=== PATIENT | male | born 1970 | race Caucasian/White ===

== ENCOUNTER 2024-10-17 05:24 | Emergency (ER) | payer OTHER, SELFPAY ==
[2024-10-17] VITALS (35 sets, daily range): BP systolic 131–175; BP diastolic 82–112; PULSE 84–100; RESP 15–18; TEMP 36.7–37.1; O2SAT 95–98
--- NOTE | ~2024-10-17 | CT_ITS ---
EXAMINATION: CT abdomen pelvis w con DATE: 10/17/2024 06:53 INDICATION: Infraumbilical abdominal pain. TECHNIQUE: Computed tomography (CT) of the abdomen and pelvis was performed with 100 mL Omnipaque 350 intravenous contrast. Automated exposure control and iterative reconstruction technique were employe d. The dose-length product was 625.48 mGy-cm. COMPARISON: None. FINDINGS: The visualized portions of the lung bases demonstrate mild atelectasis. No pleural effusion . The heart size is normal. No pericardial effusion. The liver and spleen are normal. There are galls tones in the gallbladder, which is normal in size. The pancreas and adrenal glands are normal. There are cysts in the kidneys measuring up to 10 mm on the right. There are surgical changes in the bowel including colectomy. There are multiple dilated loops of small bowel without focal transition point. There is a small volume of ascites. There are no pathologically enlarged lymph nodes. There is a tota l left hip arthroplasty. There is severe lumbar spondylosis and mild thoracic spondylosis. There is m ild chronic anterior wedging of multiple thoracic vertebral bodies. IMPRESSION: 1. Dilated small bowel without focal transition point, consistent with adynamic ileus versus partial obstruction. 2. Small volume of ascites. Reviewed, dictated and finalized at location A. [facility]
--- NOTE | 2024-10-17 05:51 | ED_ITS ---
HPI - General Adult General Chief complaint: Abdominal Pain Stated complaint: ABD PAIN Time Seen by Provider: 10/17/24 05:50 Source: patient Mode of arrival: ambulatory Limitations: no limitations History of Present Illness HPI narrative: 54-year-old white male with Crohn's complains of abdominal pain that started around noon time yesterday thinks he is having a Crohn's flare. patient is a 4 5/10 pain diffuse abdomen told to sharp. Started around noon yesterday shows Ca and with some constipation no problems voiding no fever shortness of breath chest pain rash or itching swelling or lumps or bumps dizziness weakness or numbness or any other complaints. Related Data Home Medications ?Medication ?Instructions ?Recorded ?Confirmed ?Last Taken ?Type risankizumab-rzaa 360 mg/2.4 mL mg subcut 10/17/24 Unknown History (150 mg/mL) subcut wearable injector (Skyrizi) testosterone cypionate 200 mg/mL mg 10/17/24 Unknown History intramuscular oil Allergies Allergy/AdvReac Type Severity Reaction Status Date / Time No Known Allergies Allergy Unverified 08/27/15 12:20 Review of Systems Review of Systems: All systems reviewed & are unremarkable except as noted in HPI and below Exam Narrative: ?White male patient with no apparent distress.? Head normocephalic, atraumatic.? Eyes conjunctiva pink sclera nonicteric.? Extraocular movements are intact.? Ears externally normal.? Oropharynx is clear with moist mucous membranes without exudates.? Neck is supple nontender no lymphadenopathy.? Back is nontender.? Lungs are clear.? Heart is regular rate and rhythm without murmurs gallops or rubs.? Chest wall nontender. Abdomen is soft With positive bowel sounds. Midline well-healed surgical scar. Mild periumbilical tenderness without rebound. There is no hepatosplenomegaly or masses no CVA tenderness no abdominal bruits.? Extremities no cyanosis clubbing or edema.? Skin is warm and dry without rashes or lesions.? Neurological patient is alert and oriented x4.? Motor and sensory grossly intact.? Gait is normal. Course Vital Signs Vital signs: Vital Signs Temperature 36.7 C 10/17/24 05:27 Pulse Rate 100 10/17/24 05:27 Respiratory Rate 18 10/17/24 05:27 Blood Pressure 159/107 H 10/17/24 05:27 Pulse Oximetry 95 10/17/24 05:27 Oxygen Delivery Room Air 10/17/24 05:27 Temperature 36.7 C 10/17/24 05:27 Pulse Rate 100 10/17/24 05:27 Respiratory Rate 18 10/17/24 05:27 Blood Pressure 159/107 H 10/17/24 05:27 Pulse Oximetry 95 10/17/24 05:27 Oxygen Delivery Room Air 10/17/24 05:27 Medical Decision Making MDM Narrative Medical decision making narrative: ?Patient placed in room: 1 ? History and physical was performed. CB see CMP UA lipase CT abdomen pelvis with IV contrast ordered. Patient given Toradol 30 mg IV Independent Historian: patient External Source Review: Differential Dx includes but not limited to: Medications were Reviewed: Medications given: Independently Interpreted by me: Shared decision Making: Social Situation Impacting Patients Care: Discussed with at change of shift who will accept care of this pl easant patient. DISCHARGE DIAGNOSIS: DISPOSITION : CONDITION AT DISCHARGE: Vital Signs Vital Signs: Vital Signs Temperature 36.7 C 10/17/24 05:27 Pulse Rate 100 10/17/24 05:27 Respiratory Rate 18 10/17/24 05:27 Blood Pressure 159/107 H 10/17/24 05:27 Pulse Oximetry 95 10/17/24 05:27 Oxygen Delivery Room Air 10/17/24 05:27 Temperature 36.7 C 10/17/24 05:27 Pulse Rate 100 10/17/24 05:27 Respiratory Rate 18 10/17/24 05:27 Blood Pressure 159/107 H 10/17/24 05:27 Pulse Oximetry 95 10/17/24 05:27 Oxygen Delivery Room Air 10/17/24 05:27 Discharge Plan Discharge Patient Language: Azerbaijani Follow-up/Referrals: Pete,MD Jasiel [Primary Care Provider] -
[2024-10-17] MEDS: KETOROLAC 30 MG/ML VIAL (*BKC) IV PUSH (06:08)
[2024-10-17 06:13] LABS: Basophils Absolute Auto 0.03 K/mm3 (0.00-0.10); Basophils Percent Auto 0.3 % (0.0-1.0); Eosinophils Absolute Auto 0.14 K/mm3 (0.02-0.50); Eosinophils Percent Auto 1.2 % (1.0-6.0); Hematocrit 49.9 % (40.0-54.0); Hemoglobin 14.9 g/dL (14.0-18.0); Immature Granulocyte Absolute 0.04 K/mm3 (0.00-0.00); Immature Granulocyte Percent A 0.3 % (0.0-0.0); Lymphocytes Absolute Auto 2.48 K/mm3 (1.10-4.50); Lymphocytes Percent Auto 20.7 % (18.0-42.0); Mean Corpuscular HGB Conc 29.9 g/dL (32-36); Mean Corpuscular Hemoglobin 21.5 pg (27.0-31.0); Mean Corpuscular Volume 71.9 fL (78.0-102.0); Mean Platelet Volume 9.3 fl (8.7-11.0); Monocytes Absolute Auto 0.89 K/mm3 (0.10-0.90); Monocytes Percent Auto 7.4 % (2.0-11.0); Neutrophils Absolute Auto 8.42 K/mm3 (1.70-7.20); Neutrophils Percent Auto 70.1 % (50.0-70.0); Platelet Count Result 317 K/mm3 (150-420); Red Blood Count 6.94 M/mm3 (4.70-6.10); Red Cell Distribution Width 20.1 % (11.6-14.4)
[2024-10-17 06:22] LABS: Partial Thromboplastin Time 25.5 Sec (23.9-30.70); Prothrombin Time 10.6 Seconds (9.50-12.1)
[2024-10-17 06:23] LABS: Alanine Aminotransferase 33 U/L (16-63); Albumin Level 3.7 g/dL (3.4-5.0); Alkaline Phosphatase 79 U/L (46-116); Anion Gap 10 mmol/L (4-12); Aspartate Amino Transferase 12 U/L (15-37); Bilirubin,Total 0.6 mg/dL (0.00-1.00); Blood Urea Nitrogen 16 mg/dL (7-18); Calcium 9.3 mg/dL (8.5-10.1); Carbon Dioxide 28 mmol/L (21-32); Chloride 103 mmol/L (98-108); Estimated CRCL calculation 54 ml/min; Estimated Glomerular Filt Rate 53; Glucose 127 mg/dL (70-99); Lipase 26 U/L (16-77); Osmolality Calculated 295 mOsm/kg (285-295); Sodium 141 mmol/L (136-145); Total Protein 7.6 g/dL (6.4-8.2)
[2024-10-17 06:26] LABS: Lactic Acid Reflex 1.5 mmol/L (0.4-2.0)
--- NOTE | 2024-10-17 07:10 | PC.NURSE ---
REPORT TO JIE HIGHTOWER.
[2024-10-17] MEDS: SODIUM CHLORIDE 0.9% IV 1,000 ML 100 ML IV CONT (07:53)
[2024-10-17] MEDS: MORPHINE SULFATE (*CRX) 2 MG/ML INJ IV PUSH (10:17)
--- NOTE | 2024-10-19 12:49 | PC.NURSE ---
preliminary blood cultures x2 reviewed. no growth to date
--- NOTE | 2024-10-23 12:31 | PC.NURSE ---
FINAL BLOOD CULTURE REPORT; NO GROWTH AFTER 5 DAYS.
--- OUTSIDE RECORDS SUMMARY | 2024-10-24 05:25 | XMS_ITS | Encounter Summary ---
Author Organization [facility] Address [address] [place] [address]. [place] [address] [place] [address] Care Team Providers Care Chief Embalmer Name Role Phone Unavailable Primary Care Provider Unavailabl e Encounter Details Date Type Department Care Team (Late st Contact Info) Description 03/23/[address] 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
--- OUTSIDE RECORDS SUMMARY | 2024-10-24 05:25 | XMS_ITS | Encounter Summary ---
Author Organization [facility] Address [address] [place] [address]. [place] [address] [place] [address] Care Team Providers Care Client Service Manager Name Role Phone Jasiel Moise MD Primary Care Provider Aaron Quinones MD Unavailable [phone] JoanieAnthonyAnnette MD Unavailable Reason for Visit * Auth/Cert Specialty Diagnoses / Procedures Referred By Lambert pizarro Referred To Contact Diagnoses DEVIATED SEPTUM, TURBINATE HYPERTROPHY, CHRONIC SINUSITIS J34.2 J34.3 J32.0 Procedures FUSION GUIDED BILATERAL ETHMOIDECTOMY, BILATERAL MAXILLARY ANTROSTOMY, BILATERAL TURBINATE REDUCTION, SEPTOPLASTY Referral ID Status Reason Start Date Expiration Date Visits Re quested Visits Authorized [id number] 1 1 Encounter Details Date Type Department Care Team (Latest Contact Info) Description 01/03/2020 7:21 AM CDT - 01/03/2020 1:19 PM T Hospital Encounter [facility] [place] [address] Aaron Quinones MD [address] [place] [id number] Discharge Disposition: Home or Self Care (Routine Discharge) Social History Tobacco Use Types Packs/Day Years Used Date Smoking Tobacco: Former Cigarettes 0 12/25/1990 - 12/25/2010 Smokeless Tobacco: Never Alcohol Use Standard Drinks/Week Comments Yes 3 (1 standard drink = 0.6 oz pur e alcohol) Sex and Gender Information Value Date Recorded Sex Assigned at Not on file Legal Sex Male 5:59 PM UNDERWRITING ACCOUNT REPRESENTATIVE Gender Identity Not on file Sexual Orientation Not on file documented as of this encounter Last Filed Vital Signs Vital Sign Reading Time Taken Comments Blood Pressure 144/84 01/03/2020 1:14 PM CDT Pulse 80 01/03/2020 1:14 PM CDT Temperature 37.1 ??C (98.7 ??F) 01/03/2020 1:14 PM CD T Respiratory Rate 16 01/03/2020 1:14 PM CDT Oxygen Saturation 94% 01/03/2020 1:14 PM CDT Inhaled Oxygen Concentration - - Weight 82.4 kg (181 lb 10.5 oz) 01/03/2020 7:53 AM CDT Height 175.3 cm (5' 9 ) 01/03/2020 7:53 AM CDT Body Mass Index 26.83 01/03/2020 7:53 AM CDT documented in this encounter Discharge Instructions * Discharge Instructions* Brittney Bailey RN - 01/03/2020 11:25 AM CDT Use nasal saline spray 2-3 times daily for 7-10 days Switch to regular acetaminophen when able Office will call you for follow up appointment in 5-7 days SINUS SURGERY INSTRUCTIONS Do not bend at waist No nose blowing/picking No heavy lifting Avoid using straws Sneeze with your mouth open Change drip pad as needed Avoid injury to nose Ice as needed for pain Because you had anesthesia NO DRIVING FOR 24 HRS/ OR WHILE TAKING NARCOTIC PAIN MEDICATION NO ALCOHOL, NO OPERATING MACHINERY, DO NOT SIGN ANY BINDING CONTRACTS FOR 24 HOURS/ OR WHILE TAKINGNARCOTIC PAIN MEDICATION TAKE PAIN MEDICINE WITH FOOD USE STOOL SOFTENER WHILE ON NARCOTICS AVOID GREASY, FRIED OR SPICY FOODS MUST HAVE A RESPONSIBLE ADULT STAY WITH YOU FOR THE REST OF TODAY AND TONIGHT If you have chest pain, shortness of breath, excessive bleeding or drainage, if you cannot hold down anything to eat or drink, or if you cannot urinate, please call 911 or go to the nearest emergencyroom. If you have fever, pain not controlled by your medication, signs of infection such as redness or discharge or swelling at the site, or any other questions or concerns, please call your surgeon. * Attachments The following attachments cannot be sent through Care Everywhere. * Turbinate Reduction Discharge Instructions (Tristanian) * Septoplasty Discharge Instructions (Tristanian) * Endoscopic Sinus Surgery Discharge Instructions (Tristanian) * General Anesthesia Discharge Instructions (Tristanian) * Hydrocodone and Acetaminophen, ADULT (Tristanian) documented in this encounter Medications at Time of Discharge diphenoxylate-atr opine 2.5-0.025 MG tablet Take 1 tablet by mouth every 6 (six) hours as needed. 11/13/2019 hydrocodone-aceta minophen (NORCO) 5-325 MG tabletIndications :Acute Pain < 7 Day Supply Take 1 tablet by mouth every 4 (four) hours as needed for Pain. Indications: Acute Pain < 7 Day Supply 20 tablet 01/03/2020 ibuprofen 600 MG tablet Take 600 mg by mouth every 6 (six) hours as needed for Pain. testosterone cypionate 200 MG/ML injection Inject 0.75 mLs into the muscle weekly. On monday03/19/2019 valACYclovir 1 g tablet Take 1 tablet by mouth daily as needed. 3 02/21/2019 vedolizumab (ENTYVIO) 300 MG injection Inject 300 mg into the vein Once every eight weeks. 11/26/2018 vitamin D2, ergocalciferol, [address]7401 UNITS capsule Take 1 capsule by mouth monthly. 2 02/21/2019 zolpidem 5 MG tablet Take 1 tablet by mouth nightly as needed. 0 01/25/2019 documented as of this encounter H&P Notes * Aaron Quinones MD - 01/03/2020 7:34 AM CDT Attending Provider: Aaron Quinones MD PCP: JASIEL MOISE MD Edgardo Elkins is an 49-year-old male deviated septum, sinus infections. Reason for Admission: * No active hospital problems. * HPI: See above. Past Medical History: Diagnosis Date ??? Asthma as child ??? Deviated septum ??? JERRELL (obstructive sleep apnea) mild, positional per sleep study 11/05/18 ??? Ulcerative colitis (CMS/HCC) ??? Wears glasses and contacts Allergies: Allergies Allergen Reactions ??? Infliximab Sneezing flushed face Social History Tobacco Use ??? Smoking status: Former Smoker Years: 20.00 Types: Cigarettes Last attempt to quit: 12/25/2010 Years since quittin.0 ??? Smokeless tobacco: Never Used Substance Use Topics ??? Alcohol use: Yes Alcohol/week: 3.0 standard drinks Types: 3 Standard drinks or equivalent per week Past Surgical History: Procedure Laterality Date ??? ILEOSTOMY and reversal ??? JOINT REPLACEMENT Left 2017 hip Family History Problem Relation Name Age of Onset ??? Hypertension Mother ??? Heart Disease Father Travel Exposure: No current facility-administered medications on file prior to encounter. Current Outpatient Medications on File Prior to Encounter Medication Sig ??? ibuprofen 600 MG tablet Take 600 mg by mouth every 6 (six) hours as needed for Pain. ??? vedolizumab (ENTYVIO) 300 MG injection Inject 300 mg into the vein Once every eight weeks. ??? testosterone cypionate 200 MG/ML injection Inject 0.75 mLs into the muscle weekly. On monday ??? valACYclovir 1 g tablet Take 1 tablet by mouth daily as needed. ??? vitamin D2, ergocalciferol, 69584 UNITS capsule Take 1 capsule by mouth monthly. ??? zolpidem 5 MG tablet Take 1 tablet by mouth nightly as needed. Active Problems: * No active hospital problems. * Height 5' 9 (1.753 m), weight 83.9 kg (185 lb). No results found for this visit on 01/03/20. No results found. Labs Reviewed - No data to display Microbiology Results (last 14 days) No results found for the last 336 hours. ROS negative Physical Exam deviated septum. Otherwise negative Assessment: Deviated septum, chronic sinusitis Plan: Septoplasty, turbinoplasty, bilateral maxillary antrostomy and ethmoidectomy. Refer to outpatient HP for full details. AARON QUINONES MD 01/03/2020 documented in this encounter Nursing Notes * Sujata Diallo RN - 01/03/2020 10:11 AM CDT Family updated during the procedure via DJZ fang. documented in this encounter OR Notes * Op Note - Aaron Quinones MD - 01/03/2020 11:01 AM CDT FUSION GUIDED BILATERAL ETHMOIDECTOMY, BILATERAL MAXILLARY ANTROSTOMY, BILATERAL TURBINATE REDUCTION, SEPTOPLASTY Procedure Note Edgardo Elkins 01/03/2020 Surgeon(s): Aaron Quinones MD Supervisor Inspection And Testing: None Pre-Op Diagnosis: DEVIATED SEPTUM, TURBINATE HYPERTROPHY, CHRONIC SINUSITIS J34.2 J34.3 J32.0 Post-Op Diagnosis: Same Procedure(s): FUSION GUIDED BILATERAL ETHMOIDECTOMY, BILATERAL MAXILLARY ANTROSTOMY, BILATERAL TURBINATE REDUCTION, SEPTOPLASTY Anesthesia: General Findings: Bilateral purulent maxillary sinusitis, left septal deviation Complications: None Estimated Blood Loss: 50ml Specimens: None Implants: None Procedure Description: After obtaining informed consent and proper site verification the patient was brought to the operating room and placed on the operating table in the supine position. They were placed under general endotracheal anesthesia by the anesthesia provider. Image guidance was calibrate d and used throughout the case. Afrin soaked cottonoids were then placed bilaterally and the patient was prepped and draped for endoscopic sinus surgery. A timeout was performed and the correct patient and procedure were verified. The nasal cavity was injected with 1% lidocaine with 1-100,000 epinephrine and packed with afrin-soaked cottonoid pledgets. Attention was then directed to the nasal septum. A hemitransfixion incision was made in the left caudal septum and a mucoperichondrial flap was elevated in the usual fashion. The flap was elevated under endoscopic visualization and the remainder of the case was performed with endoscopic assistance.Using a D-knife, an incision was made through the cartilaginous septum with care to preserve the appropriate caudal and dorsal ???L-strut?? of cartilage. The cartilage was then disarticulated from the bony-cartilaginous junction and the deviated cartilage was removed. Further deviated bone and cartilage was removed from the maxillary crest and posterior bony septum with care to avoid injury to the mucoperichondrial flap using a combination of dissection and Yuliet forceps. Next, attention directed to the right sinuses. A ruth probe was used to reflect the uncinate process anteriorly and the maxillary ostia was identified and entered. A backbiter and microdebrider was then used to perform uncinectomy and maxillary antrostomy. Using the microdebrider, the bulla ethmoidalis was then entered and opened up. The posterior ethmoid space was then opened into with microdebrider to the base of the sphenoid. The right maxillary sinus was infected with purulent fluid and lavage performed to irrigate. In an identical fashion, the left nasal passage was injected with lidocaine w/ epinephrine, and themaxillary antrostomy and anterior ethmoidectomy were performed. The left maxillary sinus had an accessory os that was connected to the natural ostia to prevent circular flow. Once both sinus passageswere completed, the inferior turbinate were reduced submucosally using microdebrider. Outfracture was then performed with a freer. Nasopore was placed in the ethmoid cavity bilaterally. Once this was completed, the hemitransfixion incision was closed using simple interrupted 4-0 chromic suture. A quilting stitch to reapproximate the mucoperichondrial flaps was then placed using 4-0 plain gut suture on a Austen needle. Tidwell splints covered in mupirocin ointment were placed in the nasal cavity and secured to the membranous septum using a 3-0 Prolene suture. An gil- gastric tube wasused to decompress the stomach and care of the patient was handed over to anesthesia. The patient was awakened from general anesthesia extubated in the operating room, and transported to the recoveryroom in stable condition without complication. AARON QUINONES MD Date: 01/03/2020 Time: 11:01 AM * Brief Op Note - Aaron Quinones MD - 01/03/2020 11:00 AM CDT [facility] Brief Op HSHSFUSION GUIDED BILATERAL ETHMOIDECTOMY, BILATERAL MAXILLARY ANTROSTOMY, BILATERAL TURBINATE REDUCTION, SEPTOPLASTY Procedure Note Edgardo Palomino Brittni 01/03/2020 0900 Procedure(s) (LRB): FUSION GUIDED BILATERAL ETHMOIDECTOMY, BILATERAL MAXILLARY ANTROSTOMY, BILATERAL TURBINATE REDUCTION, SEPTOPLASTY (N/A) Surgeon(s): Aaron Quinones MD Supervisor Inspection And Testing: None Anesthesia: General Pre-Op Diagnosis: DEVIATED SEPTUM, TURBINATE HYPERTROPHY, CHRONIC SINUSITIS J34.2 J34.3 J32.0 Post-Op Diagnosis: Same Findings: Bilateral purulent maxillary sinusitis, left septal deviation Estimated Blood Loss: 50ml Specimens: ID Type Source Tests Collected by Time A : Right Sinus Contents TISSUE OTHER (type in comments) PATHOLOGY Aaron Quinones MD 01/03/2020 1010 B : Left Sinus Contents TISSUE OTHER (type in comments) PATHOLOGY Aaron Quinones MD 01/03/2020 1011 AARON QUINONES MD Date: 01/03/2020 Time: 11:00 AM * OR PreOp - Theresa Wilson CNP - 12/26/2019 1:59 PM CST Chart reviewed. Per phone interview, patient denies any SOB/CP with 2 FOS or recent changes in activity tolerance in past 6 months. 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 Pt states he woke up combative after first surgery he had. Echo 06/19/19 Sinus rhythm. Borderline concentric left ventricular hypertrophy. Overall left ventricular systolicfunction normal with an EF between 50-55%. Diastolic filling normal. Right ventricle normal in sizeand function. Left atrium mildly dilated. Right atrium not well visualized. Aortic valve is trileaflet, appears structurally normal. No aortic stenosis or regurgitation. Normal mitral valve, tricuspid valve, and pulmonic valve. Aortic root, ascending aorta and aortic arch normal. Pericardium is normal. Exercise treadmill stress test 05/29/19 Normal exercise treadmill stress test with no chest pain. Mooney treadmill score is 12. Cosigned by Thor Leach MD at 12/27/2019 6:54 AM UNDERWRITING ACCOUNT REPRESENTATIVE RWRITING ACCOUNT REPRESENTATIVE RWRITING ACCOUNT REPRESENTATIVE * OR PreOp - Philly aMrques RN - 12/26/2019 12:51 PM CST Patient can climb 2 flights of stairs without chest pain or sob. Exercise tolerance the same as it was 6 months ago. Had stress test maybe last year and echo- due to was having sob/drainage from sinus'- all normal-somewhere in ilir- requested results from pcp See cardiac records- media pcp-neptali Cardio-none States woke up combative after first surgery he had RWRITING ACCOUNT REPRESENTATIVE RWRITING ACCOUNT REPRESENTATIVE RWRITING ACCOUNT REPRESENTATIVE documented in this encounter Plan of Treatment Not on file documented as of this encounter Procedures Procedure Name Priority Date/Time Associated Diagnosis Comments ENDOSCOPIC SINUS SURGERY (SINUSCOPY) 01/03/2020 9:38 AM CDT DEVIATED SEPTUM, TURBINATE HYPERTROPHY, CHRONIC SINUSITIS J34.2 J34.3 J32.0 Case Notes SCHED BY FAX ON 12/17/19 [facility] PHONE ASSESS Special Needs FUSION PROTOCOL, MICRODEBRIDER documented in this encounter Visit Diagnoses Not on filedocumented in this encounter Administered Medications Inactive Administered Medications - up to 3 most recent administrations Medication Order MAR Action Action Date Dose Rate Site fentaNYL (SUBLIMAZE) injection 25 mcg 25 mcg, Intravenous, Every 5 min PRN, Other, Moderate pain (Scale 4-7), 4 doses, Starting on Mon01/03/20 at 1105, Until Mon01/03/20 at 1231, Maximum cumulative dose 100 mcg. Do not administer if patient is overly sedated, SpO2 less than 90%, or Respiratory Rate less than 12. If more than one IV analgesic is ordered per pain level, use in this order: fentaNYL, morphine, HYDROmorphone. If desired pain control is not reached, move to next ordered medication at next dosing interval., PACU Given 01/03/2020 11:44 AM CDT 25 mcg hydrocodone-acetaminophen (NORCO) 5-325 MG tablet 1 tablet 1 tablet, Oral, Once as needed, Mild pain (Scale 1 - 3), 1 dose, Starting on Mon01/03/20 at 1105, Until Mon01/03/20 at 1145, Do not administer if patient is overly sedated, SpO2 less than 90%, or Respiratory Rate less than 12., PACU Given 01/03/2020 11:45 AM CDT 1 tablet lactated ringers infusion at 10 mL/hr, Intravenous, Once, 1 dose, On Mon01/03/20 at 0830 New Bag 01/03/2020 8:15 AM CDT 10 mL/hr lactated ringers infusion at 10 mL/hr, Intravenous, Continuous, Starting on Mon01/03/20 at 0900, Until Mon01/03/20 at 1525, Not to be given to patients with end stage renal disease or dialysis. Infuse at TKO rate, Pre-Op New Bag 01/03/2020 8:05 AM CDT lactated ringers infusion at 100 mL/hr, Intravenous, Continuous, Starting on Mon01/03/20 at 1130, Until Mon01/03/20 at 1525, PACU ondansetron (ZOFRAN-ODT) disintegrating tablet 4 mg 4 mg, Oral, Once, 1 dose, On Mon01/03/20 at 0830 Given 01/03/2020 8:20 AM CDT 4 mg oxymetazoline (AFRIN) 0.05 % nasal spray 2 spray 2 spray, Each Nostril, body recall instructor to O.R., 1 dose, First dose on Mon01/03/20 at 0745, Pre-Op Given 01/03/2020 8:13 AM CDT 2 sprays documented in this encounter Active and Recently Administered Medications Times are shown in CDT. Scheduled Medication Order 01/01/2020 01/02/2020 01/03/2020 ceFAZolin (ANCEF) 2 g in sodium chloride 0.9 % 100 mL IVPB (COMPLETED) 2 g, Intravenous, at 200 mL/hr, body recall instructor to O.R., 1 dose, First dose on Mon01/03/20 at 0745, Pre-Op 1000 (New Bag - Prov ider: Bonifacio Craven CRNA)1005 (Infusion Stop Time - Provider: Bonifacio Craven CRNA)1120 (Anesthesia Volume Adjustment - Provider: Bonifacio Craven CRNA) lactated ringers infusion (COMPLETED) at 10 mL/hr, Intravenous, Once, 1 dose, On Mon01/03/20 at 0830 0815 (New Bag - Prov ider: Kitty Evans RN) ondansetron (ZOFRAN-ODT) disintegrating tablet 4 mg (COMPLETED) 4 mg, Oral, Once, 1 dose, On Mon01/03/20 at 0830 0820 (Given - Provid er: Kitty Evans RN) oxymetazoline (AFRIN) 0.05 % nasal spray 2 spray (COMPLETED) 2 spray, Each Nostril, body recall instructor to O.R., 1 dose, First dose on Mon01/03/20 at 0745, Pre-Op 0813 (Given - Provid er: Kitty Evans RN) Continuous Medication Order 01/01/2020 01/02/2020 01/03/2020 lactated ringers infusion at 10 mL/hr, Intravenous, Continuous, Starting on Mon01/03/20 at 0900, Until Mon01/03/20 at 1525, Not to be given to patients with end stage renal disease or dialysis. Infuse at TKO rate, Pre-Op 0805 (New Bag - Prov ider: Bonifacio Craven CRNA)1120 (Anesthesia Volume Adjustment - Provider: Bonifacio Craven CRNA) lactated ringers infusion at 100 mL/hr, Intravenous, Continuous, Starting on Mon01/03/20 at 1130, Until Mon01/03/20 at 1525, PACU 1130 (Canceled Entry - Provider: Automatic Discharge Provider - Comment: Automatically canceled at discontinue of medication order) PRN Medication Order 01/01/2020 01/02/2020 01/03/2020 fentaNYL (SUBLIMAZE) injection 25 mcg (CANCELED) 25 mcg, Intravenous, Every 5 min PRN, Other, Moderate pain (Scale 4-7), 4 doses, Starting on Mon01/03/20 at 1105, Until Mon01/03/20 at 1231, Maximum cumulative dose 100 mcg. Do not administer if patient is overly sedated, SpO2 less than 90%, or Respiratory Rate less than 12. If more than one IV analgesic is ordered per pain level, use in this order: fentaNYL, morphine, HYDROmorphone. If desired pain control is not reached, move to next ordered medication at next dosing interval., PACU 1144 (Given - Provid er: Ada Waterman RN) hydrocodone-acetaminophen (NORCO) 5-325 MG tablet 1 tablet (COMPLETED) 1 tablet, Oral, Once as needed, Mild pain (Scale 1 - 3), 1 dose, Starting on Mon01/03/20 at 1105, Until Mon01/03/20 at 1145, Do not administer if patient is overly sedated, SpO2 less than 90%, or Respiratory Rate less than 12., PACU 1145 (Given - Provid er: Ada Waterman RN) lidocaine-EPINEPHrine 1 %-1:[id number] injection (CANCELED) As needed, Starting on Mon01/03/20 at 1050, Until Mon01/03/20 at 1113, Intra-Op 1050 (Given - Provid er: Aaron Quinones MD) mupirocin (BACTROBAN) 2 % ointment (CANCELED) As needed, Starting on Mon01/03/20 at 1051, Until Mon01/03/20 at 1113, Intra-Op 1051 (Given - Provid er: Aaron Quinones MD - Comment: APPLIED TO TIDWELL SPLINT) oxymetazoline (AFRIN) 0.05 % nasal spray (CANCELED) As needed, Starting on Mon01/03/20 at 0930, Until Mon01/03/20 at 1113, Intra-Op 0930 (Given - Provid er: Sujata Diallo RN - Comment: Patient was instructed to self-administer in each nostril two sprays) oxymetazoline (AFRIN) 0.05 % nasal spray (CANCELED) As needed, Starting on Mon01/03/20 at 1010, Until Mon01/03/20 at 1113, Intra-Op 1010 (Given - Provid er: Aaron Quinones MD - Comment: 30 ml used to soak cottonoids) sodium chloride 0.9% infusion (COMPLETED) Continuous PRN, Starting on Mon01/03/20 at 1045, Until Mon01/03/20 at 1045, Intra-Op 1045 (New Bag - Prov ider: Aaron Quinones MD - Comment: Irrigation) documented in this encounter Care Teams Client Service Manager Relationship Specialty Start Date End Date Jasiel Moise MD [address] [place] [phone] PCP - General FAMILY PRACTICE 04/04/19 Aaron Quinones MD [address] [place], [place] [id number] OTOLARYNGOLOGY 12/26/19 Annette Sena MD [address] [place] [phone] INTERNAL MEDICINE 12/26/19 documented as of this encounter
--- OUTSIDE RECORDS SUMMARY | 2024-10-24 05:25 | XMS_ITS | Continuity of Care Document ---
Author Name [facility] Organization [facility] Care Team Providers Care Medical Art Therapist Name Role Phone [facility] Unavailable Unavailable Plan of Care List of future care activities from [facility] Affairs facilities. Additional future care activities may be listed in the Assessment and Plan section. Date/Time Care Activity Care Activity Detail Facili ty 11/12/2024 AMBULATORY - MEDICINE AMBULATORY - MEDICI [facility]
--- OUTSIDE RECORDS SUMMARY | 2024-10-24 05:25 | XMS_ITS | Encounter Summary ---
Author Organization [facility] Address [address] [place] [address]. [place] [address] [place] [address] Care Team Providers Care Apparatus Lineman Name Role Phone Jasiel Freeman MD Primary Care Provider Nils Pineda MD Unavailable [phone] JoanieAnthonyAnnette MD Unavailable Reason for Visit * Auth/Cert Specialty Diagnoses / Procedures Referred By Lambert pizarro Referred To Contact Diagnoses DEVIATED SEPTUM, TURBINATE HYPERTROPHY, CHRONIC SINUSITIS J34.2 J34.3 J32.0 Procedures FUSION GUIDED BILATERAL ETHMOIDECTOMY, BILATERAL MAXILLARY ANTROSTOMY, BILATERAL TURBINATE REDUCTION, SEPTOPLASTY Referral ID Status Reason Start Date Expiration Date Visits Re quested Visits Authorized [id number] 1 1 Encounter Details Date Type Department Care Team (Latest Contact Info) Description 01/03/2020 7:21 AM CDT - 01/03/2020 11:59 PM T Hospital Encounter [facility] [place] [address] Nils Pineda MD [address] [place] [phone] Discharge Disposition: Home or Self Care (Routine Discharge) Social History Tobacco Use Types Packs/Day Years Used Date Smoking Tobacco: Former Cigarettes 0 12/25/1990 - 12/25/2010 Smokeless Tobacco: Never Alcohol Use Standard Drinks/Week Comments Yes 3 (1 standard drink = 0.6 oz pur e alcohol) Sex and Gender Information Value Date Recorded Sex Assigned at Not on file 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 11/26/2018 vitamin D2, ergocalciferol, 83806 UNITS capsule Take 1 capsule by mouth monthly. 2 02/21/2019 zolpidem 5 MG tablet Take 1 tablet by mouth nightly as needed. 0 01/25/2019 documented as of this encounter Plan of Treatment Not on file documented as of this encounter Procedures Procedure Name Priority Date/Time Associated Diagnosis Comments BASIC METABOLIC PANEL Routine 01/03/2020 7:31 AM CDT Preop examination CBC W/DIFF AUTOMATED Routine 01/03/2020 7:31 AM CDT Preop examination documented in this encounter Results * (ABNORMAL) BASIC METABOLIC PANEL (01/03/2020 7:31 AM CDT) GLUCOSE 91 70 - 99 MG/DL 01/03/2020 8:00 AM CDT [facility] BUN 14 7 - 18 MG/DL 01/03/2020 8:00 AM CDT [facility] CREATININE S/P/B 1.33(H) 0.7 - 1.3 MG/DL 01/03/2020 8:00 AM CDT [facility] SODIUM S/P/B 138 136 - 145 MMOL/L 01/03/2020 8:00 AM CDT [facility] POTASSIUM S/P/B 4.4 3.5 - 5.1 MMOL/L 01/03/2020 8:00 AM T [facility] CHLORIDE S/P/B 108 100 - 108 MMOL/L 01/03/2020 8:00 AM CDT [facility] CO2 27.7 21 - 32 MMOL/L 01/03/2020 8:00 AM CDT [facility] CALCIUM S/P/B 8.7 8.5 - 10.1 MG/DL 01/03/2020 8:00 AM T [facility] ANION GAP 2.3(L) 5 - 15 MMOL/L 01/03/2020 8:00 AM T [facility] BUN CREATININE RATIO 10.5 6 - 26 01/03/2020 8:00 AM T [facility] EGFR NON-AFR. AMER. 62(L) >90 ML/MIN/1.7 3 M2 01/03/2020 8:00 AM T [facility] EGFR AFR. AMER. 72(L) >90 ML/MIN/1.7 3 M2 01/03/2020 8:00 AM T [facility] Comment: NOTE: eGFR is not calculated for patients <18 years of age. This is an estimated GFR (CKD EPI) and should not be used for calculating drug doses. 01/03/2020 7:31 AM CDT Theresa Wilson [facility] Final Resu lt [facility] [address] [place] [address], [place] [phone] * (ABNORMAL) CBC W/DIFF AUTOMATED (01/03/2020 7:31 AM CDT) [facility] WBC 6.9 4.5 - 11.0 x10'3/uL 01/03/2020 7:42 AM CDT [facility] RBC 6.17(H) 4.70 - 6.10 x10'6/uL 01/03/2020 7:42 AM CDT [facility] HGB 16.6 14.0 - 18.0 G/DL 01/03/2020 7:42 AM CDT [facility] HCT 52.6 43.0 - 54.0 % 01/03/2020 7:42 AM CDT [facility] MCV 85.3 80.0 - 94.0 FL 01/03/2020 7:42 AM CDT [facility] MCH 26.9(L) 27.0 - 31.0 PG 01/03/2020 7:42 AM CDT [facility] MCHC 31.6(L) 32.0 - 36.0 G/DL 01/03/2020 7:42 AM CDT [facility] RDW 13.7 11.5 - 14.5 % 01/03/2020 7:42 AM CDT [facility] PLT 343 130 - 400 x10'3/uL 01/03/2020 7:42 AM CDT [facility] MPV 9.8 9.3 - 12.2 FL 01/03/2020 7:42 AM CDT [facility] DIFFERENTIAL TYPE AUTOMATED DIFFERENTIAL 01/03/2020 7:42 AM CDT [facility] NEUTROPHILS % 68.1 % 01/03/2020 7:42 AM CDT [facility] LYMPHOCYTES % 18.8 % 01/03/2020 7:42 AM CDT [facility] MONOCYTES % 9.3 % 01/03/2020 7:42 AM CDT [facility] EOSINOPHILS 2.8 % 01/03/2020 7:42 AM CDT [facility] BASOPHILS 0.9 % 01/03/2020 7:42 AM CDT [facility] IMMATURE GRANS % 0.1 % 01/03/20 20 7:42 AM CDT [facility] ABS. NEUTROPHILS TOTAL 4.67 1.80 - 7.70 x10'3/uL 01/03/2020 7:42 AM CDT [facility] ABS. LYMPHOCYTES 1.29 1.00 - 4.80 x10'3/uL 01/03/2020 7:42 AM CDT [facility] ABS. MONOCYTES 0.64 0.30 - 0.82 x10'3/uL 01/03/2020 7:42 AM CDT [facility] ABS. EOSINOPHILS 0.19 0.04 - 0.54 x10'3/uL 01/03/2020 7:42 AM CDT [facility] ABS. BASOPHILS 0.06 0.01 - 0.08 x10'3/uL 01/03/2020 7:42 AM CDT [facility] ABS. IMMATURE GRANULOCYTES 0.01 0.00 - 0.49 x10'3/uL 01/03/2020 7:42 AM CDT [facility] 01/03/2020 7:31 AM CDT us Theresa Wilson [facility] Final Resu lt [facility] [address] [place] [address], [place] [phone] documented in this encounter Visit Diagnoses Diagnosis Preop examination Preoperative examination, unspecified documented in this encounter Care Teams Apparatus Lineman Relationship Specialty Start Date End Date Jasiel Freeman MD [address] [place] [phone] PCP - General FAMILY PRACTICE 04/04/19 Nils Pineda MD [address] [facility] [place] [place] [address] OTOLARYNGOLOGY 12/26/19 Annette Sena MD [facility] [facility] [place] [address] INTERNAL MEDICINE 12/26/19 documented as of this encounter
--- OUTSIDE RECORDS SUMMARY | 2024-10-24 05:25 | XMS_ITS | Encounter Summary ---
Author Organization [facility] Address [facility]. [place], [place] [address] [place] [address] Care Team Providers Care Motor Operator Name Role Phone Jasiel Freeman MD Primary Care Provider [phone]- [phone] Reason for Referral * (Routine) - Closed Specialty Diagnoses / Procedures Referred By Lambert pizarro Referred To Contact Diagnoses Dyspnea on exertion Procedures Spirometry with bronchodilator Jasiel Freeman MD [address] [place] [phone] Phone: tel: fax: Referral ID Status Reason Start Date Expiration Date Visits Re quested Visits Authorized [id number] Closed 04/17/2019 05/17/2020 1 1 Reason for Visit * Procedure (Routine) - Closed Specialty Diagnoses / Procedures Referred By Lambert pizarro Referred To Contact Diagnoses Dyspnea on exertion Procedures Complete PFT (pre/post [place], Lung Vol, Diff Capacity) (70650, 62861, 32460, 07330) Jasiel Freeman MD [address] [place] [phone] Phone: tel: fax: [place] [address] Phone: tel: Referral ID Status Reason Start Date Expiration Date V isits Requested Visits Authorized [id number] Closed Pulmonary Function Test 04/04/2019 05/04/2020 1 1 Encounter Details Date Type Department Care Team (Latest Contact Info) Description 04/17/2019 8:00 AM CDT - 04/17/2019 11:59 PM CDT Hospital Encounter [place] [address] [place] [address] Jasiel Freeman MD [address] [place] [phone] Discharge Disposition: Home or Self Care (Routine Discharge) Social History Tobacco Use Types Packs/Day Years Used Date Smoking Tobacco: Never Assessed Sex and Gender Information Value Date Recorded Sex Assigned at Not on file Legal Sex Male 5:59 PM [employer] Gender Identity Not on file Sexual Orientation Not on file documented as of this encounter Last Filed Vital Signs Vital Sign Reading Time Taken Comments Blood Pressure - - Pulse - - Temperature - - Respiratory Rate - - Oxygen Saturation - - Inhaled Oxygen Concentration - - Weight 86.6 kg (190 lb 15 oz) 04/17/2019 8:39 AM CDT Height 175.3 cm (5' 9 ) 04/17/2019 8:39 AM CDT Body Mass Index 28.2 04/17/2019 8:39 AM CDT documented in this encounter Medications at Time of Discharge testosterone cypionate 200 MG/ML injection Inject 0.75 mLs into the muscle weekly. On monday03/19/2019 valACYclovir 1 g tablet Take 1 tablet by mouth daily as needed. 3 02/21/2019 vedolizumab (ENTYVIO) 300 MG injection Inject 300 mg into the vein Once every eight weeks. 11/26/2018 vitamin D2, ergocalciferol, 48700 UNITS capsule Take 1 capsule by mouth monthly. 2 02/21/2019 zolpidem 5 MG tablet Take 1 tablet by mouth nightly as needed. 0 01/25/2019 documented as of this encounter Plan of Treatment Not on file documented as of this encounter Procedures Procedure Name Priority Date/Time Associated Diagnosis Comments PULMONARY FUNCTION TEST Routine 05/13/20 4:41 PM CDT Dyspnea on exertion SPIROMETRY WITH BRONCHODILATOR Routine 04/17/2019 11:51 AM CDT Dyspnea on exertion documented in this encounter Results * Complete PFT (pre/post [place], Lung Vol, Diff Capacity) (09341, 15260, 07091, 23381) (05/13/2019 4:41 PM CDT) 05/13/2019 4:41 PM CDT Narrative ESCRIPTION - 05/18/2019 10:29 AM CDT DIAGNOSIS: ??Shortness of breath. PROCEDURE: ??Spirometry before and after bronchodilators. Baseline spirometry shows mild airway obstruction. ??FEV1 is 2.95 liters or 79%, FVC is 94%, and FEV1/FVC of 0.69. ??With the bronchodilators, patient has a good response. ??FEV1 improved to 3.31 liters. ??This is a 12% improvement, overall consistent with mild airway obstruction with good response to bronchodilators. CONCLUSION: ??Spirometry is acceptable and reproducible, overall consistent with mild airway obstruction. ??Baseline FEV1 is 79%, good response to bronchodilators. ??FEV1 improved by 12%. ?? Clinical correlation is required. Celia Mckenzie MD [employer] [facility] D: ??05/13/2019 04:41 PM #[id number] T: ??05/13/2019 07:00 PM /NTS us Jasiel Freeman MD PFT ORDERABLES Final Resul t ESCRIPTION documented in this encounter Visit Diagnoses Diagnosis Dyspnea on exertion Other dyspnea and respiratory abnormality documented in this encounter Administered Medications Inactive Administered Medications - up to 3 most recent administrations Medication Order MAR Action Action Date Dose Rate Site albuterol (PROVENTIL) (2.5 MG/3ML) 0.083% nebulizer solution 2.5 mg 2.5 mg, Nebulization, Once, 1 dose, On Mon04/17/19 at 0900 Given 04/17/2019 9:09 AM CDT 2.5 mg documented in this encounter Care Teams Motor Operator Relationship Specialty Start Date End Date Jasiel Freeman MD [address] [place] [phone] PCP - General FAMILY PRACTICE 04/04/19 documented as of this encounter
--- OUTSIDE RECORDS SUMMARY | 2024-10-24 05:25 | XMS_ITS | Encounter Summary ---
Author Organization [facility] Address [facility] [place] [address] [place] [address] Care Team Providers Care Real Estate Legal Secretary Name Role Phone Jasiel Freeman MD Primary Care Provider [phone]- [phone] Reason for Referral * Procedure (Routine) - Closed Specialty Diagnoses / Procedures Referred By Contac t Referred To Contact Diagnoses Dyspnea on exertion Procedures Complete PFT (pre/post [place], Lung Vol, Diff Capacity) (72158, 71466, 83122, 67411) Jasiel Freeman MD [address] [place] [phone] Phone: tel: fax: [address] [address] Phone: tel: Referral ID Status Reason Start Date Expiration Date V isits Requested Visits Authorized [id number] Closed Pulmonary Function Test 04/04/2019 05/04/2020 1 1 Encounter Details Date Type Department Care Team (Late st Contact Info) Description 04/04/2019 Transcribe Orders [facility] Pre Access Team [address] [place] [address] Jasiel Freeman MD [address] [place] [phone] Social History Tobacco Use Types Packs/Day Years Used Date Smoking Tobacco: Never Assessed Sex and Gender Information Value Date Recorded Sex Assigned at Not on file 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 Celia Mckenzie MD [facility] [employer] D: ??05/13/2019 04:41 PM #[id number] T: ??05/13/2019 07:00 PM /NTS us Jasiel Freeman MD PFT ORDERABLES Final Resul t ESCRIPTION documented in this encounter Visit Diagnoses Diagnosis Dyspnea on exertion- Primary Other dyspnea and respiratory abnormality Dyspnea on exertion Other dyspnea and respiratory abnormality documented in this encounter Care Teams Real Estate Legal Secretary Relationship Specialty Start Date End Date Jasiel Freeman MD [address] [place] [phone] PCP - General FAMILY PRACTICE 04/04/19 documented as of this encounter
--- OUTSIDE RECORDS SUMMARY | 2024-10-24 05:25 | XMS_ITS | Clinical Summary ---
Author Organization [facility] Address [facility] [place] [address] [place] [address] Care Team Providers Care Leather Softener Name Role Phone Jasiel Freeman MD Primary Care Provider Nils Pineda MD Unavailable [phone] Annette Sena MD Unavailable Allergies Active Allergy Reactions Criticality Noted Date Comments Infliximab Sneezing Low 04/17/2019 flushed face Medications vedolizumab (ENTYVIO) 300 MG injection Inject 300 mg into the vein Once every eight weeks. 11/26/2018 Active testosterone cypionate 200 MG/ML injection Inject 0.75 mLs into the muscle weekly. On monday03/19/2019 Active vitamin D2, ergocalciferol, 59662 UNITS capsule Take 1 capsule by mouth monthly. 2 02/21/2019 Active valACYclovir 1 g tablet Take 1 tablet by mouth daily as needed. 3 02/21/2019 Active zolpidem 5 MG tablet Take 1 tablet by mouth nightly as needed. 0 01/25/2019 Active ibuprofen 600 MG tablet Take 600 mg by mouth every 6 (six) hours as needed for Pain. Active diphenoxylate-a tropine 2.5-0.025 MG tablet Take 1 tablet by mouth every 6 (six) hours as needed. 11/13/2019 Active hydrocodone-latha taminophen (NORCO) 5-325 MG tabletIndicatio ns:Acute Pain < 7 Day Supply Take 1 tablet by mouth every 4 (four) hours as needed for Pain. 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 Gender Identity Not on file Sexual Orientation Not on file Last Filed Vital Signs Vital Sign Reading [...] Mass Index 26.83 01/03/2020 7:53 AM CDT Plan of Treatment Health Maintenance Due Date Last Done Comments Colorectal Cancer Screening Colonoscopy (10 Years) 1970 Annual Physical 1973 Hepatitis C 1988 DTaP, Tdap and Td Vaccines ( 1 - Tdap) 1989 Hepatitis B Vaccines (1 of 3 - 19+ 3-dose series) 1989 Zoster Vaccines (1 of 2) 2020 COVID-19 Vaccine (2023-2 5 season) 2024 Influenza Adult (#1) 2024 Pneumococcal Vaccine: Pediat rics (0 to 5 Years) and At-Risk Patients (6 to 64 Years) Aged Out 10/30/2017 No longer eligi ble based on patient's age to complete this topic Meningococcal Vaccine Aged Out No sandra dae eligible based on patient's age to complete this topic RSV Immunizations Under 20 Months Aged Out No longer eligible based on patient's age to complete this topic Insurance [employer] Care Teams Leather Softener Relationship Specialty Start Date End Date Jasiel Freeman MD [address] [place] [phone] PCP - General FAMILY PRACTICE 04/04/19 Nils Pineda MD [facility] [place] [address] OTOLARYNGOLOGY 12/26/19 Annette Sena MD [facility] [place] [address] INTERNAL MEDICINE 12/26/19
--- OUTSIDE RECORDS SUMMARY | 2024-10-24 05:25 | XMS_ITS | Encounter Summary ---
Author Organization [facility] Address [address] [place] [address]. [place] [address] [place] [address] Care Team Providers Care Financial Aid Manager Name Role Phone Jasiel Freeman MD Primary Care Provider [phone] Nils Pineda MD Unavailable [phone] [facility] Unavailable Encounter Details Date Type Department Care Team (Latest Contact Info) Description 02/22/2023 Travel Social History Tobacco Use Types Packs/Day Years Used Date Smoking Tobacco: Former Cigarettes 0 12/25/1990 - 12/25/2010 Smokeless Tobacco: Never Alcohol Use Standard Drinks/Week Comments Yes 3 (1 standard drink = 0.6 oz pur e alcohol) Sex and Gender Information Value Date Recorded Sex Assigned at Not on file 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 No / Unsure 02/22/2023 9:42 AM CDT documented as of this encounter Plan of Treatment Not on file documented as of this encounter Visit Diagnoses Not on filedocumented in this encounter Care Teams Financial Aid Manager Relationship Specialty Start Date End Date Jasiel Freeman MD [address] [place] [phone] PCP - General FAMILY PRACTICE 04/04/19 Nils Pineda MD [address] [place] [address] OTOLARYNGOLOGY 12/26/19 Annette Sena MD [address] [place] [address] INTERNAL MEDICINE 12/26/19 documented as of this encounter
--- OUTSIDE RECORDS SUMMARY | 2024-10-24 05:25 | XMS_ITS | Encounter Summary ---
Author Organization [facility] Address [facility] [place] [address] [place] [address] Care Team Providers Care International Marketing Intern Name Role Phone Jasiel Freeman MD Primary Care Provider [phone] Nils Pineda MD Unavailable [phone] Annette Sena MD Unavailable Encounter Details Date Type Department Care Team (Late st Contact Info) Description 12/26/2019 Prep for Procedure [facility] [place] [address] Theresa Wilson, FLOATMAN [address] [place] [address] Anesthesia Record Procedure Summary Procedure Name Responsible Anesthesiologist Anesthesia Start Time Anesthesia Stop Time FUSION GUIDED BILATERAL ETHMOIDECTOMY, BILATERAL MAXILLARY ANTROSTOMY, BILATERAL TURBINATE REDUCTION, SEPTOPLASTY (Nose) Nelli Malone MD 01/03/20 0938 01/03/20 1121 Events Date Time Event Comment 01/03/2020 0816 0816 AN Anesthesia Prepped 0923 AN RADIOLOGICAL METALLURGIST Prepped 0938 An Start Patient ID and consent checked and patient reassessed. 0940 An Start Data 0943 Preoxygenation 0945 An Induction 0950 An Intubation 0953 Anesthesia Ready 1011 Anes Handoff 1015 Quick Note CO2 absorber ex changed. 1026 Anes Handoff 1104 An Emergence 1109 An Extubation 1112 Face Mask Applied 1114 an stop data 1121 Post Anesthetic Care Handoff I completed my handoff to the receiving nurse during which we: 1. Identified the patient 2. Identified the responsible provider 3. Reviewed the pertinent medical history 4. Discussed the surgical course 5. Reviewed intra-op anesthesia management and issues during anesthesia 6. Set expectations for post-procedure period 7. Allowed opportunity for questions and acknowledgement of understanding. 1121 An Stop Meds * Agents No agents on file. * Blood No blood administrations on file. Lines, Drains, and Airways Type Details Placement Removal Peripheral IV Placement Date: 12/21 01/09; Placement Time: 0805; Placed Outside of This Facility?: No; Size: 18 G; Orientation: Left; Location: Hand; Site Prep: Chlorhexidine; Local Anesthetic: None; Insertion attempts: 1; Ultrasound-guided Placement?: No; Patient Tolerance: Tolerated well; Removal Date: 01/03/20; Removal Time: 1249; Removal Reason: Patient Discharged 01/03/20 0805 by Kitty Evans RN 01/03/20 1249 by Rafaela Myoa RN ETT Placement Date: 12/21 01/09; Placement Time: 0950; Placed Outside of This Facility?:No; Mask Ventilate: Prior to intubation, Medium; Size (mm) : 8; Endotracheal: Oral, Stylet used; Blade Type: MAC 3; Placement Method: Direct Laryngoscopy (blade type in comment); View Grade: 2; Viewable Anatomy: Epiglottis, Arytenoid; Insertion Attempts: 2 (First attempt w/o stylet.); Placement Verified By: Capnography, Auscultation, Chest Rise; Placed By: RADIOLOGICAL METALLURGIST; Extubation Assessment: Suctioned, Tolerated well, Patient spontaneously breathing, Able to swallow, Atraumatic, Other (comment) (Coughing); Removal Date: 01/03/20; Removal Time: 1109; Removal Person: RADIOLOGICAL METALLURGIST; Removal Reason: End of Case 01/03/20 0950 by Bonifacio Craven CRNA 01/03/20 1109 by Bonifacio Craven CRNA Surgical/Incision 01/03/20; 1011; Surg ical Wound; Nose; Bilateral nares: Nasopore, Tidwell Splint with Mupirocin Ointment secured with suture, 2x2, paper tape; 01/03/20; 1520 01/03/20 1011 by Sujata Diallo RN 01/03/20 1520 by Automatic Discharge Provider documented in this encounter Social History Tobacco Use Types Packs/Day Years Used Date Smoking Tobacco: Former Cigarettes 0 12/25/1990 - 12/25/2010 Smokeless Tobacco: Never Alcohol Use Standard Drinks/Week Comments Yes 3 (1 standard drink = 0.6 oz pur e alcohol) Sex and Gender Information Value Date Recorded Sex Assigned at Not on file 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 Gender Identity Not on file Sexual Orientation Not on file documented as of this encounter Plan of Treatment Not on file documented as of this encounter Results * (ABNORMAL) BASIC METABOLIC PANEL (01/03/2020 7:31 AM CDT) [facility] GLUCOSE 91 70 - 99 MG/DL 01/03/2020 8:00 AM CDT [facility] BUN 14 7 - 18 MG/DL 01/03/2020 8:00 AM CDT [facility] CREATININE S/P/B 1.33(H) 0.7 - 1.3 MG/DL 01/03/2020 8:00 AM CDT [facility] SODIUM S/P/B 138 136 - 145 MMOL/L 01/03/2020 8:00 AM CDT [facility] POTASSIUM S/P/B 4.4 3.5 - 5.1 MMOL/L 01/03/2020 8:00 AM CDT [facility] CHLORIDE S/P/B 108 100 - 108 MMOL/L 01/03/2020 8:00 AM CDT [facility] CO2 27.7 21 - 32 MMOL/L 01/03/2020 8:00 AM CDT [facility] CALCIUM S/P/B 8.7 8.5 - 10.1 MG/DL 01/03/2020 8:00 AM CDT [facility] ANION GAP 2.3(L) 5 - 15 MMOL/L 01/03/2020 8:00 AM CDT [facility] BUN CREATININE RATIO 10.5 6 - 26 01/03/2020 8:00 AM CDT [facility] EGFR NON-AFR. AMER. 62(L) >90 ML/MIN/1.7 3 M2 01/03/2020 8:00 AM CDT [facility] EGFR AFR. AMER. 72(L) >90 ML/MIN/1.7 3 M2 01/03/2020 8:00 AM CDT [facility] Comment: NOTE: eGFR is not calculated for patients <18 years of age. This is an estimated GFR (CKD EPI) and should not be used for calculating drug doses. 01/03/2020 7:31 AM CDT Theresa Wilson [facility] Final Resu lt [facility] [address] [place] [id number], * (ABNORMAL) CBC W/DIFF AUTOMATED (01/03/2020 7:31 AM CDT) WBC 6.9 4.5 - 11.0 x10'3/uL 01/03/2020 7:42 AM CDT [facility] RBC 6.17(H) 4.70 - 6.10 x10'6/uL 01/03/2020 7:42 AM CDT [facility] HGB 16.6 14.0 - 18.0 G/DL 01/03/2020 7:42 AM CDT [facility] HCT 52.6 43.0 - 54.0 % 01/03/2020 7:42 AM CDT [facility] MCV 85.3 80.0 - 94.0 FL 01/03/2020 7:42 AM CDT [facility] MCH 26.9(L) 27.0 - 31.0 PG 01/03/2020 7:42 AM CDT [facility] MCHC 31.6(L) 32.0 - 36.0 G/DL 01/03/2020 7:42 AM CDT [facility] RDW 13.7 11.5 - 14.5 % 01/03/2020 7:42 AM CDT [facility] PLT 343 130 - 400 x10'3/uL 01/03/2020 7:42 AM CDT [facility] MPV 9.8 9.3 - 12.2 FL 01/03/2020 7:42 AM CDT [facility] DIFFERENTIAL TYPE AUTOMATED DIFFERENTIAL 01/03/2020 7:42 AM CDT [facility] NEUTROPHILS % 68.1 % 01/03/2020 7:42 AM CDT [facility] LYMPHOCYTES % 18.8 % 01/03/2020 7:42 AM CDT [facility] MONOCYTES % 9.3 % 01/03/2020 7:42 AM CDT [facility] EOSINOPHILS 2.8 % 01/03/2020 7:42 AM CDT [facility] BASOPHILS 0.9 % 01/03/2020 7:42 AM CDT [facility] IMMATURE GRANS % 0.1 % 01/03/20 20 7:42 AM CDT [facility] ABS. NEUTROPHILS TOTAL 4.67 1.80 - 7.70 x10'3/uL 01/03/2020 7:42 AM CDT [facility] ABS. LYMPHOCYTES 1.29 1.00 - 4.80 x10'3/uL 01/03/2020 7:42 AM CDT [facility] ABS. MONOCYTES 0.64 0.30 - 0.82 x10'3/uL 01/03/2020 7:42 AM CDT [facility] ABS. EOSINOPHILS 0.19 0.04 - 0.54 x10'3/uL 01/03/2020 7:42 AM CDT [facility] ABS. BASOPHILS 0.06 0.01 - 0.08 x10'3/uL 01/03/2020 7:42 AM CDT [facility] ABS. IMMATURE GRANULOCYTES 0.01 0.00 - 0.49 x10'3/uL 01/03/2020 7:42 AM CDT [facility] 01/03/2020 7:31 AM CDT Theresa Wilson [facility] Final Resu lt [facility] [address] [place] [address], documented in this encounter Visit Diagnoses Diagnosis Preop examination- Primary Preoperative examination, unspecified documented in this encounter Care Teams International Marketing Intern Relationship Specialty Start Date End Date Jasiel Freeman MD [address] [place] [phone] PCP - General FAMILY PRACTICE 04/04/19 Nils Pineda MD [facility] [place] [address] OTOLARYNGOLOGY 12/26/19 Annette Sena MD [address] [place] [address] INTERNAL MEDICINE 12/26/19 documented as of this encounter
--- OUTSIDE RECORDS SUMMARY | 2024-10-24 05:25 | XMS_ITS | Encounter Summary ---
Author Organization [facility] Address [facility] [place] [address] [place] [address] Care Team Providers Care Molder Fitting Name Role Phone Jasiel Freeman MD Primary Care Provider [phone] Nils Pineda MD Unavailable [phone] Annette Sena MD Unavailable Encounter Details Date Type Department Care Team (Latest Contact Info) Description 12/26/2019 Travel Social History Tobacco Use Types Packs/Day Years Used Date Smoking Tobacco: Former Cigarettes 0 12/25/1990 - 12/25/2010 Smokeless Tobacco: Never Alcohol Use Standard Drinks/Week Comments Yes 3 (1 standard drink = 0.6 oz pur e alcohol) Sex and Gender Information Value Date Recorded Sex Assigned at Not on file 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
--- OUTSIDE RECORDS SUMMARY | 2024-10-24 05:25 | XMS_ITS | Encounter Summary ---
Author Organization [facility] Address [facility] [place] [address] [place] [address] Care Team Providers Care Chair Pad Maker Name Role Phone Jasiel Moise MD Primary Care Provider Nils Pineda MD Unavailable [phone] JoanieAnthonyAnnette MD Unavailable Encounter Details Date Type Department Care Team (Latest Contact Info) Description 02/22/2023 9:45 AM CDT - 02/22/2023 11:59 PM CDT Hospital Encounter [facility] [address] [facility] [place] [address] Jasiel Moise MD [address] [place] [phone] Discharge Disposition: Home or Self Care (Routine Discharge) Social History Tobacco Use Types Packs/Day Years Used Date Smoking Tobacco: Former Cigarettes 0 12/25/1990 - 12/25/2010 Smokeless Tobacco: Never Alcohol Use Standard Drinks/Week Comments Yes 3 (1 standard drink = 0.6 oz pur e alcohol) Sex and Gender Information Value Date Recorded Sex Assigned at Not on file 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 No / Unsure 02/22/2023 9:42 AM CDT documented as of this encounter Medications at [...] every eight weeks. 11/26/2018 vitamin D2, ergocalciferol, [address] UNITS capsule Take 1 capsule by mouth monthly. 2 02/21/2019 zolpidem 5 MG tablet Take 1 tablet by mouth nightly as needed. 0 01/25/2019 documented as of this encounter Plan of Treatment Not on file documented as of this encounter Procedures Procedure Name Priority Date/Time Associated Diagnosis Comments XR LUMB SPINE 3V Routine 02/22/2023 10:5 9 AM CDT Low back pain documented in this encounter Results * XR LUMB SPINE 3V (02/22/2023 10:59 AM CDT) Anatomical Region Laterality Modality Spine Radiographic Barbara ging 02/22/2023 3:42 PM CDT Impressions 02/22/2023 3:42 PM CDT IMPRESSION: No acute findings Ordered By: JASIEL MOISE Interpreted By: Gurpreet Thacker MD, 02/22/2023 3:42 PM Narrative 02/22/2023 3:42 PM CDT 3 VIEWS OF THE LUMBAR SPINE Clinical History: Low back pain Comparison: None 3 views of the lumbar spine demonstrate no evidence of fracture or malalignment. The vertebral body heights are symmetric and within normal limits throughout. The intervertebral disc heights demonstrate symmetry with a normal overall appearance. The facets are normally aligned. The spinous processes and transverse processes appear normal Procedure Note Gurpreet Thacker MD - 02/22/2023 3 VIEWS OF THE LUMBAR SPINE Clinical History: Low back pain Comparison: None 3 views of the lumbar spine demonstrate no evidence of fracture ormalalignment. The vertebral body heights are symmetric and within normallimits throughout. The intervertebral disc heights demonstrate symmetrywith a normal overall appearance. The facets are normally aligned. Thespinous processes and transverse processes appear normal IMPRESSION: No acute findings Ordered By: JASIEL MOISE Interpreted By: Gurpreet Thacker MD, 02/22/2023 3:42 PM us Jasiel Moise MD GENERAL IMAGING Final Resul t documented in this encounter Visit Diagnoses Diagnosis Low back pain Lumbago documented in this encounter Care Teams Chair Pad Maker Relationship Specialty Start Date End Date Jasiel Moise MD [address] [place] [phone] PCP - General FAMILY PRACTICE 04/04/19 Nils Pineda MD [address] [place] [phone] OTOLARYNGOLOGY 12/26/19 Annette Sena MD [address] [place] [phone] INTERNAL MEDICINE 12/26/19 documented as of this encounter
--- OUTSIDE RECORDS SUMMARY | 2024-10-24 05:25 | XMS_ITS | Encounter Summary ---
Author Organization [facility] Address [facility] [place] [address] [place] [address] Care Team Providers Care Tilesetter Name Role Phone Jasiel Moise MD Primary Care Provider Aaron Quinones MD Unavailable [phone] Annette Sena MD Unavailable Reason for Visit * Auth/Cert Specialty Diagnoses / Procedures Referred By Lambert pizarro Referred To Contact Diagnoses DEVIATED SEPTUM, TURBINATE HYPERTROPHY, CHRONIC SINUSITIS J34.2 J34.3 J32.0 Procedures FUSION GUIDED BILATERAL ETHMOIDECTOMY, BILATERAL MAXILLARY ANTROSTOMY, BILATERAL TURBINATE REDUCTION, SEPTOPLASTY Referral ID Status Reason Start Date Expiration Date Visits Re quested Visits Authorized [id number] 1 1 Encounter Details Date Type Department Care Team (Late st Contact Info) Description 01/03/2020 9:00 AM CDT - 01/03/2020 11:19 AM CDT Surgery [facility] [place] [address] Aaron Quinones MD [address] [place] [address] FUSION GUIDED BILATERAL ETHMOIDECTOMY, BILATERAL MAXILLARY ANTROSTOMY, BILATERAL TURBINATE REDUCTION, SEPTOPLASTY Surgery Details Date/Time Status Location OR Service Patient Class Case Class Case Type Trauma Case? 01/03/2020 9:00 AM Posted [facility] OR 10 ENT Short Stay/Outpat ient Surgery E - Elective No Panel 1 Procedure LRB Anes Op Region Wound Class Comments FUSION GUIDED BILATERAL ETHMOIDECTOMY, BILATERAL MAXILLARY ANTROSTOMY, BILATERAL TURBINATE REDUCTION, SEPTOPLASTY N/A General Nose Clean Contaminated Surgeon Surgeon Role Service Panel Aaron Quinones MD Primary ENT 1 Case Notes SCHED BY FAX ON 12/17/19 [facility] PHONE ASSESS Special Needs FUSION PROTOCOL, MICRODEBRIDER documented in this encounter Social History Tobacco Use Types Packs/Day Years Used Date Smoking Tobacco: Former Cigarettes 0 12/25/1990 - 12/25/2010 Smokeless Tobacco: Never Alcohol Use Standard Drinks/Week Comments Yes 3 (1 standard drink = 0.6 oz pur e alcohol) Sex and Gender Information Value Date Recorded Sex Assigned at Not on file 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 * Turbinate Reduction Discharge Instructions (Swiss) * Septoplasty Discharge Instructions (Swiss) * Endoscopic Sinus Surgery Discharge Instructions (Swiss) * General Anesthesia Discharge Instructions (Swiss) * Hydrocodone and Acetaminophen, ADULT (Swiss) documented in this encounter Medications at Time [...] every eight weeks. 11/26/2018 vitamin D2, ergocalciferol, [address] UNITS capsule Take 1 capsule by mouth [...] daily as needed. ??? vitamin D2, ergocalciferol, [address] UNITS capsule Take 1 capsule by mouth [...] CDT Family updated during the procedure via [employer] fang. documented in this encounter OR Notes * Op Note - Aaron Quinones MD - 01/03/2020 11:01 AM CDT FUSION GUIDED BILATERAL ETHMOIDECTOMY, BILATERAL MAXILLARY ANTROSTOMY, BILATERAL TURBINATE REDUCTION, SEPTOPLASTY Procedure Note Edgardo Elkins 01/03/2020 Surgeon(s): Aaron Quinones MD Grades 7 And 8 Teacher: None Pre-Op Diagnosis: DEVIATED SEPTUM, TURBINATE HYPERTROPHY, [...] flap using a combination of dissection and Hermilo-Nuria forceps. Next, attention directed to the right [...] REDUCTION, SEPTOPLASTY Procedure Note Edgardo Elkins 01/03/2020 0900 Procedure(s) (LRB): FUSION GUIDED BILATERAL ETHMOIDECTOMY, BILATERAL MAXILLARY ANTROSTOMY, BILATERAL TURBINATE REDUCTION, SEPTOPLASTY (N/A) Surgeon(s): Aaron Quinones MD Grades 7 And 8 Teacher: None Anesthesia: General Pre-Op Diagnosis: DEVIATED SEPTUM, [...] Per phone interview, patient denies having a acoustic engineer. Pt states he woke up combative after [...] Thor Leach MD at 12/27/2019 6:54 AM LUSTER APPLICATOR ER APPLICATOR ER APPLICATOR * OR PreOp - Philly Marques RN - 12/26/2019 12:51 PM CST Patient can climb 2 flights of stairs without chest pain or sob. Exercise tolerance the same as it was 6 months ago. Had stress test maybe last year and echo- due to was having sob/drainage from sinus'- all normal-somewhere in [place]- requested results from pcp See cardiac records- media pcp-[facility] Cardio-none States woke up combative after first surgery he had ER APPLICATOR ER APPLICATOR ER APPLICATOR documented in this encounter Plan of Treatment Not on file documented as of this encounter Procedures Procedure Name Priority Date/Time Associated Diagnosis Comments ENDOSCOPIC SINUS SURGERY (SINUSCOPY) 01/03/2020 9:38 AM CDT DEVIATED SEPTUM, TURBINATE HYPERTROPHY, CHRONIC SINUSITIS J34.2 J34.3 J32.0 Case Notes SCHED BY FAX ON 12/17/19 [facility] PHONE ASSESS Special Needs FUSION PROTOCOL, MICRODEBRIDER [...] Given 01/03/2020 11:44 AM CDT 25 mcg hydrocodone-acetaminop hen (NORCO) 5-325 MG tablet 1 tablet 1 [...] at 1130, Until Mon01/03/20 at 1525, PACU lidocaine-EPINEPHrine 1 %-1:[id number] injection As needed, Starting on Mon01/03/20 at 1050, Until Mon01/03/20 at 1113, Intra-Op Given 01/03/2020 10:50 AM CDT 9 mLs Operative Site mupirocin (BACTROBAN) 2 % ointment As needed, Starting on Mon01/03/20 at 1051, Until Mon01/03/20 at 1113, Intra-Op Given 01/03/2020 10:51 AM CDT 1 Application Operative Site ondansetron (ZOFRAN-ODT) disintegrating tablet 4 mg 4 mg, Oral, Once, 1 dose, On Mon01/03/20 at 0830 Given 01/03/2020 8:20 AM CDT 4 mg oxymetazoline (AFRIN) 0.05 % nasal spray 2 spray 2 spray, Each Nostril, scallop cutter machine to O.R., 1 dose, First dose on Mon01/03/20 at 0745, Pre-Op Given 01/03/2020 8:13 AM CDT 2 sprays oxymetazoline (AFRIN) 0.05 % nasal spray As needed, Starting on Mon01/03/20 at 0930, Until Mon01/03/20 at 1113, Intra-Op Given 01/03/2020 9:30 AM CDT 2 sprays oxymetazoline (AFRIN) 0.05 % nasal spray As needed, Starting on Mon01/03/20 at 1010, Until Mon01/03/20 at 1113, Intra-Op Given 01/03/2020 10:10 AM CDT 1 spray sodium chloride 0.9% infusion Continuous PRN, Starting on Mon01/03/20 at 1045, Until Mon01/03/20 at 1045, Intra-Op New Bag 01/03/2020 10:45 AM CDT 25 mLs Operative Site documented in this encounter Active and Recently Administered Medications Times are shown in CDT. Scheduled Medication Order 01/01/2020 01/02/2020 01/03/2020 ceFAZolin (ANCEF) 2 g in sodium chloride 0.9 % 100 mL IVPB (COMPLETED) 2 g, Intravenous, at 200 mL/hr, scallop cutter machine to O.R., 1 dose, First dose on [...] 2 spray (COMPLETED) 2 spray, Each Nostril, scallop cutter machine to O.R., 1 dose, First dose on [...] Provid er: Ada Waterman RN) lidocaine-EPINEPHrine 1 %-1:[id number] injection (CANCELED) As needed, Starting on Mon01/03/20 [...] Irrigation) documented in this encounter Care Teams Tilesetter Relationship Specialty Start Date End Date Jasiel Moise MD [address] [place] [phone] PCP - General FAMILY PRACTICE 04/04/19 Aaron Quinones MD [facility] [place], [place] [id number] OTOLARYNGOLOGY 12/26/19 Annette Sena MD [facility] [place] [address] INTERNAL MEDICINE 12/26/19 documented as of this encounter
--- OUTSIDE RECORDS SUMMARY | 2024-10-24 05:25 | XMS_ITS | Encounter Summary ---
Author Organization [facility] Address [facility] [place] [address] [place] [address] Care Team Providers Care Account Service Associate Name Role Phone Jasiel Freeman MD Primary Care Provider Nils Pineda MD Unavailable [phone] Annette Sena MD Unavailable Reason for Visit * Auth/Cert Specialty Diagnoses / Procedures Referred By Lambert pizarro Referred To Contact Diagnoses DEVIATED SEPTUM, TURBINATE HYPERTROPHY, CHRONIC SINUSITIS J34.2 J34.3 J32.0 Procedures FUSION GUIDED BILATERAL ETHMOIDECTOMY, BILATERAL MAXILLARY ANTROSTOMY, BILATERAL TURBINATE REDUCTION, SEPTOPLASTY Referral ID Status Reason Start Date Expiration Date Visits Re quested Visits Authorized [id number] 1 1 Encounter Details Date Type Department Care Team (Late st Contact Info) Description 01/03/2020 9:38 AM CDT Anesthesia Event [facility] [place], [place] [id number] Nelli Jaimes MD [address] [facility] [address] [id number] Theresa Wilson, UNDERWRITING TECHNICIAN [place] [phone] Anesthesia Record Procedure Summary Procedure Name Responsible Anesthesiologist Anesthesia Start Time Anesthesia Stop Time FUSION GUIDED BILATERAL ETHMOIDECTOMY, BILATERAL MAXILLARY ANTROSTOMY, BILATERAL TURBINATE REDUCTION, SEPTOPLASTY (Nose) Nelli Malone MD 01/03/20 0938 01/03/20 1121 Events Date Time Event Comment 01/03/2020 0816 0816 AN Anesthesia Prepped 0923 AN CLOTH HANDLER Prepped 0938 An Start Patient ID and [...] acknowledgement of understanding. 1121 An Stop Meds Name Total midazolam 2 mg/2 mL injection 2 mg fentaNYL (SUBLIMAZE) 100 mcg/2 mL inject ion 50 mcg lidocaine (PF) (XYLOCAINE) 2% injection 50 mg propofol (DIPRIVAN) 200 mg/20 mL injecti on 180 mg rocuronium (ZEMURON) 50 mg/5 mL injectio n 40 mg ondansetron (ZOFRAN) 4 mg/2 mL injection 4 mg ceFAZolin (ANCEF) 2 g in sodium chloride 0.9 % 100 mL IVPB 2 g dexamethasone (DECADRON) 4 mg/mL injecti on 10 mg sugammadex (BRIDION) 200 mg/2 mL injecti on 175 mg lactated ringers infusion 600 mL * Agents Name O2 N2O Air Inspired Sevoflurane Sevoflurane * Blood No blood administrations on file. [...] Kitty Evans RN 01/03/20 1249 by Rafaela R Griffin, RN ETT Placement Date: 12/21 01/09; Placement Time: 0950; Placed Outside of This Facility?:No; Mask Ventilate: Prior to intubation, Medium; Size (mm) : 8; Endotracheal: Oral, Stylet used; Blade Type: MAC 3; Placement Method: Direct Laryngoscopy (blade type in comment); View Grade: 2; Viewable Anatomy: Epiglottis, Arytenoid; Insertion Attempts: 2 (First attempt w/o stylet.); Placement Verified By: Capnography, Auscultation, Chest Rise; Placed By: CLOTH HANDLER; Extubation Assessment: Suctioned, Tolerated well, Patient spontaneously breathing, Able to swallow, Atraumatic, Other (comment) (Coughing); Removal Date: 01/03/20; Removal Time: 1109; Removal Person: CLOTH HANDLER; Removal Reason: End of Case 01/03/20 0950 [...] on file 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 Gender Identity Not on file Sexual Orientation Not on file documented as of this encounter OR Notes * Anesthesia Postprocedure Evaluation - Nelli Malone MD - 01/03/2020 2:43 PM CDT Anesthesia Post-op Note Edgardo Elkins Procedure(s): FUSION GUIDED BILATERAL ETHMOIDECTOMY, BILATERAL MAXILLARY ANTROSTOMY, BILATERAL TURBINATE REDUCTION, SEPTOPLASTY (N/A Nose) Anesthesia type: general Vitals: 01/03/20 1314 BP: (!) 144/84 Vitals: 01/03/20 1314 Pulse: 80 Vitals: 01/03/20 1314 Resp: 16 Vitals: 01/03/20 1314 Temp: 37.1 ??C Vitals: 01/03/20 1314 SpO2: 94% Patient Location: Phase II/Outpatient Level of Consciousness: awake, alert and oriented Pain Management: adequate analgesia Airway Patency: patent Respiratory Status: spontaneous ventilation, nonlabored ventilation and room air Cardiovascular Status: hemodynamically stable Post-Op Nausea: none Postoperative Hydration: euvolemic Complications: no anesthesia complication * Anesthesia Postprocedure Evaluation - Nelli Malone MD - 01/03/2020 2:40 PM CDT Anesthesia Post-op Note Edgardo Elkins Procedure(s): FUSION GUIDED BILATERAL ETHMOIDECTOMY, BILATERAL MAXILLARY ANTROSTOMY, BILATERAL TURBINATE REDUCTION, SEPTOPLASTY (N/A Nose) Anesthesia type: general Vitals: 01/03/20 1314 BP: (!) 144/84 Vitals: 01/03/20 1314 Pulse: 80 Vitals: 01/03/20 1314 Resp: 16 Vitals: 01/03/204 Temp: 37.1 ??C Vitals: 01/03/20 1314 SpO2: 94% Patient Location: PACU Level of Consciousness: awake, alert and oriented Pain Management: adequate analgesia Airway Patency: patent Respiratory Status: spontaneous ventilation, unassisted and nonlabored ventilation Cardiovascular Status: hemodynamically stable Post-Op Nausea: none Postoperative Hydration: euvolemic Complications: no anesthesia complication Comments: Patient evaluated prior to discharge from PACU. * Anesthesia Preprocedure Evaluation - Nelli Malone MD - 01/03/2020 7:52 AM CDT Anesthesia ROS/MED History Reviewed: Patient summary , Family history anesthesia, Anesthesia history , Medications , Labs , Unchecked boxes are not applicable Pre-Anesthetic State: alert, awake and responds appropriately no history of anesthetic complications Pulmonary (+) sleep apnea, asthma Cardiovascular Exercise tolerance:good Neuro/Psych neg neuro/psych ROS GI/Hepatic/Renal Comments: UC Endo/Other neg endo/other ROS GENERAL COMMENTS Past Surgical History: No date: ILEOSTOMY Comment: and reversal 2017: JOINT REPLACEMENT; Left Comment: hip Past Medical History: No date: Asthma Comment: as child No date: Deviated septum No date: JERRELL (obstructive sleep apnea) Comment: mild, positional per sleep study 11/05/18 No date: Ulcerative colitis (CMS/HCC) No date: Wears glasses Comment: and contacts Physical Evaluation Airway Mallampati: II TM Distance: >3 FB Neck ROM: normal Comment: High arched pallate Dental Pulmonary Pulmonary exam normal Cardiovascular Cardiovascular exam normal Other findings: Blood pressure 123/78, pulse 82, temperature 36.8 ??C, temperature source Oral, resp. rate 16, height 5' 9 (1.753 m), weight 82.4 kg (181 lb 10.5 oz), SpO2 99 %. 01/03/20 0731 WBC 6.9 RBC 6.17* HGB 16.6 HCT 52.6 PLT 343 Anesthesia Plan ASA 2 Intravenous Induction Anesthesia type: general Discussed potential risks of General Anesthesia including but not limited to corneal abrasion, visual impairment or visual loss, mouth injury, dental damage, sore throat, hoarseness, esophageal injury, awareness under anesthesia, nerve injury due to positioning, aspiration, pneumonia, stroke, cardiac event, adverse drug reactions and . GETA Informed Consent Anesthetic plan and risks discussed with patient of whom consent was obtained. . documented in this encounter Plan of Treatment Not on file documented as of this encounter Visit Diagnoses Not on filedocumented in this encounter Administered Medications Inactive Administered Medications - up to 3 most recent administrations Medication Order MAR Action Action Date Dose Rate Site ceFAZolin (ANCEF) 2 g in sodium chloride 0.9 % 100 mL IVPB 2 g, Intravenous, at 200 mL/hr, call circuit worker to O.R., 1 dose, First dose on Mon01/03/20 at 0745, Pre-Op New Bag 01/03/2020 10:00 AM CDT 2 g dexamethasone (DECADRON) injection PRN, Starting on Mon01/03/20 at 1018, Until Mon01/03/20 at 1121, Anesthesia Intra-Op Given 01/03/2020 10:18 AM CDT 10 mg fentaNYL (SUBLIMAZE) injection Intravenous, PRN, Starting on Mon01/03/20 at 1009, Until Mon01/03/20 at 1121, Anesthesia Intra-Op Given 01/03/2020 10:09 AM CDT 50 mcg lactated ringers infusion at 10 mL/hr, Intravenous, Continuous, Starting on Mon01/03/20 at 0900, Until Mon01/03/20 at 1525, Not to be given to patients with end stage renal disease or dialysis. Infuse at TKO rate, Pre-Op New Bag 01/03/2020 8:05 AM CDT lidocaine (PF) (XYLOCAINE) 2 % injection Intravenous, PRN, Starting on Mon01/03/20 at 0945, Until Mon01/03/20 at 1121, Anesthesia Intra-Op Given 01/03/2020 9:45 AM CDT 50 mg midazolam (VERSED) injection Intravenous, PRN, Starting on Mon01/03/20 at 0933, Until Mon01/03/20 at 1121, Anesthesia Intra-Op Given 01/03/2020 9:33 AM CDT 2 mg ondansetron (ZOFRAN) injection Intravenous, PRN, Starting on Mon01/03/20 at 1057, Until Mon01/03/20 at 1121, Anesthesia Intra-Op Given 01/03/2020 10:57 AM CDT 4 mg propofol (DIPRIVAN) IV bolus Intravenous, PRN, Starting on Mon01/03/20 at 0945, Until Mon01/03/20 at 1121, Anesthesia Intra-Op Given 01/03/2020 9:45 AM CDT 180 mg rocuronium (ZEMURON) injection Intravenous, PRN, Starting on Mon01/03/20 at 0945, Until Mon01/03/20 at 1121, Anesthesia Intra-Op Given 01/03/2020 9:45 AM CDT 40 mg sugammadex (BRIDION) injection PRN, Starting on Mon01/03/20 at 1101, Until Mon01/03/20 at 1121, Anesthesia Intra-Op Given 01/03/2020 11:01 AM CDT 175 mg documented in this encounter Care Teams Account Service Associate Relationship Specialty Start Date End Date Jasiel Freeman MD [address] [place] [phone] PCP - General FAMILY PRACTICE 04/04/19 Nils Pineda MD [address] [facility] [place], [place] [phone] OTOLARYNGOLOGY 12/26/19 Annette Sena MD [facility] [facility] [place] [address] INTERNAL MEDICINE 12/26/19 documented as of this encounter
--- OUTSIDE RECORDS SUMMARY | 2024-10-24 05:25 | XMS_ITS | Encounter Summary ---
Author Organization [facility] Address [facility] [place] [address] [place] [address] Care Team Providers Care Crime Scene Photographer Name Role Phone Jasiel Freeman MD Primary Care Provider Nils Pineda MD Unavailable [phone] Annette Sena MD Unavailable Encounter Details Date Type Department Care Team (Latest Contact Info) Description 01/03/2020 Travel Social History Tobacco Use Types Packs/Day Years Used Date Smoking Tobacco: Former Cigarettes 0 12/25/1990 - 12/25/2010 Smokeless Tobacco: Never Alcohol Use Standard Drinks/Week Comments Yes 3 (1 standard drink = 0.6 oz pur e alcohol) Sex and Gender Information Value Date Recorded Sex Assigned at Not on file 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
--- OUTSIDE RECORDS SUMMARY | 2024-10-24 05:26 | XMS_ITS | Encounter Summary ---
Author Organization [facility] Healthcare Address [address] [place] [address] Care Team Providers Care Deli Cutter Slicer Name Role Phone Martin Hopper MD Primary Care Provider + Encounter Details Date Type Department Care Team (Latest Contact Info) Description 06/19/2017 8:17 AM CDT - 06/19/2017 11:59 PM CDT Hospital Encounter 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 Gender Identity Not on file Sexual Orientation Not on file documented as of this encounter Discharge Disposition Disposition Code Departure Means Destination Discharge to home or self care documented in this encounter Plan of Treatment Not on file documented as of this encounter Procedures Procedure Name Priority Date/Time Associated Diagnosis Comments XR HIP 2+ VW Routine 06/19/2017 1:33 PM CDT documented in this encounter Results * XR Hip 2+ VW (06/19/2017 1:33 PM CDT) Anatomical Region Laterality Modality N/A Radiographic Barbara ging 06/19/2017 1:33 PM CDT Narrative 06/19/2017 1:33 PM CDT MIQUEL ADAM M.D. F FINAL REPORT ACC# ??Date Time ??Exam [id number] Jun 19, 2017 08:33:00 [id number] Hip Uni ??and ??Pel if done 2-3v L EXAMINATION: ?Left hip unilateral and pelvis if performed 2 or 3 views HISTORY: ??Left hip osteoarthritis FINDINGS: ?? AP view of the pelvis and crosstable lateral view of the left hip are submitted for interpretation. No prior examination is available for comparison. There is osteonecrosis of the left femoral head with collapse and severe secondary osteoarthritis. There is right femoral head osteonecrosis without collapse and mild hip osteoarthritis IMPRESSION: ?? 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 Requested By: OWEN GOLD M.D. Dictated By: ?? MIQUEL ADAM M.D. F ??on Jun 19 2017 ??8:37A This document has been electronically signed by: Luis Enrique SANTACRUZ on Jun 19 2017 ??8:37A [id number] Enrique SANTACRUZ FINAL REPORT Attending: ??NI, ??OWEN Requesting: ??NI, ??OWEN Requesting Fax: ?? Attending Fax: ?? Attending ID: ??[id number] Requesting ID: ??[id number] Report To 1 ID: ??[id number] ? Report To 1 Name: ??, ?? Report To 1 FAX: ?? NextGen Order #: ?? Procedure Note Miscellaneous, Not In File - 08/20/2017 Luis Enrique SANTACRUZ FINAL REPORT ACC# Date Time Exam [id number] Jun 19, 2017 08:33:00 [id number] Hip Uni and Pel if done 2-3v L EXAMINATION: Left hip unilateral and pelvis if performed 2 or 3 views HISTORY: Left hip osteoarthritis FINDINGS: AP view of the pelvis and crosstable lateral view of the left hip are submitted for interpretation. No prior examination is available for comparison. There is osteonecrosis of the left femoral head with collapse and severe secondary osteoarthritis. 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 Requested By: OWEN GOLD M.D. Dictated By: Luis Enrique SANTACRUZ on Jun 19 2017 8:37A This document has been electronically signed by: Luis Enrique SANTACRUZ on Jun 19 2017 8:37A [id number] Luis Enrique ADAM FINAL REPORT Attending: OWEN GOLD Requesting: OWEN GOLD Requesting Fax: Attending Fax: Attending ID: [id number] Requesting ID: [id number] Report To 1 ID: [id number] Report To 1 Name: , Report To 1 FAX: NextGen Order #: Owen Gold MD IMG XR PROCEDURES Edited Re sult - Final documented in this encounter Visit Diagnoses Not on filedocumented in this encounter Care Teams Deli Cutter Slicer Relationship Specialty [place] [id number] [place] [address] PCP - General 06/19/17 06/26/17 documented as of this encounter
--- OUTSIDE RECORDS SUMMARY | 2024-10-24 05:26 | XMS_ITS | Encounter Summary ---
Author Organization [facility] Healthcare Address [address] [place] [address] Care Team Providers Care Securities Dealer Name Role Phone Unavailable Primary Care Provider Unavailabl e Encounter Details Date Type Department Care Team (Latest Contact Info) Description 08/22/2012 5:41 PM CDT - 08/22/2012 11:59 PM CDT Hospital Encounter [facility] [place] [address] [facility] [place] [address] Other and unspecified hyperlipidemia; Other testicular hypofunction Social History Tobacco Use Types Packs/Day Years Used Date Smoking Tobacco: Never Assessed Sex and Gender Information Value Date Recorded Sex Assigned at Not on file 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
--- OUTSIDE RECORDS SUMMARY | 2024-10-24 05:26 | XMS_ITS | Encounter Summary ---
Author Organization [facility] Address [address] [place] [address] [address] [place] [address] Care Team Providers Care Point Of Sale Associate Name Role Phone Jasiel Freeman MD Primary Care Provider Reason for Visit * Reason Onset Date Comments Covid-19 Home Monitoring 08/20/2021 Enrollm ent Day 1 Encounter Details Date Type Department Care Team (Late st Contact Info) Description 08/20/2021 Telephone [facility] Accountable Care Organization [address] [place] [phone] Celine Parker CMA [address] [place] [phone] Covid-19 Home Monitoring (Enrollment Day 1) Social History Tobacco Use Types Packs/Day Years Used Date Smoking Tobacco: Former Sex and Gender Information Value Date Recorded Sex Assigned at Not on file 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 The patient was contacted via phone for enrollment in the program, but could not be reached to accept or decline. Next program call due: 08/21/21 * Telephone Encounter - Celine Parker CMA - 08/20/2021 10:37 AM CDT COVID Home Monitoring Enrollment - No Response This patient was identified as a candidate for the [facility]/ COVID-19 home monitoring program. The patient was contacted via phone for enrollment in the program, but could not be reached to accept or decline. 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
--- OUTSIDE RECORDS SUMMARY | 2024-10-24 05:26 | XMS_ITS | Encounter Summary ---
Author Organization [facility] Healthcare Address [address] [place] [id number] Care Team Providers Care Child Welfare Social Worker Name Role Phone Jasiel Freeman MD Primary Care Provider [phone] Reason for Visit * Reason Comments Flank Pain Patient presents tod ay with complaints of right sided flank pain. Sx onset yesterday into today. Pain is off and on. No issues breathing. No known fevers. Ibuprofen taken OTC for relief. Patient denies any specific injury to cause pain. Encounter Details Date Type Department Care Team (Late st Contact Info) Description 05/10/2024 7:15 PM CDT Office Visit 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 [employer] Gender Identity Not on file Sexual Orientation Not on file documented as of this encounter Last Filed Vital Signs Vital Sign Reading Time Taken Comments Blood Pressure 142/86 05/10/2024 7:01 PM CDT Pulse 83 05/10/2024 7:01 PM CDT Temperature 36.9 ??C (98.5 ??F) 05/10/2024 7:01 PM CD T Respiratory Rate 18 05/10/2024 7:01 PM CDT Oxygen Saturation 97% 05/10/2024 7:01 PM CDT Inhaled Oxygen Concentration - - Weight 86.4 kg (190 lb 6.4 oz) 05/10/2024 7:01 P M CDT Height 175.3 cm (5' 9 ) 05/10/2024 7:01 PM CDT Body Mass Index 28.12 05/10/2024 7:01 PM CDT documented in this encounter Patient Instructions * Patient Instructions* Elsie Brown NP - 05/10/2024 7:15 PM CDT Push fluids Take flomax once daily May take ibuprofen up to 2400 mg daily or naproxen up to 880mg daily ( do not take both), may take acetaminophen up to 4000 mg daily with either of these Go to ER with worsening pain, vomiting, fever, chills, inability to urinate or empty your bladder Call pcp on Monday documented in this encounter Ordered Prescriptions Prescription Sig Dispense Quantity Refills Last Filled Start Date End Date ondansetron (ZOFRAN) 4 mg tabletIndications: Flank pain Take 2 tablets (8 mg total) by mouth every 8 (eight) hours as needed for nausea or vomiting 6 tablet 05/10/2024 tamsulosin (FLOMAX) 0.4 mg extended release capsuleIndications :Flank pain Take 1 capsule (0.4 mg total) by mouth daily for 5 days 5 capsule 05/10/2024 documented in this encounter Progress Notes * Elsie Brown NP - 05/10/2024 7:15 PM CDT Images from the original note were not included. Subjective/Objective Patient ID: Edgardo Elkins is a 53 y.o. male. Chief Complaint Flank Pain (Patient presents today with complaints of right sided flank pain. Sx onset yesterday into today. Pain is off and on. No issues breathing. No known fevers. Ibuprofen taken OTC for relief. Patient denies any specific injury to cause pain. ) Pt presents to complaining of right mid back/kidney pain. Patient states pain began yesterday. He felt an occasional twinge while he was riding on a 4 [address] with his grandson. This afternoon is when the pain became pretty bad. He states it comes in waves. He rates the pain as 8/10 at the worst. He gets nauseous when the pain is this high but has not had any vomiting. He rates the pain 3/10 now, aching. He states the waves of severe pain last for about 10-15 minutes. He feels it in the right side sometimes as well. He denies any new medications. He has been drinking plenty of fluids. He is prone to dehydration due to not having most of his colon. He states when he drinks things everything goes right through him . He denies seeing any blood in the urine. He denies decreased urination or difficulty with urination. No burning with urination. He denies fever. No history of kidney stones. Flank Pain Review of Systems Genitourinary: Positive for flank pain. All systems reviewed and are negative or non contributory for this patient's presentation today other than as stated in the HPI. Physical Exam Vitals reviewed. Constitutional: General: He is not in acute distress. Appearance: He is not ill-appearing or toxic-appearing. HENT: Head: Normocephalic. Cardiovascular: Rate and Rhythm: Normal rate and regular rhythm. Heart sounds: Normal heart sounds. Pulmonary: Effort: Pulmonary effort is normal. No respiratory distress. Breath sounds: Normal breath sounds. Abdominal: Palpations: Abdomen is soft. Tenderness: There is no abdominal tenderness. There is no right CVA tenderness or left CVA tenderness. Skin: General: Skin is warm and dry. Neurological: General: No focal deficit present. Mental Status: He is alert and oriented to person, place, and time. Psychiatric: Mood and Affect: Mood normal. Behavior: Behavior normal. Thought Content: Thought content normal. Vitals: 05/10/24 1901 BP: 142/86 BP Location: Right arm Patient Position: Sitting Pulse: 83 Resp: 18 Temp: 36.9 ??C (98.5 ??F) TempSrc: Temporal SpO2: 97% Weight: 86.4 kg (190 lb 6.4 oz) Height: 175.3 cm (5' 9 ) Assessment/Plan Urinalysis shows small blood. No leukocytes or nitrites. Will send for culture to rule out infection. Patient does not want to go to ER. Advised patient we can not rule out kidney stones here. Thighspatient he can try taking Flomax daily and pushing fluids. If pain worsens in any way or if he begins to have difficulty with urination, run fever, vomiting he is to go to ER. Report condition to PCPon Monday even if symptoms have resolved. Ondansetron prescribed for nausea Patient given ketorolac injection in the [facility] Care Diagnoses and all orders for this visit: Flank pain (Primary) - POCT urinalysis dipstick - Urine culture Urine, clean voided; Future - tamsulosin (FLOMAX) 0.4 mg extended release capsule; Take 1 capsule (0.4 mg total) by mouth dailyfor 5 days - ondansetron (ZOFRAN) 4 mg tablet; Take 2 tablets (8 mg total) by mouth every 8 (eight) hours as needed for nausea or vomiting - ketorolac (TORADOL) 60 mg/2 mL intramuscular injection 30 mg Recent Results (from the past 24 hour(s)) POCT urinalysis dipstick Collection Time: 05/10/24 7:56 PM Result Value Ref Range Color, Urine, POC Dark Yellow Clarity, ur, POC Cloudy (A) Clear Glucose, ur, POC Negative Negative MG/DL Bilirubin, ur, POC Small Negative, Small, Moderate, Large Ketones, ur, POC Trace (A) Negative Specific [place], POC 1.030 1.003 - 1.030 Blood, ur, POC Small (A) Negative pH, ur, POC 6.0 5.0 - 8.0 Protein, ur, POC 30. (A) Negative Urobilinogen, urine, POC 0.2 0.2 - 1.0 mg/dL Nitrite, ur, POC Negative Negative Leukocytes, ur, POC Negative Negative Lot Number [id number] Patient Education: Disposition Treatment plan including expectations, follow up, and return precautions discussed with patient/parent, verbalizes understanding. Medication dosage, use, and potential adverse reactions discussed with patient/parent. Advised to follow up with PCP if symptoms do not resolve as expected or sooner if condition worsens. Signs/symptoms warranting ER evaluation reviewed. Patient and/or guardian was given an opportunity to ask questions, questions answered. This office note has been partially dictated using Allovue software, and as a result portions of the record may have been created with this software. Occasional wrong-word or '[id number]' substitutions may have occurred due to the inherent limitations of voice recognition software. Read the chartcarefully and recognize, using context, where substitutions have occurred Elsie Brown NP documented in this encounter Plan of Treatment Not on file documented as of this encounter Procedures Procedure Name Priority Date/Time Associated Diagnosis Comments POCT URINALYSIS DIPSTICK Routine 05/10/2024 7:56 PM CDT Flank pain documented in this encounter Results * Urine culture Urine, clean voided (05/10/2024 7:57 PM CDT) Report Final Report: Less than 100,000 colonies/mL (clinically insignificant growth based on current clinical standards) Comment:Testing performed by : [facility], [address] [place]., [address] Organism (CLINICALLY INSIGNIFICANT GROWTH [place] Urine, clean voided 05/10/2024 7:57 PM CDT 05/10/2024 11:59 PM CDT Narrative [facility] - 05/12/2024 12:47 PM CDT Testing performed by [facility] ([phone]) us Elsie Brown ACQUISITIONS ASSISTANT LAB MICROBIOLOGY - GENERAL ORD ERABLES Final Result [facility] [address] [place] [address] * (ABNORMAL) POCT urinalysis dipstick (05/10/2024 7:56 PM CDT) Color, Urine, POC Dark Yellow Clarity, ur, POC Cloudy(A) Clear Glucose, ur, POC Negative Negative MG/DL Bilirubin, ur, POC Small Negative, Small, Moderate, Large Ketones, ur, POC Trace(A) Negative Specific [place], POC 1.030 1.003 - 1.030 Blood, ur, POC Small(A) Negative pH, ur, POC 6.0 5.0 - 8.0 Protein, ur, POC 30.(A) Negative Urobilinogen, urine, POC 0.2 0.2 - 1.0 mg/dL Nitrite, ur, POC Negative Negative Leukocytes, ur, POC Negative Negative Lot Number [id number] Urine 05/10/2024 7:56 PM CDT Elsie Brown ACQUISITIONS ASSISTANT POINT OF CARE TEST ORDERABLES Final Result documented in this encounter Visit Diagnoses Diagnosis Flank pain- Primary Abdominal pain, unspecified site Flank pain Abdominal pain, unspecified site documented in this encounter Administered Medications Inactive Administered Medications - up to 3 most recent administrations Medication Order MAR Action Action Date Dose Rate Site ketorolac (TORADOL) 60 mg/2 mL intramuscular injection 30 mg 30 mg, intramuscular, Once, On Mon05/10/24 at 2100, For 1 doseIndications:Flank pain Given 05/10/2024 8:31 PM CDT 30 mg Right Dorsogluteal/Butto ck documented in this encounter Discontinued Medications Medication Sig Discontinue Reason Start Date End Da te adalimumab (HUMIRA) 40 mg/0.8 mL pen injector kit Therapy completed 05/10/2024 amoxicillin (amoxicillin) 500 mg tablet/capsuleIndicatio ns:Prophylaxis, Medical Take 1 tablet/capsule (500 mg total) by mouth as directed TAKE 4 PILL 1 HOUR BEFORE DENTAL APPOINTMENT. Therapy completed 01/15/2019 05/10/2024 azithromycin (ZITHROMAX) 250 mg tablet ZPK Therapy completed 10/29/2018 05/10/2024 meloxicam (MOBIC) 15 mg tablet daily. Therapy completed 11/27/2017 05/10/2024 metroNIDAZOLE (FLAGYL) 500 mg tablet TK 1 T PO TID Therapy completed 08/30/2018 05/10/2024 mupirocin (BACTROBAN) 2 % ointment Apply small amount inside each nostril using clean q-tip each nostril BID start 5 days before surgery Therapy completed 08/11/2017 05/10/2024 documented as of this encounter Historical Medications * This list may reflect changes made after this encounter. Skyrizi 360 mg/2.4 mL (150 mg/mL) wearable injector Inject 360 mg under the skin every 8 (eight) weeks 01/23/2024 omeprazole (PriLOSEC) 40 mg capsule Take by mouth daily montelukast (SINGULAIR) 10 mg tablet Take 1 tablet (10 mg total) by mouth daily ergocalciferol (VITAMIN D) 50,000 unit capsule TAKE 1 CAPSULE BY MOUTH EVERY 7 DAYS FOR 60 DAYS, THEN 1 CAPSULE (50,000 UNITS) EVERY 30 DAYS. 02/21/2019 added in this encounter Orders Medications Ordered That Jonatan ht Not Have Been Administered Count Last Ordered Date First Ordered Date ketorolac (TORADOL) 30 mg/mL injection 15 mg 1 05/10/2024 documented in this encounter Care Teams Child Welfare Social Worker Relationship Specialty Start Date End Date Jasiel Freeman MD PCP - General 09/29/17 documented as of this encounter
--- OUTSIDE RECORDS SUMMARY | 2024-10-24 05:26 | XMS_ITS | Encounter Summary ---
Author Organization [facility] Healthcare Address [address] [place] [address] Care Team Providers Care Day Spa Manager Name Role Phone Jasile Freeman MD Primary Care Provider Encounter Details Date Type Department Care Team (Latest Contact Info) Description 11/27/2017 9:45 AM ROOM SERVICE WAITER/WAITRESS - 11/27/2017 11:59 PM ROOM SERVICE WAITER/WAITRESS Hospital Encounter [facility] INTERIM [phone] Owen Gold MD [address] [facility] [address] [place] [address] Discharge Disposition: Discharge to home or self care Social History Tobacco Use Types Packs/Day Years Used Date Smoking Tobacco: Former Sex and Gender Information Value Date Recorded Sex Assigned at Not on file Legal Sex Male 11:53 PM ROOM SERVICE WAITER/WAITRESS Gender Identity Not on file Sexual Orientation Not on file documented as of this encounter Medications at Time of Discharge celecoxib (CeleBREX) 200 mg capsule take 2 pills with breakfast day before surgery. then 1 BID until completed 08/11/2017 9 meloxicam (MOBIC) 15 mg tablet daily. 11/27/2017 4 metroNIDAZOLE (FLAGYL) 250 mg tablet Take 250 mg by mouth 3 times daily. 09/19/2017 9 mupirocin (BACTROBAN) 2 % ointment Apply small amount inside each nostril using clean q-tip each nostril BID start 5 days before surgery 08/11/2017 4 documented as of this encounter Discharge Disposition Disposition Code Departure Means Destination Discharge to home or self care documented in this encounter Plan of Treatment Not on file documented as of this encounter Procedures Procedure Name Priority Date/Time Associated Diagnosis Comments XR HIP 2+ VW Routine 11/27/2017 4:00 PM ROOM SERVICE WAITER/WAITRESS documented in this encounter Results * XR Hip 2+ VW (11/27/2017 4:00 PM ROOM SERVICE WAITER/WAITRESS) Anatomical Region Laterality Modality N/A Radiographic Barbara ging 11/27/2017 4:00 PM ROOM SERVICE WAITER/WAITRESS Narrative 11/27/2017 4:08 PM ROOM SERVICE WAITER/WAITRESS CARLITO MORA M.D. FINAL REPORT ACC# ??Date Time ??Exam [id number] Nov 27, 2017 10:00:00 [id number] Hip Uni & ??Pel if done 2-3v L EXAMINATION: ??Left hip 2 or 3 views HISTORY: Left femoral head osteonecrosis COMPARISON: 10/10/2017 and 06/19/2017 FINDINGS: 2 view examination of the pelvis and left hip is submitted. Left total hip arthroplasty remains in near-anatomic position. There is no fracture or component migration. Bladder catheter has been removed and soft tissue gas has resolved. 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 There are anastomotic staple lines in the pelvis. IMPRESSION: ??1. Left total hip arthroplasty in unchanged, near anatomic position. 2. 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 Electronically signed by: Carlito Mora M.D. Requested By: OWEN GOLD M.D. Dictated By: ?? CARLITO MORA M.D. ??on Nov ??2017 10:06A This document has been electronically signed by: CARLITO MORA M.D. on Nov ??2017 10:06A [id number] MORA M.D. FINAL REPORT Attending: ??NI, ??OWEN Requesting: ??NI, ??OWEN Requesting Fax: ?? Attending Fax: ?? Attending ID: ??[id number] Requesting ID: ??[id number] Report To 1 ID: ??[id number] ? Report To 1 Name: ??, ?? Report To 1 FAX: ?? NextGen Order #: ?? Procedure Note Miscellaneous, Not In File - 11/27/2017 CARLITO MORA M.D. FINAL REPORT ACC# Date Time Exam [id number] Nov 27, 2017 10:00:00 [id number] Hip Uni & Pel if done 2-3v L EXAMINATION: Left hip 2 or 3 views HISTORY: Left femoral head osteonecrosis COMPARISON: 10/10/2017 and 06/19/2017 FINDINGS: 2 view examination of the pelvis and left hip is submitted. Left total hip arthroplasty remains in near-anatomic position. There is no fracture or component migration. Bladder catheter has been removed and soft tissue gas has resolved. 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 There are anastomotic staple lines in the pelvis. IMPRESSION: 1. Left total hip arthroplasty in unchanged, near anatomic position. 2. 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 Electronically signed by: Carlito Mora M.D. Requested By: OWEN GOLD M.D. Dictated By: CARLITO MORA M.D. on Nov 27 2017 10:06A This document has been electronically signed by: CARLITO MORA M.D. on Nov 27 2017 10:06A [id number] MORA M.D. FINAL REPORT Attending: OWEN GOLD Requesting: OWEN GOLD Requesting Fax: Attending Fax: Attending ID: [id number] Requesting ID: [id number] Report To 1 ID: [id number] Report To 1 Name: , Report To 1 FAX: NextGen Order #: Owen Gold MD IMG XR PROCEDURES Final Res ult documented in this encounter Visit Diagnoses Not on filedocumented in this encounter Care Teams Day Spa Manager Relationship Specialty Start Date End Date Jasiel Freeman MD PCP - General 09/29/17 documented as of this encounter
--- OUTSIDE RECORDS SUMMARY | 2024-10-24 05:26 | XMS_ITS | Encounter Summary ---
Author Organization [facility] Healthcare Address [address] [place] [address] Care Team Providers Care Industrial Security Analyst Name Role Phone Unavailable Primary Care Provider Unavailabl e Encounter Details Date Type Department Care Team (Late st Contact Info) Description 11/17/2009 2:49 PM STORAGE SOLUTIONS ARCHITECT - 11/17/2009 11:59 PM STORAGE SOLUTIONS ARCHITECT Hospital Encounter [facility] Social History Tobacco Use Types Packs/Day Years Used Date Smoking Tobacco: Never Assessed Sex and Gender Information Value Date Recorded Sex Assigned at Not on file Legal Sex Male 11:53 PM STORAGE SOLUTIONS ARCHITECT Gender Identity Not on file Sexual Orientation Not on file documented as of this encounter Plan of Treatment Not on file documented as of this encounter Visit Diagnoses Not on filedocumented in this encounter
--- OUTSIDE RECORDS SUMMARY | 2024-10-24 05:26 | XMS_ITS | Encounter Summary ---
Author Organization [facility] Healthcare Address [address] [place] [address] Care Team Providers Care Weighbridge Operator Name Role Phone Jasiel Freeman MD Primary Care Provider [phone] Encounter Details Date Type Department Care Team (Latest Contact Info) Description 10/09/2017 7:15 AM DIRECT CUSTOMER SERVICE REPRESENTATIVE - 10/09/2017 11:59 PM DIRECT CUSTOMER SERVICE REPRESENTATIVE Hospital Encounter [facility] INTERIM [phone] Thanh Gold MD [address] [facility] [address] [place] [address] Discharge Disposition: Discharge to home or self care Social History Tobacco Use Types Packs/Day Years Used Date Smoking Tobacco: Former Sex and Gender Information Value Date Recorded Sex Assigned at Not on file Legal Sex Male 11:53 PM DIRECT CUSTOMER SERVICE REPRESENTATIVE Gender Identity Not on file Sexual Orientation Not on file documented as of this encounter Medications at Time of Discharge celecoxib (CeleBREX) 200 mg capsule take 2 pills with breakfast day before surgery. then 1 BID until completed 08/11/2017 9 metroNIDAZOLE (FLAGYL) 250 mg tablet Take 250 [...] on filedocumented in this encounter Care Teams Weighbridge Operator Relationship Specialty Start Date End Date Jasiel Freeman MD PCP - General 09/29/17 documented as of this encounter
--- OUTSIDE RECORDS SUMMARY | 2024-10-24 05:26 | XMS_ITS | Encounter Summary ---
Author Organization [facility] Healthcare Address [address] [place] [address] Care Team Providers Care Flange Turner Name Role Phone Unavailable Primary Care Provider Unavailabl e Encounter Details Date Type Department Care Team (Late st Contact Info) Description 08/06/2015 4:03 PM CDT - 08/06/2015 11:59 PM CDT Hospital Encounter [facility] [place] [address] [place] [address] Testicular hypofunction; Hypothyroidism; Other abnormal glucose Social History Tobacco Use Types Packs/Day Years Used Date Smoking Tobacco: Never Assessed Sex and Gender Information Value Date Recorded Sex Assigned at Not on file Legal Sex Male 11:53 PM PROVIDER RELATIONS CONSULTANT Gender Identity Not on file Sexual Orientation Not on file documented as of this encounter Plan of Treatment Not on file documented as of this encounter Procedures Procedure Name Priority Date/Time Associated Diagnosis Comments URINE ANALYSIS AND MICROSCOPY Routine 08/06/2015 4:06 PM CDT PLASMA THYROXINE (T4), FREE Routine 08/06/2015 4:06 PM CDT PLASMA THYROID-STIMULATING HORMONE (TSH) Routine 08/06/2015 4:06 PM CDT PLASMA TESTOSTERONE Routine 08/06/2015 4 :06 PM CDT PLASMA COMPREHENSIVE METABOLIC PANEL Routine 08/06/2015 4:06 PM CDT BLOOD CELL COUNT (CBC), MORPHOLOGIC EXAM Routine 08/06/2015 4:06 PM CDT BLOOD HEMOGLOBIN A1C Routine 08/06/2015 11:06 AM CDT DISCHARGE LABORATORY CUMULATIVE REPORT 08/06/2015 documented in this encounter Results * (ABNORMAL) Urine analysis and microscopy (08/06/2015 4:06 PM CDT) Leukocyte esterase, ur Trace(A) Negative HISTORICAL RESULTS WBC, ur 0 - 5 0 - 5 /hpf HISTORICA L RESULTS RBC, ur 0 - 5 0 - 5 /hpf HISTORICA L RESULTS Mucus Present HISTORICAL RESULTS Color, ur Maia HISTORICAL RESULTS Clarity, ur Clear Clear HISTORIC AL RESULTS pH, ur 5.0 5 - 7 HISTORICAL RESULTS Specific gravity, ur 1.035(H) 1.001 - 1.033 HISTORICAL RESULTS Protein, ur Negative Negative HISTORIC AL RESULTS Glucose, ur Negative Negative HISTORIC AL RESULTS Ketones, ur Negative Negative HISTORIC AL RESULTS Bilirubin, ur Negative Negative HISTOR ICAL RESULTS U Blood Negative Negative HISTORICAL RESULTS Urobilinogen, quant, ur Normal 0.2 - 1.0 mg/dl HISTORICAL RESULTS Nitrites, ur Negative Negative HISTORI PAO RESULTS Urine 08/06/2015 4:06 PM CDT us Martin Hopper MD LAB BLOOD ORDERABLES Fin al Result HISTORICAL RESULTS * (ABNORMAL) Blood cell count (CBC), morphologic exam (08/06/2015 4:06 PM CDT) WBC 6.0 3.8 - 9.8 K/cumm HISTORICAL RESULTS RBC 6.22(H) 4.50 - 6.00 M/cumm HISTORICAL RESULTS Hgb 16.9 14.0 - 18.0 g/dl HISTORICAL RESULTS Hct 53.3 40.0 - 54.0 % HISTORICAL RESULTS MCV 85.7 82.0 - 96.0 fl HISTORICAL RESULTS MCH 27.2 27.0 - 32.0 pg HISTORICAL RESULTS MCHC 31.7 29.0 - 35.0 g/dl HISTORICAL RESULTS Platelets 297 150 - 450 K/cumm HISTORICAL RESULTS RDW 46.7(H) 35.1 - 43.9 fl HISTORICAL RESULTS Rdw 14.9(H) 11.5 - 14.5 % HISTORICAL RESULTS MPV 11.0 8.6 - 12.6 fl HISTORICAL RESULTS Neutrophils 69.0 42.0 - 85.0 % HISTORICAL RESULTS Neutrophils, abs 4.2 2.1 - 8.5 K/cumm HISTORICAL RESULTS Lymphocytes 17.1 16.0 - 52.0 % HISTORICAL RESULTS Lymphocytes, abs 1.0 0.8 - 5.2 K/cumm HISTORICAL RESULTS Monos 11.8 1.0 - 13.0 % HISTORICAL RESULTS Monocytes, absolute 0.7 0.0 - 1.3 K/cumm HISTORICAL RESULTS Eosinophils 1.3 0.0 - 7.0 % HISTORICAL RESULTS Eosinophils, abs 0.1 0.0 - 0.7 K/cumm HISTORICAL RESULTS Basophils 0.3 0.0 - 4.0 % HISTORICAL RESULTS Basophils, abs 0.0 0.0 - 0.4 K/cumm HISTORICAL RESULTS Young granulocytes, % 0.5 0.0 - 1.0 % HISTORICAL RESULTS Young granulocyte 0.03 0.00 - 0.10 K/cumm HISTORICAL RESULTS NRBC 0.0 0.0 - 0.2 #/100 WBC HISTORICAL RESULTS NRBC, abs 0.00 0.00 - 0.01 K/cumm HISTORICAL RESULTS Blood specimen (specimen) 08/06/2015 4:06 PM CDT us Martin Hopper MD LAB BLOOD ORDERABLES Fin al Result HISTORICAL RESULTS * (ABNORMAL) Plasma comprehensive metabolic panel (08/06/2015 4:06 PM CDT) BUN 16 8 - 24 mg/dl HISTORICAL RESULTS Alk phos 58 30 - 110 Units/L HISTORICAL RESULTS Glucose 115 70 - 199 mg/dl HISTORICAL RESULTS Calcium 8.9 8.4 - 10.5 mg/dl HISTORICAL RESULTS Sodium 138 135 - 145 mmol/L HISTORICAL RESULTS Bilirubin <0.10(L) 0.10 - 1.30 mg/dl HISTORICAL RESULTS K, pl 4.1 3.5 - 5.1 mmol/L HISTORICAL RESULTS Protein, pl 6.5 6.0 - 8.3 g/dl HISTORICAL RESULTS Chloride 103 100 - 114 mmol/L HISTORICAL RESULTS Alb 4.0 3.2 - 4.8 g/dl HISTORICAL RESULTS CO2 29 22 - 32 mmol/L HISTORICAL RESULTS Globulin 2.5 2.0 - 4.3 g/dl HISTORICAL RESULTS Creatinine 1.25 0.70 - 1.40 mg/dl HISTORICAL RESULTS A. gap 10 8 - 16 mmol/L HISTORICAL RESULTS AST 25 7 - 40 Units/L HISTORICAL RESULTS eGFR 63 90 - 200 ml/min/1. 73 m2 HISTORICAL RESULTS Comment: If this individual is -Bhutanese, multiply result by 1.21 Repeated results of less than 60 is indicative of chronic kidney disease. MDRD formula has not been validated on individuals greater than 70 years old. ALT 30 5 - 50 Units/L HISTORICAL RESULTS Plasma 08/06/2015 4:06 PM CDT Martin Hopper MD LAB BLOOD ORDERABLES Fin al Result Performing Organization Address [facility] Phone Number HISTORICAL RESULTS * Plasma thyroxine (T4), free (08/06/2015 4:06 PM CDT) Free T4 0.92 0.61 - 1.12 ng/dl HISTORICAL RESULTS Plasma 08/06/2015 4:06 PM CDT Result [facility] Martin Hopper MD LAB BLOOD ORDERABLES Fin al Result Performing Organization Address [facility] de Phone Number HISTORICAL RESULTS * Plasma thyroid-stimulating hormone (TSH) (08/06/2015 4:06 PM CDT) TSH 0.55 0.34 - 5.60 mcIUnits/ml HISTORICAL RESULTS Plasma 08/06/2015 4:06 PM CDT Martin Hopper MD LAB BLOOD ORDERABLES Fin al Result Performing Organization Address [facility] de Phone Number HISTORICAL RESULTS * Plasma testosterone (08/06/2015 4:06 PM CDT) Testosterone 290 170 - 780 ng/dl HISTORICAL RESULTS Plasma 08/06/2015 4:06 PM CDT Martin Hopper MD LAB BLOOD ORDERABLES Fin al Result Performing Organization Address [facility] de Phone Number HISTORICAL RESULTS * Blood hemoglobin A1C (08/06/2015 11:06 AM CDT) Hgb A1C 5.4 4.0 - 6.0 % HISTORICAL RESULTS Comment: Hemoglobin A1c ADA Interpretive Guidelines: ?<7% ?? Glycemia controlled ?>8% ?? Hyperglycemia, additional action recommended ?[place]osta Immunochemical Method Blood specimen (specimen) 08/06/2015 11:06 AM CDT Narrative HISTORICAL RESULTS - 08/07/2015 7:27 AM CDT Test performed at [address], [facility][note 3]. Martin Hopper MD LAB BLOOD ORDERABLES Fin al Result Performing Organization Address [facility] de Phone Number HISTORICAL RESULTS * DISCHARGE LABORATORY CUMULATIVE REPORT (08/06/2015) Narrative 08/06/2015 Ordered by an unspecified provider. Historical Provider LAB BLOOD ORDERABLES Padma l Result documented in this encounter Visit Diagnoses Diagnosis Testicular hypofunction Other testicular hypofunction Hypothyroidism Unspecified hypothyroidism Other abnormal glucose documented in this encounter
--- OUTSIDE RECORDS SUMMARY | 2024-10-24 05:26 | XMS_ITS | Encounter Summary ---
Author Organization [facility] Healthcare Address [address] [place] [address] Care Team Providers Care Therapeutic Program Worker Name Role Phone Unavailable Primary Care Provider Unavailabl e Encounter Details Date Type Department Care Team (Late st Contact Info) Description 09/16/2013 10:07 AM APARTMENT HOUSE MANAGER - 09/16/2013 11:59 PM APARTMENT HOUSE MANAGER Hospital Encounter [facility] [place] [place], [place] [address] [facility] [place] [address] Other dyspnea and respiratory abnormality Social History Tobacco Use Types Packs/Day Years Used Date Smoking Tobacco: Never Assessed Sex and Gender Information Value Date Recorded Sex Assigned at Not on file Legal Sex Male 11:53 PM APARTMENT HOUSE MANAGER Gender Identity Not on file Sexual Orientation Not on file documented as of this encounter Plan of Treatment Not on file documented as of this encounter Procedures Procedure Name Priority Date/Time Associated Diagnosis Comments PULMONARY FUNCTION TEST (PFT) 09/16/2013 PULMONARY FUNCTION TEST (PFT) Routine 09/16/2013 12:00 AM APARTMENT HOUSE MANAGER documented in this encounter Results * PULMONARY FUNCTION TEST (09/16/2013) Anatomical Region Laterality Modality PFT Narrative 09/16/2013 Ordered by an unspecified provider. us Historical Provider PFT ORDERABLES Final Res ult * Pulmonary function test (09/16/2013 12:00 AM APARTMENT HOUSE MANAGER) Anatomical Region Laterality Modality PFT 09/16/2013 Narrative 09/24/2013 10:54 AM APARTMENT HOUSE MANAGER ?PULMONARY FUNCTION REPORT Patient: ??MUKUL ELKINS Account: ??[id number] ? Room No: : ?1970 ? Patient Type: ?ANC Attend.: ??Martin Kelley M.D. ? Admit Date: ??09/16/2013 Dict.: ?Aman Rodrigez M.D. ?Disch. Date: 09/16/2013 Date of test: ??09/16/2013. ??1. The flow-volume curves show borderline minimal small airways obstruction ??2. The volume study was done plethysmographically, utilizing Franz's law. ? This was normal. There was no restriction. ??3. The diffusing capacity was normal. ??4. Airways resistance was normal. IMPRESSION: ??Borderline small airways obstruction only - no major obstruction and certainly no restriction. Aman Rodrigez M.D. MY/be Job #: ??[id number] DD: ??09/23/2013 14:54 TD: ??09/23/2013 17:05 Authenticated by Aman Rodrigez MD On 09/24/2013 09:52:46 AM us Historical Provider PFT ORDERABLES Final Res ult documented in this encounter Visit Diagnoses Diagnosis Other dyspnea and respiratory abnormality documented in this encounter
--- OUTSIDE RECORDS SUMMARY | 2024-10-24 05:26 | XMS_ITS | Encounter Summary ---
Author Organization [facility] Healthcare Address [address] [place] [address] Care Team Providers Care Aerodynamics Professor Name Role Phone Unavailable Primary Care Provider Unavailabl e Encounter Details Date Type Department Care Team (Latest Contact Info) Description 11/28/2012 9:31 AM ELECTRICAL ASSEMBLY TECHNICIAN - 11/28/2012 11:59 PM ELECTRICAL ASSEMBLY TECHNICIAN Hospital Encounter [facility] [place], [place] [address] [facility] [place] [address] Other testicular hypofunction Social History Tobacco Use Types Packs/Day Years Used Date Smoking Tobacco: Never Assessed Sex and Gender Information Value Date Recorded Sex Assigned at Not on file Legal Sex Male 11:53 PM ELECTRICAL ASSEMBLY TECHNICIAN Gender Identity Not on file Sexual Orientation Not on file documented as of this encounter Plan of Treatment Not on file documented as of this encounter Procedures Procedure Name Priority Date/Time Associated Diagnosis Comments SERUM TESTOSTERONE Routine 11/28/2012 9: 35 AM ELECTRICAL ASSEMBLY TECHNICIAN SERUM ESTRADIOL Routine 11/28/2012 9:35 AM ELECTRICAL ASSEMBLY TECHNICIAN DISCHARGE LABORATORY CUMULATIVE REPORT Routine 11/28/2012 12:00 AM ELECTRICAL ASSEMBLY TECHNICIAN documented in this encounter Results * Serum estradiol (11/28/2012 9:35 AM ELECTRICAL ASSEMBLY TECHNICIAN) Estradiol See Report pg/ml HISTORICA L RESULTS Serum 11/28/2012 9:35 AM ELECTRICAL ASSEMBLY TECHNICIAN us Timmy Ho MD LAB BLOOD ORDERABLES Fin al Result Performing Organization Address City[facility]/ZIP Co de Phone Number HISTORICAL RESULTS * Serum testosterone (11/28/2012 9:35 AM ELECTRICAL ASSEMBLY TECHNICIAN) Testosterone 253 240 - 825 ng/dl HISTORICAL RESULTS Serum 11/28/2012 9:35 AM ELECTRICAL ASSEMBLY TECHNICIAN Timmy Ho MD LAB BLOOD ORDERABLES Fin al Result Performing Organization Address [facility] [[email or web address]] Co de Phone Number HISTORICAL RESULTS * Discharge Laboratory Cumulative Report (11/28/2012 12:00 AM ELECTRICAL ASSEMBLY TECHNICIAN) 11/28/2012 Narrative HISTORICAL RESULTS - 11/30/2012 12:24 AM ELECTRICAL ASSEMBLY TECHNICIAN Patient No: [id number] ? [facility] Patient Name: MUKUL ELKINS ?[facility] Healthcare Age: 42 YRS ?: 1970 ?Sex:M ?[address] )[phone] ?? Adm Dt: 11/28/2012 ?[place], [place] ??[address] Created: 11/30/2012 ??0024 ?? Pt. Type: R ? Discharge Dt: 11/28/2012 ? Pathologists: Kathrin Billy MD Admit Attend Dr: TIMMY HO MD ? [facility] ?Collection Date: ?11/28/12 ?Collection Time: ?0935 ? Ref Range: ?? Units: ? PG/ML ?ESTRADIOL @ ? SEE REPT [[id number]] ?? ng/dl ?TESTOSTERONE ? 253 ?[facility] ? Units: ??ESTRADIOL @ ? Ref Range: ?PG/ML ? 11/28/12 0935 ?SEE REPT @ = ESTRADIOL Performed at ??[facility] ?? [place], [place] ?? END OF CHART ? Page: ?? 1 us Historical Provider MD LAB BLOOD ORDERABLES Padma l Result HISTORICAL RESULTS documented in this encounter Visit Diagnoses Diagnosis Other testicular hypofunction documented in this encounter
--- OUTSIDE RECORDS SUMMARY | 2024-10-24 05:26 | XMS_ITS | Encounter Summary ---
Author Organization [facility] Healthcare Address [address] [place] [address] Care Team Providers Care Car Sealer Name Role Phone Unavailable Primary Care Provider Unavailabl e Encounter Details Date Type Department Care Team (Late st Contact Info) Description 01/31/2013 8:34 AM CDT - 01/31/2013 11:59 PM CDT Hospital Encounter [facility] CLIN[facility] Albert Rahman MD [address] [address] Cervicalgia; Degeneration of cervical intervertebral disc; Brachial neuritis; Myalgia and myositis; Spinal stenosis in cervical region Social History Tobacco Use Types Packs/Day Years Used Date Smoking Tobacco: Never Assessed Sex and Gender Information Value Date Recorded Sex Assigned at Not on file Legal Sex Male 11:53 PM TRANSPORTATION INSPECTOR Gender Identity Not on file Sexual Orientation Not on file documented as of this encounter Plan of Treatment Not on file documented as of this encounter Procedures Procedure Name Priority Date/Time Associated Diagnosis Comments FLUOROSCOPIC GUIDANCE FOR PAIN MANAGEMENT Routine 01/31/2013 10:35 AM CDT documented in this encounter Results * FLUOROSCOPIC GUIDANCE FOR PAIN MANAGEMENT (01/31/2013 10:35 AM CDT) Anatomical Region Laterality Modality N/A Radiographic Barbara ging 01/31/2013 10:3 5 AM CDT Narrative 01/31/2013 12:49 PM CDT IMAGES NOT AVAILABLE IN CLINICAL DESKTOP ? FILM(S) AVAILABLE IN RADIOLOGY DATE OF EXAM: ??Jan 31 2013 10:35AM Acc#: ??[id number] ??EDX 0171 - XR Fluoro Assist Pain Management ?? DIAGNOSIS: ??BACK PAIN CLINICAL HISTORY: ?? THORACIC TPI ?? RESULT: The Radiology Department provided assistance with Fluoroscopy during a patient exam performed by a Pain Management Physician. ??No films were taken. ??No interpretation required. IMPRESSION: ?The Radiology Department provided assistance with Fluoroscopy during a patient exam performed by a Pain Management Physician. ??No films were taken. ??No interpretation required. PLANISHING HAMMER OPERATOR: ??KS6 TRANSCRIBE DATE/TIME: ??Jan 31 2013 12:49P RADIOLOGIST: ?[facility] Luis Enrique ??READ ON: ??Jan 31 2013 12:49P ORDERING DR: ALBERT RAHMAN MD THIS DOCUMENT HAS BEEN ELECTRONICALLY SIGNED BY: ??[facility] Luis Enrique, ?ON: ??Jan 31 2013 12:49P Procedure Note Provider, MD Lisandra - 02/22/2017 IMAGES NOT AVAILABLE IN CLINICAL DESKTOP FILM(S) AVAILABLE IN RADIOLOGY DATE OF EXAM: Jan 31 2013 10:35AM Acc#: [id number] EDX 0171 - XR Fluoro Assist Pain Management DIAGNOSIS: BACK PAIN CLINICAL HISTORY: THORACIC TPI RESULT: The Radiology Department provided assistance with Fluoroscopy during a patient exam performed by a Pain Management Physician. No films were taken. No interpretation required. IMPRESSION: The Radiology Department provided assistance with Fluoroscopy during a patient exam performed by a Pain Management Physician. No films were taken. No interpretation required. PLANISHING HAMMER OPERATOR: KS6 TRANSCRIBE DATE/TIME: Jan 31 2013 12:49P RADIOLOGIST: [facility] Luis Enrique READ ON: Jan 31 2013 12:49P ORDERING DR: ALBERT RAHMAN MD THIS DOCUMENT HAS BEEN ELECTRONICALLY SIGNED BY: [facility] RADIOLOG[facility] Luis Enrique, ON: Jan 31 201312:49P us Historical Provider MD BERMAN XR PROCEDURES Final R esult documented in this encounter Visit Diagnoses Diagnosis Cervicalgia Degeneration of cervical intervertebral disc Brachial neuritis Brachial neuritis or radiculitis nos Myalgia and myositis Unspecified myalgia and myositis Spinal stenosis in cervical region documented in this encounter
--- OUTSIDE RECORDS SUMMARY | 2024-10-24 05:26 | XMS_ITS | Encounter Summary ---
Author Organization [facility] Healthcare Address [address] [place] [address] Care Team Providers Care Environmental Laboratory Technician Name Role Phone Unavailable Primary Care Provider Unavailabl e Encounter Details Date Type Department Care Team (Late st Contact Info) Description 01/01/2013 2:26 PM CDT - 01/01/2013 11:59 PM CDT Hospital Encounter [facility] CLINCONV Albert Rahman MD [address] [address] Cervicalgia; Degeneration of cervical intervertebral disc; Spinal stenosis in cervical region; Brachial neuritis; Myalgia and myositis Social History Tobacco Use Types Packs/Day Years Used Date Smoking Tobacco: Never Assessed Sex and Gender Information Value Date Recorded Sex Assigned at Not on file Legal Sex Male 11:53 PM STOCK REPLENISHER Gender Identity Not on file Sexual Orientation Not on file documented as of this encounter Plan of Treatment Not on file documented as of this encounter Procedures Procedure Name Priority Date/Time Associated Diagnosis Comments FLUOROSCOPIC GUIDANCE FOR PAIN MANAGEMENT Routine 01/01/2013 3:55 AM CDT documented in this encounter Results * FLUOROSCOPIC GUIDANCE FOR PAIN MANAGEMENT (01/01/2013 3:55 AM CDT) Anatomical Region Laterality Modality N/A Radiographic Barbara ging 01/01/2013 3:55 AM CDT Narrative 01/02/2013 6:50 AM CDT IMAGES NOT AVAILABLE IN CLINICAL DESKTOP ? FILM(S) AVAILABLE IN RADIOLOGY DATE OF EXAM: ??Jan 01 2013 ??3:55AM Acc#: ??[id number] ??EDX 0171 - XR Fluoro Assist Pain Management ?? DIAGNOSIS: ??NECK PAIN CLINICAL HISTORY: ?? ELSA ?? RESULT: The Radiology Department provided assistance with Fluoroscopy during a patient exam performed by a Pain Management Physician. ??No films were taken. ??No interpretation required. IMPRESSION: ?The Radiology Department provided assistance with Fluoroscopy during a patient exam performed by a Pain Management Physician. ??No films were taken. ??No interpretation required. WIND TURBINE ENGINEER: ??KK9 TRANSCRIBE DATE/TIME: ??Jan 02 2013 ??6:50A RADIOLOGIST: ?[facility] SYSTEM RADI[facility] MDorota ??READ ON: ??Jan 02 2013 ?? 6:50A ORDERING DR: ALBERT RAHMAN MD THIS DOCUMENT HAS BEEN ELECTRONICALLY SIGNED BY: ??[facility] Luis Enrique, ?ON: ??Jan 02 2013 ??6:50A Procedure Note Provider, MD Lisandra - 02/22/2017 IMAGES NOT AVAILABLE IN CLINICAL DESKTOP FILM(S) AVAILABLE IN RADIOLOGY DATE OF EXAM: Jan 01 2013 3:55AM Acc#: [id number] EDX 0171 - XR Fluoro Assist Pain Management DIAGNOSIS: NECK PAIN CLINICAL HISTORY: ELSA RESULT: The Radiology Department provided assistance with Fluoroscopy during a patient exam performed by a Pain Management Physician. No films were taken. No interpretation required. IMPRESSION: The Radiology Department provided assistance with Fluoroscopy during a patient exam performed by a Pain Management Physician. No films were taken. No interpretation required. WIND TURBINE ENGINEER: KK9 TRANSCRIBE DATE/TIME: Jan 02 2013 6:50A RADIOLOGIST: [facility] Luis Enrique READ ON: Jan 02 2013 6:50A ORDERING DR: ALBERT RAHMAN MD THIS DOCUMENT HAS BEEN ELECTRONICALLY SIGNED BY: [facility] Luis Enrique, ON: Jan 02 20136:50A us Historical Provider MD BERMAN XR PROCEDURES Final R esult documented in this encounter Visit Diagnoses Diagnosis Cervicalgia Degeneration of cervical intervertebral disc Spinal stenosis in cervical region Brachial neuritis Brachial neuritis or radiculitis nos Myalgia and myositis Unspecified myalgia and myositis documented in this encounter
--- OUTSIDE RECORDS SUMMARY | 2024-10-24 05:26 | XMS_ITS | Encounter Summary ---
Author Organization [facility] Healthcare Address [address] [place] [address] Care Team Providers Care Supervisor Type Bar And Segment Name Role Phone Unavailable Primary Care Provider Unavailabl e Encounter Details Date Type Department Care Team (Latest Contact Info) Description 08/24/2012 8:31 AM CDT - 08/24/2012 11:59 PM CDT Hospital Encounter [facility] [place], [place] [address] [facility] [place] [address] Other and unspecified hyperlipidemia; Other testicular hypofunction Social History Tobacco Use Types Packs/Day Years Used Date Smoking Tobacco: Never Assessed Sex and Gender Information Value Date Recorded Sex Assigned at Not on file Legal Sex Male 11:53 PM EXPERIMENTAL PSYCHOLOGIST Gender Identity Not on file Sexual Orientation Not on file documented as of this encounter Plan of Treatment Not on file documented as of this encounter Visit Diagnoses Diagnosis Other and unspecified hyperlipidemia Other testicular hypofunction documented in this encounter
--- OUTSIDE RECORDS SUMMARY | 2024-10-24 05:26 | XMS_ITS | Encounter Summary ---
Author Organization [facility] Address [address] [place] [address] Phone Care Team Providers Care Food Safety Scientist Name Role Phone Jasiel Freeman MD Primary Care Provider Reason for Referral * Diagnostic Imaging (Routine) - Closed Specialty Diagnoses / Procedures Referred By Kenyac t Referred To Contact Diagnoses Aftercare following left hip joint replacement surgery Procedures XR Hip Left 2 or 3 Views W Pelvis Thanh Gold MD Phone: tel: fax: [facility] Referral ID Status Reason Start Date Expiration Date Visits Re quested Visits Authorized [id number] Closed 11/23/2018 06/03/2020 1 1 RIAL HANDLER LOADER Encounter Details Date Type Department Care Team (Late st Contact Info) Description 11/26/2018 9:45 AM MATERIAL HANDLER LOADER Office Visit [facility] Orthopaedic Surgery [id number] [place] [address] 2nd Floor [address] [place] [address] Thanh Gold MD [address] [facility] [address] [place] [address] Aftercare following left hip joint replacement surgery (Primary Dx) Social History Tobacco Use Types Packs/Day Years Used Date Smoking Tobacco: Former Sex and Gender Information Value Date Recorded Sex Assigned at Not on file Legal Sex Male 11:53 PM MATERIAL HANDLER LOADER Gender Identity Not on file Sexual Orientation Not on file documented as of this encounter Progress Notes * Thanh Gold MD - 11/26/2018 9:45 AM CST RETURN PATIENT VISIT INTERIM HISTORY: Edgardo Elkins is status post left total hip replacement. Patient seen today for routine follow up and is doing well. MARTINEZ HIP SCORE: LEFT HIP PAIN: None LIMP: None SUPPORT: None DISTANCE: Unlimited STAIRS: Normal SITTING: Any Chair 1 Hour SHOES/SOCKS: Easy PUBLIC TRANSPORTATION: Yes PHYSICAL EXAM: LEFT HIP Hip Pain is noted: None Skin Status: Previous incision healed Trendelenberg: Negative Range of Motion: Start of flexion: 0 End of flexion: 100 Abduction: 30 Adduction: 20 ERE: 40 RIZWANA: 20 Deformity: No deformity noted Leg Length Discrepancy: None Neurovascular status: Intact Abductor Strength: 5/5 Pulses Intact: Yes Dependent Edema: No Neurological Status Intact: Yes REVIEW OF XRAYS/STUDIES: Radiographs ordered and show excellent component alignment and excellent fixation. DX: Edgardo Elkins is a 48 y.o. male. The encounter diagnosis was Aftercare following left hip joint replacement surgery. TREATMENT PLAN: 1. The patient has been full weight bearing. RIAL HANDLER LOADER documented in this encounter Plan of Treatment Not on file documented as of this encounter Results * XR Hip Left 2 or 3 Views W Pelvis (11/26/2018 10:26 AM MATERIAL HANDLER LOADER) Anatomical Region Laterality Modality Lower Extremities, Hip, Pelvis Left C omputed Radiography 11/26/2018 10:2 9 AM MATERIAL HANDLER LOADER Impressions 11/26/2018 10:29 AM MATERIAL HANDLER LOADER 1. Unchanged left total hip arthroplasty in near-anatomic alignment. 2. 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 Electronically signed by: Maurilio Bentley M.D. Narrative 11/26/2018 10:29 AM MATERIAL HANDLER LOADER EXAMINATION: XR HIP LEFT 2 OR 3 VIEWS W PELVIS HISTORY: Left hip osteoarthritis, primary. FINDINGS: A single AP radiograph of the pelvis excluding the iliac crests and a crosstable lateral radiograph of the left hip are submitted for interpretation with comparison made to radiographs dated November 27, 2017. There is unchanged left total hip arthroplasty in near anatomic position. There is progressive heterotopic ossification about the left hip. There is unchanged necrosis of the right femoral head without evidence of articular collapse. The right hip joint space is grossly preserved. Procedure Note Maurilio Bentley MD - 11/26/2018 EXAMINATION: XR HIP LEFT 2 OR 3 VIEWS W PELVIS HISTORY: Left hip osteoarthritis, primary. FINDINGS: A single AP radiograph of the pelvis excluding the iliac crests and a crosstable lateral radiograph of the left hip are submitted for interpretation with comparison made to radiographs dated November 27, 2017. There is unchanged left total hip arthroplasty in near anatomic position. There is progressive heterotopic ossification about the left hip. There is unchanged necrosis of the right femoral head without evidence of articular collapse. The right hip joint space is grossly preserved. IMPRESSION: 1. Unchanged left total hip arthroplasty in near-anatomic alignment. 2. 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 Electronically signed by: Maurilio Bentley M.D. Thanh Gold MD IMG XR PROCEDURES Final Res ult documented in this encounter Visit Diagnoses Diagnosis Aftercare following left hip joint replacement surgery- Primary Aftercare following left hip joint replacement surgery documented in this encounter Discontinued Medications Medication Sig Discontinue Reason Start Date End Da te vedolizumab (ENTYVIO) 300 mg recon soln Infuse 300 mg into a venous catheter. 12/27/2017 11/26/2018 TESTOSTERONE, BULK, MISC 1 mL. 019 diphenoxylate-atropine (LOMOTIL) 2.5-0.025 mg per tabletIndications:diarrh ea Take 1 tablet by mouth every 6 hours as needed. 06/06/2018 11/26/2018 metroNIDAZOLE (FLAGYL) 250 mg tablet Take 250 mg by mouth 3 times daily. 09/19/2017 11/26/2018 metroNIDAZOLE (FLAGYL) 500 mg tablet Take 500 mg by mouth 3 times daily. 08/28/2018 11/26/2018 documented as of this encounter Historical Medications * This list may reflect changes made after this encounter. metroNIDAZOLE (FLAGYL) 500 mg tablet Take 500 mg by mouth 3 times daily. 08/28/2018 11/26/2018 metroNIDAZOLE (FLAGYL) 250 mg tablet Take 250 mg by mouth 3 times daily. 09/19/2017 11/26/2018 diphenoxylate-atr opine (LOMOTIL) 2.5-0.025 mg per tabletIndications :diarrhea Take 1 tablet by mouth every 6 hours as needed. 06/06/2018 11/26/2018 vedolizumab (ENTYVIO) 300 mg recon soln Infuse 300 mg into a venous catheter. 12/27/2017 11/26/2018 TESTOSTERONE, BULK, MISC 1 mL. 11/26/2018 added in this encounter Care Teams Food Safety Scientist Relationship Specialty Start Date End Date Jasiel Freeman MD PCP - General 09/29/17 documented as of this encounter
--- OUTSIDE RECORDS SUMMARY | 2024-10-24 05:26 | XMS_ITS | Encounter Summary ---
Author Organization [facility] Healthcare Address [address] [place] [address] Care Team Providers Care Railroad Signal Operator Name Role Phone Unavailable Primary Care Provider Unavailabl e Encounter Details Date Type Department Care Team (Late st Contact Info) Description 08/15/2012 10:10 AM CDT - 08/15/2012 1:50 PM CDT Hospital Encounter [facility] Jameson Humphries MD [address] [place] [address] Edema; Disturbance of skin sensation Social History Tobacco Use Types Packs/Day Years Used Date Smoking Tobacco: Never Assessed Sex and Gender Information Value Date Recorded Sex Assigned at Not on file Legal Sex Male 11:53 PM BUILDER BEAM Gender Identity Not on file Sexual Orientation Not on file documented as of this encounter Plan of Treatment Not on file documented as of this encounter Visit Diagnoses Diagnosis Edema Disturbance of skin sensation documented in this encounter
--- OUTSIDE RECORDS SUMMARY | 2024-10-24 05:26 | XMS_ITS | Encounter Summary ---
Author Organization [facility] Healthcare Address [address] [place] [address] Care Team Providers Care School Counselor Name Role Phone Unavailable Primary Care Provider Unavailabl e Encounter Details Date Type Department Care Team (Late st Contact Info) Description 01/14/2010 10:15 AM CDT - 01/14/2010 11:59 PM CDT Hospital Encounter [facility] Social History Tobacco Use Types Packs/Day Years Used Date Smoking Tobacco: Never Assessed Sex and Gender Information Value Date Recorded Sex Assigned at Not on file Legal Sex Male 11:53 PM FUR DRY CLEANER Gender Identity Not on file Sexual Orientation Not on file documented as of this encounter Plan of Treatment Not on file documented as of this encounter Visit Diagnoses Not on filedocumented in this encounter
--- OUTSIDE RECORDS SUMMARY | 2024-10-24 05:26 | XMS_ITS | Encounter Summary ---
Author Organization [facility] Healthcare Address [address] [place] [address] Care Team Providers Care Assembler Unit Name Role Phone Martin Hopper MD Primary Care Provider + Encounter Details Date Type Department Care Team (Latest Contact Info) Description 09/21/2017 8:04 AM POWER SYSTEMS ENGINEER - 09/21/2017 11:59 PM POWER SYSTEMS ENGINEER Hospital Encounter [facility] INTERIM [phone] Thanh Gold MD [address] [facility] [address] [place] [address] Discharge Disposition: Discharge to home or self care Social History Tobacco Use Types Packs/Day Years Used Date Smoking Tobacco: Former Sex and Gender Information Value Date Recorded Sex Assigned at Not on file Legal Sex Male 11:53 PM POWER SYSTEMS ENGINEER Gender Identity Not on file Sexual Orientation Not on file documented as of this encounter Last Filed Vital Signs Vital Sign Reading Time Taken Comments Blood Pressure - - Pulse - - Temperature - - Respiratory Rate - - Oxygen Saturation - - Inhaled Oxygen Concentration - - Weight 86.6 kg (190 lb 15.8 oz) 09/21/2017 8:24 AM POWER SYSTEMS ENGINEER Height 175.3 cm (5' 9 ) 09/21/2017 8:24 AM POWER SYSTEMS ENGINEER Body Mass Index 28.2 09/21/2017 8:24 AM POWER SYSTEMS ENGINEER documented in this encounter Medications at Time [...] Procedure Name Priority Date/Time Associated Diagnosis Comments TYPE AND SCREEN 14 DAY After X-Ray 09/21/2017 9:36 AM POWER SYSTEMS ENGINEER VITAMIN D 25 HYDROXY After X-Ray 09/21/2017 9:36 AM POWER SYSTEMS ENGINEER CBC WITHOUT DIFFERENTIAL After X-Ray 09/21/2017 9:36 AM POWER SYSTEMS ENGINEER COMPREHENSIVE METABOLIC PANEL After X-Ray 09/21/2017 9:36 AM POWER SYSTEMS ENGINEER DISCHARGE LABORATORY CUMULATIVE REPORT 09/21/2017 12:00 AM POWER SYSTEMS ENGINEER documented in this encounter Results * (ABNORMAL) Vitamin D 25 hydroxy (09/21/2017 9:36 AM POWER SYSTEMS ENGINEER) Vitamin D 25-OH 28.1(L) 30.0 - 100.0 ng/mL [facility] Blood specimen (specimen) 09/21/2017 9:36 AM POWER SYSTEMS ENGINEER 09/21/2017 10:51 AM POWER SYSTEMS ENGINEER Narrative [facility] - 09/21/2017 12:19 PM POWER SYSTEMS ENGINEER us Thanh Gold MD LAB BLOOD ORDERABLES Final Result [facility] Department [place] [address] * TYPE AND SCREEN 14 DAY (09/21/2017 9:36 AM POWER SYSTEMS ENGINEER) ABO Rh B Positive [facility] Karri, indirect Negative [facility] Blood specimen (specimen) 09/21/2017 9:36 AM POWER SYSTEMS ENGINEER 09/21/2017 10:41 AM POWER SYSTEMS ENGINEER Narrative [facility] - 09/21/2017 12:18 PM POWER SYSTEMS ENGINEER Dottie Calix CELLOPHANE PRESS OPERATOR LAB BLOOD BANK TEST ORDERABLE S Final Result [facility] Department [place] [address] * Comprehensive metabolic panel (09/21/2017 9:36 AM POWER SYSTEMS ENGINEER) Pathologist [facility] Sodium 139 135 - 145 mmol/L [facility] Potassium, pl 4.0 3.3 - 4.9 mmol/L [facility] CO2 29 22 - 32 mmol/L [facility] BUN 13 8 - 25 mg/dL [facility] Glucose 72 70 - 199 mg/dL [facility] Comment: Interpretive Data Fasting glucose >/= 126 mg/dl is diagnostic for diabetes. ?? Fasting is defined as no caloric intake for at least 8 hours. Fasting glucose between 100 mg/dl to 125 mg/dl is diagnostic of prediabetes. In a patient with classic symptoms of hyperglycemia or hyperglycemic crisis, a random glucose >/= 200 mg/dl is diagnostic for diabetes. In the absence of unequivocal hyperglycemia, results should be confirmed by repeat testing. The classification and Diagnosis of Diabetes Diabetes Care 2017;40 (Suppl. 1):S11. Current interpretive data was last revised 2017. Creatinine 1.26 0.80 - 1.30 mg/dL [facility] Calcium 9.4 8.5 - 10.3 mg/dL [facility] Chloride 101 97 - 110 mmol/L [facility] Albumin 4.3 3.5 - 5.0 g/dL [facility] AST 32 10 - 50 Units/L [facility] ALT 31 7 - 55 Units/L [facility] Alk phos 72 40 - 130 Units/L [facility] Bilirubin, total 0.6 0.1 - 1.2 mg/dL [facility] Protein, pl 7.9 6.5 - 8.5 g/dL [facility] Anion gap 9 2 - 15 mmol/L [facility] Blood specimen (specimen) 09/21/2017 9:36 AM POWER SYSTEMS ENGINEER 09/21/2017 10:51 AM POWER SYSTEMS ENGINEER Narrative [facility] - 09/21/2017 11:17 AM POWER SYSTEMS ENGINEER Thanh Gold MD LAB BLOOD ORDERABLES Final Result Performing Organization Address [facility] Co de Phone Number [facility] Department [place] [address] * (ABNORMAL) CBC without differential (09/21/2017 9:36 AM POWER SYSTEMS ENGINEER) [facility] WBC 7.00 3.80 - 9.90 K/cumm [facility] RBC 6.43(H) 4.30 - 5.80 M/cumm [facility] Hgb 17.6(H) 13.0 - 17.5 g/dL [facility] Hct 55.3(H) 38.9 - 50.3 % [facility] MCV 86.0 81.3 - 96.4 fL [facility] MCH 27.4 27.1 - 33.3 pg [facility] MCHC 31.8(L) 32.3 - 35.7 g/dL [facility] RDW CV 13.7 11.1 - 14.9 % [facility] RDW SD 42.9 35.7 - 48.1 fL [facility] NRBC 0.0 0.0 - 0.2 % [facility] NRBC abs 0.00 0.00 - 0.01 K/cumm [facility] Plt 298 150 - 400 K/cumm [facility] MPV 10.3 9.1 - 12.3 fL [facility] Blood specimen (specimen) 09/21/2017 9:36 AM POWER SYSTEMS ENGINEER 09/21/2017 10:52 AM POWER SYSTEMS ENGINEER Narrative [facility] - 09/21/2017 11:08 AM POWER SYSTEMS ENGINEER Dottie Calix NP LAB BLOOD ORDERABLES Final Re sult Performing Organization Address [facility] Co de Phone Number [facility] Department [place] [address] * DISCHARGE LABORATORY CUMULATIVE REPORT (09/21/2017 12:00 AM POWER SYSTEMS ENGINEER) Narrative 09/21/2017 12:00 AM POWER SYSTEMS ENGINEER Ordered by an unspecified provider. us Historical Provider LAB BLOOD ORDERABLES Padma l Result documented in this encounter Visit Diagnoses Not on filedocumented in this encounter Care Teams Assembler Unit Relationship Specialty [place] [id number] [facility] [address] [place] [address] PCP - General 08/11/17 09/25/17 documented as of this encounter
--- OUTSIDE RECORDS SUMMARY | 2024-10-24 05:26 | XMS_ITS | Clinical Summary ---
Author Organization [facility] Address [address] [place] [id number] Care Team Providers Care Cylinder Press Operator Apprentice Name Role Phone Jasiel Freeman MD Primary Care Provider Allergies Active Allergy Reactions Criticality Noted Date Comments Infliximab Rash Medium 07/26/2012 Medications PROAIR HFA 90 mcg/actuation inhaler INL 2 PFS PO Q 4 TO 6 H PRF COUGH 0 08/31/2018 Active diphenoxylate-a tropine (LOMOTIL) 2.5-0.025 mg per tabletIndicatio ns:diarrhea TK 1 T QID PRN FOR DIAREHHA OR LOOSE STOOL 1 08/20/2018 Active BD LUER-RITO SYRINGE 3 mL 22 x 1 1/2 syringe U UTD 11 10/09/2018 Active testosterone cypionate (DEPO-TESTOTERO NE) 200 mg/mL injection INJECT 1 ML INTO MUSCLE WEEKLY 5 10/09/2018 Active SPIRIVA RESPIMAT 2.5 mcg/actuation inhaler INL 2 PFS PO D 0 08/20/2018 Active valACYclovir (VALTREX) 1 gram tablet TK 2 TS PO BID 4 10/02/2018 Active vedolizumab (ENTYVIO IV) Infuse into a venous catheter Active ergocalciferol (VITAMIN D) 50,000 unit capsule TAKE 1 CAPSULE BY MOUTH EVERY 7 DAYS FOR 60 DAYS, THEN 1 CAPSULE (50,000 UNITS) EVERY 30 DAYS. 02/21/2019 Active montelukast (SINGULAIR) 10 mg tablet Take 1 tablet (10 mg total) by mouth daily Active omeprazole (PriLOSEC) 40 mg capsule Take by mouth daily Active Skyrizi 360 mg/2.4 mL (150 mg/mL) wearable injector Inject 360 mg under the skin every 8 (eight) weeks 01/23/2024 Active tamsulosin (FLOMAX) 0.4 mg extended release capsuleIndicati ons:Flank pain Take 1 capsule (0.4 mg total) by mouth daily for 5 days 5 capsule 05/10/2024 Active ondansetron (ZOFRAN) 4 mg tabletIndicatio ns:Flank pain Take 2 tablets (8 mg total) by mouth every 8 (eight) hours as needed for nausea or vomiting 6 tablet 05/10/2024 Active Active Problems Problem Noted Date Diagnosed Date Arthralgia of hip 06/14/2017 Inflammatory bowel disease 06/26/2012 Malnutrition ([facility]) 02/27/2012 Protein calorie malnutrition ([facility]) 2 Acute bronchitis 02/23/2012 JORGE (acute kidney injury) 02/23/2012 Metabolic acidosis 02/23/2012 Pouchitis 02/23/2012 Sepsis 02/23/2012 SIRS (systemic inflammatory response syndrome) 0 02/23/2012 Ulcerative colitis 02/23/2012 Abdominal pain 02/22/2012 Hyponatremia 02/22/2012 Family History Medical History Relation Name Comments Seizures Other 1 Family history of seizures - (Added by TW Conv) Hypertension Other 2 Family history of hypertension - (Added by TW Conv) Relation Name Status Comments Other 1 Other 2 Social History Tobacco Use Types Packs/Day Years Used Date Smoking Tobacco: Former Personal Safety Answer Date Recorded Getting School Help Needed Not on file 01/05 Sex and Gender Information Value Date Recorded Sex Assigned at Not on file Legal Sex Male 11:53 PM TAR CHASER Gender Identity Not on file Sexual Orientation Not on file Obstetrics History Last Filed Vital Signs Vital Sign Reading [...] Mass Index 28.12 05/10/2024 7:01 PM CDT Plan of Treatment Health Maintenance Due Date Last Done Comments Colon Cancer Screening-Colonoscopy 1970 Depression Screening 1970 Hepatitis C Screening 1970 Prostate Cancer Screening-PSA 1970 DTaP/Tdap/Td Vaccine (1 - Tdap) 1981 Hepatitis B Screening 1988 Regular Well Visit/Exam 18-64 1988 Zoster Vaccine (1 of 2) 2020 Covid-19 Vaccine (3 - 2023-2 5 season) 2024 01/21/2021, 12/31/2020 Influenza Vaccine (#1) 2024 Pneumococcal vaccine <65 Aged Out 018, 10/30/2017 No longer eligible based on patient's age to complete this topic Insurance [facility] H[facility] Care Teams Cylinder Press Operator Apprentice Relationship Specialty Start Date End Date Jasiel Freeman MD PCP - General 09/29/17
--- OUTSIDE RECORDS SUMMARY | 2024-10-24 05:26 | XMS_ITS | Encounter Summary ---
Author Organization [facility] Healthcare Address [address] [place] [address] Care Team Providers Care Cushion Cover Inspector Name Role Phone Unavailable Primary Care Provider Unavailabl e Encounter Details Date Type Department Care Team (Late st Contact Info) Description 12/31/2012 5:20 PM CDT - 12/31/2012 11:59 PM CDT [facility], Albert Fiore MD [address] [address] Brachial neuritis; Displacement of cervical intervertebral disc without myelopathy Social History Tobacco Use Types Packs/Day Years Used Date Smoking Tobacco: Never Assessed Sex and Gender Information Value Date Recorded Sex Assigned at Not on file Legal Sex Male 11:53 PM LUDLOW MACHINE OPERATOR Gender Identity Not on file Sexual Orientation Not on file documented as of this encounter Plan of Treatment Not on file documented as of this encounter Procedures Procedure Name Priority Date/Time Associated Diagnosis Comments BLOOD WBC CELL MORPHOLOGIC EXAM, AUTO Routine 12/31/2012 5:30 PM CDT BLOOD CELL COUNT (CBC) Routine 12/31/2012 5:30 PM CDT DISCHARGE LABORATORY CUMULATIVE REPORT Routine 12/31/2012 12:00 AM CDT documented in this encounter Results * (ABNORMAL) Blood cell count (CBC) (12/31/2012 5:30 PM CDT) WBC 8.9 4.0 - 10.5 K/cumm HISTORICAL RESULTS RBC 5.07 4.60 - 6.20 M/cumm HISTORICAL RESULTS Hgb 11.3(L) 14.0 - 18.0 g/dl HISTORICAL RESULTS Hct 37.6(L) 40.0 - 54.0 % HISTORICAL RESULTS MCV 74.2(L) 77.0 - 97.0 fl HISTORICAL RESULTS MCH 22.3(L) 23.0 - 34.0 pg HISTORICAL RESULTS MCHC 30.1(L) 32.0 - 36.0 g/dl HISTORICAL RESULTS Rdw 15.3(H) 11.5 - 14.5 % HISTORICAL RESULTS Platelets 393 150 - 451 K/cumm HISTORICAL RESULTS MPV 9.4 7.4 - 10.4 fl HISTORICAL RESULTS Blood specimen (specimen) 12/31/2012 5:30 PM CDT Albert Luz MD LAB BLOOD ORDERABLES Fi nal Result HISTORICAL RESULTS * (ABNORMAL) Blood WBC cell morphologic exam, auto (12/31/2012 5:30 PM CDT) Lymphocytes 16.7(L) 25.0 - 33.0 % HISTORICAL RESULTS Neutrophils 68.1 54.0 - 69.0 % HISTORICAL RESULTS Monos 13.0 1.0 - 13.0 % HISTORICAL RESULTS Eosinophils 1.7 0.0 - 10.0 % HISTORICAL RESULTS Basophils 0.4 0.0 - 1.0 % HISTORICAL RESULTS Immature granulocytes 0.1 % HISTORICAL RESULTS Lymphocytes, abs 1.5 1.2 - 3.4 K/cumm HISTORICAL RESULTS Monocytes, absolute 1.2 1.1 - 1.9 K/cumm HISTORICAL RESULTS Neutrophils, abs 6.1 1.4 - 6.5 K/cumm HISTORICAL RESULTS Eosinophils, abs 0.2 0.0 - 0.7 cells/cum m HISTORICAL RESULTS Basophils, abs 0.0 0.0 - 0.2 K/cumm HISTORICAL RESULTS Immature granulocyte, abs 0 0 - 2 K/cumm HISTORICAL RESULTS Blood specimen (specimen) 12/31/2012 5:30 PM CDT Albert Luz MD LAB BLOOD ORDERABLES Fi nal Result HISTORICAL RESULTS * Discharge Laboratory Cumulative Report (12/31/2012 12:00 AM CDT) 12/31/2012 Narrative HISTORICAL RESULTS - 01/02/2013 12:24 AM CDT Patient No: [id number] ? [facility] Patient Name: MUKUL ELKINS ?[facility] Age: 42 YRS ?: 1970 ?Sex:M ?[address] )[phone] ?? Adm Dt: 12/31/2012 ?[place], [place] ??[address] Created: 01/02/2013 ??0024 ?? Pt. Type: R ? Discharge Dt: 12/31/2012 ? Pathologists: Kathrin Billy MD Admit Attend : ALBERT LUZ ? BLOOD CELL COUNTS ?Collection Date: ?12/31/12 ?Collection Time: ?1730 ? Ref Range: ?? Units: [4.00-10.50] /CMM ? WBC X 10^3 ?8.92 [4.60-6.20] ??/CMM ? RBC X 10^6 ?5.07 [14.0-18.0] ??G/DL ? HGB ? 11.3 L [40.0-54.0] ??% ?HCT ? 37.6 L [77.0-97.0] ??FL ? MCV ? 74.2 L [23.0-34.0] ??PG ? MCH ? 22.3 L [32.0-36.0] ??% ?MCHC ?30.1 L [11.5-14.5] ??% ?RDW ? 15.3 H [150-451] ?? /CMM ? PLT X 10^3 ? 393 ?BLOOD CELL DIFFERENTIAL ?Collection Date: ?12/31/12 ?Collection Time: ?1730 ? Ref Range: ?? Units: [54.0-69.0] ??% ?NEUTROPHILS ? 68.1 [25.0-33.0] ??% ?LYMPHOCYTES ? 16.7 L [1.0-13.0] ??% ?MONOCYTES ? 13.0 [0.0-10.0] ??% ?EOSINOPHILS ?1.7 [0.0-1.0] ?? % ?BASOPHILS ?0.4 ? /CMM ? A LYMPHOCYTE ? 1.5 ? % ?IMM GRAN % ? 0.1 [0.00-2.00] ??/CMM ? A IMM GRAN ?0.10 [1.1-1.9] ?? /CMM ? A MONOCYTE ? 1.2 [1.4-6.5] ?? /CMM ? A NEUTROPHIL ? 6.1 [0.0-0.7] ?? /CMM ? A EOSINOPHIL ? 0.2 [0.0-0.2] ?? /CMM ? A BASOPHIL ? 0.0 Footnotes and Symbols: L = Low, H = High ?? END OF CHART ? Page: ?? 1 us Historical Provider LAB BLOOD ORDERABLES Padma rucker Result HISTORICAL RESULTS documented in this encounter Visit Diagnoses Diagnosis Brachial neuritis Brachial neuritis or radiculitis nos Displacement of cervical intervertebral disc without myelopathy documented in this encounter
--- OUTSIDE RECORDS SUMMARY | 2024-10-24 05:26 | XMS_ITS | Encounter Summary ---
Author Organization [facility] Healthcare Address [address] [place] [id number] Care Team Providers Care Bootmaker Name Role Phone Jasiel Freeman MD Primary Care Provider Reason for Referral * Diagnostic Imaging (Routine) - Closed Specialty Diagnoses / Procedures Referred By Contac t Referred To Contact Diagnoses Aftercare following left hip joint replacement surgery Procedures XR Hip Left 2 or 3 Views W Pelvis Thanh Gold MD Phone: tel: fax: [facility] Orthopedic Center Referral ID Status Reason Start Date Expiration Date Visits Re quested Visits Authorized Closed 11/23/2018 06/03/2020 1 1 MENT AIRCRAFT MECHANIC Reason for Visit * Diagnostic Imaging (Routine) - Closed Specialty Diagnoses / Procedures Referred By Contac t Referred To Contact Diagnoses Aftercare following left hip joint replacement surgery Procedures XR Hip Left 2 or 3 Views W Pelvis Thanh Gold MD Phone: tel: fax: [facility] Orthopedic Center Referral ID Status Reason Start Date Expiration Date Visits Re quested Visits Authorized [id number] Closed 11/23/2018 06/03/2020 1 1 Encounter Details Date Type Department Care Team (Latest Contact Info) Description 11/26/2018 10:03 AM ARMAMENT AIRCRAFT MECHANIC - 11/26/2018 11:59 PM ARMAMENT AIRCRAFT MECHANIC Hospital Encounter [facility] [address] [place] [id number] Thanh Gold MD [address] [facility] [address] [place] [address] Aftercare following left hip joint replacement surgery Discharge Disposition: Discharge to home or self care Social History Tobacco Use Types Packs/Day Years Used Date Smoking Tobacco: Former Sex and Gender Information Value Date Recorded Sex Assigned at Not on file Legal Sex Male 11:53 PM ARMAMENT AIRCRAFT MECHANIC Gender Identity Not on file Sexual Orientation Not on file documented as of this encounter Medications at Time of Discharge BD LUER-RITO SYRINGE 3 mL 22 x 1 1/2 syringe U UTD 11 10/09/2018 diphenoxylate-at ropine (LOMOTIL) 2.5-0.025 mg per tabletIndication s:diarrhea TK 1 T QID PRN FOR DIAREHHA OR LOOSE STOOL 1 08/20/2018 PROAIR HFA 90 mcg/actuation inhaler INL 2 PFS PO Q 4 TO 6 H PRF COUGH 0 08/31/2018 SPIRIVA RESPIMAT 2.5 mcg/actuation inhaler INL 2 PFS PO D 0 08/20/2018 testosterone cypionate (DEPO-TESTOTERON E) 200 mg/mL injection INJECT 1 ML INTO MUSCLE WEEKLY 5 10/09/2018 valACYclovir (VALTREX) 1 gram tablet TK 2 TS PO BID 4 10/02/2018 adalimumab (HUMIRA) 40 mg/0.8 mL pen injector kit 05/10/2024 azithromycin (ZITHROMAX) 250 mg tablet ZPK 0 10/29/2018 05/10/2024 meloxicam (MOBIC) 15 mg tablet daily. 11/27/2017 05/10/2024 metroNIDAZOLE (FLAGYL) 500 mg tablet TK 1 T PO TID 0 08/30/2018 05/10/2024 mupirocin (BACTROBAN) 2 % ointment Apply small amount inside each nostril using clean q-tip each nostril BID start 5 days before surgery 08/11/2017 05/10/2024 documented as of this encounter Discharge Disposition Disposition Code Departure Means Destination Discharge to home or self care documented in this encounter Plan of Treatment Not on file documented as of this encounter Procedures Procedure Name Priority Date/Time Associated Diagnosis Comments XR HIP LEFT W PELVIS 2 OR 3 VIEWS Schedule Routine, Read Routine (OP Routine) 11/26/2018 10:26 AM ARMAMENT AIRCRAFT MECHANIC Aftercare following left hip joint replacement surgery documented in this encounter Results * XR Hip Left 2 or 3 Views W Pelvis (11/26/2018 10:26 AM ARMAMENT AIRCRAFT MECHANIC) Anatomical Region Laterality Modality Lower Extremities, Hip, Pelvis Left C omputed Radiography 11/26/2018 10:2 9 AM ARMAMENT AIRCRAFT MECHANIC Impressions 11/26/2018 10:29 AM ARMAMENT AIRCRAFT MECHANIC 1. Unchanged left total hip arthroplasty in near-anatomic alignment. 2. 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 Electronically signed by: Maurilio Bentley M.D. Narrative 11/26/2018 10:29 AM ARMAMENT AIRCRAFT MECHANIC EXAMINATION: XR HIP LEFT 2 OR 3 [...] Diagnosis Aftercare following left hip joint replacement surgery documented in this encounter Care Teams Bootmaker Relationship Specialty Start Date End Date Jasiel Freeman MD PCP - General 09/29/17 documented as of this encounter
--- OUTSIDE RECORDS SUMMARY | 2024-10-24 05:26 | XMS_ITS | Encounter Summary ---
Author Organization [facility] Address [address] [place] [address] [address] [place] [address] Care Team Providers Care Advice Nurse Name Role Phone Jasiel Freeman MD Primary Care Provider Reason for Visit * Reason Onset Date Comments Covid-19 Home Monitoring 08/21/2021 Encounter Details Date Type Department Care Team (Late st Contact Info) Description 08/21/2021 Telephone [facility] Care Organization [address] [place] [address] More Cano MA [address] [place] [address] Covid-19 Home Monitoring Social History Tobacco Use Types Packs/Day Years Used Date Smoking Tobacco: Former Sex and Gender Information Value Date Recorded Sex Assigned at Not on file Legal Sex Male 11:53 PM LATHE SETUP OPERATOR Gender Identity Not on file Sexual Orientation Not on file documented as of this encounter Miscellaneous Notes * Telephone Encounter - More Cano MA - 08/21/2021 12:48 PM CDT This patient was identified as a candidate for the [facility]/ COVID home monitoring program. The patient was contacted via phone for enrollment in the program. The patient has declined to participate in the automated MyChart White Washer Program, but has verbally agreed to the Phone Only Home Monitoring Program, which includes being contacted for a daily phone assessment by a [facility]/ staff member. The patient was informed that members of the healthcare team will contact them depending on the symptoms that they report. This call could come from a variety of phone numbers depending on which member of the healthcare team is contacting the patient, and the patient should be prepared to answer calls from a variety of phone numbers. If the patient is unable to be reached for 3 days, they will be disenrolled from the program. Patient is aware that we will try and reach them at every available phone number, including HIPAA contacts. After review, the patient declined to participate. The ???COVID19 Home Monitoring?? order was not placed to enroll the patient in the phone only version of the program. * Telephone Encounter - More Cano MA - 08/21/2021 10:42 AM CDT COVID Home Monitoring Enrollment - No Response This patient was identified as a candidate for the [facility]/ COVID-19 home monitoring program. The patient was contacted via phone for enrollment in the program, but could not be reached to accept or decline. Next program call due: 08/21 documented in this encounter Plan of Treatment Not on file documented as of this encounter Visit Diagnoses Not on filedocumented in this encounter Additional Health Concerns Infection Onset Date Last Indicated Resolved Time COVID19 08/19/2021 08/19/2021 09/02/2021 3:05 AM LATHE SETUP OPERATOR documented as of this encounter Care Teams Advice Nurse Relationship Specialty Start Date End Date Jasiel Freeman MD PCP - General 09/29/17 documented as of this encounter
--- OUTSIDE RECORDS SUMMARY | 2024-10-24 05:26 | XMS_ITS | Encounter Summary ---
Author Organization [facility] Healthcare Address [address] [place] [address] Care Team Providers Care Role Player Name Role Phone Unavailable Primary Care Provider Unavailabl e Encounter Details Date Type Department Care Team (Late st Contact Info) Description 12/19/2012 8:15 AM MAINTENANCE AND ENGINEERING MANAGER - 12/19/2012 11:59 PM MAINTENANCE AND ENGINEERING MANAGER Hospital Encounter [facility] Lacey, Albert Fiore MD [address] [address] Cervicalgia; Degeneration of cervical intervertebral disc; Brachial neuritis; Myalgia and myositis; Spinal stenosis in cervical region Social History Tobacco Use Types Packs/Day Years Used Date Smoking Tobacco: Never Assessed Sex and Gender Information Value Date Recorded Sex Assigned at Not on file Legal Sex Male 11:53 PM MAINTENANCE AND ENGINEERING MANAGER Gender Identity Not on file Sexual Orientation Not on file documented as of this encounter Plan of Treatment Not on file documented as of this encounter Visit Diagnoses Diagnosis Cervicalgia Degeneration of cervical intervertebral disc Brachial neuritis Brachial neuritis or radiculitis nos Myalgia and myositis Unspecified myalgia and myositis Spinal stenosis in cervical region documented in this encounter
--- OUTSIDE RECORDS SUMMARY | 2024-10-24 05:26 | XMS_ITS | Encounter Summary ---
Author Organization [facility] Healthcare Address [address] [place] [address] Care Team Providers Care Agricultural Engineering Technician Name Role Phone Unavailable Primary Care Provider Unavailabl e Encounter Details Date Type Department Care Team (Late st Contact Info) Description 11/28/2012 9:35 AM CLEANERS - 11/28/2012 11:59 PM CLEANERS Hospital Encounter [facility] [place], [place] [address] [place] [address] Social History Tobacco Use Types Packs/Day Years Used Date Smoking Tobacco: Never Assessed Sex and Gender Information Value Date Recorded Sex Assigned at Not on file Legal Sex Male 11:53 PM CLEANERS Gender Identity Not on file Sexual Orientation Not on file documented as of this encounter Plan of Treatment Not on file documented as of this encounter Visit Diagnoses Not on filedocumented in this encounter
--- OUTSIDE RECORDS SUMMARY | 2024-10-24 05:26 | XMS_ITS | Encounter Summary ---
Author Organization [facility] Healthcare Address [address] [place] [address] Care Team Providers Care Start Up Specialist Name Role Phone Jasiel Freeman MD Primary Care Provider Encounter Details Date Type Department Care Team (Latest Contact Info) Description 10/03/2017 8:09 AM SKILLED NURSING FACILITY COUNSELOR - 10/03/2017 8:20 PM SKILLED NURSING FACILITY COUNSELOR Hospital Encounter [facility] [address] [place] [address] Thanh Gold MD [address] [facility] [address] [place] [address] Discharge Disposition: Discharge to home or self care Social History Tobacco Use Types Packs/Day Years Used Date Smoking Tobacco: Former Sex and Gender Information Value Date Recorded Sex Assigned at Not on file Legal Sex Male 11:53 PM SKILLED NURSING FACILITY COUNSELOR Gender Identity Not on file Sexual Orientation Not on file documented as of this encounter Last Filed Vital Signs Vital Sign Reading Time Taken Comments Blood Pressure - - Pulse - - Temperature - - Respiratory Rate - - Oxygen Saturation - - Inhaled Oxygen Concentration - - Weight - - Height 175.3 cm (5' 9 ) 09/21/2017 8:24 AM SKILLED NURSING FACILITY COUNSELOR Body Mass Index - - documented in this encounter Medications at Time [...] or self care documented in this encounter Miscellaneous Notes * Op Note - ProviderLisandra MD - 10/03/2017 12:00 AM CST Patient: MUKUL ELKINS Reg No: [id number] U H #: [id number] Admit Dt.: 10/03/2017 : 1970 Pt Type: [facility] Room No: 3SI49-78 Attending: Thanh Gold M.D. Surgeon: Thanh Gold M.D. Dictating: Tomasz Lion MD Service Dt: 10/03/2017 OPERATIVE REPORT FACILITY ID: [facility] SURGEON Thanh Gold MD FIRST PLAN CONSULTANT Tomasz Lion MD SECOND PLAN CONSULTANT Dagoberto Coyne MD PREOPERATIVE DIAGNOSIS Left hip arthritis. POSTOPERATIVE DIAGNOSIS Left hip arthritis. OPERATION None performed - see details below ANESTHESIA Spinal with sedation. ESTIMATED BLOOD LOSS None. IV FLUIDS 1 L. URINE OUTPUT 300 mL. SPECIMENS None. COMPLICATIONS Procedure cancelled INDICATIONS FOR PROCEDURE The patient is a 47-year-old male with a history of advanced left hip arthritis who had been seen in clinic and had been indicated for left total hip arthroplasty due to failure of conservative measures. After discussion of risks, benefits, alternatives, and expected postoperative course the patient presented today to undergo the planned procedure as listed above. DESCRIPTION OF PROCEDURE The patient was met in the preoperative holding area by the surgical and anesthetic teams. He was identified by name, date of , and medical record number. In the preoperative holding area after informed consent process was completed, the patient had a spinal anesthetic performed by the anesthesia team without complication and a Benito catheter was placed under sterile condition. The patient was then brought to the operating room and placed on the operating table in a lateral decubitus position. Immediately upon patient positioning it was noted that the patient had had an episode of fecal incontinence. The patient was cleaned and the sheets changed, however, several more fecal incontinence episodes occurred and it was decided that in order to not compromise sterility and avoid the risk for infection, it would be better to postpone the procedure until a plan was in place in order to manage this issue. Of note, the patient does have a history of ulcerative colitis and is status post a colectomy. He does not have fecal incontinence at baseline so preparations had not been made in advance to handle this issue. As such, the patient was returned to the supine position and transferred back to the recovery room in stable condition having suffered no complications. No surgical procedure was performed. POSTOPERATIVE PLAN The patient will be rescheduled and we will make appropriate arrangements in order to avoid this issue on his next trip to the operating room. ATTENDING PRESENCE The attending was immediately available for all portions of this trip to the operating room. SPONGE, NEEDLE AND INSTRUMENT COUNT Not required as no procedure was performed. Electronically Authenticated and Edited by: Tomasz Lion MD On 10/12/2017 06:31 AM SKILLED NURSING FACILITY COUNSELOR Electronically Authenticated and Edited by: Thanh Gold MD On 10/18/2017 02:59 PM SKILLED NURSING FACILITY COUNSELOR Tomasz Lion MD Thanh Gold M.D. AE:[facility] #[id number] Editing MT: TD: 10/11/2017 10:32 PM cc: Luis Enrique Madden MD documented in this encounter Plan of Treatment Not on file documented as of this encounter Procedures Procedure Name Priority Date/Time Associated Diagnosis Comments B CHECK SAMPLE STAT 10/03/2017 5:00 AM SKILLED NURSING FACILITY COUNSELOR DISCHARGE LABORATORY CUMULATIVE REPORT 10/03/2017 12:00 AM SKILLED NURSING FACILITY COUNSELOR documented in this encounter Results * B Check Sample (10/03/2017 5:00 AM SKILLED NURSING FACILITY COUNSELOR) ABO Rh B Positive [facility] OTHER 10/03/2017 5:00 AM SKILLED NURSING FACILITY COUNSELOR 10/03/2017 8:56 AM SKILLED NURSING FACILITY COUNSELOR Narrative BRENDON KHAN - 10/03/2017 9:22 AM SKILLED NURSING FACILITY COUNSELOR us Thanh Gold MD LAB BLOOD ORDERABLES Final Result [facility] Department [place] [address] * DISCHARGE LABORATORY CUMULATIVE REPORT (10/03/2017 12:00 AM SKILLED NURSING FACILITY COUNSELOR) Narrative 10/03/2017 12:00 AM SKILLED NURSING FACILITY COUNSELOR Ordered by an unspecified provider. us Historical Provider LAB BLOOD ORDERABLES Padma l Result documented in this encounter Visit Diagnoses Not on filedocumented in this encounter Care Teams Start Up Specialist Relationship Specialty Start Date End Date Jasiel Freeman MD PCP - General 09/29/17 documented as of this encounter
--- OUTSIDE RECORDS SUMMARY | 2024-10-24 05:26 | XMS_ITS | Encounter Summary ---
Author Organization [facility] Healthcare Address [address] [place] [address] Care Team Providers Care Jewel Stripper Name Role Phone Jasiel Freeman MD Primary Care Provider Encounter Details Date Type Department Care Team (Latest Contact Info) Description 05/10/2024 7:57 PM CDT - 05/10/2024 11:59 PM CDT Hospital Encounter [address] [address] Flank pain Discharge Disposition: Discharge to home or self care Social History Tobacco Use Types Packs/Day Years Used Date Smoking Tobacco: Former Personal Safety Answer Date Recorded Getting School Help Needed Not on file 01/05 Sex and Gender Information Value Date Recorded Sex Assigned at Not on file Legal Sex Male 11:53 PM BANANA LOADER Gender Identity Not on file Sexual Orientation Not on file documented as of this encounter Medications at Time of Discharge BD LUER-RITO SYRINGE 3 mL 22 x 1 1/2 syringe U UTD 11 10/09/2018 diphenoxylate-atr opine (LOMOTIL) 2.5-0.025 mg per tabletIndications :diarrhea TK 1 T QID PRN FOR DIAREHHA OR LOOSE STOOL 1 08/20/2018 ergocalciferol (VITAMIN D) 50,000 unit capsule TAKE 1 CAPSULE BY MOUTH EVERY 7 DAYS FOR 60 DAYS, THEN 1 CAPSULE (50,000 UNITS) EVERY 30 DAYS. 02/21/2019 montelukast (SINGULAIR) 10 mg tablet Take 1 tablet (10 mg total) by mouth daily omeprazole (PriLOSEC) 40 mg capsule Take by mouth daily ondansetron (ZOFRAN) 4 mg tabletIndications :Flank pain Take 2 tablets (8 mg total) by mouth every 8 (eight) hours as needed for nausea or vomiting 6 tablet 05/10/2024 PROAIR HFA 90 mcg/actuation inhaler INL 2 PFS PO Q 4 TO 6 H PRF COUGH 0 08/31/2018 Skyrizi 360 mg/2.4 mL (150 mg/mL) wearable injector Inject 360 mg under the skin every 8 (eight) weeks 01/23/2024 SPIRIVA RESPIMAT 2.5 mcg/actuation inhaler INL 2 PFS PO D 0 08/20/2018 tamsulosin (FLOMAX) 0.4 mg extended release capsuleIndication s:Flank pain Take 1 capsule (0.4 mg total) by mouth daily for 5 days 5 capsule 05/10/2024 testosterone cypionate (DEPO-TESTOTERONE ) 200 mg/mL injection INJECT 1 ML INTO MUSCLE WEEKLY 5 10/09/2018 valACYclovir (VALTREX) 1 gram tablet TK 2 TS PO BID 4 10/02/2018 vedolizumab (ENTYVIO IV) Infuse into a venous catheter documented as of this encounter Discharge Disposition Disposition Code Departure Means Destination Discharge to home or self care documented in this encounter Miscellaneous Notes * Result Encounter Note - Tanvi Bass MA - 05/10/2024 11:59 PM CDT Left message for patient to call back to discuss urine culture results. documented in this encounter Plan of Treatment Not on file documented as of this encounter Procedures Procedure Name Priority Date/Time Associated Diagnosis Comments URINE CULTURE Routine 05/10/2024 7:57 PM CDT Flank pain documented in this encounter Results * Urine culture Urine, clean voided (05/10/2024 7:57 PM CDT) Report Final Report: Less than 100,000 colonies/mL (clinically insignificant growth based on current clinical standards) Comment:Testing performed by : [facility], [address] [place]., [address] Organism (CLINICALLY INSIGNIFICANT GROWTH [facility] Urine, clean voided 05/10/2024 7:57 PM CDT 05/10/2024 11:59 PM CDT Narrative BRENDON - 05/12/2024 12:47 PM CDT Testing performed by [facility] ([phone]) us Elsie Brown SACK MAKER LAB MICROBIOLOGY - GENERAL ORD ERABLES Final Result [facility] [address] [address] Department [place] [address] documented in this encounter Visit Diagnoses Diagnosis Flank pain Abdominal pain, unspecified site documented in this encounter Care Teams Jewel Stripper Relationship Specialty Start Date End Date Jasiel Freeman MD PCP - General 09/29/17 documented as of this encounter
--- OUTSIDE RECORDS SUMMARY | 2024-10-24 05:26 | XMS_ITS | Encounter Summary ---
Author Organization [facility] Healthcare Address [address] [place] [address] Care Team Providers Care Top Lift Compressor Name Role Phone Jasiel Freeman MD Primary Care Provider Encounter Details Date Type Department Care Team (Latest Contact Info) Description 10/10/2017 5:56 AM ASSET PROTECTION SPECIALIST - 10/11/2017 1:09 PM ASSET PROTECTION SPECIALIST Hospital Encounter [facility] [address] [place] [address] Owen Gold MD [address] [facility] [address] [place] [address] Discharge Disposition: Discharge to home or self care Social History Tobacco Use Types Packs/Day Years Used Date Smoking Tobacco: Former Sex and Gender Information Value Date Recorded Sex Assigned at Not on file Legal Sex Male 11:53 PM ASSET PROTECTION SPECIALIST Gender Identity Not on file Sexual Orientation Not on file documented as of this encounter Last Filed Vital Signs Vital Sign Reading Time Taken Comments Blood Pressure 112/77 10/11/2017 8:27 AM ASSET PROTECTION SPECIALIST Pulse 81 10/11/2017 8:27 AM ASSET PROTECTION SPECIALIST Temperature - - Respiratory Rate - - Oxygen Saturation 94% 10/11/2017 8:27 AM ASSET PROTECTION SPECIALIST Inhaled Oxygen Concentration - - Weight 85.3 kg (187 lb 15.8 oz) 017 12:38 PM ASSET PROTECTION SPECIALIST Height 180.3 cm (5' 11 ) 10/10/2017 12: 38 PM ASSET PROTECTION SPECIALIST Body Mass Index 26.22 10/10/2017 12:38 PM ASSET PROTECTION SPECIALIST documented in this encounter Medications at Time [...] encounter Miscellaneous Notes * Op Note - Provider, MD Lisandra - 10/10/2017 12:00 AM CST Patient: MUKUL ELKINS Reg No: [id number] U H #: [id number] Admit Dt.: 10/10/2017 : 1970 Pt Type: Room No: 9HR36-37 Attending: Owen Gold M.D. Surgeon: Owen oGld M.D. Dictating: Owen Gold M.D. Service Dt: 10/10/2017 OPERATIVE REPORT FACILITY ID: [facility] SURGEON Owen Gold MD ATTENDING ADDENDUM I was present for all critical portions of the case including assessment of bone cuts including acetabular reaming, insertion of all trials and implants, and assessment of length and stability. Dr. Dragan Ragsdale was present for the noncritical portions of the procedure. Please also note that Dr. Dragan Ragsdale was necessary for the procedure as executive chef assistant, because total hip replacement is a difficult procedure, requiring at least two experienced and skilled surgeons. One surgeon was necessary to help maintain exposure and assist with the use of specific total hip replacement instrumentation, while the primary surgeon performed the critical portions of the procedure and no qualified resident was available. Electronically Authenticated and Edited by: Owen Gold MD On 10/11/2017 04:07 PM ASSET PROTECTION SPECIALIST Owen Gold M.D. RLB:lizz #[id number] Editing MT: TD: 10/10/2017 10:30 AM cc: Ortho Billkandy Gold M.D. * Op Note - Provider, MD Lisandra - 10/10/2017 12:00 AM CST Patient: MUKUL ELKINS Reg No: [id number] H #: [id number] Admit Dt.: 10/10/2017 : 1970 Pt Type: IP Room No: 7359-01 Attending: Owen Gold M.D. Surgeon: Owen Gold M.D. Dictating: Dragan Ragsdale MD Service Dt: 10/10/2017 OPERATIVE REPORT FACILITY ID: [facility] SURGEON Owen Gold MD FIRST SPECIAL TECHNICAL OPERATIONS OFFICER Dragan Ragsdale MD PREOPERATIVE DIAGNOSIS Left hip arthritis secondary to impingement. POSTOPERATIVE DIAGNOSIS Left hip osteoarthritis. PROCEDURE Left total hip arthroplasty. IMPLANTS Railroad Repairer: Ham. Acetabular component: Size 58 Trident Tritanium cup. Acetabular screws: Two 6.5 mm acetabular screws, one 24 mm, one 28 mm. Acetabular liner: 36 mm neutral liner. Femoral component: Accolade II size 6 x 127 degrees. Femoral head: 36, -5. SURGICAL DETAILS Incision type: Standard posterior. Estimated blood loss: 150 mL. Urine output: See operative records. Crystalloid replacement: 2 L. Colloid replacement: None. Blood replacement: None. Anesthesia type: Spinal. Capsular injection: 30 mL of 0.5% Marcaine with epinephrine and 30 mg of Toradol. Specimens removed: Femoral head and acetabular reamings. INDICATIONS FOR PROCEDURE This patient presents for total hip arthroplasty for advanced degenerative joint disease of the hip. The patient has failed non-operative treatment. Risks, complications, and benefits of the procedure have been discussed and all questions have been answered preoperatively. Complications specific to each bearing surface option were discussed, including polyethylene wear, ceramic fracture, and adverse reaction to metal ions among others. PROCEDURE The patient was brought to the operating room and placed on the operating room table in the supine position. After anesthesia was established, the patient was positioned in the lateral decubitus position with the operative side up. All bony prominences were padded. A surgical time out was taken to confirm the operative side and planned procedure. The patient was given prophylactic antibiotics within one hour of skin incision. The hip was prepped and draped in the usual sterile fashion. A posterolateral approach to the hip was performed. The incision was carried through the subcutaneous tissue to the underlying fascia bruce and gluteus ozzie fascia, which were incised. The Charnley retractor was placed after carefully palpating the sciatic nerve which was protected throughout the case. The piriformis and external rotators were released. The posterior capsule was incised maintaining a rectangular flap which was tagged with two #5 Ethibond sutures. The hip was dislocated. The femoral neck cut was made according to the preoperative plan. The acetabulum was exposed and reamed to give a 1mm press fit. The acetabular component was impacted into position targeting 45 degrees of abduction and 20 degrees of anteversion. Screw fixation was utilized to enhance acetabular component fixation. The acetabular liner was placed and impacted into position. The liner locking mechanism engaged. Attention was then turned to the femoral side. Femoral preparation was started with a box osteotome and Charnley awl. The canal was sequentially broached to a stable fit. The final broach was impacted into position in approximately 10 degrees of anteversion. The trial head was placed and the hip reduced. Leg length measurements on the table demonstrated good reconstruction of the limb lengths according to our preoperative plan. The hip stability was assessed. The hip was stable in extension and external rotation as well as in flexion, adduction of 20 degrees and internal rotation to 60 degrees. The hip was dislocated, the trial broach was removed, the canal irrigated with pulsatile lavage and dried, and the final stem was inserted in routine fashion. After placement of the stem, the trunnion was cleansed and dried and the modular head firmly impacted in place and the hip reduced. Again, leg length assessment and stability assessment of the hip were performed to confirm optimal component selection. The wound was irrigated, a deep drain placed and hemostasis obtained. The posterior capsule was repaired utilizing the #5 Ethibond through drill holes in the greater trochanter. The piriformis was repaired with #5 Ethibond through the gluteus medius insertion into the greater trochanter. The fascia bruce and subcutaneous tissue was closed in layers with skin closure utilizing Dermabond followed by Adaptic gauze and a sterile dressing. The patient tolerated the procedure well and was taken to the recovery room in good condition. Complications: None. Sponge, instrument, and needle counts were correct x 2. See Dr. Gold's attending addendum for further details. Please note Dr. Gold was the supervising surgeon. He was present for all critical portions of the case. Dr. Ragsdale was present and necessary as there were no qualified senior level residents available to participate in the case. Electronically Authenticated and Edited by: Owen Gold MD On 10/18/2017 02:58 PM ASSET PROTECTION SPECIALIST Electronically Authenticated and Edited by: Dragan Ragsdale MD On 10/25/2017 10:47 AM ASSET PROTECTION SPECIALIST Dragan Ragsdale MD Owen Gold M.D. SE:[facility] #[id number] Editing MT: TD: 10/12/2017 11:27 AM cc: MD Owen Andrade M.D. documented in this encounter Plan of Treatment Not on file documented as of this encounter Procedures Procedure Name Priority Date/Time Associated Diagnosis Comments DIFFERENTIAL AUTO After X-Ray 10/11/2017 12: 25 AM ASSET PROTECTION SPECIALIST CBC WITH AUTO DIFFERENTIAL After X-Ray 10/11/2017 12:25 AM ASSET PROTECTION SPECIALIST BASIC METABOLIC PANEL After X-Ray 10/11/2017 12:25 AM ASSET PROTECTION SPECIALIST DISCHARGE LABORATORY CUMULATIVE REPORT 10/11/2017 12:00 AM ASSET PROTECTION SPECIALIST XR PELVIS 1 OR 2 VIEWS Routine 10/10/2017 5:03 PM ASSET PROTECTION SPECIALIST TYPE AND SCREEN Routine Gen Lab 10/10/2017 7:20 AM ASSET PROTECTION SPECIALIST CBC WITHOUT DIFFERENTIAL Routine Gen Lab 10/09/2017 7:30 AM ASSET PROTECTION SPECIALIST BASIC METABOLIC PANEL Routine Gen Lab 10/09/2017 7:30 AM ASSET PROTECTION SPECIALIST documented in this encounter Results * (ABNORMAL) Basic metabolic panel (10/11/2017 12:25 AM ASSET PROTECTION SPECIALIST) Pathologist [facility] Sodium 139 135 - 145 mmol/L [facility] Potassium, pl 4.4 3.3 - 4.9 mmol/L [facility] Chloride 108 97 - 110 mmol/L [facility] CO2 26 22 - 32 mmol/L [facility] BUN 15 8 - 25 mg/dL [facility] Glucose 123 70 - 199 mg/dL [facility] Comment: Interpretive Data Fasting glucose >/= [...] interpretive data was last revised 2017. Creatinine 1.21 0.80 - 1.30 mg/dL [facility] Calcium 7.9(L) 8.5 - 10.3 mg/dL [facility] Anion gap 5 2 - 15 mmol/L [facility] Blood specimen (specimen) 10/11/2017 12:25 AM ASSET PROTECTION SPECIALIST 10/11/2017 12:52 AM ASSET PROTECTION SPECIALIST Narrative [facility] - 10/11/2017 1:18 AM ASSET PROTECTION SPECIALIST us Dragan Ragsdale LAB BLOOD ORDERABLES Fi nal Result [facility] Department [place] [address] * (ABNORMAL) Differential, auto (10/11/2017 12:25 AM ASSET PROTECTION SPECIALIST) Pathologist [facility] Neutrophil pct 75.3 % [facility] Imm gran pct 0.5 % [facility] Lymphocyte pct 11.2 % [facility] Monocyte pct 11.4 % [facility] Eosinophil pct 1.3 % [facility] Basophil pct 0.3 % [facility] Neutrophil abs 6.59(H) 1.70 - 6.50 K/cumm [facility] Imm gran abs 0.04 0.00 - 0.10 K/cumm [facility] Lymphocyte abs 0.98 0.80 - 3.30 K/cumm [facility] Monocyte abs 1.00(H) 0.20 - 0.80 K/cumm [facility] Eosinophil abs 0.11 0.00 - 0.50 K/cumm [facility] Basophil abs 0.03 0.00 - 0.10 K/cumm [facility] Blood specimen (specimen) 10/11/2017 12:25 AM ASSET PROTECTION SPECIALIST 10/11/2017 12:53 AM ASSET PROTECTION SPECIALIST Narrative [facility] - 10/11/2017 1:04 AM ASSET PROTECTION SPECIALIST us Dragan Ragsdale LAB BLOOD ORDERABLES Fi nal Result [facility] [address] [facility] Department [place] [address] * (ABNORMAL) CBC with auto differential (10/11/2017 12:25 AM ASSET PROTECTION SPECIALIST) [facility] WBC 8.75 3.80 - 9.90 K/cumm [facility] RBC 4.87 4.30 - 5.80 M/cumm [facility] Hgb 13.6 13.0 - 17.5 g/dL [facility] Hct 42.5 38.9 - 50.3 % [facility] MCV 87.3 81.3 - 96.4 fL [facility] MCH 27.9 27.1 - 33.3 pg [facility] MCHC 32.0(L) 32.3 - 35.7 g/dL [facility] RDW CV 13.0 11.1 - 14.9 % [facility] RDW SD 41.7 35.7 - 48.1 fL [facility] Plt 242 150 - 400 K/cumm [facility] MPV 10.4 9.1 - 12.3 fL [facility] NRBC 0.0 0.0 - 0.2 % [facility] NRBC abs 0.00 0.00 - 0.01 K/cumm [facility] Blood specimen (specimen) 10/11/2017 12:25 AM ASSET PROTECTION SPECIALIST 10/11/2017 12:53 AM ASSET PROTECTION SPECIALIST Narrative [facility] - 10/11/2017 1:04 AM ASSET PROTECTION SPECIALIST Dragan Ragsdale LAB BLOOD ORDERABLES Fi nal Result [facility] [place] [address] * DISCHARGE LABORATORY CUMULATIVE REPORT (10/11/2017 12:00 AM ASSET PROTECTION SPECIALIST) Narrative 10/11/2017 12:00 AM ASSET PROTECTION SPECIALIST Ordered by an unspecified provider. Historical Provider LAB BLOOD ORDERABLES Padma l Result * XR Pelvis 1 or 2 Views (10/10/2017 5:03 PM ASSET PROTECTION SPECIALIST) Anatomical Region Laterality Modality Body, Pelvis N/A Radiographic Barbara ging 10/10/2017 5:03 PM ASSET PROTECTION SPECIALIST Narrative 10/10/2017 5:07 PM ASSET PROTECTION SPECIALIST JOCELYN FLOREZ M.D. FINAL REPORT ACC# ??Date Time ??Exam [id number] Oct 10, 2017 11:03:00 [id number] Pelvis 1 or 2 views EXAMINATION: ?? 1. ??Pelvis one or 2 views HISTORY: ??Left hip osteoarthritis, femoral head osteonecrosis FINDINGS: Single view submitted with comparison 06/19/2017. There is been interval left total hip arthroplasty in expected position. ??Soft tissue gas is present. ??There are no acute fractures. Mild right hip osteoarthritis is unchanged. ??Suture lines overlie the pelvis. IMPRESSION: ??1. ??Interval left total hip arthroplasty in expected position. Electronically signed by: Jocelyn Florez M.D. Requested By: DRAGAN RAGSDALE M.D. Dictated By: ?? JOCELYN FLOREZ M.D. ??on Oct 10 2017 11:05A This document has been electronically signed by: JOCELYN FLOREZ M.D. on Oct 10 2017 11:05A [id number] FLOREZ M.D. FINAL REPORT Attending: ??NI, ??OWEN Requesting: ??CHANDU, ??DRAGAN Requesting Fax: ?? Attending Fax: ?? Attending ID: ??[id number] Requesting ID: ??[id number] Report To 1 ID: ??[id number] ? Report To 1 Name: ??, ?? Report To 1 FAX: ?? NextGen Order #: ?? Procedure Note Miscellaneous, Not In File - 10/10/2017 JOCELYN FLOREZ M.D. FINAL REPORT ACC# Date Time Exam [id number] Oct 10, 2017 11:03:00 [id number] Pelvis 1 or 2 views EXAMINATION: 1. Pelvis one or 2 views HISTORY: Left hip osteoarthritis, femoral head osteonecrosis FINDINGS: Single view submitted with comparison 06/19/2017. There is been interval left total hip arthroplasty in expected position. Soft tissue gas is present. There are no acute fractures. Mild right hip osteoarthritis is unchanged. Suture lines overlie the pelvis. IMPRESSION: 1. Interval left total hip arthroplasty in expected position. Electronically signed by: Jocelyn Florez M.D. Requested By: DRAGAN RAGSDALE M.D. Dictated By: JOCELYN FLOREZ M.D. on Oct 10 2017 11:05A This document has been electronically signed by: JOCELYN FLOREZ M.D. on Oct 10 2017 11:05A [id number] FLOREZ M.D. FINAL REPORT Attending: OWEN GOLD Requesting: DRAGAN RAGSDALE Requesting Fax: Attending Fax: Attending ID: [id number] Requesting ID: [id number] Report To 1 ID: [id number] Report To 1 Name: , Report To 1 FAX: NextGen Order #: Dragan Ragsdale IMG XR PROCEDURES Final Result * Type and screen (10/10/2017 7:20 AM ASSET PROTECTION SPECIALIST) ABO Rh B Positive [facility] Karri, indirect Negative [facility] Blood specimen (specimen) 10/10/2017 7:20 AM ASSET PROTECTION SPECIALIST 10/10/2017 7:32 AM ASSET PROTECTION SPECIALIST Narrative [facility] - 10/10/2017 8:39 AM ASSET PROTECTION SPECIALIST Owen Gold MD LAB BLOOD BANK TEST ORDERAB LES Final Result [facility] Department [place] [address] * Basic metabolic panel (10/09/2017 7:30 AM ASSET PROTECTION SPECIALIST) Pathologist [facility] Sodium 138 135 - 145 mmol/L [facility] Potassium, pl 4.2 3.3 - 4.9 mmol/L [facility] Chloride 104 97 - 110 mmol/L [facility] CO2 28 22 - 32 mmol/L [facility] BUN 13 8 - 25 mg/dL [facility] Glucose 91 70 - 199 mg/dL [facility] Comment: Interpretive Data Fasting glucose >/= [...] interpretive data was last revised 2017. Creatinine 1.28 0.80 - 1.30 mg/dL [facility] Calcium 9.0 8.5 - 10.3 mg/dL [facility] Anion gap 6 2 - 15 mmol/L [facility] Blood specimen (specimen) 10/09/2017 7:30 AM ASSET PROTECTION SPECIALIST 10/09/2017 7:50 AM ASSET PROTECTION SPECIALIST Narrative [facility] - 10/09/2017 8:33 AM ASSET PROTECTION SPECIALIST us Owen Gold MD LAB BLOOD ORDERABLES Final Result [facility] [place] [address] * (ABNORMAL) CBC without differential (10/09/2017 7:30 AM ASSET PROTECTION SPECIALIST) WBC 6.22 3.80 - 9.90 K/cumm [facility] RBC 6.41(H) 4.30 - 5.80 M/cumm [facility] Hgb 17.8(H) 13.0 - 17.5 g/dL [facility] Hct 55.7(H) 38.9 - 50.3 % [facility] MCV 86.9 81.3 - 96.4 fL [facility] MCH 27.8 27.1 - 33.3 pg [facility] MCHC 32.0(L) 32.3 - 35.7 g/dL [facility] RDW CV 13.5 11.1 - 14.9 % [facility] RDW SD 41.8 35.7 - 48.1 fL [facility] NRBC 0.0 0.0 - 0.2 % [facility] NRBC abs 0.00 0.00 - 0.01 K/cumm [facility] Plt 290 150 - 400 K/cumm [facility] MPV 10.2 9.1 - 12.3 fL [facility] Blood specimen (specimen) 10/09/2017 7:30 AM ASSET PROTECTION SPECIALIST 10/09/2017 7:50 AM ASSET PROTECTION SPECIALIST Narrative [facility] - 10/09/2017 8:18 AM ASSET PROTECTION SPECIALIST us Owen Gold MD LAB BLOOD ORDERABLES Final Result [facility] Department [place] [address] documented in this encounter Visit Diagnoses Not on filedocumented in this encounter Care Teams Top Lift Compressor Relationship Specialty Start Date End Date Jasiel Freeman MD PCP - General 09/29/17 documented as of this encounter
--- OUTSIDE RECORDS SUMMARY | 2024-10-24 05:26 | XMS_ITS | Encounter Summary ---
Author Organization [facility] Address [address] [place] [address] Phone Care Team Providers Care Apartment Coordinator Name Role Phone Jasiel Freeman MD Primary Care Provider Encounter Details Date Type Department Care Team (Late st Contact Info) Description 11/20/2018 Orders Only [facility] [address] [facility] [address] [place] [id number] Tai Gooden RMA Social History Tobacco Use Types Packs/Day Years Used Date Smoking Tobacco: Former Sex and Gender Information Value Date Recorded Sex Assigned at Not on file Legal Sex Male 11:53 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 then 1 BID until completed 08/11/2017 11/20/2018 documented as of this encounter Historical Medications * This list may reflect changes made after this encounter. valACYclovir (VALTREX) 1 gram tablet TK 2 TS PO BID 4 10/02/2018 SPIRIVA RESPIMAT 2.5 mcg/actuation inhaler INL 2 PFS PO D 0 08/20/2018 testosterone cypionate (DEPO-TESTOTERON E) 200 mg/mL injection INJECT 1 ML INTO MUSCLE WEEKLY 5 10/09/2018 BD LUER-RITO SYRINGE 3 mL 22 x 1 1/2 syringe U UTD 11 10/09/2018 diphenoxylate-at ropine (LOMOTIL) 2.5-0.025 mg per tabletIndication s:diarrhea TK 1 T QID PRN FOR DIAREHHA OR LOOSE STOOL 1 08/20/2018 PROAIR HFA 90 mcg/actuation inhaler INL 2 PFS PO Q 4 TO 6 H PRF COUGH 0 08/31/2018 mupirocin (BACTROBAN) 2 % ointment Apply small amount inside each nostril using clean q-tip each nostril BID start 5 days before surgery 08/11/2017 4 metroNIDAZOLE (FLAGYL) 500 mg tablet TK 1 T PO TID 0 08/30/2018 4 meloxicam (MOBIC) 15 mg tablet daily. 11/27/2017 4 adalimumab (HUMIRA) 40 mg/0.8 mL pen injector kit 4 celecoxib (CeleBREX) 200 mg capsule take 2 pills with breakfast day before surgery. then 1 BID until completed 08/11/2017 9 azithromycin (ZITHROMAX) 250 mg tablet ZPK 0 10/29/2018 4 added in this encounter Care Teams Apartment Coordinator Relationship Specialty Start Date End Date Jasiel Freeman MD PCP - General 09/29/17 documented as of this encounter
--- OUTSIDE RECORDS SUMMARY | 2024-10-24 05:26 | XMS_ITS | Referral Summary ---
Author Organization [facility] Address [address] [place] [id number] Care Team Providers Care Insights Strategist Name Role Phone Jasiel Freeman MD Primary [...] hip 06/14/2017 Inflammatory bowel disease 06/26/2012 Malnutrition ([facility]) 02/27/2012 Protein calorie malnutrition ([facility]) 2 Acute bronchitis 02/23/2012 JORGE (acute kidney injury) 02/23/2012 Metabolic acidosis 02/23/2012 Pouchitis 02/23/2012 Sepsis 02/23/2012 SIRS (systemic inflammatory response syndrome) 0 02/23/2012 Ulcerative colitis 02/23/2012 Abdominal pain 02/22/2012 Hyponatremia 02/22/2012 Social History Tobacco Use Types Packs/Day Years Used Date Smoking Tobacco: Former Personal Safety Answer Date Recorded Getting School Help Needed Not on file 01/05 Sex and Gender Information Value Date Recorded Sex Assigned at Not on file Legal Sex Male 11:53 PM 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
--- OUTSIDE RECORDS SUMMARY | 2024-10-24 05:26 | XMS_ITS | Encounter Summary ---
Author Organization [facility] Healthcare Address [address] [place] [address] Care Team Providers Care Client Care Manager Name Role Phone Unavailable Primary Care Provider Unavailabl e Encounter Details Date Type Department Care Team (Late st Contact Info) Description 01/17/2013 9:06 AM CDT - 01/17/2013 11:59 PM CDT Hospital Encounter [facility] Albert Rahman MD [address] [address] Cervicalgia; Degeneration of cervical intervertebral disc; Brachial neuritis; Myalgia and myositis; Spinal stenosis in cervical region Social History Tobacco Use Types Packs/Day Years Used Date Smoking Tobacco: Never Assessed Sex and Gender Information Value Date Recorded Sex Assigned at Not on file 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 FILM(S) AVAILABLE IN RADIOLOGY DATE OF EXAM: ??Jan 17 2013 11:10AM Acc#: ??[id number] ??EDX [id number] - XR Fluoro Assist Pain Management ?? DIAGNOSIS: ??NECK PAIN CLINICAL HISTORY: ?? NECK PAIN ?? RESULT: The Radiology Department provided assistance with Fluoroscopy during a patient exam performed by a Pain Management Physician. ??No films were taken. ??No interpretation required. IMPRESSION: ?The Radiology Department provided assistance with Fluoroscopy during a patient exam performed by a Pain Management Physician. ??No films were taken. ??No interpretation required. ROOF MECHANIC: ??KS6 TRANSCRIBE DATE/TIME: ??Jan 17 2013 ??2:21P RADIOLOGIST: ?[employer] [facility] RADIOLOGY Luis Enrique ??READ ON: ??Jan 17 2013 ?? 2:21P ORDERING DR: ALBERT RAHMAN MD THIS DOCUMENT HAS BEEN ELECTRONICALLY SIGNED BY: ??[employer] SYSTEM RADIOLOGY Luis Enrique, ?ON: ??Jan 17 2013 ??2:21P Procedure Note Provider, MD Lisandra - 02/22/2017 IMAGES NOT AVAILABLE IN CLINICAL DESKTOP FILM(S) AVAILABLE IN RADIOLOGY DATE OF EXAM: Jan 17 2013 11:10AM Acc#: [id number] EDX [id number] - XR Fluoro Assist Pain Management DIAGNOSIS: NECK PAIN CLINICAL HISTORY: NECK PAIN RESULT: The Radiology Department provided assistance with Fluoroscopy during a patient exam performed by a Pain Management Physician. No films were taken. No interpretation required. IMPRESSION: The Radiology Department provided assistance with Fluoroscopy during a patient exam performed by a Pain Management Physician. No films were taken. No interpretation required. ROOF MECHANIC: KS6 TRANSCRIBE DATE/TIME: Jan 17 2013 2:21P RADIOLOGIST: [employer] [facility] Luis Enrique READ ON: Jan 17 2013 2:21P ORDERING DR: ALBERT RAHMAN MD THIS DOCUMENT HAS BEEN ELECTRONICALLY SIGNED BY: [employer] [facility] RADIOLOGY Luis Enrique, ON: Jan 17 20132:21P us Historical Provider MD BERMAN XR PROCEDURES Final R esult documented in this encounter Visit Diagnoses Diagnosis Cervicalgia Degeneration of cervical intervertebral disc Brachial neuritis Brachial neuritis or radiculitis nos Myalgia and myositis Unspecified myalgia and myositis Spinal stenosis in cervical region documented in this encounter
--- OUTSIDE RECORDS SUMMARY | 2024-10-24 05:26 | XMS_ITS | Encounter Summary ---
Author Organization [facility] Healthcare Address [address] [place] [address] Care Team Providers Care Blow Up Operator Name Role Phone Jasiel Freeman MD Primary Care Provider [phone] Encounter Details Date Type Department Care Team (Late st Contact Info) Description 05/12/2024 Telephone [facility] [address] [place] [address] Tanvi Bass MA Social History Tobacco Use Types Packs/Day Years Used Date Smoking Tobacco: Former Personal Safety Answer Date Recorded Getting School Help Needed Not on file 01/05 Sex and Gender Information Value Date Recorded Sex Assigned at Not on file Legal Sex Male 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 * Telephone Encounter - Tanvi Bass MA - 05/12/2024 5:07 PM CDT ----- Message from Elsie Brown NP sent at 05/12/2024 4:32 PM CDT ----- Please call pt and let him know that his urine culture was negative for infection. Is he feeling any better? Please tell him to make sure goes to the ER if he is not or if symptoms have worsened documented in this encounter Plan of Treatment Not on file documented as of this encounter Visit Diagnoses Not on filedocumented in this encounter Care Teams Blow Up Operator Relationship Specialty Start Date End Date Jasiel Freeman MD PCP - General 09/29/17 documented as of this encounter
--- OUTSIDE RECORDS SUMMARY | 2024-10-24 05:26 | XMS_ITS | Encounter Summary ---
Author Organization [facility] Healthcare Address [address] [place] [id number] Care Team Providers Care Research Geneticist Name Role Phone Unavailable Primary Care Provider Unavailabl e Encounter Details Date Type Department Care Team (Late st Contact Info) Description 02/19/2012 8:11 PM CDT - 02/20/2012 1:48 AM CDT Hospital En[facility] MD [address] [place] [address] Vomiting alone; Dehydration; Diarrhea Social History Tobacco Use Types Packs/Day Years Used Date Smoking Tobacco: Never Assessed Sex and Gender Information Value Date Recorded Sex Assigned at Not on file 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
--- OUTSIDE RECORDS SUMMARY | 2024-10-24 05:26 | XMS_ITS | Encounter Summary ---
Author Organization [facility] Address [address] [facility] [address] [place] [address] Care Team Providers Care Butcher Chicken And Fish Name Role Phone Jasiel Freeman MD Primary Care Provider Reason for Visit * Reason Comments Nasal Congestion nasal congestion/sin us headache pressure/+ exp vaccinated Fever Encounter Details Date Type Department Care Team (Late st Contact Info) Description 08/19/2021 12:30 PM CDT Office Visit [facility] [address] [address] Lavonne Schultz NP [address] [place] [id number] COVID-19 (Primary Dx) Social History Tobacco Use Types Packs/Day Years Used Date Smoking Tobacco: Former Sex and Gender Information Value Date Recorded Sex Assigned at Not on file Legal 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 Gender Identity Not on file Sexual Orientation Not on file documented as of this encounter Last Filed Vital Signs Vital Sign Reading Time Taken Comments Blood Pressure 128/88 08/19/2021 11:07 AM CDT Pulse 92 08/19/2021 11:07 AM CDT Temperature 36.8 ??C (98.3 ??F) 08/19/2021 11:07 AM C DT Respiratory Rate 16 08/19/2021 11:07 AM CDT Oxygen Saturation 98% 08/19/2021 11:07 AM CDT Inhaled Oxygen Concentration - - Weight 82.7 kg (182 lb 4.8 oz) 08/19/2021 11:07 AM CDT Height 180.3 cm (5' 11 ) 08/19/2021 11:07 AM CDT Body Mass Index 25.43 08/19/2021 11:07 AM CDT documented in this encounter Patient Instructions * Patient Instructions* Lavonne Schultz, WEB PRESS OPERATOR HELPER OFFSET - 08/19/2021 12:30 PM CDT The rapid COVID test performed today in clinic was positive. The following are recommendations for treating the symptoms related to COVID19. What is the difference between Influenza (Flu) and COVID-19? Influenza (Flu) and COVID-19 are both contagious respiratory illnesses, but they are caused by different viruses. COVID-19 is caused by infection with a new coronavirus (called SARS-CoV-2) and flu is caused by infection with influenza viruses. There are some jacobs differences between flu and COVID-19. COVID-19 seems to spread more easily than flu and causes more serious illnesses in some people. It can also take longer before people show symptoms and people can be contagious for longer. The best way to prevent infection is to avoid being exposed to the virus. Because some of the symptoms of flu and COVID-19 are similar, it may be hard to tell the difference between them based on symptoms alone, and testing may be needed to help confirm a diagnosis.While more is learned every day, there is still a lot that is unknown about COVID-19 and the virus that causes it. [facility] will be reaching out to all patients who have a positive test for further discussion and monitoring. Continue to self isolate until at least 10 days have passed since symptom onset, your symptoms have improved, and you have been fever free without the use of fever reducing medications for at least 24 hours. You may use acetaminophen and/or ibuprofen to control pain and fever. If you have chronic liver disease, have ever had a stomach ulcer or gastrointestinal bleeding talk with your healthcare provider before using these medicines. Aspirin should never be given to anyone under 18 years of age who is ill with a viral infection or fever. It may cause severe liver or brain damage. Your appetite may be poor, so a light diet is ok. Stay well hydrated by drinking 6 to 8 glasses of fluids per day (water, soft drinks, juices, tea, or soup). Extra fluids will help loosen secretions in the nose and lungs. Tthx-gqw-whkkbom cold medicines will not shorten the length of time you???re sick, but they may be helpful for relieving the following symptoms: headache, cough, sore throat, and nasal and sinus congestion. If you take prescription medicines, ask your healthcare provider or pharmacist which crpt-sfv-upiispe medicines are safe to use. (Note: DO NOT use decongestants if you have high blood pressure.) Steps to help prevent the spread of COVID-19 if you are sick If you are sick with COVID-19 or think you might have COVID-19, follow the steps below to care for yourself and to help protect other people in your home and community. Stay home except to get medical care ??? Most people with COVID-19 have mild illness and are able to recover at home without medical care. Do not leave your home, except to get medical care. Do not visit public areas. ??? Take care of yourself. Get rest and stay hydrated. Take cqka-mvc-ifrqtxe medicines to help you feel better. ??? Stay in touch with your doctor. Call before you get medical care. Be sure to get care if you have trouble breathing, or have any other emergency warning signs, or if you think it is an emergency. ??? Avoid using public transportation, ride-sharing, or taxis. Monitor your symptoms ??? Symptoms of COVID-19 include fever, cough, shortness of breath or difficulty breathing, fatigue, muscle or body aches, headache, new loss of taste or smell, sore throat, congestion, runny nose, nausea, vomiting, or diarrhea. When to Seek Medical Attention If you develop emergency warning signs for COVID-19 get medical attention immediately. Emergency warning signs include*: ??? Trouble breathing ??? Persistent pain or pressure in the chest ??? New confusion or inability to arouse ??? Bluish lips or face *This list is not all inclusive. Please consult your medical provider for any other symptoms that are severe or concerning. Call 911 if you have a medical emergency: If you have a medical emergency and need to call 911, notify the tin tie machine operator automatic that you have or think you might have, COVID-19. If possible, put on a facemask before medical help arrives. Separate yourself from other people in your home, this is known as home isolation ??? As much as possible, you should stay away from other people and pets in your home. You should stay in a specific ???sick room?? if possible. Use a separate bathroom, if available. If you need juan around other people or animals in or outside of the home, wear a mask For more information on sharing close living quarters with someone who is sick visit https://www.cdc .gov/coronavirus/2019-ncov/nwpxb-lors-acajfq/cskqzy-jo-iatlk-quarters.html For more information on COVID-19 and pets visit https://www.cdc.gov/coronavirus/2019-ncov/faq.html Call ahead before visiting your doctor ??? Many medical visits for routine care are being postponed or done by phone or telemedicine. ??? If you have a medical appointment that cannot be postponed, call your doctor???s office, and tell them you have or may have COVID-19. This will help the office protect themselves and other patients. documented in this encounter Progress Notes * Lavonne Schultz NP - 08/19/2021 12:30 PM CDT Images from the original note were not included. Patient ID: Edgardo Elkins is a 50 y.o. male followed by Jasiel Freeman MD Chief Complaint Patient presents with ??? Nasal Congestion nasal congestion/sinus headache pressure/+ exp vaccinated ??? Fever Patient presents with reports of nasal congestion and fevers for 3 days. Denies chest pain, body aches, nausea, diarrhea, and difficulty breathing. Patient has taken ibuprofen tsde-ahv-cosepbu for his symptoms. Patient is fully vaccinated against COVID. Patient reports possible COVID exposure at the child's volleyball game. Review of Systems Constitutional: Positive for fever (resolved). Negative for chills. HENT: Positive for congestion, rhinorrhea and sinus pressure. Negative for ear pain, postnasal dripand sore throat. Respiratory: Negative for cough, chest tightness, shortness of breath and wheezing. Cardiovascular: Negative for chest pain. Musculoskeletal: Negative for myalgias. Neurological: Negative for headaches. Vitals: 08/19/21 1107 BP: 128/88 BP Location: Left arm Patient Position: Sitting Pulse: 92 Resp: 16 Temp: 36.8 ??C (98.3 ??F) TempSrc: Oral SpO2: 98% Weight: 82.7 kg (182 lb 4.8 oz) Height: 180.3 cm (5' 11 ) Recent Results (from the past 24 hour(s)) COVID-19 POC Collection Time: 08/19/21 11:17 AM Result Value Ref Range COVID-19 Ag POC (BD Veritor) Positive (A) Presumptive Negative, Invalid Physical Exam Vitals reviewed. Constitutional: Appearance: He is well-developed. HENT: Right Ear: Tympanic membrane, ear canal and external ear normal. Tympanic membrane is not injected,erythematous or bulging. Left Ear: Tympanic membrane, ear canal and external ear normal. Tympanic membrane is not injected, erythematous or bulging. Nose: Congestion present. Right Sinus: No maxillary sinus tenderness or frontal sinus tenderness. Left Sinus: No maxillary sinus tenderness or frontal sinus tenderness. Mouth/Throat: Lips: Simpson. Mouth: Mucous membranes are moist. Pharynx: No posterior oropharyngeal erythema. Tonsils: No tonsillar exudate. Eyes: Conjunctiva/sclera: Conjunctivae normal. Cardiovascular: Rate and Rhythm: Normal rate and regular rhythm. Pulmonary: Effort: Pulmonary effort is normal. Breath sounds: Normal breath sounds. No decreased breath sounds, wheezing or rhonchi. Musculoskeletal: General: Normal range of motion. Skin: General: Skin is warm and dry. Neurological: Mental Status: He is alert and oriented to person, place, and time. Diagnoses and all orders for this visit: COVID-19 (Primary) - COVID-19 POC Orders Placed This Encounter Procedures ??? COVID-19 POC Order Specific Question: Is the Patient experiencing symptoms consistent with COVID? Answer: Yes Order Specific Question: Date of Symptom Onset Answer: 08/16/2021 Order Specific Question: Is the patient hospitalized? Answer: No Order Specific Question: Is the patient admitted to an ICU? Answer: No Order Specific Question: Is this the first COVID-19 test for this patient? Answer: No Order Specific Question: Does the patient currently work in a healthcare facility with direct patient contact? Answer: No Order Specific Question: Is the patient a resident of a congregate care or living setting? Answer: No Order Specific Question: Is the patient ? Answer: No Assessment/Plan Lungs CTA, O2 Saturation @98%/RA, low suspicion for pneumonia at this time. Will recommend supportive care for symptoms with f/u precautions including signs/symptoms warranting ER evaluation. ??? Discussed home self-care, follow up needs, and signs and symptoms that warrant immediate medical attention/ER evaluation including worsening fever, increased shortness of breath, severe N/V/D, orany other worrisome symptoms ??? Reviewed isolation/quarantine protocols ??? Discussed symptomatic relief of symptoms ??? Advised to rest and increase oral fluid intake ??? Advised to stay out of work and work release given explaining when patient can return to work Patient Education The rapid COVID test performed today in clinic was positive. The following are recommendations for treating the symptoms related to COVID19. What is the difference between Influenza (Flu) and COVID-19? Influenza (Flu) and COVID-19 are both contagious respiratory illnesses, but they are caused by different viruses. COVID-19 is caused by infection with a new coronavirus (called SARS-CoV-2) and flu is caused by infection with influenza viruses. There are some jacobs differences between flu and COVID-19. COVID-19 seems to spread more easily than flu and causes more serious illnesses in some people. It can also take longer before people show symptoms and people can be contagious for longer. The best way to prevent infection is to avoid being exposed to the virus. Because some of the symptoms of flu and COVID-19 are similar, it may be hard to tell the difference between them based on symptoms alone, and testing may be needed to help confirm a diagnosis.While more is learned every day, there is still a lot that is unknown about COVID-19 and the virus that causes it. [facility] will be reaching out to all patients who have a positive test for further discussion and monitoring. Continue to self isolate until at least 10 days have passed since symptom onset, your symptoms have improved, and you have been fever free without the use of fever reducing medications for at least 24 hours. You may use acetaminophen and/or ibuprofen to control pain and fever. If you have chronic liver disease, have ever had a stomach ulcer or gastrointestinal bleeding talk with your healthcare provider before using these medicines. Aspirin should never be given to anyone under 18 years of age who is ill with a viral infection or fever. It may cause severe liver or brain damage. Your appetite may be poor, so a light diet is ok. Stay well hydrated by drinking 6 to 8 glasses of fluids per day (water, soft drinks, juices, tea, or soup). Extra fluids will help loosen secretions in the nose and lungs. Lnrw-uds-igvnjmp cold medicines will not shorten the length of time you???re sick, but they may be helpful for relieving the following symptoms: headache, cough, sore throat, and nasal and sinus congestion. If you take prescription medicines, ask your healthcare provider or pharmacist which telq-iyv-cejsfny medicines are safe to use. (Note: DO NOT use decongestants if you have high blood pressure.) Steps to help prevent the spread of COVID-19 if you are sick If you are sick with COVID-19 or think you might have COVID-19, follow the steps below to care for yourself and to help protect other people in your home and community. Stay home except to get medical care ??? Most people with COVID-19 have mild illness and are able to recover at home without medical care. Do not leave your home, except to get medical care. Do not visit public areas. ??? Take care of yourself. Get rest and stay hydrated. Take ridy-ucb-rfzbuvg medicines to help you feel better. ??? Stay in touch with your doctor. Call before you get medical care. Be sure to get care if you have trouble breathing, or have any other emergency warning signs, or if you think it is an emergency. ??? Avoid using public transportation, ride-sharing, or taxis. Monitor your symptoms ??? Symptoms of COVID-19 include fever, cough, shortness of breath or difficulty breathing, fatigue, muscle or body aches, headache, new loss of taste or smell, sore throat, congestion, runny nose, nausea, vomiting, or diarrhea. When to Seek Medical Attention If you develop emergency warning signs for COVID-19 get medical attention immediately. Emergency warning signs include*: ??? Trouble breathing ??? Persistent pain or pressure in the chest ??? New confusion or inability to arouse ??? Bluish lips or face *This list is not all inclusive. Please consult your medical provider for any other symptoms that are severe or concerning. Call 911 if you have a medical emergency: If you have a medical emergency and need to call 911, notify the tin tie machine operator automatic that you have or think you might have, COVID-19. If possible, put on a facemask before medical help arrives. Separate yourself from other people in your home, this is known as home isolation ??? As much as possible, you should stay away from other people and pets in your home. You should stay in a specific ???sick room?? if possible. Use a separate bathroom, if available. If you need juan around other people or animals in or outside of the home, wear a mask For more information on sharing close living quarters with someone who is sick visit https://www.cdc .gov/coronavirus/2019-ncov/flqfk-dzhu-agpbaz/yxckhz-ly-ecoil-quarters.html For more information on COVID-19 and pets visit https://www.cdc.gov/coronavirus/2019-ncov/faq.html Call ahead before visiting your doctor ??? Many medical visits for routine care are being postponed or done by phone or telemedicine. ??? If you have a medical appointment that cannot be postponed, call your doctor???s office, and tell them you have or may have COVID-19. This will help the office protect themselves and other patients. Lavonne Schultz NP documented in this encounter Plan of Treatment Not on file documented as of this encounter Procedures Procedure Name Priority Date/Time Associated Diagnosis Comments COVID-19 POC Routine 08/19/2021 11:17 AM CDT COVID-19 documented in this encounter Results * (ABNORMAL) COVID-19 POC (08/19/2021 11:17 AM CDT) COVID-19 Ag POC (BD Veritor) Positive( A) Presumptive Negative, Invalid [facility] 08/19/2021 11:1 7 AM CDT Lavonne Schultz WEB PRESS OPERATOR HELPER OFFSET POINT OF CARE TEST ORDERABLES Final Result [facility] [address] [place] [address], [facility] documented in this encounter Visit Diagnoses Diagnosis COVID-19- Primary documented in this encounter Historical Medications * This list may reflect changes made after this encounter. vedolizumab (ENTYVIO IV) Infuse into a venous catheter added in this encounter Additional Health Concerns Infection Onset Date Last Indicated Resolved Time COVID19 08/19/2021 08/19/2021 09/02/2021 3:05 AM SCHOOL ATTENDANCE SECRETARY documented as of this encounter Care Teams Butcher Chicken And Fish Relationship Specialty Start Date End Date Jasiel Freeman MD PCP - General 09/29/17 documented as of this encounter
--- OUTSIDE RECORDS SUMMARY | 2024-10-24 05:26 | XMS_ITS | Encounter Summary ---
Author Organization [facility] Healthcare Address [address] [place] [address] Care Team Providers Care Card Fixer Name Role Phone Unavailable Primary Care Provider Unavailabl e Encounter Details Date Type Department Care Team (Latest Contact Info) Description 09/02/2013 11:11 AM MENTAL HEALTH DIRECTOR - 09/02/2013 11:59 PM MENTAL HEALTH DIRECTOR Hospital Encounter [facility] [place], [place] [address] [facility] [place], [place] [id number] Other testicular hypofunction Social History Tobacco Use Types Packs/Day Years Used Date Smoking Tobacco: Never Assessed Sex and Gender Information Value Date Recorded Sex Assigned at Not on file Legal Sex Male 11:53 PM MENTAL HEALTH DIRECTOR Gender Identity Not on file Sexual Orientation Not on file documented as of this encounter Plan of Treatment Not on file documented as of this encounter Procedures Procedure Name Priority Date/Time Associated Diagnosis Comments SERUM TESTOSTERONE Routine 09/02/2013 11 :17 AM MENTAL HEALTH DIRECTOR DISCHARGE LABORATORY CUMULATIVE REPORT Routine 09/02/2013 12:00 AM MENTAL HEALTH DIRECTOR documented in this encounter Results * (ABNORMAL) Serum testosterone (09/02/2013 11:17 AM MENTAL HEALTH DIRECTOR) Testosterone 959(H) 240 - 825 ng/dl HISTORICAL RESULTS Serum 09/02/2013 11:1 7 AM MENTAL HEALTH DIRECTOR us Timmy Ho MD LAB BLOOD ORDERABLES Fin al Result HISTORICAL RESULTS * Discharge Laboratory Cumulative Report (09/02/2013 12:00 AM MENTAL HEALTH DIRECTOR) 09/02/2013 Narrative HISTORICAL RESULTS - 09/04/2013 12:27 AM MENTAL HEALTH DIRECTOR Patient No: [id number] ? [facility] Patient Name: MUKUL ELKINS ?[facility] Age: 42 YRS ?: 1970 ?Sex:M ?[address] )[phone] ?? Adm Dt: 09/02/2013 ?[place], [place] ??[address] Created: 09/04/2013 ??0027 ?? Pt. Type: R ? Discharge Dt: 09/02/2013 ? Pathologists: Kathrin Billy MD Admit Attend Dr: TIMMY HO MD ? [facility] ?Collection Date: ?09/02/13 ?Collection Time: ?1117 ? Ref Range: ?? Units: [240-825] ?? ng/dl ?TESTOSTERONE ? 959 H Footnotes and Symbols: H = High ?? END OF CHART ? Page: ?? 1 us Historical Provider MD LAB BLOOD ORDERABLES Padma l Result HISTORICAL RESULTS documented in this encounter Visit Diagnoses Diagnosis Other testicular hypofunction documented in this encounter
--- OUTSIDE RECORDS SUMMARY | 2024-10-24 05:26 | XMS_ITS | Encounter Summary ---
Author Organization [facility] Address [address] [place] [address] Phone Care Team Providers Care Grab Setter Name Role Phone Jasiel Freeman MD Primary Care Provider Encounter Details Date Type Department Care Team (Late st Contact Info) Description 01/15/2019 Orders Only [facility] Orthopaedic Surgery [address] [facility] Advanced Medicine 6th [place] [address] [place] [address] Thanh Gold MD [address] [facility] [address] [place] [address] Social History Tobacco Use Types Packs/Day Years Used Date Smoking Tobacco: Former Sex and Gender Information Value Date Recorded Sex Assigned at Not on file Legal 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 12 tablet/capsule 01/15/2019 4 documented in this encounter Plan of Treatment Not on file documented as of this encounter Visit Diagnoses Not on filedocumented in this encounter Care Teams Grab Setter Relationship Specialty Start Date End Date Jasiel Freeman MD PCP - General 09/29/17 documented as of this encounter
--- OUTSIDE RECORDS SUMMARY | 2024-10-24 05:27 | XMS_ITS | Encounter Summary ---
Author Organization [facility] Care Team Providers Care Digital Editor Name Role Phone Unavailable Primary Care Provider Unavailabl e Encounter Details Date Type Department Care Team (Late st Contact Info) Description 04/03/2008 - 10/22/2008 11:59 PM ENERGY PROJECT ENGINEER Hospital Encounter [facility] CLINCONV Social History Tobacco Use Types Packs/Day Years Used Date Smoking Tobacco: Never Assessed Sex and Gender Information Value Date Recorded Sex Assigned at Not on file Legal Sex Male 11:53 PM ENERGY PROJECT ENGINEER Gender Identity Not on file Sexual Orientation Not on file documented as of this encounter Plan of Treatment Not on file documented as of this encounter Visit Diagnoses Not on filedocumented in this encounter
--- OUTSIDE RECORDS SUMMARY | 2024-10-24 05:28 | XMS_ITS | Encounter Summary ---
Author Organization [facility] Address [address] [place] [address] Care Team Providers Care Employer Relations Representative Name Role Phone Jasiel Freeman MD Primary Care Provider Reason for Visit * Reason Onset Date Comments Home Visit 11/15/2022 [place] Encounter Details Date Type Department Care Team (Late st Contact Info) Description 11/15/2022 Patient Outreach [facility] - [address] [place] [address] Ebony Cruz, RN Home Visit ([place]) Social History Tobacco Use Types Packs/Day Years Used Date Smoking Tobacco: Former Cigarettes 0.5 10 0 06/09/2001 - 06/09/2011 Smokeless Tobacco: Never Comments:off & on Alcohol Use Standard Drinks/Week Comments Yes 0 (1 standard drink = 0.6 oz pur e alcohol) rarely Sex and Gender Information Value Date Recorded Sex Assigned at Male 01/31/2024 6:50 AM CDT Gender Identity Male 01/31/2024 6:50 AM CDT Sexual Orientation Straight 01/31/2024 6: 50 AM CDT documented as of this encounter Last Filed Vital Signs Vital Sign Reading Time Taken Comments Blood Pressure 138/86 11/15/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 [facility] Home Infusion NURSING [facility] Georgette Elkins [address] [facility] [address] Ebony Cruz RN 11/15/2022 Visit start 1630 Visit end 1800 Contact numbers provided including after hours numbers No home safety risks No fire safety risks Medication Management Education: Instructed patient/ caregiver in medication management in regards to all active medications including Look Alike Sound Alike Medications, and High Risk Medications: dose/route/frequency, reason for taking, effectiveness, drug interactions, food interactions, side effects/adverse reactions, and contraindications. Instructed in set up of pillbox, other appropriate storage of medications, need for other assistive devices or other support to manage medication regime. Patient / Caregiver is knowledgeable and compliant with medication therapy, patient/ caregiver response to instruction - understood. yes Confirmed with patient that no insurance changes since last dose given. Yes Patient states that no anticipated insurance or job changes before next infusion. Yes Pt informed on importance of notifying [facility] immediately if any unexpected insurance changes occur. yes No problem observed with learning needs - No cultural, shinto, or language barriers to learning Patient and CG are motivated to learn Patient and CG are willing and accepting of necessary care Physical Exam Constitutional: oriented to person, place, and time. appears well-developed and well-nourished. HENT: Head: Normocephalic and atraumatic. Eyes: Pupils are equal, round, and reactive to light. Neck: Normal range of motion. Cardiovascular: Normal rate and regular rhythm. Pulmonary/Chest: Effort normal and breath sounds normal. Abdominal: Soft. Normal appearance and bowel sounds are normal. There is no tenderness. GI/: clear yellow urine, BM without difficulty, no concerns Musculoskeletal: Normal range of motion. Neurological: alert and oriented to person, place, and time. Skin: Skin is warm and dry. Psychiatric: normal mood and affect. Pain: 1. intermediate assessment and implementation of infusion therapy. Teaching of patient/caregiverrole in infusion therapy. Goal : Infusion therapy will be delivered per physicians orders. Infusion access will remain patent. Patient and caregiver will demonstrate an understanding of teaching and learning goals related to infusion therapy. Intervention : 24 gauge PIV placed to L AC without difficulty. Flushed PIV with 10 ml NS easily with positive blood return. Withdrew 1 vial Skyrizi 600 mg and added to 100 ml ns. Filter flushed with ns. Tubing primed with drug and connected to filtered add on. Base line vital signs checked. Infusion completed in 1 hour. 20 ml ns used to NS 20 ml flush remainder of Skyrizi thru line. PIV DC'd, bandaid applied. 2. Management of home medication. Goal: Patient/caregiver will verbalized understanding of medication regime. Intervention: Patient manages all medications except Skyrizi. Patient takes medication as ordered, knows purpose, basic side effects, and adverse reactions. Patient knows how to reorder medications. [facility] will dispense Skyrizi based on current prescribed therapy. Medication reconciliation performed. No duplicate medications. Patient able to obtain all medications. Assessed the effectiveness of the current treatment regimen. 3. Skilled Observation and Assessment. Goal: Skilled observation and assessment of physical condition, monitoring response to treatment, and communication with physician regarding any abnormalities or concerns throughout treatment. Intervention: General assessment performed as documented above. 4. Physical discomfort. Goal: Patients pain/physical discomfort will be reduced to the level of the patients stated goal. Patient/caregiver will verbalize understanding of the pain management plan. Intervention: Pain assessed as documented above, no intervention required Discharge Plan - indefinite due to disease process. 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 documented in this encounter Plan of Treatment Upcoming Encounters Date Type Department Care Team (Late st Contact Info) Description 02/13/2025 10:30 AM CDT Office Visit [facility] [place] [address] [place] [address] Kitty Dover, MIRTA [address] [place] [address] documented as of this encounter Visit Diagnoses Not on filedocumented in this encounter Care Teams Employer Relations Representative Relationship Specialty Start Date End Date aJsiel Freeman MD [address] [place] [phone] PCP - General Family Practice 08/15/17 documented as of this encounter
--- OUTSIDE RECORDS SUMMARY | 2024-10-24 05:28 | XMS_ITS | Encounter Summary ---
Author Organization [facility] Address [address] [place] [address] Care Team Providers Care Dog Licenser Name Role Phone Jasiel Freeman MD Primary Care Provider Reason for Visit * Auth/Cert Specialty Diagnoses / Procedures Referred By Lambert pizarro Referred To Contact Perioperative Diagnoses Ulcerative pancolitis with complication Procedures MD COLONOSCOPY FLX DX W/COLLJ SPEC WHEN PFRMD checkout COLONOSCOPY [address] [place] [address] Referral ID Status Reason Start Date Expiration Date Visits Re quested Visits Authorized [id number] 1 1 Encounter Details Date Type Department Care Team (Late st Contact Info) Description 08/15/2022 12:20 PM CDT - 08/15/2022 1:00 PM CDT Surgery [address] [place] [address] Annette Whitney MD [address] [facility] [place] [id number] POUCHOSCOPY Surgery Details Date/Time Status Location OR Service Patient Class Case Class Case Type Trauma Case? 08/15/2022 12:20 PM Posted [facility] GI 02 Gastroenterology Outpatient Elective No Panel 1 Procedure LRB Anes Op Region Wound Class Comments POUCHOSCOPY N/A Monitored Anesthetic Care Anus pouchoscopy Surgeon Surgeon Role Service Panel Annette Whitney MD Primary Gastroenterol ogy 1 Case Notes pouchoscopy documented in this encounter Social History Tobacco [...] Orientation Straight 01/31/2024 6: 50 AM CDT COVID-19 Exposure Response Date Recorded In the last 10 days, have yo u been in contact with someone who was confirmed or suspected to have Coronavirus/COVID-19? No / Unsure 08/15/2022 11:07 AM CDT documented as of this encounter Last Filed Vital Signs Vital Sign Reading Time Taken Comments Blood Pressure 133/91 08/15/2022 12:05 PM CDT Pulse 76 08/15/2022 12:05 PM CDT Temperature 36.4 ??C (97.6 ??F) 08/15/2022 11:50 AM C DT Respiratory Rate 15 08/15/2022 12:05 PM CDT Oxygen Saturation 96% 08/15/2022 12:05 PM CDT Inhaled Oxygen Concentration - - Weight 81.2 kg (179 lb) 08/15/2022 11:18 AM CDT Height 175.3 cm (5' 9 ) 08/15/2022 11:18 AM CDT Body Mass Index 26.43 08/15/2022 11:18 AM CDT documented in this encounter Discharge Instructions * Discharge Instructions* Annette Whitney MD - 08/15/2022 11:10 AM CDT Instructions after Pouchoscopy After a colonoscopy it is normal to experience some minor ???gas pains?? because of the air that was introduced to your colon during the procedure. Tylenol will help to relieve any discomfort. You may not have a bowel movement for 1-3 days because of the colonoscopy prep. This is normal. DO NOT drink alcohol until tomorrow. DO NOT drive, operate machinery, make critical decisions until tomorrow. Limit activities that require coordination or balance for 24 hours. Resume your previous diet unless otherwise instructed. Resume your previous medications unless otherwise instructed. Notify your physician if you develop any of the following: Severe pain Fever of 101 degrees F Large amount of bleeding, passing large blood clots, or black tarry stools Redness or soreness at the IV site If tissue samples were taken during the procedure, you will notified with a letter that will appearin my mercy or by mail with the results. If you have not been notified within two weeks, please call the office. The pathology results are released to you and me at the same time. Please allow 7 daysfor us to review and interpret results. Office Exchange: documented in this encounter Medications at Time of Discharge Medication Sig Dispensed Refills Start Date End Date omeprazole (PriLOSEC) 40 mg Capsule, Delayed Release(E.C.) Take 40 mg by mouth daily. 04/21/2022 terbinafine HCL (LamISIL) 250 mg tablet Take 250 mg by mouth daily. 05/29/2022 testosterone cypionate (DEPO-TESTOSTERONE) 200 mg/mL Oil INJECT 1ML INTRAMUSCULARLY WEEKLY 06/27/2022 zolpidem (AMBIEN) 5 mg tablet TAKE 1 TABLET BY MOUTH AT BEDTIME NEEDED FOR 30 DAYS 05/29/2022 ondansetron (ZOFRAN) 4 mg Tablet Take 1 Tablet (4 mg) by mouth every 8 hours as needed for Nausea/Emesis. 15 Tablet None 05/20/2020 Syringe with Needle, Disp, (BD Luer-Jesusita Syringe) 3 mL 23 gauge x 1 1/2 Syringe For use with B12 injections 12 Each 2 11/18/2019 SOLU-MEDROL, PF, 40 mg/mL Recon Soln ADMINISTER 40 MG VIA SLOW INTRAVENOUS PUSH IN CASE OF SEVERE ALLERGICREACTION. 1 Each 08/07/2019 BD PRECISIONGLIDE 25 gauge x 1 Needle USE DIRECTED TO ADMINISTER SOLU CORTEF 5 Each 1 08/07/2019 diphenhydrAMINE (BENADRYL) 50 mg/mL Solution ADMINISTER 25 MG VIA SLOW INTRAVENOUS PUSH IN CASE OF SEVERE ALLERGICREACTION. DISCARD EXCESS 1 mL 08/07/2019 TESTOSTERONE, BULK, MISC 1 mL by Misc.(Non-Drug; Combo Route) route. cefdinir (OMNICEF) 300 mg capsule Take 1 Capsule (300 mg) by mouth every 12 hours for 10 days. 20 Capsule 08/15/2022 08/25/2022 budesonide (ENTOCORT EC) 3 mg Enteric Coated 24 hour capsule Take 3 Capsules (9 mg) by mouth daily. 90 Capsule 2 08/12/2022 11/07/2022 ergocalciferol (VITAMIN D2) 50,000 unit capsule TAKE 1 CAPSULE BY MOUTH EVERY 2 WEEKS 6 Capsule 3 07/21/2022 02/13/2024 dicyclomine (BENTYL) 10 mg capsule TAKE 1 CAPSULE BY MOUTH FOUR TIMES A DAY 360 Capsule 07/18/2022 12/08/2022 water sterile Solution 4.8 mL by See Admin Instructions route see administration instructions. 10 mL 6 11/12/2021 11/14/2022 hyoscyamine 0.375 mg Extended Release 12 hour tablet Take 1 Tablet (0.375 mg) by mouth every 12 hours as needed for Discomfort. 60 Tablet 1 10/26/2020 12/08/2022 vedolizumab (ENTYVIO) 300 mg Recon Soln Inject 300 mg by intraveous injection see administration instructions. Home [employer]INEER to administer over 30 minutes every 8 weeks. 300 mg 3 07/31/2019 11/14/2022 documented as of this encounter Progress Notes * Lisy Key RN - 08/12/2022 3:09 PM CDT Routine Pre-Anesthesia Protocol for GI Lab Procedures [facility] Approved by: [facility] - Medical Executive Committee Approval Date: 01/06/2022 ORDERS ARE ENTERED ???PER PROTOCOL?? Enter the protocol in the patient???s electronic health record using VHXrase: .anestprotocolgilab Nursing Orders: Monitoring Obtain and record vital signs on admission to [facility] Continuous vital signs (Non-invasive blood pressure, pulse oximetry and cardiac monitoring) for: All inpatients All patients currently taking beta-blockers Patients diagnosed with/or at risk for sleep apnea (e.g., STOP-BANG greater than or equal to 3) Glycemic Control POC glucose for diabetics Notify provider for any POC glucose or serum glucose less than 70 mg/dL. If POC Glucose results arecritical, do not delay treatment. If appropriate, may confirm POC with: Nursing Only [id number] (this lab can be obtained at no cost to the patient when confirming a critical high or Critical low POC glucose. See hypoglycemia protocol for additional orders if needed: ST ANES Adult Perianesthesia HYPOglycemia Protocol Notify any provider for any POC glucose or serum glucose greater than 180 mg/dL. When receiving report on an inpatient, confirm if patient is receiving dextrose containing fluids to prevent hypoglycemia. Communicate with the anesthesiologist and request glucose containing fluids be continued or added to intraoperative/intraprocedure fluids. POC glucose within 30 minutes of discharge or transfer to another unit (the time-based intra-procedure POC check may be deferred during short procedures at the discretion of the provider. Laboratory Orders: POC Urine Test (POC7) (if unable to obtain urine, may obtain serum [id number]) All patients with potential for childbearing (menarche to menopause) Medication Orders: Intravenous Line Place #20 gauge IV in non-dominant, non-operative or not otherwise excluded upper extremity unless otherwise ordered by anesthesiologist. Contact responsible anesthesiologist if recommending use of a #22 gauge IV For patients with difficult IV access notify anesthesiologist. For patients with difficult IV access and an implanted infusion port, access the port in accordancewith nursing policies. Local Anesthetic to use to initiate IV line: Lidocaine 2% 0.3mL intradermal ONE TIME to numb area of IV catheter insertion PRN. IV Fluid- Adult patients (age 18 years or greater): Lactated ringer's solution to infuse at 125mL/hr, may discontinue upon discharge from procedure area If patient is found to have a serum creatinine >2 or history of renal failure, RN may change to NS at 10ml/hr documented in this encounter H&P Notes * Annette Whitney MD - 08/15/2022 11:09 AM CDT This is a 51 y.o. male who presents for pouchoscopy Pre-procedure indication: Crohn's of J-pouch with increased urgency. On entyvio Q4 weeks. CRP elevated. ASA per Anesthesia Examination: Wt Readings from Last 3 Encounters: 08/12/22 81.6 kg (180 lb) 07/21/22 86.6 kg (191 lb) 08/02/21 80.7 kg (178 lb) Temp Readings from Last 3 Encounters: 08/09/22 98 ??F (36.7 ??C) (Temporal) 07/21/22 99.7 ??F (37.6 ??C) 07/11/22 99 ??F (37.2 ??C) (Temporal) BP Readings from Last 3 Encounters: 08/09/22 125/87 07/21/22 139/87 07/11/22 (!) 141/80 Pulse Readings from Last 3 Encounters: 08/09/22 82 07/21/22 100 07/11/22 84 Mental status: A&O x 3 Cardiac: regular rate and rhythm Lung: normal respiratory effort Abdomen: S, NT Consent: yes Cannot display prior to admission medications because the patient has not been admitted in this contact. 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 In particular, the patient was informed of the risk of perforation/(1:1000), medication side effect, infection, a missed lesion, or incomplete examination. In the case of dilatation, the patient was informed of the risk of perforation (1 to 5%). There was nothing onhistory or physical examination precluding the procedure. documented in this encounter Procedure Notes * Annette Whitney MD - 08/15/2022 11:55 AM CDTAssociated Order(s): POUCHOSCOPY REPORT [facility] Endoscopy Patient Name: Edgardo Elkins Procedure Date: 08/15/2022 Date of : 1970 Age: 51 Attending MD: Annette Whitney , , Procedure: Pouchoscopy Indications: History of total colectomy, Inflammatory bowel disease Providers: Annette Whitney Medicines: Propofol per Anesthesia Procedure: Informed consent was obtained for the procedure, including moderate sedation after risks were discussed. Based on the pre-procedure assessment, including review of the patient's medical history, medications, allergies, and review of systems, the patient was deemed to be an appropriate candidate for sedation. A timeout was performed. Continuous ECG monitoring, pulse oximetry, blood pressure monitoring, and direct observation were performed. The Endoscope was introduced through the ileoanal anastomosis via the anus and advanced to the ileoanal pouch and into the ari-terminal ileum. The procedure was performed without difficulty. The patient tolerated the procedure well. The quality of the bowel preparation was adequate. Estimated Blood Loss: Minimal Findings: The pre pouch ileum appeared normal The inlet to the pre-pouch ileum/proximal pouch was characterized by inflammation with deep ulcerations with surrounding erythema. Biopsies were taken with cold forceps for histology. The body of the pouch was normal and healthy appearing There was inflammation in the distal pouch and the rectal cuff. Biopsies were taken with cold forceps for histology. Complications: None Impression: Inflammation in the distal and proximal J-pouch consistent with active Crohn's of the pouch The body of the pouch appeared normal and healthy Recommendation: Discharge home with escort Follow up pathology Continue Budesonide Start cefdinir 300 mg twice daily for 10 days Change entyvio to skirizi for ongoing treatment of Crohn's of the pouch Resume diet Follow up in my office at time of 2nd skirizi infusion Annette Whitney, 08/15/2022 11:54:56 AM This report has been signed electronically. Number of Addenda: 0 Procedure Date: 08/15/2022 11:16:[id number] [address] * Lisy Key RN - 08/12/2022 3:09 PM CDT [facility] Nurse Assessment Patient: Edgardo Elkins : 1970 Endoscopist: Surgeon(s): Annette Whitney MD Upcoming Procedure: Procedure to be Performed: Procedure(s): checkout COLONOSCOPY Procedure Date/Time: 08/15/2022 at 1220 Diagnosis/Indication for procedure: Pre-Op Diagnosis Codes: * Ulcerative pancolitis with complication [K51.019] Location: [facility] Referring Physician: * No referring provider recorded for this case * Patient's BMI: Body mass index is 26.58 kg/m??. Is patient a candidate for offsite location? yes Medications Type of prep given: pouchoscopy prep Anticoagulants: no none Relevant prior procedure/pathology: Procedure: POUCHOSCOPY Physician: [facility] Date: 06/12/2020 Location: GI LAB Last Pathology: FINAL DIAGNOSIS Small intestine, pre-pouch ileum, endoscopic biopsy: - Active ileitis, patchy and very mild. Small intestine, pouch, endoscopic biopsy: - Small intestinal mucosa with reactive changes and patchy and mild active enteritis. Intestine, rectal cuff, endoscopic biopsy: - Small intestinal mucosa/rectal mucosa with patchy and mild active enteritis Past Surgical History: Past Surgical History: Procedure Laterality Date HX COLECTOMY 2002 HX HIP REPLACEMENT, TOTAL Left 10/08/2017 MD COLONOSCOPY FLX DX W/COLLJ SPEC WHEN PFRMD 12/08/2009 COLONOSCOPY performed by LOUISE RIZO at [facility] GI [facility] MD COLONOSCOPY FLX DX W/COLLJ SPEC WHEN PFRMD 06/09/2014 COLONOS[address] performed by Lane Ryan MD at [facility] GI LAB MD DILATION RECTAL STRICTURE W ANEST 06/12/2012 RECTAL STRICTURE DILATATION performed by Lane Ryan MD at [facility] GI LAB MD ENDOSCOPY UPPER SMALL INTESTINE 06/12/2012 SMALL BOWEL ENTEROSCOPY performed by Lane Ryan MD at [facility] GI LAB MD ENDOSCOPY UPPER SMALL INTESTINE N/A 08/24/2017 SMALL BOWEL ENTEROSCOPY performed by Lane Ryan MD at [facility] GI LAB MD ENDOSCOPY UPPER SMALL INTESTINE W/BIOPSY 02/28/2012 BOWEL SMALL BIOPSY ENDOSCOPIC performed by Lane Ryan MD at [facility] GI LAB MD ESOPHAGOGASTRODUODENOSCOPY TRANSORAL DIAGNOSTIC 02/28/2012 ESOPHAGOGASTRODUODENOSCOPY performed by Lane Ryan MD at [facility] GI LAB MD NDSC EVAL INTSTINAL POUCH DX W/COLLJ SPEC SPX 02/16/2012 POUCHOSCOPY performed by Louise Rizo MD at [facility] GI LAB MD SIGMOIDOSCOPY FLX DX W/COLLJ SPEC BR/WA IF PFRMD 02/16/2012 SIGMOIDOSCOPY FLEXIBLE performed by Louise Rizo MD at [facility] GI LAB MD SIGMOIDOSCOPY FLX DX W/COLLJ SPEC BR/WA IF PFRMD N/A 06/12/2020 CHECKOUT SIGMOIDOSCOPY FLEXIBLE performed by Annette Whitney MD at [facility] GI LAB Past Medical History: Past Medical History: Diagnosis Date Arthritis Asthma as a child 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 Current Outpatient Medications on File Prior to Encounter Medication Sig Dispense Refill omeprazole (PriLOSEC) 40 mg Capsule, Delayed Release(E.C.) Take 40 mg by mouth daily. budesonide (ENTOCORT EC) 3 mg Enteric Coated 24 hour capsule Take 3 Capsules (9 mg) by mouth daily.90 Capsule 2 [DISCONTINUED] budesonide (ENTOCORT EC) 3 mg Enteric Coated 24 hour capsule Take 3 Capsules (9 mg) by mouth daily. 90 Capsule 2 ergocalciferol (VITAMIN D2) 50,000 unit capsule TAKE 1 CAPSULE BY MOUTH EVERY 2 WEEKS 6 Capsule 3 terbinafine HCL (LamISIL) 250 mg tablet Take 250 mg by mouth daily. testosterone cypionate (DEPO-TESTOSTERONE) 200 mg/mL Oil INJECT 1ML INTRAMUSCULARLY WEEKLY zolpidem (AMBIEN) 5 mg tablet TAKE 1 TABLET BY MOUTH AT BEDTIME NEEDED FOR 30 DAYS dicyclomine (BENTYL) 10 mg capsule TAKE 1 CAPSULE BY MOUTH FOUR TIMES A DAY 360 Capsule 0 water sterile Solution 4.8 mL by See Admin Instructions route see administration instructions. 10 mL 6 hyoscyamine 0.375 mg Extended Release 12 hour tablet Take 1 Tablet (0.375 mg) by mouth every 12 hours as needed for Discomfort. 60 Tablet 1 ondansetron (ZOFRAN) 4 mg Tablet Take 1 Tablet (4 mg) by mouth every 8 hours as needed for Nausea/Emesis. 15 Tablet None diphenoxylate-atropine (LOMOTIL) 2.5-0.025 mg tablet Take 1 Tablet by mouth 4 times daily as neededfor Diarrhea/Loose Stools. 60 Tablet 1 Syringe with Needle, Disp, (BD Luer-Jesusita Syringe) 3 mL 23 gauge x 1 1/2 Syringe For use with B12 injections 12 Each 2 SOLU-MEDROL, PF, 40 mg/mL Recon Soln ADMINISTER 40 MG VIA SLOW INTRAVENOUS PUSH IN CASE OF SEVERE ALLERGICREACTION. 1 Each 0 SOLU-CORTEF 100 mg Recon Soln ADMINISTER 50 MG VIA SLOW INTRAVENOUS PUSH IN CASE OF SEVERE ALLERGICREACTION. DISCARD EXCESS. 100 mg 0 BD PRECISIONGLIDE 25 gauge x 1 Needle USE DIRECTED TO ADMINISTER SOLU CORTEF 5 Each 1 diphenhydrAMINE (BENADRYL) 50 mg/mL Solution ADMINISTER 25 MG VIA SLOW INTRAVENOUS PUSH IN CASE OF SEVERE ALLERGICREACTION. DISCARD EXCESS 1 mL 0 vedolizumab (ENTYVIO) 300 mg Recon Soln Inject 300 mg by intraveous injection see administration instructions. Home [employer]INEER to administer over 30 minutes every 8 weeks. (Patient taking differently: Inject 300 mg by intravenous injection see administration instructions. Home [employer] ENGINEER to administer 300 mgvia IV over 30 minutes every 4 weeks.) 300 mg 3 TESTOSTERONE, BULK, MISC 1 mL by Misc.(Non-Drug; Combo Route) route. documented in this encounter Plan of Treatment Upcoming Encounters Date Type Department Care Team (Late st Contact Info) Description 02/13/2025 10:30 AM CDT Office Visit [facility] [place] [address] [place] [address] Kitty Dover ANP [address] [place] [address] documented as of this encounter Procedures Procedure Name Priority Date/Time Associated Diagnosis Comments MD NDSC EVAL INTSTINAL POUCH DX W/COLLJ SPEC SPX 08/15/2022 12:20 PM CDT Ulcerative pancolitis with complication Case Notes pouchoscopy POUCHOSCOPY REPORT 08/15/2022 11 :56 AM CDT PATHOLOGY Pathology 08/15/2022 11:45 AM CDT Ulcerative pancolitis with complication documented in this encounter Results * POUCHOSCOPY REPORT (08/15/2022 11:56 AM CDT) Narrative Procedure Note Annette Whitney MD - 08/15/2022 11:[address] [facility] Endoscopy Patient Name: Edgardo Elkins Procedure Date: 08/15/2022 Date of : 1970 Age: 51 Attending MD: Annette Whitney , , Procedure: Pouchoscopy Indications: History of total colectomy, Inflammatory bowel disease Providers: Annette Whitney Medicines: Propofol per Anesthesia Procedure: Informed consent was obtained for the procedure, including moderate sedation after risks were discussed. Based on the pre-procedure assessment, including review of the patient's medical history, medications, allergies, and review of systems, the patient was deemed to be an appropriate candidate for sedation. A timeout was performed. Continuous ECG monitoring, pulse oximetry, blood pressure monitoring, and direct observation were performed. The Endoscope was introduced through the ileoanal anastomosis via the anus and advanced to the ileoanal pouch and into the ari-terminal ileum. The procedure was performed without difficulty. The patient tolerated the procedure well. The quality of the bowel preparation was adequate. Estimated Blood Loss: Minimal Findings: The pre pouch ileum appeared normal The inlet to the pre-pouch ileum/proximal pouch was characterized by inflammation with deep ulcerations with surrounding erythema. Biopsies were taken with cold forceps for histology. The body of the pouch was normal and healthy appearing There was inflammation in the distal pouch and the rectal cuff. Biopsies were taken with cold forceps for histology. Complications: None Impression: Inflammation in the distal and proximal J-pouch consistent with active Crohn's of the pouch The body of the pouch appeared normal and healthy Recommendation: Discharge home with escort Follow up pathology Continue Budesonide Start cefdinir 300 mg twice daily for 10 days Change entyvio to skirizi for ongoing treatment of Crohn's of the pouch Resume diet Follow up in my office at time of 2nd skirizi infusion Annette Whitney, 08/15/2022 11:54:56 AM This report has been signed electronically. Number of Addenda: 0 Procedure Date: 08/15/2022 11:16:[id number] [address] Annette Whitney MD GI PROCEDURE O RDERABLES * PATHOLOGY (08/15/2022 11:45 AM CDT) CASE REPORT Surgical Pathology Report ? Case: [id number] ? Authorizing Provider: ??Annette Whitney, ?? Collected: ? 08/15/2022 11:45 AM ? MD ? Ordering Location: ? [facility] Endoscopy ?? Received: ?08/15/2022 02:32 PM ? [facility] ? Pathologist: ? Girish Fagan DO ? Specimens: ?? A) - Colon, proximal pouch bx. ? B) - Colon, rectal cuff bx. ? 8:27 AM [facility] FINAL DIAGNOSIS Proximal pouch , endoscopic biopsy: - Chronic active enteritis with mucosal ulceration (see comment). - No granulomas or dysplasia identified. Rectal cuff , endoscopic biopsy: - Chronic active enteritis, moderate. - No granulomas or dysplasia identified. 8:27 AM [facility] NOSIS COMMENT Pouchitis and pouch involvement by inflammatory bowel disease display a similar spectrum of histologic features, and the distinction between between the two cannot be made on the basis of histology alone. 8:27 AM [facility] GROSS DESCRIPTION The specimens are received in 2 separate formalin filled containers, both labeled with Edgardo Elkins. The first specimen is additionally labeled proximal pouch biopsy and consists of 2 pieces of pink-newman tissue each measuring 0.2 cm, entirely submitted in A1. The second container is additionally labeled rectal cuff biopsy and consists of a single fragment of pink-newman tissue measuring 0.3 x 0.2 x 0.1 cm, entirely submitted in B1. ELH/MM 10/26/202 2 8:27 AM [facility] MICROSCOPIC DESCRIPTION The slides are labeled [id number] and Edgardo Elkins. Sections of the proximal pouch biopsy show fragments of intestinal mucosa with areas of surface ulceration and proliferation of granulation tissue within the lamina propria. There is an associated collection of fibrin and inflammatory debris. The granulation tissue and surrounding mucosa are remarkable for marked acute and chronic inflammation associated with mucosal architectural distortion with crypt branching, crypt dropout, and varying degrees of villous blunting. Within the granulation tissue there are endothelial stromal cells with marked reactive/reparative changes. An immunostain for CMV shows no viral inclusions. No dysplasia or carcinoma is identified. No well-formed granulomas are seen. Sections of the rectal cough biopsy show fragments of intestinal mucosa with expansion of the lamina propria by proliferating granulation tissue and a mixed inflammatory cell infiltrate that includes neutrophils, plasma cells, eosinophils, and scattered lymphocytes. An immunostain for CMV shows no viral inclusions. Focal cryptitis is noted. There is accompanying mucosal architectural distortion with crypt branching and crypt dilatation. A sharply defined ulcer is not seen. Marked reactive/reparative epithelial changes are noted. No dysplasia is identified. No well-formed granulomas are seen. 2 8:27 AM [facility] OPERATIVE PROCEDURE 1: POUCHOSCOPY 2 8:27 AM [facility] CLINICAL INFORMATION K51.019-Ulcerative pancolitis with complication 2 8:27 AM [facility] HOSPITAL COMMENT Special stain, immunohistochemical, and/or in situ hybridization results are interpreted with controls that demonstrate appropriate staining reactions. Note on use of immunohistochemistry reagents and in situ hybridization probes: These tests were developed and their performance characteristics determined by [facility], Department of Laboratory Medicine. It has not been cleared or approved by the U.S. Food and Drug Administration. The FDA has determined that such clearance or approval is not necessary. The test is used for clinical purposes. It should not be regarded as investigational or for research. This laboratory is certified to perform high complexity testing. Frozen section/operating room consultation, gross examination and dissection, and case sign out may have been performed in part or completely in the following laboratories: [facility], [facility] #[id number] [address] [place] [address] [place] [address] [facility], [place] #[id number] [address] [place] [address] [facility], [place] #[id number] [address] [place] [address] This report was created with the [employer] voice-activated dictation system. Inherent to this system is the possibility of syntax, grammar, punctuation and other errors that could impact the interpretation of the report. If there are interpretative questions about aspects of this report, please contact the performing pathologist. 8:27 AM CDT [facility] Tissue SPECIMEN FROM COLON / Unknown Collection / Unknown 08/15/2022 11:45 AM CDT 08/15/2022 2:32 PM CDT Comment:Crohn's disease Tissue specimen (specimen) SPECIMEN FROM COLON / Unknown 08/15/2022 11:45 AM CDT 08/15/2022 2:32 PM CDT Comment:Crohn's disease Annette Whitney MD PATHOLOGY/CYTO LOGY ORDERABLES [facility]# [id number] [address] [place] [address] documented in this encounter Visit Diagnoses Diagnosis Ulcerative pancolitis with complication Ulcerative pancolitis with complication documented in this encounter Administered Medications Inactive Administered Medications - up to 3 most recent administrations Medication Order MAR Action Action Date Dose Rate Site lactated ringers infusion IV, at 125 mL/hr, PRE-PROCEDURE CONTINUOUS, Starting on Mon08/15/22 at 1130, Until Mon08/15/22 at 1415, Routine, Pre-Procedure Restarted 08/15/2022 11:34 AM CDT Continue from Pre-Op 08/15/2022 11:30 AM CDT 12 5 mL/hr New Bag 08/15/2022 11:27 AM CDT 125 mL/hr documented in this encounter Active and Recently Administered Medications Times are shown in CDT. Continuous Medication Order 08/13/2022 08/14/2022 08/15/2022 lactated ringers infusion IV, at 125 mL/hr, PRE-PROCEDURE CONTINUOUS, Starting on Mon08/15/22 at 1130, Until Mon08/15/22 at 1415, Routine, Pre-Procedure 1127 (New Bag - Prov ider: Rajni Silverio, JIE)1130 (Continue from Pre-Op - Provider: GEOFFREY Phipps)1133 (Paused - Provider: GEOFFREY Phipps - Comment: Switch to gravity)1134 (Restarted - Provider: GEOFFREY Phipps)1147 (Fluid Volume - Provider: GEOFFREY Phipps)1205 (Removed - Provider: Tania Osborne RN) documented in this encounter Care Teams Dog Licenser Relationship Specialty Start Date End Date Jasiel Freeman MD [address] [place] [phone] PCP - General Family Practice 08/15/17 documented as of this encounter
--- OUTSIDE RECORDS SUMMARY | 2024-10-24 05:28 | XMS_ITS | Encounter Summary ---
Author Organization [facility] Address [address] [place] [address] Care Team Providers Care Insurance Solicitor Name Role Phone Jasiel Freeman MD Primary Care Provider Reason for Visit * Reason Onset Date Comments Home Visit 08/09/2022 Encounter Details Date Type Department Care Team (Late st Contact Info) Description 08/09/2022 Patient Outreach [facility] - [address] [place] [address] Irina Wyatt, RN Home Visit Social History Tobacco Use Types Packs/Day Years [...] suspected to have Coronavirus/COVID-19? No / Unsure 07/21/2022 10:26 AM CDT documented as of this encounter Last Filed Vital Signs Vital Sign Reading Time Taken Comments Blood Pressure 125/87 08/09/2022 1:45 PM CDT Pulse 82 08/09/2022 1:45 PM CDT Temperature 36.7 ??C (98 ??F) 08/09/2022 1:45 PM CDT Respiratory Rate 16 08/09/2022 1:45 PM CDT Oxygen Saturation 96% 08/09/2022 1:45 PM CDT Inhaled Oxygen Concentration - - Weight - - Height - - Body Mass Index - - documented in this encounter Miscellaneous Notes * Telephone Encounter - Irina Wyatt RN - 08/09/2022 8:26 PM CDT Images from the original note were not included. [facility] Home Infusion NURSING follow up Leonidas Elkins 1970 [address] [facility] [address] Provider - Irina Wyatt RN 08/09/2022 Visit start 1330 Visit end 1445 Contact numbers provided including after hours numbers [...] patient/ caregiver response to instruction - understood. Confirmed with patient that no insurance changes since last dose given. yes Patient states that no anticipated insurance or job changes before next infusion. yes Pt informed on importance of notifying [facility] immediately if any unexpected insurance changes occur.yes No problem observed with learning needs - No cultural, worship, or language barriers to learning Patient and CG are motivated to learn Patient and CG are willing and accepting of necessary care Physical Exam Constitutional: oriented to person, place, and time. appears well-developed and well-nourished. Head: Normocephalic and atraumatic. Eyes: Pupils are equal, round, and reactive to light. Neck: Normal range of motion. Cardiovascular: Normal rate and regular rhythm. Pulmonary/Chest: Effort normal and breath sounds normal. Abdominal: Soft. Normal appearance and bowel sounds are normal. There is no tenderness. GI/: clear yellow urine, 5-6 loose stools a day with cramping. Musculoskeletal: Normal range of motion. Neurological: alert and oriented to person, place, and time. Skin: Skin is warm and dry. Psychiatric: normal mood and affect. Pain: 0 1. senior living assessment and implementation of infusion therapy. Teaching of patient/caregiverrole in infusion therapy. Goal : Infusion therapy will be delivered per physicians orders. Infusion access will remain patent. Patient and caregiver will demonstrate an understanding of teaching and learning goals related to infusion therapy. Intervention : 22 gauge PIV placed to left fa without difficulty. Flushed PIV with 10 ml NS easily with positive blood return. Entyvio vial (300 mg) reconstituted with 4.8 ml sterile water and swirled for 15 seconds. When clear, reconstituted med added to 250 ml NS. Base line vital signs checked. Infusion completed in 30 min. 30 ml ns used to flush remainder of Entyvio thru line. PIV DC'd, bandaid applied. 2. Management of home medication. Goal: Patient/caregiver will verbalized understanding of medication regime. Intervention: Patient manages all medications except Entyvio. Patient takes medication as ordered, knows purpose, basic side effects, and adverse reactions. Patient knows how to reorder medications. [facility] will dispense Entyvio based on current prescribed therapy. Medication reconciliation [...] home infusion nursing visit in approximately 4 - 5 weeks for Entyvio infusion documented in this encounter Plan of Treatment Upcoming Encounters Date Type Department Care Team (Late st Contact Info) Description 02/13/2025 10:30 AM CDT Office Visit [facility] [place] [address] [place] [address] Kitty Dover, MIRTA [address] [place] [address] [place] [address] documented as of this encounter Visit Diagnoses Not on filedocumented in this encounter Care Teams Insurance Solicitor Relationship Specialty Start Date End Date Jasiel Freeman MD [address] [place] [phone] PCP - General Family Practice 08/15/17 documented as of this encounter
--- OUTSIDE RECORDS SUMMARY | 2024-10-24 05:28 | XMS_ITS | Encounter Summary ---
Author Organization [facility] Address [address] [place] [address] Care Team Providers Care Assistant Attorney General Name Role Phone Jasiel Freeman MD Primary Care Provider Reason for Visit * Reason Onset Date Comments Results 12/12/2022 Encounter Details Date Type Department Care Team (Late st Contact Info) Description 12/12/2022 Telephone [facility] [address] [address] Annette Whitney MD [address] [facility] [address] DIV [place] [phone] Results Social History Tobacco Use Types Packs/Day Years [...] suspected to have Coronavirus/COVID-19? No / Unsure 12/09/2022 1:02 PM SLAT BASKET TOP MAKER documented as of this encounter Miscellaneous Notes * Telephone Encounter - Nilda Anne - 12/12/2022 3:24 PM CST Called patient and went over doctors response and is with understanding BASKET TOP MAKER * Telephone Encounter - Nilda Anne - 12/12/2022 3:24 PM CST Annette Whitney MD sent to Nilda Anne Caller: Unspecified (Today, 9:16 AM) He may take 2 immodium (crushed) 4 times daily BASKET TOP MAKER * Telephone Encounter - Nilda Anne - 12/12/2022 2:06 PM CST Called patient and went over how he was doing. Doing a better still using the bathroom up to 8 times a day, still watery, Will get about 4 hours of sleep then will be up and down for a few hours. BASKET TOP MAKER * Telephone Encounter - Annette Whitney MD - 12/12/2022 9:16 AM SLAT BASKET TOP MAKER Please call and check on symptoms. C. Diff negative.Needs repeat LFTs this week- mon/th. BASKET TOP MAKER documented in this encounter Plan of Treatment Upcoming Encounters Date Type Department Care Team (Late st Contact Info) Description 02/13/2025 10:30 AM CDT Office Visit [facility] [place] [address] [place] [address] Kitty Dover, MIRTA [address] [place] [address] documented as of this encounter Visit Diagnoses Not on filedocumented in this encounter Additional Health Concerns Assessment Noted Time PHQ-9 Depression Total Score: 2 12/08/19 23 11:00 AM SLAT BASKET TOP MAKER documented as of this encounter Care Teams Assistant Attorney General Relationship Specialty Start Date End Date Jasiel Freeman MD [address] [place] [phone] PCP - General Family Practice 08/15/17 documented as of this encounter
--- OUTSIDE RECORDS SUMMARY | 2024-10-24 05:28 | XMS_ITS | Encounter Summary ---
Author Organization [facility] Address [address] [place] [address] Care Team Providers Care Resource Program Teacher Name Role Phone Jasiel Freeman MD Primary Care Provider Reason for Referral * Home Infusion (Routine) - Closed Specialty Diagnoses / Procedures Referred By Contac t Referred To Contact Home Health Diagnoses Crohn's disease with other complication, unspecified gastrointestinal tract location Annette Whitney MD [address] [facility] [place] [address] Referral ID Status Reason Start Date Expiration Date Visits Requested Visits Authorized [id number] Closed Performing Department to Schedule 11/03/2022 11/03/2023 1 1 Scheduling Instructions To complete referral use the comments field above. Performing department to schedule. JAVASCRIPT ENGINEER * Eval and Treat (Routine) - Closed Specialty Diagnoses / Procedures Referred By Contact Referred To Contact Gastroenterology Diagnoses Crohn's disease with other complication, unspecified gastrointestinal tract location Annette Whitney MD 1 [facility] [place] [address] [facility] [address] [place], [place] [phone] Referral ID Status Reason Start Date Expiration Date Visits Re quested Visits Authorized [id number] Closed 08/17/2022 08/17/2023 1 1 * Outpatient Services (Routine) - Closed Specialty Diagnoses / Procedures Referred By Contact Referred To Contact Gastroenterology Diagnoses Crohn's disease with other complication, unspecified gastrointestinal tract location Procedures INFUSION THERAPY Annette Whitney MD [address] [facility] [place] [address] [facility] [address] [facility] [address] [place] [address] Referral ID Status Reason Start Date Expiration Date Visits Re quested Visits Authorized [id number] Closed 10/31/2022 01/28/2023 1 3 Reason for Visit * Reason Onset Date Comments Marley Mohan 08/17/2022 Encounter Details Date Type Department Care Team (Late st Contact Info) Description 08/17/2022 Telephone [facility] [address] [facility] [address] [place] [address] nAnette Whitney MD [address] [facility] [place] [place] [phone] Marley Mohan Social History Tobacco Use Types Packs/Day Years [...] suspected to have Coronavirus/COVID-19? No / Unsure 12/15/2022 2:36 PM LEAD JAVASCRIPT ENGINEER documented as of this encounter Miscellaneous Notes * Addendum Note - Silva Anne - 01/02/2023 4:03 PM CDTAddended by: SILVA ANEN on: 01/02/2023 04:03 PM Modules accepted: Orders * Telephone Encounter - Silva Anne - 01/02/2023 4:03 PM CDT Order has been sent * Telephone Encounter - Sylvia Nguyễn CNA - 01/02/2023 8:58 AM CDT Could you send the Skyrizi OBI to [place] * Addendum Note - Charlotte Gore RN - 11/03/2022 12:00 PM CSTAddended by: CHARLOTTE GORE on: 11/03/2022 12:00 PM Modules accepted: Orders JAVASCRIPT ENGINEER * Telephone Encounter - Charlotte Gore RN - 10/04/2022 12:21 PM LEAD JAVASCRIPT ENGINEER Appeal upheld. Denial information submitted to cpro for bridge program. JAVASCRIPT ENGINEER * Telephone Encounter - Sylvia Nguyễn CNA - 08/30/2022 2:37 PM CST Appeal was sent to [employer] JAVASCRIPT ENGINEER * Telephone Encounter - Sylvia Nguyễn CNA - 08/24/2022 7:47 AM CDT Just need to be sure [employer] sent a fax to our office in regards to him switching from Entyio to Skyrizi is this still needing to happen? * Telephone Encounter - Charlotte Gore RN - 08/17/2022 10:48 AM CDT [place] [employer]. Enrolled in CPR. Ref placed for home infusion. documented in this encounter Plan of Treatment Upcoming Encounters Date Type Department Care Team (Late st Contact Info) Description 02/13/2025 10:30 AM CDT Office Visit [facility] [place] [address] [facility] [address] [place] [address] Kitty Dover, [facility] [address] [place] [address] [facility] [address] [place] [address] Scheduled Referrals Name Type Priority Associated Diagnoses Orde r Schedule AMB REFERRAL TO NURSE NAVIGATOR Outpatient Referral Routine Crohn's disease with other complication, unspecified gastrointestinal tract location Ordered: 08/17/2022 AMB REFERRAL TO HOME INFUSION Outpatient Referral Routine Crohn's disease with other complication, unspecified gastrointestinal tract location Ordered: 11/03/2022 documented as of this encounter Visit Diagnoses Diagnosis Crohn's disease with other complication, unspecified gastrointestinal tract location- Primary Ulcerative pancolitis without complication documented in this encounter Additional Health Concerns Infection Onset Date Last Indicated Resolved Time R/O C. diff 12/11/2022 12/09/2022 12/11/2022 1:26 PM LEAD JAVASCRIPT ENGINEER documented as of this encounter Care Teams Resource Program Teacher Relationship Specialty Start Date End Date Jasiel Freeman MD [address] [place] [address] PCP - General Family Practice 08/15/17 documented as of this encounter
--- OUTSIDE RECORDS SUMMARY | 2024-10-24 05:28 | XMS_ITS | Encounter Summary ---
Author Organization [facility] Address [address] [place] [address] Care Team Providers Care Faith Doctor Name Role Phone Jasiel Freeman MD Primary Care Provider Encounter Details Date Type Department Care Team (Late st Contact Info) Description 10/06/2023 External Device Data ST[facility] ABSTRACTION Provider, Abstract NO ADDRESS ON FILE Social History Tobacco Use Types Packs/Day Years [...] as of this encounter Plan of Treatment Upcoming Encounters Date Type Department Care Team (Late st Contact Info) Description 02/13/2025 10:30 AM CDT Office Visit [facility] [place] [address] [place] [address] Kitty Dover, MIRTA [address] [place] [address] documented as of this encounter Visit Diagnoses Not on filedocumented in this encounter Additional Health Concerns Assessment Noted Time PHQ-9 Depression Total Score: 2 12/08/19 23 11:00 AM FLOUR WORKER documented as of this encounter Care Teams Faith Doctor Relationship Specialty Start Date End Date Jasiel Freeman MD [address] [place] [address] PCP - General Family Practice 08/15/17 documented as of this encounter
--- OUTSIDE RECORDS SUMMARY | 2024-10-24 05:28 | XMS_ITS | Encounter Summary ---
Author Organization [facility] Address [address] [place] [address] Care Team Providers Care Home Office Claims Examiner Name Role Phone Jasiel Freeman MD Primary Care Provider [phone] Encounter Details Date Type Department Care Team (Late st Contact Info) Description 09/13/2022 Specialty Pharmacy [facility] Home [facility]fusion - [address] [place] [address] Belen Matt PHARMACIST Social History Tobacco Use Types Packs/Day Years [...] AM CDT documented as of this encounter Progress Notes * Belen Matt PHARMACIST - 09/14/2022 9:40 AM CST [facility] Patient Name: [facility] Orders Medication: Entyvio 300 mg IV every 4 weeks Pre-infusion medication(s): Tylenol 1000 mg, Claritin 10 mg oral tablets (provided by patient if heshould need them) Treating Diagnosis: Ulcerative colitis Method of administration: IV infusion Equipment: n/a Prescriber(s): Annette Whitney MD Therapy Start Date: 08/08/2019 Anticipated Therapy End Date: Ongoing Notes: Pharmacist spoke with patient and MD on 09/13/22 to confirm and coordinate delivery. has sent new order for the patient to start Skyrizi in place of Entyvio. The PA for Skyrizi was denied and an appeal by the MDO has been started. In the meantime, MD wants patient to continue Entyvio infusions until that appeal is approved for Skyrizi. Patient is aware of this as well. Vascular Access Device (VAD) Orders Type of VAD: PIV NS 10 mL: 10 mL before and after each dose and as needed for lab draws/line complications Pharmacy to dispense flushes, catheter supplies and all medically necessary infusion supplies untilcatheter is removed. Lab orders: No labs needed Nursing Provided by [facility] Therapy Specific Entyvio (vedolizumab) The most common infusion reactions of Entyvio include: Common cold Headache Joint pain Nausea Fever Infections of the nose and throat Tiredness Cough Bronchitis Flu Back pain Rash Itching Sinus infection Throat pain Pain in extremities Note: HOME OFFICE CLAIMS EXAMINER to observe patient during infusion and monitor for hypersensitivity reaction. Pertinent Health Information / DUR Recent changes to Medical History, Allergies, Medical Conditions? No A full medication reconciliation has been completed for all medications that patient is receiving? Yes Any new Medications (including OTCs and Herbals)? No Any reported Adverse Reactions or Side Effects to Medication(s)? No Recent changes to dose, frequency, or form of medication since last dispense? No Pharmacist conducted Drug Utilization Review (DUR)? Yes Any lab values of note since last dispense? No, last negative TB test 07/29/21. Please see high-riskscreening below. Note: High-Risk TB Screening: Patients at increased risk for M. Tuberculosis infection include: Individuals in close contact with person's known or suspected to have active tuberculosis False Foreign-born persons from areas that have a high incidence of active tuberculosis (e.g. [place], [place], [place], [place], and [place]) False Persons who visit areas with a high prevalence of tuberculosis, especially if visits are frequent or prolonged False Residents and employees of congregate settings whose clients are at increased risk for active tuberculosis (e.g. correctional facilities, long-term care facilities, and homeless shelters) False Health-care workers who serve clients who are at increased risk for active tuberculosis False Populations defined locally as having an increased incidence of latent tuberculosis infection or active tuberculosis infection, possibly including medically underserved, low-income populations, or persons who abuse drugs and/or alcohol False Infants, children, and adolescents exposed to adults who are at increased risk for latent or activetuberculosis infection False Pharmacy Information Adherence issues (reported or suspected)?: No Administration issues?: No Patient is receiving therapeutic benefits from therapy?: Yes Any questions/concerns for the pharmacist?: No Patient to continue with the current therapy?: Yes Note: Patient Assessment/Counselling Upon initiating home infusion therapy, the patient/caregiver received education, counseling, and/orresources to promote adherence to therapy: Yes The patient/caregiver knows how to properly use and store the medication: Yes The patient is free of any functional limitations that would prevent them from reading any of the information provided: Yes The patient is not considered to be an ???at risk?? patient, have high risk comorbidities or require additional assistance: Yes Note: Dispensing Coordination Any changes to prescription/medical insurance or copay assistance? No Patient requires delivery to cover through 09/14/22 Pharmacy to send Entyvio + IV supplies Permission to leave delivered package? Yes Delivery Instructions: deliver 09/13/22 via same day paint roller cover machine setter Note: General Information for this assessment provided by [employer] Record + Patient HIPAA contact identified: Yes Note: ???Welcome Packet?? been provided to the patient Yes Note: [facility] with initial delivery [facility] Additional Notes Pharmacy communicated/coordinated with MD inspector firearms? Yes Follow up notes for next encounter? Yes Note: Pharmacy Plan of Care Pharmacist Professional Services 15/05 support Therapy evaluation, design, and preparation ensuring compatibility with VAD, external infusion pumpand supplies, patient ability and therapy goals Review, develop and modify the monitoring plan Perform medication review for all drug interactions, contraindications and therapy duplication Provide education for home infusion medication side effects, interactions, adverse reactions, and infusion related reactions Remote monitoring for response to therapy, side effects, administration-related reactions, VAD events Patient Care, Instruction, Monitoring and Assessments Review of patient medical history - Initial and ongoing Physical, mental, and environmental assessment - Initial and ongoing Infection control, hand hygiene, VAD and self-care - Initial and ongoing VAD evaluation, care, and maintenance - Initial and ongoing Medication administration, safe handling, and monitoring - Initial and ongoing Response and adherence to treatment - Initial and ongoing Monitoring for drug adverse events - Initial and ongoing Lab draws - As ordered by physician Additional Needs Functional limitations: none identified Special dietary or nutritional needs: none identified Safety concerns: none identified Intervention(s): Based on therapy Goals Resolution of primary problem Prevent VAD associated complications Administration of therapy free of complications Prevention of adverse drug events HOUSE RECORD CLERK documented in this encounter Plan of Treatment Upcoming Encounters Date Type Department Care Team (Late st Contact Info) Description 02/13/2025 10:30 AM CDT Office Visit [facility] [place] [address] [place] [phone] Kitty Dover, MIRTA [address] [place] [address] documented as of this encounter Visit Diagnoses Not on filedocumented in this encounter Care Teams Home Office Claims Examiner Relationship Specialty Start Date End Date Jasiel Freeman MD [address] [place] [phone] PCP - General Family Practice 08/15/17 documented as of this encounter
--- OUTSIDE RECORDS SUMMARY | 2024-10-24 05:28 | XMS_ITS | Encounter Summary ---
Author Organization [facility] Address [address] [place] [address] Care Team Providers Care Director Facilities Maintenance Name Role Phone Jasiel Freeman MD Primary Care Provider Encounter Details Date Type Department Care Team (Late st Contact Info) Description 12/12/2022 Specialty Pharmacy [facility] - [address] [place] [address] Belen Matt PHARMACIST Social History [...] suspected to have Coronavirus/COVID-19? No / Unsure 12/08/2022 10:51 AM PICTURE BOOKER documented as of this encounter Progress Notes * Belen Matt PHARMACIST - 12/09/2022 8:30 AM CST [facility] Patient Name: [facility] Orders Medication: Skyrizi 600 mg IV on weeks 0, 4, and 8 Treating Diagnosis: Ulcerative colitis Prescriber(s): Annette Martin MD Therapy Start Date: 11/15/22 Anticipated Therapy End Date: 01/10/23 Note: No changes, continue with therapy as is. Patient reports taking amoxicillin 500 mg TID at this time. He has an appointment with GI MD on 12/08/22 and will discuss infusing Skyrizi while on antibiotics. Patient will communicate with RN, Irina, if any changes to infusion date are to be made. Week 0 - 11/15/22 Week 4 - 12/12/22 Week 8 - 01/10/23 (approx.) Vascular Access Device (VAD) Orders Type of VAD: PIV NS 10 mL: 10 mL before and after each dose and as needed for lab draws/line complications Pharmacy to dispense flushes, catheter supplies and all medically necessary infusion supplies untilcatheter is removed. Lab orders: No labs needed/ordered Nursing Provided by [facility] Therapy Specific Skyrizi Antibody formation: Formation of neutralizing anti-drug antibodies may occur with risankizumab and may be associated with loss of efficacy (AAD/NPF [Menter 2019]). Hepatotoxicity: Drug-induced liver injury (AST 30 ?? ULN, ALT 54 ?? ULN, and total bilirubin 2.2 ??ULN) has occurred during treatment for Crohn disease and required hospitalization. Interrupt treatment if drug-induced liver injury is suspected. Hypersensitivity reactions: Serious hypersensitivity, including anaphylaxis, has been reported. Discontinue immediately with signs/symptoms of a serious hypersensitivity reaction and treat appropriately, as indicated. Infections: Risankizumab may increase the risk of infections; upper respiratory tract and tinea infections have occurred more frequently. Consider the risks versus benefits prior to treatment initiation in patients with a history of chronic or recurrent infection; treatment should not be initiated in patients with clinically important active infections until it is resolved or treated. Monitor forinfections; patients should seek medical attention for signs/symptoms of a clinically important infection (acute or chronic). If a serious infection develops or is unresponsive to appropriate therapyfor the infection, monitor closely and discontinue risankizumab until the infection resolves. Tuberculosis: Patients should be evaluated for tuberculosis (TB) infection prior to initiating therapy. Do not administer to patients with an active TB infection. Treatment for latent TB should be administered prior to administering risankizumab. Consider anti-TB therapy prior to treatment initiation in patients with a history of latent or active TB in whom an adequate course of TB treatment diaz be confirmed. Monitor closely for signs/symptoms of active TB during and after risankizumab treatment. Immunizations: Patients should be brought up to date with all immunizations before initiating therapy. Live vaccines should not be given concurrently; there are no data available concerning secondarytransmission of infection by live vaccines in patients receiving therapy. Monitoring Parameters - CBC with differential (baseline); complete metabolic panel (baseline); liver enzymes and bilirubin (baseline and during induction [at least up to 12 weeks of treatment]); tuberculosis (TB) screening prior to initiating and during therapy (chest X-ray if TB positive); hepatitis B virus (HBV)/hepatitis C virus screening prior to initiating (all patients), HBV carriers (during and for several months following therapy); HIV screening (baseline) (AAD/NPF [Menter 2019]). Note: Pertinent Health Information / DUR No reported changes to Medical History, Allergies, Medical Conditions. True A full medication reconciliation has been completed for medications that patient is receiving. True There are no new medications reported (including OTCs and herbals). True No changes to dose, frequency, or form of medication since last dispense. True No reported Adverse reactions or Side Effects to medications. True Pharmacist conducted Drug Utilization Review (DUR). True Pertinent labs reviewed. All reviewed labs acceptable or wnl. True Pharmacy Information No reported or suspected adherence issues. True No reported or suspected administration issues. True Patient is receiving therapeutic benefits from prescribed therapy. True Patient is to continue with therapy as currently prescribed. True Patient or caregiver was asked if they had any questions for the pharmacist. True There were no questions or concerns for the pharmacist. True Patient Assessment/Counselling Welcome Packet has been provided to the patient True Upon initiating therapy, the patient/caregiver received education, counseling, and/or resources to promote adherence to therapy. True The patient/caregiver knows how to properly use and store the medication(s). True The patient/caregiver is free of any functional limitations that would prevent them from reading any of the written information provided (drug information, teaching sheets, financial responsibility etc.) True The patient is not considered to be an ???at risk?? patient, have high risk comorbidities or require additional assistance. True General Info, Dispensing Coordination & Logistics Information for this assessment provided by [employer] record + patient HIPAA contact identified? No Any changes to prescription/medical insurance or copay assistance? No Patient requires delivery to cover through 12/12/22 Pharmacy to send Skyrizi + IV supplies Delivery date: deliver 12/06/22 via same day pediatrics physician Specific delivery Instructions: Permission to leave delivered package? Yes Pharmacy Plan of Care Pharmacist Professional Services [...] As ordered by physician Additional Needs Functional limitations - None identified Specialty dietary or nutritional needs - None identified Safety concerns - None identified Intervention(s): Based on therapy (see Home Infusion Orders and Therapy Specific sections above) Goals Appropriate disease state management and/or resolution Prevent VAD associated complications Administration of therapy free of complications Prevention of adverse drug events URE BOOKER documented in this encounter Plan of Treatment Upcoming Encounters Date Type Department Care Team (Late st Contact Info) Description 02/13/2025 10:30 AM CDT Office Visit [facility] [place] [address] [place] [address] Kitty Dover, MIRTA [address] [place] [address] documented as of this encounter Visit Diagnoses Not on filedocumented in this encounter Additional Health Concerns Assessment Noted Time PHQ-9 Depression Total Score: 2 12/08/19 23 11:00 AM PICTURE BOOKER documented as of this encounter Care Teams Director Facilities Maintenance Relationship Specialty Start Date End Date Jasiel Freeman MD [address] [place] [address] PCP - General Family Practice 08/15/17 documented as of this encounter
--- OUTSIDE RECORDS SUMMARY | 2024-10-24 05:28 | XMS_ITS | Encounter Summary ---
Author Organization [employer] Address 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 Name Role Phone Jasiel Freeman MD Primary Care Provider Reason for Visit * Auth/Cert (Routine) Specialty Diagnoses / Procedures Referred By Lambert pizarro Referred To Contact Perioperative Diagnoses Crohn's disease with fistula, unspecified gastrointestinal tract location Procedures AL NDSC EVAL INTSTINAL POUCH DX W/COLLJ SPEC SPX CHECKOUT POUCHOSCOPY Jessica Bejarano MD [address] [place] [phone] [facility] [address] [place] [phone] Referral ID Status Reason Start Date Expiration Date Visits Re quested Visits Authorized [id number] 1 1 Encounter Details Date Type Department Care Team (Latest Contact Info) Description 08/06/2024 7:22 AM CDT - 08/06/2024 9:03 AM CDT Hospital Encounter [facility] [address] [place] [address] Jessica Bejarano MD [address] [place] [phone] Crohn's disease with fistula, unspecified gastrointestinal tract location Discharge Disposition: Home or Self Care Social History Tobacco Use Types Packs/Day Years Used Date Smoking Tobacco: Former Cigarettes 0.5 10 0 06/09/2001 - 06/09/2011 Smokeless Tobacco: Never Comments:off & on Alcohol Use Standard Drinks/Week Comments Yes 0 (1 standard drink = 0.6 oz pur e alcohol) occ Feeling Safe Answer Date Recorded Are you in a relationship wi th someone who hurts you emotionally and/or physically? No 08/06/2024 Sex and Gender Information Value Date Recorded Sex Assigned at Male 01/31/2024 6:50 AM CDT Gender Identity Male 01/31/2024 6:50 AM CDT Sexual Orientation Straight 01/31/2024 6: 50 AM CDT documented as of this encounter Last Filed Vital Signs Vital Sign Reading Time Taken Comments Blood Pressure 117/65 08/06/2024 8:38 AM CDT Pulse 78 08/06/2024 8:38 AM CDT Temperature 36.2 ??C (97.2 ??F) 08/06/2024 8:18 AM CD T Respiratory Rate 18 08/06/2024 8:38 AM CDT Oxygen Saturation 96% 08/06/2024 8:38 AM CDT Inhaled Oxygen Concentration - - Weight 80.8 kg (178 lb 3.2 oz) 08/06/2024 7:27 A M CDT Height 175.3 cm (5' 9 ) 08/06/2024 7:27 AM CDT Body Mass Index 26.32 08/06/2024 7:27 AM CDT documented in this encounter Discharge Instructions * Discharge Instructions* Jessica Bejarano MD - 08/06/2024 7:56 AM CDT Instructions after Pouchoscopy After a pouchoscopy it is normal to experience some minor ???gas pains?? because of the air that was introduced to your small intestines during the procedure. Tylenol will help to relieve any discomfort. DO NOT drink alcohol until tomorrow. DO NOT drive, operate machinery, make critical decisions until tomorrow. Limit activities that require coordination or balance for 24 hours. Resume your previous diet unless otherwise instructed. Resume your previous medications unless otherwise instructed. Notify your physician if you develop any of the following. If you cannot get a hold of your physician, go to the ER for severe pain or fever: Severe pain Fever of 101 degrees F Large amount of bleeding, passing large blood clots, or black tarry stools Redness or soreness at the IV site If tissue samples were taken during the procedure, you will be notified by your [employer] Account with the results. If you do not have a [employer] account, you will receive a letter in the mail. If you have not been notified within two weeks, please call the office. Please NEVER assume that your results are fine if you do not hear from me. It is always possible that results did not get relayed to my o ffice or were somehow overlooked. [facility] [address] [place] [address] Other important numbers to add to our contact info: After hours physician exchange: [phone] To schedule another procedure: Endoscopy Scheduling [phone] Thank you very much for choosing [facility] Gastroenterology. Jessica Bejarano MD [facility] Inflammatory Bowel Disease/Gastroenterology documented in this encounter Medications at Time of Discharge Medication Sig Dispensed Refills Start Date End Date ergocalciferol (VITAMIN D2) 50,000 unit capsuleIndications:Vi tamin D deficiency TAKE 1 CAPSULE BY MOUTH EVERY 7 DAYS FOR 60 DAYS, THEN 1 CAPSULE (50,000 UNITS) EVERY 30 DAYS. 12 Capsule 1 04/24/2024 risankizumab-rzaa (Skyrizi) 360 mg/2.4 mL (150 mg/mL) wearable injector Inject 2.4 mL (360 mg) by subcutaneous injection every 8 weeks. 2.4 mL 5 01/23/2024 hyoscyamine ER 0.375 mg tablet,extended release,12 hr TAKE 1 TABLET (0.375 MG) BY MOUTH EVERY 12 HOURS NEEDED FOR DISCOMFORT. 60 Tablet 1 01/02/2023 montelukast (SINGULAIR) 10 mg tablet Take 10 mg by mouth daily. 11/07/2022 OTHER 09/28/2022 risankizumab-rzaa (SKYRIZI IV) Inject 600 mg by intravenous injection. Administer 600 mg IV on weeks 0, 4, and 8. budesonide (ENTOCORT EC) 3 mg Enteric Coated 24 hour capsule TAKE 3 CAPSULES (9 MG) BY MOUTH DAILY. 270 Capsule 3 11/07/2022 omeprazole (PriLOSEC) 40 mg Capsule, Delayed Release(E.C.) [...] mL by Misc.(Non-Drug; Combo Route) route. documented as of this encounter H&P Notes * Jessica Bejarano MD - 08/06/2024 7:55 AM CDT [facility] Pre-Endoscopy History & Physical Date: 08/06/2024 Patient: Edgardo Elkins / 53 y.o. / male : 1970 CSN: [id number] Planned procedure: Pouchoscopy with possible biopsy/polypectomy Chief Complaint: .UC s/p colectomy SUBJECTIVE: Edgardo Elkins is a 53 y.o. male who presents for a Pouchoscopy for evaluation of UC s/p colectomy onskyrizi OBI q8w Review of Systems: General: no unintentional weight loss HEENT: no oral lesions or sores Respiratory: no shortness of breath Cardiovascular: no chest pain Gastrointestinal: as per HPI Genitourinary: no dysuria Musculoskeletal: no new joint discomfort Neuro: no headache Skin: no obvious rashes or lesions on visualized skin Hematology: no abnormal bruising Past Medical History: Diagnosis Date Arthritis Asthma as a child Injury of face and neck herniated disk Ulcerative colitis Unspecified adverse effect of anesthesia violent after 1st surgery Past Surgical History: Procedure Laterality Date HX COLECTOMY 2001 HX HIP REPLACEMENT, TOTAL Left 10/08/2017 AL COLONOSCOPY FLX DX W/COLLJ SPEC WHEN PFRMD 12/08/2009 COLONOSCOPY performed by LOUISE SOTELO at [facility] AL COLONOSCOPY FLX DX W/COLLJ SPEC WHEN PFRMD 06/09/2014 COLONOSCOPY performed by Lane Ryan MD at [facility] GI LAB AL DILAT RCT STRIX SPX UNDER ANES OTH/THN LOCAL 06/12/2012 RECTAL STRICTURE DILATATION performed by Lane Ryan MD at [facility] GI LAB AL ENDOSCOPY UPPER SMALL INTESTINE 06/12/2012 SMALL BOWEL ENTEROSCOPY performed by Lane Ryan MD at [facility] GI LAB AL ENDOSCOPY UPPER SMALL INTESTINE N/A 08/24/2017 SMALL BOWEL ENTEROSCOPY performed by Lane Ryan MD at [facility] GI LAB AL ENDOSCOPY UPPER SMALL INTESTINE W/BIOPSY 02/28/2012 BOWEL SMALL BIOPSY ENDOSCOPIC performed by Lane Ryan MD at [facility] GI LAB AL ESOPHAGOGASTRODUODENOSCOPY TRANSORAL DIAGNOSTIC 02/28/2012 ESOPHAGOGASTRODUODENOSCOPY performed by Lane Ryan MD at [facility] GI LAB AL NDSC EVAL INTSTINAL POUCH DX W/COLLJ SPEC SPX 02/16/2012 POUCHOSCOPY performed by Louise Sotelo MD at [facility] GI LAB AL NDSC EVAL INTSTINAL POUCH DX W/COLLJ SPEC SPX N/A 08/15/2022 POUCHOSCOPY performed by Annette [facility] MD at [facility] AL SIGMOIDOSCOPY FLX DX W/COLLJ SPEC BR/WA IF PFRMD 02/16/2012 SIGMOIDOSCOPY FLEXIBLE performed by Louise Sotelo MD at [facility] GI [facility] AL SIGMOIDOSCOPY FLX DX W/COLLJ SPEC BR/WA IF PFRMD N/A 06/12/2020 CHECKOUT SIGMOIDOSCOPY FLEXIBLE performed by Annette Whitney MD at [facility] GI LAB Social History Tobacco Use Smoking Status Former Current packs/day: 0.00 Average packs/day: 0.5 packs/day for 10.0 years (5.0 ttl pk-yrs) Types: Cigarettes Start date: 06/09/2001 Quit date: 06/09/2011 Years since quittin.1 Smokeless Tobacco Never Tobacco Comments off & on Social History Substance and Sexual Activity Alcohol Use Yes Comment: occ Family History Problem Relation Name Age of Onset Heart Disease Father Hypertension Mother Healthy Sister Healthy Brother Colon Cancer Neg Hx Allergies Allergen Reactions Infliximab Rash Other reaction(s): Sneezing flushed face Current Facility-Administered Medications Medication Dose Route Frequency Provider Last Rate Last Admin lactated ringers infusion IV pre-proc continuous Jessica Bejarano MD 125 mL/hr at 08/06/24 0750 Restarted at 08/06/24 0751 OBJECTIVE: BP (!) 165/86 (BP Location: Right arm, Patient Position (BP): Sitting) Pulse 88 Temp 97.6 ??F (36.4 ??C) (Temporal) Resp 18 Ht 5' 9 (1.753 m) Wt 80.8 kg (178 lb 3.2 oz) SpO2 96% BMI 26.32 kg/m?? General: pleasant, laying in bed, no distress HEENT: conjunctivae clear Lungs: breathing comfortably Heart: regular rate and rhythm Abdomen: soft, non-tender, non-distended Extremities: no pedal edema Skin: no obvious rashes or lesions on visualized skin Neuro: alert, cooperative, no gross focal signs on exam ASA classification per anesthesia ASSESSMENT: 1.Pouchoscopy PLAN: - Indications for procedure as noted in HPI. - The patient was informed of the indications for the procedure, the risks/benefits and the alternatives, and agreed to proceed. In particular, the patient was informed of the risk of perforation/ (1:1000), medication side effect, infection, a missed lesion, or incomplete examination. In the case of dilatation, the patient was informed of the risk of perforation (1 to 5%). - Will proceed with the above mentioned procedure(s) as scheduled. Jessica Bejarano MD Gastroenterology [facility] documented in this encounter Procedure Notes * Jessica Bejarano MD - 08/06/2024 12:05 PM CDTAssociated Order(s): POUCHOSCOPY REPORT [facility] Endoscopy Patient Name: Edgardo Elkins Procedure Date: 08/06/2024 Date of : 1970 Attending MD: Jessica Bejarano MD, Procedure: Pouchoscopy Indications: History of total colectomy Providers: Jessica Bejarano MD Referring MD: Jasiel Freeman MD Medicines: Monitored Anesthesia Care Complications: No immediate complications. Procedure: Informed consent was obtained for the procedure, including moderate sedation after risks were discussed. Based on the pre-procedure assessment, including review of the patient's medical history, medications, allergies, and review of systems, the patient was deemed to be an appropriate candidate for sedation. A timeout was performed. Continuous ECG monitoring, pulse oximetry, blood pressure monitoring, and direct observation were performed. The was introduced through the anus and advanced to the ileoanal pouch and into the ari-terminal ileum. The procedure was performed without difficulty. The patient tolerated the procedure well. The quality of the bowel preparation was fair. Estimated Blood Loss: Estimated blood loss was minimal. Findings: Patient is status-post total colectomy with an ileal pouch-anal anastomosis. The perianal and digital rectal examinations were normal. Difficulty intubating pre-pouch ileum given looping and sharp turns, but there was evidence of inflammation in pre-pouch ileum with multiple erosions located in one area about 10cm into the pre-pouch ileum. Mild inflammation at the pouch inlet with erosions, overall significantly improved compared to prior. Pouch and cuff mucosa appeared normal. Multiple biopsies were obtained from the pre-pouch ileum, pouch and cuff with cold forceps for histology. The ileoanal pouch contained one pedunculated, non-bleeding polyp which appeared inflammatory in nature. The polyp was 8 mm in diameter. This was biopsied with a cold forceps for histology. The retroflexed view of the pouch was normal Impression: - Preparation of the colon was fair. - One polyp in the ileoanal pouch. Biopsied. - Erosions in pre-pouch ileum, normal appearing pouch and cuff except for some mild inflammation at the pouch inlet - Multiple biopsies were obtained from the pre-pouch ileum, pouch and cuff. Recommendation: - Discharge patient to home. - Continue skyrizi every 8 weeks for now. At next office visit we will discuss increasing to every 4 weeks - Follow-up with me 09/11 as scheduled - Follow-up pathology - Recommend half colon prep for next procedure given fair prep Jessica Bejarano MD 08/06/2024 8:22:40 AM This report has been signed electronically. Number of Addenda: [address]; [place] [address] * Gilma Calix RN - 07/16/2024 10:32 AM CDT Checkout Procedure Information Prep: Pouchoscopy prep- 1 day clears with 1 bottle mag citrate evening before procedure per [employer] [employer] Stanislaw Instructions: Email Blood Thinners: None Outpatient Candidate: Yes documented in this encounter OR Notes * Zarina-OP - Marilynn Pate RN - 08/06/2024 7:25 AM CDT Images from the original note were not included. [facility] ANES Routine Pre-Anesthesia Protocol for GI Lab Procedures [facility] Approved by: [facility]-Medical Executive Committee Approval Date: 12/07/2023 ORDERS ARE ENTERED ???PER PROTOCOL?? Enter the protocol in the patient???s electronic health record using Intr[employer]phrase: .anestprotocolgilab Nursing Orders: Monitoring Obtain and record vital signs on admission to prep Continuous vital signs (Non-invasive blood pressure, pulse [...] appropriate, may confirm POC with: Nursing Only [id number] (this lab can be obtained at no cost to the patient when confirming a critical high or Critical low POC glucose. See hypoglycemia protocol for additional orders if needed: [facility] ANES Adult Perianesthesia HYPOglycemia Protocol Notify any [...] unable to obtain urine, may obtain serum [id number]) All patients with potential for childbearing (menarche [...] RN may change to NS at 10ml/hr * Zarina-OP - Gilma Calix RN - 07/16/2024 10:12 AM CDT Images from the original note were not included. [facility] Routine Pre-Anesthesia Protocol for GI Lab Procedures [facility] Approved by: [facility] [place]-Medical Executive Committee Approval Date: 12/07/2023 ORDERS ARE ENTERED ???PER PROTOCOL?? Enter the protocol in the patient???s electronic health record using [employer]: .anestprotocolgilab Nursing Orders: Monitoring Obtain and record vital signs on admission to [facility] Continuous vital signs (Non-invasive blood pressure, pulse [...] appropriate, may confirm POC with: Nursing Only [id number] (this lab can be obtained at no cost to the patient when confirming a critical high or Critical low POC glucose. See hypoglycemia protocol for additional orders if needed: [facility] ANE Adult Perianesthesia HYPOglycemia Protocol Notify any provider [...] unable to obtain urine, may obtain serum [id number]) All patients with potential for childbearing (menarche [...] RN may change to NS at 10ml/hr * Zarina-OP - Nia Guidry RN - 07/12/2024 8:53 AM CDT Images from the original note were not included. documented in this encounter Plan of Treatment Upcoming Encounters Date Type Department Care Team (Late st Contact Info) Description 02/13/2025 10:30 AM CDT Office Visit [facility] [place] [address] [place] [address] Kitty Dover, MIRTA [address] [place] [address] documented as of this encounter Procedures Procedure Name Priority Date/Time Associated Diagnosis Comments POUCHOSCOPY REPORT 08/06/2024 12:05 PM CDT PATHOLOGY Pathology 08/06/2024 8:16 AM CDT Crohn's disease with fistula, unspecified gastrointestinal tract location AL NDSC EVAL INTSTINAL POUCH DX W/COLLJ SPEC SPX 08/06/2024 8:00 AM CDT Crohn's disease with fistula, unspecified gastrointestinal tract location Case Notes Mag citrate prep per Kavitha Dover PA- see Note in chart for clarification documented in this encounter Results * POUCHOSCOPY REPORT (08/06/2024 12:05 PM CDT) Narrative Procedure Note Jessica Bejarano MD - 08/06/2024 12:05 PM CDT [facility] Endoscopy Patient Name: Edgardo Elkins Procedure Date: 08/06/2024 Date of : 1970 Attending MD: Jessica Bejarano MD, Procedure: Pouchoscopy Indications: History of total colectomy Providers: Jessica Bejarano MD Referring MD: Jasiel Freeman MD Medicines: Monitored Anesthesia Care Complications: No immediate complications. Procedure: Informed consent was obtained for the procedure, including moderate sedation after risks were discussed. Based on the pre-procedure assessment, including review of the patient's medical history, medications, allergies, and review of systems, the patient was deemed to be an appropriate candidate for sedation. A timeout was performed. Continuous ECG monitoring, pulse oximetry, blood pressure monitoring, and direct observation were performed. The was introduced through the anus and advanced to the ileoanal pouch and into the ari-terminal ileum. The procedure was performed without difficulty. The patient tolerated the procedure well. The quality of the bowel preparation was fair. Estimated Blood Loss: Estimated blood loss was minimal. Findings: Patient is status-post total colectomy with an ileal pouch-anal anastomosis. The perianal and digital rectal examinations were normal. Difficulty intubating pre-pouch ileum given looping and sharp turns, but there was evidence of inflammation in pre-pouch ileum with multiple erosions located in one area about 10cm into the pre-pouch ileum. Mild inflammation at the pouch inlet with erosions, overall significantly improved compared to prior. Pouch and cuff mucosa appeared normal. Multiple biopsies were obtained from the pre-pouch ileum, pouch and cuff with cold forceps for histology. The ileoanal pouch contained one pedunculated, non-bleeding polyp which appeared inflammatory in nature. The polyp was 8 mm in diameter. This was biopsied with a cold forceps for histology. The retroflexed view of the pouch was normal Impression: - Preparation of the colon was fair. - One polyp in the ileoanal pouch. Biopsied. - Erosions in pre-pouch ileum, normal appearing pouch and cuff except for some mild inflammation at the pouch inlet - Multiple biopsies were obtained from the pre-pouch ileum, pouch and cuff. Recommendation: - Discharge patient to home. - Continue skyrizi every 8 weeks for now. At next office visit we will discuss increasing to every 4 weeks - Follow-up with fl 09/11 as scheduled - Follow-up pathology - Recommend half colon prep for next procedure given fair prep Jessica Bejarano MD 08/06/2024 8:22:40 AM This report has been signed electronically. Number of Addenda: [address]; [place] [address] Jessica Bejarano MD GI PROCEDURE [facility] * PATHOLOGY (08/06/2024 8:16 AM CDT) CASE REPORT Surgical Pathology Report ? Case: [id number] ? Authorizing Provider: ??Jessica Bejarano MD ?? Collected: ? 08/06/2024 08:16 AM ? Ordering Location: ? [facility] [address] ??Received: ?08/06/2024 10:00 AM ? Pathologist: ? Rosalinda Leyva MD ? Specimens: ?? A) - Small Intestine, pouch bx ? B) - Colon, cuff bx ? C) - Colon, pouch polyp ? D) - Small Intestine, pre-pouch ileum bx ? 4 5:11 PM [facility] FINAL DIAGNOSIS Small intestine, pouch, biopsy: - Active enteritis, mild - No granulomas or dysplasia identified Colon, cuff, biopsy: - Active enteritis, moderate - No granulomas or dysplasia identified Colon, pouch, polyp, biopsy: - Active enteritis, severe, with ulceration - No granulomas or dysplasia identified Small intestine, prepouch, ileum, biopsy: - Active enteritis, moderate - No granulomas or dysplasia identified 4 5:11 PM [facility] S DESCRIPTION The specimens are received in four containers each labeled Edgardo Elkins . Received in the first container additionally labeled small intestine pouch biopsy are 3 pieces of pink-newman tissue ranging from 0.2 to 0.3 cm in greatest dimension. All are submitted in cassette A1. Received in the second container additionally labeled colon cuff biopsy are 3 pieces of pink-newman tissue ranging from 0.2 to 0.3 cm in greatest dimension. All are submitted in cassette B1. Received in the third container additionally labeled colon pouch polyp is 1 piece of pink-newman tissue measuring 0.3 x 0.2 x 0.2 cm. It is entirely submitted in cassette C1. Received in the fourth container additionally labeled small intestine, prepouch ileum biopsy are 3 pieces of pink-newman tissue ranging from 0.1 to 0.3 cm in greatest dimension. All are submitted in cassette D1. [facility] 4 5:11 PM [facility] MICROSCOPIC DESCRIPTION The slides are labeled [id number] and Edgardo Elkins. Sections from the small intestine pouch biopsy show fragments of small intestinal mucosa with mild acute and chronic inflammation. There is no dysplasia or malignancy. Sections from the colon cuff biopsy show fragments of intestinal mucosa with moderate acute and chronic inflammation without dysplasia or malignancy. Sections from the colon pouch polyp show fragments of superficial benign mucosa and severe acute inflammation and ulceration. No dysplasia or malignancy is identified. The fragments are superficial and consist mainly of inflammation. The polyp is not identified. There is an ulcer with reactive glands with acute inflammation. The ulcer has granulation tissue. Pancytokeratin immunostain highlights the benign glands. CMV stain is negative. Sections from the small intestinal prepouch ileum biopsy show fragments of intestinal mucosa with moderate acute and chronic inflammation. There are no granulomas, dysplasia or malignancy. 4 5:11 PM [facility] OPERATIVE PROCEDURE 1: POUCHOSCOPY 4 5:11 PM [facility] CLINICAL INFORMATION A Inflammation. R/o dysplasia. Inflammation. R/o dysplasia. Crohn's disease with fistula, unspecified gastrointestinal tract location [K50.913] K50.913-Crohn's disease with fistula, unspecified gastrointestinal tract location 4 5:11 PM [facility] COMMENT Special stain, immunohistochemical, and/or in situ hybridization results are interpreted with controls that demonstrate appropriate staining reactions. Note on use of immunohistochemistry reagents and in situ hybridization probes: These tests were developed and their performance characteristics determined by [facility], Department of Laboratory Medicine. It has not [...] part or completely in the following laboratories: [facility], CLIA #[id number] [address] [place] [address] [id number] [address] [place] [address] [facility], [place] #[id number] [address] [place] [address] This report was created with the Loc[employer] voice-activated dictation system. Inherent to this system is the possibility of syntax, grammar, punctuation and other errors that could impact the interpretation of the report. If there are interpretative questions about aspects of this report, please contact the performing pathologist. 5:11 PM CDT [facility] Tissue (Small Intestine) Collection / Unknown 08/06/2024 8:16 AM CDT 08/06/2024 10:00 AM CDT Comment:Inflammation. R/o dy splasia. Tissue specimen (specimen) SPECIMEN FROM COLON / Unknown 08/06/2024 8:17 AM CDT 08/06/2024 10:00 AM CDT Comment:Inflammation. R/o dy splasia. Tissue specimen (specimen) SPECIMEN FROM COLON / Unknown 08/06/2024 8:17 AM CDT 08/06/2024 10:00 AM CDT Tissue specimen (specimen) (Small Intestine) 08/06/2024 8:18 AM CDT 08/06/2024 10:00 AM CDT Comment:Inflammation. R/o dy splasia. Jessica Bejarano MD PATHOLOGY/CYTOLOG Y ORDERABLES [facility]# [id number] [address] [place] [address] documented in this encounter Visit Diagnoses Diagnosis Crohn's disease with fistula, unspecified gastrointestinal tract location documented in this encounter Administered Medications Inactive Administered Medications - up to 3 most recent administrations Medication Order MAR Action Action Date Dose Rate Site lactated ringers infusion IV, at 125 mL/hr, PRE-PROCEDURE CONTINUOUS, Starting on Mon08/06/24 at 0730, Until Mon08/06/24 at 1103, Routine, Pre-Procedure Restarted 08/06/2024 7:51 AM CDT Continue from Pre-Op 08/06/2024 7:50 AM CDT 125 mL/hr New Bag 08/06/2024 7:35 AM CDT 125 mL/hr documented in this encounter Active and Recently Administered Medications Times are shown in CDT. Continuous Medication Order 08/04/2024 08/05/2024 08/06/2024 lactated ringers infusion IV, at 125 mL/hr, PRE-PROCEDURE CONTINUOUS, Starting on Mon08/06/24 at 0730, Until Mon08/06/24 at 1103, Routine, Pre-Procedure 0735 (New Bag - Prov ider: Marilynn Pate, JIE)0750 (Continue from Pre-Op - Provider: GEOFFREY Joseph)0750 (Paused - Provider: GEOFFREY Joseph - Comment: Switch to gravity)0751 (Restarted - Provider: GEOFFREY Joseph)0815 (Fluid Volume - Provider: GEOFFREY Joseph)0831 (Stopped - Provider: Parvin Kennedy RN) documented in this encounter Additional Health Concerns Assessment Noted Time PHQ-9 Depression Total Score: 2 12/08/19 23 11:00 AM BUSINESS SUPPORT MANAGER documented as of this encounter Care Teams Fabric Cutter Relationship Specialty Start Date End Date Jasiel Freeman MD [address] [place] [phone] PCP - General Family Practice 08/15/17 documented as of this encounter
--- OUTSIDE RECORDS SUMMARY | 2024-10-24 05:28 | XMS_ITS | Encounter Summary ---
Author Organization [facility] Address [address] [place] [address] Care Team Providers Care Foundation Drill Operator Name Role Phone Jasiel Freeman MD Primary Care Provider Reason for Visit * Auth/Cert Specialty Diagnoses / Procedures Referred By Lambert pizarro Referred To Contact Perioperative Diagnoses Ulcerative pancolitis with complication Procedures WA COLONOSCOPY FLX DX W/COLLJ SPEC WHEN PFRMD checkout COLONOSCOPY [facility] Endoscopy [address] [place] [address] Referral ID Status Reason Start Date Expiration Date Visits Re quested Visits Authorized [id number] 1 1 Encounter Details Date Type Department Care Team (Latest Contact Info) Description 08/15/2022 11:14 AM CDT - 08/15/2022 12:14 PM CDT Hospital Encounter [address] [place] [address] Annette Whitney MD 1 [facility] [place] [place] [phone] Ulcerative pancolitis with complication Discharge Disposition: Home or Self Care Social [...] by intraveous injection see administration instructions. Home LAW FIRM ADMINISTRATOR to administer over 30 minutes every 8 weeks. 300 mg 3 07/31/2019 11/14/2022 documented as of this encounter Progress Notes * Lisy Key, RN - 08/12/2022 3:09 PM CDT Routine Pre-Anesthesia Protocol for GI Lab Procedures [facility] Approved by: [facility] - Medical Executive Committee Approval Date: 01/06/2022 ORDERS ARE ENTERED ???PER PROTOCOL?? Enter the protocol in the patient???s electronic health record using [employer]: .anestprotocolgilab Nursing Orders: Monitoring Obtain and record vital signs on [facility] Continuous vital signs (Non-invasive blood [...] appropriate, may confirm POC with: Nursing Only [id number] (this lab can be obtained at no cost to the patient when confirming a critical high or Critical low POC glucose. See hypoglycemia protocol for additional orders if needed: STL ANES Adult Perianesthesia HYPOglycemia Protocol Notify any [...] unable to obtain urine, may obtain serum [id number]) All patients with potential for childbearing (menarche [...] 08/15/2022 11:55 AM CDTAssociated Order(s): POUCHOSCOPY REPORT [facility] [place] [facility] Patient Name: Edgardo Elkins Procedure Date: [...] Addenda: 0 Procedure Date: 08/15/2022 11:16:[id number] [address] * Lisy Key RN - 08/12/2022 3:09 PM CDT [facility] Nurse Assessment Patient: Edgardo Elkins : 1970 Endoscopist: Surgeon(s): Annette Whitney MD Upcoming Procedure: Procedure to be Performed: Procedure(s): checkout COLONOSCOPY Procedure Date/Time: 08/15/2022 at 1220 Diagnosis/Indication for procedure: Pre-Op Diagnosis Codes: * Ulcerative pancolitis with complication [K51.019] Location: [facility] Referring Physician: * No referring provider recorded for this case * Patient's BMI: Body mass index is 26.58 kg/m??. Is patient a candidate for offsite location? yes Medications Type of prep given: pouchoscopy prep Anticoagulants: no none Relevant prior procedure/pathology: Procedure: POUCHOSCOPY Physician: MARILY Date: 06/12/2020 Location: GI LAB Last Pathology: [...] 2001 HX HIP REPLACEMENT, TOTAL Left 10/08/2017 [place] COLONOSCOPY FLX DX W/COLLJ SPEC WHEN PFRMD 12/08/2009 COLONOSCOPY performed by LOUISE RIZO at [facility] GI LAB WA COLONOSCOPY FLX DX W/COLLJ SPEC WHEN PFRMD 06/09/2014 [address]ON[address] performed by Lane Ryan MD at [facility] GI LAB WA DILATION RECTAL STRICTURE W ANEST 06/12/2012 RECTAL STRICTURE DILATATION performed by Lane Ryan MD at [facility] GI LAB WA ENDOSCOPY UPPER SMALL INTESTINE 06/12/2012 SMALL BOWEL ENTEROSCOPY performed by Lane Ryan MD at [facility] GI LAB WA ENDOSCOPY UPPER SMALL INTESTINE N/A 08/24/2017 SMALL BOWEL ENTEROSCOPY performed by Lane Ryan MD at [facility] GI LAB WA ENDOSCOPY UPPER SMALL INTESTINE W/BIOPSY 02/28/2012 BOWEL SMALL BIOPSY ENDOSCOPIC performed by Lane Ryan MD at [facility] GI LAB WA ESOPHAGOGASTRODUODENOSCOPY TRANSORAL DIAGNOSTIC 02/28/2012 [address]EN[address] performed by Lane Ryan MD at [facility] GI LAB WA NDSC EVAL INTSTINAL POUCH DX W/COLLJ SPEC SPX 02/16/2012 POUCHOSCOPY performed by Louise Rizo MD at [facility] GI LAB WA SIGMOIDOSCOPY FLX DX W/COLLJ SPEC BR/WA IF PFRMD 02/16/2012 SIGMOIDOSCOPY FLEXIBLE performed by Louise Rizo MD at [facility] GI LAB WA SIGMOIDOSCOPY FLX DX W/COLLJ SPEC BR/WA IF PFRMD N/A 06/12/2020 CHECKOUT SIGMOIDOSCOPY FLEXIBLE performed by Annette Whitney MD at [facility] GI LAB Past Medical History: Past Medical [...] by intraveous injection see administration instructions. Home LAW FIRM ADMINISTRATOR to administer over 30 minutes every 8 weeks. (Patient taking differently: Inject 300 mg by intravenous injection see administration instructions. Home LAW FIRM ADMINISTRATOR to administer 300 mgvia IV over 30 minutes every 4 weeks.) 300 mg 3 TESTOSTERONE, BULK, MISC 1 mL by Misc.(Non-Drug; Combo Route) route. documented in this encounter Plan of Treatment Upcoming Encounters Date Type Department Care Team (Late st Contact Info) Description 02/13/2025 10:30 AM CDT Office Visit [facility] [place] [address] [facility] [address] [place] [address] Kitty Dover ANP [address] [facility] [address] [place] [address] documented as of this encounter Procedures Procedure Name Priority Date/Time Associated Diagnosis Comments WA NDSC EVAL INTSTINAL POUCH DX W/COLLJ SPEC SPX 08/15/2022 12:20 PM CDT Ulcerative pancolitis with complication Case Notes pouchoscopy POUCHOSCOPY REPORT 08/15/2022 11 :56 AM CDT PATHOLOGY Pathology 08/15/2022 11:45 AM CDT Ulcerative pancolitis with complication documented in this encounter Results * POUCHOSCOPY REPORT (08/15/2022 11:56 AM CDT) Narrative Procedure Note Annette Whitney MD - 08/15/2022 11:55 AM CDT [facility] Endoscopy Patient Name: Edgardo [...] Addenda: 0 Procedure Date: 08/15/2022 11:16:26 AM [address] [facility] [address] [place] [address] Annette Whitney MD GI PROCEDURE O RDERABLES * PATHOLOGY (08/15/2022 11:45 AM CDT) CASE REPORT Surgical Pathology Report ? Case: [id number] ? Authorizing Provider: ??Annette Whitney, ?? Collected: ? 08/15/2022 11:45 AM ? MD ? Ordering Location: ? [facility] Endoscopy ?? Received: ?08/15/2022 02:32 PM ? [facility] ? Pathologist: ? Girish Fagan, DO ? Specimens: ?? A) - Colon, proximal pouch bx. ? B) - Colon, rectal cuff bx. ? 8:27 AM [facility] FINAL DIAGNOSIS Proximal pouch , endoscopic biopsy: - Chronic active enteritis with mucosal ulceration (see comment). - No granulomas or dysplasia identified. Rectal cuff , endoscopic biopsy: - Chronic active enteritis, moderate. - No granulomas or dysplasia identified. 2 8:27 AM [facility] NOSIS COMMENT Pouchitis and pouch involvement by inflammatory bowel disease display a similar spectrum of histologic features, and the distinction between between the two cannot be made on the basis of histology alone. 8:27 AM [facility] GROSS DESCRIPTION The specimens are received [...] x 0.1 cm, entirely submitted in B1. ELJens/MM 8:27 AM [facility] MICROSCOPIC DESCRIPTION The slides are labeled [id number] and Edgardo Elkins. Sections of the proximal [...] well-formed granulomas are seen. 2 8:27 AM [facility] OPERATIVE PROCEDURE 1: POUCHOSCOPY 2 8:27 AM [facility] CLINICAL INFORMATION K51.019-Ulcerative pancolitis with complication 2 8:27 AM [facility] COMMENT Special stain, immunohistochemical, and/or in situ hybridization results are interpreted with controls that demonstrate appropriate staining reactions. Note on use of immunohistochemistry reagents and in situ hybridization probes: These tests were developed and their performance characteristics determined by [facility], Department of Laboratory Medicine. It has [...] part or completely in the following laboratories: [facility], CLIA #[id number] [address] [place] [address] [id number] [address] [place] [address] [facility]/[place], [place] #[id number] [address] [place] [address] This report was created with the [employer]-activated dictation system. Inherent to this system is the possibility of syntax, grammar, punctuation and other errors that could impact the interpretation of the report. If there are interpretative questions about aspects of this report, please contact the performing pathologist. 8:27 AM CDT [facility] Tissue SPECIMEN FROM COLON / Unknown Collection / Unknown 08/15/2022 11:45 AM CDT 08/15/2022 2:32 PM CDT Comment:Crohn's disease Tissue specimen (specimen) SPECIMEN FROM COLON / Unknown 08/15/2022 11:45 AM CDT 08/15/2022 2:32 PM CDT Comment:Crohn's disease Annette Whitney MD PATHOLOGY/CYTO LOGY ORDERABLES [facility] CLIA# [id number] [address] [place] [address] documented in this encounter Visit Diagnoses Diagnosis Ulcerative pancolitis with complication documented in this [...] 1127 (New Bag - Prov ider: Rajni Silverio RN)1130 (Continue from Pre-Op - Provider: GEOFFREY Phipps)1133 (Paused - Provider: GEOFFREY Phipps - Comment: Switch to gravity)1134 (Restarted - Provider: GEOFFREY Phipps)1147 (Fluid Volume - Provider: GEOFFREY Phipps)1205 (Removed - Provider: Tania Osborne RN) documented in this encounter Care Teams Foundation Drill Operator Relationship Specialty Start Date End Date Jasiel Freeman MD [address] [place] [phone] PCP - General Family Practice 08/15/17 documented as of this encounter
--- OUTSIDE RECORDS SUMMARY | 2024-10-24 05:28 | XMS_ITS | Encounter Summary ---
Author Organization [facility] Address [address] [place] [address] Care Team Providers Care Biotechnician Name Role Phone Jasiel Freeman MD Primary Care Provider Encounter Details Date Type Department Care Team (Late st Contact Info) Description 11/22/2023 External Device Data STL ABSTRACTION Provider, Abstract [...] Description 02/13/2025 10:30 AM CDT Office Visit [facility] [place] [address] [place] [address] Kitty Dover, MIRTA [address] [place] [address] documented as of this encounter Visit Diagnoses Not on filedocumented in this encounter Additional Health Concerns Assessment Noted Time PHQ-9 Depression Total Score: 2 12/08/19 23 11:00 AM OFFSET PRESS OPERATOR HELPER documented as of this encounter Care Teams Biotechnician Relationship Specialty Start Date End Date Jasiel Freeman MD [address] [place] [address] PCP - General Family Practice 08/15/17 documented as of this encounter
--- OUTSIDE RECORDS SUMMARY | 2024-10-24 05:28 | XMS_ITS | Encounter Summary ---
Author Organization [facility] Address [address] [place] [address] Care Team Providers Care Resident Service Coordinator Name Role Phone Jasiel Freeman MD Primary Care Provider [phone] Reason for Visit * Auth/Cert (Routine) Specialty Diagnoses / Procedures Referred By Lambert t Referred To Contact Perioperative Diagnoses Crohn's disease with fistula, unspecified gastrointestinal tract location Procedures CT NDSC EVAL INTSTINAL POUCH DX W/COLLJ SPEC SPX CHECKOUT POUCHOSCOPY Jessica Bejarano MD [address] [place] [phone] [facility] [address] [place] [phone] Referral ID Status Reason Start Date Expiration Date Visits Re quested Visits Authorized [id number] 1 1 Encounter Details Date Type Department Care Team (Late st Contact Info) Description 08/06/2024 8:00 AM CDT - 08/06/2024 8:40 AM CDT Surgery [facility] GI Lab [id number] [place] [address] Jessica Bejarano MD [address] [place] [phone] CHECKOUT POUCHOSCOPY Surgery Details Date/Time Status Location OR Service Patient Class Case Class Case Type Trauma Case? 08/06/2024 8:00 AM Posted [facility] GI LAB GI 01 Gastroenterology Outpatient Elective No Panel 1 Procedure LRB Anes Op Region Wound Class Comments CHECKOUT POUCHOSCOPY N/A General Anus Surgeon Surgeon Role Service Panel Jessica Bejarano MD Primary Gastroenterology 1 Case Notes Mag citrate prep per Kavitha COON- see Note in chart for clarification documented in this encounter Social History Tobacco [...] procedure, you will be notified by your Swap[employer] Account with the results. If you do not have a [employer]ap[employer] account, you will receive a letter in the mail. If you have not been notified within two weeks, please call the office. Please NEVER assume that your results are fine if you do not hear from me. It is always possible that results did not get relayed to my o ffice or were somehow overlooked. [facility] [address] [place] [address]. [address] [place] [address] Other important numbers to add to our contact info: After hours physician exchange: [phone] To schedule another procedure: Endoscopy Scheduling [phone] Thank you very much for choosing [facility] Gastroenterology. Jessica Bejarano MD [facility] Inflammatory Bowel Disease/Gastroenterology documented in this encounter [...] Bejarano MD - 08/06/2024 7:55 AM CDT [facility] Pre-Endoscopy History & Physical Date: 08/06/2024 Patient: Edgardo Elkins / 53 y.o. / male : 1970 CSN: [id number] Planned procedure: Pouchoscopy with possible biopsy/polypectomy Chief [...] 2001 HX HIP REPLACEMENT, TOTAL Left 10/08/2017 CT COLONOSCOPY FLX DX W/COLLJ SPEC WHEN PFRMD 12/08/2009 COLONOSCOPY performed by LOUISE SOTELO at [facility] GI LAB CT COLONOSCOPY FLX DX W/COLLJ SPEC WHEN PFRMD 06/09/2014 COLONOSCOPY performed by Lane Ryan MD at [facility] GI LAB CT DILAT RCT STRIX SPX UNDER ANES OTH/THN LOCAL 06/12/2012 RECTAL STRICTURE DILATATION performed by Lane Ryan MD at [facility] GI LAB CT ENDOSCOPY UPPER SMALL INTESTINE 06/12/2012 SMALL BOWEL ENTEROSCOPY performed by Lane Ryan MD at [facility] GI LAB CT ENDOSCOPY UPPER SMALL INTESTINE N/A 08/24/2017 SMALL BOWEL ENTEROSCOPY performed by Lane Ryan MD at [facility] GI LAB CT ENDOSCOPY UPPER SMALL INTESTINE W/BIOPSY 02/28/2012 BOWEL SMALL BIOPSY ENDOSCOPIC performed by Lane Ryan MD at [facility] GI LAB CT ESOPHAGOGASTRODUODENOSCOPY TRANSORAL DIAGNOSTIC 02/28/2012 ESOPHAGOGASTRODUODENOSCOPY performed by Lane Ryan MD at [facility] GI LAB CT NDSC EVAL INTSTINAL POUCH DX W/COLLJ SPEC SPX 02/16/2012 POUCHOSCOPY performed by Louise Sotelo MD at [facility] GI LAB CT NDSC EVAL INTSTINAL POUCH DX W/COLLJ SPEC SPX N/A 08/15/2022 POUCHOSCOPY performed by Annette Whitney MD at [facility] CT SIGMOIDOSCOPY FLX DX W/COLLJ SPEC BR/WA IF PFRMD 02/16/2012 SIGMOIDOSCOPY FLEXIBLE performed by Louise Sotelo MD at [facility] GI LAB CT SIGMOIDOSCOPY FLX DX W/COLLJ SPEC BR/WA IF PFRMD N/A 06/12/2020 CHECKOUT SIGMOIDOSCOPY FLEXIBLE performed by Annette Whitney MD at [facility] GI LAB Social History Tobacco Use Smoking [...] procedure(s) as scheduled. Jessica Bejarano MD Gastroenterology [facility] documented in this encounter Procedure Notes * Jessica Bejarano MD - 08/06/2024 12:05 PM CDTAssociated Order(s): POUCHOSCOPY REPORT [facility] Endoscopy Patient Name: Edgardo Elkins Procedure Date: [...] to every 4 weeks - Follow-up with mo 09/11 as scheduled - Follow-up pathology - Recommend half colon prep for next procedure given fair prep Jessica Bejarano MD 08/06/2024 8:22:40 AM This report has been signed electronically. Number of Addenda: [phone] ; [place] [address] * Gilma Calix RN - 07/16/2024 10:32 AM CDT Checkout Procedure Information Prep: Pouchoscopy prep- 1 day clears with 1 bottle mag citrate evening before procedure per ONESIMO Dover Instructions: Email Blood Thinners: None Outpatient Candidate: Yes documented in this encounter OR Notes * Zarina-OP - Marilynn Pate RN - 08/06/2024 7:25 AM CDT Images from the original note were not included. ST[facility] ANES Routine Pre-Anesthesia Protocol for GI Lab Procedures [facility] Approved by: [facility]-Medical Executive Committee Approval Date: 12/07/2023 ORDERS ARE ENTERED ???PER PROTOCOL?? Enter the protocol in the patient???s electronic health record using [employer]: .anestprotocolgilab Nursing Orders: Monitoring Obtain and record vital signs on admission to [facility] Continuous vital signs (Non-invasive blood [...] appropriate, may confirm POC with: Nursing Only [id number] (this lab can be obtained at no [...] unable to obtain urine, may obtain serum [id number]) All patients with potential for childbearing (menarche [...] from the original note were not included. [facility] Routine Pre-Anesthesia Protocol for GI Lab Procedures [facility] Approved by: [facility]-Medical Executive Committee Approval Date: 12/07/2023 ORDERS ARE ENTERED ???PER PROTOCOL?? Enter the protocol in the patient???s electronic health record using [employer]: .anestprotocolgilab Nursing Orders: Monitoring Obtain and record vital signs on admission to [facility] Continuous vital signs (Non-invasive blood [...] appropriate, may confirm POC with: Nursing Only [id number] (this lab can be obtained at no cost to the patient when confirming a critical high or Critical low POC glucose. See hypoglycemia protocol for additional orders if needed: [facility] Adult Perianesthesia HYPOglycemia Protocol Notify any provider [...] unable to obtain urine, may obtain serum [id number]) All patients with potential for childbearing (menarche [...] Description 02/13/2025 10:30 AM CDT Office Visit [facility] IBD and Gastroenterology [facility] [place] [address] [facility] [address] [place] [address] Kitty Dover, [facility] [address] [facility] [address] [place] [address] documented as of this encounter Procedures Procedure Name Priority Date/Time Associated Diagnosis Comments POUCHOSCOPY REPORT 08/06/2024 12:05 PM CDT PATHOLOGY Pathology 08/06/2024 8:16 AM CDT Crohn's disease with fistula, unspecified gastrointestinal tract location CT NDSC EVAL INTSTINAL POUCH DX W/COLLJ SPEC SPX 08/06/2024 8:00 AM CDT Crohn's disease with fistula, unspecified gastrointestinal tract location Case Notes Mag citrate prep per Kavitha COON- see Note in chart for clarification documented in this encounter Results * POUCHOSCOPY REPORT (08/06/2024 12:05 PM CDT) Narrative Procedure Note Jessica Bejarano MD - 08/06/2024 12:05 PM CDT [facility] Endoscopy Patient Name: Edgardo Elkins Procedure Date: [...] electronically. Number of Addenda: [address]; [place] [address] Jessica Bejarano MD GI PROCEDURE ORDE RABLES * PATHOLOGY (08/06/2024 8:16 AM CDT) CASE REPORT Surgical Pathology Report ? Case: [id number] ? Authorizing Provider: ??Jessica Bejarano MD ?? Collected: ? 08/06/2024 08:16 AM ? Ordering Location: ? [facility] GI Lab [address] ??Received: ?08/06/2024 10:00 AM ? Pathologist: ? Rosalinda Leyva MD ? Specimens: ?? A) - Small Intestine, pouch bx ? B) - Colon, cuff bx ? C) - Colon, pouch polyp ? D) - Small Intestine, pre-pouch ileum bx ? 4 5:11 PM [facility] FINAL DIAGNOSIS Small intestine, pouch, biopsy: - Active enteritis, mild - No granulomas or dysplasia identified Colon, cuff, biopsy: - Active enteritis, moderate - No granulomas or dysplasia identified Colon, pouch, polyp, biopsy: - Active enteritis, severe, with ulceration - No granulomas or dysplasia identified Small intestine, prepouch, ileum, biopsy: - Active enteritis, moderate - No granulomas or dysplasia identified 4 5:11 PM [facility] S DESCRIPTION The specimens are received in [...] dimension. All are submitted in cassette D1. EL 4 5:11 PM [facility] MICROSCOPIC DESCRIPTION The slides are labeled [id number] and Edgardo Elkins. Sections from the small [...] granulomas, dysplasia or malignancy. 4 5:11 PM [facility] OPERATIVE PROCEDURE 1: POUCHOSCOPY 4 5:11 PM [facility] CLINICAL INFORMATION A Inflammation. R/o dysplasia. Inflammation. R/o dysplasia. Crohn's disease with fistula, unspecified gastrointestinal tract location [K50.913] K50.913-Crohn's disease with fistula, unspecified gastrointestinal tract location 4 5:11 PM [facility] COMMENT Special stain, immunohistochemical, and/or in situ hybridization results are interpreted with controls that demonstrate appropriate staining reactions. Note on use of immunohistochemistry reagents and in situ hybridization probes: These tests were developed and their performance characteristics determined by [facility], Department of Laboratory Medicine. It has not [...] part or completely in the following laboratories: [facility], [facility] #[id number] [facility] [place] [address] [facility], [place] #[id number] [address] [place] [address] [facility]/[place], [place] #[id number] [address] [facility] [place] [address] This report was created with the [employer] voice-activated dictation system. Inherent to this system is the possibility of syntax, grammar, punctuation and other errors that could impact the interpretation of the report. If there are interpretative questions about aspects of this report, please contact the performing pathologist. 5:11 PM CDT [facility] Tissue (Small Intestine) Collection / Unknown 08/06/2024 [...] splasia. Jessica Bejarano MD PATHOLOGY/CYTOLOG Y [facility]ABLES [id number] [address] [place] [address] documented in this encounter Visit Diagnoses Diagnosis Crohn's disease with fistula, unspecified gastrointestinal tract location Crohn's disease with fistula, unspecified gastrointestinal tract [...] at 125 mL/hr, PRE-PROCEDURE CONTINUOUS, Starting on 08/06/24 at 0730, Until 08/06/24 at 1103, Routine, Pre-Procedure 0735 (New Bag - Prov ider: Marilynn Pate RN)0750 (Continue from Pre-Op - Provider: GEOFFREY Joseph)0750 (Paused - Provider: GEOFFREY Joseph - Comment: Switch to gravity)0751 (Restarted - Provider: GEOFFREY Joseph)0815 (Fluid Volume - Provider: GEOFFREY Joseph)0831 (Stopped - Provider: Parvin Kennedy RN) documented in this encounter Additional Health Concerns Assessment Noted Time PHQ-9 Depression Total Score: 2 12/08/19 23 11:00 AM MEDICAL OFFICE SUPERVISOR documented as of this encounter Care Teams Resident Service Coordinator Relationship Specialty Start Date End Date Jasiel [facility] MD [address] [place] [phone] PCP - General Family Practice 08/15/17 documented as of this encounter
--- OUTSIDE RECORDS SUMMARY | 2024-10-24 05:28 | XMS_ITS | Encounter Summary ---
Author Organization [facility] Address [address] [place] [address] Care Team Providers Care Theater Technician Name Role Phone Jasiel Freeman MD Primary Care Provider Reason for Visit * Reason Onset Date Comments Home Visit 10/18/2022 Encounter Details Date Type Department Care Team (Late st Contact Info) Description 10/18/2022 Patient Outreach [facility] Specialty and Home Infusion - [address] [place] [address] Irina Wyatt, RN Home Visit [...] Sign Reading Time Taken Comments Blood Pressure 130/85 10/18/2022 2:50 PM SURGERY AIDE Pulse 94 10/18/2022 2:50 PM SURGERY AIDE Temperature 37.6 ??C (99.6 ??F) 10/18/2022 2:10 PM CS T Respiratory Rate 16 10/18/2022 2:50 PM SURGERY AIDE Oxygen Saturation 96% 10/18/2022 2:10 PM SURGERY AIDE Inhaled Oxygen Concentration - - Weight - - Height - - Body Mass Index - - documented in this encounter Miscellaneous Notes * Telephone Encounter - Irina Wyatt RN - 10/18/2022 9:02 PM CST Images from the original note were not included. [facility] Home Infusion NURSING follow up Leonidas Elkins 1970 [address] [facility] [address] Provider - Irina Wyatt RN 10/18/2022 Visit start 1400 Visit end 1500 Contact numbers provided including after hours numbers [...] yes Pt informed on importance of notifying [facility] immediately if any unexpected insurance changes occur.yes No problem observed with learning needs - No cultural, mormonism, or language barriers to learning Patient and [...] normal mood and affect. Pain: 0 1. shelter assessment and implementation of infusion therapy. Teaching [...] reactions. Patient knows how to reorder medications. [facility] will [...] nursing visit in approximately 4 weeks for Entyvio infusion ERY AIDE documented in this encounter Plan of Treatment Upcoming Encounters Date Type Department Care Team (Late st Contact Info) Description 02/13/2025 10:30 AM CDT Office Visit [facility] IBD and Gastroenterology Center [place] [address] [place] [phone] Kitty Dover ANP [address] [place] [address] documented as of this encounter Visit Diagnoses Not on filedocumented in this encounter Care Teams Theater Technician Relationship Specialty Start Date End Date Jasiel Freeman MD [address] [place] [phone] PCP - General Family Practice 08/15/17 documented as of this encounter
--- OUTSIDE RECORDS SUMMARY | 2024-10-24 05:28 | XMS_ITS | Encounter Summary ---
Author Organization [facility] Address [address] [place] [address] Care Team Providers Care Machine Heel Builder Name Role Phone Jasiel Freeman MD Primary Care Provider [phone] Reason for Visit * Reason Onset Date Comments Home Visit 12/26/2022 Encounter Details Date Type Department Care Team (Late st Contact Info) Description 12/26/2022 Patient Outreach [facility] Specialty and Home Infusion - [address] [place] [address] Irina Wyatt, RN Home Visit [...] Coronavirus/COVID-19? No / Unsure 12/15/2022 2:36 PM ACID CRANE OPERATOR documented as of this encounter Last Filed Vital Signs Vital Sign Reading Time Taken Comments Blood Pressure 125/72 12/26/2022 2:00 PM ACID CRANE OPERATOR Pulse 80 12/26/2022 2:00 PM ACID CRANE OPERATOR Temperature 36.8 ??C (98.2 ??F) 12/26/2022 1:10 PM CS T Respiratory Rate 16 12/26/2022 2:00 PM ACID CRANE OPERATOR Oxygen Saturation 95% 12/26/2022 2:00 PM ACID CRANE OPERATOR Inhaled Oxygen Concentration - - Weight - - Height - - Body Mass Index - - documented in this encounter Miscellaneous Notes * Telephone Encounter - Irina Wyatt RN - 12/26/2022 7:11 PM CST Images from the original note were not included. [facility] Infusion Pharmacy Home Infusion NURSING [facility] Edgardo Georgette Elkins [address] [facility] [address] Irina Wyatt RN 12/26/22 Visit start 1300 Visit end 1417 Contact numbers provided including after hours numbers [...] no insurance changes since last dose given. Patient states that no anticipated insurance or job changes before next infusion. Pt informed on importance of notifying [facility] immediately if any unexpected insurance changes occur. No problem observed with learning needs - No cultural, scientologist, or language barriers to learning Patient and [...] dry. Psychiatric: normal mood and affect. Pain: if yes, details of pain will be documented on flowsheet: No FRAT (Fall Risk Assessment Tool) To be utilized at initial visit and if a change in condition Age 65+ No Diagnosis (3 or more co-existing) Yes Prior history of falls within 3 months No Incontinence ?? Visual Impairment No Impaired Functional Mobility No Environmental Hazards No Poly Pharmacy (4 or more prescriptions) Yes Pain affecting level of function No Cognitive impairment No One Point per positive answer above Total score = 2 A score of 4 or more is considered at risk for falling or high fall risk. Educate patient and CG onfall risk potential, methods to prevent falls in the home, and report fall risk to PCP. 1. MCC assessment and implementation of infusion therapy. Teaching of patient/caregiverrole in infusion therapy. Goal : Infusion therapy will be delivered per physicians orders. Infusion access will remain patent. Patient and caregiver will demonstrate an understanding of teaching and learning goals related to infusion therapy. Intervention : 24 gauge PIV placed to left fa without difficulty. Flushed PIV with 10 ml NS easily with positive blood return. Withdrew 1 vial Skyrizi 600 mg and added to 250 ml ns. Filter flushed with ns. Tubing primed with drug and connected to filtered add on. Base line vital signs checked. Infusion completed in 1 hour. 30 ml ns used to flush remainder of Skyrizi thru line. PIV DC'd, bandaid applied. 2. Management of home medication. Goal: Patient/caregiver will verbalized understanding of medication regime. Intervention: Patient manages all medications except Skyrizi. Patient takes medication as ordered, knows purpose, basic side effects, and adverse reactions. Patient knows how to reorder medications. [facility] Pharmacy will [...] in approximately 4 weeks for Skyrizi infusion CRANE OPERATOR documented in this encounter Plan of Treatment Upcoming Encounters Date Type Department Care Team (Late st Contact Info) Description 02/13/2025 10:30 AM CDT Office Visit [facility] IBD and Gastroenterology Center [place] [address] [place] [address] Kitty Dover [facility] [address] [place] [address] [place] [address] documented as of this encounter Visit Diagnoses Not on filedocumented in this encounter Additional Health Concerns Assessment Noted Time PHQ-9 Depression Total Score: 2 12/08/19 23 11:00 AM ACID CRANE OPERATOR documented as of this encounter Care Teams Machine Heel Builder Relationship Specialty Start Date End Date Jasiel [facility] MD [address] [place] [phone] PCP - General Family Practice 08/15/17 documented as of this encounter
--- OUTSIDE RECORDS SUMMARY | 2024-10-24 05:28 | XMS_ITS | Encounter Summary ---
Author Organization [facility] Address [address] [place] [address] Care Team Providers Care Automation Tender Name Role Phone Jasiel Freeman MD Primary Care Provider Encounter Details Date Type Department Care Team (Late st Contact Info) Description 07/08/2022 Specialty Pharmacy [facility] Specialty and Home Infusion - [address] [place] [address] Belen Matt PHARMACIST Social History [...] Progress Notes * Belen Matt PHARMACIST - 07/08/2022 3:34 PM CDT [facility] Specialty & Home Infusion Patient Name: Edgardo Elkins Home Infusion Orders Medication: Entyvio 300 mg IV every 4 weeks Pre-infusion medication(s): Tylenol 1000 mg, Claritin 10 mg oral tablets (provided by patient if heshould need them) Treating Diagnosis: Ulcerative colitis Method of administration: IV infusion Equipment: n/a Prescriber(s): Annette Whitney MD Therapy Start Date: 08/08/2019 Anticipated Therapy End Date: Ongoing Notes: Vascular Access Device (VAD) Orders Type of VAD: PIV NS 10 mL: 10 mL before and after each dose and as needed for lab draws/line complications Pharmacy to dispense flushes, catheter supplies and all medically necessary infusion supplies untilcatheter is removed. Lab orders: No labs needed Nursing Provided by [facility] Specialty and Home Infusion [facility] Therapy Specific Entyvio (vedolizumab) The most common infusion reactions of Entyvio include: Common cold Headache Joint pain Nausea Fever Infections of the nose and throat Tiredness Cough Bronchitis Flu Back pain Rash Itching Sinus infection Throat pain Pain in extremities Note: EMBEDDED SOFTWARE DESIGN ENGINEER to observe patient during infusion and monitor [...] last dispense? No, last negative TB test 07/29/21 Note: Pharmacy Information Adherence issues (reported or suspected)?: [...] No Patient requires delivery to cover through 07/11/22 Pharmacy to send Entyvio + IV supplies Permission to leave delivered package? Yes Delivery Instructions: deliver 07/08/22 via dye house vat worker Note: General Information for this assessment provided by Epic Record HIPAA contact identified: Yes Note: ???Welcome Packet?? been provided to the patient Yes Note: Provided with initial delivery / via [facility] Additional Notes Pharmacy communicated/coordinated with MD core stacker? Yes Follow up notes for next encounter? [...] of complications Prevention of adverse drug events documented in this encounter Plan of Treatment Upcoming Encounters Date Type Department Care Team (Late st Contact Info) Description 02/13/2025 10:30 AM CDT Office Visit [facility] IBD and Gastroenterology Center [place] [address] [place] [address] Kitty Dover ANP [address] [place] [address] documented as of this encounter Visit Diagnoses Not on filedocumented in this encounter Care Teams Automation Tender Relationship Specialty Start Date End Date Jasiel Freeman MD [address] [place] [phone] PCP - General Family Practice 08/15/17 documented as of this encounter
--- OUTSIDE RECORDS SUMMARY | 2024-10-24 05:28 | XMS_ITS | Encounter Summary ---
Author Organization [facility] Address [address] [place] [address] Care Team Providers Care Logging Truck Driver Name Role Phone Jasiel Freeman MD Primary Care Provider Reason for Visit * Auth/Cert Specialty Diagnoses / Procedures Referred By Lambert pizarro Referred To Contact Perioperative Diagnoses Ulcerative pancolitis with complication Procedures OR COLONOSCOPY FLX DX W/COLLJ SPEC WHEN PFRMD checkout COLONOSCOPY [address] [address] Referral ID Status Reason Start Date Expiration Date Visits Re quested Visits Authorized [id number] 1 1 Encounter Details Date Type Department Care Team (Late st Contact Info) Description 08/15/2022 11:30 AM CDT Anesthesia Event [address] [place] [address] Estella Payne MD [address] [place] [address] Anesthesia Record Procedure Summary Procedure Name Responsible Anesthesiologist Anesthesia Start Time Anesthesia Stop Time POUCHOSCOPY (Anus) Estella Payne MD 08/15/22 113 0 08/15/22 1150 Events Date Time Event Comment 08/15/2022 1117 AN Equip Check Anesthesia eq uipment and materials checked in accordance with local policy. 1127 1130 An Start 1130 An Start Data 1130 In Room This event disp lays the In Room time documented in the Surgical Log. Deleting this event will not remove it from the log but will remove it from the Grid and Graph timeline. 1133 Pre-Induction Immediate pre- induction anesthetic assessment performed. Vital signs as noted on graphic. 1134 An Induction 1135 Procedure Start This event d isplays the Procedure Start time documented in the Surgical Log. Deleting this event will not remove it from the log but will remove it from the Grid and Graph timeline. 1135 Anesthesia Ready 1144 Procedure Stop This event di splays the Procedure Stop time documented in the Surgical Log. Deleting this event will not remove it from the log but will remove it from the Grid and Graph timeline. 1145 an stop data 1149 Out of Room This event disp lays the Out of Room time documented in the Surgical Log. Deleting this event will not remove it from the log but will remove it from the Grid and Graph timeline. 1150 An Stop 1150 Hand-off to Receiving Clinic marline Post-Anesthetic transfer of care report elements to appropriate post-anesthesia recovery environment completed in accordance with procedure. BP: 105/60 (08/15/22 1150) Temp: 36.4 ??C (08/15/22 1150) Resp: 18 (08/15/22 1150) SpO2: 97 % (08/15/22 1150) Pulse: 79 (08/15/22 1150) Heart Rate: Meds Name Total propofol (DIPRIVAN) 10??mg/mL injection 200 mg lidocaine (XYLOCAINE) 2% injection 60 mg lactated ringers infusion 400 mL * Agents Name O2 * Blood No blood administrations on file. Lines, Drains, and Airways Type Details Placement Removal OB Wound 02/29/12; 1445; Yes; 1; Left:; gluteal; ulceration, fissure 02/29/12 1445 by Janice Crow, RN Supraglottic Airway Type: nasal cannula; Confirmation: end tidal CO2, satisfactory chest rise 08/15/22 1116 by Ilya Victor AA-C 08/15/22 1158 by Tania Osborne RN Peripheral IV Pre-Hospital Start: No; Orientation: Left; Location: Hand; Device: Angiocath; Gauge: 20 gauge; Needle Length: 1 in length; Insertion Attempts: 1 (sy); Patient Tolerance: tolerated well 08/15/22 1126 by Rajni Silverio RN 08/15/22 1158 by Tania Osborne RN documented in this encounter Social History Tobacco [...] AM CDT documented as of this encounter OR Notes * Anesthesia Postprocedure Evaluation - Estella Payne MD - 08/15/2022 12:06 PM CDT Post Anesthesia Evaluation Vitals: Vitals Value Taken Time BP 133/91 08/15/22 1205 Temp 36.4 ??C 08/15/22 1150 Resp 15 08/15/22 1205 SpO2 96 % 08/15/22 1205 Pulse 76 08/15/22 1205 Heart Rate Pain Rating: Anesthesia Post Evaluation Patient location during evaluation: PACU Patient participation: patient was able to participate in the post op evaluation Level of consciousness: 0 = alert, responsive, answers simple questions appropriately, able to perform simple tasks Pain management: adequate Airway patency: patent Nausea or Vomiting: none Cardiovascular status: regular rate and rhythm Respiratory status: no respiratory symptoms Hydration status: well hydrated No notable events documented. Rere Payne MD * Anesthesia Postprocedure Evaluation - Ilya Victor AA-C - 08/15/2022 11:51 AM CDT Post Anesthesia Evaluation Vitals: Vitals Value Taken Time BP 105/60 08/15/22 1150 Temp 36.4 ??C 08/15/22 1150 Resp 18 08/15/22 1150 SpO2 97 % 08/15/22 1150 Pulse 79 08/15/22 1150 Heart Rate Pain Rating: Anesthesia Post Evaluation Patient participation: patient was able to participate in the post op evaluation Level of consciousness: 0 = alert, responsive, answers simple questions appropriately, able to perform simple tasks Pain management: adequate Airway patency: patent Nausea or Vomiting: none Cardiovascular status: regular rate and rhythm Respiratory status: no respiratory symptoms Hydration status: well hydrated No notable events documented. GEOFFREY Quezada * Anesthesia Handoff - Ilya Victor AA-C - 08/15/2022 11:50 AM CDT Post-Anesthetic transfer of care report elements to appropriate post-anesthesia recovery environment completed in accordance with procedure. I completed my handoff to the receiving nurse during which we: 1. Identified the patient 2. Identified the responsible provider 3. Reviewed the pertinent medical history 4. Discussed the surgical course 5. Reviewed intra-op anesthesia management and issues during anesthesia 6. Set expectations for post-procedure period 7. Orders as necessary and appropriate for continuation of care are present in Epic. 8. Allowed opportunity for questions and acknowledgement of understanding. Vital Signs: BP: 105/60 (08/15/2022 11:50 AM) Pulse: 79 (08/15/2022 11:50 AM) Temp: 36.4 ??C (08/15/2022 11:50 AM) Resp: 18 (08/15/2022 11:50 AM) SpO2: 97 % (08/15/2022 11:50 AM) 11:51 AM GEOFFREY Quezada * Anesthesia Preprocedure Evaluation - Estella Payne MD - 08/15/2022 11:02 AM CDT Relevant Problems RENAL (+) JORGE (acute kidney injury) Anesthesia Evaluation Patient summary reviewed and Nursing notes reviewed Airway Mallampati: II TM distance: >3 FB Neck ROM: full Dental - normal exam Pulmonary - normal exam breath sounds clear to auscultation (+) asthma, ROS comment: Denies SOB, URI, sleep apnea Cardiovascular - normal exam Exercise tolerance: good Rhythm: regular Rate: normal ROS comment: Denies CP, PA, dysrhythmias Neuro/Psych GI/Hepatic/Renal Comments: Ulcerative colitis s/p colectomy with ileo pouch Denies GERD Endo/Other Abdominal Anesthesia History Comments: No history of anesthetic complications.. Anesthesia Plan ASA Final: 2 MAC Intravenous induction Mask airway maintenance NPO status > 6 hours Anesthetic plan and risks discussed with Patient. Plan discussed with Surgeon, Other and Anesthesiologist. Smoking Compliance Patient did not smoke on day of surgery documented in this encounter Plan of Treatment Upcoming Encounters Date Type Department Care Team (Late st Contact Info) Description 02/13/2025 10:30 AM CDT Office Visit [facility] IBD and Gastroenterology [facility] [place] [address] [facility] [address] [place] [address] Kitty Dover, MIRTA [address] [place] [address] documented as of this encounter [...] Bag 08/15/2022 11:27 AM CDT 125 mL/hr lidocaine 2 % (XYLOCAINE) injection IV, INTRA-PROCEDURE PRN, Starting on Mon08/15/22 at 1134, Until Mon08/15/22 at 1151, Routine, Anesthesia Intra-op Given 08/15/2022 11:34 AM CDT 60 mg propofoL (DIPRIVAN) injection IV, INTRA-PROCEDURE PRN, Starting on Mon08/15/22 at 1134, Until Mon08/15/22 at 1151, Anesthesia Intra-op Given 08/15/2022 11:41 AM CDT 50 mg Given 08/15/2022 11:38 AM CDT 50 mg Given 08/15/2022 11:34 AM CDT 100 mg documented in this encounter Care Teams Logging Truck Driver Relationship Specialty Start Date End Date Jasiel Freeman MD [address] [place] [phone] PCP - General Family Practice 08/15/17 documented as of this encounter
--- OUTSIDE RECORDS SUMMARY | 2024-10-24 05:28 | XMS_ITS | Encounter Summary ---
Author Organization [facility] Address [address] [place] [address] Care Team Providers Care Contact Manager Name Role Phone Jasiel Freeman MD Primary Care Provider Reason for Visit * Reason Comments Med Change Request Encounter Details Date Type Department Care Team (Late st Contact Info) Description 01/02/2023 [facility] IBD [facility] Gastroenterology Center [address] [facility] [address] [place] [address] Annette Whitney MD [address] [facility] [address] [place] [phone] Social History Tobacco Use Types Packs/Day Years [...] Coronavirus/COVID-19? No / Unsure 12/15/2022 2:36 PM ASSOCIATE PROFESSOR OF MUSIC documented as of this encounter Plan of Treatment Upcoming Encounters Date Type Department Care Team (Late st Contact Info) Description 02/13/2025 10:30 AM CDT Office Visit [facility] IBD and Gastroenterology Center [place] [address] [place] [address] Kitty Dover ANP [address] [place] [address] documented as of this encounter Visit Diagnoses Not on filedocumented in this encounter Additional Health Concerns Assessment Noted Time PHQ-9 Depression Total Score: 2 12/08/19 23 11:00 AM ASSOCIATE PROFESSOR OF MUSIC documented as of this encounter Care Teams Contact Manager Relationship Specialty Start Date End Date Jasiel Freeman MD [address] [place] [phone] PCP - General Family Practice 08/15/17 documented as of this encounter
--- OUTSIDE RECORDS SUMMARY | 2024-10-24 05:28 | XMS_ITS | Encounter Summary ---
Author Organization [facility] Address [address] [place]: [place] [address] Care Team Providers Care Swim Coach Name Role Phone Jasiel Freeman MD Primary Care Provider Encounter Details Date Type Department Care Team (Latest Contact Info) Description 12/14/2022 Travel Social History Tobacco Use Types Packs/Day [...] suspected to have Coronavirus/COVID-19? No / Unsure 12/14/2022 8:15 AM LASTING FLOORWORKER documented as of this encounter Plan of Treatment Upcoming Encounters Date Type Department Care Team (Late st Contact Info) Description 02/13/2025 10:30 AM CDT Office Visit [facility] IBD and Gastroenterology Center [place] [address] [place] [address] Kitty Dover, ANP [address] [phone] documented as of this encounter Visit Diagnoses Not on filedocumented in this encounter Additional Health Concerns Assessment Noted Time PHQ-9 Depression Total Score: 2 12/08/19 23 11:00 AM LASTING FLOORWORKER documented as of this encounter Care Teams Swim Coach Relationship Specialty Start Date End Date Jasiel Freeman MD [address] [place] [phone] PCP - General Family Practice 08/15/17 documented as of this encounter
--- OUTSIDE RECORDS SUMMARY | 2024-10-24 05:28 | XMS_ITS | Encounter Summary ---
Author Organization [facility] Address [address] [place] [address] Care Team Providers Care Side Piece Coverer Name Role Phone Jasiel Freeman MD Primary Care Provider Reason for Referral * Radiology Services (Routine) - Closed Specialty Diagnoses / Procedures Referred By Contac t Referred To Contact Diagnoses Elevated LFTs Procedures US LIVER Annette Whitney MD [address] [facility] [place] [address] Referral ID Status Reason Start Date Expiration Date Visits Re quested Visits Authorized [id number] Closed 12/09/2022 01/09/2024 1 1 SPORTATION MAINTENANCE SUPERVISOR Reason for Visit * Radiology Services (Routine) - Closed Specialty Diagnoses / Procedures Referred By Contac t Referred To Contact Diagnoses Elevated LFTs Procedures US LIVER Annette Whitney MD [address] [facility] [place] [address] Referral ID Status Reason Start Date Expiration Date Visits Re quested Visits Authorized [id number] Closed 12/09/2022 01/09/2024 1 1 Encounter Details Date Type Department Care Team (Latest Contact Info) Description 12/15/2022 2:41 PM TRANSPORTATION MAINTENANCE SUPERVISOR - 12/15/2022 11:59 PM TRANSPORTATION MAINTENANCE SUPERVISOR Hospital Encounter [facility] [place] [address] [place] [address] Annette Whitney MD [address] [facility] [address] [place] [address] Discharge Disposition: Home or Self Care Social [...] Coronavirus/COVID-19? No / Unsure 12/15/2022 2:36 PM TRANSPORTATION MAINTENANCE SUPERVISOR documented as of this encounter Medications at Time of Discharge Medication Sig Dispensed Refills Start Date End Date montelukast (SINGULAIR) 10 mg tablet Take 10 [...] 1 mL by Misc.(Non-Drug; Combo Route) route. risankizumab-rzaa (Skyrizi) 360 mg/2.4 mL (150 mg/mL) wearable injector Inject 2.4 mL (360 mg) by subcutaneous injection every 8 weeks. 2.4 mL 5 01/02/2023 01/23/2024 hyoscyamine ER 0.375 mg tablet,extended release,12 hr TAKE 1 TABLET (0.375 MG) BY MOUTH EVERY 12 HOURS NEEDED FOR DISCOMFORT. 60 Tablet 1 12/09/2022 01/02/2023 ergocalciferol (VITAMIN D2) 50,000 unit capsule TAKE 1 CAPSULE BY MOUTH EVERY 2 WEEKS 6 Capsule 3 07/21/2022 02/13/2024 documented as of this encounter Progress Notes * Rajni Patel, RDMS - 12/15/2022 2:45 PM CST OUTPATIENTS DISCHARGE INSTRUCTIONS - DISCHARGE INSTRUCTION CARD GIVEN TO PATIENT: Thank you for choosing [facility], it has been a privilege to serve you! Our team is called to provide compassionate care and exceptional service. Your images will be read by a physician, and your resultswill be available in your [facility] account and to your ordering provider, within 48 hours. Thank youfor trusting [facility] with your care. Your [facility] Imaging Services Care Team SPORTATION MAINTENANCE SUPERVISOR documented in this encounter Plan of Treatment Upcoming Encounters Date Type Department Care Team (Late st Contact Info) Description 02/13/2025 10:30 AM CDT Office Visit [facility] IBD and Gastroenterology Center [place] [address] [place] [address] Kitty Dover ANP [address] [place] [address] documented as of this encounter Procedures Procedure Name Priority Date/Time Associated Diagnosis Comments US LIVER Routine 12/15/2022 3:44 PM TRANSPORTATION MAINTENANCE SUPERVISOR Elevated LFTs documented in this encounter Results * US LIVER (12/15/2022 3:44 PM TRANSPORTATION MAINTENANCE SUPERVISOR) Anatomical Region Laterality Modality Abdomen Ultrasound 12/15/2022 3:53 PM TRANSPORTATION MAINTENANCE SUPERVISOR Impressions 12/15/2022 4:08 PM TRANSPORTATION MAINTENANCE SUPERVISOR IMPRESSION: 1. Cholelithiasis without sonographic evidence of acute cholecystitis. 2. Incidentally noted 6 mm nonobstructing stone in the midpole right kidney. DICTATION LOCATION: Location 1 - [facility] Narrative 12/15/2022 4:08 PM TRANSPORTATION MAINTENANCE SUPERVISOR EXAMINATION: LIMITED ABDOMINAL SONOGRAM ?? DATE: 12/15/2022 3:44 PM HISTORY: 52 years-old Male with elevated liver enzymes. COMPARISON: ??None. FINDINGS: Liver: The liver is normal in size. The echotexture is normal. The echogenicity is normal There is no surface nodularity. No focal solid lesions are visualized. Hepatic and portal veins appear patent. ?? Gallbladder: The gallbladder is normal in size. There shadowing gallstones in the gallbladder.. There is no gallbladder wall thickening . ?? Bile Duct: There is no intrahepatic bile duct dilatation. The proximal common duct measures 4 mm, and the mid common duct 4 mm. The distal common duct is not seen. Right Kidney: There is no hydronephrosis in the visualized portions of the right kidney. 6 mm nonobstructing right midpole renal stone is incidentally noted. Pancreas: The visualized portions of the head and body of the pancreas are normal. Inferior vena cava: The proximal inferior vena cava is normal. Other Findings: There is no ascites. Procedure Note Peter Jurado MD - 12/15/2022 EXAMINATION: LIMITED ABDOMINAL SONOGRAM DATE: 12/15/2022 3:44 PM HISTORY: 52 years-old Male with elevated liver enzymes. COMPARISON: None. FINDINGS: Liver: The liver is normal in size. The echotexture is normal. The echogenicity is normal There is no surface nodularity. No focal solid lesions are visualized. Hepatic and portal veins appear patent. Gallbladder: The gallbladder is normal in size. There shadowing gallstones in the gallbladder.. There is no gallbladder wall thickening . Bile Duct: There is no intrahepatic bile duct dilatation. The proximal common duct measures 4 mm, and the mid common duct 4 mm. The distal common duct is not seen. Right Kidney: There is no hydronephrosis in the visualized portions of the right kidney. 6 mm nonobstructing right midpole renal stone is incidentally noted. Pancreas: The visualized portions of the head and body of the pancreas are normal. Inferior vena cava: The proximal inferior vena cava is normal. Other Findings: There is no ascites. IMPRESSION: 1. Cholelithiasis without sonographic evidence of acute cholecystitis. 2. Incidentally noted 6 mm nonobstructing stone in the midpole right kidney. DICTATION LOCATION: Location - [facility] Annette Whitney MD ORDERABLES documented in this encounter Visit Diagnoses Diagnosis Elevated LFTs Other abnormal blood chemistry documented in this encounter Additional Health Concerns Assessment Noted Time PHQ-9 Depression Total Score: 2 12/08/19 23 11:00 AM TRANSPORTATION MAINTENANCE SUPERVISOR documented as of this encounter Care Teams Side Piece Coverer Relationship Specialty Start Date End Date Jasiel Freeman MD [address] [place] [phone] PCP - General Family Practice 08/15/17 documented as of this encounter
--- OUTSIDE RECORDS SUMMARY | 2024-10-24 05:28 | XMS_ITS | Encounter Summary ---
Author Organization [facility] Address [address] [place] [address] Care Team Providers Care Cafeteria Monitor Name Role Phone Jasiel Freeman MD Primary Care Provider Encounter Details Date Type Department Care Team (Late st Contact Info) Description 12/11/2023 External Device Data STL ABSTRACTION Provider, Abstract [...] Description 02/13/2025 10:30 AM CDT Office Visit [facility] [place] [facility] IBD and Gastroenterology Center [place] [address] [place] [address] Kitty Dover, MIRTA [address] [place] [address] documented as of this encounter Visit Diagnoses Not on filedocumented in this encounter Additional Health Concerns Assessment Noted Time PHQ-9 Depression Total Score: 2 12/08/19 23 11:00 AM TRADE UNION OFFICIAL documented as of this encounter Care Teams Cafeteria Monitor Relationship Specialty Start Date End Date Jasiel Freeman MD [address] [place] [address] PCP - General Family Practice 08/15/17 documented as of this encounter
--- OUTSIDE RECORDS SUMMARY | 2024-10-24 05:28 | XMS_ITS | Encounter Summary ---
Author Organization [facility] Address [address] [place] [address] Care Team Providers Care Operator Command Support Systems Name Role Phone Jasiel Freeman MD Primary Care Provider Reason for Visit * Reason Onset Date Comments Home Visit 06/14/2022 Encounter Details Date Type Department Care Team (Late st Contact Info) Description 06/14/2022 Patient Outreach [facility] - [address] [place] [address] Iirna Wyatt, RN Home Visit Social History Tobacco [...] Sign Reading Time Taken Comments Blood Pressure 128/80 06/14/2022 1:00 PM CDT Pulse 90 06/14/2022 1:00 PM CDT Temperature 37.1 ??C (98.7 ??F) 06/14/2022 1:00 PM CD T Respiratory Rate 16 06/14/2022 1:00 PM CDT Oxygen Saturation 95% 06/14/2022 1:00 PM CDT Inhaled Oxygen Concentration - - Weight - - Height - - Body Mass Index - - documented in this encounter Miscellaneous Notes * Telephone Encounter - Irina Wyatt RN - 06/14/2022 10:28 PM CDT Images from the original note were not included. [facility] Home Infusion NURSING follow up Leonidas Elkins 1970 [address] [facility] [address] Provider - Irina Wyatt RN 06/14/2022 Visit start 1245 Visit end 1400 Contact numbers provided including after hours numbers [...] yes Pt informed on importance of notifying [facility] immediately if any unexpected insurance changes occur.yes No problem observed with learning needs - No cultural, evangelical, or language barriers to learning Patient and [...] normal mood and affect. Pain: 0 1. nursing home assessment and implementation of infusion therapy. Teaching [...] reactions. Patient knows how to reorder medications. [facility] will [...] in approximately 4 weeks for Entyvio infusion documented in this encounter Plan of Treatment Upcoming Encounters Date Type Department Care Team (Late st Contact Info) Description 02/13/2025 10:30 AM CDT Office Visit [facility] IBD and Gastroenterology Center [place] [address] [place] [phone] Kitty Dover ANP [address] [place] [address] documented as of this encounter Visit Diagnoses Not on filedocumented in this encounter Care Teams Operator Command Support Systems Relationship Specialty Start Date End Date Jasiel Freeman MD [address] [place] [phone] PCP - General Family Practice 08/15/17 documented as of this encounter
--- OUTSIDE RECORDS SUMMARY | 2024-10-24 05:28 | XMS_ITS | Encounter Summary ---
Author Organization [facility] Address [address] [place] [address] Care Team Providers Care Silo Tender Name Role Phone Jasiel Freeman MD Primary Care Provider Reason for Referral * Eval and Treat (Routine) - Closed Specialty Diagnoses / Procedures Referred By Contac t Referred To Contact Perioperative Diagnoses Crohn's disease with fistula, unspecified gastrointestinal tract location Procedures [place] OFFICE/OUTPATIENT ESTABLISHED MOD MDM 30 MIN [place] OFFICE/OUTPATIENT NEW MODERATE MDM 45 MINUTES Kitty Dover ANP [address] [facility] [address] [place] [address] Jessica Bejarano MD [address] [facility] [address] [place] [address] Referral ID Status Reason Start Date Expiration Date V isits Requested Visits Authorized [id number] Closed CRS to Schedule 01/31/2024 01/30/2025 1 1 Reason for Visit * Reason Comments Crohn's Disease Ulcerative Colitis Encounter Details Date Type Department Care Team (Latest Contact Info) Description 01/31/2024 9:00 AM CDT Office Visit [facility] IBD and Gastroenterology Center [address] [facility] [address] [place] [address] Kitty Dover ANP [address] [facility] [address] [place] [address] Crohn's disease with fistula, unspecified gastrointestinal tract location (Primary Dx); High risk medication use; Vitamin D deficiency; 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; Fatigue, unspecified type; Vitamin B12 deficiency (non anemic) Social History Tobacco Use Types Packs/Day Years Used Date Smoking Tobacco: Former Cigarettes 0.5 10 0 06/09/2001 - 06/09/2011 Smokeless Tobacco: Never Tobacco Cessation:Counseling Given: Not Answered Comments:off & on Alcohol Use Standard Drinks/Week [...] Sign Reading Time Taken Comments Blood Pressure 147/86 01/31/2024 9:00 AM CDT Pulse 83 01/31/2024 9:00 AM CDT Temperature 36.2 ??C (97.1 ??F) 01/31/2024 9:00 AM CD T Respiratory Rate 18 01/31/2024 9:00 AM CDT Oxygen Saturation 97% 01/31/2024 9:00 AM CDT Inhaled Oxygen Concentration - - Weight 86.3 kg (190 lb 3.2 oz) 01/31/2024 9:00 A M CDT Height 175.3 cm (5' 9 ) 01/31/2024 9:00 AM CDT Body Mass Index 28.09 01/31/2024 9:00 AM CDT documented in this encounter Progress Notes * Kitty Dover ANP - 01/31/2024 9:00 AM CDT [facility] Disease [facility] MIRTA Guido Chief Complaint Patient presents with Crohn's Disease Ulcerative Colitis Edgardo Elkins is a 53 y.o. male with hx of UC s/p total colectomy with J pouch in 2001 presenting tothe [facility] IBD clinic for a follow up. 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 His last pouchoscopy on entyvio (2021) showed severe inflammation in the prepouch ileum and he later started Skyrizi. He did initially have symptoms including dark urine, YESSICA, He reports he feels great! He has continued OBI q8w without any complaints or concerns. No joint site reaction. He has 3-4 BMs daily. No urgency, blood, mucus or abdominal pain. No UGI symptoms. Denies skin changes, mouth sores, new joint pain or mouth sores. IBD Hx: The patient's IBD History has been copied and pasted from previous visits and updated at every visit. Dx 2000 He has been on Humira, Remicade, Xifaxin, Cipro, Augmentin, Vanc, prednisone, Protonix, Asacol, cefdinir Entyvio 300mg q 4 weeks. 07/2022: scope with inflammation at the pre-pouch ileum that was severe. 10/2022- started skyrizi Past Medical History: I updated the electronic medical records of any updates in patients medical, social, and family hx. Past Medical History: Diagnosis Date Arthritis Asthma as a child Injury of face and neck herniated disk Ulcerative colitis Unspecified adverse effect of anesthesia violent after 1st surgery Past Surgical History: Procedure Laterality Date HX COLECTOMY 2001 HX HIP REPLACEMENT, TOTAL Left 10/08/2017 [place] COLONOSCOPY FLX DX W/COLLJ SPEC WHEN PFRMD 12/08/2009 COLONOSCOPY performed by LOUISE SOTELO at [facility] [place] COLONOSCOPY FLX DX W/COLLJ SPEC WHEN PFRMD 06/09/2014 COLONOSCOPY performed by Lane Ryan MD at [facility] GI [facility] [place] DILAT RCT STRIX SPX UNDER ANES OTH/THN LOCAL 06/12/2012 RECTAL STRICTURE DILATATION performed by Lane Ryan MD at [facility] GI [facility] [place] ENDOSCOPY UPPER SMALL INTESTINE 06/12/2012 SMALL BOWEL ENTEROSCOPY performed by Lane Ryan MD at [facility] GI [facility] [place] ENDOSCOPY UPPER SMALL INTESTINE N/A 08/24/2017 SMALL BOWEL ENTEROSCOPY performed by Lane Ryan MD at [facility] GI [facility] [place] ENDOSCOPY UPPER SMALL INTESTINE W/BIOPSY 02/28/2012 BOWEL SMALL BIOPSY ENDOSCOPIC performed by Lane Ryan MD at [facility] GI LAB VT ESOPHAGOGASTRODUODENOSCOPY TRANSORAL DIAGNOSTIC 02/28/2012 ESOPHAGOGASTRODUODENOSCOPY performed by Lane Ryan MD at [facility] GI [facility] VT NDSC EVAL INTSTINAL POUCH DX W/COLLJ SPEC SPX 02/16/2012 POUCHOSCOPY performed by Louise Sotelo MD at [facility] GI [facility] [place] NDSC EVAL INTSTINAL POUCH DX W/COLLJ SPEC SPX N/A 08/15/2022 POUCHOSCOPY performed by Annette Whitney MD at [facility] [place] SIGMOIDOSCOPY FLX DX W/COLLJ SPEC BR/WA IF PFRMD 02/16/2012 SIGMOIDOSCOPY FLEXIBLE performed by Louise Sotelo MD at [facility] GI [facility] [place] SIGMOIDOSCOPY FLX DX W/COLLJ SPEC BR/WA IF PFRMD N/A 06/12/2020 CHECKOUT SIGMOIDOSCOPY FLEXIBLE performed by Annette Whitney MD at [facility] GI [facility] Family History Problem Relation Name Age of Onset Heart Disease Father Hypertension Mother Healthy Sister Healthy Brother Colon Cancer Neg Hx Social History Socioeconomic History Marital status: Spouse name: Not on file Number of children: Not on file Years of education: Not on file Highest education level: Not on file Occupational History Employer: [employer] Employer: [employer] Tobacco Use Smoking status: Former Current packs/day: 0.00 Average packs/day: 0.5 packs/day for 10.0 years (5.0 ttl pk-yrs) Types: Cigarettes Start date: 06/09/2001 Quit date: 06/09/2011 Years since quittin.6 Smokeless tobacco: Never Tobacco comments: off & on Vaping Use Vaping status: Never Used Substance and Sexual Activity Alcohol use: Yes Comment: rarely Drug use: No Sexual activity: Not on file Other Topics Concern Not on file Social History Narrative Not on file Social Determinants of Health Financial Resource Strain: Not on file Food Insecurity: Not on file Transportation Needs: Not on file Social Connections: Not on file Intimate Partner Violence: Not on file Housing Stability: Not on file Allergies Allergen Reactions Infliximab Rash Other reaction(s): Sneezing flushed face Exam: BP (!) 147/86 Pulse 83 Temp 97.1 ??F (36.2 ??C) Resp 18 Ht 5' 9 (1.753 m) Wt 86.3 kg (190 lb 3.2 oz) SpO2 97% BMI 28.09 kg/m?? General appearance: normal, alert, no distress, appears stated age Eyes: conjunctivae non-injected Neck: supple, symmetrical, no adenopathy Lungs: no respiratory distress, breathing comfortably. Abdomen: soft, no masses palpable, non-tender, non-distended Extremities: no ulcers, no edema Joints: no synovitis Skin: No rashes or lesions Neuro: Converses and ambulates appropriately Relevant Laboratories: Lab Results Component Value Date WBC 6.9 08/08/2022 HGB 14.5 08/08/2022 HGB 15.0 07/29/2021 HCT 47.8 08/08/2022 HCT 49.4 07/29/2021 PLT 334 08/08/2022 MCV 79.4 (L) 08/08/2022 MCV 81.7 07/29/2021 Lab Results Component Value Date NA 139 12/08/2022 K 4.6 12/08/2022 CL 105 12/08/2022 CO2 29 12/08/2022 CA 8.6 12/08/2022 BUN 20 12/08/2022 CREAT 1.16 12/08/2022 GLUCOSE 77 12/08/2022 TOTALPROTEIN 7.3 01/20/2023 TOTALPROTEIN 6.9 08/08/2022 ALBUMIN 4.0 01/20/2023 ALBUMIN 3.7 08/08/2022 BILITOTAL 0.5 01/20/2023 ALKPHOS 67 01/20/2023 ALKPHOS 79 08/08/2022 AST 15 01/20/2023 ALT 22 01/20/2023 ANIONGAP 10 05/20/2020 BCRATIO NOT APPLICABLE 12/08/2022 Last Endoscopies: Pouchoscopy 05/2020. Impression: Pouchitis vs. Crohn's of the pouch with suspected strictures Pathology: Small intestine, pre-pouch ileum, endoscopic biopsy: - Active ileitis, patchy and very mild. Small intestine, pouch, endoscopic biopsy: - Small intestinal mucosa with reactive changes and patchy and mild active enteritis. Intestine, rectal cuff, endoscopic biopsy: - Small intestinal mucosa/rectal mucosa with patchy and mild active enteritis. Pertinent Imaging: Assessment: Edgardo Elkins is a 53 y.o. 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 Last pouchoscopy was 07/2022 with inflammation in the pr pouch ileum, changed to skyrizi. Hadflare after antibiotics and started skyrizi. Continue Skyrizi OBI every 8 weeks. Labs and stool testing. Pouchoscopy with Dr. Bejarano this year. FMLA paperwork updated today. Elevated LFTs- repeat were normal. Continue Skyrizi Vitamin B12 deficiency - taking OTC supplement. Will check levels. Vitamin D deficiency - 50k IU every 2 weeks. Will continue to monitor High risk medication requiring frequent monitoring, Skyrizi - TB negative 07/2022. Will update and continue to monitor labs. Health Maintenance in IBD patient COVID Vaccination - up to date without booster Prevnar 20?? - pt thinks this is updated with PCP Influenza Vaccine - Up To Date Shingrix vaccines - pt thinks this is updated with PCP Annual eye exams recommended Annual skin check recommended Continue Vitamin D and Vitamin B12 Recommendations: Continue Skyrizi OBI every 8 weeks. Labs at [facility]. Stool test to be sent home with you today - calpro. Pouchoscopy with Dr. Bejarano at any location Fall 2023 with mag citrate. Decrease budesonide 3mg to every other day. Continue dicyclomine as needed. Follow up in [address] eBjarano. On the day of the visit, I spent 42 minutes providing care to this patient including chart review, review of outside records, obtaining history from patient and their family, performing a medically appropriate examination, counseling and educating the patient/family/caregiver, ordering medications, tests, or procedures, and documenting clinical information in the medical record. MIRTA Guido Division of Gastroenterology [facility] Inflammatory Bowel Disease [phone] CC: Jasiel Freeman MD No orders of the defined types were placed in this encounter. Current Outpatient Medications: risankizumab-rzaa (Skyrizi) 360 mg/2.4 mL (150 mg/mL) wearable injector, Inject 2.4 mL (360 mg) by subcutaneous injection every 8 weeks., Disp: 2.4 mL, Rfl: 5 hyoscyamine ER 0.375 mg tablet,extended release,12 hr, TAKE 1 TABLET (0.375 MG) BY MOUTH EVERY 12 HOURS NEEDED FOR DISCOMFORT., Disp: 60 Tablet, Rfl: 1 montelukast (SINGULAIR) 10 mg tablet, Take 10 mg by mouth daily., Disp: , Rfl: OTHER, , Disp: , Rfl: risankizumab-rzaa (SKYRIZI IV), Inject 600 mg by intravenous injection. Administer 600 mg IV on weeks 0, 4, and 8., Disp: , Rfl: budesonide (ENTOCORT EC) 3 mg Enteric Coated 24 hour capsule, TAKE 3 CAPSULES (9 MG) BY MOUTH DAILY., Disp: 270 Capsule, Rfl: 3 ergocalciferol (VITAMIN D2) 50,000 unit capsule, TAKE 1 CAPSULE BY MOUTH EVERY 2 WEEKS, Disp: 6 Capsule, Rfl: 3 omeprazole (PriLOSEC) 40 mg Capsule, Delayed Release(E.C.), Take 40 mg by mouth daily., Disp: , Rfl: terbinafine HCL (LamISIL) 250 mg tablet, Take 250 mg by mouth daily., Disp: , Rfl: testosterone cypionate (DEPO-TESTOSTERONE) 200 mg/mL Oil, INJECT 1ML INTRAMUSCULARLY WEEKLY, Disp: , Rfl: zolpidem (AMBIEN) 5 mg tablet, TAKE 1 TABLET BY MOUTH AT BEDTIME NEEDED FOR 30 DAYS, Disp: , Rfl: ondansetron (ZOFRAN) 4 mg Tablet, Take 1 Tablet (4 mg) by mouth every 8 hours as needed for Nausea/Emesis., Disp: 15 Tablet, Rfl: None Syringe with Needle, Disp, (BD Luer-Jesusita Syringe) 3 mL 23 gauge x 1 1/2 Syringe, For use with B12 injections, Disp: 12 Each, Rfl: 2 SOLU-MEDROL, PF, 40 mg/mL Recon Soln, ADMINISTER 40 MG VIA SLOW INTRAVENOUS PUSH IN CASE OF SEVERE ALLERGICREACTION., Disp: 1 Each, Rfl: 0 BD PRECISIONGLIDE 25 gauge x 1 Needle, USE DIRECTED TO ADMINISTER SOLU CORTEF, Disp: 5 Each, Rfl: 1 diphenhydrAMINE (BENADRYL) 50 mg/mL Solution, ADMINISTER 25 MG VIA SLOW INTRAVENOUS PUSH IN CASE OFSEVERE ALLERGICREACTION. DISCARD EXCESS, Disp: 1 mL, Rfl: 0 TESTOSTERONE, BULK, MISC, 1 mL by Misc.(Non-Drug; Combo Route) route., Disp: , Rfl: documented in this encounter Miscellaneous Notes * Addendum Note - Kitty Dover ANP - 02/13/2024 1:17 PM CDTAddended by: KITTY DOVER on: 02/13/2024 01:17 PM Modules accepted: Orders * Result Encounter Note - Kitty Dover ANP - 02/13/2024 1:17 PM CDT Vit d def - started Ergo B12 def - start OTC SL CRP much improved * Patient Instructions - Kitty Dover ANP - 01/31/2024 9:22 AM CDT Thank you for entrusting your healthcare to the physicians at [facility] Inflammatory Bowel Disease and Gastroenterology Following your visit, you may receive a survey via email or [email or web address]. Kitty encourages you to respond to this confidential survey about your care. If you received excellent care, Kitty would appreciate your evaluation. Your feedback helps us to provide quality service at every visit. Thank you for your help in making our practice meet the highest expectations! [facility] Inflammatory Bowel Disease and Gastroenterology Center If you have IBD, this is the preferred office to contact. [address] [place] [address] Other important numbers to add to our contact info: After hours physician exchange: [phone] Champion: To schedule CT or MRI: Call [phone] To schedule EGD/Colon/Flex [phone] Bejarano/Kiki: To schedule CT or MRI: Call [phone] To schedule an EGD/Colon/Flex Sig: Call [phone] IMPORTANT: The following information and instructions are from your visit today: Continue Skyrizi OBI every 8 weeks. Labs at [facility]. Stool test to be sent home with you today - calpro. Pouchoscopy with Dr. Bejarano at any location Fall 2023 with mag citrate. Decrease budesonide 3mg to every other day. Continue dicyclomine as needed. Follow up in [address] Bejarano. JOANNE Mohan documented in this encounter Plan of Treatment Upcoming Encounters Date Type Department Care Team (Late st Contact Info) Description 02/13/2025 10:30 AM CDT Office Visit [facility] IBD and Gastroenterology Center [place] [address] [facility] [address] [place] [address] Kitty Dover ANP [address] [facility] [address] [place] [address] Scheduled Orders Name Type Priority Associated Diagnoses Orde r Schedule CALPROTECTIN, FECAL Lab Routine Crohn's disease with fistula, unspecified gastrointestinal tract location Expected: 01/31/2024, Expires: 01/30/2025 Scheduled Referrals Name Type Priority Associated Diagnoses Orde r Schedule AMB REFERRAL TO GASTROENTEROLOGY Outpatient Referral Routine Crohn's disease with fistula, unspecified gastrointestinal tract location Ordered: 01/31/2024 documented as of this encounter Procedures Procedure Name Priority Date/Time Associated Diagnosis Comments QUANTIFERON TB GOLD Routine 02/12/2024 9 :59 AM CDT High risk medication use CBC WITH DIFFERENTIAL Routine 02/12/2024 9:59 AM CDT Crohn's disease with fistula, unspecified gastrointestinal tract location VITAMIN D 25 HYDROXY Routine 02/12/2024 9:59 AM CDT Vitamin D deficiency 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 M. tuberculosis complex infection unlikely. NIL 0.02 IU/mL [facility] MITOGEN-NIL >10.00 IU/mL [facility] TB1 AG - NIL 0.00 IU/mL [facility] TB2 AG - NIL 0.00 IU/mL [facility] Comment: The Nil tube value reflects the background interferon gamma immune response of the patient's blood sample. This value has been subtracted from the patient's displayed TB and Mitogen results. Lower than expected results with the Mitogen tube prevent false-negative Quantiferon readings by detecting a patient with a potential immune suppressive condition and/or suboptimal pre-analytical specimen handling. The TB1 Antigen tube is coated with the M. tuberculosis-specific antigens designed to elicit responses from TB antigen primed CD4+ helper T-lymphocytes. The TB2 Antigen tube is coated with the M. tuberculosis-specific antigens designed to elicit responses from TB antigen primed CD4+ helper and CD8+ cytotoxic T-lymphocytes. For additional information, please refer to https://education.DigitalTown.HiWired/faq/IZS206 (This link is being provided for informational/ educational purposes only.) FASTING:NO FASTING: NO Test Performed at: [facility] [id number] [place] [address] ??[phone] Conner Darby MD Blood 02/12/2024 9:59 AM CDT 02/12/2024 9:59 AM CDT Kitty Dover ANP CHEMISTRY ORDER SHAMAR [facility] [phone] [facility] [address] * (ABNORMAL) VITAMIN B12 LEVEL (02/12/2024 9:59 AM CDT) Pathologist [facility] VITAMIN B12 193(L) 200 - 1100 pg/mL [facility] Comment: Test Performed at: [facility] ??[phone] Conner Darby MD Blood 02/12/2024 9:59 AM CDT 02/12/2024 9:59 AM CDT Kitty Dover ANP CHEMISTRY ORDER SHAMAR Performing Organization Address [facility]/ZIP Co de Phone Number [facility] [phone] [facility] [address] * (ABNORMAL) VITAMIN D 25 HYDROXY (02/12/2024 9:59 AM CDT) Pathologist [facility] VITAMIN D, 25 OH, TOTAL 28(L) 30 - 100 ng/mL [facility] Comment: Vitamin D Status ? 25-OH Vitamin D: Deficiency: ?<20 ng/mL Insufficiency: ? 20 - 29 ng/mL Optimal: ? > or = 30 ng/mL For 25-OH Vitamin D testing on patients on D2-supplementation and patients for whom quantitation of D2 and D3 fractions is required, the [facility]) 25-OH VIT D, (D2,D3), LC/MS/MS is recommended: order code 38502 (patients >2yrs). See Note 1 Note 1 For additional information, please refer to http://education.ExtricomThree Rings/faq/VHP081 (This link is being provided for informational/ educational purposes only.) FASTING:NO FASTING: NO Test Performed at: [facility] [address] [place], [place] ??[phone] Conner Darby MD Blood 02/12/2024 9:59 AM CDT 02/12/2024 9:59 AM CDT Kitty Dover ANP CHEMISTRY ORDER SHAMAR Performing Organization Address [facility] Co de Phone Number [facility] [phone] [facility] [address] [place] [phone] * C-REACTIVE PROTEIN (02/12/2024 9:59 AM CDT) CRP 4.6 <8.0 mg/L [facility] Comment: FASTING:NO FASTING: NO Test Performed at: [facility] [address] [place] [address] ??[phone] Conner Darby MD Blood 02/12/2024 9:59 AM CDT 02/12/2024 9:59 AM CDT Kitty Dover ANP CHEMISTRY ORDER SHAMAR Performing Organization Address [facility] Co de Phone Number [facility] [phone] [facility] [address] [place] [phone] * COMPREHENSIVE METABOLIC PANEL (02/12/2024 9:59 AM CDT) GLUCOSE 95 65 - 139 mg/dL [facility] Comment: ? Non-fasting reference interval BUN 12 7 - 25 mg/dL [facility] CREATININE 1.18 0.70 - 1.30 mg/dL [facility] GFR 74 > OR = 60 mL/min/1. 73m2 [facility] BUN/CREAT RATIO SEE NOTE: (calc) [facility] Comment: ?? Not Reported: BUN and Creatinine are within ?? reference range. ? SODIUM 137 135 - 146 mmol/L [facility] POTASSIUM 4.4 3.5 - 5.3 mmol/L [facility] CHLORIDE 103 98 - 110 mmol/L [facility] CO2 27 20 - 32 mmol/L [facility] CALCIUM 9.1 8.6 - 10.3 mg/dL [facility] TOTAL PROTEIN 7.3 6.1 - 8.1 g/dL [facility] ALBUMIN 4.1 3.6 - 5.1 g/dL [facility] GLOBULIN 3.2 1.9 - 3.7 g/dL (calc) [facility] ALBUMIN/GLOBULIN RATIO 1.3 1.0 - 2.5 (calc) [facility] BILIRUBIN TOTAL 0.5 0.2 - 1.2 mg/dL [facility] ALKALINE PHOSPHATASE 64 35 - 144 U/L [facility] AST 19 10 - 35 U/L [facility] ALT 23 9 - 46 U/L [facility] Comment: FASTING:NO FASTING: NO Test Performed at: [facility] ??[phone] Conner Darby MD Blood 02/12/2024 9:59 AM CDT 02/12/2024 9:59 AM CDT Kitty Dover ANP CHEMISTRY ORDER SHAMAR [facility] [phone] [facility] [address] [place] [address] * (ABNORMAL) CBC WITH DIFFERENTIAL (02/12/2024 9:59 AM CDT) WBC 6.7 3.8 - 10.8 Thousand/uL [facility] RBC 6.52(H) 4.20 - 5.80 Million/uL [facility] HEMOGLOBIN 12.7(L) 13.2 - 17.1 g/dL [facility] HEMATOCRIT 44.7 38.5 - 50.0 % [facility] MCV 68.6(L) 80.0 - 100.0 fL [facility] MCH 19.5(L) 27.0 - 33.0 pg [facility] MCHC 28.4(L) 32.0 - 36.0 g/dL [facility] RDW 19.1(H) 11.0 - 15.0 % [facility] PLATELETS 381 140 - 400 Thousand/uL [facility] MPV 10.4 7.5 - 12.5 fL [facility] NEUTROPHIL ABSOLUTE 3,142 1,500 - 7,800 cells/uL [facility] LYMPHOCYTE ABSOLUTE 2,941 850 - 3,900 cells/uL [facility] MONOCYTE ABSOLUTE 503 200 - 950 cells/uL [facility] EOSINOPHIL ABSOLUTE 87 15 - 500 cells/uL [facility] BASOPHILS ABSOLUTE 27 0 - 200 cells/uL [facility] NEUTROPHIL 46.9 % [facility] LYMPHOCYTES 43.9 % [facility] MONOCYTE 7.5 % [facility] EOSINOPHILS 1.3 % [facility] BASOPHILS 0.4 % [facility] RBC MORPHOLOGY NORMAL [facility] Comment: Anisocytosis 1 + Microcytosis 2 + Hypochromasia 1 + FASTING:NO FASTING: NO Test Performed at: [facility] [address] [facility] [place] ??[phone] Conner Darby MD Blood 02/12/2024 9:59 AM CDT 02/12/2024 9:59 AM CDT Kitty KIRBY HEMATOLOGY ORDToño PRITCHETT [facility] [phone] [facility] [address] [place] [address] documented in this encounter Visit Diagnoses Diagnosis Crohn's disease with fistula, unspecified gastrointestinal tract location- Primary High risk medication use Encounter for long-term (current) use of other medications Vitamin D deficiency Unspecified vitamin D deficiency [facility] systemic steroid user Fatigue, unspecified type Vitamin B12 deficiency (non anemic) Other B-complex deficiencies documented in this encounter Additional Health Concerns Assessment Noted Time PHQ-9 Depression Total Score: 2 12/08/19 23 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
--- OUTSIDE RECORDS SUMMARY | 2024-10-24 05:28 | XMS_ITS | Encounter Summary ---
Author Organization [facility] Address [address] [place] [address] Care Team Providers Care Marketing Data Specialist Name Role Phone Jasiel Freeman MD Primary Care Provider Reason for Visit * Reason Comments Med Refill Encounter Details Date Type Department Care Team (Late st Contact Info) Description 07/20/2022 Refill [facility] Gastroenterology [facility] [address] [facility] [address] [place] [address] Gilma Marcos PA [address] [facility] [address] [place] [address] Social History Tobacco Use Types Packs/Day Years [...] AM CDT documented as of this encounter Miscellaneous Notes * Telephone Encounter - Reta Galindo - 07/20/2022 2:51 PM CDT TEQUILA- 08/02/21 ROV- 07/21/22 Medication pended, please sign if appropriate. documented in this encounter Plan of Treatment Upcoming Encounters Date Type Department Care Team (Late st Contact Info) Description 02/13/2025 10:30 AM CDT Office Visit [facility] [place] [address] [place] [address] Kitty Dover, [facility] [address] [place] [address] [place] [address] documented as of this encounter Visit Diagnoses Not on filedocumented in this encounter Care Teams Marketing Data Specialist Relationship Specialty Start Date End Date Jasiel Freeman MD [address] [place] [phone] PCP - General Family Practice 08/15/17 documented as of this encounter
--- OUTSIDE RECORDS SUMMARY | 2024-10-24 05:28 | XMS_ITS | Encounter Summary ---
Author Organization [facility] Address [address] [place] [address] Care Team Providers Care Trencher Driver Name Role Phone Jasiel Freeman MD Primary Care Provider Encounter Details Date Type Department Care Team (Late st Contact Info) Description 03/26/2024 External Device Data STL ABSTRACTION Provider, Abstract [...] Description 02/13/2025 10:30 AM CDT Office Visit [facility] [place] [address] [place] [address] Kitty Dover, MIRTA [address] [place] [address] documented as of this encounter Visit Diagnoses Not on filedocumented in this encounter Additional Health Concerns Assessment Noted Time PHQ-9 Depression Total Score: 2 12/08/19 23 11:00 AM LOG TURNER documented as of this encounter Care Teams Trencher Driver Relationship Specialty Start Date End Date Jasiel Freeman MD [address] [place] [phone] PCP - General Family Practice 08/15/17 documented as of this encounter
--- OUTSIDE RECORDS SUMMARY | 2024-10-24 05:28 | XMS_ITS | Encounter Summary ---
Author Organization [facility] Address [address] [place] [address] Care Team Providers Care Splitter Machine Name Role Phone Jasiel Freeman MD Primary Care Provider Encounter Details Date Type Department Care Team (Late st Contact Info) Description 01/30/2024 External Device Data STL ABSTRACTION Provider, Abstract [...] Description 02/13/2025 10:30 AM CDT Office Visit [facility] [place] [address] [place] [address] Kitty Dover, MIRTA [address] [place] [address] documented as of this encounter Visit Diagnoses Not on filedocumented in this encounter Additional Health Concerns Assessment Noted Time PHQ-9 Depression Total Score: 2 12/08/19 23 11:00 AM MINE MOTOR ENGINEER documented as of this encounter Care Teams Splitter Machine Relationship Specialty Start Date End Date Jasiel Freeman MD [address] [place] [address] PCP - General Family Practice 08/15/17 documented as of this encounter
--- OUTSIDE RECORDS SUMMARY | 2024-10-24 05:28 | XMS_ITS | Encounter Summary ---
Author Organization [facility] Address [address] [place] [address] Care Team Providers Care Book Or Script Editor Name Role Phone Jasiel Freeman MD Primary Care Provider Reason for Visit * Reason Comments Med Refill Encounter Details Date Type Department Care Team (Late st Contact Info) Description 11/06/2022 Refill [facility] [address] [facility] [address] [place] [address] Annette Whitney MD [address] [facility] [place] [address] Social History Tobacco Use Types Packs/Day Years [...] encounter Miscellaneous Notes * Telephone Encounter - Usha Vee - 11/07/2022 11:16 AM CST IBD CENTER MEDICATION REFILL REQUEST Last Refill: 08/12/2022 QTY: 90 RF: 2 TEQUILA: 07/21/2022 NOV: 12/08/2022 Safety Monitoring Labs UTD? yes Assessment/Recommendations/Plan: Edgardo Elkins is a 51 y.o. male presenting to discuss the following: Severe UC s/p total colectomy with J pouch 2002 that has had chronic pouchitis and perianal fistulas. Last pouchoscopy was 05/2020. Given that he has increased BMs and abd cramping after infusions, will check Vedo level prior to next infusion to r/o antibodies given his multiple previous treatment failures. Symptoms could be from abundance of IV fluids during infusion. Pouchoscopy due and ordered to be scheduled prior to the end of the year. [facility] paperwork updated today. Vitamin B12 deficiency - taking OTC supplement. Will check levels. Vitamin D deficiency - 50k IU every 2 weeks. Will continue to monitor High risk medication requiring frequent monitoring, Entyvio - TB negative 07/2021. Will update and continue to monitor labs. Health Maintenance in IBD patient COVID Vaccination - up to date without booster Pneumovax?? - due and discussed Influenza Vaccine - Up To Date Shingrix vaccines - due and discussed Annual eye exams recommended Annual skin check recommended Continue Vitamin D and Vitamin B12 Recommendations: Get labs and stool test at [facility] the day prior to your next entyvio infusion as we want to draw an Entyvio level. Schedule scope (pouchoscopy) with Dr. Nair with 1/2 clenpiq prep. Clenpiq prep ordered. OK to use golytely or miralax if not covered. Patient can go to [employer] to download a SAVINGS Card to pay less than $40 for the prep. Update vaccines including [id number] and shingrix. Follow up in [address] Nair. documented in this encounter Plan of Treatment Upcoming Encounters Date Type Department Care Team (Late st Contact Info) Description 02/13/2025 10:30 AM CDT Office Visit [facility] [place] [address] [place] [phone] Kitty Dover, ANP [address] [facility] [address] [place] [address] documented as of this encounter Visit Diagnoses Not on filedocumented in this encounter Care Teams Book Or Script Editor Relationship Specialty Start Date End Date Jasiel Freeman MD [address] [place] [phone] PCP - General Family Practice 08/15/17 documented as of this encounter
--- OUTSIDE RECORDS SUMMARY | 2024-10-24 05:28 | XMS_ITS | Encounter Summary ---
Author Organization [facility] Address [address] Avila: [place] [address] Care Team Providers Care Hospital Scientist Name Role Phone Jasiel Freeman MD Primary Care Provider Encounter Details Date Type Department Care Team (Latest Contact Info) Description 12/09/2022 Travel Social History Tobacco Use Types Packs/Day [...] Coronavirus/COVID-19? No / Unsure 12/09/2022 1:02 PM SUPERVISOR CRACK OFF documented as of this encounter Plan of Treatment Upcoming Encounters Date Type Department Care Team (Late st Contact Info) Description 02/13/2025 10:30 AM CDT Office Visit [facility] IBD [facility] Gastroenterology [facility] [place] [address] [place] [address] Kitty Dover, ANP [address] [phone] documented as of this encounter Visit Diagnoses Not on filedocumented in this encounter Additional Health Concerns Assessment Noted Time PHQ-9 Depression Total Score: 2 12/08/19 23 11:00 AM SUPERVISOR CRACK OFF documented as of this encounter Care Teams Hospital Scientist Relationship Specialty Start Date End Date Jasiel Freeman MD [address] [place] [phone] PCP - General Family Practice 08/15/17 documented as of this encounter
--- OUTSIDE RECORDS SUMMARY | 2024-10-24 05:28 | XMS_ITS | Encounter Summary ---
Author Organization [facility] Address [address] Avila: [place] [address] Care Team Providers Care Gold Leaf Printer Name Role Phone Jasiel Freeman MD Primary Care Provider Encounter Details Date Type Department Care Team (Latest Contact Info) Description 08/15/2022 Travel Social History Tobacco Use Types Packs/Day [...] Description 02/13/2025 10:30 AM CDT Office Visit [facility] IBD [facility]astroenterology [facility] [place] [address] [place] [address] Kitty Dover, ANP [address] [facility] [address] [place] [address] documented as of this encounter Visit Diagnoses Not on filedocumented in this encounter Care Teams Gold Leaf Printer Relationship Specialty Start Date End Date Jasiel Freeman MD [address] [place] [phone] PCP - General Family Practice 08/15/17 documented as of this encounter
--- OUTSIDE RECORDS SUMMARY | 2024-10-24 05:28 | XMS_ITS | Encounter Summary ---
Author Organization [facility] Address [address] [place] [address] Care Team Providers Care Geothermal Technician Name Role Phone Jasiel Freeman MD Primary Care Provider Encounter Details Date Type Department Care Team (Late st Contact Info) Description 01/20/2023 Specialty [address] [facility] Specialty and Home Infusion - [address] [place] [address] Jameson Borja, PHARMACIST Social History Tobacco Use Types Packs/Day [...] as of this encounter Progress Notes * Jameson Borja, PHARMACIST - 01/20/2023 3:47 PM CDT [facility] Patient Name: Edgardo Elkins Home Infusion Orders Medication: Skyrizi 600 mg IV on weeks 0, 4, and 8 Treating Diagnosis: Ulcerative colitis Prescriber(s): Annette Martin MD Therapy Start Date: 11/15/22 Anticipated Therapy End Date: 01/10/23 Note: Patient after this infusion will switch to Skyrizi subcutaneous injection every 8 weeks. Week 0 - 11/15/22 Week 4 - 12/12/22 Week 8 - 01/23/23 Vascular Access Device (VAD) Orders Type of VAD: PIV NS 10 mL: 10 mL before and after each dose and as needed for lab draws/line complications Pharmacy to dispense flushes, catheter supplies and all medically necessary infusion supplies untilcatheter is removed. Lab orders: No labs needed/ordered Nursing Provided by [facility] Therapy Specific Skyrizi Antibody formation: Formation [...] whom an adequate course of TB treatment idaz be confirmed. Monitor closely for signs/symptoms of [...] Logistics Information for this assessment provided by [employer] record + patient HIPAA contact identified? No Any changes to prescription/medical insurance or copay assistance? No Patient requires delivery to cover through 01/23/23 Pharmacy to send Skyrizi + IV supplies Delivery date: deliver 01/20/23 via same day exterminator Specific delivery Instructions: Permission to leave delivered [...] 10:30 AM CDT Office Visit [facility] IBD [facility] Gastro[facility]ology [facility] [place] [address] [place] [address] Kitty Dover ANP [address] [place] [address] [place] [address] documented as of this encounter Visit Diagnoses Not on filedocumented in this encounter Additional Health Concerns Assessment Noted Time PHQ-9 Depression Total Score: 2 12/08/19 23 11:00 AM TEACHER PRIVATE documented as of this encounter Care Teams Geothermal Technician Relationship Specialty Start Date End Date Jasiel Freeman MD [address] [place] [phone] PCP - General Family Practice 08/15/17 documented as of this encounter
--- OUTSIDE RECORDS SUMMARY | 2024-10-24 05:28 | XMS_ITS | Encounter Summary ---
Author Organization [facility] Address [address] Laurenn: [place] [address] Care Team Providers Care Middle School Assistant Principal Name Role Phone Jasiel Freeman MD Primary Care Provider Encounter Details Date Type Department Care Team (Latest Contact Info) Description 07/21/2022 Travel Social History Tobacco Use Types Packs/Day [...] Description 02/13/2025 10:30 AM CDT Office Visit [facility] IBD and Gastro[facility]ology [facility] [place] [address] [place] [address] Kitty Dover, ANP [address] [facility] [address] [place] [address] documented as of this encounter Visit Diagnoses Not on filedocumented in this encounter Care Teams Middle School Assistant Principal Relationship Specialty Start Date End Date Jasiel Freeman MD [address] [place] [phone] PCP - General Family Practice 08/15/17 documented as of this encounter
--- OUTSIDE RECORDS SUMMARY | 2024-10-24 05:28 | XMS_ITS | Encounter Summary ---
Author Organization [facility] Address [address] [place] [address] Care Team Providers Care Director Title Name Role Phone Jasiel Freeman MD Primary Care Provider [phone] Reason for Visit * Auth/Cert (Routine) Specialty Diagnoses / Procedures Referred By Contalka t Referred To Contact Perioperative Diagnoses Crohn's disease with fistula, unspecified gastrointestinal tract location Procedures ND NDSC EVAL INTSTINAL POUCH DX W/COLLJ SPEC SPX CHECKOUT POUCHOSCOPY Jessica Bejarano MD [address] [facility] [address] [place] [phone] [facility] [address] [place] [address] Referral ID Status Reason Start Date Expiration Date Visits Re quested Visits Authorized [id number] 1 1 Encounter Details Date Type Department Care Team (Late st Contact Info) Description 08/06/2024 7:50 AM CDT Anesthesia Event [facility] S [facility] [address] [place] [address] Louis Klein MD [address] [place] [address] Senait Salgado AA-C [address] [place] [facility] [place] [phone] Anesthesia Record Procedure Summary Procedure Name Responsible Anesthesiologist Anesthesia Start Time Anesthesia Stop Time CHECKOUT POUCHOSCOPY (Anus) Louis Klein MD 08/06/24 0750 08/06/24 0818 Events Date Time Event Comment 08/06/2024 0725 AN Equip Check Anesthesia eq uipment and materials checked in accordance with local policy. 0742 In Room This event disp lays the In Room time documented in the Surgical Log. Deleting this event will not remove it from the log but will remove it from the Grid and Graph timeline. 0750 An Start 0753 An Start Data 0756 Pre-Induction Immediate pre- induction anesthetic assessment performed. Vital signs as noted on graphic. 0757 An Induction 0757 Anesthesia Ready 0758 Procedure Start This event d isplays the Procedure Start time documented in the Surgical Log. Deleting this event will not remove it from the log but will remove it from the Grid and Graph timeline. 0802 0814 Procedure Stop This event di splays the Procedure Stop time documented in the Surgical Log. Deleting this event will not remove it from the log but will remove it from the Grid and Graph timeline. 0816 an stop data 0816 Out of Room This event disp lays the Out of Room time documented in the Surgical Log. Deleting this event will not remove it from the log but will remove it from the Grid and Graph timeline. 0818 An Stop 0818 Hand-off to Receiving Clinic marline Meds Name Total lidocaine (XYLOCAINE) 2% injection 60 mg propofol (DIPRIVAN) 10??mg/mL injection 400 mg lactated ringers infusion 400 mL * Agents Name O2 Inspired O2 N2O Inspired N2O * Blood No blood administrations on file. Lines, Drains, and Airways Type Details Placement Removal OB Wound 02/29/12; 1445; Yes; 1; Left:; gluteal; ulceration, fissure 02/29/12 1445 by Janice Crow, RN Supraglottic Airway Type: nasal cannula; Confirmation: end tidal CO2, satisfactory chest rise 08/06/24 0725 by Senait Salgado AA-C 08/06/24 0838 by Radha Auguste RN Peripheral IV Orientation: Left, Posterior; Location: Hand; Gauge: 20 gauge; Insertion Attempts: 1 (placed by JIE Mason) 08/06/24 0735 by Marilynn Pate RN 08/06/24 0838 by Radha Auguste RN documented in this encounter Social History [...] OR Notes * Anesthesia Postprocedure Evaluation - Senait Salgado AA-C - 08/06/2024 8:21 AM CDT Post Anesthesia Evaluation Vitals: Vitals Value Taken Time BP 109/51 08/06/24 0818 Temp 36.2 ??C 08/06/24 0818 Resp 18 08/06/24 0818 SpO2 95 % 08/06/24 0818 Pulse 75 08/06/24 0818 Heart Rate Pain Rating: Anesthesia Post Evaluation Patient location during evaluation: PACU Patient participation: patient was able to participate in the post op evaluation Level of consciousness: 1 = not alert but arousable by minor stimulation to obey, answer or respond(age appropriate) Pain management: adequate Airway patency: patent Nausea or Vomiting: none Cardiovascular status: regular rate and rhythm Respiratory status: no respiratory symptoms Hydration status: well hydrated No notable events documented. GEOFFREY Joseph * Anesthesia Handoff - Senait Salgado AA-C - 08/06/2024 8:18 AM CDT Post-Anesthetic transfer of care report [...] questions and acknowledgement of understanding. Vital Signs: Vitals Value Taken Time BP 109/51 08/06/24 0818 Temp 36.2 ??C 08/06/24 0818 Resp 18 08/06/24 0818 SpO2 95 % 08/06/2418 Pulse 75 08/06/24 0818 Heart Rate 8:20 AM GEOFFREY Joseph * Anesthesia Preprocedure Evaluation - Louis Klein MD - 08/06/2024 8:01 AM CDT Relevant Problems RENAL (+) JORGE (acute kidney injury) Anesthesia Evaluation Anesthesia Plan ASA Final: 2 MAC Intravenous induction NPO status > 4 hours Anesthetic plan and risks discussed with Patient. Plan discussed with Anesthesiologist Treatment Technician. Smoking Compliance patient did not smoke on day of surgery GI Lab Pre-Anesthesia Evaluation - Long Form 08/06/2024 8:02 AM Name: Edgardo Elkins Age: 53 y.o. Sex: male [facility]: [id number] Procedure: Procedure(s): CHECKOUT POUCHOSCOPY Surgeons/Assistants: Surgeons and Role: * Jessica Bejarano MD - Primary Allergies Allergen Reactions Infliximab Rash Other reaction(s): Sneezing flushed face Medications Prior to Admission Medication Sig Dispense Refill Last Dose ergocalciferol (VITAMIN D2) 50,000 unit capsule TAKE 1 CAPSULE BY MOUTH EVERY 7 DAYS FOR 60 DAYS, THEN 1 CAPSULE (50,000 UNITS) EVERY 30 DAYS. 12 Capsule 1 Past Week risankizumab-rzaa (Skyrizi) 360 mg/2.4 mL (150 mg/mL) wearable injector Inject 2.4 mL (360 mg) by subcutaneous injection every 8 weeks. 2.4 mL 5 Past Month montelukast (SINGULAIR) 10 mg tablet Take 10 mg by mouth daily. Past Week risankizumab-rzaa (SKYRIZI IV) Inject 600 mg by intravenous injection. Administer 600 mg IV on weeks 0, 4, and 8. Past Month budesonide (ENTOCORT EC) 3 mg Enteric Coated 24 hour capsule TAKE 3 CAPSULES (9 MG) BY MOUTH DAILY.270 Capsule 3 omeprazole (PriLOSEC) 40 mg Capsule, Delayed Release(E.C.) Take 40 mg by mouth daily. Past Week testosterone cypionate (DEPO-TESTOSTERONE) 200 mg/mL Oil INJECT 1ML INTRAMUSCULARLY WEEKLY Past Week zolpidem (AMBIEN) 5 mg tablet TAKE 1 TABLET BY MOUTH AT BEDTIME NEEDED FOR 30 DAYS Past Week ondansetron (ZOFRAN) 4 mg Tablet Take 1 Tablet (4 mg) by mouth every 8 hours as needed for Nausea/Emesis. 15 Tablet None Past Week TESTOSTERONE, BULK, MISC 1 mL by Misc.(Non-Drug; Combo Route) route. Past Week hyoscyamine ER 0.375 mg tablet,extended release,12 hr TAKE 1 TABLET (0.375 MG) BY MOUTH EVERY 12 HOURS NEEDED FOR DISCOMFORT. 60 Tablet 1 OTHER terbinafine HCL (LamISIL) 250 mg tablet Take 250 mg by mouth daily. Syringe with Needle, Disp, (BD Luer-Jesusita Syringe) 3 mL 23 gauge x 1 1/2 Syringe For use with B12 injections 12 Each 2 SOLU-MEDROL, PF, 40 mg/mL Recon Soln ADMINISTER 40 MG VIA SLOW INTRAVENOUS PUSH IN CASE OF SEVERE ALLERGICREACTION. 1 Each 0 BD PRECISIONGLIDE 25 gauge x 1 Needle USE DIRECTED TO ADMINISTER SOLU CORTEF 5 Each 1 diphenhydrAMINE (BENADRYL) 50 mg/mL Solution ADMINISTER 25 MG VIA SLOW INTRAVENOUS PUSH IN CASE OF SEVERE ALLERGICREACTION. DISCARD EXCESS 1 mL 0 Current Facility-Administered Medications Medication Dose Route Frequency Provider Last Rate Last Admin lactated ringers infusion IV pre-proc continuous Jessica Bejarano MD 125 mL/hr at 08/06/24 0750 Restarted at 08/06/24 0751 Facility-Administered Medications Ordered in Other Encounters Medication Dose Route Frequency Provider Last Rate Last Admin lidocaine 2 % (XYLOCAINE) injection IV intra-proc PRN Damian, Senait W, AA-C 60 mg at 08/06/24 0757 propofoL (DIPRIVAN) injection IV intra-proc PRN Damian, Senait W, AA-C 30 mg at 08/06/24 0801 Patient Active Problem List Diagnosis Date Noted Vitamin D deficiency 01/29/2019 Abdominal pain 06/26/2012 Inflammatory bowel disease 06/26/2012 Ulcerative colitis 02/23/2012 Pouchitis 02/23/2012 Acute bronchitis 02/23/2012 SIRS (systemic inflammatory response syndrome) 02/23/2012 Metabolic acidosis 02/23/2012 Sepsis, unspecified 02/23/2012 JORGE (acute kidney injury) 02/23/2012 Hyponatremia 02/22/2012 Abdominal pain 02/22/2012 Past Medical History: Diagnosis Date Arthritis Asthma as a child Injury of face and neck herniated disk Ulcerative colitis Unspecified adverse effect of anesthesia violent after 1st surgery Past Surgical History: Procedure Laterality Date HX COLECTOMY 2002 HX HIP REPLACEMENT, TOTAL Left 10/08/2017 ND COLONOSCOPY FLX DX W/COLLJ SPEC WHEN PFRMD 12/08/2009 COLONOSCOPY performed by LOUISE RIZO at [facility] ND COLONOSCOPY FLX DX W/COLLJ SPEC WHEN PFRMD 06/09/2014 COLONOSCOPY performed by Lane Ryan MD at [facility] ND DILAT RCT STRIX SPX UNDER ANES OTH/THN LOCAL 06/12/2012 RECTAL STRICTURE DILATATION performed by Lane Ryan MD at [facility] ND ENDOSCOPY UPPER SMALL INTESTINE 06/12/2012 SMALL BOWEL ENTEROSCOPY performed by Lane Ryan MD at [facility] ND ENDOSCOPY UPPER SMALL INTESTINE N/A 08/24/2017 SMALL BOWEL ENTEROSCOPY performed by Lane Ryan MD at [facility] ND ENDOSCOPY UPPER SMALL INTESTINE W/BIOPSY 02/28/2012 BOWEL SMALL BIOPSY ENDOSCOPIC performed by Lane Ryan MD at [facility] ND ESOPHAGOGASTRODUODENOSCOPY TRANSORAL DIAGNOSTIC 02/28/2012 ESOPHAGOGASTRODUODENOSCOPY performed by Lane Ryan MD at [facility] ND NDSC EVAL INTSTINAL POUCH DX W/COLLJ SPEC SPX 02/16/2012 POUCHOSCOPY performed by Louise Rizo MD at [facility] ND NDSC EVAL INTSTINAL POUCH DX W/COLLJ SPEC SPX N/A 08/15/2022 POUCHOSCOPY performed by Annette Whitney MD at [facility] ND SIGMOIDOSCOPY FLX DX W/COLLJ SPEC BR/WA IF PFRMD 02/16/2012 SIGMOIDOSCOPY FLEXIBLE performed by Louise Rizo MD at [facility] ND SIGMOIDOSCOPY FLX DX W/COLLJ SPEC BR/WA IF PFRMD N/A 06/12/2020 CHECKOUT SIGMOIDOSCOPY FLEXIBLE performed by Annette Whitney MD at [facility] Social History Tobacco Use Smoking status: Former Current packs/day: 0.00 Average packs/day: 0.5 packs/day for 10.0 years (5.0 ttl pk-yrs) Types: Cigarettes Start date: 06/09/2001 Quit date: 06/09/2011 Years since quittin.1 Smokeless tobacco: Never Tobacco comments: off & on Substance Use Topics Alcohol use: Yes Comment: occ Family History Problem Relation Name Age of Onset Heart Disease Father Hypertension Mother Healthy Sister Healthy Brother Colon Cancer Neg Hx Previous Anesthesia Problems/Concerns: No anesthesia problems/complications Review of Systems Cardiovascular: negative Respiratory: negative Gastroenterology: negative Bowel Prep:Yes PHYSICAL EXAM BP (!) 165/86 (BP Location: Right arm, Patient Position (BP): Sitting) Pulse 88 Temp 36.4 ??C (Temporal) Resp 18 Ht 5' 9 (1.753 m) Wt 80.8 kg (178 lb 3.2 oz) SpO2 96% BMI 26.32 kg/m?? Weight: Weight: 80.8 kg (178 lb 3.2 oz) (08/06/24 0727) Height: Ht Readings from Last 1 Encounters: 08/06/24 5' 9 (1.753 m) BMI: Body mass index is 26.32 kg/m??. Airway: normal range of motion: Airway Class: III (soft palate, base of uvula visible); None Lungs: clear to auscultation bilaterally, normal respiratory effort Heart: regular rate and rhythm, S1, S2 normal, no murmur, click, rub or gallop Neuro: alert, oriented x 3, no defects noted in general exam. Vascular Access: Peripheral Line LABS Lab Results Component Value Date WBC 6.7 02/12/2024 HGB 12.7 (L) 02/12/2024 HGB 15.0 07/29/2021 HCT 44.7 02/12/2024 HCT 49.4 07/29/2021 PLT 381 02/12/2024 MCV 68.6 (L) 02/12/2024 MCV 81.7 07/29/2021 Lab Results Component Value Date NA 137 02/12/2024 K 4.4 02/12/2024 CL 103 02/12/2024 CO2 27 02/12/2024 CA 9.1 02/12/2024 BUN 12 02/12/2024 CREAT 1.18 02/12/2024 GLUCOSE 95 02/12/2024 ANIONGAP 10 05/20/2020 BCRATIO SEE NOTE: 02/12/2024 No results found for: INR , PT , PROTIMEPOC No results found for: HCGURPOC , HCGQUALUR , HCGQUAL , HCGQUANT , HCGINTACT Lab Results Component Value Date GLUCPOC 129 (H) 03/02/2012 EKG: EKG not indicated today Other Studies/Considerations: None Postprocedure pain management discussed yes Smoking/Tobacco Counseling: None Recommendations: None ASA Physical Status: ASA 2 - Patient with mild systemic disease with no functional limitations I have seen and examined this patient and confirm that all data is current and accurate. Yes Choice of Anesthesia/Anesthesia Plan: Proceed, General, and Routine Monitoring I have discussed the anesthetic options and the risks/benefits with the patient/family. Questions have been solicited and answered. Yes Louis Klein MD documented in this encounter Plan of Treatment Upcoming Encounters Date Type Department Care Team (Late st Contact Info) Description 02/13/2025 10:30 AM CDT Office Visit [facility] [place] [address] [place] [address] Kitty Dover ANP [address] [place] [address] documented as of this encounter [...] Continue from Pre-Op 08/06/2024 7:50 AM CDT 12 5 mL/hr New Bag 08/06/2024 7:35 AM CDT 125 mL/hr lidocaine 2 % (XYLOCAINE) injection IV, INTRA-PROCEDURE PRN, Starting on Mon08/06/24 at 0757, Until Mon08/06/24 at 0821, Routine, Anesthesia Intra-op Given 08/06/2024 7:57 AM CDT 60 mg propofoL (DIPRIVAN) injection IV, INTRA-PROCEDURE PRN, Starting on Mon08/06/24 at 0757, Until Mon08/06/24 at 0821, Anesthesia Intra-op Given 08/06/2024 8:13 AM CDT 20 mg Given 08/06/2024 8:10 AM CDT 30 mg Given 08/06/2024 8:07 AM CDT 20 mg documented in this encounter Additional Health Concerns Assessment Noted Time PHQ-9 Depression Total Score: 2 12/08/19 23 11:00 AM PARA EDUCATOR documented as of this encounter Care Teams Director Title Relationship Specialty Start Date End Date Jasiel Freeman MD [address] [place] [phone] PCP - General Family Practice 08/15/17 documented as of this encounter
--- OUTSIDE RECORDS SUMMARY | 2024-10-24 05:28 | XMS_ITS | Encounter Summary ---
Author Organization [facility] Address [address] [place] [address] Care Team Providers Care Copy Worker Name Role Phone Jasiel Freeman MD Primary Care Provider Encounter Details Date Type Department Care Team (Late st Contact Info) Description 08/12/2022 Orders Only [facility] [address] [facility] [address] [place] [address] Annette Whitney MD [address] [facility] [address] [place] [address] Social History Tobacco Use Types Packs/Day Years [...] Description 02/13/2025 10:30 AM CDT Office Visit [facility] [place] [address] [place] [address] Kitty Dover ANP [address] [place] [address] documented as of this encounter Visit Diagnoses Not on filedocumented in this encounter Care Teams Copy Worker Relationship Specialty Start Date End Date Jasiel Freeman MD [address] [place] [phone] PCP - General Family Practice 08/15/17 documented as of this encounter
--- OUTSIDE RECORDS SUMMARY | 2024-10-24 05:28 | XMS_ITS | Encounter Summary ---
Author Organization [facility] Address [address] [place] [address] Care Team Providers Care Bin Worker Name Role Phone Jasiel Freeman MD Primary Care Provider Reason for Visit * Reason Comments Med Refill Encounter Details Date Type Department Care Team (Late st Contact Info) Description 07/16/2022 Refill [facility] Gastroenterology [facility] [address] [facility] [address] [place] [address] Annette Whitney MD [address] [facility] [address] DIV [place] [phone] Social History Tobacco Use Types Packs/Day Years [...] * Telephone Encounter - Reta Galindo - 07/18/2022 8:41 AM CDT TEQUILA- 08/02/21 ROV- 07/21/22 Medication pended, please sign if appropriate. documented in this encounter Plan of Treatment Upcoming Encounters Date Type Department Care Team (Late st Contact Info) Description 02/13/2025 10:30 AM CDT Office Visit [facility] [place] [address] [place] [address] Kitty Dover ANP [address] [place] [address] [place] [address] documented as of this encounter Visit Diagnoses Not on filedocumented in this encounter Care Teams Bin Worker Relationship Specialty Start Date End Date Jasiel Freeman MD [address] [place] [phone] PCP - General Family Practice 08/15/17 documented as of this encounter
--- OUTSIDE RECORDS SUMMARY | 2024-10-24 05:28 | XMS_ITS | Encounter Summary ---
Author Organization [facility] Address [address] [place] [address] Care Team Providers Care Loss Prevention Guard Name Role Phone Jasiel Freeman MD Primary Care Provider Encounter Details Date Type Department Care Team (Late st Contact Info) Description 08/08/2022 Specialty Pharmacy [facility] - [address] [place] [address] Jameson Borja, PHARMACIST Social History [...] Progress Notes * Jameson Borja, PHARMACIST - 08/08/2022 4:26 PM CDT [facility] Patient Name: [...] orders: No labs needed Nursing Provided by [facility] Therapy Specific Entyvio (vedolizumab) The most common infusion reactions of Entyvio include: Common cold Headache Joint pain Nausea Fever Infections of the nose and throat Tiredness Cough Bronchitis Flu Back pain Rash Itching Sinus infection Throat pain Pain in extremities Note: PRO SHOP ATTENDANT to observe patient during infusion and monitor [...] dispense? No, last negative TB test 07/29/21 (asking Irina to letthe patient know to get a new TB test) Note: Pharmacy Information Adherence issues (reported or [...] No Patient requires delivery to cover through 08/09/22 Pharmacy to send Entyvio + IV supplies Permission to leave delivered package? Yes Delivery Instructions: deliver 07/1722 via air traffic supervisor Note: General Information for this assessment provided by Epic Record HIPAA contact identified: Yes Note: ???Welcome Packet?? been provided to the patient Yes Note: Provided with initial delivery / via [facility] Additional Notes Pharmacy communicated/coordinated with MD regulatory affairs associate? Yes Follow up notes for next encounter? [...] [place] [address] [place] [phone] Kitty Dover, MIRTA [address] [place] [address] documented as of this encounter Visit Diagnoses Not on filedocumented in this encounter Care Teams Loss Prevention Guard Relationship Specialty Start Date End Date Jasiel Freeman MD [address] [place] [phone] PCP - General Family Practice 08/15/17 documented as of this encounter
--- OUTSIDE RECORDS SUMMARY | 2024-10-24 05:28 | XMS_ITS | Encounter Summary ---
Author Organization [facility] Address [address] [place] [address] Care Team Providers Care Regulatory Law Specialist Name Role Phone Jasiel Freeman MD Primary Care Provider Reason for Visit * Reason Comments Med Refill Encounter Details Date Type Department Care Team (Late st Contact Info) Description 12/30/2022 Refill [facility]astro[facility] [address] [facility] [address] [place] [address] Annette Whitney MD [address] [facility] [address] [place] [address] Social History Tobacco Use Types Packs/Day Years [...] Coronavirus/COVID-19? 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 Yes Assessment/Recommendations/Plan: Edgardo Elkins is a 52 y.o. 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 Last pouchoscopy was 07/2022 with inflammation in the pr pouch ileum, changed to skirizi. Has flare after antibiotics and change to skirizi. FMLA paperwork updated today. Check c. Diff, repeat labs If LFTs OK proceed with skirizi, monitor for recurrent back pain. If c. Diff positive then treat Add hyoscyamine BID for cramping Discussed anusol suppository, he does not want this. Elevated LFTs- repeat labs, added CK. Vitamin B12 deficiency - taking OTC supplement. [...] Continue Vitamin D and Vitamin B12 Recommendations: today: Blood work Stool test Start hyoscyamine twice per day If the blood work looks OK will proceed with Skirizi #2. Keep hydrated, try some gatorade to help with fluids. Let Irina know how you are doing when she sees you on Monday. 6 weeks follow up with Kitty. documented in this encounter Plan of Treatment Upcoming Encounters Date Type Department Care Team (Late st Contact Info) Description 02/13/2025 10:30 AM CDT Office Visit [facility] [place] [address] [facility] [address] [place] [phone] Kitty Dover ANP [address] [facility] [address] [place] [address] documented as of this encounter Visit Diagnoses Not on filedocumented in this encounter Additional Health Concerns Assessment Noted Time PHQ-9 Depression Total Score: 2 12/08/19 23 11:00 AM MINE MOTOR ENGINEER documented as of this encounter Care Teams Regulatory Law Specialist Relationship Specialty Start Date End Date Jasiel Freeman MD [address] [place] [phone] PCP - General Family Practice 08/15/17 documented as of this encounter
--- OUTSIDE RECORDS SUMMARY | 2024-10-24 05:28 | XMS_ITS | Encounter Summary ---
Author Organization [facility] Address [address] [place] [address] Care Team Providers Care Bariatric Coordinator Name Role Phone Jasiel Freeman MD Primary Care Provider Reason for Visit * Reason Comments Med Change Request Encounter Details Date Type Department Care Team (Late st Contact Info) Description 12/08/2022 [facility] IBD [facility]astro[facility]ology [facility] [address] [facility] [address] [place] [address] Annette Whitney MD [address] [facility] [address] [place] [phone] Social History Tobacco Use Types Packs/Day Years [...] Coronavirus/COVID-19? No / Unsure 12/08/2022 10:51 AM PRODUCTION POSTING CLERK documented as of this encounter Plan of Treatment Upcoming Encounters Date Type Department Care Team (Late st Contact Info) Description 02/13/2025 10:30 AM CDT Office Visit [facility] IBD and Gastroenterology [facility] [place] [address] [place] [address] Kityt Dover ANP [address] [place] [address] documented as of this encounter Visit Diagnoses Not on filedocumented in this encounter Additional Health Concerns Assessment Noted Time PHQ-9 Depression Total Score: 2 12/08/19 23 11:00 AM PRODUCTION POSTING CLERK documented as of this encounter Care Teams Bariatric Coordinator Relationship Specialty Start Date End Date Jasiel Freeman MD [address] [place] [phone] PCP - General Family Practice 08/15/17 documented as of this encounter
--- OUTSIDE RECORDS SUMMARY | 2024-10-24 05:28 | XMS_ITS | Encounter Summary ---
Author Organization [facility] Address [address] [place] [address] Care Team Providers Care Apartment Rental Agent Name Role Phone Jasiel Freeman MD Primary Care Provider Reason for Visit * Reason Onset Date Comments Home Visit 01/23/2023 Skyrizi Dose 3 Encounter Details Date Type Department Care Team (Late st Contact Info) Description 01/23/2023 Patient Outreach [facility] - [address] [place] [address] Ebony Cruz, RN Home Visit (Skyrizi Dose 3) Social History Tobacco Use Types Packs/Day Years [...] Taken Comments Blood Pressure - - Pulse 74 01/23/2023 3:00 PM CDT Temperature 36.6 ??C (97.9 ??F) 01/23/2023 3:00 PM CD T Respiratory Rate 16 01/23/2023 3:00 PM CDT Oxygen Saturation 95% 01/23/2023 3:00 PM CDT Inhaled Oxygen Concentration - - Weight - - Height - - Body Mass Index - - documented in this encounter Miscellaneous Notes * Telephone Encounter - Ebony Cruz RN - 01/25/2023 1:10 AM CDT Images from the original note were not included. [facility] Skyrizi Infusion Dose 3 Edgardo Elkins 1970 [address] [facility] [address] Provider - Ebony Cruz RN 01/23/2023 Visit start 1400 Visit end 1545 Home service agreement provided Verification of Benefits / cost of services provided Patient Bill of Rights and Responsibilities provided Contact numbers provided including after hours numbers [...] therapy, patient/ caregiver response to instruction - understood.Yes Confirmed with patient that no insurance changes since last dose given. Yes Patient states that no anticipated insurance or job changes before next infusion. Yes Pt informed on importance of notifying [facility] immediately if any unexpected insurance changes occur.Yes No problem observed with learning needs - No cultural, cheondoism, or language barriers to learning Patient and CG are motivated to learn Patient and CG are willing and accepting of necessary care GI Patient ASSESSMENT Ambulatory, pleasant/in good spirits, reports feeling except well, no s&s infection. HEENT: no sx or concerns Cardiovascular: VSS, no sx or concerns Pulmonary/Chest: Respirations even and unlab GI: Abd soft, non-tender : Urinating normal character/amt/frequency, no sx or concerns Musculoskeletal: Normal range of motion, no sx / concerns Neurological: alert and oriented to person, place, and time. Skin: Skin is warm and dry, color pink Pain: 0/10 Pain: if yes, details of pain will be documented on flowsheet: N 1. residential assessment and implementation of infusion therapy. Teaching of patient/caregiverrole in infusion therapy. Goal : Infusion therapy will be delivered per physicians orders. Infusion access will remain patent. Patient and caregiver will demonstrate an understanding of teaching and learning goals related to infusion therapy. Intervention : 24 gauge PIV placed to L forearm without difficulty. Flushed PIV with 10 ml NS easily with positive blood return. Skyrizi 600 mg added to 250 ml NS. Base line vital signs checked. Infusion completed in 60 min. 30 ml ns used to flush remainder of Skyrizi thru line. PIV DC'd, bandaid applied. 2. Management of home medication. Goal: Patient/caregiver will verbalized understanding of medication regime. Intervention: Patient manages all medications except Skyrizi. Patient takes medication as ordered, knows purpose, basic side effects, and adverse reactions. Patient knows how to reorder medications. [facility] will [...] Plan - indefinite due to disease process. No additional home visits required at this time documented in this encounter Plan of Treatment Upcoming Encounters Date Type Department Care Team (Late st Contact Info) Description 02/13/2025 10:30 AM CDT Office Visit [facility] [place] [address] [place] [address] Kitty Dover ANP [address] [place] [address] documented as of this encounter Visit Diagnoses Not on filedocumented in this encounter Additional Health Concerns Assessment Noted Time PHQ-9 Depression Total Score: 2 12/08/19 23 11:00 AM SPECIAL NEEDS CAREGIVER documented as of this encounter Care Teams Apartment Rental Agent Relationship Specialty Start Date End Date Jasiel Freeman MD [address] [place] [phone] PCP - General Family Practice 08/15/17 documented as of this encounter
--- OUTSIDE RECORDS SUMMARY | 2024-10-24 05:28 | XMS_ITS | Encounter Summary ---
Author Organization [facility] Address [address] Avila: [place] [address] Care Team Providers Care Emergency Medical Technician Name Role Phone Jasiel Freeman MD Primary Care Provider Encounter Details Date Type Department Care Team (Latest Contact Info) Description 12/08/2022 Travel Social History Tobacco Use Types Packs/Day [...] Coronavirus/COVID-19? No / Unsure 12/08/2022 10:51 AM DATA GOVERNANCE CONSULTANT documented as of this encounter Plan of Treatment Upcoming Encounters Date Type Department Care Team (Late st Contact Info) Description 02/13/2025 10:30 AM CDT Office Visit [facility] [place] [address] [place] [address] Kitty Dover, ANP [address] [phone] documented as of this encounter Visit Diagnoses Not on filedocumented in this encounter Additional Health Concerns Assessment Noted Time PHQ-9 Depression Total Score: 2 12/08/19 23 11:00 AM DATA GOVERNANCE CONSULTANT documented as of this encounter Care Teams Emergency Medical Technician Relationship Specialty Start Date End Date Jasiel Freeman MD [address] [place] [phone] PCP - General Family Practice 08/15/17 documented as of this encounter
--- OUTSIDE RECORDS SUMMARY | 2024-10-24 05:28 | XMS_ITS | Encounter Summary ---
Author Organization [facility] Address [address] [place] [address] Care Team Providers Care Lumber Press Operator Name Role Phone Jasiel Freeman MD Primary Care Provider [phone] Encounter Details Date Type Department Care Team (Late st Contact Info) Description 02/27/2024 Orders Only [facility] [address] [facility] [address] [place] [address] Jessica Bejarano MD [address] [address] Social History Tobacco Use Types Packs/Day Years [...] as of this encounter Miscellaneous Notes * Result Encounter Note - Kitty Dover ANP - 02/28/2024 1:59 PM CDT [facility] 343 documented in this encounter Plan of Treatment Upcoming Encounters Date Type Department Care Team (Late st Contact Info) Description 02/13/2025 10:30 AM CDT Office Visit [facility] [place] [address] [place] [address] Kitty Dover ANP [address] [place] [address] documented as of this encounter Procedures Procedure Name Priority Date/Time Associated Diagnosis Comments CALPROTECTIN, FECAL Routine 02/23/2024 1 2:08 PM CDT documented in this encounter Results * CALPROTECTIN, FECAL (02/23/2024 12:08 PM CDT) Stool STOOL SPECIMEN / Unknown Jessica Bejarano MD BODY FLUIDS AND S TOOLS [facility]# [id number] [address] [place] [address] documented in this encounter Visit Diagnoses Not on filedocumented in this encounter Additional Health Concerns Assessment Noted Time PHQ-9 Depression Total Score: 2 12/08/19 23 11:00 AM METAL TRIM ERECTOR documented as of this encounter Care Teams Lumber Press Operator Relationship Specialty Start Date End Date Jasiel Freeman MD [address] [place] [phone] PCP - General Family Practice 08/15/17 documented as of this encounter
--- OUTSIDE RECORDS SUMMARY | 2024-10-24 05:28 | XMS_ITS | Encounter Summary ---
Author Organization [facility] Address [address] [place] [address] Care Team Providers Care Driver'S Education Instructor Name Role Phone Jasiel Freeman MD Primary Care Provider Reason for Referral * Radiology Services (Routine) - Closed Specialty Diagnoses / Procedures Referred By Contac t Referred To Contact Diagnoses Elevated LFTs Procedures US LIVER Jailene Whitney MD [address] [facility] [place] [address] Referral ID Status Reason Start Date Expiration Date Visits Re quested Visits Authorized [id number] Closed 12/09/2022 01/09/2024 1 1 UIT BOARD INSPECTOR Reason for Visit * Reason Onset Date Comments Results 12/09/2022 Encounter Details Date Type Department Care Team (Late st Contact Info) Description 12/09/2022 Telephone [facility] [address] [address] Jailene Whitney MD [address] [facility] [place] [address] Results Social History Tobacco Use Types Packs/Day [...] Coronavirus/COVID-19? No / Unsure 12/15/2022 2:36 PM CIRCUIT BOARD INSPECTOR documented as of this encounter Miscellaneous Notes * Telephone Encounter - Nilda Anne - 12/21/2022 2:18 PM CST Giovanni Reynoso, You can now call your home health nurse and schedule your next infusion. Nilda Barone Lead Marketing And Outreach Coordinator [facility] IBD [facility] Gastroenterology [phone] (Fax) UIT BOARD INSPECTOR * Addendum Note - Jailene Whitney MD - 12/21/2022 7:50 AM CSTAddended by: JAILENE WHITNEY on: 12/21/2022 07:50 AM Modules accepted: Orders UIT BOARD INSPECTOR * Telephone Encounter - Jailene Whitney MD - 12/21/2022 7:47 AM CIRCUIT BOARD INSPECTOR Liver tests and US look better. We can do skirizi #2. Please repeat hepatic panel in 3 weeks. Please let us know if back pain again after infusion. UIT BOARD INSPECTOR * Telephone Encounter - Joselyn Gore RN - 12/09/2022 11:52 AM CIRCUIT BOARD INSPECTOR Patient called back in. We went over plan, he is agreeable. He is headed back to [facility] right now to drop off his stool sample for cdiff test. Wants to report the hyoscyamine has helped the abd cramps, but he is still having frequently waterydiarrheas this AM which is preventing him from going to work. UIT BOARD INSPECTOR * Telephone Encounter - Joselyn Gore RN - 12/09/2022 11:28 AM CIRCUIT BOARD INSPECTOR Called, no answer. Sending [employer]. Message sent to home infusion team. UIT BOARD INSPECTOR * Telephone Encounter - Jailene Whitney MD - 12/09/2022 9:24 AM CIRCUIT BOARD INSPECTOR Can you call and let him know that liver tests are still a little bit elevated. I recommend we 1) HOLD skirizi for 1 week (until we repeat labs and get ultrasound) 2) Repeat labs in 1 week 3) Ultrasound of the liver UIT BOARD INSPECTOR documented in this encounter Plan of Treatment Upcoming Encounters Date Type Department Care Team (Late st Contact Info) Description 02/13/2025 10:30 AM CDT Office Visit [facility] [place] [address] [place] [address] Kitty Dover, MIRTA [address] [place] [address] documented as of this encounter Procedures Procedure Name Priority Date/Time Associated Diagnosis Comments TEST IN [facility] Routine 01/20/2023 12:2 2 PM CDT HEPATIC FUNCTION PANEL Routine 01/20/2023 12:22 PM CDT Elevated LFTs HEPATITIS B SURFACE ANTIGEN Routine 12/14/2022 9:41 AM CIRCUIT BOARD INSPECTOR Elevated LFTs HEPATITIS A IGM Routine 12/14/2022 9:41 AM CIRCUIT BOARD INSPECTOR Elevated LFTs ALKALINE PHOSPHATASE ISOENZYMES Routine 12/14/2022 9:41 AM CIRCUIT BOARD INSPECTOR Elevated LFTs HEPATIC FUNCTION PANEL Routine 12/14/2022 9:41 AM CIRCUIT BOARD INSPECTOR Elevated LFTs documented in this encounter Results * TEST IN [facility] (01/20/2023 12:22 PM CDT) Pathologist [facility] REPORT/SPECIMEN COMMENT [facility] Comment: Whole blood, unspun or partially spun gel barrier tube was received more than 6 hours since collection. A false elevation of K, Phos and LD as well as a false decrease in glucose may occur due to prolonged contact with red cells. Test Performed at: [facility] [address] [place], [place] ??[phone] Conner Darby MD 01/20/2023 12:2 2 PM CDT 01/20/2023 12:23 PM CDT Jailene Whitney MD [facility] Organization Address City/State/ZIP Co de Phone Number [facility] [phone] [facility] [address] [place] [address] * HEPATIC FUNCTION PANEL (01/20/2023 12:22 PM CDT) TOTAL PROTEIN 7.3 6.1 - 8.1 g/dL [facility] ALBUMIN 4.0 3.6 - 5.1 g/dL [facility] GLOBULIN 3.3 1.9 - 3.7 g/dL (calc) [facility] ALBUMIN/GLOBULIN RATIO 1.2 1.0 - 2.5 (calc) [facility] BILIRUBIN TOTAL 0.5 0.2 - 1.2 mg/dL [facility] BILIRUBIN DIRECT 0.1 < OR = 0.2 mg/dL [facility] BILIRUBIN INDIRECT 0.4 0.2 - 1.2 mg/dL (calc) [facility] ALKALINE PHOSPHATASE 67 35 - 144 U/L [facility] AST 15 10 - 35 U/L [facility] ALT 22 9 - 46 U/L [facility] Comment: Test Performed at: [facility] [address] [place], [place] ??[phone] Conner Darby MD Blood 01/20/2023 12:2 2 PM CDT 01/20/2023 12:23 PM CDT Jailene Whitney MD CHEMISTRY ORDE SHREYAS [facility] [phone] [facility] [address] [place] [address] * US LIVER (12/15/2022 3:44 PM CIRCUIT BOARD INSPECTOR) Anatomical Region Laterality Modality Abdomen Ultrasound 12/15/2022 3:53 PM CIRCUIT BOARD INSPECTOR Impressions 12/15/2022 4:08 PM CIRCUIT BOARD INSPECTOR IMPRESSION: 1. Cholelithiasis without sonographic evidence of acute cholecystitis. 2. Incidentally noted 6 mm nonobstructing stone in the midpole right kidney. DICTATION LOCATION: Location [address] [place] [address] Narrative 12/15/2022 4:08 PM CIRCUIT BOARD INSPECTOR EXAMINATION: LIMITED ABDOMINAL SONOGRAM ?? DATE: 12/15/2022 [...] right kidney. DICTATION LOCATION: Location 1 - [facility] Jailene Whitney MD ORDERABLES * HEPATITIS A IGM (12/14/2022 9:41 AM CIRCUIT BOARD INSPECTOR) HEPATITIS A IGM NON-REACTI VE NON-REACTI VE [facility] Comment: For additional information, please refer to http://education.T-System/faq/WTR573 (This link is being provided for informational/ educational purposes only.) FASTING:YES FASTING: YES Test Performed at: [facility] [address] [place], [place] ??[address] Conner Darby MD Blood 12/14/2022 9:41 AM CIRCUIT BOARD INSPECTOR 12/14/2022 9:42 AM CIRCUIT BOARD INSPECTOR Jailene Whitney MD CHEMISTRY ORDToño PRITCHETT Performing Organization Address City/[facility]/ZIP Co de Phone Number [facility] [phone] [facility] [address] * HEPATITIS B SURFACE ANTIGEN (12/14/2022 9:41 AM CIRCUIT BOARD INSPECTOR) [facility] HEPATITIS B SURFACE AG NON-REACTI VE NON-REACTI VE [facility] Comment: FASTING:YES FASTING: YES Test Performed at: [facility] ??[address] Conner Darby MD Blood 12/14/2022 9:41 AM CIRCUIT BOARD INSPECTOR 12/14/2022 9:42 AM CIRCUIT BOARD INSPECTOR Jailene Whitney MD CHEMISTRY ORDE SHREYAS Performing Organization Address [facility] Co de Phone Number [facility] [phone] [facility] [address] [place] [phone] * (ABNORMAL) HEPATIC FUNCTION PANEL (12/14/2022 9:41 AM CIRCUIT BOARD INSPECTOR) Pathologist [facility] TOTAL PROTEIN 7.0 6.1 - 8.1 g/dL [facility] ALBUMIN 3.3(L) 3.6 - 5.1 g/dL [facility] GLOBULIN 3.7 1.9 - 3.7 g/dL (calc) [facility] ALBUMIN/GLOBULIN RATIO 0.9(L) 1.0 - 2.5 (calc) [facility] BILIRUBIN TOTAL 0.7 0.2 - 1.2 mg/dL [facility] BILIRUBIN DIRECT 0.2 < OR = 0.2 mg/dL [facility] BILIRUBIN INDIRECT 0.5 0.2 - 1.2 mg/dL (calc) [facility] ALKALINE PHOSPHATASE 176(H) 35 - 144 U/L [facility] AST 28 10 - 35 U/L [facility] ALT 39 9 - 46 U/L [facility] Comment: FASTING:YES FASTING: YES Test Performed at: [facility] [address] [place], [place] ??[address] Conner Darby MD Blood 12/14/2022 9:41 AM CIRCUIT BOARD INSPECTOR 12/14/2022 9:42 AM CIRCUIT BOARD INSPECTOR Jailene Whitney MD [facility] [phone] [facility] [address] [place] [address] * (ABNORMAL) ALKALINE PHOSPHATASE ISOENZYMES (12/14/2022 9:41 AM CIRCUIT BOARD INSPECTOR) ALKALINE PHOSPHATASE 191(H) 35 - 144 U/L [facility], INTESTINAL ISOENZYMES 0(L) 1 - 24 % [facility] [place] [facility], BONE ISOENZYME 35 28 - 66 % [facility] [facility], LIVER ISOENZYMES 65 25 - 69 % [facility] [facility], Comment: Increased intestinal alkaline phosphatase can be seen in blood group O and B secretors and after fatty meals. PLACENTAL ISOENZYME 0 0 % [facility] [facility], Comment: FASTING:YES FASTING: YES Test Performed at: [facility], [address] [facility], [place] ??[phone] Kim Cancino MD,PhD,KATHRYN Blood 12/14/2022 9:41 AM CIRCUIT BOARD INSPECTOR 12/14/2022 9:42 AM CIRCUIT BOARD INSPECTOR Jailene Whitney MD CHEMISTRY SHELBY PRITCHETT [facility] [phone] [facility], [address] [place] [address] documented in this encounter Visit Diagnoses Diagnosis Elevated LFTs- Primary Other abnormal blood chemistry Elevated LFTs Other abnormal blood chemistry documented in this encounter Additional Health Concerns Infection Onset Date Last Indicated Resolved Time R/O C. diff 12/11/2022 12/09/2022 12/11/2022 1:26 PM CIRCUIT BOARD INSPECTOR Assessment Noted Time PHQ-9 Depression Total Score: 2 12/08/19 23 11:00 AM CIRCUIT BOARD INSPECTOR documented as of this encounter Care Teams Driver'S Education Instructor Relationship Specialty Start Date End Date Jasiel Freeman MD [address] [place] [phone] PCP - General Family Practice 08/15/17 documented as of this encounter
--- OUTSIDE RECORDS SUMMARY | 2024-10-24 05:28 | XMS_ITS | Encounter Summary ---
Author Organization [facility] Address [address] [place] [address] Care Team Providers Care Head Boys Tennis Coach Name Role Phone Jasiel Freeman MD Primary Care Provider Encounter Details Date Type Department Care Team (Late st Contact Info) Description 11/14/2022 Specialty Pharmacy [facility]fusion - [address] [place] [address] Belen Matt PHARMACIST Social History [...] Progress Notes * Belen Matt PHARMACIST - 11/14/2022 10:42 AM CST [facility] Patient Name: Edgardo Elkins Home Infusion Orders Medication: Skyrizi 600 mg IV on weeks 0, 4, and 8 Treating Diagnosis: ulcerative colitis Prescriber(s): Annette Martin MD Therapy Start Date: 11/15/22 Anticipated Therapy End Date: 01/10/23 Note: Pharmacist spoke with patient on 11/10/22 to confirm and coordinate delivery. Patient is awarehe is starting NEW therapy with Skyrizi (patient was previously on Entyvio. Last infusion date 10/18/22. MDO cleared infusion as soon as possible--no wash out period between the two biologics per Joselyn in MDO). Week 0 - 11/15/22 Week 4 - 12/13/22 (approx.) Week 8 - 01/10/23 (approx.) Vascular Access Device (VAD) Orders Type of VAD: PIV NS 10 mL: 10 mL before and after each dose and as needed for lab draws/line complications Pharmacy to dispense flushes, catheter supplies and all medically necessary infusion supplies untilcatheter is removed. Lab orders: No labs needed/ordered Nursing Provided by [facility] Therapy Specific Skyrizi Antibody formation: [...] Logistics Information for this assessment provided by [employer] record + patient + pharmacist, Jameson Jonh HIPAA contact identified? No Any changes to prescription/medical insurance or copay assistance? No Patient requires delivery to cover through 11/15/22 Pharmacy to send Skyrizi + IV supplies + JAYDA kit Delivery date: deliver 11/14/22 via same day acid conditioner Specific delivery Instructions: deliver after 6 pm Permission to leave delivered package? Yes Pharmacy [...] of complications Prevention of adverse drug events CLASSIFIER documented in this encounter Plan of Treatment Upcoming Encounters Date Type Department Care Team (Late st Contact Info) Description 02/13/2025 10:30 AM CDT Office Visit [facility]astro[facility]ology [facility] [place] [address] [place] [address] Kitty Dover ANP [address] [place] [address] [place] [address] documented as of this encounter Visit Diagnoses Not on filedocumented in this encounter Care Teams Head Boys Tennis Coach Relationship Specialty Start Date End Date Jasiel Freeman MD [address] [place] [address] PCP - General Family Practice 08/15/17 documented as of this encounter
--- OUTSIDE RECORDS SUMMARY | 2024-10-24 05:28 | XMS_ITS | Encounter Summary ---
Author Organization [facility] Address [address] [place] [address] Care Team Providers Care Insurance Marketing Rep Name Role Phone Jasiel Freeman MD Primary Care Provider [phone] Encounter Details Date Type Department Care Team (Late st Contact Info) Description 11/24/2023 External Device Data ST[facility] ABSTRACTION Provider, Abstract [...] Description 02/13/2025 10:30 AM CDT Office Visit [facility]astro[facility] [place] [address] [place] [address] Kitty Dover, MIRTA [address] [place] [address] documented as of this encounter Visit Diagnoses Not on filedocumented in this encounter Additional Health Concerns Assessment Noted Time PHQ-9 Depression Total Score: 2 12/08/19 23 11:00 AM MONTESSORI LEAD TEACHER documented as of this encounter Care Teams Insurance Marketing Rep Relationship Specialty Start Date End Date Jasiel Freeman MD [address] [place] [address] PCP - General Family Practice 08/15/17 documented as of this encounter
--- OUTSIDE RECORDS SUMMARY | 2024-10-24 05:28 | XMS_ITS | Encounter Summary ---
Author Organization [facility] Address [address] [place] [address] Care Team Providers Care Pit Steward Name Role Phone Jasiel Freeman MD Primary Care Provider Reason for Visit * Reason Comments Med Refill Encounter Details Date Type Department Care Team (Late st Contact Info) Description 04/24/2024 Refill [facility] IBD and Gastroenterology Center [address] [facility] [address] [place] [address] Kitty Dover, MIRTA [address] [facility] [address] [place] [address] Vitamin D deficiency Social History Tobacco Use Types Packs/Day Years [...] encounter Miscellaneous Notes * Telephone Encounter - King Dang - 04/24/2024 10:54 AM CDT IBD CENTER MEDICATION REFILL REQUEST Medicine being refilled: ergocalciferol (VITAMIN D2) 50,000 unit capsule Last Refill: 02/13/2020 QTY:17 RF: 0 TEQUILA: 01/22/2024 NOV: 08/01/2024 Safety Monitoring Labs UTD? yes Assessment/Recommendations/Plan: Continue Skyrizi OBI every 8 weeks. Labs at [facility]. Stool test to be sent home with you today - calpro. Pouchoscopy with Dr. Bejarano at any location Fall 2023 with mag citrate. Decrease budesonide 3mg to every other day. Continue dicyclomine as needed. Follow up in [address] Bejarano. documented in this encounter Plan of Treatment Upcoming Encounters Date Type Department Care Team (Late st Contact Info) Description 02/13/2025 10:30 AM CDT Office Visit [facility] IBD and Gastroenterology Center [place] [address] [facility] [address] [place] [address] Kitty Dover ANP [address] [place] [address] documented as of this encounter Visit Diagnoses Diagnosis Vitamin D deficiency Unspecified vitamin D deficiency documented in this encounter Additional Health Concerns Assessment Noted Time PHQ-9 Depression Total Score: 2 12/08/19 23 11:00 AM CONSTRUCTION PRODUCER documented as of this encounter Care Teams Pit Steward Relationship Specialty Start Date End Date Jasiel Freeman MD [address] [place] [phone] PCP - General Family Practice 08/15/17 documented as of this encounter
--- OUTSIDE RECORDS SUMMARY | 2024-10-24 05:28 | XMS_ITS | Encounter Summary ---
Author Organization [facility] Address [address] [place] [address] Care Team Providers Care Alley Worker Name Role Phone Jasiel Freeman MD Primary Care Provider Encounter Details Date Type Department Care Team (Late st Contact Info) Description 01/06/2023 Specialty Pharmacy [facility] Specialty and Home Infusion - [address] [place] [address] Annette Whitney MD [address] [facility] [address] [place] [address] Social History Tobacco Use Types Packs/Day Years [...] Coronavirus/COVID-19? No / Unsure 12/15/2022 2:36 PM COVERED BUCKLE ASSEMBLER documented as of this encounter Progress Notes * Carmen Meza - 01/06/2023 3:11 PM CDT [facility] [address] [facility], [place] [address] PH: [phone] FX: [phone] Prescription Transfer Notification Patient Name: Edgardo Elkins Thank you very much for the medication referral for the patient:Edgardo Elkins, for the following medication(s): Skyrizi The Prior Authorization has been obtained from the insurance provider and the medication has been approved through the following date 01/05/2024. However, the medication is required be filled by: [facility] Specialty The patient has been notified of the medication approval and that it will be delivered by the abovenamed specialty pharmacy. This note is written by: Carmen Meza documented in this encounter Plan of Treatment Upcoming Encounters Date Type Department Care Team (Late st Contact Info) Description 02/13/2025 10:30 AM CDT Office Visit [facility] IBD and Gastroenterology Center [place] [address] [facility] [address] [place] [address] Kitty Dover ANP [address] [place] [address] documented as of this encounter Visit Diagnoses Not on filedocumented in this encounter Additional Health Concerns Assessment Noted Time PHQ-9 Depression Total Score: 2 12/08/19 23 11:00 AM COVERED BUCKLE ASSEMBLER documented as of this encounter Care Teams Alley Worker Relationship Specialty Start Date End Date Jasiel Freeman MD [address] [place] [phone] PCP - General Family Practice 08/15/17 documented as of this encounter
--- OUTSIDE RECORDS SUMMARY | 2024-10-24 05:28 | XMS_ITS | Encounter Summary ---
Author Organization [facility] Address [address] [place] [address] Care Team Providers Care Tower Helper Name Role Phone Jasiel Freeman MD Primary Care Provider [phone] Encounter Details Date Type Department Care Team (Late st Contact Info) Description 10/11/2022 Specialty Pharmacy [facility] Specialty and Home Infusion - [address] [place] [address] Belen Matt PHARMACIST Social History [...] Progress Notes * Belen Matt PHARMACIST - 10/11/2022 12:42 PM CST [facility] Specialty & Home Infusion Patient Name: Edgardo Elkins Home Infusion Orders Medication: Entyvio 300 mg IV every 4 weeks Pre-infusion medication(s): Tylenol 1000 mg, Claritin 10 mg oral tablets (provided by patient if heshould need them) Treating Diagnosis: Ulcerative colitis Prescriber(s): Annette Whitney MD Therapy Start Date: 08/08/2019 Anticipated Therapy End Date: Ongoing Notes: Pharmacist spoke with patient and MD on 10/11/22 to confirm and coordinate delivery. MD has sent new order for the patient to start Skyrizi in place of Entyvio. The PA for Skyrizi was denied and an appeal by the MDO has been started. In the meantime, MD wants patient to continue Entyvio infusions until that appeal is approved for Skyrizi. Patient is aware of this as well. Pharmacy to dispense infusion delivery early this month due to upcoming snow storm + long holiday weekend. Patient's infusion appointment is 10/18/22. Vascular Access Device (VAD) Orders Type of VAD: PIV NS 10 mL: 10 mL before and after each dose and as needed for lab draws/line complications Pharmacy to dispense flushes, catheter supplies and all medically necessary infusion supplies untilcatheter is removed. Lab orders: No labs needed Nursing Provided by [facility] and Home Infusion [facility] Therapy Specific Entyvio (vedolizumab) The most common infusion reactions of Entyvio include: Common cold Headache Joint pain Nausea Fever Infections of the nose and throat Tiredness Cough Bronchitis Flu Back pain Rash Itching Sinus infection Throat pain Pain in extremities Note: PSYCHOLOGIST EDUCATIONAL to observe patient during infusion and monitor [...] Reema, Charissa, Eastern [place], Latin Maame, and Edmondson) False Persons who visit areas with a [...] No Patient requires delivery to cover through 10/18/22 Pharmacy to send Entyvio + IV supplies Permission to leave delivered package? Yes Delivery Instructions: deliver 10/12/22 via same day technical assistance consultant Note: General Information for this assessment provided by [facility] record + patient HIPAA contact identified: Yes Note: ???Welcome Packet?? been provided to the patient Yes Note: Provided with initial delivery / via [facility] Additional Notes Pharmacy communicated/coordinated with MD elevator constructor helper? Yes Follow up notes for next encounter? [...] of complications Prevention of adverse drug events ET CODE EXPERT documented in this encounter Plan of Treatment Upcoming Encounters Date Type Department Care Team (Late st Contact Info) Description 02/13/2025 10:30 AM CDT Office Visit [facility] IBD and Gastroenterology Center [place] [address] [facility] [address] [place] [address] Kitty Dover, MIRTA [address] [facility] [address] [place] [address] documented as of this encounter Visit Diagnoses Not on filedocumented in this encounter Care Teams Tower Helper Relationship Specialty Start Date End Date Jasiel Freeman MD [address] [place] [phone] PCP - General Family Practice 08/15/17 documented as of this encounter
--- OUTSIDE RECORDS SUMMARY | 2024-10-24 05:28 | XMS_ITS | Encounter Summary ---
Author Organization [facility] Address [address] [place] [address] Care Team Providers Care Fur Dresser Name Role Phone Jasiel Freeman MD Primary Care Provider Reason for Visit * Reason Onset Date Comments Home Visit 09/14/2022 Encounter Details Date Type Department Care Team (Late st Contact Info) Description 09/14/2022 Patient Outreach [facility] Specialty and Home Infusion - [address] [place] [address] Irina Wyatt, RN Home Visit [...] Sign Reading Time Taken Comments Blood Pressure 138/89 09/14/2022 3:30 PM SUGAR CANE PLANTING EQUIPMENT OPERATOR Pulse 84 09/14/2022 3:30 PM SUGAR CANE PLANTING EQUIPMENT OPERATOR Temperature 37.2 ??C (99 ??F) 09/14/2022 2:45 PM SUGAR CANE PLANTING EQUIPMENT OPERATOR Respiratory Rate 16 09/14/2022 2:45 PM SUGAR CANE PLANTING EQUIPMENT OPERATOR Oxygen Saturation 96% 09/14/2022 2:45 PM SUGAR CANE PLANTING EQUIPMENT OPERATOR Inhaled Oxygen Concentration - - Weight - - Height - - Body Mass Index - - documented in this encounter Miscellaneous Notes * Telephone Encounter - Irina Wyatt RN - 09/14/2022 9:27 PM CST Images from the original note were not included. [facility] Special[facility] Pharm[facility] Home Infusion NURSING follow up Leonidas Elkins 1970 [id number] [facility] [address] Provider - Irina Wyatt RN 09/14/2022 Visit start 1430 Visit end 1530 Contact numbers provided including after hours numbers [...] yes Pt informed on importance of notifying [facility] immediately if any unexpected insurance changes occur.yes No problem observed with learning needs - No cultural, temple, or language barriers to learning Patient and [...] normal mood and affect. Pain: 0 1. retirement assessment and implementation of infusion therapy. Teaching [...] reactions. Patient knows how to reorder medications. [facility] Specialty and Home Infusion Pharmacy will [...] in approximately 4 weeks for Entyvio infusion R CANE PLANTING EQUIPMENT OPERATOR documented in this encounter Plan of Treatment Upcoming Encounters Date Type Department Care Team (Late st Contact Info) Description 02/13/2025 10:30 AM CDT Office Visit [facility] IBD and Gastroenterology Center [place] [address] [place] [address] Kitty Dover, MIRTA [address] [facility] [address] [place] [address] documented as of this encounter Visit Diagnoses Not on filedocumented in this encounter Care Teams Fur Dresser Relationship Specialty Start Date End Date Jasiel Freeman MD [address] [place] [phone] PCP - General Family Practice 08/15/17 documented as of this encounter
--- OUTSIDE RECORDS SUMMARY | 2024-10-24 05:28 | XMS_ITS | Encounter Summary ---
Author Organization [facility] Address [address] [place] [address] Care Team Providers Care Plate Hanger Name Role Phone Jasiel Freeman MD Primary Care Provider Reason for Visit * Reason Onset Date Comments Home Visit 07/11/2022 Encounter Details Date Type Department Care Team (Late st Contact Info) Description 07/11/2022 Patient Outreach [facility] Specialty and Home Infusion - [address] [place] [address] Irina Wyatt, RN Home Visit [...] Sign Reading Time Taken Comments Blood Pressure 141/80 07/11/2022 7:00 PM CDT Pulse 84 07/11/2022 7:00 PM CDT Temperature 37.2 ??C (99 ??F) 07/11/2022 7:00 PM CDT Respiratory Rate 16 07/11/2022 7:00 PM CDT Oxygen Saturation 98% 07/11/2022 7:00 PM CDT Inhaled Oxygen Concentration - - Weight - - Height - - Body Mass Index - - documented in this encounter Miscellaneous Notes * Telephone Encounter - Irina Wyatt RN - 07/11/2022 6:47 PM CDT Images from the original note were not included. [facility] Home Infusion NURSING follow up Leonidas Elkins 1970 [id number] [facility] [address] Provider - Irina Wyatt RN 07/11/2022 Visit start 1430 Visit end 1546 Contact numbers provided including after hours numbers [...] yes Pt informed on importance of notifying [facility] immediately if any unexpected insurance changes occur.yes No problem observed with learning needs - No cultural, restorationist, or language barriers to learning Patient and [...] normal mood and affect. Pain: 0 1. penitentiary assessment and implementation of infusion therapy. Teaching [...] reactions. Patient knows how to reorder medications. [facility] Specialty and Home Infusion Pharmacy will [...] Description 02/13/2025 10:30 AM CDT Office Visit [facility] IBD and Gastroenterology Center [place] [address] [place] [address] Kitty Dover ANP [address] [place] [address] documented as of this encounter Visit Diagnoses Not on filedocumented in this encounter Care Teams Plate Hanger Relationship Specialty Start Date End Date Jasiel Freeman MD [address] [place] [phone] PCP - General Family Practice 08/15/17 documented as of this encounter
--- OUTSIDE RECORDS SUMMARY | 2024-10-24 05:28 | XMS_ITS | Encounter Summary ---
Author Organization [facility] Address [address] [facility] [place] [address] Care Team Providers Care Feltmaker And Weigher Name Role Phone Jasiel Freeman MD Primary Care Provider [phone] Reason for Visit * Reason Onset Date Comments Erroneous encounter-disregard 07/11/2022 Encounter Details Date Type Department Care Team (Late st Contact Info) Description 07/11/2022 Patient Outreach [facility] Specialty and Home Infusion - [address] [place] [address] Irina Wyatt RN Erroneous encounter-disregard Social History Tobacco Use Types Packs/Day Years [...] Description 02/13/2025 10:30 AM CDT Office Visit [facility] IBD and Gastroenterology [facility] [address] [facility] [address] [place] [address] Kitty Dover, ANP [address] [facility] [address] [place] [address] documented as of this encounter Visit Diagnoses Not on filedocumented in this encounter Care Teams Feltmaker And Weigher Relationship Specialty Start Date End Date Jasiel Freeman MD [address] [place] [phone] PCP - General Family Practice 08/15/17 documented as of this encounter
--- OUTSIDE RECORDS SUMMARY | 2024-10-24 05:28 | XMS_ITS | Encounter Summary ---
Author Organization [facility] Address [address] [place] [address] Care Team Providers Care Real Time Analyst Name Role Phone Jasiel Freeman MD Primary Care Provider Reason for Referral * Eval and Treat (Routine) - Closed Specialty Diagnoses / Procedures Referred By Contalka t Referred To Contact Gastroenterology Diagnoses Ulcerative pancolitis without complication Kitty Dover ANP [address] [address] Referral ID Status Reason Start Date Expiration Date Visits Re quested Visits Authorized [id number] Closed 07/21/2022 07/21/2023 1 1 Reason for Visit * Reason Comments Follow Up UC Encounter Details Date Type Department Care Team (Latest Contact Info) Description 07/21/2022 10:30 AM CDT Office Visit [facility] [address] [place] [address] Kitty Dover ANP [address] [facility] [address] [place] [address] Ulcerative pancolitis without complication (Primary Dx); High risk medication use; Immunodeficiency due to treatment with immunosuppressive medication Social History Tobacco Use Types Packs/Day Years [...] Sign Reading Time Taken Comments Blood Pressure 139/87 07/21/2022 10:37 AM CDT Pulse 100 07/21/2022 10:37 AM CDT Temperature 37.6 ??C (99.7 ??F) 07/21/2022 10:37 AM C DT Respiratory Rate - - Oxygen Saturation 95% 07/21/2022 10:37 AM CDT Inhaled Oxygen Concentration - - Weight 86.6 kg (191 lb) 07/21/2022 10:37 AM CDT Height 175.3 cm (5' 9 ) 07/21/2022 10:37 AM CDT Body Mass Index 28.21 07/21/2022 10:37 AM CDT documented in this encounter Progress Notes * Kitty Dover ANP - 07/21/2022 10:28 AM CDT [facility] JOANNE Mohan Chief Complaint Patient presents with Follow Up UC Edgardo Elkins is a 51 y.o. male with hx of UC s/p total colectomy with J pouch in [facility]. 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 He was last seen in clinic by SHAGGY Richards, 07/2021. The thought process now is chronic pouchitis vs Crohn's. He is currently on Entyvio 300mg q 4 weeks. No breakthrough symptoms. Has 5-6 BMs daily without blood or mucus. Denies n/v, vision changes, joint pain. Within a day or two after infusions, he has noticed some increased BM and abdominal cramping. Otherwise continues to do well. Next infusion scheduled 08/09/2022. IBD Hx: The patient's IBD History has been copied and pasted from previous visits and updated at every visit. Dx 2000 He has been on Humira, Remicade, Xifaxin, Cipro, Augmentin, Vanc, prednisone, Protonix, Asacol, cefdinir and currently Entyvio 300mg q 4 weeks. I have reviewed outside records today as part of this visit, including reviewing images from patient's last endoscopy/colonoscopy. Past Medical History: I updated the electronic medical records of any updates in patients medical, social, and family hx. Past Medical History: Diagnosis Date Arthritis Asthma as a child Injury of face and neck herniated disk Ulcerative colitis Unspecified adverse effect of anesthesia violent after 1st surgery Past Surgical History: Procedure Laterality Date HX COLECTOMY 2001 HX HIP REPLACEMENT, TOTAL Left 10/08/2017 DC COLONOSCOPY FLX DX W/COLLJ SPEC WHEN PFRMD 12/08/2009 COLONOSCOPY performed by LOUISE SOTELO at [facility] DC COLONOSCOPY FLX DX W/COLLJ SPEC WHEN PFRMD 06/09/2014 COLONOSCOPY performed by aLne Ryan MD at [facility] DC DILATION RECTAL STRICTURE W ANEST 06/12/2012 RECTAL STRICTURE DILATATION performed by Lane Ryan MD at [facility] DC ENDOSCOPY UPPER SMALL INTESTINE 06/12/2012 SMALL BOWEL ENTEROSCOPY performed by Lane Ryan MD at [facility] DC ENDOSCOPY UPPER SMALL INTESTINE N/A 08/24/2017 SMALL BOWEL ENTEROSCOPY performed by Lane Ryan MD at [facility] DC ENDOSCOPY UPPER SMALL INTESTINE W/BIOPSY 02/28/2012 BOWEL SMALL BIOPSY ENDOSCOPIC performed by Lane Ryan MD at [facility] DC ESOPHAGOGASTRODUODENOSCOPY TRANSORAL DIAGNOSTIC 02/28/2012 ESOPHAGOGASTRODUODENOSCOPY performed by Lane Ryan MD at [facility] GI [facility] DC NDSC EVAL INTSTINAL POUCH DX W/COLLJ SPEC SPX 02/16/2012 POUCHOSCOPY performed by Louise Sotelo MD at [facility] DC SIGMOIDOSCOPY FLX DX W/COLLJ SPEC BR/WA IF PFRMD 02/16/2012 SIGMOIDOSCOPY FLEXIBLE performed by Louise Sotelo MD at [facility] DC SIGMOIDOSCOPY FLX DX W/COLLJ SPEC BR/WA IF PFRMD N/A 06/12/2020 CHECKOUT SIGMOIDOSCOPY FLEXIBLE performed by Annette Whitney MD at [facility] Family History Problem Relation Name Age of Onset Heart Disease Father Hypertension Mother Healthy Sister Healthy Brother Colon Cancer Neg Hx Social History Socioeconomic History Marital status: Spouse name: Not on file Number of children: Not on file Years of education: Not on file Highest education level: Not on file Occupational History Employer: [employer] Employer: [employer] Tobacco Use Smoking status: Former Packs/day: 0.50 Years: 10.00 Pack years: 5.00 Types: Cigarettes Quit date: 06/09/2011 Years since quittin.1 Smokeless tobacco: Never Tobacco comments: off & on Vaping Use Vaping Use: Never used Substance and Sexual Activity Alcohol use: Yes Comment: rarely Drug use: No Sexual activity: Not on file Other Topics Concern Not on file Social History Narrative Not on file Social Determinants of Health Financial Resource Strain: Not on file Food Insecurity: Not on file Transportation Needs: Not on file Physical Activity: Not on file Stress: Not on file Social Connections: Not on file Intimate Partner Violence: Not on file Housing Stability: Not on file Allergies Allergen Reactions Infliximab Rash Other reaction(s): Sneezing flushed face Review of Systems: Eyes: as per HPI Respiratory: negative for cough, sputum, hemoptysis, dyspnea on exertion or chronic bronchitis Cardiovascular: negative for lower extremity edema, negative for chest pain, chest pressure/discomfort, dyspnea, palpitations, orthopnea, Gastrointestinal: as per HPI Genitourinary:negative for dysuria, nocturia, urinary incontinence, hematuria Hematologic/lymphatic: negative for easy bruising, bleeding, lymphadenopathy and petechiae Musculoskeletal: as per HPI Neurological: negative for headaches, dizziness, vertigo and seizures Exam: BP 139/87 Pulse 100 Temp 99.7 ??F (37.6 ??C) Ht 5' 9 (1.753 m) Wt 86.6 kg (191 lb) SpO2 95% BMI 28.21 kg/m?? General appearance: normal, alert, no distress, appears stated age Eyes: conjunctivae non-injected Neck: supple, symmetrical, no adenopathy Lungs: no respiratory distress, breathing comfortably. Abdomen: soft, no masses palpable, non-tender, non-distended Extremities: no ulcers, no edema Joints: no synovitis Skin: No rashes or lesions Neuro: Converses and ambulates appropriately Relevant Laboratories: Lab Results Component Value Date WBC 6.4 07/29/2021 HGB 15.0 07/29/2021 HCT 49.4 07/29/2021 PLT 395 07/29/2021 MCV 81.7 07/29/2021 Lab Results Component Value Date NA 136 07/29/2021 K 4.8 07/29/2021 CL 102 07/29/2021 CO2 27 07/29/2021 CA 9.0 07/29/2021 BUN 16 07/29/2021 CREAT 1.23 07/29/2021 GLUCOSE 115 (H) 07/29/2021 TOTALPROTEIN 7.0 07/29/2021 ALBUMIN 3.9 07/29/2021 BILITOTAL 0.5 07/29/2021 ALKPHOS 64 07/29/2021 AST 16 07/29/2021 ALT 16 07/29/2021 ANIONGAP 10 05/20/2020 BCRATIO NOT APPLICABLE 07/29/2021 Last Endoscopies: Pouchoscopy 05/2020. Impression: Pouchitis vs. [...] Pertinent Imaging: Assessment: Edgardo Elkins is a 51 y.o. male [...] IV fluids during infusion. Pouchoscopy due and orderedto be scheduled prior to the end of the year. [facility] paperwork updated today. Vitamin B12 deficiency - [...] Schedule scope (pouchoscopy) with Dr. Nair with 10/24 clenpiq prep. Clenpiq prep ordered. OK to use golytely or miralax if not covered. Patient can go to [employer] to download a SAVINGS Card to pay less than $40 for the prep. Update vaccines including [id number] and shingrix. Follow up in [address] Nair. On the day of the visit, I spent 33 minutes providing care to this patient including chart review, review of outside records, obtaining history from patient and their family, performing a medically appropriate examination, counseling and educating the patient/family/caregiver, ordering medications, tests, or procedures, and documenting clinical information in the medical record. MIRTA Guido [facility] Inflammatory Bowel Disease CC: Jasiel Freeman MD Orders Placed This Encounter omeprazole (PriLOSEC) 40 mg Capsule, Delayed Release(E.C.) terbinafine HCL (LamISIL) 250 mg tablet testosterone cypionate (DEPO-TESTOSTERONE) 200 mg/mL Oil zolpidem (AMBIEN) 5 mg tablet Current Outpatient Medications: omeprazole (PriLOSEC) 40 mg Capsule, Delayed Release(E.C.), Take 40 mg by mouth daily., Disp: , Rfl: terbinafine HCL (LamISIL) 250 mg tablet, Take 250 mg by mouth daily., Disp: , Rfl: testosterone cypionate (DEPO-TESTOSTERONE) 200 mg/mL Oil, INJECT 1ML INTRAMUSCULARLY WEEKLY, Disp: , Rfl: zolpidem (AMBIEN) 5 mg tablet, TAKE 1 TABLET BY MOUTH AT BEDTIME NEEDED FOR 30 DAYS, Disp: , Rfl: dicyclomine (BENTYL) 10 mg capsule, TAKE 1 CAPSULE BY MOUTH FOUR TIMES A DAY, Disp: 360 Capsule, Rfl: 0 water sterile Solution, 4.8 mL by See Admin Instructions route see administration instructions., Disp: 10 mL, Rfl: 6 ergocalciferol (VITAMIN D2) 50,000 unit capsule, Take 1 Capsule (50,000 Units) by mouth every 2 weeks., Disp: 8 Capsule, Rfl: 2 hyoscyamine 0.375 mg Extended Release 12 hour tablet, Take 1 Tablet (0.375 mg) by mouth every 12 hours as needed for Discomfort., Disp: 60 Tablet, Rfl: 1 ondansetron (ZOFRAN) 4 mg Tablet, Take 1 Tablet (4 mg) by mouth every 8 hours as needed for Nausea/Emesis., Disp: 15 Tablet, Rfl: None diphenoxylate-atropine (LOMOTIL) 2.5-0.025 mg tablet, Take 1 Tablet by mouth 4 times daily as needed for Diarrhea/Loose Stools., Disp: 60 Tablet, Rfl: 1 Syringe with Needle, Disp, (BD Luer-Jesusita Syringe) 3 mL 23 gauge x 1 1/2 Syringe, For use with B12 injections, Disp: 12 Each, Rfl: 2 SOLU-MEDROL, PF, 40 mg/mL Recon Soln, ADMINISTER 40 MG VIA SLOW INTRAVENOUS PUSH IN CASE OF SEVERE ALLERGICREACTION., Disp: 1 Each, Rfl: 0 SOLU-CORTEF 100 mg Recon Soln, ADMINISTER 50 MG VIA SLOW INTRAVENOUS PUSH IN CASE OF SEVERE ALLERGICREACTION. DISCARD EXCESS., Disp: 100 mg, Rfl: 0 BD PRECISIONGLIDE 25 gauge x 1 Needle, USE DIRECTED TO ADMINISTER SOLU CORTEF, Disp: 5 Each, Rfl: 1 diphenhydrAMINE (BENADRYL) 50 mg/mL Solution, ADMINISTER 25 MG VIA SLOW INTRAVENOUS PUSH IN CASE OFSEVERE ALLERGICREACTION. DISCARD EXCESS, Disp: 1 mL, Rfl: 0 vedolizumab (ENTYVIO) 300 mg Recon Soln, Inject 300 mg by intraveous injection see administration instructions. Home PIPE SUPERVISOR to administer over 30 minutes every 8 weeks. (Patient taking differently: Inject 300 mg by intravenous injection see administration instructions. Home PIPE SUPERVISOR to administer 300 mg via IV over 30 minutes every 4 weeks.), Disp: 300 mg, Rfl: 3 TESTOSTERONE, BULK, MISC, 1 mL by Misc.(Non-Drug; Combo Route) route., Disp: , Rfl: documented in this encounter Miscellaneous Notes * Result Encounter Note - Kitty Dover ANP - 08/15/2022 9:57 AM CDT Edgardo, Your calpro looks good, but your CRP is elevated. * Patient Instructions - Kitty Dover ANP - 07/21/2022 10:33 AM CDT Thank you for entrusting your healthcare to the physicians at [facility] Inflammatory Bowel Disease and Gastroenterology Following your visit, you may receive a survey via email or [employer]. Kitty encourages you to respond to this confidential survey about your care. If you received excellent care, Kitty would appreciate your evaluation. Your feedback helps us to provide quality service at every visit. Thank you for your help in making our practice meet the highest expectations! [facility] Disease [facility]astroenterology [facility] If you have IBD, this is the preferred office to contact. [facility] [address] [place] [address] Other important numbers to add to our contact info: After hours physician exchange: [phone] Champion: To schedule CT or MRI: Call [phone] To schedule EGD/Colon/Flex [phone] Nair/Kiki: To schedule CT or MRI: Call [phone] To schedule an EGD/Colon/Flex Sig: Call [phone] IMPORTANT: The following information and instructions are from your visit today: JOANNE Mohan documented in this encounter Plan of Treatment Upcoming Encounters Date Type Department Care Team (Late st Contact Info) Description 02/13/2025 10:30 AM CDT Office Visit [facility] [place] [address] [place] [address] Kitty Dover, MIRTA [address] [place] [address] Scheduled Referrals Name Type Priority Associated Diagnoses Order Schedule AMB REFERRAL TO GASTROENTEROLOGY Outpatient Referral Routine Ulcerative pancolitis without complication Ordered: 07/21/2022 documented as of this encounter Procedures Procedure Name Priority Date/Time Associated Diagnosis Comments CALPROTECTIN, FECAL Routine 08/08/2022 1 :14 PM CDT Ulcerative pancolitis without complication VEDOLIZUMAB LEVEL W/ABS Routine 08/08/2022 1:11 PM CDT QUANTIFERON TB GOLD Routine 08/08/2022 1 :11 PM CDT Ulcerative pancolitis without complication High risk medication use HEPATITIS B SURFACE ANTIGEN Routine 08/08/2022 1:11 PM CDT Ulcerative pancolitis without complication High risk medication use CBC WITH DIFFERENTIAL Routine 08/08/2022 1:11 PM CDT Ulcerative pancolitis without complication VITAMIN D 25 HYDROXY Routine 08/08/2022 1:11 PM CDT Ulcerative pancolitis without complication C-REACTIVE PROTEIN Routine 08/08/2022 1: 11 PM CDT Ulcerative pancolitis without complication VITAMIN B12 LEVEL Routine 08/08/2022 1:1 1 PM CDT Ulcerative pancolitis without complication COMPREHENSIVE METABOLIC PANEL Routine 08/08/2022 1:11 PM CDT Ulcerative pancolitis without complication documented in this encounter Results * CALPROTECTIN, FECAL (08/08/2022 1:14 PM CDT) [facility] CALPROTECTIN, FECAL 98 mcg/g [facility], Comment: ?Reference Range: ?<50 ? Normal ?50-120 ??Borderline ?>120 ?Elevated ?? LIQUID STOOL. Calprotectin in Crohn's disease and ulcerative colitis can be five to several thousand times above the reference population (50 mcg/g or less). Levels are usually 50 mcg/g or less in healthy patients and with irritable bowel syndrome. Repeat testing in 4-6 weeks is suggested for borderline values. Test Performed at: [email or web address] [facility], [address] [place] ??[address] Kim Cancino MD,PhD,KATHRYN Stool STOOL SPECIMEN / Unknown 08/08/2022 1:14 PM CDT 08/08/2022 1:14 PM CDT Kitty KIRBY BODY FLUIDS AND STOOLS [facility] [phone] [employer], [address] [place] [address] * VEDOLIZUMAB LEVEL W/ABS (08/08/2022 1:11 PM CDT) [facility] VEDOLIZUMAB QN, S 16.9 mcg/mL [facility] Clinical [facility] Comment: REFERENCE VALUE Lower limit of quantitation = 2.0 mcg/mL ADDITIONAL INFORMATION This test was developed and its performance characteristics determined by [facility] in a manner consistent with CLIA requirements. This test has not been cleared or approved by the U.S. Food and Drug Administration. VEDOLIZUMAB AB <9.8 <9.8 ng/mL [facility] VEMAB INTERPRETATION [facility] Comment: Absence of detectable biekxgdx-kf-stoymwapiuu. ADDITIONAL INFORMATION This test was developed and its performance characteristics determined by [facility] in a manner consistent with CLIA requirements. This test has not been cleared or approved by the U.S. Food and Drug Administration. Test Performed at: [facility] [address] [place] ??[phone] James Oliveira II, MD,PhD 08/08/2022 1:11 PM CDT 08/08/2022 1:12 PM CDT Kitty Dover [facility] CHEMISTRY ORDER SHAMAR [facility] [phone] [facility] [address] [place] [address] * VITAMIN B12 LEVEL (08/08/2022 1:11 PM CDT) Pathologist [facility] VITAMIN B12 307 200 - 1100 pg/mL [facility] Comment: Please Note: Although the reference range for vitamin B12 is 200-1100 pg/mL, it has been reported that between 5 and 10% of patients with values between 200 and 400 pg/mL may experience neuropsychiatric and hematologic abnormalities due to occult B12 deficiency; less than 1% of patients with values above 400 pg/mL will have symptoms. Test Performed at: [facility] ??[phone] James Peres D.O., MPH Blood 08/08/2022 1:11 PM CDT 08/08/2022 1:12 PM CDT Kitty Dover ANP CHEMISTRY ORDER SHAMAR [facility] [phone] [address] * VITAMIN D 25 HYDROXY (08/08/2022 1:11 PM CDT) VITAMIN D, 25 OH, TOTAL 48 30 - 100 ng/mL [facility] Comment: Vitamin D Status ? 25-OH Vitamin D: Deficiency: ?<20 ng/mL Insufficiency: ? 20 - 29 ng/mL Optimal: ? > or = 30 ng/mL For 25-OH Vitamin D testing on patients on D2-supplementation and patients for whom quantitation of D2 and D3 fractions is required, the [facility] 25-OH VIT D, (D2,D3), LC/MS/MS is recommended: order code [id number] (patients >2yrs). See Note 1 Note 1 For additional information, please refer to http://education.Gewara/faq/WVR124 (This link is being provided for informational/ educational purposes only.) Test Performed at: [facility] ??[phone] James Peres D.O., MPH Blood 08/08/2022 1:11 PM CDT 08/08/2022 1:12 PM CDT Kitty Darnellvivian Dover ANP CHEMISTRY ORDER SHAMAR Performing Organization Address [facility]/ZIP Co de Phone Number [facility] [phone] [facility] [place] [address] * (ABNORMAL) C-REACTIVE PROTEIN (08/08/2022 1:11 PM CDT) Pathologist [facility] CRP 40.6(H) <8.0 mg/L [facility] Comment: Test Performed at: [facility] [address] [place] [address] ??[phone] James Peres D.O., MPH Blood 08/08/2022 1:11 PM CDT 08/08/2022 1:12 PM CDT Kitty Darnellvivian Dover ANP CHEMISTRY ORDER SHAMAR Performing Organization Address [facility] de Phone Number [facility] [phone] [facility] [address] [place] [address] * (ABNORMAL) COMPREHENSIVE METABOLIC PANEL (08/08/2022 1:11 PM CDT) Pathologist [facility] GLUCOSE 141(H) 65 - 99 mg/dL [facility] Comment: ? Fasting reference interval For someone without known diabetes, a glucose value >125 mg/dL indicates that they may have diabetes and this should be confirmed with a follow-up test. BUN 15 7 - 25 mg/dL [facility] CREATININE 1.37(H) 0.70 - 1.30 mg/dL [facility] GFR 62 > OR = 60 mL/min/1.7 3m2 [facility] Comment: The eGFR is based on the CKD-EPI 2020 equation. To calculate the new eGFR from a previous Creatinine or Cystatin C result, go to https://www.kidney.org/professionals/ kdoqi/gfr%5Fcalculator BUN/CREAT RATIO 11 6 - 22 (calc) [facility] SODIUM 135 135 - 146 mmol/L [facility] POTASSIUM 4.4 3.5 - 5.3 mmol/L [facility] CHLORIDE 101 98 - 110 mmol/L [facility] CO2 24 20 - 32 mmol/L [facility] CALCIUM 8.9 8.6 - 10.3 mg/dL [facility] TOTAL PROTEIN 6.9 6.1 - 8.1 g/dL [facility] ALBUMIN 3.7 3.6 - 5.1 g/dL [facility] GLOBULIN 3.2 1.9 - 3.7 g/dL (calc) [facility] ALBUMIN/GLOBULIN RATIO 1.2 1.0 - 2.5 (calc) [facility] BILIRUBIN TOTAL 0.3 0.2 - 1.2 mg/dL [facility] ALKALINE PHOSPHATASE 79 35 - 144 U/L [facility] AST 18 10 - 35 U/L [facility] ALT 25 9 - 46 U/L [facility] Comment: Test Performed at: [facility] [address] [place], [place] ??[phone] James Peres D.O., MPH Blood 08/08/2022 1:11 PM CDT 08/08/2022 1:12 PM CDT Kitty KIRBY CHEMISTRY ORDER SHAMAR [facility] [phone] [facility] [address] [place] [address] * (ABNORMAL) CBC WITH DIFFERENTIAL (08/08/2022 1:11 PM CDT) WBC 6.9 3.8 - 10.8 Thousand/u L [facility] RBC 6.02(H) 4.20 - 5.80 Million/uL [facility] HEMOGLOBIN 14.5 13.2 - 17.1 g/dL [facility] HEMATOCRIT 47.8 38.5 - 50.0 % [facility] MCV 79.4(L) 80.0 - 100.0 fL [facility] MCH 24.1(L) 27.0 - 33.0 pg [facility] MCHC 30.3(L) 32.0 - 36.0 g/dL [facility] RDW 15.8(H) 11.0 - 15.0 % [facility] PLATELETS 334 140 - 400 Thousand/u L [facility] MPV 10.1 7.5 - 12.5 fL [facility] NEUTROPHIL ABSOLUTE 5,299 1,500 - 7,800 cells/uL [facility] LYMPHOCYTE ABSOLUTE 883 850 - 3,900 cells/uL [facility] MONOCYTE ABSOLUTE 628 200 - 950 cells/uL [facility] EOSINOPHIL ABSOLUTE 48 15 - 500 cells/uL [facility] BASOPHILS ABSOLUTE 41 0 - 200 cells/uL [facility] NEUTROPHIL 76.8 % [facility] LYMPHOCYTES 12.8 % [facility] MONOCYTE 9.1 % [facility] EOSINOPHILS 0.7 % [facility] BASOPHILS 0.6 % [facility] Comment: Test Performed at: [employer] ??[phone] James Peres D.O., MPH Blood 08/08/2022 1:11 PM CDT 08/08/2022 1:12 PM CDT Kitty KIRBY HEMATOLOGY ORDToño PRITCHETT [facility] [phone] [facility] R People[address] [address] * HEPATITIS B SURFACE ANTIGEN (08/08/2022 1:11 PM CDT) HEPATITIS B SURFACE AG NON-REACTI VE NON-REACTI VE [facility] Comment: Test Performed at: [facility] ??[phone] James Peres D.O., MPH Blood 08/08/2022 1:11 PM CDT 08/08/2022 1:12 PM CDT Kitty Aguero Dover ANP CHEMISTRY ORDER SHAMAR [facility] [phone] [facility] [address] [id number] [place] [address] * QUANTIFERON TB GOLD (08/08/2022 1:11 PM CDT) Pathologist [facility] QUANTIFERON TB GOLD PLUS NEGATIVE NEGATIVE [facility] Comment: Negative test result. M. tuberculosis complex infection unlikely. NIL 0.02 IU/mL [facility] MITOGEN-NIL 5.21 IU/mL [facility] TB1 AG - NIL <0.00 IU/mL [facility] TB2 AG - NIL <0.00 IU/mL [facility] Comment: The Nil [...] T-lymphocytes. For additional information, please refer to https://education.DocumentCloud.Ciao Telecom/faq/DRF526 (This link is being provided for informational/ educational purposes only.) Test Performed at: [facility] [address] [place], [place] ??[phone] James Peres D.O., MPH Blood 08/08/2022 1:11 PM CDT 08/08/2022 1:12 PM CDT Kitty More Dover ANP CHEMISTRY ORDER SHAMAR [facility] [phone] [facility] [address] [place] [address] documented in this encounter Visit Diagnoses Diagnosis Ulcerative pancolitis without complication- Primary High risk medication use Encounter for long-term (current) use of other medications Immunodeficiency due to treatment with immunosuppressive medication Unspecified disorder of immune mechanism documented in this encounter Care Teams Real Time Analyst Relationship Specialty Start Date End Date Jasiel Freeman MD [address] [place] [phone] PCP - General Family Practice 08/15/17 documented as of this encounter
--- OUTSIDE RECORDS SUMMARY | 2024-10-24 05:28 | XMS_ITS | Encounter Summary ---
Author Organization [facility] Address [address] [place] [address] Care Team Providers Care Animal Handler Name Role Phone Jasiel Freeman MD Primary Care Provider [phone] Encounter Details Date Type Department Care Team (Late st Contact Info) Description 08/21/2024 External Device Data STL ABSTRACTION Provider, Abstract [...] [facility] [place] [address] [place] [address] Kitty Dover, MIRTA [address] [place] [address] documented as of this encounter Visit Diagnoses Not on filedocumented in this encounter Additional Health Concerns Assessment Noted Time PHQ-9 Depression Total Score: 2 12/08/19 23 11:00 AM GOAL UMPIRE documented as of this encounter Care Teams Animal Handler Relationship Specialty Start Date End Date Jasiel Freeman MD [address] [place] [phone] PCP - General Family Practice 08/15/17 documented as of this encounter
--- OUTSIDE RECORDS SUMMARY | 2024-10-24 05:28 | XMS_ITS | Encounter Summary ---
Author Organization [facility] Address [address] [place] [address] Care Team Providers Care Success Coach Name Role Phone Jasiel Freeman MD Primary Care Provider Reason for Visit * Reason Onset Date Comments Med Refill 01/23/2024 Encounter Details Date Type Department Care Team (Late st Contact Info) Description 01/23/2024 Telephone [facility] [address] [facility] [address] [place] [address] Kitty Dover, MIRTA [address] [facility] [address] [place] [address] Med Refill Social History Tobacco Use Types Packs/Day Years [...] encounter Miscellaneous Notes * Telephone Encounter - Kathrin Robertson RN - 01/23/2024 12:47 PM CDT IBD CENTER MEDICATION REFILL REQUEST Medicine being refilled: Skyrizi Last Refill: QTY: 1 RF: 5 TEQUILA: 12/08/22 NOV: next week Safety Monitoring Labs UTD? No ordered Assessment/Recommendations/Plan: Edgardo Elkins is a 52 y.o. 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 Last pouchoscopy was 07/2022 with inflammation in the pr pouch ileum, changed to skyrizi. Hasflare after antibiotics and change to skyrizi. FMLA paperwork updated today. Check c. Diff, [...] blood work looks OK will proceed with Skyrizi #2. Keep hydrated, try some gatorade to help with fluids. Let Irina know how you are doing when she sees you on Monday. 6 weeks follow up with Kitty. documented in this encounter Plan of Treatment Upcoming Encounters Date Type Department Care Team (Late st Contact Info) Description 02/13/2025 10:30 AM CDT Office Visit [facility] [address] [facility] [address] [place] [phone] Kitty Dover, ANP [address] [facility] [address] [place] [address] Scheduled Orders Name Type Priority Associated Diagnoses Orde r Schedule QUANTIFERON TB GOLD Lab Routine Ulcerative pancolitis with other complication Expected: 01/23/2024, Expires: 01/22/2025 documented as of this encounter Visit Diagnoses Diagnosis Ulcerative pancolitis with other complication- Primary documented in this encounter Additional Health Concerns Assessment Noted Time PHQ-9 Depression Total Score: 2 12/08/19 23 11:00 AM MATERIAL COORDINATOR documented as of this encounter Care Teams Success Coach Relationship Specialty Start Date End Date Jasiel Freeman MD [address] [place] [phone] PCP - General Family Practice 08/15/17 documented as of this encounter
--- OUTSIDE RECORDS SUMMARY | 2024-10-24 05:28 | XMS_ITS | Encounter Summary ---
Author Organization [facility] Address [address] [place] [address] Care Team Providers Care Director Process Name Role Phone Jasiel Freeman MD Primary Care Provider [phone] Encounter Details Date Type Department Care Team (Late st Contact Info) Description 06/10/2022 Specialty Pharmacy [facility] - [address] [place] [address] John Avina PHARMACIST Social History Tobacco Use Types Packs/Day [...] as of this encounter Progress Notes * Rosalia Gomez - 06/10/2022 10:22 AM CDT [facility] Patient Name: Edgardo Elkins Home Infusion Orders Medication: Entyvio 300 mg IV every 4 weeks Treating Diagnosis: Ulcerative colitis Method of administration: IV infusion Equipment: n/a Prescriber(s): Annette Whitney MD Therapy Start Date: 08/08/2019 Anticipated Therapy End Date: Ongoing Vascular Access Device (VAD) Orders Type of VAD: PIV NS 10 mL: 10 mL before and after each dose and as needed for lab draws/line complications Pharmacy to dispense flushes, catheter supplies and all medically necessary infusion supplies untilcatheter is removed. Lab orders: No labs needed Nursing Provided by [facility] and Infusion Therapy Specific Entyvio (vedolizumab) The most common infusion reactions of Entyvio include: Common cold Headache Joint pain Nausea Fever Infections of the nose and throat Tiredness Cough Bronchitis Flu Back pain Rash Itching Sinus infection Throat pain Pain in extremities Note: ADULT BASIC EDUCATION INSTRUCTOR to observe patient during infusion and monitor [...] lab values of note since last dispense? No Note: last negative TB test 07/29/21 Pharmacy Information Adherence issues (reported or suspected)?: [...] No Patient requires delivery to cover through 06/14/2022 Pharmacy to send Entyvio + IV supplies Permission to leave delivered package? Yes Delivery Instructions: Deliver 06/13/2022 Note: General Information for this assessment provided by Epic/ Patient HIPAA contact identified: Yes Note: ???Welcome Packet?? been provided to the patient Yes Note: Provided with initial delivery / via [facility] Additional Notes Pharmacy communicated/coordinated with MD supervisor facepiece line? Yes Follow up notes for next encounter? [...] Description 02/13/2025 10:30 AM CDT Office Visit [facility] [place] [address] [facility] [address] [place] [address] Kitty Dover, MIRTA [address] [place] [address] documented as of this encounter Visit Diagnoses Not on filedocumented in this encounter Care Teams Director Process Relationship Specialty Start Date End Date Jasiel Freeman MD [address] [place] [phone] PCP - General Family Practice 08/15/17 documented as of this encounter
--- OUTSIDE RECORDS SUMMARY | 2024-10-24 05:28 | XMS_ITS | Encounter Summary ---
Author Organization [facility] Address [address] [place] [address] Care Team Providers Care Workers Compensation Manager Name Role Phone Jasiel Freeman MD Primary Care Provider Reason for Visit * Reason Onset Date Comments GI Flare 08/09/2022 Encounter Details Date Type Department Care Team (Late st Contact Info) Description 08/09/2022 Telephone [facility] [address] [facility] [address] [place] [address] Jailene Whitney MD [address] [facility] [place] [phone] GI Flare Social History Tobacco Use Types Packs/Day Years [...] * Addendum Note - Silva Anne - 08/12/2022 2:20 PM CDTAddended by: SILVA ANNE on: 08/12/2022 02:20 PM Modules accepted: Orders * Telephone Encounter - Silva Anne - 08/12/2022 2:12 PM CDT Called patient and went over doctors response to the lab work. Patient is with understanding and isscheduled for scope on Monday08/15/22 * Addendum Note - Jailene Whitney MD - 08/12/2022 1:30 PM CDTAddended by: JAILENE WHITNEY on: 08/12/2022 01:30 PM Modules accepted: Orders * Telephone Encounter - Jailene Whitney MD - 08/12/2022 1:29 PM CDT Please let him know I sent Rx for budesonide. He needs a pouchoscopy with me ISHA, may use MD directed spot. KH * Addendum Note - Joselyn Gore RN - 08/09/2022 4:36 PM CDTAddended by: JOSELYN OGRE on: 08/09/2022 04:36 PM Modules accepted: Orders * Telephone Encounter - Joselyn Gore RN - 08/09/2022 3:48 PM CDT Patient calling with Symptoms Concerning for Flare: symptoms started beginning of last week, increase in symptoms started last night Diagnosis: hx of UC s/p total colectomy with J pouch Last Office visit: 07/21/22 with Kitty Current Meds: Entyvio 300mg q 4 weeks, last infusion was yesterday 08/09/22 Symptoms: # BM per day: 5-6, this is his baseline Blood in stool (0%, <50%, >50%, >50%): none, always diarrhea but this is baseline Nocturnal stools: yes Abdominal pain: a little bit of cramping, not bad , when he has to use the restroom it increases to about 5/10 Fever: yes, Monday and Monday Urgency increased Symptoms consistent with prior flare? Yes Lab work: Yes, actually just completed orders today before calling. [facility] Do we want to send him back for this? C. Diff CBC (w differential) CRP Fecal calprotectin Office follow up arranged: None yet documented in this encounter Plan of Treatment Upcoming Encounters Date Type Department Care Team (Late st Contact Info) Description 02/13/2025 10:30 AM CDT Office Visit [facility] [place] [address] [facility] [facility] [address] [place] [address] Kitty Dover ANP [address] [facility] [address] [place] [address] documented as of this encounter Procedures Procedure Name Priority Date/Time Associated Diagnosis Comments C. DIFFICILE DETECTION Routine 08/10/2022 1:45 PM CDT Ulcerative pancolitis without complication documented in this encounter Results * C. DIFFICILE DETECTION (08/10/2022 1:45 PM CDT) C DIFFICILE TOXIN B QUAL NOT DETECTED NOT DETECTED [facility] [place] Comment: This test is for use only with liquid or soft stools; performance characteristics of other clinical specimen types have not been established. This assay was performed by [employer] GeneXpert(R) PCR. The performance characteristics of this assay have been determined by [employer]. Performance characteristics refer to the analytical performance of the test. For additional information, please refer to http://education.[employer]/faq/UFJ518 (This link is being provided for informational/educational purposes only.) Test Performed at: [id number] [address] [place], [place] ??[phone] James Peres D.O., MPH Stool STOOL SPECIMEN / Unknown 08/10/2022 1:45 PM CDT 08/10/2022 1:46 PM CDT Jailene Whitney MD MICROBIOLOGY - GENERAL ORDERABLES [facility] [phone] [phone] documented in this encounter Visit Diagnoses Diagnosis Ulcerative pancolitis without complication- Primary documented in this encounter Additional Health Concerns Infection Onset Date Last Indicated Resolved Time R/O C. diff 08/11/2022 08/10/2022 08/11/2022 2:45 PM CDT documented as of this encounter Care Teams Workers Compensation Manager Relationship Specialty Start Date End Date Jasiel Freeman MD [address] [place] [phone] PCP - General Family Practice 08/15/17 documented as of this encounter
--- OUTSIDE RECORDS SUMMARY | 2024-10-24 05:28 | XMS_ITS | Encounter Summary ---
Author Organization [facility] Address [address] [place] [address] Care Team Providers Care Bridge Teacher Name Role Phone Jasiel Freeman MD Primary Care Provider Reason for Visit * Reason Comments Ulcerative Colitis Encounter Details Date Type Department Care Team (Latest Contact Info) Description 09/11/2024 12:30 PM FORGING ENGINEER Office Visit [facility] IBD and Gastroenterology [facility] [place] [address] [facility] [place] [address] Jessica Bejarano MD [address] [address] [place] [address] Crohn's disease of small intestine without complication (Primary Dx); Immunodeficiency due to treatment with immunosuppressive medication; Vitamin B12 deficiency (non anemic); Vitamin D deficiency; Iron deficiency anemia due to chronic blood loss Social History Tobacco Use Types Packs/Day Years [...] Sign Reading Time Taken Comments Blood Pressure 137/88 09/11/2024 12:24 PM FORGING ENGINEER Pulse 94 09/11/2024 12:24 PM FORGING ENGINEER Temperature 37.9 ??C (100.2 ??F) 09/11/2024 12:24 PM FORGING ENGINEER Respiratory Rate 19 09/11/2024 12:24 PM FORGING ENGINEER Oxygen Saturation 94% 09/11/2024 12:24 PM FORGING ENGINEER Inhaled Oxygen Concentration - - Weight 81.8 kg (180 lb 6.4 oz) 09/11/2024 12:24 PM FORGING ENGINEER Height 175.3 cm (5' 9 ) 09/11/2024 12:24 PM FORGING ENGINEER Body Mass Index 26.64 09/11/2024 12:24 PM FORGING ENGINEER documented in this encounter Progress Notes * Jessica Bejarano MD - 09/11/2024 12:30 PM CST [facility] Infl[facility]el Disease [facility] Jessica Bejarano MD Chief Complaint Patient presents with Ulcerative Colitis Edgardo Elkins is a 53 y.o. male with history of UC s/p total colectomy with J pouch in 2001 who presents for outpatient evaluation in IBD clinic. Last seen by Kitty ECHOLS 01/2024. Today reports overall feeling well. Some days has 3-4 BM per day and some days more, related to dietary indiscretion. Still taking budesonide 3mg - cut back to every other day about 6 months ago. No change in symptoms with reducing the dose. No issue with the skyrizi. Ibuprofen rarely. Has FMLA paperwork today to fill out. TOBACCO COUNSELING He is not a tobacco/nicotine user. Timeline: IBD Hx: The patient's IBD History has been copied and pasted from previous visits and updated at every visit. Dx 2000 with UC He has been on Humira, Remicade, Xifaxin, Cipro, Augmentin, Vanc, prednisone, Protonix, Asacol, cefdinir Entyvio 300mg q 4 weeks. 07/2022: scope with inflammation at the pre-pouch ileum that was severe including deep ulcers with surrounding erythema. Calpro 98 at that time. 10/2022- started skyrizi 02/2024 calpro 343 07/2024 pouchoscopy with erosions 10cm into pre pouch ileum, overall much improved. Pouch and cuff normal. Inflammatory polyp in the pouch, biopsied. While on skyrizi and budesonide 3mg every other day. I have reviewed prior GI records today as part of this visit, including reviewing images from patient's last pouchoscopy with Dr. Nair. Past Medical History: I updated the electronic medical records of any updates in patients medical, social, and family hx. Past Medical History: Diagnosis Date Arthritis Asthma as a child Injury of face and neck herniated disk Ulcerative colitis Unspecified adverse effect of anesthesia violent after 1st surgery Past Surgical History: Procedure Laterality Date HX COLECTOMY 2001 HX HIP REPLACEMENT, TOTAL Left 10/08/2017 NC COLONOSCOPY FLX DX W/COLLJ SPEC WHEN PFRMD 12/08/2009 COLONOSCOPY performed by LOUISE RIZO at [facility] NC COLONOSCOPY FLX DX W/COLLJ SPEC WHEN PFRMD 06/09/2014 COLONOSCOPY performed by Lane Ryan MD at [facility] NC DILAT RCT STRIX SPX UNDER ANES OTH/THN LOCAL 06/12/2012 RECTAL STRICTURE DILATATION performed by Lane Ryan MD at [facility] NC ENDOSCOPY UPPER SMALL INTESTINE 06/12/2012 SMALL BOWEL ENTEROSCOPY performed by Lane Ryan MD at [facility] NC ENDOSCOPY UPPER SMALL INTESTINE N/A 08/24/2017 SMALL BOWEL ENTEROSCOPY performed by Lane Ryan MD at [facility] NC ENDOSCOPY UPPER SMALL INTESTINE W/BIOPSY 02/28/2012 BOWEL SMALL BIOPSY ENDOSCOPIC performed by Lane Ryan MD at [facility] NC ESOPHAGOGASTRODUODENOSCOPY TRANSORAL DIAGNOSTIC 02/28/2012 ESOPHAGOGASTRODUODENOSCOPY performed by Lane Ryan MD at [facility] NC NDSC EVAL INTSTINAL POUCH DX W/COLLJ SPEC SPX 02/16/2012 POUCHOSCOPY performed by Louise Rizo MD at [facility] NC NDSC EVAL INTSTINAL POUCH DX W/COLLJ SPEC SPX N/A 08/15/2022 POUCHOSCOPY performed by Annette Whitney MD at [facility] NC NDSC EVAL INTSTINAL POUCH DX W/COLLJ SPEC SPX N/A 08/06/2024 CHECKOUT POUCHOSCOPY performed by Jessica Bejarano MD at [facility] NC SIGMOIDOSCOPY FLX DX W/COLLJ SPEC BR/WA IF PFRMD 02/16/2012 SIGMOIDOSCOPY FLEXIBLE performed by Louise Rizo MD at [facility] NC SIGMOIDOSCOPY FLX DX W/COLLJ SPEC BR/WA IF PFRMD N/A 06/12/2020 CHECKOUT SIGMOIDOSCOPY FLEXIBLE performed by Annette Whitney MD at [facility] Family History Problem Relation Name Age of Onset Heart Disease Father Hypertension Mother Healthy Sister Healthy Brother Colon Cancer Neg Hx Social History Socioeconomic History Marital status: Spouse name: Not on file Number of children: Not on file Years of education: Not on file Highest education level: Not on file Occupational History Employer: [employer] Employer: [employer] Tobacco Use Smoking status: Former Current packs/day: 0.00 Average packs/day: 0.5 packs/day for 10.0 years (5.0 ttl pk-yrs) Types: Cigarettes Start date: 06/09/2001 Quit date: 06/09/2011 Years since quittin.2 Smokeless tobacco: Never Tobacco comments: off & on Vaping Use Vaping status: Never Used Substance and Sexual Activity Alcohol use: Yes Comment: occ Drug use: No Sexual activity: Not on file Other Topics Concern Not on file Social History Narrative Not on file Social Determinants of Health Financial Resource Strain: Not on file Food Insecurity: Not on file Transportation Needs: Not on file Social Connections: Not on file Intimate Partner Violence: Not At Risk (08/06/2024) Intimate Partner Violence Patient has indicated abuse: : No Housing Stability: Not on file Allergies Allergen [...] headaches, dizziness, vertigo and seizures Exam: BP 137/88 Pulse 94 Temp 100.2 ??F (37.9 ??C) Resp 19 Ht 5' 9 (1.753 m) Wt 81.8 kg (180 lb 6.4 oz) SpO2 94% BMI 26.64 kg/m?? General appearance: normal, alert, no distress, appears stated age Eyes: conjunctivae non-injected Neck: supple, symmetrical, no adenopathy Lungs: no respiratory distress, breathing comfortably. Abdomen: soft, no masses palpable, non-tender, non-distended, bowel sounds normal Extremities: no ulcers, no edema Joints: no synovitis Skin: No rashes or lesions Neuro: Converses and ambulates appropriately Relevant Laboratories: Lab Results Component Value Date WBC 6.7 02/12/2024 HGB 12.7 (L) 02/12/2024 HGB 15.0 07/29/2021 HCT 44.7 02/12/2024 HCT 49.4 07/29/2021 PLT 381 02/12/2024 MCV 68.6 (L) 02/12/2024 MCV 81.7 07/29/2021 Lab Results Component Value Date NA 137 02/12/2024 K 4.4 02/12/2024 CL 103 02/12/2024 CO2 27 02/12/2024 CA 9.1 02/12/2024 BUN 12 02/12/2024 CREAT 1.18 02/12/2024 GLUCOSE 95 02/12/2024 TOTALPROTEIN 7.3 02/12/2024 TOTALPROTEIN 6.9 08/08/2022 ALBUMIN 4.1 02/12/2024 ALBUMIN 3.7 08/08/2022 BILITOTAL 0.5 02/12/2024 ALKPHOS 64 02/12/2024 ALKPHOS 79 08/08/2022 AST 19 02/12/2024 ALT 23 02/12/2024 ANIONGAP 10 05/20/2020 BCRATIO SEE NOTE: 02/12/2024 Last Endoscopies: 07/2024 pouchoscopy Difficulty intubating pre-pouch ileum given looping and [...] biopsied with a cold forceps for histology. 07/2022 pouchoscopy of which I personally reviewed and interpreted the images notable for deep ulcerations in the prepouch ileum and proximal pouch with surrounding erythema Pertinent Imagin11/2022 ultrasound of the liver with cholelithiasis Assessment/Plan: Edgardo Elkins is a 53 y.o. male with a history of ulcerative colitis status post colectomy now with fistulizing Crohn's disease with perianal involvement who presents to IBD clinic for follow-up. Original dx of severe UC s/p total colectomy with J pouch 2001 that has had chronic pouchitis and perianal fistulas, leading us to change diagnosis to fistulizing Crohn's disease with perianal involvement. Last pouchoscopy was 07/2022 with deep ulceration and surrounding erythema in the pre pouch ileum, changed to skyrizi. Had flare after antibiotics and started skyrizi. 07/2024 pouchoscopy significantly improved with few erosions in the pre pouch ileum. Has remained on budesonide low-dose. --Reviewed natural history and treatment of Crohn's disease including that it is a chronic condition with a relapsing/remitting course. Reviewed risks of flare, complications and surgery. Reviewed goals of care in Crohn's disease including induction and maintenance of a steroids-free clinical and endoscopic remission. We reviewed the potential benefits to endoscopic improvement/remission. We also reviewed the importance of compliance with medical therapies. We discussed the role of genetics andvarious environmental factors including stress, diet, and smoking on disease course. --continue skyrizi every 8 weeks. --Patient has remained on budesonide as he was not aware this was something to be taken short-term.He cut back to every other day about 6 months ago. Discussed stopping the medication right now. --If change in symptoms after stopping budesonide can plan to optimize Skyrizi to every 4 weeks instead of adding back steroid --Consider repeat pouchoscopy again in 1 year to monitor disease given that he was not in deep remission yet. If worsening at that time would optimize to every 4 weeks. --The patient will need regular lab tests every 3-4 months given the risk of lab abnormalities while on biologic therapy. --Regular follow-up in clinic will also be required. --I advised the patient of the existence of many other very rare but serious side effects and encouraged him to read the Crohn's and Colitis website for more information. --I advised the patient that he will need insurance approval for any of these medications. --Avoid NSAIDs. Discussed approximate 20% risk of flare with NSAID use in otherwise quiescent disease. Prefer celebrex over non-specific NSAIDs --Avoid smoking --Reviewed rare risk of dysplasia of the pouch. For screening recommend pouchoscopy every 3 years 2. High risk medication requiring frequent monitoring-skyrizi 3. Vitamin B12 deficiency - not taking regular B12 supplement, recent level low at 193. Discussed starting IM supplementation but patient would like to try regular oral supplement or switching to IM. -Start vitamin B12 2,000 mcg per day 4.Vitamin D deficiency, 50,000 IU every 2 weeks 5. Iron deficiency - could not tolerate oral iron, GI side effects in the past. Recent labs with anemia. No recent iron studies. Will repeat iron studies and if iron deficient plan for IV iron. 6. [facility] paperwork, will complete and send back to patient # IBD-Related Health Maintenance - In addition to safety labs, the patient should be up to date with the following through PCPs office except where otherwise stated: - Seasonal flu shot (not the live version) - COVID vaccine - PCV20 - If adult patients previously received a partial vaccine series, the series should be completed. If PPSV23 was the outstanding vaccine, then PPSV23 should be used. If PCV13 was the outstanding vaccine, then PCV20 should be used. - Tdap vaccine/booster - HPV vaccine - Shingrix - Hepatitis B vaccine if not immune - Hepatitis A vaccine if not immune - Yearly dermatologic skin exam - DEXA - if ongoing corticosteroid treatment, cumulative prior use of corticosteroids exceeds 3 months or history of low-trauma fractures Plan as detailed above: Continue skyrizi every 8 weeks Stop the budesonide Get labs done at [facility] or any [facility] lab Take 2,000 mcg daily of vitamin B12 - you can buy this over the counter Try to limit ibuprofen as much as you can Follow-up in in 5 months with Kitty damon given exacerbation of chronic disease with monitoring of labs, imaging and high risk Rx. Jessica Bejarano MD [facility] Inflammatory Bowel Disease CC: Jasiel Freeman MD Orders Placed This Encounter CBC WITH DIFFERENTIAL COMPREHENSIVE METABOLIC PANEL IRON, TIBC, AND PERCENT SATURATION FERRITIN C-REACTIVE PROTEIN Current Outpatient Medications: ergocalciferol (VITAMIN D2) 50,000 unit capsule, TAKE 1 CAPSULE BY MOUTH EVERY 7 DAYS FOR 60 DAYS, THEN 1 CAPSULE (50,000 UNITS) EVERY 30 DAYS., Disp: 12 Capsule, Rfl: 1 risankizumab-rzaa (Skyrizi) 360 mg/2.4 mL (150 mg/mL) [...] MOUTH DAILY., Disp: 270 Capsule, Rfl: 3 omeprazole (PriLOSEC) 40 mg [...] Misc.(Non-Drug; Combo Route) route., Disp: , Rfl: ING ENGINEER documented in this encounter Miscellaneous Notes * Patient Instructions - Jessica Bejarano MD - 09/11/2024 12:37 PM FORGING ENGINEER Thank you for entrusting your healthcare to the physicians at [facility] Inflammatory Bowel Disease and Gastroenterology Following your visit, you may receive a survey via email or [employer]. Dr. Bejarano encourages you to respond to this confidential survey about your care. If you received excellent care, Dr. Bejarano would appreciate your evaluation. Your feedback helps us to provide quality service at every visit. Thank you for your help in making our practice meet the highest expectations! [facility] Inflammatory Bowel Disease and Gastroenterology Center [address] [place] [address] [place] [address] Other important numbers to add to our contact info: After hours physician exchange: [phone] or MRI: Call [phone] To schedule an EGD/Colonoscopy/Flexible Sigmoidoscopy: Call [phone] IMPORTANT: The following information and instructions are from your visit today: Continue skyrizi every 8 weeks Stop the budesonide Get labs done at [facility] or any [facility] lab Take 2,000 mcg daily of vitamin B12 - you can buy this over the counter Try to limit ibuprofen as much as you can Follow-up in in 5 months with Kitty Bejarano MD [facility] Gastroenterology ING ENGINEER documented in this encounter Plan of Treatment Upcoming Encounters Date Type Department Care Team (Late st Contact Info) Description 02/13/2025 10:30 AM CDT Office Visit [facility] IBD [facility] Gastroenterology [facility] [place] [address] [place] [address] Kitty Dover, MIRTA [address] [place] [address] Scheduled Orders Name Type Priority Associated Diagnoses Orde r Schedule CBC WITH DIFFERENTIAL Lab Routine Crohn's disease of small intestine without complication Expected: 09/11/2024, Expires: 09/11/2025 COMPREHENSIVE METABOLIC PANEL Lab Routine Crohn's disease of small intestine without complication Expected: 09/11/2024, Expires: 09/11/2025 IRON, TIBC, AND PERCENT SATURATION Lab Routine Crohn's disease of small intestine without complication Expected: 09/11/2024, Expires: 09/11/2025 FERRITIN Lab Routine Crohn's disease of small intestine without complication Expected: 09/11/2024, Expires: 09/11/2025 C-REACTIVE PROTEIN Lab Routine Crohn's disease of small intestine without complication Expected: 09/11/2024, Expires: 09/11/2025 documented as of this encounter Visit Diagnoses Diagnosis Crohn's disease of small intestine without complication- Primary Regional enteritis of small intestine Immunodeficiency due to treatment with immunosuppressive medication Unspecified disorder of immune mechanism Vitamin B12 deficiency (non anemic) Other B-complex deficiencies Vitamin D deficiency Unspecified vitamin D deficiency Iron deficiency anemia due to chronic blood loss Iron deficiency anemia secondary to blood loss (chronic) documented in this encounter Additional Health Concerns Assessment Noted Time PHQ-9 Depression Total Score: 2 12/08/19 23 11:00 AM FORGING ENGINEER documented as of this encounter Care Teams Bridge Teacher Relationship Specialty Start Date End Date Jasiel Freeman MD [address] [place] [phone] PCP - General Family Practice 08/15/17 documented as of this encounter
--- OUTSIDE RECORDS SUMMARY | 2024-10-24 05:28 | XMS_ITS | Encounter Summary ---
Author Organization [facility] Address [address] [place] [address] Care Team Providers Care Spray Applicator Name Role Phone Jasiel Freeman MD Primary Care Provider Encounter Details Date Type Department Care Team (Late st Contact Info) Description 03/12/2024 External Device Data STL ABSTRACTION Provider, Abstract [...] 10:30 AM CDT Office Visit [facility] IBD [facility]astroenterology [facility] [place] [address] [place] [address] Kitty Dover, MIRTA [address] [place] [address] documented as of this encounter Visit Diagnoses Not on filedocumented in this encounter Additional Health Concerns Assessment Noted Time PHQ-9 Depression Total Score: 2 12/08/19 23 11:00 AM YOUTH PROGRAM DIRECTOR documented as of this encounter Care Teams Spray Applicator Relationship Specialty Start Date End Date Jasiel Freeman MD [address] [place] [address] PCP - General Family Practice 08/15/17 documented as of this encounter
--- OUTSIDE RECORDS SUMMARY | 2024-10-24 05:28 | XMS_ITS | Encounter Summary ---
Author Organization [facility] Address [address] [place]ila: [place] [address] Care Team Providers Care Accounting Bookkeeper Name Role Phone Jasiel Freeman MD Primary Care Provider Encounter Details Date Type Department Care Team (Latest Contact Info) Description 12/15/2022 Travel Social History Tobacco Use Types Packs/Day [...] Coronavirus/COVID-19? No / Unsure 12/15/2022 2:36 PM CRAPS MANAGER documented as of this encounter Plan of Treatment Upcoming Encounters Date Type Department Care Team (Late st Contact Info) Description 02/13/2025 10:30 AM CDT Office Visit [facility] IBD [facility] Gastroenterology [facility] [place] [address] [place] [address] Kitty Dover, ANP [address] [phone] documented as of this encounter Visit Diagnoses Not on filedocumented in this encounter Additional Health Concerns Assessment Noted Time PHQ-9 Depression Total Score: 2 12/08/19 23 11:00 AM CRAPS MANAGER documented as of this encounter Care Teams Accounting Bookkeeper Relationship Specialty Start Date End Date Jasiel Freeman MD [address] [place] [phone] PCP - General Family Practice 08/15/17 documented as of this encounter
--- OUTSIDE RECORDS SUMMARY | 2024-10-24 05:28 | XMS_ITS | Encounter Summary ---
Author Organization [facility] Address [address] [place] [address] Care Team Providers Care Drop Machine Operator Name Role Phone Jasiel Freeman MD Primary Care Provider Encounter Details Date Type Department Care Team (Late st Contact Info) Description 12/12/2023 External Device Data STL ABSTRACTION Provider, Abstract [...] Description 02/13/2025 10:30 AM CDT Office Visit [facility] IBD [facility] Gastro[facility]ology [facility] [place] [address] [place] [address] Kitty Dover, MIRTA [address] [place] [address] documented as of this encounter Visit Diagnoses Not on filedocumented in this encounter Additional Health Concerns Assessment Noted Time PHQ-9 Depression Total Score: 2 12/08/19 23 11:00 AM CEMENT LOADER documented as of this encounter Care Teams Drop Machine Operator Relationship Specialty Start Date End Date Jasiel Freeman MD [address] [place] [address] PCP - General Family Practice 08/15/17 documented as of this encounter
--- OUTSIDE RECORDS SUMMARY | 2024-10-24 05:28 | XMS_ITS | Encounter Summary ---
Author Organization [facility] Address [address] [place] [address] Care Team Providers Care Customer Counter Representative Name Role Phone Jasiel Freeman MD Primary Care Provider Reason for Visit * Reason Comments Follow Up Encounter Details Date Type Department Care Team (Latest Contact Info) Description 12/08/2022 11:00 AM EMISSIONS TESTING AND REPAIR TECHNICIAN Office Visit [facility] [address] [phone] Annette Whitney MD [address] [facility] [facility] [address] [place] [address] Crohn's disease with fistula, unspecified gastrointestinal tract location (Primary Dx); Abnormal LFTs (liver function tests); Acute diarrhea; Ulcerative pancolitis with other complication; High risk medication use; Immunodeficiency due to treatment with immunosuppressive medication; Pouchitis Social History Tobacco Use Types Packs/Day Years [...] Coronavirus/COVID-19? No / Unsure 12/15/2022 2:36 PM EMISSIONS TESTING AND REPAIR TECHNICIAN documented as of this encounter Last Filed Vital Signs Vital Sign Reading Time Taken Comments Blood Pressure 138/87 12/08/2022 11:04 AM EMISSIONS TESTING AND REPAIR TECHNICIAN Pulse 96 12/08/2022 11:04 AM EMISSIONS TESTING AND REPAIR TECHNICIAN Temperature 37.2 ??C (99 ??F) 12/08/2022 11:04 AM EMISSIONS TESTING AND REPAIR TECHNICIAN Respiratory Rate - - Oxygen Saturation 96% 12/08/2022 11:04 AM EMISSIONS TESTING AND REPAIR TECHNICIAN Inhaled Oxygen Concentration - - Weight 84.6 kg (186 lb 6.4 oz) 12/08/2022 11:04 AM EMISSIONS TESTING AND REPAIR TECHNICIAN Height 175.3 cm (5' 9 ) 12/08/2022 11:04 AM EMISSIONS TESTING AND REPAIR TECHNICIAN Body Mass Index 27.53 12/08/2022 11:04 AM EMISSIONS TESTING AND REPAIR TECHNICIAN documented in this encounter Progress Notes * Annette Whitney MD - 12/08/2022 11:15 AM CST [facility] Annette Whitney MD Chief Complaint Patient presents with Follow Up IBD Hx: The patient's IBD History has been copied and pasted from previous visits and updated at every visit. Dx 2000 He has been on Humira, Remicade, Xifaxin, Cipro, Augmentin, Vanc, prednisone, Protonix, Asacol, cefdinir Entyvio 300mg q 4 weeks. 07/2022: scope with inflammation at the pre-pouch ileum that was severe. 10/2022- start skirizi, one week later back pain, dirty UA Edgardo Elkins is a 52 y.o. male with hx of UC s/p total [facility]. 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 He was last seen in clinic by SHAGGY Richards, 07/2021. His last pouchoscopy on entyvio showed severe inflammation in the prepouch ileum. He reports that after his first infusion he had dark urine. He had a UTI, and was given amoxicillin, and then after this he started having increase in diarrhea. Stomach cramping, increased urgency, and sweats, no nausea Has second skirizi infusion in 1 week. Elevated LFTs on his recent labs, reviewed on his ap from his PCP. Normal CBC, UA with bacteria andprotein. BP 138/87 Pulse 96 Temp 99 ??F (37.2 ??C) Ht 5' 9 (1.753 m) Wt 84.6 kg (186 lb 6.4 oz) SpO2 96% BMI 27.53 kg/m?? Appears nontoxic, EOMI, anicteric, unlabored respirations, AO x 3 without motor deficits, no rashes Abdomen is soft nontender, nondistended. Assessment: Edgardo Elkins is a 52 y.o. male [...] Hasflare after antibiotics and change to skyrizi. [facility] paperwork updated today. Check c. Diff, repeat [...] Monday. 6 weeks follow up with Kitty. On the day of the visit, I spent 40 minutes on patient related care, record review and documentation Past Medical History: I updated the electronic medical records of any updates in patients medical, social, and family hx. Past Medical History: Diagnosis Date Arthritis Asthma as a child Injury of face and neck herniated disk Ulcerative colitis Unspecified adverse effect of anesthesia violent after 1st surgery Past Surgical History: Procedure Laterality Date HX COLECTOMY 2001 HX HIP REPLACEMENT, TOTAL Left 10/08/2017 MI COLONOSCOPY FLX DX W/COLLJ SPEC WHEN PFRMD 12/08/2009 COLONOSCOPY performed by LOUISE RIZO at [facility] MI COLONOSCOPY FLX DX W/COLLJ SPEC WHEN PFRMD 06/09/2014 COLONOSCOPY performed by Lane Ryan MD at [facility] GI [facility] MI DILAT RCT STRIX SPX UNDER ANES OTH/THN LOCAL 06/12/2012 RECTAL STRICTURE DILATATION performed by Lane Ryan MD at [facility] MI ENDOSCOPY UPPER SMALL INTESTINE 06/12/2012 SMALL BOWEL ENTEROSCOPY performed by Lane Ryan MD at [facility] MI ENDOSCOPY UPPER SMALL INTESTINE N/A 08/24/2017 SMALL BOWEL ENTEROSCOPY performed by Lane Ryan MD at [facility] MI ENDOSCOPY UPPER SMALL INTESTINE W/BIOPSY 02/28/2012 BOWEL SMALL BIOPSY ENDOSCOPIC performed by Lane Ryan MD at [facility] GI [facility] MI ESOPHAGOGASTRODUODENOSCOPY TRANSORAL DIAGNOSTIC 02/28/2012 ESOPHAGOGASTRODUODENOSCOPY performed by Lane Ryan MD at [facility] GI [facility] MI NDSC EVAL INTSTINAL POUCH DX W/COLLJ SPEC SPX 02/16/2012 POUCHOSCOPY performed by Louise Rizo MD at [facility] MI NDSC EVAL INTSTINAL POUCH DX W/COLLJ SPEC SPX N/A 08/15/2022 POUCHOSCOPY performed by Annette Whitney MD at [facility] MI SIGMOIDOSCOPY FLX DX W/COLLJ SPEC BR/WA IF PFRMD 02/16/2012 SIGMOIDOSCOPY FLEXIBLE performed by Louise Rizo MD at [facility] GI [facility] MI SIGMOIDOSCOPY FLX DX W/COLLJ SPEC BR/WA IF PFRMD N/A 06/12/2020 CHECKOUT SIGMOIDOSCOPY FLEXIBLE performed by Annette Whitney MD at [facility] Family History Problem Relation Name Age of Onset Heart Disease Father Hypertension Mother Healthy Sister Healthy Brother Colon Cancer Neg Hx Social History Socioeconomic History Marital status: Spouse name: Not on file Number of children: Not on file Years of education: Not on file Highest education level: Not on file Occupational History Employer: [employer] Employer: [employer] Tobacco Use Smoking status: Former Packs/day: 0.50 Years: 10.00 Pack years: 5.00 Types: Cigarettes Quit date: 06/09/2011 Years since quittin.5 Smokeless tobacco: Never Tobacco comments: off & [...] Infliximab Rash Other reaction(s): Sneezing flushed face Relevant Laboratories: Lab Results Component Value Date WBC 6.9 08/08/2022 HGB 14.5 08/08/2022 HGB 15.0 07/29/2021 HCT 47.8 08/08/2022 HCT 49.4 07/29/2021 PLT 334 08/08/2022 MCV 79.4 (L) 08/08/2022 MCV 81.7 07/29/2021 Lab Results Component Value Date NA 139 12/08/2022 K 4.6 12/08/2022 CL 105 12/08/2022 CO2 29 12/08/2022 CA 8.6 12/08/2022 BUN 20 12/08/2022 CREAT 1.16 12/08/2022 GLUCOSE 77 12/08/2022 TOTALPROTEIN 6.7 12/08/2022 TOTALPROTEIN 6.9 08/08/2022 ALBUMIN 3.2 (L) 12/08/2022 ALBUMIN 3.7 08/08/2022 BILITOTAL 0.8 12/08/2022 ALKPHOS 232 (H) 12/08/2022 ALKPHOS 79 08/08/2022 AST 46 (H) 12/08/2022 ALT 73 (H) 12/08/2022 ANIONGAP 10 05/20/2020 BCRATIO NOT APPLICABLE 12/08/2022 [...] patchy and mild active enteritis. Pertinent Imaging: Annette Whitney MD [facility] CC: Jasiel Freeman MD Orders Placed This Encounter CLOSTRIDIUM DIFFICILE TOXIN HEPATIC FUNCTION PANEL CK VITAMIN B12 AND FOLATE VITAMIN D 25 HYDROXY BASIC METABOLIC PANEL montelukast (SINGULAIR) 10 mg tablet amoxicillin (AMOXIL) 500 mg capsule OTHER hyoscyamine ER 0.375 mg tablet,extended release,12 hr Current Outpatient Medications: montelukast (SINGULAIR) 10 mg tablet, Take 10 mg by mouth daily., Disp: , Rfl: amoxicillin (AMOXIL) 500 mg capsule, TAKE 1 CAPSULE BY MOUTH THREE TIMES A DAY, Disp: , Rfl: OTHER, , Disp: , Rfl: hyoscyamine ER 0.375 mg tablet,extended release,12 hr, Take 1 Tablet (0.375 mg) by mouth every 12 hours as needed for Discomfort., Disp: 60 Tablet, Rfl: 1 risankizumab-rzaa (SKYRIZI IV), Inject 600 mg by [...] encounter Miscellaneous Notes * Patient Instructions - Annette Whitney MD - 12/08/2022 11:26 AM EMISSIONS TESTING AND REPAIR TECHNICIAN Thank you for entrusting your healthcare to the physicians at [facility] Disease and Gastroenterology IMPORTANT: The following information and instructions are from your visit today: Blood work Stool test Start hyoscyamine twice per day If the blood work looks OK will proceed with Mayorizi #2. Keep hydrated, try some gatorade to help with fluids. Let Irina know how you are doing when she sees you on Monday. 6 weeks follow up with Kitty. Following your visit, you may receive a survey via email or [employer]. Dr. Nair encourages you to respond to this confidential survey about your care. If you received excellent care, Dr. Nair would appreciate your evaluation. Your feedback helps us to provide quality service at every visit. Thank youfor your help in making our practice meet the highest expectations! [facility] If you have IBD, this is the preferredoffice to contact. [address] [place] [address] Other important numbers to add to our contact info: After hours physician exchange: [phone] or MRI: Call [phone] To schedule an EGD/Colon/Flex Sig: Call [phone] We are committed to your wellness. Inflammatory bowel disease is a serious chronic condition the disease and the medications used to treat it require close follow up and monitoring. Sometimes if you have problems arise we may need to do some testing or may direct you to your primary care doctor or urgent care/ER depending on the problem. Often times having some labs done before an urgent visit can make our time more productive. It is important to keep routine follow up appointments to ensure your overall health, and to refillmedications and monitor safety. If you have GI related problems before an appointment please let us know in case we need to see yousooner or do some testing. Healthy Living also involves preventative measure including a healthy diet, vaccinations and appropriate screening exams, below are a list of what I recommend Diet Recommendations: In general a mediterranean style diet is recommended, increasing intake of omega 3 fatty acids and real foods and decreasing processed food and refined carbohydrates. Pap Smears - Annual Pap smears are recommended if you are female and on any biologic therapy or immune modulator. Annual Dermatologic Exam or Skin exam by your primary care physician or a strainer mill operator as patientswith IBD are at increased risk of skin cancer, moreso if on immunosuppressant medications. Bone health - IBD can weaken your bones. We recommend Calcium 8823-0042 mg daily, and vitamin D 800-1000 IU daily. These can be obtained over the counter and can help prevent fractures. Eye exam: Patients with IBD are at increased risk of disorders of the eye. We recommend annual eye exams. Multivitamin - all patients with IBD should take a daily multivitamin. Avoid: Smoking, heavy alcohol use, NSAIDs (ibuprofen, motrin, aleve, naproxen, etc) Health Maintenance for patients with IBD (Inflammatory Bowel Disease): Immunizations:- With IBD you are at higher risk of getting sick from routine infections. The following vaccinations are recommended by the Crohn's and Colitis Foundation. ~~LIVE VACCINES ARE NOT RECOMMENDED~~ Influenza (inactive) administered Pneumococcal PCV13 administered (PREVNAR 13) Pneumococcal PPSV23 (PNUEMOVAX 23) Tdap >7 yrs HPV series (between ages of 11-45 years) Meningococcal meningitis (If at risk) Hepatitis A series (If not immune) Hepatitis B series (If not immune) Herpes Zoster (CDC recommends Shingrix) COVID Vaccine plus booster (mRNA is preferred) SIONS TESTING AND REPAIR TECHNICIAN documented in this encounter Plan of Treatment Upcoming Encounters Date Type Department Care Team (Late st Contact Info) Description 02/13/2025 10:30 AM CDT Office Visit [facility] [place] [address] [facility] [address] [place] [address] Kitty Dover ANP [address] [facility] [address] [place] [address] documented as of this encounter Procedures Procedure Name Priority Date/Time Associated Diagnosis Comments C. DIFFICILE DETECTION Routine 12/09/2022 12:19 PM EMISSIONS TESTING AND REPAIR TECHNICIAN Abnormal LFTs (liver function tests) Acute diarrhea VITAMIN B12 AND FOLATE Routine 12/08/2022 12:33 PM EMISSIONS TESTING AND REPAIR TECHNICIAN Abnormal LFTs (liver function tests) Ulcerative pancolitis with other complication VITAMIN D 25 HYDROXY Routine 12/08/2022 12:33 PM EMISSIONS TESTING AND REPAIR TECHNICIAN Abnormal LFTs (liver function tests) Ulcerative pancolitis with other complication CK Routine 12/08/2022 12:33 PM EMISSIONS TESTING AND REPAIR TECHNICIAN Abnormal LFTs (liver function tests) HEPATIC FUNCTION PANEL Routine 12/08/2022 12:33 PM EMISSIONS TESTING AND REPAIR TECHNICIAN Abnormal LFTs (liver function tests) BASIC METABOLIC PANEL Routine 12/08/2022 12:33 PM EMISSIONS TESTING AND REPAIR TECHNICIAN Abnormal LFTs (liver function tests) Ulcerative pancolitis with other complication documented in this encounter Results * C. DIFFICILE DETECTION (12/09/2022 12:19 PM EMISSIONS TESTING AND REPAIR TECHNICIAN) C DIFFICILE TOXIN B QUAL NOT DETECTED NOT DETECTED [facility] Comment: This test is for use only with liquid or soft stools; performance characteristics of other clinical specimen types have not been established. This assay was performed by [employer](R) PCR. The performance characteristics of this assay have been determined by [facility]. Performance characteristics refer to the analytical performance of the test. For additional information, please refer to http://education.[employer]/faq/VZX113 (This link is being provided for informational/educational purposes only.) Test Performed at: [facility] [id number] [place] ??[phone] Conner Darby MD Stool STOOL SPECIMEN / Unknown 12/09/2022 12:19 PM EMISSIONS TESTING AND REPAIR TECHNICIAN 12/10/2022 3:37 AM EMISSIONS TESTING AND REPAIR TECHNICIAN Annette Whitney MD MICROBIOLOGY - GENERAL ORDERABLES Performing Organization Address City/State/[facility] Co de Phone Number [facility] [phone] [facility] [address] [place] [address] * BASIC METABOLIC PANEL (12/08/2022 12:33 PM EMISSIONS TESTING AND REPAIR TECHNICIAN) Pathologist [facility] GLUCOSE 77 65 - 99 mg/dL [facility] Comment: ? Fasting reference interval BUN 20 7 - 25 mg/dL [facility] CREATININE 1.16 0.70 - 1.30 mg/dL [facility] GFR 76 > OR = 60 mL/min/1. 73m2 [facility] Comment: The eGFR is based on the CKD-EPI 2020 equation. To calculate the new eGFR from a previous Creatinine or Cystatin C result, go to https://www.kidney.org/professionals/ kdoqi/gfr%5Fcalculator BUN/CREAT RATIO NOT APPLICABLE 6 (calc) [facility] SODIUM 139 135 - 146 mmol/L [facility] POTASSIUM 4.6 3.5 - 5.3 mmol/L [facility] CHLORIDE 105 98 - 110 mmol/L [facility] CO2 29 20 - 32 mmol/L [facility] CALCIUM 8.6 8.6 - 10.3 mg/dL [facility] Comment: Test Performed at: [facility] ??[phone] Conner Darby MD Blood 12/08/2022 12:3 3 PM EMISSIONS TESTING AND REPAIR TECHNICIAN 12/08/2022 12:34 PM EMISSIONS TESTING AND REPAIR TECHNICIAN Annette Whitney MD CHEMISTRY ORDE [facility] [phone] [facility] [address] * VITAMIN D 25 HYDROXY (12/08/2022 12:33 PM EMISSIONS TESTING AND REPAIR TECHNICIAN) VITAMIN D, 25 OH, TOTAL 46 30 - 100 ng/mL [facility] Comment: Vitamin D Status ? 25-OH Vitamin D: Deficiency: ?<20 ng/mL Insufficiency: ? 20 - 29 ng/mL Optimal: ? > or = 30 ng/mL For 25-OH Vitamin D testing on patients on D2-supplementation and patients for whom quantitation of D2 and D3 fractions is required, the [facility]() 25-OH VIT D, (D2,D3), LC/MS/MS is recommended: order code 93194 (patients >2yrs). See Note 1 Note 1 For additional information, please refer to http://education.[employer]air/faq/GAJ522 (This link is being provided for informational/ educational purposes only.) Test Performed at: [facility] ??[phone] Conner aDrby MD Blood 12/08/2022 12:3 3 PM EMISSIONS TESTING AND REPAIR TECHNICIAN 12/08/2022 12:34 PM EMISSIONS TESTING AND REPAIR TECHNICIAN Annette Whitney MD CHEMISTRY SHELBY PRITCHETT Performing Organization Address City/State/[facility] Co de Phone Number [facility] [phone] [address] * VITAMIN B12 AND FOLATE (12/08/2022 12:33 PM EMISSIONS TESTING AND REPAIR TECHNICIAN) VITAMIN B12 654 200 - 1100 pg/mL [facility] FOLATE, SERUM 9.3 ng/mL [facility] Comment: ? Reference Range ? Low: ? <3.4 ? Borderline: ?3.4-5.4 ? Normal: ?>5.4 Test Performed at: [facility] ??[phone] Conner Darby MD Blood 12/08/2022 12:3 3 PM EMISSIONS TESTING AND REPAIR TECHNICIAN 12/08/2022 12:34 PM EMISSIONS TESTING AND REPAIR TECHNICIAN Annette Whitney MD CHEMISTRY ORDToño PRITCHETT Performing Organization Address City/[facility]/ZIP Co de Phone Number [facility] [phone] [facility] [address] [place] [phone] * CK (12/08/2022 12:33 PM EMISSIONS TESTING AND REPAIR TECHNICIAN) Pathologist [facility] CK 69 44 - 196 U/L [facility] Comment: Test Performed at: [facility] ??[phone] Conner Darby MD Blood 12/08/2022 12:3 3 PM EMISSIONS TESTING AND REPAIR TECHNICIAN 12/08/2022 12:34 PM EMISSIONS TESTING AND REPAIR TECHNICIAN Annette Whitney MD CHEMISTRY [facility] Performing Organization Address [facility] Co de Phone Number [facility] [phone] [facility] [address] * (ABNORMAL) HEPATIC FUNCTION PANEL (12/08/2022 12:33 PM EMISSIONS TESTING AND REPAIR TECHNICIAN) Pathologist [facility] TOTAL PROTEIN 6.7 6.1 - 8.1 g/dL [facility] ALBUMIN 3.2(L) 3.6 - 5.1 g/dL [facility] GLOBULIN 3.5 1.9 - 3.7 g/dL (calc) [facility] ALBUMIN/GLOBULIN RATIO 0.9(L) 1.0 - 2.5 (calc) [facility] BILIRUBIN TOTAL 0.8 0.2 - 1.2 mg/dL [facility] BILIRUBIN DIRECT 0.3(H) < OR = 0.2 mg/dL [facility] BILIRUBIN INDIRECT 0.5 0.2 - 1.2 mg/dL (calc) [facility] ALKALINE PHOSPHATASE 232(H) 35 - 144 U/L [facility] AST 46(H) 10 - 35 U/L [facility] ALT 73(H) 9 - 46 U/L [facility] Comment: Test Performed at: [facility] [address] [place] ??[address] Conner Darby MD Blood 12/08/2022 12:3 3 PM EMISSIONS TESTING AND REPAIR TECHNICIAN 12/08/2022 12:34 PM EMISSIONS TESTING AND REPAIR TECHNICIAN Annette Whitney MD CHEMISTRY SHELBY PRITCHETT [facility] Organization Address City/State/ZIP Co de Phone Number [facility] [phone] [facility] [address] [place] [address] documented in this encounter Visit Diagnoses Diagnosis Crohn's disease with fistula, unspecified gastrointestinal tract location- Primary Abnormal LFTs (liver function tests) Other abnormal blood chemistry Acute diarrhea Diarrhea Ulcerative pancolitis with other complication High risk medication use Encounter for long-term (current) use of other medications Immunodeficiency due to treatment with immunosuppressive medication Unspecified disorder of immune mechanism Pouchitis documented in this encounter Additional Health Concerns Infection Onset Date Last Indicated Resolved Time R/O C. diff 12/11/2022 12/09/2022 12/11/2022 1:26 PM EMISSIONS TESTING AND REPAIR TECHNICIAN Assessment Noted Time PHQ-9 Depression Total Score: 2 12/08/19 23 11:00 AM EMISSIONS TESTING AND REPAIR TECHNICIAN documented as of this encounter Care Teams Customer Counter Representative Relationship Specialty Start Date End Date Jasiel Freeman MD [address] [place] [phone] PCP - General Family Practice 08/15/17 documented as of this encounter
--- OUTSIDE RECORDS SUMMARY | 2024-10-24 05:28 | XMS_ITS | Encounter Summary ---
Author Organization [facility] Address [address] [place] [address] Care Team Providers Care Apprentice Name Role Phone Jasiel Freeman MD Primary Care Provider Encounter Details Date Type Department Care Team (Late st Contact Info) Description 04/09/2024 External Device Data STL ABSTRACTION Provider, Abstract [...] 10:30 AM CDT Office Visit [facility] [place] [address] [place] [address] Kitty Dvoer, MIRTA [address] [place] [address] documented as of this encounter Visit Diagnoses Not on filedocumented in this encounter Additional Health Concerns Assessment Noted Time PHQ-9 Depression Total Score: 2 12/08/19 23 11:00 AM YARN FINISHER documented as of this encounter Care Teams Apprentice Relationship Specialty Start Date End Date Jasiel Freeman MD [address] [place] [address] PCP - General Family Practice 08/15/17 documented as of this encounter
--- OUTSIDE RECORDS SUMMARY | 2024-10-24 05:28 | XMS_ITS | Clinical Summary ---
Author Organization [facility] Address [address] [place] [address] Phone Care Team Providers Care International Student Advisor Name Role Phone Jasiel Freeman MD Primary Care Provider Allergies Active Allergy Reactions Criticality Noted Date Comments Infliximab Rash Medium 07/26/2012 Other reaction(s): Sneezing flushed face Medications Medication Sig Dispensed Refills Start Date End Date Status TESTOSTERONE, BULK, MISC 1 mL by Misc.(Non-Drug; Combo Route) route. Active SOLU-MEDROL, PF, 40 mg/mL Recon Soln ADMINISTER 40 MG VIA SLOW INTRAVENOUS PUSH IN CASE OF SEVERE ALLERGICREACTION. 1 Each 9 Active BD PRECISIONGLIDE 25 gauge x 1 Needle USE DIRECTED TO ADMINISTER SOLU CORTEF 5 Each 1 9 Active diphenhydrAMINE (BENADRYL) 50 mg/mL Solution ADMINISTER 25 MG VIA SLOW INTRAVENOUS PUSH IN CASE OF SEVERE ALLERGICREACTION. DISCARD EXCESS 1 mL 9 Active Syringe with Needle, Disp, (BD Luer-Jesusita Syringe) 3 mL 23 gauge x 1 1/2 Syringe For use with B12 injections 12 Each 2 0 Active ondansetron (ZOFRAN) 4 mg Tablet Take 1 Tablet (4 mg) by mouth every 8 hours as needed for Nausea/Emesis. 15 Tablet None 0 Active omeprazole (PriLOSEC) 40 mg Capsule, Delayed Release(E.C.) Take 40 mg by mouth daily. 2 Active terbinafine HCL (LamISIL) 250 mg tablet Take 250 mg by mouth daily. 2 Active testosterone cypionate (DEPO-TESTOSTERONE) 200 mg/mL Oil INJECT 1ML INTRAMUSCULARLY WEEKLY 2 Active zolpidem (AMBIEN) 5 mg tablet TAKE 1 TABLET BY MOUTH AT BEDTIME NEEDED FOR 30 DAYS 2 Active budesonide (ENTOCORT EC) 3 mg Enteric Coated 24 hour capsule TAKE 3 CAPSULES (9 MG) BY MOUTH DAILY. 270 Capsule 3 3 Active risankizumab-rzaa (SKYRIZI IV) Inject 600 mg by intravenous injection. Administer 600 mg IV on weeks 0, 4, and 8. Active montelukast (SINGULAIR) 10 mg tablet Take 10 mg by mouth daily. 3 Active OTHER 2 Active hyoscyamine ER 0.375 mg tablet,extended release,12 hr TAKE 1 TABLET (0.375 MG) BY MOUTH EVERY 12 HOURS NEEDED FOR DISCOMFORT. 60 Tablet 1 3 Active risankizumab-rzaa (Skyrizi) 360 mg/2.4 mL (150 mg/mL) wearable injector Inject 2.4 mL (360 mg) by subcutaneous injection every 8 weeks. 2.4 mL 5 4 Active ergocalciferol (VITAMIN D2) 50,000 unit capsuleIndications: Vitamin D deficiency TAKE 1 CAPSULE BY MOUTH EVERY 7 DAYS FOR 60 DAYS, THEN 1 CAPSULE (50,000 UNITS) EVERY 30 DAYS. 12 Capsule 1 4 Active Active Problems Problem Noted Date Diagnosed Date Partial small bowel obstruction 10/17/2024 Vitamin D deficiency 01/29/2019 Abdominal pain 06/26/2012 Inflammatory bowel disease 06/26/2012 Ulcerative colitis 02/23/2012 Pouchitis 02/23/2012 Acute bronchitis 02/23/2012 SIRS (systemic inflammatory response syndrome) 0 02/23/2012 Metabolic acidosis 02/23/2012 Sepsis, unspecified 02/23/2012 JORGE (acute kidney injury) 02/23/2012 Hyponatremia 02/22/2012 Abdominal pain 02/22/2012 Resolved Problems Problem Noted Date Diagnosed Date Resolved Date Malnutrition 02/27/2012 12/09/2022 Protein calorie malnutrition 02/24/2012 12/09/2022 Encounters Date Type Department Care Team Description 10/22/2024 External Device Data STL ABSTRACTION Provider, Abstract 10/17/2024 12:13 PM PHP WEB DEVELOPER - 10/18/2024 1:26 PM PHP WEB DEVELOPER Hospital Encounter [facility] Medicine [address] [place] [address] Adebayo Puentes MD Razzaque, Ahmer, Nuspl, Kari Ca DO Ulcerative colitis Discharge Disposition: Home or Self Care 10/17/2024 Travel 09/11/2024 12:30 PM PHP WEB DEVELOPER Office Visit [facility] [place] [address] [place] [address] Jessica Bejarano MD Crohn's disease of small intestine without complication (Primary Dx); Immunodeficiency due to treatment with immunosuppressive medication; Vitamin B12 deficiency (non anemic); Vitamin D deficiency; Iron deficiency anemia due to chronic blood loss 08/21/2024 External Device Data STL ABSTRACTION Provider, Abstract 08/06/2024 8:00 AM CDT - 08/06/2024 8:[address] [facility] [place] [address] [facility] [place] [address] Jessica Bejarano MD CHECKOUT POUCHOSCOPY 08/06/2024 7:50 AM CDT Anesthesia Event [facility] [place] [address] [facility] [place] [address] Louis Klein MD Irby, Caitlin W, AA-C 08/06/2024 7:22 AM CDT - 08/06/2024 9:03 AM CDT Hospital Encounter [facility] [place] [address] [facility] [place] [address] Jessica Bejarano MD Crohn's disease with fistula, unspecified gastrointestinal tract location Discharge Disposition: Home or Self Care from Last 3 Months Immunizations Name Administration Dates Next Due Skin Test TB 02/24/2012 Family History Medical History Relation Name Comments Healthy Brother Heart Disease Father Hypertension Mother Healthy Sister Colon Cancer Neg Hx Relation Name Status Comments Brother Father Mother Alive Sister Social History Tobacco Use Types Packs/Day Years [...] who hurts you emotionally and/or physically? No 10/17/2024 Food Insecurity Answer Date Recorded Social/Environmental Concerns No concerns Transportation Needs Answer Date Record ed Social/Environmental Concerns No concerns Housing Stability Answer Date Recorded Social/Environmental Concerns No concerns Utility Needs Answer Date Recorded Social/Environmental Concerns No concerns Sex and Gender Information Value Date Recorded Sex Assigned at Male 01/31/2024 6:50 AM CDT Gender Identity Male 01/31/2024 6:50 AM CDT Sexual Orientation Straight 01/31/2024 6: 50 AM CDT Last Filed Vital Signs Vital Sign Reading Time Taken Comments Blood Pressure 153/99 10/18/2024 12:28 PM PHP WEB DEVELOPER Pulse 95 10/18/2024 12:28 PM PHP WEB DEVELOPER Temperature 36.9 ??C (98.5 ??F) 10/18/2024 12:[address] Respiratory Rate 20 10/18/2024 4:59 AM PHP WEB DEVELOPER Oxygen Saturation 96% 10/18/2024 12:28 PM PHP WEB DEVELOPER Inhaled Oxygen Concentration - - Weight 81.6 kg (180 lb) 10/17/2024 2:14 PM PHP WEB DEVELOPER Height 175.3 cm (5' 9 ) 10/17/2024 2:14 PM PHP WEB DEVELOPER Body Mass Index 26.58 10/17/2024 2:14 PM PHP WEB DEVELOPER Plan of Treatment Upcoming Encounters Date Type Department Care Team (Late st Contact Info) Description 02/13/2025 10:30 AM CDT Office Visit [facility] [place] [address] [place] [address] Kitty Dover, ANP [address] [place] [address] Health Maintenance Due Date Last Done Comments Pre-Diabetes and Diabetes Screening 1970 DTAP/TDAP/TD VACCINES (1 - Tdap) 1989 HEPATITIS B VACCINES (1 of 3 - 19+ 3-dose series) 1989 FIT-DNA Q 3 years 2015 FIT/FOBT Q 1 year 2015 ZOSTER VACCINE (1 of 2) 2020 INFLUENZA VACCINE (#1) 2024 COLORECTAL SCREENING 06/09/2024 06/09/2014, 12/08/2009 Colorectal Cancer Screening 06/12/2025 Flex Sig/CT Colonography Q 5 years 06/12/2025 06/12/2020, 02/16/2012 PNEUMOCOCCAL VACCINE 0-64 YEARS Aged Out No longer eligible b ased on patient's age to complete this topic Procedures Procedure Name Priority Date/Time Associated Diagnosis Comments BASIC METABOLIC PANEL Routine 10/18/2024 3:22 AM PHP WEB DEVELOPER CBC WITH DIFFERENTIAL Routine 10/18/2024 3:22 AM PHP WEB DEVELOPER C. DIFFICILE DETECTION Routine 10/17/2024 4:50 PM PHP WEB DEVELOPER DIFFERENTIAL, MANUAL Routine 10/17/2024 2:51 PM PHP WEB DEVELOPER C-REACTIVE PROTEIN Routine 10/17/2024 2:51 PM PHP WEB DEVELOPER LACTIC ACID Stat 10/17/2024 2:51 PM PHP WEB DEVELOPER LIPASE Routine 10/17/2024 2:51 PM PHP WEB DEVELOPER PHOSPHORUS Routine 10/17/2024 2:51 PM PHP WEB DEVELOPER MAGNESIUM LEVEL Routine 10/17/2024 2:51 PM PHP WEB DEVELOPER CBC WITH DIFFERENTIAL Routine 10/17/2024 2:51 PM PHP WEB DEVELOPER COMPREHENSIVE METABOLIC PANEL Routine 10/17/2024 2:51 PM PHP WEB DEVELOPER POUCHOSCOPY REPORT 08/06/2024 12:05 PM CDT PATHOLOGY Pathology 08/06/2024 8:16 AM CDT Crohn's disease with fistula, unspecified gastrointestinal tract location VT NDSC EVAL INTSTINAL POUCH DX W/COLLJ SPEC SPX 08/06/2024 8:00 AM CDT Crohn's disease with fistula, unspecified gastrointestinal tract location Case Notes Mag citrate prep per Kavitha Dover PA- see Note in chart for clarification from Last 3 Months Results * (ABNORMAL) CBC WITH DIFFERENTIAL (10/18/2024 3:22 AM PHP WEB DEVELOPER) Only the most recent of2 resultswithin the time period is included. WBC 7.0 4.0 - 9.8 K/uL 10/18/2024 3:55 AM PHP WEB DEVELOPER [employer] [facility] RBC 5.94(H) 4.50 - 5.40 M/uL 10/18/2024 3:55 AM PHP WEB DEVELOPER [employer] [facility] HEMOGLOBIN 13.0(L) 13.6 - 16.5 g/dL 10/18/2024 3:55 AM PHP WEB DEVELOPER [employer] [facility] - [facility] HEMATOCRIT 43.6 40.0 - 48.0 % 10/18/2024 3:55 AM PHP WEB DEVELOPER [employer] [facility] MCV 73.4(L) 82.0 - 99.0 fL 10/18/2024 3:55 AM PHP WEB DEVELOPER [employer] [facility] MCH 21.9(L) 27.2 - 32.6 pg 10/18/2024 3:55 AM PHP WEB DEVELOPER [employer] [facility] MCHC 29.8(L) 31.5 - 35.5 g/dL 10/18/2024 3:55 AM PHP WEB DEVELOPER [employer] [facility] RDW 19.9(H) 11.5 - 14.5 % 10/18/2024 3:55 AM PHP WEB DEVELOPER [employer] [facility] RDW-STDEV 49.8(H) 37.1 - 48.7 fL 10/18/2024 3:55 AM PHP WEB DEVELOPER [employer] [facility] PLATELETS 248 140 - 350 K/uL 10/18/2024 3:55 AM PHP WEB DEVELOPER [employer] [facility] - [facility] MPV 9.5 9.3 - 12.4 fL 10/18/2024 3:55 AM PHP WEB DEVELOPER [employer] [facility] NEUTROPHILS 66 % 10/18/2024 3:55 AM PHP WEB DEVELOPER [employer] [facility] LYMPHOCYTES 21 % 10/18/2024 3:55 AM PHP WEB DEVELOPER [employer] [facility] MONOCYTES 10 % 10/18/2024 3:55 AM PHP WEB DEVELOPER [employer] [facility] EOSINOPHILS 3 % 10/18/2024 3:55 AM PHP WEB DEVELOPER [employer] [facility] BASOPHILS 0 % 10/18/2024 3:55 AM PHP WEB DEVELOPER [employer] [facility] - [facility] IMMATURE GRANULOCYTES 0 % 10/18/2024 3:55 AM PHP WEB DEVELOPER [employer] [facility] - [facility] NEUTROPHIL ABSOLUTE 4.63 1.90 - 7.00 K/uL 10/18/2024 3:55 AM PHP WEB DEVELOPER [employer] [facility] - [facility] LYMPHOCYTE ABSOLUTE 1.47 0.70 - 4.50 K/uL 10/18/2024 3:55 AM PHP WEB DEVELOPER [employer] [facility] - [facility] MONOCYTE ABSOLUTE 0.72 0.10 - 1.30 K/uL 10/18/2024 3:55 AM PHP WEB DEVELOPER [employer] [facility] - [facility] EOSINOPHIL ABSOLUTE 0.18 0.00 - 0.70 K/uL 10/18/2024 3:55 AM PHP WEB DEVELOPER [employer] [facility] - [facility] BASOPHILS ABSOLUTE 0.03 0.00 - 0.20 K/uL 10/18/2024 3:55 AM PHP WEB DEVELOPER [employer] [facility] - [facility] IMMATURE GRANULOCYTES ABSOLUTE 0.01 0.00 - 0.03 K/uL 10/18/2024 3:55 AM PHP WEB DEVELOPER [employer] [facility] - [facility] Blood Venipuncture / Unknown 10/18/2024 3:22 AM PHP WEB DEVELOPER 10/18/2024 3:36 AM PHP WEB DEVELOPER Layton Bui DO HEMATOLOGY ORDERABLE S [employer] [facility] - [facility] CLIA# [id number] [address] [place] [address] * (ABNORMAL) BASIC METABOLIC PANEL (10/18/2024 3:22 AM PHP WEB DEVELOPER) SODIUM 139 136 - 145 mmol/L 10/18/2024 4:[address] [facility] - [facility] POTASSIUM 4.2 3.5 - 5.0 mmol/L 10/18/2024 4:[address] [facility] - . [facility] CHLORIDE 107 98 - 107 mmol/L 10/18/2024 4:[address] [facility] - [facility] CO2 22 22 - 29 mmol/L 10/18/2024 4:[address] [facility]. [facility] CALCIUM 8.5(L) 8.6 - 10.2 mg/dL 10/18/2024 4:33 AM [facility]. [facility] BUN 19 6 - 20 mg/dL 10/18/2024 4:33 AM [facility]. [facility] CREATININE 1.15 0.67 - 1.17 mg/dL 10/18/2024 4:33 AM [facility]. [facility] GLUCOSE 83 74 - 99 mg/dL 10/18/2024 4:[address] [facility] [employer] [facility] GFR >60 >=60 mL/min/1.7 3 sq meter 10/18/2024 4:[address] [facility] [employer] [facility] Comment:eGFR calculated with 2020 CKD-EPI equation. Vegetarian diet, extremely high or low muscle mass, and may affect results. Cystatin C with Glomerular Filtration Rate is a suitable alternative for these patients. ANION GAP 10 8 - 16 mmol/L 10/18/2024 4:[address] [facility] [employer] [facility] Blood Venipuncture / Unknown 10/18/2024 3:22 AM PHP WEB DEVELOPER 10/18/2024 3:36 AM PHP WEB DEVELOPER Layton Bui DO CHEMISTRY ORDERABLES [facility] [employer] [facility]# [id number] [address] [facility] [address] [address] * C. DIFFICILE DETECTION (10/17/2024 4:50 PM PHP WEB DEVELOPER) [facility] TOXIGENIC C DIFFICILE NOT DETECTED Not Detected 10/17/2024 6:55 PM PHP WEB DEVELOPER [facility] Stool STOOL SPECIMEN / Unknown Collection / Unknown 10/17/2024 4:50 PM PHP WEB DEVELOPER 10/17/2024 5:15 PM PHP WEB DEVELOPER Narrative [facility] - [facility] - 10/17/2024 6:55 PM PHP WEB DEVELOPER This assay is used to detect Toxigenic C. difficile target(B gene) DNA sequences in unformed stool specimens. ??If toxigenic C. difficile is not detected, but clinical suspicion is high please consult ID for consultation and potential repeat testing. ??This test should not be used as a test of cure. Layton Bui DO MICROBIOLOGY - GENER AL ORDERABLES [facility] CLIA# [id number] [address] [place] [address] * MANUAL DIFFERENTIAL (10/17/2024 2:51 PM PHP WEB DEVELOPER) [facility] PLATELET EST. Consistent w Count 10/17/2024 3:55 PM PHP WEB DEVELOPER [facility] ANISOCYTOSIS 1+ /hpf 10/17/2024 3:55 PM PHP WEB DEVELOPER [facility] MICROCYTES 1+ /hpf 10/17/2024 3:55 PM PHP WEB DEVELOPER [facility] Blood Venipuncture / Unknown 10/17/2024 2:51 PM PHP WEB DEVELOPER 10/17/2024 2:57 PM PHP WEB DEVELOPER Layton Bui DO HEMATOLOGY ORDERABLE S COM [facility] CLIA# [id number] [address] [place] [address] * LACTIC ACID (10/17/2024 2:51 PM PHP WEB DEVELOPER) [facility] LACTIC ACID 1.2 <=2.0 mmol/L 10/17/2024 3:17 PM PHP WEB DEVELOPER [facility] Blood Venipuncture / Unknown 10/17/2024 2:51 PM PHP WEB DEVELOPER 10/17/2024 2:57 PM PHP WEB DEVELOPER Ahmer Davidzaque DO CHEMISTRY ORDERABLES [facility] CLIA# [id number] [address] [place] [address] * (ABNORMAL) C-REACTIVE PROTEIN (10/17/2024 2:51 PM PHP WEB DEVELOPER) CRP 11.1(H) <5.0 mg/L 10/17/2024 4:15 PM PHP WEB DEVELOPER [facility] Blood Venipuncture / Unknown 10/17/2024 2:51 PM PHP WEB DEVELOPER 10/17/2024 2:57 PM PHP WEB DEVELOPER Layton Bui DO CHEMISTRY ORDERABLES Performing Organization Address [facility]/ZIP Co de Phone Number [facility] CLIA# [id number] [address] [place] [address] * PHOSPHORUS (10/17/2024 2:51 PM PHP WEB DEVELOPER) PHOSPHORUS 3.7 2.5 - 4.5 mg/dL 10/17/2024 4:15 PM PHP WEB DEVELOPER [facility] Blood Venipuncture / Unknown 10/17/2024 2:51 PM PHP WEB DEVELOPER 10/17/2024 2:57 PM PHP WEB DEVELOPER Layton Bui DO CHEMISTRY ORDERABLES [facility] CLIA# [id number] [address] [place] [address] * MAGNESIUM LEVEL (10/17/2024 2:51 PM PHP WEB DEVELOPER) MAGNESIUM 2.1 1.6 - 2.6 mg/dL 10/17/2024 4:15 PM PHP WEB DEVELOPER [employer] [facility] Blood Venipuncture / Unknown 10/17/2024 2:51 PM PHP WEB DEVELOPER 10/17/2024 2:57 PM PHP WEB DEVELOPER [employer] DO CHEMISTRY ORDERABLES Performing Organization Address City/[facility]/ZIP Co de Phone Number [facility] CLIA# [id number] [address] [place] [id number] * LIPASE (10/17/2024 2:51 PM PHP WEB DEVELOPER) LIPASE 19 13 - 60 U/L 10/17/2024 4:15 PM PHP WEB DEVELOPER [employer] [facility] Blood Venipuncture / Unknown 10/17/2024 2:51 PM PHP WEB DEVELOPER 10/17/2024 2:57 PM PHP WEB DEVELOPER Layton Ramya DO CHEMISTRY ORDERABLES Performing Organization Address City/[facility]/ZIP Co de Phone Number [facility] [employer] [facility] CLIA# [id number] [address] [place] [address] * (ABNORMAL) COMPREHENSIVE METABOLIC PANEL (10/17/2024 2:51 PM PHP WEB DEVELOPER) SODIUM 139 136 - 145 mmol/L 10/17/2024 4:15 PM PHP WEB DEVELOPER [employer] [facility] POTASSIUM 4.4 3.5 - 5.0 mmol/L 10/17/2024 4:15 PM PHP WEB DEVELOPER [employer] LAB[facility]AT[facility] CHLORIDE 103 98 - 107 mmol/L 10/17/2024 4:15 PM PHP WEB DEVELOPER [employer] LABORATORY SERVICES [facility]. [facility] CO2 26 22 - 29 mmol/L 10/17/2024 4:15 PM PHP WEB DEVELOPER [employer] [facility] CALCIUM 9.2 8.6 - 10.2 mg/dL 10/17/2024 4:15 PM PHP WEB DEVELOPER [employer] LAB[facility]AT[facility] SERVICES [facility]. [facility] BUN 17 6 - 20 mg/dL 10/17/2024 4:15 PM [facility] CREATININE 1.31(H) 0.67 - 1.17 mg/dL 10/17/2024 4:15 PM [facility] GLUCOSE 95 74 - 99 mg/dL 10/17/2024 4:15 PM [facility] TOTAL PROTEIN 7.2 6.7 - 8.6 g/dL 10/17/2024 4:15 PM [facility] ALBUMIN 4.0 3.5 - 5.2 g/dL 10/17/2024 4:15 PM [facility] BILIRUBIN TOTAL 0.6 0.3 - 1.2 mg/dL 10/17/2024 4:15 PM [facility] ALKALINE PHOSPHATASE 81 40 - 129 U/L 10/17/2024 4:15 PM [facility] AST 23 <41 U/L 10/17/2024 4:15 PM [facility] Comment:Hemolysis present. R esult may be falsely elevated. ALT 19 <42 U/L 10/17/2024 4:15 PM [facility] GFR >60 >=60 mL/min/1.7 3 sq meter 10/17/2024 4:15 PM [facility] Comment:eGFR calculated with 2020 CKD-EPI equation. Vegetarian diet, extremely high or low muscle mass, and may affect results. Cystatin C with Glomerular Filtration Rate is a suitable alternative for these patients. ANION GAP 10 8 - 16 mmol/L 10/17/2024 4:[address] [facility] [employer] [facility] Blood Venipuncture / Unknown 10/17/2024 2:51 PM PHP WEB DEVELOPER 10/17/2024 2:57 PM [facility] - 10/17/2024 4:15 PM [facility] Samples containing indocyanine green cause interferences on Total and/or Direct Bilirubin and must not be measured. Layton Bui DO CHEMISTRY ORDERABLES [facility] [employer] [facility] CLIA# [id number] [address] [place] [address] * POUCHOSCOPY REPORT (08/06/2024 12:05 PM CDT) Narrative Procedure Note Jessica Bejarano MD - 08/06/2024 12:05 PM CDT [facility] Patient Name: Edgardo Elkins Procedure Date: [...] Number of Addenda: [address]; [place] [address] Jessica Bejarano MD GI PROCEDURE ORDE SHREYAS * PATHOLOGY (08/06/2024 8:16 AM CDT) CASE REPORT Surgical Pathology Report ? Case: [id number] ? Authorizing Provider: ??Jessica Bejarano MD ?? Collected: ? 08/06/2024 08:16 AM ? Ordering Location: ? [facility] [address] ??Received: ?08/06/2024 10:00 AM ? Pathologist: ? Rosalinda Leyva MD ? Specimens: ?? A) - Small Intestine, pouch bx ? B) - Colon, cuff bx ? C) - Colon, pouch polyp ? D) - Small Intestine, pre-pouch ileum bx ? 4 5:11 PM [facility] FINAL DIAGNOSIS Small intestine, pouch, biopsy: - Active enteritis, mild - No granulomas or dysplasia identified Colon, cuff, biopsy: - Active enteritis, moderate - No granulomas or dysplasia identified Colon, pouch, polyp, biopsy: - Active enteritis, severe, with ulceration - No granulomas or dysplasia identified Small intestine, prepouch, ileum, biopsy: - Active enteritis, moderate - No granulomas or dysplasia identified 4 5:11 PM [facility] S DESCRIPTION The specimens are received in [...] dimension. All are submitted in cassette D1. [facility] 4 5:11 PM [facility] MICROSCOPIC DESCRIPTION The slides are labeled [id number] and Edgardo Elkins. Sections from the small [...] granulomas, dysplasia or malignancy. 4 5:11 PM [facility] OPERATIVE PROCEDURE 1: POUCHOSCOPY 4 5:11 PM [facility] CLINICAL INFORMATION A Inflammation. R/o dysplasia. Inflammation. R/o dysplasia. Crohn's disease with fistula, unspecified gastrointestinal tract location [K50.913] K50.913-Crohn's disease with fistula, unspecified gastrointestinal tract location 4 5:11 PM [facility] COMMENT Special stain, immunohistochemical, and/or in situ hybridization results are interpreted with controls that demonstrate appropriate staining reactions. Note on use of immunohistochemistry reagents and in situ hybridization probes: These tests were developed and their performance characteristics determined by [facility], Department of Laboratory Medicine. It has not [...] part or completely in the following laboratories: [facility], CLIA #[id number] [address] [place] [address] [facility], [place] #[id number] [address] [place] [address] [facility], [place] #[id number] [address] [place] [address] This report was created with the [employer] voice-activated dictation system. Inherent to this system is the possibility of syntax, grammar, punctuation and other errors that could impact the interpretation of the report. If there are interpretative questions about aspects of this report, please contact the performing pathologist. 5:11 PM CDT [facility] Tissue (Small Intestine) Collection / Unknown 08/06/2024 [...] splasia. Jessica Bejarano MD PATHOLOGY/CYTOLOG Y [id number] [address] [place] [address] from Last 3 Months Advance Directives For more information, please contact: [phone] * Full Code (Latest Code Status on File) Date Activated Date Inactivated Comments 10/17/2024 4:09 PM 10/18/2024 3:31 PM * Full Code Date Activated Date Inactivated Comments 08/06/2024 7:26 AM 08/06/2024 11:03 AM * Full Code Date Activated Date Inactivated Comments 08/15/2022 11:18 AM 08/15/2022 2:15 PM * Full Code Date Activated Date Inactivated Comments 08/24/2017 12:17 PM 08/24/2017 4:38 PM * Full Code Date Activated Date Inactivated Comments 06/09/2014 2:24 PM 06/09/2014 6:57 PM Care Teams International Student Advisor Relationship Specialty Start Date End Date Jasiel Freeman MD [address] [place] [id number] PCP - General Family Practice 08/15/17
--- OUTSIDE RECORDS SUMMARY | 2024-10-24 05:28 | XMS_ITS | Encounter Summary ---
[facility] Organization [facility] Address [address] [place] [address] Care Team Providers Care Director Of Channel Marketing Name Role Phone Jasiel Freeman MD Primary Care Provider Reason for Referral * Home Infusion (Routine) - Closed Specialty Diagnoses / Procedures Referred By Contac t Referred To Contact [facility] Diagnoses Ulcerative pancolitis without complication Annette Whitney MD 1 [facility] [address] Referral ID Status Reason Start Date Expiration Date Visits Requested Visits Authorized [id number] Closed Performing Department to Schedule 08/08/2022 08/08/2023 1 1 Scheduling Instructions To complete referral use the comments field above. Performing department to schedule. * Outpatient Services (Routine) - Closed Specialty Diagnoses / Procedures Referred By Contalka t Referred To Contact Hematology and Oncology Diagnoses Ulcerative pancolitis without complication Procedures INFUSION THERAPY Annette Torres MD 1 [facility] [place] [address] [facility] [address] [place] [address] Referral ID Status Reason Start Date Expiration Date Visits Re quested Visits Authorized [id number] Closed 08/08/2022 09/08/2023 1 1 Encounter Details Date Type Department Care Team ([facility] Contact Info) Description 08/08/2022 Orders Only [facility] [address] [place] [address] Annette Whitney MD [address] [facility] [place] [address] Ulcerative pancolitis without complication (Primary Dx) Social History Tobacco Use Types [...] Description 02/13/2025 10:30 AM CDT Office Visit [facility] [address] [place] [address] Kitty Dover, MIRTA [address] [place] [address] Scheduled Referrals Name Type Priority Associated Diagnoses Orde r Schedule AMB REFERRAL TO HOME INFUSION Outpatient Referral Routine Ulcerative pancolitis without complication Ordered: 08/08/2022 documented as of this encounter Visit Diagnoses Diagnosis Ulcerative pancolitis without complication- Primary documented in this encounter Care Teams Director Of Channel Marketing Relationship Specialty Start Date End Date Jasiel Freeman MD [address] [place] [address] PCP - General Family Practice 08/15/17 documented as of this encounter
--- OUTSIDE RECORDS SUMMARY | 2024-10-24 05:29 | XMS_ITS | Encounter Summary ---
Author Organization [facility] Address [address] [place] [address] Care Team Providers Care Shrimp Header Name Role Phone Jasiel Freeman MD Primary Care Provider Encounter Details Date Type Department Care Team (Late st Contact Info) Description 10/13/2021 Specialty Pharmacy [facility] Home Infusion - [address] [place] [address] Thanh Solares, PHARMACIST Social History Tobacco Use Types Packs/Day [...] of this encounter Progress Notes * Thanh Solares, PHARMACIST - 10/13/2021 8:47 AM CST Images from the original note were not included. [facility] Specialty & Infusion - [facility] SPECIALTY & INFUSION [facility] [address] [facility], [address] [place] [address] PH: [phone] FX: [phone] Specialty Pharmacy Infusion Note Patient Name: Edgardo Elkins Person Contacted: Called patient - no answer Relation to patient: left message Call Date: 10/13/2021 Reason for call: ?? Check the patient's progress, ?? Evaluate medication adherence, and ?? Coordinate medication delivery. Medication: Medication ordered: - Entyvio 300mg Have there been any changes with your medications medications, allergies or other conditions? - n/a Patient Progress: How are you feeling? - n/a Are you having any problems with your medications? - n/a Insurance coverage: Does the patient still have insurance with [employer] ? - yes Patient states that no anticipated insurance or job changes before next infusion. - no changes anticipated Patient informed on importance of notifying [facility] immediately if any unexpected insurance changes occur. - yes Authorization good through: 06/15/2022 Delivery: Delivery date: 10/13/2021 How are we shipping the medication? [place] Clerk Is it ok to leave? yes Delivery note: This assessment performed by: Thanh Solares, PHARMACIST [facility] [place] [place] [address] PH: [phone] FX: [phone] Specialty Pharmacy Infusion Note Patient Name: Edgardo Elkins Person Contacted: Called patient - no answer Relation to patient: left message Call Date: 09/10/2021 Reason for call: ?? Check the patient's progress, ?? Evaluate medication adherence, and ?? Coordinate medication delivery. Medication: Medication ordered: - Entyvio 300mg Have there been any changes with your medications medications, allergies or other conditions? - n/a Patient Progress: How are you feeling? - n/a Are you having any problems with your medications? - n/a Insurance coverage: Does the patient still have insurance with [employer] ? - yes Patient states that no anticipated insurance or job changes before next infusion. - no changes anticipated Patient informed on importance of notifying [facility] Infusion immediately if any unexpected insurance changes occur. - yes Authorization good through: 06/15/2022 Delivery: Delivery date: 09/13/2021 How are we shipping the medication? [place] Clerk Is it ok to leave? yes Delivery note: This assessment performed by: Thanh Solares PHARMACIST [facility] INFUSION [place] [id number] PH: [phone] FX: [phone] Specialty Pharmacy Infusion Note Patient Name: Edgardo Elkins Person Contacted: Called patient - no answer Relation to patient: left message Call Date: 08/06/2021 Reason for call: ?? Check the patient's progress, ?? Evaluate medication adherence, and ?? Coordinate medication delivery. Medication: Medication ordered: - Entyvio 300mg Have there been any changes with your medications medications, allergies or other conditions? - n/a Patient Progress: How are you feeling? - n/a Are you having any problems with your medications? - n/a Insurance coverage: Does the patient still have insurance with [employer] ? - yes Patient states that no anticipated insurance or job changes before next infusion. - no changes anticipated Patient informed on importance of notifying [facility] immediately if any unexpected insurance changes occur. - yes Authorization good through: 06/15/2022 Delivery: Delivery date: 08/09/2021 How are we shipping the medication? [place] Clerk Is it ok to leave? yes Delivery note: This assessment performed by: Thanh Solares, PHARMACIST [facility] [address] [address] PH: [phone] FX: [phone] Specialty Pharmacy Infusion Note Patient Name: Edgardo Elkins Person Contacted: Called patient - no answer Relation to patient: left message Call Date: 07/08/2021 Reason for call: ?? Check the patient's progress, ?? Evaluate medication adherence, and ?? Coordinate medication delivery. Medication: Medication ordered: - Entyvio 300mg IV every 4 weeks Have there been any changes with your medications medications, allergies or other conditions? - n/a Patient Progress: How are you feeling? - n/a Are you having any problems with your medications? - n/a Insurance coverage: Does the patient still have insurance with [employer] ? - yes Patient states that no anticipated insurance or job changes before next infusion. - n/a Patient informed on importance of notifying [facility] immediately if any unexpected insurance changes occur. - n/a Authorization good through: 06/15/2022 Delivery: Delivery date: 07/12/2021 How are we shipping the medication? director of financial reporting Is it ok to leave? yes Delivery note: This assessment performed by: Thanh Solares, PHARMACIST [facility] [address] [address] PH: [phone] FX: [phone] Specialty Pharmacy Infusion Note Patient Name: Edgardo Elkins Person Contacted: Called patient - no answer Relation to patient: Left message Call Date: 06/11/2021 Reason for call: ?? Check the patient's progress, ?? Evaluate medication adherence, and ?? Coordinate medication delivery. Medication: Medication ordered: - Entyvio 300mg IV every 4 weeks Have there been any changes with your medications medications, allergies or other conditions? - n/a Patient Progress: How are you feeling? - n/a Are you having any problems with your medications? - n/a Insurance coverage: Does the patient still have insurance with [employer] ? - yes Patient states that no anticipated insurance or job changes before next infusion. - n/a Patient informed on importance of notifying [facility] immediately if any unexpected insurance changes occur. - n/a Authorization good through: 06/15/2022 Delivery: Delivery date: 06/14/2021 How are we shipping the medication? director of financial reporting Is it ok to leave? yes Delivery note: This assessment performed by: Thanh Solares, PHARMACIST [facility] [place] [id number] [address] PH: [phone] FX: [phone] Specialty Pharmacy Infusion Note Patient Name: Edgardo Elkins Person Contacted: Called - no answer Relation to patient: left message Call Date: 05/14/2021 Reason for call: ?? Check the patient's progress, ?? Evaluate medication adherence, and ?? Coordinate medication delivery. Medication: Medication ordered: - Entyvio 300mg IV every 4 weeks Have there been any changes with your medications medications, allergies or other conditions? - no changes Patient Progress: How are you feeling? - n/a Are you having any problems with your medications? - n/a Insurance coverage: Does the patient still have insurance with [employer] ? - n/a Patient states that no anticipated insurance or job changes before next infusion. - n/a Patient informed on importance of notifying [facility] immediately if any unexpected insurance changes occur. - n/a Authorization good through: 06/15/2021 Delivery: Delivery date: 05/17/2021 How are we shipping the medication? director of financial reporting Is it ok to leave? yes Delivery note: This assessment performed by: Thanh Solares PHARMACIST [facility] [address] [address] PH: [phone] FX: [phone] Specialty Pharmacy Infusion Note Patient Name: Edgardo Elkins Person Contacted: Called the patient - no answer Relation to patient: answering machine Call Date: 04/14/2021 Reason for call: ?? Check the patient's progress, ?? Evaluate medication adherence, and ?? Coordinate medication delivery. Medication: Medication ordered: - Entyvio 300mg IV every 4 week Have there been any changes with your medications medications? - n/a Patient Progress: How are you feeling? - n/a Are you having any problems with your medications? - none noted Insurance coverage: Does the patient still have insurance with [employer] ? - n/a Patient states that no anticipated insurance or job changes before next infusion. - n/a Patient informed on importance of notifying [facility] immediately if any unexpected insurance changes occur. - n/a Authorization good through: 06/15/2021 Delivery: Delivery date: 04/16/2021 How are we shipping the medication? director of financial reporting Is it ok to leave? yes Delivery note: This assessment performed by: FADI Silverman [facility] [address] [address] PH: [phone] FX: [phone] Specialty Pharmacy Infusion Note Patient Name: Edgardo Elkins Person Contacted: Edgardo Relation to patient: self Call Date: 02/19/2021 Reason for call: ?? Check the patient's progress, ?? Evaluate medication adherence, and ?? Coordinate medication delivery. Medication: Medication ordered: - Entyvio 300mg IV every 4 weeks Have there been any changes with your medications medications, allergies or other conditions? - no changes Patient Progress: How are you feeling? - good Are you having any problems with your medications? - no Insurance coverage: Does the patient still have insurance with [employer]? - yes Patient states that no anticipated insurance or job changes before next infusion. - no changes Patient informed on importance of notifying [facility] immediately if any unexpected insurance changes occur. - yes Authorization good through: 06/15/2021 Delivery: Delivery date: 02/19/2021 How are we shipping the medication? [place] Clerk Is it ok to leave? yes Delivery note: infusion changed to 02/22 This assessment performed by: FADI Silverman [facility] [id number] [place] [address], [address] [place] [address] PH: [phone] FX: [phone] Specialty Pharmacy Infusion Note Patient Name: Edgardo Elkins Person Contacted: Edgardo Relation to patient: Patient Call Date: 01/26/2021 Reason for call: ?? Check the patient's progress, ?? Evaluate medication adherence, and ?? Coordinate medication delivery. Medication: Medication ordered: Entyvio 300mg IV every 4 weeks Any new medications or other changes? none Patient Progress: How are you feeling? fine Are you having any problems with your medication? none Insurance coverage: Confirmed with patient that no insurance changes since last dose given: - no changes Patient states that no anticipated insurance or job changes before next infusion. - no changes Patient informed on importance of notifying [facility] immediately if any unexpected insurance changes occur. - yes Authorization good through: 01/12/2022 Delivery: Delivery date: 01/26/2021 How are we shipping the medication? director of financial reporting Is it ok to leave? yes Delivery note: deliver before 12pm This assessment performed by: Thanh Solares PHARMACIST [facility] Infusion Order Edgardo Elkins 51 y.o. / male Patient's address (May not be service address): [address] [place] [address] Order Date: 08/06/2021 Order(s): VEDOLIZUMAB( ENTYVIO) STANDING ORDERS Negative Tuberculin skin test within last 12 months: ??Yes, date of test 07/29/2021. ??(If no, administer Tuberculin Skin Test (PPD) 0.1 ml intradermal. Delay infusion until results negative at 48 hours.) PRE-MEDICATION INSTRUCTIONS 30 MINUTES PRIOR TO INFUSION: Tylenol 1000 mg PO and Claritin 10 mg PO VITAL SIGNS INSTRUCTIONS: Monitor vital signs before infusion and every 30 minutes. Vital Signs before and after and as needed. VEDOLIZUMAB( ENTYVIO) ??DOSE: Vedolizumab 300 mg in 250 mL NS IV infusion over 30 minutes; 30 mL flush after infusion is complete SIG: ?? REPEAT INFUSION: every 4 weeks LABS: No labs needed INFUSION REACTION: Stop Entyvio and run 0.9% NS at KVO rate and medicate per MD order (below). Observe patient closely. ??When resolved, restart Entyvio as prescribed. ??If not resolved call physician for additional orders. TREATMENT FOR INFUSION REACTION: Hydrocortisone 100 mg IVP, Benadryl (diphenhydramine) 50 mg IVP, Tylenol 1000 mg PO and Epinephrine(1mg/ml ampule): 0.25 ml IVP DISCHARGE INSTRUCTIONS: ADDITIONAL ORDERS: Follow-up on ??with Dr. Nair. B12 (cyanocobalamin) 1000 mcg injection IM, monthly: ??No Per: Joaquina Whitney Generic substitution permitted for medications unless otherwise specified Order taken by Thanh Solares, PHARMACIST [facility]fusion [address] [facility] Home Infusion [facility] Infusion Order Edgardo Elkins 51 y.o. / male Patient's address (May not be service address): [address] [place] [address] Order Date: 07/08/2021 Order(s): VEDOLIZUMAB( ENTYVIO) STANDING ORDERS Negative Tuberculin skin test within last 12 months: ??No. Can infuse if no respiratory symptoms lab ordered for TB testing ??(If no, administer Tuberculin Skin Test (PPD) 0.1 ml intradermal. Delay infusion until results negative at 48 hours.) PRE-MEDICATION INSTRUCTIONS 30 MINUTES PRIOR TO INFUSION: Tylenol 1000 mg PO and Claritin 10 mg PO VITAL SIGNS INSTRUCTIONS: Monitor vital signs before infusion and every 30 minutes. Vital Signs before and after and as needed. VEDOLIZUMAB( ENTYVIO) ??DOSE: Vedolizumab 300 mg in 250 mL NS IV infusion over 30 minutes; 30 mL flush after infusion is complete SIG: ?? REPEAT INFUSION: every 4 weeks x 1 visit LABS: CBC every other infusion CMP ??every other infusion CRP ??every other infusion Vitamin B12 Level every 6 months Vitamin D 25 Hydroxy every 6 months INFUSION REACTION: Stop Entyvio and run 0.9% NS at KVO rate and medicate per MD order (below). Observe patient closely. ??When resolved, restart Entyvio as prescribed. ??If not resolved call physician for additional orders. TREATMENT FOR INFUSION REACTION: Hydrocortisone 100 mg IVP, Benadryl (diphenhydramine) 50 mg IVP, Tylenol 1000 mg PO and Epinephrine(1mg/ml ampule): 0.25 ml IVP DISCHARGE INSTRUCTIONS: Per protocol ADDITIONAL ORDERS: Follow-up with Dr. Nair or PA to have future orders written. B12 (cyanocobalamin) 1000 mcg injection IM, monthly: ??No Per: JIE Basilio Dr. Generic substitution permitted for medications unless otherwise specified Order taken by Thanh Solares PHARMACIST [facility] Infusion [address] [address] [facility] Home Infusion [facility] Home Infusion Order Edgardo S Thyer 51 y.o. / male Patient's address (May not be service address): [address] [place] [address] Order Date: 10/20/2020 Order(s): Continue Entyvio 300mg IV every 4 weeks Per: Caren Whitney MD Generic substitution permitted for medications unless otherwise specified Order taken by FADI Silverman [facility] [address] [address] Edgardo S Thyer 51 y.o. / male Patient's [address] on file: [address] [facility] [address] Home Phone Work Phone Home Infusion Order Order Date: 11/26/18 Order(s): VEDOLIZUMAB( ENTYVIO) STANDING ORDERS ?? PRE-MEDICATION INSTRUCTIONS 30 MINUTES PRIOR TO INFUSION: None ?? VITAL SIGNS INSTRUCTIONS: Monitor vital signs before infusion and every 30 minutes. Vital Signs before and after and as needed. ?? VEDOLIZUMAB( ENTYVIO) DOSE: Vedolizumab 300 mg in 250 mL NS IV infusion over 30 minutes; 30 mL flush after infusion is complete ?? SIG: Week 0, week 2, week 6, then every 8 weeks ?? INFUSION REACTION: Stop Entyvio and run 0.9% NS at KVO rate and medicate per MD order (below). Observe patient closely. When resolved, restart Entyvio as prescribed. If not resolved call physician for additional orders. ?? TREATMENT FOR INFUSION REACTION: Solumedrol (methylprednisolone) 40 mg Act-O-Vial IVP, Hydrocortisone 50 mg IVP, Benadryl (diphenhydramine) 25 mg IVP, Tylenol 650 mg PO and Epinephrine (1mg/ml ampule): 0.25 ml IVP Approved x 6 months (through 05/26/19) Per: Caren Whitney [facility] [address] [facility], [address] [facility] [address] Generic substitution permitted Detailed Home Infusion Orders (in addition to above) Start of Care Date: 11/15/17 First Dose Has patient had this medication prior to first dose in the home? no Pharmacy to dispense anaphylaxis kit which will remain in the home for RN to use in the event of anaphylactic drug reaction. RN to remain present for each dose and a period of time thereafter to monitor for reaction. Anaphylaxis kit contains the following: ?? Epinephrine 0.3 mg IM x 1 dose PRN anaphylactic reaction. Repeat at 10-15 minute intervals to a maximum of 3 doses as necessary. ?? Diphenhydramine 50 mg IM or IV x 1 dose PRN anaphylactic reaction ?? Sodium chloride 0.9% 500 mL IV bolus x 1 dose PRN anaphylactic reaction Labs RN will take any ordered labs to [facility] when possible. If labs are not taken to a [facility] lab, it is the responsibility of nursing to make sure labs are faxed to the pharmacy at [phone] Whitney. Catheter Care Catheter type: PIV placed by DIE MACHINE OPERATOR prior to each infusion Flush IV catheter with 10-20mL 0.9% sodium chloride before and after each IV dose. If PIV to remainin place for subsequent dosing, follow with 5 mL of 10 u/ml heparin using the SASH method. For PIV lines to be maintained longer than a single infusion, flush IV catheter with 10-20 mL sodium chloride 0.9% and 3-5 mL 10 unit/mL heparin once daily when not in use and as needed for lab draws/line complications. ?? Flushes provided by [facility]fusion pharmacy are for use ONLY with the patient's IV catheter. ?? Dispense up to quantity #10 x sodium chloride 0.9% 10 mL. Refill x 51 Dispense up to quantity #5 x heparin 5 mL 10 unit/mL. Refill x 51 ?? Pharmacy to dispense flushes, catheter supplies and all medically necessary infusion supplies untilcatheter is removed. Progress Note Purpose of Today's Encounter: Refill note Actions/Narrative: Edgardo Elkisn (51 y.o. male) is active with [facility] Infusion services receiving Entyvio every 8 weeks at home for ulcerative colitis. ?? Edgardo is due for his next infusion this week. Pharmacist contacted DIE MACHINE OPERATOR to coordinate delivery. RN will bead picker today. Patient received last infusion without issue. No questions or concerns at this time. Patient has appointment with Dr. Nair on 01/29. 05/13/19 - Spoke with the patient who stated he is doing well. He has had no changes in his medication therapy or no clinical issues. Will ship medications and supplies to the patient. Thanh Solares MBA, [facility] 08/08/19 - Patient to receive infusion of Entyvio today after an insurance issue. Will send medications and supplies for the infusion. RDS 08/19/19 - Confirmed with the nurse case operator that the patient was scheduled to receive IV infusion of Entyvio on 08/22/19. Called the patient and left message that the delivery would be sent on 08/19/19 to the patient. RDS 09/17/19 - spoke with the patient who confirmed the scheduled infusion of Entyvio. Will send medications and supplies to the patient. The patient stated that has had no changes in medication or clinical condition. RDS 11/15/2019 - Spoke with the patient to schedule the delivery of medications and supplies. The patient stated no changes in medication or clinical status. He also had no questions or concerns. Will ship medications and supplies on 11/15/2019 to the patient. RDS 03/05/2020 - Spoke with the patient who stated that he was doing well. Will send medications and supplies to the patient for his next infusion. He had no questions or concerns. RDS 06/26/2020 - Spoke with the patient regarding the next infusion of Entyvio. He stated that he was doing well and having no issues. Will send medication and supplies on 06/26/2020. He had no questions or issues. RDS 08/19/2020 - Called the patient to coordinate a delivery for his next infusion of Entyvio. No answer - left message. Will send medication and supplies for infusion scheduled on 08/20/2020. RDS 10/13/2020 - Called the patient to schedule a delivery of medication and supplies for the upcoming infusion of Entyvio. Will send today and is ok to leave per patient instructions. No changes noted in medications or clinical status. The patient had no questions or concerns. RDS Timeline/Summary of Home Infusion Therapy: 11/15/17 - Start of Care / Entyvio week 0 11/29/17 - Week 2 12/28/17 - Week 6 02/21/18 - Begin maintenance dose every 8 weeks 11/26/18 - Approved x [address] Whitney Home Infusion Care Team IV Pharmacy: [facility] [place] / [phone] Nursing Agency: [facility] Physician(s): Dr. Whitney Additional Relevant Data Insurance Information: Payor: RX [employer] / Plan: RX [employer]M / Product Type: RX [employer] / IV access PIV placed by DIE MACHINE OPERATOR prior to each infusion Ht Readings from Last 3 Encounters: 08/02/21 5' 9 (1.753 m) 06/12/20 5' 9 (1.753 m) 05/20/20 5' 9 (1.753 m) Wt Readings from Last 3 Encounters: 08/02/21 80.7 kg (178 lb) 06/12/20 80.6 kg (177 lb 9.6 oz) 05/20/20 83.9 kg (185 lb) Patient Active Problem List Diagnosis Code ??? Hyponatremia E87.1 ??? Abdominal pain R10.9 ??? Ulcerative colitis K51.90 ??? Pouchitis K91.850 ??? Acute bronchitis J20.9 ??? SIRS (systemic inflammatory response syndrome) R65.10 ??? Metabolic acidosis E87.2 ??? Sepsis, unspecified A41.9 ??? JORGE (acute kidney injury) N17.9 ??? Protein calorie malnutrition E46 ??? Malnutrition E46 ??? Abdominal pain R10.9 ??? Inflammatory bowel disease K52.9 ??? Vitamin D deficiency E55.9 Allergies Allergen Reactions ??? Infliximab Rash Other reaction(s): Sneezing flushed face Social History Socioeconomic History ??? Marital status: Spouse name: Not on file ??? Number of children: Not on file ??? Years of education: Not on file ??? Highest education level: Not on file Occupational History Employer: [employer] Employer: [employer] Tobacco Use ??? Smoking status: Former Smoker Packs/day: 0.50 Years: 10.00 Pack years: 5.00 Types: Cigarettes Quit date: 06/09/2011 Years since quittin.3 ??? Smokeless tobacco: Never Used ? ? Tobacco comment: off & on Vaping Use ??? Vaping Use: Never used Substance and Sexual Activity ??? Alcohol use: Yes Comment: rarely ??? Drug use: No ??? Sexual activity: Not on file Other Topics Concern ??? Not on file Social History Narrative ??? Not on file Social Determinants of Health Financial Resource Strain: Not on file Food Insecurity: Not on file Transportation Needs: Not on file Physical Activity: Not on file Stress: Not on file Social Connections: Not on file Intimate Partner Violence: Not on file Medication Review Current Outpatient Medications: ??? dicyclomine (BENTYL) 10 mg capsule, TAKE 1 CAPSULE BY MOUTH FOUR TIMES A DAY, Disp: 120 Capsule, Rfl: 0 ??? ergocalciferol (VITAMIN D2) 50,000 unit capsule, Take 1 Capsule (50,000 Units) by mouth every 2weeks., Disp: 8 Capsule, Rfl: 2 ??? cyanocobalamin (VITAMIN B-12) 1,000 mcg/mL Solution, Inject 1 mL (1,000 mcg) by intramuscular injection every 30 days for 4 doses., Disp: 1 mL, Rfl: 3 ??? hyoscyamine 0.375 mg Extended Release 12 hour tablet, Take 1 Tablet (0.375 mg) by mouth every 12 hours as needed for Discomfort., Disp: 60 Tablet, Rfl: 1 ??? ondansetron (ZOFRAN) 4 mg Tablet, Take 1 Tablet (4 mg) by mouth every 8 hours as needed for Nausea/Emesis., Disp: 15 Tablet, Rfl: None ??? diphenoxylate-atropine (LOMOTIL) 2.5-0.025 mg tablet, Take 1 Tablet by mouth 4 times daily as needed for Diarrhea/Loose Stools., Disp: 60 Tablet, Rfl: 1 ??? Syringe with Needle, Disp, (BD Luer-Jesusita Syringe) 3 mL 23 gauge x 1 1/2 Syringe, For use with B12 injections, Disp: 12 Each, Rfl: 2 ??? SOLU-MEDROL, PF, 40 mg/mL Recon Soln, ADMINISTER 40 MG VIA SLOW INTRAVENOUS PUSH IN CASE OF SEVERE ALLERGICREACTION., Disp: 1 Each, Rfl: 0 ??? SOLU-CORTEF 100 mg Recon Soln, ADMINISTER 50 MG VIA SLOW INTRAVENOUS PUSH IN CASE OF SEVERE ALLERGICREACTION. DISCARD EXCESS., Disp: 100 mg, Rfl: 0 ??? BD PRECISIONGLIDE 25 gauge x 1 Needle, USE DIRECTED TO ADMINISTER SOLU CORTEF, Disp: 5 Each, Rfl: 1 ??? diphenhydrAMINE (BENADRYL) 50 mg/mL Solution, ADMINISTER 25 MG VIA SLOW INTRAVENOUS PUSH IN CASE OF SEVERE ALLERGICREACTION. DISCARD EXCESS, Disp: 1 mL, Rfl: 0 ??? vedolizumab (ENTYVIO) 300 mg Recon Soln, Inject 300 mg by intraveous injection see administration instructions. Home DIE MACHINE OPERATOR to administer over 30 minutes every 8 weeks., Disp: 300 mg, Rfl: 3 ??? TESTOSTERONE, BULK, MISC, 1 mL by Misc.(Non-Drug; Combo Route) route., Disp: , Rfl: Med Review Issues Noted? No issues Lab Review BMP result (most recent): Lab Results Component Value Date/Time GLUCOSE 115 (H) 07/29/2021 08:06 AM GLUCOSE 139 (H) 05/20/2020 04:21 PM GLUCOSE 83 04/29/2020 11:09 AM BUN 16 07/29/2021 08:06 AM BUN 14 05/20/2020 04:21 PM BUN 13 04/29/2020 11:09 AM CREAT 1.23 07/29/2021 08:06 AM CREAT 1.15 05/20/2020 04:21 PM CREAT 1.19 (H) 04/29/2020 11:09 AM NA 136 07/29/2021 08:06 AM NA 139 05/20/2020 04:21 PM NA 140 04/29/2020 11:09 AM K 4.8 07/29/2021 08:06 AM K 4.1 05/20/2020 04:21 PM K 3.8 04/29/2020 11:09 AM CL 102 07/29/2021 08:06 AM CL 103 05/20/2020 04:21 PM CL 102 04/29/2020 11:09 AM CO2 27 07/29/2021 08:06 AM CO2 26 05/20/2020 04:21 PM CO2 24 04/29/2020 11:09 AM ANIONGAP 10 05/20/2020 04:21 PM ANIONGAP 14 04/29/2020 11:09 AM ANIONGAP 11 07/31/2019 11:33 AM MG 1.9 03/15/2012 01:05 PM MG 2.5 02/27/2012 06:05 AM PO4 4.5 02/27/2012 06:05 AM CrCl cannot be calculated (Patient's most recent lab result is older than the maximum 7 days allowed.). LFTs (most recent): Lab Results Component Value Date/Time ALKPHOS 64 07/29/2021 08:06 AM ALKPHOS 73 05/20/2020 04:21 PM ALKPHOS 60 04/29/2020 11:09 AM ALT 16 07/29/2021 08:06 AM ALT 49 (H) 05/20/2020 04:21 PM ALT 19 04/29/2020 11:09 AM AST 16 07/29/2021 08:06 AM AST 45 (H) 05/20/2020 04:21 PM AST 19 04/29/2020 11:09 AM BILITOTAL 0.5 07/29/2021 08:06 AM BILITOTAL 0.3 05/20/2020 04:21 PM BILITOTAL 0.4 04/29/2020 11:09 AM ALBUMIN 3.9 07/29/2021 08:06 AM ALBUMIN 4.0 05/20/2020 04:21 PM ALBUMIN 3.8 04/29/2020 11:09 AM LIPASE 40 02/22/2012 07:24 PM CBC result (most recent): Lab Results Component Value Date/Time WBC 6.4 07/29/2021 08:06 AM WBC 6.1 05/20/2020 04:21 PM WBC 6.8 04/29/2020 11:09 AM HGB 15.0 07/29/2021 08:06 AM HGB 16.3 05/20/2020 04:21 PM HGB 16.6 (H) 04/29/2020 11:09 AM HCT 49.4 07/29/2021 08:06 AM HCT 53.0 (H) 05/20/2020 04:21 PM HCT 53.8 (H) 04/29/2020 11:09 AM PLT 395 07/29/2021 08:06 AM PLT 345 05/20/2020 04:21 PM PLT 294 04/29/2020 11:09 AM MCV 81.7 07/29/2021 08:06 AM MCV 87.2 05/20/2020 04:21 PM MCV 85.9 04/29/2020 11:09 AM CRP result (most recent): Lab Results Component Value Date/Time CRP 6.7 07/29/2021 08:06 AM CRP 2.6 04/29/2020 11:09 AM CRP 8.3 (H) 07/31/2019 11:33 AM Lab Review Issues Noted? No issues Pharmacy Care Plan Home Infusion Problem List ?? Crohn's disease Goals of Therapy Maintain remission of Crohn's and prevent future flares Minimal side effects related to infusion Medication and supply use without complications ?? Vascular access device will remain free of complications Monitor/Evaluate Vedolizumab - monitor therapy ?? Infections: Use may be associated with an increased risk for developing infections; most commonly reported infections included upper respiratory tract and nasal mucosa. Serious infections have also been reported in patients treated, including anal abscess, sepsis (some fatal), tuberculosis, Salmonella sepsis, Listeria meningitis, giardiasis, and cytomegaloviral colitis. Therapy is not recommended in patients with uncontrolled, active, severe infections. If a patient develops a serious infection, consider discontinuing therapy. Use with caution in patients with a history of recurring severeinfections. Screening for tuberculosis should be considered. ?? Progressive multifocal leukoencephalopathy: Another integrin receptor antagonist has been associated with progressive multifocal leukoencephalopathy (PML), a rare and often fatal opportunistic infection of the central nervous system caused by the Lane Friend (CORNELIA) virus. Monitor patients for any new onset or worsening of neurological signs and symptoms including progressive weakness on one side of the body or clumsiness of limbs, disturbance of vision, and changes in thinking, memory, andorientation leading to confusion and personality changes. Symptoms may progress over days to weeks and can lead to or severe disability in weeks to months. If PML is suspected, withhold therapyand refer to a neurologist; if confirmed, discontinue therapy permanently. ?? Liver injury: Elevations of transaminase and/or bilirubin have been reported in patients receiving vedolizumab. Discontinue therapy in patients with jaundice or other evidence of significant liverinjury such as fatigue, anorexia, right upper abdominal discomfort, or dark urine. ?? Immunizations: Patients should be brought up to date with all immunizations according to immunization guidelines before initiating therapy. Live vaccines should not be given concurrently unless the benefits outweigh the risks; there are no data on the secondary transmission of infection by live vaccines with vedolizumab. Non-live vaccines may be given concurrently. ?? Monitoring ?? Observe patients during infusion (until complete) and monitor for hypersensitivity reactions ?? Liver function tests ?? Tuberculosis screening according to local practice ?? Signs/symptoms of infection Education Provided to Patient ?? Pharmacist offer to middle school guidance counselor ?? RN instruction ?? Printed teaching sheets ?? Drug information paperwork - EH patient leaflet FADI Silverman [facility] [id number] [place] [address] , [address] [place] [address] NURSE documented in this encounter Plan of Treatment Upcoming Encounters Date Type Department Care Team (Late st Contact Info) Description 02/13/2025 10:30 AM CDT Office Visit [facility] IBD and Gastro[facility]ology [facility] [place] [address] [place] [address] Kitty Dover ANP [address] [place] [address] documented as of this encounter Visit Diagnoses Not on filedocumented in this encounter Care Teams Shrimp Header Relationship Specialty Start Date End Date Jasiel Freeman MD [address] [place] [address] PCP - General Family Practice 08/15/17 documented as of this encounter
--- OUTSIDE RECORDS SUMMARY | 2024-10-24 05:29 | XMS_ITS | Encounter Summary ---
Author Organization [facility] Address [address] [place] [address] Care Team Providers Care Pressure Dispatcher Name Role Phone Jasiel Freeman MD Primary Care Provider Reason for Visit * Reason Onset Date Comments Medication Change 04/21/2021 Encounter Details Date Type Department Care Team (Late st Contact Info) Description 04/21/2021 Telephone [facility] Gastroenterology [facility] [address] [place] [address] Annette Whitney MD [address] [facility] [address] [address] [place] [address] Medication Change Social History Tobacco Use Types Packs/Day Years [...] encounter Miscellaneous Notes * Telephone Encounter - Annette Whitney MD - 04/21/2021 4:54 PM CDT Bentyl sent to pharmacy * Telephone Encounter - Amanda Perry RMA - 04/21/2021 11:57 AM CDT Pt calling to advise that the hyoscyamine Er is not covered under his insurance plan, they will cover the standard hyoscyamine or dicyclomine. Please send change if appropriate. Amanda documented in this encounter Plan of Treatment Upcoming Encounters Date Type Department Care Team (Late st Contact Info) Description 02/13/2025 10:30 AM CDT Office Visit [facility] IBD and Gastroenterology Center [place] [address] [facility] [address] [place] [address] Kitty Dover, [facility] [address] [facility] [address] [place] [address] documented as of this encounter Visit Diagnoses Not on filedocumented in this encounter Care Teams Pressure Dispatcher Relationship Specialty Start Date End Date Jasiel Freeman MD [address] [place] [phone] PCP - General Family Practice 08/15/17 documented as of this encounter
--- OUTSIDE RECORDS SUMMARY | 2024-10-24 05:29 | XMS_ITS | Encounter Summary ---
Author Organization [facility] Address [address] [place] [address] Care Team Providers Care Cake Stripper Name Role Phone Jasiel Freeman MD Primary Care Provider Encounter Details Date Type Department Care Team (Late st Contact Info) Description 04/14/2021 Specialty Pharmacy [facility] - [address] [place] [address] Thanh Solares, PHARMACIST Social History [...] Progress Notes * Thanh Solares, PHARMACIST - 04/14/2021 1:51 PM CDT Images from the original note were not included. [facility] - [facility] & INFUSION [facility] [address], [address] [place] [address] PH: [phone] FX: [phone] Specialty Pharmacy Infusion Note Patient Name: Edgardo [...] n/a Patient informed on importance of notifying [facility] immediately if any unexpected insurance changes occur. - n/a Authorization good through: 06/15/2021 Delivery: Delivery date: 04/16/2021 How are we shipping the medication? application developer manager Is it ok to leave? yes Delivery note: This assessment performed by: FADI Silverman [facility] [place] [id number] PH: [phone] FX: [phone] Specialty Pharmacy Infusion Note Patient Name: Edgardo [...] changes Patient informed on importance of notifying [facility] immediately if any unexpected insurance changes occur. - yes Authorization good through: 06/15/2021 Delivery: Delivery date: 02/19/2021 How are we shipping the medication? Veneer Sample Maker Is it ok to leave? yes Delivery note: infusion changed to 02/22 This assessment performed by: Thanh Solares PHARMACIST [facility] [address] [place] [address] PH: [phone] FX: [phone] Specialty Pharmacy Infusion Note Patient Name: Edgardo [...] changes Patient informed on importance of notifying [facility] immediately if any unexpected insurance changes occur. - yes Authorization good through: 01/12/2022 Delivery: Delivery date: 01/26/2021 How are we shipping the medication? application developer manager Is it ok to leave? yes Delivery note: deliver before 12pm This assessment performed by: FADI Silverman [facility]fusion [facility] Home Infusion Order Edgardo Elkins 50 y.o. / male Patient's address (May not be service address): [address] [place] [id number] Order Date: 10/20/2020 Order(s): Continue Entyvio 300mg IV every 4 weeks Per: Caren Whitney MD Generic substitution permitted for medications unless otherwise specified Order taken by FADI Silverman [facility] [address] [address] Edgardo Elkins 50 y.o. / male Patient's address on file: [address] [address] Home Phone Work Phone Home Infusion Order [...] x 6 months (through 05/26/19) Per: Caren / KESHA Whitney [facility]enterology [address] [place] [address] Generic substitution permitted Detailed Home Infusion Orders [...] RN will take any ordered labs to [facility] when possible. If labs are not taken to a [facility] lab, it is the responsibility of nursing to make sure labs are faxed to the pharmacy at [phone] Whitney. Catheter Care Catheter type: PIV placed by RETAIL ZONE SPECIALIST prior to each infusion Flush IV catheter [...] lab draws/line complications. ?? Flushes provided by [facility] pharmacy are for [...] of Today's Encounter: Refill note Actions/Narrative: Edgardo Elkins (50 y.o. male) is active with [facility]fusion services receiving Entyvio every 8 weeks at home for ulcerative colitis. ?? Edgardo is due for his next infusion this week. Pharmacist contacted RETAIL ZONE SPECIALIST to coordinate delivery. RN will tack picker today. Patient received last infusion without issue. No questions or concerns at this time. Patient has appointment with Dr. Nair on 01/29. 05/13/19 - Spoke with the patient who stated he is doing well. He has had no changes in his medication therapy or no clinical issues. Will ship medications and supplies to the patient. Thanh Solares MBA, [facility] 08/08/19 - Patient to receive infusion of Entyvio today after an insurance issue. Will send medications and supplies for the infusion. RDS 08/19/19 - Confirmed with the nurse case management specialist that the patient was scheduled to receive [...] Whitney Home Infusion Care Team IV Pharmacy: [facility] [employer] / [phone] Nursing Agency: [facility] Physician(s): Dr. Whitney Additional Relevant Data Insurance Information: Payor: RX [facility] / Plan: RX [employer] ADVANCE PARADIGM / Product Type: RX [employer] / IV access PIV placed by RETAIL ZONE SPECIALIST prior to each infusion Ht Readings from Last 3 Encounters: 06/12/20 5' 9 (1.753 m) 05/20/20 5' 9 (1.753 m) 05/20/20 5' 9 (1.753 m) Wt Readings from Last 3 Encounters: 06/12/20 80.6 kg (177 lb 9.6 oz) 05/20/20 83.9 kg (185 lb) 05/20/20 82.1 kg (181 lb) Patient Active Problem List Diagnosis Code [...] level: Not on file Occupational History Employer: [employer] Employer: [employer] Tobacco Use ??? Smoking status: Former Smoker Packs/day: 0.50 Years: 10.00 Pack years: 5.00 Types: Cigarettes Quit date: 06/09/2011 Years since quittin.8 ??? Smokeless tobacco: Never Used ? ? Tobacco comment: off & on Vaping Use ??? Vaping Use: Never used Substance and Sexual Activity ??? Alcohol use: Yes Comment: rarely ??? Drug use: No ??? Sexual activity: Not on file Other Topics Concern ??? Not on file Social History Narrative ??? Not on file Social Determinants of Health Financial Resource Strain: ??? Difficulty of Paying Living Expenses: Food Insecurity: ??? Worried About Running Out of Food in the Last Year: ??? Ran Out of Food in the Last Year: Transportation Needs: ??? Lack of Transportation (Medical): ??? Lack of Transportation (Non-Medical): Physical Activity: ??? Days of Exercise per Week: ??? Minutes of Exercise per Session: Stress: ??? Feeling of Stress : Social Connections: ??? Frequency of Communication with Friends and Family: ??? Frequency of Social Gatherings with Friends and Family: ??? Attends [employer] Services: ??? Active Member of Clubs or Organizations: ??? Attends Club or Organization Meetings: ??? Marital Status: Intimate Partner Violence: ??? Fear of Current or Ex-Partner: ??? Emotionally Abused: ??? Physically Abused: ??? Sexually Abused: Medication Review Current Outpatient Medications: ??? hyoscyamine 0.375 mg Extended Release 12 hour tablet, Take 1 Tablet (0.375 mg) by mouth every 12 hours as needed for Discomfort., Disp: 60 Tablet, Rfl: 1 ??? ondansetron (ZOFRAN) 4 mg Tablet, Take 1 Tablet (4 mg) by mouth every 8 hours as needed for Nausea/Emesis., Disp: 15 Tablet, Rfl: None ??? ergocalciferol (VITAMIN D2) 50,000 unit capsule, Take 1 Capsule (50,000 Units) by mouth every 2weeks., Disp: 8 Capsule, Rfl: 2 ??? diphenoxylate-atropine (LOMOTIL) 2.5-0.025 mg tablet, Take 1 Tablet by mouth 4 times daily as needed for Diarrhea/Loose Stools., Disp: 60 Tablet, Rfl: 1 ??? Syringe with Needle, Disp, (BD Luer-Jesusita Syringe) 3 mL 23 gauge x 1 1/2 Syringe, For use with B12 injections, Disp: 12 Each, Rfl: 2 ??? cyanocobalamin (VITAMIN B-12) 1,000 mcg/mL Solution, Inject 1 mL (1,000 mcg) by intramuscular injection every 7 days., Disp: 10 mL, Rfl: 1 ??? SOLU-MEDROL, PF, 40 mg/mL Recon Soln, [...] by intraveous injection see administration instructions. Home RETAIL ZONE SPECIALIST to administer over 30 minutes every 8 weeks., Disp: 300 mg, Rfl: 3 ??? TESTOSTERONE, BULK, MISC, 1 mL by Misc.(Non-Drug; Combo Route) route., Disp: , Rfl: Med Review Issues Noted? No issues Lab Review BMP result (most recent): Lab Results Component Value Date/Time GLUCOSE 139 (H) 05/20/2020 04:21 PM GLUCOSE 83 04/29/2020 11:09 AM GLUCOSE 78 07/31/2019 11:33 AM BUN 14 05/20/2020 04:21 PM BUN 13 04/29/2020 11:09 AM BUN 12 07/31/2019 11:33 AM CREAT 1.15 05/20/2020 04:21 PM CREAT 1.19 (H) 04/29/2020 11:09 AM CREAT 1.26 (H) 07/31/2019 11:33 AM NA 139 05/20/2020 04:21 PM NA 140 04/29/2020 11:09 AM NA 140 07/31/2019 11:33 AM K 4.1 05/20/2020 04:21 PM K 3.8 04/29/2020 11:09 AM K 4.2 07/31/2019 11:33 AM CL 103 05/20/2020 04:21 PM CL 102 04/29/2020 11:09 AM CL 103 07/31/2019 11:33 AM CO2 26 05/20/2020 04:21 PM CO2 24 04/29/2020 11:09 AM CO2 26 07/31/2019 11:33 AM ANIONGAP 10 05/20/2020 04:21 PM ANIONGAP 14 04/29/2020 11:09 AM ANIONGAP 11 07/31/2019 11:33 AM MG 1.9 03/15/2012 01:05 PM MG 2.5 02/27/2012 06:05 AM PO4 4.5 02/27/2012 06:05 AM CrCl cannot be calculated (Patient's most recent lab result is older than the maximum 7 days allowed.). LFTs (most recent): Lab Results Component Value Date/Time ALKPHOS 73 05/20/2020 04:21 PM ALKPHOS 60 04/29/2020 11:09 AM ALKPHOS 78 07/31/2019 11:33 AM ALT 49 (H) 05/20/2020 04:21 PM ALT 19 04/29/2020 11:09 AM ALT 25 07/31/2019 11:33 AM AST 45 (H) 05/20/2020 04:21 PM AST 19 04/29/2020 11:09 AM AST 21 07/31/2019 11:33 AM BILITOTAL 0.3 05/20/2020 04:21 PM BILITOTAL 0.4 04/29/2020 11:09 AM BILITOTAL 0.3 07/31/2019 11:33 AM ALBUMIN 4.0 05/20/2020 04:21 PM ALBUMIN 3.8 04/29/2020 11:09 AM ALBUMIN 3.9 07/31/2019 11:33 AM LIPASE 40 02/22/2012 07:24 PM CBC result (most recent): Lab Results Component Value Date/Time WBC 6.1 05/20/2020 04:21 PM WBC 6.8 04/29/2020 11:09 AM WBC 5.5 07/31/2019 11:33 AM HGB 16.3 05/20/2020 04:21 PM HGB 16.6 (H) 04/29/2020 11:09 AM HGB 17.2 (H) 07/31/2019 11:33 AM HCT 53.0 (H) 05/20/2020 04:21 PM HCT 53.8 (H) 04/29/2020 11:09 AM HCT 52.3 (H) 07/31/2019 11:33 AM PLT 345 05/20/2020 04:21 PM PLT 294 04/29/2020 11:09 AM PLT 325 07/31/2019 11:33 AM MCV 87.2 05/20/2020 04:21 PM MCV 85.9 04/29/2020 11:09 AM MCV 86.7 07/31/2019 11:33 AM CRP result (most recent): Lab Results Component Value Date/Time CRP 2.6 04/29/2020 11:09 AM CRP 8.3 (H) 07/31/2019 11:33 AM CRP 3.7 01/29/2019 09:34 AM Lab Review Issues Noted? No issues [...] Provided to Patient ?? Pharmacist offer to senior counsel ?? RN instruction ?? Printed teaching sheets ?? Drug information paperwork - EH patient leaflet FADI Silverman [facility] [address], [address] [place] [address] documented in this encounter Plan of Treatment Upcoming Encounters Date Type Department Care Team (Late st Contact Info) Description 02/13/2025 10:30 AM CDT Office Visit [facility] IBD and Gastroenterology Center [place] [address] [place] [address] Kitty Dover ANP [address] [place] [address] documented as of this encounter Visit Diagnoses Not on filedocumented in this encounter Care Teams Cake Stripper Relationship Specialty Start Date End Date Jasiel Fremean MD [address] [place] [phone] PCP - General Family Practice 08/15/17 documented as of this encounter
--- OUTSIDE RECORDS SUMMARY | 2024-10-24 05:29 | XMS_ITS | Encounter Summary ---
Author Organization [facility] Address [address] [place] [address] Care Team Providers Care Food And Beverage Service Manager Name Role Phone Jasiel Freeman MD Primary Care Provider Encounter Details Date Type Department Care Team (Late st Contact Info) Description 12/20/[address] [facility] Gastroenterology [facility] [address] [facility] [address] [place] [address] Annette Whitney MD [address] [facility] [place] [address] Ulcerative pancolitis without complication Social History Tobacco Use Types Packs/Day Years [...] Description 02/13/2025 10:30 AM CDT Office Visit [facility] IBD and Gastroenterology Center [place] [address] [place] [address] Kitty Dover, [facility] [address] [place] [address] documented as of this encounter Visit Diagnoses Diagnosis Ulcerative pancolitis without complication documented in this encounter Care Teams Food And Beverage Service Manager Relationship Specialty Start Date End Date Jasiel Freeman MD [address] [place] [phone] PCP - General Family Practice 08/15/17 documented as of this encounter
--- OUTSIDE RECORDS SUMMARY | 2024-10-24 05:29 | XMS_ITS | Encounter Summary ---
Author Organization [facility] Address [address] [place] [address] Care Team Providers Care Top Coater Name Role Phone Jasiel Freeman MD Primary Care Provider Encounter Details Date Type Department Care Team (Late st Contact Info) Description 06/03/2021 Abstract [facility] Gastroenterology [facility] [address] [facility] [address] [place] [address] Sondra Lowry Social History Tobacco Use Types Packs/Day Years [...] [facility] [place] [address] [place] [address] Kitty Dover ANP [address] [place] [address] documented as of this encounter Visit Diagnoses Not on filedocumented in this encounter Care Teams Top Coater Relationship Specialty Start Date End Date Jasiel Freeman MD [address] [place] [address] PCP - General Family Practice 08/15/17 documented as of this encounter
--- OUTSIDE RECORDS SUMMARY | 2024-10-24 05:29 | XMS_ITS | Encounter Summary ---
Author Organization [facility] Address [address] [place] [address] Care Team Providers Care Blending Tank Tender Helper Name Role Phone Jasiel Freeman MD Primary Care Provider Reason for Visit * Reason Onset Date Comments Home Visit 03/23/2021 Encounter Details Date Type Department Care Team (Late st Contact Info) Description 03/23/2021 Patient Outreach [facility] - [address] [place] [address] Irina Wyatt, RN Home Visit [...] Sign Reading Time Taken Comments Blood Pressure 104/64 03/23/2021 3:35 PM CDT Pulse 94 03/23/2021 3:35 PM CDT Temperature 35.8 ??C (96.4 ??F) 03/23/2021 3:35 PM CD T Respiratory Rate 16 03/23/2021 3:35 PM CDT Oxygen Saturation 96% 03/23/2021 3:35 PM CDT Inhaled Oxygen Concentration - - Weight - - Height - - Body Mass Index - - documented in this encounter Miscellaneous Notes * Telephone Encounter - Irina Wyatt RN - 03/23/2021 10:27 PM CDT Images from the original note were not included. [facility] [address] [place] [address] Home Infusion NURSING follow up Leonidas Edgardoisaiah Elkins 1970 [address] [facility] [address] Provider - Irina Wyatt RN 03/23/2021 Visit start 1450 Visit end 1600 Contact numbers provided including after hours numbers [...] yes Pt informed on importance of notifying [facility] immediately if any unexpected insurance changes occur.yes No problem observed with learning needs - No cultural, mosque, or language barriers to learning Patient and [...] and dry. Psychiatric: normal mood and affect. 1. penitentiary assessment and implementation of infusion therapy. Teaching of patient/caregiverrole in infusion therapy. Goal : Infusion therapy will be delivered per physicians orders. Infusion access will remain patent. Patient and caregiver will demonstrate an understanding of teaching and learning goals related to infusion therapy. Intervention : 22 gauge PIV placed to left fa without difficulty. Flushed PIV with 5-20 ml NS easily with positive blood return. Entyvio vial (300 mg) reconstituted with 4.8 ml sterile water and swirled for 15 seconds. When clear, reconstituted med added to 250 ml NS. Base line vital signs checked.Infusion completed in 30 min. 30 ml ns used to flush remainder of Entyvio thru line. PIV DC'd, bandaid applied. 2. Management of home medication. Goal: Patient/caregiver will verbalized understanding of medication regime. Intervention: Patient manages all medications except Entyvio. Patient takes medication as ordered, knows purpose, basic side effects, and adverse reactions. Patient knows how to reorder medications. [facility] will [...] Description 02/13/2025 10:30 AM CDT Office Visit [facility] [place] [address] [place] [address] Kitty Dover, MIRTA [address] [place] [address] documented as of this encounter Visit Diagnoses Not on filedocumented in this encounter Care Teams Blending Tank Tender Helper Relationship Specialty Start Date End Date Jasiel Freeman MD [address] [place] [phone] PCP - General Family Practice 08/15/17 documented as of this encounter
--- OUTSIDE RECORDS SUMMARY | 2024-10-24 05:29 | XMS_ITS | Encounter Summary ---
Author Organization [facility] Address [address] [place] [address] Care Team Providers Care Gerentological Physiotherapist Name Role Phone Jasiel Freeman MD Primary Care Provider Encounter Details Date Type Department Care Team (Late st Contact Info) Description 03/14/2022 Orders Only [facility] Gastroenterology [facility] [address] [place] [address] Annette Whitney MD [address] [facility] [place] [address] Ulcerative pancolitis without complication Social History Tobacco [...] Description 02/13/2025 10:30 AM CDT Office Visit [facility] [place] [address] [place] [address] Kitty Dover, MIRTA [address] [place] [address] documented as of this encounter Visit Diagnoses Diagnosis Ulcerative pancolitis without complication documented in this encounter Care Teams Gerentological Physiotherapist Relationship Specialty Start Date End Date Jasiel Freeman MD [address] [place] [phone] PCP - General Family Practice 08/15/17 documented as of this encounter
--- OUTSIDE RECORDS SUMMARY | 2024-10-24 05:29 | XMS_ITS | Encounter Summary ---
Author Organization [facility] Address [address] [place]: [place] [address] Care Team Providers Care Funeral Assistant Name Role Phone Jasiel Freeman MD Primary Care Provider Encounter Details Date Type Department Care Team (Latest Contact Info) Description 08/02/2021 Travel Social History Tobacco Use Types Packs/Day [...] Exposure Response Date Recorded In the last month, have you been in contact with someone who was confirmed or suspected to have Coronavirus / COVID-19? No / Unsure 08/02/2021 9:04 AM CDT documented as of this encounter Plan of Treatment Upcoming Encounters Date Type Department Care Team (Late st Contact Info) Description 02/13/2025 10:30 AM CDT Office Visit [facility] [place] [facility] [place] [address] Kitty Wadsworth, ANP [address] [facility] [address] [place] [address] documented as of this encounter Visit Diagnoses Not on filedocumented in this encounter Care Teams Funeral Assistant Relationship Specialty Start Date End Date Jasiel Freeman MD [address] [place] [phone] PCP - General Family Practice 08/15/17 documented as of this encounter
--- OUTSIDE RECORDS SUMMARY | 2024-10-24 05:29 | XMS_ITS | Encounter Summary ---
Author Organization [facility] Address [address] [place] [address] Care Team Providers Care Sfdc Consultant Name Role Phone Jasiel Freeman MD Primary Care Provider Encounter Details Date Type Department Care Team (Late st Contact Info) Description 06/11/2021 Specialty Pharmacy [facility] - [address] [place] [address] Thanh Solares, PHARMACIST Social History [...] Progress Notes * Thanh Solares, PHARMACIST - 06/11/2021 8:59 AM CDT Images from the original note were not included. [facility] Specialty & Infusion - [facility] SPECIALTY & INFUSION [facility] [address], [address] [place] [address] PH: [phone] FX: [phone] Specialty Pharmacy Infusion Note Patient Name: Edgardo [...] n/a Patient informed on importance of notifying [facility]fusion immediately if any unexpected insurance changes occur. - n/a Authorization good through: 06/15/2022 Delivery: Delivery date: 06/14/2021 How are we shipping the medication? telephoto installer Is it ok to leave? yes Delivery note: This assessment performed by: Thanh Solares, PHARMACIST [facility] SPECIALTY & INFUSION [address], [place] [address] PH: [phone] FX: [phone] Specialty Pharmacy Infusion Note Patient Name: Edgardo [...] n/a Patient informed on importance of notifying [facility] and Infusion immediately if any unexpected insurance changes occur. - n/a Authorization good through: 06/15/2021 Delivery: Delivery date: 05/17/2021 How are we shipping the medication? telephoto installer Is it ok to leave? yes Delivery note: This assessment performed by: Thanh Solares, PHARMACIST [facility]FUSION [facility] [address] [address] [facility], [address] [place] [address] PH: [phone] FX: [phone] Specialty Pharmacy Infusion Note Patient Name: Edgardo [...] 04/16/2021 How are we shipping the medication? telephoto installer Is it ok to leave? yes Delivery note: This assessment performed by: Thanh Solares, PHARMACIST [facility] [id number] [place] [address], [address] [address] PH: [phone] FX: [phone] Specialty Pharmacy Infusion Note Patient Name: Edgardo [...] 02/19/2021 How are we shipping the medication? Radio Interference Supervisor Is it ok to leave? yes Delivery note: infusion changed to 02/22 This assessment performed by: FADI Silverman [facility] SPECIALTY & INFUSION [facility] [address] [facility], [place] [id number] PH: [phone] FX: [phone] Specialty Pharmacy Infusion Note Patient Name: Edgardo [...] 01/26/2021 How are we shipping the medication? telephoto installer Is it ok to leave? yes Delivery note: deliver before 12pm This assessment performed by: FADI Silverman Specialty & Home Infusion [facility] Home Infusion Order Edgardo Elkins 50 y.o. / male Patient's address (May not be service address): [address] [place] [address] Order Date: 10/20/2020 Order(s): Continue Entyvio 300mg IV every 4 weeks Per: Caren Whitney MD Generic substitution permitted for medications unless otherwise specified Order taken by FADI Silverman [facility] [address] [place] [address] Edgardo Elkins 50 y.o. / male Patient's address on file: [address] [place] [address] Home Phone Work Phone Home Infusion Order [...] (through 05/26/19) Per: Caren / KESHA Whitney [facility] Gastroenterology [address] [facility] [address] Generic substitution permitted Detailed Home Infusion Orders [...] RN will take any ordered labs to [facility] when possible. If labs are not taken to a [facility] lab, it is the responsibility of nursing to make sure labs are faxed to the pharmacy at [phone] Whitney. Catheter Care Catheter type: PIV placed by HIDE WORKER prior to each infusion Flush IV catheter [...] lab draws/line complications. ?? Flushes provided by [facility] Specialty and Infusion pharmacy are for [...] Elkins (50 y.o. male) is active with [facility] and Infusion services receiving Entyvio every 8 weeks at home for ulcerative colitis. ?? Edgardo is due for his next infusion this week. Pharmacist contacted HIDE WORKER to coordinate delivery. RN will garbage pick up worker today. Patient received last infusion without issue. No questions or concerns at this time. Patient has appointment with Dr. Nair on 01/29. 05/13/19 - Spoke with the patient who stated he is doing well. He has had no changes in his medication therapy or no clinical issues. Will ship medications and supplies to the patient. Thanh Solares MBA, [facility] 08/08/19 - Patient to receive infusion of Entyvio today after an insurance issue. Will send medications and supplies for the infusion. RDS 08/19/19 - Confirmed with the nurse caser in that the patient was scheduled to receive [...] Whitney Home Infusion Care Team IV Pharmacy: [facility] / [phone] Nursing Agency: [facility] Physician(s): Dr. Whitney Additional Relevant Data Insurance Information: Payor: RX [facility] / Plan: RX [employer] ADVANCE PARADIGM / Product Type: RX [employer] / IV access PIV placed by HIDE WORKER prior to each infusion Ht Readings from [...] level: Not on file Occupational History Employer: [employer] Employer: [employer] Tobacco Use ??? Smoking status: Former Smoker Packs/day: 0.50 Years: 10.00 Pack years: 5.00 Types: Cigarettes Quit date: 06/09/2011 Years since quittin.0 ??? Smokeless tobacco: Never Used ? ? [...] Gatherings with Friends and Family: ??? Attends Restorationism Services: ??? Active Member of Clubs or Organizations: ??? Attends Club or Organization Meetings: ??? Marital Status: Intimate Partner Violence: ??? Fear of Current or Ex-Partner: ??? Emotionally Abused: ??? Physically Abused: ??? Sexually Abused: Medication Review Current Outpatient Medications: ??? dicyclomine (BENTYL) 10 mg capsule, Take 1 Capsule (10 mg) by mouth 4 times daily., Disp: 120 Capsule, Rfl: 2 ??? hyoscyamine 0.375 mg Extended Release 12 [...] by intraveous injection see administration instructions. Home HIDE WORKER to administer over 30 minutes every 8 [...] Provided to Patient ?? Pharmacist offer to pet adoption counselor ?? RN instruction ?? Printed teaching sheets ?? Drug information paperwork - [facility] patient leaflet Thanh Solares, PHARMACIST [facility] [place] [address] [place] [address] documented in this encounter Plan of Treatment Upcoming Encounters Date Type Department Care Team (Late st Contact Info) Description 02/13/2025 10:30 AM CDT Office Visit [facility] [place] [address] [facility] [address] [place] [address] Kitty Dover, MIRTA [address] [facility] [address] [place] [address] documented as of this encounter Visit Diagnoses Not on filedocumented in this encounter Care Teams Sfdc Consultant Relationship Specialty Start Date End Date Jasiel Freeman MD [address] [place] [phone] PCP - General Family Practice 08/15/17 documented as of this encounter
--- OUTSIDE RECORDS SUMMARY | 2024-10-24 05:29 | XMS_ITS | Encounter Summary ---
Author Organization [facility] Address [address] [place] [address] Care Team Providers Care Mold Polisher Name Role Phone Jasiel Freeman MD Primary Care Provider Encounter Details Date Type Department Care Team (Late st Contact Info) Description 11/12/2021 Orders Only [facility] [place] [facility] Specialty and Home Infusion - [address] [place] [address] Thanh Solares PHARMACIST Social History Tobacco Use Types Packs/Day [...] [facility] [place] [address] [place] [address] Kitty Dover, MIRTA [address] [place] [address] documented as of this encounter Visit Diagnoses Not on filedocumented in this encounter Care Teams Mold Polisher Relationship Specialty Start Date End Date Jasiel Freeman MD [address] [place] [address] PCP - General Family Practice 08/15/17 documented as of this encounter
--- OUTSIDE RECORDS SUMMARY | 2024-10-24 05:29 | XMS_ITS | Encounter Summary ---
Author Organization [facility] Address [address] [place] [address] Care Team Providers Care Instructor Private Name Role Phone Jasiel Freeman MD Primary Care Provider Encounter Details Date Type Department Care Team (Late st Contact Info) Description 09/27/2021 Orders Only [facility] Gastroenterology [facility] [address] [facility] [address] [place] [address] Annette Whitney MD [address] [facility] [place] [address] Ulcerative pancolitis without complication Social History Tobacco [...] 10:30 AM CDT Office Visit [facility] IBD and Gastro[facility]ology [facility] [place] [address] [place] [address] Kitty Dover, MIRTA [address] [place] [address] [place] [address] documented as of this encounter Visit Diagnoses Diagnosis Ulcerative pancolitis without complication documented in this encounter Care Teams Instructor Private Relationship Specialty Start Date End Date Jasiel Freeman MD [address] [place] [phone] PCP - General Family Practice 08/15/17 documented as of this encounter
--- OUTSIDE RECORDS SUMMARY | 2024-10-24 05:29 | XMS_ITS | Encounter Summary ---
Author Organization [facility] Address [address] [facility] [place] [address] Care Team Providers Care Assistant Corporate Secretary Name Role Phone Jasiel Freeman MD Primary Care Provider Encounter Details Date Type Department Care Team (Late st Contact Info) Description 01/26/2021 Specialty Pharmacy [facility] Specialty and Home Infusion - [address] [place] [address] Thanh Solares PHARMACIST Social History [...] [facility] [place] [address] [place] [address] Kitty Dover, MIRTA [address] [facility] [address] [place] [address] documented as of this encounter Visit Diagnoses Not on filedocumented in this encounter Care Teams Assistant Corporate Secretary Relationship Specialty Start Date End Date Jasiel Freeman MD [address] [place] [address] PCP - General Family Practice 08/15/17 documented as of this encounter
--- OUTSIDE RECORDS SUMMARY | 2024-10-24 05:29 | XMS_ITS | Encounter Summary ---
Author Organization [facility] Address [address] [place] [address] Care Team Providers Care Trust Administrator Name Role Phone Jasiel Freeman MD Primary Care Provider [phone] Reason for Referral * Outpatient Services (Routine) - Closed Specialty Diagnoses / Procedures Referred By Contalka t Referred To Contact Pharmacy Diagnoses Ulcerative pancolitis without complication Procedures INFUSION THERAPY Annette Whitney MD [address] [facility] [address] [place] [address] Zzzstlrx [facility] [place] [facility] Specialty And Home Infusion [address] [place] [address] Referral ID Status Reason Start Date Expiration Date Visits Re quested Visits Authorized [id number] Closed 08/06/2021 09/06/2022 1 1 Encounter Details Date Type Department Care Team (Late st Contact Info) Description 08/06/2021 Orders Only [facility] Gastroenterology [facility] [address] [facility] [address] [place] [address] Annette Whitney MD 1 [facility] [place] [address] Ulcerative pancolitis without complication (Primary [...] [facility] [place] [address] [facility] [address] [place] [address] Kitty Dover [facility] [address] [facility] [address] [place] [address] documented as of this encounter Visit Diagnoses Diagnosis Ulcerative pancolitis without complication- Primary documented in this encounter Care Teams Trust Administrator Relationship Specialty Start Date End Date Jasiel Freeman MD [address] [place] [phone] PCP - General Family Practice 08/15/17 documented as of this encounter
--- OUTSIDE RECORDS SUMMARY | 2024-10-24 05:29 | XMS_ITS | Encounter Summary ---
Author Organization [facility] Address [address] [place] [address] Care Team Providers Care Boulevard Glassware Replacer Name Role Phone Jasiel Freeman MD Primary Care Provider Encounter Details Date Type Department Care Team (Late st Contact Info) Description 07/08/2021 Specialty Pharmacy [facility] - [address] [place] [address] Thanh Solares, PHARMACIST Social History [...] Progress Notes * Thanh Solares, PHARMACIST - 07/08/2021 10:55 AM CDT Images from the original note were not included. [facility] Specialty [facility] Infusion - [facility] SPECIALTY & INFUSION [facility] [address], [address] [place] [address] PH: [phone] FX: [phone] Specialty Pharmacy Infusion Note Patient Name: Edgardo [...] n/a Patient informed on importance of notifying [facility] Specialty and Infusion immediately if any unexpected insurance changes occur. - n/a Authorization good through: 06/15/2022 Delivery: Delivery date: 07/12/2021 How are we shipping the medication? cigarette tester Is it ok to leave? yes Delivery note: This assessment performed by: Thanh Solares, PHARMACIST [facility] SPECIALTY & INFUSION [address], [place] [address] PH: [phone] FX: [phone] Specialty Pharmacy Infusion Note Patient Name: Edgardo [...] n/a Patient informed on importance of notifying [facility] Specialty and Infusion immediately if any unexpected insurance changes occur. - n/a Authorization good through: 06/15/2022 Delivery: Delivery date: 06/14/2021 How are we shipping the medication? cigarette tester Is it ok to leave? yes Delivery note: This assessment performed by: Thanh Solares, PHARMACIST [facility] [address], [address] [place] [address] PH: [phone] FX: [phone] Specialty Pharmacy Infusion Note Patient Name: Edgardo [...] 05/17/2021 How are we shipping the medication? cigarette tester Is it ok to leave? yes Delivery note: This assessment performed by: Thanh Solares, PHARMACIST [facility] [address], [address] [address] PH: [phone] FX: [phone] Specialty Pharmacy Infusion Note Patient Name: Edgardo [...] 04/16/2021 How are we shipping the medication? cigarette tester Is it ok to leave? yes Delivery note: This assessment performed by: Thanh Solares PHARMACIST [facility] [address] [place] [address] PH: [phone] FX: [phone] Specialty Pharmacy Infusion Note Patient Name: Edgardo [...] changes Patient informed on importance of notifying [facility]fusion immediately if any unexpected insurance changes occur. - yes Authorization good through: 06/15/2021 Delivery: Delivery date: 02/19/2021 How are we shipping the medication? Parts Sales Manager Is it ok to leave? yes Delivery note: infusion changed to 02/22 This assessment performed by: Thanh Solares PHARMACIST [facility] [id number] [place] [address], [address] [address] PH: [phone] FX: [phone] Specialty Pharmacy Infusion Note Patient Name: Edgardo [...] 01/26/2021 How are we shipping the medication? cigarette tester Is it ok to leave? yes Delivery note: deliver before 12pm This assessment performed by: FADI Silverman [facility] Specialty & Home Infusion [facility] Home Infusion Order Edgardo Elkins 50 y.o. / male Patient's address (May not be service address): [address] [place] [address] Order Date: 07/08/21 Order(s): VEDOLIZUMAB( ENTYVIO) STANDING ORDERS Negative Tuberculin [...] otherwise specified Order taken by FADI Silverman [facility]fusion [facility] [address] [place] [address] [facility] Specialty & Home Infusion [facility] Home Infusion Order Edgardo Elkins 50 y.o. / male Patient's address (May not be service address): [address] [facility] [address] Order Date: 10/20/2020 Order(s): Continue Entyvio 300mg IV every 4 weeks Per: Caren Whitney MD Generic substitution permitted for medications unless otherwise specified Order taken by Thanh Solares PHARMACIST [facility] Specialty & Home Infusion [facility] [address] [place] [address] Edgardo Welcher 50 y.o. / male Patient's address on file: [address] [place] [address] Home Phone Work Phone Home Infusion Order [...] (through 05/26/19) Per: Caren / KESHA Whitney [facility] [address], [address] [facility] [address] Generic substitution permitted Detailed Home Infusion Orders [...] RN will take any ordered labs to [facility] when possible. If labs are not taken to a [facility] lab, it is the responsibility of nursing to make sure labs are faxed to the pharmacy at [phone] Whitney. Catheter Care Catheter type: PIV placed by CUT OUT PRESS OPERATOR prior to each infusion Flush IV [...] lab draws/line complications. ?? Flushes provided by [facility] Specialty and Infusion pharmacy are for [...] Elkins (50 y.o. male) is active with [facility] Specialty and Infusion services receiving Entyvio every 8 weeks at home for ulcerative colitis. ?? Edgardo is due for his next infusion this week. Pharmacist contacted CUT OUT PRESS OPERATOR to coordinate delivery. RN will bulk picker today. Patient received last infusion without issue. No questions or concerns at this time. Patient has appointment with Dr. Nair on 01/29. 05/13/19 - Spoke with the patient who stated he is doing well. He has had no changes in his medication therapy or no clinical issues. Will ship medications and supplies to the patient. Thanh Solares MBA, [facility] 08/08/19 - Patient to receive infusion of Entyvio today after an insurance issue. Will send medications and supplies for the infusion. RDS 08/19/19 - Confirmed with the nurse field nurse case manager that the patient was scheduled to receive [...] [facility]fusion [email or web address] [phone] Nursing Agency: [facility] Physician(s): Dr. Whitney Additional Relevant Data Insurance Information: Payor: RX [employer] / Plan: RX PCS ADVANCE PARADIGM / Product Type: RX Caremark / IV access PIV placed by CUT OUT PRESS OPERATOR prior to each infusion Ht Readings [...] level: Not on file Occupational History Employer: [employer] Employer: [employer] Tobacco Use ??? Smoking [...] Gatherings with Friends and Family: ??? Attends Adventism Services: ??? Active Member of Clubs or [...] by intraveous injection see administration instructions. Home CUT OUT PRESS OPERATOR to administer over 30 minutes every [...] Provided to Patient ?? Pharmacist offer to industrial relations counselor ?? RN instruction ?? Printed teaching sheets ?? Drug information paperwork - [facility] patient leaflet FADI Silverman [facility] Specialty & Infusion - [place] [id number] [place] [address] , [address] [place] [address] documented in this encounter Plan of Treatment Upcoming Encounters Date Type Department Care Team (Late st Contact Info) Description 02/13/2025 10:30 AM CDT Office Visit [facility] [place] [address] [facility] [address] [place] [address] Kitty Dover ANP [address] [facility] [address] [place] [address] documented as of this encounter Visit Diagnoses Not on filedocumented in this encounter Care Teams Boulevard Glassware Replacer Relationship Specialty Start Date End Date Jasiel Freeman MD [address] [place] [phone] PCP - General Family Practice 08/15/17 documented as of this encounter
--- OUTSIDE RECORDS SUMMARY | 2024-10-24 05:29 | XMS_ITS | Encounter Summary ---
Author Organization [facility] Address [address] [place] [address] Care Team Providers Care Tax Associate Attorney Name Role Phone Jasiel Freeman MD Primary Care Provider [phone] Reason for Visit * Reason Onset Date Comments Home Visit 12/14/2021 Encounter Details Date Type Department Care Team (Late st Contact Info) Description 12/14/2021 Patient Outreach [facility] Specialty and Home Infusion - [address] [place] [address] Irina Wyatt, RN Home Visit [...] Sign Reading Time Taken Comments Blood Pressure 140/82 12/14/2021 2:30 PM DIRECT CARE COUNSELOR Pulse 97 12/14/2021 2:30 PM DIRECT CARE COUNSELOR Temperature 37 ??C (98.6 ??F) 12/14/2021 2:30 PM DIRECT CARE COUNSELOR Respiratory Rate 16 12/14/2021 2:30 PM DIRECT CARE COUNSELOR Oxygen Saturation 97% 12/14/2021 2:30 PM DIRECT CARE COUNSELOR Inhaled Oxygen Concentration - - Weight - - Height - - Body Mass Index - - documented in this encounter Miscellaneous Notes * Telephone Encounter - Irina Wyatt RN - 12/16/2021 12:20 PM CST Images from the original note were not included. [facility] Specialty and Home Infusion Pharmacy Home Infusion NURSING follow up Tamekaraad Edgardo Palomino Brittni 1970 [address] [facility] [address] Provider - Irina Wyatt RN 12/14/21 Visit start 1415 Visit end 1530 Contact numbers provided including [...] yes Pt informed on importance of notifying [facility]ty Pharmacy immediately if any unexpected insurance changes occur.yes No problem observed with learning needs - No cultural, mandaen, or language barriers to learning Patient and [...] normal mood and affect. Pain: 0 1. group home assessment and implementation of infusion therapy. [...] reactions. Patient knows how to reorder medications. [facility] Specialty and Home Infusion Pharmacy will [...] in approximately [address] Entyvio infusion CT CARE COUNSELOR documented in this encounter Plan of Treatment Upcoming Encounters Date Type Department Care Team (Late st Contact Info) Description 02/13/2025 10:30 AM CDT Office Visit [facility] IBD [facility] Gastro[facility] [address] [place] [address] [place] [phone] Kitty Dover ANP [address] [place] [address] [place] [address] documented as of this encounter Visit Diagnoses Not on filedocumented in this encounter Care Teams Tax Associate Attorney Relationship Specialty Start Date End Date Jasiel Freeman MD [address] [place] [phone] PCP - General Family Practice 08/15/17 documented as of this encounter
--- OUTSIDE RECORDS SUMMARY | 2024-10-24 05:29 | XMS_ITS | Encounter Summary ---
Author Organization [facility] Address [address] [place] [address] Care Team Providers Care Cad Draftsman Name Role Phone Jasiel Freeman MD Primary Care Provider Encounter Details Date Type Department Care Team (Late st Contact Info) Description 12/07/2021 Specialty Pharmacy [facility] Specialty and Home Infusion - [address] [place] [address] Thanh Solares, PHARMACIST Social History [...] Progress Notes * Thanh Solares, PHARMACIST - 12/07/2021 10:25 AM CST Images from the original note were not included. [facility] Specialty & Infusion - [facility] SPECIALTY & INFUSION [facility] [address], [address] [place] [address] PH: [phone] FX: [phone] Specialty Pharmacy Infusion Note Patient Name: Edgardo Elkins Person Contacted: Edgardo Relation to patient: self Call Date: 12/07/2021 Reason for call: ?? Check the patient's [...] changes Patient informed on importance of notifying [facility] Infusion immediately if any unexpected insurance changes occur. - yes Authorization good through: 06/15/2022 Delivery: Delivery date: 12/13/2021 How are we shipping the medication? Steel Layer Is it ok to leave? yes Delivery note: This assessment performed by: Thanh Solares, PHARMACIST [facility] SPECIALTY & INFUSION [place] [id number] PH: [phone] FX: [phone] Specialty Pharmacy Infusion Note Patient Name: Edgardo Elkins Person Contacted: Called patient - no answer Relation to patient: left message Call Date: 11/12/2021 Reason for call: ?? Check the patient's [...] anticipated Patient informed on importance of notifying [facility] and Infusion immediately if any unexpected insurance changes occur. - yes Authorization good through: 06/15/2022 Delivery: Delivery date: 11/15/2021 How are we shipping the medication? Steel Layer Is it ok to leave? yes Delivery note: This assessment performed by: Thanh Solares PHARMACIST [facility] SPECIALTY & INFUSION [address] [address] PH: [phone] FX: [phone] Specialty Pharmacy Infusion Note Patient Name: Edgardo [...] anticipated Patient informed on importance of notifying [facility] Infusion immediately if any unexpected insurance changes occur. - yes Authorization good through: 06/15/2022 Delivery: Delivery date: 10/13/2021 How are we shipping the medication? Steel Layer Is it ok to leave? yes Delivery note: This assessment performed by: Thanh Solares, PHARMACIST [facility] [address], [facility] [address] [place] [address] PH: [phone] FX: [phone] Specialty Pharmacy Infusion Note Patient Name: Edgardo [...] anticipated Patient informed on importance of notifying [facility] Infusion immediately if any unexpected insurance changes occur. - yes Authorization good through: 06/15/2022 Delivery: Delivery date: 09/13/2021 How are we shipping the medication? Steel Layer Is it ok to leave? yes Delivery note: This assessment performed by: Thanh Solares, PHARMACIST [facility] [address] [address], [address] [place] [address] PH: [phone] FX: [phone] Specialty Pharmacy Infusion Note Patient Name: Edgardo [...] 08/09/2021 How are we shipping the medication? Steel Layer Is it ok to leave? yes Delivery note: This assessment performed by: Thanh Solares, PHARMACIST [facility] [address] [place] [address], [address] [address] PH: [phone] FX: [phone] Specialty Pharmacy Infusion Note Patient Name: Edgardo [...] 07/12/2021 How are we shipping the medication? inside solar sales consultant Is it ok to leave? yes Delivery note: This assessment performed by: Thanh Solares, PHARMACIST [facility] [address] [address] PH: [phone] FX: [phone] Specialty Pharmacy Infusion Note Patient Name: Edgardo [...] 06/14/2021 How are we shipping the medication? inside solar sales consultant Is it ok to leave? yes Delivery note: This assessment performed by: Thanh Solares, PHARMACIST [facility] [address], [address] [address] PH: [phone] FX: [phone] Specialty Pharmacy Infusion Note Patient Name: Edgardo [...] 05/17/2021 How are we shipping the medication? inside solar sales consultant Is it ok to leave? yes Delivery note: This assessment performed by: Thanh Solares, PHARMACIST [facility] [address] [address] [facility], [address] [place] [address] PH: [phone] FX: [phone] Specialty Pharmacy Infusion Note Patient Name: Edgardo [...] n/a Patient informed on importance of notifying [facility] Infusion immediately if any unexpected insurance changes occur. - n/a Authorization good through: 06/15/2021 Delivery: Delivery date: 04/16/2021 How are we shipping the medication? inside solar sales consultant Is it ok to leave? yes Delivery note: This assessment performed by: FADI Silverman [facility] SPECIALTY & INFUSION [facility] [address], [address] [place] [address] PH: [phone] FX: [phone] Specialty Pharmacy Infusion Note Patient Name: Edgardo [...] changes Patient informed on importance of notifying [facility] Specialty and Infusion immediately if any unexpected insurance changes occur. - yes Authorization good through: 06/15/2021 Delivery: Delivery date: 02/19/2021 How are we shipping the medication? Steel Layer Is it ok to leave? yes Delivery note: infusion changed to 5/3 This assessment performed by: FADI Silverman [facility] SPECIALTY & INFUSION [address], [address] [place] [address] PH: [phone] FX: [phone] Specialty Pharmacy Infusion Note Patient Name: Edgardo [...] changes Patient informed on importance of notifying [facility] Specialty and Infusion immediately if any unexpected insurance changes occur. - yes Authorization good through: 01/12/2022 Delivery: Delivery date: 01/26/2021 How are we shipping the medication? inside solar sales consultant Is it ok to leave? yes Delivery note: deliver before 12pm This assessment performed by: FADI Silverman [facility] Specialty & Home Infusion [facility] Infusion Order Edgardo Elkins 51 y.o. / male Patient's address (May not be service address): [address] [place], [place] [id number] Order Date: 08/06/2021 Order(s): VEDOLIZUMAB( ENTYVIO) STANDING [...] specified Order taken by Thanh Solares, PHARMACIST [facility] [place] [address] [facility] Specialty & Home Infusion [facility] Infusion Order Edgardo Elkins 51 y.o. / male Patient's address (May not be service address): [address] [place] [address] Order Date: 07/08/2021 Order(s): VEDOLIZUMAB( ENTYVIO) STANDING [...] otherwise specified Order taken by FADI Silverman [facility] Specialty & Home Infusion [address] [address] [facility] Specialty & Home Infusion [facility] Home Infusion Order Edgardo Georgette Thyer 51 y.o. / male Patient's address (May not be service address): [address] [place] [address] Order Date: 10/20/2020 Order(s): Continue Entyvio 300mg IV every 4 weeks Per: Caren Whitney MD Generic substitution permitted for medications unless otherwise specified Order taken by FADI Silverman [facility] Specialty & Home Infusion [address] [address] Edgardo S Thyer 51 y.o. / male Patient's address on file: [address] [facility] [address] Home Phone Work Phone Home Infusion Order [...] 6 months (through 05/26/19) Per: Caren Whitney [facility] Gastroenterology [address], [address] [place] [address] Generic substitution permitted Detailed Home Infusion Orders [...] RN will take any ordered labs to [facility] when possible. If labs are not taken to a [facility] lab, it is the responsibility of nursing to make sure labs are faxed to the pharmacy at [phone] Whitney. Catheter Care Catheter type: PIV placed by MICA MACHINE OPERATOR prior to each infusion Flush [...] lab draws/line complications. ?? Flushes provided by [facility] Specialty and Infusion pharmacy are [...] Today's Encounter: Refill note Actions/Narrative: Edgardo Elkins (51 y.o. male) is active with [facility] Specialty and Infusion services receiving Entyvio every 8 weeks at home for ulcerative colitis. ?? Edgardo is due for his next infusion this week. Pharmacist contacted MICA MACHINE OPERATOR to coordinate delivery. RN will fruit or nut picker today. Patient received last infusion without issue. No questions or concerns at this time. Patient has appointment with Dr. Nair on 01/29. 05/13/19 - Spoke with the patient who stated he is doing well. He has had no changes in his medication therapy or no clinical issues. Will ship medications and supplies to the patient. Thanh Solares MBA, [facility] 08/08/19 - Patient to receive infusion of Entyvio today after an insurance issue. Will send medications and supplies for the infusion. RDS 08/19/19 - Confirmed with the nurse case management coordinator that the patient was scheduled to receive [...] Whitney Home Infusion Care Team IV Pharmacy: [facility] / [phone] Nursing Agency: [facility] Physician(s): Dr. Whitney Additional Relevant Data Insurance Information: Payor: RX [facility] / Plan: RX PCS ADVANCE PARADIGM / Product Type: RX Caremark / IV access PIV placed by MICA MACHINE OPERATOR prior to each infusion Ht [...] level: Not on file Occupational History Employer: [employer] Employer: [employer] Tobacco Use ??? Smoking status: Former Smoker Packs/day: 0.50 Years: 10.00 Pack years: 5.00 Types: Cigarettes Quit date: 06/09/2011 Years since quittin.5 ??? Smokeless tobacco: Never Used ? ? [...] on file Housing Stability: Not on file Medication Review Current Outpatient Medications: ??? dicyclomine (BENTYL) 10 mg capsule, TAKE 1 CAPSULE BY MOUTH FOUR TIMES A DAY, Disp: 120 Capsule, Rfl: 0 ??? water sterile Solution, 4.8 mL by See Admin Instructions route see administration instructions., Disp: 10 mL, Rfl: 6 ??? ergocalciferol (VITAMIN D2) 50,000 unit capsule, Take 1 Capsule (50,000 Units) by mouth every 2weeks., Disp: 8 Capsule, Rfl: 2 ??? hyoscyamine 0.375 mg [...] by intraveous injection see administration instructions. Home MICA MACHINE OPERATOR to administer over 30 minutes [...] Provided to Patient ?? Pharmacist offer to student counsellor ?? RN instruction ?? Printed teaching sheets ?? Drug information paperwork - [facility] patient leaflet FADI Silverman [facility] Infusion [facility] [id number] [place] [address] , [address] [place] [address] INIST AUTOMOTIVE documented in this encounter Plan of Treatment Upcoming Encounters Date Type Department Care Team (Late st Contact Info) Description 02/13/2025 10:30 AM CDT Office Visit [facility] IBD and Gastro[facility]ology [facility] [place] [address] [facility] [address] [place] [address] Kitty Dover ANP [address] [facility] [address] [place] [address] documented as of this encounter Visit Diagnoses Not on filedocumented in this encounter Care Teams Cad Draftsman Relationship Specialty Start Date End Date Jasiel Freeman MD [address] [place] [phone] PCP - General Family Practice 08/15/17 documented as of this encounter
--- OUTSIDE RECORDS SUMMARY | 2024-10-24 05:29 | XMS_ITS | Encounter Summary ---
Author Organization [facility] Address [address] [place] [address] Care Team Providers Care Wire Frame Lampshade Maker Name Role Phone Jasiel Freeman MD Primary Care Provider Reason for Visit * Reason Onset Date Comments IV Med 05/20/2021 Called patient f or 48 hour post infusion follow up. Pt reports that they are feeling well, no side effects or adverse events after their infusion. Denies any new symptoms or concerns. Instructed to call if any questions/concerns arise. [facility] and MD contact information. Encounter Details Date Type Department Care Team (Late st Contact Info) Description 05/20/2021 Telephone [facility] Specialty and Home Infusion - [address] [place] [address] Irina Wyatt RN IV Med (Called patient for 48 hour post infusion follow up. Pt reports that they are feeling well, no side effects or adverse events after their infusion. Denies any new symptoms or concerns. Instructed to call if any questions/concerns arise. [facility] and MD contact information. ) Social History Tobacco Use Types Packs/Day Years [...] Description 02/13/2025 10:30 AM CDT Office Visit [facility] IBD and Gastroenterology [facility] [place] [address] [facility] [address] [place] [phone] Kitty Dover, ANP [address] [place] [address] documented as of this encounter Visit Diagnoses Not on filedocumented in this encounter Care Teams Wire Frame Lampshade Maker Relationship Specialty Start Date End Date Jasiel Freeman MD [address] [place] [phone] PCP - General Family Practice 08/15/17 documented as of this encounter
--- OUTSIDE RECORDS SUMMARY | 2024-10-24 05:29 | XMS_ITS | Encounter Summary ---
Author Organization [facility] Address [address] [place] [address] Care Team Providers Care Prior Authorization Nurse Name Role Phone Jasiel Freeman MD Primary Care Provider Reason for Visit * Reason Comments Medication Refill Encounter Details Date Type Department Care Team (Late st Contact Info) Description 07/14/2021 Refill [facility] Gastroenterology [facility] [address] [facility] [address] [place] [address] Annette Whitney MD [address] [place] [address] Social History Tobacco Use Types Packs/Day Years [...] encounter Miscellaneous Notes * Telephone Encounter - Joaquina Trejo - 07/14/2021 12:56 PM CDT TEQUILA: 05/20/20 w/ Gilma ROV: 08/02/21 w/ Gilma documented in this encounter Plan of Treatment Upcoming Encounters Date Type Department Care Team (Late st Contact Info) Description 02/13/2025 10:30 AM CDT Office Visit [facility] IBD and Gastroenterology Center [place] [address] [place] [address] Kitty Dover ANP [address] [place] [address] documented as of this encounter Visit Diagnoses Not on filedocumented in this encounter Care Teams Prior Authorization Nurse Relationship Specialty Start Date End Date Jasiel Freeman MD [address] [place] [phone] PCP - General Family Practice 08/15/17 documented as of this encounter
--- OUTSIDE RECORDS SUMMARY | 2024-10-24 05:29 | XMS_ITS | Encounter Summary ---
Author Organization [facility] Address [address] [place] [address] Care Team Providers Care Warehouse Unloader Name Role Phone Jasiel Freeman MD Primary Care Provider Encounter Details Date Type Department Care Team (Late st Contact Info) Description 09/10/2021 Specialty Pharmacy [facility] Specialty and Home Infusion - [address] [place] [address] Thanh Solares, PHARMACIST Social History [...] Progress Notes * Thanh Solares, PHARMACIST - 09/10/2021 3:23 PM CST Images from the original note were not included. [facility] Specialty & Infusion - [facility] SPECIALTY & INFUSION [facility] [address] [address] [address], [address] [place] [address] PH: [phone] FX: [phone] Specialty Pharmacy Infusion Note Patient Name: Edgardo [...] anticipated Patient informed on importance of notifying [facility]fusion immediately if any unexpected insurance changes occur. - yes Authorization good through: 06/15/2022 Delivery: Delivery date: 09/13/2021 How are we shipping the medication? Tile And Marble Installer Is it ok to leave? yes Delivery note: This assessment performed by: Thanh Solares, PHARMACIST [facility] [place] [address] PH: [phone] FX: [phone] Specialty Pharmacy Infusion Note Patient Name: Edgardo [...] anticipated Patient informed on importance of notifying [facility] Specialty and Infusion immediately if any unexpected insurance changes occur. - yes Authorization good through: 06/15/2022 Delivery: Delivery date: 08/09/2021 How are we shipping the medication? Tile And Marble Installer Is it ok to leave? yes Delivery note: This assessment performed by: Thanh Solares PHARMACIST [facility] SPECIALTY & INFUSION [place] [id number] PH: [phone] FX: [phone] Specialty Pharmacy Infusion Note Patient Name: Edgardo [...] 07/12/2021 How are we shipping the medication? senior office support assistant sosa Is it ok to leave? yes Delivery note: This assessment performed by: Thanh Solares, PHARMACIST [facility] SPECIALTY & INFUSION [facility] [address] [address] PH: [phone] FX: [phone] Specialty Pharmacy Infusion Note Patient Name: Edgardo [...] 06/14/2021 How are we shipping the medication? senior office support assistant sosa Is it ok to leave? yes Delivery note: This assessment performed by: Thanh Solares, PHARMACIST [facility] [place] [id number] [address] [address] PH: [phone] FX: [phone] Specialty Pharmacy Infusion Note Patient Name: Edgardo [...] 05/17/2021 How are we shipping the medication? senior office support assistant sosa Is it ok to leave? yes Delivery note: This assessment performed by: Thanh Solares, PHARMACIST [facility] [address] [address] PH: [phone] FX: [phone] Specialty Pharmacy Infusion Note Patient Name: Edgardo [...] 04/16/2021 How are we shipping the medication? senior office support assistant sosa Is it ok to leave? yes Delivery note: This assessment performed by: FADI Silverman [facility] SPECIAL[facility] INF[facility]ION [address], [place] [id number] PH: [phone] FX: [phone] Specialty Pharmacy Infusion Note Patient Name: Edgardo [...] changes Patient informed on importance of notifying [facility] immediately if any unexpected insurance changes occur. - yes Authorization good through: 06/15/2021 Delivery: Delivery date: 02/19/2021 How are we shipping the medication? Tile And Marble Installer Is it ok to leave? yes Delivery note: infusion changed to 02/22 This assessment performed by: FADI Silverman [facility] INF[facility] [address] [address] PH: [phone] FX: [phone] Specialty Pharmacy Infusion Note Patient Name: Edgardo [...] changes Patient informed on importance of notifying [facility]fusion immediately if any unexpected insurance changes occur. - yes Authorization good through: 01/12/2022 Delivery: Delivery date: 01/26/2021 How are we shipping the medication? senior office support assistant sosa Is it ok to leave? yes Delivery note: deliver before 12pm This assessment performed by: FADI Silverman [facility] Specialty & Home Infusion [facility] Home Infusion Order Edgardo Elkins 50 y.o. / male Patient's address (May not be service address): [address] [place] [id number] Order Date: 08/06/2021 Order(s): VEDOLIZUMAB( ENTYVIO) STANDING [...] by FADI Silverman Specialty & Home Infusion [facility] [address] [place] [address] [facility] Specialty & Home Infusion [facility] Home Infusion Order Edgardo Elkins 50 y.o. / male Patient's address (May not be service address): [address] [facility] [address] Order Date: 07/08/2021 Order(s): VEDOLIZUMAB( ENTYVIO) STANDING [...] specified Order taken by Thanh Solares, PHARMACIST [facility] Specialty & Home Infusion [place] [address] [place] [address] [facility] Specialty & Home Infusion [facility] Home Infusion Order Edgardo Elkins 50 y.o. / male Patient's address (May not be service address): [address] [address] Order Date: 10/20/2020 Order(s): Continue Entyvio 300mg IV every 4 weeks Per: Caren Whitney MD Generic substitution permitted for medications unless otherwise specified Order taken by Thanh Solares, PHARMACIST [facility] Specialty & Home Infusion [address] [address] Edgardo Elkins 50 y.o. / male Patient's address on file: [address] [address] Home Phone Work Phone Home Infusion Order [...] (through 05/26/19) Per: Caren / KESHA Whitney [facility] Gastroenterology [address], [address] [facility] [phone] Generic substitution permitted Detailed Home Infusion Orders [...] RN will take any ordered labs to [facility] when possible. If labs are not taken to a [facility] lab, it is the responsibility of nursing to make sure labs are faxed to the pharmacy at [phone] Whitney. Catheter Care Catheter type: PIV placed by TRANSMISSION AND PROTECTION ENGINEER prior to each infusion Flush IV catheter [...] lab draws/line complications. ?? Flushes provided by [facility] Specialty and Infusion pharmacy are for use [...] Elkins (50 y.o. male) is active with [facility] Specialty and Infusion services receiving Entyvio every 8 weeks at home for ulcerative colitis. ?? Edgardo is due for his next infusion this week. Pharmacist contacted TRANSMISSION AND PROTECTION ENGINEER to coordinate delivery. RN will hand picker today. Patient received last infusion without issue. No questions or concerns at this time. Patient has appointment with Dr. Nair on 01/29. 05/13/19 - Spoke with the patient who stated he is doing well. He has had no changes in his medication therapy or no clinical issues. Will ship medications and supplies to the patient. Thanh Solares MBA, [facility] 08/08/19 - Patient to receive infusion of Entyvio today after an insurance issue. Will send medications and supplies for the infusion. RDS 08/19/19 - Confirmed with the nurse case coordinator that the patient was scheduled to [...] [facility] Care Team IV Pharmacy: [facility] Infusion / [phone] Nursing Agency: [facility] Infusion Physician(s): Dr. Whitney Additional Relevant Data Insurance Information: Payor: RX [employer] / Plan: RX PCS ADVANCE PARADIGM / Product Type: RX Caremark / IV access PIV placed by TRANSMISSION AND PROTECTION ENGINEER prior to each infusion Ht Readings from [...] level: Not on file Occupational History Employer: [employer] Employer: [employer] Tobacco Use ??? Smoking status: Former Smoker Packs/day: 0.50 Years: 10.00 Pack years: 5.00 Types: Cigarettes Quit date: 06/09/2011 Years since quittin.2 ??? Smokeless tobacco: Never Used ? ? [...] by intraveous injection see administration instructions. Home TRANSMISSION AND PROTECTION ENGINEER to administer over 30 minutes every [...] Provided to Patient ?? Pharmacist offer to personnel counselor ?? RN instruction ?? Printed teaching sheets ?? Drug information paperwork - E[facility] patient leaflet Thanh Solares PHARMACIST [facility] & Infusion - [place] [address] [facility] , [address] [place] [address] SETTER documented in this encounter Plan of Treatment Upcoming Encounters Date Type Department Care Team (Late st Contact Info) Description 02/13/2025 10:30 AM CDT Office Visit [facility] IBD and Gastroenterology Center [place] [address] [place] [address] Kitty Dover, MIRTA [address] [place] [address] [place] [address] documented as of this encounter Visit Diagnoses Not on filedocumented in this encounter Care Teams Warehouse Unloader Relationship Specialty Start Date End Date Jasiel Freeman MD [address] [place] [phone] PCP - General Family Practice 08/15/17 documented as of this encounter
--- OUTSIDE RECORDS SUMMARY | 2024-10-24 05:29 | XMS_ITS | Encounter Summary ---
Author Organization [facility] Address [address] [place] [address] Care Team Providers Care Transfer Station Attendant Name Role Phone Jasiel Freeman MD Primary Care Provider Encounter Details Date Type Department Care Team (Late st Contact Info) Description 02/19/2021 Specialty Pharmacy [facility] Specialty and Home Infusion - [address] [place] [address] Thanh Solares, PHARMACIST Social History [...] Progress Notes * Thanh Solares, PHARMACIST - 02/19/2021 11:43 AM CDT Images from the original note were not included. [facility] Specialty & Infusion - [facility] SPECIALTY & INFUSION [facility] [address] [facility], [address] [place] [address] PH: [phone] FX: [phone] Specialty Pharmacy Infusion Note Patient Name: Edgardo [...] changes Patient informed on importance of notifying [facility] Specialty and Infusion immediately if any unexpected insurance changes occur. - yes Authorization good through: 06/15/2021 Delivery: Delivery date: 02/19/2021 How are we shipping the medication? Engraver Copperplate Is it ok to leave? yes Delivery note: infusion changed to 02/22 This assessment performed by: FADI Silverman [facility] SPECIALTY & INFUSION [address], [place] [address] PH: [phone] FX: [phone] Specialty Pharmacy Infusion Note Patient Name: Edgardo Elkins Person Contacted: Edgardo Relation to patient: Patient Call Date: 02/19/2021 Reason for call: ?? [...] changes Patient informed on importance of notifying [facility] Special[facility] and Infusion immediately if any unexpected insurance changes occur. - yes Authorization good through: 01/12/2022 Delivery: Delivery date: 01/26/2021 How are we shipping the medication? crab butcher Is it ok to leave? yes Delivery note: deliver before 12pm This assessment performed by: FADI Silvermany Specialty & Home Infusion [facility] Infusion Order Edgardo Elkins 50 y.o. / male Patient's address (May not be service address): [address] [facility] [address] Order Date: 10/20/2020 Order(s): Continue Entyvio 300mg IV every 4 weeks Per: Caren Whitney MD Generic substitution permitted for medications unless otherwise specified Order taken by Thanh Solares, PHARMACIST [facility] Specialty & Home Infusion [address] [address] Edgardo Elkins 50 y.o. / male Patient's address on file: [address] [address] Home Phone Work Phone Home Infusion Order [...] (through 05/26/19) Per: Caren / KESHA Whitney [facility] Gastroenterology [address], [address] [facility] [phone] Generic substitution permitted Detailed Home Infusion Orders [...] RN will take any ordered labs to [facility] when possible. If labs are not taken to a [facility] lab, it is the responsibility of nursing to make sure labs are faxed to the pharmacy at [phone] Whitney. Catheter Care Catheter type: PIV placed by PEER HEALTH PROMOTER prior to each infusion Flush IV catheter [...] lab draws/line complications. ?? Flushes provided by [facility] Specialty and Infusion pharmacy are for [...] Elkins (50 y.o. male) is active with [facility] Specialty and Infusion services receiving Entyvio every 8 weeks at home for ulcerative colitis. ?? Edgardo is due for his next infusion this week. Pharmacist contacted PEER HEALTH PROMOTER to coordinate delivery. RN will picker feeder today. Patient received last infusion without issue. [...] 08/19/19 - Confirmed with the nurse field case manager that the patient was scheduled [...] [facility] Care Team IV Pharmacy: [facility] Infusion / [phone] Nursing Agency: [facility] Physician(s): Dr. Whitney Additional Relevant Data Insurance Information: Payor: RX [facility] / Plan: RX PCS ADVANCE PARADIGM / Product Type: RX Caremark / IV access PIV placed by PEER HEALTH PROMOTER prior to each infusion Ht Readings from [...] level: Not on file Occupational History Employer: [employer] Employer: [employer] Tobacco Use ??? Smoking status: Former Smoker Packs/day: 0.50 Years: 10.00 Pack years: 5.00 Types: Cigarettes Quit date: 06/09/2011 Years since quittin.7 ??? Smokeless tobacco: Never Used ? ? [...] Gatherings with Friends and Family: ??? Attends Alevism Services: ??? Active Member of Clubs or [...] by intraveous injection see administration instructions. Home PEER HEALTH PROMOTER to administer over 30 minutes every 8 [...] Provided to Patient ?? Pharmacist offer to patent counsel ?? RN instruction ?? Printed teaching sheets ?? Drug information paperwork - EH patient leaflet Thanh Solares PHARMACIST [facility] Specialty & Infusion - [place] [id number] [place] [address] , [address] [place] [address] documented in this encounter Plan of Treatment Upcoming Encounters Date Type Department Care Team (Late st Contact Info) Description 02/13/2025 10:30 AM CDT Office Visit [facility] IBD and Gastroenterology Center [place] [address] [facility] [address] [place] [address] Kitty Dover, MIRTA [address] [facility] [address] [place] [address] documented as of this encounter Visit Diagnoses Not on filedocumented in this encounter Care Teams Transfer Station Attendant Relationship Specialty Start Date End Date Jasiel Freeman MD [address] [place] [phone] PCP - General Family Practice 08/15/17 documented as of this encounter
--- OUTSIDE RECORDS SUMMARY | 2024-10-24 05:29 | XMS_ITS | Encounter Summary ---
Author Organization [facility] Address [address] [place] [address] Care Team Providers Care Turn Down Attendant Name Role Phone Jasiel Freeman MD Primary Care Provider Reason for Visit * Reason Onset Date Comments Home Visit 06/15/2021 Encounter Details Date Type Department Care Team (Late st Contact Info) Description 06/15/2021 Patient Outreach [facility] Specialty and Home Infusion - [address] [place] [address] Irina Waytt, RN Home Visit Social History Tobacco Use [...] Sign Reading Time Taken Comments Blood Pressure 134/72 06/15/2021 3:30 PM CDT Pulse 83 06/15/2021 3:30 PM CDT Temperature 36.4 ??C (97.6 ??F) 06/15/2021 2:45 PM CD T Respiratory Rate 16 06/15/2021 3:30 PM CDT Oxygen Saturation 96% 06/15/2021 3:30 PM CDT Inhaled Oxygen Concentration - - Weight - - Height - - Body Mass Index - - documented in this encounter Miscellaneous Notes * Telephone Encounter - Irina Wyatt RN - 06/16/2021 10:25 AM CDT Images from the original note were not included. [facility] Specialty and Home Infusion Pharmacy Home Infusion NURSING follow up Leonidas Elkins 1970 [address] [facility] [address] Provider - Irina Wyatt RN 06/15/21 Visit start 1430 Visit end 1549 Contact numbers provided including after hours numbers [...] Pt informed on importance of notifying [facility] Specialty Pharmacy immediately if any unexpected insurance changes occur.yes No problem observed with learning needs - No cultural, pentecostalism, or language barriers to learning Patient and [...] normal mood and affect. Pain: 0 1. detention assessment and implementation of infusion therapy. Teaching [...] Patient knows how to reorder medications. [facility] Specialty and Home Infusion Pharmacy will [...] 02/13/2025 10:30 AM CDT Office Visit [facility] IBD and Gastroenterology Center [place] [address] [place] [address] Kitty Dover ANP [address] [place] [address] documented as of this encounter Visit Diagnoses Not on filedocumented in this encounter Care Teams Turn Down Attendant Relationship Specialty Start Date End Date Jasiel Freeman MD [address] [place] [address] PCP - General Family Practice 08/15/17 documented as of this encounter
--- OUTSIDE RECORDS SUMMARY | 2024-10-24 05:29 | XMS_ITS | Encounter Summary ---
Author Organization [facility] Address [address] [place] [address] Care Team Providers Care Truck Crane Operator Helper Name Role Phone Jasiel Freeman MD Primary Care Provider Reason for Visit * Reason Onset Date Comments IV Med 01/28/2021 Called patient f or 48 hour post infusion follow up. Pt reports that they are feeling well, no side effects or adverse events after their infusion. Denies any new symptoms or concerns. Instructed to call if any questions/concerns arise. [facility] and MD contact information. Encounter Details Date Type Department Care Team (Late st Contact Info) Description 01/28/2021 Telephone [facility] Specialty and Home Infusion - [address] [place] [address] Irina Wyatt RN IV Med [...] Description 02/13/2025 10:30 AM CDT Office Visit [facility] IBD and Gastroenterology Center [place] [address] [facility] [address] [place] [phone] Kitty Dover, ANP [address] [place] [address] [place] [address] documented as of this encounter Visit Diagnoses Not on filedocumented in this encounter Care Teams Truck Crane Operator Helper Relationship Specialty Start Date End Date Jasiel Freeman MD [address] [place] [phone] PCP - General Family Practice 08/15/17 documented as of this encounter
--- OUTSIDE RECORDS SUMMARY | 2024-10-24 05:29 | XMS_ITS | Encounter Summary ---
Author Organization [facility] Address [address] [place] [address] Care Team Providers Care Chief Operator Lock Tender Name Role Phone Jasiel Freeman MD Primary Care Provider Encounter Details Date Type Department Care Team (Late st Contact Info) Description 05/14/2021 Specialty Pharmacy [facility] Special[facility] Home [facility]fusion - [address] [place] [address] Thanh Solares, PHARMACIST Social History [...] Progress Notes * Thanh Solares, PHARMACIST - 05/14/2021 9:56 AM CDT Images from the original note were not included. [facility] Specialty & Infusion - [facility]ION [facility] [address] [facility], [address] [place] [address] PH: [phone] FX: [phone] Specialty Pharmacy Infusion Note Patient Name: Edgardo [...] n/a Patient informed on importance of notifying [facility] Specialty and Infusion immediately if any unexpected insurance changes occur. - n/a Authorization good through: 06/15/2021 Delivery: Delivery date: 05/17/2021 How are we shipping the medication? brown stock washer Is it ok to leave? yes Delivery note: This assessment performed by: Thanh Solares, PHARMACIST [facility] [place] [address] PH: [phone] FX: [phone] Specialty Pharmacy Infusion Note Patient Name: Edgardo [...] n/a Patient informed on importance of notifying [facility]fusion immediately if any unexpected insurance changes occur. - n/a Authorization good through: 06/15/2021 Delivery: Delivery date: 04/16/2021 How are we shipping the medication? brown stock washer Is it ok to leave? yes Delivery note: This assessment performed by: Thanh Solares, PHARMACIST [facility] [address], [address] [address] PH: [phone] FX: [phone] Specialty Pharmacy Infusion Note Patient Name: Edgardo [...] changes Patient informed on importance of notifying [facility]fusion immediately if any unexpected insurance changes occur. - yes Authorization good through: 06/15/2021 Delivery: Delivery date: 02/19/2021 How are we shipping the medication? Project Surveyor Is it ok to leave? yes Delivery note: infusion changed to 02/22 This assessment performed by: FADI [facility]man [facility] [id number] [place] [address], [address] [address] PH: [phone] FX: [phone] Specialty Pharmacy Infusion Note Patient Name: Edgardo [...] changes Patient informed on importance of notifying [facility] immediately if any unexpected insurance changes occur. - yes Authorization good through: 01/12/2022 Delivery: Delivery date: 01/26/2021 How are we shipping the medication? brown stock washer Is it ok to leave? yes Delivery note: deliver before 12pm This assessment performed by: [facility] Home Infusion Order Edgardo Elkins 50 y.o. / male Patient's address (May not be service address): [address] [facility] [address] Order Date: 10/20/2020 Order(s): Continue Entyvio 300mg IV every 4 weeks Per: Caren Whitney MD Generic substitution permitted for medications unless otherwise specified Order taken by FADI Silverman [facility] Specialty & Home Infusion [facility] [address] [place] [address] Edgardo Palomino Thyer 50 y.o. / male Patient's address on file: [address] [facility] [address] Home Phone Work Phone Home Infusion Order [...] (through 05/26/19) Per: Caren / KESHA Whitney [facility] Gastroenterology [address], [address] [facility] [address] Generic substitution permitted Detailed Home Infusion [...] RN will take any ordered labs to [facility] when possible. If labs are not taken to a [facility] lab, it is the responsibility of nursing to make sure labs are faxed to the pharmacy at [phone] Whitney. Catheter Care Catheter type: PIV placed by STAFFING DIRECTOR prior to each infusion Flush IV catheter [...] lab draws/line complications. ?? Flushes provided by [facility] Specialty and Infusion pharmacy are for [...] Elkins (50 y.o. male) is active with [facility] Specialty and Infusion services receiving Entyvio every 8 weeks at home for ulcerative colitis. ?? Edgardo is due for his next infusion this week. Pharmacist contacted STAFFING DIRECTOR to coordinate delivery. RN will seed cone picker today. Patient received last infusion without [...] RDS 08/19/19 - Confirmed with the nurse briefcase sewer that the patient was scheduled to receive [...] - Week 2 12/28/17 - Week 6 5/2/18 - Begin maintenance dose every 8 weeks 11/26/18 - Approved x [address] Whitney Home Infusion [facility] [phone] Nursing Agency: [facility] Physician(s): Dr. Whitney Additional Relevant Data Insurance Information: Payor: RX [facility] / Plan: RX [employer] ADVANCE PARADIGM / Product Type: RX [employer] / IV access PIV placed by STAFFING DIRECTOR prior to each infusion Ht Readings from [...] level: Not on file Occupational History Employer: [employer] Employer: [employer] Tobacco Use ??? Smoking status: Former Smoker Packs/day: 0.50 Years: 10.00 Pack years: 5.00 Types: Cigarettes Quit date: 06/09/2011 Years since quittin.9 ??? Smokeless tobacco: Never Used ? ? [...] Gatherings with Friends and Family: ??? Attends Sabianist Services: ??? Active Member of Clubs or [...] by intraveous injection see administration instructions. Home STAFFING DIRECTOR to administer over 30 minutes every 8 [...] Provided to Patient ?? Pharmacist offer to primary substance abuse counselor ?? RN instruction ?? Printed teaching sheets ?? Drug information paperwork - [facility] patient leaflet Thanh Solares PHARMACIST [facility] Specialty & Infusion - [place] [id number] [place] [address] , [address] [place] [address] documented in this encounter Plan of Treatment Upcoming Encounters Date Type Department Care Team (Late st Contact Info) Description 02/13/2025 10:30 AM CDT Office Visit [facility] IBD and Gastroenterology Center [place] [address] [facility] [address] [place] [address] Kitty Dover ANP [address] [facility] [address] [place] [address] documented as of this encounter Visit Diagnoses Not on filedocumented in this encounter Care Teams Chief Operator Lock Tender Relationship Specialty Start Date End Date Jasiel Freeman MD [address] [place] [phone] PCP - General Family Practice 08/15/17 documented as of this encounter
--- OUTSIDE RECORDS SUMMARY | 2024-10-24 05:29 | XMS_ITS | Encounter Summary ---
Author Organization [facility] Address [address] [place] [address] Care Team Providers Care Electric Hoist Operator Name Role Phone Jasiel Freeman MD Primary Care Provider Reason for Visit * Reason Onset Date Comments Home Visit 11/16/2021 Encounter Details Date Type Department Care Team (Late st Contact Info) Description 11/16/2021 Patient Outreach [facility] Specialty and Home Infusion - [address] [place] [address] Irina Wyatt, RN Home Visit [...] Sign Reading Time Taken Comments Blood Pressure 124/82 11/16/2021 2:15 PM OVERSEAMER Pulse 94 11/16/2021 2:15 PM OVERSEAMER Temperature 37.2 ??C (99 ??F) 11/16/2021 2:15 PM OVERSEAMER Respiratory Rate 16 11/16/2021 2:15 PM OVERSEAMER Oxygen Saturation 93% 11/16/2021 2:15 PM OVERSEAMER Inhaled Oxygen Concentration - - Weight - - Height - - Body Mass Index - - documented in this encounter Miscellaneous Notes * Telephone Encounter - Irina Wyatt RN - 11/17/2021 6:39 PM CST Images from the original note were not included. [facility] Specialty and Home Infusion Pharmacy Home Infusion NURSING follow up Tamekaraad Edgardo Palomino Brittni 1970 [address] [facility] [address] Provider - Irina Wyatt RN 11/16/21 Visit start 1405 Visit end 1505 Contact numbers provided including after hours numbers [...] yes Pt informed on importance of notifying [facility] Specialty Pharmacy immediately if any unexpected [...] normal mood and affect. Pain: 0 1. [facility] assessment and implementation of infusion therapy. Teaching of patient/caregiverrole in infusion therapy. Goal : Infusion therapy will be delivered per physicians orders. Infusion access will remain patent. Patient and caregiver will demonstrate an understanding of teaching and learning goals related to infusion therapy. Intervention : 24gauge PIV placed to left fa without difficulty. Flushed PIV with 10 ml NS easily with positive blood return. Entyvio vial (300 mg) reconstituted with 4.8 ml sterile water and swirledfor 15 seconds. When clear, reconstituted med added to 250 ml NS. Base line vital signs checked. Infusion completed in 30 min. 30 ml ns used to flush remainder of Entyvio thru line. PIV DC'd, bandaidapplied. 2. Management of home medication. Goal: Patient/caregiver will verbalized understanding of medication regime. Intervention: Patient manages all medications except Entyvio. Patient takes medication as ordered, knows purpose, basic side effects, and adverse reactions. Patient knows how to reorder medications. [facility] Specialty and Home Infusion Pharmacy will [...] in approximately 4 weeks for Entyvio infusion SEAMER documented in this encounter Plan of Treatment Upcoming Encounters Date Type Department Care Team (Late st Contact Info) Description 02/13/2025 10:30 AM CDT Office Visit [facility] IBD and Gastroenterology Center [place] [address] [place] [phone] Kitty Dover ANP [address] [place] [address] documented as of this encounter Visit Diagnoses Not on filedocumented in this encounter Care Teams Electric Hoist Operator Relationship Specialty Start Date End Date Jasiel Freeman MD [address] [place] [phone] PCP - General Family Practice 08/15/17 documented as of this encounter
--- OUTSIDE RECORDS SUMMARY | 2024-10-24 05:29 | XMS_ITS | Encounter Summary ---
Author Organization [facility] Address [address] [place] [address] Care Team Providers Care Captain Waiter Name Role Phone Jasiel Freeman MD Primary Care Provider [phone] Encounter Details Date Type Department Care Team (Late st Contact Info) Description 01/05/2021 Abstract [facility] Gastroenterology [facility] [address] [facility] [address] [place] [address] Provider, Abstract NO ADDRESS ON FILE Social [...] 10:30 AM CDT Office Visit [facility]ology [facility] [place] [address] [place] [address] Kitty Dover, MIRTA [address] [place] [address] documented as of this encounter Visit Diagnoses Not on filedocumented in this encounter Care Teams Captain Waiter Relationship Specialty Start Date End Date Jasiel Freeman MD [address] [place] [address] PCP - General Family Practice 08/15/17 documented as of this encounter
--- OUTSIDE RECORDS SUMMARY | 2024-10-24 05:29 | XMS_ITS | Encounter Summary ---
Author Organization [facility] Address [address] [place] [address] Care Team Providers Care Bonding Supervisor Name Role Phone Jasiel Freeman MD Primary Care Provider Encounter Details Date Type Department Care Team (Late st Contact Info) Description 03/07/2022 Specialty Pharmacy [facility] Specialty and Home Infusion - [address] [place] [address] Thanh Solares, PHARMACIST Social History [...] Progress Notes * Thanh Solares, PHARMACIST - 03/07/2022 9:40 AM CDT [facility] Patient Name: Edgardo Elkins Home Infusion Orders Medication: Entyvio 300mg IV every 4 weeks Treating Diagnosis: Ulcerative colitis Method of administration: IV infusion Equipment: n/a Prescriber(s): Annette Whitney MD Therapy Start Date: 08/08/2019 Anticipated Therapy End Date: Ongoing Vascular Access Device (VAD) Orders ??? Type of VAD: PIV ??? NS 10 mL: 10 mL before and after each dose and as needed for lab draws/line complications ??? Heparin 10 u/mL, 5 mL: 5 mL after each dose and as needed for lab draws/line complications ??? Cathflo (Alteplase) 2 mg IV x 1 for each occluded lumen as needed, may repeat x1. Dispense up to 2 doses. Refill PRN. Administer per package insert. ??? In the event that the IV catheter becomes non-functional, the RN may place a peripheral IV catheter after determining with the pharmacist that peripheral administration is appropriate. The peripheral line will be flushed pre and post infusion and PRN with 10 mL sodium chloride 0.9%. Administer 5 mL heparin 10 u/mL post infusion. ??? Pharmacy to dispense flushes, catheter supplies and all medically necessary infusion supplies until catheter is removed. Lab orders: No labs needed Nursing Provided by [facility] Specialty and Infusion Therapy Specific Pertinent Health Information / DUR ??? Recent changes to Medical History, Allergies, Medical Conditions? No ??? A full medication reconciliation has been completed for all medications that patient is receiving? Yes ??? Any new Medications (including OTCs and Herbals)? No ??? Any reported Adverse Reactions or Side Effects to Medication(s)? No ??? Recent changes to dose, frequency, or form of medication since last dispense? No ??? Pharmacist conducted Drug Utilization Review (DUR)? Yes ??? Any lab values of note since last dispense? No Note: Pharmacy Information ??? Adherence issues (reported or suspected)?: No ??? Administration issues?: No ??? Patient is receiving therapeutic benefits from therapy?: Yes ??? Any questions/concerns for the pharmacist?: No ??? Patient to continue with the current therapy?: Yes Note: Patient Assessment/Counselling ??? Upon initiating home infusion therapy, the patient/caregiver received education, counseling, and/or resources to promote adherence to therapy: Yes ??? The patient/caregiver knows how to properly use and store the medication: Yes ??? The patient is free of any functional limitations that would prevent them from reading any of the information provided: Yes ??? The patient is not considered to be an ???at risk?? patient, have high risk comorbidities orrequire additional assistance: Yes Note: Dispensing Coordination ??? Any changes to prescription/medical insurance or copay assistance? No ??? Patient requires delivery to cover through 03/08/2022 ??? Pharmacy to send Entyvio + IV supplies ??? Permission to leave delivered package? Yes ??? Delivery Instructions: Left message on pt recorder, confirmed infusion date w/RN Note: General ??? Information for this assessment provided by [facility] ??? HIPAA contact identified: Yes ??? Note: ?Welcome Packet?? been provided to the patient Yes ??? Note: Provided with initial delivery / via [facility] Additional Notes ??? Pharmacy communicated/coordinated with MD angle shear operator? Yes ??? Follow up notes for next encounter? Yes Note: Pharmacy Plan of Care Pharmacist Professional Services ??? 15/05 support ??? Therapy evaluation, design, and preparation ensuring compatibility with VAD, external infusion pump and supplies, patient ability and therapy goals ??? Review, develop and modify the monitoring plan ??? Perform medication review for all drug interactions, contraindications and therapy duplication ??? Provide education for home infusion medication side effects, interactions, adverse reactions, and infusion related reactions ??? Remote monitoring for response to therapy, side effects, administration- related reactions, VAD events Patient Care, Instruction, Monitoring and Assessments ??? Review of patient medical history - Initial and ongoing ??? Physical, mental, and environmental assessment - Initial and ongoing ??? Infection control, hand hygiene, VAD and self-care - Initial and ongoing ??? VAD evaluation, care, and maintenance - Initial and ongoing ??? Medication administration, safe handling, and monitoring - Initial and ongoing ??? Response and adherence to treatment - Initial and ongoing ??? Monitoring for drug adverse events - Initial and ongoing ??? Lab draws - As ordered by physician Additional Needs Functional limitations: none identified Special dietary or nutritional needs: none identified Safety concerns: none identified Intervention(s): ??? Based on therapy Goals ??? Resolution of primary problem ??? Prevent VAD associated complications ??? Administration of therapy free of complications ??? Prevention of adverse drug events documented in this encounter Plan of Treatment Upcoming Encounters Date Type Department Care Team (Late st Contact Info) Description 02/13/2025 10:30 AM CDT Office Visit [facility] IBD and Gastro[facility]ology [facility] [place] [address] [place] [address] Kitty Dover, MIRTA [address] [place] [address] documented as of this encounter Visit Diagnoses Not on filedocumented in this encounter Care Teams Bonding Supervisor Relationship Specialty Start Date End Date Jasiel Freeman MD [address] [place] [phone] PCP - General Family Practice 08/15/17 documented as of this encounter
--- OUTSIDE RECORDS SUMMARY | 2024-10-24 05:29 | XMS_ITS | Encounter Summary ---
Author Organization [facility] Address [address] [place] [address] Care Team Providers Care Tipping Machine Operator Automatic Name Role Phone Jasiel Freeman MD Primary Care Provider Encounter Details Date Type Department Care Team (Late st Contact Info) Description 02/04/2022 Specialty Pharmacy [facility] - [address] [place] [address] Thanh Solares, PHARMACIST Social History [...] Progress Notes * Thanh Solares, PHARMACIST - 02/04/2022 8:34 AM CDT Images from the original note were not included. [facility] - [facility] SPECIALTY & INFUSION [facility] [address] [address] [facility], [address] [place] [address] PH: [phone] FX: [phone] Specialty Pharmacy Infusion Note Patient Name: Edgardo Elkins Person Contacted: Called patient - no answer Relation to patient: left message Call Date: 02/04/2022 Reason for call: ?? Check the patient's [...] Patient informed on importance of notifying [facility] immediately if any unexpected insurance changes occur. - yes Authorization good through: 06/15/2022 Delivery: Delivery date: 02/07/2022 How are we shipping the medication? Pharmacy Grad Intern Is it ok to leave? yes Delivery note: This assessment performed by: FADI Silverman [facility] SPECIALTY & INFUSION [place] [id number] PH: [phone] FX: [phone] Specialty Pharmacy Infusion Note Patient Name: Edgardo [...] Patient informed on importance of notifying [facility] immediately if any unexpected insurance changes occur. - yes Authorization good through: 06/15/2022 Delivery: Delivery date: 12/13/2021 How are we shipping the medication? Pharmacy Grad Intern Is it ok to leave? yes Delivery note: This assessment performed by: FADI Silverman [facility] [address] [address] PH: [phone] FX: [phone] Specialty Pharmacy Infusion Note Patient Name: Edgardo [...] Patient informed on importance of notifying [facility] immediately if any unexpected insurance changes occur. - yes Authorization good through: 06/15/2022 Delivery: Delivery date: 11/15/2021 How are we shipping the medication? Pharmacy Grad Intern Is it ok to leave? yes Delivery note: This assessment performed by: Thanh Solares, PHARMACIST [facility] SPECIAL[facility] INFUSION [address], [address] [address] PH: [phone] FX: [phone] Specialty Pharmacy Infusion Note Patient Name: Edgardo [...] Patient informed on importance of notifying [facility] immediately if any unexpected insurance changes occur. - yes Authorization good through: 06/15/2022 Delivery: Delivery date: 10/13/2021 How are we shipping the medication? Pharmacy Grad Intern Is it ok to leave? yes Delivery note: This assessment performed by: Thanh Solares, PHARMACIST [facility] [address] [facility], [address] [address] PH: [phone] FX: [phone] Specialty Pharmacy Infusion Note Patient Name: Edgardo [...] 09/13/2021 How are we shipping the medication? Pharmacy Grad Intern Is it ok to leave? yes Delivery note: This assessment performed by: Thanh Solares, PHARMACIST [facility] [address] [facility], [address] [address] PH: [phone] FX: [phone] Specialty Pharmacy Infusion Note Patient Name: Edgardo [...] 08/09/2021 How are we shipping the medication? Pharmacy Grad Intern Is it ok to leave? yes Delivery note: This assessment performed by: Thanh Solares, PHARMACIST [facility] [address] [address] PH: [phone] FX: [phone] Specialty Pharmacy Infusion Note Patient Name: Edgardo [...] unexpected insurance changes occur. - n/a Authorization [facility] through: 06/15/2022 Delivery: Delivery date: 07/12/2021 How are we shipping the medication? industrial design engineer Is it ok to leave? yes Delivery note: This assessment performed by: Thanh Solares, PHARMACIST [facility] SPECIAL[facility] INFUSION [address] [address] PH: [phone] FX: [phone] Specialty Pharmacy Infusion Note Patient Name: Edgardo [...] 06/14/2021 How are we shipping the medication? industrial design engineer Is it ok to leave? yes Delivery note: This assessment performed by: Thanh Solares, PHARMACIST [facility] SPECIALTY & INFUSION [facility] [address] [place] [address], [place] [id number] PH: [phone] FX: [phone] Specialty Pharmacy Infusion Note Patient Name: Edgardo [...] n/a Patient informed on importance of notifying [facility] Specialty and Infusion immediately if any unexpected insurance changes occur. - n/a Authorization good through: 06/15/2021 Delivery: Delivery date: 05/17/2021 How are we shipping the medication? industrial design engineer Is it ok to leave? yes Delivery note: This assessment performed by: Thanh Solares, PHARMACIST [facility] SPECIALTY [facility] INFUSION [facility] [id number] [place] [address], [address] [address] PH: [phone] FX: [phone] Specialty Pharmacy Infusion Note Patient Name: Edgardo [...] 04/16/2021 How are we shipping the medication? industrial design engineer Is it ok to leave? yes Delivery note: This assessment performed by: Thanh Solares, PHARMACIST [facility] SPECIALTY & INFUSION [place] [id number] PH: [phone] FX: [phone] Specialty Pharmacy Infusion Note Patient Name: Edgardo [...] 02/19/2021 How are we shipping the medication? Pharmacy Grad Intern Is it ok to leave? yes Delivery note: infusion changed to 5/3 This assessment performed by: FADI Silverman [facility] SPECIAL[facility] INFUSION [address], [address] [address] PH: [phone] FX: [phone] Specialty Pharmacy Infusion Note Patient Name: Edgardo [...] Patient informed on importance of notifying [facility] immediately if any unexpected insurance changes occur. - yes Authorization good through: 01/12/2022 Delivery: Delivery date: 01/26/2021 How are we shipping the medication? industrial design engineer Is it ok to leave? yes Delivery note: deliver before 12pm This assessment performed by: FADI Silverman [facility] Specialty & Home Infusion [facility] Home Infusion Order Edgardo Elkins 51 y.o. / male Patient's address (May not be service address): [address] [place] [address] Order Date: 08/06/2021 Order(s): VEDOLIZUMAB( ENTYVIO) STANDING [...] otherwise specified Order taken by FADI Silverman [facility] Specialty & Home Infusion [address] [address] [facility] Specialty & Home Infusion [facility] Home Infusion Order Edgardo Elkins 51 y.o. / male Patient's address (May not be service address): [address] [facility] [address] Order Date: 07/08/2021 Order(s): VEDOLIZUMAB( ENTYVIO) STANDING [...] mcg injection IM, monthly: ??No Per: JIE aBsilio Dr. Generic substitution permitted for medications unless otherwise specified Order taken by Thanh Solares, PHARMACIST [facility] Specialty [facility] Home Infusion [address] [address] [facility] Specialty & Home Infusion [facility] Home Infusion Order Edgardo Elkins 51 y.o. / male Patient's address (May not be service address): [address] [facility] [address] [address] Order Date: 10/20/2020 Order(s): Continue Entyvio 300mg IV every 4 weeks Per: Caren Whitney MD Generic substitution permitted for medications unless otherwise specified Order taken by Thanh Solares PHARMACIST [facility] Specialty & Home Infusion [facility] [address] [place] [address] Edgardo Palomino Thyer 51 y.o. / male Patient's address on file: [address] [address] Home Phone Work Phone Home Infusion Order [...] (through 05/26/19) Per: Caren / KESHA Whitney [facility] Gastroenterology [address], [address] [facility] [address] Generic substitution permitted Detailed Home [...] RN will take any ordered labs to [facility] when possible. If labs are not taken to a [facility] lab, it is the responsibility of nursing to make sure labs are faxed to the pharmacy at [phone] Whitney. Catheter Care Catheter type: PIV placed by PARKER prior to each infusion Flush IV catheter [...] lab draws/line complications. ?? Flushes provided by [facility] Specialty and Infusion pharmacy are for [...] Elkins (51 y.o. male) is active with [facility] Specialty and Infusion services receiving Entyvio every 8 weeks at home for ulcerative colitis. ?? Edgardo is due for his next infusion this week. Pharmacist contacted PARKER to coordinate delivery. RN will lease picker today. Patient received last infusion without issue. No questions or concerns at this time. Patient has appointment with Dr. Nair on 01/29. 05/13/19 - Spoke with the patient who stated he is doing well. He has had no changes in his medication therapy or no clinical issues. Will ship medications and supplies to the patient. Thanh Solares MBA, [facility] 08/08/19 - Patient to receive infusion of Entyvio today after an insurance issue. Will send medications and supplies for the infusion. RDS 08/19/19 - Confirmed with the nurse case monitor that the patient was scheduled to receive [...] - Begin maintenance dose every 8 weeks 2/4/19 - Approved x [address] Whitney Home Infusion [facility] [phone] Nursing Agency: [facility] Physician(s): Dr. Whitney Additional Relevant Data Insurance Information: Payor: RX [facility] / Plan: RX [employer] ADVANCE PARADIGM / Product Type: RX [employer] / IV access PIV placed by PARKER prior to each infusion Ht Readings from [...] level: Not on file Occupational History Employer: [employer] Employer: [employer] Tobacco Use ??? Smoking status: Former Smoker Packs/day: 0.50 Years: 10.00 Pack years: 5.00 Types: Cigarettes Quit date: 06/09/2011 Years since quittin.6 ??? Smokeless tobacco: Never Used ? ? [...] TIMES A DAY, Disp: 360 Capsule, Rfl: 1 ??? water sterile Solution, 4.8 mL by [...] by intraveous injection see administration instructions. Home PARKER to administer over 30 minutes every 8 [...] Provided to Patient ?? Pharmacist offer to probation counselor ?? RN instruction ?? Printed teaching sheets ?? Drug information paperwork - EH patient leaflet FADI Silverman [facility] [place] [address] [address] , [address] [place] [address] documented in this encounter Plan of Treatment Upcoming Encounters Date Type Department Care Team (Late st Contact Info) Description 02/13/2025 10:30 AM CDT Office Visit [facility] IBD and Gastroenterology Center [place] [address] [place] [address] Kitty Dover ANP [address] [place] [place] [address] documented as of this encounter Visit Diagnoses Not on filedocumented in this encounter Care Teams Tipping Machine Operator Automatic Relationship Specialty Start Date End Date Jasiel Freeman MD [address] [place] [phone] PCP - General Family Practice 08/15/17 documented as of this encounter
--- OUTSIDE RECORDS SUMMARY | 2024-10-24 05:29 | XMS_ITS | Encounter Summary ---
Author Organization [facility] Address [address] [place] [address] Care Team Providers Care Driller Machine Name Role Phone Jasiel Freeman MD Primary Care Provider Encounter Details Date Type Department Care Team (Late st Contact Info) Description 05/16/2022 Specialty Pharmacy [facility] Specialty and Home Infusion - [address] [place] [address] Belen Matt PHARMACIST Social History [...] Progress Notes * Belen Matt PHARMACIST - 05/16/2022 10:11 AM CDT [facility] Specialty & Home Infusion Patient [...] orders: No labs needed Nursing Provided by [facility] and Infusion Therapy Specific Entyvio (vedolizumab) The most common infusion reactions of Entyvio include: ??? Common cold ??? Headache ??? Joint pain ??? Nausea ??? Fever ??? Infections of the nose and throat ??? Tiredness ??? Cough ??? Bronchitis ??? Flu ??? Back pain ??? Rash ??? Itching ??? Sinus infection ??? Throat pain ??? Pain in extremities Note: PEST CONTROL CHEMICAL TECHNICIAN to observe patient during infusion and monitor for hypersensitivity reaction. Pertinent Health Information / DUR ??? Recent [...] last negative TB test 07/29/21 Pharmacy Information ??? Adherence issues (reported or [...] risk comorbidities orrequire additional assistance: Yes Note: unable to complete therapy assessment with patient verbally, LVM 05/16/22 Dispensing Coordination ??? Any changes to prescription/medical insurance or copay assistance? No ??? Patient requires delivery to cover through 05/17/2022 ??? Pharmacy to send Entyvio + IV supplies ??? Permission to leave delivered package? Delivery Instructions: RN Irina to coal picker Entyvio + supplies from pharmacy 05/16/22 Note: General ??? Information for this assessment provided by [facility] ??? HIPAA contact identified: Yes ??? Note: ?Welcome Packet?? been provided to the patient Yes ??? Note: Provided with initial delivery / via [facility] Additional Notes ??? Pharmacy communicated/coordinated with MD advertising editor? Yes ??? Follow up notes for next [...] 02/13/2025 10:30 AM CDT Office Visit [facility] IBD and Gastroenterology Center [place] [address] [facility] [address] [place] [address] Kitty Dover ANP [address] [facility] [address] [place] [address] documented as of this encounter Visit Diagnoses Not on filedocumented in this encounter Care Teams Driller Machine Relationship Specialty Start Date End Date Jasiel Freeman MD [address] [place] [phone] PCP - General Family Practice 08/15/17 documented as of this encounter
--- OUTSIDE RECORDS SUMMARY | 2024-10-24 05:29 | XMS_ITS | Encounter Summary ---
Author Organization [facility] Address [address] [place] [address] Care Team Providers Care Editorial Project Manager Name Role Phone Jasiel Freeman MD Primary Care Provider Encounter Details Date Type Department Care Team (Late st Contact Info) Description 04/08/2022 Specialty Pharmacy [facility] Specialty and Home Infusion - [address] [place] [address] Thanh Solares, PHARMACIST Social History [...] Progress Notes * Thanh Solares, PHARMACIST - 04/08/2022 4:46 PM CDT [facility] Patient Name: [...] orders: No labs needed Nursing Provided by [facility] Specialty and Infusion Therapy Specific Pertinent Health [...] ??? Patient requires delivery to cover through 04/12/2022 ??? Pharmacy to send Entyvio + IV supplies ??? Permission to leave delivered package? Yes ??? Delivery Instructions: Left message on pt recorder, Deliver on 04/11/2022 Note: General ??? Information for this assessment [facility] by [facility] ??? HIPAA contact identified: Yes ??? Note: ?Welcome Packet?? been provided to the patient Yes ??? Note: Provided with initial delivery / via [facility] Additional Notes ??? Pharmacy communicated/coordinated with MD it service continuity supervisor? Yes ??? Follow up notes for next [...] 10:30 AM CDT Office Visit [facility] IBD and Gastroenterology Center [place] [address] [place] [phone] Kitty Dover, MIRTA [address] [place] [address] documented as of this encounter Visit Diagnoses Not on filedocumented in this encounter Care Teams Editorial Project Manager Relationship Specialty Start Date End Date Jasiel Freeman MD [address] [place] [phone] PCP - General Family Practice 08/15/17 documented as of this encounter
--- OUTSIDE RECORDS SUMMARY | 2024-10-24 05:29 | XMS_ITS | Encounter Summary ---
Author Organization [facility] Address [address] [place] [address] Care Team Providers Care Web Production Artist Name Role Phone Jasiel Freeman MD Primary Care Provider Encounter Details Date Type Department Care Team (Late st Contact Info) Description 07/06/2021 Abstract [facility] Gastroenterology [place] [address] [address] Sondra Lowry Social History Tobacco Use [...] as of this encounter Progress Notes * Sondra Lowry - 07/06/2021 1:30 PM CDT Should the patient come in the office first? documented in this encounter Plan of Treatment Upcoming Encounters Date Type Department Care Team (Late st Contact Info) Description 02/13/2025 10:30 AM CDT Office Visit [facility] IBD and Gastroenterology Center [place] [address] [place] [address] Kitty Dover ANP [address] [place] [address] documented as of this encounter Visit Diagnoses Not on filedocumented in this encounter Care Teams Web Production Artist Relationship Specialty Start Date End Date Jasiel Freeman MD [address] [place] [phone] PCP - General Family Practice 08/15/17 documented as of this encounter
--- OUTSIDE RECORDS SUMMARY | 2024-10-24 05:29 | XMS_ITS | Encounter Summary ---
Author Organization [facility] Address [address] [place] [address] Care Team Providers Care Director Of Restaurants Name Role Phone Jasiel Freeman MD Primary Care Provider Reason for Visit * Reason Comments Medication Refill Encounter Details Date Type Department Care Team (Late st Contact Info) Description 12/20/2021 Refill [facility] Gastroenterology [facility] [address] [facility] [address] [place] [address] Annette Whitney MD [address] [facility] [address] [place] [address] Social History Tobacco Use Types Packs/Day Years [...] encounter Miscellaneous Notes * Telephone Encounter - Denia Smart - 12/20/2021 2:48 PM CST Requested bentyal last filled 12/06/21 last ov 08/02/21 next ov 02/01/22 please advise SPECIALIST documented in this encounter Plan of Treatment Upcoming Encounters Date Type Department Care Team (Late st Contact Info) Description 02/13/2025 10:30 AM CDT Office Visit [facility] IBD and Gastroenterology Center [place] [address] [place] [address] Kitty Dover, MIRTA [address] [place] [address] [place] [address] documented as of this encounter Visit Diagnoses Not on filedocumented in this encounter Care Teams Director Of Restaurants Relationship Specialty Start Date End Date Jasiel Freeman MD [address] [place] [phone] PCP - General Family Practice 08/15/17 documented as of this encounter
--- OUTSIDE RECORDS SUMMARY | 2024-10-24 05:29 | XMS_ITS | Encounter Summary ---
Author Organization [facility] Address [address] [place] [address] Care Team Providers Care Lifestyle Coordinator Name Role Phone Jasiel Freeman MD Primary Care Provider Reason for Visit * Reason Onset Date Comments Home Visit 01/11/2022 Encounter Details Date Type Department Care Team (Late st Contact Info) Description 01/11/2022 Patient Outreach [facility] Specialty and Home Infusion - [address] [place] [address] Irina Wyatt, RN Home Visit [...] Sign Reading Time Taken Comments Blood Pressure 144/88 01/11/2022 2:00 PM CDT Pulse 90 01/11/2022 2:00 PM CDT Temperature 36.5 ??C (97.7 ??F) 01/11/2022 2:00 PM CD T Respiratory Rate 16 01/11/2022 2:00 PM CDT Oxygen Saturation 97% 01/11/2022 2:00 PM CDT Inhaled Oxygen Concentration - - Weight - - Height - - Body Mass Index - - documented in this encounter Miscellaneous Notes * Telephone Encounter - Irina Wyatt RN - 01/13/2022 9:49 PM CDT Images from the original note were not included. [facility] Specialty and Home Infusion Pharmacy Home Infusion NURSING follow up Leonidas Elkins 1970 [address] [facility] [address] Provider - Irina Wyatt RN 01/11/22 Visit start 1345 Visit end 1445 Contact numbers provided including [...] yes Pt informed on importance of notifying [facility] immediately if any unexpected insurance changes occur.yes No problem observed with learning needs - No cultural, oriental orthodox, or language barriers to learning Patient and [...] normal mood and affect. Pain: 0 1. half-way assessment and implementation of infusion therapy. Teaching [...] reactions. Patient knows how to reorder medications. [facility] Specialty and Home Infusion Pharmacy [...] Description 02/13/2025 10:30 AM CDT Office Visit [facility] IBD and Gastroenterology Center [place] [address] [place] [phone] Kitty Dover ANP [address] [place] [address] documented as of this encounter Visit Diagnoses Not on filedocumented in this encounter Care Teams Lifestyle Coordinator Relationship Specialty Start Date End Date Jasiel Freeman MD [address] [place] [address] PCP - General Family Practice 08/15/17 documented as of this encounter
--- OUTSIDE RECORDS SUMMARY | 2024-10-24 05:29 | XMS_ITS | Encounter Summary ---
Author Organization [facility] Address [address] [place] [address] Care Team Providers Care Evaluation Manager Name Role Phone Jasiel Freeman MD Primary Care Provider Reason for Visit * Reason Onset Date Comments Home Visit 05/17/2022 Encounter Details Date Type Department Care Team (Late st Contact Info) Description 05/17/2022 Patient Outreach [facility] Specialty and Home Infusion - [address] [place] [address] Irina Wyatt, RN Home Visit [...] Taken Comments Blood Pressure - - Pulse 90 05/17/2022 3:00 PM CDT Temperature 37.2 ??C (99 ??F) 05/17/2022 3:00 PM CDT Respiratory Rate 16 05/17/2022 3:00 PM CDT Oxygen Saturation 94% 05/17/2022 3:00 PM CDT Inhaled Oxygen Concentration - - Weight - - Height - - Body Mass Index - - documented in this encounter Miscellaneous Notes * Telephone Encounter - Irina Wyatt RN - 05/17/2022 5:53 PM CDT Images from the original note were not included. [facility] Home Infusion NURSING follow up [place] Edgardo Palomino Brittni 1970 [address] [facility] [address] Provider - Irina Wyatt RN 05/17/2022 Visit start 1230 Visit end 1345 Contact numbers provided including after hours numbers [...] Yes Pt informed on importance of notifying [facility] immediately if any unexpected [...] reactions. Patient knows how to reorder medications. [facility] Specialty and Home Infusion Pharmacy will [...] Description 02/13/2025 10:30 AM CDT Office Visit [facility] IBD and Gastroenterology Center [place] [address] [place] [phone] Kitty Dover ANP [address] [place] [address] documented as of this encounter Visit Diagnoses Not on filedocumented in this encounter Care Teams Evaluation Manager Relationship Specialty Start Date End Date Jasiel Freeman MD [address] [place] [phone] PCP - General Family Practice 08/15/17 documented as of this encounter
--- OUTSIDE RECORDS SUMMARY | 2024-10-24 05:29 | XMS_ITS | Encounter Summary ---
Author Organization [facility] Address [address] [place] [address] Care Team Providers Care Client Associate Name Role Phone Jasiel Freeman MD Primary Care Provider Reason for Visit * Reason Onset Date Comments Home Visit 05/18/2021 Encounter Details Date Type Department Care Team (Late st Contact Info) Description 05/18/2021 Patient Outreach [facility] - [address] [place] [address] Irina Wyatt, RN Home Visit [...] Sign Reading Time Taken Comments Blood Pressure 134/82 05/19/2021 3:30 PM CDT Pulse 80 05/19/2021 3:30 PM CDT Temperature 36.7 ??C (98 ??F) 05/18/2021 2:40 PM CDT Respiratory Rate 16 05/19/2021 3:30 PM CDT Oxygen Saturation 94% 05/19/2021 3:30 PM CDT Inhaled Oxygen Concentration - - Weight - - Height - - Body Mass Index - - documented in this encounter Miscellaneous Notes * Telephone Encounter - Irina Wyatt RN - 05/18/2021 10:41 AM CDT Images from the original note were not included. [facility] [address] [facility] [place], [facility] [place] [facility] [address] Home Infusion NURSING follow up Leonidas Elkins 1970 [address] [facility] [address] Provider - Irina Wyatt RN 05/18/2021 Visit start 1430 Visit end 1540 Contact numbers provided including after hours numbers [...] yes Pt informed on importance of notifying [facility] immediately if any unexpected insurance changes occur.yes No problem observed with learning needs - No cultural, restoration, or language barriers to learning Patient and [...] dry. Psychiatric: normal mood and affect. 1. care home assessment and implementation of infusion therapy. [...] reactions. Patient knows how to reorder medications. [facility] will [...] Description 02/13/2025 10:30 AM CDT Office Visit [facility] [place] [address] [place] [address] Kitty Dover, ANP [address] [place] [address] documented as of this encounter Visit Diagnoses Not on filedocumented in this encounter Care Teams Client Associate Relationship Specialty Start Date End Date Jasiel Freeman MD [address] [place] [phone] PCP - General Family Practice 08/15/17 documented as of this encounter
--- OUTSIDE RECORDS SUMMARY | 2024-10-24 05:29 | XMS_ITS | Encounter Summary ---
Author Organization [facility] Address [address] [place] [address] Care Team Providers Care Branch General Manager Name Role Phone Jasiel Freeman MD Primary Care Provider Reason for Visit * Reason Onset Date Comments Home Visit 03/08/2022 Encounter Details Date Type Department Care Team (Late st Contact Info) Description 03/08/2022 Patient Outreach [facility] Special[facility] and Home Infusion - [address] [place] [address] Irina Wyatt, RN Home Visit [...] Reading Time Taken Comments Blood Pressure 128/80 03/10/2022 2:00 PM CDT Pulse 93 03/10/2022 2:00 PM CDT Temperature 37.3 ??C (99.1 ??F) 03/10/2022 2:00 PM CD T Respiratory Rate 16 03/10/2022 2:00 PM CDT Oxygen Saturation 96% 03/10/2022 2:00 PM CDT Inhaled Oxygen Concentration - - Weight - - Height - - Body Mass Index - - documented in this encounter Miscellaneous Notes * Telephone Encounter - Irina Wyatt RN - 03/08/2022 10:56 AM CDT Images from the original note were not included. [facility] initial nursing visit Leonidas Elkins 1970 [address] [facility] [address] Provider - Irina Wyatt RN 03/08/2022 Visit start 1345 Visit end 1500 Home service agreement provided Verification of Benefits [...] yes Pt informed on importance of notifying [facility] immediately if any unexpected insurance changes occur.yes No problem observed with learning needs - No cultural, congregational, or language barriers to learning Patient and [...] reactions. Patient knows how to reorder medications. [facility] [...] Description 02/13/2025 10:30 AM CDT Office Visit [facility] [place] [address] [place] [address] Kitty Dover, ANP [address] [facility] [address] [place] [address] documented as of this encounter Visit Diagnoses Not on filedocumented in this encounter Care Teams Branch General Manager Relationship Specialty Start Date End Date Jasiel Freeman MD [address] [place] [phone] PCP - General Family Practice 08/15/17 documented as of this encounter
--- OUTSIDE RECORDS SUMMARY | 2024-10-24 05:29 | XMS_ITS | Encounter Summary ---
Author Organization [facility] Address [address] [place] [address] Care Team Providers Care Life Insurance Agent Name Role Phone Jasiel Freeman MD Primary Care Provider Reason for Visit * Reason Comments Medication Refill Encounter Details Date Type Department Care Team (Late st Contact Info) Description 09/01/2021 Refill [facility] Gastroenterology [facility] [address] [facility] [address] [place] [address] Annette Whitney MD [address] [facility] [address] [place] [address] Social History Tobacco Use Types Packs/Day Years [...] encounter Miscellaneous Notes * Telephone Encounter - Meliton Radford - 09/01/2021 9:03 AM CST Last Office Appointment 07/2021 Next OV 01/2022 Last Lab if on 6 mp or azathioprine Patient is requesting refill of (medication name) Dicyclomine Pharmacy Attached [facility] INFUSION THERAPY [id number] - [place], [place] - [address] [place] [address] Allergies Allergen Reactions ??? Infliximab Rash Other reaction(s): Sneezing flushed face Please review, sign and send. K LAYING EQUIPMENT OPERATOR documented in this encounter Plan of Treatment Upcoming Encounters Date Type Department Care Team (Late st Contact Info) Description 02/13/2025 10:30 AM CDT Office Visit [facility] [place] [address] [facility] [address] [place] [phone] Kitty Dover ANP [address] [place] [address] documented as of this encounter Visit Diagnoses Not on filedocumented in this encounter Care Teams Life Insurance Agent Relationship Specialty Start Date End Date Jasiel Freeman MD [address] [place] [phone] PCP - General Family Practice 08/15/17 documented as of this encounter
--- OUTSIDE RECORDS SUMMARY | 2024-10-24 05:29 | XMS_ITS | Encounter Summary ---
Author Organization [facility] Address [address] [place] [address] Care Team Providers Care Inspector Handbag Frames Name Role Phone Jasiel Freeman MD Primary Care Provider Encounter Details Date Type Department Care Team (Late st Contact Info) Description 08/02/2021 Abstract [facility] Gastroenterology [facility] [address] [facility] [address] [place] [address] Annette Whitney MD [address] [facility] [address] [address] Social History Tobacco Use Types Packs/Day Years [...] 10:30 AM CDT Office Visit [facility] IBD and Gastro[facility]ology [facility] [place] [address] [place] [address] Kitty Dover, MIRTA [address] [place] [address] documented as of this encounter Visit Diagnoses Not on filedocumented in this encounter Care Teams Inspector Handbag Frames Relationship Specialty Start Date End Date Jasiel Freeman MD [address] [place] [phone] PCP - General Family Practice 08/15/17 documented as of this encounter
--- OUTSIDE RECORDS SUMMARY | 2024-10-24 05:29 | XMS_ITS | Encounter Summary ---
Author Organization [facility] Address [address] [place] [address] Care Team Providers Care Art History Instructor Name Role Phone Jasiel Freeman MD Primary Care Provider Reason for Referral * Outpatient Services (Routine) - Closed Specialty Diagnoses / Procedures Referred By Contalka t Referred To Contact Pharmacy Diagnoses Ulcerative pancolitis without complication Procedures INFUSION THERAPY Annette Whitney MD [address] [facility] [place] [address] Zzzstlrx [facility] Home Infusion [address] [place] [address] Referral ID Status Reason Start Date Expiration Date Visits Re quested Visits Authorized [id number] Closed 07/08/2021 08/08/2022 1 1 Encounter Details Date Type Department Care Team (Late st Contact Info) Description 07/08/2021 Orders Only [facility] Gastroenterology [facility] [address] [facility] [address] [place] [address] Annette Whitney MD [address] [facility] [place] [place] [address] Ulcerative pancolitis without complication (Primary [...] [facility] [place] [address] [place] [address] Kitty Dover ANP [address] [place] [address] [place] [address] Scheduled Orders Name Type Priority Associated Diagnoses Orde r Schedule CBC WITH DIFFERENTIAL Lab Routine Ulcerative pancolitis without complication Every Twelve Weeks for 4 Occurrences starting 07/08/2021 until 07/08/2022, 1 completed COMPREHENSIVE METABOLIC PANEL Lab Routine Ulcerative pancolitis without complication Every Twelve Weeks for 4 Occurrences starting 07/08/2021 until 07/08/2022, 1 completed C-REACTIVE PROTEIN Lab Routine Ulcerative pancolitis without complication Every Twelve Weeks for 4 Occurrences starting 07/08/2021 until 07/08/2022, 1 completed VITAMIN B12 LEVEL Lab Routine Ulcerative pancolitis without complication Every Six Months for 2 Occurrences starting 07/08/2021 until 07/08/2022, 1 completed VITAMIN D 25 HYDROXY Lab Routine Ulcerative pancolitis without complication Every Six Months for 2 Occurrences starting 07/08/2021 until 07/08/2022, 1 completed documented as of this encounter Procedures Procedure Name Priority Date/Time Associated Diagnosis Comments QUANTIFERON TB GOLD Routine 07/29/2021 8 :06 AM CDT CBC WITH DIFFERENTIAL Routine 07/29/2021 8:06 AM CDT Ulcerative pancolitis without complication VITAMIN D 25 HYDROXY Routine 07/29/2021 8:06 AM CDT Ulcerative pancolitis without complication C-REACTIVE PROTEIN Routine 07/29/2021 8: 06 AM CDT Ulcerative pancolitis without complication VITAMIN B12 LEVEL Routine 07/29/2021 8:0 6 AM CDT Ulcerative pancolitis without complication COMPREHENSIVE METABOLIC PANEL Routine 07/29/2021 8:06 AM CDT Ulcerative pancolitis without complication documented in this encounter Results * QUANTIFERON TB GOLD (07/29/2021 8:06 AM CDT) [facility] QUANTIFERON TB GOLD PLUS NEGATIVE NEGATIVE [facility] Comment: Negative test result. M. tuberculosis complex infection unlikely. NIL 0.01 IU/mL [facility] MITOGEN-NIL 8.42 IU/mL [facility] TB1 AG - NIL 0.00 IU/mL [facility] TB2 AG - NIL 0.00 IU/mL [facility] Comment: The Nil tube value reflects the [...] T-lymphocytes. For additional information, please refer to https://education.Trony Solar/faq/PME505 (This link is being provided for informational/ educational purposes only.) Test Performed at: [facility] [address] [place] ??[phone] James Peres D.O., MPH 07/29/2021 8:06 AM CDT 07/29/2021 8:07 AM CDT Annette PRITCHETT Performing Organization Address [facility] Co de Phone Number [facility] [address] [place] [address] * (ABNORMAL) VITAMIN D 25 HYDROXY (07/29/2021 8:06 AM CDT) [facility] VITAMIN D, 25 OH, TOTAL 23(L) 30 - 100 ng/mL [facility] Comment: Vitamin D Status ? 25-OH Vitamin D: Deficiency: ?<20 ng/mL Insufficiency: ? 20 - 29 ng/mL Optimal: ? > or = 30 ng/mL For 25-OH Vitamin D testing on patients on D2-supplementation and patients for whom quantitation of D2 and D3 fractions is required, the QuestAssureD(TM) 25-OH VIT D, (D2,D3), LC/MS/MS is recommended: order code 01323 (patients >2yrs). See Note 1 Note 1 For additional information, please refer to http://education.Mozilla/faq/YKL333 (This link is being provided for informational/ educational purposes only.) Test Performed at: [facility] [id number] [place] [address] ??[phone] James Peres D.O., MPH Blood 07/29/2021 8:06 AM CDT 07/29/2021 8:07 AM CDT Annette PRITCHETT Performing Organization Address [facility] Co de Phone Number [facility] [address] [place] [address] * VITAMIN B12 LEVEL (07/29/2021 8:06 AM CDT) VITAMIN B12 245 200 - 1100 pg/mL [facility] Comment: Please Note: Although the reference range for vitamin B12 is 200-1100 pg/mL, it has been reported that between 5 and 10% of patients with values between 200 and 400 pg/mL may experience neuropsychiatric and hematologic abnormalities due to occult B12 deficiency; less than 1% of patients with values above 400 pg/mL will have symptoms. Test Performed at: [facility] [address] [place] [address] ??[phone] James Peres D.O., MPH Blood 07/29/2021 8:06 AM CDT 07/29/2021 8:07 AM CDT Annette Whitney MD CHEMISTRY ORDToño PRITCHETT Performing Organization Address [facility] de Phone Number [facility] [address] [place] [address] * C-REACTIVE PROTEIN (07/29/2021 8:06 AM CDT) Pathologist [facility] CRP 6.7 <8.0 mg/L [facility] Comment: Test Performed at: [facility] ??[phone] James Peres D.O., MPH Blood 07/29/2021 8:06 AM CDT 07/29/2021 8:07 AM CDT Annette Whitney MD CHEMISTRY ORDToño PRITCHETT Performing Organization Address [facility] Co de Phone Number [facility] [address] [place] [address] * (ABNORMAL) COMPREHENSIVE METABOLIC PANEL (07/29/2021 8:06 AM CDT) Pathologist [facility] GLUCOSE 115(H) 65 - 99 mg/dL [facility] Comment: ? Fasting reference interval For someone without known diabetes, a glucose value between 100 and 125 mg/dL is consistent with prediabetes and should be confirmed with a follow-up test. BUN 16 7 - 25 mg/dL [facility] CREATININE 1.23 0.70 - 1.33 mg/dL [facility] Comment: For patients >49 years of age, the reference limit for Creatinine is approximately 13% higher for people identified as -Taiwanese. GFR 68 > OR = 60 mL/min/1 .73m2 [facility] GFR, 79 > OR = 60 mL/min/1 .73m2 [facility] BUN/CREAT RATIO NOT APPLICABLE 6 - 22 (calc) [facility] SODIUM 136 135 - 146 mmol/L [facility] POTASSIUM 4.8 3.5 - 5.3 mmol/L [facility] CHLORIDE 102 98 - 110 mmol/L [facility] CO2 27 20 - 32 mmol/L [facility] CALCIUM 9.0 8.6 - 10.3 mg/dL [facility] TOTAL PROTEIN 7.0 6.1 - 8.1 g/dL [facility] ALBUMIN 3.9 3.6 - 5.1 g/dL [facility] GLOBULIN 3.1 1.9 - 3.7 g/dL (calc) [facility] ALBUMIN/GLOBULIN RATIO 1.3 1.0 - 2.5 (calc) [facility] BILIRUBIN TOTAL 0.5 0.2 - 1.2 mg/dL [facility] ALKALINE PHOSPHATASE 64 35 - 144 U/L [facility] AST 16 10 - 35 U/L [facility] ALT 16 9 - 46 U/L [facility] Comment: Test Performed at: [facility] ??[phone] James Peres D.O., MPH Blood 07/29/2021 8:06 AM CDT 07/29/2021 8:07 AM CDT Annette Whitney MD CHEMISTRY SHELBY PRITCHETT [facility] [address] [place] [address] * (ABNORMAL) CBC WITH DIFFERENTIAL (07/29/2021 8:06 AM CDT) WBC 6.4 3.8 - 10.8 Thousand/u L [facility] RBC 6.05(H) 4.20 - 5.80 Million/uL [facility] HEMOGLOBIN 15.0 13.2 - 17.1 g/dL [facility] HEMATOCRIT 49.4 38.5 - 50.0 % [facility] MCV 81.7 80.0 - 100.0 fL [facility] MCH 24.8(L) 27.0 - 33.0 pg [facility] MCHC 30.4(L) 32.0 - 36.0 g/dL [facility] RDW 14.6 11.0 - 15.0 % [facility] PLATELETS 395 140 - 400 Thousand/u L [facility] MPV 10.0 7.5 - 12.5 fL [facility] NEUTROPHIL ABSOLUTE 4,627 1,500 - 7,800 cells/uL [facility] LYMPHOCYTE ABSOLUTE 1,056 850 - 3,900 cells/uL [facility] MONOCYTE ABSOLUTE 544 200 - 950 cells/uL [facility] EOSINOPHIL ABSOLUTE 122 15 - 500 cells/uL [facility] BASOPHILS ABSOLUTE 51 0 - 200 cells/uL [facility] NEUTROPHIL 72.3 % [facility] LYMPHOCYTES 16.5 % [facility] MONOCYTE 8.5 % [facility] EOSINOPHILS 1.9 % [facility] BASOPHILS 0.8 % [facility] Comment: Test Performed at: [facility] [address] [place] [address] ??[phone] James Peres D.O., MPH Blood 07/29/2021 8:06 AM CDT 07/29/2021 8:07 AM CDT Annette Whitney MD HEMATOLOGY ORD ERABLES [facility] [address] [place] [address] documented in this encounter Visit Diagnoses Diagnosis Ulcerative pancolitis without complication- Primary documented in this encounter Care Teams Art History Instructor Relationship Specialty Start Date End Date Jasiel Freeman MD [address] [place] [address] PCP - General Family Practice 08/15/17 documented as of this encounter
--- OUTSIDE RECORDS SUMMARY | 2024-10-24 05:29 | XMS_ITS | Encounter Summary ---
Author Organization [facility] Address [address] [place] [address] Care Team Providers Care Edger Operator Name Role Phone Jasiel Freeman MD Primary Care Provider Reason for Visit * Reason Onset Date Comments Home Visit 02/08/2022 Encounter Details Date Type Department Care Team (Late st Contact Info) Description 02/08/2022 Patient Outreach [facility] Specialty and Home Infusion - [address] [place] [address] Irina Wyatt, RN Home Visit [...] Sign Reading Time Taken Comments Blood Pressure 120/64 02/08/2022 11:45 AM CDT Pulse 79 02/08/2022 11:45 AM CDT Temperature 36.8 ??C (98.2 ??F) 02/08/2022 11:45 AM C DT Respiratory Rate 16 02/08/2022 11:45 AM CDT Oxygen Saturation 97% 02/08/2022 11:45 AM CDT Inhaled Oxygen Concentration - - Weight - - Height - - Body Mass Index - - documented in this encounter Miscellaneous Notes * Telephone Encounter - Irina Wyatt RN - 02/10/2022 1:29 PM CDT Images from the original note were not included. [facility] Home Infusion NURSING follow up Leonidas Elkins 1970 [address] [facility] [address] Provider - Irina Wyatt RN 02/08/22 Visit start 1130 Visit end 1243 Contact numbers provided including after hours numbers [...] Pt informed on importance of notifying [facility] immediately if any unexpected insurance changes occur.yes No problem observed with learning needs - No cultural, hoahaoism, or language barriers to learning Patient and [...] normal mood and affect. Pain: 0 1. halfway assessment and implementation of infusion therapy. Teaching [...] Patient knows how to reorder medications. [facility] will [...] [facility] IBD [facility] Gastroenterology [facility] [place] [address] [place] [address] Kitty Dover ANP [address] [place] [address] documented as of this encounter Visit Diagnoses Not on filedocumented in this encounter Care Teams Edger Operator Relationship Specialty Start Date End Date Jasiel Freeman MD [address] [place] [address] PCP - General Family Practice 08/15/17 documented as of this encounter
--- OUTSIDE RECORDS SUMMARY | 2024-10-24 05:29 | XMS_ITS | Encounter Summary ---
Author Organization [facility] Address [address] [place] [address] Care Team Providers Care Bucket Operator Name Role Phone Jasiel Freeman MD Primary Care Provider Reason for Visit * Reason Onset Date Comments Entyvio infusion 09/14/2021 Encounter Details Date Type Department Care Team (Late st Contact Info) Description 09/14/2021 Telephone [facility] Gastroenterology - [facility] [address] [facility] [address] [place] [address] Annette Whitney MD [address] [facility] [address] [place] [address] Entyvio infusion Social History Tobacco Use Types Packs/Day Years [...] encounter Miscellaneous Notes * Telephone Encounter - Cristina Lindsay - 09/14/2021 2:12 PM CST Patient notified of physician recommendations. RVISOR DRY PASTE * Telephone Encounter - Annette Whitney MD - 09/14/2021 12:12 PM SUPERVISOR DRY PASTE Typically you just resume the cycle, so it will be 5 weeks this time, then 4 weeks again moving forward. I doubt his insurance will pay for an infusion at 3 weeks, but if they will it is OK for him to get the next one early. RVISOR DRY PASTE * Telephone Encounter - Cristina Lindsay - 09/14/2021 10:41 AM CST Patient put off his Entyvio infusion x1 week (was due 09/08/21) due to him being on vacation, will have it done 09/15/21. He is wanting to know if his Juan Jose infusion can be done in 3 weeks rather than 4 weeks so he can get back on his normal schedule. Please advise RVISOR DRY PASTE documented in this encounter Plan of Treatment Upcoming Encounters Date Type Department Care Team (Late st Contact Info) Description 02/13/2025 10:30 AM CDT Office Visit [facility] IBD and Gastroenterology Center [place] [address] [facility] [address] [place] [address] Kitty Dover ANP [address] [place] [address] documented as of this encounter Visit Diagnoses Not on filedocumented in this encounter Care Teams Bucket Operator Relationship Specialty Start Date End Date Jasiel Freeman MD [address] [place] [phone] PCP - General Family Practice 08/15/17 documented as of this encounter
--- OUTSIDE RECORDS SUMMARY | 2024-10-24 05:29 | XMS_ITS | Encounter Summary ---
Author Organization [facility] Address [address] [place] [address] Care Team Providers Care Septic Tank Setter Name Role Phone Jasiel Freeman MD Primary Care Provider Reason for Visit * Reason Onset Date Comments Home Visit 09/15/2021 Encounter Details Date Type Department Care Team (Late st Contact Info) Description 09/15/2021 Patient Outreach [facility]fusion - [address] [place] [address] Irina Wyatt, RN Home Visit [...] Sign Reading Time Taken Comments Blood Pressure 114/78 09/15/2021 10:30 AM EXHAUST AND MUFFLER REPAIRER Pulse 82 09/15/2021 10:30 AM EXHAUST AND MUFFLER REPAIRER Temperature 36.3 ??C (97.4 ??F) 09/15/2021 10:[address] Respiratory Rate 16 09/15/2021 10:30 AM EXHAUST AND MUFFLER REPAIRER Oxygen Saturation 97% 09/15/2021 10:30 AM EXHAUST AND MUFFLER REPAIRER Inhaled Oxygen Concentration - - Weight - - Height - - Body Mass Index - - documented in this encounter Miscellaneous Notes * Telephone Encounter - Irina Wyatt RN - 09/15/2021 8:38 PM CST Images from the original note were not included. [facility] Home Infusion NURSING follow up Leonidas Elkins 1970 [address] [facility] [address] Provider - Irina Wyatt RN 09/15/2021 Visit start 1000 Visit end 1110 Contact numbers provided including after hours numbers [...] yes Pt informed on importance of notifying [facility] immediately if any unexpected insurance [...] normal mood and affect. Pain: 0 1. long term assessment and implementation of infusion therapy. Teaching of patient/caregiverrole in infusion therapy. Goal : Infusion therapy will be delivered per physicians orders. Infusion access will remain patent. Patient and caregiver will demonstrate an understanding of teaching and learning goals related toinfusion therapy. Intervention : 22 gauge PIV placed [...] reactions. Patient knows how to reorder medications. [facility] will dispense [...] in approximately 4 weeks for Entyvio infusion UST AND MUFFLER REPAIRER documented in this encounter Plan of Treatment Upcoming Encounters Date Type Department Care Team (Late st Contact Info) Description 02/13/2025 10:30 AM CDT Office Visit [facility] IBD and Gastroenterology [facility] [place] [address] [place] [phone] Kitty Dover ANP [address] [place] [address] documented as of this encounter Visit Diagnoses Not on filedocumented in this encounter Care Teams Septic Tank Setter Relationship Specialty Start Date End Date Jasiel Freeman MD [address] [place] [phone] PCP - General Family Practice 08/15/17 documented as of this encounter
--- OUTSIDE RECORDS SUMMARY | 2024-10-24 05:29 | XMS_ITS | Encounter Summary ---
Author Organization [facility] Address [address] [place] [address] Care Team Providers Care Ready To Wear Department Manager Name Role Phone Jasiel Freeman MD Primary Care Provider Reason for Visit * Reason Onset Date Comments IV Med 03/25/2021 Called patient f or 48 hour post infusion follow up. Pt reports that they are feeling well, no side effects or adverse events after their infusion. Denies any new symptoms or concerns. Instructed to call if any questions/concerns arise. Has [facility] and MD contact information. Encounter Details Date Type Department Care Team (Late st Contact Info) Description 03/25/2021 Telephone [facility] Specialty and Home Infusion - [address] [place] [address] Irina Wyatt RN IV Med [...] Description 02/13/2025 10:30 AM CDT Office Visit [facility] IBD and Gastroenterology Center [place] [address] [facility] [address] [place] [phone] Kitty Dover, ANP [address] [place] [address] [place] [address] documented as of this encounter Visit Diagnoses Not on filedocumented in this encounter Care Teams Ready To Wear Department Manager Relationship Specialty Start Date End Date Jasiel Freeman MD [address] [place] [phone] PCP - General Family Practice 08/15/17 documented as of this encounter
--- OUTSIDE RECORDS SUMMARY | 2024-10-24 05:29 | XMS_ITS | Encounter Summary ---
Author Organization [facility] Address [address] [place] [address] Care Team Providers Care Warehouse Inventory Clerk Name Role Phone Jasiel Freeman MD Primary Care Provider Reason for Visit * Reason Comments Medication Refill Encounter Details Date Type Department Care Team (Late st Contact Info) Description 12/04/2021 Refill [facility] Gastroenterology [facility] [address] [facility] [address] [place] [address] Annette Whitney MD 1 [facility] DIV [place] [phone] Social History Tobacco Use Types Packs/Day Years [...] 10:30 AM CDT Office Visit [facility] IBD and Gastroenterology Center [place] [address] [place] [address] Kitty Dover ANP [address] [place] [address] documented as of this encounter Visit Diagnoses Not on filedocumented in this encounter Care Teams Warehouse Inventory Clerk Relationship Specialty Start Date End Date Jasiel Freeman MD [address] [place] [phone] PCP - General Family Practice 08/15/17 documented as of this encounter
--- OUTSIDE RECORDS SUMMARY | 2024-10-24 05:29 | XMS_ITS | Encounter Summary ---
Author Organization [facility] Address [address] [place] [address] Care Team Providers Care Counterintelligence Agent Name Role Phone Jasiel Freeman MD Primary Care Provider Encounter Details Date Type Department Care Team (Late Contact Info) Description 01/27/2021 Orders Only [facility] Gastroenterology [facility] [address] [facility] [address] [place] [address] Joaquina Prescott RN Ulcerative pancolitis without complication Social History Tobacco [...] Encounters Date Type Department Care Team (Late Contact Info) Description 02/13/2025 10:30 AM CDT Office Visit [facility] Gastroenterology [facility] [place] [address] [facility] [address] [place] [address] Kitty Dover, ANP [address] [place] [address] documented as of this encounter Procedures Procedure Name Priority Date/Time Associated Diagnosis Comments MISCELLANEOUS LAB TEST Routine 12/09/2020 9:31 AM REMEDIAL TEACHER Ulcerative pancolitis without complication documented in this encounter Results * MISCELLANEOUS LAB TEST (12/09/2020 9:31 AM REMEDIAL TEACHER) MISCELLANEOUS LAB TEST 3.2 ug/mL [facility] Comment:vedolizumab level SPECIMEN TYPE blood NON [facility] MISCELLANEOUS LAB TEST <25 ng NON [facility] Comment:Anti-Vedolizumab Ant ibody Blood 12/09/2020 9:31 AM REMEDIAL TEACHER Annette Whitney MD CHEMISTRY [facility] PRITCHETT Performing Organization Address City/State/RUST Co de Phone Number NON [facility] documented in this encounter Visit Diagnoses Diagnosis Ulcerative pancolitis without complication documented in this encounter Care Teams Counterintelligence Agent Relationship Specialty Start Date End Date Jasiel Freeman MD [address] [place] [address] PCP - General Family Practice 08/15/17 documented as of this encounter
--- OUTSIDE RECORDS SUMMARY | 2024-10-24 05:29 | XMS_ITS | Encounter Summary ---
Author Organization [facility] Address [address] [place] [address] Care Team Providers Care Operations Management Trainee Name Role Phone Jasiel Freeman MD Primary Care Provider Reason for Visit * Reason Comments Medication Refill Encounter Details Date Type Department Care Team (Late st Contact Info) Description 10/07/2021 Refill [facility] Gastroenterology [facility] [address] [facility] [address] [place] [address] Annette Whitney MD [address] [facility] [address] [place] [phone] Social History Tobacco Use Types Packs/Day Years [...] encounter Miscellaneous Notes * Telephone Encounter - Sondra Lowry - 10/07/2021 8:01 AM CST Last ov 08-02-21 Upcoming ov 02-01-22 THCARE REPRESENTATIVE documented in this encounter Plan of Treatment Upcoming Encounters Date Type Department Care Team (Late st Contact Info) Description 02/13/2025 10:30 AM CDT Office Visit [facility] IBD and Gastroenterology Center [place] [address] [place] [address] Kitty Dover, ANP [address] [place] [address] [place] [address] documented as of this encounter Visit Diagnoses Not on filedocumented in this encounter Care Teams Operations Management Trainee Relationship Specialty Start Date End Date Jasiel Freeman MD [address] [place] [phone] PCP - General Family Practice 08/15/17 documented as of this encounter
--- OUTSIDE RECORDS SUMMARY | 2024-10-24 05:29 | XMS_ITS | Encounter Summary ---
Author Organization [facility] Address [address] [place] [address] Care Team Providers Care Design Drafter Chief Name Role Phone Jasiel Freeman MD Primary Care Provider [phone] Reason for Visit * Reason Onset Date Comments Erroneous encounter-disregard 04/21/2021 Encounter Details Date Type Department Care Team (Late st Contact Info) Description 04/21/2021 Telephone [facility] Gastroenterology [facility] [address] [facility] [address] [place] [address] Ilya Lawson MD [address] [facility] [address] [place] [address] Erroneous encounter-disregard Social History Tobacco Use Types [...] encounter Miscellaneous Notes * Telephone Encounter - Amanda Perry RMA - 04/21/2021 8:31 AM CDT ERROR documented in this encounter Plan of Treatment Upcoming Encounters Date Type Department Care Team (Late st Contact Info) Description 02/13/2025 10:30 AM CDT Office Visit [facility] IBD and Gastroenterology Center [place] [address] [facility] [address] [place] [address] Kitty Dover, ANP [address] [place] [address] documented as of this encounter Visit Diagnoses Not on filedocumented in this encounter Care Teams Design Drafter Chief Relationship Specialty Start Date End Date Jasiel Freeman MD [address] [place] [phone] PCP - General Family Practice 08/15/17 documented as of this encounter
--- OUTSIDE RECORDS SUMMARY | 2024-10-24 05:29 | XMS_ITS | Encounter Summary ---
Author Organization [facility] Address [address] [place] [address] Care Team Providers Care Ball Mill Operator Name Role Phone Jasiel Freeman MD Primary Care Provider Reason for Visit * Reason Comments Medication Refill Encounter Details Date Type Department Care Team (Late st Contact Info) Description 11/04/[address] [facility] Gastroenterology [facility] [address] [facility] [address] [place] [address] Annette Whitney MD [address] [facility] [address] [place] [phone] Social History Tobacco Use Types Packs/Day Years [...] Notes * Telephone Encounter - Sondra Lowry 11/05/2021 8:27 AM CST Last ov 08-02-21 Upcoming ov 02-01-22 NG ADVISOR documented in this encounter Plan of Treatment Upcoming Encounters Date Type Department Care Team (Late st Contact Info) Description 02/13/2025 10:30 AM CDT Office Visit [facility] IBD and Gastroenterology [facility] [place] [address] [place] [address] Kitty Dover, ANP [address] [place] [address] documented as of this encounter Visit Diagnoses Not on filedocumented in this encounter Care Teams Ball Mill Operator Relationship Specialty Start Date End Date Jasiel Freeman MD [address] [place] [phone] PCP - General Family Practice 08/15/17 documented as of this encounter
--- OUTSIDE RECORDS SUMMARY | 2024-10-24 05:29 | XMS_ITS | Encounter Summary ---
Author Organization [facility] Address [address] [place] [address] Care Team Providers Care Home Agent Name Role Phone Jasiel Freeman MD Primary Care Provider Reason for Visit * Reason Onset Date Comments FMLA 07/06/2021 Encounter Details Date Type Department Care Team (Late st Contact Info) Description 07/06/2021 Telephone [facility] Gastroenterology [facility] [address] [facility] [address] [place] [address] Annette Whitney MD [address] [facility] [address] [place] [phone] [facility] Social History Tobacco Use Types Packs/Day Years [...] Telephone Encounter - Annette Whitney MD - 07/07/2021 3:09 AM CDT Office visit is not ???just?? to fill out paperwork. His last appointment in office was in 04/2020 with procedure in 06/2020. He is on Entyvio. iBD patients on advanced therapies such as Entyvio should be seen twice per year.Mr. Vyas needs updated labs for safety monitoring of his medication: CBC, cmp, TB test, vitamin b12 and D levels for health maintenance. I also have to provide justification to his insurance for him to continue Ent yvio by updating his clinical status. (Required every 6-12 months depending on drug and insurance). FMLA is in addition to all of that and again I have to verify what I am signing off on. Since I have not assessed him in over a year in clinic I can not complete these tasks. He may also follow up with a PA and FMLA paperwork can be updated at that time or after that visit (should be copied from prior forms with updated d ates and any changes in his clinical status). [facility] * Telephone Encounter - Annette Whitney MD - 07/06/2021 2:29 PM CDT He has not been seen in over 1 year. FMLA paperwork needs to be completed at an office visit. Annette Whitney MD, 07/06/2021 2:30 PM documented in this encounter Plan of Treatment Upcoming Encounters Date Type Department Care Team (Late st Contact Info) Description 02/13/2025 10:30 AM CDT Office Visit [facility] IBD and Gastroenterology Center [place] [address] [place] [address] Kitty Dover, MIRTA [address] [place] [address] documented as of this encounter Visit Diagnoses Not on filedocumented in this encounter Care Teams Home Agent Relationship Specialty Start Date End Date Jasiel Freeman MD [address] [place] [phone] PCP - General Family Practice 08/15/17 documented as of this encounter
--- OUTSIDE RECORDS SUMMARY | 2024-10-24 05:29 | XMS_ITS | Encounter Summary ---
Author Organization [facility] Address [address] [place] [address] Care Team Providers Care Bander Hand Name Role Phone Jasiel Freeman MD Primary Care Provider Encounter Details Date Type Department Care Team (Late st Contact Info) Description 08/06/2021 Specialty Pharmacy [facility] Specialty and Home Infusion - [address] [place] [address] Thanh Solares, PHARMACIST Social History [...] Progress Notes * Thanh Solares, PHARMACIST - 08/06/2021 9:38 AM CDT Images from the original note were not included. [facility] [address] [facility], [address] [place] [address] PH: [phone] FX: [phone] Specialty Pharmacy Infusion Note Patient Name: Edgardo [...] 08/09/2021 How are we shipping the medication? Sales Account Manager Is it ok to leave? yes Delivery note: This assessment performed by: Thanh Solares PHARMACIST [facility] IN[facility]ION [facility] [id number] [place] [address], [address] [address] PH: [phone] FX: [phone] Specialty Pharmacy Infusion Note Patient Name: Edgardo [...] n/a Patient informed on importance of [facility] immediately if any unexpected insurance changes occur. - n/a Authorization good through: 06/15/2022 Delivery: Delivery date: 07/12/2021 How are we shipping the medication? maintenance machine repairer Is it ok to leave? yes Delivery note: This assessment performed by: Thanh Solares, PHARMACIST [facility] SPECIALTY & INFUSION [address] [address] PH: [phone] FX: [phone] Specialty Pharmacy Infusion Note Patient Name: Edgardo [...] n/a Patient informed on importance of notifying [facility] Specialty and Infusion immediately if any unexpected insurance changes occur. - n/a Authorization good through: 06/15/2022 Delivery: Delivery date: 06/14/2021 How are we shipping the medication? maintenance machine repairer Is it ok to leave? yes Delivery note: This assessment performed by: Thanh Solares PHARMACIST [facility] SPECIALTY & INFUSION [facility] [address] [place] [address], [address] [address] PH: [phone] FX: [phone] Specialty Pharmacy Infusion Note Patient Name: Edgardo [...] 05/17/2021 How are we shipping the medication? maintenance machine repairer Is it ok to leave? yes Delivery note: This assessment performed by: Thanh Solares, PHARMACIST [facility] SPECIAL[facility] INFUSION [facility] [address] [place] [address] PH: [phone] FX: [phone] Specialty Pharmacy Infusion Note Patient Name: Edgardo [...] 04/16/2021 How are we shipping the medication? maintenance machine repairer Is it ok to leave? yes Delivery note: This assessment performed by: Thanh Solares PHARMACIST [facility] SPECIALTY & INFUSION [facility] [address] [address] PH: [phone] FX: [phone] Specialty Pharmacy Infusion Note Patient Name: Edgardo [...] changes Patient informed on importance of notifying [facility] Specialty and Infusion immediately if any unexpected insurance changes occur. - yes Authorization good through: 06/15/2021 Delivery: Delivery date: 02/19/2021 How are we shipping the medication? Sales Account Manager Is it ok to leave? yes Delivery note: infusion changed to 02/22 This assessment performed by: FADI Silverman [facility] SPECIALTY & INFUSION [address], [place] [address] PH: [phone] FX: [phone] Specialty Pharmacy Infusion Note Patient Name: Edgardo [...] changes Patient informed on importance of notifying [facility] Specialty and Infusion immediately if any unexpected insurance changes occur. - yes Authorization good through: 01/12/2022 Delivery: Delivery date: 01/26/2021 How are we shipping the medication? maintenance machine repairer Is it ok to leave? yes Delivery note: deliver before 12pm This assessment performed by: FADI Silverman [facility] Specialty & Home Infusion [facility] Infusion Order Edgardo Elkins 50 y.o. / male Patient's address (May not be service address): [address] [place] [address] Order Date: 08/06/2021 Order(s): VEDOLIZUMAB( ENTYVIO) STANDING [...] specified Order taken by Thanh Solares PHARMACIST [facility] Specialty & Home Infusion [facility] [address] [place] [address] [facility] Specialty & Home Infusion [facility] Home Infusion Order Edgardo Elkins 50 y.o. / male Patient's address (May not be service address): [address] [place] [address] Order Date: 07/08/2021 Order(s): VEDOLIZUMAB( ENTYVIO) STANDING [...] specified Order taken by Thanh Solares PHARMACIST [facility] Specialty & Home Infusion [address] [address] [facility] In[facility] Home Infusion Order Edgadro Georgette Thyer 50 y.o. / male Patient's address (May not be service address): [address] [place] [address] Order Date: 10/20/2020 Order(s): Continue Entyvio 300mg IV every 4 weeks Per: Caren Whitney MD Generic substitution permitted for medications unless otherwise specified Order taken by Thanh Solares PHARMACIST [facility] Specialty & [place] Infusion [address] [address] Edgardo S Thyer 50 y.o. / male Patient's address on file: [address] [place] [address] Home Phone Work Phone Home Infusion Order [...] (through 05/26/19) Per: Caren / KESHA Whitney [facility] [address] [facility], [address] [facility] [address] Generic substitution permitted Detailed Home Infusion Orders [...] RN will take any ordered labs to [facility] when possible. If labs are not taken to a [facility] lab, it is the responsibility of nursing to make sure labs are faxed to the pharmacy at [phone] Whitney. Catheter Care Catheter type: PIV placed by VIOLENT CRIMES DETECTIVE prior to each infusion Flush IV catheter [...] lab draws/line complications. ?? Flushes provided by [facility] Specialty and Infusion pharmacy are for use [...] Elkins (50 y.o. male) is active with [facility] Specialty and Infusion services receiving Entyvio every 8 weeks at home for ulcerative colitis. ?? Edgardo is due for his next infusion this week. Pharmacist contacted VIOLENT CRIMES DETECTIVE to coordinate delivery. RN will picked edge sewing machine operator today. Patient received last infusion without issue. No questions or concerns at this time. Patient has appointment with Dr. Nair on 01/29. 05/13/19 - Spoke with the patient who stated he is doing well. He has had no changes in his medication therapy or no clinical issues. Will ship medications and supplies to the patient. Thanh Solares MBA, [facility] 08/08/19 - Patient to receive infusion of Entyvio today after an insurance issue. Will send medications and supplies for the infusion. RDS 08/19/19 - Confirmed with the nurse case sealer that the patient was scheduled to receive IV infusion of Entyvio on 08/22/19. Called the patient and left message that the delivery would be sent on 08/19/19 to the patient. JEANNA 09/17/19 - spoke with the patient who confirmed the scheduled infusion of Entyvio. Will send medications and supplies to the patient. The patient stated that has had no changes in medication or clinical condition. JEANNA 11/15/2019 - Spoke with the patient to [...] [facility] Infusion Care Team IV Pharmacy: [facility] / [phone] Nursing Agency: [facility] Physician(s): Dr. Whitney Additional Relevant Data Insurance Information: Payor: RX [facility] / Plan: RX PCS ADVANCE PARADIGM / Product Type: RX Caremark / IV access PIV placed by VIOLENT CRIMES DETECTIVE prior to each infusion Ht Readings from [...] level: Not on file Occupational History Employer: [employer] Employer: [employer] Tobacco Use ??? Smoking status: Former Smoker Packs/day: 0.50 Years: 10.00 Pack years: 5.00 Types: Cigarettes Quit date: 06/09/2011 Years since quittin.1 ??? Smokeless tobacco: Never Used ? ? [...] Gatherings with Friends and Family: ??? Attends Bahai Services: ??? Active Member of Clubs or Organizations: ??? Attends Club or Organization Meetings: ??? Marital Status: Intimate Partner Violence: ??? Fear of Current or Ex-Partner: ??? Emotionally Abused: ??? Physically Abused: ??? Sexually Abused: Medication Review Current Outpatient Medications: ??? ergocalciferol (VITAMIN D2) 50,000 unit capsule, Take 1 Capsule (50,000 Units) by mouth every 2weeks., Disp: 8 Capsule, Rfl: 2 ??? cyanocobalamin (VITAMIN B-12) 1,000 mcg/mL Solution, Inject 1 mL (1,000 mcg) by intramuscular injection every 30 days for 4 doses., Disp: 1 mL, Rfl: 3 ??? dicyclomine (BENTYL) 10 mg capsule, TAKE 1 CAPSULE BY MOUTH 4 TIMES A DAY, Disp: 120 Capsule, Rfl: 0 ??? hyoscyamine 0.375 mg Extended Release 12 [...] by intraveous injection see administration instructions. Home VIOLENT CRIMES DETECTIVE to administer over 30 minutes every 8 [...] to Patient ?? Pharmacist offer to primary counselor ?? RN instruction ?? Printed teaching sheets ?? Drug information paperwork - [facility] patient leaflet Thanh Solares, PHARMACIST [facility] [place] [address], [address] [place] [address] documented in this encounter Plan of Treatment Upcoming Encounters Date Type Department Care Team (Late st Contact Info) Description 02/13/2025 10:30 AM CDT Office Visit [facility] IBD and Gastroenterology [facility] [place] [address] [facility] [address] [place] [address] Kitty Dover, MIRTA [address] [place] [address] [facility] [address] [place] [address] documented as of this encounter Visit Diagnoses Not on filedocumented in this encounter Care Teams Bander Hand Relationship Specialty Start Date End Date Jasiel Freeman MD [address] [place] [phone] PCP - General Family Practice 08/15/17 documented as of this encounter
--- OUTSIDE RECORDS SUMMARY | 2024-10-24 05:29 | XMS_ITS | Encounter Summary ---
Author Organization [facility] Address [address] [place] [address] Care Team Providers Care Clinical Informatics Manager Name Role Phone Jasiel Freeman MD Primary Care Provider Reason for Visit * Reason Onset Date Comments Home Visit 01/26/2021 Encounter Details Date Type Department Care Team (Late st Contact Info) Description 01/26/2021 Patient Outreach [facility] Specialty and Home Infusion - [address] [place] [address] Irina Wyatt, RN Home Visit [...] Reading Time Taken Comments Blood Pressure 144/84 01/26/2021 2:30 PM CDT Pulse 88 01/26/2021 2:30 PM CDT Temperature 36.7 ??C (98 ??F) 01/26/2021 2:30 PM CDT Respiratory Rate 16 01/26/2021 2:30 PM CDT Oxygen Saturation 96% 01/26/2021 2:30 PM CDT Inhaled Oxygen Concentration - - Weight - - Height - - Body Mass Index - - documented in this encounter Miscellaneous Notes * Telephone Encounter - Irina Wyatt RN - 01/26/2021 4:07 PM CDT Images from the original note were not included. [facility] Specialty and Home Infusion Pharmacy [address] [facility] [place] [address] Home Infusion NURSING follow up Leonidas Edgardoisaiah Elkins 1970 [address] [facility] [address] Provider - Irina Wyatt RN 01/26/2021 Visit start 1335 Visit end 1447 Contact numbers provided including after hours numbers [...] no insurance changes since last dose given. YES Patient states that no anticipated insurance or job changes before next infusion. YES Pt informed on importance of notifying [facility] Specialty Pharmacy immediately if any unexpected insurance changes occur.YES No problem observed with learning needs - No cultural, yazidi, or language barriers to learning Patient and [...] There is no tenderness. GI/: clear yellow urine , BM without difficulty, no concerns Musculoskeletal: Normal range of motion. Neurological: alert and oriented to person, place, and time. Skin: Skin is warm and dry. Psychiatric: normal mood and affect. 1. halfway assessment and implementation of infusion therapy. Teaching of patient/caregiverrole in infusion therapy. Goal : Infusion therapy will be delivered per physicians orders. Infusion access will remain patent. Patient and caregiver will demonstrate an understanding of teaching and learning goals related to infusion therapy. Intervention : 24 gauge PIV placed to r fa without difficulty. Flushed PIV with 5-20 [...] reactions. Patient knows how to reorder medications. [facility] Specialty and Home Infusion Pharmacy will [...] Next home infusion nursing visit in approximately 8 weeks for Entyvio infusion documented in this encounter Plan of Treatment Upcoming Encounters Date Type Department Care Team (Late st Contact Info) Description 02/13/2025 10:30 AM CDT Office Visit [facility] IBD and Gastroenterology [facility] [place] [address] [place] [address] Kitty Dover, MIRTA [address] [facility] [address] [place] [address] documented as of this encounter Visit Diagnoses Not on filedocumented in this encounter Care Teams Clinical Informatics Manager Relationship Specialty Start Date End Date Jasiel Freeman MD [address] [place] [phone] PCP - General Family Practice 08/15/17 documented as of this encounter
--- OUTSIDE RECORDS SUMMARY | 2024-10-24 05:29 | XMS_ITS | Encounter Summary ---
Author Organization [facility] Address [address] [place] [address] Care Team Providers Care Tree Deadener Name Role Phone Jasiel Freeman MD Primary Care Provider Encounter Details Date Type Department Care Team (Late st Contact Info) Description 01/26/2021 Specialty Pharmacy [facility] Specialty and Home Infusion - [address] [place] [address] Thanh Solares, PHARMACIST Social History [...] Progress Notes * Thanh Solares, PHARMACIST - 01/26/2021 9:47 AM CDT Images from the original note were not included. [facility] Special[facility]fusion - [facility] SPECIALTY & INFUSION [facility] [address] [facility], [address] [place] [address] PH: [phone] FX: [phone] Specialty Pharmacy Infusion Note Patient Name: Edgardo [...] 01/26/2021 How are we shipping the medication? dean of girls Is it ok to leave? yes Delivery note: deliver before 12pm This assessment performed by: FADI Silverman [facility] Specialty & Home Infusion [facility] Home Infusion Order Edgardo Elkins 50 y.o. / male Patient's address (May not be service address): [address] [place] [address] Order Date: 10/20/2020 Order(s): Continue Entyvio 300mg IV every 4 weeks Per: Caren Whitney MD Generic substitution permitted for medications unless otherwise specified Order taken by FADI Silverman [facility] Specialty & Home Infusion [address] [address] Edgardo Elkins 50 y.o. / male Patient's address on file: [address] [place] [address] Home Phone Work Phone Home Infusion Order [...] (through 05/26/19) Per: Caren / KESHA Whitney [facility] Gastroenterology [address] [facility], [address] [facility] [address] Generic substitution permitted Detailed Home Infusion Orders [...] labs are faxed to the pharmacy at [phone] Whitney. Catheter Care Catheter type: PIV placed by BRANDING MACHINE OPERATOR prior to each infusion Flush [...] Elkins (50 y.o. male) is active with [facility] Specialty and Infusion services receiving Entyvio every 8 weeks at home for ulcerative colitis. ?? Edgardo is due for his next infusion this week. Pharmacist contacted BRANDING MACHINE OPERATOR to coordinate delivery. RN will belt picker today. Patient received last infusion without issue. No questions or concerns at this time. Patient has appointment with Dr. Nair on 01/29. 05/13/19 - Spoke with the patient who stated he is doing well. He has had no changes in his medication therapy or no clinical issues. Will ship medications and supplies to the patient. Thanh Solares MBA, [facility] 08/08/19 - Patient to receive infusion of Entyvio today after an insurance issue. Will send medications and supplies for the infusion. RDS 08/19/19 - Confirmed with the nurse medical case manager that the patient was scheduled [...] [facility] Care Team IV Pharmacy: [facility] / [phone] Nursing Agency: [facility] Physician(s): Dr. Whitney Additional Relevant Data Insurance Information: Payor: RX [facility] / Plan: RX PCS ADVANCE PARADIGM / Product Type: RX Caremark / IV access PIV placed by BRANDING MACHINE OPERATOR prior to each infusion Ht [...] acidosis E87.2 ??? Sepsis, unspecified A41.9 ??? OJRGE (acute kidney injury) N17.9 ??? Protein calorie [...] level: Not on file Occupational History Employer: [employer] Employer: [employer] Tobacco Use ??? Smoking status: Former Smoker [...] Gatherings with Friends and Family: ??? Attends Uatsdin Services: ??? Active Member of Clubs or [...] by intraveous injection see administration instructions. Home BRANDING MACHINE OPERATOR to administer over 30 minutes [...] Provided to Patient ?? Pharmacist offer to assessment counselor ?? RN instruction ?? Printed teaching sheets ?? Drug information paperwork - [facility] patient leaflet FADI Silverman [facility] Specialty & Infusion [facility] [address], [address] [place] [address] documented in this encounter Plan of Treatment Upcoming Encounters Date Type Department Care Team (Late st Contact Info) Description 02/13/2025 10:30 AM CDT Office Visit [facility] IBD and Gastroenterology [facility] [place] [facility] [facility] [address] [place] [address] Kitty Dover, ANP [address] [address] documented as of this encounter Visit Diagnoses Not on filedocumented in this encounter Care Teams Tree Deadener Relationship Specialty Start Date End Date Jasiel Freeman MD [address] [place] [phone] PCP - General Family Practice 08/15/17 documented as of this encounter
--- OUTSIDE RECORDS SUMMARY | 2024-10-24 05:29 | XMS_ITS | Encounter Summary ---
Author Organization [facility] Address [address] [place] [address] Care Team Providers Care Auto Transmission Specialist Name Role Phone Jasiel Freeman MD Primary Care Provider Reason for Visit * Reason Onset Date Comments Home Visit 08/10/2021 Encounter Details Date Type Department Care Team (Late st Contact Info) Description 08/10/2021 Patient Outreach [facility] Specialty and Home Infusion - [address] [place] [address] Irina Wyatt, RN Home Visit [...] Sign Reading Time Taken Comments Blood Pressure 128/78 08/10/2021 1:10 PM CDT Pulse 88 08/10/2021 1:50 PM CDT Temperature 35.4 ??C (95.7 ??F) 08/10/2021 1:10 PM CD T Respiratory Rate 16 08/10/2021 1:10 PM CDT Oxygen Saturation 95% 08/10/2021 1:50 PM CDT Inhaled Oxygen Concentration - - Weight - - Height - - Body Mass Index - - documented in this encounter Miscellaneous Notes * Telephone Encounter - Irina Wyatt RN - 08/11/2021 11:55 AM CDT [facility] Home Infusion NURSING follow up Leonidas Elkins 1970 [facility] [address] Provider - Irina Wyatt RN 08/10/21 Visit start 1300 Visit end 1400 Contact numbers provided including [...] yes Pt informed on importance of notifying [facility] Specialty Pharmacy immediately if any unexpected insurance changes occur.yes No problem observed with learning needs - No cultural, yazdanism, or language barriers to learning Patient and [...] normal mood and affect. Pain: 0 1. FDC assessment and implementation of infusion therapy. Teaching [...] reactions. Patient knows how to reorder medications. [facility] Specialty and Home Infusion Pharmacy will [...] Description 02/13/2025 10:30 AM CDT Office Visit [facility] IBD and Gastroenterology [facility] [place] [address] [place] [address] Kitty Dover, ANP [address] [facility] [address] [place] [address] documented as of this encounter Visit Diagnoses Not on filedocumented in this encounter Care Teams Auto Transmission Specialist Relationship Specialty Start Date End Date Jasiel Freeman MD [address] [place] [phone] PCP - General Family Practice 08/15/17 documented as of this encounter
--- OUTSIDE RECORDS SUMMARY | 2024-10-24 05:29 | XMS_ITS | Encounter Summary ---
Author Organization [facility] Address [address] [place] [address] Care Team Providers Care Engraving Press Operator Name Role Phone Jasiel Freeman MD Primary Care Provider Reason for Visit * Reason Onset Date Comments Home Visit 04/20/2021 Encounter Details Date Type Department Care Team (Late st Contact Info) Description 04/20/2021 Patient Outreach [facility]fusion - [address] [place] [address] Irina Wyatt, RN Home Visit [...] Reading Time Taken Comments Blood Pressure 128/88 04/20/2021 3:20 PM CDT Pulse 76 04/20/2021 3:20 PM CDT Temperature 35.8 ??C (96.5 ??F) 04/20/2021 2:20 PM CD T Respiratory Rate 16 04/20/2021 3:20 PM CDT Oxygen Saturation 95% 04/20/2021 3:20 PM CDT Inhaled Oxygen Concentration - - Weight - - Height - - Body Mass Index - - documented in this encounter Miscellaneous Notes * Telephone Encounter - Irina Wyatt RN - 04/22/2021 7:29 AM CDT Images from the original note were not included. [facility] [address] [place] [address] Home Infusion NURSING follow up Leonidas Edgardoisaiah [place] 1970 [address] [facility] [address] Provider - Irina Wyatt RN 04/20/21 Visit start 1415 Visit end 1532 Contact numbers provided including after hours numbers [...] Pt informed on importance of notifying [facility] immediately if any unexpected insurance changes occur.yes No problem observed with learning needs - No cultural, hinduism, or language barriers to learning Patient and [...] dry. Psychiatric: normal mood and affect. 1. snf assessment and implementation of infusion therapy. Teaching [...] Patient knows how to reorder medications. [facility] will [...] 02/13/2025 10:30 AM CDT Office Visit [facility] [place] [address] [place] [address] Kitty [place], MIRTA [address] [place] [address] documented as of this encounter Visit Diagnoses Not on filedocumented in this encounter Care Teams Engraving Press Operator Relationship Specialty Start Date End Date Jasiel Freeman MD [address] [place] [phone] PCP - General Family Practice 08/15/17 documented as of this encounter
--- OUTSIDE RECORDS SUMMARY | 2024-10-24 05:29 | XMS_ITS | Encounter Summary ---
Author Organization [facility] Address [address] [place] [address] Care Team Providers Care Lead Portfolio Manager Name Role Phone Jasiel Freeman MD Primary Care Provider Reason for Visit * Reason Comments Medication Refill Encounter Details Date Type Department Care Team (Late st Contact Info) Description 08/07/2021 Refill [facility] [address] [place] [address] Annette Whitney MD [address] [facility] [address] [place] [address] Social History Tobacco Use Types Packs/Day Years [...] * Telephone Encounter - Meliton Radford - 08/10/2021 11:17 AM CDT Last Office Appointment 07/2021 Next OV 01/2022 Last Lab if on 6 mp or azathioprine Patient is requesting refill of (medication name) Dicyclomine Pharmacy Attached [facility] THERAPY [id number] - [place], [place] - [address] [place] [address]. Allergies Allergen Reactions ??? Infliximab Rash Other reaction(s): Sneezing flushed face Please review, sign and send. documented in this encounter Plan of Treatment Upcoming Encounters Date Type Department Care Team (Late st Contact Info) Description 02/13/2025 10:30 AM CDT Office Visit [facility] [place] [address] [facility] [address] [place] [address] Kitty [place], MIRTA [address] [place] [phone] documented as of this encounter Visit Diagnoses Not on filedocumented in this encounter Care Teams Lead Portfolio Manager Relationship Specialty Start Date End Date Jasiel Freeman MD [address] [place] [phone] PCP - General Family Practice 08/15/17 documented as of this encounter
--- OUTSIDE RECORDS SUMMARY | 2024-10-24 05:29 | XMS_ITS | Encounter Summary ---
Author Organization [facility] Address [address] [place] [address] Care Team Providers Care Music Supervisor Name Role Phone Jasiel Freeman MD Primary Care Provider Reason for Visit * Reason Onset Date Comments Home Visit 10/19/2021 Encounter Details Date Type Department Care Team (Late st Contact Info) Description 10/19/2021 Patient Outreach [facility] Specialty and Home Infusion - [address] [place] [address] Irina Wyatt, RN Home Visit [...] Sign Reading Time Taken Comments Blood Pressure 124/62 10/19/2021 12:30 PM BLACKING MACHINE OPERATOR Pulse 93 10/19/2021 12:30 PM BLACKING MACHINE OPERATOR Temperature 36.7 ??C (98 ??F) 10/19/2021 12:30 PM BLACKING MACHINE OPERATOR Respiratory Rate 16 10/19/2021 12:30 PM BLACKING MACHINE OPERATOR Oxygen Saturation 100% 10/19/2021 12:30 PM BLACKING MACHINE OPERATOR Inhaled Oxygen Concentration - - Weight - - Height - - Body Mass Index - - documented in this encounter Miscellaneous Notes * Telephone Encounter - Irina Wyatt RN - 10/20/2021 10:42 AM CST Images from the original note were not included. [facility] Home Infusion NURSING follow up Leonidas Edgardo Welchyesi 1970 [address] [facility] [address] Provider - Irina Wyatt RN 10/19/21 Visit start 1205 Visit end 1320 Contact numbers provided including after hours numbers [...] yes Pt informed on importance of notifying [facility] immediately if any unexpected [...] normal mood and affect. Pain: 0 1. USP assessment and implementation of infusion therapy. Teaching [...] reactions. Patient knows how to reorder medications. [facility] will [...] in approximately 4 weeks for Entyvio infusion KING MACHINE OPERATOR documented in this encounter Plan of Treatment Upcoming Encounters Date Type Department Care Team (Late st Contact Info) Description 02/13/2025 10:30 AM CDT Office Visit [facility] [place] [address] [place] [phone] Kitty Dover ANP [address] [place] [address] documented as of this encounter Visit Diagnoses Not on filedocumented in this encounter Care Teams Music Supervisor Relationship Specialty Start Date End Date Jasiel Freeman MD [address] [place] [phone] PCP - General Family Practice 08/15/17 documented as of this encounter
--- OUTSIDE RECORDS SUMMARY | 2024-10-24 05:29 | XMS_ITS | Encounter Summary ---
Author Organization [facility] Address [address] [place] [address] Care Team Providers Care Recycling Center Operator Name Role Phone Jasiel Freeman MD Primary Care Provider Reason for Visit * Reason Onset Date Comments Home Visit 07/13/2021 Encounter Details Date Type Department Care Team (Late st Contact Info) Description 07/13/2021 Patient Outreach [facility] Special[facility] and Home Infusion - [address] [place] [address] Irina Wyatt, RN Home Visit [...] Sign Reading Time Taken Comments Blood Pressure 134/70 07/13/2021 2:30 PM CDT Pulse 89 07/13/2021 3:00 PM CDT Temperature 37 ??C (98.6 ??F) 07/13/2021 2:30 PM CDT Respiratory Rate 16 07/13/2021 2:30 PM CDT Oxygen Saturation 96% 07/13/2021 3:00 PM CDT Inhaled Oxygen Concentration - - Weight - - Height - - Body Mass Index - - documented in this encounter Miscellaneous Notes * Telephone Encounter - Irina Wyatt RN - 07/15/2021 9:07 AM CDT Images from the original note were not included. [facility] Home Infusion NURSING follow up Leonidas [place] 1970 [address] [facility] [address] Provider - Irina Wyatt RN 07/13/21 Visit start 1415 Visit end 1514 Contact numbers provided including after hours numbers [...] Pt informed on importance of notifying [facility] immediately if any unexpected insurance changes occur.yes No problem observed with learning needs - No cultural, buddhism, or language barriers to learning Patient and [...] normal mood and affect. Pain: 0 1. longterm assessment and implementation of infusion therapy. Teaching [...] Patient knows how to reorder medications. [facility] will [...] [facility] [place] [address] [place] [phone] Kitty Dover ANP [address] [place] [address] documented as of this encounter Visit Diagnoses Not on filedocumented in this encounter Care Teams Recycling Center Operator Relationship Specialty Start Date End Date Jasiel Freeman MD [address] [place] [address] PCP - General Family Practice 08/15/17 documented as of this encounter
--- OUTSIDE RECORDS SUMMARY | 2024-10-24 05:29 | XMS_ITS | Encounter Summary ---
Author Organization [facility] Address [address] [place] [address] Care Team Providers Care Electromyographic Technician Name Role Phone Jasiel Freeman MD Primary Care Provider Reason for Visit * Reason Comments Follow Up Encounter Details Date Type Department Care Team (Latest Contact Info) Description 08/02/2021 9:00 AM CDT Office Visit [facility] Gastroenterology [facility] [address] [facility] [address] [place] [phone] Gilma Marcos PA [address] [facility] [address] [place] [address] Inflammatory bowel disease (Primary Dx) Social History Tobacco Use Types [...] Sign Reading Time Taken Comments Blood Pressure 138/84 08/02/2021 9:12 AM CDT Pulse 80 08/02/2021 9:12 AM CDT Temperature - - Respiratory Rate - - Oxygen Saturation - - Inhaled Oxygen Concentration - - Weight 80.7 kg (178 lb) 08/02/2021 9:12 AM CDT Height 175.3 cm (5' 9 ) 08/02/2021 9:12 AM CDT Body Mass Index 26.29 08/02/2021 9:12 AM CDT documented in this encounter Progress Notes * Gilma Marcos PA - 08/02/2021 10:06 AM CDT [facility] Gastroenterology Outpatient Office Visit CSN: [id number] Date of Visit: 08/02/2021 Date of : 1970 PCP: Jasiel [place] MD GI Doc: [facility] Admit: no admits over the past year Last OV: 04/2020 CC: IBD HPI: Edgardo [place] is a 49 y/o male with h/o UC s/p [place] colectomy with J [place] [address] Recinos. 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 The thought process now is chronic pouchitis vs Crohn's. He has been on Humira, Remicade, Xifaxin, Cipro, Augmentin, Vanc, prednisone, Protonix, Asacol, cefdinir and currently Entyvio 300mg q 4 weeks. His last infusion was 2 weeksago. He gets his infusions at home. He has used hyoscyamine 0.375mg BID in the past, but is currently taking 10mg Bentyl QID. His last office visit was a little over a year ago. He was having symptoms of a flare and SBO was suspected given presentation and abdominal Xray. He went to ER for CT and this did not show an obstruction. His last pouchoscopy was 05/2020. Pouchoscopy 05/2020. Impression: Pouchitis vs. Crohn's of the pouch with suspected strictures Pathology: Small intestine, pre-pouch ileum, endoscopic biopsy: - Active ileitis, patchy and very mild. Small intestine, pouch, endoscopic biopsy: - Small intestinal mucosa with reactive changes and patchy and mild active enteritis. Intestine, rectal cuff, endoscopic biopsy: - Small intestinal mucosa/rectal mucosa with patchy and mild active enteritis. Last cross section imaging 05/20/20 IMPRESSION: Status post colectomy with J-pouch reconstruction. No evidence of bowel obstruction. The bowel gas pattern is similar to 07/26/2012. Cholelithiasis without biliary dilatation. He is doing well on the Entyvio every 4 weeks. He denies abdominal pain, nausea, vomiting, abdominal distention. He has 3-4 loose stools daily pending on what he eats. He will get up at night once tohave a BM, but has been doing this for years. No new rectal symptoms, bleeding, pain, drainage. ROS General: No F/C/NS, appetite changes, wt changes, sleep disturbances Derm: No rash, pruritus, lumps/bumps Neuro: No headaches, paresthesias, syncope, dizziness, lightheadedness, mental status changes Eyes: No glaucoma, irritation, dryness, pain, visual disturbances Pulm: No cough, SOB/GARDNER Cardiac: No CP, palpitations GI: See HPI M/S: No myalgias/arthralgias Allergies Allergen Reactions ??? Infliximab Rash Other reaction(s): Sneezing flushed face Current Outpatient Medications Medication Sig Dispense Refill ??? ergocalciferol (VITAMIN D2) 50,000 unit capsule Take 1 Capsule (50,000 Units) by mouth every 2 weeks. 8 Capsule 2 ??? dicyclomine (BENTYL) 10 mg capsule TAKE 1 CAPSULE BY MOUTH 4 TIMES A DAY 120 Capsule 0 ??? hyoscyamine 0.375 mg Extended Release 12 hour tablet Take 1 Tablet (0.375 mg) by mouth every 12hours as needed for Discomfort. 60 Tablet 1 ??? ondansetron (ZOFRAN) 4 mg Tablet Take 1 Tablet (4 mg) by mouth every 8 hours as needed for Nausea/Emesis. 15 Tablet None ??? diphenoxylate-atropine (LOMOTIL) 2.5-0.025 mg tablet Take 1 Tablet by mouth 4 times daily as needed for Diarrhea/Loose Stools. 60 Tablet 1 ??? Syringe with Needle, Disp, (BD Luer-Jesusita Syringe) 3 mL 23 gauge x 1 1/2 Syringe For use with B12 injections 12 Each 2 ??? cyanocobalamin (VITAMIN B-12) 1,000 mcg/mL Solution Inject 1 mL (1,000 mcg) by intramuscular injection every 7 days. 10 mL 1 ??? SOLU-MEDROL, PF, 40 mg/mL Recon Soln ADMINISTER 40 MG VIA SLOW INTRAVENOUS PUSH IN CASE OF SEVERE ALLERGICREACTION. 1 Each 0 ??? SOLU-CORTEF 100 mg Recon Soln ADMINISTER 50 MG VIA SLOW INTRAVENOUS PUSH IN CASE OF SEVERE ALLERGICREACTION. DISCARD EXCESS. 100 mg 0 ??? BD PRECISIONGLIDE 25 gauge x 1 Needle USE DIRECTED TO ADMINISTER SOLU CORTEF 5 Each 1 ??? diphenhydrAMINE (BENADRYL) 50 mg/mL Solution ADMINISTER 25 MG VIA SLOW INTRAVENOUS PUSH IN CASEOF SEVERE ALLERGICREACTION. DISCARD EXCESS 1 mL 0 ??? vedolizumab (ENTYVIO) 300 mg Recon Soln Inject 300 mg by intraveous injection see administration instructions. Home PSYCHOMETRIST to administer over 30 minutes every 8 weeks. 300 mg 3 ??? TESTOSTERONE, BULK, MISC 1 mL by Misc.(Non-Drug; Combo Route) route. ??? [DISCONTINUED] ergocalciferol (VITAMIN D2) 50,000 unit capsule Take 1 Capsule (50,000 Units) bynduth every 2 weeks. 8 Capsule 2 No current facility-administered medications for this visit. Past Medical History: Diagnosis Date ??? Arthritis ??? Asthma as a child ??? 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 Ulcerative colitis ??? Unspecified adverse effect of anesthesia violent after 1st surgery Past Surgical History: Procedure Laterality Date ??? HX COLECTOMY 2001 ??? HX HIP REPLACEMENT, TOTAL Left 10/08/2017 ??? ND COLONOSCOPY FLX DX W/COLLJ SPEC WHEN PFRMD 12/08/2009 COLONOSCOPY performed by WILLIAN RIZO at [facility] ??? ND COLONOSCOPY FLX DX W/COLLJ SPEC WHEN PFRMD 06/09/2014 COLONOSCOPY performed by Lane Ryan MD at [facility] ??? ND DILATION RECTAL STRICTURE W ANEST 06/12/2012 RECTAL STRICTURE DILATATION performed by Lane Ryan MD at [facility] ??? ND ENDOSCOPY UPPER SMALL INTESTINE 06/12/2012 SMALL BOWEL ENTEROSCOPY performed by Lane Ryan MD at [facility] ??? ND ENDOSCOPY UPPER SMALL INTESTINE N/A 08/24/2017 SMALL BOWEL ENTEROSCOPY performed by Lane Ryan MD at [facility] ??? ND ENDOSCOPY UPPER SMALL INTESTINE W/BIOPSY 02/28/2012 BOWEL SMALL BIOPSY ENDOSCOPIC performed by Lane Ryan MD at [facility] ??? ND ESOPHAGOGASTRODUODENOSCOPY TRANSORAL DIAGNOSTIC 02/28/2012 ESOPHAGOGASTRODUODENOSCOPY performed by Lane Ryan MD at [facility] ??? ND NDSC EVAL INTSTINAL POUCH DX W/COLLJ SPEC SPX 02/16/2012 POUCHOSCOPY performed by Willian Rizo MD at [facility] LAB ??? ND SIGMOIDOSCOPY FLX DX W/COLLJ SPEC BR/WA IF PFRMD 02/16/2012 SIGMOIDOSCOPY FLEXIBLE performed by Willian Rizo MD at [facility] ??? ND SIGMOIDOSCOPY FLX DX W/COLLJ SPEC BR/WA IF PFRMD N/A 06/12/2020 CHECKOUT SIGMOIDOSCOPY FLEXIBLE performed by Annette [place] MD at [facility] Family History Problem Relation Name Age of Onset ??? Heart Disease Father ??? Hypertension Mother ??? Healthy Sister ??? Healthy Brother ??? Colon Cancer Neg Hx Social History Tobacco Use ??? Smoking status: Former Smoker Packs/day: 0.50 Years: 10.00 Pack years: 5.00 Types: Cigarettes Quit date: 06/09/2011 Years since quittin.1 ??? Smokeless tobacco: Never Used ? ? Tobacco comment: off & on Substance Use Topics ??? Alcohol use: Yes Comment: rarely No TOB use PE: BP 138/84 Pulse 80 Ht 5' 9 (1.753 m) Wt 80.7 kg (178 lb) BMI 26.29 kg/m?? Body mass index is 26.29 kg/m??. Counseling given: Not Answered Comment: off & on General: Well developed. Normal body habitus. No immediate distress. Non toxic appearing. Hearing grossly normal. Skin: No obvious rashes or visible lesions over abdomen Affect: Pleasant. Appropriate. Alertness: Alert and oriented. Eyes: No jaundice. No injection. Lids Normal. No xantholesmas. Mouth: Good dentition. No oral lesions. Mucous membranes moist Neck: Supple Lungs: Normal respiratory effort. Clear to auscultation. No adventitious sounds. Cardiovascular: S1S2. Regular. No m/r/c/g Abdomen: ND, +BS, soft, NTTP, No HSM, palpable masses or hernias Extremities: No clubbing, cyanosis or edema Lab Results Component Value Date/Time WBC 6.4 07/29/2021 08:06 AM HEMOGLOBIN 15.0 07/29/2021 08:06 AM HEMATOCRIT 49.4 07/29/2021 08:06 AM PLATELETS 395 07/29/2021 08:06 AM MCV 81.7 07/29/2021 08:06 AM Lab Results Component Value Date/Time SODIUM 136 07/29/2021 08:06 AM POTASSIUM 4.8 07/29/2021 08:06 AM CHLORIDE 102 07/29/2021 08:06 AM CO2 27 07/29/2021 08:06 AM CALCIUM 9.0 07/29/2021 08:06 AM BUN 16 07/29/2021 08:06 AM CREATININE 1.23 07/29/2021 08:06 AM GLUCOSE 115 (H) 07/29/2021 08:06 AM TOTAL PROTEIN 7.0 07/29/2021 08:06 AM ALBUMIN 3.9 07/29/2021 08:06 AM BILIRUBIN TOTAL 0.5 07/29/2021 08:06 AM ALKALINE PHOSPHATASE 64 07/29/2021 08:06 AM AST 16 07/29/2021 08:06 AM ALT 16 07/29/2021 08:06 AM ANION GAP 10 05/20/2020 04:21 PM BUN/CREAT RATIO NOT APPLICABLE 07/29/2021 08:06 AM Vitamin D 23, B 12 is 245 Impression/Plan: Mr. Edgardo [place] is a 50 y/o male with h/o Severe UC s/p total colectomy with J pouch 2001 that has had chronic pouchitis and perianal fistula's. There was concern for Crohn's. Pouchoscopy done last year with inflammation, but no granulomas. He is stable on Entyvio 300mg q 4 weeks. Will continue. Labs reviewed. Vitamin D deficiency will replace. B12 Deficiency in the past and recent level low normal. Will continue replacement of B 12. We discussed follow up with labs in 6 months. Intermittent FMLA paperwork filled out for the next 6 months. Gilma Marcos PA-C [facility]enter[facility] [address] [place] [address] Phone: [phone] CC: Jasiel Freeman MD documented in this encounter Plan of Treatment Upcoming Encounters Date Type Department Care Team (Late st Contact Info) Description 02/13/2025 10:30 AM CDT Office Visit [facility] [place] [address] [place] [phone] Kitty Dover, MIRTA [address] [place] [address] [place] [address] documented as of this encounter Visit Diagnoses Diagnosis Inflammatory bowel disease- Primary Other and unspecified noninfectious gastroenteritis and colitis documented in this encounter Care Teams Electromyographic Technician Relationship Specialty Start Date End Date Jasiel Freeman MD [address] [place] [phone] PCP - General Family Practice 08/15/17 documented as of this encounter
--- OUTSIDE RECORDS SUMMARY | 2024-10-24 05:29 | XMS_ITS | Encounter Summary ---
Author Organization [facility] Address [address] [place] [address] Care Team Providers Care Supervising Fire Marshal Name Role Phone Jasiel Freeman MD Primary Care Provider Encounter Details Date Type Department Care Team (Late st Contact Info) Description 11/12/2021 Specialty Pharmacy [facility] Specialty and Home Infusion - [address] [place] [address] Thanh Solares, PHARMACIST Social History [...] Progress Notes * Thanh Solares, PHARMACIST - 11/12/2021 9:02 AM CST Images from the original note were not included. [facility] Specialty & Infusion - [facility] SPECIALTY & INFUSION [facility] [address] [facility], [address] [place] [address] PH: [phone] FX: [phone] Specialty Pharmacy Infusion Note Patient Name: Edgardo [...] anticipated Patient informed on importance of notifying [facility] immediately if any unexpected insurance changes occur. - yes Authorization good through: 06/15/2022 Delivery: Delivery date: 11/15/2021 How are we shipping the medication? Jewelry Mechanic Is it ok to leave? yes Delivery note: This assessment performed by: Thanh Solares, PHARMACIST [facility] [place] [address] PH: [phone] FX: [phone] Specialty Pharmacy Infusion Note Patient Name: Edgardo [...] anticipated Patient informed on importance of notifying [facility] Specialty and Infusion immediately if any unexpected insurance changes occur. - yes Authorization good through: 06/15/2022 Delivery: Delivery date: 10/13/2021 How are we shipping the medication? Jewelry Mechanic Is it ok to leave? yes Delivery note: This assessment performed by: Thanh Solares PHARMACIST [facility] SPECIALTY & INFUSION [place] [id number] PH: [phone] FX: [phone] Specialty Pharmacy Infusion Note Patient Name: Edgardo [...] 09/13/2021 How are we shipping the medication? Jewelry Mechanic Is it ok to leave? yes Delivery note: This assessment performed by: Thanh Solares, PHARMACIST [facility] SPECIALTY & INFUSION [facility] [address] [address] PH: [phone] FX: [phone] Specialty Pharmacy Infusion Note Patient Name: Edgardo [...] 08/09/2021 How are we shipping the medication? Jewelry Mechanic Is it ok to leave? yes Delivery note: This assessment performed by: Thanh D Street, PHARMACIST [facility] [id number] [place] [address], [address] [address] PH: [phone] FX: [phone] Specialty Pharmacy Infusion Note Patient Name: Edgardo [...] 07/12/2021 How are we shipping the medication? machine package sealer Is it ok to leave? yes Delivery note: This assessment performed by: Thanh Solares, PHARMACIST [facility] [address] [address] PH: [phone] FX: [phone] Specialty Pharmacy Infusion Note Patient Name: Edgardo [...] 06/14/2021 How are we shipping the medication? machine package sealer Is it ok to leave? yes Delivery note: This assessment performed by: Thanh Solares, PHARMACIST [facility] SPECIALTY & INFUSION [address] [address] PH: [phone] FX: [phone] Specialty Pharmacy Infusion Note Patient Name: Edgardo [...] notifying [facility] Specialty and Infusion immediately if any unexpected insurance changes occur. - n/a Authorization good through: 06/15/2021 Delivery: Delivery date: 05/17/2021 How are we shipping the medication? machine package sealer Is it ok to leave? yes Delivery note: This assessment performed by: Thanh Solares PHARMACIST [facility] SPECIALTY & INFUSION [address], [address] [address] PH: [phone] FX: [phone] Specialty Pharmacy Infusion Note Patient Name: Edgardo [...] n/a Patient informed on importance of notifying [facility] immediately if any unexpected insurance changes occur. - n/a Authorization good through: 06/15/2021 Delivery: Delivery date: 04/16/2021 How are we shipping the medication? machine package sealer Is it ok to leave? yes Delivery note: This assessment performed by: Thanh Solares, PHARMACIST [facility] SPECIAL[facility] INFUSION [address], [address] [address] PH: [phone] FX: [phone] Specialty Pharmacy Infusion Note Patient Name: Edgardo [...] 02/19/2021 How are we shipping the medication? Jewelry Mechanic Is it ok to leave? yes Delivery note: infusion changed to 5/3 This assessment performed by: Thanh Solares PHARMACIST [facility] SPECIALTY & INFUSION [address], [address] [address] PH: [phone] FX: [phone] Specialty Pharmacy Infusion Note Patient Name: Edgardo [...] 01/26/2021 How are we shipping the medication? machine package sealer Is it ok to leave? yes Delivery note: deliver before 12pm This assessment performed by: FADI Sivlerman [facility] Specialty & Home Infusion [facility] Home Infusion Order Edgardo Elkins 51 y.o. / male Patient's address (May not be service address): [address] [place] [address] Order Date: 08/06/2021 Order(s): VEDOLIZUMAB( ENTYVIO) STANDING [...] otherwise specified Order taken by FADI Silverman [facility] Specialty & Home Infusion [facility] [address] [place] [address] [facility] Specialty & Home Infusion [facility] Order Edgardo Elkins 51 y.o. / male Patient's address (May not be service address): [address] [place] [address] Order Date: 07/08/2021 Order(s): VEDOLIZUMAB( ENTYVIO) STANDING [...] specified Order taken by Thanh Solares, PHARMACIST [facility] Specialty & Home Infusion [facility] [address] [place] [address] [facility] Specialty & Home Infusion [facility]fusion Order Edgardo Elkins 51 y.o. / male Patient's address (May not be service address): [address] [address] Order Date: 10/20/2020 Order(s): Continue Entyvio 300mg IV every 4 weeks Per: Caren Whitney MD Generic substitution permitted for medications unless otherwise specified Order taken by Thanh Solares, PHARMACIST [facility] Specialty & Home Infusion [place] [address] [place] [address] Edgardo Welcher 51 y.o. / male Patient's address on file: [address] [address] Home Phone Work Phone Home Infusion Order [...] 05/26/19) Per: Caren / KESHA Whitney [facility] [address], [address] [facility] [address] Generic substitution permitted Detailed Home Infusion [...] to [facility] when possible. If labs are not taken to a [facility] lab, it is the responsibility of nursing to make sure labs are faxed to the pharmacy at [phone] Whitney. Catheter Care Catheter type: PIV placed by COMMUNITY ASSISTANT prior to each infusion Flush IV catheter [...] by [facility] Specialty and Infusion pharmacy are for use [...] Elkins (51 y.o. male) is active with [facility] Specialty and Infusion services receiving Entyvio every 8 weeks at home for ulcerative colitis. ?? Edgardo is due for his next infusion this week. Pharmacist contacted COMMUNITY ASSISTANT to coordinate delivery. RN will cigar packer and picker today. Patient received last infusion without issue. No questions or concerns at this time. Patient has appointment with Dr. Nair on 01/29. 05/13/19 - Spoke with the patient who stated he is doing well. He has had no changes in his medication therapy or no clinical issues. Will ship medications and supplies to the patient. Thanh Solares MBA, [facility] 08/08/19 - Patient to receive infusion of Entyvio today after an insurance issue. Will send medications and supplies for the infusion. [facility] 08/19/19 - Confirmed with the nurse supportive employment case manager that the patient was scheduled [...] [facility] Infusion Care Team [facility] / [phone] Nursing Agency: [facility] Physician(s): Dr. Whitney Additional Relevant Data Insurance Information: Payor: RX [facility] / Plan: RX [employer] ADVANCE PARADIGM / Product Type: RX [employer] / IV access PIV placed by COMMUNITY ASSISTANT prior to each infusion Ht Readings from [...] level: Not on file Occupational History Employer: [employer] Employer: [employer] Tobacco Use ??? Smoking status: Former Smoker Packs/day: 0.50 Years: 10.00 Pack years: 5.00 Types: Cigarettes Quit date: 06/09/2011 Years since quittin.4 ??? Smokeless tobacco: Never Used ? ? [...] by intraveous injection see administration instructions. Home COMMUNITY ASSISTANT to administer over 30 minutes every 8 [...] Provided to Patient ?? Pharmacist offer to behavioral school counselors ?? RN instruction ?? Printed teaching sheets ?? Drug information paperwork - EH patient leaflet FADI Silverman [facility] [address] [address] [facility] , [address] [place] [address] [facility] documented in this encounter Plan of Treatment Upcoming Encounters Date Type Department Care Team (Late st Contact Info) Description 02/13/2025 10:30 AM CDT Office Visit [facility] IBD and Gastroenterology Center [place] [address] [place] [address] Kitty Dover ANP [address] [place] [address] [place] [address] documented as of this encounter Visit Diagnoses Not on filedocumented in this encounter Care Teams Supervising Fire Marshal Relationship Specialty Start Date End Date Jasiel Freeman MD [address] [place] [phone] PCP - General Family Practice 08/15/17 documented as of this encounter
--- OUTSIDE RECORDS SUMMARY | 2024-10-24 05:29 | XMS_ITS | Encounter Summary ---
Author Organization [facility] Address [address] [place] [address] Care Team Providers Care Superintendent Compressor Stations Name Role Phone Jasiel Freeman MD Primary Care Provider Reason for Visit * Reason Onset Date Comments Home Visit 02/22/2021 Encounter Details Date Type Department Care Team (Late st Contact Info) Description 02/22/2021 Patient Outreach [facility] Specialty and Home Infusion - [address] [place] [address] Irina Wyatt, RN Home Visit [...] Sign Reading Time Taken Comments Blood Pressure 132/82 02/22/2021 2:00 PM CDT Pulse 83 02/22/2021 2:00 PM CDT Temperature 36.8 ??C (98.2 ??F) 02/22/2021 1:00 PM CD T Respiratory Rate 16 02/22/2021 2:00 PM CDT Oxygen Saturation 96% 02/22/2021 2:00 PM CDT Inhaled Oxygen Concentration - - Weight - - Height - - Body Mass Index - - documented in this encounter Miscellaneous Notes * Telephone Encounter - Irina Wyatt RN - 02/24/2021 9:48 AM CDT Images from the original note were not included. [facility] and Home Infusion Pharmacy [address] [place] [address] Home Infusion NURSING follow up Leonidas Edgardoisaiah Elkins 1970 [address] [facility] [address] Provider - Irina Wyatt RN 02/22/21 Visit start 1250 Visit end 1410 Contact numbers provided including after hours numbers [...] yes Pt informed on importance of notifying [facility] immediately if any unexpected insurance changes occur.yes No problem observed with learning needs - No cultural, sabianist, or language barriers to learning Patient and [...] dry. Psychiatric: normal mood and affect. 1. detention assessment and implementation of infusion [...] reactions. Patient knows how to reorder medications. [facility] Home Infusion Pharmacy will [...] 02/13/2025 10:30 AM CDT Office Visit [facility] IBD and Gastroenterology [facility] [place] [address] [place] [address] Kitty Dover, MIRTA [address] [place] [address] documented as of this encounter Visit Diagnoses Not on filedocumented in this encounter Care Teams Superintendent Compressor Stations Relationship Specialty Start Date End Date Jasiel Freeman MD [address] [place] [phone] PCP - General Family Practice 08/15/17 documented as of this encounter
--- OUTSIDE RECORDS SUMMARY | 2024-10-24 05:29 | XMS_ITS | Encounter Summary ---
Author Organization [facility] Address [address] [place] [address] Care Team Providers Care Associate Manager Affiliate Marketing Name Role Phone Jasiel Freeman MD Primary Care Provider Reason for Visit * Reason Onset Date Comments Home Visit 04/12/2022 Encounter Details Date Type Department Care Team (Late st Contact Info) Description 04/12/2022 Patient Outreach [facility] Specialty and Home Infusion - [address] [place] [address] Irina Wyatt, RN Home Visit [...] Sign Reading Time Taken Comments Blood Pressure 128/82 04/12/2022 12:30 PM CDT Pulse 77 04/12/2022 12:30 PM CDT Temperature 37.2 ??C (98.9 ??F) 04/12/2022 12:30 PM C DT Respiratory Rate 16 04/12/2022 12:30 PM CDT Oxygen Saturation 95% 04/12/2022 12:30 PM CDT Inhaled Oxygen Concentration - - Weight - - Height - - Body Mass Index - - documented in this encounter Miscellaneous Notes * Telephone Encounter - Irina Wyatt RN - 04/12/2022 2:59 PM CDT Images from the original note were not included. [facility] Specialty and Home Infusion Pharmacy Home Infusion NURSING follow up Leonidas Elkins 1970 [address] [facility] [address] Provider - Irina Wyatt RN 04/12/2022 Visit start 1215 Visit end 1315 Contact numbers provided including after hours numbers [...] yes Pt informed on importance of notifying [facility] immediately if any unexpected insurance changes occur.yes No problem observed with learning needs - No cultural, spiritism, or language barriers to learning Patient and [...] reactions. Patient knows how to reorder medications. [facility] Specialty and Home Infusion Pharmacy will dispense [...] 10:30 AM CDT Office Visit [facility] IBD and Gastroenterology [facility] [place] [address] [place] [phone] Kitty Dover ANP [address] [place] [address] documented as of this encounter Visit Diagnoses Not on filedocumented in this encounter Care Teams Associate Manager Affiliate Marketing Relationship Specialty Start Date End Date Jasiel Freeman MD [address] [place] [address] PCP - General Family Practice 08/15/17 documented as of this encounter
--- OUTSIDE RECORDS SUMMARY | 2024-10-24 05:29 | XMS_ITS | Encounter Summary ---
Author Organization [facility] Address [address] [place] [address] Care Team Providers Care Gas Station Attendant Name Role Phone Jasiel Freeman MD Primary Care Provider Reason for Visit * Reason Onset Date Comments Results 07/30/2021 Encounter Details Date Type Department Care Team (Late st Contact Info) Description 07/30/2021 Telephone [facility] Gastroenterology [facility] [address] [address] [place] [address] Annette Whitney MD [address] [facility] [address] DIV IM GASTROENTEROLOGY [place] [id number] Results Social History Tobacco Use Types Packs/Day [...] Telephone Encounter - Annette Whitney MD - 07/30/2021 8:36 AM CDT Gilma when he comes in for his appointment can you please start Vitamin D supplement and B12 shots? Thanks. KH documented in this encounter Plan of Treatment Upcoming Encounters Date Type Department Care Team (Late st Contact Info) Description 02/13/2025 10:30 AM CDT Office Visit [facility] IBD and Gastroenterology Center [place] [address] [place] [phone] Kitty [place], [facility] [address] [place] [address] documented as of this encounter Visit Diagnoses Not on filedocumented in this encounter Care Teams Gas Station Attendant Relationship Specialty Start Date End Date Jasiel Freeman MD [address] [place] [phone] PCP - General Family Practice 08/15/17 documented as of this encounter
--- OUTSIDE RECORDS SUMMARY | 2024-10-24 05:29 | XMS_ITS | Encounter Summary ---
Author Organization [facility] Address [address] [place] [address] Care Team Providers Care Automatic Bow Maker Machine Tender Name Role Phone Jasiel Freeman MD Primary Care Provider Reason for Visit * Reason Onset Date Comments IV Med 02/24/2021 Called patient f or 48 hour post infusion follow up. Pt reports that they are feeling well, no side effects or adverse events after their infusion. Denies any new symptoms or concerns. Instructed to call if any questions/concerns arise. [facility] and MD contact information. Encounter Details Date Type Department Care Team (Late st Contact Info) Description 02/24/2021 Telephone [facility] Specialty and Home Infusion - [address] [place] [address] Irina Wyatt RN IV Med [...] [facility] IBD [facility] Gastroenterology [facility] [place] [address] [facility] [address] [place] [phone] Kitty [place], ANP [address] [place] [place] [address] documented as of this encounter Visit Diagnoses Not on filedocumented in this encounter Care Teams Automatic Bow Maker Machine Tender Relationship Specialty Start Date End Date Jasiel Freeman MD [address] [place] [phone] PCP - General Family Practice 08/15/17 documented as of this encounter
--- OUTSIDE RECORDS SUMMARY | 2024-10-24 05:30 | XMS_ITS | Encounter Summary ---
Author Organization [facility] Address [address] [place] [address] Care Team Providers Care Ed Tech Name Role Phone Jasiel Freeman MD Primary Care Provider Reason for Visit * Reason Onset Date Comments Home Visit 10/14/2020 Encounter Details Date Type Department Care Team (Late st Contact Info) Description 10/14/2020 Patient Outreach [facility] Specialty and Home Infusion - [address] [place] [address] Irina Wyatt, RN Home Visit [...] Reading Time Taken Comments Blood Pressure 138/84 10/14/2020 2:45 PM EMERGENCY MEDICAL SERVICE MANAGER Pulse 87 10/14/2020 2:45 PM EMERGENCY MEDICAL SERVICE MANAGER Temperature 37.4 ??C (99.4 ??F) 10/14/2020 2:45 PM CS T Respiratory Rate 16 10/14/2020 2:45 PM EMERGENCY MEDICAL SERVICE MANAGER Oxygen Saturation 96% 10/14/2020 2:45 PM EMERGENCY MEDICAL SERVICE MANAGER Inhaled Oxygen Concentration - - Weight - - Height - - Body Mass Index - - documented in this encounter Miscellaneous Notes * Telephone Encounter - Irina Wyatt RN - 10/19/2020 8:27 AM CST Images from the original note were not included. [facility] Specialty and Home Infusion Pharmacy [address] [facility] [place] [address] Home Infusion NURSING follow up Leonidas Elkins 1970 [address] [facility] [address] Provider - Irina Wyatt RN 10/14/20 Visit start 1355 Visit end 1500 Contact numbers provided including [...] patient/ caregiver response to instruction - understood. No problem observed with learning needs - No cultural, uatsdin, or language barriers to learning Patient and CG are motivated to learn Patient and CG are willing and accepting of necessary care Physical Exam Constitutional: oriented to person, place, and time. appears well-developed and well-nourished. Head: Normocephalic and atraumatic. Neck: Normal range of motion. Cardiovascular: Normal rate and regular rhythm. Pulmonary/Chest: Effort normal Abdominal: Soft. Normal appearance and bowel sounds are normal. There is no tenderness. GI/: clear yellow urine, BM without difficulty, no concerns Musculoskeletal: Normal range of motion. Neurological: alert and oriented to person, place, and time. Skin: Skin is warm and dry. Psychiatric: normal mood and affect. 1. MCC assessment and implementation of infusion [...] reactions. Patient knows how to reorder medications. [facility] Specialty and Home Infusion Pharmacy [...] in approximately 8 weeks for Entyvio infusion GENCY MEDICAL SERVICE MANAGER documented in this encounter Plan of Treatment Upcoming Encounters Date Type Department Care Team (Late st Contact Info) Description 02/13/2025 10:30 AM CDT Office Visit [facility] IBD and Gastroenterology [facility] [place] [address] [place] [address] Kitty Dover ANP [address] [place] [address] [place] [address] documented as of this encounter Visit Diagnoses Not on filedocumented in this encounter Care Teams Ed Tech Relationship Specialty Start Date End Date Jasiel Freeman MD [address] [place] [phone] PCP - General Family Practice 08/15/17 documented as of this encounter
--- OUTSIDE RECORDS SUMMARY | 2024-10-24 05:30 | XMS_ITS | Encounter Summary ---
Author Organization [facility] Address [address] [place] [address] Care Team Providers Care Winding Machine Operator Name Role Phone Jasiel Freeman MD Primary Care Provider Reason for Visit * Reason Comments Abdominal Pain Encounter Details Date Type Department Care Team (Latest Contact Info) Description 05/20/2020 12:00 PM CDT Office Visit [facility] Gastroenterology [facility] [address] [address] Gilma Marcos PA [address] [facility] [address] [place] [address] Abdominal distention (Primary Dx); Ulcerative pancolitis without complication; Pouchitis; Abdominal pain, unspecified abdominal location; Bilious vomiting with nausea Social History Tobacco Use Types Packs/Day Years Used Date Smoking Tobacco: Former Cigarettes 0.5 10 0 06/09/2001 - 06/09/2011 Comments:off & on Alcohol Use Standard Drinks/Week [...] have Coronavirus / COVID-19? No / Unsure 05/20/2020 11:51 AM CDT documented as of this encounter Last Filed Vital Signs Vital Sign Reading Time Taken Comments Blood Pressure 120/80 05/20/2020 12:00 PM CDT Pulse - - Temperature - - Respiratory Rate - - Oxygen Saturation - - Inhaled Oxygen Concentration - - Weight 82.1 kg (181 lb) 05/20/2020 12:00 PM CDT Height 175.3 cm (5' 9 ) 05/20/2020 12:00 PM CDT Body Mass Index 26.73 05/20/2020 12:00 PM CDT documented in this encounter Progress Notes * Gilma Marcos PA - 05/20/2020 1:15 PM CDT [facility] Gastroenterology Outpatient Office Visit CSN: [id number] Date of Visit: 05/20/2020 Date of : 1970 PCP: Jasiel Freeman MD GI Doc: Dr. Nair Last OV: 04/29/20 CC: abdominal pain HPI: Edgardo Elkins is a 49 y/o male with h/o UC s/p total colectomy with J [place] [address] Recinos. He has had recurrent problems with pouchitis. The thought process now is chronic pouchitis vs Crohn's. He has been on Humira, Remicade, Xifaxin, Cipro, Augmentin, Vanc, prednisone, Protonix and Asacol. He is currently on Entyvio. His last infusion was 2-3 weeks ago. He typically has 5 stools a day. He will be having a Flex sig with Dr. Nair 06/12/20. He had to reschedule this once due to work issues. When he last saw Dr. Nair 04/29 she prescribed hyoscyamine 0.375 Today he presents because he is concerned he has a flare. His symptoms of a typical flare were different when it started, but now seem to be the same. On Monday05/08/2020 he had carrot's for lunch and taco soup with beans. 1/2 hour after dinner he had abdominal pains for 24 hours. He feels full in his abdomen. The pain was epigastric to periumbilical. He finally vomited and felt better. He had a BM that also helped. He still feels full and has a low appetite. He has been eating liquids and softfoods. His told him his abdomen looks distended. He is now having maybe 3 BM's a day and has not needed to get up at night to have a BM. Yesterday and today he now has pain over LLQ which is more typical of his pouchitis. He typically has stool increase with pouchitis, but he does not this time. He continues to have mild nausea. Denies h/o SBO. He did not take the hyoscyamine for the pain because he was worried it would stop things up, because he was having less BM's. Pouchoscopy 08/2017 Findings Moderate inflammation of the pouch including the small intestine and distal pouch, rule out neoplasm. Last CT 07/26/2012 FINDINGS: Comparison study is dated 06/26/2012. The lung bases are unremarkable. The liver, spleen, pancreas and adrenal glands are normal. Kidneys enhance symmetrically without focal lesion or hydronephrosis. There is again evidence of colectomy. A fluid-filled dilated bowel loop is again seen connecting the small bowel loop to the rectum. This bowel loop again demonstrates mucosal enhancement and mild thickening. The appearance has unchanged since the previous study. No bowel obstruction is visualized. No retroperitoneal lymphadenopathy is noted. No intraperitoneal free fluid or free air is identified. The urinary bladder is unremarkable. No fluid is seen in the pelvis. No pelvic mass or lymphadenopathy is seen ROS General: No F/C/NS, appetite changes, wt changes, sleep disturbances Pulm: No cough, SOB/GARDNER Cardiac: No CP, palpitations GI: See HPI Allergies Allergen Reactions ??? Remicade [Infliximab] Rash Current Outpatient Medications Medication Sig Dispense Refill ??? ergocalciferol (VITAMIN D2) 50,000 unit capsule Take 1 Capsule (50,000 Units) by mouth every 2 weeks. 8 Capsule 2 ??? diphenoxylate-atropine (LOMOTIL) 2.5-0.025 mg tablet Take 1 Tablet by mouth 4 times daily as needed for Diarrhea/Loose Stools. 60 Tablet 1 ??? hyoscyamine 0.375 mg Extended Release 12 hour tablet Take 1 Tablet (0.375 mg) by mouth every 12hours as needed for Discomfort. 60 Tablet 1 ??? Syringe with Needle, [...] by intraveous injection see administration instructions. Home RN FORENSIC to administer over 30 minutes every 8 weeks. 300 mg 3 ??? TESTOSTERONE, BULK, MISC 1 mL by Misc.(Non-Drug; Combo Route) route. No current facility-administered medications for this visit. Past Medical History: Diagnosis Date ??? Arthritis ??? Asthma as a child ??? 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 Ulcerative colitis ??? Unspecified adverse effect of anesthesia violent after 1st surgery Past Surgical History: Procedure Laterality Date ??? HX COLECTOMY 2001 ??? HX HIP REPLACEMENT, TOTAL Left 10/08/2017 ??? [place] COLONOSCOPY FLX DX W/COLLJ SPEC WHEN PFRMD 12/08/2009 COLONOSCOPY performed by LOUISE RIZO at [facility] ??? [place] COLONOSCOPY FLX DX W/COLLJ SPEC WHEN PFRMD 06/09/2014 [address]ONOSCOPY performed by Lane Ryan MD at [facility] GI LAB ??? [place] DILATION RECTAL STRICTURE W ANEST 06/12/2012 RECTAL STRICTURE DILATATION performed by Lane Ryan MD at [facility] GI LAB ??? [place] ENDOSCOPY UPPER SMALL INTESTINE 06/12/2012 SMALL BOWEL ENTEROSCOPY performed by Lane Ryan MD at [facility] GI LAB ??? IL ENDOSCOPY UPPER SMALL INTESTINE N/A 08/24/2017 SMALL BOWEL ENTEROSCOPY performed by Lane Ryan MD at [facility] GI LAB ??? [place] ENDOSCOPY UPPER SMALL INTESTINE W/BIOPSY 02/28/2012 BOWEL SMALL BIOPSY ENDOSCOPIC performed by Lane Ryan MD at [facility] GI LAB ??? IL ESOPHAGOGASTRODUODENOSCOPY TRANSORAL DIAGNOSTIC 02/28/2012 ESOPHAGOGASTRODUODENOSCOPY performed by Lane Ryan MD at [facility] GI LAB ??? [place] NDSC EVAL INTSTINAL POUCH DX W/COLLJ SPEC SPX 02/16/2012 POUCHOSCOPY performed by Louise Rizo MD at [facility] GI [facility] ??? [place] SIGMOIDOSCOPY FLX DX W/COLLJ SPEC BR/WA IF PFRMD 02/16/2012 SIGMOIDOSCOPY FLEXIBLE performed by Louise Rizo MD at [facility] GI [facility] Family History Problem Relation Name Age of Onset ??? Heart Disease Father ??? Hypertension Mother ??? Healthy Sister ??? Healthy Brother ??? Colon Cancer Neg Hx Social History Tobacco Use ??? Smoking status: Former Smoker Packs/day: 0.50 Years: 10.00 Pack years: 5.00 Types: Cigarettes Last attempt to quit: 06/09/2011 Years since quittin.9 ? ? Tobacco comment: off & on Substance Use Topics ??? Alcohol use: Yes Comment: rarely PE: BP 120/80 Ht 5' 9 (1.753 m) Wt 82.1 kg (181 lb) BMI 26.73 kg/m?? Body mass index is 26.73 kg/m??. Counseling given: Not Answered Comment: off & on General: Well developed. Normal body habitus. No immediate distress. Non toxic appearing. Hearing grossly normal. Affect: Pleasant. Appropriate. Alertness: Alert and oriented. Eyes: .No jaundice. No injection. Lids Normal. No xantholesmas. Neck: Supple Lungs: Normal respiratory effort. Clear to auscultation. No adventitious sounds. Cardiovascular: S1S2. Regular. No m/r/c/g Abdomen: Distended, BS absent, RLQ, periumbilical, LLQ tenderness, no rebound or guarding Extremities: No clubbing, cyanosis or edema Lab Results Component Value Date/Time WBC 6.8 04/29/2020 11:09 AM HEMOGLOBIN 16.6 (H) 04/29/2020 11:09 AM HEMATOCRIT 53.8 (H) 04/29/2020 11:09 AM PLATELETS 294 04/29/2020 11:09 AM MCV 85.9 04/29/2020 11:09 AM Lab Results Component Value Date/Time SODIUM 140 04/29/2020 11:09 AM POTASSIUM 3.8 04/29/2020 11:09 AM CHLORIDE 102 04/29/2020 11:09 AM CO2 24 04/29/2020 11:09 AM CALCIUM 8.8 04/29/2020 11:09 AM BUN 13 04/29/2020 11:09 AM CREATININE 1.19 (H) 04/29/2020 11:09 AM GLUCOSE 83 04/29/2020 11:09 AM TOTAL PROTEIN 7.1 04/29/2020 11:09 AM ALBUMIN 3.8 04/29/2020 11:09 AM BILIRUBIN TOTAL 0.4 04/29/2020 11:09 AM ALKALINE PHOSPHATASE 60 04/29/2020 11:09 AM AST 19 04/29/2020 11:09 AM ALT 19 04/29/2020 11:09 AM ANION GAP 14 04/29/2020 11:09 AM Impression/Plan: Mr. Edgardo Elkins is a 49 y/o male with h/o severe UC s/p total colectomy with J pouch and severe pouchitis on Entyvio. Has some perianal fistula's. There is concern for Crohn's. He has a flex sigmoidoscopy scheduled with Dr. Nair 06/12/20. Today he presents with abdominal pain, nausea, vomiting, and decreased stools. He is concerned about pouchitis although not all symptoms are typical for him. He does have distention and is tender on exam. Will get stat obstructive series to r/o obstruction. Gilma Marcos PA-C [facility] Gastroenterology [address] [place] [address] Phone: [phone] CC: Jasiel Freeman MD documented in this encounter Plan of Treatment Upcoming Encounters Date Type Department Care Team (Late st Contact Info) Description 02/13/2025 10:30 AM CDT Office Visit [facility]astro[facility] [place] [address] [place] [address] Kitty Dover, MIRTA [address] [place] [address] documented as of this encounter Results * XR ABDOMEN ACUTE SERIES 2+ VWS W CXR (05/20/2020 1:02 PM CDT) Anatomical Region Laterality Modality Abdomen Computed Radiogr aphy 05/20/2020 1:03 PM CDT Impressions 05/20/2020 3:32 PM CDT IMPRESSION: 1. Postsurgical changes of colonic anastomosis present in the right upper quadrant with distended loop of colon measuring up to 11 cm. No dilated loops of small bowel. No intraperitoneal free air. 2. Clear lungs. DICTATION LOCATION: Location 2 [facility] Narrative 05/20/2020 3:32 PM CDT EXAMINATION: XR ABDOMEN ACUTE SERIES 2+ VWS W CXR HISTORY: See Diagnosis Abdominal distention; Ulcerative pancolitis without complication; Pouchitis COMPARISON: Comparison is made with chest radiograph dated 02/24/2012. FINDINGS: Lungs are clear. No pleural effusion or pneumothorax. Heart is normal. Bones of the chest are normal. No intraperitoneal free air is seen. There is a large bowel anastomosis in the right upper quadrant with gaseous distention measuring up to 11 cm. No dilated loops of small bowel are seen. Procedure Note Chao Sy, - 05/20/2020 EXAMINATION: XR ABDOMEN ACUTE SERIES 2+ VWS W CXR HISTORY: See Diagnosis Abdominal distention; Ulcerative pancolitis without complication; Pouchitis COMPARISON: Comparison is made with chest radiograph dated 02/24/2012. FINDINGS: Lungs are clear. No pleural effusion or pneumothorax. Heart is normal. Bones of the chest are normal. No intraperitoneal free air is seen. There is a large bowel anastomosis in the right upper quadrant with gaseous distention measuring up to 11 cm. No dilated loops of small bowel are seen. IMPRESSION: 1. Postsurgical changes of colonic anastomosis present in the right upper quadrant with distended loop of colon measuring up to 11 cm. No dilated loops of small bowel. No intraperitoneal free air. 2. Clear lungs. DICTATION LOCATION: Location [address] [place] [address] Gilma [facility] documented in this encounter Visit Diagnoses Diagnosis Abdominal distention- Primary Flatulence, eructation, and gas pain Ulcerative pancolitis without complication Pouchitis Abdominal pain, unspecified abdominal location Bilious vomiting with nausea Abdominal distention Flatulence, eructation, and gas pain Ulcerative pancolitis without complication Pouchitis documented in this encounter Care Teams Winding Machine Operator Relationship Specialty Start Date End Date Jasiel Freeman MD [address] [place] [phone] PCP - General Family Practice 08/15/17 documented as of this encounter
--- OUTSIDE RECORDS SUMMARY | 2024-10-24 05:30 | XMS_ITS | Encounter Summary ---
Author Organization [facility] Address [address] [place] [address] Care Team Providers Care Balloon Tester Name Role Phone Jasiel Freeman MD Primary Care Provider Encounter Details Date Type Department Care Team (Late st Contact Info) Description 05/05/2020 Orders Only [facility] Gastroenterology [facility] [address] [place] [address] Annette Whitney MD [address] [facility] [address] [place] [address] Ulcerative pancolitis with other complication (Primary Dx) Social History Tobacco Use [...] have Coronavirus / COVID-19? No / Unsure 04/29/2020 10:20 AM CDT documented as of this encounter Plan of Treatment Upcoming Encounters Date Type Department Care Team (Late st Contact Info) Description 02/13/2025 10:30 AM CDT Office Visit [facility] IBD and Gastroenterology [facility] [place] [address] [place] [phone] Kitty Dover ANP [address] [place] [address] documented as of this encounter Visit Diagnoses Diagnosis Ulcerative pancolitis with other complication- Primary documented in this encounter Care Teams Balloon Tester Relationship Specialty Start Date End Date Jasiel Freeman MD [address] [place] [phone] PCP - General Family Practice 08/15/17 documented as of this encounter
--- OUTSIDE RECORDS SUMMARY | 2024-10-24 05:30 | XMS_ITS | Encounter Summary ---
Author Organization [facility] Address [address] [place] [address] Care Team Providers Care Quality Assurance Technician Name Role Phone Jasiel Freeman MD Primary Care Provider Encounter Details Date Type Department Care Team (Late st Contact Info) Description 10/13/2020 Specialty Pharmacy [facility] Specialty and Home Infusion - [address] [place] [address] Thanh Solares, PHARMACIST Social History [...] Progress Notes * Thanh Solares, PHARMACIST - 10/13/2020 10:10 AM CST Images from the original note were not included. [facility] Edgardo Elkins 50 y.o. / male Patient's address on file: [address] [place] [phone] Home Phone Work Phone Home Infusion Order [...] (through 05/26/19) Per: Caren / KESHA [facility] G[facility]enterology [address] [place] [address] Generic substitution permitted Detailed Home Infusion Orders [...] RN will take any ordered labs to [facility] when possible. If labs are not taken to a [facility] lab, it is the responsibility of nursing to make sure labs are faxed to the pharmacy at [phone] Whitney. Catheter Care Catheter type: PIV placed by B[facility]YCLE [facility]CH[facility] prior to each infusion Flush IV catheter [...] lab draws/line complications. ?? Flushes provided by [facility]fusion pharmacy are for [...] Elkins (50 y.o. male) is active with [facility] Infusion services receiving Entyvio every 8 weeks at home for ulcerative colitis. ?? Edgardo is due for his next infusion this week. Pharmacist contacted B[facility]YCLE [facility]CHAN[facility] to coordinate delivery. RN will pickle solution maker today. Patient received last infusion without issue. No questions or concerns at this time. Patient has appointment with Dr. Nair on 01/29. 05/13/19 - Spoke with the patient who stated he is doing well. He has had no changes in his medication therapy or no clinical issues. Will ship medications and supplies to the patient. Thanh Solares MBA, [facility] 08/08/19 - Patient to receive infusion of Entyvio today after an insurance issue. Will send medications and supplies for the infusion. JEANNA 08/19/19 - Confirmed with the nurse medical [...] [facility] Care Team IV Pharmacy: [facility] / [phone] Nursing Agency: [facility] Physician(s): Dr. Whitney Additional Relevant Data Insurance Information: Payor: RX [facility] / Plan: RX [employer] AD[employer]ANCE PARADIGM / Product Type: RX [employer] / IV access PIV placed by BICYCLE MECHANIC prior to each infusion Ht Readings from [...] level: Not on file Occupational History Employer: [employer] Employer: [employer] Social Needs ??? Financial resource strain: Not on file ??? Food insecurity Worry: Not on file Inability: Not on file ??? Transportation needs Medical: Not on file Non-medical: Not on file Tobacco Use ??? Smoking status: Former Smoker Packs/day: 0.50 Years: 10.00 Pack years: 5.00 Types: Cigarettes Quit date: 06/09/2011 Years since quittin.3 ??? Smokeless tobacco: Never Used ? ? Tobacco comment: off & on Substance and Sexual Activity ??? Alcohol use: Yes Comment: rarely ??? Drug use: No ??? Sexual activity: Not on file Lifestyle ??? Physical activity Days per week: Not on file Minutes per session: Not on file ??? Stress: Not on file Relationships ??? Social connections Talks on phone: Not on file Gets together: Not on file Attends sikh service: Not on file Active member of club or organization: Not on file Attends meetings of clubs or organizations: Not on file Relationship status: Not on file ??? Intimate partner violence Fear of current or ex partner: Not on file Emotionally abused: Not on file Physically abused: Not on file Forced sexual activity: Not on file Other Topics Concern ??? Not on file Social History Narrative ??? Not on file Medication Review Current Outpatient Medications: ??? hyoscyamine [...] by intraveous injection see administration instructions. Home BICYCLE MECHANIC to administer over 30 minutes every 8 [...] Provided to Patient ?? Pharmacist offer to sales counselor ?? RN instruction ?? Printed teaching sheets ?? Drug information paperwork - [facility] patient leaflet FADI Silverman [facility] - [place] [address] [address] , [address] [place] [address] [employer] documented in this encounter Plan of Treatment Upcoming Encounters Date Type Department Care Team (Late st Contact Info) Description 02/13/2025 10:30 AM CDT Office Visit [facility]astro[facility]ology [facility] [place] [address] [place] [address] Kitty Dover, MIRTA [address] [place] [address] documented as of this encounter Visit Diagnoses Not on filedocumented in this encounter Care Teams Quality Assurance Technician Relationship Specialty Start Date End Date Jasiel Freeman MD [address] [place] [phone] PCP - General Family Practice 08/15/17 documented as of this encounter
--- OUTSIDE RECORDS SUMMARY | 2024-10-24 05:30 | XMS_ITS | Encounter Summary ---
Author Organization [facility] Address [address] [place] [address] Care Team Providers Care Crop Adjuster Name Role Phone Jasiel Freeman MD Primary Care Provider Reason for Visit * Reason Comments Abdominal Pain Pt arrives to ED wit h c/o generalized abdominal pain. Hx UC and colectomy. Denies N/V/fever. Reports sent to ED from GI MD for abd CT due to abnormal XR. Encounter Details Date Type Department Care Team (Late st Contact Info) Description 05/20/2020 4:37 PM CDT - 05/20/2020 6:08 PM CDT Emergency [facility] Emergency Department [address] [place] [address] Shalonda Nuñez MD [address] [facility] [place], [place] [id number] Ulcerative pancolitis with complication (Primary Dx) Discharge Disposition: Home or Self Care Social [...] Sign Reading Time Taken Comments Blood Pressure 127/72 05/20/2020 5:58 PM CDT Pulse 85 05/20/2020 5:58 PM CDT Temperature 36.8 ??C (98.2 ??F) 05/20/2020 5:58 PM CD T Respiratory Rate 18 05/20/2020 5:58 PM CDT Oxygen Saturation 99% 05/20/2020 5:58 PM CDT Inhaled Oxygen Concentration - - Weight 83.9 kg (185 lb) 05/20/2020 2:52 PM CDT Height 175.3 cm (5' 9 ) 05/20/2020 2:52 PM CDT Body Mass Index 27.32 05/20/2020 2:52 PM CDT documented in this encounter Discharge Instructions * Discharge Instructions* Shalonda Nuñez MD - 05/20/2020 5:55 PM CDT Blood work is normal today. CT scan shows no obstruction. Rest, start with clear liquids. Advance to bland foods as tolerated. Take medication as prescribed for your symptoms. Call Dr Nair for followup. Return for fever >101, severe pain, or any concerns. * Attachments The following attachments cannot be sent through Care Everywhere. * Ulcerative Colitis (Bengali) documented in this encounter Medications at Time of Discharge Medication Sig Dispensed Refills Start Date End Date ondansetron (ZOFRAN) 4 mg Tablet Take 1 [...] mg) by mouth every 12 hours for 14 days. 28 Capsule 06/12/2020 06/26/2020 metroNIDAZOLE (FLAGYL) 500 mg tablet Take 1 Tablet (500 mg) by mouth 2 times daily for 7 days. 14 Tablet None 05/20/2020 05/27/2020 ergocalciferol (VITAMIN D2) 50,000 unit capsule Take 1 Capsule (50,000 Units) by mouth every 2 weeks. 8 Capsule 2 04/29/2020 08/02/2021 hyoscyamine 0.375 mg Extended Release 12 hour tablet Take 1 Tablet (0.375 mg) by mouth every 12 hours as needed for Discomfort. 60 Tablet 1 04/29/2020 07/30/2020 cyanocobalamin (VITAMIN B-12) 1,000 mcg/mL Solution Inject 1 mL (1,000 mcg) by intramuscular injection every 7 days. 10 mL 1 11/13/2019 08/02/2021 vedolizumab (ENTYVIO) 300 mg Recon Soln Inject 300 mg by intraveous injection see administration instructions. Home CHEMICAL PREPARER to administer over 30 minutes every 8 weeks. 300 mg 3 07/31/2019 11/14/2022 documented as of this encounter ED Notes * Lisy Perry RN - 05/20/2020 6:00 PM CDT Plan for discharge. * Rosalinda Galeana RN - 05/20/2020 5:33 PM CDT Pt returned from CT. Urine specimen sent at this time. Pt resting on stretcher, awaiting results, denies further needs at present time, no apparent distress. * Lisy Perry RN - 05/20/2020 5:30 PM CDT Pt to CT. No vomiting noted. * Rosalinda Galeana RN - 05/20/2020 5:19 PM CDT Pt to CT at this time. * Lisy Perry RN - 05/20/2020 4:40 PM CDT 49 YO M to the ED with a h/o ulcerative colitis presents with c/o abd pain with some N/V that started on Fri after eating. Pt seen by GI today and then was sent here for further evaluation to r/oobstruction. Denies any fever. Protocol complete in triage. * Day Damon RN - 05/20/2020 4:16 PM CDT [facility] ED Adult Male Abdominal Pain Protocol [facility] Approved by: [facility] - Medical Executive Committee Approval Date: 11/07/2019 ORDERS ARE ENTERED ???PER PROTOCOL?? Nursing Orders: o Insert peripheral IV (excessive vomiting or diarrhea) Laboratory Orders: o CBC with diff ([id number]) o CMP (LAB17) o Urinalysis with Reflex Microscopy (CRJ132) o Obtain lipase (LAB99) if upper abdominal pain o Draw and send extra tubes to lab (ED hold) ([id number]) Diagnostic Test Orders: o If RUQ pain, consult attending physician for Gallbladder ultrasound o Consider EKG if age >= 50 and having upper abdominal pain Includes indication for test Medication Orders: o Sodium chloride 0.9% (normal saline) flush 5mL every 8 hours o Sodium chloride 0.9% (normal saline) flush 5mL PRN for saline lock or medication administration Additional Instructions: o Keep NPO until otherwise ordered by attending physician. * Shalonda Nuñez MD - 05/20/2020 2:23 PM CDT HISTORY OF PRESENT ILLNESS Edgardo Elkins, a 49 y.o. male presents to the ED with a Chief Complaint of Abdominal Pain Subjective Documented Triage Chief Complaint: Abdominal Pain 5:00 PM: Edgardo Elkins is a 49 y.o. male with a history of ulcerative colitis who presents with abd pain and pressure with associated nausea and vomiting that started after eating Monday night (05/15).Pt states his symptoms feel consistent with a flair up of ulcerative colitis. He has had normal PO and fluid intake today and his pain is improving. Pt was seen at his GI clinic today and after an abnormal x-ray, pt was sent here for further evaluation due to concern of a partial obstruction. Denies any blood in his stool. Denies any fever. Denies any cough, cold symptoms, or COVID exposures. Severity: moderate Duration: 6 days Progression: improving Quality: see above Radiation: none Associated symptoms: see above Primary Care Doctor: Jasiel Freeman MD History provided by: The patient Arrived by: Private vehicle REVIEW OF SYSTEMS Review of Systems Constitutional: Negative for chills and fever. HENT: Negative for congestion, ear pain, rhinorrhea and sore throat. Respiratory: Negative for cough and shortness of breath. Cardiovascular: Negative for chest pain. Gastrointestinal: Positive for abdominal pain, nausea and vomiting. Negative for blood in stool anddiarrhea. Genitourinary: Negative for dysuria. Musculoskeletal: Negative for arthralgias and back pain. Skin: Negative for rash. Neurological: Negative for weakness and numbness. PAST MEDICAL HISTORY REVIEWED MEDICAL: Patient has a past medical history of Arthritis, Asthma, Injury of face and neck, Ulcerative colitis, and Unspecified adverse effect of anesthesia. 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 FAMILY: Patient's family history includes Healthy in his brother and sister; Heart Disease in his father; Hypertension in his mother. SOCIAL: reports that he quit smoking about 8 years ago. His smoking use included cigarettes. He has a 5.00 pack-year smoking history. He does not have any smokeless tobacco history on file. He reports current alcohol use. He reports that he does not use drugs. No history on file. Social History Other Topics Concern ??? Not on file PROBLEM LIST: Patient has Hyponatremia; Abdominal pain; Ulcerative colitis; Pouchitis; Acute bronchitis; SIRS (systemic inflammatory response syndrome); Metabolic acidosis; Sepsis, unspecified; JORGE (acute kidney injury); Protein calorie malnutrition; Malnutrition; Abdominal pain; Inflammatory bowel disease; and Vitamin D deficiency on their problem list. ALLERGIES Remicade [infliximab] HOME MEDICATIONS Discharge Medication List as of 05/20/2020 5:56 PM START taking these medications Details metroNIDAZOLE (FLAGYL) 500 mg tablet Take 1 Tablet (500 mg) by mouth 2 times daily for 7 days., Disp-14 Tablet,R-None ondansetron (ZOFRAN) 4 mg Tablet Take 1 Tablet (4 mg) by mouth every 8 hours as needed for Nausea/Emesis., Disp-15 Tablet,R-None CONTINUE these medications which have NOT CHANGED Details ergocalciferol (VITAMIN D2) 50,000 unit capsule Take 1 Capsule (50,000 Units) by mouth every 2 weeks., Disp-8 Capsule,R-2 diphenoxylate-atropine (LOMOTIL) 2.5-0.025 mg tablet Take 1 Tablet by mouth 4 times daily as neededfor Diarrhea/Loose Stools., Disp-60 Tablet,R-1 hyoscyamine 0.375 mg Extended Release 12 hour tablet Take 1 Tablet (0.375 mg) by mouth every 12 hours as needed for Discomfort., Disp-60 Tablet,R-1 Syringe with Needle, Disp, (BD Luer-Jesusita Syringe) 3 mL 23 gauge x 1 1/2 Syringe For use with B12 injections, Disp-12 Each, R-2 cyanocobalamin (VITAMIN B-12) 1,000 mcg/mL Solution Inject 1 mL (1,000 mcg) by intramuscular injection every 7 days., Disp-10 mL, R-1 SOLU-MEDROL, PF, 40 mg/mL Recon Soln ADMINISTER 40 MG VIA SLOW INTRAVENOUS PUSH IN CASE OF SEVERE ALLERGICREACTION., Disp-1 Each, R-0 SOLU-CORTEF 100 mg Recon Soln ADMINISTER 50 MG VIA SLOW INTRAVENOUS PUSH IN CASE OF SEVERE ALLERGICREACTION. DISCARD EXCESS., Disp-100 mg, R-0 BD PRECISIONGLIDE 25 gauge x 1 Needle USE DIRECTED TO ADMINISTER SOLU CORTEF, Disp-5 Each, R-1 diphenhydrAMINE (BENADRYL) 50 mg/mL Solution ADMINISTER 25 MG VIA SLOW INTRAVENOUS PUSH IN CASE OF SEVERE ALLERGICREACTION. DISCARD EXCESS, Disp-1 mL, R-0 vedolizumab (ENTYVIO) 300 mg Recon Soln Inject 300 mg by intraveous injection see administration instructions. Home CHEMICAL PREPARER to administer over 30 minutes every 8 weeks., Disp-300 mg, R-3 TESTOSTERONE, BULK, MISC 1 mL by Misc.(Non-Drug; Combo Route) route. Objective PHYSICAL EXAM INITIAL VS BP: 135/82 (05/20/20 1452), Heart Rate: 95 bpm (05/20/20 1452), Resp: 18 (05/20/20 1452), Pulse: 95(05/20/20 1452), Temp: 98.1 ??F (36.7 ??C) (05/20/20 1448), Temp src: Tympanic (05/20/20 1448), SpO2: 97 % (05/20/20 1452), Height: 5' 9 (175.3 cm) (05/20/20 1448), Weight: 83.9 kg (185 lb) (05/20/20 1448), BMI (Calculated): 27.31 (05/20/20 1448) No LMP for male patient. Physical Exam Vitals signs and nursing note reviewed. Constitutional: General: He is not in acute distress. HENT: Head: Normocephalic and atraumatic. Cardiovascular: Rate and Rhythm: Normal rate and regular rhythm. Heart sounds: Normal heart sounds. Pulmonary: Effort: Pulmonary effort is normal. Breath sounds: Normal breath sounds. Abdominal: Palpations: Abdomen is soft. There is no mass. Tenderness: There is abdominal tenderness (diffuse). There is no guarding or rebound. Musculoskeletal: Normal range of motion. General: No tenderness. Skin: General: Skin is warm and dry. Neurological: Mental Status: He is alert and oriented to person, place, and time. Motor: No abnormal muscle tone. DIAGNOSTICS LAB: CBC WITH DIFFERENTIAL - Abnormal Result Value WBC 6.1 RBC 6.08 (*) HEMOGLOBIN 16.3 HEMATOCRIT 53.0 (*) MCV 87.2 MCH 26.8 (*) MCHC 30.8 (*) RDW 14.0 RDW-STDEV 44.1 PLATELETS 345 MPV 10.0 NEUTROPHILS 74 LYMPHOCYTES 16 MONOCYTES 8 EOSINOPHILS 1 BASOPHILS 1 IMMATURE GRANULOCYTES 1 NEUTROPHIL ABSOLUTE 4.46 LYMPHOCYTE ABSOLUTE 0.98 MONOCYTE ABSOLUTE 0.49 EOSINOPHIL ABSOLUTE 0.07 BASOPHILS ABSOLUTE 0.03 IMMATURE GRANULOCYTES ABSOLUTE 0.03 COMPREHENSIVE METABOLIC PANEL - Abnormal SODIUM 139 POTASSIUM 4.1 CHLORIDE 103 CO2 26 CALCIUM 8.9 BUN 14 CREATININE 1.15 GLUCOSE 139 (*) TOTAL PROTEIN 7.4 ALBUMIN 4.0 BILIRUBIN TOTAL 0.3 ALKALINE PHOSPHATASE 73 AST 45 (*) ALT 49 (*) GFR >60 GFR, >60 ANION GAP 10 RADIOLOGY: No orders to display CT ABDOMEN PELVIS W CONTRAST EKG: PROCEDURES Procedures MEDICAL DECISION MAKING AND PLAN OF CARE --upon initial evaluation, pt was seen and examined by me. Will obtain labs and CT abdomen pelvis for further evaluation. Pt is agreeable with this plan. 5:48 PM: Updated pt on normal CT and labs. Will discharge home with GI follow up. Pt understands and is agreeable with plan. ED provider and ED nurse verbally discussed patient plan of care at this time. MDM Summary Statement: Patient with history of ulcerative colitis. Sent from GI clinic for evaluation. Patient with sensation of abdominal fullness and bloating that started a few days ago that improved today. No peritoneal signs on exam. Labs at baseline. CT scan shows no obstruction. Will discharge on Flagyl and Zofranas was originally planned by GI specialist. He agrees with plan for close follow up. I have reviewed previous: notes, labs, endoscope and CT I have reviewed current: labs and imaging I have reviewed nursing notes related to past medical history, social history, and review of systems and agree, unless otherwise noted. Medications Administered During the ED Stay from 05/20/2020 1423 to 05/20/2020 4907 Date/Time Order Dose Route Action 05/20/2020 1729 iopamidoL (ISOVUE-300) 61 % injection (drawn from multi-use bulk pack) 120 mL 120 mL IV Contrast Given 05/20/2020 1729 sodium chloride flush injection 10 mL 10 mL IV Given Discharge Medication List as of 05/20/2020 5:56 PM START taking these medications Details metroNIDAZOLE (FLAGYL) 500 mg tablet Take 1 Tablet (500 mg) by mouth 2 times daily for 7 days., Disp-14 Tablet,R-None ondansetron (ZOFRAN) 4 mg Tablet Take 1 Tablet (4 mg) by mouth every 8 hours as needed for Nausea/Emesis., Disp-15 Tablet,R-None CONTINUE these medications which have NOT CHANGED Details ergocalciferol (VITAMIN D2) 50,000 unit capsule Take 1 Capsule (50,000 Units) by mouth every 2 weeks., Disp-8 Capsule,R-2 diphenoxylate-atropine (LOMOTIL) 2.5-0.025 mg tablet Take 1 Tablet by mouth 4 times daily as neededfor Diarrhea/Loose Stools., Disp-60 Tablet,R-1 hyoscyamine 0.375 mg Extended Release 12 hour tablet Take 1 Tablet (0.375 mg) by mouth every 12 hours as needed for Discomfort., Disp-60 Tablet,R-1 Syringe with Needle, Disp, (BD Luer-Jesusita Syringe) 3 mL 23 gauge x 1 1/2 Syringe For use with B12 injections, Disp-12 Each, R-2 cyanocobalamin (VITAMIN B-12) 1,000 mcg/mL Solution Inject 1 mL (1,000 mcg) by intramuscular injection every 7 days., Disp-10 mL, R-1 SOLU-MEDROL, PF, 40 mg/mL Recon Soln ADMINISTER 40 MG VIA SLOW INTRAVENOUS PUSH IN CASE OF SEVERE ALLERGICREACTION., Disp-1 Each, R-0 SOLU-CORTEF 100 mg Recon Soln ADMINISTER 50 MG VIA SLOW INTRAVENOUS PUSH IN CASE OF SEVERE ALLERGICREACTION. DISCARD EXCESS., Disp-100 mg, R-0 BD PRECISIONGLIDE 25 gauge x 1 Needle USE DIRECTED TO ADMINISTER SOLU CORTEF, Disp-5 Each, R-1 diphenhydrAMINE (BENADRYL) 50 mg/mL Solution ADMINISTER 25 MG VIA SLOW INTRAVENOUS PUSH IN CASE OF SEVERE ALLERGICREACTION. DISCARD EXCESS, Disp-1 mL, R-0 vedolizumab (ENTYVIO) 300 mg Recon Soln Inject 300 mg by intraveous injection see administration instructions. Home CHEMICAL PREPARER to administer over 30 minutes every 8 weeks., Disp-300 mg, R-3 TESTOSTERONE, BULK, MISC 1 mL by Misc.(Non-Drug; Combo Route) route. LAST VS BP: 127/72 (05/20/201757), Heart Rate: 85 bpm (05/20/201757), Resp: 18 (05/20/201757), Pulse: 85(05/20/201757), Temp: 98.2 ??F (36.8 ??C) (05/20/201757), Temp src: Oral (05/20/201757), SpO2: 99 % (05/20/201757) CLINICAL IMPRESSION Final diagnoses: [K51.019] Ulcerative pancolitis with complication (Primary) DISPOSITION, EDUCATION AND MEDICATION RECONCILIATION Medications reconciled. See after visit summary for patient education on discharged patients. ED Disposition ED Disposition Condition User Date/Time Comment Discharge Stable Shalonda Nuñez MD MonMay 20, 2020 5:54 PM ATTESTATION STATEMENTS This note has been prepared by Whitley Glass acting as a scribe for Dr. Shalonda Nuñez on 05/20/2020 at 6:26 PM. The scribe's documentation has been prepared under my direction and personally reviewed by me, Shalonda Nuñez MD, in its entirety on 05/20/20 at 10:17 PM. I confirm that the note above accurately reflects all work, treatment, procedures, and medical decision making performed by me. documented in this encounter Plan of Treatment Upcoming Encounters Date Type Department Care Team (Late st Contact Info) Description 02/13/2025 10:30 AM CDT Office Visit [facility] [place] [address] [place] [address] Kitty Dover, MIRTA [address] [place] [address] documented as of this encounter Procedures Procedure Name Priority Date/Time Associated Diagnosis Comments URINALYSIS W/REFLEX MICROSCOPIC Stat 05/20/2020 5:[address] ABDOMEN PELVIS W CONTRAST Stat 05/20/2020 5:28 PM CDT CBC WITH DIFFERENTIAL Stat 05/20/2020 4:21 PM CDT COMPREHENSIVE METABOLIC PANEL Stat 05/20/2020 4:21 PM CDT documented in this encounter Results * URINALYSIS WITH REFLEX MICROSCOPIC (05/20/2020 5:31 PM CDT) COLOR UA Yellow Pale to Dark Yellow 05/20/2020 6:15 PM CDT [facility] CLARITY UA Clear Clear 05/20/2020 6:15 PM CDT [facility] SPECIFIC GRAVITY UA 1.012 1.003 - 1.035 05/20/2020 6:15 PM CDT [facility] - . [facility] PH UA 6.0 5.0 - 8.0 05/20/2020 6:15 PM CDT [facility] - . [facility] LEUKOCYTE ESTERASE UA Negative Negative 05/20/2020 6:15 PM CDT [facility] - . [facility] NITRITE UA Negative Negative 05/20/2020 6:15 PM CDT [facility] . [facility] PROTEIN UA Negative Negative 05/20/2020 6:15 PM CDT [facility] . [facility] GLUCOSE UA Negative Negative 05/20/2020 6:15 PM CDT [facility] KETONES UA Negative Negative 05/20/2020 6:15 PM CDT [facility] UROBILINOGEN UA Normal <2.0 mg/dL 0 6:15 PM CDT [facility] - [facility] BILIRUBIN UA Negative Negative 05/20/2020 6:15 PM CDT [facility] - [facility] BLOOD UA Negative Negative 05/20/2020 6:15 PM CDT [facility] Urine URINE SPECIMEN OBTAINED BY CLEAN CATCH PROCEDURE / Unknown Collection / Unknown 05/20/2020 5:31 PM CDT 05/20/2020 5:37 PM CDT Shalonda Nuñez MD URINE ORDERABLES [facility] CLIA# [id number] [address] [place] [address] * CT ABDOMEN PELVIS W CONTRAST (05/20/2020 5:28 PM CDT) Anatomical Region Laterality Modality Abdomen Computed Tomogra phy 05/20/2020 5:29 PM CDT Impressions 05/20/2020 8:14 PM CDT IMPRESSION: ?? Status post colectomy with J-pouch reconstruction. No evidence of bowel obstruction. The bowel gas pattern is similar to 07/26/2012. Cholelithiasis without biliary dilatation. The examination was performed with the adjustment of mA according to the patient size and/or the use of Iterative Reconstruction Technique. DICTATION LOCATION: Location 1 - [facility] Narrative 05/20/2020 8:[address] OF THE ABDOMEN AND PELVIS WITH INTRAVENOUS CONTRAST DATE: 05/20/2020 5:28 PM HISTORY: Abdominal pain, fever, abscess suspected. ?? See Reason for Exam. COMPARISON: 07/26/2012. TECHNIQUE: Spiral volumetric acquisition of the abdomen and pelvis was performed with intravenous contrast. Gastrointestinal contrast was not utilized. CONTRAST: IOPAMIDOL 61 % INTRAVENOUS SOLUTION (MULTI-DOSE BULK PACK) Given:120 mL. FINDINGS: Images of the lung bases demonstrate mild left basilar atelectasis or minimal infiltrate. Images of the abdomen demonstrate the liver, spleen, adrenal glands, and pancreas to be within normal limits. The patient is status post cholecystectomy. No biliary dilatation is seen. The kidneys are functioning without evidence of hydronephrosis. An 8 mm low-attenuation right superior pole renal lesion is seen too small to characterize but unchanged. A few additional smaller low-attenuation renal lesions are seen too small to characterize as well. No adenopathy or ascites is present. Mild degenerative change of the lumbar spine is noted. The patient is status post colectomy with J-pouch reconstruction. An air and fluid-filled loop of bowel is noted in the right upper quadrant extending to the rectum. This is similar to previous exam. No evidence of bowel obstruction is seen. Stringy infiltration of the fat within the left pelvis adjacent to surgical clips of the bowel are noted consistent with postoperative change. This is stable. Images of the pelvis demonstrate no adenopathy or ascites. The urinary bladder is mildly distended. The prostate gland is not enlarged. The patient is status post total left hip prosthesis. INCIDENTAL FINDINGS: ??None. Procedure Note Krystnya Hood MD - 05/20/2020 CT OF THE ABDOMEN AND PELVIS WITH INTRAVENOUS CONTRAST DATE: 05/20/2020 5:28 PM HISTORY: Abdominal pain, fever, abscess suspected. See Reason for Exam. COMPARISON: 07/26/2012. TECHNIQUE: Spiral volumetric acquisition of the abdomen and pelvis was performed with intravenous contrast. Gastrointestinal contrast was not utilized. CONTRAST: IOPAMIDOL 61 % INTRAVENOUS SOLUTION (MULTI-DOSE BULK PACK) Given:120 mL. FINDINGS: Images of the lung bases demonstrate mild left basilar atelectasis or minimal infiltrate. Images of the abdomen demonstrate the liver, spleen, adrenal glands, and pancreas to be within normal limits. The patient is status post cholecystectomy. No biliary dilatation is seen. The kidneys are functioning without evidence of hydronephrosis. An 8 mm low-attenuation right superior pole renal lesion is seen too small to characterize but unchanged. A few additional smaller low-attenuation renal lesions are seen too small to characterize as well. No adenopathy or ascites is present. Mild degenerative change of the lumbar spine is noted. The patient is status post colectomy with J-pouch reconstruction. An air and fluid-filled loop of bowel is noted in the right upper quadrant extending to the rectum. This is similar to previous exam. No evidence of bowel obstruction is seen. Stringy infiltration of the fat within the left pelvis adjacent to surgical clips of the bowel are noted consistent with postoperative change. This is stable. Images of the pelvis demonstrate no adenopathy or ascites. The urinary bladder is mildly distended. The prostate gland is not enlarged. The patient is status post total left hip prosthesis. INCIDENTAL FINDINGS: None. IMPRESSION: Status post colectomy with J-pouch reconstruction. No evidence of bowel obstruction. The bowel gas pattern is similar to 07/26/2012. Cholelithiasis without biliary dilatation. The examination was performed with the adjustment of mA according to the patient size and/or the use of Iterative Reconstruction Technique. DICTATION LOCATION: Location 1 - [facility] Shalonda Nuñez MD CT ORDERABLES * (ABNORMAL) COMPREHENSIVE METABOLIC PANEL (05/20/2020 4:21 PM CDT) SODIUM 139 136 - 145 mmol/L 05/20/2020 5:11 PM CDT [employer] [facility] - [facility] POTASSIUM 4.1 3.5 - 5.0 mmol/L 05/20/2020 5:11 PM CDT [facility] CHLORIDE 103 98 - 107 mmol/L 05/20/2020 5:11 PM CDT [facility] CO2 26 22 - 29 mmol/L 05/20/2020 5:11 PM CDT [facility] CALCIUM 8.9 8.6 - 10.2 mg/dL 05/20/2020 5:11 PM CDT [facility] BUN 14 6 - 20 mg/dL 05/20/2020 5:11 PM CDT [facility] CREATININE 1.15 0.67 - 1.17 mg/dL 05/20/2020 5:11 PM CDT [facility] GLUCOSE 139(H) 74 - 99 mg/dL 05/20/2020 5:11 PM CDT [facility] TOTAL PROTEIN 7.4 6.7 - 8.6 g/dL 05/20/2020 5:11 PM CDT [facility] HOSPITAL LABORATORY SERVICES [facility]. [facility] ALBUMIN 4.0 3.5 - 5.2 g/dL 05/20/2020 5:11 PM CDT [facility] BILIRUBIN TOTAL 0.3 0.3 - 1.2 mg/dL 05/20/2020 5:11 PM CDT [facility] ALKALINE PHOSPHATASE 73 40 - 129 U/L 05/20/2020 5:11 PM CDT [facility] AST 45(H) <41 U/L 05/20/2020 5:11 PM CDT [facility] ALT 49(H) <42 U/L 05/20/2020 5:11 PM CDT [facility] GFR >60 >=60 mL/min/1.7 3 sq meter 05/20/2020 5:11 PM CDT [facility] Comment: eGFR has not been validated for use in the elderly (> 70 years of age), women, patients with serious co-morbid conditions, or persons with extremes of body size or muscle mass and should also be interpreted with caution in patients with acute kidney failure, dialysis dependent patients, patients reporting exceptional dietary intake (e.g. vegetarian diet, high protein diets, creatine supplementation), and patients with severe liver disease. Based on National Kidney Disease Education Program If patient is , please refer to the GFR result. GFR, >60 >=60 mL/min/1.7 3 sq meter 05/20/2020 5:11 PM CDT [facility] ANION GAP 10 8 - 16 mmol/L 05/20/2020 5:11 PM T [facility] Blood Venipuncture / Unknown 05/20/2020 4:21 PM CDT 05/20/2020 4:30 PM CDT Narrative [facility] - 05/20/2020 5:11 PM CDT Samples containing indocyanine green cause interferences on Total and/or Direct Bilirubin and must not be measured. Shalonda Nuñez MD CHEMISTRY ORDERABLES [id number] [address] [facility] NE[place]IF[place]ES [id number] * (ABNORMAL) CBC WITH DIFFERENTIAL (05/20/2020 4:21 PM CDT) [facility] WBC 6.1 4.0 - 9.8 K/uL 05/20/2020 4:50 PM CDT [facility] RBC 6.08(H) 4.50 - 5.40 M/uL 05/20/2020 4:50 PM CDT [facility] HEMOGLOBIN 16.3 13.6 - 16.5 g/dL 05/20/2020 4:50 PM CDT [facility] HEMATOCRIT 53.0(H) 40.0 - 48.0 % 05/20/2020 4:50 PM CDT [facility] MCV 87.2 82.0 - 99.0 fL 05/20/2020 4:50 PM CDT [facility] MCH 26.8(L) 27.2 - 32.6 pg 05/20/2020 4:50 PM CDT [facility] MCHC 30.8(L) 31.5 - 35.5 g/dL 05/20/2020 4:50 PM CDT [facility] RDW 14.0 11.5 - 14.5 % 05/20/2020 4:50 PM CDT [facility] RDW-STDEV 44.1 37.1 - 48.7 fL 05/20/2020 4:50 PM CDT [facility] PLATELETS 345 140 - 350 K/uL 05/20/2020 4:50 PM CDT [facility] MPV 10.0 9.3 - 12.4 fL 05/20/2020 4:50 PM CDT [facility] NEUTROPHILS 74 % 05/20/2020 4:50 PM CDT [facility] LYMPHOCYTES 16 % 05/20/2020 4:50 PM CDT [facility] MONOCYTES 8 % 05/20/2020 4:50 PM CDT [facility] EOSINOPHILS 1 % 05/20/2020 4:50 PM CDT [facility] BASOPHILS 1 % 05/20/2020 4:50 PM CDT [facility] IMMATURE GRANULOCYTES 1 % 05/20/2020 4:50 PM CDT [facility] EMILY Comment:IG (Immature Granulo cyte) count includes Metamyelocytes, Myelocytes, and Promyelocytes NEUTROPHIL ABSOLUTE 4.46 1.90 - 7.00 K/uL 05/20/2020 4:50 PM CDT [facility] LYMPHOCYTE ABSOLUTE 0.98 0.70 - 4.50 K/uL 05/20/2020 4:50 PM CDT [facility] MONOCYTE ABSOLUTE 0.49 0.10 - 1.30 K/uL 05/20/2020 4:50 PM CDT [facility] LABORATORY SERVICES [facility] EOSINOPHIL ABSOLUTE 0.07 0.00 - 0.70 K/uL 05/20/2020 4:50 PM CDT [facility] LABORATORY SERVICES [facility] BASOPHILS ABSOLUTE 0.03 0.00 - 0.20 K/uL 05/20/2020 4:50 PM CDT [facility] LABORATORY SERVICES [facility] IMMATURE GRANULOCYTES ABSOLUTE 0.03 0.00 - 0.03 K/uL 05/20/2020 4:50 PM CDT [facility] Blood Venipuncture / Unknown 05/20/2020 4:21 PM CDT 05/20/2020 4:30 PM CDT Shalonda Nuñez MD HEMATOLOGY ORDERABLE S [facility]# [id number] [address] [place] [address] documented in this encounter Visit Diagnoses Diagnosis Ulcerative pancolitis with complication- Primary documented in this encounter Administered Medications Inactive Administered Medications - up to 3 most recent administrations Medication Order MAR Action Action Date Dose Rate Site iopamidoL (ISOVUE-300) 61 % injection (drawn from multi-use bulk pack) 120 mL 120 mL, IV, INTRA-PROCEDURE ONCE, 1 dose, Starting on Mon05/20/20 at 1717, Until Mon05/20/20 at 1729, Routine Contrast Given 05/20/2020 5:29 PM CDT 120 mL sodium chloride flush injection 10 mL 10 mL, IV, ONE TIME ONLY, 1 dose, On Mon05/20/20 at 1730, Routine Given 05/20/2020 5:29 PM CDT 10 mL documented in this encounter Active and Recently Administered Medications Times are shown in CDT. Scheduled Medication Order 05/18/2020 05/19/2020 05/20/2020 iopamidoL (ISOVUE-300) 61 % injection (drawn from multi-use bulk pack) 120 mL (COMPLETED) 120 mL, IV, INTRA-PROCEDURE ONCE, 1 dose, Starting on Mon05/20/20 at 1717, Until Mon05/20/20 at 1729, Routine 1729 (Contrast Given - Provider: RT Willi) sodium chloride flush injection 10 mL (COMPLETED) 10 mL, IV, ONE TIME ONLY, 1 dose, On Mon05/20/20 at 1730, Routine 1729 (Given - Provid er: RT Willi) documented in this encounter Care Teams Crop Adjuster Relationship Specialty Start Date End Date Jasiel Freeman MD [address] [place] [phone] PCP - General Family Practice 08/15/17 documented as of this encounter
--- OUTSIDE RECORDS SUMMARY | 2024-10-24 05:30 | XMS_ITS | Encounter Summary ---
Author Organization [facility] Address [address] [place] [address] Care Team Providers Care Alfalfa Dehydrator Operator Name Role Phone Jasiel Freeman MD Primary Care Provider Reason for Visit * Reason Onset Date Comments IV Med 03/11/2020 Called patient f or 48 hour post infusion follow up. Pt reports that they are feeling well, no side effects or adverse events after their infusion. Denies any new symptoms or concerns. Instructed to call if any questions/concerns arise. Has [facility] and MD contact information. Encounter Details Date Type Department Care Team (Late st Contact Info) Description 03/11/2020 Telephone [facility] Specialty and Home Infusion - [address] [place] [address] Irina Wyatt RN IV Med (Called [...] Description 02/13/2025 10:30 AM CDT Office Visit [facility] IBD and Gastroenterology Center [place] [address] [facility] [address] [place] [phone] Kitty Dover, MIRTA [address] [facility] [address] [place] [phone] documented as of this encounter Visit Diagnoses Not on filedocumented in this encounter Care Teams Alfalfa Dehydrator Operator Relationship Specialty Start Date End Date Jasiel Freeman MD [address] [place] [phone] PCP - General Family Practice 08/15/17 documented as of this encounter
--- OUTSIDE RECORDS SUMMARY | 2024-10-24 05:30 | XMS_ITS | Encounter Summary ---
Author Organization [facility] Address [address] [place] [address] Care Team Providers Care Retail Attendant Name Role Phone Jasiel Freeman MD Primary Care Provider Encounter Details Date Type Department Care Team (Late st Contact Info) Description 10/21/2020 [facility] [address] [place] [address] Thanh Solares, PHARMACIST Social History [...] Progress Notes * Thanh Solares, PHARMACIST - 10/21/2020 8:26 AM CST Images from the original note were not included. [facility] Home Infusion Order Edgardo Palomino Brittni 50 y.o. / male Patient's address (May not be service address): [address] [place] [address] Order Date: 10/20/2020 Order(s): Continue Entyvio 300mg IV every 8 weeks Per: Caren Whitney MD Generic substitution permitted for medications unless otherwise specified Order taken by Thanh Solares, PHARMACIST [facility] Specialty & Home Infusion [facility] [address] [place] [address] Edgardo Palomino Thyer 50 y.o. / male Patient's address on file: [address] [facility] [address] Home Phone Work Phone Home Infusion Order [...] (through 05/26/19) Per: Caren / KESHA Whitney [facility] Gastroenterology [address], [address] [facility] [address] Generic substitution permitted Detailed Home Infusion Orders [...] take any ordered labs to [facility] when possible. If labs are not taken to a [facility] lab, it is the responsibility of nursing to make sure labs are faxed to the pharmacy at [phone] Whitney. Catheter Care Catheter type: PIV placed by PLANT ANATOMY TEACHER prior to each infusion Flush IV catheter [...] complications. ?? Flushes provided by [facility] Specialty and Infusion pharmacy are for [...] y.o. male) is active with [facility] Specialty and Infusion services receiving Entyvio every 8 weeks at home for ulcerative colitis. ?? Edgardo is due for his next infusion this week. Pharmacist contacted PLANT ANATOMY TEACHER to coordinate delivery. RN will coal picker today. Patient received last infusion without [...] RDS 08/19/19 - Confirmed with the nurse manager rn case that the patient was scheduled to receive [...] [facility] Home Infusion Care Team IV Pharmacy: [facility] / [phone] Nursing Agency: [facility] Physician(s): Dr. Whitney Additional Relevant Data Insurance Information: Payor: RX [facility] / Plan: RX [employer] ADVANCE PARADIGM / Product Type: RX [employer] / IV access PIV placed by PLANT ANATOMY TEACHER prior to each infusion Ht Readings from [...] level: Not on file Occupational History Employer: [employer] Employer: [employer] Social Needs ??? Financial [...] file Gets together: Not on file Attends roman catholic service: Not on file Active member of [...] by intraveous injection see administration instructions. Home PLANT ANATOMY TEACHER to administer over 30 minutes every 8 [...] Provided to Patient ?? Pharmacist offer to beauty counselor ?? RN instruction ?? Printed teaching sheets ?? Drug information paperwork - EH patient leaflet FADI Silverman [facility] Specialty & Infusion - [place] [address] [place] [address] , [address] [place] [address] DRIVER documented in this encounter Plan of Treatment Upcoming Encounters Date Type Department Care Team (Late st Contact Info) Description 02/13/2025 10:30 AM CDT Office Visit [facility] IBD and Gastroenterology Center [place] [address] [facility] [address] [place] [address] Kitty Dover ANP [address] [facility] 100 [place] [address] documented as of this encounter Visit Diagnoses Not on filedocumented in this encounter Care Teams Retail Attendant Relationship Specialty Start Date End Date Jasiel Freeman MD [address] [place] [phone] PCP - General Family Practice 08/15/17 documented as of this encounter
--- OUTSIDE RECORDS SUMMARY | 2024-10-24 05:30 | XMS_ITS | Encounter Summary ---
Author Organization [facility] Address [address] [place] [address] Care Team Providers Care Engineer Intern Name Role Phone Jasiel Freeman MD Primary Care Provider Reason for Visit * Reason Onset Date Comments Medication Refill Medication Refill 04/05/2021 Encounter Details Date Type Department Care Team (Late st Contact Info) Description 11/25/2020 Refill [facility] Gastroenterology [facility] [address] [facility] [address] [place] [address] Annette Whitney MD [address] [facility] [address] [place] [address] Social History Tobacco Use Types Packs/Day Years [...] [facility] IBD and Gastroenterology Center [place] [address] [facility] 180 [place] [address] Kitty Dover, MIRTA [address] [facility] 100 [place] [address] documented as of this encounter Visit Diagnoses Not on filedocumented in this encounter Care Teams Engineer Intern Relationship Specialty Start Date End Date Jasiel Freeman MD [address] [place] [phone] PCP - General Family Practice 08/15/17 documented as of this encounter
--- OUTSIDE RECORDS SUMMARY | 2024-10-24 05:30 | XMS_ITS | Encounter Summary ---
Author Organization [facility] Address [address] [facility] [address] Laurenn: [place] [address] Care Team Providers Care Clinical Administrator Name Role Phone Jasiel Freeman MD Primary Care Provider [phone] Encounter Details Date Type Department Care Team (Latest Contact Info) Description 06/06/2020 Travel Social History Tobacco Use Types Packs/Day [...] have Coronavirus / COVID-19? No / Unsure 06/06/2020 9:58 AM CDT documented as of this encounter Plan of Treatment Upcoming Encounters Date Type Department Care Team (Late st Contact Info) Description 02/13/2025 10:30 AM CDT Office Visit [facility] IBD and Gastroenterology Center [place] [address] [place] [address] Kitty Dover, ANP [address] [facility] 100 [place] [phone] documented as of this encounter Visit Diagnoses Not on filedocumented in this encounter Care Teams Clinical Administrator Relationship Specialty Start Date End Date Jasiel Freeman MD [address] [place] [phone] PCP - General Family Practice 08/15/17 documented as of this encounter
--- OUTSIDE RECORDS SUMMARY | 2024-10-24 05:30 | XMS_ITS | Encounter Summary ---
Author Organization [facility] Address [address] Laurenn: [place] [address] Care Team Providers Care Assembly Person Name Role Phone Jasiel Freeman MD Primary Care Provider Encounter Details Date Type Department Care Team (Latest Contact Info) Description 06/11/2020 Travel Social History Tobacco Use Types Packs/Day [...] have Coronavirus / COVID-19? No / Unsure 06/11/2020 10:22 AM CDT documented as of this encounter Plan of Treatment Upcoming Encounters Date Type Department Care Team (Late st Contact Info) Description 02/13/2025 10:30 AM CDT Office Visit [facility] IBD and Gastroenterology Center [place] [address] [place] [address] Kitty Dover, ANP [address] [facility] 100 [place] [phone] documented as of this encounter Visit Diagnoses Not on filedocumented in this encounter Care Teams Assembly Person Relationship Specialty Start Date End Date Jasiel Freeman MD [address] [place] [phone] PCP - General Family Practice 08/15/17 documented as of this encounter
--- OUTSIDE RECORDS SUMMARY | 2024-10-24 05:30 | XMS_ITS | Encounter Summary ---
Author Organization [facility] Address [address] [place] [address] Care Team Providers Care Slitter Operator Name Role Phone Jasiel Freeman MD Primary Care Provider Reason for Visit * Reason Onset Date Comments Medication Refill 10/22/2020 Encounter Details Date Type Department Care Team (Late st Contact Info) Description 10/22/[address] [facility] Gastroenterology [facility] [address] [facility] [address] [place] [address] Annette Whitney MD [address] [facility] [address] DIV [place] [address] Social History Tobacco Use Types Packs/Day Years [...] encounter Miscellaneous Notes * Telephone Encounter - Cary Saravia - 10/22/2020 12:47 PM CST LAST OV 05/11 ROV NONE ANALYST documented in this encounter Plan of Treatment Upcoming Encounters Date Type Department Care Team (Late st Contact Info) Description 02/13/2025 10:30 AM CDT Office Visit [facility] IBD and Gastroenterology Center [place] [address] [place] [address] Kitty Dover, MIRTA [address] [place] [address] documented as of this encounter Visit Diagnoses Not on filedocumented in this encounter Care Teams Slitter Operator Relationship Specialty Start Date End Date Jasiel Freeman MD [address] [place] [phone] PCP - General Family Practice 08/15/17 documented as of this encounter
--- OUTSIDE RECORDS SUMMARY | 2024-10-24 05:30 | XMS_ITS | Encounter Summary ---
Author Organization [facility] Address [address] [place] [address] Care Team Providers Care Cement Boat And Barge Loader Name Role Phone Jasiel Freeman MD Primary Care Provider Reason for Referral * Outpatient Services (Routine) - Closed Specialty Diagnoses / Procedures Referred By Contalka t Referred To Contact Pharmacy Diagnoses Ulcerative pancolitis without complication Procedures INFUSION THERAPY Annette Whitney MD [address] [facility] [place] [address] [facility] Specialty And Home Infusion [address] [place] [address] Referral ID Status Reason Start Date Expiration Date Visits Re quested Visits Authorized [id number] Closed 06/15/2020 07/16/2021 1 1 Encounter Details Date Type Department Care Team (Late st Contact Info) Description 06/15/2020 Orders Only [facility] Gastroenterology [facility] [address] [facility] [address] [place] [address] Annette Whitney MD [address] [facility] [place] [address] Ulcerative pancolitis without complication (Primary [...] have Coronavirus / COVID-19? No / Unsure 06/12/2020 6:57 AM CDT documented as of this encounter Plan of Treatment Upcoming Encounters Date Type Department Care Team (Late st Contact Info) Description 02/13/2025 10:30 AM CDT Office Visit [facility] IBD and Gastroenterology Center [place] [address] [place] [phone] Kitty Dover ANP [address] [place] [address] documented as of this encounter Visit Diagnoses Diagnosis Ulcerative pancolitis without complication- Primary documented in this encounter Care Teams Cement Boat And Barge Loader Relationship Specialty Start Date End Date Jasiel Freeman MD [address] [place] [phone] PCP - General Family Practice 08/15/17 documented as of this encounter
--- OUTSIDE RECORDS SUMMARY | 2024-10-24 05:30 | XMS_ITS | Encounter Summary ---
Author Organization [facility] Address [address] [place] [address] Care Team Providers Care Infantry Senior Sergeant Name Role Phone Jasiel Freeman MD Primary Care Provider Reason for Visit * Reason Onset Date Comments Home Visit 11/19/2019 Encounter Details Date Type Department Care Team (Late st Contact Info) Description 11/19/2019 Patient Outreach [facility] [address] [address] Irina Wyatt, JIE Home Visit Social History Tobacco Use Types [...] Sign Reading Time Taken Comments Blood Pressure 134/88 11/19/2019 1:15 PM EXCAVATING MACHINE OPERATOR Pulse 99 11/19/2019 2:00 PM EXCAVATING MACHINE OPERATOR Temperature 36.2 ??C (97.1 ??F) 11/19/2019 2:00 PM CS T Respiratory Rate 16 11/19/2019 2:00 PM EXCAVATING MACHINE OPERATOR Oxygen Saturation 96% 11/19/2019 2:00 PM EXCAVATING MACHINE OPERATOR Inhaled Oxygen Concentration - - Weight - - Height - - Body Mass Index - - documented in this encounter Miscellaneous Notes * Telephone Encounter - Irina Wyatt RN - 11/21/2019 9:54 PM CST Images from the original note were not included. [facility] [address] [facility] [employer] [address] [place] [address] Home Infusion NURSING follow up Leonidas Edgardoisaiah Elkins 1970 [address] [facility] [address] 11/19/19 Provider - Irina Wyatt RN Driving start 1205 Driving end 1305 Visit start 1305 Visit end 1415 [address] 47 Contact numbers provided including after hours numbers [...] patient/ caregiver response to instruction - understood. Current Outpatient Medications on File Prior to Visit Medication Sig Dispense Refill ??? Syringe with Needle, Disp, (BD Luer-Jesusita Syringe) 3 mL 23 gauge x 1 1/2 Syringe For use with B12 injections 12 Each 2 ??? ergocalciferol (VITAMIN D2) 50,000 unit capsule Take 1 Capsule (50,000 Units) by mouth every 2 weeks. 8 Capsule 2 ??? diphenoxylate-atropine (LOMOTIL) 2.5-0.025 mg tablet Take 1 Tablet by mouth 4 times daily as needed for Diarrhea/Loose Stools. 60 Tablet 1 ??? cyanocobalamin (VITAMIN B-12) 1,000 mcg/mL Solution [...] by intraveous injection see administration instructions. Home VISITING TEACHER to administer over 30 minutes every 8 weeks. 300 mg 3 ??? TESTOSTERONE, BULK, MISC 1 mL by Misc.(Non-Drug; Combo Route) route. No current facility-administered medications on file prior to visit. No problem observed with learning needs - No cultural, confucianism, or language barriers to learning Patient and CG are motivated to learn Patient and CG are willing and accepting of necessary care Patient Active Problem List Diagnosis Code ??? Hyponatremia E87.1 ??? Abdominal pain R10.9 ??? Ulcerative colitis K51.90 ??? Pouchitis K91.850 ??? Acute bronchitis J20.9 ??? SIRS (systemic inflammatory response syndrome) R65.10 ??? Metabolic acidosis E87.2 ??? Sepsis(995.91) A41.9 ??? JORGE (acute kidney injury) N17.9 ??? Protein calorie malnutrition E46 ??? Malnutrition E46 ??? Abdominal pain R10.9 ??? Inflammatory bowel disease K52.9 ??? Vitamin D deficiency E55.9 Physical Exam Constitutional: oriented to person, place, [...] and dry. Psychiatric: normal mood and affect. Wt Readings from Last 3 Encounters: 11/13/19 88.4 kg (194 lb 12.8 oz) 07/31/19 86.5 kg (190 lb 12.8 oz) 01/29/19 85.8 kg (189 lb 3.2 oz) Temp Readings from Last 3 Encounters: 09/23/19 97.7 ??F (36.5 ??C) 08/23/19 97 ??F (36.1 ??C) 08/08/19 97.8 ??F (36.6 ??C) (Oral) BP Readings from Last 3 Encounters: 11/13/19 (!) 138/90 09/23/19 124/82 08/23/19 (!) 122/94 Pulse Readings from Last 3 Encounters: 11/13/19 (!) 102 09/23/19 85 08/23/19 78 Resp Readings from Last 3 Encounters: 09/23/19 16 08/23/19 16 08/08/19 18 1. alf assessment and implementation of infusion therapy. Teaching [...] knows how to reorder medications. [facility] will dispense [...] in approximately 8 weeks for Entyvio infusion VATING MACHINE OPERATOR documented in this encounter Plan of Treatment Upcoming Encounters Date Type Department Care Team (Late st Contact Info) Description 02/13/2025 10:30 AM CDT Office Visit [facility] [place] [address] [place] [address] Kitty Dover ANP [address] [place] [address] [place] [address] documented as of this encounter Visit Diagnoses Not on filedocumented in this encounter Care Teams Infantry Senior Sergeant Relationship Specialty Start Date End Date Jasiel Freeman MD [address] [place] [phone] PCP - General Family Practice 08/15/17 documented as of this encounter
--- OUTSIDE RECORDS SUMMARY | 2024-10-24 05:30 | XMS_ITS | Encounter Summary ---
Author Organization [facility] Address [address] [place] [address] Care Team Providers Care Aviation Engineer Name Role Phone Jasiel Freeman MD Primary Care Provider Encounter Details Date Type Department Care Team (Late st Contact Info) Description 12/07/2020 Orders Only [facility] G[facility] [place] A [address] [place] [address] Annette Whitney MD [address] [facility] [place] [address] Ulcerative pancolitis without complication (Primary Dx) Social [...] Office Visit [facility] [place] [address] [place] [address] Kitty Dover ANP [address] [place] [address] [place] [address] documented as of this encounter Results * MISCELLANEOUS LAB TEST (12/09/2020 9:31 AM DIRECTOR OF ELEMENTARY EDUCATION) MISCELLANEOUS LAB TEST 3.2 ug/mL NON [facility] Comment:vedolizumab level SPECIMEN TYPE blood NON [facility] MISCELLANEOUS LAB TEST <25 ng NON [facility] Comment:Anti-Vedolizumab Ant ibody Blood 12/09/2020 9:31 AM DIRECTOR OF ELEMENTARY EDUCATION Annette Whitney MD CHEMISTRY [place] NON [facility] documented in this encounter Visit Diagnoses Diagnosis Ulcerative pancolitis without complication- Primary documented in this encounter Care Teams Aviation Engineer Relationship Specialty Start Date End Date Jasiel Freeman MD [address] [place] [phone] PCP - General Family Practice 08/15/17 documented as of this encounter
--- OUTSIDE RECORDS SUMMARY | 2024-10-24 05:30 | XMS_ITS | Encounter Summary ---
Author Organization [facility] Address [address] [place] [address] Care Team Providers Care Senior Staff Accountant Name Role Phone Jasiel Freeman MD Primary Care Provider Reason for Visit * Reason Onset Date Comments Home Visit 12/09/2020 Encounter Details Date Type Department Care Team (Late st Contact Info) Description 12/09/2020 Patient Outreach [facility]fusion - [address] [place] [address] Irina Wyatt, RN Home Visit [...] Sign Reading Time Taken Comments Blood Pressure 138/80 12/09/2020 3:30 PM MANAGER DEPARTMENT Pulse 81 12/09/2020 3:30 PM MANAGER DEPARTMENT Temperature 37.2 ??C (99 ??F) 12/09/2020 3:30 PM MANAGER DEPARTMENT Respiratory Rate 16 12/09/2020 3:30 PM MANAGER DEPARTMENT Oxygen Saturation 96% 12/09/2020 3:30 PM MANAGER DEPARTMENT Inhaled Oxygen Concentration - - Weight - - Height - - Body Mass Index - - documented in this encounter Miscellaneous Notes * Telephone Encounter - Irina Wyatt RN - 12/10/2020 10:02 AM CST [facility] [address] [place] [address] Home Infusion NURSING follow up Leonidas Elkins 1970 [address] [facility] [address] Provider - Irina Wyatt RN 12/09/20 Visit start 1430 Visit end 1540 Contact [...] observed with learning needs - No cultural, jewish, or language barriers to learning Patient and CG are motivated to learn Patient and CG are willing and accepting of necessary care Physical Exam Constitutional: oriented to person, place, and time. appears well-developed and well-nourished. Head: Normocephalic and atraumatic. Neck: Normal range of motion. Cardiovascular: Normal rate Pulmonary/Chest: Effort normal Abdominal: Soft. Normal appearance and bowel sounds are normal. There is no tenderness. GI/: clear yellow urine, BM without difficulty, no concerns Musculoskeletal: Normal range of motion. Neurological: alert and oriented to person, place, and time. Skin: Skin is warm and dry. Psychiatric: normal mood and affect. 1. prison assessment and implementation of infusion therapy. Teaching [...] reactions. Patient knows how to reorder medications. [facility] will dispense [...] in approximately 8 weeks for Entyvio infusion GER DEPARTMENT documented in this encounter Plan of Treatment Upcoming Encounters Date Type Department Care Team (Late st Contact Info) Description 02/13/2025 10:30 AM CDT Office Visit [facility] [place] [address] [place] [address] Kitty Dover ANP [address] [place] [address] [place] [address] documented as of this encounter Visit Diagnoses Not on filedocumented in this encounter Care Teams Senior Staff Accountant Relationship Specialty Start Date End Date Jasiel Freeman MD [address] [place] [phone] PCP - General Family Practice 08/15/17 documented as of this encounter
--- OUTSIDE RECORDS SUMMARY | 2024-10-24 05:30 | XMS_ITS | Encounter Summary ---
Author Organization [facility] Address [address] [place] [address] Care Team Providers Care Merchandise Displayer Name Role Phone Jasiel Freeman MD Primary Care Provider Encounter Details Date Type Department Care Team (Latest Contact Info) Description 05/20/2020 12:40 PM CDT - 05/20/2020 11:59 PM CDT Hospital Encounter [facility] [place] A [address] [place] [address] Gilma Marcos PA [address] [facility] [address] [place] [phone] Discharge Disposition: Home or Self Care Social [...] by intraveous injection see administration instructions. Home BODY TRIMMER UPHOLSTERER to administer over 30 minutes every 8 weeks. 300 mg 3 07/31/2019 11/14/2022 documented as of this encounter Plan of Treatment Upcoming Encounters Date Type Department Care Team (Late st Contact Info) Description 02/13/2025 10:30 AM CDT Office Visit [facility] [place] [address] [place] [address] Stanislaw Kittysalvatore Aguero, ANP [address] [place] [address] documented as of this encounter Procedures Procedure Name Priority Date/Time Associated Diagnosis Comments XR ABDOMEN ACUTE SERIES W CXR Routine 05/20/2020 1:02 PM CDT Abdominal distention Ulcerative pancolitis without complication Pouchitis documented in this encounter Results * XR ABDOMEN ACUTE [...] 2. Clear lungs. DICTATION LOCATION: Location 2 - [facility] Narrative 05/20/2020 3:32 PM CDT EXAMINATION: XR [...] small bowel are seen. Procedure Note Chao Sy DO - 05/20/2020 EXAMINATION: XR ABDOMEN ACUTE SERIES [...] free air. 2. Clear lungs. DICTATION LOCATION: [address] [place] [facility] documented in this encounter Visit Diagnoses Diagnosis Abdominal distention Flatulence, eructation, and gas pain Ulcerative pancolitis without complication Pouchitis documented in this encounter Care Teams Merchandise Displayer Relationship Specialty Start Date End Date Jasiel Freeman MD [address] [place] [phone] PCP - General Family Practice 08/15/17 documented as of this encounter
--- OUTSIDE RECORDS SUMMARY | 2024-10-24 05:30 | XMS_ITS | Encounter Summary ---
Author Organization [facility] Address [address] [place] [address] Care Team Providers Care Maintenance Team Member Name Role Phone Jasiel Freeman MD Primary Care Provider Reason for Visit * Reason Onset Date Comments Home Visit 01/13/2020 Encounter Details Date Type Department Care Team (Late st Contact Info) Description 01/13/2020 Patient Outreach [facility]fusion - [address] [place] [address] Irina Wyatt, RN Home Visit [...] Sign Reading Time Taken Comments Blood Pressure 150/98 01/13/2020 2:55 PM CDT Pulse 80 01/13/2020 2:55 PM CDT Temperature 35.6 ??C (96 ??F) 01/13/2020 1:45 PM CDT Respiratory Rate 16 01/13/2020 2:55 PM CDT Oxygen Saturation 96% 01/13/2020 2:55 PM CDT Inhaled Oxygen Concentration - - Weight - - Height - - Body Mass Index - - documented in this encounter Miscellaneous Notes * Telephone Encounter - Irina Wyatt RN - 01/15/2020 11:24 AM CDT Images from the original note were not included. [facility] [address] [place] [address] Home Infusion NURSING follow up Leonidas Elkins 1970 [address] [facility] [address] 01/13/2020 Provider - Irina Wyatt RN Driving start 1240 Driving end 1340 Visit start 1340 Visit end 1505 [address] Contact numbers provided including after [...] by intraveous injection see administration instructions. Home DRY CLEANING ATTENDANT to administer over 30 minutes every 8 weeks. 300 mg 3 ??? TESTOSTERONE, BULK, MISC 1 mL by Misc.(Non-Drug; Combo Route) route. No current facility-administered medications on file prior to visit. No problem observed with learning needs - No cultural, congregation, or language barriers to learning Patient and [...] oz) Temp Readings from Last 3 Encounters: 11/19/19 97.1 ??F (36.2 ??C) 09/23/19 97.7 ??F (36.5 ??C) 08/23/19 97 ??F (36.1 ??C) BP Readings from Last 3 Encounters: 11/19/19 134/88 11/13/19 (!) 138/90 09/23/19 124/82 Pulse Readings from Last 3 Encounters: 11/19/19 99 11/13/19 (!) 102 09/23/19 85 Resp Readings from Last 3 Encounters: 11/19/19 16 09/23/19 16 08/23/19 16 1. FPC assessment and implementation of infusion therapy. Teaching [...] reactions. Patient knows how to reorder medications. [facility] will dispense [...] 02/13/2025 10:30 AM CDT Office Visit [facility] [place] [address] [place] [address] Kitty Dover ANP [address] [place] [address] [place] [address] documented as of this encounter Visit Diagnoses Not on filedocumented in this encounter Care Teams Maintenance Team Member Relationship Specialty Start Date End Date Jasiel Freeman MD [address] [place] [phone] PCP - General Family Practice 08/15/17 documented as of this encounter
--- OUTSIDE RECORDS SUMMARY | 2024-10-24 05:30 | XMS_ITS | Encounter Summary ---
Author Organization [facility] Address [address] [place] [address] Care Team Providers Care Tool Trouble Shooter Name Role Phone Jasiel Freeman MD Primary Care Provider [phone] Reason for Visit * Reason Onset Date Comments Medication Refill 07/30/2020 Encounter Details Date Type Department Care Team (Late st Contact Info) Description 07/30/2020 Refill [facility] G[facility]ology [facility] [address] [facility] [address] [place] [address] Annette Whitney MD [address] [facility] [address] [place] [address] Social History Tobacco Use Types Packs/Day Years [...] encounter Miscellaneous Notes * Telephone Encounter - Ada Tan - 07/30/2020 9:59 AM CDT TEQUILA 05/20/20 Scope 06/12/20 documented in this encounter Plan of Treatment Upcoming Encounters Date Type Department Care Team (Late st Contact Info) Description 02/13/2025 10:30 AM CDT Office Visit [facility] [place] [address] [place] [address] Kitty Dover, ANP [address] [place] [address] documented as of this encounter Visit Diagnoses Not on filedocumented in this encounter Care Teams Tool Trouble Shooter Relationship Specialty Start Date End Date Jasiel Freeman MD [address] [place] [phone] PCP - General Family Practice 08/15/17 documented as of this encounter
--- OUTSIDE RECORDS SUMMARY | 2024-10-24 05:30 | XMS_ITS | Encounter Summary ---
Author Organization [facility] Address [address] [place] [address] Care Team Providers Care Educational Speech Language Clinician Name Role Phone Jasiel Freeman MD Primary Care Provider [phone] Reason for Referral * Eval and Treat (Routine) - Closed Specialty Diagnoses / Procedures Referred By Contact Referred To Contact Gastroenterology / Perioperative Diagnoses Ulcerative pancolitis with other complication Annette Whitney MD 1 [facility] [place] [address] Annette Whitney MD 1 [facility] [place] [address] Referral ID Status Reason Start Date Expiration Date V isits Requested Visits Authorized [id number] Closed CRS To Schedule (STL) 05/26/2020 05/26/2021 3 3 Reason for Visit * Reason Comments Crohn's Disease Encounter Details Date Type Department Care Team (Latest Contact Info) Description 04/29/2020 2:50 PM CDT Office Visit [facility] G[facility]ology [facility] [address] [facility] [address] [place] [address] Annette Whitney MD [address] [facility] [address] DIV [place] [address] Ulcerative pancolitis with other complication (Primary Dx) [...] Sign Reading Time Taken Comments Blood Pressure 130/87 04/29/2020 10:23 AM CDT Pulse 83 04/29/2020 10:23 AM CDT Temperature - - Respiratory Rate - - Oxygen Saturation - - Inhaled Oxygen Concentration - - Weight 84.4 kg (186 lb) 04/29/2020 10:23 AM CDT Height 175.3 cm (5' 9 ) 04/29/2020 10:23 AM CDT Body Mass Index 27.47 04/29/2020 10:23 AM CDT documented in this encounter Progress Notes * Annette Whitney MD - 04/29/2020 10:27 AM CDT Gastroenterology Clinic Follow up Note Patient: Edgardo Elkins / 49 y.o. / male : 1970 Date: 04/29/2020 CSN: [id number] Referring Physician:Jasiel Freeman MD PCP: Jasiel Freeman MD Reason for Consult: Crohn's Disease History of Present Illness: Edgardo Elkins is a 49 y.o. male history of UC s/p colectomy with J-pouch in 2001. He has had problems with pouchitis, in the past he has tried Humira for his pouchitis without much benefit. Most recently he has been on entyvio and has done well with this. His last visit with me was in Oct 2019, We had issues with insurance and delay in Entyvio, and ended up having to reinitiate due to symptoms andlong lag. He is now on the every 8 week dosing. He reports that overall he does well. He uses Lomotil infrequently if he is going to be out. He occasionally has some tenesmus and cramping. Berhane Desai Index General Well-Being: Very well Abdominal Pain: Mild Number of Stools Per Day: 5 Abdominal Mass: None Arthralgia: no Uveitis: No Erythema Nodosum: No Aphthous Ulcers: No Pyoderma Gangrenosum: No Anal fissure: No New Fistula: No Abscess: No SCORE: 6 Disease Ulcerative Colitis Phenotype/extent severe colitis and subsequently severe pouchitis that involved the small intestine??proximal to the pouch Year of diagnosis 2000 Last colonoscopy date and findings 08/24/2017 Pouchoscopy Findings Moderate inflammation of the pouch including the small intestine and distal pouch, rule out neoplasm. Last cross-sectional imaging with results 07/26/2012 FINDINGS: Comparison study is dated 06/26/2012. [...] pelvis. No pelvic mass or lymphadenopathy is seen. Prior medications and reactions Humira, Remicaid, Xifaxin, Ciprofloxacin, Augmentin, vancomycin, prednisone, protonix, Asacol Current medications Entyvio Lomotil Prior Surgeries ??proctocolectomy by Dr. Rizo in 2001 History of c. diff negative tests in chart Last ER visit or hospitalization 07/26/2012 Current Outpatient Medications Medication Sig Dispense Refill [...] ALLERGICREACTION. DISCARD EXCESS 1 mL 0 ??? [DISCONTINUED] ergocalciferol (VITAMIN D2) 50,000 unit capsule Take 1 Capsule (50,000 Units) bymouth every 2 weeks. 8 Capsule 2 ??? [DISCONTINUED] diphenoxylate-atropine (LOMOTIL) 2.5-0.025 mg tablet Take 1 Tablet by mouth 4 times daily as needed for Diarrhea/Loose Stools. 60 Tablet 1 ??? vedolizumab (ENTYVIO) 300 mg Recon Soln Inject 300 mg by intraveous injection see administration instructions. Home TRACK LABORER to administer over 30 minutes every 8 weeks. 300 mg 3 ??? TESTOSTERONE, BULK, MISC 1 mL by Misc.(Non-Drug; Combo Route) route. No current facility-administered medications for this visit. Past Medical History: Diagnosis Date ??? Arthritis ??? Asthma as a child ??? 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 Ulcerative colitis ??? Unspecified adverse effect of anesthesia violent after 1st surgery Review of Systems: Ten of fourteen systems were reviewed. Pertinent GI positives are noted in the HPI. Gen: Denies fever/chills or changes in weight Floyd: Denies PAYTON, paraesthesias ENT: Denies changes in vision, rhinitis CV: Denies CP, PND, orthopena Pulm: Denies SOB, productive cough or prior h/o VTE GI: See HPI MS: Denies arthralgais, myalgias Derm: Denies rashes or lesions. : Denies dysuria or hematuria Heme/Lymph: Denies night sweats, enlarged lymph nodes or abnormal bleeding Physical Exam: BP 130/87 Pulse 83 Ht 5' 9 (1.753 m) Wt 84.4 kg (186 lb) BMI 27.47 kg/m?? Physical Exam Constitutional: Appearance: He is well-developed. He is not diaphoretic. HENT: Head: Normocephalic. Eyes: General: Right eye: No discharge. Conjunctiva/sclera: Conjunctivae normal. Pupils: Pupils are equal, round, and reactive to light. Neck: Musculoskeletal: Normal range of motion. Cardiovascular: Rate and Rhythm: Normal rate and regular rhythm. Pulmonary: Effort: Pulmonary effort is normal. Breath sounds: Normal breath sounds. Abdominal: Palpations: Abdomen is soft. Musculoskeletal: Normal range of motion. Neurological: Mental Status: He is alert and oriented to person, place, and time. Pertinent Labs: Lab Results Component Value Date/Time WBC 5.5 07/31/2019 11:33 AM HEMOGLOBIN 17.2 (H) 07/31/2019 11:33 AM HEMATOCRIT 52.3 (H) 07/31/2019 11:33 AM PLATELETS 325 07/31/2019 11:33 AM MCV 86.7 07/31/2019 11:33 AM Lab Results Component Value Date/Time SODIUM 140 07/31/2019 11:33 AM POTASSIUM 4.2 07/31/2019 11:33 AM CHLORIDE 103 07/31/2019 11:33 AM CO2 26 07/31/2019 11:33 AM CALCIUM 9.1 07/31/2019 11:33 AM BUN 12 07/31/2019 11:33 AM CREATININE 1.26 (H) 07/31/2019 11:33 AM GLUCOSE 78 07/31/2019 11:33 AM TOTAL PROTEIN 7.4 07/31/2019 11:33 AM ALBUMIN 3.9 07/31/2019 11:33 AM BILIRUBIN TOTAL 0.3 07/31/2019 11:33 AM ALKALINE PHOSPHATASE 78 07/31/2019 11:33 AM AST 21 07/31/2019 11:33 AM ALT 25 07/31/2019 11:33 AM ANION GAP 11 07/31/2019 11:33 AM No results found for: INR, PT, PROTIMEPOC Lab Results Component Value Date/Time CRP 8.3 (H) 07/31/2019 11:33 AM Pertinent Imaging: Ultrasound: No results found for this or any previous visit. CT Abd and Pelvis: Results for orders placed or performed during the hospital encounter of 07/26/12 CT ABDOMEN PELVIS W CONTRAST Narrative CT abdomen and pelvis with contrast 07/26/2012. HISTORY: Diffuse abdominal pain. Technique: Contiguous 5 mm enhanced images were obtained through the abdomen and the pelvis. FINDINGS: Comparison study is dated 06/26/2012. The [...] pelvis. No pelvic mass or lymphadenopathy is seen. Impression IMPRESSION: The distal small bowel loop is again dilated with mucosal thickening and enhancement. It has unchanged since the previous study of 06/26/2012. TOBACCO COUNSELING He is not a tobacco user. Impression/Plan: 49 yo W severe UC s/p total colectomy with J pouch with severe pouchitis, currently on entyvio. He also has some perianal fistulas and I am concerned that he may have actually developed Crohn's disease of the pouch. At the current time his fistulas are not that bothersome to him and he has not pursued any surgical evaluation. We had some issues with insurance coverage and Entyvio but now he is back on Entyvio and is doing fairly well, he has some cramping. 1. Ulcerative colitis status post proctocolectomy with ileoanal J-pouch in 2011 2. 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 If active inflammation may need to increase entyvio and/or add canasa depending on location. - hyoscyamine in AM for cramping, also at night if beeded - labs today for monitoring including cbc, cmp, crp, vit B12 and D and TB test. Restart ergocalciferol for vitamin D deficiency- Q other week vitamin B12 injections weekly for vitamin B12 deficiency ICD-10-CM ICD-9-CM 1. Ulcerative pancolitis with other complication K51.018 556.6 Patient Instructions 1. Continue Entyvio every 8 weeks 2. Blood work today 3. Pouchoscopy to look at J-pouch 4. Ergocalciferol- vitamin D every other week. 5. Lomotil as needed 6. Start Hyoscyamine every day in the morning, and you can also take at night if you need it. Orders Placed This Encounter ??? CBC WITH DIFFERENTIAL ??? C-REACTIVE PROTEIN ??? COMPREHENSIVE METABOLIC PANEL ??? VITAMIN B12 LEVEL ??? VITAMIN D 25 HYDROXY ??? QUANTIFERON TB GOLD ??? *Annette Whitney MD ??? ergocalciferol (VITAMIN D2) 50,000 unit capsule ??? diphenoxylate-atropine (LOMOTIL) 2.5-0.025 mg tablet ??? hyoscyamine 0.375 mg Extended Release 12 hour tablet Thank you very much for this consultation. Annette Whitney MD [facility] CC: Jasiel Freeman MD , Jasiel Freeman MD documented in this encounter Miscellaneous Notes * Patient Instructions - Annette Whitney MD - 04/29/2020 10:39 AM CDT 1. Continue Entyvio every 8 weeks 2. Blood work today 3. Pouchoscopy to look at J-pouch 4. Ergocalciferol- vitamin D every other week. 5. Lomotil as needed 6. Start Hyoscyamine every day in the morning, and you can also take at night if you need it. documented in this encounter Plan of Treatment Upcoming Encounters Date Type Department Care Team (Late st Contact Info) Description 02/13/2025 10:30 AM CDT Office Visit [facility] IBD [facility] Gastroenterology [facility] [place] [address] [place] [address] Kitty Dover ANP [address] [place] [address] [place] [address] Scheduled Referrals Name Type Priority Associated Diagnoses Order Schedule AMB REFERRAL TO GASTROENTEROLOGY Outpatient Referral Routine Ulcerative pancolitis with other complication Ordered: 04/29/2020 documented as of this encounter Results * QUANTIFERON TB GOLD (04/29/2020 11:09 AM CDT) QUANTIFERON TB GOLD PLUS SEE COMMENTS 05/01/2020 7:02 PM CDT [facility] Comment: QuantiFERON-Tb Gold Plus, B was cancelled on 05/01/2020 at 19:02; One or more of collection tubes was under-filled (<0.8 mL sample). TB1 AG - NIL SEE COMMENTS 05/01/2020 7:02 PM CDT [facility] Comment: QuantiFERON-Tb Gold Plus, B was cancelled on 05/01/2020 at 19:02; One or more of collection tubes was under-filled (<0.8 mL sample). TB2 AG - NIL SEE COMMENTS 05/01/2020 7:02 PM CDT [facility] Comment: QuantiFERON-Tb Gold Plus, B was cancelled on 05/01/2020 at 19:02; One or more of collection tubes was under-filled (<0.8 mL sample). MITOGEN-NIL SEE COMMENTS 05/01/2020 7:02 PM CDT [facility] Comment: QuantiFERON-Tb Gold Plus, B was cancelled on 05/01/2020 at 19:02; One or more of collection tubes was under-filled (<0.8 mL sample). NIL SEE COMMENTS 05/01/2020 7:02 PM CDT [facility] Comment: QuantiFERON-Tb Gold Plus, B was cancelled on 05/01/2020 at 19:02; One or more of collection tubes was under-filled (<0.8 mL sample). Test Performed by: [facility] [address] [place] [address] [employer]icult[employer] Instructor: James Oliveira M.D. Ph.D.; CLIA# [id number] Blood Venipuncture / Unknown 04/29/2020 11:09 AM CDT 04/29/2020 11:39 AM CDT Annette Whitney MD CHEMISTRY SHELBY PRITCHETT [facility] * (ABNORMAL) VITAMIN D 25 HYDROXY (04/29/2020 11:09 AM CDT) VITAMIN D TOTAL (25OH) 21(L) 30 - 100 ng/mL 04/29/2020 12:38 PM CDT [facility] [email or web address] [facility] Blood Venipuncture / Unknown 04/29/2020 11:09 AM CDT 04/29/2020 11:39 AM CDT Narrative [facility] [email or web address] [facility] - 04/29/2020 12:38 PM CDT Interpretive Data Chart: Deficient: ? 0 - 20 ng/mL Insufficient: ?21 - 29 ng/mL Sufficient: ?30 - 100 ng/mL Increased Risk of Hypercalciuria: ??>100 ng/ml Toxic: ? >150 ng/ml Annette Whitney MD CHEMISTRY [email or web address] Performing Organization Address [facility] Co de Phone Number [facility] [email or web address] [facility]# [id number] [address] [place] [address] * VITAMIN B12 LEVEL (04/29/2020 11:09 AM CDT) VITAMIN B12 321 232-1,245 pg/mL 04/29/2020 12:38 PM CDT [employer] LAB[facility] SERVICES [facility] Comment:It has been reported that between 5 to 10% of patients with values between 200 and 400 pg/mL may experience neuropsychiatric and hematologic abnormalities due to occult B12 deficiency. Less than 1% of patients with values above 400 pg/mL will have symptoms. Blood Venipuncture / Unknown 04/29/2020 11:09 AM CDT 04/29/2020 11:39 AM CDT Annette Whitney MD CHEMISTRY ORDE [employer] Performing Organization Address [facility] Co de Phone Number [facility] [email or web address] [facility]# [id number] [facility] [place] [address] [place] [address] * (ABNORMAL) COMPREHENSIVE METABOLIC PANEL (04/29/2020 11:09 AM CDT) SODIUM 140 136 - 145 mmol/L 04/29/2020 12:23 PM CDT [employer] [facility] POTASSIUM 3.8 3.5 - 5.0 mmol/L 04/29/2020 12:23 PM CDT [facility] [facility] - [facility] CHLORIDE 102 98 - 107 mmol/L 04/29/2020 12:23 PM CDT [facility] [facility] - [facility] CO2 24 22 - 29 mmol/L 04/29/2020 12:23 PM CDT [facility] CALCIUM 8.8 8.6 - 10.2 mg/dL 04/29/2020 12:23 PM CDT [facility] - [facility] BUN 13 6 - 20 mg/dL 04/29/2020 12:23 PM [facility] [employer] [facility] SERVICES - [facility] CREATININE 1.19(H) 0.67 - 1.17 mg/dL 04/29/2020 12:23 PM [facility] [employer] LABORATORY SERVICES - . [facility] GLUCOSE 83 74 - 99 mg/dL 04/29/2020 12:23 PM [facility] [employer] LABORATORY SERVICES - . [facility] TOTAL PROTEIN 7.1 6.7 - 8.6 g/dL 04/29/2020 12:23 PM [facility] [employer] LABORATORY SERVICES - . [facility] ALBUMIN 3.8 3.5 - 5.2 g/dL 04/29/2020 12:23 PM [facility] [employer] LABORATORY SERVICES - . [facility] BILIRUBIN TOTAL 0.4 0.3 - 1.2 mg/dL 04/29/2020 12:23 PM [facility] [employer] LABORATORY SERVICES - [facility] ALKALINE PHOSPHATASE 60 40 - 129 U/L 04/29/2020 12:23 PM [employer] LABORATORY SERVICES - . [facility] AST 19 <41 U/L 04/29/2020 12:23 PM [facility] [employer] LABORATORY SERVICES - . [facility] ALT 19 <42 U/L 04/29/2020 12:23 PM [employer] LABORATORY SERVICES - [facility] GFR >60 >=60 mL/min/1.7 3 sq meter 04/29/2020 12:23 PM [facility] [employer] LABORATORY SERVICES - [facility] Comment: eGFR has not been validated for [...] GFR, >60 >=60 mL/min/1.7 3 sq meter 04/29/2020 12:23 PM T [employer] LAB[facility]ATORY SERVICES - [facility] ANION GAP 14 8 - 16 mmol/L 04/29/2020 12:23 PM [facility] [employer] LABORATORY SERVICES - [facility] Blood Venipuncture / Unknown 04/29/2020 11:09 AM CDT 04/29/2020 11:39 AM CDT Narrative [facility] LABORATORY [facility] - 04/29/2020 12:23 PM CDT Samples containing indocyanine green cause interferences on Total and/or Direct Bilirubin and must not be measured. Annette Whitney MD CHEMISTRY ORDToño PRITCHETT [facility] LABORATORY [facility] CLIA# [id number] [address] [place] [address] * C-REACTIVE PROTEIN (04/29/2020 11:09 AM CDT) [facility] CRP 2.6 <5.0 mg/L 04/29/2020 12:23 PM CDT [facility] LAB[facility] Blood Venipuncture / Unknown 04/29/2020 11:09 AM CDT 04/29/2020 11:39 AM CDT Annette Whitney MD CHEMISTRY ORDToño PRITCHETT Performing Organization Address City/[facility]/ZIP Co de Phone Number [facility] [email or web address] [facility] CLIA# [id number] [address] [place] [address] * (ABNORMAL) CBC WITH DIFFERENTIAL (04/29/2020 11:09 AM CDT) Pathologist [facility] WBC 6.8 4.0 - 9.8 K/uL 04/29/2020 11:57 AM CDT [facility] LABORATORY SERVICES [facility] RBC 6.26(H) 4.50 - 5.40 M/uL 04/29/2020 11:57 AM CDT [facility] LABORATORY SERVICES [facility] HEMOGLOBIN 16.6(H) 13.6 - 16.5 g/dL 04/29/2020 11:57 AM CDT [facility] LAB[facility] HEMATOCRIT 53.8(H) 40.0 - 48.0 % 04/29/2020 11:57 AM CDT [facility] LABORATORY SERVICES [facility] MCV 85.9 82.0 - 99.0 fL 04/29/2020 11:57 AM CDT [facility] - [facility] MCH 26.5(L) 27.2 - 32.6 pg 04/29/2020 11:57 AM CDT [facility] - [facility] MCHC 30.9(L) 31.5 - 35.5 g/dL 04/29/2020 11:57 AM CDT [facility] - [facility] RDW 15.8(H) 11.5 - 14.5 % 04/29/2020 11:57 AM CDT [facility] - [facility] RDW-STDEV 48.7 37.1 - 48.7 fL 04/29/2020 11:57 AM CDT [facility] - [facility] PLATELETS 294 140 - 350 K/uL 04/29/2020 11:57 AM CDT [facility] - [facility] MPV 10.1 9.3 - 12.4 fL 04/29/2020 11:57 AM CDT [facility] - [facility] NEUTROPHILS 69 % 04/29/2020 11:57 AM CDT [facility] - [facility] LYMPHOCYTES 18 % 04/29/2020 11:57 AM CDT [facility] - [facility] MONOCYTES 11 % 04/29/2020 11:57 AM CDT [facility] EOSINOPHILS 2 % 04/29/2020 11:57 AM CDT [facility] - [facility] BASOPHILS 1 % 04/29/2020 11:57 AM CDT [facility] - [facility] IMMATURE GRANULOCYTES 0 % 04/29/2020 11:57 AM CDT [facility] - [facility] NEUTROPHIL ABSOLUTE 4.67 1.90 - 7.00 K/uL 04/29/2020 11:57 AM CDT [facility] - [facility] LYMPHOCYTE ABSOLUTE 1.21 0.70 - 4.50 K/uL 04/29/2020 11:57 AM CDT [facility] - [facility] MONOCYTE ABSOLUTE 0.72 0.10 - 1.30 K/uL 04/29/2020 11:57 AM CDT [facility] - [facility] EOSINOPHIL ABSOLUTE 0.13 0.00 - 0.70 K/uL 04/29/2020 11:57 AM CDT [facility] - [facility] BASOPHILS ABSOLUTE 0.04 0.00 - 0.20 K/uL 04/29/2020 11:57 AM CDT [facility] SERVICES - [facility] IMMATURE GRANULOCYTES ABSOLUTE 0.02 0.00 - 0.03 K/uL 04/29/2020 11:57 AM CDT [facility] SERVICES - [facility] Blood Venipuncture / Unknown 04/29/2020 11:09 AM CDT 04/29/2020 11:39 AM CDT Annette Whitney MD HEMATOLOGY ORD ERABLES [facility] LABORATORY SERVICES [facility] CLIA# [id number] [address] [facility] [place] [id number] documented in this encounter Visit Diagnoses Diagnosis Ulcerative pancolitis with other complication- Primary documented in this encounter Care Teams Educational Speech Language Clinician Relationship Specialty Start Date End Date Jasiel Freeman MD [address] [place] [phone] PCP - General Family Practice 08/15/17 documented as of this encounter
--- OUTSIDE RECORDS SUMMARY | 2024-10-24 05:30 | XMS_ITS | Encounter Summary ---
Author Organization [facility] Address [address] [place] [address] Care Team Providers Care Mobile Architect Name Role Phone Jasiel Freeman MD Primary Care Provider Encounter Details Date Type Department Care Team (Late st Contact Info) Description 02/04/2020 Abstract [facility] Physical Medicine and Rehabilitation [address] [place] [address] Annette Whitney MD [address] [facility] [address] [place] [address] Social History Tobacco Use Types Packs/Day Years [...] [facility] [place] [address] [facility] [address] [place] [address] Kitty Dover, ANP [address] [facility] [address] [place] [address] documented as of this encounter Visit Diagnoses Not on filedocumented in this encounter Care Teams Mobile Architect Relationship Specialty Start Date End Date Jasiel Freeman MD [address] [place] [phone] PCP - General Family Practice 08/15/17 documented as of this encounter
--- OUTSIDE RECORDS SUMMARY | 2024-10-24 05:30 | XMS_ITS | Encounter Summary ---
Author Organization [facility] Address [address] [place] [address] Care Team Providers Care Reinsurance Accountant Name Role Phone Jasiel Freeman MD Primary Care Provider [phone] Reason for Visit * Reason Onset Date Comments Home Visit 03/09/2020 Encounter Details Date Type Department Care Team (Late st Contact Info) Description 03/09/2020 Patient Outreach [facility] Home Infusion - [address] [place] [address] Irina Wyatt, RN Home Visit [...] Reading Time Taken Comments Blood Pressure 124/82 03/09/2020 2:00 PM CDT Pulse 88 03/09/2020 2:00 PM CDT Temperature 36.2 ??C (97.1 ??F) 03/09/2020 2:00 PM CD T Respiratory Rate 16 03/09/2020 2:00 PM CDT Oxygen Saturation 95% 03/09/2020 2:00 PM CDT Inhaled Oxygen Concentration - - Weight - - Height - - Body Mass Index - - documented in this encounter Miscellaneous Notes * Telephone Encounter - Irina Wyatt RN - 03/10/2020 8:44 AM CDT Images from the original note were not included. [facility] [address] [place] [address] Home Infusion NURSING follow up Leonidas Elkins 1970 [address] [facility] [address] 03/09/2020 Provider - Irina Wyatt RN Driving start 1240 Driving end 1355 Visit start 1355 Visit end 1530 Mileage 42 Contact numbers provided including after hours numbers [...] oz) Temp Readings from Last 3 Encounters: 01/13/20 (!) 96 ??F (35.6 ??C) 11/19/19 97.1 ??F (36.2 ??C) 09/23/19 97.7 ??F (36.5 ??C) BP Readings from Last 3 Encounters: 01/13/20 (!) 150/98 11/19/19 134/88 11/13/19 (!) 138/90 Pulse Readings from Last 3 Encounters: 01/13/20 80 11/19/19 99 11/13/19 (!) 102 Resp Readings from Last 3 Encounters: 01/13/20 16 11/19/19 16 09/23/19 16 1. residential assessment and implementation of infusion [...] reactions. Patient knows how to reorder medications. [facility] will [...] Description 02/13/2025 10:30 AM CDT Office Visit [facility] [place] [address] [facility] [address] [place] [phone] Kitty Dover ANP [address] [facility] [address] [place] [phone] documented as of this encounter Visit Diagnoses Not on filedocumented in this encounter Care Teams Reinsurance Accountant Relationship Specialty Start Date End Date Jasiel Freeman MD [address] [place] [phone] PCP - General Family Practice 08/15/17 documented as of this encounter
--- OUTSIDE RECORDS SUMMARY | 2024-10-24 05:30 | XMS_ITS | Encounter Summary ---
Author Organization [facility] Address [address] [place] [address] Care Team Providers Care Management Professor Name Role Phone Jasiel Freeman MD Primary Care Provider Encounter Details Date Type Department Care Team (Late st Contact Info) Description 08/19/2020 Specialty Pharmacy [facility] Specialty and Home Infusion - [address] [place] [address] Thanh Solares, PHARMACIST Social History [...] Progress Notes * Thanh Solares, PHARMACIST - 08/19/2020 11:22 AM CDT Images from the original note were not included. [facility] Infusion [facility] Edgardo Elkins 49 y.o. / male Patient's address on file: [address] [place] [address] Home Phone Work Phone Home Infusion Order [...] (through 05/26/19) Per: Caren / KESHA Whitney [facility] [address], [address] [place] [address] Generic substitution permitted Detailed Home Infusion Orders [...] RN will take any ordered labs to [facility] when possible. If labs are not taken to a [facility] lab, it is the responsibility of nursing to make sure labs are faxed to the pharmacy at [phone] Whitney. Catheter Care Catheter type: PIV placed by WORKERS COMPENSATION LEGAL SECRETARY prior to each infusion Flush IV catheter [...] lab draws/line complications. ?? Flushes provided by [facility]ty and Infusion pharmacy are for [...] Today's Encounter: Refill note Actions/Narrative: Edgardo Elkins (49 y.o. male) is active with [facility]ty and Infusion services receiving Entyvio every 8 weeks at home for ulcerative colitis. ?? Edgardo is due for his next infusion this week. Pharmacist contacted WORKERS COMPENSATION LEGAL SECRETARY to coordinate delivery. RN will picked edge [...] Solares MBA, [facility] 08/08/19 - Patient to receive infusion of Entyvio today after an insurance issue. Will send medications and supplies for the infusion. JEANNA 08/19/19 - Confirmed with the nurse egg caser that the patient was scheduled to receive [...] supplies for infusion scheduled on 08/20/2020. RDS Timeline/Summary of Home Infusion Therapy: 11/15/17 - Start of Care / Entyvio week 0 11/29/17 - Week 2 12/28/17 - Week 6 02/21/18 - Begin maintenance dose every 8 weeks 11/26/18 - Approved x [address] Whitney Home Infusion Care Team IV Pharmacy: [facility] / [phone] Nursing Agency: [facility] Physician(s): Dr. Whitney Additional Relevant Data Insurance Information: Payor: RX [facility] / Plan: RX [employer] ADVANCE PARADIGM / Product Type: RX [employer] / IV access PIV placed by WORKERS COMPENSATION LEGAL SECRETARY prior to each infusion Ht Readings from [...] level: Not on file Occupational History Employer: [employer] Employer: [employer] Social Needs ??? Financial [...] file Gets together: Not on file Attends scientology service: Not on file Active member of [...] by intraveous injection see administration instructions. Home WORKERS COMPENSATION LEGAL SECRETARY to administer over 30 minutes every 8 [...] Provided to Patient ?? Pharmacist offer to cemetery counselor ?? RN instruction ?? Printed teaching sheets ?? Drug information paperwork - EH patient leaflet FADI Silverman [facility]fusion - [place] [address] [facility] , [address] [place] [address] documented in this encounter Plan of Treatment Upcoming Encounters Date Type Department Care Team (Late st Contact Info) Description 02/13/2025 10:30 AM CDT Office Visit [facility] [place] [address] [facility] [address] [place] [address] Kitty Dover, MIRTA [address] [facility] [address] [place] [address] documented as of this encounter Visit Diagnoses Not on filedocumented in this encounter Care Teams Management Professor Relationship Specialty Start Date End Date Jasiel Freeman MD [address] [place] [phone] PCP - General Family Practice 08/15/17 documented as of this encounter
--- OUTSIDE RECORDS SUMMARY | 2024-10-24 05:30 | XMS_ITS | Encounter Summary ---
Author Organization [facility] Address [address] [place] [address] Care Team Providers Care Transitional Living Specialist Name Role Phone Jasiel Freeman MD Primary Care Provider [phone] Reason for Visit * Auth/Cert Specialty Diagnoses / Procedures Referred By Lambert pizarro Referred To Contact Perioperative Diagnoses Ulcerative pancolitis with other complication Procedures VA SIGMOIDOSCOPY FLX DX W/COLLJ SPEC BR/WA IF PFRMD CHECKOUT SIGMOIDOSCOPY FLEXIBLE [facility] [address] [place] [address] Referral ID Status Reason Start Date Expiration Date Visits Re quested Visits Authorized [id number] 1 1 Encounter Details Date Type Department Care Team (Late st Contact Info) Description 06/12/2020 7:34 AM CDT Anesthesia Event [facility] [place] [address] [place] [address] Ilya Lutz MD [address] [place] [address] Philly Munoz CRNA [address] [place] [address] Anesthesia Record Procedure Summary Procedure Name Responsible Anesthesiologist Anesthesia Start Time Anesthesia Stop Time CHECKOUT SIGMOIDOSCOPY FLEXIBLE (Anus) Ilya Lutz MD 06/12/20 0734 06/12/20 0758 Events Date Time Event Comment 06/12/2020 0710 AN Equip Check Anesthesia eq uipment and materials checked in accordance with local policy. 0734 An Start 0735 In Room This event disp lays the In Room time documented in the Surgical Log. Deleting this event will not remove it from the log but will remove it from the Grid and Graph timeline. 0735 An Start Data 0735 Pre-Induction Immediate pre- induction anesthetic assessment performed. Vital signs as noted on graphic. 0736 0736 Intended Opioids 0738 An Induction 0738 Anesthesia Ready 0740 Procedure Start This event d isplays the Procedure Start time documented in the Surgical Log. Deleting this event will not remove it from the log but will remove it from the Grid and Graph timeline. 0751 Procedure Stop This event di splays the Procedure Stop time documented in the Surgical Log. Deleting this event will not remove it from the log but will remove it from the Grid and Graph timeline. 0753 an stop data 0754 Out of Room This event disp lays the Out of Room time documented in the Surgical Log. Deleting this event will not remove it from the log but will remove it from the Grid and Graph timeline. 0758 An Stop 0758 Hand-off to Receiving Clinic marline Post-Anesthetic transfer of care report elements to appropriate post-anesthesia recovery environment completed in accordance with procedure. Meds Name Total propofol (DIPRIVAN) 10??mg/mL injection 250 mg lidocaine (XYLOCAINE) 2% injection 60 mg lactated ringers infusion 400 mL * Agents Name O2 Inspired O2 N2O Inspired N2O O2 * Blood No blood administrations on file. Lines, Drains, and Airways Type Details Placement Removal OB Wound 02/29/12; 1445; Yes; 1; Left:; gluteal; ulceration, fissure 02/29/12 1445 by Janice Crow, RN Supraglottic Airway Type: nasal cannula; Confirmation: end tidal CO2, satisfactory chest rise 06/12/20 0710 by Philly Munoz, PRIMARY SPECIAL EDUCATION TEACHER 06/12/20 0831 by Ramona Hodge RN Peripheral IV Pre-Hospital Start: No; Location: Hand; Gauge: 20 gauge; Needle Length: 1 in length; Insertion Attempts: 1 (Krysta, RN); Patient Tolerance: tolerated well 06/12/20 0724 by Pat Hunter RN 06/12/20 0831 by Ramona Hodge RN documented in this encounter Social History [...] OR Notes * Anesthesia Postprocedure Evaluation - Philly Munoz CRNA - 06/12/2020 8:13 AM CDT Post Anesthesia Evaluation Vitals: Vitals Value Taken Time BP 121/56 06/12/2020 8:08 AM Temp 36.1 ??C 06/12/2020 7:58 AM Resp 16 06/12/2020 8:08 AM SpO2 97 % 06/12/2020 8:08 AM Pulse 80 06/12/2020 8:08 AM Heart Rate Pain Rating: Anesthesia Post Evaluation Patient location during evaluation: PACU Patient participation: patient was able to participate in the post op evaluation Level of consciousness: 0 = alert, responsive, answers simple questions appropriately, able to perform simple tasks Pain management: adequate Airway patency: patent Nausea or Vomiting: none Anesthetic complications: no Cardiovascular status: regular rate and rhythm Respiratory status: no respiratory symptoms Hydration status: well hydrated Philly Munoz CRNA * Anesthesia Handoff - Philly Munoz CRNA - 06/12/2020 7:56 AM CDT Post-Anesthetic transfer of care report [...] and acknowledgement of understanding. Vital Signs: BP: (!) 143/88 (06/12/2020 7:23 AM) Pulse: 82 (06/12/2020 7:23 AM) Temp: 36.1 ??C (06/12/2020 7:13 AM) Resp: 18 (06/12/2020 7:23 AM) SpO2: 96 % (06/12/2020 7:23 AM) 7:58 AM Philly Munoz CRNA * Anesthesia Handoff - Philly Munoz CRNA - 06/12/2020 7:56 AM CDT Post-Anesthetic transfer of care report [...] questions and acknowledgement of understanding. Vital Signs: See anesthesia flowsheet for VS 7:58 AM Philly Munoz CRNA * Anesthesia Preprocedure Evaluation - Ilya Lutz MD - 06/12/2020 7:31 AM CDT Relevant Problems No relevant active problems Anesthesia Evaluation Patient summary reviewed and Nursing notes reviewed Airway Mallampati: II TM distance: >3 FB Neck ROM: full Dental - normal exam Pulmonary breath sounds clear to auscultation (+) asthma, (-) COPD ROS comment: 2019 PFT: Spirometry is acceptable and reproducible, overall consistent with mild airway obstruction. ??Baseline FEV1 is 79%, good response to bronchodilators. ??FEV1 improved by 12%. ?? Clinical correlation is required. Cardiovascular Exercise tolerance: good (-) past [place], CAD, CABG/stent Rhythm: regular Rate: normal Neuro/Psych - negative ROS GI/Hepatic/Renal (+) chronic renal disease, bowel prep (-) liver disease Comments: 49 y/o male with h/o UC s/p total colectomy with J [place] [address] Recinos. He has had recurrent problems with pouchitis. The thought process now is chronic pouchitis vs Crohn's. He hasbeen on Humira, Remicade, Xifaxin, Cipro, Augmentin, Vanc, prednisone, Protonix and Asacol. He is currently on Entyvio. His last infusion was 2-3 weeks ago. Endo/Other (+) arthritis Abdominal Anesthesia History Anesthesia Plan ASA Final: 2 MAC N/A induction NPO status > 8 hours Anesthetic plan and risks discussed with Patient. Plan discussed with Surgeon, Anesthesiologist, Anesthesiologist Equipment Worker and Nurse Bridge Design Engineer. Post-op Pain Control Plan to use IV or IM medication and Per surgeon for post-op pain control. Plan for postoperative opioid use Smoking Compliance Patient did not smoke on day of surgery documented in this encounter Plan of Treatment Upcoming Encounters Date Type Department Care Team (Late st Contact Info) Description 02/13/2025 10:30 AM CDT Office Visit [facility] [place] [address] [facility] [address] [place] [address] Kitty Dover, MIRTA [address] [facility] [address] [place] [address] documented as of this encounter Visit Diagnoses Not on filedocumented in this encounter Administered Medications Inactive Administered Medications - up to 3 most recent administrations Medication Order MAR Action Action Date Dose Rate Site lactated ringers infusion IV, at 125 mL/hr, PRE-PROCEDURE CONTINUOUS, Starting on Mon06/12/20 at 0730, Until Mon06/12/20 at 1122, Routine, Pre-Procedure Continue from Pre-Op 06/12/2020 7:40 AM CDT New Bag 06/12/2020 7:34 AM CDT New Bag 06/12/2020 7:24 AM CDT 125 mL/hr lidocaine 2 % (XYLOCAINE) injection INTRA-PROCEDURE PRN, Starting on Mon06/12/20 at 0738, Until Mon06/12/20 at 0758, Routine, Anesthesia Intra-op Given 06/12/2020 7:38 AM CDT 60 mg propofoL (DIPRIVAN) injection INTRA-PROCEDURE PRN, Starting on Mon06/12/20 at 0738, Until Mon06/12/20 at 0758, Anesthesia Intra-op Given 06/12/2020 7:47 AM CDT 50 mg Given 06/12/2020 7:44 AM CDT 50 mg Given 06/12/2020 7:41 AM CDT 50 mg documented in this encounter Care Teams Transitional Living Specialist Relationship Specialty Start Date End Date Jasiel Freeman MD [address] [place] [phone] PCP - General Family Practice 08/15/17 documented as of this encounter
--- OUTSIDE RECORDS SUMMARY | 2024-10-24 05:30 | XMS_ITS | Encounter Summary ---
Author Organization [facility] Address [address] [place] [address] Care Team Providers Care Business Project Analyst Name Role Phone Jasiel Freeman MD Primary Care Provider Encounter Details Date Type Department Care Team (Late st Contact Info) Description 04/29/2020 Orders Only [facility] [address] [place] [address] Emily Hernandez MD [address] [place] [address] Social History Tobacco Use Types Packs/Day Years [...] 10:30 AM CDT Office Visit [facility] [place] [address] [place] [address] Kitty Dover ANP [address] [place] [address] documented as of this encounter Visit Diagnoses Not on filedocumented in this encounter Care Teams Business Project Analyst Relationship Specialty Start Date End Date Jasiel Freeman MD [address] [place] [phone] PCP - General Family Practice 08/15/17 documented as of this encounter
--- OUTSIDE RECORDS SUMMARY | 2024-10-24 05:30 | XMS_ITS | Encounter Summary ---
[facility] Organization [facility] Address [address] [place] [address] Care Team Providers Care Rotoprinter Name Role Phone Jasiel Freeman MD Primary Care Provider Reason for Referral * Eval and Treat (Routine) - Closed Specialty Diagnoses / Procedures Referred By Lambert pizarro Referred To Contact Diagnoses Ulcerative pancolitis with other complication Annette Whitney MD 1 [facility] DIV [place] [address] Joaquina Prescott, arcade attendant ID Status Reason Start Date Expiration Date V isits Requested Visits Authorized [id number] Closed CRS To Schedule (STL) 06/12/2020 06/13/2021 1 1 Reason for Visit * Auth/Cert Specialty Diagnoses / Procedures Referred By Lambert pizarro Referred To Contact Perioperative Diagnoses Ulcerative pancolitis with other complication Procedures ID SIGMOIDOSCOPY FLX DX W/COLLJ SPEC BR/WA IF PFRMD CHECKOUT SIGMOIDOSCOPY FLEXIBLE [facility] [address] [place] [address] Referral ID Status Reason Start Date Expiration Date Visits Re quested Visits Authorized [id number] 1 1 Encounter Details Date Type Department Care Team (Latest Contact Info) Description 06/12/2020 7:00 AM CDT - 06/12/2020 8:53 AM CDT Hospital Encounter [facility] [address] [place] [address] Annette Whitney MD 1 [facility] DIV [place] [address] Ulcerative pancolitis with other complication Discharge Disposition: Home or Self Care [...] Sign Reading Time Taken Comments Blood Pressure 98/75 06/12/2020 8:20 AM CDT Pulse 77 06/12/2020 8:20 AM CDT Temperature 36.1 ??C (97 ??F) 06/12/2020 7:58 AM CDT Respiratory Rate 18 06/12/2020 8:20 AM CDT Oxygen Saturation 97% 06/12/2020 8:20 AM CDT Inhaled Oxygen Concentration - - Weight 80.6 kg (177 lb 9.6 oz) 06/12/2020 7:13 A M CDT Height 175.3 cm (5' 9 ) 06/12/2020 7:13 AM CDT Body Mass Index 26.23 06/12/2020 7:13 AM CDT documented in this encounter Discharge Instructions * Discharge Instructions* Annette Whitney MD - 06/12/2020 7:33 AM CDT Instructions after Flexible Sigmoidoscopy After a colonoscopy it is normal to experience some minor ???gas pains?? because of the air that was introduced to your colon during the procedure. Tylenol will help to relieve any discomfort. You may not have a bowel movement for 1-3 days because of the colonoscopy prep. This is normal. Resume your previous diet unless otherwise instructed. Resume your previous medications unless otherwise instructed. Notify your physician if you develop any of the following: ??? Severe pain ??? Fever of 101 degrees F ??? Large amount of bleeding, passing large blood clots, or black tarry stools ??? Redness or soreness at the IV site If tissue samples were taken during the procedure, you will notified by phone or mail with the results. If you have not been notified within two weeks, please call the office. Office Phone: [facility] [phone] [place] [phone] Exchange: documented in this encounter Medications at [...] for 14 days. 28 Capsule 06/12/2020 06/26/2020 ergocalciferol (VITAMIN D2) 50,000 unit capsule Take [...] by intraveous injection see administration instructions. Home ADMINISTRATIVE JOB TITLES to administer over 30 minutes every 8 weeks. 300 mg 3 07/31/2019 11/14/2022 documented as of this encounter H&P Notes * Annette Whitney MD - 06/12/2020 7:27 AM CDT This is a 49 y.o. male who presents for pouchoscopy (J-pouch) Pre-procedure indication: Pouchitis Important co-morbidity: UC s/p colectomy ASA per Anesthesia Examination: Wt Readings from Last 3 Encounters: 06/12/20 80.6 kg (177 lb 9.6 oz) 05/20/20 83.9 kg (185 lb) 05/20/20 82.1 kg (181 lb) Temp Readings from Last 3 Encounters: 06/12/20 97 ??F (36.1 ??C) (Temporal) 05/20/20 98.2 ??F (36.8 ??C) (Oral) 05/05/20 99.3 ??F (37.4 ??C) BP Readings from Last 3 Encounters: 06/12/20 (!) 143/88 05/20/20 127/72 05/20/20 120/80 Pulse Readings from Last 3 Encounters: 06/12/20 82 05/20/20 85 05/05/20 96 Mental status: A&O x 3 Cardiac: regular rate and rhythm Lung: normal respiratory effort Abdomen: S, NT Consent: yes Prior to Admission Medications Prescriptions Last Dose Informant Patient Reported? Taking? BD PRECISIONGLIDE 25 gauge x 1 Needle No No Sig: USE DIRECTED TO ADMINISTER SOLU CORTEF SOLU-CORTEF 100 mg Recon Soln Unknown at Unknown time No No Sig: ADMINISTER 50 MG VIA SLOW INTRAVENOUS PUSH IN CASE OF SEVERE ALLERGICREACTION. DISCARD EXCESS. SOLU-MEDROL, PF, 40 mg/mL Recon Soln Unknown at Unknown time No No Sig: ADMINISTER 40 MG VIA SLOW INTRAVENOUS PUSH IN CASE OF SEVERE ALLERGICREACTION. Syringe with Needle, Disp, (BD Luer-Jesusita Syringe) 3 mL 23 gauge x 1 1/2 Syringe No No Sig: For use with B12 injections TESTOSTERONE, BULK, MISC Past Week at Unknown time Yes Yes Si mL by Misc.(Non-Drug; Combo Route) route. cyanocobalamin (VITAMIN B-12) 1,000 mcg/mL Solution Past Month at Unknown time No Yes Sig: Inject 1 mL (1,000 mcg) by intramuscular injection every 7 days. diphenhydrAMINE (BENADRYL) 50 mg/mL Solution > Month at Unknown time No No Sig: ADMINISTER 25 MG VIA SLOW INTRAVENOUS PUSH IN CASE OF SEVERE ALLERGICREACTION. DISCARD EXCESS diphenoxylate-atropine (LOMOTIL) 2.5-0.025 mg tablet Past Month at Unknown time No Yes Sig: Take 1 Tablet by mouth 4 times daily as needed for Diarrhea/Loose Stools. ergocalciferol (VITAMIN D2) 50,000 unit capsule Past Month at Unknown time No Yes Sig: Take 1 Capsule (50,000 Units) by mouth every 2 weeks. hyoscyamine 0.375 mg Extended Release 12 hour tablet 06/11/2020 at Unknown time No Yes Sig: Take 1 Tablet (0.375 mg) by mouth every 12 hours as needed for Discomfort. ondansetron (ZOFRAN) 4 mg Tablet > Month at Unknown time No No Sig: Take 1 Tablet (4 mg) by mouth every 8 hours as needed for Nausea/Emesis. vedolizumab (ENTYVIO) 300 mg Recon Soln > Month at Unknown time No No Sig: Inject 300 mg by intraveous injection see administration instructions. Home ADMINISTRATIVE JOB TITLES to administer over 30 minutes every 8 weeks. Facility-Administered Medications: None Allergies Allergen Reactions ??? Infliximab Rash Other reaction(s): Sneezing flushed face Past Medical History: Diagnosis Date ??? Arthritis [...] Procedure Notes * Annette Whitney MD - 06/12/2020 7:59 AM CDTAssociated Order(s): POUCHOSCOPY REPORT [facility] Endoscopy Patient Name: Edgardo Elkins Procedure Date: 06/12/2020 Date of : 1970 Admit Type: Outpatient Attending MD: Annette Whitney , Procedure: Pouchoscopy Indications: Inflammatory bowel disease Providers: Annette Whitney Referring MD: Jasiel Freeman MD Medicines: Monitored Anesthesia Care Complications: None Procedure: Informed consent was obtained for the [...] ileoanal pouch and into the ari-terminal ileum. Informed consent was obtained for the procedure, including moderate sedation after risks were discussed. Based on the pre-procedure assessment, including review of the patient's medical history, medications, allergies, and review of systems, the patient was deemed to be an appropriate candidate for sedation. A timeout was performed. Continuous ECG monitoring, pulse oximetry, blood pressure monitoring, and direct observation were performed.The procedure was performed without difficulty. The patient tolerated the procedure well. The quality of the bowel preparation was fair. Estimated Blood Loss: Minimal Findings: The rectal cuff appeared healthy on forward and retroflexed view. This was biopsied for dysplasia. The J pouch was erythematous with shallow ulcerations, there appeared to be a nonobstructing stricture in the mid pouch. This was traversed without difficulty. There was also a non obstructing stricture in the pre pouch ileum with ulceration. The pre pouch ileum appeared otherwise healthy. 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 Follow up with me after Barium enema Annette Whitney, 06/12/2020 7:59:02 AM This report has been signed electronically. Number of Addenda: [address]; [place] [address] documented in this encounter OR Notes * Zarina-OP - Ruth Swanson RN - 06/05/2020 6:04 PM CDT ?Routine Pre-Anesthesia Protocol for GI Lab Procedures [facility] Approved by: [facility] - Medical Executive Committee Approval Date: 04/15/2020 ORDERS ARE ENTERED ???PER PROTOCOL?? Enter the protocol in the patient???s electronic health record using [employer]: .anestprotocolgilab NURSING ORDERS: Monitoring: o Obtain and record vital signs o Continuous vital signs (Non-invasive blood pressure, pulse oximetry and cardiac monitoring) for all inpatients and all patients currently taking beta-blockers o Place #20 gauge IV in non-dominant, non-operative or not otherwise excluded upper extremity o Contact responsible anesthesiologist if recommending use of a #22 gauge IV o See medication section for local Anesthetic to use to initiate IV LABORATORY ORDERS: Screening Protocol: o Urine bHCG (serum if necessary) Female of menses, or age > 12 y/o Point of Care Testing: FOR PATIENTS WITH A HISTORY OF DIABETES, RECEIVING INSULIN, OR EXHIBITING SIGNS AND SYMPTOMS OF HYPOGLYCEMIA. o POC glucose on initial assessment o POC glucose every 4 hours if NPO o POC glucose within 30 minutes of discharge or transfer to another unit (the time based intra-procedure POC check may be deferred during short procedures at the discretion of the provider) o POC for any patient exhibiting signs and symptoms of hypoglycemia o If POC Glucose results are critical, do not delay treatment. If appropriate, may confirm POC with: Nursing Only [id number] (this lab can be obtained at no cost to the patient when confirming a criticalhigh or critical low POC glucose MEDICATION ORDERS: o Local Anesthetic to use to initiate IV line: Lidocaine 2% 0.3mL intradermal ONE TIME to numb areaof IV catheter insertion PRN. IV Fluid - Adult patients (age 18 years or greater): o Lactated ringer???s solution to infuse at 125mL/hr, may discontinue upon discharge from procedurearea o Patient specific modification as indicated: ; If patient is found to have a serum creatinine >2 or history of renal failure, RN may change fluid to NS at 10ml/hr Contact provider to consider dextrose containing fluids for: o NPO patients who have received PO or injectable antihyperglycemic agents and glucose is less [id number] mg/dl o NPO patients who have NOT received PO or injectable antiHYPERglycemic agents and POC glucose is less than 70 mg/dL. o When receiving report on an inpatient, confirm if patient is receiving dextrose containing fluidsto prevent hypoglycemia. Communicate with the anesthesiologist and request glucose containing fluids be continued or added to intraoperative Fluids. o Any time a patient???s enteral or parenteral nutrition is interrupted for longer than four hours and POC glucose or serum glucose is less than 100 mg/dL contact provider for dextrose containing fluids o Notify provider for any POC glucose or serum glucose less than 70 mg/dL. RESCUE MEDICATION ORDERS - entered by the Pharmacist roto gravure press operator RESCUE ORDERS - entered by the Pharmacist or the dynamics ax developer Orders Patient has IV access and UNCONCIOUS, UNWILLING to swallow or NPO Glucose Level Treatment 40-69 mg/dL Dextrose 50% IV, give 12.5 grams (25 ml), IV push ONE TIME Less than 40 mg/dL Dextrose 50% IV, give 25 grams (50 ml), IV push ONE TIME Patient has no IV access, patient UNCONCIOUS, unable to swallow or NPO Glucose Level Treatment Less than 70 mg/dL Administer IM GLUCAGON 1 mg one time. After administration of glucagon is complete insert peripheral IV and notify physician. Patient is CONCIOUS and able to swallow and no longer NPO Glucose Level Treatment 40-69 mg/dL Give 15 gram food choice such as: Regular soda (6 oz), Apple juice (4 oz), or 1/2 cup regular jello Less Than 40 mg/dL Give 30 gram food choice such as: Regular soda (12 oz), Apple juice (8 oz), or 1cup regular jello Nursing Communication for Subsequent Care: ??? Check POC glucose 15 minutes after rescue. ??? Recheck and retreat every 15 minutes until blood glucose is greater than or equal to 70 mg/dL. ??? Once POC glucose result is 70 mg/dL or greater: o Check POC glucose every 30 minutes for 3 occurrences o Resume previous POC Glucose check orders. After Hypoglycemic Symptoms Subside, Give a Snack or Ask Provider for Dextrose Containing Fluids SNACK CHOICES: 1 carb and 1 fat servin saltine crackers and 2 teaspoons peanut butter; or 1 slice of bread and 2 teaspoons peanut butter; or 1 oz cheese and 6 saltine crackers; or 1 cup 2% milk and 6 saltine crackers. * Zarina-OP - Ruth Swanson RN - 06/05/2020 6:03 PM CDT Precall completed. Pt familiar with prep and preprocedure instructions. Reviewed briefly. Already has prep and preprocedure instructions. Reviewed with pt. COVID testing scheduled 06/06. Discussed isolation between testing and procedure. Discussed visitor restrictions, use of masks, and COVID 19 screenings prior to entering hospital. Verbalizes understanding. 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 All of the patients questions answered. documented in this encounter Plan of Treatment Upcoming Encounters Date Type Department Care Team (Late st Contact Info) Description 02/13/2025 10:30 AM CDT Office Visit [facility] [place] [address] [place] [address] Kitty Dover, ANP [address] [place] [address] Scheduled Referrals Name Type Priority Associated Diagnoses Orde r Schedule AMB REFERRAL TO NURSE NAVIGATOR Outpatient Referral Routine Ulcerative pancolitis with other complication Ordered: 06/12/2020 documented as of this encounter Procedures Procedure Name Priority Date/Time Associated Diagnosis Comments QUANTIFERON TB GOLD Stat 06/12/2020 8 :27 AM CDT POUCHOSCOPY REPORT 06/12/2020 7: 59 AM CDT PATHOLOGY Pathology 06/12/2020 7:53 AM CDT Ulcerative pancolitis with other complication ID SIGMOIDOSCOPY FLX DX W/COLLJ SPEC BR/WA IF PFRMD 06/12/2020 7:35 AM CDT Ulcerative pancolitis with other complication Case Notes with anesthesia documented in this encounter Results * QUANTIFERON TB GOLD (06/12/2020 8:27 AM CDT) QUANTIFERON TB GOLD PLUS Negative Negative 06/15/2020 8:01 PM CDT [facility] Comment: No interferon-gamma response to M. tuberculosis antigens was detected. Infection with M. tuberculosis is unlikely. A single negative result does not exclude infection with M. tuberculosis. In patients at high risk for M.tuberculosis infection, a second test should be considered in accordance with the 2017 ATS/IDSA/CDC Clinical Practice Guidelines for Diagnosis of Tuberculosis in Adults and Children [Porfirioinsyinan DM et. al. Clin. Infect. Dis. 2017;64(2):111-115]. The reference range for the 'TB1 Ag minus Nil Result' and 'TB2 Ag minus Nil Result' is an Interferon-gamma level <0.35 IU/mL. TB1 AG - NIL 0.00 IU/mL 06/15/2020 8:01 PM CDT [facility] TB2 AG - NIL 0.00 IU/mL 06/15/2020 8:01 PM CDT [facility] MITOGEN-NIL 6.19 IU/mL 06/15/2020 8:01 PM CDT [facility] NIL 0.01 IU/mL 06/15/2020 8:01 PM CDT [facility] Comment: Test Performed by: [facility] [address] [id number] Ring Making Machine Operator: James Oliveira M.D. Ph.D.; CLIA# [id number] Blood Venipuncture / Unknown 06/12/2020 8:27 AM CDT 06/12/2020 8:32 AM CDT Annette Whitney MD [facility] [place] [facility] * POUCHOSCOPY REPORT (06/12/2020 7:59 AM CDT) Narrative Procedure Note Annette Whitney MD - 06/12/2020 7:59 AM CDT [facility] Endoscopy Patient Name: Edgardo Elkins Procedure Date: 06/12/2020 Date of : 1970 Admit Type: Outpatient Attending MD: Annette Whitney , Procedure: Pouchoscopy Indications: Inflammatory bowel disease Providers: Annette Whitney Referring MD: Jasiel Freeman MD Medicines: Monitored Anesthesia Care Complications: None Procedure: Informed consent was obtained for the [...] ileoanal pouch and into the ari-terminal ileum. Informed consent was obtained for the procedure, including moderate sedation after risks were discussed. Based on the pre-procedure assessment, including review of the patient's medical history, medications, allergies, and review of systems, the patient was deemed to be an appropriate candidate for sedation. A timeout was performed. Continuous ECG monitoring, pulse oximetry, blood pressure monitoring, and direct observation were performed.The procedure was performed without difficulty. The patient tolerated the procedure well. The quality of the bowel preparation was fair. Estimated Blood Loss: Minimal Findings: The rectal cuff appeared healthy on forward and retroflexed view. This was biopsied for dysplasia. The J pouch was erythematous with shallow ulcerations, there appeared to be a nonobstructing stricture in the mid pouch. This was traversed without difficulty. There was also a non obstructing stricture in the pre pouch ileum with ulceration. The pre pouch ileum appeared otherwise healthy. 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 Follow up with me after Barium enema Annette Whitney, 06/12/2020 7:59:02 AM This report has been signed electronically. Number of Addenda: 0 [address] ; [place] [address] Annette Whitney MD GI PROCEDURE O RDERABLES * PATHOLOGY (06/12/2020 7:53 AM CDT) CASE REPORT Surgical Pathology Report ? Case: [id number] ? Authorizing Provider: ??Annette Whitney, ?? Collected: ? 06/12/2020 07:53 AM ? MD ? Ordering Location: ? [facility] [place] ??Received: ?06/12/2020 09:18 AM ? Pathologist: ? Al, Shalonda Barone, ? Specimens: ?? A) - Other, specify, bx pre-pouch ileum ? B) - Other, specify, bx pouch ? C) - Other, specify, bx rectal cuff ? 06/15/2020 11:22 AM CDT [facility] FINAL DIAGNOSIS Small intestine, pre-pouch ileum, endoscopic biopsy: - Active ileitis, patchy and very mild. Small intestine, pouch, endoscopic biopsy: - Small intestinal mucosa with reactive changes and patchy and mild active enteritis. Intestine, rectal cuff, endoscopic biopsy: - Small intestinal mucosa/rectal mucosa with patchy and mild active enteritis. 06/15/2020 11:22 AM [facility] ATIVE PROCEDURE 1: SIGMOIDOSCOPY FLEXIBLE 1: with anesthesia 06/15/2020 11:22 AM [facility] CLINICAL INFORMATION R/o Pouchitis Ulcerative pancolitis with other complication [K51.018] 06/15/2020 11:22 AM [facility] GROSS DESCRIPTION The specimens are received in three containers each labeled Edgardo Elkins . Received in the first container additionally labeled pre-pouch ileum biopsy is 1 piece of red-newman tissue measuring 0.2 x 0.2 x 0.1 cm. It is entirely submitted in cassette A1. Received in the second container additionally labeled pouch biopsy are 6 pieces of red-newman tissue ranging from 0.1 to 0.2 cm in greatest dimension. All are submitted in cassette B1. Received in the third container additionally labeled rectal cuff biopsy is 1 piece of pink-newman tissue measuring 0.2 x 0.2 x 0.1 cm. It is entirely submitted in cassette C1. [facility] 06/15/2020 11:22 AM [facility] MICROSCOPIC DESCRIPTION The slides are labeled [id number] and Edgardo Elkins. Sections of pre-pouch ileum identify preservation of mucosal architecture. Surface epithelium is intact. Intraepithelial lymphocytes are not increased. Focally, scattered neutrophils are present in the lamina propria and infiltrate surface epithelium. This is a nonspecific pattern of focal and mild, active ileitis. Granulomas and/or pyloric metaplasia are not identified. Sections of biopsy pouch sample small intestinal mucosa. There is overall preservation of villous architecture. Surface epithelium is intact. There is a patchy, mild increase in chronic inflammatory cells within the lamina propria. Scattered, mild infiltrates of neutrophils are present in the lamina propria and there is focal infiltration of surface epithelium. The inflammatory changes are mild. In the appropriate clinical setting, the findings could represent very mild pouchitis. Clinicopathologic correlation is necessary. Sections of rectal cuff include small intestinal mucosa that transitions to mucosa compatible with colonic/rectal mucosa. The small intestinal mucosa is remarkable for foci of mild villous blunting. Surface epithelium is intact. There is a patchy, mild increase in chronic inflammatory cells within the lamina propria. Small numbers of neutrophils are present in the lamina propria and focally infiltrate surface epithelium. The colonic/rectal mucosa is relatively unremarkable in appearance. 06/15/2020 11:22 AM CDT [facility] COMMENT Special stain and/or immunohistochemical results are interpreted with controls that demonstrate appropriate staining reactions. Note on use of immunocytochemistry reagents: This test was developed and its performance characteristics determined by [facility], Department of Laboratory Medicine. It has not been cleared or approved by the U.S. Food and Drug Administration. The FDA has determined that such clearance or approval is not necessary. The test is used for clinical purposes. It should not be regarded as investigational or for research. This laboratory is certified to perform high complexity testing. Cases may have been signed out in part or completely in the following laboratories: [facility], CLIA #[id number] [address] [place] [address] [facility] CLIA #[id number] [address] [place] [address] [facility] CLIA #[id number] [place] [address]. 06/15/2020 11:22 AM CDT [facility] Tissue (Other, specify) Collection / Unknown 06/12/2020 7:53 AM CDT 06/12/2020 9:18 AM CDT Comment:R/o Pouchitis Tissue specimen (specimen) (Other, specify) Collection / Unknown 06/12/2020 7:54 AM CDT 06/12/2020 9:18 AM CDT Comment:R/o Pouchitis Tissue specimen (specimen) (Other, specify) 06/12/2020 7:55 AM CDT 06/12/2020 9:18 AM CDT Comment:R/o Pouchitis Annette Whitney MD PATHOLOGY/CYTO LOGY ORDERABLES [facility] CLIA# [id number] [address] [place], [place] [address], [place] [id number] * 2019 NOVEL CORONAVIRUS (COVID-19) PCR DETECTION (06/06/2020 10:00 AM CDT) COVID-19 PCR NOT DETECTED NOT DETECTED 06/08/2020 1:21 AM CDT [facility] Comment: A Not Detected (negative) test result for this test means that SARS- CoV-2 RNA was not present in the specimen above the limit of detection. A negative result does not rule out the possibility of COVID-19 and should not be used as the sole basis for treatment or patient management decisions. ??If COVID-19 is still suspected, based on exposure history together with other clinical findings, re-testing should be considered in consultation with public health authorities. Laboratory test results should always be considered in the context of clinical observations and epidemiological data in making a final diagnosis and patient management decisions. Please review the Fact Sheets and FDA authorized labeling available for health care providers and patients using the following websites: https://www.Piehole.CardioLogs/home/Covid-19/HCP/NAAT/fact-sheet2 https://www.Piehole.CardioLogs/home/Covid-19/Patients/NAAT/ fact-sheet2 This test has been authorized by the FDA under an Emergency Use Authorization (EUA) for use by authorized laboratories. Due to the current public health emergency, [facility] is receiving a high volume of samples from a wide variety of swabs and media for COVID-19 testing. In order to serve patients during this public health crisis, samples from appropriate clinical sources are being tested. Negative test results derived from specimens received in non-commercially manufactured viral collection and transport media, or in media and sample collection kits not yet authorized by FDA for COVID-19 testing should be cautiously evaluated and the patient potentially subjected to extra precautions such as additional clinical monitoring, including collection of an additional specimen. Methodology: ??Nucleic Acid Amplification Test (NAAT) includes PCR or TMA ?? Additional information about COVID-19 can be found at the [facility] website: www.Fosubo.CardioLogs/Covid19. Upper Respiratory ENTIRE NASOPHARYNX / Unknown Collection / Unknown 06/06/2020 10:00 AM CDT 06/06/2020 3:24 PM CDT Narrative [facility] - 06/08/2020 1:21 AM CDT Performing Organization Information: ?Site ID: BERTO ?Name: [facility] ?Address: [address] [address] ?Director: James Peres D.O., MPH Annette Christina Whitney MD MICROBIOLOGY - GENERAL ORDERABLES [facility] [phone] documented in this encounter Visit Diagnoses Diagnosis Preop testing- Primary Preoperative examination, unspecified Ulcerative pancolitis with other complication Pouchitis documented in this encounter Administered Medications Inactive [...] Bag 06/12/2020 7:24 AM CDT 125 mL/hr documented in this encounter Active and Recently Administered Medications Times are shown in CDT. Continuous Medication Order 06/10/2020 06/11/2020 06/12/2020 lactated ringers infusion IV, at 125 mL/hr, PRE-PROCEDURE CONTINUOUS, Starting on Mon06/12/20 at 0730, Until Mon06/12/20 at 1122, Routine, Pre-Procedure 0724 (New Bag - Prov ider: Pat Hunter RN)0734 (New Bag - Provider: Philly Munoz CRNA)0740 (Continue from Pre-Op - Provider: Philly Munoz CRNA)0757 (Fluid Volume - Provider: Philly Munoz CRNA) documented in this encounter Care Teams Rotoprinter Relationship Specialty Start Date End Date Jasiel Freeman MD [address] [place] [phone] PCP - General Family Practice 08/15/17 documented as of this encounter
--- OUTSIDE RECORDS SUMMARY | 2024-10-24 05:30 | XMS_ITS | Encounter Summary ---
Author Organization [facility] Address [address] [facility] Laurenn: [place] [address] Care Team Providers Care Nursery Nurse Name Role Phone Jasiel Freeman MD Primary Care Provider Encounter Details Date Type Department Care Team (Latest Contact Info) Description 05/20/2020 Travel Social History Tobacco Use Types Packs/Day [...] [place] [address] [place] [address] Kitty Dover, ANP [address] [facility] [address] [place] [address] documented as of this encounter Visit Diagnoses Not on filedocumented in this encounter Care Teams Nursery Nurse Relationship Specialty Start Date End Date Jasiel Freeman MD [address] [place] [phone] PCP - General Family Practice 08/15/17 documented as of this encounter
--- OUTSIDE RECORDS SUMMARY | 2024-10-24 05:30 | XMS_ITS | Encounter Summary ---
Author Organization [employer] [facility] Address [address] [place] [address] Care Team Providers Care Senior Sharepoint Architect Name Role Phone Jasiel Freeman MD Primary Care Provider Reason for Visit * Auth/Cert Specialty Diagnoses / Procedures Referred By Lambert pizarro Referred To Contact Perioperative Diagnoses Ulcerative pancolitis with other complication Procedures AL SIGMOIDOSCOPY FLX DX W/COLLJ SPEC BR/WA IF PFRMD CHECKOUT SIGMOIDOSCOPY FLEXIBLE [facility] [address] [email or web address] [address] Referral ID Status Reason Start Date Expiration Date Visits Re quested Visits Authorized [id number] 1 1 Encounter Details Date Type Department Care Team (Late st Contact Info) Description 06/12/2020 7:40 AM CDT - 06/12/2020 8:20 AM CDT Surgery [facility] [place] [address] [place] [address] Annette Whitney MD [address] [facility] [address] [place] [address] CHECKOUT SIGMOIDOSCOPY FLEXIBLE Surgery Details Date/Time Status Location OR Service Patient Class Case Class Case Type Trauma Case? 06/12/2020 7:40 AM Posted [facility] GI 01 Gastroenterology Outpatient Elective No Panel 1 Procedure LRB Anes Op Region Wound Class Comments CHECKOUT SIGMOIDOSCOPY FLEXIBLE N/A General Anus with anesthesia Surgeon Surgeon Role Service Panel Annette Whitney MD Primary Gastroenterol ogy 1 Case Notes with anesthesia documented in this encounter Social History Tobacco [...] weeks, please call the office. Office Phone: [facility] [phone] [place] [phone] Exchange: documented in this encounter Medications at [...] by intraveous injection see administration instructions. Home USER EXPERIENCE LEAD to administer over 30 minutes every 8 [...] by intraveous injection see administration instructions. Home USER EXPERIENCE LEAD to administer over 30 minutes every 8 [...] 06/12/2020 7:59 AM CDTAssociated Order(s): POUCHOSCOPY REPORT [facility] Patient Name: Edgardo Elkins Procedure [...] of Addenda: [address]; [place] [address] documented in this encounter OR Notes * Zarina-OP - Ruth Swanson RN - 06/05/2020 6:04 PM CDT ?Routine Pre-Anesthesia Protocol for GI Lab Procedures [facility] Approved by: [facility] - Medical Executive Committee Approval Date: 04/15/2020 ORDERS ARE ENTERED ???PER PROTOCOL?? Enter the protocol in the patient???s electronic health record using [employer]: .anestprotocolgilab NURSING ORDERS: Monitoring: o Obtain and [...] appropriate, may confirm POC with: Nursing Only [id number] (this lab can be obtained at no [...] injectable antihyperglycemic agents and glucose is less ostr971 mg/dl o NPO patients who have NOT [...] MEDICATION ORDERS - entered by the Pharmacist associate professor of economics RESCUE ORDERS - entered by the Pharmacist or the watch crystal edge grinder Orders Patient has IV access and UNCONCIOUS, [...] Verbalizes understanding. 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 All of the patients questions answered. documented in this encounter Plan of Treatment Upcoming Encounters Date Type Department Care Team (Late st Contact Info) Description 02/13/2025 10:30 AM CDT Office Visit [facility] [place] [address] [place] [address] Kitty Dover, ANP [address] [place] [address] Scheduled Referrals Name Type Priority Associated Diagnoses [...] AM CDT Ulcerative pancolitis with other complication AL SIGMOIDOSCOPY FLX DX W/COLLJ SPEC BR/WA IF PFRMD 06/12/2020 7:35 AM CDT Ulcerative pancolitis with other complication Case Notes with anesthesia documented in this encounter Results * QUANTIFERON TB GOLD (06/12/2020 8:27 AM CDT) QUANTIFERON TB GOLD PLUS Negative Negative 06/15/2020 8:01 PM CDT [facility] Comment: No interferon-gamma response to M. tuberculosis [...] NIL 0.00 IU/mL 06/15/2020 8:01 PM CDT [facility] TB2 AG - NIL 0.00 IU/mL 06/15/2020 8:01 PM CDT [facility] MITOGEN-NIL 6.19 IU/mL 06/15/2020 8:01 PM CDT [facility] NIL 0.01 IU/mL 06/15/2020 8:01 PM CDT [facility] Comment: Test Performed by: [facility] [address] [place] [address] Gospel Singer: James Oliveira M.D. Ph.D.; CLIA# [id number] Blood Venipuncture / Unknown 06/12/2020 8:27 AM CDT 06/12/2020 8:32 AM CDT Annette Whitney MD CHEMISTRY SHELBY PRITCHETT [facility] * POUCHOSCOPY REPORT (06/12/2020 7:59 AM CDT) Narrative Procedure Note Annette Whitney MD - 06/12/2020 7:[address] [facility] Patient Name: Edgardo Elkins Procedure [...] of Addenda: [address]; [place] [address] Annette Whitney MD GI PROCEDURE O RDERABLES * PATHOLOGY (06/12/2020 7:53 AM CDT) CASE REPORT Surgical Pathology Report ? Case: [id number] ? Authorizing Provider: ??Annette Whitney, ?? Collected: ? 06/12/2020 07:53 AM ? MD ? Ordering Location: ? [facility] [place] ??Received: ?06/12/2020 09:18 AM ? Pathologist: ? Shalonda Melendez MD ? Specimens: ?? A) - Other, specify, bx pre-pouch ileum ? B) - Other, specify, bx pouch ? C) - Other, specify, bx rectal cuff ? 06/15/2020 11:22 AM [facility] Always Prepped [facility] FINAL DIAGNOSIS Small intestine, pre-pouch ileum, endoscopic biopsy: - Active ileitis, patchy and very mild. Small intestine, pouch, endoscopic biopsy: - Small intestinal mucosa with reactive changes and patchy and mild active enteritis. Intestine, rectal cuff, endoscopic biopsy: - Small intestinal mucosa/rectal mucosa with patchy and mild active enteritis. 06/15/2020 11:22 AM [facility] [employer] [facility] ATIVE PROCEDURE 1: SIGMOIDOSCOPY FLEXIBLE 1: with anesthesia 06/15/2020 11:22 AM [facility] CLINICAL INFORMATION R/o Pouchitis Ulcerative pancolitis with other complication [K51.018] 06/15/2020 11:22 AM [facility] GROSS DESCRIPTION The specimens are received in [...] It is entirely submitted in cassette C1. [facility] 06/15/2020 11:22 AM [facility] MICROSCOPIC DESCRIPTION The slides are labeled [id number] and Edgardo Elkins. Sections of pre-pouch ileum [...] relatively unremarkable in appearance. 06/15/2020 11:22 AM [facility] COMMENT Special stain and/or immunohistochemical results are interpreted with controls that demonstrate appropriate staining reactions. Note on use of immunocytochemistry reagents: This test was developed and its performance characteristics determined by [facility], Department of Laboratory Medicine. It has [...] part or completely in the following laboratories: [facility], CLIA #[id number] [address] [place] [address] [facility], CLIA #[id number] [address] [place] [address] [facility], CLIA #[id number] [address] [place] [address]. 06/15/2020 11:22 AM CDT [facility] Tissue (Other, specify) Collection / Unknown 06/12/2020 7:53 AM CDT 06/12/2020 9:18 AM CDT Comment:R/o Pouchitis Tissue specimen (specimen) (Other, specify) Collection / Unknown 06/12/2020 7:54 AM CDT 06/12/2020 9:18 AM CDT Comment:R/o Pouchitis Tissue specimen (specimen) (Other, specify) 06/12/2020 7:55 AM CDT 06/12/2020 9:18 AM CDT Comment:R/o Pouchitis Annette Whitney MD PATHOLOGY/CYTO LOGY ORDERABLES [facility] CLIA# [id number] [address] [place], [place] [address] [address] * 2019 NOVEL CORONAVIRUS (COVID-19) PCR DETECTION (06/06/2020 10:00 AM CDT) COVID-19 PCR NOT DETECTED NOT DETECTED 06/08/2020 1:21 AM CDT [facility] Comment: A Not Detected (negative) test result [...] providers and patients using the following websites: https://www.[employer].Corpsolv/home/Covid-19/HCP/NAAT/fact-sheet2 https://www.Goji/home/Covid-19/Patients/NAAT/ fact-sheet2 This test has been authorized by the FDA under an Emergency Use Authorization (EUA) for use by authorized laboratories. Due to the current public health emergency, [facility] is receiving a high volume of samples [...] about COVID-19 can be found at the [facility] website: www.Mozio.Corpsolv/Covid19. Upper Respiratory ENTIRE NASOPHARYNX / Unknown Collection / Unknown 06/06/2020 10:00 AM CDT 06/06/2020 3:24 PM CDT Narrative [facility] - 06/08/2020 1:21 AM CDT Performing Organization Information: ?Site ID: [place] ?Name: [facility] ?Address: [address] [address] ?Director: James Peres D.O., MPH Annette Christina Whitney MD MICROBIOLOGY - GENERAL ORDERABLES [facility] [phone] documented in this encounter Visit Diagnoses Diagnosis Preop testing- Primary Preoperative examination, unspecified Ulcerative pancolitis with other complication Pouchitis Ulcerative pancolitis with other complication documented in this encounter Administered Medications [...] CRNA) documented in this encounter Care Teams Senior Sharepoint Architect Relationship Specialty Start Date End Date Jasiel Freeman MD [address] [place] [phone] PCP - General Family Practice 08/15/17 documented as of this encounter
--- OUTSIDE RECORDS SUMMARY | 2024-10-24 05:30 | XMS_ITS | Encounter Summary ---
Author Organization [facility] Address [address] [place] [address] Care Team Providers Care Assistant Secretary Name Role Phone Jasiel Freeman MD Primary Care Provider Reason for Visit * Reason Onset Date Comments Results 05/20/2020 Encounter Details Date Type Department Care Team (Late st Contact Info) Description 05/20/[address] [facility] Gastroenterology [facility] [address] [address] Gilma Marcos PA [address] [facility] [address] [place] [address] Results Social History Tobacco Use Types Packs/Day [...] encounter Miscellaneous Notes * Telephone Encounter - Gilma Marcos PA - 05/20/2020 1:50 PM CDT Reviewed obstructive series Has significantly dilated/abnormal bowel loops in RUQ He has no colon, only SB with J pouch Tenderness and distention on exam in office Concern for obstruction. Needs f/u CT scan. Recommend ER Reviewed imaging and plan with Dr. Nair Called and discussed recommendations with pt. He will go over to ER for further immediate evaluation Called ER and updated them. Appreciate assistance. documented in this encounter Plan of Treatment Upcoming Encounters Date Type Department Care Team (Late st Contact Info) Description 02/13/2025 10:30 AM CDT Office Visit [facility] [place] [address] [facility] [address] [place] [phone] Kitty Dover, MIRTA [address] [place] [address] documented as of this encounter Visit Diagnoses Not on filedocumented in this encounter Care Teams Assistant Secretary Relationship Specialty Start Date End Date Jasiel Freeman MD [address] [place] [address] PCP - General Family Practice 08/15/17 documented as of this encounter
--- OUTSIDE RECORDS SUMMARY | 2024-10-24 05:30 | XMS_ITS | Encounter Summary ---
Author Organization [facility] Address [address] [place] [address] Care Team Providers Care Chief Estimator Name Role Phone Jasiel Freeman MD Primary Care Provider [phone] Encounter Details Date Type Department Care Team (Late st Contact Info) Description 03/05/2020 Specialty Pharmacy [facility] Specialty and Home Infusion - [address] [place] [address] Thanh Solares, PHARMACIST Social History [...] 6:50 AM CDT Sexual Orientation Straight 01/31/2024 6 :50 AM CDT documented as of this encounter Progress Notes * Thanh Solares, PHARMACIST - 03/05/2020 10:11 AM CDT Images from the original note were not included. [facility] Specialty & Infusion [facility] Edgardo Elkins 49 y.o. / male Patient's address on file: [address] [place] [address] Home Phone Work Phone [phone] Home Infusion Order Order Date: 11/26/18 Order(s): [...] (through 05/26/19) Per: Caren / KESHA Whitney [facility] Gastroenterology [address] [facility] [place], [address] [facility] [address] Generic substitution permitted Detailed Home Infusion Orders [...] any ordered labs to [facility] when possible. If labs are not taken to a [facility] lab, it is the responsibility of nursing to make sure labs are faxed to the pharmacy at [phone] Whitney. Catheter Care Catheter type: PIV placed by CHIEF CLERK SHELTER prior to each infusion Flush IV catheter [...] ?? Flushes provided by [facility] Specialty and Infusion pharmacy are for [...] Elkins (49 y.o. male) is active with [facility] Specialty and Infusion services receiving Entyvio every 8 weeks at home for ulcerative colitis. ?? Edgardo is due for his next infusion this week. Pharmacist contacted CHIEF CLERK SHELTER to coordinate delivery. RN will pickling grader today. Patient received last infusion without issue. No questions or concerns at this time. Patient has appointment with Dr. Nair on 01/29. 05/13/19 - Spoke with the patient who stated he is doing well. He has had no changes in his medication therapy or no clinical issues. Will ship medications and supplies to the patient. Thanh Solares MBA, [facility] 08/08/19 - Patient to receive infusion of Entyvio today after an insurance issue. Will send medications and supplies for the infusion. JEANNA 08/19/19 - Confirmed with the nurse pillowcase turner that the patient was scheduled to receive [...] He had no questions or concerns. RDS Timeline/Summary of Home Infusion Therapy: 11/15/17 - Start of Care / Entyvio week 0 11/29/17 - Week 2 12/28/17 - Week 6 02/21/18 - Begin maintenance dose every 8 weeks 11/26/18 - Approved x [address] Whitney Home Infusion Care Team IV Pharmacy: [facility] / [phone] Nursing Agency: [facility] Physician(s): Dr. Whitney Additional Relevant Data Insurance Information: Payor: RX [facility] / Plan: RX [employer] ADVANCE PARADIGM / Product Type: RX [employer] / IV access PIV placed by CHIEF CLERK SHELTER prior to each infusion Ht Readings from Last 3 Encounters: 11/13/19 5' 9 (1.753 m) 07/31/19 5' 9 (1.753 m) 01/29/19 5' 9 (1.753 m) Wt Readings from Last 3 Encounters: 11/13/19 88.4 kg (194 lb 12.8 oz) 07/31/19 86.5 kg (190 lb 12.8 oz) 01/29/19 85.8 kg (189 lb 3.2 oz) Patient Active Problem List Diagnosis Code ??? [...] D deficiency E55.9 Allergies Allergen Reactions ??? Remicade [Infliximab] Rash Social History Socioeconomic History ??? Marital status: Spouse name: Not on file ??? Number of children: Not on file ??? Years of education: Not on file ??? Highest education level: Not on file Occupational History Employer: [employer] Employer: [employer] Social Needs ??? Financial resource strain: Not on file ??? Food insecurity: Worry: Not on file Inability: Not on file ??? Transportation needs: Medical: Not on file Non-medical: Not on file Tobacco Use ??? Smoking status: Former Smoker Packs/day: 0.50 Years: 10.00 Pack years: 5.00 Types: Cigarettes Last attempt to quit: 06/09/2011 Years since quittin.7 ? ? Tobacco comment: off & on Substance and Sexual Activity ??? Alcohol use: Yes Comment: rarely ??? Drug use: No ??? Sexual activity: Not on file Lifestyle ??? Physical activity: Days per week: Not on file Minutes per session: Not on file ??? Stress: Not on file Relationships ??? Social connections: Talks on phone: Not on file Gets together: Not on file Attends bahai service: Not on file Active member of club or organization: Not on file Attends meetings of clubs or organizations: Not on file Relationship status: Not on file ??? Intimate partner violence: Fear of current or ex partner: Not on file Emotionally abused: Not on file Physically abused: Not on file Forced sexual activity: Not on file Other Topics Concern ??? Not on file Social History Narrative ??? Not on file Medication Review Current Outpatient Medications: ??? Syringe with Needle, Disp, (BD Luer-Jesusita Syringe) 3 mL 23 gauge x 1 1/2 Syringe, For use with B12 injections, Disp: 12 Each, Rfl: 2 ??? ergocalciferol (VITAMIN D2) 50,000 unit capsule, Take 1 Capsule (50,000 Units) by mouth every 2weeks., Disp: 8 Capsule, Rfl: 2 ??? diphenoxylate-atropine (LOMOTIL) 2.5-0.025 mg tablet, Take 1 Tablet by mouth 4 times daily as needed for Diarrhea/Loose Stools., Disp: 60 Tablet, Rfl: 1 ??? cyanocobalamin (VITAMIN B-12) 1,000 mcg/mL Solution, [...] by intraveous injection see administration instructions. Home CHIEF CLERK SHELTER to administer over 30 minutes every 8 weeks., Disp: 300 mg, Rfl: 3 ??? TESTOSTERONE, BULK, MISC, 1 mL by Misc.(Non-Drug; Combo Route) route., Disp: , Rfl: Med Review Issues Noted? No issues Lab Review BMP result (most recent): Lab Results Component Value Date/Time GLUCOSE 78 07/31/2019 11:33 AM GLUCOSE 111 (H) 01/29/2019 09:34 AM GLUCOSE 80 10/05/2017 10:19 AM BUN 12 07/31/2019 11:33 AM BUN 12 01/29/2019 09:34 AM BUN 14 10/05/2017 10:19 AM CREAT 1.26 (H) 07/31/2019 11:33 AM CREAT 1.24 (H) 01/29/2019 09:34 AM CREAT 1.49 (H) 10/05/2017 10:19 AM NA 140 07/31/2019 11:33 AM NA 141 01/29/2019 09:34 AM NA 141 10/05/2017 10:19 AM K 4.2 07/31/2019 11:33 AM K 4.2 01/29/2019 09:34 AM K 5.0 10/05/2017 10:19 AM CL 103 07/31/2019 11:33 AM CL 105 01/29/2019 09:34 AM CL 103 10/05/2017 10:19 AM CO2 26 07/31/2019 11:33 AM CO2 25 01/29/2019 09:34 AM CO2 26 10/05/2017 10:19 AM ANIONGAP 11 07/31/2019 11:33 AM ANIONGAP 11 01/29/2019 09:34 AM ANIONGAP 12 10/05/2017 10:19 AM MG 1.9 03/15/2012 01:05 PM MG 2.5 02/27/2012 06:05 AM PO4 4.5 02/27/2012 06:05 AM CrCl cannot be calculated (Patient's most recent lab result is older than the maximum 7 days allowed.). LFTs (most recent): Lab Results Component Value Date/Time ALKPHOS 78 07/31/2019 11:33 AM ALKPHOS 74 01/29/2019 09:34 AM ALKPHOS 64 10/05/2017 10:19 AM ALT 25 07/31/2019 11:33 AM ALT 24 01/29/2019 09:34 AM ALT 19 10/05/2017 10:19 AM AST 21 07/31/2019 11:33 AM AST 23 01/29/2019 09:34 AM AST 25 10/05/2017 10:19 AM BILITOTAL 0.3 07/31/2019 11:33 AM BILITOTAL 0.4 01/29/2019 09:34 AM BILITOTAL 0.3 10/05/2017 10:19 AM ALBUMIN 3.9 07/31/2019 11:33 AM ALBUMIN 3.9 01/29/2019 09:34 AM ALBUMIN 3.9 10/05/2017 10:19 AM LIPASE 40 02/22/2012 07:24 PM CBC result (most recent): Lab Results Component Value Date/Time WBC 5.5 07/31/2019 11:33 AM WBC 5.0 01/29/2019 09:34 AM WBC 5.6 10/05/2017 10:19 AM HGB 17.2 (H) 07/31/2019 11:33 AM HGB 18.4 (H) 01/29/2019 09:34 AM HGB 17.2 (H) 10/05/2017 10:19 AM HCT 52.3 (H) 07/31/2019 11:33 AM HCT 56.8 (H) 01/29/2019 09:34 AM HCT 54.7 (H) 10/05/2017 10:19 AM PLT 325 07/31/2019 11:33 AM PLT 303 01/29/2019 09:34 AM PLT 304 10/05/2017 10:19 AM MCV 86.7 07/31/2019 11:33 AM MCV 88.3 01/29/2019 09:34 AM MCV 86.6 10/05/2017 10:19 AM CRP result (most recent): Lab Results Component Value Date/Time CRP 8.3 (H) 07/31/2019 11:33 AM CRP 3.7 01/29/2019 09:34 AM CRP 3.2 10/05/2017 10:19 AM Lab Review Issues Noted? No issues [...] Provided to Patient ?? Pharmacist offer to counselor nurses' association ?? RN instruction ?? Printed teaching sheets ?? Drug information paperwork - EH patient leaflet FADI Silverman [facility] Specialty & Infusion - [place] [id number] [place] [address] , [address] [place] [address] documented in this encounter Plan of Treatment Upcoming Encounters Date Type Department Care Team (Late st Contact Info) Description 02/13/2025 10:30 AM CDT Office Visit [facility] IBD and Gastroenterology Center [place] [address] [facility] [address] [place] [address] Kitty Dover ANP [address] [place] [address] [place] [address] documented as of this encounter Visit Diagnoses Not on filedocumented in this encounter Care Teams Chief Estimator Relationship Specialty Start Date End Date Jasiel Freeman MD [address] [place] [phone] PCP - General Family Practice 08/15/17 documented as of this encounter
--- OUTSIDE RECORDS SUMMARY | 2024-10-24 05:30 | XMS_ITS | Encounter Summary ---
Author Organization [facility] Address [address] [place] [address] Care Team Providers Care Couture Alterations Dressmaker Name Role Phone Jasiel Freeman MD Primary Care Provider Reason for Visit * Reason Onset Date Comments Home Visit 05/05/2020 Encounter Details Date Type Department Care Team (Late st Contact Info) Description 05/05/2020 Patient Outreach [facility] Specialty and Home Infusion - [address] [place] [address] Irina Wyatt, RN Home Visit [...] Sign Reading Time Taken Comments Blood Pressure 132/88 05/05/2020 10:30 AM CDT Pulse 96 05/05/2020 10:30 AM CDT Temperature 37.4 ??C (99.3 ??F) 05/05/2020 10:30 AM C DT Respiratory Rate 16 05/05/2020 10:30 AM CDT Oxygen Saturation 95% 05/05/2020 10:30 AM CDT Inhaled Oxygen Concentration - - Weight - - Height - - Body Mass Index - - documented in this encounter Miscellaneous Notes * Telephone Encounter - Irina Wyatt RN - 05/05/2020 3:38 PM CDT Images from the original note were not included. [facility] Home Infusion Pharmacy [address] [place] [address] Home Infusion NURSING follow up Leonidas Elkins 1970 [address] [facility] [address] 05/05/2020 Provider - Irina Wyatt RN Driving start 830 Driving end 910 Visit start 910 Visit end 1040 Mileage 43 Contact numbers provided including after hours numbers [...] to Visit Medication Sig Dispense Refill ??? ergocalciferol (VITAMIN [...] by intraveous injection see administration instructions. Home REAL ESTATE OFFICE SUPERVISOR to administer over 30 minutes every 8 weeks. 300 mg 3 ??? TESTOSTERONE, BULK, MISC 1 mL by Misc.(Non-Drug; Combo Route) route. No current facility-administered medications on file prior to visit. No problem observed with learning needs - No cultural, quaker, or language barriers to learning Patient and [...] affect. Wt Readings from Last 3 Encounters: 04/29/20 84.4 kg (186 lb) 11/13/19 88.4 kg (194 lb 12.8 oz) 07/31/19 86.5 kg (190 lb 12.8 oz) Temp Readings from Last 3 Encounters: 03/09/20 97.1 ??F (36.2 ??C) 01/13/20 (!) 96 ??F (35.6 ??C) 11/19/19 97.1 ??F (36.2 ??C) BP Readings from Last 3 Encounters: 04/29/20 130/87 03/09/20 124/82 01/13/20 (!) 150/98 Pulse Readings from Last 3 Encounters: 04/29/20 83 03/09/20 88 01/13/20 80 Resp Readings from Last 3 Encounters: 03/09/20 16 01/13/20 16 11/19/19 16 1. shelter assessment and implementation of infusion therapy. Teaching of patient/caregiverrole in infusion therapy. Goal : Infusion therapy will be delivered per physicians orders. Infusion access will remain patent. Patient and caregiver will demonstrate an understanding of teaching and learning goals related to infusion therapy. Intervention : 24 gauge PIV placed to r hand without difficulty. Flushed PIV with 5-20 ml NS easilywith positive blood return. Entyvio vial (300 mg) reconstituted with 4.8 ml sterile water and swirled for 15 seconds. When clear, reconstituted med added to 250 ml LR. Base line vital signs checked. Infusion completed in 30 min. 30 ml LR used to flush remainder of Entyvio thru line. PIV DC'd, bandaid applied. 2. Management of home medication. Goal: Patient/caregiver will verbalized understanding of medication regime. Intervention: Patient manages all medications except Entyvio. Patient takes medication as ordered, knows purpose, basic side effects, and adverse reactions. Patient knows how to reorder medications. [facility]fusion Pharm[facility] will [...] [facility] IBD and Gastroenterology [facility] [place] [address] [facility] [address] [place] [address] Kitty Dover ANP [address] [place] [address] [place] [phone] documented as of this encounter Visit Diagnoses Not on filedocumented in this encounter Care Teams Couture Alterations Dressmaker Relationship Specialty Start Date End Date Jasiel Freeman MD [address] [place] [phone] PCP - General Family Practice 08/15/17 documented as of this encounter
--- OUTSIDE RECORDS SUMMARY | 2024-10-24 05:30 | XMS_ITS | Encounter Summary ---
Author Organization [facility] Address [address] [place] [address] Care Team Providers Care Hide Splitter Name Role Phone Jasiel Freeman MD Primary Care Provider Reason for Visit * Reason Onset Date Comments Home Visit 06/30/2020 Encounter Details Date Type Department Care Team (Late st Contact Info) Description 06/30/[address] [facility] Specialty and Home Infusion - [address] [place] [address] Irina Wyatt, RN Home Visit [...] Sign Reading Time Taken Comments Blood Pressure 120/94 06/30/2020 2:15 PM CDT Pulse 83 06/30/2020 2:15 PM CDT Temperature 36.7 ??C (98 ??F) 06/30/2020 2:15 PM CDT Respiratory Rate 16 06/30/2020 2:15 PM CDT Oxygen Saturation 98% 06/30/2020 2:15 PM CDT Inhaled Oxygen Concentration - - Weight - - Height - - Body Mass Index - - documented in this encounter Miscellaneous Notes * Telephone Encounter - Irina Wyatt RN - 06/30/2020 5:12 PM CDT Images from the original note were not included. [facility] Home Infusion Pharmacy [address] [place] [address] Home Infusion NURSING follow up Leonidas Elkins 1970 [address] [facility] [address] 06/30/2020 Provider - Irina Wyatt RN Driving start 1210 Driving end 1315 Visit start 1315 Visit end 1425 Mileage 47 Contact numbers provided including after [...] to Visit Medication Sig Dispense Refill ??? ondansetron (ZOFRAN) 4 mg Tablet Take 1 Tablet (4 mg) by mouth every 8 hours as needed for Nausea/Emesis. 15 Tablet None ??? ergocalciferol (VITAMIN D2) 50,000 unit capsule [...] by intraveous injection see administration instructions. Home FILM EDITOR SUPERVISOR to administer over 30 minutes every 8 weeks. 300 mg 3 ??? TESTOSTERONE, BULK, MISC 1 mL by Misc.(Non-Drug; Combo Route) route. No current facility-administered medications on file prior to visit. No problem observed with learning needs - No cultural, sikhism, or language barriers to learning Patient and [...] affect. Wt Readings from Last 3 Encounters: 06/12/20 80.6 kg (177 lb 9.6 oz) 05/20/20 83.9 kg (185 lb) 05/20/20 82.1 kg (181 lb) Temp Readings from Last 3 Encounters: 06/12/20 97 ??F (36.1 ??C) (Temporal) 05/20/20 98.2 ??F (36.8 ??C) (Oral) 05/05/20 99.3 ??F (37.4 ??C) BP Readings from Last 3 Encounters: 06/12/20 98/75 05/20/20 127/72 05/20/20 120/80 Pulse Readings from Last 3 Encounters: 06/12/20 77 05/20/20 85 05/05/20 96 Resp Readings from Last 3 Encounters: 06/12/20 18 05/20/20 18 05/05/20 16 1. nursing home assessment and implementation of infusion therapy. Teaching of patient/caregiverrole in infusion therapy. Goal : Infusion therapy will be delivered per physicians orders. Infusion access will remain patent. Patient and caregiver will demonstrate an understanding of teaching and learning goals related to infusion therapy. Intervention : 22 gauge PIV placed to r fa without difficulty. 2 attempts in left fa using 24 g needle, both infiltrated. Flushed PIV with 5-20 ml NS easily with positive blood return. Entyvio vial (300 mg) reconstituted with 4.8 ml sterile water and swirled for 15 seconds. When clear, reconstituted med added to 250 ml NS. Base line vital signs checked. Infusion completed in 30 min. 30 ml ns usedto flush remainder of Entyvio thru line. PIV DC'd, bandaid applied. 2. Management of home medication. Goal: Patient/caregiver will verbalized understanding of medication regime. Intervention: Patient manages all medications except Entyvio. Patient takes medication as ordered, knows purpose, basic side effects, and adverse reactions. Patient knows how to reorder medications. [facility] Infusion Pharm[facility] will [...] 02/13/2025 10:30 AM CDT Office Visit [facility] IBD [facility] Gastro[facility]ology [facility] [place] [address] [facility] [address] [place] [phone] Kitty Dover ANP [address] [place] [address] [facility] [address] [place] [address] documented as of this encounter Visit Diagnoses Not on filedocumented in this encounter Care Teams Hide Splitter Relationship Specialty Start Date End Date Jasiel Freeman MD [address] [place] [phone] PCP - General Family Practice 08/15/17 documented as of this encounter
--- OUTSIDE RECORDS SUMMARY | 2024-10-24 05:30 | XMS_ITS | Encounter Summary ---
Author Organization [facility] Address [address] [place] [address] Care Team Providers Care Structural Analyst Name Role Phone Jasiel Freeman MD Primary Care Provider [phone] Reason for Visit * Reason Onset Date Comments IV Med 01/15/2020 Called patient f or 48 hour post infusion follow up. Pt reports that they are feeling well, no side effects or adverse events after their infusion. Denies any new symptoms or concerns. Instructed to call if any questions/concerns arise. Has [facility] and MD contact information. Encounter Details Date Type Department Care Team (Late st Contact Info) Description 01/15/2020 Telephone [facility] Specialty and Home Infusion - [address] [place] [address] Irina Wyatt RN IV Med (Called [...] [facility] [place] [address] [facility] [address] [place] [phone] Kitty Dover, MIRTA [address] [facility] [address] [place] [phone] documented as of this encounter Visit Diagnoses Not on filedocumented in this encounter Care Teams Structural Analyst Relationship Specialty Start Date End Date Jaseil Freeman MD [address] [place] [phone] PCP - General Family Practice 08/15/17 documented as of this encounter
--- OUTSIDE RECORDS SUMMARY | 2024-10-24 05:30 | XMS_ITS | Encounter Summary ---
Author Organization [facility] Address [address] [place] [address] Care Team Providers Care Electroplater Helper Name Role Phone Jasiel Freeman MD Primary Care Provider Reason for Visit * Reason Onset Date Comments Abdominal Pain 05/18/2020 Encounter Details Date Type Department Care Team (Late st Contact Info) Description 05/18/2020 Telephone [facility] Gastroenterology [facility] [address] [facility] [address] [place] [address] Annette Whitney MD [address] [facility] [address] [place] [address] Abdominal Pain Social History Tobacco Use Types Packs/Day Years [...] encounter Miscellaneous Notes * Telephone Encounter - Zoë Villegas - 05/18/2020 2:45 PM CDT Edgardo called with having some abd pain that started late last night. Please call him back at [phone] Office visit 04/29/2020 Impression/Plan: 49 yo W severe UC s/p [...] doing fairly well, he has some cramping. ?? 1. Ulcerative colitis status post proctocolectomy with [...] vit B12 and D and TB test. ? Restart ergocalciferol for vitamin D deficiency- Q other week vitamin B12 injections weekly for vitamin B12 deficiency ? ICD-10-CM ICD-9-CM 1. Ulcerative pancolitis with other complication K51.018 556.6 ?? Patient Instructions 1. Continue Entyvio every 8 weeks 2. Blood work today 3. Pouchoscopy to look at J-pouch 4. Ergocalciferol- vitamin D every other week. 5. Lomotil as needed 6. Start Hyoscyamine every day in the morning, and you can also take at night if you need it. ? Orders Placed This Encounter ??? CBC WITH DIFFERENTIAL ??? C-REACTIVE PROTEIN ??? COMPREHENSIVE METABOLIC PANEL ??? VITAMIN B12 LEVEL ??? VITAMIN D 25 HYDROXY ??? QUANTIFERON TB GOLD ??? *Annette Whitney MD ??? ergocalciferol (VITAMIN D2) 50,000 unit capsule ??? diphenoxylate-atropine (LOMOTIL) 2.5-0.025 mg tablet ??? hyoscyamine 0.375 mg Extended Release 12 hour tablet ? documented in this encounter Plan of Treatment Upcoming Encounters Date Type Department Care Team (Late st Contact Info) Description 02/13/2025 10:30 AM CDT Office Visit [facility] IBD and Gastroenterology [facility] [place] [address] [facility] [address] [place] [phone] Kitty Dover, [facility] [address] [facility] [address] [place] [address] documented as of this encounter Visit Diagnoses Not on filedocumented in this encounter Care Teams Electroplater Helper Relationship Specialty Start Date End Date Jasiel Freeman MD [address] [place] [phone] PCP - General Family Practice 08/15/17 documented as of this encounter
--- OUTSIDE RECORDS SUMMARY | 2024-10-24 05:30 | XMS_ITS | Encounter Summary ---
Author Organization [facility] Address [address] [place]renn: [place] [address] Care Team Providers Care Labor Mediator Name Role Phone Jasiel Freeman MD Primary Care Provider [phone] Encounter Details Date Type Department Care Team (Latest Contact Info) Description 04/29/2020 Travel Social History Tobacco Use Types Packs/Day [...] [facility] IBD and Gastroenterology [facility] [place] [address] [place] [address] Kitty Dover, ANP [address] [facility] [address] [place] [address] documented as of this encounter Visit Diagnoses Not on filedocumented in this encounter Care Teams Labor Mediator Relationship Specialty Start Date End Date Jasiel Freeman MD [address] [place] [phone] PCP - General Family Practice 08/15/17 documented as of this encounter
--- OUTSIDE RECORDS SUMMARY | 2024-10-24 05:30 | XMS_ITS | Encounter Summary ---
Author Organization [facility] Address [address] [place] [address] Care Team Providers Care Pasteurizer Name Role Phone Jasiel Freeman MD Primary Care Provider [phone] Encounter Details Date Type Department Care Team (Late st Contact Info) Description 02/05/2020 Orders Only [facility] Gastroenterology [facility] [address] [facility] [address] [place] [address] Annette Whitney MD [address] [facility] [place] [address] Ulcerative pancolitis with other complication (Primary Dx) [...] [facility] [place] [address] [place] [address] Kitty Dover, MIRTA [address] [place] [address] [place] [address] documented as of this encounter Visit Diagnoses Diagnosis Ulcerative pancolitis with other complication- Primary documented in this encounter Care Teams Pasteurizer Relationship Specialty Start Date End Date Jasiel Freeman MD [address] [place] [phone] PCP - General Family Practice 08/15/17 documented as of this encounter
--- OUTSIDE RECORDS SUMMARY | 2024-10-24 05:30 | XMS_ITS | Encounter Summary ---
Author Organization [facility] Address [address] [place] [address] Care Team Providers Care Fiscal Agent Name Role Phone Jasiel Freeman MD Primary Care Provider Encounter Details Date Type Department Care Team (Latest Contact Info) Description 04/29/2020 11:04 AM CDT - 04/29/2020 11:59 PM CDT Hospital Encounter [facility] Laboratory Services Medical [place] [address] [facility] [facility], [place] [address] Annette Whitney MD [address] [place] [address] Discharge Disposition: Home or Self Care Social [...] Sig Dispensed Refills Start Date End Date Syringe with Needle, Disp, (BD Luer-Jesusita Syringe) [...] by intraveous injection see administration instructions. Home DIRECTOR PRODUCT SAFETY to administer over 30 minutes every 8 weeks. 300 mg 3 07/31/2019 11/14/2022 documented as of this encounter Plan of Treatment Upcoming Encounters Date Type Department Care Team (Late st Contact Info) Description 02/13/2025 10:30 AM CDT Office Visit [facility] IBD and Gastroenterology Center [place] [address] [facility] [address] [place] [phone] Kitty Dover, ANP [address] [facility] [address] [place] [address] documented as of this encounter Procedures Procedure Name Priority Date/Time Associated Diagnosis Comments QUANTIFERON TB GOLD Routine 04/29/2020 1 1:09 AM CDT Ulcerative pancolitis with other complication CBC WITH DIFFERENTIAL Routine 04/29/2020 11:09 AM CDT Ulcerative pancolitis with other complication VITAMIN D 25 HYDROXY Routine 04/29/2020 11:09 AM CDT Ulcerative pancolitis with other complication C-REACTIVE PROTEIN Routine 04/29/2020 11 :09 AM CDT Ulcerative pancolitis with other complication VITAMIN B12 LEVEL Routine 04/29/2020 11: 09 AM CDT Ulcerative pancolitis with other complication COMPREHENSIVE METABOLIC PANEL Routine 04/29/2020 11:09 AM CDT Ulcerative pancolitis with other complication documented in this encounter Results * QUANTIFERON TB GOLD (04/29/2020 11:09 AM CDT) Pathologist [facility] QUANTIFERON TB GOLD PLUS SEE COMMENTS 05/01/2020 7:02 PM CDT [facility] Comment: QuantiFERON-Tb Gold Plus, B was cancelled on 05/01/2020 at 19:02; One or more of collection tubes was under-filled (<0.8 mL sample). TB1 AG - NIL SEE COMMENTS 05/01/2020 7:02 PM CDT [facility] Comment: QuantiFERON-Tb Gold Plus, B was cancelled on 05/01/2020 at 19:02; One or more of collection tubes was under-filled (<0.8 mL sample). TB2 AG - NIL SEE COMMENTS 05/01/2020 7:02 PM CDT [facility] Comment: QuantiFERON-Tb Gold Plus, B was cancelled on 05/01/2020 at 19:02; One or more of collection tubes was under-filled (<0.8 mL sample). MITOGEN-NIL SEE COMMENTS 05/01/2020 7:02 PM CDT [facility] Comment: QuantiFERON-Tb Gold Plus, B was cancelled on 05/01/2020 at 19:02; One or more of collection tubes was under-filled (<0.8 mL sample). NIL SEE COMMENTS 05/01/2020 7:02 PM CDT [facility] Comment: QuantiFERON-Tb Gold Plus, B was cancelled on 05/01/2020 at 19:02; One or more of collection tubes was under-filled (<0.8 mL sample). Test Performed by: [facility] [address] [place] [address] Acting Section Chief: James Oliveira M.D. Ph.D.; CLIA# [id number] Blood Venipuncture / Unknown 04/29/2020 11:09 AM CDT 04/29/2020 11:39 AM CDT Annette Whitney MD CHEMISTRY ORDE SHREYAS [facility] * (ABNORMAL) VITAMIN D 25 HYDROXY (04/29/2020 11:09 AM CDT) Pathologist [facility] VITAMIN D TOTAL (25OH) 21(L) 30 - 100 ng/mL 04/29/2020 12:38 PM CDT [facility] [employer] [facility] Blood Venipuncture / Unknown 04/29/2020 11:09 AM CDT 04/29/2020 11:39 AM CDT Narrative [facility] [employer] [facility] - 04/29/2020 12:38 PM CDT Interpretive Data Chart: Deficient: ? 0 - 20 ng/mL Insufficient: ?21 - 29 ng/mL Sufficient: ?30 - 100 ng/mL Increased Risk of Hypercalciuria: ??>100 ng/ml Toxic: ? >150 ng/ml Annette Whitney MD CHEMISTRY ORDToño PRITCHETT Performing Organization Address [facility] de Phone Number [facility] [employer] [facility]# [id number] [address] [place] [address] * VITAMIN B12 LEVEL (04/29/2020 11:09 AM CDT) Pathologist [facility] VITAMIN B12 321 232-1,245 pg/mL 04/29/2020 12:38 PM CDT [facility] LABORATORY SERVICES [facility] Comment:It has been reported that between 5 to 10% of patients with values between 200 and 400 pg/mL may experience neuropsychiatric and hematologic abnormalities due to occult B12 deficiency. Less than 1% of patients with values above 400 pg/mL will have symptoms. Blood Venipuncture / Unknown 04/29/2020 11:09 AM CDT 04/29/2020 11:39 AM CDT Annette Whitney MD CHEMISTRY SHELBY PRITCHETT Performing Organization Address [facility] Co de Phone Number [facility] [employer] [facility]# [id number] [address] [place] [address] * (ABNORMAL) COMPREHENSIVE METABOLIC PANEL (04/29/2020 11:09 AM CDT) Pathologist [facility] SODIUM 140 136 - 145 mmol/L 04/29/2020 12:23 PM CDT [facility] - [facility] POTASSIUM 3.8 3.5 - 5.0 mmol/L 04/29/2020 12:23 PM CDT [facility] LAB[facility]ORY SERVICES - [facility] CHLORIDE 102 98 - 107 mmol/L 04/29/2020 12:23 PM CDT [facility] LABORATORY SERVICES - [facility] CO2 24 22 - 29 mmol/L 04/29/2020 12:23 PM CDT [facility] SERVICES - [facility] CALCIUM 8.8 8.6 - 10.2 mg/dL 04/29/2020 12:23 PM CDT [facility] LABORATORY SERVICES - . [facility] BUN 13 6 - 20 mg/dL 04/29/2020 12:23 PM T [facility] LABORATORY SERVICES - . [facility] CREATININE 1.19(H) 0.67 - 1.17 mg/dL 04/29/2020 12:23 PM CDT [facility] LABORATORY SERVICES - . [facility] GLUCOSE 83 74 - 99 mg/dL 04/29/2020 12:23 PM T [facility] LABORATORY SERVICES - [facility] TOTAL PROTEIN 7.1 6.7 - 8.6 g/dL 04/29/2020 12:23 PM T [facility]ATORY SERVICES - [facility] ALBUMIN 3.8 3.5 - 5.2 g/dL 04/29/2020 12:23 PM T [facility] LABORATORY SERVICES - . [facility] BILIRUBIN TOTAL 0.4 0.3 - 1.2 mg/dL 04/29/2020 12:23 PM T [facility] LABORATORY SERVICES - . [facility] ALKALINE PHOSPHATASE 60 40 - 129 U/L 04/29/2020 12:23 PM T [facility] LABORATORY SERVICES - . [facility] AST 19 <41 U/L 04/29/2020 12:23 PM T [facility] LABORATORY SERVICES - . [facility] ALT 19 <42 U/L 04/29/2020 12:23 PM T [facility] LABORATORY SERVICES - . [facility] GFR >60 >=60 mL/min/1.7 3 sq meter 04/29/2020 12:23 PM T [facility] LABORATORY SERVICES - [facility] Comment: eGFR has not been validated for [...] mL/min/1.7 3 sq meter 04/29/2020 12:23 PM CDT [facility] LABORATORY SERVICES - . [facility] ANION GAP 14 8 - 16 mmol/L 04/29/2020 12:23 PM CDT [facility] LABORATORY [facility] Blood Venipuncture / Unknown 04/29/2020 11:09 AM CDT 04/29/2020 11:39 AM CDT Narrative [facility] LABORATORY [facility] - 04/29/2020 12:23 PM CDT Samples containing indocyanine green cause interferences on Total and/or Direct Bilirubin and must not be measured. Annette Whitney MD CHEMISTRY ORDToño PRITCHETT [facility] CLIA# [id number] [address] [place] [address] * C-REACTIVE PROTEIN (04/29/2020 11:09 AM CDT) Pathologist [facility] CRP 2.6 <5.0 mg/L 04/29/2020 12:23 PM CDT [facility] Blood Venipuncture / Unknown 04/29/2020 11:09 AM CDT 04/29/2020 11:39 AM CDT Annette Whitney MD CHEMISTRY ORDToño PRITCHETT [facility] CLIA# [id number] [address] [place] [address] * (ABNORMAL) CBC WITH DIFFERENTIAL (04/29/2020 11:09 AM CDT) WBC 6.8 4.0 - 9.8 K/uL 04/29/2020 11:57 AM CDT [facility] LABORATORY [facility] RBC 6.26(H) 4.50 - 5.40 M/uL 04/29/2020 11:57 AM CDT [facility] LABORATORY [facility] HEMOGLOBIN 16.6(H) 13.6 - 16.5 g/dL 04/29/2020 11:57 AM CDT [facility] LABORATORY [facility] HEMATOCRIT 53.8(H) 40.0 - 48.0 % 04/29/2020 11:57 AM CDT [facility] - [facility] MCV 85.9 82.0 - 99.0 fL 04/29/2020 11:57 AM CDT [facility] - [facility] MCH 26.5(L) 27.2 - 32.6 pg 04/29/2020 11:57 AM CDT [facility] - [facility] MCHC 30.9(L) 31.5 - 35.5 g/dL 04/29/2020 11:57 AM CDT [facility] - [facility] RDW 15.8(H) 11.5 - 14.5 % 04/29/2020 11:57 AM CDT [facility] RDW-STDEV 48.7 37.1 - 48.7 fL 04/29/2020 11:57 AM CDT [facility] PLATELETS 294 140 - 350 K/uL 04/29/2020 11:57 AM CDT [facility] MPV 10.1 9.3 - 12.4 fL 04/29/2020 11:57 AM CDT [facility] NEUTROPHILS 69 % 04/29/2020 11:57 AM CDT [facility] LYMPHOCYTES 18 % 04/29/2020 11:57 AM CDT [facility] - . [facility] MONOCYTES 11 % 04/29/2020 11:57 AM CDT [facility] EOSINOPHILS 2 % 04/29/2020 11:57 AM CDT [facility] BASOPHILS 1 % 04/29/2020 11:57 AM CDT [facility] - . [facility] IMMATURE GRANULOCYTES 0 % 04/29/2020 11:57 AM CDT [facility] - [facility] NEUTROPHIL ABSOLUTE 4.67 1.90 - 7.00 K/uL 04/29/2020 11:57 AM CDT [facility] - . [facility] LYMPHOCYTE ABSOLUTE 1.21 0.70 - 4.50 K/uL 04/29/2020 11:57 AM CDT [facility] - . [facility] MONOCYTE ABSOLUTE 0.72 0.10 - 1.30 K/uL 04/29/2020 11:57 AM CDT [facility] - . [facility] EOSINOPHIL ABSOLUTE 0.13 0.00 - 0.70 K/uL 04/29/2020 11:57 AM CDT [facility] LABORATORY SERVICES - [facility] BASOPHILS ABSOLUTE 0.04 0.00 - 0.20 K/uL 04/29/2020 11:57 AM CDT [facility] LABORATORY SERVICES - [facility] IMMATURE GRANULOCYTES ABSOLUTE 0.02 0.00 - 0.03 K/uL 04/29/2020 11:57 AM CDT [facility] LABORATORY SERVICES - [facility] Blood Venipuncture / Unknown 04/29/2020 11:09 AM CDT 04/29/2020 11:39 AM CDT Annette Whitney MD HEMATOLOGY ORD ERABLES [facility] LABORATORY SERVICES [facility]# [id number] [address] [place] [address] documented in this encounter Visit Diagnoses Diagnosis Ulcerative pancolitis with other complication documented in this encounter Care Teams Fiscal Agent Relationship Specialty Start Date End Date Jasiel Freeman MD [address] [place] [address] PCP - General Family Practice 08/15/17 documented as of this encounter
--- OUTSIDE RECORDS SUMMARY | 2024-10-24 05:30 | XMS_ITS | Encounter Summary ---
Author Organization [facility] Address [address] [place] [address] Care Team Providers Care Neurology Manager Name Role Phone Jasiel Freeman MD Primary Care Provider Encounter Details Date Type Department Care Team (Late st Contact Info) Description 06/26/2020 Specialty Pharmacy [facility] Specialty and Home Infusion - [address] [place] [address] Thanh Solares, PHARMACIST Social History [...] Progress Notes * Thanh Solares, PHARMACIST - 06/26/2020 8:45 AM CDT Images from the original note were not included. [facility] [place] Edgardo Elkins 49 y.o. / male Patient's address on file: [address] [address] Home Phone Work Phone Home Infusion Order [...] 05/26/19) Per: Caren / KESHA Whitney [facility] Gastroenterology [address], [address] [facility] [address] Generic substitution permitted Detailed Home Infusion Orders [...] RN will take any ordered labs to [facility] when possible. If labs are not taken to a [facility] lab, it is the responsibility of nursing to make sure labs are faxed to the pharmacy at [phone] Whitney. Catheter Care Catheter type: PIV placed by TRUST CLERK prior to each infusion Flush IV catheter [...] lab draws/line complications. ?? Flushes provided by [facility] Specialty and Infusion pharmacy are for [...] Elkins (49 y.o. male) is active with [facility] Specialty and Infusion services receiving Entyvio every 8 weeks at home for ulcerative colitis. ?? Edgardo is due for his next infusion this week. Pharmacist contacted TRUST CLERK to coordinate delivery. RN will chicken picker today. Patient received last infusion without [...] JEANNA 08/19/19 - Confirmed with the nurse field [...] He had no questions or issues. RDS Timeline/Summary of Home Infusion Therapy: 11/15/17 - Start of Care / Entyvio week 0 11/29/17 - Week 2 12/28/17 - Week 6 02/21/18 - Begin maintenance dose every 8 weeks 11/26/18 - Approved x [address] Whitney Home Infusion Care Team IV Pharmacy: [facility] / [phone] Nursing Agency: [facility] Physician(s): Dr. Whitney Additional Relevant Data Insurance Information: Payor: RX [facility] / Plan: RX [employer] ADVANCE PARADIGM / Product Type: RX [employer] / IV access PIV placed by TRUST CLERK prior to each infusion Ht Readings from [...] level: Not on file Occupational History Employer: [employer] Employer: [employer] Social Needs ??? Financial resource strain: Not on file ??? Food insecurity Worry: Not on file Inability: Not on file ??? Transportation needs Medical: Not on file Non-medical: Not on file Tobacco Use ??? Smoking status: Former Smoker Packs/day: 0.50 Years: 10.00 Pack years: 5.00 Types: Cigarettes Last attempt to quit: 06/09/2011 Years since quittin.0 ??? Smokeless tobacco: [...] file Gets together: Not on file Attends hindu service: Not on file Active member of [...] file Medication Review Current Outpatient Medications: ??? cefdinir (OMNICEF) 300 mg capsule, Take 1 Capsule (300 mg) by mouth every 12 hours for 14 days., Disp: 28 Capsule, Rfl: 0 ??? ondansetron (ZOFRAN) 4 mg Tablet, Take [...] Stools., Disp: 60 Tablet, Rfl: 1 ??? hyoscyamine 0.375 mg Extended Release 12 hour tablet, Take 1 Tablet (0.375 mg) by mouth every 12 hours as needed for Discomfort., Disp: 60 Tablet, Rfl: 1 ??? Syringe [...] by intraveous injection see administration instructions. Home TRUST CLERK to administer over 30 minutes every 8 [...] Provided to Patient ?? Pharmacist offer to drug counselor ?? RN instruction ?? Printed teaching sheets ?? Drug information paperwork - EH patient leaflet FADI Silverman [facility] Infusion [facility] [address] [address] , [address] [place] [address] documented in this encounter Plan of Treatment Upcoming Encounters Date Type Department Care Team (Late st Contact Info) Description 02/13/2025 10:30 AM CDT Office Visit [facility] IBD and Gastroenterology Center [place] [address] [place] [address] Kitty Dvoer ANP [address] [place] [address] documented as of this encounter Visit Diagnoses Not on filedocumented in this encounter Care Teams Neurology Manager Relationship Specialty Start Date End Date Jasiel Freeman MD [address] [place] [phone] PCP - General Family Practice 08/15/17 documented as of this encounter
--- OUTSIDE RECORDS SUMMARY | 2024-10-24 05:30 | XMS_ITS | Encounter Summary ---
Author Organization [facility] Address [address] [place] [address] Care Team Providers Care Body Liner Name Role Phone Jasiel Freeman MD Primary Care Provider [phone] Encounter Details Date Type Department Care Team (Late st Contact Info) Description 04/29/2020 Orders Only [facility] Gastroenterology [facility] [address] [place] [address] Annette Whitney MD [address] [facility] [address] [place] [address] Social History Tobacco Use Types Packs/Day Years [...] [facility] IBD and Gastroenterology Center [place] [address] [place] [address] Kitty Dover, MIRTA [address] [place] [address] documented as of this encounter Visit Diagnoses Not on filedocumented in this encounter Care Teams Body Liner Relationship Specialty Start Date End Date Jasiel Freeman MD [address] [place] [phone] PCP - General Family Practice 08/15/17 documented as of this encounter
--- OUTSIDE RECORDS SUMMARY | 2024-10-24 05:30 | XMS_ITS | Encounter Summary ---
Author Organization [facility] Address [address] [place] [address] Care Team Providers Care Heavy Equipment Sales Manager Name Role Phone Jasiel Freeman MD Primary Care Provider Encounter Details Date Type Department Care Team (Late st Contact Info) Description 07/01/2020 Chart Note [facility] Gastroenterology [place] [address] [place] [address] Joaquina Prescott, RN Social History Tobacco Use Types Packs/Day Years [...] as of this encounter Progress Notes * Annette Whitney MD - 07/02/2020 2:33 PM CDT P2P with clinica pharmacist. Approval for 1 year of entyvio 300mg Q4 weeks [place] number [id number]. * Joaquina Prescott, RN - 07/01/2020 9:41 AM CDT [employer] P2P process for denial of q4wk Entyvio for no proof clinical response.Called [phone] Nair 07/02/2020 230P FAMILY AND CONSUMER EDUCATION TEACHER/330P EST To be called at her cell number. (Asked for Road Consultant. Was told that would be with Registered Pharmacist Prashant and to get to speak to a Medical person would need to write an appeal. Which I will work on in case it is needed after P2P.) documented in this encounter Plan of Treatment Upcoming Encounters Date Type Department Care Team (Late st Contact Info) Description 02/13/2025 10:30 AM CDT Office Visit [facility] IBD and Gastroenterology Center [place] [address] [place] [address] Kitty Dover ANP [address] [place] [place] [address] documented as of this encounter Visit Diagnoses Not on filedocumented in this encounter Care Teams Heavy Equipment Sales Manager Relationship Specialty Start Date End Date Jasiel Freeman MD [address] [place] [phone] PCP - General Family Practice 08/15/17 documented as of this encounter
--- OUTSIDE RECORDS SUMMARY | 2024-10-24 05:30 | XMS_ITS | Encounter Summary ---
Author Organization [facility] Address [address] Laurenn: [place] [address] Care Team Providers Care Poultry Barn Manager Name Role Phone Jasiel Freeman MD Primary Care Provider Encounter Details Date Type Department Care Team (Latest Contact Info) Description 06/12/2020 Travel Social History Tobacco Use Types Packs/Day [...] [facility] [place] [address] [place] [address] Kitty Dover, ANP [address] [facility] [address] [place] [phone] documented as of this encounter Visit Diagnoses Not on filedocumented in this encounter Care Teams Poultry Barn Manager Relationship Specialty Start Date End Date Jasiel Freeman MD [address] [place] [phone] PCP - General Family Practice 08/15/17 documented as of this encounter
--- OUTSIDE RECORDS SUMMARY | 2024-10-24 05:31 | XMS_ITS | Encounter Summary ---
Author Organization [facility] Address [address] [place] [address] Care Team Providers Care Speech Therapy Teacher Name Role Phone Jasiel Freeman MD Primary Care Provider Encounter Details Date Type Department Care Team (Late Contact Info) Description 07/17/2019 Orders Only [facility] Gastroenterology [facility] [address] [place] [address] Annette Whitney MD 1 [facility] [place] [phone] Social History Tobacco Use Types Packs/Day Years [...] Description 02/13/2025 10:30 AM CDT Office Visit [facility] [place] [id number] [facility] [address] [place] [address] Kitty Dover, ANP [address] [facility] [address] [place] [address] documented as of this encounter Visit Diagnoses Not on filedocumented in this encounter Care Teams Speech Therapy Teacher Relationship Specialty Start Date End Date Jasiel Freeman MD [address] [place] [phone] PCP - General Family Practice 08/15/17 documented as of this encounter
--- OUTSIDE RECORDS SUMMARY | 2024-10-24 05:31 | XMS_ITS | Encounter Summary ---
Author Organization [facility] Address 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 [place] [address] [address] Referral ID Status Reason Start Date Expiration Date Visits Re quested Visits Authorized [id number] Closed 07/15/2019 08/14/2020 1 0 Encounter Details Date Type Department Care Team (Latest Contact Info) Description 07/15/2019 Orders Only [facility] Gastroenterology [facility] [address] [place] [phone] Annette Whitney MD 1 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
--- OUTSIDE RECORDS SUMMARY | 2024-10-24 05:31 | XMS_ITS | Encounter Summary ---
Author Organization [facility] Address [address] [place] [address] Care Team Providers Care Quality Assurance Practice Manager Name Role Phone Jasiel Freeman MD Primary Care Provider Reason for Visit * Reason Onset Date Comments Home Visit 08/08/2019 Encounter Details Date Type Department Care Team (Late st Contact Info) Description 08/08/2019 Patient Outreach [facility] [address] [address] Irina Wyatt, JIE Home Visit [...] Reading Time Taken Comments Blood Pressure 128/88 08/08/2019 3:40 PM CDT Pulse 82 08/08/2019 3:40 PM CDT Temperature 36.6 ??C (97.8 ??F) 08/08/2019 3:40 PM CD T Respiratory Rate 18 08/08/2019 3:40 PM CDT Oxygen Saturation 94% 08/08/2019 3:40 PM CDT Inhaled Oxygen Concentration - - Weight - - Height - - Body Mass Index - - documented in this encounter Miscellaneous Notes * Telephone Encounter - Irina Wyatt RN - 08/09/2019 8:20 AM CDT Images from the original note were not included. [facility] [address] [facility] [address] [place] [address] Home Infusion NURSING follow up Leonidas Elkins 1970 [address] [facility] [address] 08/08/19 Provider - Irina Wyatt RN Driving start 1300 Driving end 1410 Visit start 1410 Visit end 1555 Mileage 58 Contact numbers provided including after hours numbers [...] to Visit Medication Sig Dispense Refill ??? SOLU-MEDROL, PF, 40 mg/mL Recon Soln [...] ALLERGICREACTION. DISCARD EXCESS 1 mL 0 ??? Cyanocobalamin (NASCOBAL) 500 mcg/spray Manquin, Non-Aerosol 1 Manquin by See Admin Instructions route every 7 days. 1 spray, 1 nostril, 1x week 1 mL 12 ??? ergocalciferol (VITAMIN D2) 50,000 unit capsule Take 1 Capsule (50,000 Units) by mouth every 7 days. For 8 weeks then once every other week. 8 Capsule 2 ??? vedolizumab (ENTYVIO) 300 mg Recon Soln Inject 300 mg by intraveous injection see administration instructions. Home LEASING SPECIALIST to administer over 30 minutes every 8 weeks. 300 mg 3 ??? cefdinir (OMNICEF) 300 mg capsule Take 1 Capsule (300 mg) by mouth every 12 hours for 14 days. 28 Capsule 0 ??? diphenoxylate-atropine (LOMOTIL) 2.5-0.025 mg tablet Take 1 Tablet by mouth 4 times daily as needed for Diarrhea/Loose Stools. 60 Tablet 1 ??? metroNIDAZOLE (FLAGYL) 500 mg tablet Take 1 Tablet (500 mg) by mouth 3 times daily. 30 Tablet 0 ??? metroNIDAZOLE (FLAGYL) 250 mg tablet Take 1 Tablet (250 mg) by mouth 3 times daily. 90 Tablet 0 ??? TESTOSTERONE, BULK, MISC 1 mL by Misc.(Non-Drug; Combo Route) route. No current facility-administered medications on file prior to visit. No problem observed with learning needs - No cultural, rastafari, or language barriers to learning Patient and [...] is no tenderness. GI/: clear yellow urine, 5 loose stools per day,denies cramping or pain, no concerns Musculoskeletal: Normal range of motion. Neurological: alert and oriented to person, place, and time. Skin: Skin is warm and dry. Psychiatric: normal mood and affect. Wt Readings from Last 3 Encounters: 07/31/19 86.5 kg (190 lb 12.8 oz) 01/29/19 85.8 kg (189 lb 3.2 oz) 10/05/17 87.5 kg (192 lb 12.8 oz) Temp Readings from Last 3 Encounters: 05/15/19 97.4 ??F (36.3 ??C) 03/21/19 (!) 95.9 ??F (35.5 ??C) (Oral) 01/24/19 (!) 96.4 ??F (35.8 ??C) (Oral) BP Readings from Last 3 Encounters: 07/31/19 (!) 151/92 05/15/19 138/84 03/21/19 132/82 Pulse Readings from Last 3 Encounters: 07/31/19 94 05/15/19 88 03/21/19 76 Resp Readings from Last 3 Encounters: 03/21/19 16 01/24/19 16 11/29/18 16 1. [facility] assessment and implementation of infusion therapy. Teaching [...] Visit [facility] [place] [address] [facility] [address] [place] [address] Kitty Dover ANP [address] [place] [phone] documented as of this encounter Visit Diagnoses Not on filedocumented in this encounter Care Teams Quality Assurance Practice Manager Relationship Specialty Start Date End Date Jasiel Freeman MD [address] [place] [phone] PCP - General Family Practice 08/15/17 documented as of this encounter
--- OUTSIDE RECORDS SUMMARY | 2024-10-24 05:31 | XMS_ITS | Encounter Summary ---
Author Organization [facility] Address [address] [place] [address] Care Team Providers Care Obiee Obia Solution Architect Name Role Phone Jasiel Freeman MD Primary Care Provider Reason for Visit * Reason Onset Date Comments Home Visit 09/23/2019 Encounter Details Date Type Department Care Team (Late st Contact Info) Description 09/23/2019 Patient Outreach [facility] [address] [address] Irina Wyatt, JIE Home Visit [...] Reading Time Taken Comments Blood Pressure 124/82 09/23/2019 3:15 PM ENERGY CROP FARMER Pulse 85 09/23/2019 3:15 PM ENERGY CROP FARMER Temperature 36.5 ??C (97.7 ??F) 09/23/2019 3:15 PM CS T Respiratory Rate 16 09/23/2019 3:15 PM ENERGY CROP FARMER Oxygen Saturation 95% 09/23/2019 3:15 PM ENERGY CROP FARMER Inhaled Oxygen Concentration - - Weight - - Height - - Body Mass Index - - documented in this encounter Miscellaneous Notes * Telephone Encounter - Irina Wyatt RN - 09/24/2019 4:41 PM CST Images from the original note were not included. [facility] [address] [facility] [address] [place] [address] Home Infusion NURSING follow up Tamekaraad Edgardoisaiah Elkins 1970 [address] [facility] [address] 09/23/19 Provider - Irina Wyatt RN Driving start 1315 Driving end 1405 Visit start 1405 Visit end 1520 Mileage 32 Contact numbers provided including after hours numbers [...] mL 0 ??? Cyanocobalamin (NASCOBAL) 500 mcg/spray [place], Non-Aerosol 1 [place] by See Admin Instructions route every 7 days. 1 spray, 1 nostril, 1x week 1 mL 12 ??? ergocalciferol (VITAMIN D2) 50,000 unit capsule Take 1 Capsule (50,000 Units) by mouth every 7 days. For 8 weeks then once every other week. 8 Capsule 2 ??? vedolizumab (ENTYVIO) 300 mg Recon Soln Inject 300 mg by intraveous injection see administration instructions. Home TOOL AND GAUGE INSPECTOR to administer over 30 minutes every 8 weeks. 300 mg 3 ??? diphenoxylate-atropine (LOMOTIL) 2.5-0.025 mg tablet Take [...] observed with learning needs - No cultural, episcopalian, or language barriers to learning Patient and [...] oz) Temp Readings from Last 3 Encounters: 08/23/19 97 ??F (36.1 ??C) 08/08/19 97.8 ??F (36.6 ??C) (Oral) 05/15/19 97.4 ??F (36.3 ??C) BP Readings from Last 3 Encounters: 08/23/19 (!) 122/94 08/08/19 128/88 07/31/19 (!) 151/92 Pulse Readings from Last 3 Encounters: 08/23/19 78 08/08/19 82 07/31/19 94 Resp Readings from Last 3 Encounters: 08/23/19 16 08/08/19 18 03/21/19 16 1. correction assessment and implementation of infusion therapy. Teaching [...] in approximately 8 weeks for Entyvio infusion GY CROP FARMER documented in this encounter Plan of Treatment Upcoming Encounters Date Type Department Care Team (Late st Contact Info) Description 02/13/2025 10:30 AM CDT Office Visit [facility] [place] [address] [facility] [address] [place] [phone] Kitty Dover ANP [address] [facility] [address] [place] [phone] documented as of this encounter Visit Diagnoses Not on filedocumented in this encounter Care Teams Obiee Obia Solution Architect Relationship Specialty Start Date End Date Jasiel Freeman MD [address] [place] [phone] PCP - General Family Practice 08/15/17 documented as of this encounter
--- OUTSIDE RECORDS SUMMARY | 2024-10-24 05:31 | XMS_ITS | Encounter Summary ---
Author Organization [facility] Address [address] [place] [address] Care Team Providers Care Check Embosser Name Role Phone Jasiel Freeman MD Primary Care Provider Reason for Visit * Reason Comments Medication Problem Entyvio through [facility] [employer] UPDATE 08/05/19 Encounter Details Date Type Department Care Team (Late st Contact Info) Description 08/05/2019 Chart Note [facility] G[facility]enter[facility] [place] [address] [address] Joaquina Prescott, lockstitch zipper setter Problem (Entyvio through [employer] UPDATE 08/05/19) Social History Tobacco Use Types Packs/Day Years [...] as of this encounter Progress Notes * Joaquina Prescott, RN - 08/05/2019 3:01 PM CDT Spoke with Edgardo today. He called [facility] and they told him the Referral orders were not satisfactory for the script. Called in to [facility] [place] at , option 2. Spoke with Nils there. Did callin the script and verified he was on maintenance dosing at this time. He will push it through to the Home infusion. I reminded him that we were unable to use their home [place]. According to Nils, the only way they wouldn't is due to Nursing regulations stating that they can not infuse in [place] if the physician is not licensed in that state. I advised him that this patient had been receiving home infusions from [facility] and Home Infusions at his home for multiple doses. He doesn't know if they will be able to proceed, if Dr. Nair is not licensed in [place]. Is there a physician in the practice who may be licensed in [place] that would be willing to sign off on these orders? I did reiterate that this patient is 1 month past due on his infusion. documented in this encounter Plan of Treatment Upcoming Encounters Date Type Department Care Team (Late st Contact Info) Description 02/13/2025 10:30 AM CDT Office Visit [facility] [place] [address] [place] [address] Kitty Dover ANP [address] [place] [address] documented as of this encounter Visit Diagnoses Not on filedocumented in this encounter Care Teams Check Embosser Relationship Specialty Start Date End Date Jasiel Freeman MD [address] [place] [phone] PCP - General Family Practice 08/15/17 documented as of this encounter
--- OUTSIDE RECORDS SUMMARY | 2024-10-24 05:31 | XMS_ITS | Encounter Summary ---
Author Organization [facility] Address [address] [place] [address] Care Team Providers Care Biologist Aide Name Role Phone Jasiel Freeman MD Primary Care Provider Reason for Visit * Reason Comments Information correct PA for Entyv io verification Encounter Details Date Type Department Care Team (Late st Contact Info) Description 09/03/2019 Chart Note [facility] Gastroenterology [facility] [address] [address] Joaquina Prescott, RN Information (correct PA for Entyvio verification) Social History Tobacco Use Types Packs/Day Years [...] of this encounter Progress Notes * Joaquina Prescott RN - 09/03/2019 11:49 AM CST 09/03/2019-Tiago jarrett [facility], Case no. [id number], has been extended from 08/07/2019 until 02/06/2020 for a total of 6 infusions. Edgardo has had week 0 and week 2 of the re-induction of Entyvio and is being infused by [facility]. BING INSTALLER documented in this encounter Plan of Treatment Upcoming Encounters Date Type Department Care Team (Late st Contact Info) Description 02/13/2025 10:30 AM CDT Office Visit [facility] [place] [address] [place] [address] Kitty Dover ANP [address] [place] [address] documented as of this encounter Visit Diagnoses Not on filedocumented in this encounter Care Teams Biologist Aide Relationship Specialty Start Date End Date Jasiel Freeman MD [address] [place] [phone] PCP - General Family Practice 08/15/17 documented as of this encounter
--- OUTSIDE RECORDS SUMMARY | 2024-10-24 05:31 | XMS_ITS | Encounter Summary ---
Author Organization Address [address] [place] [address] Care Team Providers Care Cafeteria Manager Name Role Phone Jasiel Freeman MD Primary Care Provider [phone] Encounter Details Date Type Department Care Team (Late st Contact Info) Description 01/29/2019 Orders Only [facility] Admitting [address] [place] [address] Annette Whitney MD [address] [facility] [address] DIV [place] [address] Social History Tobacco Use Types Packs/Day Years [...] 10:30 AM CDT Office Visit [facility] [place] [address] [facility] [address] [place] [address] Kitty Dover, ANP [address] [facility] [address] [place] [address] documented as of this encounter Visit Diagnoses Not on filedocumented in this encounter Care Teams Cafeteria Manager Relationship Specialty Start Date End Date Jasiel Freeman MD [address] [place] [phone] PCP - General Family Practice 08/15/17 documented as of this encounter
--- OUTSIDE RECORDS SUMMARY | 2024-10-24 05:31 | XMS_ITS | Encounter Summary ---
Author Organization [facility] Address [address] [place] [address] Care Team Providers Care Paint Prep Technician Name Role Phone Jasiel Freeman MD Primary Care Provider Reason for Visit * Reason Onset Date Comments labs draw reminder 02/18/2019 infliximab le lise Encounter Details Date Type Department Care Team (Late st Contact Info) Description 02/18/2019 Telephone [facility] Gastroenterology [facility] [address] [facility] [address] [place] [address] Annette Whitney MD [address] [facility] [address] DIV [place] [address] labs draw reminder (infliximab level) Social History Tobacco Use Types Packs/Day Years [...] Miscellaneous Notes * Telephone Encounter - Joaquina Prescott RN - 02/18/2019 3:19 PM CDT Left VM to say: Dr. Nair has ordered an Infliximab (Remicade) level blood draw for you. ??It was ordered at your last office visit. ??This can be done the morning of the infusion before you get infused, or up to 5 days before. Please let us know if you need another copy of that lab order requisition, by calling [phone] or responding to this message. Also, sent as Quickcue message. [facility] documented in this encounter Plan of Treatment Upcoming Encounters Date Type Department Care Team (Late st Contact Info) Description 02/13/2025 10:30 AM CDT Office Visit [facility] [place] [address] [facility] [address] [place] [phone] Kitty Dover ANP [address] [facility] [address] [place] [address] documented as of this encounter Visit Diagnoses Not on filedocumented in this encounter Care Teams Paint Prep Technician Relationship Specialty Start Date End Date Jasiel Freeman MD [address] [place] [phone] PCP - General Family Practice 08/15/17 documented as of this encounter
--- OUTSIDE RECORDS SUMMARY | 2024-10-24 05:31 | XMS_ITS | Encounter Summary ---
Author Organization [facility] Address [address] [place] [address] Care Team Providers Care Loan Teller Name Role Phone Jasiel Freeman MD Primary Care Provider Reason for Visit * Reason Onset Date Comments Medication Refill 07/31/2019 Encounter Details Date Type Department Care Team (Late st Contact Info) Description 07/31/2019 Refill [facility] Gastroenterology [facility] [address] [facility] [address] [place] [address] Annette Whitney MD [address] [facility] [address] [place] [address] Social History Tobacco Use Types Packs/Day Years [...] * Telephone Encounter - Ada Tan - 07/31/2019 12:18 PM CDT Need to send to [facility] documented in this encounter Plan of Treatment Upcoming Encounters Date Type Department Care Team (Late st Contact Info) Description 02/13/2025 10:30 AM CDT Office Visit [facility] Gastro[facility] [place] [address] [place] [address] Kitty Dover, ANP [address] [place] [address] [place] [address] documented as of this encounter Visit Diagnoses Not on filedocumented in this encounter Care Teams Loan Teller Relationship Specialty Start Date End Date Jasiel Freeman MD [address] [place] [phone] PCP - General Family Practice 08/15/17 documented as of this encounter
--- OUTSIDE RECORDS SUMMARY | 2024-10-24 05:31 | XMS_ITS | Encounter Summary ---
Author Organization [facility] Address , [place] Care Team Providers Care Roving Department Supervisor Name Role Phone Jasiel Freeman MD Primary Care Provider Encounter Details Date Type Department Care Team (Late st Contact Info) Description 03/21/2019 Home Visit [address], [address] [place] [address] Irina Wyatt RN Social History Tobacco Use Types Packs/Day [...] Reading Time Taken Comments Blood Pressure 132/82 03/21/2019 10:35 AM CDT Pulse 76 03/21/2019 10:35 AM CDT Temperature 35.5 ??C (95.9 ??F) 03/21/2019 10:35 AM C DT Respiratory Rate 16 03/21/2019 10:35 AM CDT Oxygen Saturation 95% 03/21/2019 10:35 AM CDT Inhaled Oxygen Concentration - - Weight - - Height - - Body Mass Index - - documented in this encounter Progress Notes * Irina Wyatt RN - 03/21/2019 3:07 PM CDT Images from the original note were not included. [facility] [address] [facility] [employer] [address] [place] [address] Home Infusion NURSING follow up Leonidas Edgardo Elkins 1970 [address] [facility] [address] 03/21/2019 Provider - Irina Wyatt RN Driving start 820 Driving end 920 Visit start 920 Visit end 1045 Mileage 53 Contact numbers provided including after hours numbers [...] to Visit Medication Sig Dispense Refill ??? diphenoxylate-atropine (LOMOTIL) 2.5-0.025 mg tablet Take 1 Tablet by mouth 4 times daily as needed for Diarrhea/Loose Stools. 60 Tablet 1 ??? ergocalciferol (VITAMIN D2) 50,000 unit capsule Take 1 Capsule (50,000 Units) by mouth every 7 days For 12 weeks then once every other week.. 8 Capsule 2 ??? vedolizumab (ENTYVIO) 300 mg Recon Soln Inject 300 mg by intraveous injection see administration instructions Home VENEER DEPARTMENT MANAGER to administer over 30 minutes every 8 weeks.. 300 mg 3 ??? metroNIDAZOLE (FLAGYL) 500 mg tablet Take [...] observed with learning needs - No cultural, yarsani, or language barriers to learning Patient and [...] affect. Wt Readings from Last 3 Encounters: 01/29/19 85.8 kg (189 lb 3.2 oz) 10/05/17 87.5 kg (192 lb 12.8 oz) 08/24/17 84.4 kg (186 lb) Temp Readings from Last 3 Encounters: 03/21/19 96.8 ??F (36 ??C) (Oral) 01/24/19 (!) 96.4 ??F (35.8 ??C) (Oral) 11/29/18 97.8 ??F (36.6 ??C) (Oral) BP Readings from Last 3 Encounters: 03/21/19 122/82 01/29/19 (!) 135/92 01/24/19 124/84 Pulse Readings from Last 3 Encounters: 03/21/19 71 01/29/19 89 01/24/19 80 Resp Readings from Last 3 Encounters: 03/21/19 16 01/24/19 16 11/29/18 16 1. USP assessment and implementation of infusion therapy. Teaching of patient/caregiver role in infusion therapy. Goal : Infusion therapy [...] reactions. Patient knows how to reorder medications. [facility] [...] [facility] [place] [address] [facility] [address] [place] [phone] Kitty Dover, ANP [address] [address] documented as of this encounter Visit Diagnoses Not on filedocumented in this encounter Care Teams Roving Department Supervisor Relationship Specialty Start Date End Date Jasiel Freeman MD [address] [place] [phone] PCP - General Family Practice 08/15/17 documented as of this encounter
--- OUTSIDE RECORDS SUMMARY | 2024-10-24 05:31 | XMS_ITS | Encounter Summary ---
Author Organization [facility] Address [address] [place] [address] Care Team Providers Care Assistant Professor Of Drama Name Role Phone Jasiel Freeman MD Primary Care Provider Reason for Visit * Reason Onset Date Comments Rescue Infusion update 08/05/2019 Encounter Details Date Type Department Care Team (Late st Contact Info) Description 08/05/2019 Telephone [facility] Gastroenterology [facility] [address] [facility] [address] [place] [address] Annette Whitney MD [address] [facility] [address] [place] [phone] Rescue Infusion update Social History Tobacco Use Types Packs/Day Years [...] Telephone Encounter - Joaquina Prescott RN - 08/05/2019 11:22 AM CDT Left vm. [place] is requesting a little more information and we will be sending it today. Hope to gethim infused as soon as possible. documented in this encounter Plan of Treatment Upcoming Encounters Date Type Department Care Team (Late st Contact Info) Description 02/13/2025 10:30 AM CDT Office Visit [facility] IBD and Gastroenterology Center [place] [address] [place] [phone] Kitty Dover, [facility] [address] [place] [address] [place] [address] documented as of this encounter Visit Diagnoses Not on filedocumented in this encounter Care Teams Assistant Professor Of Drama Relationship Specialty Start Date End Date Jasiel Freeman MD [address] [place] [phone] PCP - General Family Practice 08/15/17 documented as of this encounter
--- OUTSIDE RECORDS SUMMARY | 2024-10-24 05:31 | XMS_ITS | Encounter Summary ---
Author Organization [facility] Address [address] [place] [address] Care Team Providers Care Math And Science Instructor Name Role Phone Jasiel Freeman MD Primary Care Provider Reason for Visit * Reason Onset Date Comments week 2 check in 08/27/2019 reinduction of E ntyvio Encounter Details Date Type Department Care Team (Late st Contact Info) Description 08/27/2019 Telephone [facility] Gastroenterology [facility] [address] [facility] [address] [place] [address] Annette Whitney MD [address] [facility] [address] [place] [phone] week 2 check in (reinduction of Entyvio) Social History Tobacco Use Types Packs/Day Years [...] Miscellaneous Notes * Telephone Encounter - Joaquina Prescott, RN - 08/27/2019 12:36 PM CHIEF OPERATOR SYNTHESIS Week 2 check in-- Left will send mymercy message as well 1) How many bowel movements a day are you having (24 hr period)? 2) Are you having nocturnal bowel movements? 3) Any visible blood? On stool, or just in water? Percentage? 0%, less than 50%, more than 50%, 100% 4) Urgency? Any fecal incontinence? 5) Abdominal pain? Cramping? Mild, moderate, severe Is it better with a bowel movement? What brings it on? Makes it feel better? 6) What is your general well being? Perfect, Very Good, Good, Average, Poor, Terrible 7) Any Abdominal tenderness? None, Mild, Moderate, Severe 8) Have you needed to take anti-diarrheal medications? 9) Are you having a fever? What is the temperature? 10) Are you having any chills? F OPERATOR SYNTHESIS documented in this encounter Plan of Treatment Upcoming Encounters Date Type Department Care Team (Late st Contact Info) Description 02/13/2025 10:30 AM CDT Office Visit [facility] IBD and Gastroenterology [facility] [place] [address] [facility] [address] [place] [address] Kitty Dover ANP [address] [place] [address] [place] [address] documented as of this encounter Visit Diagnoses Not on filedocumented in this encounter Care Teams Math And Science Instructor Relationship Specialty Start Date End Date Jasiel Freeman MD [address] [place] [phone] PCP - General Family Practice 08/15/17 documented as of this encounter
--- OUTSIDE RECORDS SUMMARY | 2024-10-24 05:31 | XMS_ITS | Encounter Summary ---
Author Organization [facility] Address , [place] Care Team Providers Care Software Test Technician Name Role Phone Jasiel Freeman MD Primary Care Provider Encounter Details Date Type Department Care Team (Late st Contact Info) Description 01/24/2019 Home Visit [address], [address] [place] [address] Irina Wyatt RN Social History [...] Sign Reading Time Taken Comments Blood Pressure 124/84 01/24/2019 1:35 PM CDT Pulse 80 01/24/2019 1:35 PM CDT Temperature 35.8 ??C (96.4 ??F) 01/24/2019 1:35 PM CD T Respiratory Rate 16 01/24/2019 1:35 PM CDT Oxygen Saturation 94% 01/24/2019 1:35 PM CDT Inhaled Oxygen Concentration - - Weight - - Height - - Body Mass Index - - documented in this encounter Progress Notes * Irina Wyatt RN - 01/25/2019 10:57 AM CDT Images from the original note were not included. [facility] [address] [facility] [address] [place] [address] Home Infusion NURSING follow up Haylieraad Elkins 1970 [address] [facility] [address] 01/24/19 Provider - Irina Wyatt RN Driving start 1110 Driving end 1215 Visit start 1215 Visit end 1345 Mileage 50 Contact numbers provided including after hours numbers [...] response to instruction - understood. Current Outpatient Prescriptions on File Prior to Visit Medication Sig Dispense Refill ??? vedolizumab (ENTYVIO) 300 mg Recon Soln Inject 300 mg by intraveous injection see administration instructions Home STORE SALES LEADER to administer over 30 minutes every 8 weeks.. 300 mg 3 ??? metroNIDAZOLE (FLAGYL) 500 mg tablet Take 1 Tablet (500 mg) by mouth 3 times daily. 30 Tablet 0 ??? diphenoxylate-atropine (LOMOTIL) 2.5-0.025 mg tablet Take 1 Tablet by mouth 4 times daily as needed for Diarrhea/Loose Stools. 60 Tablet 1 ??? metroNIDAZOLE (FLAGYL) 250 mg tablet Take [...] pain R10.9 ??? Inflammatory bowel disease K52.9 Physical Exam Constitutional: oriented to person, place, [...] affect. Wt Readings from Last 3 Encounters: 10/05/17 87.5 kg (192 lb 12.8 oz) 08/24/17 84.4 kg (186 lb) 10/08/15 86 kg (189 lb 9.6 oz) Temp Readings from Last 3 Encounters: 01/24/19 97.4 ??F (36.3 ??C) (Oral) 11/29/18 97.8 ??F (36.6 ??C) (Oral) 10/04/18 97.8 ??F (36.6 ??C) (Oral) BP Readings from Last 3 Encounters: 01/24/19 (!) 112/90 11/29/18 122/86 10/04/18 136/84 Pulse Readings from Last 3 Encounters: 01/24/19 90 11/29/18 86 10/04/18 71 Resp Readings from Last 3 Encounters: 01/24/19 16 11/29/18 16 10/04/18 16 1. half-way assessment and implementation of infusion [...] [place] [address] [place] [address] Kitty Dover ANP [address] [place] [address] documented as of this encounter Visit Diagnoses Not on filedocumented in this encounter Care Teams Software Test Technician Relationship Specialty Start Date End Date Jasiel Freeman MD [address] [place] [phone] PCP - General Family Practice 08/15/17 documented as of this encounter
--- OUTSIDE RECORDS SUMMARY | 2024-10-24 05:31 | XMS_ITS | Encounter Summary ---
Author Organization [facility] Address [address] [place] [address] Care Team Providers Care Residential Finish Carpenter Name Role Phone Jasiel Freeman MD Primary Care Provider Reason for Visit * Reason Comments Follow Up Crohn's Disease Encounter Details Date Type Department Care Team (Latest Contact Info) Description 11/13/2019 11:00 AM CHARGE PREPARATION TECHNICIAN Office Visit [facility] Gastroenterology [facility] [address] [facility] [address] [place] [address] Annette Whitney MD [address] [facility] [address] [place] [address] Ulcerative pancolitis with other complication (Primary Dx); Inflammation of internal ileoanal pouch Social History Tobacco Use Types Packs/Day Years [...] Sign Reading Time Taken Comments Blood Pressure 138/90 11/13/2019 11:03 AM CHARGE PREPARATION TECHNICIAN Pulse 102 11/13/2019 11:03 AM CHARGE PREPARATION TECHNICIAN Temperature - - Respiratory Rate - - Oxygen Saturation - - Inhaled Oxygen Concentration - - Weight 88.4 kg (194 lb 12.8 oz) 020 11:03 AM CHARGE PREPARATION TECHNICIAN Height 175.3 cm (5' 9 ) 11/13/2019 11:0 3 AM CHARGE PREPARATION TECHNICIAN Body Mass Index 28.77 11/13/2019 11:03 AM CHARGE PREPARATION TECHNICIAN documented in this encounter Progress Notes * Annette Whitney MD - 11/13/2019 12:17 PM CST Gastroenterology Clinic Follow up Note Patient: Edgardo Elkins / 49 y.o. / male : 1970 Date: 11/13/2019 CSN: [id number] Referring Physician:Jasiel Freeman MD PCP: Jasiel Freeman MD Reason for Consult: Follow Up and Crohn's Disease History of Present Illness: Edgardo Elkins is a 49 y.o. male history of UC s/p colectomy with J-pouch in 2001. He has had problems with pouchitis, in the past he has tried Humira for his pouchitis without much benefit. Most recently he has been on entyvio and has done well with this. His last visit with me was in July 2019. At that time his insurance had changed and there was a delay in his Entyvio. Due to this delay he developed a flare symptoms. We reinduced Entyvio and he has done well. He is now on the every 8 week dosing. He denies any abdominal pain cramping blood in the stool and his output is back to normal. Heis going on a cruise in a few weeks and is concerned about GI illness while away. He does take Lomotil on an as-needed basis but does not need it very often. Berhane Desai Index General Well-Being: Very well [...] prednisone, protonix, Asacol Current medications Entyvio Lomotil Compazine Prior Surgeries ??proctocolectomy by Dr. Rizo in 2001 History of c. diff negative tests in chart Last ER visit or hospitalization 07/26/2012 Current Outpatient Medications Medication Sig Dispense Refill ??? metroNIDAZOLE (FLAGYL) 500 mg tablet Take 1 Tablet (500 mg) by mouth 3 times daily for 5 days. 15 Tablet 0 ??? diphenoxylate-atropine (LOMOTIL) 2.5-0.025 mg tablet Take 1 Tablet by mouth 4 times daily as needed for Diarrhea/Loose Stools. 60 Tablet 1 ??? cyanocobalamin (VITAMIN B-12) 1,000 mcg/mL Solution Inject 1 mL (1,000 mcg) by intramuscular injection every 7 days. 10 mL 1 ??? ergocalciferol (VITAMIN D2) 50,000 unit capsule Take 1 Capsule (50,000 Units) by mouth every 2 weeks. For 8 weeks then once every other week. 8 Capsule 2 ??? [DISCONTINUED] dicyclomine (BENTYL) 10 mg capsule Take 1 Capsule (10 mg) by mouth 4 times dailyas needed for Pain or Other (See Comment) (cramping). 120 Capsule 0 ??? SOLU-MEDROL, PF, 40 mg/mL Recon Soln [...] DISCARD EXCESS 1 mL 0 ??? [DISCONTINUED] Cyanocobalamin (NASCOBAL) 500 mcg/spray [place], Non-Aerosol 1 [place] by See Admin Instructions route every 7 days. 1 spray, 1 nostril, 1x week 1 mL 12 ??? [DISCONTINUED] ergocalciferol (VITAMIN D2) 50,000 unit capsule Take 1 Capsule (50,000 Units) bymouth every 7 days. For 8 weeks then once every other week. 8 Capsule 2 ??? vedolizumab (ENTYVIO) 300 mg Recon Soln Inject 300 mg by intraveous injection see administration instructions. Home WOOD WINDOW AND DOOR CRAFTSMAN to administer over 30 minutes every 8 weeks. 300 mg 3 ??? [DISCONTINUED] diphenoxylate-atropine (LOMOTIL) 2.5-0.025 mg tablet Take 1 Tablet by mouth 4 times daily as needed for Diarrhea/Loose Stools. 60 Tablet 1 ??? [DISCONTINUED] metroNIDAZOLE (FLAGYL) 500 mg tablet Take 1 Tablet (500 mg) by mouth 3 times daily. 30 Tablet 0 ??? [DISCONTINUED] metroNIDAZOLE (FLAGYL) 250 mg tablet Take 1 [...] nodes or abnormal bleeding Physical Exam: BP (!) 138/90 Pulse (!) 102 Ht 5' 9 (1.753 m) Wt 88.4 kg (194 lb 12.8 oz) BMI 28.77 kg/m?? Physical Exam Constitutional: Appearance: He is [...] is back on Entyvio and is doing well after reinduction. 1. Ulcerative colitis status post proctocolectomy with ileoanal J-pouch in 2011 2. 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 -Was given Flagyl if needed while traveling Lomotil prescription refilled for an as-needed basis He should take Pepto-Bismol on vacation with him as well Restart ergocalciferol for vitamin D deficiency Restart vitamin B12 injections weekly for vitamin B12 deficiency We will need to survey his pouch every 2 years or so for dysplasia. We discussed vaccinations. He will be due for Shingrix next year. We also discussed pneumonia vaccines and flu shot. He did not get a flu shot this year ICD-10-CM ICD-9-CM 1. Ulcerative pancolitis with other complication K51.018 556.6 2. Inflammation of internal ileoanal pouch K91.850 569.71 Patient Instructions 1. Entyvio every 8 weeks 2. Flagyl if needed on vacation. Take Pepto bismol pills with you. 3. Lomotil as needed 4. Vitamin B12 injections once per week 5. Vitamin D pill once every 1-2 weeks. Return 6 months. Unless issues arise. Orders Placed This Encounter ??? metroNIDAZOLE (FLAGYL) 500 mg tablet ??? diphenoxylate-atropine (LOMOTIL) 2.5-0.025 mg tablet ??? cyanocobalamin (VITAMIN B-12) 1,000 mcg/mL Solution ??? ergocalciferol (VITAMIN D2) 50,000 unit capsule Thank you very much for this consultation. Annette Whitney MD [facility] Digestive Diseases CC: Jasiel Freeman MD , Jasiel Freeman MD GE PREPARATION TECHNICIAN documented in this encounter Miscellaneous Notes * Patient Instructions - Annette Whitney MD - 11/13/2019 11:15 AM CHARGE PREPARATION TECHNICIAN 1. Entyvio every 8 weeks 2. Flagyl if needed on vacation. Take Pepto bismol pills with you. 3. Lomotil as needed 4. Vitamin B12 injections once per week 5. Vitamin D pill once every 1-2 weeks. Return 6 months. Unless issues arise. GE PREPARATION TECHNICIAN documented in this encounter Plan of Treatment Upcoming Encounters Date Type Department Care Team (Late st Contact Info) Description 02/13/2025 10:30 AM CDT Office Visit [facility] IBD and Gastroenterology Center [place] [address] [place] [address] Kitty Dover ANP [address] [place] [address] [place] [address] documented as of this encounter Visit Diagnoses Diagnosis Ulcerative pancolitis with other complication- Primary Inflammation of internal ileoanal pouch Pouchitis documented in this encounter Care Teams Residential Finish Carpenter Relationship Specialty Start Date End Date Jasiel Freeman MD [address] [place] [phone] PCP - General Family Practice 08/15/17 documented as of this encounter
--- OUTSIDE RECORDS SUMMARY | 2024-10-24 05:31 | XMS_ITS | Encounter Summary ---
Author Organization [facility] Address [address] [place] [address] Care Team Providers Care Flap Lining Binder Name Role Phone Jasiel Freeman MD Primary Care Provider Reason for Visit * Reason Onset Date Comments Entyvio - refill 03/19/2019 Encounter Details Date Type Department Care Team (Late st Contact Info) Description 03/19/2019 Telephone [facility] [address] [phone] Thanh Solares, PHARMACIST Entyvio - refill Social History Tobacco Use Types Packs/Day Years [...] encounter Miscellaneous Notes * Telephone Encounter - Thanh Solares, PHARMACIST - 03/19/2019 3:13 PM CDT Images from the original note were not included. [facility] [place] Edgardo Elkins 48 y.o. / male Patient's address on file: [address] [facility] [address] Home Phone Work Phone Home Infusion Order [...] KESHA Whitney [facility] Gastroenterology [address] [facility] [facility], [address] [facility] [address] Generic substitution permitted Detailed Home Infusion Orders [...] take any ordered labs to [facility] when possible. If labs are not taken to a [facility] lab, it is the responsibility of nursing to make sure labs are faxed to the pharmacy at [phone] Whitney. Catheter Care Catheter type: PIV placed by PLYCOR OPERATOR prior to each infusion Flush IV [...] complications. ?? Flushes provided by [facility] Specialty and Infusion pharmacy are for use [...] Today's Encounter: Refill note Actions/Narrative: Edgardo Elkins (48 y.o. male) is active with [facility] Specialty and Infusion services receiving Entyvio every 8 weeks at home for ulcerative colitis. ?? Edgardo is due for his next infusion this week. Pharmacist contacted PLYCOR OPERATOR to coordinate delivery. RN will picker and packer today. Patient received last infusion without issue. No questions or concerns at this time. Patient has appointment with Dr. Nair on 01/29. Timeline/Summary of Home Infusion Therapy: 11/15/17 - Start of Care / Entyvio week 0 11/29/17 - Week 2 12/28/17 - Week 6 02/21/18 - Begin maintenance dose every 8 weeks 11/26/18 - Approved x [address] Whitney Home Infusion Care Team IV Pharmacy: [facility] / [phone] Nursing Agency: [facility] Physician(s): Dr. Whitney Additional Relevant Data Insurance Information: Payor: AETNA / Plan: AET[employer] CHOICE POS II / Product Type: Commercial / Note: This is the primary coverage, but no account was found for this location or the patient's primary location. IV access PIV placed by PLYCOR OPERATOR prior to each infusion Ht Readings from Last 3 Encounters: 01/29/19 5' 9 (1.753 m) 10/05/17 5' 9 (1.753 m) 08/24/17 5' 9 (1.753 m) Wt Readings from Last 3 Encounters: 01/29/19 85.8 kg (189 lb 3.2 oz) 10/05/17 87.5 kg (192 lb 12.8 oz) 08/24/17 84.4 kg (186 lb) Patient Active Problem List Diagnosis Code [...] level: Not on file Occupational History Employer: [employer] Employer: [employer] Social Needs ??? Financial [...] file Gets together: Not on file Attends voodoo service: Not on file Active member of [...] file Medication Review Current Outpatient Medications: ??? diphenoxylate-atropine (LOMOTIL) 2.5-0.025 mg tablet, Take 1 Tablet by mouth 4 times daily as needed for Diarrhea/Loose Stools., Disp: 60 Tablet, Rfl: 1 ??? ergocalciferol (VITAMIN D2) 50,000 unit capsule, Take 1 Capsule (50,000 Units) by mouth every 7days For 12 weeks then once every other week.., Disp: 8 Capsule, Rfl: 2 ??? vedolizumab (ENTYVIO) 300 mg Recon Soln, Inject 300 mg by intraveous injection see administration instructions Home PLYCOR OPERATOR to administer over 30 minutes every 8 weeks.., Disp: 300 mg, Rfl: 3 ??? metroNIDAZOLE (FLAGYL) 500 mg tablet, Take 1 Tablet (500 mg) by mouth 3 times daily., Disp: 30 Tablet, Rfl: 0 ??? metroNIDAZOLE (FLAGYL) 250 mg tablet, Take 1 Tablet (250 mg) by mouth 3 times daily., Disp: 90 Tablet, Rfl: 0 ??? TESTOSTERONE, BULK, MISC, 1 mL by Misc.(Non-Drug; Combo Route) route., Disp: , Rfl: Med Review Issues Noted? No issues Lab Review BMP result (most recent): Lab Results Component Value Date/Time GLUCOSE 111 (H) 01/29/2019 09:34 AM GLUCOSE 80 10/05/2017 10:19 AM GLUCOSE 88 07/26/2012 09:35 AM BUN 12 01/29/2019 09:34 AM BUN 14 10/05/2017 10:19 AM BUN 10 07/26/2012 09:35 AM CREAT 1.24 (H) 01/29/2019 09:34 AM CREAT 1.49 (H) 10/05/2017 10:19 AM CREAT 0.87 07/26/2012 09:35 AM NA 141 01/29/2019 09:34 AM NA 141 10/05/2017 10:19 AM NA 139 07/26/2012 09:35 AM K 4.2 01/29/2019 09:34 AM K 5.0 10/05/2017 10:19 AM K 3.9 07/26/2012 09:35 AM CL 105 01/29/2019 09:34 AM CL 103 10/05/2017 10:19 AM CL 106 07/26/2012 09:35 AM CO2 25 01/29/2019 09:34 AM CO2 26 10/05/2017 10:19 AM CO2 20 (L) 07/26/2012 09:35 AM ANIONGAP 11 01/29/2019 09:34 AM ANIONGAP 12 10/05/2017 10:19 AM MG 1.9 03/15/2012 01:05 PM MG 2.5 02/27/2012 06:05 AM PO4 4.5 02/27/2012 06:05 AM CrCl cannot be calculated (Patient's most recent lab result is older than the maximum 7 days allowed.). LFTs (most recent): Lab Results Component Value Date/Time ALKPHOS 74 01/29/2019 09:34 AM ALKPHOS 64 10/05/2017 10:19 AM ALKPHOS 61 07/26/2012 09:35 AM ALT 24 01/29/2019 09:34 AM ALT 19 10/05/2017 10:19 AM ALT 20 07/26/2012 09:35 AM AST 23 01/29/2019 09:34 AM AST 25 10/05/2017 10:19 AM AST 16 07/26/2012 09:35 AM BILITOTAL 0.4 01/29/2019 09:34 AM BILITOTAL 0.3 10/05/2017 10:19 AM BILITOTAL 0.3 07/26/2012 09:35 AM ALBUMIN 3.9 01/29/2019 09:34 AM ALBUMIN 3.9 10/05/2017 10:19 AM ALBUMIN 4.0 07/26/2012 09:35 AM LIPASE 40 02/22/2012 07:24 PM CBC result (most recent): Lab Results Component Value Date/Time WBC 5.0 01/29/2019 09:34 AM WBC 5.6 10/05/2017 10:19 AM WBC 5.6 07/26/2012 09:35 AM HGB 18.4 (H) 01/29/2019 09:34 AM HGB 17.2 (H) 10/05/2017 10:19 AM HGB 13.5 (L) 07/26/2012 09:35 AM HCT 56.8 (H) 01/29/2019 09:34 AM HCT 54.7 (H) 10/05/2017 10:19 AM HCT 42.0 07/26/2012 09:35 AM PLT 303 01/29/2019 09:34 AM PLT 304 10/05/2017 10:19 AM PLT 303 07/26/2012 09:35 AM MCV 88.3 01/29/2019 09:34 AM MCV 86.6 10/05/2017 10:19 AM MCV 87.0 07/26/2012 09:35 AM CRP result (most recent): Lab Results Component Value Date/Time CRP 3.7 01/29/2019 09:34 AM CRP 3.2 10/05/2017 10:19 AM CRP 2.7 (H) 07/26/2012 09:35 AM Lab Review Issues Noted? No issues [...] Provided to Patient ?? Pharmacist offer to funeral counselor ?? RN instruction ?? Printed teaching sheets ?? Drug information paperwork - EH patient leaflet FADI Silverman [facility] & Infusion [facility] [id number] [place] [address] , [address] [place] [address] documented in this encounter Plan of Treatment Upcoming Encounters Date Type Department Care Team (Late st Contact Info) Description 02/13/2025 10:30 AM CDT Office Visit [facility] IBD and Gastroenterology Center [place] [address] [facility] [address] [place] [address] Kitty Dover ANP [address] [place] [address] [facility] [address] [place] [address] documented as of this encounter Visit Diagnoses Not on filedocumented in this encounter Care Teams Flap Lining Binder Relationship Specialty Start Date End Date Jasiel Freeman MD [address] [place] [phone] PCP - General Family Practice 08/15/17 documented as of this encounter
--- OUTSIDE RECORDS SUMMARY | 2024-10-24 05:31 | XMS_ITS | Encounter Summary ---
Author Organization [facility] Address [address] [place] [address] Care Team Providers Care Plate Maker Name Role Phone Jasiel Freeman MD Primary Care Provider Encounter Details Date Type Department Care Team (Late Contact Info) Description 01/29/2019 Abstract [facility] Gastroenterology [facility] [address] [facility] [facility] [address] [place] [address] Annette Whitney MD 1 [facility] [place] [phone] Social History Tobacco Use Types Packs/Day Years [...] 10:30 AM CDT Office Visit [facility] IBD and Gastroenterology [place] [address] [facility] [address] [place] [address] Kitty Dover, ANP [address] [facility] [address] [place] [address] documented as of this encounter Visit Diagnoses Not on filedocumented in this encounter Care Teams Plate Maker Relationship Specialty Start Date End Date Jasiel Freeman MD [address] [place] [phone] PCP - General Family Practice 08/15/17 documented as of this encounter
--- OUTSIDE RECORDS SUMMARY | 2024-10-24 05:31 | XMS_ITS | Encounter Summary ---
Author Organization [facility] Address [address] [place] [address] Care Team Providers Care Co Pilot Name Role Phone Jasiel Freeman MD Primary Care Provider Reason for Visit * Reason Onset Date Comments Home Visit 08/23/2019 Encounter Details Date Type Department Care Team (Late st Contact Info) Description 08/23/2019 Patient Outreach [facility] [address] [address] Irina Wyatt, JIE Home Visit [...] Sign Reading Time Taken Comments Blood Pressure 122/94 08/23/2019 2:30 PM CDT Pulse 78 08/23/2019 2:30 PM CDT Temperature 36.1 ??C (97 ??F) 08/23/2019 2:30 PM CDT Respiratory Rate 16 08/23/2019 2:30 PM CDT Oxygen Saturation 97% 08/23/2019 2:30 PM CDT Inhaled Oxygen Concentration - - Weight - - Height - - Body Mass Index - - documented in this encounter Miscellaneous Notes * Telephone Encounter - Irina Wyatt RN - 08/27/2019 5:09 PM CST Images from the original note were not included. [facility] [address] [place] [address] Home Infusion NURSING follow up Leonidas Edgardoisaiah Elkins 1970 [address] [facility] [address] 08/23/19 Provider - Irina Wyatt RN Driving start 1135 Driving end 1305 Visit start 1305 Visit end 1445 Mileage 50 Contact numbers provided including after [...] mL 0 ??? Cyanocobalamin (NASCOBAL) 500 mcg/spray [place], Non-Aerosol 1 [place] by See Admin Instructions route every 7 days. 1 spray, 1 nostril, 1x week 1 mL 12 ??? ergocalciferol (VITAMIN D2) 50,000 unit capsule Take 1 Capsule (50,000 Units) by mouth every 7 days. For 8 weeks then once every other week. 8 Capsule 2 ??? vedolizumab (ENTYVIO) 300 mg Recon Soln Inject 300 mg by intraveous injection see administration instructions. Home APPLICATION DEVELOPMENT LIAISON to administer over 30 minutes every 8 [...] oz) Temp Readings from Last 3 Encounters: 08/08/19 97.8 ??F (36.6 ??C) (Oral) 05/15/19 97.4 ??F (36.3 ??C) 03/21/19 (!) 95.9 ??F (35.5 ??C) (Oral) BP Readings from Last 3 Encounters: 08/08/19 128/88 07/31/19 (!) 151/92 05/15/19 138/84 Pulse Readings from Last 3 Encounters: 08/08/19 82 07/31/19 94 05/15/19 88 Resp Readings from Last 3 Encounters: 08/08/19 18 03/21/19 16 01/24/19 16 1. intermediate assessment and implementation of infusion [...] reactions. Patient knows how to reorder medications. [facility] will dispense [...] in approximately 4 weeks for Entyvio infusion ING COORDINATOR documented in this encounter Plan of Treatment Upcoming Encounters Date Type Department Care Team (Late st Contact Info) Description 02/13/2025 10:30 AM CDT Office Visit [facility] [place] [address] [place] [phone] Kitty Dover ANP [address] [place] [address] [place] [phone] documented as of this encounter Visit Diagnoses Not on filedocumented in this encounter Care Teams Co Pilot Relationship Specialty Start Date End Date Jasiel Freeman MD [address] [place] [phone] PCP - General Family Practice 08/15/17 documented as of this encounter
--- OUTSIDE RECORDS SUMMARY | 2024-10-24 05:31 | XMS_ITS | Encounter Summary ---
Author Organization [facility] Address [address] [place] [address] Care Team Providers Care Surgical Garment Assembler Name Role Phone Jasiel Freeman MD Primary Care Provider Reason for Visit * Reason Onset Date Comments Medication Refill 11/18/2019 Encounter Details Date Type Department Care Team (Late st Contact Info) Description 11/18/2019 Telephone [facility] Gastroenterology [facility] [address] [facility] [address] [place] [address] Annette Whitney MD [address] [facility] [address] DIV [place] [address] Medication Refill Social History Tobacco Use Types Packs/Day [...] Telephone Encounter - Annette Whitney MD - 11/18/2019 8:21 AM EMD SPECIAL EDUCATION TEACHER Sent, also new Rx for Ergocalciferol 50K units every 2 weeks. SPECIAL EDUCATION TEACHER * Telephone Encounter - Ada Tan - 11/18/2019 8:12 AM CST Pt is needing 25 gauge syringes for B-12 shots SPECIAL EDUCATION TEACHER documented in this encounter Plan of Treatment Upcoming Encounters Date Type Department Care Team (Late st Contact Info) Description 02/13/2025 10:30 AM CDT Office Visit [facility]astroenter[facility] [place] [address] [place] [address] Kitty Dover, MIRTA [address] [place] [address] [place] [address] documented as of this encounter Visit Diagnoses Not on filedocumented in this encounter Care Teams Surgical Garment Assembler Relationship Specialty Start Date End Date Jasiel Freeman MD [address] [place] [phone] PCP - General Family Practice 08/15/17 documented as of this encounter
--- OUTSIDE RECORDS SUMMARY | 2024-10-24 05:31 | XMS_ITS | Encounter Summary ---
Author Organization [facility] Address [address] [place] [address] Care Team Providers Care Ice Guard Inspector Name Role Phone Jasiel Freeman MD Primary Care Provider Reason for Visit * Reason Onset Date Comments Appointment Notification 08/08/2019 Encounter Details Date Type Department Care Team (Late st Contact Info) Description 08/08/2019 Telephone [facility] [place] [address] [place] [address] Yulissa Pike, URVASHI [address] [place] [address] Appointment Notification Social History Tobacco Use Types Packs/Day Years [...] Telephone Encounter - Annette Whitney MD - 08/08/2019 12:05 PM CDT Since he is having symptoms, I think he should restart with the loading doses. 300 mg at 0, 2 and 6weeks then every 8 weeks. He was doing well, but with the lapse in therapy has had a resurgence of his symptoms that we now have to overcome. * Telephone Encounter - Yulissa Pike, RN - 08/08/2019 11:19 AM CDT We have recd an emergency auth approval and have room in the nursing schedule to see him today. Left messages with both patient and . documented in this encounter Plan of Treatment Upcoming Encounters Date Type Department Care Team (Late st Contact Info) Description 02/13/2025 10:30 AM CDT Office Visit [facility] [place] [address] [facility] [address] [place] [phone] Kitty Dover, MIRTA [address] [place] [address] [facility] [address] [place] [address] documented as of this encounter Visit Diagnoses Not on filedocumented in this encounter Care Teams Ice Guard Inspector Relationship Specialty Start Date End Date Jasiel Freeman MD [address] [place] [phone] PCP - General Family Practice 08/15/17 documented as of this encounter
--- OUTSIDE RECORDS SUMMARY | 2024-10-24 05:31 | XMS_ITS | Encounter Summary ---
Author Organization Address [address] [place] [address] Care Team Providers Care Mining Detail Draftsperson Name Role Phone Jasiel Freeman MD Primary Care Provider [phone] Reason for Visit * Reason Onset Date Comments flare 10/11/2019 Encounter Details Date Type Department Care Team (Late st Contact Info) Description 10/11/2019 Telephone [facility] Gastroenterology [facility] [address] [facility] [address] [place] [address] Annette Whitney MD [address] [facility] [address] [place] [address] flare Social History Tobacco Use Types Packs/Day Years [...] * Telephone Encounter - Ada Tan - 10/11/2019 11:29 AM CST Pt is calling because he thinks he may be having flare symptoms. Its been for about two weeks. He says he will wait till Monday to see what can be done. He is having urgency and mild cramping no pain. TY EDITOR IN CHIEF documented in this encounter Plan of Treatment Upcoming Encounters Date Type Department Care Team (Late st Contact Info) Description 02/13/2025 10:30 AM CDT Office Visit [facility] [place] [address] [facility] [address] [place] [phone] Kitty Dover ANP [address] [facility] [address] [place] [address] documented as of this encounter Visit Diagnoses Not on filedocumented in this encounter Care Teams Mining Detail Draftsperson Relationship Specialty Start Date End Date Jasiel Freeman MD [address] [place] [phone] PCP - General Family Practice 08/15/17 documented as of this encounter
--- OUTSIDE RECORDS SUMMARY | 2024-10-24 05:31 | XMS_ITS | Encounter Summary ---
Author Organization [facility] Address [address] [place] [address] Care Team Providers Care Senior Solutions Architect Name Role Phone Jasiel Freeman MD Primary Care Provider Reason for Visit * Reason Comments Crohn's Disease Encounter Details Date Type Department Care Team (Latest Contact Info) Description 07/31/2019 10:10 AM CDT Office Visit [facility] Gastroenterology [facility] [address] [facility] [address] [place] [address] Annette Whitney MD [address] [facility] [address] [place] [address] Ulcerative pancolitis with complication (Primary Dx); Pouchitis Social History Tobacco Use Types Packs/Day [...] Sign Reading Time Taken Comments Blood Pressure 151/92 07/31/2019 10:15 AM CDT Pulse 94 07/31/2019 10:15 AM CDT Temperature - - Respiratory Rate - - Oxygen Saturation - - Inhaled Oxygen Concentration - - Weight 86.5 kg (190 lb 12.8 oz) 019 10:15 AM CDT Height 175.3 cm (5' 9 ) 07/31/2019 10:1 5 AM CDT Body Mass Index 28.18 07/31/2019 10:15 AM CDT documented in this encounter Progress Notes * Annette Whitney MD - 07/31/2019 10:10 AM CDT Gastroenterology Clinic Follow up Note Patient: Edgardo Elkins / 48 y.o. / male : 1970 Date: 07/31/2019 CSN: [id number] Referring Physician:Jasiel Freeman MD PCP: Jasiel Freeman MD Reason for Consult: Crohn's Disease History of Present Illness: Edgardo Elkins is a 48 y.o. male history of UC s/p colectomy with J-pouch in 2001. He has had problems with pouchitis, in the past he has tried Humira for his pouchitis without much benefit. Most recently he has been on entyvio and has done well with this; however, his insurance has changed and therehave been issues getting his entyvio on time despite my office sending in paperwork on multiple occassions and patient calling as well. He is now 3 weeks late on his entyvio and in the past 2 weeks has had increase in his output, urgency, and joint aches and pains. I put him on metamucil in addition to the entyvio and this helped somewhat. Berhane Desai Index General Well-Being: Slightly below par Abdominal Pain: Mild Number of Stools Per Day: 7 Abdominal Mass: None Arthralgia: yes Uveitis: No Erythema Nodosum: No Aphthous Ulcers: No Pyoderma Gangrenosum: No Anal fissure: No New Fistula: No Abscess: No SCORE: 10 Disease Ulcerative Colitis Phenotype/extent severe colitis and [...] Outpatient Medications Medication Sig Dispense Refill ??? cefdinir (OMNICEF) 300 mg capsule Take 1 Capsule (300 mg) by mouth every 12 hours for 14 days. 28 Capsule 0 ??? vedolizumab (ENTYVIO) 300 mg Recon Soln Inject 300 mg by intraveous injection see administration instructions. Home JAVA DEVELOPER WITH SECURITY CLEARANCE to administer over 30 minutes every 8 weeks. 300 mg 3 ??? [DISCONTINUED] cefdinir (OMNICEF) 300 mg capsule Take 1 [...] every other week.. 8 Capsule 2 ??? [DISCONTINUED] vedolizumab (ENTYVIO) 300 mg Recon Soln Inject 300 mg by intraveous injection see administration instructions Home JAVA DEVELOPER WITH SECURITY CLEARANCE to administer over 30 minutes every 8 [...] or abnormal bleeding Physical Exam: BP (!) 151/92 Pulse 94 Ht 5' 9 (1.753 m) Wt 86.5 kg (190 lb 12.8 oz) BMI 28.18 kg/m?? Physical Exam Constitutional: Appearance: He is [...] AM Lab Results Component Value Date/Time SODIUM 141 01/29/2019 09:34 AM POTASSIUM 4.2 01/29/2019 09:34 AM CHLORIDE 105 01/29/2019 09:34 AM CO2 25 01/29/2019 09:34 AM CALCIUM 9.4 01/29/2019 09:34 AM BUN 12 01/29/2019 09:34 AM CREATININE 1.24 (H) 01/29/2019 09:34 AM GLUCOSE 111 (H) 01/29/2019 09:34 AM TOTAL PROTEIN 7.4 01/29/2019 09:34 AM ALBUMIN 3.9 01/29/2019 09:34 AM BILIRUBIN TOTAL 0.4 01/29/2019 09:34 AM ALKALINE PHOSPHATASE 74 01/29/2019 09:34 AM AST 23 01/29/2019 09:34 AM ALT 24 01/29/2019 09:34 AM ANION GAP 11 01/29/2019 09:34 AM No results found for: INR, PT, PROTIMEPOC Lab Results Component Value Date/Time CRP 3.7 01/29/2019 09:34 AM Pertinent Imaging: Ultrasound: No results found [...] He is not a tobacco user. Impression/Plan: 48 yo W severe UC s/p total colectomy with J pouch with severe pouchitis, currently on entyvio. He also has some perianal fistulas and I am concerned that he may have actually developed Crohn's disease of the pouch. At the current time his fistulas are not that bothersome to him and he has not pursued any surgical evaluation. Unfortunately due to insurance issues he is late on getting his entyvioand is having some active pouchitis symptoms. GET Entyvio ISHA, my mortgage loan officer was on the phone for over 1 hour today with Ho and insurancecompany, we may have to reload him or decrease his interval if there is more of a lapse in therapy. Use cefdinir for pouchitis, if no improvement then will give budesonide entocort 9mg daily Check labs (including vitamin levels) Once he is back on consistent entyvio then we will look at the pouch. TB test in 01/2019 was negative. 1. History of ulcerative colitis with J-pouch 2. Pouchitis 3. 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 Vitamin D deficiency - ergo- not compliant with this. ICD-10-CM ICD-9-CM 1. Ulcerative pancolitis with complication K51.019 556.6 2. Pouchitis K91.850 569.71 Patient Instructions 1. Blood test today 2. We are still working on Entyvio, need infusion ISHA. 3. Start cefdinir twice daily for pouchitis, if this is not helping you with in 5 days, let me knowand we will send in Rx for budesonide. RTC 3 months. Orders Placed This Encounter ??? CBC WITH DIFFERENTIAL ??? CRP ??? COMPREHENSIVE METABOLIC PANEL ??? VITAMIN D 25 HYDROXY ??? VITAMIN B12 LEVEL ??? DISCONTD: cefdinir (OMNICEF) 300 mg capsule ??? cefdinir (OMNICEF) 300 mg capsule Thank you very much for this consultation. Annette Whitney MD [facility] CC: Jasiel Fereman MD , Jasiel Freeman MD documented in this encounter Miscellaneous Notes * Patient Instructions - Annette Whitney MD - 07/31/2019 10:39 AM CDT 1. Blood test today 2. We are still working on Entyvio, need infusion ISHA. 3. Start cefdinir twice daily for pouchitis, if this is not helping you with in 5 days, let me knowand we will send in Rx for budesonide. RTC 3 months. documented in this encounter Plan of Treatment Upcoming Encounters Date Type Department Care Team (Late st Contact Info) Description 02/13/2025 10:30 AM CDT Office Visit [facility] IBD [facility] Gastro[facility]ology [facility] [place] [address] [place] [address] Kitty Dover, ANP [address] [place] [address] [place] [address] documented as of this encounter Results * (ABNORMAL) VITAMIN B12 LEVEL (07/31/2019 11:33 AM CDT) VITAMIN B12 222(L) 232-1,245 pg/mL 07/31/2019 1:28 PM CDT [facility] Comment:It has been reported that between 5 to 10% of patients with values between 200 and 400 pg/mL may experience neuropsychiatric and hematologic abnormalities due to occult B12 deficiency. Less than 1% of patients with values above 400 pg/mL will have symptoms. Blood Venipuncture / Unknown 07/31/2019 11:33 AM CDT 07/31/2019 11:50 AM CDT Annette Whitney MD CHEMISTRY [facility] [id number] [address] [place] [address] * (ABNORMAL) VITAMIN D 25 HYDROXY (07/31/2019 11:33 AM CDT) Pathologist [facility] VITAMIN D TOTAL (25OH) 23(L) 30 - 100 ng/mL 07/31/2019 1:28 PM CDT [facility] Blood Venipuncture / Unknown 07/31/2019 11:33 AM CDT 07/31/2019 11:50 AM CDT Narrative [facility] - 07/31/2019 1:28 PM CDT Interpretive Data Chart: Deficient: ? 0 - 20 ng/mL Insufficient: ?21 - 29 ng/mL Sufficient: ?30 - 100 ng/mL Increased Risk of Hypercalciuria: ??>100 ng/ml Toxic: ? >150 ng/ml Annette Whitney MD CHEMISTRY SHE[facility]BY PRITCHETT [facility]# [id number] [address] [facility] [place] [address] * (ABNORMAL) COMPREHENSIVE METABOLIC PANEL (07/31/2019 11:33 AM CDT) Pathologist [facility] SODIUM 140 136 - 145 mmol/L 07/31/2019 12:59 PM CDT [facility] POTASSIUM 4.2 3.5 - 5.0 mmol/L 07/31/2019 12:59 PM CDT [facility] CHLORIDE 103 98 - 107 mmol/L 07/31/2019 12:59 PM CDT [facility] CO2 26 22 - 29 mmol/L 07/31/2019 12:59 PM CDT [facility] CALCIUM 9.1 8.6 - 10.2 mg/dL 07/31/2019 12:59 PM CDT [facility] - . [facility] BUN 12 6 - 20 mg/dL 07/31/2019 12:59 PM [facility] CREATININE 1.26(H) 0.67 - 1.17 mg/dL 07/31/2019 12:59 PM [facility] - [facility] GLUCOSE 78 74 - 99 mg/dL 07/31/2019 12:59 PM [facility]ORATORY SERVICES - [facility] TOTAL PROTEIN 7.4 6.7 - 8.6 g/dL 07/31/2019 12:59 PM [facility] ALBUMIN 3.9 3.5 - 5.2 g/dL 07/31/2019 12:59 PM [facility] BILIRUBIN TOTAL 0.3 0.3 - 1.2 mg/dL 07/31/2019 12:59 PM [facility] ALKALINE PHOSPHATASE 78 40 - 129 U/L 07/31/2019 12:59 PM [facility] AST 21 <41 U/L 07/31/2019 12:59 PM [facility] ALT 25 <42 U/L 07/31/2019 12:59 PM [facility] - . [place] GFR >60 >=60 mL/min/1.7 3 sq meter 07/31/2019 12:59 PM [facility] - [facility] Comment: eGFR has not been validated [...] GFR, >60 >=60 mL/min/1.7 3 sq meter 07/31/2019 12:59 PM CDT [facility] - . [place] ANION GAP 11 8 - 16 mmol/L 07/31/2019 12:59 PM [facility] - . [facility] Blood Venipuncture / Unknown 07/31/2019 11:33 AM CDT 07/31/2019 11:50 AM CDT Narrative [facility] - 07/31/2019 12:59 PM CDT Samples containing indocyanine green cause interferences on Total and/or Direct Bilirubin and must not be measured. Annette Whitney MD CHEMISTRY ORDSmash Haus Music GroupKENDRICK Performing Organization Address City/[facility]/ZIP Co de Phone Number [facility] CLIA# [id number] [address] [place] [address] * (ABNORMAL) C-REACTIVE PROTEIN (07/31/2019 11:33 AM CDT) Pathologist [facility] CRP 8.3(H) <5.0 mg/L 07/31/2019 12:59 PM CDT [facility] Jam[facility] Blood Venipuncture / Unknown 07/31/2019 11:33 AM CDT 07/31/2019 11:50 AM CDT Annette Whitney MD CHEMISTRY ORDSm[employer] GroupKENDRICK Performing Organization Address City/[facility]/ZIP Co de Phone Number [facility] Jamn [facility] CLIA# [id number] [facility] [address] * (ABNORMAL) CBC WITH DIFFERENTIAL (07/31/2019 11:33 AM CDT) Pathologist [facility] WBC 5.5 4.0 - 9.8 K/uL 07/31/2019 12:04 PM CDT [facility] RBC 6.03(H) 4.50 - 5.40 M/uL 07/31/2019 12:04 PM CDT [facility] HEMOGLOBIN 17.2(H) 13.6 - 16.5 g/dL 07/31/2019 12:04 PM CDT [facility] LAB[facility]ORY [facility] HEMATOCRIT 52.3(H) 40.0 - 48.0 % 07/31/2019 12:04 PM CDT [facility] SERVICES [facility] MCV 86.7 82.0 - 99.0 fL 07/31/2019 12:04 PM CDT [facility] - [facility] MCH 28.5 27.2 - 32.6 pg 07/31/2019 12:04 PM CDT [facility] - [facility] MCHC 32.9 31.5 - 35.5 g/dL 07/31/2019 12:04 PM CDT [facility] - [facility] RDW 12.7 11.5 - 14.5 % 07/31/2019 12:04 PM CDT [facility] - [facility] RDW-STDEV 39.8 37.1 - 48.7 fL 07/31/2019 12:04 PM CDT [facility] - . [place] PLATELETS 325 140 - 350 K/uL 07/31/2019 12:04 PM CDT [facility] - [facility] MPV 9.7 9.3 - 12.4 fL 07/31/2019 12:04 PM CDT [facility] NEUTROPHILS 59 % 07/31/2019 12:04 PM CDT [facility] LYMPHOCYTES 22 % 07/31/2019 12:04 PM CDT [facility] MONOCYTES 13 % 07/31/2019 12:04 PM CDT [facility] EOSINOPHILS 5 % 07/31/2019 12:04 PM CDT [facility] BASOPHILS 1 % 07/31/2019 12:04 PM CDT [facility] IMMATURE GRANULOCYTES 0 % 07/31/2019 12:04 PM CDT [facility] NEUTROPHIL ABSOLUTE 3.21 1.90 - 7.00 K/uL 07/31/2019 12:04 PM CDT [facility] LYMPHOCYTE ABSOLUTE 1.21 0.70 - 4.50 K/uL 07/31/2019 12:04 PM CDT [facility] MONOCYTE ABSOLUTE 0.70 0.10 - 1.30 K/uL 07/31/2019 12:04 PM CDT [facility] EOSINOPHIL ABSOLUTE 0.29 0.00 - 0.70 K/uL 07/31/2019 12:04 PM CDT [facility] BASOPHILS ABSOLUTE 0.04 0.00 - 0.20 K/uL 07/31/2019 12:04 PM CDT [facility] - [facility] IMMATURE GRANULOCYTES ABSOLUTE 0.02 0.00 - 0.03 K/uL 07/31/2019 12:04 PM CDT [facility] LAB[facility] Blood Venipuncture / Unknown 07/31/2019 11:33 AM CDT 07/31/2019 11:50 AM CDT Annette Whitney MD HEMATOLOGY ORD ERABLES [facility] LABORATORY [facility] CLIA# [id number] [address] [facility] [address] documented in this encounter Visit Diagnoses Diagnosis Ulcerative pancolitis with complication- Primary Pouchitis documented in this encounter Care Teams Senior Solutions Architect Relationship Specialty Start Date End Date Jasiel Freeman MD [address] [place] [phone] PCP - General Family Practice 08/15/17 documented as of this encounter
--- OUTSIDE RECORDS SUMMARY | 2024-10-24 05:31 | XMS_ITS | Encounter Summary ---
Author Organization [facility] Address [address] [place] [address] Care Team Providers Care Mechanical Designer Name Role Phone Jasiel Freeman MD Primary Care Provider Encounter Details Date Type Department Care Team (Late Contact Info) Description 10/14/2019 Abstract [facility] Gastroenterology [facility] [address] [facility] [address] [place] [address] Joaquina Prescott, RN Social History Tobacco Use [...] Health [facility] IBD and Gastroenterology [facility] [address] [place] [address] Kitty Dover, MIRTA [address] [facility] [address] [place] [address] documented as of this encounter Visit Diagnoses Not on filedocumented in this encounter Care Teams Mechanical Designer Relationship Specialty Start Date End Date Jasiel Freeman MD [address] [place] [address] PCP - General Family Practice 08/15/17 documented as of this encounter
--- OUTSIDE RECORDS SUMMARY | 2024-10-24 05:31 | XMS_ITS | Encounter Summary ---
Author Organization [facility] Address [address] [place] [address] Care Team Providers Care College Administrator Name Role Phone Jasiel Freeman MD Primary Care Provider Encounter Details Date Type Department Care Team (Late Contact Info) Description 07/31/2019 Abstract [facility] Gastroenterology [facility] [address] [facility] [address] [place] [address] Annette Whitney MD 1 [facility] [place] [phone] Social History Tobacco Use Types Packs/Day Years [...] 02/13/2025 10:30 AM CDT Office Visit [facility] IBD and Gastroenterology [place] [address] [facility] [address] [place] [address] Kitty Dover, ANP [address] [facility] 100 [place] [address] documented as of this encounter Visit Diagnoses Not on filedocumented in this encounter Care Teams College Administrator Relationship Specialty Start Date End Date Jasiel Freeman MD [address] [place] [phone] PCP - General Family Practice 08/15/17 documented as of this encounter
--- OUTSIDE RECORDS SUMMARY | 2024-10-24 05:31 | XMS_ITS | Encounter Summary ---
Author Organization [facility] Address [address] [place] [address] Care Team Providers Care Finishing Supervisor Name Role Phone Jasiel Freeman MD Primary Care Provider [phone] Reason for Visit * Reason Comments Medication Refill Encounter Details Date Type Department Care Team (Late st Contact Info) Description 08/06/2019 Refill [facility] Gastroenterology [facility] [address] [facility] [address] [place] [address] Annette Whitney MD [address] [facility] [place] [phone] Social History Tobacco Use Types Packs/Day Years [...] Description 02/13/2025 10:30 AM CDT Office [facility] [place] [address] [place] [address] Kitty Dover ANP [address] [facility] 100 [place] [address] documented as of this encounter Visit Diagnoses Not on filedocumented in this encounter Care Teams Finishing Supervisor Relationship Specialty Start Date End Date Jasiel Freeman MD [address] [place] [phone] PCP - General Family Practice 08/15/17 documented as of this encounter
--- OUTSIDE RECORDS SUMMARY | 2024-10-24 05:31 | XMS_ITS | Encounter Summary ---
Author Organization [facility] Address [address] [place] [address] Care Team Providers Care Fuller Brush Man Name Role Phone Jasiel Freeman MD Primary Care Provider Reason for Visit * Reason Comments Insurance Issues Entyvio with [employer]-c ontinuation of home infusions Encounter Details Date Type Department Care Team (Late st Contact Info) Description 08/07/2019 Chart Note [facility] Gastroenterology [facility] [address] [address] Joaquina Prescott, RN Insurance Issues (Entyvio with [employer]-continuation of home infusions) Social History Tobacco Use Types Packs/Day Years [...] Progress Notes * Joaquina Prescott RN - 08/07/2019 3:43 PM CDT Spoke to Li with [employer] Specialty Precertification There was a waiver to get infusions in his chart. But there were still some concerns, I have answered all the questions she required at the time. The Precertification Pending Reference # is [id number]--axz infusion of the Entyvio has been approved.We are waiting for the approval of facility ([facility]). If approved, it will be for pkxtiv91 days or 6 months. Their number is [phone] and fax number is [phone] documented in this encounter Plan of Treatment Upcoming Encounters Date Type Department Care Team (Late st Contact Info) Description 02/13/2025 10:30 AM CDT Office Visit [facility] IBD and Gastroenterology [facility] [address] [facility] 180 [place] [address] Kitty Dover, MIRTA [address] [facility] 100 [place] [phone] documented as of this encounter Visit Diagnoses Not on filedocumented in this encounter Care Teams Fuller Brush Man Relationship Specialty Start Date End Date Jasiel Freeman MD [address] [place] [phone] PCP - General Family Practice 08/15/17 documented as of this encounter
--- OUTSIDE RECORDS SUMMARY | 2024-10-24 05:31 | XMS_ITS | Encounter Summary ---
Author Organization [facility] Address [address] [place] [address] Care Team Providers Care Lighting Director Name Role Phone Jasiel Freeman MD Primary Care Provider [phone] Encounter Details Date Type Department Care Team (Late Contact Info) Description 09/10/2019 Abstract [facility] Gastroenterology [facility] [address] [facility] [address] [place] [address] Annette Whitney MD 1 [facility] [place] [phone] Social History Tobacco Use Types Packs/Day Years [...] 02/13/2025 10:30 AM CDT Office Visit [facility] IBD and Gastroenterology [place] [address] [facility] 180 [place] [address] Kitty Dover, ANP [address] [facility] 100 [place] [address] documented as of this encounter Visit Diagnoses Not on filedocumented in this encounter Care Teams Lighting Director Relationship Specialty Start Date End Date Jasiel Freeman MD [address] [place] [phone] PCP - General Family Practice 08/15/17 documented as of this encounter
--- OUTSIDE RECORDS SUMMARY | 2024-10-24 05:31 | XMS_ITS | Encounter Summary ---
Author Organization [facility] Address [address] [place] [address] Care Team Providers Care Reproduction Artist Name Role Phone Jasiel Freeman MD Primary Care Provider Encounter Details Date Type Department Care Team (Late Contact Info) Description 08/08/[address] [facility] Gastroenterology [facility] [address] [facility] [address] [place] [address] Joaquina Prescott, RN Social History [...] Office Visit [facility] IBD and Gastroenterology [facility] [address] [place] [address] Kitty Dover, MIRTA [address] [facility] [address] [place] [address] documented as of this encounter Visit Diagnoses Not on filedocumented in this encounter Care Teams Reproduction Artist Relationship Specialty Start Date End Date Jasiel Freeman MD 5 [place] [phone] PCP - General Family Practice 08/15/17 documented as of this encounter
--- OUTSIDE RECORDS SUMMARY | 2024-10-24 05:31 | XMS_ITS | Encounter Summary ---
Author Organization [facility] Address [address] [place] [address] Care Team Providers Care Route Service Manager Name Role Phone Jasiel Freeman MD Primary Care Provider Encounter Details Date Type Department Care Team (Late st Contact Info) Description 08/23/2019 Abstract [facility] Gastroenterology [place] [address] [place] [address] Joaquina Prescott, RN Social History [...] Description 02/13/2025 10:30 AM CDT Office Visit [facility] IBD and Gastroenterology [facility] [place] [address] [place] [address] Kitty Dover, MIRTA [address] [place] [address] [place] [address] documented as of this encounter Visit Diagnoses Not on filedocumented in this encounter Care Teams Route Service Manager Relationship Specialty Start Date End Date Jasiel Freeman MD 5 [place] [address] PCP - General Family Practice 08/15/17 documented as of this encounter
--- OUTSIDE RECORDS SUMMARY | 2024-10-24 05:31 | XMS_ITS | Encounter Summary ---
Author Organization [facility] Address [address] [place] [address] Care Team Providers Care Electric Range Servicer Name Role Phone Jasiel Freeman MD Primary Care Provider Encounter Details Date Type Department Care Team (Late st Contact Info) Description 10/31/2019 Orders Only [facility] Gastroenterology [facility] [address] [facility] [address] [place] [address] Annette Whitney MD 1 [facility] [place] [phone] Ulcerative pancolitis with complication Social History Tobacco Use Types Packs/Day [...] 02/13/2025 10:30 AM CDT Office Visit [facility] IBD and Gastroenterology [place] [address] [place] [phone] Kitty Dover, MIRTA [address] [place] [address] documented as of this encounter Procedures Procedure Name Priority Date/Time Associated Diagnosis Comments CBC WITH DIFFERENTIAL Routine 10/28/2019 Ulcerative pancolitis with complication C-REACTIVE PROTEIN Routine 10/28/2019 Ulcerative pancolitis with complication COMPREHENSIVE METABOLIC PANEL Routine 10/28/2019 Ulcerative pancolitis with complication documented in this encounter Results * CBC WITH DIFFERENTIAL (10/28/2019) Blood Annette Whitney MD HEMATOLOGY ORD ERABLES [facility] * COMPREHENSIVE METABOLIC PANEL (10/28/2019) Blood Annette Whitney MD CHEMISTRY ORDE RABLES [facility] * C-REACTIVE PROTEIN (10/28/2019) Blood Annette Whitney MD CHEMISTRY ORDE RABLES [facility] documented in this encounter Visit Diagnoses Diagnosis Ulcerative pancolitis with complication documented in this encounter Care Teams Electric Range Servicer Relationship Specialty Start Date End Date Jasiel Freeman MD [address] [place] [phone] PCP - General Family Practice 08/15/17 documented as of this encounter
--- OUTSIDE RECORDS SUMMARY | 2024-10-24 05:31 | XMS_ITS | Encounter Summary ---
Author Organization [facility] Address [address] [place] [address] Care Team Providers Care Metal Stud Framer Name Role Phone Jasiel Freeman MD Primary Care Provider Encounter Details Date Type Department Care Team (Late st Contact Info) Description 06/28/2019 Specialty Pharmacy [facility] [place] [address] [place] [phone] Mariia Douglass PHARMACIST Specialty Pharmacy Home Infusion Coordination Social History Tobacco Use Types Packs/Day Years [...] as of this encounter Progress Notes * Mariia Douglass, PHARMACIST - 06/28/2019 12:25 PM CDT Attempted to renew patient's Entyvio authorization, notified that as of 01/21/19 the patient's benefits have changed and now Entyvio is carved out of the medical benefit and must be processed under hispharmacy benefit. Patient's specialty pharmacy benefit requires dispense by [facility] Specialty pharmacy.Contacted [facility] Specialty pharmacy ([phone]) to ensure they could adequately provide services for a home infusion patient and was told that nursing services would be contracted through [facility] and that medication and supplies would be provided by [facility] Specialty pharmacy. Physician's office would need to contact the pharmacy to request medication, supply and nursing order form. Patient has alreadybeen set up with an account at [facility] Specialty pharmacy. Contacted Dr Whitney's office to relay above information and provided the office with contact information. Also advised that patient is due for his next Entyvio infusion on 07/10/19. Will discharge patient from [facility] Specialty and Home Infusion pharmacy services. Mariia Harrington, PHARMACIST documented in this encounter Plan of Treatment Upcoming Encounters Date Type Department Care Team (Late st Contact Info) Description 02/13/2025 10:30 AM CDT Office Visit [facility] IBD and Gastroenterology [facility] [place] [address] [place] [phone] Kitty Dover, MIRTA [address] [place] [address] [place] [address] documented as of this encounter Visit Diagnoses Not on filedocumented in this encounter Care Teams Metal Stud Framer Relationship Specialty Start Date End Date Jasiel Freeman MD [address] [place] [phone] PCP - General Family Practice 08/15/17 documented as of this encounter
--- OUTSIDE RECORDS SUMMARY | 2024-10-24 05:31 | XMS_ITS | Encounter Summary ---
Author Organization [facility] Address [address] [place] [address] Care Team Providers Care Die Operator Name Role Phone Jasiel Freeman MD Primary Care Provider Reason for Visit * Reason Onset Date Comments Flare triage 10/11/2019 Encounter Details Date Type Department Care Team (Late st Contact Info) Description 10/11/2019 Telephone [facility] Gastroenterology [facility] [address] [facility] [address] [place] [address] Annette Whitney MD [address] [facility] [address] [place] [address] Flare triage Social History Tobacco Use Types Packs/Day Years [...] Telephone Encounter - Annette Whitney MD - 10/25/2019 11:49 AM CHRONIC CARE NURSE Can you check in with Edgardo. I do not see that the labs we have recommended have been done. Thanks NIC CARE NURSE * Telephone Encounter - Joaquina Prescott RN - 10/11/2019 12:40 PM CHRONIC CARE NURSE Edgardo is having some increase in symptoms. He is on entyvio, has been re- initiated due to insurance taking a while to get approved for his home infusions. He lives in [place]. Labs would need to be obtained by the PCP but he is unsure when he can get there. Will order CBC, CMP, CRP and C.diff for non- [facility] lab. His most concerning symptom is the spasming in his stomach. It is a 1-2/10 on the pain level, but the tightness, bloat and spasming in his stomach are 'annoying'. Lichtiger score 7 1) How many bowel movements a day are you having (24 hr period)? 5-6 2) Are you having nocturnal bowel movements? Yes 3) Any visible blood? No 4) Urgency? Any fecal incontinence? Urgency not incontinence 5) Abdominal pain? Cramping? Mild, tighten, bloated, and spasming 6) What is your general well being? Good 7) Any Abdominal tenderness? None 8) Have you needed to take anti-diarrheal medications? Imodium-does help and ibuprophen 9) Are you having a fever? What is the temperature? No 10) Are you having any chills? No NIC CARE NURSE documented in this encounter Plan of Treatment Upcoming Encounters Date Type Department Care Team (Late st Contact Info) Description 02/13/2025 10:30 AM CDT Office Visit [facility] IBD and Gastroenterology [place] [address] [place] [address] Kitty Dover, MIRTA [address] [place] [address] documented as of this encounter Results * C-REACTIVE PROTEIN (10/28/2019) Blood Annette Whitney MD CHEMISTRY ORDE RABKENDRICK [facility] * COMPREHENSIVE METABOLIC PANEL (10/28/2019) Blood Annette Whitney MD CHEMISTRY ORDE SHRE[place]AS [facility] * CBC WITH DIFFERENTIAL (10/28/2019) Blood Annette Whitney MD HEMATOLOGY ORD ERABLES [facility] documented in this encounter Visit Diagnoses Diagnosis Ulcerative pancolitis with complication- Primary documented in this encounter Care Teams Die Operator Relationship Specialty Start Date End Date Jasiel Freeman MD [address] [place] [phone] PCP - General Family Practice 08/15/17 documented as of this encounter
--- OUTSIDE RECORDS SUMMARY | 2024-10-24 05:31 | XMS_ITS | Encounter Summary ---
Author Organization [facility] Address [address] [place] [address] Care Team Providers Care Bilingual Interpreter Name Role Phone Jasiel Freeman MD Primary Care Provider Reason for Visit * Reason Onset Date Comments Labs Only 10/25/2019 Encounter Details Date Type Department Care Team (Late st Contact Info) Description 10/25/2019 Telephone [facility] Gastroenterology [place] A [address] [place] [address] Jailene Whitney MD 1 [facility] [address] [place] [address] Labs Only Social History Tobacco Use Types Packs/Day Years [...] * Telephone Encounter - Ada Tan - 10/29/2019 2:30 PM CST PCP will fax over results from labs 10/29/19 @ 2:30 ELAIN TECHNICIAN * Addendum Note - Jailene Whitney MD - 10/29/2019 1:05 PM CSTAddended by: JAILENE WHITNEY on: 10/29/2019 01:05 PM Modules accepted: Orders ELAIN TECHNICIAN * Telephone Encounter - Jailene Whitney MD - 10/29/2019 1:01 PM PORCELAIN TECHNICIAN Pauline, can you reach out to his PCP office about faxing us the results of the lab tests he had donethere for me. thanks ELAIN TECHNICIAN * Telephone Encounter - Joaquina Prescott RN - 10/25/2019 3:35 PM PORCELAIN TECHNICIAN Patient got labs done on 10/15/19, we are waiting on results. He is not getting worse but also not better. Says is the same. ELAIN TECHNICIAN documented in this encounter Plan of Treatment Upcoming Encounters Date Type Department Care Team (Late st Contact Info) Description 02/13/2025 10:30 AM CDT Office Visit [facility] IBD and Gastroenterology Center [place] [address] [place] [address] Kitty Dover, MIRTA [address] [place] [address] [place] [address] documented as of this encounter Visit Diagnoses Not on filedocumented in this encounter Care Teams Bilingual Interpreter Relationship Specialty Start Date End Date Jasiel Freeman MD [address] [place] [phone] PCP - General Family Practice 08/15/17 documented as of this encounter
--- OUTSIDE RECORDS SUMMARY | 2024-10-24 05:31 | XMS_ITS | Encounter Summary ---
Author Organization [facility] Address [address] [place] [address] Care Team Providers Care Police Chief Deputy Name Role Phone Jasiel Freeman MD Primary Care Provider Encounter Details Date Type Department Care Team (Late st Contact Info) Description 08/19/2019 Specialty Pharmacy [facility] [place] [address] [place] [phone] Thanh Solares, PHARMACIST Social History Tobacco Use [...] of this encounter Progress Notes * Thanh oSlares, PHARMACIST - 08/19/2019 10:16 AM CDT Images from the original note were not included. [facility] [place] Edgardo Georgette Elkins 48 y.o. / male Patient's address on file: [address] [address] Home Phone Work Phone Home Infusion Order [...] [facility] Gastroenterology [address], [address] [place] [address] Generic substitution permitted Detailed Home Infusion Orders [...] RN will take any ordered labs to [facility] when possible. If labs are not taken to a [facility] lab, it is the responsibility of nursing to make sure labs are faxed to the pharmacy at [phone] Whitney. Catheter Care Catheter type: PIV placed by BRIM BUSTER prior to each infusion Flush IV catheter [...] lab draws/line complications. ?? Flushes provided by [facility] pharmacy are for [...] Elkins (48 y.o. male) is active with [facility] services receiving Entyvio every 8 weeks at home for ulcerative colitis. ?? Edgardo is due for his next infusion this week. Pharmacist contacted BRIM BUSTER to coordinate delivery. RN will flower buncher or picker today. Patient received last infusion without issue. No questions or concerns at this time. Patient has appointment with Dr. Nair on 01/29. 05/13/19 - Spoke with the patient who stated he is doing well. He has had no changes in his medication therapy or no clinical issues. Will ship medications and supplies to the patient. Thanh Solares MBA, [facility] 08/08/19 - Patient to receive infusion of Entyvio today after an insurance issue. Will send medications and supplies for the infusion. JEANNA 08/19/19 - Confirmed with the nurse caser that the patient was scheduled to receive IV infusion of Entyvio on 08/22/19. Called the patient and left message that the delivery would be sent on 08/19/19 to the patient. RDS Timeline/Summary of Home Infusion Therapy: 11/15/17 - Start of Care / Entyvio week 0 11/29/17 - Week 2 12/28/17 - Week 6 02/21/18 - Begin maintenance dose every 8 weeks 11/26/18 - Approved x [address] Whitney Home Infusion Care Team IV Pharmacy: [facility] / [phone] Nursing Agency: [facility] Physician(s): Dr. Whitney Additional Relevant Data Insurance Information: Payor: RX [facility] / Plan: RX PCS ADVANCE PARADIGM / Product Type: RX Caremark / IV access PIV placed by BRIM BUSTER prior to each infusion Ht Readings from Last 3 Encounters: 07/31/19 5' 9 (1.753 m) 01/29/19 5' 9 (1.753 m) 10/05/17 5' 9 (1.753 m) Wt Readings from Last 3 Encounters: 07/31/19 86.5 kg (190 lb 12.8 oz) 01/29/19 85.8 kg (189 lb 3.2 oz) 10/05/17 87.5 kg (192 lb 12.8 oz) Patient Active Problem List Diagnosis Code [...] level: Not on file Occupational History Employer: [employer] Employer: [employer] Social Needs ??? Financial resource strain: Not on file ??? Food insecurity: Worry: Not on file Inability: Not on file ??? Transportation needs: Medical: Not on file Non-medical: Not on file Tobacco Use ??? Smoking status: Former Smoker Packs/day: 0.50 Years: 10.00 Pack years: 5.00 Types: Cigarettes Last attempt to quit: 06/09/2011 Years since quittin.2 ? ? Tobacco comment: off & on [...] file Gets together: Not on file Attends tenriism service: Not on file Active member of [...] file Medication Review Current Outpatient Medications: ??? SOLU-MEDROL, PF, 40 mg/mL Recon Soln, [...] EXCESS, Disp: 1 mL, Rfl: 0 ??? Cyanocobalamin (NASCOBAL) 500 mcg/spray [place], Non-Aerosol, 1 [place] by See Admin Instructions route every 7 days. 1 spray, 1 nostril, 1x week, Disp: 1 mL, Rfl: 12 ??? ergocalciferol (VITAMIN D2) 50,000 unit capsule, Take 1 Capsule (50,000 Units) by mouth every 7days. For 8 weeks then once every other week., Disp: 8 Capsule, Rfl: 2 ??? vedolizumab (ENTYVIO) 300 mg Recon Soln, Inject 300 mg by intraveous injection see administration instructions. Home BRIM BUSTER to administer over 30 minutes every 8 weeks., Disp: 300 mg, Rfl: 3 ??? diphenoxylate-atropine (LOMOTIL) 2.5-0.025 mg tablet, Take 1 Tablet by mouth 4 times daily as needed for Diarrhea/Loose Stools., Disp: 60 Tablet, Rfl: 1 ??? metroNIDAZOLE (FLAGYL) 500 mg tablet, Take [...] Provided to Patient ?? Pharmacist offer to prison classification counselor ?? RN instruction ?? Printed teaching sheets ?? Drug information paperwork - [facility] patient leaflet Thanh Solares PHARMACIST [facility] [place] [address] , [address] [place] [address] documented in this encounter Plan of Treatment Upcoming Encounters Date Type Department Care Team (Late st Contact Info) Description 02/13/2025 10:30 AM CDT Office Visit [facility] [place] [address] [place] [address] Kitty Dover ANP [address] [address] [place] [address] documented as of this encounter Visit Diagnoses Not on filedocumented in this encounter Care Teams Police Chief Deputy Relationship Specialty Start Date End Date Jasiel Freeman MD [address] [place] [phone] PCP - General Family Practice 08/15/17 documented as of this encounter
--- OUTSIDE RECORDS SUMMARY | 2024-10-24 05:31 | XMS_ITS | Encounter Summary ---
Author Organization [facility] Address [address] [place] [address] Care Team Providers Care Fisheries Biologist Name Role Phone Jasiel Freeman MD Primary Care Provider Encounter Details Date Type Department Care Team (Late st Contact Info) Description 11/15/2019 Specialty Pharmacy [facility] [place] [address] [place] [phone] Thanh Solares, PHARMACIST Social History Tobacco Use [...] Progress Notes * Thanh Solares, PHARMACIST - 11/15/2019 9:04 AM CST Images from the original note were not included. [facility] [place] Edgardoisaiah Elkins 49 y.o. / male Patient's address on file: [address] [address] Home Phone Work Phone Home Infusion Order [...] 05/26/19) Per: Caren / KESHA Whitney [facility] Gastroenterology [address], [address] [facility] [address] Generic substitution permitted Detailed Home Infusion Orders [...] will take any ordered labs to [facility] when possible. If labs are not taken to a [facility] lab, it is the responsibility of nursing to make sure labs are faxed to the pharmacy at [phone] Whitney. Catheter Care Catheter type: PIV placed by APIARIST prior to each infusion Flush IV catheter [...] draws/line complications. ?? Flushes provided by [facility] pharmacy are [...] Elkins (49 y.o. male) is active with [facility] services receiving Entyvio every 8 weeks at home for ulcerative colitis. ?? Edgardo is due for his next infusion this week. Pharmacist contacted APIARIST to coordinate delivery. RN will continuous pickling line pickler today. Patient received last infusion without issue. No questions or concerns at this time. Patient has appointment with Dr. Nair on 01/29. 05/13/19 - Spoke with the patient who stated he is doing well. He has had no changes in his medication therapy or no clinical issues. Will ship medications and supplies to the patient. Thanh Solares MBA, [facility] 08/08/19 - Patient to receive infusion of Entyvio today after an insurance issue. Will send medications and supplies for the infusion. JEANNA 08/19/19 - Confirmed with the nurse case management manager that the patient was scheduled to [...] supplies on 11/15/2019 to the patient. RDS Timeline/Summary of Home Infusion Therapy: 11/15/17 - Start of Care / Entyvio week 0 11/29/17 - Week 2 12/28/17 - Week 6 02/21/18 - Begin maintenance dose every 8 weeks 11/26/18 - Approved x [address] Whitney Home Infusion Care Team [facility] / [phone] Nursing Agency: [facility] Physician(s): Dr. Whitney Additional Relevant Data Insurance Information: Payor: RX [facility] / Plan: RX PCS ADVANCE PARADIGM / Product Type: RX Caremark / IV access PIV placed by APIARIST prior to each infusion Ht Readings from [...] level: Not on file Occupational History Employer: [employer] Employer: [employer] Social Needs ??? Financial resource strain: Not on file ??? Food insecurity: Worry: Not on file Inability: Not on file ??? Transportation needs: Medical: Not on file Non-medical: Not on file Tobacco Use ??? Smoking status: Former Smoker Packs/day: 0.50 Years: 10.00 Pack years: 5.00 Types: Cigarettes Last attempt to quit: 06/09/2011 Years since quittin.4 ? ? Tobacco comment: off & on [...] file Gets together: Not on file Attends denominational service: Not on file Active member of [...] file Medication Review Current Outpatient Medications: ??? metroNIDAZOLE (FLAGYL) 500 mg tablet, Take 1 Tablet (500 mg) by mouth 3 times daily for 5 days., Disp: 15 Tablet, Rfl: 0 ??? diphenoxylate-atropine (LOMOTIL) 2.5-0.025 mg tablet, Take 1 Tablet by mouth 4 times daily as needed for Diarrhea/Loose Stools., Disp: 60 Tablet, Rfl: 1 ??? cyanocobalamin (VITAMIN B-12) 1,000 mcg/mL Solution, Inject 1 mL (1,000 mcg) by intramuscular injection every 7 days., Disp: 10 mL, Rfl: 1 ??? ergocalciferol (VITAMIN D2) 50,000 unit capsule, Take 1 Capsule (50,000 Units) by mouth every 2weeks. For 8 weeks then once every other week., Disp: 8 Capsule, Rfl: 2 ??? SOLU-MEDROL, PF, 40 mg/mL [...] by intraveous injection see administration instructions. Home APIARIST to administer over 30 minutes every 8 [...] Provided to Patient ?? Pharmacist offer to college and career counselor ?? RN instruction ?? Printed teaching sheets ?? Drug information paperwork - [facility] patient leaflet FADI Silverman [facility] [place] [id number] [place] [address] , [address] [place] [address] ING COORDINATOR documented in this encounter Plan of Treatment Upcoming Encounters Date Type Department Care Team (Late st Contact Info) Description 02/13/2025 10:30 AM CDT Office Visit [facility] [place] [address] [place] [address] Kitty Dover ANP [address] [place] [address] [place] [address] documented as of this encounter Visit Diagnoses Not on filedocumented in this encounter Care Teams Fisheries Biologist Relationship Specialty Start Date End Date Jasiel Freeman MD [address] [place] [phone] PCP - General Family Practice 08/15/17 documented as of this encounter
--- OUTSIDE RECORDS SUMMARY | 2024-10-24 05:31 | XMS_ITS | Encounter Summary ---
Author Organization [facility] Address [address] [place] [address] Care Team Providers Care Toll Bridge Operator Name Role Phone Jasiel Freeman MD Primary Care Provider Encounter Details Date Type Department Care Team (Latest Contact Info) Description 07/31/2019 11:30 AM CDT - 07/31/2019 11:59 PM CDT Hospital Encounter [facility] Laboratory Services Medical [place] [address], [place] [address] Annette Whitney MD [address] [place] [address] Discharge Disposition: Home or Self Care Social [...] Sig Dispensed Refills Start Date End Date TESTOSTERONE, BULK, MISC 1 mL by Misc.(Non-Drug; Combo Route) route. cefdinir (OMNICEF) 300 mg capsule Take 1 Capsule (300 mg) by mouth every 12 hours for 14 days. 28 Capsule 07/31/2019 08/14/2019 vedolizumab (ENTYVIO) 300 mg Recon Soln Inject 300 mg by intraveous injection see administration instructions. Home PORTUGUESE TUTOR to administer over 30 minutes every 8 weeks. 300 mg 3 07/31/2019 11/14/2022 diphenoxylate-atrop ine (LOMOTIL) 2.5-0.025 mg tablet Take 1 Tablet by mouth 4 times daily as needed for Diarrhea/Loose Stools. 60 Tablet 1 01/29/2019 11/13/2019 ergocalciferol (VITAMIN D2) 50,000 unit capsule Take 1 Capsule (50,000 Units) by mouth every 7 days For 12 weeks then once every other week.. 8 Capsule 2 01/29/2019 08/01/2019 metroNIDAZOLE (FLAGYL) 500 mg tablet Take 1 Tablet (500 mg) by mouth 3 times daily. 30 Tablet 08/28/2018 11/13/2019 metroNIDAZOLE (FLAGYL) 250 mg tablet Take 1 Tablet (250 mg) by mouth 3 times daily. 90 Tablet 09/19/2017 11/13/2019 documented as of this encounter Plan of Treatment Upcoming Encounters Date Type Department Care Team (Late st Contact Info) Description 02/13/2025 10:30 AM CDT Office Visit [facility] Gastroenterology [facility] [place] [address] [place] [phone] Kitty Dover ANP [address] [place] [address] documented as of this encounter Procedures Procedure Name Priority Date/Time Associated Diagnosis Comments CBC WITH DIFFERENTIAL Routine 07/31/2019 11:33 AM CDT Ulcerative pancolitis with complication Pouchitis VITAMIN D 25 HYDROXY Routine 07/31/2019 11:33 AM CDT Ulcerative pancolitis with complication Pouchitis C-REACTIVE PROTEIN Routine 07/31/2019 11 :33 AM CDT Ulcerative pancolitis with complication Pouchitis VITAMIN B12 LEVEL Routine 07/31/2019 11: 33 AM CDT Ulcerative pancolitis with complication Pouchitis COMPREHENSIVE METABOLIC PANEL Routine 07/31/2019 11:33 AM CDT Ulcerative pancolitis with complication Pouchitis documented in this encounter Results * (ABNORMAL) VITAMIN B12 LEVEL (07/31/2019 11:33 AM CDT) VITAMIN B12 222(L) 232-1,245 pg/mL 07/31/2019 1:28 PM CDT [facility] Comment:It has been reported that between 5 to 10% of patients with values between 200 and 400 pg/mL may experience neuropsychiatric and hematologic abnormalities due to occult B12 deficiency. Less than 1% of patients with values above 400 pg/mL will have symptoms. Blood Venipuncture / Unknown 07/31/2019 11:33 AM CDT 07/31/2019 11:50 AM CDT Annette Whitney MD CHEMISTRY SHELBY PRITCHETT [facility]# [id number] [address] [facility] [address] [facility] [place] [address] * (ABNORMAL) VITAMIN D 25 HYDROXY (07/31/2019 11:33 AM CDT) Pathologist [facility] VITAMIN D TOTAL (25OH) 23(L) 30 - 100 ng/mL 07/31/2019 1:28 PM CDT [facility] Blood Venipuncture / Unknown 07/31/2019 11:33 AM CDT 07/31/2019 11:[address] [facility] [facility] - 07/31/2019 1:28 PM CDT Interpretive Data Chart: Deficient: ? 0 - 20 ng/mL Insufficient: ?21 - 29 ng/mL Sufficient: ?30 - 100 ng/mL Increased Risk of Hypercalciuria: ??>100 ng/ml Toxic: ? >150 ng/ml Annette Whitney MD CHEMISTRY SHELBY PRITCHETT [facility] CLIA# [id number] [address] [facility] [place] [address] * (ABNORMAL) COMPREHENSIVE METABOLIC PANEL (07/31/2019 11:33 AM CDT) SODIUM 140 136 - 145 mmol/L 07/31/2019 12:59 PM CDT [facility] POTASSIUM 4.2 3.5 - 5.0 mmol/L 07/31/2019 12:59 PM CDT [facility] CHLORIDE 103 98 - 107 mmol/L 07/31/2019 12:59 PM CDT [facility] CO2 26 22 - 29 mmol/L 07/31/2019 12:59 PM CDT [facility] CALCIUM 9.1 8.6 - 10.2 mg/dL 07/31/2019 12:59 PM CDT [facility] BUN 12 6 - 20 mg/dL 07/31/2019 12:59 PM CDT [facility] CREATININE 1.26(H) 0.67 - 1.17 mg/dL 07/31/2019 12:59 PM CDT [facility] GLUCOSE 78 74 - 99 mg/dL 07/31/2019 12:59 PM CDT [facility] TOTAL PROTEIN 7.4 6.7 - 8.6 g/dL 07/31/2019 12:59 PM CDT [facility] ALBUMIN 3.9 3.5 - 5.2 g/dL 07/31/2019 12:[address] [facility] BILIRUBIN TOTAL 0.3 0.3 - 1.2 mg/dL 07/31/2019 12:[address] [facility] ALKALINE PHOSPHATASE 78 40 - 129 U/L 07/31/2019 12:[address] [facility] AST 21 <41 U/L 07/31/2019 12:59 PM [facility] ALT 25 <42 U/L 07/31/2019 12:59 PM [facility] GFR >60 >=60 mL/min/1.7 3 sq meter 07/31/2019 12:[address] [facility] Comment: eGFR has not been validated for [...] mL/min/1.7 3 sq meter 07/31/2019 12:[address] [facility] ANION GAP 11 8 - 16 mmol/L 07/31/2019 12:59 PM [facility] Blood Venipuncture / Unknown 07/31/2019 11:33 AM CDT 07/31/2019 11:[address] [facility] - 07/31/2019 12:59 PM CDT Samples containing indocyanine green cause interferences on Total and/or Direct Bilirubin and must not be measured. Annette Whitney MD CHEMISTRY SHELBY PRITCHETT [facility] CLIA# [id number] [address] [facility] [place] [address] * (ABNORMAL) C-REACTIVE PROTEIN (07/31/2019 11:33 AM CDT) CRP 8.3(H) <5.0 mg/L 07/31/2019 12:59 PM CDT [facility] Blood Venipuncture / Unknown 07/31/2019 11:33 AM CDT 07/31/2019 11:50 AM CDT Annette Whitney MD CHEMISTRY SHELBY PRITCHETT [facility] [facility] CLIA# [id number] [address] [facility] [place] [address] * (ABNORMAL) CBC WITH DIFFERENTIAL (07/31/2019 11:33 AM CDT) Pathologist [facility] WBC 5.5 4.0 - 9.8 K/uL 07/31/2019 12:04 PM CDT [facility] RBC 6.03(H) 4.50 - 5.40 M/uL 07/31/2019 12:04 PM CDT [facility] HEMOGLOBIN 17.2(H) 13.6 - 16.5 g/dL 07/31/2019 12:04 PM CDT [facility] HEMATOCRIT 52.3(H) 40.0 - 48.0 % 07/31/2019 12:04 PM CDT [facility] MCV 86.7 82.0 - 99.0 fL 07/31/2019 12:04 PM CDT [facility] MCH 28.5 27.2 - 32.6 pg 07/31/2019 12:04 PM CDT [facility] MCHC 32.9 31.5 - 35.5 g/dL 07/31/2019 12:04 PM CDT [facility] RDW 12.7 11.5 - 14.5 % 07/31/2019 12:04 PM CDT [facility] RDW-STDEV 39.8 37.1 - 48.7 fL 07/31/2019 12:04 PM CDT [facility] PLATELETS 325 140 - 350 K/uL 07/31/2019 12:04 PM CDT [facility] MPV 9.7 9.3 - 12.4 fL 07/31/2019 12:04 PM CDT [facility] NEUTROPHILS 59 % 07/31/2019 12:04 PM CDT [facility] LYMPHOCYTES 22 % 07/31/2019 12:04 PM CDT [facility] MONOCYTES 13 % 07/31/2019 12:04 PM CDT [facility] EOSINOPHILS 5 % 07/31/2019 12:04 PM CDT [facility] BASOPHILS 1 % 07/31/2019 12:04 PM CDT [facility] IMMATURE GRANULOCYTES 0 % 07/31/2019 12:04 PM CDT [facility] NEUTROPHIL ABSOLUTE 3.21 1.90 - 7.00 K/uL 07/31/2019 12:04 PM CDT [facility] LYMPHOCYTE ABSOLUTE 1.21 0.70 - 4.50 K/uL 07/31/2019 12:04 PM CDT [facility] MONOCYTE ABSOLUTE 0.70 0.10 - 1.30 K/uL 07/31/2019 12:04 PM CDT [facility] EOSINOPHIL ABSOLUTE 0.29 0.00 - 0.70 K/uL 07/31/2019 12:04 PM CDT [facility] BASOPHILS ABSOLUTE 0.04 0.00 - 0.20 K/uL 07/31/2019 12:04 PM CDT [facility] IMMATURE GRANULOCYTES ABSOLUTE 0.02 0.00 - 0.03 K/uL 07/31/2019 12:04 PM CDT [facility] Blood Venipuncture / Unknown 07/31/2019 11:33 AM CDT 07/31/2019 11:50 AM CDT Annette Whitney MD HEMATOLOGY ORD ERABLES [facility] CLIA# [id number] [address] [place] [address] documented in this encounter Visit Diagnoses Diagnosis Ulcerative pancolitis with complication Pouchitis documented in this encounter Care Teams Toll Bridge Operator Relationship Specialty Start Date End Date Jasiel Freeman MD [address] [place] [phone] PCP - General Family Practice 08/15/17 documented as of this encounter
--- OUTSIDE RECORDS SUMMARY | 2024-10-24 05:31 | XMS_ITS | Encounter Summary ---
Author Organization [facility] Address [address] [place] [address] Care Team Providers Care Qual Field Manager Name Role Phone Jasiel Freeman MD Primary Care Provider Encounter Details Date Type Department Care Team (Late st Contact Info) Description 01/29/2019 Orders Only [facility] G[facility]enterology [facility] [address] [place] [address] Annette Whitney MD [address] [place] [address] Ulcerative proctitis without complication (Primary Dx); Vitamin D deficiency Social History Tobacco Use [...] AM CDT Office Visit 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
--- OUTSIDE RECORDS SUMMARY | 2024-10-24 05:31 | XMS_ITS | Encounter Summary ---
Author Organization [facility] Address 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 / male : 1970 Date: 01/29/2019 CSN: [id number] Referring Physician:No ref. provider found PCP: Jasiel Freeman MD Reason for Consult: Crohn's Disease and Establish Care History of Present Illness: Edgardo Elkins is a 48 y.o. male history of UC s/p colectomy with J-pouch in 2001. He has had problems with pouchitis, in the past he has tried Humira for his pouchitis without much benefit. Recently he has been on Entyvio and reports that he is doing well. He reports 4-6 BM per day, he says that immediately after his entyvio he will have multiple BM during the day (1-2 day) then he is back to normal. He reports that his next dose is due in 7 weeks. Denies blood in stool, no abdominal pain. He uses lomotil on occasion as needed when he has a lot going on. He does have some fistulas, no consistent pain with the fistulas, not interfering. 300 mg Q8 weeks Disease Ulcerative Colitis Phenotype/extent severe colitis and [...] ER visit or hospitalization 07/26/2012 Current Outpatient Prescriptions Medication Sig Dispense Refill ??? diphenoxylate-atropine (LOMOTIL) 2.5-0.025 mg tablet Take 1 Tablet by mouth 4 times daily as needed for Diarrhea/Loose Stools. 60 Tablet 1 ??? vedolizumab (ENTYVIO) 300 mg Recon Soln Inject 300 mg by intraveous injection see administration instructions Home MERCHANDISING CONSULTANT to administer over 30 minutes every 8 weeks.. 300 mg 3 ??? TESTOSTERONE, BULK, MISC 1 mL by Misc.(Non-Drug; Combo Route) route. ??? metroNIDAZOLE (FLAGYL) 500 mg tablet Take 1 Tablet (500 mg) by mouth 3 times daily. 30 Tablet 0 ??? [DISCONTINUED] diphenoxylate-atropine (LOMOTIL) 2.5-0.025 mg tablet Take 1 Tablet by mouth 4 times daily as needed for Diarrhea/Loose Stools. 60 Tablet 1 ??? metroNIDAZOLE (FLAGYL) 250 mg tablet Take 1 Tablet (250 mg) by mouth 3 times daily. 90 Tablet 0 No current facility-administered medications for this visit. [...] or abnormal bleeding Physical Exam: BP (!) 135/92 Pulse 89 Ht 5' 9 (1.753 m) Wt 85.8 kg (189 lb 3.2 oz) BMI 27.94 kg/m?? Physical Exam Constitutional: He is oriented to person, place, and time. He appears well- developed and well-nourished. HENT: Head: Normocephalic. Eyes: Pupils are equal, round, and reactive to light. Conjunctivae are normal. Right eye exhibits no discharge. Neck: Normal range of motion. Cardiovascular: Normal rate and regular rhythm. Pulmonary/Chest: Effort normal and breath sounds normal. Abdominal: Soft. Musculoskeletal: Normal range of motion. Neurological: He is alert and oriented to person, place, and time. Skin: He is not diaphoretic. Pertinent Labs: Lab Results Component Value Date/Time WBC 5.0 01/29/2019 09:34 AM HEMOGLOBIN 18.4 (H) 01/29/2019 09:34 AM HEMATOCRIT 56.8 (H) 01/29/2019 09:34 AM PLATELETS 303 01/29/2019 09:34 AM MCV 88.3 01/29/2019 09:34 AM Lab Results Component Value Date/Time SODIUM [...] he has not pursued any surgical evaluation. Since he does have symptoms sometimes prior to his infusion and also after his infusion I wonder whether his Entyvio is not adequately dosed. I would like to check an Entyvio level prior to his next infusion. If it is low then we will change his infusions to every 6 weeks. I also wonder whether some of his diarrhea after the Entyvio infusion is due to the saline load that he gets with infusion. I have suggested that he try Lomotil or fiber. 1. History of ulcerative colitis with J-pouch 2. Pouchitis 3. 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 Vitamin D deficiency - ergo Check Entyvio level decreased to every 6-week dosing if level is low Continue Entyvio Check vitamin B12, D, QuantiFERON gold, CBC, CMP, CRP Return in 6 months at that time we will set up surveillance endoscopy to look at the pouch and rectal cuff. ICD-10-CM ICD-9-CM 1. Ulcerative proctitis without complication K51.20 556.2 2. Pouchitis K91.850 569.71 Patient Instructions 1. Go have labs (entyvio level) done at [facility] before your next infusion (morning before or up to 5 days before) 2. Continue lomotil as needed 3. You could TRY taking some fiber powder at night around the time of your infusion. 4. See me in 6 months Orders Placed This Encounter ??? MISCELLANEOUS LAB TEST ??? diphenoxylate-atropine (LOMOTIL) 2.5-0.025 mg tablet Thank you very much for this consultation. Annette Whitney MD [facility] Digestive Diseases CC: No ref. provider found , Jasiel Freeman MD * Joaquina Prescott RN - 01/29/2019 9:40 AM CDT a. Biologic Y/N- Entyvio i. TB test date- ordered ii. Hep B date- 10/05/17 non-reactive b. Vaccinations: i. Influenza- need ii. PREVNAR/13- need iii. PNEUMOVAX/23- need iv. TDAP- need v. SHIGRIX- need vi. Hep A- need vii. Hep B- need documented in this encounter Miscellaneous Notes * Patient Instructions - Annette Whitney MD - 01/29/2019 10:19 AM CDT 1. Go have labs (entyvio level) done at [facility] before your next infusion (morning before or up to 5 days before) 2. Continue lomotil as needed 3. You could TRY taking some fiber powder at night around the time of your infusion. 4. See me in 6 months documented in this encounter Plan of Treatment Upcoming Encounters Date Type Department Care Team (Late st Contact Info) Description 02/13/2025 10:30 AM CDT Office Visit [facility] IBD and Gastroenterology Center [place] [address] [place] [phone] Kitty Dover ANP [address] [place] [address] Scheduled Orders Name Type Priority Associated Diagnoses Orde r Schedule MISCELLANEOUS LAB TEST Lab Routine Ulcerative proctitis without complication Pouchitis Ordered: 01/29/2019 documented as of this encounter Visit Diagnoses Diagnosis Ulcerative proctitis without complication- Primary Pouchitis documented in this encounter Care Teams Erosion Control Specialist Relationship Specialty Start Date End Date Jasiel Freeman MD [address] [place] [phone] PCP - General Family Practice 08/15/17 documented as of this encounter
--- OUTSIDE RECORDS SUMMARY | 2024-10-24 05:31 | XMS_ITS | Encounter Summary ---
Author Organization [facility] Address [address] [place] [address] Care Team Providers Care Bakery Worker Conveyor Line Name Role Phone Jasiel Freeman MD Primary Care Provider Reason for Visit * Reason Onset Date Comments Entyvio - refill 05/13/2019 Encounter Details Date Type Department Care Team (Late st Contact Info) Description 05/13/2019 Telephone [facility] [address] [address] Thanh Solares, PHARMACIST Entyvio - [...] Telephone Encounter - Thanh Solares, PHARMACIST - 05/13/2019 9:51 AM CDT Images from the original note were not included. [facility] [place] Edgardo Elkins 48 y.o. / male Patient's address on file: [address] [address] Home Phone Work Phone Home Infusion Order [...] (through 05/26/19) Per: Caren / KESHA Whitney [facility] Gastroenterology [address] [facility] [address] Generic substitution permitted Detailed Home Infusion Orders [...] RN will take any ordered labs to [facility] when possible. If labs are not taken to a [facility] lab, it is the responsibility of nursing to make sure labs are faxed to the pharmacy at [phone] Whitney. Catheter Care Catheter type: PIV placed by BRICK BAKER prior to each infusion Flush IV catheter [...] lab draws/line complications. ?? Flushes provided by [facility] pharmacy are for [...] Elkins (48 y.o. male) is active with [facility] services receiving Entyvio every 8 weeks at home for ulcerative colitis. ?? Edgardo is due for his next infusion this week. Pharmacist contacted BRICK BAKER to coordinate delivery. RN will milk pickup truck driver today. Patient received last infusion without issue. No questions or concerns at this time. Patient has appointment with Dr. Nair on 01/29. 05/13/19 - Spoke with the patient who stated he is doing well. He has had no changes in his medication therapy or no clinical issues. Will ship medications and supplies to the patient. Thanh Solares MBA, [facility] Timeline/Summary of Home Infusion Therapy: 11/15/17 - Start of Care / Entyvio week 0 11/29/17 - Week 2 12/28/17 - Week 6 02/21/18 - Begin maintenance dose every 8 weeks 11/26/18 - Approved x [address] Whitney Home Infusion Care Team IV Pharmacy: [facility] / [phone] Nursing Agency: [facility] Physician(s): Dr. Whitney Additional Relevant Data Insurance Information: Payor: AETNA / Plan: AETNA CHOICE POS II / Product Type: Commercial / Note: This is the primary coverage, but no account was found for this location or the patient's primary location. IV access PIV placed by BRICK BAKER prior to each infusion Ht Readings from [...] level: Not on file Occupational History Employer: [employer] Employer: [employer] Social Needs ??? Financial [...] file Gets together: Not on file Attends rastafarian service: Not on file Active member of [...] by intraveous injection see administration instructions Home BRICK BAKER to administer over 30 minutes every 8 [...] Provided to Patient ?? Pharmacist offer to certified alcohol counselor ?? RN instruction ?? Printed teaching sheets ?? Drug information paperwork - [facility] patient leaflet FADI Silverman [facility] [address], [address] [place] [address] documented in this encounter Plan of Treatment Upcoming Encounters Date Type Department Care Team (Late st Contact Info) Description 02/13/2025 10:30 AM CDT Office Visit [facility] IBD and Gastroenterology Center [place] [address] [place] [address] Kitty Dover ANP [address] [place] [address] documented as of this encounter Visit Diagnoses Not on filedocumented in this encounter Care Teams Bakery Worker Conveyor Line Relationship Specialty Start Date End Date Jasiel Freeman MD [address] [place] [phone] PCP - General Family Practice 08/15/17 documented as of this encounter
--- OUTSIDE RECORDS SUMMARY | 2024-10-24 05:31 | XMS_ITS | Encounter Summary ---
Author Organization [facility] Address [address] [place] [address] Care Team Providers Care Bandage Maker Name Role Phone Jasiel Freeman MD Primary Care Provider Encounter Details Date Type Department Care Team (Late Contact Info) Description 08/13/2019 Abstract [facility] Gastroenterology [facility] [address] [place] [address] Annette Whitney MD [address] [facility] [place] [phone] Social History Tobacco Use Types Packs/Day Years [...] Description 02/13/2025 10:30 AM CDT Office Visit [facility] IBD and Gastroenterology [place] [address] [facility] [address] [place] [address] Kitty Dover, ANP [address] [facility] [address] [place] [address] documented as of this encounter Visit Diagnoses Not on filedocumented in this encounter Care Teams Bandage Maker Relationship Specialty Start Date End Date Jasiel Freeman MD [address] [place] [phone] PCP - General Family Practice 08/15/17 documented as of this encounter
--- OUTSIDE RECORDS SUMMARY | 2024-10-24 05:31 | XMS_ITS | Encounter Summary ---
Author Organization [facility] Address [address] [place] [address] Care Team Providers Care Solder Cream Maker Name Role Phone Jasiel Freeman MD Primary Care Provider Encounter Details Date Type Department Care Team (Late st Contact Info) Description 08/16/2019 Abstract [facility] Gastroenterology [place] [address] [place] [address] Joaquina Prescott, RN Social History [...] 02/13/2025 10:30 AM CDT Office Visit [facility] IBD and Gastroenterology Center [place] [address] [place] [address] Kitty Dover, MIRTA [address] [place] [address] [place] [address] documented as of this encounter Visit Diagnoses Not on filedocumented in this encounter Care Teams Solder Cream Maker Relationship Specialty Start Date End Date Jasiel Freeman MD [address] [place] [address] PCP - General Family Practice 08/15/17 documented as of this encounter
--- OUTSIDE RECORDS SUMMARY | 2024-10-24 05:31 | XMS_ITS | Encounter Summary ---
Author Organization [facility] Address [address] [place] [address] Care Team Providers Care Data Warehousing Architect Name Role Phone Jasiel Freeman MD Primary Care Provider Encounter Details Date Type Department Care Team (Late Contact Info) Description 09/10/2019 Abstract [facility] Gastroenterology [facility] [address] [place] [address] Annette Whitney MD [address] [facility] [place] [phone] Social History Tobacco Use Types Packs/Day Years [...] [facility] IBD and Gastroenterology [place] [address] [facility] [address] [place] [address] Kitty Dover, ANP [address] [facility] [address] [place] [address] documented as of this encounter Visit Diagnoses Not on filedocumented in this encounter Care Teams Data Warehousing Architect Relationship Specialty Start Date End Date Jasiel Freeman MD [address] [place] [phone] PCP - General Family Practice 08/15/17 documented as of this encounter
--- OUTSIDE RECORDS SUMMARY | 2024-10-24 05:31 | XMS_ITS | Encounter Summary ---
Author Organization [facility] Address [address] [place] [address] Care Team Providers Care Adapted Physical Education Aide Name Role Phone Jasiel Freeman MD Primary Care Provider Encounter Details Date Type Department Care Team (Late st Contact Info) Description 02/07/2019 Chart Note [facility] Gastroenterology [facility] [address] [place] [address] Annette Whitney MD [address] [facility] [address] [place] [address] Social History Tobacco Use Types Packs/Day Years [...] as of this encounter Progress Notes * Ada Tan - 02/07/2019 8:50 AM CDT Faxed [facility] paperwork 01/29/19 to [phone] documented in this encounter Plan of Treatment Upcoming Encounters Date Type Department Care Team (Late st Contact Info) Description 02/13/2025 10:30 AM CDT Office Visit [facility] IBD and Gastroenterology Center [place] [address] [place] [address] Kitty Dover ANP [address] [place] [address] [place] [address] documented as of this encounter Visit Diagnoses Not on filedocumented in this encounter Care Teams Adapted Physical Education Aide Relationship Specialty Start Date End Date Jasiel Freeman MD [address] [place] [phone] PCP - General Family Practice 08/15/17 documented as of this encounter
--- OUTSIDE RECORDS SUMMARY | 2024-10-24 05:31 | XMS_ITS | Encounter Summary ---
Author Organization [facility] Address [address] [place] [address] Care Team Providers Care Field Handyman Name Role Phone Jasiel Freeman MD Primary Care Provider Encounter Details Date Type Department Care Team (Late st Contact Info) Description 08/08/2019 Specialty Pharmacy [facility] [place] [address] [place] [phone] Thanh Solares, PHARMACIST Social History Tobacco Use [...] Progress Notes * Thanh Solares, PHARMACIST - 08/08/2019 11:05 AM CDT Images from the original note were not included. [facility] [place] Edgardoisaiah Elkins 48 y.o. / male Patient's address on file: [address] [address] Home Phone Work Phone Home Infusion Order [...] (through 05/26/19) Per: Caren / KESHA Whitney [facility] Gastroenterology [address] [place] [address] Generic substitution permitted Detailed Home Infusion Orders [...] RN will take any ordered labs to [facility] when possible. If labs are not taken to a [facility] lab, it is the responsibility of nursing to make sure labs are faxed to the pharmacy at [phone] Whitney. Catheter Care Catheter type: PIV placed by NURSE OUTREACH CASE MANAGER prior to each infusion Flush IV catheter [...] lab draws/line complications. ?? Flushes provided by [facility] pharmacy are for use [...] Elkins (48 y.o. male) is active with [facility] services receiving Entyvio every 8 weeks at home for ulcerative colitis. ?? Edgardo is due for his next infusion this week. Pharmacist contacted NURSE OUTREACH CASE MANAGER to coordinate delivery. RN will pick up driver today. Patient received last infusion without [...] medications and supplies for the infusion. RDS Timeline/Summary of Home Infusion Therapy: 11/15/17 - Start of Care / Entyvio week 0 11/29/17 - Week 2 12/28/17 - Week 6 02/21/18 - Begin maintenance dose every 8 weeks 11/26/18 - Approved x [address] Whitney Home Infusion Care Team IV Pharmacy: [facility] / [phone] Nursing Agency: [facility] Physician(s): Dr. Whitney Additional Relevant Data Insurance Information: Payor: RX [employer] / Plan: RX [employer] ADVANCE PARADIGM / Product Type: RX [employer] / IV access PIV placed by NURSE OUTREACH CASE MANAGER prior to each infusion Ht Readings from [...] level: Not on file Occupational History Employer: [employer] Employer: [employer] Social Needs ??? Financial resource strain: Not on file ??? Food insecurity: Worry: Not on file Inability: Not on file ??? Transportation needs: Medical: Not on file Non-medical: Not on file Tobacco Use ??? Smoking status: Former Smoker Packs/day: 0.50 Years: 10.00 Pack years: 5.00 Types: Cigarettes Last attempt to quit: 06/09/2011 Years since quittin.1 ? ? Tobacco comment: off & on [...] file Gets together: Not on file Attends pentecostalism service: Not on file Active member of [...] Rfl: 0 ??? Cyanocobalamin (NASCOBAL) 500 mcg/spray Jenison, Non-Aerosol, 1 Jenison by See Admin Instructions route every 7 [...] by intraveous injection see administration instructions. Home NURSE OUTREACH CASE MANAGER to administer over 30 minutes every 8 weeks., Disp: 300 mg, Rfl: 3 ??? cefdinir (OMNICEF) 300 mg capsule, Take 1 Capsule (300 mg) by mouth every 12 hours for 14 days., Disp: 28 Capsule, Rfl: 0 ??? diphenoxylate-atropine (LOMOTIL) 2.5-0.025 mg [...] Provided to Patient ?? Pharmacist offer to delinquency counselor ?? RN instruction ?? Printed teaching sheets ?? Drug information paperwork - [facility] patient leaflet FADI Silverman [facility] [place] [address] [place] [address] documented in this encounter Plan of Treatment Upcoming Encounters Date Type Department Care Team (Late st Contact Info) Description 02/13/2025 10:30 AM CDT Office Visit [facility] IBD and Gastroenterology Center [place] [address] [facility] [address] [place] [address] Kitty Dover, MIRTA [address] [place] [address] documented as of this encounter Visit Diagnoses Not on filedocumented in this encounter Care Teams Field Handyman Relationship Specialty Start Date End Date Jasiel Freeman MD [address] [place] [phone] PCP - General Family Practice 08/15/17 documented as of this encounter
--- OUTSIDE RECORDS SUMMARY | 2024-10-24 05:31 | XMS_ITS | Encounter Summary ---
Author Organization [facility] Address [address] [place] [address] Care Team Providers Care Life Management Teacher Name Role Phone Jasiel Freeman MD Primary Care Provider Reason for Referral * Eval and Treat (Routine) - Closed Specialty Diagnoses / Procedures Referred By Contac t Referred To Contact Gastroenterology Diagnoses Ulcerative pancolitis with complication Pouchitis Annette Whitney MD 1 [facility] [place] [address] Joaquina Prescott RN Referral ID Status Reason Start Date Expiration Date V isits Requested Visits Authorized [id number] Closed CRS To Schedule (STL) 07/31/2019 07/31/2020 1 1 Encounter Details Date Type Department Care Team (Late st Contact Info) Description 07/31/2019 Orders Only [facility] Gastroenterology [place] [address] [place] [address] Annette Whitney MD [address] [facility] [place] [address] Ulcerative pancolitis with complication (Primary Dx); Pouchitis [...] [facility] IBD and Gastroenterology Center [place] [address] [place] [address] Kitty Dover ANP [address] [place] [address] [place] [phone] Scheduled Referrals Name Type Priority Associated Diagnoses Orde r Schedule AMB REFERRAL TO NURSE NAVIGATOR Outpatient Referral Routine Ulcerative pancolitis with complication Pouchitis Ordered: 07/31/2019 documented as of this encounter Visit Diagnoses Diagnosis Ulcerative pancolitis with complication- Primary Pouchitis documented in this encounter Care Teams Life Management Teacher Relationship Specialty Start Date End Date Jasiel Freeman MD [address] [place] [phone] PCP - General Family Practice 08/15/17 documented as of this encounter
--- OUTSIDE RECORDS SUMMARY | 2024-10-24 05:31 | XMS_ITS | Encounter Summary ---
Author Organization [facility] Care Team Providers Care Army Officer Name Role Phone Jasiel Freeman MD Primary Care Provider [phone] Encounter Details Date Type Department Care Team (Late st Contact Info) Description 05/15/2019 Home Visit [address], [address] [place] [address] Irina Wyatt RN Social History [...] Reading Time Taken Comments Blood Pressure 138/84 05/15/2019 10:25 AM CDT Pulse 88 05/15/2019 10:25 AM CDT Temperature 36.3 ??C (97.4 ??F) 05/15/2019 10:25 AM C DT Respiratory Rate - - Oxygen Saturation 95% 05/15/2019 10:25 AM CDT Inhaled Oxygen Concentration - - Weight - - Height - - Body Mass Index - - documented in this encounter Progress Notes * Irina Wyatt RN - 05/21/2019 12:18 PM CDT Images from the original note were not included. [facility] [address] [place] [address] Home Infusion NURSING follow up Leonidas Edgardo Palomino Brittni 1970 [address] [facility] [address] 05/15/19 Provider - Irina Wyatt RN Driving start 815 Driving end 915 Visit start 915 Visit end 1035 Mileage 36 Contact numbers provided including after hours numbers [...] by intraveous injection see administration instructions Home REVERSE UNIT OPERATOR FISHERMAN to administer over 30 minutes every 8 [...] observed with learning needs - No cultural, christian, or language barriers to learning Patient and [...] Temp Readings from Last 3 Encounters: 03/21/19 (!) 95.9 ??F (35.5 ??C) (Oral) 01/24/19 (!) 96.4 ??F (35.8 ??C) (Oral) BP Readings from Last 3 Encounters: 03/21/19 132/82 01/29/19 (!) 135/92 01/24/19 124/84 Pulse Readings from Last 3 Encounters: 03/21/19 76 01/29/19 89 01/24/19 80 Resp Readings from Last 3 Encounters: 03/21/19 16 01/24/19 16 11/29/18 16 1. assisted assessment and implementation of infusion therapy. Teaching [...] reactions. Patient knows how to reorder medications. [facility] will dispense [...] [facility] [place] [address] [place] [address] Kitty Dover ANP [address] [place] [address] documented as of this encounter Visit Diagnoses Not on filedocumented in this encounter Care Teams Army Officer Relationship Specialty Start Date End Date Jasiel Freeman MD [address] [place] [address] PCP - General Family Practice 08/15/17 documented as of this encounter
--- OUTSIDE RECORDS SUMMARY | 2024-10-24 05:31 | XMS_ITS | Encounter Summary ---
Author Organization [facility] Address [address] [place] [address] Care Team Providers Care Compression Molding Machine Setter Name Role Phone Jasiel Freeman MD Primary Care Provider [phone] Encounter Details Date Type Department Care Team (Late st Contact Info) Description 08/01/2019 Abstract [facility] [place] A [address] [place] [address] Joaquina Prescott, RN Social History [...] [facility] [place] [address] [place] [address] Kitty Dover, MIRTA [address] [place] [address] [place] [address] documented as of this encounter Visit Diagnoses Not on filedocumented in this encounter Care Teams Compression Molding Machine Setter Relationship Specialty Start Date End Date Jasiel Freeman MD [address] [place] [address] PCP - General Family Practice 08/15/17 documented as of this encounter
--- OUTSIDE RECORDS SUMMARY | 2024-10-24 05:31 | XMS_ITS | Encounter Summary ---
Author Organization [facility] Address [address] [place] [address] Care Team Providers Care Quality Assurance Calibrator Name Role Phone Jasiel Freeman MD Primary Care Provider [phone] Encounter Details Date Type Department Care Team (Late Contact Info) Description 08/08/2019 Abstract [facility] Gastroenterology [facility] [address] [place] [address] Joaquina Prescott, RN Social History [...] [facility]ology [facility] [address] [place] [address] Kitty Dover, MIRTA [address] [facility] [address] [place] [address] documented as of this encounter Visit Diagnoses Not on filedocumented in this encounter Care Teams Quality Assurance Calibrator Relationship Specialty Start Date End Date Jasiel Freeman MD 5 [place] [address] PCP - General Family Practice 08/15/17 documented as of this encounter
--- OUTSIDE RECORDS SUMMARY | 2024-10-24 05:31 | XMS_ITS | Encounter Summary ---
Author Organization [facility] Address [address] [place] [address] Care Team Providers Care Manager Fine Name Role Phone Jasiel Freeman MD Primary Care Provider Reason for Visit * Reason Onset Date Comments clarification 11/18/2019 Encounter Details Date Type Department Care Team (Late st Contact Info) Description 11/18/2019 Telephone [facility] Gastroenterology [facility] [address] [place] [address] Annette Whitney MD [address] [facility] [address] [place] [address] clarification Social History Tobacco Use Types Packs/Day Years [...] Telephone Encounter - Ada Tan - 11/18/2019 8:17 AM CST Pharmacy needs clarification on says take one capsule by mouth every two weeks for eight weeks then every other week which is the same RMATION CONSULTANT documented in this encounter Plan of Treatment Upcoming Encounters Date Type Department Care Team (Late st Contact Info) Description 02/13/2025 10:30 AM CDT Office Visit [facility] [place] [address] [place] [address] Kitty Dover, MIRTA [address] [place] [address] [place] [address] documented as of this encounter Visit Diagnoses Not on filedocumented in this encounter Care Teams Manager Fine Relationship Specialty Start Date End Date Jasiel Freeman MD [address] [place] [phone] PCP - General Family Practice 08/15/17 documented as of this encounter
--- OUTSIDE RECORDS SUMMARY | 2024-10-24 05:31 | XMS_ITS | Encounter Summary ---
Author Organization [facility] Address [address] [place] [address] Care Team Providers Care Cloth Examiner Hand Name Role Phone Jasiel Freeman MD Primary Care Provider Encounter Details Date Type Department Care Team (Latest Contact Info) Description 01/29/2019 9:30 AM CDT - 01/29/2019 11:59 PM CDT Hospital Encounter [facility] Laboratory Services [facility] [place] A [address] [place] [address] Annette Whitney MD [address] [facility] [address] DIV IM GASTROENTEROLOGY [place] [address] Discharge Disposition: Home or Self Care Social [...] 1 mL by Misc.(Non-Drug; Combo Route) route. diphenoxylate-atropi ne (LOMOTIL) 2.5-0.025 mg tablet Take 1 Tablet by mouth 4 times daily as needed for Diarrhea/Loose Stools. 60 Tablet 1 01/29/2019 11/13/2019 ergocalciferol (VITAMIN D2) 50,000 unit capsule Take 1 Capsule (50,000 Units) by mouth every 7 days For 12 weeks then once every other week.. 8 Capsule 2 01/29/2019 08/01/2019 vedolizumab (ENTYVIO) 300 mg Recon Soln Inject 300 mg by intraveous injection see administration instructions Home LACER AND TIER to administer over 30 minutes every 8 weeks.. 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 CBC WITH DIFFERENTIAL Routine 01/29/2019 9:34 AM CDT 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 tuberculosis antigens was detected. Infection with M. tuberculosis is unlikely. A single negative result does not exclude infection with M. tuberculosis. In patients at high risk for M.tuberculosis infection, a second test should be considered in accordance with the 2017 ATS/IDSA/CDC Clinical Practice Guidelines for Diagnosis of Tuberculosis in Adults and Children [Lewinsohvivian DM et. al. Clin. Infect. Dis. 2017;64(2):111-115]. The reference range for the 'TB1 Ag minus Nil Result' and 'TB2 Ag minus Nil Result' is an Interferon-gamma level <0.35 IU/mL. TB1 AG - NIL 0.00 IU/mL 02/01/2019 12:01 PM CDT [facility] TB2 AG - NIL 0.00 IU/mL 02/01/2019 12:01 PM CDT [facility] MITOGEN-NIL 8.92 IU/mL 02/01/2019 12:01 PM CDT [facility] NIL 0.01 IU/mL 02/01/2019 12:01 PM CDT [facility] Comment: Test Performed by: [address] [address] Blood Venipuncture / Unknown 01/29/2019 9:34 AM CDT 01/29/2019 9:54 AM CDT Annette Whitney MD CHEMISTRY SHELBY PRITCHETT [facility] * C-REACTIVE PROTEIN (01/29/2019 9:34 AM CDT) Pathologist [facility] CRP 3.7 <5.0 mg/L 01/29/2019 10:45 AM CDT [facility] [facility] LABORATORY SERVICES - [facility] Blood Venipuncture / Unknown 01/29/2019 9:34 AM CDT 01/29/2019 9:54 AM CDT Annette Whitney MD CHEMISTRY SHELBY PRITCHETT [facility] [facility] CLIA# [id number] [address] [facility] [place] [address] * (ABNORMAL) COMPREHENSIVE METABOLIC PANEL (01/29/2019 9:34 AM CDT) SODIUM 141 136 - 145 mmol/L 01/29/2019 10:45 AM [facility] - [facility] POTASSIUM 4.2 3.5 - 5.0 mmol/L 01/29/2019 10:45 AM [facility] - [facility] CHLORIDE 105 98 - 107 mmol/L 01/29/2019 10:45 AM [facility] CO2 25 22 - 29 mmol/L 01/29/2019 10:45 AM [facility] - [facility] CALCIUM 9.4 8.6 - 10.2 mg/dL 01/29/2019 10:45 AM [facility] BUN 12 6 - 20 mg/dL 01/29/2019 10:45 AM [facility] CREATININE 1.24(H) 0.67 - 1.17 mg/dL 01/29/2019 10:45 AM [facility] GLUCOSE 111(H) 74 - 99 mg/dL 01/29/2019 10:45 AM [facility] TOTAL PROTEIN 7.4 6.7 - 8.6 g/dL 01/29/2019 10:45 AM [facility] ALBUMIN 3.9 3.5 - 5.2 g/dL 01/29/2019 10:45 AM [facility] BILIRUBIN TOTAL 0.4 0.3 - 1.2 mg/dL 01/29/2019 10:45 AM [facility] ALKALINE PHOSPHATASE 74 40 - 129 U/L 01/29/2019 10:45 AM [facility] AST 23 <41 U/L 01/29/2019 10:45 AM [facility] ALT 24 <42 U/L 01/29/2019 10:45 AM [facility] GFR >60 >=60 mL/min/1.7 3 sq meter 01/29/2019 10:45 AM [facility] Comment: eGFR has not been validated for [...] GFR, >60 >=60 mL/min/1.7 3 sq meter 01/29/2019 10:45 AM [facility] ANION GAP 11 8 - 16 mmol/L 01/29/2019 10:45 AM [facility] Blood Venipuncture / Unknown 01/29/2019 9:34 AM CDT 01/29/2019 9:54 AM CDT Narrative [facility] - 01/29/2019 10:45 AM CDT Samples containing indocyanine green cause interferences on Total and/or Direct Bilirubin and must not be measured. Annette Whitney MD CHEMISTRY SHELBY PRITCHETT [facility] [facility] [id number] 5 [facility] [place] [address] * (ABNORMAL) CBC WITH DIFFERENTIAL (01/29/2019 9:34 AM CDT) WBC 5.0 4.0 - 9.8 K/uL 01/29/2019 10:10 AM [facility] LABORATORY SERVICES - [facility] RBC 6.43(H) 4.50 - 5.40 M/uL 01/29/2019 10:10 AM [facility] LABORATORY SERVICES - [facility] HEMOGLOBIN 18.4(H) 13.6 - 16.5 g/dL 01/29/2019 10:10 AM [facility] LABORATORY SERVICES - [facility] HEMATOCRIT 56.8(H) 40.0 - 48.0 % 01/29/2019 10:10 AM [facility] LABORATORY SERVICES - [facility] MCV 88.3 82.0 - 99.0 fL 01/29/2019 10:10 AM [facility] LABORATORY SERVICES - [facility] MCH 28.6 27.2 - 32.6 pg 01/29/2019 10:10 AM [facility] LABORATORY SERVICES - [facility] MCHC 32.4 31.5 - 35.5 g/dL 01/29/2019 10:10 AM [facility] LABORATORY SERVICES - [facility] RDW 14.2 11.5 - 14.5 % 01/29/2019 10:10 AM [facility] LAB[facility]ATORY SERVICES - [facility] RDW-STDEV 44.8 37.1 - 48.7 fL 01/29/2019 10:10 AM [facility]ATORY SERVICES - [facility] PLATELETS 303 140 - 350 K/uL 01/29/2019 10:10 AM [facility]ATORY SERVICES - [facility] MPV 9.8 9.3 - 12.4 fL 01/29/2019 10:10 AM [facility] SERVICES - [facility] NEUTROPHILS 64 % 01/29/2019 10:10 AM [facility]ATORY SERVICES - . [place] LYMPHOCYTES 22 % 01/29/2019 10:10 AM [facility]ORY SERVICES - . [place] MONOCYTES 10 % 01/29/2019 10:10 AM [facility]ATORY SERVICES - . [place] EOSINOPHILS 3 % 01/29/2019 10:10 AM [facility]ATORY SERVICES - . [place] BASOPHILS 1 % 01/29/2019 10:10 AM [facility] LABORATORY SERVICES - . [facility] IMMATURE GRANULOCYTES 0 % 01/29/2019 10:10 AM [facility]ATORY SERVICES - [facility] NEUTROPHIL ABSOLUTE 3.24 1.90 - 7.00 K/uL 01/29/2019 10:10 AM [facility] LAB[facility]ATORY SERVICES - [facility] LYMPHOCYTE ABSOLUTE 1.11 0.70 - 4.50 K/uL 01/29/2019 10:10 AM CDT [facility] LAB[facility]ATORY SERVICES [facility] MONOCYTE ABSOLUTE 0.49 0.10 - 1.30 K/uL 01/29/2019 10:10 AM CDT [facility] LABORATORY SERVICES - . [facility] EOSINOPHIL ABSOLUTE 0.13 0.00 - 0.70 K/uL 01/29/2019 10:10 AM CDT [facility] LABORATORY SERVICES - . [facility] BASOPHILS ABSOLUTE 0.04 0.00 - 0.20 K/uL 01/29/2019 10:10 AM CDT [facility] LABORATORY SERVICES - [facility] IMMATURE GRANULOCYTES ABSOLUTE 0.02 0.00 - 0.03 K/uL 01/29/2019 10:10 AM CDT [facility] LABORATORY [facility] Blood Venipuncture / Unknown 01/29/2019 9:34 AM CDT 01/29/2019 9:54 AM CDT Annette Whitney MD HEMATOLOGY ORD MAYELABLES Performing Organization Address City/[facility]/ZIP Co de Phone Number [facility]# [id number] 5 [place] [address] * (ABNORMAL) VITAMIN D 25 HYDROXY (01/29/2019 9:34 AM CDT) [facility] VITAMIN D TOTAL (25OH) 16(L) 30 - 100 ng/mL 01/29/2019 10:55 AM CDT [facility] [employer] Blood Venipuncture / Unknown 01/29/2019 9:34 AM CDT 01/29/2019 9:54 AM CDT Narrative [facility] LABORATORY [facility] - 01/29/2019 10:55 AM CDT Interpretive Data Chart: Deficient: 0 - 20 ng/mL Insufficient: 21 - 29 ng/mL Sufficient: 30 - 100 ng/mL Increased Risk of Hypercalciuria: >100 ng/mL Toxic: >150 ng/mL Annette Whitney MD CHEMISTRY ORDToño PRITCHETT [facility] LABORATORY SERVICES [facility]# [id number] [address] [place] [address] documented in this encounter Visit Diagnoses Diagnosis 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
--- OUTSIDE RECORDS SUMMARY | 2024-10-24 05:31 | XMS_ITS | Encounter Summary ---
Author Organization [facility] Address [address] [place] [address] Care Team Providers Care Traffic Technician Name Role Phone Jasiel Freeman MD Primary Care Provider [phone] Encounter Details Date Type Department Care Team (Late Contact Info) Description 08/05/2019 Orders Only [facility] Gastro[facility] [address] [place] [address] Annette Whitney MD 1 [facility] [place] [id number] Social History Tobacco Use Types Packs/Day Years [...] Description 02/13/2025 10:30 AM CDT Office Visit [facility] and Gastroenterology [place] [address] [facility] [address] [place] [address] Kitty Dover, ANP [address] [place] [address] documented as of this encounter Visit Diagnoses Not on filedocumented in this encounter Care Teams Traffic Technician Relationship Specialty Start Date End Date Jasiel Freeman MD [address] [place] [phone] PCP - General Family Practice 08/15/17 documented as of this encounter
--- OUTSIDE RECORDS SUMMARY | 2024-10-24 05:31 | XMS_ITS | Encounter Summary ---
Author Organization [facility] Address [address] [place] [address] Care Team Providers Care Endless Bed Drum Sander Name Role Phone Jasiel Freeman MD Primary Care Provider Encounter Details Date Type Department Care Team (Late st Contact Info) Description 09/17/2019 Specialty Pharmacy [facility] [place] [address] [place] [phone] Thanh Solares, PHARMACIST Social History Tobacco Use [...] Progress Notes * Thanh Solares, PHARMACIST - 09/17/2019 2:35 PM CST Images from the original note were not included. [facility] Specialty & Infusion - [place] Edgardo Georgette Elkins 48 y.o. / male Patient's address on file: [address] [address] Home Phone Work Phone Home Infusion Order [...] (through 05/26/19) Per: Caren / KESHA Whitney [facility] Gastroenterology [address] [facility] [address] Generic substitution permitted Detailed Home Infusion Orders [...] RN will take any ordered labs to [facility] when possible. If labs are not taken to a [facility] lab, it is the responsibility of nursing to make sure labs are faxed to the pharmacy at [phone] Whitney. Catheter Care Catheter type: PIV placed by FUNERAL HOME MANAGER prior to each infusion Flush IV [...] lab draws/line complications. ?? Flushes provided by [facility] Specialty and Infusion pharmacy are [...] Elkins (48 y.o. male) is active with [facility] Specialty and Infusion services receiving Entyvio every 8 weeks at home for ulcerative colitis. ?? Edgardo is due for his next infusion this week. Pharmacist contacted FUNERAL HOME MANAGER to coordinate delivery. RN will pickling solution maker today. Patient received last infusion without issue. No questions or concerns at this time. Patient has appointment with Dr. Nair on 01/29. 05/13/19 - Spoke with the patient who stated he is doing well. He has had no changes in his medication therapy or no clinical issues. Will ship medications and supplies to the patient. Thanh Solares MBA, [facility] 08/08/19 - Patient to receive infusion of Entyvio today after an insurance issue. Will send medications and supplies for the infusion. JEANNA 08/19/19 - Confirmed with the nurse case liner that the patient was scheduled to receive [...] changes in medication or clinical condition. RDS Timeline/Summary of Home Infusion Therapy: 11/15/17 - Start of Care / Entyvio week 0 11/29/17 - Week 2 12/28/17 - Week 6 02/21/18 - Begin maintenance dose every 8 weeks 11/26/18 - Approved x [address] Whitney Home Infusion Care Team IV Pharmacy: [facility] [address] / [phone] Nursing Agency: [facility] Physician(s): Dr. Whitney Additional Relevant Data Insurance Information: Payor: RX [facility] / Plan: RX [employer] ADVANCE PARADIGM / Product Type: RX [employer] / IV access PIV placed by FUNERAL HOME MANAGER prior to each infusion Ht Readings [...] level: Not on file Occupational History Employer: [employer] Employer: [employer] Social Needs ??? Financial [...] file Gets together: Not on file Attends hinduism service: Not on file Active member of [...] Rfl: 0 ??? Cyanocobalamin (NASCOBAL) 500 mcg/spray [place], Non-Aerosol, 1 [place] by See Admin Instructions route every 7 [...] by intraveous injection see administration instructions. Home FUNERAL HOME MANAGER to administer over 30 minutes every [...] Patient ?? Pharmacist offer to middle school counselor ?? RN instruction ?? Printed teaching sheets ?? Drug information paperwork - EH patient leaflet FADI Silverman [facility] Specialty & Infusion - [place] [address] [place] [address] MOBILE BODY REPAIR SUPERVISOR documented in this encounter Plan of Treatment Upcoming Encounters Date Type Department Care Team (Late st Contact Info) Description 02/13/2025 10:30 AM CDT Office Visit [facility] IBD and Gastroenterology Center [place] [address] [facility] [address] [place] [address] Kitty Dover, MIRTA [address] [place] [address] [facility] [address] [place] [address] documented as of this encounter Visit Diagnoses Not on filedocumented in this encounter Care Teams Endless Bed Drum Sander Relationship Specialty Start Date End Date Jasiel Freeman MD [address] [place] [phone] PCP - General Family Practice 08/15/17 documented as of this encounter
--- OUTSIDE RECORDS SUMMARY | 2024-10-24 05:31 | XMS_ITS | Encounter Summary ---
Author Organization [facility] Address [address] [place] [address] Care Team Providers Care Organic Preparation Analyst Name Role Phone Jasiel Freeman MD Primary Care Provider [phone] Encounter Details Date Type Department Care Team (Late Contact Info) Description 09/10/2019 Abstract [facility] Gastroenterology [facility] [address] [facility] [address] [place] [address] Annette Whitney MD 1 [facility] [place] [phone] Social History Tobacco Use Types Packs/Day Years [...] Visit [facility] IBD and Gastroenterology [place] [id number] [facility] [address] [place] [address] Kitty Dovre, ANP [address] [facility] 100 [place] [address] documented as of this encounter Visit Diagnoses Not on filedocumented in this encounter Care Teams Organic Preparation Analyst Relationship Specialty Start Date End Date Jasiel Freeman MD [address] [place] [phone] PCP - General Family Practice 08/15/17 documented as of this encounter
--- OUTSIDE RECORDS SUMMARY | 2024-10-24 05:31 | XMS_ITS | Encounter Summary ---
Author Organization [facility] Address [address] [place] [address] Care Team Providers Care Corporate Job Titles Name Role Phone Jasiel Freeman MD Primary Care Provider Encounter Details Date Type Department Care Team (Late Contact Info) Description 07/31/2019 Abstract [facility] Gastroenterology [facility] [address] [facility] [address] [place] [address] Annette Whitney MD 1 [facility] [place] [phone] Social History Tobacco Use Types Packs/Day Years [...] Description 02/13/2025 10:30 AM CDT Office Visit [facility] IBD and Gastroenterology [place] [address] [facility] [address] [place] [address] Kitty Dover, ANP [address] [facility] 100 [place] [address] documented as of this encounter Visit Diagnoses Not on filedocumented in this encounter Care Teams Corporate Job Titles Relationship Specialty Start Date End Date Jasiel Freeman MD [address] [place] [phone] PCP - General Family Practice 08/15/17 documented as of this encounter
--- OUTSIDE RECORDS SUMMARY | 2024-10-24 05:31 | XMS_ITS | Encounter Summary ---
Author Organization [facility] Address [address] [place] [address] Care Team Providers Care Chuck Wagon Cook Name Role Phone Jasiel Freeman MD Primary Care Provider Reason for Visit * Reason Onset Date Comments Information 08/09/2019 Encounter Details Date Type Department Care Team (Late st Contact Info) Description 08/09/2019 Telephone [facility] Gastroenterology [facility] [address] [facility] [address] [place] [address] Annette Whitney MD [address] [facility] [address] [place] [address] Information Social History Tobacco Use Types Packs/Day Years [...] Telephone Encounter - Joaquina Prescott RN - 08/09/2019 12:37 PM CDT Edgardo wanted to confirm that he is to re-induce the Entyvio due to his symptoms. I advised that I have faxed the correct info to both [facility] and [facility] 08/08. His RN indicated that her orders showed induction and not maintenance dosing. Also, Edgardo was curious of the nasal medication he had been called about. Advised that Dr. Nair had been trying to get a nasal B12, as he [place] far and it would be more convenient to have the nasal form versus the IM injections. 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 He verbalized understanding and expressed appreciation for all of our help in getting the infusions. documented in this encounter Plan of Treatment Upcoming Encounters Date Type Department Care Team (Late st Contact Info) Description 02/13/2025 10:30 AM CDT Office Visit [facility] IBD and Gastroenterology [place] [address] [facility] 180 [place] [phone] Kitty Dover, MIRTA [address] [place] [address] [place] [phone] documented as of this encounter Visit Diagnoses Not on filedocumented in this encounter Care Teams Chuck Wagon Cook Relationship Specialty Start Date End Date Jasiel Freeman MD [address] [place] [phone] PCP - General Family Practice 08/15/17 documented as of this encounter
--- OUTSIDE RECORDS SUMMARY | 2024-10-24 05:31 | XMS_ITS | Encounter Summary ---
Author Organization [facility] Address [address] [place] [address] Care Team Providers Care Crop And Soil Technician Name Role Phone Jasiel Freeman MD Primary Care Provider Encounter Details Date Type Department Care Team (Late st Contact Info) Description 07/31/2019 Orders Only [facility] Admitting [address] [place] [address] Annette Whitney MD [address] [facility] [address] DIV [place] [address] Social History Tobacco Use Types Packs/Day Years [...] 10:30 AM CDT Office Visit [facility] IBD and Gastroenterology [place] [address] [facility] [address] [place] [address] Kitty Dover, ANP [address] [facility] 100 [place] [address] documented as of this encounter Visit Diagnoses Not on filedocumented in this encounter Care Teams Crop And Soil Technician Relationship Specialty Start Date End Date Jasiel Freeman MD [address] [place] [phone] PCP - General Family Practice 08/15/17 documented as of this encounter
--- OUTSIDE RECORDS SUMMARY | 2024-10-24 05:31 | XMS_ITS | Encounter Summary ---
Author Organization [facility] Address [address] [place] [address] Care Team Providers Care Supervisory Lifeguard Name Role Phone Jasiel Freeman MD Primary Care Provider Encounter Details Date Type Department Care Team (Late st Contact Info) Description 07/18/2019 Chart Note [facility] Gastroenterology [facility] [address] [facility] [address] [place] [address] Annette Whitney MD 1 [facility] [address] [place] [address] Social History Tobacco Use Types Packs/Day Years [...] encounter Progress Notes * Ada Tan - 07/18/2019 9:05 AM CDT Called Ana @[facility] [phone] she is working on PA she has everything she needs from us. She will check on PA today and put hodge so pt can get scheduled. They will contact pt to schedule and if anything is needed she will contact me. documented in this encounter Plan of Treatment Upcoming Encounters Date Type Department Care Team (Late st Contact Info) Description 02/13/2025 10:30 AM CDT Office Visit [facility] IBD and Gastroenterology [place] [address] [place] [address] Kitty Dover ANP [address] [place] [address] [place] [address] documented as of this encounter Visit Diagnoses Not on filedocumented in this encounter Care Teams Supervisory Lifeguard Relationship Specialty Start Date End Date Jasiel Freeman MD [address] [place] [phone] PCP - General Family Practice 08/15/17 documented as of this encounter
--- OUTSIDE RECORDS SUMMARY | 2024-10-24 05:31 | XMS_ITS | Encounter Summary ---
Author Organization [facility] Address [address] [place] [address] Care Team Providers Care Building Mechanic Name Role Phone Jasiel Freeman MD Primary Care Provider Reason for Visit * Reason Onset Date Comments Infuison problem 07/31/2019 Encounter Details Date Type Department Care Team (Late st Contact Info) Description 07/31/2019 Telephone [facility] Gastroenterology [facility] [address] [facility] [address] [place] [address] Annette Whitney MD 1 [facility] [address] [place] [address] Infuison problem Social History Tobacco Use Types Packs/Day Years [...] Telephone Encounter - Ada Tan - 07/31/2019 1:52 PM CDT Pt was in office today for F/U.he is now three weeks past due for Infusion. Ebony made phone calls to [employer] and [facility] specialty pharm.. After long conversations Sujata (supv) at [facility] [phone] says they are resp for drug and infusion. She faxed forms for Dr Nair to sign (under media) faxed back with today's office notes to [phone]. They are [facility] to approve an outside company for home infusion nurse since pt doesn't want to have done at [facility] in [facility]. they have [employer] working on this and have faxed all info to them for urgent review. documented in this encounter Plan of Treatment Upcoming Encounters Date Type Department Care Team (Late st Contact Info) Description 02/13/2025 10:30 AM CDT Office Visit [facility] IBD and Gastroenterology [place] [address] [place] [address] Kitty Dover, ANP [address] [place] [address] [place] [address] documented as of this encounter Visit Diagnoses Not on filedocumented in this encounter Care Teams Building Mechanic Relationship Specialty Start Date End Date Jasiel Freeman MD [address] [place] [phone] PCP - General Family Practice 08/15/17 documented as of this encounter
--- OUTSIDE RECORDS SUMMARY | 2024-10-24 05:32 | XMS_ITS | Encounter Summary ---
Author Organization [facility] Address [address] [place] [address] Care Team Providers Care Remote Sensing Technologist Name Role Phone Jasiel Freeman MD Primary Care Provider [phone] Reason for Visit * Reason Onset Date Comments Marielena denerin 10/30/2017 Entyvio 10/30/2017 Encounter Details Date Type Department Care Team (Late st Contact Info) Description 10/30/2017 Telephone [facility] Gastroenterology [place] A [address] [facility] [address] [place] [address] Lane Ryan MD NO ADDRESS ON FILE Steascenc[employer] rainesial; Entyvio Social History Tobacco Use Types Packs/Day Years [...] encounter Miscellaneous Notes * Telephone Encounter - Kadie Nye Ifeoma - 11/09/2017 12:[address] Ryan spoke patient and wants him on Entyvio. I have placed orders. ODONTIC BAND MAKER * Telephone Encounter - Kadie Nye - 10/31/2017 12:26 PM CST Left message for physician to call Dr. Ryan's cell. ODONTIC BAND MAKER * Telephone Encounter - Kadie Nye - 10/30/2017 10:51 AM CST Liyah has been denied. You could do peer to peer with Dr. Nathan Mclaughlin at [phone] or [phone]. Sorry, correct numbers are [phone] or [phone]. ODONTIC BAND MAKER documented in this encounter Plan of Treatment Upcoming Encounters Date Type Department Care Team (Late st Contact Info) Description 02/13/2025 10:30 AM CDT Office Visit [facility] IBD and Gastroenterology [place] [address] [place] [address] Kitty Dover ANP [address] [place] [address] [place] [address] documented as of this encounter Visit Diagnoses Not on filedocumented in this encounter Care Teams Remote Sensing Technologist Relationship Specialty Start Date End Date Jasiel Freeman MD [address] [place] [phone] PCP - General Family Practice 08/15/17 documented as of this encounter
--- OUTSIDE RECORDS SUMMARY | 2024-10-24 05:32 | XMS_ITS | Encounter Summary ---
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 Pharmaceutical Care Plan Demographics Edgardo Elkins 47 y.o. / male Patient's address on file: [address] [place] [address] Patient's current location: Same as above Patient Contact Information: Home Phone Work Phone Insurance Information: [employer] Choice [employer] II Home Infusion Care Team IV Pharmacy: [facility] / [phone] Nursing: [facility] Physician(s): Dr. Lane Ryan IV access PIV placed by RN prior to each infusion Progress Note Patient admitted to MHIT services upon referral from physician. Patient to receive Entyvio at home every 8 weeks for ulcerative colitis. Patient received week 0 infusion at infusion center on 11/15. Week 2 infusion received at infusion center on 11/29. Week 6 infusion will be done in the home on 12/28, and will continue home infusions every 8 weeks per MD orders. Additional Relevant Information Actual Body Weight: 87.5 kg (192 lbs) Patient weight not recorded Allergies Allergen Reactions ??? Remicade [Infliximab] Rash Patient Active Problem List Diagnosis Code ??? Hyponatremia E87.1 ??? Abdominal pain R10.9 ??? Ulcerative colitis K51.90 ??? Pouchitis K91.850 ??? Acute bronchitis J20.9 ??? SIRS (systemic inflammatory response syndrome) R65.10 ??? Metabolic acidosis E87.2 ??? Sepsis(995.91) A41.9 ??? JORGE (acute kidney injury) N17.9 ??? Protein calorie malnutrition E46 ??? Malnutrition E46 ??? Abdominal pain R10.9 ??? Inflammatory bowel disease K52.9 Current Outpatient Prescriptions: ??? vedolizumab (ENTYVIO) 300 mg Recon Soln, Inject 300 mg by intraveous injection see administration instructions Home NURSES' REGISTRY DIRECTOR to administer over 30 minutes every 8 weeks.., Disp: 300 mg, Rfl: 6 ??? diphenoxylate-atropine (LOMOTIL) 2.5-0.025 mg tablet, Take 1 Tablet by mouth 4 times daily as needed for Diarrhea/Loose Stools., Disp: 60 Tablet, Rfl: 1 ??? metroNIDAZOLE (FLAGYL) 250 mg tablet, Take 1 Tablet (250 mg) by mouth 3 times daily., Disp: 90 Tablet, Rfl: 0 ??? TESTOSTERONE, BULK, MISC, 1 mL by Misc.(Non-Drug; Combo Route) route., Disp: , Rfl: ??? HUMIRA 40 mg/0.8 mL Syringe Kit, INJECT 1 SYRINGE (40MG) SUBCUTANEOUSLY WEEKLY -REFRIGERATE DO NOT FREEZE, Disp: 12 Kit, Rfl: 1 ??? adalimumab (HUMIRA) 40 mg/0.8 mL Syringe Kit, Inject 0.8 mL (40 mg) by subcutaneous injection see administration instructions Provide pens., Disp: 2 Each, Rfl: 6 ??? adalimumab (HUMIRA) 40 mg/0.8 mL Kit, Inject 0.8 mL by subcutaneous injection see administration instructions., Disp: 2 Each, Rfl: 6 Social History Social History ??? Marital status: Spouse name: N/A ??? Number of children: N/A ??? Years of education: N/A Occupational History ??? [employer] ??? [employer] Social History Main Topics ??? Smoking status: Former Smoker Packs/day: 0.50 Years: 10.00 Types: Cigarettes Quit date: 06/09/2011 ??? Smokeless tobacco: Not on file Comment: off & on ??? Alcohol use Yes Comment: rarely ??? Drug use: No ??? Sexual activity: Not on file Other Topics Concern ??? Not on file Social History Narrative ??? No narrative on file Lab Review BMP result (most recent): Lab Results Component Value Date/Time GLUCOSE 80 10/05/2017 10:19 AM GLUCOSE 88 07/26/2012 09:35 AM GLUCOSE 98 06/27/2012 05:50 AM BUN 14 10/05/2017 10:19 AM BUN 10 07/26/2012 09:35 AM BUN 8 06/27/2012 05:50 AM CREAT 1.49 (H) 10/05/2017 10:19 AM CREAT 0.87 07/26/2012 09:35 AM CREAT 0.94 06/27/2012 05:50 AM NA 141 10/05/2017 10:19 AM NA 139 07/26/2012 09:35 AM NA 137 06/27/2012 05:50 AM K 5.0 10/05/2017 10:19 AM K 3.9 07/26/2012 09:35 AM K 3.9 06/27/2012 05:50 AM CL 103 10/05/2017 10:19 AM CL 106 07/26/2012 09:35 AM CL 106 06/27/2012 05:50 AM CO2 26 10/05/2017 10:19 AM CO2 20 (L) 07/26/2012 09:35 AM CO2 24 06/27/2012 05:50 AM ANIONGAP 12 10/05/2017 10:19 AM MG 1.9 03/15/2012 01:05 PM MG 2.5 02/27/2012 06:05 AM PO4 4.5 02/27/2012 06:05 AM CrCl cannot be calculated (Patient's most recent lab result is older than the maximum 7 days allowed.). LFTs (most recent): Lab Results Component Value Date/Time ALKPHOS 64 10/05/2017 10:19 AM ALKPHOS 61 07/26/2012 09:35 AM ALKPHOS 51 06/27/2012 05:50 AM ALT 19 10/05/2017 10:19 AM ALT 20 07/26/2012 09:35 AM ALT 24 06/27/2012 05:50 AM AST 25 10/05/2017 10:19 AM AST 16 07/26/2012 09:35 AM AST 17 06/27/2012 05:50 AM BILITOTAL 0.3 10/05/2017 10:19 AM BILITOTAL 0.3 07/26/2012 09:35 AM BILITOTAL 0.3 06/27/2012 05:50 AM ALBUMIN 3.9 10/05/2017 10:19 AM ALBUMIN 4.0 07/26/2012 09:35 AM ALBUMIN 3.1 (L) 06/27/2012 05:50 AM LIPASE 40 02/22/2012 07:24 PM CBC result (most recent): Lab Results Component Value Date/Time WBC 5.6 10/05/2017 10:19 AM WBC 5.6 07/26/2012 09:35 AM WBC 4.6 06/27/2012 05:50 AM HGB 17.2 (H) 10/05/2017 10:19 AM HGB 13.5 (L) 07/26/2012 09:35 AM HGB 11.2 (L) 06/27/2012 05:50 AM HCT 54.7 (H) 10/05/2017 10:19 AM HCT 42.0 07/26/2012 09:35 AM HCT 35.9 (L) 06/27/2012 05:50 AM PLT 304 10/05/2017 10:19 AM PLT 303 07/26/2012 09:35 AM PLT 266 06/27/2012 05:50 AM MCV 86.6 10/05/2017 10:19 AM MCV 87.0 07/26/2012 09:35 AM MCV 88.6 06/27/2012 05:50 AM CRP result (most recent): Lab Results Component Value Date/Time CRP 3.2 10/05/2017 10:19 AM CRP 2.7 (H) 07/26/2012 09:35 AM CRP 11.9 (H) 06/27/2012 05:50 AM TB Test Results (most recent on file): Lab Results Component Value Date/Time QUANTFERON Negative 10/05/2017 10:19 AM QUANTIFAVA 0.00 10/05/2017 10:19 AM MITOGENNIL >10.00 10/05/2017 10:19 AM NIL 0.04 10/05/2017 10:19 AM Pharmacy Assessment, Plan and Follow-Up Evaluation Date 12/27/2017 Condition / Problem Ulcerative colitis Goal(s) Maintain remission of ulcerative colitis and prevent future flares Minimal side effects related to infusion Intervention(s) Entyvio Monitoring Patient progress; MD assessment Status Ongoing Date 12/27/2017 Condition/ Problem Patient/Caregiver education (potential problem) Goal Patient/Caregiver will understand: Purpose of medication Method of administration Risk associated with therapy Proper storage of medication and supplies Proper disposal of medication and supplies Intervention(s) RN and pharmacist will provide routine and repeated instruction Written materials provided. Status Ongoing Date 12/27/2017 Condition / Problem IV access (potential problem) Goal Patient is free of catheter related infection. IV access will remain patent for duration of need Intervention(s) Educate patient/caregiver regarding proper care of IV catheter Monitor patient for possible fever Monitor any relevant lab work Status Ongoing Discharge Plan Indefinite at this time This pharmacy plan of care updated and reviewed by FADI Ulloa [facility] [address] [place] [address] RAFT HYDRAULIC EQUIPMENT MECHANIC documented in this encounter Plan of Treatment Upcoming Encounters Date Type Department Care Team (Late st Contact Info) Description 02/13/2025 10:30 AM CDT Office Visit [facility] IBD and Gastroenterology [facility] [place] [address] [place] [phone] Kitty Dover, ANP [address] [facility] [address] [place] [address] documented as of this encounter Visit Diagnoses Diagnosis Ulcerative proctitis without complication- Primary documented in this encounter Care Teams Territory Sales Professional Relationship Specialty Start Date End Date Jasiel Freeman MD [address] [place] [phone] PCP - General Family Practice 08/15/17 documented as of this encounter
--- OUTSIDE RECORDS SUMMARY | 2024-10-24 05:32 | XMS_ITS | Encounter Summary ---
Author Organization [facility] Address [address] [place] [address] Care Team Providers Care Tub Rider Name Role Phone Jasiel Freeman MD Primary Care Provider Reason for Visit * Reason Onset Date Comments Stelara Order 10/11/2017 Encounter Details Date Type Department Care Team (Late st Contact Info) Description 10/11/2017 Telephone [facility] GASTROENTEROLOGY [address] [facility] [address] [place] [address] Lane Ryan MD NO ADDRESS ON FILE [facility] Social History Tobacco Use Types Packs/Day Years [...] Notes * Telephone Encounter - Kadie Nye - 10/11/2017 8:28 AM CST Left message for patient to call the office. When he calls, he should call the infusion lab [phone] to schedule infusion. GER MULTICULTURAL documented in this encounter Plan of Treatment Upcoming Encounters Date Type Department Care Team (Late st Contact Info) Description 02/13/2025 10:30 AM CDT Office Visit [facility] IBD and Gastroenterology [place] [address] [place] [address] Kitty Dover ANP [address] [place] [address] documented as of this encounter Visit Diagnoses Not on filedocumented in this encounter Care Teams Tub Rider Relationship Specialty Start Date End Date Jasiel Freeman MD [address] [place] [phone] PCP - General Family Practice 08/15/17 documented as of this encounter
--- OUTSIDE RECORDS SUMMARY | 2024-10-24 05:32 | XMS_ITS | Encounter Summary ---
Author Organization [facility] [place] Care Team Providers Care Wheel Alignment Technician Name Role Phone Jasiel Freeman MD Primary Care Provider Encounter Details Date Type Department Care Team (Late st Contact Info) Description 02/22/2018 Home Visit [address], [address] [place] [address] Ebony Cruz, JIE Social History Tobacco Use Types Packs/Day Years [...] Sign Reading Time Taken Comments Blood Pressure 136/80 02/22/2018 12:00 PM CDT Pulse 71 02/22/2018 12:00 PM CDT Temperature 36.6 ??C (97.8 ??F) 02/22/2018 12:00 PM C DT Respiratory Rate 16 02/22/2018 12:00 PM CDT Oxygen Saturation 98% 02/22/2018 12:00 PM CDT Inhaled Oxygen Concentration - - Weight - - Height - - Body Mass Index - - documented in this encounter Progress Notes * Ebony Cruz RN - 02/22/2018 5:24 PM CDT Images from the original note were not included. [facility] [address] [place] [address] Home Infusion NURSING follow up Tamekacristelraad Elkins 1970 [address] [facility] [address] 02/22/2018 Provider - Ebony Cruz RN Driving start 1045 Driving end 1200 Visit start 1200 Visit end 1300 Mile[address] 62 Contact numbers provided including after hours numbers [...] by intraveous injection see administration instructions Home DESK REPRESENTATIVE to administer over 30 minutes every 8 weeks.. 300 mg 6 ??? diphenoxylate-atropine (LOMOTIL) 2.5-0.025 mg tablet Take [...] observed with learning needs - No cultural, alevism, or language barriers to learning Patient and [...] oz) Temp Readings from Last 3 Encounters: 02/22/18 97.8 ??F (36.6 ??C) (Oral) 11/29/17 98.4 ??F (36.9 ??C) (Oral) 11/15/17 98.2 ??F (36.8 ??C) (Oral) BP Readings from Last 3 Encounters: 02/22/18 136/80 11/29/17 137/83 11/15/17 125/88 Pulse Readings from Last 3 Encounters: 02/22/18 71 11/29/17 93 11/15/17 90 Resp Readings from Last 3 Encounters: 02/22/18 16 11/29/17 16 11/15/17 16 1. shelter assessment and implementation of infusion therapy. Teaching of patient/caregiverrole in infusion therapy. Goal : Infusion therapy will be delivered per physicians orders. Infusion access will remain patent. Patient and caregiver will demonstrate an understanding of teaching and learning goals related to infusion therapy. Intervention : 24 gauge PIV placed to L hand without difficulty. Flushed PIV with 5-20 [...] reactions. Patient knows how to reorder medications. [facility] will [...] Description 02/13/2025 10:30 AM CDT Office Visit [facility] [place] [address] [place] [address] Kitty Dover ANP [address] [place] [address] documented as of this encounter Visit Diagnoses Not on filedocumented in this encounter Care Teams Wheel Alignment Technician Relationship Specialty Start Date End Date Jasiel Freeman MD [address] [place] [address] PCP - General Family Practice 08/15/17 documented as of this encounter
--- OUTSIDE RECORDS SUMMARY | 2024-10-24 05:32 | XMS_ITS | Encounter Summary ---
Author Organization [facility] [place] Address , [place] Care Team Providers Care Manager Registration Name Role Phone Jasiel Freeman MD Primary Care Provider [phone] Encounter Details Date Type Department Care Team (Late st Contact Info) Description 12/28/2017 Home Visit [address], [address] [place] [address] Ebony Cruz RN Social History Tobacco Use Types Packs/Day [...] as of this encounter Progress Notes * Ebony Cruz RN - 12/28/2017 3:16 PM CST Images from the original note were not included. [facility] [address] [facility] [address] [place] [address] Leonidas Edgardo Palomino Brittni [address] [place] [address] 12/28/2017 Provider - Ebony Luesse, RN Driving start 1300 Driving end 1430 Visit start 1430 Visit end 1530 Mile[address] 53 Home service agreement provided Verification of Benefits [...] therapy, patient/ caregiver response to instruction - understood by pt Current Outpatient Prescriptions on File Prior to Visit Medication Sig Dispense Refill ??? vedolizumab (ENTYVIO) 300 mg Recon Soln Inject 300 mg by intraveous injection see administration instructions Home WARES SORTER to administer over 30 minutes every 8 [...] observed with learning needs - No cultural, synagogue, or language barriers to learning Patient and [...] oz) Temp Readings from Last 3 Encounters: 11/29/17 98.4 ??F (36.9 ??C) (Oral) 11/15/17 98.2 ??F (36.8 ??C) (Oral) 08/24/17 97.5 ??F (36.4 ??C) BP Readings from Last 3 Encounters: 11/29/17 137/83 11/15/17 125/88 10/05/17 (!) 131/92 Pulse Readings from Last 3 Encounters: 11/29/17 93 11/15/17 90 10/05/17 86 Resp Readings from Last 3 Encounters: 11/29/17 16 11/15/17 16 08/24/17 16 1. retirement assessment and implementation of infusion therapy. Teaching of patient/caregiverrole in infusion therapy. Goal : Infusion therapy will be delivered per physicians orders. Infusion access will remain patent. Patient and caregiver will demonstrate an understanding of teaching and learning goals related to infusion therapy. Intervention : 24 gauge PIV placed to R hand without difficulty. Flushed PIV with 5-20 [...] Patient knows how to reorder medications. [facility] will [...] infusion nursing visit in approximately 8 weeks 02/27/18 for Entyvio infusion ING SUPERVISOR documented in this encounter Plan of Treatment Upcoming Encounters Date Type Department Care Team (Late st Contact Info) Description 02/13/2025 10:30 AM CDT Office Visit [facility] [place] [address] [facility] [address] [place] [address] Kitty Dover ANP [address] [place] [phone] documented as of this encounter Visit Diagnoses Not on filedocumented in this encounter Care Teams Manager Registration Relationship Specialty Start Date End Date Jasiel Freeman MD [address] [place] [phone] PCP - General Family Practice 08/15/17 documented as of this encounter
--- OUTSIDE RECORDS SUMMARY | 2024-10-24 05:32 | XMS_ITS | Encounter Summary ---
Author Organization [facility] Address [address] [place] [address] Care Team Providers Care Platinum Smith Name Role Phone Jasiel Freeman MD Primary Care Provider Reason for Visit * Reason Onset Date Comments Medication Problem 08/30/2018 Encounter Details Date Type Department Care Team (Late st Contact Info) Description 08/30/2018 Telephone [facility] [address] [facility] [address] [place] [address] Lane Ryan MD NO ADDRESS ON FILE Medication Problem Social History Tobacco Use Types Packs/Day Years [...] * Telephone Encounter - Ada Tan - 08/30/2018 12:59 PM CST Pt called because he was looking for his script for Flagyl. It was sent to [facility] pharmacy for sadia to cancel Called [facility] in [facility] and gave verbal. RVISOR BOARDING documented in this encounter Plan of Treatment Upcoming Encounters Date Type Department Care Team (Late st Contact Info) Description 02/13/2025 10:30 AM CDT Office Visit [facility] [place] [address] [place] [address] Kitty Dover, MIRTA [address] [place] [phone] documented as of this encounter Visit Diagnoses Not on filedocumented in this encounter Care Teams Platinum Smith Relationship Specialty Start Date End Date Jasiel Freeman MD [address] [place] [phone] PCP - General Family Practice 08/15/17 documented as of this encounter
--- OUTSIDE RECORDS SUMMARY | 2024-10-24 05:32 | XMS_ITS | Encounter Summary ---
Author Organization [facility] Address , [place] Care Team Providers Care Bookbinder Apprentice Name Role Phone Jasiel Freeman MD Primary Care Provider Encounter Details Date Type Department Care Team (Late st Contact Info) Description 08/09/2018 Home Visit [address], [address] [place] [address] Ebony Cruz, JIE Social History [...] Reading Time Taken Comments Blood Pressure 136/80 08/09/2018 2:15 PM CDT Pulse 79 08/09/2018 2:15 PM CDT Temperature 36.6 ??C (97.8 ??F) 08/09/2018 2:15 PM CD T Respiratory Rate 16 08/09/2018 2:15 PM CDT Oxygen Saturation 97% 08/09/2018 2:15 PM CDT Inhaled Oxygen Concentration - - Weight - - Height - - Body Mass Index - - documented in this encounter Progress Notes * Ebony Cruz RN - 08/09/2018 6:27 PM CDT Images from the original note were not included. [facility] [address] [place] [address] Home Infusion NURSING follow up Haylieraad Elkins 1970 [address] [facility] [address] 08/09/2018 Provider - Ebony Cruz RN Driving start 1230 Driving end 1345 Visit start 1345 Visit end 1445 [address] 69 Contact numbers provided including after hours numbers [...] by intraveous injection see administration instructions Home BREAD DISTRIBUTOR to administer over 30 minutes every 8 weeks.. 300 mg 6 ??? metroNIDAZOLE (FLAGYL) 250 mg tablet Take [...] oz) Temp Readings from Last 3 Encounters: 08/09/18 97.8 ??F (36.6 ??C) (Oral) 06/14/18 97.5 ??F (36.4 ??C) (Oral) 04/19/18 97.8 ??F (36.6 ??C) (Oral) BP Readings from Last 3 Encounters: 08/09/18 136/80 06/14/18 114/78 04/19/18 134/84 Pulse Readings from Last 3 Encounters: 08/09/18 79 06/14/18 85 04/19/18 83 Resp Readings from Last 3 Encounters: 08/09/18 16 06/14/18 16 04/19/18 16 1. [facility] assessment and [...] reactions. Patient knows how to reorder medications. [facility] [...] [place] [address] [place] [address] Kitty Dover ANP [address] [place] [address] documented as of this encounter Visit Diagnoses Not on filedocumented in this encounter Care Teams Bookbinder Apprentice Relationship Specialty Start Date End Date Jasiel Freeman MD [address] [place] [phone] PCP - General Family Practice 08/15/17 documented as of this encounter
--- OUTSIDE RECORDS SUMMARY | 2024-10-24 05:32 | XMS_ITS | Encounter Summary ---
Author Organization [facility] Address [address] [place] [address] Care Team Providers Care Bracer Name Role Phone Jasiel Freeman MD Primary Care Provider Reason for Visit * Reason Onset Date Comments Results 09/12/2017 Encounter Details Date Type Department Care Team (Late st Contact Info) Description 09/12/2017 Telephone [facility] [address] [facility] [address] [place] [address] Lane Ryan MD NO ADDRESS ON FILE Results Social History Tobacco Use Types Packs/Day [...] * Telephone Encounter - Ada Tan - 09/12/2017 10:28 AM CST Looking for results [phone] MENT CUTTER documented in this encounter Plan of Treatment Upcoming Encounters Date Type Department Care Team (Late st Contact Info) Description 02/13/2025 10:30 AM CDT Office Visit [facility] [place] [address] [place] [address] Kitty Dover ANP [address] [place] [address] documented as of this encounter Visit Diagnoses Not on filedocumented in this encounter Care Teams Bracer Relationship Specialty Start Date End Date Jasiel Freeman MD [address] [place] [phone] PCP - General Family Practice 08/15/17 documented as of this encounter
--- OUTSIDE RECORDS SUMMARY | 2024-10-24 05:32 | XMS_ITS | Encounter Summary ---
Author Organization [facility] Address , [place] Care Team Providers Care Electrostatic Powder Coating Technician Name Role Phone Jasiel Freeman MD Primary Care Provider Encounter Details Date Type Department Care Team (Late st Contact Info) Description 11/26/2018 Orders Only [address], [address] [place] [address] John Avina PHARMACIST Ulcerative proctitis [...] Progress Notes * John Avina PHARMACIST - 11/26/2018 3:37 PM CST [facility] Edgardo Palomino Brittni 48 y.o. / male Patient's address on file: [facility] [facility] [address] Home Phone Work Phone Home Infusion Order [...] (through 05/26/19) Per: Caren / KESHA Whitney [facility] [place] [facility] [address], [address] [place] [address] Generic substitution permitted Detailed Home Infusion Orders [...] RN will take any ordered labs to [facility] when possible. If labs are not taken to a [facility] lab, it is the responsibility of nursing to make sure labs are faxed to the pharmacy at [phone] Whitney. Catheter Care Catheter type: PIV placed by PLASTICS AND COMPOSITES INSPECTOR prior to each infusion Flush IV catheter [...] lab draws/line complications. ?? Flushes provided by [facility]fusion pharmacy are [...] Elkins (48 y.o. male) is active with [facility] services receiving Entyvio every 8 weeks at home for ulcerative colitis. ?? Edgardo is due for his next infusion this week. Dr. Nair's office contacted to renew orders. Approval obtained to continue x 6 more months. Patient to make appointment with MD in the meantime. Office will call patient. Pharmacist contacted PLASTICS AND COMPOSITES INSPECTOR to coordinate delivery. Will send medication to PLASTICS AND COMPOSITES INSPECTOR and she will bringwith her to patient's home. Timeline/Summary of Home Infusion Therapy: 11/15/17 - Start of Care / Entyvio week 0 11/29/17 - Week 2 12/28/17 - Week 6 02/21/18 - Begin maintenance dose every 8 weeks 11/26/18 - Approved x [address] Whitney Home Infusion Care Team IV Pharmacy: [facility] / [phone] Nursing Agency: [facility] Physician(s): Dr. Whitney Additional Relevant Data Insurance Information: Payor: AETNA / Plan: AETNA CHOICE POS II / Product Type: Commercial / Note: This is the primary coverage, but no account was found for this location or the patient's primary location. IV access PIV placed by PLASTICS AND COMPOSITES INSPECTOR prior to each infusion Ht Readings from Last 3 Encounters: 10/05/17 5' 9 (1.753 m) 08/24/17 5' 9 (1.753 m) 10/08/15 5' 9 (1.753 m) Wt Readings from Last 3 Encounters: 10/05/17 87.5 kg (192 lb 12.8 oz) 08/24/17 84.4 kg (186 lb) 10/08/15 86 kg (189 lb 9.6 oz) Patient Active Problem List Diagnosis Code ??? Hyponatremia E87.1 ??? Abdominal pain R10.9 ??? Ulcerative colitis K51.90 ??? Pouchitis K91.850 ??? Acute bronchitis J20.9 ??? SIRS (systemic inflammatory response syndrome) R65.10 ??? Metabolic acidosis E87.2 ??? Sepsis(995.91) A41.9 ??? JORGE (acute kidney injury) N17.9 ??? Protein calorie malnutrition E46 ??? Malnutrition E46 ??? Abdominal pain R10.9 ??? Inflammatory bowel disease K52.9 Allergies Allergen Reactions ??? Remicade [Infliximab] Rash Social History Social History ??? Marital status: Spouse name: N/A ??? Number of children: N/A ??? Years of education: N/A Occupational History ??? [employer] ??? [employer] Social History Main Topics ??? Smoking status: Former Smoker Packs/day: 0.50 Years: 10.00 Types: Cigarettes Quit date: 06/09/2011 ??? Smokeless tobacco: Not on file Comment: off & on ??? Alcohol use Yes Comment: rarely ??? Drug use: No ??? Sexual activity: Not on file Other Topics Concern ??? Not on file Social History Narrative ??? No narrative on file Medication Review Current Outpatient Prescriptions: ??? vedolizumab (ENTYVIO) 300 mg Recon Soln, Inject 300 mg by intraveous injection see administration instructions Home PLASTICS AND COMPOSITES INSPECTOR to administer over 30 minutes every 8 weeks.., Disp: 300 mg, Rfl: 3 ??? metroNIDAZOLE (FLAGYL) 500 mg tablet, Take 1 Tablet (500 mg) by mouth 3 times daily., Disp: 30 Tablet, Rfl: 0 ??? diphenoxylate-atropine (LOMOTIL) 2.5-0.025 mg tablet, Take 1 Tablet by mouth 4 times daily as needed for Diarrhea/Loose Stools., Disp: 60 Tablet, Rfl: 1 ??? [DISCONTINUED] vedolizumab (ENTYVIO) 300 mg Recon Soln, Inject 300 mg by intraveous injection see administration instructions Home PLASTICS AND COMPOSITES INSPECTOR to administer over 30 minutes every 8 weeks.., Disp: 300 mg, Rfl: 6 ??? metroNIDAZOLE (FLAGYL) 250 mg tablet, Take [...] AM CRP 11.9 (H) 06/27/2012 05:50 AM Lab Review Issues Noted? No issues [...] to Patient ?? Pharmacist offer to student counselor ?? RN instruction ?? Printed teaching sheets ?? Drug information paperwork - [facility] patient leaflet FADI Ulloa [facility] [place] [address] [facility] [address] [place] [address] TOP PUBLISHER documented in this encounter Plan of Treatment Upcoming Encounters Date Type Department Care Team (Late st Contact Info) Description 02/13/2025 10:30 AM CDT Office Visit [facility] [place] [address] [place] [address] Kitty Dover, ANP [address] [place] [address] [place] [address] documented as of this encounter Visit Diagnoses Diagnosis 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
--- OUTSIDE RECORDS SUMMARY | 2024-10-24 05:32 | XMS_ITS | Encounter Summary ---
Author Organization [facility] Address , [place] Care Team Providers Care Word Processing Specialist Name Role Phone Jasiel Freeman MD Primary Care Provider Encounter Details Date Type Department Care Team (Late st Contact Info) Description 06/14/2018 Home Visit [address], [address] [place] [address] Ebony Cruz, JIE Social History [...] Reading Time Taken Comments Blood Pressure 114/78 06/14/2018 12:00 PM CDT Pulse 85 06/14/2018 12:00 PM CDT Temperature 36.4 ??C (97.5 ??F) 06/14/2018 12:00 PM C DT Respiratory Rate 16 06/14/2018 12:00 PM CDT Oxygen Saturation 98% 06/14/2018 12:00 PM CDT Inhaled Oxygen Concentration - - Weight - - Height - - Body Mass Index - - documented in this encounter Progress Notes * Ebony Cruz RN - 06/14/2018 7:18 PM CDT Images from the original note were not included. [facility] [address] [place] [address] Home Infusion NURSING follow up Tamekayvio Edgardo Elkins 1970 [address] [facility] [address] 06/14/2018 Provider - Ebony Cruz RN Driving start 1030 Driving end 1200 Visit start 1200 Visit end 1300 [address] Contact numbers provided including after hours numbers [...] by intraveous injection see administration instructions Home WEIGHBRIDGE OPERATOR to administer over 30 minutes every 8 weeks.. 300 mg 6 ??? metroNIDAZOLE (FLAGYL) 250 mg tablet Take 1 Tablet (250 mg) by mouth 3 times daily. 90 Tablet 0 ??? TESTOSTERONE, BULK, MISC 1 mL by Misc.(Non-Drug; Combo Route) route. No current facility-administered medications on file prior to visit. No problem observed with learning needs - No cultural, presybeterian, or language barriers to learning Patient and [...] oz) Temp Readings from Last 3 Encounters: 06/14/18 97.5 ??F (36.4 ??C) (Oral) 04/19/18 97.8 ??F (36.6 ??C) (Oral) 02/22/18 97.8 ??F (36.6 ??C) (Oral) BP Readings from Last 3 Encounters: 06/14/18 114/78 04/19/18 134/84 02/22/18 136/80 Pulse Readings from Last 3 Encounters: 06/14/18 85 04/19/18 83 02/22/18 71 Resp Readings from Last 3 Encounters: 06/14/18 16 04/19/18 16 02/22/18 16 1. long term assessment and implementation of infusion therapy. Teaching of patient/caregiverrole in infusion therapy. Goal : Infusion therapy will be delivered per physicians orders. Infusion access will remain patent. Patient and caregiver will demonstrate an understanding of teaching and learning goals related to infusion therapy. Intervention : 24 gauge PIV placed to L forearm without difficulty. Flushed PIV with 5-20 ml [...] reactions. Patient knows how to reorder medications. [facility] will [...] System [facility] [place] [address] [place] [address] Kitty Dover ANP [address] [place] [address] documented as of this encounter Visit Diagnoses Not on filedocumented in this encounter Care Teams Word Processing Specialist Relationship Specialty Start Date End Date Jasiel Freeman MD [address] [place] [address] PCP - General Family Practice 08/15/17 documented as of this encounter
--- OUTSIDE RECORDS SUMMARY | 2024-10-24 05:32 | XMS_ITS | Encounter Summary ---
Author Organization [facility] Address [address] [place] [address] Care Team Providers Care Client Application Support Specialist Name Role Phone Jasiel Freeman MD Primary Care Provider Encounter Details Date Type Department Care Team (Late st Contact Info) Description 09/21/2017 Abstract [facility] GA[facility] [address] [place] [address] Lane Ryan MD NO ADDRESS ON FILE Social History Tobacco [...] [facility] [place] [address] [place] [address] Kitty Dover, MIRTA [address] [place] [address] documented as of this encounter Visit Diagnoses Not on filedocumented in this encounter Care Teams Client Application Support Specialist Relationship Specialty Start Date End Date Jasiel Freeman MD [address] [place] [phone] PCP - General Family Practice 08/15/17 documented as of this encounter
--- OUTSIDE RECORDS SUMMARY | 2024-10-24 05:32 | XMS_ITS | Encounter Summary ---
Author Organization [facility] Address [address] [place] [address] Care Team Providers Care Student Ministries Director Name Role Phone Jasiel Freeman MD Primary Care Provider Encounter Details Date Type Department Care Team (Late st Contact Info) Description 11/06/2017 Abstract [facility] [address] [place] [address] Lane Ryan MD NO ADDRESS [...] Description 02/13/2025 10:30 AM CDT Office Visit [facility]ology [facility] [place] [address] [place] [address] Kitty Dover, MIRTA [address] [place] [address] documented as of this encounter Visit Diagnoses Not on filedocumented in this encounter Care Teams Student Ministries Director Relationship Specialty Start Date End Date Jasiel Freeman MD [address] [place] [address] PCP - General Family Practice 08/15/17 documented as of this encounter
--- OUTSIDE RECORDS SUMMARY | 2024-10-24 05:32 | XMS_ITS | Encounter Summary ---
Author Organization [facility] [place] Address , [place] Care Team Providers Care Pewter Finisher Name Role Phone Jasiel Freeman MD Primary Care Provider [phone] Encounter Details Date Type Department Care Team (Late st Contact Info) Description 11/29/2018 Home Visit [address], [address] [place] [address] Irina Wyatt RN Social History [...] Sign Reading Time Taken Comments Blood Pressure 122/86 11/29/2018 12:25 PM DEVELOPER PROGRAMMER Pulse 86 11/29/2018 12:25 PM DEVELOPER PROGRAMMER Temperature 36.6 ??C (97.8 ??F) 11/29/2018 12:[address] Respiratory Rate 16 11/29/2018 12:25 PM DEVELOPER PROGRAMMER Oxygen Saturation 93% 11/29/2018 12:25 PM DEVELOPER PROGRAMMER Inhaled Oxygen Concentration - - Weight - - Height - - Body Mass Index - - documented in this encounter Progress Notes * Irina Wyatt RN - 11/29/2018 11:55 AM CST Images from the original note were not included. [facility] [address] [facility] [address] [place] [address] Home Infusion NURSING follow up Leonidas Edgardo Elkins 1970 [address] [facility] [address] 11/29/2018 Provider - Irina Wyatt RN Driving start 1010 Driving end 1115 Visit start 1115 Visit end 1235 [address] 52 Contact numbers provided including after hours numbers [...] by intraveous injection see administration instructions Home EQUIP TECH to administer over 30 minutes every 8 [...] oz) Temp Readings from Last 3 Encounters: 11/29/18 98 ??F (36.7 ??C) (Oral) 10/04/18 97.8 ??F (36.6 ??C) (Oral) 08/09/18 97.8 ??F (36.6 ??C) (Oral) BP Readings from Last 3 Encounters: 11/29/18 138/88 10/04/18 136/84 08/09/18 136/80 Pulse Readings from Last 3 Encounters: 11/29/18 90 10/04/18 71 08/09/18 79 Resp Readings from Last 3 Encounters: 11/29/18 16 10/04/18 16 08/09/18 16 1. [facility] assessment and implementation of infusion therapy. Teaching [...] in approximately 8 weeks for Entyvio infusion LOPER PROGRAMMER documented in this encounter Plan of Treatment Upcoming Encounters Date Type Department Care Team (Late st Contact Info) Description 02/13/2025 10:30 AM CDT Office Visit [facility] [place] [address] [place] [address] Kitty Dover ANP [address] [place] [address] documented as of this encounter Visit Diagnoses Not on filedocumented in this encounter Care Teams Pewter Finisher Relationship Specialty Start Date End Date Jasiel Freeman MD [address] [place] [phone] PCP - General Family Practice 08/15/17 documented as of this encounter
--- OUTSIDE RECORDS SUMMARY | 2024-10-24 05:32 | XMS_ITS | Encounter Summary ---
Author Organization [facility] Address [address] [place] [address] Care Team Providers Care Truck Greaser Name Role Phone Jasiel Freeman MD Primary Care Provider Encounter Details Date Type Department Care Team (Late st Contact Info) Description 10/24/2017 Abstract [facility] GASTR[facility]OLOG[facility] [address] [place] [address] Lane Ryan MD NO ADDRESS [...] [facility] [place] [address] [place] [address] Kitty Dover, MIRTA [address] [place] [address] documented as of this encounter Visit Diagnoses Not on filedocumented in this encounter Care Teams Truck Greaser Relationship Specialty Start Date End Date Jasiel Freeman MD [address] [place] [address] PCP - General Family Practice 08/15/17 documented as of this encounter
--- OUTSIDE RECORDS SUMMARY | 2024-10-24 05:32 | XMS_ITS | Encounter Summary ---
Author Organization [facility] Address [address] [place] [address] Care Team Providers Care Manager Intern Name Role Phone Jasiel Freeman MD Primary Care Provider Encounter Details Date Type Department Care Team (Late st Contact Info) Description 10/09/2017 Abstract [facility] GASTROENTEROLOGY [address] [place] [address] Lane Ryan MD NO ADDRESS [...] Description 02/13/2025 10:30 AM CDT [facility] [place] [address] [place] [address] Kitty Dover, MIRTA [address] [place] [address] documented as of this encounter Visit Diagnoses Not on filedocumented in this encounter Care Teams Manager Intern Relationship Specialty Start Date End Date Jasiel Freeman MD [address] [place] [address] PCP - General Family Practice 08/15/17 documented as of this encounter
--- OUTSIDE RECORDS SUMMARY | 2024-10-24 05:32 | XMS_ITS | Encounter Summary ---
Author Organization [facility] [place] [place] Address , [place] Care Team Providers Care Quality Assurance Intern Name Role Phone Jasiel Freeman MD Primary Care Provider Encounter Details Date Type Department Care Team (Late st Contact Info) Description 10/04/2018 Home Visit [address], [address] [place] [address] Ebony Cruz, JIE Social History [...] Sign Reading Time Taken Comments Blood Pressure 136/84 10/04/2018 11:00 AM SUPPLY CONTROLLER Pulse 71 10/04/2018 11:00 AM SUPPLY CONTROLLER Temperature 36.6 ??C (97.8 ??F) 10/04/2018 11:[address] Respiratory Rate 16 10/04/2018 11:00 AM SUPPLY CONTROLLER Oxygen Saturation 97% 10/04/2018 11:00 AM SUPPLY CONTROLLER Inhaled Oxygen Concentration - - Weight - - Height - - Body Mass Index - - documented in this encounter Progress Notes * Ebony Cruz RN - 10/04/2018 7:08 PM CST Images from the original note were not included. [facility] [address] [facility] [employer] [place] [address] Home Infusion NURSING follow up Leonidas Edgardo Elkins 1970 [address] [facility] [address] 10/04/2018 Provider - Ebony Cruz RN Driving start 1000 Driving end 1100 Visit start 1100 Visit end 1215 [address] 61 Contact numbers provided including after hours numbers [...] to Visit Medication Sig Dispense Refill ??? metroNIDAZOLE (FLAGYL) 500 mg tablet Take 1 Tablet (500 mg) by mouth 3 times daily. 30 Tablet 0 ??? diphenoxylate-atropine (LOMOTIL) 2.5-0.025 mg tablet Take 1 Tablet by mouth 4 times daily as needed for Diarrhea/Loose Stools. 60 Tablet 1 ??? vedolizumab (ENTYVIO) 300 mg Recon Soln Inject 300 mg by intraveous injection see administration instructions Home PSYCH THERAPIST to administer over 30 minutes every 8 [...] oz) Temp Readings from Last 3 Encounters: 10/04/18 97.8 ??F (36.6 ??C) (Oral) 08/09/18 97.8 ??F (36.6 ??C) (Oral) 06/14/18 97.5 ??F (36.4 ??C) (Oral) BP Readings from Last 3 Encounters: 10/04/18 136/84 08/09/18 136/80 06/14/18 114/78 Pulse Readings from Last 3 Encounters: 10/04/18 71 08/09/18 79 06/14/18 85 Resp Readings from Last 3 Encounters: 10/04/18 16 08/09/18 16 06/14/18 16 1. shelter assessment and implementation of infusion therapy. Teaching of patient/caregiverrole in infusion therapy. Goal : Infusion therapy will be delivered per physicians orders. Infusion access will remain patent. Patient and caregiver will demonstrate an understanding of teaching and learning goals related to infusion therapy. Intervention : 24 gauge PIV placed to L AC without difficulty. Flushed PIV with 5-20 ml [...] medications except Entyvio. Patient takes medication as ordered,knows purpose, basic side effects, and adverse reactions. Patient knows how to reorder medications.[facility] will dispense [...] in approximately 8 weeks for Entyvio infusion LY CONTROLLER documented in this encounter Plan of Treatment Upcoming Encounters Date Type Department Care Team (Late st Contact Info) Description 02/13/2025 10:30 AM CDT Office Visit [facility] [place] [address] [place] [address] Kitty Dover ANP [address] [place] [address] documented as of this encounter Visit Diagnoses Not on filedocumented in this encounter Care Teams Quality Assurance Intern Relationship Specialty Start Date End Date Jasiel Freeman MD [address] [place] [phone] PCP - General Family Practice 08/15/17 documented as of this encounter
--- OUTSIDE RECORDS SUMMARY | 2024-10-24 05:32 | XMS_ITS | Encounter Summary ---
Author Organization [facility] Address 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 Nair 01/29/19. VISION EQUIPMENT OPERATOR documented in this encounter Plan of Treatment Upcoming Encounters Date Type Department Care Team (Late st Contact Info) Description 02/13/2025 10:30 AM CDT Office Visit [facility] [place] [address] [place] [address] [place] Kitty Aguero, ANP [address] [place] [address] documented as of this encounter Results * QUANTIFERON TB GOLD (01/29/2019 9:34 AM CDT) [facility] QUANTIFERON TB GOLD PLUS Negative Negative 02/01/2019 12:01 PM CDT [facility] Comment: No interferon-gamma response to M. tuberculosis antigens was detected. Infection with M. tuberculosis is unlikely. A single negative result does not exclude infection with M. tuberculosis. In patients at high risk for M.tuberculosis infection, a second test should be considered in accordance with the 2017 ATS/IDSA/CDC Clinical Practice Guidelines for Diagnosis of Tuberculosis in Adults and Children [Lewinsohn DM et. al. Clin. Infect. Dis. 2017;64(2):111-115]. The reference range for the 'TB1 Ag minus Nil Result' and 'TB2 Ag minus Nil Result' is an Interferon-gamma level <0.35 IU/mL. TB1 AG - NIL 0.00 IU/mL 02/01/2019 12:01 PM CDT [facility] TB2 AG - NIL 0.00 IU/mL 02/01/2019 12:01 PM CDT [facility] MITOGEN-NIL 8.92 IU/mL 02/01/2019 12:01 PM CDT [facility] NIL 0.01 IU/mL 02/01/2019 12:01 PM CDT [facility] Comment: Test Performed by: [facility] [address] [place] [address] Blood Venipuncture / Unknown 01/29/2019 9:34 AM CDT 01/29/2019 9:54 AM CDT Annette Whitney MD CHEMISTRY ORDE SHREYAS [facility] * C-REACTIVE PROTEIN (01/29/2019 9:34 AM CDT) CRP 3.7 <5.0 mg/L 01/29/2019 10:45 AM CDT [facility] Blood Venipuncture / Unknown 01/29/2019 9:34 AM CDT 01/29/2019 9:54 AM CDT Annette Whitney MD CHEMISTRY ORDToño PRITCHETT [facility]ORATORY SERVICES [facility] CLKS# [id number] [address] [facility] [place] [address] * (ABNORMAL) COMPREHENSIVE METABOLIC PANEL (01/29/2019 9:34 AM CDT) Pathologist [facility] SODIUM 141 136 - 145 mmol/L 01/29/2019 10:45 AM CDT [facility] [place] POTASSIUM 4.2 3.5 - 5.0 mmol/L 01/29/2019 10:45 AM CDT [facility] CHLORIDE 105 98 - 107 mmol/L 01/29/2019 10:45 AM CDT [facility] CO2 25 22 - 29 mmol/L 01/29/2019 10:45 AM CDT [facility] CALCIUM 9.4 8.6 - 10.2 mg/dL 01/29/2019 10:45 AM CDT [facility] BUN 12 6 - 20 mg/dL 01/29/2019 10:45 AM CDT [facility] CREATININE 1.24(H) 0.67 - 1.17 mg/dL 01/29/2019 10:45 AM CDT [facility] GLUCOSE 111(H) 74 - 99 mg/dL 01/29/2019 10:45 AM CDT [facility] - . [place] TOTAL PROTEIN 7.4 6.7 - 8.6 g/dL 01/29/2019 10:45 AM CDT [facility] [place] [facility] ALBUMIN 3.9 3.5 - 5.2 g/dL 01/29/2019 10:45 AM [facility] - . [facility] BILIRUBIN TOTAL 0.4 0.3 - 1.2 mg/dL 01/29/2019 10:45 AM [facility] ALKALINE PHOSPHATASE 74 40 - 129 U/L 01/29/2019 10:45 AM [facility] [place] [facility] - . [facility] AST 23 <41 U/L 01/29/2019 10:45 AM [facility] - . [facility] ALT 24 <42 U/L 01/29/2019 10:45 AM [facility] GFR >60 >=60 mL/min/1.7 3 sq meter 01/29/2019 10:45 AM [facility] [place] [facility] Comment: eGFR has not been validated for [...] mL/min/1.7 3 sq meter 01/29/2019 10:45 AM [facility] [place] [facility] ANION GAP 11 8 - 16 mmol/L 01/29/2019 10:45 AM [facility] Blood Venipuncture / Unknown 01/29/2019 9:34 AM CDT 01/29/2019 9:54 AM [facility] [place] [facility] - 01/29/2019 10:45 AM [facility] Samples containing indocyanine green cause interferences on Total and/or Direct Bilirubin and must not be measured. Annette Whitney MD CHEMISTRY [place] [facility]TT [facility] Organization Address City/State/ZIP Co de Phone Number [facility] [place] [facility] CLIA# [id number] [address] [place] [address] * (ABNORMAL) CBC WITH DIFFERENTIAL (01/29/2019 9:34 AM CDT) [facility] WBC 5.0 4.0 - 9.8 K/uL 01/29/2019 10:10 AM CDT [facility] - . [place] RBC 6.43(H) 4.50 - 5.40 M/uL 01/29/2019 10:10 AM CDT [facility] - . [facility] HEMOGLOBIN 18.4(H) 13.6 - 16.5 g/dL 01/29/2019 10:10 AM CDT [facility] - . [place] HEMATOCRIT 56.8(H) 40.0 - 48.0 % 01/29/2019 10:10 AM CDT [facility] - . [facility] MCV 88.3 82.0 - 99.0 fL 01/29/2019 10:10 AM CDT [facility] MCH 28.6 27.2 - 32.6 pg 01/29/2019 10:10 AM CDT [facility] MCHC 32.4 31.5 - 35.5 g/dL 01/29/2019 10:10 AM CDT [facility] RDW 14.2 11.5 - 14.5 % 01/29/2019 10:10 AM [employer] [facility] RDW-STDEV 44.8 37.1 - 48.7 fL 01/29/2019 10:10 AM CDT [facility] PLATELETS 303 140 - 350 K/uL 01/29/2019 10:10 AM CDT [facility] - . [facility] MPV 9.8 9.3 - 12.4 fL 01/29/2019 10:10 AM CDT [facility] NEUTROPHILS 64 % 01/29/2019 10:10 AM CDT [facility] LYMPHOCYTES 22 % 01/29/2019 10:10 AM CDT [facility] MONOCYTES 10 % 01/29/2019 10:10 AM CDT [facility] EOSINOPHILS 3 % 01/29/2019 10:10 AM CDT [facility] BASOPHILS 1 % 01/29/2019 10:10 AM CDT [facility] IMMATURE GRANULOCYTES 0 % 01/29/2019 10:10 AM CDT [facility] NEUTROPHIL ABSOLUTE 3.24 1.90 - 7.00 K/uL 01/29/2019 10:10 AM CDT [facility] LYMPHOCYTE ABSOLUTE 1.11 0.70 - 4.50 K/uL 01/29/2019 10:10 AM CDT [employer] [facility] - [facility] MONOCYTE ABSOLUTE 0.49 0.10 - 1.30 K/uL 01/29/2019 10:10 AM CDT [facility] EOSINOPHIL ABSOLUTE 0.13 0.00 - 0.70 K/uL 01/29/2019 10:10 AM CDT [facility] BASOPHILS ABSOLUTE 0.04 0.00 - 0.20 K/uL 01/29/2019 10:10 AM T [facility] IMMATURE GRANULOCYTES ABSOLUTE 0.02 0.00 - 0.03 K/uL 01/29/2019 10:10 AM T [employer] [facility] - . [facility] Blood Venipuncture / Unknown 01/29/2019 9:34 AM CDT 01/29/2019 9:54 AM CDT Annette Whitney MD HEMATOLOGY ORD ERABLES [facility] [place] [facility]# [id number] 5 [facility] [place] [address] * (ABNORMAL) VITAMIN D 25 HYDROXY (01/29/2019 9:34 AM CDT) [facility] VITAMIN D TOTAL (25OH) 16(L) 30 - 100 ng/mL 01/29/2019 10:55 AM CDT [employer] [facility] Blood Venipuncture / Unknown 01/29/2019 9:34 AM CDT 01/29/2019 9:[address] [facility] - Fady DIAZ - 01/29/2019 10:55 AM CDT Interpretive Data Chart: Deficient: 0 - 20 ng/mL Insufficient: 21 - 29 ng/mL Sufficient: 30 - 100 ng/mL Increased Risk of Hypercalciuria: >100 ng/mL Toxic: >150 ng/mL Annette Whitney MD CHEMISTRY ORDToño PRITCHETT [facility] SERVICES - [facility]# [id number] [address] [place] [address] documented in this encounter Visit Diagnoses Diagnosis Ulcerative proctitis without complication- Primary Pouchitis documented in this encounter Care Teams Butcher Scullion Relationship Specialty Start Date End Date Jasiel Freeman MD [address] [place] [phone] PCP - General Family Practice 08/15/17 documented as of this encounter
--- OUTSIDE RECORDS SUMMARY | 2024-10-24 05:32 | XMS_ITS | Encounter Summary ---
Author Organization [facility] Address [address] [place] [address] Care Team Providers Care Vat House Laborer Name Role Phone Jasiel Freeman MD Primary Care Provider Encounter Details Date Type Department Care Team (Latest Contact Info) Description 10/24/2017 Orders Only [facility] GASTR[facility]OLOGY [address] [place] [address] Lane Ryan MD NO ADDRESS ON FILE Inflammatory bowel disease (Primary Dx) Social History [...] 10:30 AM CDT Office Visit [facility] [place] [address] [place] [address] Kitty Dover, ANP [address] [place] [address] documented as of this encounter Visit Diagnoses Diagnosis Inflammatory bowel disease- Primary Other and unspecified noninfectious gastroenteritis and colitis documented in this encounter Care Teams Vat House Laborer Relationship Specialty Start Date End Date Jasiel Freeman MD [address] [place] [phone] PCP - General Family Practice 08/15/17 documented as of this encounter
--- OUTSIDE RECORDS SUMMARY | 2024-10-24 05:32 | XMS_ITS | Encounter Summary ---
Author Organization [facility] Address [address] [place] [address] Care Team Providers Care Photograph Developer Name Role Phone Jasiel Freeman MD Primary Care Provider [phone] Reason for Visit * Reason Onset Date Comments stelara review 11/14/2017 Encounter Details Date Type Department Care Team (Late st Contact Info) Description 11/14/2017 Telephone [facility] GASTROENTEROLOGY [address] [facility] [address] [place] [address] Lane Ryan MD NO ADDRESS ON FILE stelara review Social History Tobacco Use Types Packs/Day Years [...] * Telephone Encounter - Ada Tan - 11/14/2017 9:08 AM CST Rep called on Monday to tell us to send this pt for urgent review fax# [phone] K SERVICE TECHNICIAN documented in this encounter Plan of Treatment Upcoming Encounters Date Type Department Care Team (Late st Contact Info) Description 02/13/2025 10:30 AM CDT Office Visit [facility] [place] [address] [place] [address] Kitty Dover ANP [address] [place] [address] documented as of this encounter Visit Diagnoses Not on filedocumented in this encounter Care Teams Photograph Developer Relationship Specialty Start Date End Date Jasiel Freeman MD [address] [place] [phone] PCP - General Family Practice 08/15/17 documented as of this encounter
--- OUTSIDE RECORDS SUMMARY | 2024-10-24 05:32 | XMS_ITS | Encounter Summary ---
Author Organization [facility] [place] [place] Address , [place] Care Team Providers Care Location Man Name Role Phone Jasiel Freeman MD Primary Care Provider Encounter Details Date Type Department Care Team (Late st Contact Info) Description 06/13/[address], [address] [place] [address] John Avina PHARMACIST Social History Tobacco Use [...] encounter Miscellaneous Notes * Telephone Encounter - John vAina PHARMACIST - 06/13/2018 11:07 AM CDT [facility] Specialty & Home [facility] [employer] Care Plan Demographics Edgardo Elkins 47 y.o. / male Patient's address on file: [address] [place] [address] Patient's current location: Same as above Patient Contact Information: Home Phone Work Phone [phone] Insurance Information: [employer] Choice POS II Home Infusion Care Team IV Pharmacy: [facility] / [phone] Nursing: [facility] Physician(s): Dr. Lane Ryan IV access PIV placed by RN prior to each infusion Progress Note Patient admitted to [facility] services upon referral from physician. Patient to receive Entyvio at home every 8 weeks for ulcerative colitis. Edgardo is due for his next infusion tomorrow. Pharmacist contacted [facility] Ebony to coordinate delivery. Will send medication to [facility] and she will bring with her. Additional Relevant Information Actual Body Weight: 87.5 [...] bowel disease K52.9 Current Outpatient Prescriptions: ??? diphenoxylate-atropine (LOMOTIL) 2.5-0.025 mg tablet, Take 1 Tablet by mouth 4 times daily as needed for Diarrhea/Loose Stools., Disp: 60 Tablet, Rfl: 1 ??? vedolizumab (ENTYVIO) 300 mg Recon Soln, Inject 300 mg by intraveous injection see administration instructions Home INSOLE TAPER to administer over 30 minutes every 8 weeks.., Disp: 300 mg, Rfl: 6 ??? metroNIDAZOLE (FLAGYL) 250 mg tablet, Take 1 Tablet (250 mg) by mouth 3 times daily., Disp: 90 Tablet, Rfl: 0 ??? TESTOSTERONE, BULK, MISC, 1 mL by Misc.(Non-Drug; Combo Route) route., Disp: , Rfl: Social History Social History ??? Marital status: [...] Pharmacy Assessment, Plan and Follow-Up Evaluation Date 06/13/2018 Condition / Problem Ulcerative colitis Goal(s) Maintain remission of ulcerative colitis and prevent future flares Minimal side effects related to infusion Intervention(s) Entyvraad Monitoring Patient progress; MD assessment Status Ongoing Date 06/13/2018 Condition/ Problem Patient/Caregiver education (potential problem) Goal Patient/Caregiver will understand: Purpose of medication Method of administration Risk associated with therapy Proper storage of medication and supplies Proper disposal of medication and supplies Intervention(s) RN and pharmacist will provide routine and repeated instruction Written materials provided. Status Ongoing Date 06/13/2018 Condition / Problem IV access (potential problem) Goal Patient is free of catheter related infection. IV access will remain patent for duration of need Intervention(s) Educate patient/caregiver regarding proper care of IV catheter Monitor patient for possible fever Monitor any relevant lab work Status Ongoing Discharge Plan Indefinite at this time This pharmacy plan of care updated and reviewed by FADI Ulloa [facility] Specialty & Home Infusion [address] , [address] [place] [address] documented in this encounter Plan of Treatment Upcoming Encounters Date Type Department Care Team (Late st Contact Info) Description 02/13/2025 10:30 AM CDT Office Visit [facility] IBD and Gastroenterology Center [place] [address] [facility] [address] [place] [address] Kitty Dover, MIRTA [address] [place] [address] documented as of this encounter Visit Diagnoses Not on filedocumented in this encounter Care Teams Location Man Relationship Specialty Start Date End Date Jasiel Freeman MD [address] [place] [address] PCP - General Family Practice 08/15/17 documented as of this encounter
--- OUTSIDE RECORDS SUMMARY | 2024-10-24 05:32 | XMS_ITS | Encounter Summary ---
Author Organization [facility] [place] , [place] Care Team Providers Care Compressor House Operator Name Role Phone Jasiel Freeman MD Primary Care Provider Encounter Details Date Type Department Care Team (Late st Contact Info) Description 04/19/2018 Home Visit [address], [address] [place] [address] Ebony Cruz, JIE Social History [...] Sign Reading Time Taken Comments Blood Pressure 134/84 04/19/2018 12:30 PM CDT Pulse 83 04/19/2018 12:30 PM CDT Temperature 36.6 ??C (97.8 ??F) 04/19/2018 12:30 PM C DT Respiratory Rate 16 04/19/2018 12:30 PM CDT Oxygen Saturation 97% 04/19/2018 12:30 PM CDT Inhaled Oxygen Concentration - - Weight - - Height - - Body Mass Index - - documented in this encounter Progress Notes * Ebony Cruz RN - 04/19/2018 5:54 PM CDT Images from the original note were not included. [facility] Specialty and Home Infusion Pharmacy [address] [place] [address] Home Infusion NURSING follow up Haylieraad Elkins 1970 [address] [facility] [address] 04/19/2018 Provider - Ebony Cruz RN Driving start 1115 Driving end 1215 Visit start 1215 Visit end 1330 Mileage 66 Contact numbers provided including after hours numbers [...] by intraveous injection see administration instructions Home DINKEY OPERATOR SLAG to administer over 30 minutes every 8 [...] observed with learning needs - No cultural, tenriism, or language barriers to learning Patient and [...] oz) Temp Readings from Last 3 Encounters: 04/19/18 97.8 ??F (36.6 ??C) (Oral) 02/22/18 97.8 ??F (36.6 ??C) (Oral) 11/29/17 98.4 ??F (36.9 ??C) (Oral) BP Readings from Last 3 Encounters: 04/19/18 134/84 02/22/18 136/80 11/29/17 137/83 Pulse Readings from Last 3 Encounters: 04/19/18 83 02/22/18 71 11/29/17 93 Resp Readings from Last 3 Encounters: 04/19/18 16 02/22/18 16 11/29/17 16 1. FDC assessment and implementation of infusion [...] reactions. Patient knows how to reorder medications. [facility] Specialty and Home Infusion Pharmacy [...] [facility] IBD and Gastroenterology Center [place] [address] [place] [address] Kitty Dover ANP [address] [place] [address] documented as of this encounter Visit Diagnoses Not on filedocumented in this encounter Care Teams Compressor House Operator Relationship Specialty Start Date End Date Jasiel Freeman MD [address] [place] [phone] PCP - General Family Practice 08/15/17 documented as of this encounter
--- OUTSIDE RECORDS SUMMARY | 2024-10-24 05:32 | XMS_ITS | Encounter Summary ---
Author Organization [facility] Address [address] [place] [address] Care Team Providers Care Business Analyst Project Manager Name Role Phone Jasiel Freeman MD Primary Care Provider Encounter Details Date Type Department Care Team (Late st Contact Info) Description 08/28/2018 Orders Only [facility] GASTROENTEROLOGY [address] [place] [address] Lane Ryan MD NO ADDRESS [...] [place] [address] [place] [address] Kitty Dover ANP [address] [place] [address] documented as of this encounter Visit Diagnoses Not on filedocumented in this encounter Care Teams Business Analyst Project Manager Relationship Specialty Start Date End Date Jasiel Freeman MD [address] [place] [address] PCP - General Family Practice 08/15/17 documented as of this encounter
--- OUTSIDE RECORDS SUMMARY | 2024-10-24 05:32 | XMS_ITS | Encounter Summary ---
Author Organization [facility] Address [address] [place] [address] Care Team Providers Care Golf Course Assistant Name Role Phone Jasiel Freeman MD Primary Care Provider Reason for Visit * Reason Onset Date Comments Insurance Issues 10/30/2017 Encounter Details Date Type Department Care Team (Late st Contact Info) Description 10/30/2017 Telephone [facility] Pharm[facility] [address] [place] [address] Thanh Solares, PHARMACIST Insurance Issues Social History Tobacco Use Types Packs/Day Years [...] Telephone Encounter - Thanh Solares, PHARMACIST - 10/30/2017 10:46 AM TREE CHIPPER [facility] Specialty & Infusion [place] Progress Note Our office received a denial for the authorization request for Marielena. I phoned Dr Ryan's office and spoke with Kadie regarding having Dr Ryan perform a [id number] discussion. [facility] [address] [place] [address], [address] [place] [address] CHIPPER documented in this encounter Plan of Treatment Upcoming Encounters Date Type Department Care Team (Late st Contact Info) Description 02/13/2025 10:30 AM CDT Office Visit [facility] IBD and Gastroenterology Center [place] [address] [place] [address] Kitty Dover ANP [address] [place] [address] [facility] [address] [place] [address] documented as of this encounter Visit Diagnoses Not on filedocumented in this encounter Care Teams Golf Course Assistant Relationship Specialty Start Date End Date Jasiel Freeman MD [address] [place] [phone] PCP - General Family Practice 08/15/17 documented as of this encounter
--- OUTSIDE RECORDS SUMMARY | 2024-10-24 05:32 | XMS_ITS | Encounter Summary ---
Author Organization [facility] Address [address] [place] [address] Care Team Providers Care Ceramic Engineering Professor Name Role Phone Jasiel Freeman MD Primary Care Provider [phone] Reason for Visit * Reason Onset Date Comments Home Infusion PA 05/18/2018 Encounter Details Date Type Department Care Team (Late st Contact Info) Description 05/18/2018 Telephone [facility] GASTROENTEROLOGY [address] [facility] [address] [place] [address] Lane Ryan MD NO ADDRESS ON FILE Home Infusion PA Social History Tobacco Use Types Packs/Day Years [...] * Telephone Encounter - Ada Tan - 05/18/2018 8:51 AM CDT Recd call from Claudette robin) saying she is trying to get pt authorized for home infusion. She needs office notes current TB test and script. Faxed to her [phone]. Pt is currently getting home Infusion and PA is good. After I told her this she said Ok she sees auth. documented in this encounter Plan of Treatment Upcoming Encounters Date Type Department Care Team (Late st Contact Info) Description 02/13/2025 10:30 AM CDT Office Visit [facility] IBD and Gastroenterology Center [place] [address] [place] [address] Kitty Dover, MIRTA [address] [place] [address] [place] [address] documented as of this encounter Visit Diagnoses Not on filedocumented in this encounter Care Teams Ceramic Engineering Professor Relationship Specialty Start Date End Date Jasiel Freeman MD [address] [place] [phone] PCP - General Family Practice 08/15/17 documented as of this encounter
--- OUTSIDE RECORDS SUMMARY | 2024-10-24 05:32 | XMS_ITS | Encounter Summary ---
Author Organization [facility] Address [address] [place] [address] Care Team Providers Care Video Software Engineer Name Role Phone Jasiel Freeman MD Primary Care Provider Reason for Visit * Reason Onset Date Comments Stelara denial 12/06/2017 Encounter Details Date Type Department Care Team (Late st Contact Info) Description 12/06/[address] [facility] Gastroenterology [place] [address] [facility] [address] [place] [address] Lane Ryan MD NO ADDRESS ON FILE Stelara denial Social History Tobacco Use Types Packs/Day Years [...] encounter Miscellaneous Notes * Telephone Encounter - PopeyeSurekhaKadie B - 12/06/2017 9:38 AM CST Surekha, I wanted to let you know that the patient Edgardo Elkins???s PA request has been denied for the second time. It looks like the next level of appeal would be a [id number]. Otherwise, let us know how we should proceed. Bo. Please review chart and advise. Thank you. TION SALES ADVISOR documented in this encounter Plan of Treatment Upcoming Encounters Date Type Department Care Team (Late st Contact Info) Description 02/13/2025 10:30 AM CDT Office Visit [facility] IBD and Gastroenterology Center [place] [address] [place] [address] Kitty Dover ANP [address] [place] [address] documented as of this encounter Visit Diagnoses Not on filedocumented in this encounter Care Teams Video Software Engineer Relationship Specialty Start Date End Date Jasiel Freeman MD [address] [place] [phone] PCP - General Family Practice 08/15/17 documented as of this encounter
--- OUTSIDE RECORDS SUMMARY | 2024-10-24 05:32 | XMS_ITS | Encounter Summary ---
Author Organization [facility] Address [address] [place] [address] Care Team Providers Care Independent Crop Consultant Name Role Phone Jasiel Freeman MD Primary Care Provider [phone] Reason for Visit * Tx/Med Therapy Plan Auth (Routine) - Closed Specialty Diagnoses / Procedures Referred By Contac t Referred To Contact Oncology Diagnoses Ulcerative colitis, unspecified Procedures INFUSION THERAPY SC INJECTION, VEDOLIZUMAB CROHN'S / COLITIS - Lane Conklin MD NO ADDRESS ON FILE [facility] Infusion [place] 2nd Floor [place] [address] [place] [address] Referral ID Status Reason Start Date Expiration Date Visits Re quested Visits Authorized [id number] Closed 11/15/2017 05/15/2018 99 99 Encounter Details Date Type Department Care Team (Latest Contact Info) Description 11/29/2017 9:58 AM DIPPER OPERATOR - 11/29/2017 11:59 PM DIPPER OPERATOR Hospital Encounter [facility] Infusion Center 2nd Fl [address] [place] [address] Lane Ryan MD NO ADDRESS ON FILE Discharge Disposition: Home or Self Care Social [...] Sign Reading Time Taken Comments Blood Pressure 137/83 11/29/2017 10:03 AM DIPPER OPERATOR Pulse 93 11/29/2017 10:03 AM DIPPER OPERATOR Temperature 36.9 ??C (98.4 ??F) 11/29/2017 10:[address] Respiratory Rate 16 11/29/2017 10:03 AM DIPPER OPERATOR Oxygen Saturation - - Inhaled Oxygen Concentration [...] needed for Diarrhea/Loose Stools. 60 Tablet 1 10/24/2017 06/04/2018 metroNIDAZOLE (FLAGYL) 250 mg tablet Take 1 Tablet (250 mg) by mouth 3 times daily. 90 Tablet 09/19/2017 11/13/2019 HUMIRA 40 mg/0.8 mL Syringe Kit INJECT 1 SYRINGE (40MG) SUBCUTANEOUSLY WEEKLY -REFRIGERATE DO NOT FREEZE 12 Kit 1 02/17/2017 12/28/2017 adalimumab (HUMIRA) 40 mg/0.8 mL Syringe Kit Inject 0.8 mL (40 mg) by subcutaneous injection see administration instructions Provide pens. 2 Each 6 12/16/2014 12/28/2017 adalimumab (HUMIRA) 40 mg/0.8 mL Kit Inject 0.8 mL by subcutaneous injection see administration instructions. 2 Each 6 07/16/2014 12/28/2017 documented as of this encounter Miscellaneous Notes * Care Plan - Carline Dye RN - 11/29/2017 11:48 AM CST Problem: Inflammatory Bowel Disease (Adult) Goal: Prevent/Manage Potential Problems Signs and symptoms of listed problems will be absent or manageable. Outcome: Progressing Pt admitted to [facility] for infusion. Denies questions about medication/side effects as well as active infection. Entyvio given without difficulty. Pt instructed to notify physician or go to ED if there are any changes in their condition. Verbalized understanding. Pt discharged ambulatory with cg. ER OPERATOR documented in this encounter Plan of Treatment Upcoming Encounters Date Type Department Care Team (Late st Contact Info) Description 02/13/2025 10:30 AM CDT Office Visit [facility] IBD and Gastroenterology Center [place] [address] [place] [address] Kitty Dover ANP [address] [place] [address] documented as of this encounter Visit Diagnoses Not on filedocumented in this encounter Administered Medications Inactive Administered Medications - up to 3 most recent administrations Medication Order MAR Action Action Date Dose Rate Site sodium chloride 0.9% bolus solution 250 mL 250 mL, IV, ONE TIME ONLY, 1 dose, On Mon11/29/17 at 1015, at 50 mL/hr, Administer over 5 Hours, Routine New Bag 11/29/2017 10:25 AM DIPPER OPERATOR 250 mL 50 mL/hr vedolizumab (ENTYVIO) 300 mg in sodium chloride 0.9% 250 mL IVPB 300 mg, IV, ONE TIME ONLY, 1 dose, On Mon11/29/17 at 1045, Routine New Bag 11/29/2017 11:06 AM DIPPER OPERATOR 300 mg 510 mL/hr documented in this encounter Care Teams Independent Crop Consultant Relationship Specialty Start Date End Date Jasiel Freeman MD [address] [place] [phone] PCP - General Family Practice 08/15/17 documented as of this encounter
--- OUTSIDE RECORDS SUMMARY | 2024-10-24 05:32 | XMS_ITS | Encounter Summary ---
Author Organization [facility] Address [address] [place] [address] Care Team Providers Care Industrial Safety And Health Specialist Name Role Phone Jasiel Freeman MD Primary Care Provider Reason for Visit * Reason Onset Date Comments Medication Problem 11/09/2017 Encounter Details Date Type Department Care Team (Late st Contact Info) Description 11/09/2017 Telephone [facility] GASTROENTEROLOGY [address] [facility] [address] [place] [address] Lane Ryan MD NO ADDRESS [...] encounter Miscellaneous Notes * Telephone Encounter - Lane Ryan MD - 11/09/2017 11:38 AM CST Were andReviewed with patient. Repeated denial for stelara. Pt original dx was UC. Peer to peer review--Dr Mclaughlin in [place] refuses to respond. Will try to get vedoluzimab approved jf T RAIL TRAIN OPERATOR documented in this encounter Plan of Treatment Upcoming Encounters Date Type Department Care Team (Late st Contact Info) Description 02/13/2025 10:30 AM CDT Office Visit [facility] IBD and Gastroenterology Center [place] [address] [place] [address] Kitty Dover, ANP [address] [place] [address] documented as of this encounter Visit Diagnoses Not on filedocumented in this encounter Care Teams Industrial Safety And Health Specialist Relationship Specialty Start Date End Date Jasiel Freeman MD [address] [place] [phone] PCP - General Family Practice 08/15/17 documented as of this encounter
--- OUTSIDE RECORDS SUMMARY | 2024-10-24 05:32 | XMS_ITS | Encounter Summary ---
Author Organization [facility] Address [address] [place] [address] Care Team Providers Care Sales Development Executive Name Role Phone Jasiel Freeman MD Primary Care Provider Encounter Details Date Type Department Care Team (Late st Contact Info) Description 12/21/2017 Abstract [facility] GASTROENTEROLOGY [address] [facility] [address] [place] [address] Lane Ryan MD NO ADDRESS [...] 02/13/2025 10:30 AM CDT Office Visit [facility] IBD and Gastroenterology Center [place] [address] [place] [address] Kitty Dover, MIRTA [address] [place] [address] documented as of this encounter Visit Diagnoses Not on filedocumented in this encounter Care Teams Sales Development Executive Relationship Specialty Start Date End Date Jasiel Freeman MD [address] [place] [address] PCP - General Family Practice 08/15/17 documented as of this encounter
--- OUTSIDE RECORDS SUMMARY | 2024-10-24 05:32 | XMS_ITS | Encounter Summary ---
Author Organization [facility] Address [address] [place] [address] Care Team Providers Care Manager Diabetes Name Role Phone Jasiel Freeman MD Primary Care Provider Encounter Details Date Type Department Care Team (Late st Contact Info) Description 10/10/2017 Abstract [facility] GASTROENTEROLOGY [address] [facility] [address] [place] [address] Lane Ryan MD NO ADDRESS [...] Office Visit [facility] IBD and Gastroenterology Center [place] [address] [place] [address] Kitty Dovre, MIRTA [address] [place] [address] documented as of this encounter Visit Diagnoses Not on filedocumented in this encounter Care Teams Manager Diabetes Relationship Specialty Start Date End Date Jasiel Freeman MD [address] [place] [address] PCP - General Family Practice 08/15/17 documented as of this encounter
--- OUTSIDE RECORDS SUMMARY | 2024-10-24 05:32 | XMS_ITS | Encounter Summary ---
Author Organization [facility] Address [address] [place] [address] Care Team Providers Care Finisher Machine Name Role Phone Jasiel Freeman MD Primary Care Provider Encounter Details Date Type Department Care Team (Late Contact Info) Description 10/05/2017 Orders Only [facility] Admitting [address] [place] [address] Ilene Dailey MD [address] [facility] [address] [place] [address] Social History Tobacco Use Types Packs/Day Years [...] 10:30 AM CDT Office Visit [facility] IBD and Gastroenterology Center [place] [address] [place] [address] Kitty Dover, ANP [address] [address] documented as of this encounter Visit Diagnoses Not on filedocumented in this encounter Care Teams Finisher Machine Relationship Specialty Start Date End Date Jasiel Freeman MD [address] [place] [phone] PCP - General Family Practice 08/15/17 documented as of this encounter
--- OUTSIDE RECORDS SUMMARY | 2024-10-24 05:32 | XMS_ITS | Encounter Summary ---
Author Organization [facility] Address [address] [place] [address] Care Team Providers Care Retort Pre Cooker Name Role Phone Jasiel Freeman MD Primary Care Provider Reason for Visit * Reason Onset Date Comments Establish Care 12/06/2018 Entyvio infusion s Encounter Details Date Type Department Care Team (Late st Contact Info) Description 12/06/2018 Telephone [facility] Gastroenterology [facility] [address] [facility] [address] [place] [address] Annette Whitney MD [address] [place] [address] Establish Care (Entyvio infusions) Social History Tobacco Use Types Packs/Day [...] Telephone Encounter - Joaquina Prescott RN - 12/06/2018 1:07 PM SENIOR PRODUCTION PLANNER Left a second message that Entyvio was approved for [address] Nair and would not be extended further until he has established care with Dr. Nair. He needs [facility] [phone] to make the appointment. OR PRODUCTION PLANNER documented in this encounter Plan of Treatment Upcoming Encounters Date Type Department Care Team (Late st Contact Info) Description 02/13/2025 10:30 AM CDT Office Visit [facility] IBD and Gastroenterology Center [place] [address] [facility] [address] [place] [address] Kitty Dover, MIRTA [address] [place] [address] [place] [address] documented as of this encounter Visit Diagnoses Not on filedocumented in this encounter Care Teams Retort Pre Cooker Relationship Specialty Start Date End Date Jasiel Freeman MD [address] [place] [phone] PCP - General Family Practice 08/15/17 documented as of this encounter
--- OUTSIDE RECORDS SUMMARY | 2024-10-24 05:32 | XMS_ITS | Encounter Summary ---
Author Organization [facility] Address [address] [place] [address] Care Team Providers Care Blemish Remover Name Role Phone Jasiel Freeman MD Primary Care Provider Encounter Details Date Type Department Care Team (Late st Contact Info) Description 11/01/2017 Abstract [facility] GASTROENTEROLOGY [address] [place] [address] Lane Ryan MD NO ADDRESS [...] [facility] IBD and Gastroenterology Center [place] [address] [place] [address] Kitty Dover, MIRTA [address] [place] [address] documented as of this encounter Visit Diagnoses Not on filedocumented in this encounter Care Teams Blemish Remover Relationship Specialty Start Date End Date Jasiel Freeman MD [address] [place] [address] PCP - General Family Practice 08/15/17 documented as of this encounter
--- OUTSIDE RECORDS SUMMARY | 2024-10-24 05:32 | XMS_ITS | Encounter Summary ---
Author Organization [facility] Address [address] [place] [address] Care Team Providers Care Computing Systems Mechanic Name Role Phone Jasiel Freeman MD Primary Care Provider [phone] Encounter Details Date Type Department Care Team (Latest Contact Info) Description 10/05/2017 10:18 AM KELP GATHERER - 10/05/2017 11:59 PM [facility] Hospital Encounter [facility] Laboratory Services Medical [place] A [address] [facility], [place] [address] Lane Ryan MD NO ADDRESS ON FILE [...] 1 mL by Misc.(Non-Drug; Combo Route) route. metroNIDAZOLE (FLAGYL) 250 mg tablet Take 1 [...] 07/16/2014 12/28/2017 documented as of this encounter Plan of Treatment Upcoming Encounters Date Type Department Care Team (Late st Contact Info) Description 02/13/2025 10:30 AM CDT Office Visit [facility] IBD and Gastroenterology Center [place] [address] [place] [address] Kitty Dover ANP [address] [place] [address] [place] [address] documented as of this encounter Procedures Procedure Name Priority Date/Time Associated Diagnosis Comments QUANTIFERON TB GOLD Routine 10/05/2017 1 0:19 AM KELP GATHERER Inflammatory bowel disease HEPATITIS B SURFACE ANTIGEN Routine 10/05/2017 10:19 AM KELP GATHERER Inflammatory bowel disease CBC WITH DIFFERENTIAL Routine 10/05/2017 10:19 AM KELP GATHERER Inflammatory bowel disease C-REACTIVE PROTEIN Routine 10/05/2017 10 :19 AM KELP GATHERER Inflammatory bowel disease COMPREHENSIVE METABOLIC PANEL Routine 10/05/2017 10:19 AM KELP GATHERER Inflammatory bowel disease documented in this encounter Results * HEPATITIS B SURFACE ANTIGEN (10/05/2017 10:19 AM KELP GATHERER) HEPATITIS B SURFACE AG NON-REACTI VE Non-reacti ve 10/05/2017 12:30 PM KELP GATHERER [facility] Blood Venipuncture / Unknown 10/05/2017 10:19 AM KELP GATHERER 10/05/2017 10:[address] Ryan MD CHEMISTRY ORDERABLES [facility] [employer] [facility] CLIA# [id number] [address] [place] [place] [address] * QUANTIFERON TB GOLD (10/05/2017 10:19 AM KELP GATHERER) Pathologist [facility] QUANTIFERON(R)-TB GOLD Negative Negative 10/09/2017 12:57 PM KELP GATHERER [facility] [employer] [facility] Comment: No interferon-gamma response to M. tuberculosis antigens was detected. Infection with M. tuberculosis is unlikely. A negative result alone does not exclude infection with M. tuberculosis. For detailed information regarding test interpretation see: www.[employer]/test-catalog/ Clinical+and+Interpretive/21612 QuantiFERON TB Ag Value 0.00 IU/mL 10/09/2017 12:57 PM [facility] [employer] [facility] MITOGEN-NIL >10.00 IU/mL 10/09/2017 12:57 PM [facility] NIL 0.04 IU/mL 10/09/2017 12:57 PM [facility] Comment: Test Performed by: [facility] [address] [place] [address] Blood Venipuncture / Unknown 10/05/2017 10:19 AM KELP GATHERER 10/05/2017 10:[address] Ryan MD CHEMISTRY ORDERABLES [facility] * (ABNORMAL) COMPREHENSIVE METABOLIC PANEL (10/05/2017 10:19 AM KELP GATHERER) SODIUM 141 136 - 145 mmol/L 10/05/2017 11:32 AM [facility] [employer] [facility] POTASSIUM 5.0 3.5 - 5.0 mmol/L 10/05/2017 11:32 AM [facility] [employer] [facility] CHLORIDE 103 98 - 107 mmol/L 10/05/2017 11:32 AM [facility] CO2 26 22 - 29 mmol/L 10/05/2017 11:32 AM [facility] CALCIUM 9.5 8.6 - 10.2 mg/dL 10/05/2017 11:32 AM [facility] BUN 14 6 - 20 mg/dL 10/05/2017 11:32 AM [facility] CREATININE 1.49(H) 0.67 - 1.17 mg/dL 10/05/2017 11:32 AM [facility] GLUCOSE 80 74 - 99 mg/dL 10/05/2017 11:32 AM [facility] TOTAL PROTEIN 7.0 6.7 - 8.6 g/dL 10/05/2017 11:32 AM [facility] ALBUMIN 3.9 3.5 - 5.2 g/dL 10/05/2017 11:32 AM [facility] BILIRUBIN TOTAL 0.3 0.3 - 1.2 mg/dL 10/05/2017 11:32 AM [facility] ALKALINE PHOSPHATASE 64 40 - 129 U/L 10/05/2017 11:32 AM [facility] AST 25 <41 U/L 10/05/2017 11:32 AM [facility] ALT 19 <42 U/L 10/05/2017 11:32 AM [facility] GFR 51(L) >=60 mL/min/1.7 3 sq meter 10/05/2017 11:32 AM [facility] Comment: eGFR has not been validated for [...] GFR, >60 >=60 mL/min/1.7 3 sq meter 10/05/2017 11:32 AM [facility] ANION GAP 12 8 - 16 mmol/L 10/05/2017 11:32 AM [facility] Blood Venipuncture / Unknown 10/05/2017 10:19 AM KELP GATHERER 10/05/2017 10:30 AM KELP GATHERER Narrative [facility] - 10/05/2017 11:32 AM KELP GATHERER Samples containing indocyanine green cause interferences on Total and/or Direct Bilirubin and must not be measured. Lane Ryan MD CHEMISTRY ORDERABLES [facility] CLIA# [id number] [address] [place] [address] * C-REACTIVE PROTEIN (10/05/2017 10:19 AM KELP GATHERER) Pathologist [facility] CRP 3.2 <5.0 mg/L 10/05/2017 11:30 AM [facility] Blood Venipuncture / Unknown 10/05/2017 10:19 AM KELP GATHERER 10/05/2017 10:[address] Ryan MD CHEMISTRY ORDERABLES Performing Organization Address City/[facility]/ZIP Co de Phone Number [facility] CLIA# [id number] [address] [place] [address] * (ABNORMAL) CBC WITH DIFFERENTIAL (10/05/2017 10:19 AM KELP GATHERER) WBC 5.6 4.0 - 9.8 K/uL 10/05/2017 10:55 AM [facility] RBC 6.32(H) 4.50 - 5.40 M/uL 10/05/2017 10:55 AM [facility] HEMOGLOBIN 17.2(H) 13.6 - 16.5 g/dL 10/05/2017 10:55 AM [facility] HEMATOCRIT 54.7(H) 40.0 - 48.0 % 10/05/2017 10:55 AM [facility] MCV 86.6 82.0 - 99.0 fL 10/05/2017 10:55 AM [facility] MCH 27.2 27.2 - 32.6 pg 10/05/2017 10:55 AM [facility] MCHC 31.4(L) 31.5 - 35.5 g/dL 10/05/2017 10:55 AM [facility] RDW 13.2 11.5 - 14.5 % 10/05/2017 10:55 AM [facility] RDW-STDEV 41.2 37.1 - 48.7 fL 10/05/2017 10:55 AM [facility] PLATELETS 304 140 - 350 K/uL 10/05/2017 10:55 AM [facility] MPV 10.3 9.3 - 12.4 fL 10/05/2017 10:55 AM [facility] NEUTROPHILS 67 % 10/05/2017 10:55 AM [facility] LYMPHOCYTES 18 % 10/05/2017 10:55 AM [facility] MONOCYTES 12 % 10/05/2017 10:55 AM [facility] EOSINOPHILS 2 % 10/05/2017 10:55 AM [facility] BASOPHILS 1 % 10/05/2017 10:55 AM [facility] IMMATURE GRANULOCYTES 1 % 10/05/2017 10:55 AM [facility] Comment:IG (Immature Granulo cyte) count includes Metamyelocytes, Myelocytes, and Promyelocytes NEUTROPHIL ABSOLUTE 3.74 1.90 - 7.00 K/uL 10/05/2017 10:55 AM [facility] LYMPHOCYTE ABSOLUTE 1.01 0.70 - 4.50 K/uL 10/05/2017 10:55 AM [facility] MONOCYTE ABSOLUTE 0.66 0.10 - 1.30 K/uL 10/05/2017 10:55 AM [facility] EOSINOPHIL ABSOLUTE 0.12 0.00 - 0.70 K/uL 10/05/2017 10:55 AM [facility] BASOPHILS ABSOLUTE 0.04 0.00 - 0.20 K/uL 10/05/2017 10:55 AM KELP GATHERER [facility] - [facility] IMMATURE GRANULOCYTES ABSOLUTE 0.03 0.00 - 0.03 K/uL 10/05/2017 10:55 AM KELP GATHERER [facility] Blood Venipuncture / Unknown 10/05/2017 10:19 AM KELP GATHERER 10/05/2017 10:[address] Ryan MD HEMATOLOGY ORDERABLE S [facility] CLIA# [id number] [address] [facility] [place] [address] documented in this encounter Visit Diagnoses Diagnosis Inflammatory bowel disease Other and unspecified noninfectious gastroenteritis and colitis documented in this encounter Care Teams Computing Systems Mechanic Relationship Specialty Start Date End Date Jasiel Freeman MD 5 [place] [address] PCP - General Family Practice 08/15/17 documented as of this encounter
--- OUTSIDE RECORDS SUMMARY | 2024-10-24 05:32 | XMS_ITS | Encounter Summary ---
Author Organization [facility] Address , [place] Care Team Providers Care Autocad Designer Name Role Phone Jasiel Freeman MD Primary Care Provider Encounter Details Date Type Department Care Team (Late st Contact Info) Description 01/22/[address], [address] [place] [address] John Avina PHARMACIST Social History [...] Miscellaneous Notes * Telephone Encounter - John Avina PHARMACIST - 01/22/2019 10:24 AM CDT Images from the original note were not included. [facility] Specialty & Infusion - [place] Edgardo Elkins 48 y.o. / male Patient's address on file: [address] [place] [id number] Home Phone Work Phone Home Infusion Order [...] (through 05/26/19) Per: Caren / KESHA Whitney [facility] Gastroenterology [address], [address] [place] [address] Generic substitution permitted Detailed Home Infusion Orders [...] RN will take any ordered labs to [facility] when possible. If labs are not taken to a [facility] lab, it is the responsibility of nursing to make sure labs are faxed to the pharmacy at [phone] Whitney. Catheter Care Catheter type: PIV placed by SMOKE INSPECTOR prior to each infusion Flush IV [...] lab draws/line complications. ?? Flushes provided by [facility] Specialty and Infusion pharmacy are for [...] Elkins (48 y.o. male) is active with [facility] Specialty and Infusion services receiving Entyvio every 8 weeks at home for ulcerative colitis. ?? Edgardo is due for his next infusion this week. Pharmacist contacted SMOKE INSPECTOR to coordinate delivery. RN will spanish moss picker today. Patient received last infusion without [...] Whitney Home Infusion Care Team IV Pharmacy: [facility] / [phone] Nursing Agency: [facility] Physician(s): Dr. Whitney Additional Relevant Data Insurance Information: Payor: AETNA / Plan: AETNA CHOICE POS II / Product Type: Commercial / Note: This is the primary coverage, but no account was found for this location or the patient's primary location. IV access PIV placed by SMOKE INSPECTOR prior to each infusion Ht Readings from Last 3 Encounters: 12/14/17 5' 9 (1.753 m) 08/24/17 5' 9 [...] by intraveous injection see administration instructions Home SMOKE INSPECTOR to administer over 30 minutes every [...] teaching sheets ?? Drug information paperwork - [facility] patient leaflet John Avina PHARMACIST [facility] & Infusion [facility] [address] [place] [address] documented in this encounter Plan of Treatment Upcoming Encounters Date Type Department Care Team (Late st Contact Info) Description 02/13/2025 10:30 AM CDT Office Visit [facility] IBD and Gastroenterology Center [place] [address] [facility] [address] [place] [address] Kitty Dover, MIRTA [address] [place] [address] [place] [address] documented as of this encounter Visit Diagnoses Not on filedocumented in this encounter Care Teams Autocad Designer Relationship Specialty Start Date End Date Jasiel Freeman MD 5 [place] [address] PCP - General Family Practice 08/15/17 documented as of this encounter
--- OUTSIDE RECORDS SUMMARY | 2024-10-24 05:32 | XMS_ITS | Encounter Summary ---
Author Organization [facility] Address [address] [place] [address] Care Team Providers Care Bioprocess Engineer Name Role Phone Jasiel Freeman MD Primary Care Provider Encounter Details Date Type Department Care Team (Late st Contact Info) Description 12/27/2018 Abstract [facility] Gastroenterology [place] A [address] [place] [address] Lane Ryan MD NO ADDRESS [...] Description 02/13/2025 10:30 AM CDT Office Visit [facility] IBD and Gastroenterology Center [place] [address] [place] [address] Kitty Dover ANP [address] [place] [address] documented as of this encounter Visit Diagnoses Not on filedocumented in this encounter Care Teams Bioprocess Engineer Relationship Specialty Start Date End Date Jasiel Freeman MD 5 [place] [address] PCP - General Family Practice 08/15/17 documented as of this encounter
--- OUTSIDE RECORDS SUMMARY | 2024-10-24 05:32 | XMS_ITS | Encounter Summary ---
Author Organization [facility] Address [address] [place] [address] Care Team Providers Care Textile Dyer Name Role Phone Jasiel Freeman MD Primary Care Provider Encounter Details Date Type Department Care Team (Late st Contact Info) Description 09/19/2017 Orders Only [facility] GASTROENTEROLOGY [address] [facility] [address] [place] [address] Lane Ryan MD NO ADDRESS [...] as of this encounter Progress Notes * Lane Ryan MD - 09/19/2017 4:32 PM CST ATOR REPAIR MECHANIC documented in this encounter Plan of Treatment Upcoming Encounters Date Type Department Care Team (Late st Contact Info) Description 02/13/2025 10:30 AM CDT Office Visit [facility] IBD and Gastroenterology Center [place] [address] [place] [address] Kitty Dover ANP [address] [facility] [address] [place] [address] documented as of this encounter Visit Diagnoses Not on filedocumented in this encounter Care Teams Textile Dyer Relationship Specialty Start Date End Date Jasiel Freeman MD [address] [place] [address] PCP - General Family Practice 08/15/17 documented as of this encounter
--- OUTSIDE RECORDS SUMMARY | 2024-10-24 05:32 | XMS_ITS | Encounter Summary ---
Author Organization [facility] Address [address] [place] [address] Care Team Providers Care Adjunct Teacher Name Role Phone Jasiel Freeman MD Primary Care Provider [phone] Reason for Visit * Reason Onset Date Comments Insurance Issues 10/25/2017 Encounter Details Date Type Department Care Team (Late st Contact Info) Description 10/25/2017 Telephone [facility] [address] [place] [address] Thanh Solares, PHARMACIST Insurance Issues [...] Telephone Encounter - Thanh Solares, PHARMACIST - 10/25/2017 3:28 PM SHADE MAKER [facility] Specialty & Infusion [place] Progress Note Our office received updated orders for Sterlara for this patient. An appeal letter was written and submitted to the insurance company following a denial of the initial authorization request. [facility] [id number] [place] [address], [address] [place] [address] E MAKER documented in this encounter Plan of Treatment Upcoming Encounters Date Type Department Care Team (Late st Contact Info) Description 02/13/2025 10:30 AM CDT Office Visit [facility] IBD and Gastroenterology Center [place] [address] [place] [address] Kitty Dover ANP [address] [place] [address] [place] [address] documented as of this encounter Visit Diagnoses Not on filedocumented in this encounter Care Teams Adjunct Teacher Relationship Specialty Start Date End Date Jasiel Freeman MD [address] [place] [phone] PCP - General Family Practice 08/15/17 documented as of this encounter
--- OUTSIDE RECORDS SUMMARY | 2024-10-24 05:32 | XMS_ITS | Encounter Summary ---
Author Organization [facility] Address , [place] Care Team Providers Care Supervisor Cigar Making Machine Name Role Phone Jasiel Freeman MD Primary Care Provider Encounter Details Date Type Department Care Team (Late st Contact Info) Description 04/18/[address], [address] [place] [address] John Avina PHARMACIST Social History [...] Telephone Encounter - John Avina PHARMACIST - 04/18/2018 3:26 PM CDT [facility] Specialty & Home [facility] [employer] Care Plan Demographics Edgardo Elkins 47 y.o. / male Patient's address [address]: [address] [place] [address] Patient's current location: Same as above Patient Contact Information: Home Phone Work Phone [phone] Insurance Information: Aetna Choice POS II Home Infusion Care Team IV Pharmacy: [facility] / [phone] Nursing: [facility] Physician(s): Dr. Lane Ryan IV access PIV placed by RN prior to each infusion Progress Note Patient admitted to [facility] services upon referral from physician. Patient to receive Entyvio at home every 8 weeks for ulcerative colitis. Edgardo is due for his next infusion this week. Pharmacist contacted SPECIALIST EMPLOYEE LABOR RELATIONS Ebony to coordinate delivery. Will send medication to SPECIALIST EMPLOYEE [employer]OR [employer] and she will bring with her. Additional [...] by intraveous injection see administration instructions Home SPECIALIST EMPLOYEE LABOR RELATIONS to administer over 30 minutes every 8 [...] Pharmacy Assessment, Plan and Follow-Up Evaluation Date 04/18/2018 Condition / Problem Ulcerative colitis Goal(s) Maintain remission of ulcerative colitis and prevent future flares Minimal side effects related to infusion Intervention(s) Entyvio Monitoring Patient progress; MD assessment Status Ongoing Date 04/18/2018 Condition/ Problem Patient/Caregiver education (potential problem) Goal Patient/Caregiver will understand: Purpose of medication Method of administration Risk associated with therapy Proper storage of medication and supplies Proper disposal of medication and supplies Intervention(s) RN and pharmacist will provide routine and repeated instruction Written materials provided. Status Ongoing Date 04/18/2018 Condition / Problem IV access (potential problem) Goal Patient is free of catheter related infection. IV access will remain patent for duration of need Intervention(s) Educate patient/caregiver regarding proper care of IV catheter Monitor patient for possible fever Monitor any relevant lab work Status Ongoing Discharge Plan Indefinite at this time This pharmacy plan of care updated and reviewed by FADI Ulloa [facility] Specialty & Home Infusion [address] , [address] [place] [address] documented in this encounter Plan of Treatment Upcoming Encounters Date Type Department Care Team (Late st Contact Info) Description 02/13/2025 10:30 AM CDT Office Visit [facility] IBD and Gastroenterology Center [place] [address] [facility] [place] [address] Kitty Dover, MIRTA [address] [place] [address] documented as of this encounter Visit Diagnoses Not on filedocumented in this encounter Care Teams Supervisor Cigar Making Machine Relationship Specialty Start Date End Date Jasiel Freeman MD [address] [place] [address] PCP - General Family Practice 08/15/17 documented as of this encounter
--- OUTSIDE RECORDS SUMMARY | 2024-10-24 05:32 | XMS_ITS | Encounter Summary ---
Author Organization [facility] Address [address] [place] [address] Care Team Providers Care Mixing Machine Tender Cork Gasket Name Role Phone Jasiel Freeman MD Primary Care Provider Reason for Visit * Reason Onset Date Comments Medication Refill 06/04/2018 Encounter Details Date Type Department Care Team (Late st Contact Info) Description 06/04/2018 Refill [facility] GASTROENTEROLOGY [address] [facility] [address] [place] [address] Lane Ryan MD NO ADDRESS [...] Center [place] [address] [place] [address] Kitty [place], ANP [address] [facility] [address] [place] [address] documented as of this encounter Visit Diagnoses Not on filedocumented in this encounter Care Teams Mixing Machine Tender Cork Gasket Relationship Specialty Start Date End Date Jasiel Freeman MD [address] [place] [phone] PCP - General Family Practice 08/15/17 documented as of this encounter
--- OUTSIDE RECORDS SUMMARY | 2024-10-24 05:32 | XMS_ITS | Encounter Summary ---
Author Organization [facility] Address [address] [place] [address] Care Team Providers Care Insulation Inspector Name Role Phone Jasiel Freeman MD Primary Care Provider Encounter Details Date Type Department Care Team (Late st Contact Info) Description 05/23/2018 Abstract [facility] GASTROENTEROLOGY [address] [place] [address] Lane Ryan MD NO ADDRESS [...] [facility]astro[facility]ology Center [place] [address] [place] [address] Kitty Dover, MIRTA [address] [place] [address] documented as of this encounter Visit Diagnoses Not on filedocumented in this encounter Care Teams Insulation Inspector Relationship Specialty Start Date End Date Jasiel Freeman MD [address] [place] [address] PCP - General Family Practice 08/15/17 documented as of this encounter
--- OUTSIDE RECORDS SUMMARY | 2024-10-24 05:32 | XMS_ITS | Encounter Summary ---
Author Organization [facility] Address [address] [place] [address] Care Team Providers Care Auto Damage Appraiser Name Role Phone Jasiel Freeman MD Primary Care Provider Reason for Visit * Reason Onset Date Comments Insurance Issues 12/06/2017 Encounter Details Date Type Department Care Team (Late st Contact Info) Description 12/06/2017 [facility] [address] [place] [address] Thanh Solares, PHARMACIST Insurance Issues [...] Telephone Encounter - Thanh Solares, PHARMACIST - 12/06/2017 9:23 AM BIOINFORMATICS SPECIALIST [facility] Story Progress Note Our office received a 2nd level denial of the authorization request for Marielena. A message was sentto the MD office for their review. [facility] - Story [id number] [facility], [address] [place] [address] NFORMATICS SPECIALIST documented in this encounter Plan of Treatment Upcoming Encounters Date Type Department Care Team (Late st Contact Info) Description 02/13/2025 10:30 AM CDT Office Visit [facility] [place] [address] [place] [address] Kitty Dover, MIRTA [address] [place] [address] documented as of this encounter Visit Diagnoses Not on filedocumented in this encounter Care Teams Auto Damage Appraiser Relationship Specialty Start Date End Date Jasiel Freeman MD [address] [place] [phone] PCP - General Family Practice 08/15/17 documented as of this encounter
--- OUTSIDE RECORDS SUMMARY | 2024-10-24 05:32 | XMS_ITS | Encounter Summary ---
Author Organization [facility] Address [address] [place] [address] Care Team Providers Care Sweatband Shaper Name Role Phone Jasiel Freeman MD Primary Care Provider [phone] Encounter Details Date Type Department Care Team (Late st Contact Info) Description 12/07/2017 Abstract [facility] [address] [place] [address] Lane Ryan MD NO ADDRESS [...] System [facility] G[facility] [place] [address] [place] [address] Kitty Dover, MIRTA [address] [place] [address] documented as of this encounter Visit Diagnoses Not on filedocumented in this encounter Care Teams Sweatband Shaper Relationship Specialty Start Date End Date Jasiel Freeman MD [address] [place] [address] PCP - General Family Practice 08/15/17 documented as of this encounter
--- OUTSIDE RECORDS SUMMARY | 2024-10-24 05:32 | XMS_ITS | Encounter Summary ---
Author Organization [facility] Address [address] [place] [address] Care Team Providers Care Veterinary Medical Officer Name Role Phone Jasiel Freeman MD Primary Care Provider Reason for Visit * Reason Comments Follow Up Encounter Details Date Type Department Care Team (Latest Contact Info) Description 10/05/2017 9:30 AM R AND D LAB TECHNICIAN Office Visit [facility] GASTR[facility]OLOGY [address] [facility] [address] [place] [address] Lane Ryan MD NO ADDRESS ON FILE Inflammatory bowel disease (Primary Dx); Crohn's disease of small intestine with other complication Social History Tobacco Use Types Packs/Day [...] Sign Reading Time Taken Comments Blood Pressure 131/92 10/05/2017 9:26 AM R AND D LAB TECHNICIAN Pulse 86 10/05/2017 9:26 AM R AND D LAB TECHNICIAN Temperature - - Respiratory Rate - - Oxygen Saturation 97% 10/05/2017 9:26 AM R AND D LAB TECHNICIAN Inhaled Oxygen Concentration - - Weight 87.5 kg (192 lb 12.8 oz) 10/05/2017 9:26 AM R AND D LAB TECHNICIAN Height 175.3 cm (5' 9 ) 10/05/2017 9:26 AM R AND D LAB TECHNICIAN Body Mass Index 28.47 10/05/2017 9:26 AM R AND D LAB TECHNICIAN documented in this encounter Progress Notes * Lane Ryan MD - 10/05/2017 10:11 AM CST 10/05/2017 Jasiel Freeman MD PROGRESS NOTE: Edgardo Elkins Date of 1970 HPI: 47-year-old male seen in followup for inflammatory bowel disease. 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 Rizo, and developed a anal stricture. 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 He had been maintained on Humira. However, recent endoscopy shows severe ulcerations of the pouch, and into the small intestine several centimeters. adalimumab blood levels were satisfactory with negative antibodies. He is felt to be a candidate for a switch him biologics and have plan to begin stelara. At this time. He is doing reasonably well. He denies abdominal pain. He has no gross bleeding. He has frequent bowel motions four or more a day. A left hip replacement surgery had been planned. Patient was incontinent at the time of the procedure which was canceled. He is holding his Humira now.he was to take Flagyl 250 3 times a day to coverhim during the perioperative period Current Outpatient Prescriptions: metroNIDAZOLE (FLAGYL) 250 mg tablet, Take 1 Tablet (250 mg) by mouth 3 times daily., Disp: 90 Tablet, Rfl: 0 TESTOSTERONE, BULK, MISC, 1 mL by Misc.(Non-Drug; Combo Route) route., Disp: , Rfl: HUMIRA 40 mg/0.8 mL Syringe Kit, INJECT 1 SYRINGE (40MG) SUBCUTANEOUSLY WEEKLY - REFRIGERATE DO NOT FREEZE, Disp: 12 Kit, Rfl: 1 adalimumab (HUMIRA) 40 mg/0.8 mL Syringe Kit, Inject 0.8 mL (40 mg) by subcutaneous injection see administration instructions Provide pens., Disp: 2 Each, Rfl: 6 adalimumab (HUMIRA) 40 mg/0.8 mL Kit, Inject 0.8 mL by subcutaneous injection see administration instructions., Disp: 2 Each, Rfl: 6 No current facility-administered medications for this visit. -- Remicade [Infliximab] -- Rash REVIEW OF SYSTEMS: Constitutional: denies fevers, chills, sweats, fatigue, malaise, anorexia, weight loss Eye: denies cataracts, glaucoma, visual disturbance, irritation, color issues Ear, Nose, Mouth, Throat: denies hearing loss, tinnitus, ear issues, nasal congestion, epistaxis, snoring, neck mass, oral issues, hoarse voice Respiratory: denies cough, dyspnea, hemoptysis, stridor, wheeze, chest pain Cardiovascular: denies chest pain or discomfort, exertional chest pressure/discomfort, fatigue, pounding heart/chest, nausea, syncope, shortness of breath Gastrointestinal: see present illness Genitourinary: denies dysuria, frequency, hematuria, hesitancy, nocturia, urinary incontinence Musculoskeletal: see present illness Neurological: denies blurry or disturbed vision, gait problems, dizziness, difficulty swallowing, muscle weakness, difficulty saying words Behavior, Psychologic: denies aggressive or problematic behavior, anxiety, mood issues, substance use, learning difficulty, unusual fears Endocrine: denies sudden changes in mood, temperature intolerance, polyuria, polydipsia, skin changes PHYSICAL EXAM: BP (!) 131/92 Pulse 86 Ht 5' 9 (1.753 m) Wt 87.5 kg (192 lb 12.8 oz) SpO2 97% BMI 28.47 kg/m?? GENERAL: Well developed and in no acute distress. SKIN: Skin was without lesions. EYES: HEENT examination was unrevealing. Conjunctivae were pink and sclerae were anicteric. MOUTH: Moist mucous membranes. NECK: Neck is supple without thyromegaly or adenopathy. HEART: Cardiac examination revealed regular rate and rhythm. There was no pathologic murmur, click or rub. LUNGS: Clear without signs of consolidation or wheezing ABDOMEN: Soft bland nontender RECTAL: Deferred EXTREMITIES: Extremities were without edema. There was no active synovitis. NEURO: Neurologic exam was grossly non-focal. ASSESSMENT: Severe pouchitis./Suspected Crohn's disease PLAN: Will plan for stelara Continue Flagyl for now. Advised to take Lomotil before his surgery in the hip. Will check labs Edgardo was seen today for follow up. Diagnoses and associated orders for this visit: ??? Inflammatory bowel disease CBC WITH DIFFERENTIAL; Future C-REACTIVE PROTEIN; Future COMPREHENSIVE METABOLIC PANEL; Future QUANTIFERON TB GOLD; Future HEPATITIS B SURFACE ANTIGEN; Future Lane Ryan MD R AND D LAB TECHNICIAN documented in this encounter Plan of Treatment Upcoming Encounters Date Type Department Care Team (Late st Contact Info) Description 02/13/2025 10:30 AM CDT Office Visit [facility] IBD and Gastroenterology Center [place] [address] [place] [address] Kitty Dover ANP [address] [place] [address] [place] [address] documented as of this encounter Results * HEPATITIS B SURFACE ANTIGEN (10/05/2017 10:19 AM R AND D LAB TECHNICIAN) Pathologist [facility] HEPATITIS B SURFACE AG NON-REACTI VE Non-reacti ve 10/05/2017 12:30 PM R AND D LAB TECHNICIAN [facility] Blood Venipuncture / Unknown 10/05/2017 10:19 AM R AND D LAB TECHNICIAN 10/05/2017 10:30 AM R AND D LAB TECHNICIAN Lane Ryan MD CHEMISTRY ORDERABLES [facility]# [id number] [address] [facility] [place] [address] * QUANTIFERON TB GOLD (10/05/2017 10:19 AM R AND D LAB TECHNICIAN) Pathologist [facility] QUANTIFERON(R)-TB GOLD Negative Negative 10/09/2017 12:57 PM R AND D LAB TECHNICIAN [facility] Comment: No interferon-gamma response to M. tuberculosis antigens was detected. Infection with M. tuberculosis is unlikely. A negative result alone does not exclude infection with M. tuberculosis. For detailed information regarding test interpretation see: [email or web address]/test-catalog/ Clinical+and+Interpretive/89287 QuantiFERON TB Ag Value 0.00 IU/mL 10/09/2017 12:57 PM R AND D LAB TECHNICIAN [facility] MITOGEN-NIL >10.00 IU/mL 10/09/2017 12:57 PM R AND D LAB TECHNICIAN [facility] NIL 0.04 IU/mL 10/09/2017 12:57 PM R AND D LAB TECHNICIAN [facility] Comment: Test Performed by: [facility] [address] [place] [address] Blood Venipuncture / Unknown 10/05/2017 10:19 AM R AND D LAB TECHNICIAN 10/05/2017 10:30 AM R AND D LAB TECHNICIAN Lane Ryan MD CHEMISTRY ORDERABLES [facility] * (ABNORMAL) COMPREHENSIVE METABOLIC PANEL (10/05/2017 10:19 AM R AND D LAB TECHNICIAN) SODIUM 141 136 - 145 mmol/L 10/05/2017 11:32 AM [facility] POTASSIUM 5.0 3.5 - 5.0 mmol/L 10/05/2017 11:32 AM [facility] CHLORIDE 103 98 - 107 mmol/L 10/05/2017 11:32 AM [facility] CO2 26 22 - 29 mmol/L 10/05/2017 11:32 AM [facility] CALCIUM 9.5 8.6 - 10.2 mg/dL 10/05/2017 11:32 AM [facility] BUN 14 6 - 20 mg/dL 10/05/2017 11:32 AM [facility] CREATININE 1.49(H) 0.67 - 1.17 mg/dL 10/05/2017 11:32 AM [facility] GLUCOSE 80 74 - 99 mg/dL 10/05/2017 11:32 AM [facility] TOTAL PROTEIN 7.0 6.7 - 8.6 g/dL 10/05/2017 11:32 AM [facility] ALBUMIN 3.9 3.5 - 5.2 g/dL 10/05/2017 11:32 AM [facility] BILIRUBIN TOTAL 0.3 0.3 - 1.2 mg/dL 10/05/2017 11:32 AM [facility] ALKALINE PHOSPHATASE 64 40 - 129 U/L 10/05/2017 11:32 AM [facility] AST 25 <41 U/L 10/05/2017 11:32 AM [facility] ALT 19 <42 U/L 10/05/2017 11:32 AM [facility] GFR 51(L) >=60 mL/min/1.7 3 sq meter 10/05/2017 11:32 AM [facility] Comment: eGFR has not been validated for [...] mL/min/1.7 3 sq meter 10/05/2017 11:32 AM [facility] ANION GAP 12 8 - 16 mmol/L 10/05/2017 11:32 AM [facility] Blood Venipuncture / Unknown 10/05/2017 10:19 AM R AND D LAB TECHNICIAN 10/05/2017 10:30 AM [facility] - 10/05/2017 11:32 AM [facility] Samples containing indocyanine green cause interferences on Total and/or Direct Bilirubin and must not be measured. Lane Ryan MD CHEMISTRY ORDERABLES [facility]# [id number] [address] [facility] [place] [address] * C-REACTIVE PROTEIN (10/05/2017 10:19 AM R AND D LAB TECHNICIAN) CRP 3.2 <5.0 mg/L 10/05/2017 11:30 AM [facility] Blood Venipuncture / Unknown 10/05/2017 10:19 AM R AND D LAB TECHNICIAN 10/05/2017 10:30 AM R AND D LAB TECHNICIAN Lane Ryan MD CHEMISTRY ORDERABLES [facility] CLIA# [id number] [address] [place] [address] * (ABNORMAL) CBC WITH DIFFERENTIAL (10/05/2017 10:19 AM R AND D LAB TECHNICIAN) WBC 5.6 4.0 - 9.8 K/uL 10/05/2017 10:55 AM [facility] [employer] [facility] RBC 6.32(H) 4.50 - 5.40 M/uL 10/05/2017 10:55 AM R AND D LAB TECHNICIAN [facility] HEMOGLOBIN 17.2(H) 13.6 - 16.5 g/dL 10/05/2017 10:55 AM [facility] HEMATOCRIT 54.7(H) 40.0 - 48.0 % 10/05/2017 10:55 AM R AND D LAB TECHNICIAN [facility] MCV 86.6 82.0 - 99.0 fL 10/05/2017 10:55 AM [facility] MCH 27.2 27.2 - 32.6 pg 10/05/2017 10:55 AM [facility] MCHC 31.4(L) 31.5 - 35.5 g/dL 10/05/2017 10:55 AM [facility] RDW 13.2 11.5 - 14.5 % 10/05/2017 10:55 AM [facility] RDW-STDEV 41.2 37.1 - 48.7 fL 10/05/2017 10:55 AM [facility] PLATELETS 304 140 - 350 K/uL 10/05/2017 10:55 AM [facility] MPV 10.3 9.3 - 12.4 fL 10/05/2017 10:55 AM [facility] NEUTROPHILS 67 % 10/05/2017 10:55 AM [facility] LYMPHOCYTES 18 % 10/05/2017 10:55 AM [facility] [employer] [facility] MONOCYTES 12 % 10/05/2017 10:55 AM [facility] [employer] [facility] EOSINOPHILS 2 % 10/05/2017 10:55 AM [facility] [employer] [facility] BASOPHILS 1 % 10/05/2017 10:55 AM [facility] [employer] [facility] IMMATURE GRANULOCYTES 1 % 10/05/2017 10:55 AM [facility] Comment:IG (Immature Granulo cyte) count includes Metamyelocytes, Myelocytes, and Promyelocytes NEUTROPHIL ABSOLUTE 3.74 1.90 - 7.00 K/uL 10/05/2017 10:55 AM [facility] LYMPHOCYTE ABSOLUTE 1.01 0.70 - 4.50 K/uL 10/05/2017 10:55 AM [facility] MONOCYTE ABSOLUTE 0.66 0.10 - 1.30 K/uL 10/05/2017 10:55 AM [facility] EOSINOPHIL ABSOLUTE 0.12 0.00 - 0.70 K/uL 10/05/2017 10:55 AM [facility] BASOPHILS ABSOLUTE 0.04 0.00 - 0.20 K/uL 10/05/2017 10:55 AM [facility] . [facility] IMMATURE GRANULOCYTES ABSOLUTE 0.03 0.00 - 0.03 K/uL 10/05/2017 10:55 AM [facility] Blood Venipuncture / Unknown 10/05/2017 10:19 AM R AND D LAB TECHNICIAN 10/05/2017 10:42 AM R AND D LAB TECHNICIAN Lane Ryan MD HEMATOLOGY ORDERABLE [place] [employer] [facility] CLIA# [id number] [address] [place] [address] documented in this encounter Visit Diagnoses Diagnosis Inflammatory bowel disease- Primary Other and unspecified noninfectious gastroenteritis and colitis Crohn's disease of small intestine with other complication documented in this encounter Care Teams Veterinary Medical Officer Relationship Specialty Start Date End Date Jasiel Freeman MD [address] [place] [phone] PCP - General Family Practice 08/15/17 documented as of this encounter
--- OUTSIDE RECORDS SUMMARY | 2024-10-24 05:32 | XMS_ITS | Encounter Summary ---
Author Organization [facility] Address [address] [place] [address] Care Team Providers Care Escrow Closer Name Role Phone Jasiel Freeman MD Primary Care Provider Encounter Details Date Type Department Care Team (Late st Contact Info) Description 10/05/2017 Abstract [facility] GASTROENTEROLOGY [address] [facility] [address] [address] [place] [address] Lane Ryan MD NO ADDRESS [...] Description 02/13/2025 10:30 AM CDT Office Visit [facility] IBD and Gastroenterology Center [place] [address] [place] [address] Kitty Dover, MIRTA [address] [place] [address] documented as of this encounter Visit Diagnoses Not on filedocumented in this encounter Care Teams Escrow Closer Relationship Specialty Start Date End Date Jasiel Freeman MD [address] [place] [address] PCP - General Family Practice 08/15/17 documented as of this encounter
--- OUTSIDE RECORDS SUMMARY | 2024-10-24 05:32 | XMS_ITS | Encounter Summary ---
Author Organization [facility] Address [address] [place] [address] Care Team Providers Care Electric Motor Rebuilder Name Role Phone Jasiel Freeman MD Primary Care Provider [phone] Reason for Visit * Reason Onset Date Comments SHAGGY Peguero 11/06/2017 Encounter Details Date Type Department Care Team (Late st Contact Info) Description 11/06/2017 Telephone [facility] GASTROENTEROLOGY [address] [facility] [address] [place] [address] Lane Ryan MD NO ADDRESS ON FILE SHAGGY Peguero Social History Tobacco Use Types Packs/Day Years [...] * Telephone Encounter - Ada Tan - 11/06/2017 1:51 PM CST Pharmacy calling to let us know they are putting script on hold for know until we get PA approved for injections. We can call them to let them know PA was recd once we obtain or send in new script but new script is not needed. NDERER documented in this encounter Plan of Treatment Upcoming Encounters Date Type Department Care Team (Late st Contact Info) Description 02/13/2025 10:30 AM CDT Office Visit [facility] IBD and Gastroenterology Center [place] [address] [place] [address] Kitty Dover, MIRTA [address] [address] [place] [address] documented as of this encounter Visit Diagnoses Not on filedocumented in this encounter Care Teams Electric Motor Rebuilder Relationship Specialty Start Date End Date Jasiel Freeman MD [address] [place] [phone] PCP - General Family Practice 08/15/17 documented as of this encounter
--- OUTSIDE RECORDS SUMMARY | 2024-10-24 05:32 | XMS_ITS | Encounter Summary ---
Author Organization [facility] Address [address] [place] [address] Care Team Providers Care Air Export Coordinator Name Role Phone Jasiel Freeman MD Primary Care Provider Encounter Details Date Type Department Care Team (Late st Contact Info) Description 09/22/2017 Abstract [facility] GASTR[facility]OLOGY [address] [place] [address] Lane Ryan MD NO ADDRESS [...] 02/13/2025 10:30 AM CDT Office Visit [facility] [place] [address] [place] [address] Kitty Dover, MIRTA [address] [place] [address] documented as of this encounter Visit Diagnoses Not on filedocumented in this encounter Care Teams Air Export Coordinator Relationship Specialty Start Date End Date Jasiel Freeman MD [address] [place] [address] PCP - General Family Practice 08/15/17 documented as of this encounter
--- OUTSIDE RECORDS SUMMARY | 2024-10-24 05:32 | XMS_ITS | Encounter Summary ---
Author Organization [facility] Address [address] [place] [address] Care Team Providers Care Discharging Machine Operator Name Role Phone Jasiel Freeman MD Primary Care Provider Reason for Visit * Reason Comments Medication Refill Encounter Details Date Type Department Care Team (Late st Contact Info) Description 11/12/2018 Refill [facility] GASTROENTEROLOGY [address] [facility] [address] [place] [address] Lane Ryan MD NO ADDRESS [...] * Telephone Encounter - Ada Tan - 11/13/2018 9:43 AM CST LM for pt to inform him this cannot be filled until he est care with Dr Nair since its been over a year since he has been seen. Or he can ask PCP to fill. OR PHP DEVELOPER * Telephone Encounter - Annette Whitney MD - 11/12/2018 2:29 PM JUNIOR PHP DEVELOPER Needs appointment with me or can get from PCP. This is now controlled substance so I cannot fill since his last apt was >1 year ago OR PHP DEVELOPER documented in this encounter Plan of Treatment Upcoming Encounters Date Type Department Care Team (Late st Contact Info) Description 02/13/2025 10:30 AM CDT Office Visit [facility] IBD and Gastroenterology Center [place] [address] [place] [address] Kitty Dover, MIRTA [address] [place] [address] [place] [address] documented as of this encounter Visit Diagnoses Not on filedocumented in this encounter Care Teams Discharging Machine Operator Relationship Specialty Start Date End Date Jasiel Freeman MD [address] [place] [phone] PCP - General Family Practice 08/15/17 documented as of this encounter
--- OUTSIDE RECORDS SUMMARY | 2024-10-24 05:32 | XMS_ITS | Encounter Summary ---
Author Organization [facility] Address [address] [place] [address] Care Team Providers Care Transport Manager Name Role Phone Jasiel Freeman MD Primary Care Provider Encounter Details Date Type Department Care Team (Late st Contact Info) Description 11/20/2017 Abstract [facility] GASTROENTEROLOGY [address] [place] [address] Lane Ryan MD NO ADDRESS [...] [facility] [place] [address] [place] [address] Kitty Dover, MIRTA [address] [place] [address] documented as of this encounter Visit Diagnoses Not on filedocumented in this encounter Care Teams Transport Manager Relationship Specialty Start Date End Date Jasiel Freeman MD [address] [place] [address] PCP - General Family Practice 08/15/17 documented as of this encounter
--- OUTSIDE RECORDS SUMMARY | 2024-10-24 05:32 | XMS_ITS | Encounter Summary ---
Author Organization [facility] Address , [place] Care Team Providers Care Pump Room Operator Name Role Phone Jasiel Freeman MD Primary Care Provider Reason for Visit * Reason Onset Date Comments IV Med 2018 Encounter Details Date Type Department Care Team (Late st Contact Info) Description 2018 Telephone [facility] [address] [place] [address], [address] [place] [address] Jameson Borja, PHARMACIST IV Med Social History Tobacco Use Types Packs/Day Years [...] encounter Miscellaneous Notes * Telephone Encounter - Jameson Borja, PHARMACIST - 2018 5:15 PM EDUCATIONAL COORDINATOR [facility] Specialty & [facility] [place] [employer] Care Plan Demographics Edgardo Elkins 48 y.o. / male Patient's address on file: [address] [place] [address] Patient's current location: Same as above Patient Contact Information: Home Phone Work Phone Insurance Information: [employer] Choice POS II Home Infusion Care Team IV Pharmacy: [facility] / [phone] Nursing: [facility] Physician(s): Dr. Lane Ryan IV access PIV placed by RN prior to each infusion Progress Note Patient admitted to IT services upon referral from physician. Patient to receive Entyvio at home every 8 weeks for ulcerative colitis. Edgardo is due for his next infusion tomorrow. Pharmacist contacted ZMT OPERATOR Ebony to coordinate delivery. Will send medication to ZMT OPERATOR and she will bring with her. 10/01/18 - Pharmacist made contact with patient today to assess IV therapy progress and coordinate the next delivery. Patient received IVs with no reported complications. No questions or concerns about infusion therapy at this time. Additional Relevant Information Actual Body Weight: 87.5 [...] bowel disease K52.9 Current Outpatient Prescriptions: ??? metroNIDAZOLE (FLAGYL) 500 mg tablet, Take 1 Tablet (500 mg) by mouth 3 times daily., Disp: 30 Tablet, Rfl: 0 ??? diphenoxylate-atropine (LOMOTIL) 2.5-0.025 mg tablet, Take 1 Tablet by mouth 4 times daily as needed for Diarrhea/Loose Stools., Disp: 60 Tablet, Rfl: 1 ??? vedolizumab (ENTYVIO) 300 mg Recon Soln, Inject 300 mg by intraveous injection see administration instructions Home ZMT OPERATOR to administer over 30 minutes every [...] Pharmacy Assessment, Plan and Follow-Up Evaluation Date 2018 Condition / Problem Ulcerative colitis Goal(s) Maintain remission of ulcerative colitis and prevent future flares Minimal side effects related to infusion Intervention(s) Entyvio Monitoring Patient progress; MD assessment Status Ongoing Date 2018 Condition/ Problem Patient/Caregiver education (potential problem) Goal Patient/Caregiver will understand: Purpose of medication Method of administration Risk associated with therapy Proper storage of medication and supplies Proper disposal of medication and supplies Intervention(s) RN and pharmacist will provide routine and repeated instruction Written materials provided. Status Ongoing Date 2018 Condition / Problem IV access (potential problem) Goal Patient is free of catheter related infection. IV access will remain patent for duration of need Intervention(s) Educate patient/caregiver regarding proper care of IV catheter Monitor patient for possible fever Monitor any relevant lab work Status Ongoing Discharge Plan Indefinite at this time This pharmacy plan of care updated and reviewed by Jameson Borja, PHARMACIST [facility] Specialty & Home Infusion [address] , [address] [place] [address] ATIONAL COORDINATOR documented in this encounter Plan of Treatment Upcoming Encounters Date Type Department Care Team (Late st Contact Info) Description 02/13/2025 10:30 AM CDT Office Visit [facility] IBD and Gastroenterology Center [place] [address] [place] [address] Kitty Dover, MIRTA [address] [place] [address] documented as of this encounter Visit Diagnoses Not on filedocumented in this encounter Care Teams Pump Room Operator Relationship Specialty Start Date End Date Jasiel Freeman MD [address] [place] [phone] PCP - General Family Practice 08/15/17 documented as of this encounter
--- OUTSIDE RECORDS SUMMARY | 2024-10-24 05:32 | XMS_ITS | Encounter Summary ---
Author Organization [facility] Address [address] [place] [address] Care Team Providers Care Pipe Setter Name Role Phone Jasiel Freeman MD Primary Care Provider Reason for Referral * Tx/Med Therapy Plan Auth (Routine) - Closed Specialty Diagnoses / Procedures Referred By Contac t Referred To Contact Oncology Diagnoses Ulcerative colitis, unspecified Procedures INFUSION THERAPY SC INJECTION, VEDOLIZUMAB CROHN'S / COLITIS - ENTLane Colón MD NO ADDRESS ON FILE [facility] 2nd Floor [place] [address] [place] [address] Referral ID Status Reason Start Date Expiration Date Visits Re quested Visits Authorized [id number] Closed 11/15/2017 05/15/2018 99 99 PROOFER Encounter Details Date Type Department Care Team (Latest Contact Info) Description 11/09/2017 Orders Only [facility] GASTROENTEROLOGY [address] [facility] [address] [place] [address] Lane Ryan MD NO ADDRESS ON FILE Crohn's disease of small intestine without complication (Primary Dx) Social History Tobacco [...] 10:30 AM CDT Office Visit [facility] IBD and Gastroenterology Center [place] [address] [facility] [address] [place] [phone] Kitty Dover [facility] [address] [facility] [address] [place] [address] documented as of this encounter Visit Diagnoses Diagnosis Crohn's disease of small intestine without complication- Primary Regional enteritis of small intestine documented in this encounter Care Teams Pipe Setter Relationship Specialty Start Date End Date Jasiel Freeman MD [address] [place] [address] PCP - General Family Practice 08/15/17 documented as of this encounter
--- OUTSIDE RECORDS SUMMARY | 2024-10-24 05:32 | XMS_ITS | Encounter Summary ---
Author Organization [facility] Address [address] [place] [address] Care Team Providers Care Americanization Teacher Name Role Phone Jasiel Freeman MD Primary Care Provider [phone] Reason for Visit * Reason Onset Date Comments Results 09/19/2017 Encounter Details Date Type Department Care Team (Late st Contact Info) Description 09/19/2017 Telephone [facility] GASTROENTEROLOGY [address] [facility] [address] [place] [address] Lane yRan MD NO ADDRESS ON FILE Results Social [...] encounter Miscellaneous Notes * Telephone Encounter - Surekha Nyelaquita Dia - 09/19/2017 9:27 AM CST Patient is calling for results. Also he is having surgery on 10/03/17. He states that you wanted toplace him on Flagyl prior to surgery. Review pathology Anticipating to place on stelara after recovering from surgery on Hip jf ERCIAL SHEET METAL FOREMAN documented in this encounter Plan of Treatment Upcoming Encounters Date Type Department Care Team (Late st Contact Info) Description 02/13/2025 10:30 AM CDT Office Visit [facility] IBD and Gastroenterology Center [place] [address] [place] [address] Kitty Dover, MIRTA [address] [place] [address] [place] [phone] documented as of this encounter Visit Diagnoses Not on filedocumented in this encounter Care Teams Americanization Teacher Relationship Specialty Start Date End Date Jasiel Freeman MD [address] [place] [phone] PCP - General Family Practice 08/15/17 documented as of this encounter
--- OUTSIDE RECORDS SUMMARY | 2024-10-24 05:32 | XMS_ITS | Encounter Summary ---
Author Organization [facility] Address [address] [place] [address] Care Team Providers Care Structures Technician Name Role Phone Jasiel Freeman MD Primary Care Provider Reason for Visit * Reason Onset Date Comments New Prescription Request 08/28/2018 Encounter Details Date Type Department Care Team (Late st Contact Info) Description 08/28/2018 Telephone [facility] GASTROENTEROLOGY [address] [facility] [address] [place] [address] Lane Ryan MD NO ADDRESS ON FILE New Prescription Request Social History Tobacco Use Types Packs/Day Years [...] * Telephone Encounter - Ada Tan - 08/28/2018 3:20 PM CST Pt is going on a cruise and would like script of Bernabe to take with him Please E-scribe to Luis in [facility] WORKER documented in this encounter Plan of Treatment Upcoming Encounters Date Type Department Care Team (Late st Contact Info) Description 02/13/2025 10:30 AM CDT Office Visit [facility] IBD and Gastroenterology Center [place] [address] [place] [address] Kitty Dover ANP [address] [place] [phone] documented as of this encounter Visit Diagnoses Not on filedocumented in this encounter Care Teams Structures Technician Relationship Specialty Start Date End Date Jasiel Freeman MD [address] [place] [phone] PCP - General Family Practice 08/15/17 documented as of this encounter
--- OUTSIDE RECORDS SUMMARY | 2024-10-24 05:32 | XMS_ITS | Encounter Summary ---
Author Organization [facility] Address [address] [place] [address] Care Team Providers Care Cake Wrapper Name Role Phone Jasiel Freeman MD Primary Care Provider Encounter Details Date Type Department Care Team (Late st Contact Info) Description 10/11/2017 Abstract [facility] GASTROENTEROLOGY [address] [facility] [address] [place] [address] Lane Ryan MD NO ADDRESS [...] 02/13/2025 10:30 AM CDT Office Visit [facility] IBD and Gastroenterology Center [place] [address] [place] [address] Kitty Dover, MIRTA [address] [place] [address] documented as of this encounter Visit Diagnoses Not on filedocumented in this encounter Care Teams Cake Wrapper Relationship Specialty Start Date End Date Jasiel Freeman MD [address] [place] [address] PCP - General Family Practice 08/15/17 documented as of this encounter
--- OUTSIDE RECORDS SUMMARY | 2024-10-24 05:32 | XMS_ITS | Encounter Summary ---
Author Organization [facility] Address [address] [place] [address] Care Team Providers Care Kiln Stacker Name Role Phone Jasiel Freeman MD Primary Care Provider [phone] Reason for Visit * Tx/Med Therapy Plan Auth (Routine) - Closed Specialty Diagnoses / Procedures Referred By Contac t Referred To Contact Oncology Diagnoses Ulcerative colitis, unspecified Procedures INFUSION THERAPY [place] INJECTION, VEDOLIZUMAB CROHN'S / COLITIS - Lane Conklin MD NO ADDRESS ON FILE [facility] Infusion [place] 2nd Floor [place] [address] [place] [address] Referral ID Status Reason Start Date Expiration Date Visits Re quested Visits Authorized [id number] Closed 11/15/2017 05/15/2018 99 99 Encounter Details Date Type Department Care Team (Latest Contact Info) Description 11/15/2017 11:00 AM VETERINARIAN EPIDEMIOLOGIST - 11/15/2017 11:59 PM VETERINARIAN EPIDEMIOLOGIST Hospital Encounter [facility] Infusion Center 2nd Fl [address] [place] [address] Discharge Disposition: Home or Self Care Social [...] Sign Reading Time Taken Comments Blood Pressure 125/88 11/15/2017 11:10 AM VETERINARIAN EPIDEMIOLOGIST Pulse 90 11/15/2017 11:10 AM VETERINARIAN EPIDEMIOLOGIST Temperature 36.8 ??C (98.2 ??F) 11/15/2017 11:[address] Respiratory Rate 16 11/15/2017 11:10 AM VETERINARIAN EPIDEMIOLOGIST Oxygen Saturation - - Inhaled Oxygen Concentration [...] encounter Miscellaneous Notes * Care Plan - Marisa Feliciano RN - 11/15/2017 1:14 PM CST Problem: Inflammatory Bowel Disease (Adult) Goal: Prevent/Manage Potential Problems Signs and symptoms of listed problems will be absent or manageable. Outcome: Progressing Pt admitted to [facility] for infusion. Denies questions about medication/side effects as well as active infection. Entyvio given without difficulty. Pt instructed to notify physician or go to ED if there are any changes in their condition. Verbalized understanding. Pt discharged ambulatory. RINARIAN EPIDEMIOLOGIST documented in this encounter Plan of Treatment Upcoming Encounters Date Type Department Care Team (Late st Contact Info) Description 02/13/2025 10:30 AM CDT Office Visit [facility] IBD and Gastroenterology Center [place] [address] [place] [address] Kitty Dover, ANP [address] [place] [address] [place] [address] documented as of this encounter Visit Diagnoses Not on filedocumented in this encounter Administered Medications Inactive Administered Medications - up to 3 most recent administrations Medication Order MAR Action Action Date Dose Rate Site vedolizumab (ENTYVIO) 300 mg in sodium chloride 0.9% 250 mL IVPB 300 mg, IV, ONE TIME ONLY, 1 dose, On Mon11/15/17 at 1200, Routine New Bag 11/15/2017 12:33 PM VETERINARIAN EPIDEMIOLOGIST 300 mg 510 mL/hr documented in this encounter Care Teams Kiln Stacker Relationship Specialty Start Date End Date Jasiel Freeman MD [address] [place] [address] PCP - General Family Practice 08/15/17 documented as of this encounter
--- OUTSIDE RECORDS SUMMARY | 2024-10-24 05:32 | XMS_ITS | Encounter Summary ---
Author Organization [facility] Address [address] [place] [address] Care Team Providers Care Marketing And Public Relations Manager Name Role Phone Jasiel Freeman MD Primary Care Provider [phone] Encounter Details Date Type Department Care Team (Late st Contact Info) Description 12/26/2017 Abstract [facility] GASTROENTEROLOGY [address] [facility] [address] [place] [address] Lane Ryan MD NO ADDRESS [...] 02/13/2025 10:30 AM CDT Office Visit [facility] IBD and Gastroenterology Center [place] [address] [place] [address] Kitty Dover, MIRTA [address] [place] [address] documented as of this encounter Visit Diagnoses Not on filedocumented in this encounter Care Teams Marketing And Public Relations Manager Relationship Specialty Start Date End Date Jasiel Freeman MD [address] [place] [address] PCP - General Family Practice 08/15/17 documented as of this encounter
--- OUTSIDE RECORDS SUMMARY | 2024-10-24 05:32 | XMS_ITS | Encounter Summary ---
Author Organization [facility] Address , [place] Care Team Providers Care Radiagraph Operator Name Role Phone Jasiel Freeman MD Primary Care Provider Encounter Details Date Type Department Care Team (Late st Contact Info) Description 12/06/[address], [address] [place] [address] Remberto Angel Social History Tobacco Use Types Packs/Day Years [...] encounter Miscellaneous Notes * Telephone Encounter - Remberto Angel - 12/06/2017 8:56 AM CST Prior Authorization for Marielena has been denied by ins co. 1st level appeal has also been denied - per ins rep MDO will need to contact the insurance for 2nd level appeal. April COON Dept UREMENT AND VERIFICATION ENGINEER documented in this encounter Plan of Treatment Upcoming Encounters Date Type Department Care Team (Late st Contact Info) Description 02/13/2025 10:30 AM CDT Office Visit [facility] IBD and Gastroenterology Center [place] [address] [place] [address] Kitty Dover ANP [address] [place] [address] documented as of this encounter Visit Diagnoses Not on filedocumented in this encounter Care Teams Radiagraph Operator Relationship Specialty Start Date End Date Jasiel Freeman MD [address] [place] [phone] PCP - General Family Practice 08/15/17 documented as of this encounter
--- OUTSIDE RECORDS SUMMARY | 2024-10-24 05:32 | XMS_ITS | Encounter Summary ---
Author Organization [facility] Address [address] [place] [address] Care Team Providers Care Tube Sorter Name Role Phone Jasiel Freeman MD Primary Care Provider [phone] Reason for Visit * Reason Onset Date Comments Surgery 10/03/2017 Problem Encounter Details Date Type Department Care Team (Late st Contact Info) Description 10/03/2017 Telephone [facility] GASTROENTEROLOGY [address] [facility] [address] [place] [address] Lane Ryan MD NO ADDRESS ON FILE Surgery (Problem) Social History Tobacco Use Types Packs/Day Years [...] Telephone Encounter - Lane Ryan MD - 10/03/2017 3:10 PM CST Reviewed with orthopedics office. Would have patient take Lomotil before the procedure. Avoid late evening meal. Okay for aspirin, Coumadin. Lane Ryan ETIC ACCOUNT COORDINATOR * Telephone Encounter - Kadie Nye - 10/03/2017 2:59 PM CST Prema from Dr. Gold's office regarding the above. They gave patient Cefazolan 2 mg IV prior to surgery. Patient had taken Celebrex the day before. Would you advise bowel prep prior? Also post surgery, they prescribe aspirin BID for 6 days or Coumadin for blood clot prevention. Please advise. [phone]. They can reschedule him for next week. ETIC ACCOUNT COORDINATOR * Telephone Encounter - Ada Tan - 10/03/2017 2:11 PM CST Pt was in surg today and they had to stop because he had uncontrollable stool. They are trying to have this done again next Monday but they need to know what they can do to prevent this from happening again please call Inés @ [phone] ETIC ACCOUNT COORDINATOR documented in this encounter Plan of Treatment Upcoming Encounters Date Type Department Care Team (Late st Contact Info) Description 02/13/2025 10:30 AM CDT Office Visit [facility] IBD and Gastroenterology Center [place] [address] [place] [phone] Kitty Dover ANP [address] [place] [address] [place] [address] documented as of this encounter Visit Diagnoses Not on filedocumented in this encounter Care Teams Tube Sorter Relationship Specialty Start Date End Date Jasiel Freeman MD [address] [place] [phone] PCP - General Family Practice 08/15/17 documented as of this encounter
--- OUTSIDE RECORDS SUMMARY | 2024-10-24 05:32 | XMS_ITS | Encounter Summary ---
Author Organization [facility] Address [address] [place] [address] Care Team Providers Care Gift Officer Name Role Phone Jasiel Freeman MD Primary Care Provider Reason for Visit * Reason Onset Date Comments Insurance Issues 10/20/2017 Encounter Details Date Type Department Care Team (Late st Contact Info) Description 10/20/2017 Telephone [facility] [address] [place] [address] Thanh Solares, PHARMACIST Insurance Issues [...] Telephone Encounter - Thanh Solares, PHARMACIST - 10/20/2017 8:38 AM ORACLE E BUSINESS DEVELOPER [facility] Specialty & Infusion [place] Progress Note Our office received a denial for the authorization request for the medication Stelara. A copy of the denial letter was sent to Dr Ryan for his review. [facility] Specialty & Home Infusion [facility] [id number] [place] [address], [address] [place] [address] LE E BUSINESS DEVELOPER documented in this encounter Plan of Treatment Upcoming Encounters Date Type Department Care Team (Late st Contact Info) Description 02/13/2025 10:30 AM CDT Office Visit [facility] IBD and Gastroenterology Center [place] [address] [place] [address] Kitty Dover ANP [address] [place] [address] [place] [address] documented as of this encounter Visit Diagnoses Not on filedocumented in this encounter Care Teams Gift Officer Relationship Specialty Start Date End Date Jasiel Freeman MD [address] [place] [phone] PCP - General Family Practice 08/15/17 documented as of this encounter
--- OUTSIDE RECORDS SUMMARY | 2024-10-24 05:32 | XMS_ITS | Encounter Summary ---
Author Organization [facility] Address [address] [place] [address] Care Team Providers Care Manager Medicaid Name Role Phone Jasiel Freeman MD Primary Care Provider Reason for Visit * Reason Onset Date Comments New Prescription Request 11/26/2018 Encounter Details Date Type Department Care Team (Late st Contact Info) Description 11/26/2018 Telephone [facility] Gastroenterology [facility] [address] [facility] [address] [place] [address] Annette [place] MD [address] [facility] [address] [place] [address] New Prescription Request Social History Tobacco Use [...] Telephone Encounter - Joaquina Prescott RN - 11/26/2018 2:46 PM MIXER FOAM RUBBER [facility] called, he is due for next Entyvio next week. Per Dr. Nair, we will extend it for 3 infusions and need to get him in to see her for office visit since he hasn't been seen since September 2017. Left VM indicating the above. When appointment is made will also order some blood work to be done prior. Joaquina Prescott R FOAM RUBBER documented in this encounter Plan of Treatment Upcoming Encounters Date Type Department Care Team (Late st Contact Info) Description 02/13/2025 10:30 AM CDT Office Visit [facility]ology [facility] [place] [address] [facility] [address] [place] [address] Kitty Dover, MIRTA [address] [place] [address] [place] [address] documented as of this encounter Visit Diagnoses Not on filedocumented in this encounter Care Teams Manager Medicaid Relationship Specialty Start Date End Date Jasiel Freeman MD [address] [place] [phone] PCP - General Family Practice 08/15/17 documented as of this encounter
--- OUTSIDE RECORDS SUMMARY | 2024-10-24 05:32 | XMS_ITS | Encounter Summary ---
Author Organization [facility] Address [address] [place] [address] Care Team Providers Care Frog Farmer Name Role Phone Jasiel Freeman MD Primary Care Provider Reason for Visit * Reason Onset Date Comments Medication Refill 10/24/2017 Encounter Details Date Type Department Care Team (Late st Contact Info) Description 10/24/2017 Telephone [facility] GASTROENTEROLOGY [address] [facility] [address] [place] [address] Lane Ryan MD NO ADDRESS ON FILE Medication Refill Social History Tobacco Use Types [...] * Telephone Encounter - Kadie Nye - 10/24/2017 8:17 AM CST Also patient is requesting prescription for Lomotil sent to [facility] in [place]. BORER * Telephone Encounter - Kadie Nye - 10/24/2017 8:12 AM CST Our office received a denial for the Stelara for Edgardo Elkins. They state that Stelara is not coveredif the patient does not have a diagnosis of plaque psoriasis, psoriatic arthritis or Chron???s disease. The diagnosis listed for the patient in Epic is Ulcerative colitis. Please advise. Bo BORER documented in this encounter Plan of Treatment Upcoming Encounters Date Type Department Care Team (Late st Contact Info) Description 02/13/2025 10:30 AM CDT Office Visit [facility] IBD and Gastroenterology Center [place] [address] [facility] [address] [place] [address] Kitty Dover ANP [address] [facility] [address] [place] [address] documented as of this encounter Visit Diagnoses Not on filedocumented in this encounter Care Teams Frog Farmer Relationship Specialty Start Date End Date Jasiel Freeman MD [address] [place] [phone] PCP - General Family Practice 08/15/17 documented as of this encounter
--- OUTSIDE RECORDS SUMMARY | 2024-10-24 05:32 | XMS_ITS | Encounter Summary ---
Author Organization [facility] Address [address] [place] [address] Care Team Providers Care Academic Registrar Name Role Phone Jasiel Freeman MD Primary Care Provider Reason for Visit * Reason Onset Date Comments Results 10/05/2017 Encounter Details Date Type Department Care Team (Late st Contact Info) Description 10/05/2017 Telephone [facility] GASTROENTEROLOGY [address] [facility] [address] [place] [address] Lane Ryan MD NO ADDRESS [...] Telephone Encounter - Lane Ryan MD - 10/05/2017 3:31 PM CST Patient's labs suggest, dehydration with an elevated creatinine at 1.49, normal BUN, hemoglobin of 17 and hematocrit of over 50. Patient has been advised to force fluids. Patient is scheduled for elective hip surgery. Next Monday at [place]. I have left a message for the orthopedic surgeons nurse that he can. Lab work on Monday morning before proceeding with surgery. They apparently want to do the surgery with a spinal. It was seen with his frequent incontinence that a general anesthetic. Should be considered. Lane Ryan ROOM SALES CONSULTANT documented in this encounter Plan of Treatment Upcoming Encounters Date Type Department Care Team (Late st Contact Info) Description 02/13/2025 10:30 AM CDT Office Visit [facility] IBD and Gastroenterology Center [place] [address] [facility] [address] [place] [address] Kitty Dover, MIRTA [address] [place] [address] [place] [address] documented as of this encounter Visit Diagnoses Not on filedocumented in this encounter Care Teams Academic Registrar Relationship Specialty Start Date End Date Jasiel Freeman MD [address] [place] [address] PCP - General Family Practice 08/15/17 documented as of this encounter
--- OUTSIDE RECORDS SUMMARY | 2024-10-24 05:32 | XMS_ITS | Encounter Summary ---
Author Organization [facility] Address , [place] Care Team Providers Care Associate Store Leader Name Role Phone Jasiel Freeman MD Primary Care Provider Encounter Details Date Type Department Care Team (Late st Contact Info) Description 08/08/[address], [address] [place] [address] John Avina PHARMACIST Social History [...] Telephone Encounter - John Avina PHARMACIST - 08/08/2018 9:38 AM CDT [facility] Specialty & Home [facility] Care Plan Demographics Edgardo Elkins 47 y.o. / male Patient's address on file: [address] [place] [address] Patient's current location: Same as above Patient Contact Information: Home Phone Work Phone [phone] Insurance Information: [employer] Choice POS II Home Infusion Care Team IV Pharmacy: [facility] / [phone] Nursing: [facility] Physician(s): Dr. Lane Ryan IV access PIV placed by RN prior to each infusion Progress Note Patient admitted to [facility] services upon referral from physician. Patient to receive Entyvio at home every 8 weeks for ulcerative colitis. Edgardo is due for his next infusion tomorrow. Pharmacist contacted CALENDER MACHINE OPERATOR HELPER Ebony to coordinate delivery. Will send medication to CALENDER MACHINE OPERATOR HELPER and she will bring with her. Additional [...] by intraveous injection see administration instructions Home CALENDER MACHINE OPERATOR HELPER to administer over 30 minutes every 8 [...] Pharmacy Assessment, Plan and Follow-Up Evaluation Date 08/08/2018 Condition / Problem Ulcerative colitis Goal(s) Maintain remission of ulcerative colitis and prevent future flares Minimal side effects related to infusion Intervention(s) Entyvio Monitoring Patient progress; MD assessment Status Ongoing Date 08/08/2018 Condition/ Problem Patient/Caregiver education (potential problem) Goal Patient/Caregiver will understand: Purpose of medication Method of administration Risk associated with therapy Proper storage of medication and supplies Proper disposal of medication and supplies Intervention(s) RN and pharmacist will provide routine and repeated instruction Written materials provided. Status Ongoing Date 08/08/2018 Condition / Problem IV access (potential problem) Goal Patient is free of catheter related infection. IV access will remain patent for duration of need Intervention(s) Educate patient/caregiver regarding proper care of IV catheter Monitor patient for possible fever Monitor any relevant lab work Status Ongoing Discharge Plan Indefinite at this time This pharmacy plan of care updated and reviewed by FADI Ulloa [facility] Specialty & Home Infusion [address] , [address] [place] [address] documented in this encounter Plan of Treatment Upcoming Encounters Date Type Department Care Team (Late st Contact Info) Description 02/13/2025 10:30 AM CDT Office Visit [facility] IBD and Gastroenterology Center [place] [address] [facility] [address] [address] Kitty Dover, MIRTA [address] [place] [address] documented as of this encounter Visit Diagnoses Not on filedocumented in this encounter Care Teams Associate Store Leader Relationship Specialty Start Date End Date Jasiel Freeman MD 5 [place] [address] PCP - General Family Practice 08/15/17 documented as of this encounter
--- OUTSIDE RECORDS SUMMARY | 2024-10-24 05:32 | XMS_ITS | Encounter Summary ---
Author Organization [facility] Address [address] [place] [address] Care Team Providers Care Tenon Machine Operator Name Role Phone Jasiel Freeman MD Primary Care Provider [phone] Reason for Visit * Reason Onset Date Comments Results 08/30/2017 Encounter Details Date Type Department Care Team (Late Contact Info) Description 08/30/2017 Telephone [facility] GASTROENTEROLOGY [address] [facility] [address] [place] [address] Lane Ryan MD NO ADDRESS [...] Description 02/13/2025 10:30 AM CDT Office Visit [facility] IBD and Gastroenterology Center [place] [address] [place] [address] Kitty Dover, ANP [address] [facility] [address] [place] [address] documented as of this encounter Visit Diagnoses Not on filedocumented in this encounter Care Teams Tenon Machine Operator Relationship Specialty Start Date End Date Jasiel Freeman MD [address] [place] [phone] PCP - General Family Practice 08/15/17 documented as of this encounter
--- OUTSIDE RECORDS SUMMARY | 2024-10-24 05:33 | XMS_ITS | Encounter Summary ---
Author Organization [facility] Address [address] [place] [address] Care Team Providers Care Dry Pan Feeder Name Role Phone Jasiel Freeman MD Primary Care Provider Reason for Visit * Reason Onset Date Comments Medical Records 08/25/2017 Encounter Details Date Type Department Care Team (Late st Contact Info) Description 08/25/2017 Telephone [facility] GASTROENTEROLOGY [address] [facility] [address] [place] [address] Lane Ryan MD NO ADDRESS ON FILE Medical Records Social History Tobacco Use Types Packs/Day Years [...] * Telephone Encounter - Ada Tan - 08/25/2017 9:01 AM CDT Fax req for medical records from [facility] documented in this encounter Plan of Treatment Upcoming Encounters Date Type Department Care Team (Late st Contact Info) Description 02/13/2025 10:30 AM CDT Office Visit [facility] IBD and Gastroenterology Center [place] [address] [place] [address] Kitty Dover ANP [address] [place] [address] [place] [address] documented as of this encounter Visit Diagnoses Not on filedocumented in this encounter Care Teams Dry Pan Feeder Relationship Specialty Start Date End Date Jasiel Freeman MD [address] [place] [phone] PCP - General Family Practice 08/15/17 documented as of this encounter
--- OUTSIDE RECORDS SUMMARY | 2024-10-24 05:33 | XMS_ITS | Encounter Summary ---
Author Organization [facility] Address [address] [place] [address] Care Team Providers Care Drain Layer Name Role Phone Martin Kelley MD Primary Care Provider [phone] Encounter Details Date Type Department Care Team (Late st Contact Info) Description 06/10/2014 Abstract [facility] GASTROENTEROLOGY [address] [facility] [address] [place] [address] Lane Ryan MD NO ADDRESS [...] 02/13/2025 10:30 AM CDT Office Visit [facility] IBD and Gastroenterology Center [place] [address] [place] [address] Kitty Dover ANP [address] [place] [address] documented as of this encounter Visit Diagnoses Not on filedocumented in this encounter Care Teams Drain Layer Relationship Specialty Start Date End Date Martin Kelley MD PCP - General Internal Medicine 02/16/12 08/14/17 documented as of this encounter
--- OUTSIDE RECORDS SUMMARY | 2024-10-24 05:33 | XMS_ITS | Encounter Summary ---
Author Organization [facility] Address [address] [place] [address] Care Team Providers Care Slide Forming Machine Tender Name Role Phone Martin Kelley MD Primary Care Provider [phone] Reason for Visit * Reason Onset Date Comments Ulcerative Colitis 08/01/2016 Encounter Details Date Type Department Care Team (Late st Contact Info) Description 08/01/[address] [facility] GASTROENTEROLOGY [address] [facility] [address] [place] [address] Lane Ryan MD NO ADDRESS ON FILE Ulcerative Colitis Social History Tobacco Use Types Packs/Day Years [...] * Telephone Encounter - Kadie Nye - 08/03/2016 10:09 AM CDT Physician escribed medication. * Telephone Encounter - Kadie Nye - 08/01/2016 9:07 AM CDT Cramping and urgency. Feels he is having a flare up. Patient is requesting a prescription send to [facility] in [place]. If you decide of Flagyl, could you please also send something for nausea. documented in this encounter Plan of Treatment Upcoming Encounters Date Type Department Care Team (Late st Contact Info) Description 02/13/2025 10:30 AM CDT Office Visit [facility] IBD and Gastroenterology Center [place] [address] [facility] [address] [place] [address] Kitty Dover, [facility] [address] [place] [address] [place] [address] documented as of this encounter Visit Diagnoses Not on filedocumented in this encounter Care Teams Slide Forming Machine Tender Relationship Specialty Start Date End Date Martin Kelley MD PCP - General Internal Medicine 02/16/12 08/14/17 documented as of this encounter
--- OUTSIDE RECORDS SUMMARY | 2024-10-24 05:33 | XMS_ITS | Encounter Summary ---
Author Organization [facility] Address [address] [place] [address] Care Team Providers Care Inspection Machine Tender Name Role Phone Martin Kelley MD Primary Care Provider [phone] Reason for Visit * Reason Onset Date Comments Colonoscopy 06/02/2017 Encounter Details Date Type Department Care Team (Late st Contact Info) Description 06/02/[address] [facility] GASTROENTEROLOGY [address] [facility] [address] [place] [address] Lane Ryan MD NO ADDRESS ON FILE Colonoscopy Social History Tobacco Use Types Packs/Day Years [...] * Telephone Encounter - Ada Tan - 06/02/2017 9:27 AM CDT Called to schedule colonoscopy 08/24/17 @ 12:30 e-mail prep to [email or web address] documented in this encounter Plan of Treatment Upcoming Encounters Date Type Department Care Team (Late st Contact Info) Description 02/13/2025 10:30 AM CDT Office Visit [facility] IBD and Gastroenterology Center [place] [address] [place] [address] Kitty Dover, [facility] [address] [place] [address] [place] [address] documented as of this encounter Visit Diagnoses Not on filedocumented in this encounter Care Teams Inspection Machine Tender Relationship Specialty Start Date End Date Martin Kelley MD PCP - General Internal Medicine 02/16/12 08/14/17 documented as of this encounter
--- OUTSIDE RECORDS SUMMARY | 2024-10-24 05:33 | XMS_ITS | Encounter Summary ---
Author Organization [facility] Address [address] [place] [address] Care Team Providers Care Corner Cutter Name Role Phone Martin Kelley MD Primary Care Provider [phone] Reason for Visit * Reason Comments Ulcerative Colitis Encounter Details Date Type Department Care Team (Latest Contact Info) Description 08/11/2014 10:15 AM CDT Office Visit [facility] GASTROENTEROLOGY [address] [facility] [address] [place] [address] Lane Ryan MD NO ADDRESS ON FILE IBD (inflammatory bowel disease) (Primary Dx) Social History Tobacco Use Types [...] Sign Reading Time Taken Comments Blood Pressure 147/88 08/11/2014 10:34 AM CDT Pulse 98 08/11/2014 10:34 AM CDT Temperature - - Respiratory Rate 16 08/11/2014 10:34 AM CDT Oxygen Saturation 97% 08/11/2014 10:34 AM CDT Inhaled Oxygen Concentration - - Weight 80.3 kg (177 lb) 08/11/2014 10:34 AM CDT Height - - Body Mass Index 26.14 06/09/2014 2:24 PM CDT documented in this encounter Progress Notes * Lane Ryan MD - 08/11/2014 10:52 AM CDT Martin Kelley MD GASTROENTEROLOGY PROBLEM: Inflammatory bowel disease (Crohn's) Subjective: Doing well. Note that last endoscopy showed inflammation of the pouch and residual small intestine.Patient is having 3-4 bowel motions per day. He denies rectal bleeding or pain. Occasionally fistula will bleed. He is on Humira every 2 weeks. He does very well for one week and then his symptoms began to increase. We had recently done antibodies for Humira and this was negative. Blood level of Humira was 8.4. Objective: BP 147/88 Pulse 98 Resp 16 Wt 80.287 kg (177 lb) BMI 26.13 kg/m2 SpO2 97% General:well developed and in no acute distress Heart: RRR Lungs: clear Abdomen: Soft bland Rectal: defer Extrem:: normal Assessment/Plan: In general patient with severe inflammatory bowel disease with recurrent postop. He is doing well though did have impressive endoscopic findings on last examination. Discussed options with patient and will increase Humira to once a week. Other options of Imuran, vedoluzimab or methotrexate were discussed. Lab Results: Lab Results Component Value Date/Time WBC 5.6 07/26/2012 9:35 AM HEMOGLOBIN 13.5* 07/26/2012 9:35 AM HEMATOCRIT 42.0 07/26/2012 9:35 AM PLATELETS 303 07/26/2012 9:35 AM MCV 87.0 07/26/2012 9:35 AM Lab Results Component Value Date/Time CRP 2.7* 07/26/2012 9:35 AM Lab Results Component Value Date/Time SODIUM 139 07/26/2012 9:35 AM POTASSIUM 3.9 07/26/2012 9:35 AM CHLORIDE 106 07/26/2012 9:35 AM CO2 20* 07/26/2012 9:35 AM CALCIUM 9.2 07/26/2012 9:35 AM BUN 10 07/26/2012 9:35 AM CREATININE 0.87 07/26/2012 9:35 AM GLUCOSE 88 07/26/2012 9:35 AM TOTAL PROTEIN 7.1 07/26/2012 9:35 AM ALBUMIN 4.0 07/26/2012 9:35 AM BILIRUBIN TOTAL 0.3 07/26/2012 9:35 AM ALKALINE PHOSPHATASE 61 07/26/2012 9:35 AM AST 16 07/26/2012 9:35 AM ALT 20 07/26/2012 9:[address] Ryan MD 08/11/2014 documented in this encounter Plan of Treatment Upcoming Encounters Date Type Department Care Team (Late st Contact Info) Description 02/13/2025 10:30 AM CDT Office Visit [facility] IBD and Gastroenterology Center [place] [address] [place] [address] Kitty Dover, [facility] [address] [place] [address] [place] [address] documented as of this encounter Visit Diagnoses Diagnosis IBD (inflammatory bowel disease)- Primary Other and unspecified noninfectious gastroenteritis and colitis documented in this encounter Care Teams Corner Cutter Relationship Specialty Start Date End Date Martin Kelley MD PCP - General Internal Medicine 02/16/12 08/14/17 documented as of this encounter
--- OUTSIDE RECORDS SUMMARY | 2024-10-24 05:33 | XMS_ITS | Encounter Summary ---
Author Organization [facility] Address [address] [place] [address] Care Team Providers Care Chocolate Refining Roller Name Role Phone Martin Kelley MD Primary Care Provider [phone] Encounter Details Date Type Department Care Team (Late st Contact Info) Description 07/09/2014 Orders Only [facility] GASTROENTEROLOGY [address] [facility] [address] [place] [address] Social History Tobacco Use Types [...] [facility] IBD and Gastroenterology Center [place] [address] [place] [address] Kitty Dover, MIRTA [address] [place] [address] documented as of this encounter Visit Diagnoses Not on filedocumented in this encounter Care Teams Chocolate Refining Roller Relationship Specialty Start Date End Date Martin Kelley MD PCP - General Internal Medicine 02/16/12 08/14/17 documented as of this encounter
--- OUTSIDE RECORDS SUMMARY | 2024-10-24 05:33 | XMS_ITS | Encounter Summary ---
Author Organization [facility] Address [address] [place] [address] Care Team Providers Care Aids Nurse Name Role Phone Martin Kelley MD Primary Care Provider [phone] Reason for Visit * Reason Onset Date Comments Medication Refill 08/04/2015 Encounter Details Date Type Department Care Team (Late st Contact Info) Description 08/04/2015 Telephone [facility] GASTROENTEROLOGY [address] [facility] [address] [place] [address] Lane Ryan MD NO ADDRESS [...] Telephone Encounter - Lane Ryan MD - 08/04/2015 4:32 PM CDT Ordered flagyl 500 tid for pouchitis jf documented in this encounter Plan of Treatment Upcoming Encounters Date Type Department Care Team (Late st Contact Info) Description 02/13/2025 10:30 AM CDT Office Visit [facility] IBD and Gastroenterology Center [place] [address] [place] [address] Kitty Dover, ANP [address] [address] [place] [address] documented as of this encounter Visit Diagnoses Diagnosis Pouchitis- Primary documented in this encounter Care Teams Aids Nurse Relationship Specialty Start Date End Date Martin Kelley MD PCP - General Internal Medicine 02/16/12 08/14/17 documented as of this encounter
--- OUTSIDE RECORDS SUMMARY | 2024-10-24 05:33 | XMS_ITS | Encounter Summary ---
Author Organization [facility] Address [address] [place] [address] Care Team Providers Care Supervisor Paper Coating Name Role Phone Martin Kelley MD Primary Care Provider [phone] Reason for Visit * Reason Onset Date Comments Medication Refill 07/09/2014 Encounter Details Date Type Department Care Team (Late Contact Info) Description 07/09/2014 Refill [facility] GASTROENTEROLOGY [address] [facility] [address] [place] [address] Lane Ryan MD NO ADDRESS [...] [facility] [place] [address] [place] [address] Kitty Dover, ANP [address] [facility] [address] [place] [address] documented as of this encounter Visit Diagnoses Diagnosis IBD (inflammatory bowel disease)- Primary Other and unspecified noninfectious gastroenteritis and colitis documented in this encounter Care Teams Supervisor Paper Coating Relationship Specialty Start Date End Date Martin Kelley MD PCP - General Internal Medicine 02/16/12 08/14/17 documented as of this encounter
--- OUTSIDE RECORDS SUMMARY | 2024-10-24 05:33 | XMS_ITS | Encounter Summary ---
Author Organization [facility] Address [address] [place] [address] Care Team Providers Care Ic Design Manager Name Role Phone Martin Kelley MD Primary Care Provider [phone] Encounter Details Date Type Department Care Team (Latest Contact Info) Description 09/30/2015 Orders Only [facility] GASTROENTEROLOGY [address] [facility] [address] [place] [address] Lane Ryan MD NO ADDRESS ON FILE Ulcerative colitis without complications, unspecified ulcerative colitis (Primary Dx) Social History Tobacco Use Types [...] RD [address] [place] [address] Kitty Dover, ANP [address] [facility] [address] [place] [address] documented as of this encounter Procedures Procedure Name Priority Date/Time Associated Diagnosis Comments QUANTIFERON TB GOLD Routine 10/07/2015 1 :38 PM SAFETY AND HEALTH CONSULTANT Ulcerative colitis without complications, unspecified ulcerative colitis documented in this encounter Results * QUANTIFERON TB GOLD (10/07/2015 1:38 PM SAFETY AND HEALTH CONSULTANT) QUANTIFERON(R)-T B GOLD NEGATIVE NEGATIVE [facility] Comment: Negative test result. M. tuberculosis complex infection unlikely. NIL 0.00 IU/mL [facility] MITOGEN-NIL 4.05 IU/mL [facility] TB-NIL 0.02 IU/mL [facility] Comment: The Nil tube value is used to determine if the patient has a preexisting immune response which could cause a false-positive reading on the test. In order for a test to be valid, the Nil tube must have a value of less than or equal to 8.0 IU/mL. The mitogen control tube is used to assure the patient has a healthy immune status and also serves as a control for correct blood handling and incubation. It is used to detect false-negative readings. The mitogen tube must have a gamma interferon value of greater than or equal to 0.5 IU/mL higher than the value of the Nil tube. The TB antigen tube is coated with the M. tuberculosis specific antigens. For a test to be considered positive, the TB antigen tube value minus the Nil tube value must be greater than or equal to 0.35 IU/mL. For additional information, please refer to http://education.Good [employer]/faq/QFT (This link is being provided for informational/ educational purposes only.) REPORT COMMENT: FASTING:NO Test Performed at: [facility] [address] [place], [place] ??[address] SHARITA MELENDEZ DO,MPH Blood specimen (specimen) 10/07/2015 1:38 PM SAFETY AND HEALTH CONSULTANT Lane Ryan MD CHEMISTRY ORDERABLES [facility] [address] [place] [address] documented in this encounter Visit Diagnoses Diagnosis Ulcerative colitis without complications, unspecified ulcerative colitis- Primary documented in this encounter Care Teams Ic Design Manager Relationship Specialty Start Date End Date Martin Kelley MD PCP - General Internal Medicine 02/16/12 08/14/17 documented as of this encounter
--- OUTSIDE RECORDS SUMMARY | 2024-10-24 05:33 | XMS_ITS | Encounter Summary ---
Author Organization [facility] Address [address] [place] [address] Care Team Providers Care Retail Sales Merchandiser Name Role Phone Martin Kelley MD Primary Care Provider [phone] Reason for Visit * Auth/Cert - Closed Specialty Diagnoses / Procedures Referred By Contalka t Referred To Contact Gastroenterology Diagnoses UC (ulcerative colitis) UC (ulcerative colitis) [556.9] Procedures COLONOSCOPY [facility] Gi Lab [address] [place] [address] Referral ID Status Reason Start Date Expiration Date Visits Re quested Visits Authorized [id number] Closed 1 1 Encounter Details Date Type Department Care Team (Late st Contact Info) Description 06/09/2014 3:11 PM CDT Anesthesia Event [facility] GI Lab S [place] [address] [place] [address] Dragan Vegas MD [facility] [place] [address] Anesthesia Record Procedure Summary Procedure Name Responsible Anesthesiologist Anesthesia Start Time Anesthesia Stop Time COLONOSCOPY (Anus) Dragan Vegas MD 06/09/14 1511 06/09/14 1554 Events Date Time Event Comment 06/09/2014 1442 1447 AN Equip Check Anesthesia eq uipment and materials checked in accordance with local policy. 1511 An Start 1511 An Start Data 1511 Pre-Induction Immediate pre- induction anesthetic assessment performed. Vital signs as noted on graphic. 1519 An Induction 1520 Anesthesia Ready 1550 an stop data 1554 An Stop Meds Name Total lidocaine (XYLOCAINE) 2% injection 60 mg propofol (DIPRIVAN) 10??mg/mL injection 430 mg lactated ringers solution 1,100 mL * Agents Name O2 Inspired O2 N2O Inspired N2O * Blood No blood administrations on file. Lines, Drains, and Airways Type Details Placement Removal OB Wound 02/29/12; 1445; Yes; 1; Left:; gluteal; ulceration, fissure 02/29/12 1445 by Janice Crow RN Peripheral IV Pre-Hospital Start: No; Orientation: Left; Location: Hand; Device: Angiocath; Gauge: 20 gauge; Needle Length: 1 in length; Insertion Attempts: 1; Patient Tolerance: tolerated well 06/09/14 1434 by Rudy Bowman RN 06/09/14 1608 by Rachell Hinojosa RN Supraglottic Airway Type: nasal cannula; Confirmation: end tidal CO2, satisfactory chest rise 06/09/14 1447 by Libby Nieto AA-C 06/09/14 1608 by Rachell Hinojosa RN documented in this encounter Social History [...] OR Notes * Anesthesia Postprocedure Evaluation - Peter Mendoza MD - 06/09/2014 4:05 PM CDT Post Anesthesia Evaluation Vitals: BP 121/46 Pulse 84 Temp(Src) 36.6 ??C (Temporal) Resp 16 Ht 5' 9 (1.753 m) Wt 168 lb (76.204 kg) BMI 24.8 kg/m2 SpO2 99% Pain Rating: Nausea/Vomiting: no nausea and no vomiting Post-Op hydration: well hydrated Respiratory function: no respiratory symptoms Airway patency: normal Cardiovascular function: Normal - Regular rate and rhythm Mental status, LOC: 0=alert; keenly responsive Patient participated in evaluation: yes Anesthetic complications: no Phase II Postanesthesia Evaluation Including [facility] Modified Rebekah Score Patient seen and evaluated: Eleanor Modified Rebekah Score: Score: 20 (06/09/141606) COMMENTS: No apparent Anesthesia related complications RESPIRATORY FUNCTION: Respiration: able to breath and cough freely (06/09/141606) [2=able to breathe and cough freely, 1=dyspnea, limited breathing or tachypnea, 0=apnea or mechanicventilator] O2 Saturation: able to maintain O2 saturation greater than 92% on room air (06/09/141606) [2=able to maintain O2 saturation greater than 92% on room air, 1=needs O2 inhalation to maintain O2 saturation greater than 90%, 0=O2 saturation less than 90% even with O2 supplement] Resp: 16 (06/09/141605)SpO2: 99 % (06/09/141605) CARDIOVASCULAR FUNCTION: Heart Rate (Monitored): 71 bpm (06/09/141605) BP: 121/46 mmHg (06/09/141605) Circulation: BP within 20% of preanesthetic level (06/09/141606) [2=BP within 20% of preanesthetic level, 1=BP within 20-49% of preanesthetic level, 0=BP within 50%of preanesthetic level] MENTAL STATUS, NEURO, ACTIVITY: PATIENT PARTICIPATION IN EVALUATIONyes Consciousness: fully awake (06/09/141606) [2=fully awake, 1=arousable on calling, 0=not responding] Activity: able to move 4 extremities voluntarily or on command (06/09/141606) [2=able to move 4 extremities voluntarily or on command, 1=able to move 2 extremities voluntarily or on command, 0=unable to move extremities voluntarily or on command] Ambulation: able to stand up and walk straight, on ordered bedrest, or performing at patient's prior level of function (08/18/14 1607) [2=able to stand up and walk straight, on ordered bedrest, or performing at patient's prior level of function, 1=vertigo when erect, 0=dizziness when supine] TEMPERATURE: Temp: 36.6 ??C (06/09/14 1553) PAIN: Presence of Pain: denies pain/discomfort (06/09/14 1606) Pain: pain free (06/09/14 1607) [2=pain free, 1=pain handled by oral medication, 0=pain requiring parenteral medication] NAUSEA AND VOMITING: no nausea and no vomiting Fasting/Feeding: able to drink fluids, ice chips or NPO (06/09/14 1607) [2=able to drink fluids, ice chips or NPO, 1=nauseated, 0=nausea and vomiting] POSTOPERATIVE HYDRATION: well hydrated Intake/Output Summary (Last 24 hours) at 06/09/14 1614 Last data filed at 06/09/14 1608 Gross per 24 hour Intake 1220 ml Output 0 ml Net 1220 ml Urine Output: has voided, adequate urine output per device, or not applicable (06/09/14 1607) [2=has voided, adequate urine output per device, or not applicable, 1=unable to void but comfortable, 0=unable to void and uncomfortable] WOUND: Dressing: dry and clean or not applicable (06/09/14 1607) [2=dry and clean or not applicable, 1=wet, marked and not increasing, 0=growing area of wetness] Peter Mendoza MD 06/09/2014 4:14 PM Peter Mendoza MD * Anesthesia Preprocedure Evaluation - Dragan Vegas MD - 06/09/2014 2:39 PM CDT Anesthesia Evaluation Airway Mallampati: II TM distance: >3 FB Neck ROM: full Dental - normal exam Pulmonary - normal exam (-) pneumonia, COPD, asthma, shortness of breath, recent URI, sleep apnea ROS comment: Asthma as child, resolved Cardiovascular - negative ROS and normal exam Neuro/Psych - negative ROS GI/Hepatic/Renal (+) bowel prep (-) GERD, hepatitis, liver disease, renal disease Comments: Ulcerative colitis Endo/Other - negative ROS (-) diabetes mellitus, hypothyroidism, hyperthyroidism Abdominal - normal exam Anesthesia History History of anesthetic complications. Comments: Agitated upon awakening. Anesthesia Plan ASA 2 General Intravenous induction NPO status > 8 hours Anesthetic plan and risks discussed with Patient. Use of blood products: did not consent to blood products. Plan discussed with Nurse Staff Editor. Post-op Pain Control Plan to use Per surgeon for post-op pain control. documented in this encounter Plan of Treatment Upcoming Encounters Date Type Department Care Team (Late st Contact Info) Description 02/13/2025 10:30 AM CDT Office Visit [facility] IBD and Gastroenterology Center [place] [address] [place] [address] Kitty Dover, [facility] [address] [place] [address] documented as of this encounter Visit Diagnoses Not on filedocumented in this encounter Administered Medications Inactive Administered Medications - up to 3 most recent administrations Medication Order MAR Action Action Date Dose Rate Site lactated ringers solution IV, at 125 mL/hr, PRE-PROCEDURE CONTINUOUS, Starting on Mon06/09/14 at 1430, Until Mon06/09/14 at 1857, Routine, Pre-Procedure New Bag 06/09/2014 3:48 PM CDT New Bag 06/09/2014 2:34 PM CDT 125 mL/hr lidocaine 2 % (XYLOCAINE) injection INTRA-PROCEDURE PRN, Starting on Mon06/09/14 at 1519, Until Mon06/09/14 at 1555, Other (See Comment), Routine, Anesthesia Intra-op Given 06/09/2014 3:19 PM CDT 60 mg propofol (DIPRIVAN) injection INTRA-PROCEDURE PRN, Starting on Mon06/09/14 at 1519, Until Mon06/09/14 at 1555, Anesthesia Intra-op Given 06/09/2014 3:47 PM CDT 20 mg Given 06/09/2014 3:45 PM CDT 20 mg Given 06/09/2014 3:43 PM CDT 20 mg documented in this encounter Care Teams Retail Sales Merchandiser Relationship Specialty Start Date End Date Martin Kelley MD PCP - General Internal Medicine 02/16/12 08/14/17 documented as of this encounter
--- OUTSIDE RECORDS SUMMARY | 2024-10-24 05:33 | XMS_ITS | Encounter Summary ---
Author Organization [facility] Address [address] [place] [address] Care Team Providers Care Machine Crater Name Role Phone Martin Kelley MD Primary Care Provider [phone] Reason for Visit * Reason Onset Date Comments Medication Refill 07/07/2014 Encounter Details Date Type Department Care Team (Late Contact Info) Description 07/07/2014 Refill [facility] GASTROENTEROLOGY [address] [facility] [address] [place] [address] Lane Ryan MD NO ADDRESS [...] Description 02/13/2025 10:30 AM CDT Office Visit [facility] IBD and Gastroenterology Center [place] [address] [place] [address] Kitty Dover, ANP [address] [facility] [address] [place] [address] documented as of this encounter Visit Diagnoses Diagnosis IBD (inflammatory bowel disease)- Primary Other and unspecified noninfectious gastroenteritis and colitis documented in this encounter Care Teams Machine Crater Relationship Specialty Start Date End Date Martin Kelley MD PCP - General Internal Medicine 02/16/12 08/14/17 documented as of this encounter
--- OUTSIDE RECORDS SUMMARY | 2024-10-24 05:33 | XMS_ITS | Encounter Summary ---
Author Organization [facility] Address [address] [place] [address] Care Team Providers Care Western Felt Hat Blocker Name Role Phone Martin Kelley MD Primary Care Provider [phone] Encounter Details Date Type Department Care Team (Late st Contact Info) Description 10/08/2015 Abstract [facility] GASTROENTEROLOGY [address] [facility] [address] [place] [address] Lane Ryan MD NO ADDRESS [...] [facility] [place] [facility] [place] [address] [place] [address] Kitty Dover, MIR[facility] [address] [place] [address] documented as of this encounter Visit Diagnoses Not on filedocumented in this encounter Care Teams Western Felt Hat Blocker Relationship Specialty Start Date End Date Martin Kelley MD PCP - General Internal Medicine 02/16/12 08/14/17 documented as of this encounter
--- OUTSIDE RECORDS SUMMARY | 2024-10-24 05:33 | XMS_ITS | Encounter Summary ---
Author Organization [facility] Address [address] [place] [address] Care Team Providers Care Alliance Manager Name Role Phone Martin Kelley MD Primary Care Provider [phone] Reason for Visit * Reason Onset Date Comments Insurance Issues 11/14/2014 Encounter Details Date Type Department Care Team (Late st Contact Info) Description 11/14/2014 Telephone [facility] GASTROENTEROLOGY [address] [facility] [address] [place] [address] Lane Ryan MD NO ADDRESS ON FILE Insurance Issues Social History Tobacco Use Types [...] * Telephone Encounter - Ada Tan - 11/14/2014 11:43 AM CST Pharm recd refill for Humira but they say Ins termed as of 10/22/14. I told her we do not have any updated info on that. They will contact pt for correct ins info. FENCE INSTALLER documented in this encounter Plan of Treatment Upcoming Encounters Date Type Department Care Team (Late st Contact Info) Description 02/13/2025 10:30 AM CDT Office Visit [facility] IBD and Gastroenterology Center [place] [address] [place] [address] Kitty Dover, [facility] [address] [place] [address] [place] [address] documented as of this encounter Visit Diagnoses Not on filedocumented in this encounter Care Teams Alliance Manager Relationship Specialty Start Date End Date Martin Kelley MD PCP - General Internal Medicine 02/16/12 08/14/17 documented as of this encounter
--- OUTSIDE RECORDS SUMMARY | 2024-10-24 05:33 | XMS_ITS | Encounter Summary ---
Author Organization [facility] Address [address] [place] [address] Care Team Providers Care Mechanical Systems Engineer Name Role Phone Martin Kelley MD Primary Care Provider [phone] Reason for Visit * Reason Onset Date Comments New Prescription Request 08/03/2015 Encounter Details Date Type Department Care Team (Late st Contact Info) Description 08/03/2015 Telephone [facility] GASTROENTEROLOGY [address] [facility] [address] [place] [address] Lane Ryan MD NO ADDRESS [...] * Telephone Encounter - Ada Tan - 08/03/2015 9:16 AM CDT Pt is having flare up and [facility] to [phone] documented in this encounter Plan of Treatment Upcoming Encounters Date Type Department Care Team (Late st Contact Info) Description 02/13/2025 10:30 AM CDT Office Visit [facility] IBD and Gastroenterology Center [place] [address] [place] [address] Kitty Dover, [facility] [address] [place] [address] [place] [address] documented as of this encounter Visit Diagnoses Not on filedocumented in this encounter Care Teams Mechanical Systems Engineer Relationship Specialty Start Date End Date Martin Kelley MD PCP - General Internal Medicine 02/16/12 08/14/17 documented as of this encounter
--- OUTSIDE RECORDS SUMMARY | 2024-10-24 05:33 | XMS_ITS | Encounter Summary ---
Author Organization [facility] Address [address] [place] [address] Care Team Providers Care Three Dimensional Art Instructor Name Role Phone Jasiel Freeman MD Primary Care Provider Reason for Visit * Auth/Cert Specialty Diagnoses / Procedures Referred By Lambert pizarro Referred To Contact Gastroenterology Diagnoses UC (ulcerative colitis) UC (ulcerative colitis) [K51.90] Procedures COLONOSCOPY [facility] Gi Lab [address] [place] [address] Referral ID Status Reason Start Date Expiration Date Visits Re quested Visits Authorized [id number] 1 1 Encounter Details Date Type Department Care Team (Late st Contact Info) Description 08/24/2017 12:41 PM CDT Anesthesia Event [facility] GI Lab S [facility] [address] [place] [address] Sharon Millan MD [address] [place] [address] Anesthesia Record Procedure Summary Procedure Name Responsible Anesthesiologist Anesthesia Start Time Anesthesia Stop Time SMALL BOWEL ENTEROSCOPY (Anus) Sharon Millan MD 08/24/17 1241 08/24/17 1318 Events Date Time Event Comment 08/24/2017 1235 AN Equip Check Anesthesia eq uipment and materials checked in accordance with local policy. 1240 1241 An Start 1241 An Start Data 1241 Pre-Induction Immediate pre- induction anesthetic assessment performed. Vital signs as noted on graphic. 1245 An Induction 1245 Anesthesia Ready 1314 an stop data 1318 An Stop Meds Name Total propofol (DIPRIVAN) 10??mg/mL injection 400 mg lidocaine (XYLOCAINE) 2% injection 160 m g lactated Ringers solution 350 mL * Agents Name O2 Inspired O2 N2O Inspired N2O * Blood No blood administrations on file. Lines, Drains, and Airways Type Details Placement Removal OB Wound 02/29/12; 1445; Yes; 1; Left:; gluteal; ulceration, fissure 02/29/12 1445 by Janice Crow RN Peripheral IV Pre-Hospital Start: No; Orientation: Left; Location: Hand; Device: Angiocath; Gauge: 20 gauge; Insertion Attempts: 1 (JIE Negrete); Patient Tolerance: tolerated well, age-appropriate response 08/24/17 1227 by Riya Gutierrez RN 08/24/17 1347 by Rajni Mehta RN Supraglottic Airway Type: nasal cannula; Confirmation: end tidal CO2, satisfactory chest rise 08/24/17 1235 by Evelyn Lopez CRNA 08/24/17 1347 by Rajni Mehta RN documented in this encounter Social History [...] OR Notes * Anesthesia Postprocedure Evaluation - Sharon Millan MD - 08/24/2017 1:47 PM CDT Post Anesthesia Evaluation Vitals: BP 111/63 (BP Location: Right arm, Patient Position (BP): Sitting) Pulse 79 Temp 36.4 ??C Resp 16 Ht 5' 9 (1.753 m) Wt 84.4 kg (186 lb) SpO2 100% BMI 27.47 kg/m?? Pain Rating: no pian Nausea/Vomiting: no nausea and no vomiting Post-Op hydration: well hydrated Respiratory function: no respiratory symptoms Airway patency: normal Cardiovascular function: Normal - Regular rate and rhythm Mental status, LOC: 0=alert; keenly responsive Patient participated in evaluation: yes Unanticipated Events: no Sharon Millan MD * Anesthesia Handoff - Evelyn Lopez CRNA - 08/24/2017 1:18 PM CDT Post-Anesthetic transfer of care report elements [...] and acknowledgement of understanding. Vital Signs: BP: 131/72 (08/24/2017 12:21 PM) Pulse: 86 (08/24/2017 12:21 PM) Temp: 37.2 ??C (08/24/2017 12:21 PM) Resp: 18 (08/24/2017 12:21 PM) SpO2: 94 % (08/24/2017 12:21 PM) 1:17 PM Evelyn Lopez CRNA * Anesthesia Preprocedure Evaluation - Sharon Millan MD - 08/24/2017 12:39 PM CDT Relevant Problems No active problems are marked relevant to this note. Anesthesia Evaluation Patient summary reviewed Airway Mallampati: I TM distance: >3 FB Neck ROM: full Dental Pulmonary - negative ROS breath sounds clear to auscultation Cardiovascular (-) hypertension Rhythm: regular Rate: normal Neuro/Psych - negative ROS GI/Hepatic/Renal (+) bowel prep Comments: UC, had total colectomy in 2001 Endo/Other - negative ROS Abdominal - normal exam Anesthesia History No history of anesthetic complications and no history of PONV. Anesthesia Plan ASA 2 MAC NPO status > 2 hours (water at 0900) Anesthetic plan and risks discussed with Patient. Plan discussed with Nurse Diesel Engine Operator. Smoking Compliance Patient did not smoke on day of surgery documented in this encounter Plan of Treatment Upcoming Encounters Date Type Department Care Team (Late st Contact Info) Description 02/13/2025 10:30 AM CDT Office Visit [facility] IBD and Gastroenterology Center [place] [address] [place] [address] Kitty Dover, MIR[facility] [address] [place] [address] [place] [address] documented as of this encounter Visit Diagnoses Not on filedocumented in this encounter Administered Medications Inactive Administered Medications - up to 3 most recent administrations Medication Order MAR Action Action Date Dose Rate Site lactated Ringers solution IV, at 125 mL/hr, PRE-PROCEDURE CONTINUOUS, Starting on Rach 08/24/17 at 1230, Until Rach 08/24/17 at 1638, Routine, Pre-Procedure Continue from Pre-Op 08/24/2017 12:28 PM CDT New Bag 08/24/2017 12:27 PM CDT 125 mL/hr lidocaine 2 % (XYLOCAINE) injection INTRA-PROCEDURE PRN, Starting on Rach 08/24/17 at 1228, Until Rach 08/24/17 at 1318, Other (See Comment), Routine, Anesthesia Intra-op Given 08/24/2017 12:45 PM CDT 100 mg Given 08/24/2017 12:28 PM CDT 60 mg propofol (DIPRIVAN) injection INTRA-PROCEDURE PRN, Starting on Rach 08/24/17 at 1245, Until Rach 08/24/17 at 1318, Anesthesia Intra-op Given 08/24/2017 12:55 PM CDT 100 mg Given 08/24/2017 12:51 PM CDT 100 mg Given 08/24/2017 12:48 PM CDT 100 mg documented in this encounter Care Teams Three Dimensional Art Instructor Relationship Specialty Start Date End Date Jasiel Freeman MD [address] [place] [phone] PCP - General Family Practice 08/15/17 documented as of this encounter
--- OUTSIDE RECORDS SUMMARY | 2024-10-24 05:33 | XMS_ITS | Encounter Summary ---
Author Organization [facility] Address [address] [place] [address] Care Team Providers Care Glass Calibrator Name Role Phone Martin Kelley MD Primary Care Provider [phone] Encounter Details Date Type Department Care Team (Late st Contact Info) Description 10/14/2015 Abstract [facility] GASTROENTEROLOGY [address] [facility] [address] [place] [address] Lane Ryan MD NO ADDRESS [...] Description 02/13/2025 10:30 AM CDT Office Visit [facility] IBD and Gastroenterology Center [place] [address] [place] [address] Kitty Dover, MIR[facility] [address] [place] [address] documented as of this encounter Visit Diagnoses Not on filedocumented in this encounter Care Teams Glass Calibrator Relationship Specialty Start Date End Date Martin Kelley MD PCP - General Internal Medicine 02/16/12 08/14/17 documented as of this encounter
--- OUTSIDE RECORDS SUMMARY | 2024-10-24 05:33 | XMS_ITS | Encounter Summary ---
Author Organization [facility] Address [address] [place] [address] Care Team Providers Care Nutrition Program Instructor Name Role Phone Martin Kelley MD Primary Care Provider [phone] Reason for Visit * Reason Onset Date Comments Needs Form Or Letter Filled Out 06/10/2014 Labs Only 06/10/2014 Encounter Details Date Type Department Care Team (Late st Contact Info) Description 06/10/2014 Telephone [facility] GASTROENTEROLOGY [address] [facility] [address] [place] [address] Lane Ryan MD NO ADDRESS ON FILE Needs Form Or Letter Filled Out; Labs Only Social History Tobacco Use Types [...] * Telephone Encounter - Ada Tan - 06/10/2014 9:10 AM CDT Pt called because he needs to have [facility] lab order filled out.. He would like to go either to [facility] [place] or [facility]. I will mail form to pt. documented in this encounter Plan of Treatment Upcoming Encounters Date Type Department Care Team (Late st Contact Info) Description 02/13/2025 10:30 AM CDT Office Visit [facility] IBD and Gastroenterology Center [place] [address] [place] [address] Kitty Dover, MIR[facility] [address] [place] [address] [place] [address] documented as of this encounter Visit Diagnoses Not on filedocumented in this encounter Care Teams Nutrition Program Instructor Relationship Specialty Start Date End Date Martin Kelley MD PCP - General Internal Medicine 02/16/12 08/14/17 documented as of this encounter
--- OUTSIDE RECORDS SUMMARY | 2024-10-24 05:33 | XMS_ITS | Encounter Summary ---
Author Organization Address [address] [place] [address] Care Team Providers Care Iron Miner Blasting Name Role Phone Martin Kelley MD Primary Care Provider [phone] Reason for Visit * Reason Onset Date Comments Medication Question 07/15/2014 Encounter Details Date Type Department Care Team (Late st Contact Info) Description 07/15/2014 Telephone [facility] GASTROENTEROLOGY [address] [facility] [address] [place] [address] Lane Ryan MD NO ADDRESS ON FILE Medication Question Social History Tobacco Use Types Packs/Day Years [...] * Telephone Encounter - Kadie Nye - 07/17/2014 9:02 AM CDT Patient has many questions regarding labs and why he needs them. He would like a call. * Telephone Encounter - Lane Ryan MD - 07/16/2014 4:14 PM CDT Refill humira and ordered labs jf * Telephone Encounter - Kadie Nye - 07/15/2014 12:36 PM CDT Patient is inquiring about when he should get labs and when he should see you in the office. Pleasechange Claudia directions in EPIC to maintenance dose. documented in this encounter Plan of Treatment Upcoming Encounters Date Type Department Care Team (Late st Contact Info) Description 02/13/2025 10:30 AM CDT Office Visit [facility] IBD and Gastroenterology Center [place] [address] [facility] [address] [place] [address] Kitty Dover, [facility] [address] [facility] [address] [place] [address] documented as of this encounter Visit Diagnoses Diagnosis IBD (inflammatory bowel disease)- Primary Other and unspecified noninfectious gastroenteritis and colitis documented in this encounter Care Teams Iron Miner Blasting Relationship Specialty Start Date End Date Martin Kelley MD PCP - General Internal Medicine 02/16/12 08/14/17 documented as of this encounter
--- OUTSIDE RECORDS SUMMARY | 2024-10-24 05:33 | XMS_ITS | Encounter Summary ---
Author Organization [facility] Address [address] [place] [address] Care Team Providers Care Lead Applier Name Role Phone Martin Kelley MD Primary Care Provider [phone] Reason for Visit * Reason Comments Medication Refill Encounter Details Date Type Department Care Team (Late st Contact Info) Description 02/16/2017 Refill [facility] GASTR[facility]ENTEROLOGY [address] [facility] [address] [place] [address] [address] Ryan MD NO ADDRESS [...] [facility] [place] [address] [place] [address] Kitty Dover, ANP [address] [place] [address] documented as of this encounter Visit Diagnoses Not on filedocumented in this encounter Care Teams Lead Applier Relationship Specialty Start Date End Date Martin Kelley MD PCP - General Internal Medicine 02/16/12 08/14/17 documented as of this encounter
--- OUTSIDE RECORDS SUMMARY | 2024-10-24 05:33 | XMS_ITS | Encounter Summary ---
Author Organization [facility] Address [address] [place] [address] Care Team Providers Care Cutch Cleaner Name Role Phone Martin Kelley MD Primary Care Provider [phone] Reason for Visit * Reason Comments Ulcerative Colitis Encounter Details Date Type Department Care Team (Latest Contact Info) Description 10/08/2015 10:30 AM CONTINUOUS IMPROVEMENT COACH Office Visit [facility] GASTROENTEROLOGY [address] [facility] [address] [place] [address] Lane Ryan MD NO ADDRESS [...] Sign Reading Time Taken Comments Blood Pressure 161/83 10/08/2015 10:06 AM CONTINUOUS IMPROVEMENT COACH Pulse 94 10/08/2015 10:06 AM CONTINUOUS IMPROVEMENT COACH Temperature - - Respiratory Rate - - Oxygen Saturation 97% 10/08/2015 10:06 AM CONTINUOUS IMPROVEMENT COACH Inhaled Oxygen Concentration - - Weight 86 kg (189 lb 9.6 oz) 10/08/2015 10:06 AM CONTINUOUS IMPROVEMENT COACH Height 175.3 cm (5' 9 ) 10/08/2015 10:06 AM CONTINUOUS IMPROVEMENT COACH Body Mass Index 28 10/08/2015 10:06 AM CONTINUOUS IMPROVEMENT COACH documented in this encounter Progress Notes * Lane Ryan MD - 10/08/2015 10:34 AM CST 10/08/2015 Martin Kelley MD PROGRESS NOTE: Edgardo Elkins Date of 1970 HPI: IBD --45-year-old male seen in followup. Patient has complicated history with prior proctocolectomy. Patient had recurrent symptoms then in May of 2014 colonoscopy showed diffuse pouchitis suspicious for Crohn's disease. IBD markers however were more consistent with ulcerative colitis. Patient has been on Humira 40 mg per week over the past year he reports she is doing very well. His bowel motions are solid thick 4-5 a day. He denies rectal bleeding or mucus. He denies abdominal pain. Lab testing showed an adalimumab level of 8.4 with no antibodies. Anal stricture not an issue as long as bowel motions are on the soft side Current Outpatient Prescriptions: metroNIDAZOLE (FLAGYL) 500 mg tablet, Take 1 Tablet (500 mg) by mouth 3 times daily., Disp: 30 Tablet, Rfl: 3 adalimumab (HUMIRA) 40 mg/0.8 mL Syringe Kit, Inject 0.8 mL (40 mg) by subcutaneous injection see administration instructions Provide pens., Disp: 2 Each, Rfl: 6 adalimumab (HUMIRA) 40 mg/0.8 mL Kit, Inject 0.8 mL by subcutaneous injection see administration instructions., Disp: 2 Each, Rfl: 6 adalimumab (HUMIRA) 40 mg/0.8 mL Kit, Inject 0.8 mL by subcutaneous injection see administration instructions. Take 4 inj day 1 and 2 injection day 14 then 1 inj every 2 weeks, Disp: 8 Each, Rfl: 6 metroNIDAZOLE (FLAGYL) 500 mg Oral tablet, Take 1 Tab by mouth 3 times daily., Disp: 60 Tab, Rfl: 3 ondansetron (ZOFRAN ODT) 4 mg Oral TbDL, Place 1 Tab under tongue every 6 hours as needed for Nausea., Disp: 20 Tab, Rfl: none ciprofloxacin (CIPRO) 500 mg Oral tablet, Take 1 Tab by mouth 2 times daily., Disp: 60 Tab, Rfl: 0 HYDROcodone-acetaminophen (NORCO) 5-325 mg Oral tablet, Take 1 Tab by mouth every 4 hours as neededfor Pain, Moderate., Disp: 40 Tab, Rfl: 0 ciprofloxacin (CIPRO) 500 mg Oral tablet, Take 1 Tab by mouth every 12 hours., Disp: 20 Tab, Rfl: 0 amoxicillin-clavulanate (AUGMENTIN) 875-125 mg Oral tablet, Take 1 Tab by mouth every 12 hours., Disp: 20 Tab, Rfl: 0 predniSONE (DELTASONE) 10 mg Oral tablet, Qd, Disp: , Rfl: OTHER, VSL # 3 LABEL: 2 BID, Disp: 60 Each, Rfl: 3 No current facility-administered medications for this visit. [...] polyuria, polydipsia, skin changes PHYSICAL EXAM: BP 161/83 mmHg Pulse 94 Ht 1.753 m (5' 9 ) Wt 86.002 kg (189 lb 9.6 oz) BMI 27.99 kg/m2 SpO2 97% GENERAL: Well developed and in no acute [...] of consolidation or wheezing ABDOMEN: Soft bland RECTAL: Deferred EXTREMITIES: Extremities were without edema. There was no active synovitis. NEURO: Neurologic exam was grossly non-focal. ASSESSMENT: Inflammatory bowel disease questionable UC with pouchitis vs. Crohn's disease. Overall patient is doing very well on weekly Humira PLAN: Will continue weekly Humira Patient reports routine lab studies at [facility] were normal and will get those records for me. Plan endoscopy next summer. This note was transcribed using [facility] computerized voice recognition without a human datastage developer. This report may or may not have been adjusted for typographical, grammatical and syntax errors. Lilian. Lane Ryan MD INUOUS IMPROVEMENT COACH documented in this encounter Plan of Treatment Upcoming Encounters Date Type Department Care Team (Late st Contact Info) Description 02/13/2025 10:30 AM CDT Office Visit [facility] IBD [facility]astro[facility] [place] [address] [place] [address] Kitty Dover ANP [address] [place] [address] [place] [address] documented as of this encounter Visit Diagnoses Diagnosis IBD (inflammatory bowel disease)- Primary Other and unspecified noninfectious gastroenteritis and colitis documented in this encounter Care Teams Cutch Cleaner Relationship Specialty Start Date End Date Martin Kelley MD PCP - General Internal Medicine 02/16/12 08/14/17 documented as of this encounter
--- OUTSIDE RECORDS SUMMARY | 2024-10-24 05:33 | XMS_ITS | Encounter Summary ---
Author Organization [facility] Address [address] [place] [address] Care Team Providers Care Operations Lieutenant Name Role Phone Martin Kelley MD Primary Care Provider [phone] Reason for Visit * Reason Comments Medication Refill Encounter Details Date Type Department Care Team (Late st Contact Info) Description 11/10/2014 Refill [facility] GASTROENTEROLOGY [address] [facility] [address] [place] [address] Lane Ryan MD NO ADDRESS [...] [facility] [place] [address] [place] [address] Kitty Dover, ANP [address] [place] [address] documented as of this encounter Visit Diagnoses Not on filedocumented in this encounter Care Teams Operations Lieutenant Relationship Specialty Start Date End Date Martin Kelley MD PCP - General Internal Medicine 02/16/12 08/14/17 documented as of this encounter
--- OUTSIDE RECORDS SUMMARY | 2024-10-24 05:33 | XMS_ITS | Encounter Summary ---
Author Organization [facility] Address [address] [place] [address] Care Team Providers Care Proposition Player Name Role Phone Martin Kelley MD Primary Care Provider [phone] Reason for Visit * Reason Onset Date Comments Insurance Issues 06/22/2015 Encounter Details Date Type Department Care Team (Late st Contact Info) Description 06/22/2015 Telephone [facility] GASTROENTEROLOGY [address] [facility] [address] [place] [address] Lane Ryan MD NO ADDRESS [...] * Telephone Encounter - Ada Tan - 06/22/2015 1:54 PM CDT Pt called because he is getting a bill from his [facility] that were done in Jun. I gave him # to call [phone]. I called the # also to see what needs to be done or appealed and rep said all appeals have been exhausted. They reduced his bill from $2500 to $250.00 and offer financial assistance he can call same # [phone] and they can help him if he wants to do this its based on combined family income. documented in this encounter Plan of Treatment Upcoming Encounters Date Type Department Care Team (Late st Contact Info) Description 02/13/2025 10:30 AM CDT [facility] [place] [address] [facility] [address] [place] [address] Kitty Dover, [facility] [address] [facility] [address] [place] [address] documented as of this encounter Visit Diagnoses Not on filedocumented in this encounter Care Teams Proposition Player Relationship Specialty Start Date End Date Martin Kelley MD PCP - General Internal Medicine 02/16/12 08/14/17 documented as of this encounter
--- OUTSIDE RECORDS SUMMARY | 2024-10-24 05:33 | XMS_ITS | Encounter Summary ---
Author Organization [facility] Address [address] [place] [address] Care Team Providers Care Floor Nurse Name Role Phone Martin Kelley MD Primary Care Provider [phone] Reason for Visit * Reason Onset Date Comments Medication Question 06/02/2017 Encounter Details Date Type Department Care Team (Late st Contact Info) Description 06/02/2017 Telephone [facility] GASTROENTEROLOGY [address] [facility] [address] [place] [address] Lane Ryan MD NO ADDRESS [...] Telephone Encounter - Ada Tan - 06/02/2017 9:22 AM CDT Pt is in need of hip surgery and his dr would like him ot get off Humira for this. Pt would like todiscuss this with you. [phone] documented in this encounter Plan of Treatment Upcoming Encounters Date Type Department Care Team (Late st Contact Info) Description 02/13/2025 10:30 AM CDT Office Visit [facility] IBD and Gastroenterology [facility] [place] [address] [place] [address] Kitty Dover, [facility] [address] [place] [address] [place] [address] documented as of this encounter Visit Diagnoses Not on filedocumented in this encounter Care Teams Floor Nurse Relationship Specialty Start Date End Date Martin Kelley MD PCP - General Internal Medicine 02/16/12 08/14/17 documented as of this encounter
--- OUTSIDE RECORDS SUMMARY | 2024-10-24 05:33 | XMS_ITS | Encounter Summary ---
Author Organization [facility] Address [address] [place] [address] Care Team Providers Care Class B Truck Driver Name Role Phone Martin Kelley MD Primary Care Provider [phone] Reason for Visit * Reason Onset Date Comments Medication Refill 10/19/2015 Encounter Details Date Type Department Care Team (Late st Contact Info) Description 10/19/2015 Refill [facility] GASTROENTEROLOGY [address] [facility] [address] [place] [address] Lane Ryan MD NO ADDRESS [...] * Telephone Encounter - Kadie Nye - 10/19/2015 9:31 AM CST Patient requested 90 day supply E PROCESS OPERATOR documented in this encounter Plan of Treatment Upcoming Encounters Date Type Department Care Team (Late st Contact Info) Description 02/13/2025 10:30 AM CDT Office Visit [facility] IBD and Gastroenterology [facility] [place] [address] [place] [address] Kitty Dover, [facility] [address] [place] [address] [place] [address] documented as of this encounter Visit Diagnoses Diagnosis IBD (inflammatory bowel disease)- Primary Other and unspecified noninfectious gastroenteritis and colitis documented in this encounter Care Teams Class B Truck Driver Relationship Specialty Start Date End Date Martin Kelley MD PCP - General Internal Medicine 02/16/12 08/14/17 documented as of this encounter
--- OUTSIDE RECORDS SUMMARY | 2024-10-24 05:33 | XMS_ITS | Encounter Summary ---
Author Organization [facility] Address [address] [place] [address] Care Team Providers Care Director Of Scientific Research Name Role Phone Martin Kelley MD Primary Care Provider [phone] Reason for Visit * Outpatient Services (Routine) - Closed Specialty Diagnoses / Procedures Referred By Contac t Referred To Contact Laboratory Diagnoses . Procedures LAB Lane Ryan MD NO ADDRESS ON FILE [address] [address] Referral ID Status Reason Start Date Expiration Date Visits Re quested Visits Authorized [id number] Closed 06/24/2014 07/25/2015 1 1 Encounter Details Date Type Department Care Team (Latest Contact Info) Description 06/24/2014 1:21 PM CDT - 06/24/2014 11:59 PM T Hospital Encounter [facility] Laboratory Services [address] [address] [address] Ryan MD NO ADDRESS ON FILE [...] Sig Dispensed Refills Start Date End Date adalimumab (HUMIRA) 40 mg/0.8 mL subCUT KitIndications:IBD (inflammatory bowel disease) Inject 0.8 mL by subcutaneous injection see administration instructions. Take 4 inj day 1 and 2 injection day 14 then 1 inj every 2 weeks 8 Each 6 07/30/2013 07/07/2014 metroNIDAZOLE (FLAGYL) 500 mg Oral tabletIndications:Leila chitis Take 1 Tab by mouth 3 times daily. 60 Tab 3 01/29/2013 08/24/2017 ondansetron (ZOFRAN ODT) [address] 1 Tab under tongue every 6 hours as needed for Nausea. 20 Tab none 07/26/2012 08/24/2017 ciprofloxacin (CIPRO) 500 mg Oral tabletIndications:Ulc erative colitis Take 1 Tab by mouth 2 times daily. 60 Tab 0 07/16/2012 08/24/2017 HYDROcodone-acetamino phen (NORCO) 5-325 mg Oral tablet Take 1 Tab by mouth every 4 hours as needed for Pain, Moderate. 40 Tab 0 06/27/2012 08/24/2017 ciprofloxacin (CIPRO) 500 mg Oral tablet Take 1 Tab by mouth every 12 hours. 20 Tab 0 06/27/2012 08/24/2017 amoxicillin-clavulana te (AUGMENTIN) 875-125 mg Oral tablet Take 1 Tab by mouth every 12 hours. 20 Tab 0 06/27/2012 08/24/2017 predniSONE (DELTASONE) 10 mg Oral tablet Qd 08/24/2017 OTHER VSL # 3 LABEL: 2 BID 60 Each 3 04/11/2012 08/24/2017 documented as of this encounter Plan of Treatment Upcoming Encounters Date Type Department Care Team (Late st Contact Info) Description 02/13/2025 10:30 AM CDT Office Visit [facility] IBD [facility] Gastro[facility]ology [facility] [place] [address] [place] [address] Kitty Dover ANP [address] [place] [address] Scheduled Orders Name Type Priority Associated Diagnoses Orde r Schedule REFERENCE LAB PROCESSING FEE Lab Routine Ulcerative colitis, unspecified ONE TIME for 1 Occurrences starting 06/24/2014 until 06/24/2014 documented as of this encounter Visit Diagnoses Diagnosis Ulcerative colitis, unspecified- Primary documented in this encounter Care Teams Director Of Scientific Research Relationship Specialty Start Date End Date Martin Kelley MD PCP - General Internal Medicine 02/16/12 08/14/17 documented as of this encounter
--- OUTSIDE RECORDS SUMMARY | 2024-10-24 05:33 | XMS_ITS | Encounter Summary ---
Author Organization [facility] Address [address] [place] [address] Care Team Providers Care Jar Filler Name Role Phone Jasiel Freeman MD Primary Care Provider Encounter Details Date Type Department Care Team (Late st Contact Info) Description 08/29/2017 Abstract [facility] GASTROENTEROLOGY [address] [facility] [address] [place] [address] Lane Ryan MD NO ADDRESS [...] [facility] IBD and Gastroenterology [facility] [place] [address] [place] [address] Kitty Dover, [facility] [address] [place] [address] documented as of this encounter Visit Diagnoses Not on filedocumented in this encounter Care Teams Jar Filler Relationship Specialty Start Date End Date Jasiel Freeman MD [address] [place] [address] PCP - General Family Practice 08/15/17 documented as of this encounter
--- OUTSIDE RECORDS SUMMARY | 2024-10-24 05:33 | XMS_ITS | Encounter Summary ---
Author Organization [facility] Address [address] [place] [address] Care Team Providers Care Ceramic Tile Mechanic Name Role Phone Martin Kelley MD Primary Care Provider [phone] Reason for Visit * Reason Onset Date Comments Medication Review 07/18/2014 Encounter Details Date Type Department Care Team (Late st Contact Info) Description 07/18/2014 Telephone [facility] GASTROENTEROLOGY [address] [facility] [address] [place] [address] Lane Ryan MD NO ADDRESS ON FILE Medication Review Social History Tobacco Use Types Packs/Day Years [...] Telephone Encounter - Lane Ryan MD - 07/23/2014 10:37 AM CDT humira q 2 wks jf * Telephone Encounter - Surekha Nyeica B - 07/18/2014 11:53 AM CDT Pharmacy needs clarification of directions for Humira. Gave verbal orders of 40 mg. Sc every two weeks. Please change directions to reflect this. documented in this encounter Plan of Treatment Upcoming Encounters Date Type Department Care Team (Late st Contact Info) Description 02/13/2025 10:30 AM CDT Office Visit [facility] IBD and Gastroenterology [facility] [place] [address] [place] [address] Kitty Dover, [facility] [address] [place] [address] [place] [address] documented as of this encounter Visit Diagnoses Not on filedocumented in this encounter Care Teams Ceramic Tile Mechanic Relationship Specialty Start Date End Date Martin Kelley MD PCP - General Internal Medicine 02/16/12 08/14/17 documented as of this encounter
--- OUTSIDE RECORDS SUMMARY | 2024-10-24 05:33 | XMS_ITS | Encounter Summary ---
Author Organization [facility] Address [address] [place] [address] Care Team Providers Care Toolroom Checker Name Role Phone Martin Kelley MD Primary Care Provider [phone] Encounter Details Date Type Department Care Team (Late st Contact Info) Description 07/17/2014 Orders Only [facility] GASTROENTEROLOGY [address] [facility] [address] [place] [address] Lane Ryan MD NO ADDRESS [...] [facility] IBD [facility] Gastro[facility] [place] [address] [address] Kitty Dover, M[facility] [address] [place] [address] documented as of this encounter Procedures Procedure Name Priority Date/Time Associated Diagnosis Comments CROHN'S PROGNOSTIC PANEL Routine 06/26/2014 documented in this encounter Results * CROHN'S PROGNOSTIC PANEL (06/26/2014) Blood specimen (specimen) Lane Ryan MD CHEMISTRY ORDERABLES [facility]# [id number] [address] [place] [address] documented in this encounter Visit Diagnoses Not on filedocumented in this encounter Care Teams Toolroom Checker Relationship Specialty Start Date End Date Martin Kelley MD PCP - General Internal Medicine 02/16/12 08/14/17 documented as of this encounter
--- OUTSIDE RECORDS SUMMARY | 2024-10-24 05:33 | XMS_ITS | Encounter Summary ---
Author Organization [facility] Address [address] [place] [address] Care Team Providers Care Cutter Machine Tender Name Role Phone Jasiel Freeman MD Primary Care Provider Reason for Visit * Auth/Cert Specialty Diagnoses / Procedures Referred By Lambert pizarro Referred To Contact Gastroenterology Diagnoses UC (ulcerative colitis) UC (ulcerative colitis) [K51.90] Procedures COLONOSCOPY [facility] [address] [place] [address] Referral ID Status Reason Start Date Expiration Date Visits Re quested Visits Authorized [id number] 1 1 Encounter Details Date Type Department Care Team (Latest Contact Info) Description 08/24/2017 11:33 AM CDT - 08/24/2017 2:11 PM T Hospital Encounter [facility] [employer] [address] [place] [address] Lane Ryan MD NO ADDRESS ON FILE UC (ulcerative colitis) Discharge Disposition: Home or Self Care Social [...] Sign Reading Time Taken Comments Blood Pressure 111/63 08/24/2017 1:37 PM CDT Pulse 79 08/24/2017 1:37 PM CDT Temperature 36.4 ??C (97.5 ??F) 08/24/2017 1:00 PM CD T Respiratory Rate 16 08/24/2017 1:37 PM CDT Oxygen Saturation 100% 08/24/2017 1:37 PM CDT Inhaled Oxygen Concentration - - Weight 84.4 kg (186 lb) 08/24/2017 12:14 PM CDT Height 175.3 cm (5' 9 ) 08/24/2017 12:14 PM CDT Body Mass Index 27.47 08/24/2017 12:14 PM CDT documented in this encounter Discharge Instructions * Discharge Instructions* Rajni Mehta RN - 08/24/2017 1:26 PM CDT If you should experience: Severe abdominal pain, chest pain, fever, chills, shortness of breath, inability to swallow, abnormal bleeding or any other concerns following your procedure. Call your physician or come to the Emergency Department. Please follow these instructions: 1. During your procedure you may have received sedation. You should rest at home for the remainder of the day. You should NOT drive or perform any activities that require a completely alert mind during this recovery period. Alcohol should NOT be used for at least 24 hours. 2. Following your upper endoscopy, you may have a sore throat. Try gargling with warm water or use Chloraseptic lozenges as needed. Once you are fully alert and feel you can swallow without difficulty, you may have a light meal. You may then progress on to your usual diet, unless otherwise instructed by your physician. 3. This includes your current and historical medications prescribed by your physician (s). Continue your current medications and any newly prescribed during this visit. If you have questions, please call the physician who prescribed the medication. documented in this encounter Medications at Time of Discharge Medication Sig Dispensed Refills Start Date End Date TESTOSTERONE, BULK, MISC 1 mL by Misc.(Non-Drug; Combo Route) route. HUMIRA 40 mg/0.8 mL Syringe Kit INJECT [...] 07/16/2014 12/28/2017 documented as of this encounter H&P Notes * Lane Ryan MD - 08/24/2017 4:53 PM CDT PRE PROCEDURE EVALUATION - Colonoscopy DATE: 08/24/2017 HPI: This is a 46 y.o. male patient scheduled for pouchoscopy for ibd Patient Active Problem List Diagnosis Date Noted ??? Abdominal pain 06/26/2012 ??? Inflammatory bowel disease 06/26/2012 ??? Malnutrition 02/27/2012 ??? Protein calorie malnutrition 02/24/2012 ??? Ulcerative colitis 02/23/2012 ??? Pouchitis 02/23/2012 ??? Acute bronchitis 02/23/2012 ??? SIRS (systemic inflammatory response syndrome) 02/23/2012 ??? Metabolic acidosis 02/23/2012 ??? Sepsis(995.91) 02/23/2012 ??? JORGE (acute kidney injury) 02/23/2012 ??? Hyponatremia 02/22/2012 ??? Abdominal pain 02/22/2012 Past Medical History: Diagnosis Date ??? Arthritis ??? Asthma as a child ??? 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 Ulcerative colitis ??? Unspecified adverse effect of anesthesia violent after 1st surgery Past Surgical History: Procedure Laterality Date ??? HX COLECTOMY 2001 ??? WY COLONOSCOPY FLX DX W/COLLJ SPEC WHEN PFRMD 12/08/2009 COLONOSCOPY performed by LOUISE RIZO at [facility] ??? [place] COLONOSCOPY FLX DX W/COLLJ SPEC WHEN PFRMD 06/09/[address] performed by Lane Ryan MD at [facility] ??? WY DILATION RECTAL STRICTURE W ANEST 06/12/2012 RECTAL STRICTURE DILATATION performed by Lane Ryan MD at [facility] ??? WY ENDOSCOPY UPPER SMALL INTESTINE 06/12/2012 SMALL BOWEL ENTEROSCOPY performed by Lane Ryan MD at [facility] ??? [place] ENDOSCOPY UPPER SMALL INTESTINE W/BIOPSY 02/28/2012 BOWEL SMALL BIOPSY ENDOSCOPIC performed by Lane Ryan MD at [facility] ??? WY ESOPHAGOGASTRODUODENOSCOPY TRANSORAL DIAGNOSTIC 02/28/2012 ESOPHAGOGASTRODUODENOSCOPY performed by Lane Ryan MD at [facility] ??? WY NDSC EVAL INTSTINAL POUCH DX W/COLLJ SPEC SPX 02/16/2012 POUCHOSCOPY performed by Louise Rizo MD at [facility] ??? WY SIGMOIDOSCOPY FLX DX W/COLLJ SPEC BR/WA IF PFRMD 02/16/2012 SIGMOIDOSCOPY FLEXIBLE performed by Louise Rizo MD at [facility] No prescriptions prior to admission. Allergies Allergen Reactions ??? Remicade [Infliximab] Rash Social History Substance Use Topics ??? Smoking status: Former Smoker Packs/day: 0.50 Years: 10.00 Types: Cigarettes Quit date: 06/09/2011 ??? Smokeless tobacco: Not on file Comment: off & on ??? Alcohol use Yes Comment: rarely Family History Problem Relation Age of Onset ??? Heart Disease Father ??? Hypertension Mother ??? Healthy Sister ??? Healthy Brother ??? Colon Cancer Neg Hx Head: Normal Lungs:Clear Airway: Normal Heart:Regular rythem Abdomen: Soft Neurologic: unremarkable ASA Classification: per anesthesia eval Informed Consent: The patient was informed of [...] onhistory or physical examination precluding the procedure. IMPRESSION & PLAN: Indications for procedure as noted in HPI. Will proceed with the above mentioned procedure(s) as scheduled. Lane Ryan MD documented in this encounter Procedure Notes * Lane Ryan MD - 08/24/2017 9:05 PM CDTAssociated Order(s): GI REPORT [place], [place] [address] Gastroenterology CSN: [id number] DATE OF SERVICE: ENDOSCOPY REPORT DATE OF SERVICE 08/24/2017. Edgardo is a 46-year-old male who undergoes pouchoscopy and evaluation of inflammatory bowel disease. The patient has a remote history of inflammatory bowel disease with a previous proctocolectomy. Thepatient had been having significant issues with this pouch. He had had inflammatory changes and repeated hospitalizations. Most recently, the patient had been on Humira 40 mg once weekly. He states he is doing very well. He denies rectal or pelvic pain. He denies passing blood. He has 3 to 6 bowel motions a day. He undergoes endoscopy now for evaluation. PROCEDURE With the patient on left side, perianal area was inspected with mild erythema. Sedation was provided by Anesthesia. A rectal examination shows a very granular somewhat narrowed anal canal/distal pouch. This was dilated with my index finger. The pediatric colonoscope was introduced into the pouch and advanced up into the small intestine approximately 70 cm. In the small intestine, there was moderate inflammation. There were multiple erosions and superficial ulcers. There was erythematous mucosa and biopsies were obtained. At a level of what I thought was the very beginning portions of the pouch, there was also significant inflammation with linear ulcerations and some narrowing. The mucosa appears somewhat irregular and multiple biopsies of this area were obtained. The pouch itself shows moderate erythema. No discrete ulcers were seen. In the distal pouch just proximal to the anus, was granular thickened mucosa and I will also obtained biopsies of that area. Overall, the patient tolerated the procedure well. DIAGNOSIS Moderate inflammation of the pouch including the small intestine and distal pouch, rule out neoplasm. RECOMMENDATIONS 1. We will await results of the biopsies. 2. I have obtained stool for C. diff. 3. The patient is planning to have a total hip x-ray and is going to stop his Humira. I believe that subsequent to this, we may consider changing his Humira therapy. 4. We will get Humira antibodies for further evaluation. ZANEF:MEDQ DID: [id number] Dictated by: Lane Ryan MD * Lane Ryan MD - 08/24/2017 1:20 PM CDTAssociated Order(s): GI REPORT [facility] Endoscopy Patient Name: Edgardo Elkins Procedure Date: 08/24/2017 Date of : 1970 Admit Type: Outpatient Attending MD: Lane Ryan MD Procedure: Images Only-Procedure Report in [facility] Providers: Lane Ryan MD Referring MD: Jasiel Freeman MD Submitted Lane Ryan MD Number of Addenda: [address]; [place] [address] documented in this encounter Plan of Treatment Upcoming Encounters Date Type Department Care Team (Late st Contact Info) Description 02/13/2025 10:30 AM CDT Office Visit [facility] [place] [address] [facility] [address] [place] [address] Kitty Dover ANP [address] [place] [address] documented as of this encounter Procedures Procedure Name Priority Date/Time Associated Diagnosis Comments GI REPORT 08/24/2017 9:05 PM CDT ADALIMUMAB LEVEL WITH REFLEX AB Stat 08/24/2017 2:00 PM CDT PATHOLOGY Pathology 08/24/2017 1:05 PM CDT UC (ulcerative colitis) C. DIFFICILE DETECTION Routine 08/24/2017 1:04 PM CDT UC (ulcerative colitis) SMALL BOWEL ENTEROSCOPY 08/24/2017 12:41 PM CDT UC (ulcerative colitis) documented in this encounter Results * GI REPORT (08/24/2017 9:05 PM CDT) Narrative Procedure Note Lane Ryan MD - 08/24/2017 9:05 PM CDT [place], [place] [address] Gastroenterology CSN: [id number] DATE OF SERVICE: ENDOSCOPY REPORT DATE OF SERVICE 08/24/2017. Edgardo is a 46-year-old male who undergoes pouchoscopy and evaluation ofinflammatory bowel disease. The patient has a remote history of inflammatory bowel disease with aprevious proctocolectomy. The patient had been having significant issueswith this pouch. He had had inflammatory changes and repeatedhospitalizations. Most recently, the patient had been on Humira 40 mgonce weekly. He states he is doing very well. He denies rectal orpelvic pain. He denies passing blood. He has 3 to 6 bowel motions a day.He undergoes endoscopy now for evaluation. PROCEDURE With the patient on left side, perianal area was inspected with milderythema. Sedation was provided by Anesthesia. A rectal examination shows a very granular somewhat narrowed analcanal/distal pouch. This was dilated with my index finger. The pediatriccolonoscope was introduced into the pouch and advanced up into the smallintestine approximately 70 cm. In the small intestine, there was moderate inflammation. There weremultiple erosions and superficial ulcers. There was erythematous mucosaand biopsies were obtained. At a level of what I thought was the very beginning portions of the pouch,there was also significant inflammation with linear ulcerations and somenarrowing. The mucosa appears somewhat irregular and multiple biopsies ofthis area were obtained. The pouch itself shows moderate erythema. No discrete ulcers were seen. In the distal pouch just proximal to the anus, was granular thickenedmucosa and I will also obtained biopsies of that area. Overall, the patient tolerated the procedure well. DIAGNOSIS Moderate inflammation of the pouch including the small intestine anddistal pouch, rule out neoplasm. RECOMMENDATIONS 1. We will await results of the biopsies. 2. I have obtained stool for C. diff. 3. The patient is planning to have a total hip x-ray and is going to stophis Humira. I believe that subsequent to this, we may consider changinghis Humira therapy. 4. We will get Humira antibodies for further evaluation. JSF:MEDQ DID:[id number] Dictated by: Lane Ryan MD Transcriptions Lane Ryan MD - 08/24/2017 1:20 PM CDT [facility] Endoscopy Patient Name: Edgardo Elkins Procedure Date: 08/24/2017 Date of : 1970 Admit Type: Outpatient Attending MD: Lane Ryan MD Procedure: Images Only-Procedure Report in [facility] Providers: Lane Ryan MD Referring MD: Jasiel Freeman MD Submitted Lane Ryan MD Number of Addenda: [phone] ; [place] [address] Lane Ryan MD GI PROCEDURE [facility] * ADALIMUMAB CONCENTRATION AND AB (08/24/2017 2:00 PM CDT) ADALIMUMAB LEVEL AND AB See Scanned Report 08/29/2017 10:29 AM EDI PROGRAMMER TIN Blood Venipuncture / Unknown 08/24/2017 2:00 PM CDT 08/24/2017 2:[address] Ryan MD CHEMISTRY ORDERABLES Performing Organization Address City/[facility]/ZIP Co de Phone Number [facility] [address] [place] [address] * PATHOLOGY (08/24/2017 1:05 PM CDT) CASE REPORT Surgical Pathology Report ? Case: [id number] ? Authorizing Provider: ??Lane Ryan MD ?Collected: ? 08/24/2017 01:05 PM ? Ordering Location: ? [facility] [place] ??Received: ?08/24/2017 02:43 PM ? Pathologist: ? Usha He MD ? Specimens: ?? A) - Small Intestine, small intestine bx ? B) - Small Intestine, anastimosis bx ? C) - Small Intestine, perianal pouch ? 08/25/2017 3:36 PM T [employer] - [facility] FINAL DIAGNOSIS Small intestine, not further specified, biopsy: - Active enteritis with ulceration. - No granulomas or dysplasia. Small intestine, anastomosis, biopsy: - Active enteritis. - Fragments of ulcer. - No granulomas or dysplasia. Small intestine, perianal pouch, biopsy: - Active enteritis with focal ulceration. - No granulomas or dysplasia. 08/25/2017 3:36 PM T [employer] [facility] IMEN DESCRIPTION (A) Small intestine small bowel IBD; (B) small intestine anastomosis IBD; (C) small bowel perianal patch IBD. 08/25/2017 3:36 PM [facility] OPERATIVE PROCEDURE Small bowel enteroscopy. 08/25/2017 3:36 PM [facility] CLINICAL DIAGNOSIS Ulcerative colitis. ICD Code K51.9. 08/25/2017 3:36 PM [facility] GROSS DESCRIPTION Received are three containers labeled with the patient's name, Edgardo Elkins. The first container is additionally labeled small intestine. It contains six pieces of light newman tissue ranging up to 0.2 cm in maximum dimension, marked with hematoxylin, placed in lens paper and submitted in cassette A1. The second container labeled anastomosis small bowel contains four pieces of light newman tissue ranging up to 0.2 cm in maximum dimension, marked with hematoxylin, placed in lens paper and submitted in cassette B1. The third container is additionally labeled perianal pouch. It contains five pieces of light newman tissue ranging up to 0.2 cm in maximum dimension, marked with hematoxylin, placed in lens paper and submitted in cassette C1. BBK/cgk 08/25/2017 3:36 PM [facility] MICROSCOPIC DESCRIPTION The slides labeled [id number] and Edgardo Elkins. The first small intestinal biopsy shows fragments of ulcer and fragments of small intestine with marked acute inflammation, including cryptitis and crypt abscesses. The surface is eroded in multiple areas. The ulcer fragments contain abundant granulation tissue and some isolated, large cells, which may be reactive stromal cells. A CMV stain is performed to exclude viral infection and is negative. There is no evidence of dysplasia. No granulomas are identified. The anastomosis biopsy also shows fragments of ulcer and fragments of small intestine with blunted villi and active inflammation in the lamina propria. There is focal cryptitis. There is no evidence of dysplasia or granulomas. The perianal pouch shows small fragments of ulcer and fragments of small intestinal mucosa with well-maintained villous architecture. There is more mild active inflammation in the lamina propria and focal cryptitis. There are no granulomas or dysplasia. This case was shared at the Intradepartment Case Review Conference. 08/25/2017 3:36 PM CDT [facility] COMMENT Special stain and/or immunohistochemical results are interpreted with controls that demonstrate appropriate staining reactions. Note on use of immunocytochemistry reagents: This test was developed and its performance characteristic determined by [facility], Department of Laboratory Medicine. It has not been cleared or approved by the U.S. Food and Drug Administration. The FDA has determined that such clearance or approval is not necessary. The test is used for clinical purpose. It should not be regarded as investigational or for research. This laboratory is certified to perform high complexity testing. Case types starting with WS, WF, WB and WH are performed by [address], [address]. All other case types are performed by [place] [address] [facility] [address]. 08/25/2017 3:36 PM CDT [facility] Tissue (Small Intestine) 08/24/2017 1:05 PM CDT 08/24/2017 2:43 PM CDT Comment:IBD Tissue specimen (specimen) (Small Intestine) 08/24/2017 1:05 PM CDT 08/24/2017 2:43 PM CDT Comment:IBD Tissue specimen (specimen) (Small Intestine) 08/24/2017 1:05 PM CDT 08/24/2017 2:43 PM CDT Comment:IBD Lane Ryan MD PATHOLOGY/CYTOLOGY O RDERABLES [facility] CLIA# [id number] [address] [place] [address] [place] [address] * CLOSTRIDIUM DIFFICILE DETECTION (08/24/2017 1:04 PM CDT) TOXIGENIC C DIFFICILE Not Detected Not Detected 08/24/2017 4:50 PM CDT [facility] Stool STOOL SPECIMEN / Unknown Collection / Unknown 08/24/2017 1:04 PM CDT 08/24/2017 2:30 PM CDT Narrative [facility] - 08/24/2017 4:50 PM CDT This assay is used to detect Toxigenic Clostridium difficile target(B gene) DNA sequences in unformed stool specimens. ??If toxigenic C. difficile is not detected, but clinical suspicion is high please consult ID for consultation and potential repeat testing. ??This test should not be used as a test of cure. Lane Ryan MD MICROBIOLOGY - GENER AL ORDERABLES [facility]# [id number] [address] [place] [address] documented in this encounter Visit Diagnoses Diagnosis UC (ulcerative colitis) Ulcerative colitis, unspecified documented in this encounter Administered Medications Inactive Administered Medications - up to 3 most recent administrations Medication Order MAR Action Action Date Dose Rate Site lactated Ringers solution IV, at 125 mL/hr, PRE-PROCEDURE CONTINUOUS, Starting on Rach 08/24/17 at 1230, Until Rach 08/24/17 at 1638, Routine, Pre-Procedure Continue from Pre-Op 08/24/2017 12:28 PM CDT New Bag 08/24/2017 12:27 PM CDT 125 mL/hr documented in this encounter Active and Recently Administered Medications Times are shown in CDT. Continuous Medication Order 08/22/2017 08/23/2017 08/24/2017 lactated Ringers solution IV, at 125 mL/hr, PRE-PROCEDURE CONTINUOUS, Starting on Rach 08/24/17 at 1230, Until Rach 08/24/17 at 1638, Routine, Pre-Procedure 1227 (New Bag - Prov ider: Riya Gutierrez RN)1228 (Continue from Pre-Op - Provider: Evelyn Lopez CRNA)1312 (Fluid Volume - Provider: Evelyn Lopez CRNA) documented in this encounter Care Teams Cutter Machine Tender Relationship Specialty Start Date End Date Jasiel Freeman MD [address] [place] [id number] PCP - General Family Practice 08/15/17 documented as of this encounter
--- OUTSIDE RECORDS SUMMARY | 2024-10-24 05:33 | XMS_ITS | Encounter Summary ---
Author Organization [facility] Address [address] [place] [address] Care Team Providers Care Concrete Paver Name Role Phone Martin Kelley MD Primary Care Provider [phone] Reason for Visit * Reason Onset Date Comments New Prescription Request 11/25/2014 Encounter Details Date Type Department Care Team (Late st Contact Info) Description 11/25/2014 Telephone [facility]STRO[facility]OLOGY [address] [facility] [address] [place] [address] Lane Ryan MD NO ADDRESS [...] * Telephone Encounter - Ada Tan - 11/25/2014 12:53 PM CST Rep calling to get script for pt for Humira she says he now has ins with [facility] . We do not show any change I will call pt to get updated info so we can get new auth approved. Called pt was undable to lm no vm. [employer] documented in this encounter Plan of Treatment Upcoming Encounters Date Type Department Care Team (Late st Contact Info) Description 02/13/2025 10:30 AM CDT Office Visit [facility] IBD [facility]astro[facility]ology [facility] [place] [address] [facility] [address] [place] [address] Kitty Dover, ANP [address] [place] [address] documented as of this encounter Visit Diagnoses Not on filedocumented in this encounter Care Teams Concrete Paver Relationship Specialty Start Date End Date Martin Kelley MD PCP - General Internal Medicine 02/16/12 08/14/17 documented as of this encounter
--- OUTSIDE RECORDS SUMMARY | 2024-10-24 05:33 | XMS_ITS | Encounter Summary ---
Author Organization [facility] Address [address] [place] [address] Care Team Providers Care Veneer Jointer Helper Name Role Phone Martin Kelley MD Primary Care Provider [phone] Reason for Visit * Reason Onset Date Comments New Prescription Request 08/02/2016 Encounter Details Date Type Department Care Team (Late st Contact Info) Description 08/02/2016 Telephone [facility] GASTROENTEROLOGY [address] [facility] [address] [place] [address] Lane Ryan MD NO ADDRESS [...] Kadie Nye - 08/03/2016 10:09 AM CDT Called in prescription for Flagyl and Compazine. * Telephone Encounter - Kadie Nye - 08/02/2016 3:49 PM CDT Pharmacy is requesting a new prescription. documented in this encounter Plan of Treatment Upcoming Encounters Date Type Department Care Team (Late st Contact Info) Description 02/13/2025 10:30 AM CDT Office Visit [facility] [place] [address] [place] [address] Kitty Dover, [facility] [address] [place] [address] [place] [address] documented as of this encounter Visit Diagnoses Not on filedocumented in this encounter Care Teams Veneer Jointer Helper Relationship Specialty Start Date End Date Martin Kelley MD PCP - General Internal Medicine 02/16/12 08/14/17 documented as of this encounter
--- OUTSIDE RECORDS SUMMARY | 2024-10-24 05:33 | XMS_ITS | Encounter Summary ---
Author Organization [facility] Address [address] [place] [address] Care Team Providers Care Motor Expert Name Role Phone Martin Kelley MD Primary Care Provider [phone] Reason for Visit * Reason Onset Date Comments Results 07/22/2014 Encounter Details Date Type Department Care Team (Late st Contact Info) Description 07/22/2014 Telephone [facility] GASTROENTEROLOGY [address] [facility] [address] [place] [address] Katie Steele MD NO ADDRESS ON FILE Results Social [...] encounter Miscellaneous Notes * Telephone Encounter - Lani Noriega - 07/22/2014 9:22 AM CDT Patient informed labs/ pathology were OK. * Telephone Encounter - Lani Noriega - 07/22/2014 9:19 AM CDT Message copied by LANI NORIEGA on MonJul 22, 2014 9:19 AM ------ Message from: KATIE STEELE Created: MonJul 21, 2014 4:53 PM Call and tell lab/path ok ------ documented in this encounter Plan of Treatment Upcoming Encounters Date Type Department Care Team (Late st Contact Info) Description 02/13/2025 10:30 AM CDT Office Visit [facility] IBD and Gastroenterology [facility] [place] [address] [facility] [address] [place] [address] Kitty Dover, [facility] [address] [place] [address] documented as of this encounter Visit Diagnoses Not on filedocumented in this encounter Care Teams Motor Expert Relationship Specialty Start Date End Date Martin Kelley MD PCP - General Internal Medicine 02/16/12 08/14/17 documented as of this encounter
--- OUTSIDE RECORDS SUMMARY | 2024-10-24 05:33 | XMS_ITS | Encounter Summary ---
Author Organization [facility] Address [address] [place] [address] Care Team Providers Care Pipe Line Repairer Name Role Phone Martin Kelley MD Primary Care Provider [phone] Encounter Details Date Type Department Care Team (Late st Contact Info) Description 11/11/2016 Abstract [facility] GASTROENTEROLOGY [address] [facility] [address] [place] [address] Lane Ryan MD NO ADDRESS [...] 10:30 AM CDT Office Visit [facility] IBD and Gastro[facility]ology [facility] [place] [address] [place] [address] Kitty Dover, MIRTA [address] [place] [address] documented as of this encounter Visit Diagnoses Not on filedocumented in this encounter Care Teams Pipe Line Repairer Relationship Specialty Start Date End Date Martin Kelley MD PCP - General Internal Medicine 02/16/12 08/14/17 documented as of this encounter
--- OUTSIDE RECORDS SUMMARY | 2024-10-24 05:33 | XMS_ITS | Encounter Summary ---
Author Organization [facility] Address [address] [place] [address] Care Team Providers Care Shot Bagger Name Role Phone Martin Kelley MD Primary Care Provider [phone] Reason for Visit * Reason Comments Medication Refill Encounter Details Date Type Department Care Team (Late st Contact Info) Description 06/20/2016 Refill [facility] GASTROENTEROLOGY [address] [facility] [address] [place] [address] Lane Ryan MD NO ADDRESS [...] AM CDT Office Visit [facility] IBD and Gastroenterology Center [place] [address] [place] [address] Kitty Dover, ANP [address] [place] [address] documented as of this encounter Visit Diagnoses Not on filedocumented in this encounter Care Teams Shot Bagger Relationship Specialty Start Date End Date Martin Kelley MD PCP - General Internal Medicine 02/16/12 08/14/17 documented as of this encounter
--- OUTSIDE RECORDS SUMMARY | 2024-10-24 05:33 | XMS_ITS | Encounter Summary ---
Author Organization [facility] Address [address] [place] [address] Care Team Providers Care Trombone Slide Assembler Name Role Phone Martin Kelley MD Primary Care Provider [phone] Reason for Visit * Reason Onset Date Comments Abdominal Pain 08/02/2016 Encounter Details Date Type Department Care Team (Late st Contact Info) Description 08/02/2016 Telephone [facility] GASTROENTEROLOGY [address] [facility] [address] [place] [address] Lane Ryan MD NO ADDRESS ON FILE Abdominal Pain Social History Tobacco Use Types [...] Telephone Encounter - Lane Ryan MD - 08/02/2016 11:29 AM CDT Feels like his pouch is acting up. wants Flagyl with Compazine. Will order. If symptoms persist advised to come in for proctoscopy. Laen Ryan MD, FACP;;AGAF documented in this encounter Plan of Treatment Upcoming Encounters Date Type Department Care Team (Late st Contact Info) Description 02/13/2025 10:30 AM CDT Office Visit 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
--- OUTSIDE RECORDS SUMMARY | 2024-10-24 05:33 | XMS_ITS | Encounter Summary ---
Author Organization [facility] Address [address] [place] [address] Care Team Providers Care Barber Tool Sharpener Name Role Phone Martin Kelley MD Primary Care Provider [phone] Encounter Details Date Type Department Care Team (Late st Contact Info) Description 08/25/2014 Abstract [facility] GASTROENTEROLOGY [address] [facility] [address] [place] [address] Lane Ryan MD NO ADDRESS [...] [place] [address] [place] [address] Kitty Dover, MIRTA [address] [place] [address] documented as of this encounter Visit Diagnoses Not on filedocumented in this encounter Care Teams Barber Tool Sharpener Relationship Specialty Start Date End Date Martin Kelley MD PCP - General Internal Medicine 02/16/12 08/14/17 documented as of this encounter
--- OUTSIDE RECORDS SUMMARY | 2024-10-24 05:33 | XMS_ITS | Encounter Summary ---
Author Organization [facility] Address [address] [place] [address] Care Team Providers Care Glass Scullion Name Role Phone Jasiel Freeman MD Primary Care Provider Reason for Visit * Auth/Cert Specialty Diagnoses / Procedures Referred By Lambert pizarro Referred To Contact Gastroenterology Diagnoses UC (ulcerative colitis) UC (ulcerative colitis) [K51.90] Procedures COLONOSCOPY [facility] [address] [place] [address] Referral ID Status Reason Start Date Expiration Date Visits Re quested Visits Authorized [id number] 1 1 Encounter Details Date Type Department Care Team (Late st Contact Info) Description 08/24/2017 12:45 PM CDT - 08/24/2017 1:15 PM CDT Surgery [facility] S [employer] [address] [facility] [place] [address] Lane Ryan MD NO ADDRESS ON FILE SMALL BOWEL ENTEROSCOPY Surgery Details Date/Time Status Location OR Service Patient Class Case Class Case Type Trauma Case? 08/24/2017 12:45 PM Posted [facility] GI 06 Gastroenterology Outpatient Elective No Panel 1 Procedure LRB Anes Op Region Wound Class Comments SMALL BOWEL ENTEROSCOPY N/A General Anus Surgeon Surgeon Role Service Panel Lane Ryan MD Primary Gastroenterology 1 documented in this encounter Social History Tobacco [...] Sign Reading Time Taken Comments Blood Pressure 131/72 08/24/2017 12:21 PM CDT Pulse 86 08/24/2017 1:00 PM CDT Temperature 36.4 ??C (97.5 ??F) 08/24/2017 1:00 PM CD T Respiratory Rate 16 08/24/2017 1:00 PM CDT Oxygen Saturation 100% 08/24/2017 1:00 PM CDT Inhaled Oxygen Concentration - [...] Laterality Date ??? HX COLECTOMY 2001 ??? IN COLONOSCOPY FLX DX W/COLLJ SPEC WHEN PFRMD 12/08/2009 COLONOSCOPY performed by LOUISE RIZO at [facility] GI LAB ??? IN COLONOSCOPY FLX DX W/COLLJ SPEC WHEN PFRMD 06/09/[address] Ryan MD at [facility] GI [facility] ??? IN DILATION RECTAL STRICTURE W ANEST 06/12/2012 RECTAL STRICTURE DILATATION performed by Lane Ryan MD at [facility] GI [facility] ??? IN ENDOSCOPY UPPER SMALL INTESTINE 06/12/2012 SMALL BOWEL ENTEROSCOPY performed by Lane Ryan MD at [facility] ??? IN ENDOSCOPY UPPER SMALL INTESTINE W/BIOPSY 02/28/2012 BOWEL SMALL BIOPSY ENDOSCOPIC performed by Lane Ryan MD at [facility] ??? IN ESOPHAGOGASTRODUODENOSCOPY TRANSORAL DIAGNOSTIC 02/28/[address] performed by Lane Ryan MD at [facility] LAB ??? IN NDSC EVAL INTSTINAL POUCH DX W/COLLJ SPEC SPX 02/16/2012 POUCHOSCOPY performed by Louise Rizo MD at [facility] GI [facility] ??? IN SIGMOIDOSCOPY FLX DX W/COLLJ SPEC BR/WA IF PFRMD 02/16/2012 SIGMOIDOSCOPY FLEXIBLE performed by Louise Rizo MD at [facility] No prescriptions prior to admission. [...] 08/24/2017 9:05 PM CDTAssociated Order(s): GI REPORT [place], [place] [address] Gastroenterology CSN: [id number] DATE OF SERVICE: ENDOSCOPY REPORT DATE OF [...] get Humira antibodies for further evaluation. JSF:MEDQ DID: [id number] Dictated by: Lane Ryan MD * Lane Ryan MD - 08/24/2017 1:20 PM CDTAssociated Order(s): GI REPORT [facility] Endoscopy Patient Name: Edgardo Elkins Procedure Date: 08/24/2017 Date of : 1970 Admit Type: Outpatient Attending MD: Lane Rayn MD Procedure: Images Only-Procedure Report in [facility] Providers: Lane Ryan MD Referring MD: Jasiel Freeman MD Submitted Lane Ryan MD Number of Addenda: [address]; [place] [address] documented in this encounter Plan of Treatment Upcoming Encounters Date Type Department Care Team (Late st Contact Info) Description 02/13/2025 10:30 AM CDT Office Visit [facility] IBD and Gastroenterology Center [place] [address] [place] [address] Kitty Dover, MIRTA [address] [place] [address] documented as of this encounter [...] Ryan MD - 08/24/2017 9:05 PM CDT [place], [place] [address] Gastroenterology CSN: [id number] DATE OF SERVICE: ENDOSCOPY REPORT DATE OF [...] get Humira antibodies for further evaluation. JSF:MEDQ DID:[id number] Dictated by: Lane Ryan MD Transcriptions Lane Ryan MD - 08/24/2017 1:20 PM CDT [facility] Endoscopy Patient Name: Edgardo Elkins Procedure Date: 08/24/2017 Date of : 1970 Admit Type: Outpatient Attending MD: Lane Ryan MD Procedure: Images Only-Procedure Report in [facility] Providers: Lane Ryan MD Referring MD: Jasiel Freeman MD Submitted Lane Ryna MD Number of Addenda: [phone] [facility]; [place] [address] Lane Ryan MD GI PROCEDURE ORDERAB LES Performing Organization Address City/[facility]/ZIP Co de Phone Number [facility] * ADALIMUMAB CONCENTRATION AND AB (08/24/2017 2:00 PM CDT) ADALIMUMAB LEVEL AND AB See Scanned Report 08/29/2017 10:[address] [facility] Blood Venipuncture / Unknown 08/24/2017 2:00 PM CDT 08/24/2017 2:[address] Ryan MD CHEMISTRY ORDERABLES Performing Organization Address City/[facility] Co de Phone Number [facility] [address] [place] [address] * PATHOLOGY (08/24/2017 1:05 PM CDT) CASE REPORT Surgical Pathology Report ? Case: [id number] ? Authorizing Provider: ??Lane Ryan MD ?Collected: ? 08/24/2017 01:05 PM ? Ordering Location: ? [facility] [place] ??Received: ?08/24/2017 02:43 PM ? Pathologist: ? Usha He MD ? Specimens: ?? A) - Small Intestine, small intestine bx ? B) - Small Intestine, anastimosis bx ? C) - Small Intestine, perianal pouch ? 08/25/2017 3:36 PM CDT [place] [facility] FINAL DIAGNOSIS Small intestine, not further specified, biopsy: - Active enteritis with ulceration. - No granulomas or dysplasia. Small intestine, anastomosis, biopsy: - Active enteritis. - Fragments of ulcer. - No granulomas or dysplasia. Small intestine, perianal pouch, biopsy: - Active enteritis with focal ulceration. - No granulomas or dysplasia. 08/25/2017 3:36 PM [facility] IMEN DESCRIPTION (A) Small intestine small bowel IBD; (B) small intestine anastomosis IBD; (C) small bowel perianal patch IBD. 08/25/2017 3:36 PM [facility] OPERATIVE PROCEDURE Small bowel enteroscopy. 08/25/2017 3:36 PM [facility] CLINICAL DIAGNOSIS Ulcerative colitis. ICD Code K51.9. 08/25/2017 3:36 PM [facility] GROSS DESCRIPTION Received are three containers labeled [...] in cassette C1. BBK/cgk 08/25/2017 3:36 PM [facility] MICROSCOPIC DESCRIPTION The slides labeled [id number] and Edgardo Elkins. The first small intestinal [...] Case Review Conference. 08/25/2017 3:36 PM CDT [facility] COMMENT Special stain and/or immunohistochemical results are interpreted with controls that demonstrate appropriate staining reactions. Note on use of immunocytochemistry reagents: This test was developed and its performance characteristic determined by [facility], Department of Laboratory Medicine. It has not [...] WF, WB and WH are performed by [address], [address]. All other case types are performed by [place] [id number] [facility], [address]. 08/25/2017 3:36 PM CDT [facility] Tissue (Small Intestine) 08/24/2017 1:05 PM CDT 08/24/2017 2:43 PM CDT Comment:IBD Tissue specimen (specimen) (Small Intestine) 08/24/2017 1:05 PM CDT 08/24/2017 2:43 PM CDT Comment:IBD Tissue specimen (specimen) (Small Intestine) 08/24/2017 1:05 PM CDT 08/24/2017 2:43 PM CDT Comment:IBD Lane Ryan MD PATHOLOGY/CYTOLOGY O RDERABLES [facility] CLIA# [id number] [address] [place] [address] [place] [id number] * CLOSTRIDIUM DIFFICILE DETECTION (08/24/2017 1:04 PM CDT) TOXIGENIC C DIFFICILE Not Detected Not Detected 08/24/2017 4:50 PM CDT [facility] Stool STOOL SPECIMEN / Unknown Collection / Unknown 08/24/2017 1:04 PM CDT 08/24/2017 2:30 PM CDT Narrative [facility] - 08/24/2017 4:50 PM CDT This assay is used to detect Toxigenic Clostridium difficile target(B gene) DNA sequences in unformed stool specimens. ??If toxigenic C. difficile is not detected, but clinical suspicion is high please consult ID for consultation and potential repeat testing. ??This test should not be used as a test of cure. Lane Ryan MD MICROBIOLOGY - [facility] AL ORDERABLES [facility]# [id number] [address] [place] [address] documented in this encounter Visit Diagnoses Diagnosis UC (ulcerative colitis) Ulcerative colitis, unspecified UC (ulcerative colitis) Ulcerative colitis, unspecified documented [...] CRNA) documented in this encounter Care Teams Glass Scullion Relationship Specialty Start Date End Date Jasiel Freeman MD [address] [place] [address] PCP - General Family Practice 08/15/17 documented as of this encounter
--- OUTSIDE RECORDS SUMMARY | 2024-10-24 05:33 | XMS_ITS | Encounter Summary ---
Author Organization [facility] Address [address] [place] [address] Care Team Providers Care Web Ui Developer Name Role Phone Martin Kelley MD Primary Care Provider [phone] Reason for Visit * Reason Onset Date Comments New Prescription Request 08/12/2014 Encounter Details Date Type Department Care Team (Late st Contact Info) Description 08/12/2014 Telephone [facility] GASTROENTEROLOGY [address] [facility] [address] [place] [address] Lane Ryan MD NO ADDRESS [...] * Telephone Encounter - Ada Tan - 08/12/2014 8:43 AM CDT I called [facility] spoke to Eleanor pharmacist to increase pt's Humira dose to once a week for three months after that we will need to resend a another script for mantinence dose. Pt has apt in Oct to review. documented in this encounter Plan of Treatment Upcoming Encounters Date Type Department Care Team (Late st Contact Info) Description 02/13/2025 10:30 AM CDT Office Visit [facility] IBD and Gastroenterology Center [place] [address] [place] [address] Kitty Dover, ANP [address] [place] [place] [address] documented as of this encounter Visit Diagnoses Not on filedocumented in this encounter Care Teams Web Ui Developer Relationship Specialty Start Date End Date Martin Kelley MD PCP - General Internal Medicine 02/16/12 08/14/17 documented as of this encounter
--- OUTSIDE RECORDS SUMMARY | 2024-10-24 05:33 | XMS_ITS | Encounter Summary ---
Author Organization [facility] Address [address] [place] [address] Care Team Providers Care Pricing Analyst Name Role Phone Martin Kelley MD Primary Care Provider [phone] Encounter Details Date Type Department Care Team (Late st Contact Info) Description 12/05/2014 Abstract [facility] GASTROENTEROLOGY [address] [facility] [address] [place] [address] Lane Ryan MD NO ADDRESS [...] 02/13/2025 10:30 AM CDT Office Visit [facility] IBD and Gastroenterology Center [place] [address] [place] [address] Kitty Dover ANP [address] [place] [address] documented as of this encounter Visit Diagnoses Not on filedocumented in this encounter Care Teams Pricing Analyst Relationship Specialty Start Date End Date Martin Kelley MD PCP - General Internal Medicine 02/16/12 08/14/17 documented as of this encounter
--- OUTSIDE RECORDS SUMMARY | 2024-10-24 05:33 | XMS_ITS | Encounter Summary ---
Author Organization [facility] Address [address] [place] [address] Care Team Providers Care Table Tender Sludge Name Role Phone Martin Kelley MD Primary Care Provider [phone] Reason for Visit * Reason Onset Date Comments Medication Problem 12/15/2014 Encounter Details Date Type Department Care Team (Late st Contact Info) Description 12/15/2014 Telephone [facility] GASTROENTEROLOGY [address] [facility] [address] [place] [address] Lane Ryan MD NO ADDRESS [...] Telephone Encounter - Lane Ryan MD - 12/16/2014 6:23 PM CST Ordered jeffrey meyers ITY SPECIALIST * Telephone Encounter - Kadie Nye - 12/15/2014 2:10 PM CST Patient calling because he got script for Humira syringes and he uses pens. Please escribe. ITY SPECIALIST documented in this encounter Plan of Treatment Upcoming Encounters Date Type Department Care Team (Late st Contact Info) Description 02/13/2025 10:30 AM CDT Office Visit [facility] IBD and Gastroenterology Center [place] [address] [facility] [address] [place] [address] Kitty Dover, [facility] [address] [facility] [address] [place] [address] documented as of this encounter Visit Diagnoses Diagnosis Ulcerative colitis, other complication- Primary documented in this encounter Care Teams Table Tender Sludge Relationship Specialty Start Date End Date Martin Kelley MD PCP - General Internal Medicine 02/16/12 08/14/17 documented as of this encounter
--- OUTSIDE RECORDS SUMMARY | 2024-10-24 05:34 | XMS_ITS | Encounter Summary ---
Author Organization [facility] Address [address] [place] [address] Care Team Providers Care Wound Care Nurse Name Role Phone Jasiel Freeman MD Primary Care Provider Encounter Details Date Type Department Care Team (Late st Contact Info) Description 02/29/2012 [facility] GASTROENTEROLOGY [address] [facility] [address] [place] [address] Laen Ryan MD NO ADDRESS ON FILE Ulcerative colitis (Primary Dx) Social History Tobacco Use Types Packs/Day Years Used Date Smoking Tobacco: Former Cigarettes 0.5 10 0 06/09/2001 - 06/09/2011 Smokeless Tobacco: Never Comments:off & on Alcohol Use Standard Drinks/Week Comments Yes 0 (1 standard drink = 0.6 oz pur e alcohol) occ Sex and Gender Information Value Date Recorded [...] [place] [address] [place] [address] Kitty Dover, ANP [address] [place] [address] documented as of this encounter Visit Diagnoses Diagnosis Ulcerative colitis- Primary Ulcerative colitis, unspecified documented in this encounter Additional Health Concerns Infection Onset Date Last Indicated Resolved Time R/O C. diff 08/11/2022 08/10/2022 08/11/2022 2:45 PM CDT R/O C. diff 12/11/2022 12/09/2022 12/11/2022 1:26 PM DIESEL PILE DRIVER OPERATOR R/O C. diff 10/17/2024 10/17/2024 10/17/2024 6:55 PM DIESEL PILE DRIVER OPERATOR documented as of this encounter Care Teams Wound Care Nurse Relationship Specialty Start Date End Date Jasiel Freeman MD [address] [place] [address] PCP - General Family Practice 08/15/17 documented as of this encounter
--- OUTSIDE RECORDS SUMMARY | 2024-10-24 05:34 | XMS_ITS | Encounter Summary ---
Author Organization [facility] Address [address] [place] [address] Care Team Providers Care General Farmworker Name Role Phone Martin Kelley MD Primary Care Provider [phone] Encounter Details Date Type Department Care Team (Late st Contact Info) Description 04/02/2012 Abstract [facility] GASTROENTEROLOGY [address] [address] [place] [address] Lane Ryan MD NO ADDRESS ON FILE Social History Tobacco Use Types Packs/Day Years Used Date Smoking Tobacco: Former Cigarettes 0.5 10 Comments:off & on Alcohol Use Standard Drinks/Week Comments No 0 (1 standard drink = 0.6 oz [...] CDT Office Visit [facility] IBD and Gastroenterology [facility] [place] [address] [place] [address] Kitty Dover ANP [address] [facility] [address] [place] [address] documented as of this encounter Visit Diagnoses Not on filedocumented in this encounter Care Teams General Farmworker Relationship Specialty Start Date End Date Martin Kelley MD PCP - General Internal Medicine 02/16/12 08/14/17 documented as of this encounter
--- OUTSIDE RECORDS SUMMARY | 2024-10-24 05:34 | XMS_ITS | Encounter Summary ---
Author Organization [facility] Address [address] [place] [address] Care Team Providers Care Expense Clerk Name Role Phone Martin Kelley MD Primary Care Provider [phone] Encounter Details Date Type Department Care Team (Latest Contact Info) Description 06/05/2012 12:54 PM CDT - 06/05/2012 11:59 PM CDT Hospital Encounter [facility] [address] [place] [address] Lane Ryan MD NO ADDRESS [...] Sign Reading Time Taken Comments Blood Pressure 117/69 06/05/2012 1:22 PM CDT Pulse 79 06/05/2012 1:22 PM CDT Temperature 36.4 ??C (97.5 ??F) 06/05/2012 1:22 PM CD T Respiratory Rate 20 06/05/2012 1:22 PM CDT Oxygen Saturation - - Inhaled Oxygen Concentration - - Weight 80.3 kg (177 lb) 06/05/2012 1:22 PM CDT Height 175.3 cm (5' 9 ) 06/05/2012 1:22 PM CDT Body Mass Index 26.14 06/05/2012 1:22 PM CDT documented in this encounter Medications at Time of Discharge Medication Sig Dispensed Refills Start Date End Date predniSONE (DELTASONE) 10 mg Oral tablet Qd 08/24/2017 IBUPROFEN IB ORAL Prn pain 06/27/2012 OTHER VSL # 3 LABEL: 2 BID 60 Each 3 04/11/2012 08/24/2017 documented as of this encounter Progress Notes * Mandy Walter RN - 06/05/2012 4:55 PM CDT NS flush completed. Pt darwin well. Discontinued IV access. IV site wnl. Applied guaze dressing to thesite. Amb discharge. * Mandy Walter RN - 06/05/2012 4:45 PM CDT Remicade infusion completed. NS flushing. Pt denies any c/o discomfort. * Mandy Walter RN - 06/05/2012 4:05 PM CDT Increased Remicade rate to the target rate of 250/hr. Pt darwin well. * Ebony Lomax RN - 06/05/2012 3:45 PM CDT Remicade infusion at 150cc/hr. Pt tolerating without problem. * Ebony Lomax RN - 06/05/2012 2:00 PM CDT Admit ambulatory to [facility] for Remicade. Pt states that he is starting to feel the Crohn's symptoms again and Dr. Ryan wanted him to come early for his treatment. Otherwise, no signs/symptoms of infection. Pt has had reaction in the past. Will premed as MD ordered, titrate slowly and observe. documented in this encounter Miscellaneous Notes * Care Plan - Mandy Walter RN - 06/05/2012 5:11 PM CDT Problem: Inflammatory Bowel Disease (Adult) Goal: Prevent/Manage Potential Problems Signs and symptoms of listed problems will be absent or manageable. Pt will tolerate Remicade without reaction and have relief of Crohn???s symptoms. Outcome: Progressing Pt darwin Remicade with out any adverse effects.. See progress notes. documented in this encounter Plan of Treatment Upcoming Encounters Date Type Department Care Team (Late st Contact Info) Description 02/13/2025 10:30 AM CDT Office Visit [facility] [place] [address] [facility] [place] [address] Kitty Dover, ANP [address] [facility] [address] [place] [address] documented as of this encounter Visit Diagnoses Not on filedocumented in this encounter Administered Medications Inactive Administered Medications - up to 3 most recent administrations Medication Order MAR Action Action Date Dose Rate Site acetaminophen (TYLENOL) tablet 650 mg 650 mg, Oral, ONE TIME ONLY, 1 dose, On Mon06/05/12 at 1330, Routine Given 06/05/2012 1:30 PM CDT 650 mg diphenhydrAMINE (BENADRYL) 50 mg in sodium chloride 0.9 % 50 mL IVPB 50 mg, IV, ONE TIME ONLY, 1 dose, On Mon06/05/12 at 1330, Routine Given 06/05/2012 1:32 PM CDT 50 mg 153 mL/hr inFLIXimab (REMICADE) 400 mg in sodium chloride 0.9 % 250 mL IVPB 400 mg, IV, ONE TIME ONLY, 1 dose, On Mon06/05/12 at 1400, Routine Given 06/05/2012 2:28 PM CDT 400 mg 125 mL/hr methylPREDNISolone sodium succinate (SOLU-MEDROL) 40 mg in sodium chloride 0.9 % 50 mL IVPB 40 mg, IV, ONE TIME ONLY, 1 dose, On Mon06/05/12 at 1345, Routine Given 06/05/2012 1:58 PM CDT 40 mg 153 mL/hr sodium chloride 0.9% bolus solution 250 mL 250 mL, IV, ONE TIME ONLY, 1 dose, On Mon06/05/12 at 1330, at 50 mL/hr, Administer over 5 Hours, Routine Given 06/05/2012 1:30 PM CDT 250 mL 50 mL/hr documented in this encounter Care Teams Expense Clerk Relationship Specialty Start Date End Date Martin Kelley MD PCP - General Internal Medicine 02/16/12 08/14/17 documented as of this encounter
--- OUTSIDE RECORDS SUMMARY | 2024-10-24 05:34 | XMS_ITS | Encounter Summary ---
Author Organization [facility] Address [address] [place] [address] Care Team Providers Care Cable Tool Driller Name Role Phone Martin Kelley MD Primary Care Provider [phone] Encounter Details Date Type Department Care Team (Late st Contact Info) Description 06/21/2012 Abstract [facility] [address] [facility] [address] [place] [address] Lane Ryan MD NO ADDRESS [...] – [facility] G[facility] [place] [address] [facility] [address] [place] [address] Kitty Dover ANP [address] [facility] [address] [place] [address] documented as of this encounter Visit Diagnoses Not on filedocumented in this encounter Care Teams Cable Tool Driller Relationship Specialty Start Date End Date Martin Kelley MD PCP - General Internal Medicine 02/16/12 08/14/17 documented as of this encounter
--- OUTSIDE RECORDS SUMMARY | 2024-10-24 05:34 | XMS_ITS | Encounter Summary ---
Author Organization [facility] Address [address] [place] [address] Care Team Providers Care Fourth Mate Name Role Phone Martin Kelley MD Primary Care Provider [phone] Encounter Details Date Type Department Care Team (Late st Contact Info) Description 08/16/2012 Abstract [facility] [address] [facility] [address] [place] [address] Lane Ryan MD NO ADDRESS [...] IBD and Gastroenterology [facility] [place] [address] [facility] [address] [place] [address] Kitty Dover ANP [address] [facility] [address] [place] [address] documented as of this encounter Visit Diagnoses Not on filedocumented in this encounter Care Teams Fourth Mate Relationship Specialty Start Date End Date Martin Kelley MD PCP - General Internal Medicine 02/16/12 08/14/17 documented as of this encounter
--- OUTSIDE RECORDS SUMMARY | 2024-10-24 05:34 | XMS_ITS | Encounter Summary ---
Author Organization [facility] Address [address] [place] [address] Care Team Providers Care Tire Center Supervisor Name Role Phone Martin Kelley MD Primary Care Provider [phone] Reason for Visit * Outpatient Services (Routine) - Closed Specialty Diagnoses / Procedures Referred By Contac t Referred To Contact Oncology Diagnoses REMICADE Procedures REMICADE/INFUSION Lane Ryan MD NO ADDRESS ON FILE Referral ID Status Reason Start Date Expiration Date Visits Re quested Visits Authorized [id number] Closed 04/09/2012 05/08/2012 1 1 Encounter Details Date Type Department Care Team (Latest Contact Info) Description 04/11/2012 11:00 AM CDT - 04/11/2012 11:59 PM CDT Hospital Encounter [facility] [address] [place] [address] [address] Ryan MD NO ADDRESS ON FILE [...] Sign Reading Time Taken Comments Blood Pressure 152/80 04/11/2012 1:15 PM CDT Pulse 86 04/11/2012 1:15 PM CDT Temperature 36.1 ??C (96.9 ??F) 04/11/2012 1:15 PM CD T Respiratory Rate 20 04/11/2012 1:15 PM CDT Oxygen Saturation - - Inhaled Oxygen Concentration - - Weight 80.3 kg (177 lb) 04/11/2012 1:15 PM CDT Height 175.3 cm (5' 9 ) 04/11/2012 1:15 PM CDT Body Mass Index 26.14 04/11/2012 1:15 PM CDT documented in this encounter Medications at Time of Discharge Medication Sig Dispensed Refills Start Date End Date predniSONE (DELTASONE) 5 mg Oral tabletIndications:Ulcerat lazarus colitis Take 1.5 Tabs by mouth daily. 100 Tab 1 04/11/2012 06/05/2012 OTHER VSL # 3 LABEL: 2 BID 60 Each 3 04/11/2012 08/24/2017 ciprofloxacin (CIPRO) 500 mg Oral tabletIndications:Ulcerat lazarus colitis Take 1 Tab by mouth daily. 30 Tab 2 03/15/2012 06/05/2012 pantoprazole (PROTONIX) 40 mg Oral TbECIndications:Ulcerativ e colitis Take 1 Tab by mouth daily. 30 Tab 0 03/15/2012 06/05/2012 HYDROcodone-acetaminophen (NORCO) 5-325 mg Oral tablet Take 1 Tab by mouth every 4 hours as needed for Pain. 25 Tab 0 03/03/2012 06/05/2012 diazepam (VALIUM) 5 mg Oral tablet Take 1 Tab by mouth every 6 hours as needed for Spasm. 12 Tab 0 03/03/2012 06/05/2012 hyoscyamine (LEVSIN) 0.[address] 1 Tab under tongue every 4 hours as needed for Spasm. 30 Tab 0 03/03/2012 06/05/2012 predniSONE (DELTASONE) 20 mg Oral tablet Take 1 Tab by mouth daily at bedtime. 30 Tab 0 03/03/2012 06/05/2012 pantoprazole (PROTONIX) 40 mg Oral TbEC Take 1 Tab by mouth daily before breakfast. 30 Tab 0 03/03/2012 06/05/2012 documented as of this encounter Progress Notes * BohNia cruz RN - 04/11/2012 5:50 PM CDT IV DCed. Pt voiced no further problems or complaints, and presently denies complaints. Left ambulatory. * Lelo Gaspar RN - 04/11/2012 3:44 PM CDT No c/o at present. Restarted Remicade at 20cc/hr. * Lelo Gaspar RN - 04/11/2012 3:32 PM CDT Solumedrol completed. Pt feeling better. No CP, eyes improved. Slightly nauseated. * Lelo Gaspar RN - 04/11/2012 3:12 PM CDT Benadryl infused. C/o pressure in chest. IV Solumedrol up. * Lelo Gaspar RN - 04/11/2012 2:55 PM CDT Late entry: VS at 1450: BP 130/65, pulse 112, temp 96.1 * Lelo Gaspar RN - 04/11/2012 1:46 PM CDT Remicade up and infusing per protocol. Started at 10cc/hr. Will titrate. 1415-No c/o. Resting quietly. 1450-c/o flushing, nausea, eyes red. Remicade off. Call placed to Dr. Ryan's cell phone and leftmessage. 1455-Call placed to exchange. 1500-Spoke to Dr. Ryan. OK for IV Benadryl and Solumedrol. Benadryl 50mg IVP given. * Lelo Gaspar RN - 04/11/2012 1:23 PM CDT PIV started. Labs drawn per PIV as ordered. Tylenol po given. 1528-Benadryl up and infusing. * Lelo Gaspar RN - 04/11/2012 12:45 PM CDT Admit to [facility] ambulatory for Remicade. Received first dose in hospital. Had second dose here and hadreaction. Pt refused premeds at prior visit. Agrees to take premeds today. Saw Dr. Ryan earlier today. Labs entered in [employer]. Pt has stool specimen at BS. Orders reviewed. OK for po Tylenol and IV Benadryl prior to Remicade per Dr. Ryan's office. documented in this encounter Miscellaneous Notes * Care Plan - Nia Bassett RN - 04/11/2012 5:53 PM CDT Problem: Inflammatory Bowel Disease (Adult) Goal: Prevent/Manage Potential Problems Signs and symptoms of listed problems will be absent or manageable. Pt. Will tolerate remicade infusions with little or no side effects, lessening the effects of his inflammatory bowel disease. Outcome: Progressing See Nurses' Notes documented in this encounter Plan of Treatment Upcoming Encounters Date Type Department Care Team (Late st Contact Info) Description 02/13/2025 10:30 AM CDT Office Visit [facility] IBD and Gastroenterology [facility] [place] [address] [place] [address] Kitty Dover, ANP [address] [place] [address] documented as of this encounter Procedures Procedure Name Priority Date/Time Associated Diagnosis Comments C. DIFFICILE DETECTION Routine 2 12:58 PM CDT Ulcerative colitis CBC WITH DIFFERENTIAL Routine 04/11/2012 12:58 PM CDT Ulcerative colitis C-REACTIVE PROTEIN Routine 04/11/2012 12 :58 PM CDT Ulcerative colitis COMPREHENSIVE METABOLIC PANEL Routine 04/11/2012 12:58 PM CDT Ulcerative colitis documented in this encounter Results * (ABNORMAL) COMPREHENSIVE METABOLIC PANEL (04/11/2012 12:58 PM CDT) SODIUM 138 135 - 145 mmol/L [facility] POTASSIUM 4.1 3.5 - 4.9 mmol/L [facility] Comment: Moderate hemolysis present. Can cause significant falsely elevated result. Clinical judgement necessary. Redraw if indicated. CHLORIDE 101 96 - 108 mmol/L [facility] CO2 20(L) 22 - 30 mmol/L [facility] CALCIUM 9.1 8.6 - 10.2 mg/dL [facility] BUN 12 6 - 20 mg/dL [facility] CREATININE 0.87 0.67 - 1.17 mg/dL [facility] GLUCOSE 138(H) 65 - 99 mg/dL [facility] TOTAL PROTEIN 7.4 6.3 - 8.6 g/dL [facility] ALBUMIN 3.9 3.4 - 4.8 g/dL [facility] BILIRUBIN TOTAL 0.3 0.2 - 1.0 mg/dL [facility] ALKALINE PHOSPHATASE 68 40 - 129 U/L [employer] [facility] AST 35 12 - 38 U/L [facility] Comment:Hemolyzed: Result ma y be falsely elevated. ALT 41 0 - 41 U/L [employer] [facility] GFR, >60 >=60 mL/min/1. 7 sq meter [facility] GFR >60 >=60 mL/min/1. 7 sq meter [facility] Comment: GFR is calculated using the IDMS-Traceable Modification of Diet in Renal Disease (MDRD) Study formula and is only valid for patients 18 years or older. Further interpretative information is available in the Laboratory Services Policy Manual on the [facility] Intranet at: [email or web address] Blood specimen (specimen) 04/11/2012 12:58 PM CDT 04/11/2012 1:[address] Ryan MD CHEMISTRY ORDERABLES Performing Organization Address City/[facility]/ZIP Co de Phone Number [facility] CLIA# [id number] [address] [place] [address] * CLOSTRIDIUM DIFFICILE TOXIN (04/11/2012 12:58 PM CDT) C DIFF TOXIN PCR RESULT Negative Negative [facility] C DIFF TOXIN PCR SOURCE Stool [facility] Stool specimen (specimen) 04/11/2012 12:58 PM CDT 04/11/2012 1:20 PM CDT Comment:STOOL Lane Ryan MD MICROBIOLOGY - GENER AL ORDERABLES [facility] CLIA# [id number] [address] [place] [place] [address] * (ABNORMAL) CBC WITH DIFFERENTIAL (04/11/2012 12:58 PM CDT) WBC 10.6(H) 4.0 - 9.8 K/uL [facility] RBC 4.77 4.50 - 5.40 M/uL [facility] HEMOGLOBIN 13.6 13.6 - 16.5 g/dL [facility] HEMATOCRIT 42.0 40.0 - 48.0 % [facility] MCV 88.1 82.0 - 99.0 fL [facility] MCH 28.5 27.2 - 32.6 pg [facility] MCHC 32.4 31.5 - 35.5 % [facility] PLATELETS 368(H) 140 - 350 K/uL [facility] MPV 9.3 9.3 - 12.4 fL [facility] RDW 13.2 11.5 - 14.5 % [facility] RDW-STDEV 42.6 37.1 - 48.7 fL [facility] NEUTROPHILS, SEG 92(H) 45 - 70 % [facility] LYMPHOCYTES 5(L) 16 - 45 % [facility] MONOCYTES 2(L) 3 - 13 % [facility] EOSINOPHILS 0 0 - 7 % [facility] BASOPHILS 0 0 - 2 % [facility] METAMYELOCYTE 1(H) <=0 % [facility] PLATELET EST. Consistent w/ count Normal [facility] NEUTROPHIL ABSOLUTE 9.75(H) 1.90 - 7.00 K/uL [facility] LYMPHOCYTE ABSOLUTE 0.53(L) 0.70 - 4.50 K/uL [facility] MONOCYTE ABSOLUTE 0.21 0.10 - 1.30 K/uL [facility] EOSINOPHIL ABSOLUTE 0.00 0.00 - 0.70 K/uL [facility] BASOPHILS ABSOLUTE 0.00 0.00 - 0.20 K/uL [facility] ANISOCYTOSIS Slight [facility] POIKILOCYTES Slight [facility] MICROCYTES Slight [facility] MACROCYTES Slight [facility] POLYCHROMASIA Slight [facility] HYPOCHROMIA Slight [facility] OVALOCYTES Slight [facility] ACANTHOCYTES Slight [facility] REVIEWED ON SMEAR WBC & Plt Reviewed [facility] Blood specimen (specimen) 04/11/2012 12:58 PM CDT 04/11/2012 1:[address] Ryan MD HEMATOLOGY ORDERABLE S Performing Organization Address [facility]/ZIP Co de Phone Number [facility] CLIA# [id number] [address] [place] [address] * C-REACTIVE PROTEIN (04/11/2012 12:58 PM CDT) CRP 0.2 0.0 - 0.8 mg/dL [facility] Blood specimen (specimen) 04/11/2012 12:58 PM CDT 04/11/2012 1:[address] Ryan MD CHEMISTRY ORDERABLES Performing Organization Address [facility] Co de Phone Number [id number] [address] [place] [address] documented in this encounter Visit Diagnoses Diagnosis Ulcerative colitis Ulcerative colitis, unspecified documented in this encounter Administered Medications Inactive Administered Medications - up to 3 most recent administrations Medication Order MAR Action Action Date Dose Rate Site acetaminophen (TYLENOL) tablet 650 mg 650 mg, Oral, ONE TIME ONLY, 1 dose, On Mon04/11/12 at 1315, Routine Given 04/11/2012 1:23 PM CDT 650 mg diphenhydrAMINE (BENADRYL) 25 mg in sodium chloride 0.9 % 50 mL IVPB 25 mg, IV, ONE TIME ONLY, 1 dose, On Mon04/11/12 at 1315, Routine Given 04/11/2012 1:28 PM CDT 25 mg 202 mL/hr diphenhydrAMINE (BENADRYL) injection 50 mg 50 mg, IV, ONE TIME ONLY, 1 dose, On Mon04/11/12 at 1515, Routine Given 04/11/2012 3:00 PM CDT 50 mg inFLIXimab (REMICADE) 400 mg in sodium chloride 0.9 % 250 mL IVPB 400 mg, IV, ONE TIME ONLY, 1 dose, On Mon04/11/12 at 1330, Routine Given 04/11/2012 1:46 PM CDT 400 mg 125 mL/hr methylPREDNISolone sodium succinate (SOLU-MEDROL) 40 mg in sodium chloride 0.9 % 50 mL IVPB 40 mg, IV, ONE TIME ONLY, 1 dose, On Mon04/11/12 at 1515, Routine Given 04/11/2012 3:12 PM CDT 40 mg 204 mL/hr sodium chloride 0.9% bolus solution 250 mL 250 mL, IV, ONE TIME ONLY, 1 dose, On Mon04/11/12 at 1315, at 50 mL/hr, Administer over 5 Hours, Routine Given 04/11/2012 1:28 PM CDT 250 mL 50 mL/hr documented in this encounter Care Teams [employer] Supervisor Relationship Specialty Start Date End Date Martin Kelley MD PCP - General Internal Medicine 02/16/12 08/14/17 documented as of this encounter
--- OUTSIDE RECORDS SUMMARY | 2024-10-24 05:34 | XMS_ITS | Encounter Summary ---
Author Organization [facility] Address [address] [place] [address] Care Team Providers Care Importer Exporter Name Role Phone Martin Kelley MD Primary Care Provider [phone] Reason for Visit * Reason Comments Abdominal Pain Pt states he had a c olonoscopy last . Started having fever and chills on Monday. States he went to [facility] on Monday and was treated for dehydration after developing diarrhea on Monday. Continues to have diarrhea, abdominal pain and nausea. States his PMD told him today that his XR report showed an obstruction. * Auth/Cert (Routine) - Closed Specialty Diagnoses / Procedures Referred By Lambert pizarro Referred To Contact Emergency Medicine [facility] [[email or web address]] Emergency Dept [address] [place] [address] Referral ID Status Reason Start Date Expiration Date Visits Re quested Visits Authorized [id number] Closed 1 1 Encounter Details Date Type Department Care Team (Late st Contact Info) Description 02/22/2012 6:54 PM CDT - 03/03/2012 10:00 AM CDT Hospital Encounter [facility] Medicine [address] [place] [address] Reji Noel MD NO ADDRESS ON FILE Marcela Carter MD [address] [facility] [address] [address] Richelle Gambino MD [address] [facility] [address] [address] Sierra Yin MD [address] [facility] [address] [place] [address] Gladys Calvo MD [address] [place] [address] [place] [address] Ulcerative colitis Discharge Disposition: Home or Self Care Social [...] Reading Time Taken Comments Blood Pressure 111/63 03/03/2012 7:52 AM CDT Pulse 108 03/03/2012 7:52 AM CDT Temperature 36.7 ??C (98.1 ??F) 03/03/2012 7:52 AM CD T Respiratory Rate 16 03/03/2012 7:52 AM CDT Oxygen Saturation 93% 03/03/2012 7:52 AM CDT Inhaled Oxygen Concentration - - Weight 75.3 kg (166 lb) 02/22/2012 11:41 PM CDT Height 175.3 cm (5' 9 ) 02/22/2012 4:23 PM CDT Body Mass Index 24.51 02/22/2012 4:23 PM CDT documented in this encounter Discharge Summaries * Rachell Reyna MD - 03/03/2012 7:35 AM CDT [facility] Adult Hospitalist Discharge Summary Mukul Huber 41 y.o. male 1970 CSN: [id number] Date of Admission: 02/22/2012 Date of Discharge: 03/03/2012 Discharging Physician: Gladys Nichole MD LOS: 10 days PCP: Martin Kelley MD Activity: activity as tolerated. Dispo: home Diet: bland Code Status at Discharge: Full Code Wound Care: Keep wound clean and dry Admitting Dx: Ulcerative colitis Abdominal pain Diarrhea Malnutrition JORGE Discharge Diagnoses: Abdominal pain IBD Malnutrition Discharge medications and new prescriptions: Current Discharge Medication List CONTINUE these medications which have NOT CHANGED Details HYDROcodone-acetaminophen (NORCO) 5-325 mg Oral tablet Take 1 Tab by mouth every 4 hours as needed. mesalamine (ASACOL) 400 mg Oral TbEC Take 400 mg by mouth 2 times daily. metroNIDAZOLE (FLAGYL) 500 mg Oral tablet Take 500 mg by mouth 3 times daily. Consultants: IP CONSULT TO GENERAL SURGERY IP CONSULT TO GI IP CONSULT TO NUTRITION SERVICES IP CONSULT TO NUTRITION SERVICES IP CONSULT TO WOUND CARE Brief Synopsis of Diagnostic Studies This Admission (Please see full report for details): ?? Colonoscopy ?? EGD ?? CXR ?? Xray c-spine Labs and Studies from this Hospitalization Needing Follow Up: ?? CBC, CRP in 7-10 days Discharge Lab Data (Please note date of lab as some may have preceeded admission) Lab Results Component Value Date WBC 16.5* 03/03/2012 HEMOGLOBIN 11.4* 03/03/2012 HEMATOCRIT 36.1* 03/03/2012 PLATELETS 574* 03/03/2012 SODIUM 133* 03/02/2012 CHLORIDE 97 03/02/2012 POTASSIUM 4.8 03/02/2012 CO2 28 03/02/2012 BUN 18 03/02/2012 CREATININE 0.60* 03/02/2012 GLUCOSE 283* 03/02/2012 AST 31 03/01/2012 ALT 45* 03/01/2012 CRP 1.9* 03/02/2012 Discharge Exam: BP 109/70 Pulse 83 Temp(Src) 98.3 ??F (36.8 ??C) (Oral) Resp 18 Ht 5' 9 (1.753 m) Wt 166lb (75.297 kg) BMI 24.51 kg/m2 SpO2 94% Last documented weight: Weight: 166 lb (75.297 kg) (02/22/12 2341) Physical Exam: General alert, cooperative, no distress, appears stated age Lungs clear to auscultation bilaterally Heart regular rate and rhythm, S1, S2 normal, no murmur, click, rub or gallop Abdomen soft, non-tender, without masses or organomegaly, nondistended, normal bowel sounds Extremities Normal, no edema Skin Skin color, texture, turgor normal. No rashes or lesions Hospital Course: 1. SIRS, possible sepsis: Met SIRS criteria (Leukocytosis, tachycardia, tachypnea, mild fever) on admission. Now resolved. Source likely intraabdominal- stool cx with heavy growth E.coli and severe inflammation on colonoscopy, received 9 days Of IV Levaquin and Flagyl, converted to PO cipro at discharge in addition to PO vanc, to be continued for 2 weeks. 2. Abdominal pain/diarrhea: Pouchitis vs. Infectious enteritis or both. Pt has hx of UC s/p total colectomy. Colonoscopy/endoscopy 02/27 per GI showed severe inflammation in entire pouch and 40 cm proximal in small bowel. Pathology reveals active duodenitis, iliitis and gastritis suggestive of Crohns. IBD markers consistent with UC. C.diff toxin negative in stool x2. Pt started on Remicade on 02/28. Initially placed on IV solumedrol 20 mg tid, converted to PO prednisone at d/c, taper per GI. Pt on asacol while admitted, discontinued per GI at time of d/c. Continue antibiotics for 2 weeks, Tolerating bland diet. F/u GI in 10 days. 3. Bronchitis: 5 day hx of cough, fever, chills, and positive SIRS criteria on admission, now improved. Possible bronchitis, repeat cxr on 02/23 negative. Pt received levaquin, Flovent BID, duonebs while inpatient. 4. Hyponatremia: improving, likely 2/2 dehydration from diarrhea. 5. Neck pain - likely muscle strain. Improved. X-ray unremarkable. 6. Malnutrition- mild to moderate. Pre-albumin low on admission. Supported with TPN while inpatientvia PICC, will d/c at discharge as pt tolerating PO diet. 7. Hyperglycemia - sec to TPN and IV steroids. On lantus and SSI, will discontinue at discharge as pt taken off TPN and steroid dose decreased. Discharge Condition: improving. Follow-up: You must follow up with Martin Kelley MD within 2 weeks and follow up with GI Dr. Ryan in 10 days. Please note that a follow up in no more than 10 days is recommended for an inpatient stay. More than 45 minutes were spent in this discharge activity. Signed: Rachell Reyna MD 03/03/2012, 7:35 AM * Gladys Nichole MD - 03/03/2012 7:35 AM CDT [facility] Hospitalist I have independently seen and examined I agree with the above history, exam and medical decision making as documented above by Dr. Reyna . General: Alert, cooperative, no distress, appears stated age. Head: Normocephalic, without obvious abnormality, atraumatic. Eyes: Conjunctivae/corneas clear. Neck: Supple, symmetrical, trachea midline . Back: Symmetric, no curvature. ROM normal. Lungs: Clear to auscultation bilaterally. Chest wall: No tenderness or deformity. Heart: Regular rate and rhythm, S1, S2 normal, no murmur. Abdomen: Soft, non-tender. Bowel sounds normal. No masses, Extremities: Extremities normal, atraumatic, no cyanosis or edema. Skin: Skin color, texture, turgor normal. No rashes or lesions. Greatly improved Follow GI recs regarding AB . He has appt with Dr Ryan in 10 days . Cont oral steroids Gladys Nichole [phone] documented in this encounter Discharge Instructions * Discharge Instructions* Germania Farmer RN - 03/03/2012 9:57 AM CDT Your discharging physician is Gladys Nichole MD and may be reached at [phone] for any questions or concerns until you see your doctor. FOLLOW-UP Follow up with Martin Kelley MD in 2 Week(s) and follow up with Dr. Ryan in 10 days, call to make appointment [phone] Prescriptions given? Yes Please continue to take Cipro and vancomycin for total 2 more weeks. Take 30 mg prednisone in AM and 20 mg prednisone in PM. Begin taking protonix 40 mg daily SIGNS AND SYMPTOMS TO REPORT Contact your health care provider if you experience any of the following symptoms: any numbness or tingling, increased dizziness or lightheadedness or increase in pain or any other concerning symptoms. Heart Patients: Weigh yourself everyday at the same time, with the same amount of clothing and after you have emptied your bladder. Keep a log of your daily weights and bring them with you to your physician appointments. Call your physician (*) if you have a weight gain of 3 pounds in one day (or 5pounds in 2+ days) or (*) if you have increased shortness of breath or (*) if you have swelling in your feet, belly or legs. <<<Call 911 or go to the nearest emergency room if you have increased shortness of breath or chest pain or discomfort that is not relieved by nitroglycerin. Smoking Exposure: [facility] encourages all patients to decrease risks associated with smoking and second hand smoke exposure. If you smoke you are advised to quit. Ask your health care provider for advice if you need assistance to stop smoking. Avoid second-hand smoke exposure and do not let people smoke in your home. Please call [phone], our pulmonary rehabilitation department, to learn more about options to reduce your risks. ACTIVITY Your activity level is: increase activity as tolerated and no smoking. DIET Your diet is: bland WOUND CARE For your wound/incision: keep wound clean and dry. documented in this encounter Medications at Time of Discharge Medication Sig Dispensed Refills Start Date End Date ciprofloxacin (CIPRO) 500 mg Oral tablet Take 1 Tab by mouth every 12 hours for 14 days. 28 Tab 0 03/03/2012 03/17/2012 vancomycin (VANCOCIN) 250 mg/5 mL Oral SolR Take 5 mL by mouth every 6 hours for 14 days. 280 mL 0 03/03/2012 03/17/2012 HYDROcodone-acetaminophen (NORCO) 5-325 mg Oral tablet Take [...] at bedtime. 30 Tab 0 03/03/2012 06/05/2012 predniSONE (DELTASONE) 10 mg Oral tablet Take 3 Tabs by mouth daily with breakfast. 30 Tab 0 03/03/2012 03/15/2012 pantoprazole (PROTONIX) 40 mg Oral TbEC Take 1 Tab by mouth daily before breakfast. 30 Tab 0 03/03/2012 06/05/2012 prochlorperazine maleate (COMPAZINE) 5 mg Oral tablet Take 1 Tab by mouth every 6 hours as needed for Nausea/Emesis. 20 Tab 0 03/03/2012 03/15/2012 documented as of this encounter Progress Notes * Faizan Medina - 03/07/2012 1:59 PM CDT * Dony Aguilera RN - 03/03/2012 9:58 AM CDT [facility]. I talked with patient and he declines home health at this time. He is eating now and no further needs. For questions or concerns [phone] * Lora Pérez MD - 03/02/2012 6:24 PM CDT Cross-Cover Note Paged by RN that pt's POC gluc is 127. Was on POC gluc q6hrs with HDSSI q6hrs while on TNP and highdose steroids. TPN d/c'ed today, now on bland diet and steroids reduced. No ho DM. Will change accuchecks to AC/HS and cover with LDSSI for now. Pt with scheduled Lantus 15U HS, jason RN check POC prior to lantus tonight, may need to reduce dose since not on TPN any longer. Will continue to monitor and adjust regimen as needed. Lora Pérez MD PGY-1, Internal Medicine Pager: [phone] * Trevor Toledo MD - 03/02/2012 4:53 PM CDT Admit Date: 02/22/2012 GASTROENTEROLOGY PROBLEM: enteritis Subjective: Almost back to baseline. No n/v or abdo pain. Complaining of some perianal burning with wiping. Feels like it is raw back there. Also feels like he has some burning with defecation. No problems with the remicade last night Tolerating soft diet and believes he could give a trial of solids. Objective: Heart: RRR Lungs: clear Abdomen: soft; active bs; nontender Rectal: Biopsy showing both gastric and illeal inflammation suggesting Crohn's however not diagnostic. Crp continues to decline to 1.9 today. Assessment/Plan: Enteritis - ? IBD. Biopsy not diagnostics but raises question of Crohn's. IBD markers consistent with UC. -D/c Asacol. Switch to oral prednisone 30 mg in the am and 20 mg pm. Continue vancomycin 250 mg q6 PO and cipro 500 mg BID for 2 weeks. Continue PPI once daily at d/c as well as a script for levsin. Instructed patient to get VSL # 3 probiotic at discharge. D/c picc line. No labs needed in am.Pending no acute issues overnight ok by GI to discharge in am. Follow up with Dr. Ryan in 10 days 2. Perianal pain - 2/2 excoriation. - continue Calmoseptine, encouraged using tucks and hot baths. Lab Results: Lab Results Component Value Date WBC 16.0* 03/02/2012 HEMOGLOBIN 10.5* 03/02/2012 HEMATOCRIT 32.9* 03/02/2012 PLATELETS 503* 03/02/2012 MCV 88.4 03/02/2012 Lab Results Component Value Date CRP 1.9* 03/02/2012 Lab Results Component Value Date SODIUM 133* 03/02/2012 POTASSIUM 4.8 03/02/2012 CHLORIDE 97 03/02/2012 CO2 28 03/02/2012 CALCIUM 8.5* 03/02/2012 BUN 18 03/02/2012 CREATININE 0.60* 03/02/2012 GLUCOSE 283* 03/02/2012 TOTAL PROTEIN 5.7* 03/01/2012 ALBUMIN 2.7* 03/01/2012 BILIRUBIN TOTAL 0.2 03/01/2012 ALKALINE PHOSPHATASE 181* 03/01/2012 AST 31 03/01/2012 ALT 45* 03/01/2012 Patient Vitals for the past 24 hrs: BP Temp Temp src Pulse Resp SpO2 03/02/12 1453 104/60 mmHg 97.4 ??F (36.3 ??C) Oral 103 18 94 % 03/02/12 0706 95/54 mmHg 97.9 ??F (36.6 ??C) Oral 84 18 97 % 03/01/12 2054 120/95 mmHg 98.1 ??F (36.7 ??C) Oral 107 20 95 % 03/01/12 1957 91/51 mmHg 98 ??F (36.7 ??C) Oral 103 16 95 % 03/01/12 1829 105/62 mmHg 97.8 ??F (36.6 ??C) Oral 95 - 94 % 03/01/12 1814 108/58 mmHg 97.9 ??F (36.6 ??C) Oral 94 - 94 % Intake/Output Summary (Last 24 hours) at 03/02/12 1653 Last data filed at 03/02/12 1500 Gross per 24 hour Intake 2771 ml Output 1125 ml Net 1646 ml 03/02/2012 * Elly Owens RN - 03/02/2012 4:39 PM CDT [facility] Referral received for potential home TPN. Met with pt to discuss home infusion and choice of agency. Pt has no preference in agency and stated will most likely not need TPN. If plan should change [facility] is a preferred provider for pt's insurance. Will arrange home TPN if needed at discharge. * Willian Sotelo MD - 03/02/2012 1:04 PM CDT [place], [place] [address] Initial Progress Note CSN: [id number] DATE OF SERVICE: I have been seeing the patient on daily basis. On the February,, his white blood count and C-reactiveprotein has fallen further and the patient states that he is feeling progressively better. As of the March 02, he is tolerating soft diet, having bowel movements for every 5 hours. The pathology reportis back and although not definitive, is consistent with possible Crohn inflammatory bowel disease. Dr. Ryan has given him the option of continuing on steroids and antibiotics or proceeding directly to Remicade and the patient is asked Remicade be started and arrangements are being made for this. I will continue to follow the patient peripherally. PLR:MEDQ DID: [id number] Dictated by: Willian Sotelo MD * Rachell Reyna MD - 03/02/2012 9:13 AM CDT Resident Progress Note Admit Date: 02/22/2012 Date of Note: 03/02/2012, 9:13 AM LOS: 9 days Subjective: Brief history: 41 yo M with PMH of ulcerative colitis s/p colectomy in 2001 who present with 2 weekhx of abdominal pain and diarrhea. His colorectal surgeon Dr. Sotelo performed colonoscopy which revealed pouchitis. Also performed dilatation of ileoanal anastomosis at that time. Started on asacoland flagyl, however pain and diarrhea worsened. Also reported subjective fevers, chills, and decreased PO intake. Pt also complains of cough and burning chest pain for 5 days. Last 24 hour events - Pt continues to feel better, tolerating soft bland diet, denies abdominal pain or nausea this AM. Having loose BM every 5 hours, states this is fairly baseline for him since colectomy. Denies blood in stool. No fever. Cough is much improved. Received first remicade infusion last evening, no issues. On TPN Objective: BP 95/54 Pulse 84 Temp(Src) 97.9 ??F (36.6 ??C) (Oral) Resp 18 Ht 5' 9 (1.753 m) Wt 166 lb (75.297 kg) BMI 24.51 kg/m2 SpO2 97% Temp (24hrs), Av.9 ??F (36.6 ??C), Min:97.6 ??F (36.4 ??C), Max:98.1 ??F (36.7 ??C) Exam: Gen alert, cooperative, no distress HEENT NC/AT, EOMI, no cervical LAD, PERRL Lungs CTAB Heart regular rate and rhythm, S1, S2 normal, no murmur, click, rub or gallop Abdomen soft, nontender, nondistended. Bowel sounds normal. 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50 - 5.40 (M/uL) HEMOGLOBIN 10.5 (*) 13.6 - 16.5 (g/dL) HEMATOCRIT 32.9 (*) 40.0 - 48.0 (%) MCV 88.4 82.0 - 99.0 (fL) MCH 28.2 27.2 - 32.6 (pg) MCHC 31.9 31.5 - 35.5 (%) PLATELETS 503 (*) 140 - 350 (K/uL) MPV 9.0 (*) 9.3 - 12.4 (fL) RDW 13.9 11.5 - 14.5 (%) RDW-STDEV 45.1 37.1 - 48.7 (fL) NEUTROPHILS, SEG 87 (*) 45 - 70 (%) LYMPHOCYTES 5 (*) 16 - 45 (%) MONOCYTES 5 3 - 13 (%) EOSINOPHILS 0 0 - 7 (%) BASOPHILS 0 0 - 2 (%) METAMYELOCYTE 2 (*) <=0 (%) MYELOCYTES 1 (*) <=0 (%) PLATELET EST. Consistent w/ count Normal NEUTROPHIL ABSOLUTE 13.92 (*) 1.90 - 7.00 (K/uL) LYMPHOCYTE ABSOLUTE 0.80 0.70 - 4.50 (K/uL) MONOCYTE ABSOLUTE 0.80 0.10 - 1.30 (K/uL) EOSINOPHIL ABSOLUTE 0.00 0.00 - 0.70 (K/uL) BASOPHILS ABSOLUTE 0.00 0.00 - 0.20 (K/uL) ANISOCYTOSIS Slight POIKILOCYTES Slight POC GLUCOSE Component Value Range POC GLUCOSE 160 (*) 65 - 99 (mg/dL) CLIA LICENSE [id number] Lab Results Component Value Date CRP 4.7* 03/01/2012 Assessment/Plan: 1. SIRS, possible sepsis: Met SIRS criteria (Leukocytosis, tachycardia, tachypnea, mild fever) on admission. Now resolved. Source likely intrabdominal infection - GNR in stool - heavy growth, received 9 days Of IV Levaquin and Flagyl, will convert to PO cipro. Normal lactic acid, MAP and UO and o2 sats are satisfactory. 2. Abdominal pain/diarrhea: Pouchitis vs. Infectious enteritis or both. Pt has hx of UC s/p total colectomy. Colonoscopy/endoscopy 02/27 per GI showed severe inflammation in entire pouch and 40 cm proximal in bowel. Pathology reveals active duodenitis, iliitis and gastritis. IBD markers requested - pending. Repeat C diff negative. Pt started on Remicade. Continue florastor, will switch to prednisone PO per GI.. Continue asacol at increased dose 800mg TID. Convert IV abx to PO cipro, Tolerating bland diet. Await further GI recs 3. Bronchitis: 5 day hx of cough, fever, chills, and positive SIRS criteria on admission, now improved. Possible bronchitis, repeat cxr on 02/23 negative. Continue Flovent BID, duonebs prn 4. Hyponatremia: stable, likely 2/2 dehydration from diarrhea. 5. ARF: resolved. Likely 2/2 dehydration from diarrhea and poor intake. 6. Neck pain - likely muscle strain. Improved. X-ray unremarkable. 7. Sweating: suspect due to side effect with narcotics both Percocet and Dilaudid. Changed to Norcoand better. 8. Malnutrition- mild to moderate. Pre-albumin low. Tolerating soft bland diet and supported with TPN. 9. Hyperglycemia - sec to TPN and steroids. Lantus at bedtime, continue accuchecks and high dose SSI DVT Prophylaxis - Enoxaparin Benito catheter:absent Lines: Peripheral IV Current Code Status -Full Code Plan discussed with patient and spouse, questions answered; patient agrees with current plan. Rachell Reyna MD * Gladys Nichole MD - 03/02/2012 9:13 AM CDT [facility] Hospitalist I have independently seen and examined I agree with the above history, exam and medical decision making as documented above by Dr. Reyna General: Alert, cooperative, no distress, appears stated age. Head: Normocephalic, without obvious abnormality, atraumatic. Eyes: Conjunctivae/corneas clear. Neck: Supple, symmetrical, trachea midline . Back: Symmetric, no curvature. ROM normal. Lungs: Clear to auscultation bilaterally. Chest wall: No tenderness or deformity. Heart: Regular rate and rhythm, S1, S2 normal, no murmur. Abdomen: Soft, non-tender. Bowel sounds normal. No masses, Extremities: Extremities normal, atraumatic, no cyanosis or edema. Skin: Skin color, texture, turgor normal. No rashes or lesions. Neurologic: CNII-XII intact. Moves all extremities freely Looks good Tolerates orrals Change meds to orals - steroids , AB No more TPN ry CRP nicely improved, WBC improved , and clinically good . Still on oral Vanc per GI- Cdiff negative x 2 - need to D/w Dr Ryan Plan to d/c at am per surgery Gladys Nichole [phone] D/w at bedside . * Trevor Toledo MD - 03/01/2012 4:08 PM CDT Admit Date: 02/22/2012 GASTROENTEROLOGY PROBLEM: enteritis Subjective: Feeling ok. BM about every 5 hours. Seems to be tolerating soft diet. Tachycardia seems to have come down. CRP noted coming down. Objective: Heart: RRR Lungs: clear Abdomen: soft; active bs; nontender Rectal: defer Biopsy showing both gastric and illeal inflammation suggesting Crohn's however not diagnostic. Assessment/Plan: Enteritis - ? IBD. Biopsy not diagnostics but raises question of Crohn's. IBD markers still pending. - Discussed options of starting Remicade at present vs following course with steroids as outpatient. Presented with these options the patient wishes to initiate Remicade now and pursue aggressive treatment. Would cont iv steroids,antibiotics, soft diet, probiotic. Will arrange for Remicade infusion.. Lab Results: Lab Results Component Value Date WBC 23.8* 03/01/2012 HEMOGLOBIN 11.5* 03/01/2012 HEMATOCRIT 34.6* 03/01/2012 PLATELETS 374* 03/01/2012 MCV 87.2 03/01/2012 Lab Results Component Value Date CRP 4.7* 03/01/2012 Lab Results Component Value Date SODIUM 132* 03/01/2012 POTASSIUM 4.5 03/01/2012 CHLORIDE 96 03/01/2012 CO2 29 03/01/2012 CALCIUM 8.5* 03/01/2012 BUN 18 03/01/2012 CREATININE 0.68 03/01/2012 GLUCOSE 258* 03/01/2012 TOTAL PROTEIN 5.7* 03/01/2012 ALBUMIN 2.7* 03/01/2012 BILIRUBIN TOTAL 0.2 03/01/2012 ALKALINE PHOSPHATASE 181* 03/01/2012 AST 31 03/01/2012 ALT 45* 03/01/2012 Patient Vitals for the past 24 hrs: BP Temp Temp src Pulse Resp SpO2 03/01/12 1415 96/59 mmHg 97.6 ??F (36.4 ??C) Oral 89 16 96 % 03/01/12 0658 95/57 mmHg 98 ??F (36.7 ??C) Oral 95 16 94 % 02/29/12 2217 103/60 mmHg 98.2 ??F (36.8 ??C) Oral 102 16 92 % Intake/Output Summary (Last 24 hours) at 03/01/12 1608 Last data filed at 03/01/12 1451 Gross per 24 hour Intake 2679 ml Output 1700 ml Net 979 ml Trevor Toledo MD 03/01/2012 * Rachell Reyna MD - 03/01/2012 1:18 PM CDT Resident Progress Note Admit Date: 02/22/2012 Date of Note: 03/01/2012, 1:18 PM LOS: 8 days Subjective: Brief history: 41 yo M with PMH of ulcerative colitis s/p colectomy in 2001 who present with 2 weekhx of abdominal pain and diarrhea. His colorectal surgeon Dr. Sotelo performed colonoscopy which revealed pouchitis. Also performed dilatation of ileoanal anastomosis at that time. Started on asacoland flagyl, however pain and diarrhea worsened. Also reported subjective fevers, chills, and decreased PO intake. Pt also complains of cough and burning chest pain for 5 days. Last 24 hour events - Pt continues to feel better, denies abdominal pain or nausea this AM. No bloody diarrhea. No fever.Cough is much improved. On TPN Objective: BP 95/57 Pulse 95 Temp(Src) 98 ??F (36.7 ??C) (Oral) Resp 16 Ht 5' 9 (1.753 m) Wt 166 lb(75.297 kg) BMI 24.51 kg/m2 SpO2 94% Temp (24hrs), Av.9 ??F (36.6 ??C), Min:97.6 ??F (36.4 ??C), Max:98.2 ??F (36.8 ??C) Exam: Gen alert, cooperative, no distress HEENT NC/AT, EOMI, no cervical LAD, PERRL Lungs Mild wheezing in left lung Heart regular rate and rhythm, S1, S2 normal, no murmur, click, rub or gallop Abdomen soft, nontender, nondistended. Bowel sounds normal. 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 intact Data Base: Results for orders placed during the hospital encounter of 02/22/12 (from the past 24 hour(s)) POC GLUCOSE Component Value Range POC GLUCOSE 240 (*) 65 - 99 (mg/dL) CLIA LICENSE [id number] POC GLUCOSE Component Value Range POC GLUCOSE 231 (*) 65 - 99 (mg/dL) CLIA LICENSE [id number] C-REACTIVE PROTEIN Component Value Range CRP 4.7 (*) 0.0 - 0.8 (mg/dL) COMPREHENSIVE METABOLIC PANEL Component Value Range SODIUM 132 (*) 135 - 145 (mmol/L) POTASSIUM 4.5 3.5 - 4.9 (mmol/L) CHLORIDE 96 96 - 108 (mmol/L) CO2 29 22 - 30 (mmol/L) CALCIUM 8.5 (*) 8.6 - 10.2 (mg/dL) BUN 18 6 - 20 (mg/dL) CREATININE 0.68 0.67 - 1.17 (mg/dL) GLUCOSE 258 (*) 65 - 99 (mg/dL) TOTAL PROTEIN 5.7 (*) 6.3 - 8.6 (g/dL) ALBUMIN 2.7 (*) 3.4 - 4.8 (g/dL) BILIRUBIN TOTAL 0.2 0.2 - 1.0 (mg/dL) ALKALINE PHOSPHATASE 181 (*) 40 - 129 (U/L) AST 31 12 - 38 (U/L) ALT 45 (*) 0 - 41 (U/L) GFR, >60 >=60 (mL/min/1.7 sq meter) GFR >60 >=60 (mL/min/1.7 sq meter) CBC WITH DIFFERENTIAL Component Value Range WBC 23.8 (*) 4.0 - 9.8 (K/uL) RBC 3.97 (*) 4.50 - 5.40 (M/uL) HEMOGLOBIN 11.5 (*) 13.6 - 16.5 (g/dL) HEMATOCRIT 34.6 (*) 40.0 - 48.0 (%) MCV 87.2 82.0 - 99.0 (fL) MCH 29.0 27.2 - 32.6 (pg) MCHC 33.2 31.5 - 35.5 (%) PLATELETS 374 (*) 140 - 350 (K/uL) MPV 9.1 (*) 9.3 - 12.4 (fL) RDW 13.6 11.5 - 14.5 (%) RDW-STDEV 43.7 37.1 - 48.7 (fL) NEUTROPHILS 93 (*) 45 - 70 (%) LYMPHOCYTES 4 (*) 16 - 45 (%) MONOCYTES 3 3 - 13 (%) EOSINOPHILS 0 0 - 7 (%) BASOPHILS 0 0 - 2 (%) NEUTROPHIL ABSOLUTE 22.12 (*) 1.90 - 7.00 (K/uL) LYMPHOCYTE ABSOLUTE 1.07 0.70 - 4.50 (K/uL) MONOCYTE ABSOLUTE 0.62 0.10 - 1.30 (K/uL) EOSINOPHIL ABSOLUTE 0.00 0.00 - 0.70 (K/uL) BASOPHILS ABSOLUTE 0.02 0.00 - 0.20 (K/uL) POC GLUCOSE Component Value Range POC GLUCOSE 229 (*) 65 - 99 (mg/dL) CLIA LICENSE [id number] POC GLUCOSE Component Value Range POC GLUCOSE 189 (*) 65 - 99 (mg/dL) CLIA LICENSE [id number] Lab Results Component Value Date CRP 4.7* 03/01/2012 Assessment/Plan: 1. Sepsis: Met SIRS criteria (Leukocytosis, tachycardia, tachypnea, mild fever) on admission. Now afebrile but still mildly tachycardic and with leukocytosis. Source likely intrabdominal infection - GNR in stool - heavy growth, on day 8 Of IV Levaquin and Flagyl, duration per GI? Normal lactic acid, MAP and UO and o2 sats are satisfactory. 2. Abdominal pain/diarrhea: Pouchitis vs. Infectious enteritis or both. Pt has hx of UC s/p total colectomy. Colonoscopy/endoscopy 02/27 per GI showed severe inflammation in entire pouch and 40 cm proximal in bowel. IBD markers requested - pending. Continue florastor and solumedrol, will switch to prednisone per GI, possibly tomorrow. Continue asacol at increased dose 800mg TID. Continue antibiotics, support with TPN. PPD done in anticipation of remicade, negative. Likely start remicade once pathresults back. Will advance diet to soft bland. Await further GI recs 3. Bronchitis: 5 day hx of cough, fever, chills, and positive SIRS criteria on admission, now improved. Possible bronchitis, repeat cxr on 02/23 negative. Continue Levaquin, Flovent BID, duonebs prn 4. Hyponatremia: hypovolemic, stable, likely 2/2 dehydration from diarrhea. Follow BMP in AM 5. ARF: resolved. Likely 2/2 dehydration from diarrhea and poor intake. 6. Neck pain - likely muscle strain. Improved. X-ray unremarkable. 7. Sweating: suspect due to side effect with narcotics both Percocet and Dilaudid. Changed to Norcoand better. 8. Malnutrition- mild to moderate. Pre-albumin is low. Continue TPN until adequate diet allowed by GI and tolerated. 9. Hyperglycemia - sec to TPN and steroids. Add lantus at bedtime, continue accuchecks and high dose SSI DVT Prophylaxis - Enoxaparin Benito catheter:absent Lines: Peripheral IV Current Code Status -Full Code Plan discussed with patient and spouse, questions answered; patient agrees with current plan. Rachell Reyna MD * Gladys Nichole MD - 03/01/2012 1:18 PM CDT [facility] Hospitalist I have independently seen and examined I agree with the above history, exam and medical decision making as documented above by Dr. Reyna General: Alert, cooperative, no distress, appears stated age. Head: Normocephalic, without obvious abnormality, atraumatic. Eyes: Conjunctivae/corneas clear. Neck: Supple, symmetrical, trachea midline . Back: Symmetric, no curvature. ROM normal. Lungs: Clear to auscultation bilaterally. Chest wall: No tenderness or deformity. Heart: Regular rate and rhythm, S1, S2 normal, no murmur. Abdomen: Soft, non-tender. Bowel sounds normal. No masses, Extremities: Extremities normal, atraumatic, no cyanosis or edema. Skin: Skin color, texture, turgor normal. No rashes or lesions. Neurologic: CNII-XII intact. Moves all extremities freely If OK with GI- advance diet , change to oral Prednisone , repeat Cdiff- ? D/C Vanco po ? Follow CRP. Gladys Nichole [id number] * Willian Sotelo MD - 02/29/2012 2:34 PM CDT [place], [place] [address] Initial Progress Note CSN: [id number] DATE OF SERVICE: 02/29/2012 I was present for the endoscopy of the distal ileal and pouch performed by Dr. Ryan yesterday and we have been in consultation since that time. The findings, which I was able to compare with my recollection of a prior endoscopic procedure on the 15 of February showed a dramatic worsening of the condition. The prior inflammation was a [id number] mucosal inflammation with no evidence of ulcers. The endoscopic procedure on the 27 of February, however, shows severely ulcerated bowel with a lot of mucosal denuding and only islands of mucosa forming pseudopolyp throughout the pouch and proximally up the terminal ileum to probably about 40 cm from the anal verge where the scope could no longer be passed. The ulcerative process is quite severe. Dr. Ryan and I subsequently had the opportunity to discuss various etiologies for this rapid downhill course and entertained different options for trying to reverse the process. We decided to add the oral vancomycin to his current antibiotic regimen and pending biopsies. We will probably start him on an anti- TNF regimen. From a constitutional standpoint, the patient does seem to be feeling better. He is tolerating a liquid diet and his bowel frequency seems to be diminishing. The white blood count was 21,000 on the 27 of February and is 26,000 today. There continues to be a left shift, but there are no longer multiplicity of bands and metamyelocytes. His C-reactive protein has dropped steadily and was 13.2 on the and 8.8 on the 27 of February. He continues on TPN and we think that he will probably have to go home on TPN. I have already told the patient that he will probably have to take an extended leave from work and to make preparations with that in mind. I will continue to follow him closely with Dr. Ryan. PLR:MEDQ DID: [id number] Dictated by: Willian Sotelo MD * Rachell Reyna MD - 02/29/2012 1:14 PM CDT Resident Progress Note Admit Date: 02/22/2012 Date of Note: 02/29/2012, 1:14 PM LOS: 7 days Subjective: Brief history: 41 yo M with PMH of ulcerative colitis s/p colectomy in 2001 who present with 2 weekhx of abdominal pain and diarrhea. His colorectal surgeon Dr. Sotelo performed colonoscopy which revealed pouchitis. Also performed dilatation of ileoanal anastomosis at that time. Started on asacoland flagyl, however pain and diarrhea worsened. Also reported subjective fevers, chills, and decreased PO intake. Pt also complains of cough and burning chest pain for 5 days. Last 24 hour events - Pt denies abdominal pain or nausea this AM. No bloody diarrhea. No fever. On TPN Objective: BP 103/62 Pulse 97 Temp(Src) 98.4 ??F (36.9 ??C) (Oral) Resp 16 Ht 5' 9 (1.753 m) Wt 166lb (75.297 kg) BMI 24.51 kg/m2 SpO2 97% Temp (24hrs), Av.1 ??F (36.7 ??C), Min:97.9 ??F (36.6 ??C), Max:98.4 ??F (36.9 ??C) Exam: Gen alert, cooperative, no distress HEENT NC/AT, EOMI, no cervical LAD, PERRL Lungs Mild wheezing in left lung Heart regular rate and rhythm, S1, S2 normal, no murmur, click, rub or gallop Abdomen soft, nontender, nondistended. Bowel sounds normal. 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 intact Data Base: Results for orders placed during the hospital encounter of 02/22/12 (from the past 24 hour(s)) POC GLUCOSE Component Value Range POC GLUCOSE 218 (*) 65 - 99 (mg/dL) CLIA LICENSE [id number] POC GLUCOSE Component Value Range POC GLUCOSE 205 (*) 65 - 99 (mg/dL) CLIA LICENSE [id number] CBC WITH DIFFERENTIAL Component Value Range WBC 26.1 (*) 4.0 - 9.8 (K/uL) RBC 4.09 (*) 4.50 - 5.40 (M/uL) HEMOGLOBIN 12.1 (*) 13.6 - 16.5 (g/dL) HEMATOCRIT 35.8 (*) 40.0 - 48.0 (%) MCV 87.5 82.0 - 99.0 (fL) MCH 29.6 27.2 - 32.6 (pg) MCHC 33.8 31.5 - 35.5 (%) PLATELETS 354 (*) 140 - 350 (K/uL) MPV 9.4 9.3 - 12.4 (fL) RDW 13.7 11.5 - 14.5 (%) RDW-STDEV 44.0 37.1 - 48.7 (fL) NEUTROPHILS 93 (*) 45 - 70 (%) LYMPHOCYTES 2 (*) 16 - 45 (%) MONOCYTES 6 3 - 13 (%) EOSINOPHILS 0 0 - 7 (%) BASOPHILS 0 0 - 2 (%) NEUTROPHIL ABSOLUTE 24.23 (*) 1.90 - 7.00 (K/uL) LYMPHOCYTE ABSOLUTE 0.40 (*) 0.70 - 4.50 (K/uL) MONOCYTE ABSOLUTE 1.45 (*) 0.10 - 1.30 (K/uL) EOSINOPHIL ABSOLUTE 0.00 0.00 - 0.70 (K/uL) BASOPHILS ABSOLUTE 0.03 0.00 - 0.20 (K/uL) BASIC METABOLIC PANEL Component Value Range SODIUM 130 (*) 135 - 145 (mmol/L) POTASSIUM 4.1 3.5 - 4.9 (mmol/L) CHLORIDE 94 (*) 96 - 108 (mmol/L) CO2 27 22 - 30 (mmol/L) CALCIUM 8.6 8.6 - 10.2 (mg/dL) BUN 17 6 - 20 (mg/dL) CREATININE 0.65 (*) 0.67 - 1.17 (mg/dL) GLUCOSE 177 (*) 65 - 99 (mg/dL) GFR, >60 >=60 (mL/min/1.7 sq meter) GFR >60 >=60 (mL/min/1.7 sq meter) POC GLUCOSE Component Value Range POC GLUCOSE 171 (*) 65 - 99 (mg/dL) CLIA LICENSE [id number] POC GLUCOSE Component Value Range POC GLUCOSE 225 (*) 65 - 99 (mg/dL) CLIA LICENSE [id number] Lab Results Component Value Date CRP 8.8* 02/28/2012 Assessment/Plan: 1. Sepsis: Met SIRS criteria (Leukocytosis, tachycardia, tachypnea, mild fever) on admission. Now afebrile but still mildly tachycardic and with leukocytosis. Source likely intrabdominal infection - GNR in stool - heavy growth, on IV Levaquin and Flagyl, will continue for total 10 days. Normal lactic acid, MAP and UO and o2 sats are satisfactory. 2. Abdominal pain/diarrhea: Pouchitis vs. Infectious enteritis or both. Pt has hx of UC s/p total colectomy. Colonoscopy/endoscopy 02/27 per GI showed severe inflammation in entire pouch and 40 cm proximal in bowel. IBD markers requested - pending. Continue florastor and solumedrol, continue asacol at increased dose 800mg TID. Continue antibiotics, support with TPN. PPD done in anticipation of remicade, negative. Likely start remicade once path results back. Await further GI recs 3. Bronchitis: 5 day hx of cough, fever, chills, and positive SIRS criteria on admission, now improved. Possible bronchitis, repeat cxr on 02/23 negative. Continue Levaquin, Flovent BID, duonebs prn 4. Hyponatremia: hypovolemic, stable, likely 2/2 dehydration from diarrhea. Follow BMP in AM 5. ARF: resolved. Likely 2/2 dehydration from diarrhea and poor intake. 6. Neck pain - likely muscle strain. Improved. X-ray unremarkable. 7. Sweating: suspect due to side effect with narcotics both Percocet and Dilaudid. Changed to Norcoand better. 8. Malnutrition- mild to moderate. Pre-albumin is low. Continue TPN until adequate diet allowed by GI and tolerated. 9. Hyperglycemia - sec to TPN and steroids. Will do accuchecks and continue high dose SSI DVT Prophylaxis - Enoxaparin Benito catheter:absent Lines: Peripheral IV Current Code Status -Full Code Plan discussed with patient and spouse, questions answered; patient agrees with current plan. Rachell Reyna MD * Sierra Yin MD - 02/29/2012 1:14 PM CDT [facility] Hospitalist Attending Note Patient seen and examined with the resident team. I have reviewed the note as dictated and agree with the assessment and plan, as dictated, with the exceptions, if any, noted below. Exam: General appearance alert, cooperative, no distress, appears stated age Lungs clear to auscultation bilaterally Heart regular rate and rhythm, S1, S2 normal, no murmur, click, rub or gallop Abdomen soft, mild tenderness lower abdomen. Bowel sounds normal. No masses, No organomegaly Extremities extremities normal, atraumatic, no cyanosis or edema Pulses 2+ and symmetric Neurologic Normal Data Review: Discussed and as indicated above. Assessment/Plan: Agree with Dr. Reyna a/p. Disposition: home possibly with TPN ones OK with GI. Sierra Yin MD [facility] Hospitalist Page [phone] * Katie Ryan MD - 02/29/2012 11:09 AM CDT Admit Date: 02/22/2012 GASTROENTEROLOGY PROBLEM: enteritis Subjective: Feeling better; BM less freq, 3 in past 12 hrs; abd pain improved, no narcotics; no nausea or vomiting Objective: Heart: RRR Lungs: clear Abdomen: soft; active bs; nontender Rectal: defer Assessment/Plan: Awaiting bx; try full liquids; cont iv steroids,antibiotics; anticipate remicade once bx back. Lab Results: Lab Results Component Value Date WBC 26.1* 02/29/2012 HEMOGLOBIN 12.1* 02/29/2012 HEMATOCRIT 35.8* 02/29/2012 PLATELETS 354* 02/29/2012 MCV 87.5 02/29/2012 Lab Results Component Value Date CRP 8.8* 02/28/2012 Lab Results Component Value Date SODIUM 130* 02/29/2012 POTASSIUM 4.1 02/29/2012 CHLORIDE 94* 02/29/2012 CO2 27 02/29/2012 CALCIUM 8.6 02/29/2012 BUN 17 02/29/2012 CREATININE 0.65* 02/29/2012 GLUCOSE 177* 02/29/2012 TOTAL PROTEIN 6.4 02/28/2012 ALBUMIN 3.0* 02/28/2012 BILIRUBIN TOTAL 0.3 02/28/2012 ALKALINE PHOSPHATASE 200* 02/28/2012 AST 28 02/28/2012 ALT 61* 02/28/2012 Patient Vitals for the past 24 hrs: BP Temp Temp src Pulse Resp SpO2 02/29/12 0640 103/62 mmHg 98.4 ??F (36.9 ??C) Oral 97 16 97 % 02/29/12 0011 99/62 mmHg 98 ??F (36.7 ??C) Oral 88 - 97 % 02/28/12 1419 99/64 mmHg 97.9 ??F (36.6 ??C) Oral 105 18 96 % Intake/Output Summary (Last 24 hours) at 02/29/12 1109 Last data filed at 02/29/12 0520 Gross per 24 hour Intake 2972 ml Output 1450 ml Net 1522 ml Katie Ryan MD 02/29/2012 * Rachell Reyna MD - 02/28/2012 3:12 PM CDT Resident Progress Note Admit Date: 02/22/2012 Date of Note: 02/28/2012, 3:12 PM LOS: 6 days Subjective: Brief history: 41 yo M with PMH of ulcerative colitis s/p colectomy in 2001 who present with 2 weekhx of abdominal pain and diarrhea. His colorectal surgeon Dr. Sotelo performed colonoscopy which revealed pouchitis. Also performed dilatation of ileoanal anastomosis at that time. Started on asacoland flagyl, however pain and diarrhea worsened. Also reported subjective fevers, chills, and decreased PO intake. Pt also complains of cough and burning chest pain for 5 days. Last 24 hour events - No bloody diarrhea. No fever. On TPN Colonoscopy and endoscopy today Objective: BP 99/64 Pulse 105 Temp(Src) 97.9 ??F (36.6 ??C) (Oral) Resp 18 Ht 5' 9 (1.753 m) Wt 166lb (75.297 kg) BMI 24.51 kg/m2 SpO2 96% Temp (24hrs), Av.6 ??F (36.4 ??C), Min:96.8 ??F (36??C), Max:98.2 ??F (36.8 ??C) Exam: Gen alert, cooperative, no distress, appears stated age HEENT NC/AT, EOMI, no cervical LAD, PERRL Lungs Mild wheezing in left lung Heart regular rate and rhythm, S1, S2 normal, no murmur, click, rub or gallop Abdomen soft, TTP in lower quadrants. Bowel sounds normal. 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 intact Data Base: Results for orders placed during the hospital encounter of 02/22/12 (from the past 24 hour(s)) POC GLUCOSE Component Value Range POC GLUCOSE 221 (*) 65 - 99 (mg/dL) CLIA LICENSE [id number] POC GLUCOSE Component Value Range POC GLUCOSE 394 (*) 65 - 99 (mg/dL) CLIA LICENSE [id number] CBC WITH MANUAL DIFFERENTIAL Component Value Range WBC 21.2 (*) 4.0 - 9.8 (K/uL) RBC 4.35 (*) 4.50 - 5.40 (M/uL) HEMOGLOBIN 12.9 (*) 13.6 - 16.5 (g/dL) HEMATOCRIT 37.8 (*) 40.0 - 48.0 (%) MCV 86.9 82.0 - 99.0 (fL) MCH 29.7 27.2 - 32.6 (pg) MCHC 34.1 31.5 - 35.5 (%) PLATELETS 347 140 - 350 (K/uL) MPV 9.6 9.3 - 12.4 (fL) RDW 13.6 11.5 - 14.5 (%) RDW-STDEV 43.2 37.1 - 48.7 (fL) NEUTROPHILS 87 (*) 45 - 70 (%) LYMPHOCYTES 3 (*) 16 - 45 (%) MONOCYTES 10 3 - 13 (%) EOSINOPHILS 0 0 - 7 (%) BASOPHILS 0 0 - 2 (%) NEUTROPHIL ABSOLUTE 18.56 (*) 1.90 - 7.00 (K/uL) LYMPHOCYTE ABSOLUTE 0.60 (*) 0.70 - 4.50 (K/uL) MONOCYTE ABSOLUTE 2.03 (*) 0.10 - 1.30 (K/uL) EOSINOPHIL ABSOLUTE 0.01 0.00 - 0.70 (K/uL) BASOPHILS ABSOLUTE 0.04 0.00 - 0.20 (K/uL) COMPREHENSIVE METABOLIC PANEL Component Value Range SODIUM 133 (*) 135 - 145 (mmol/L) POTASSIUM 4.4 3.5 - 4.9 (mmol/L) CHLORIDE 95 (*) 96 - 108 (mmol/L) CO2 28 22 - 30 (mmol/L) CALCIUM 8.8 8.6 - 10.2 (mg/dL) BUN 18 6 - 20 (mg/dL) CREATININE 0.70 0.67 - 1.17 (mg/dL) GLUCOSE 160 (*) 65 - 99 (mg/dL) TOTAL PROTEIN 6.4 6.3 - 8.6 (g/dL) ALBUMIN 3.0 (*) 3.4 - 4.8 (g/dL) BILIRUBIN TOTAL 0.3 0.2 - 1.0 (mg/dL) ALKALINE PHOSPHATASE 200 (*) 40 - 129 (U/L) AST 28 12 - 38 (U/L) ALT 61 (*) 0 - 41 (U/L) GFR, >60 >=60 (mL/min/1.7 sq meter) GFR >60 >=60 (mL/min/1.7 sq meter) C-REACTIVE PROTEIN Component Value Range CRP 8.8 (*) 0.0 - 0.8 (mg/dL) POC GLUCOSE Component Value Range POC GLUCOSE 189 (*) 65 - 99 (mg/dL) CLIA LICENSE [id number] POC GLUCOSE Component Value Range POC GLUCOSE 249 (*) 65 - 99 (mg/dL) CLIA LICENSE [id number] Lab Results Component Value Date CRP 8.8* 02/28/2012 Assessment/Plan: 1. Sepsis: Met SIRS criteria (Leukocytosis, tachycardia, tachypnea, mild fever) on admission. Now afebrile but still mildly tachycardic and with leukocytosis. Source likely intrabdominal infection - GNR in stool - heavy growth, on IV Levaquin and Flagyl, will continue. Normal lactic acid, MAP and UO and o2 sats are satisfactory. 2. Abdominal pain/diarrhea: Pouchitis vs. Infectious enteritis or both. Pt has hx of UC s/p total colectomy. Colonoscopy/endoscopy today per GI showing severe inflammation in entire pouch and 40 cm proximal in bowel. IBD markers requested - pending. Continue florastor and solumedrol, continue asacol at increased dose 800mg TID. Continue IV flagy/levaquin and support with TPN. PPD placed anticipating biological agents in future. Pain control - fair. Continue [place]. Possibility of using biological agents discussed with patient, await further recs from GI 3. Bronchitis: 5 day hx of cough, fever, chills, and positive SIRS criteria. Possible bronchitis, repeat cxr on 02/23 negative. Continue Levaquin, Flovent BID, duonebs prn 4. Hyponatremia: hypovolemic. Improving, likely 2/2 dehydration from diarrhea. Follow BMP in AM 5. ARF: resolved. Likely 2/2 dehydration from diarrhea and poor intake. 6. Neck pain - likely muscle strain. Improving. X-ray unremarkable. 7. Sweating: suspect due to side effect with narcotics both Percocet and Dilaudid. Changed to Norcoand better. 8. Malnutrition- mild to moderate. Pre-albumin is low. Continue TPN until adequate diet allowed by GI and tolerated. 9. Hyperglycemia - sec to TPN and steroids. Will do accucheks and increase to high dose SSI DVT Prophylaxis - Enoxaparin Benito catheter:absent Lines: Peripheral IV Current Code Status -Full Code Plan discussed with patient and spouse, questions answered; patient agrees with current plan. Rachell Reyna MD * Sierra Yin MD - 02/28/2012 3:12 PM CDT [facility] Hospitalist Attending Note Patient seen and examined with the resident team. I have reviewed the note as dictated and agree with the assessment and plan, as dictated, with the exceptions, if any, noted below. Exam: General appearance alert, cooperative, no distress, appears stated age Lungs clear to auscultation bilaterally Heart regular rate and rhythm, S1, S2 normal, no murmur, click, rub or gallop Abdomen soft, TTP lower abdomen Bowel sounds normal. No masses, No organomegaly Extremities extremities normal, atraumatic, no cyanosis or edema Pulses 2+ and symmetric Neurologic Normal Data Review: Discussed and as indicated above. Assessment/Plan: Agree with a/p as written by Dr. Reyna I D/W Dr. Ryan.: Remicade will be started, continue TPN. Observe clinically for next 2-3 days. Patient may need TPN at home Sierra Yin MD [facility] Hospitalist Page [phone] * Ammy Adams - 02/28/2012 2:17 PM CDT Home Health referral received from [facility]. Thank you Ammy Adams * Trevor Toledo MD - 02/27/2012 5:01 PM CDT Admit Date: 02/22/2012 GASTROENTEROLOGY PROBLEM: enteritis Subjective: Continues to feel better. Still having multiple bowel movements which are watery however believes he is much improved. Only very occasional pains now which are short lived. No nausea/ vomiting. Thinks he could tolerate a soft diet given the opportunity. Objective: Heart: RRR;105 pulse Lungs: clear Abdomen: soft, non tender. Assessment/Plan: 1. Abdominal pain/fever - ? IBD vs infectious enteritis vs pouchitis. Continued improvement with antibiotics and steroids favoring an inflammatory process. Stool culture with heavy growth ecoli sens to cipro. IBD antibodies pending. CRP trending down. - will plan to re scope with upper and lower ne to evaluate for IBD changes as well as biopsy. Lab Results: Lab Results Component Value Date WBC 20.5* 02/26/2012 HEMOGLOBIN 11.4* 02/26/2012 HEMATOCRIT 34.4* 02/26/2012 PLATELETS 319 02/26/2012 MCV 86.2 02/26/2012 Lab Results Component Value Date CRP 13.2* 02/27/2012 Lab Results Component Value Date SODIUM 131* 02/27/2012 POTASSIUM 3.9 02/27/2012 CHLORIDE 93* 02/27/2012 CO2 25 02/27/2012 CALCIUM 8.7 02/27/2012 BUN 15 02/27/2012 CREATININE 0.87 02/27/2012 GLUCOSE 203* 02/27/2012 TOTAL PROTEIN 6.9 02/27/2012 ALBUMIN 3.1* 02/27/2012 BILIRUBIN TOTAL 0.3 02/27/2012 ALKALINE PHOSPHATASE 214* 02/27/2012 AST 31 02/27/2012 ALT 55* 02/27/2012 Patient Vitals for the past 24 hrs: BP Temp Temp src Pulse Resp SpO2 02/27/12 1459 109/68 mmHg 97.5 ??F (36.4 ??C) Oral 96 18 96 % 02/27/12 0713 96/67 mmHg 96.6 ??F (35.9 ??C) Oral 94 - 96 % 02/26/12 2108 107/66 mmHg 97.5 ??F (36.4 ??C) Oral 105 20 97 % 02/26/122015 - - - - 16 - Intake/Output Summary (Last 24 hours) at 02/27/12 1701 Last data filed at 02/27/12 1500 Gross per 24 hour Intake 1780 ml Output 2450 ml Net -670 ml Trevor Toledo MD 02/27/2012 * Pito Andrade MD - 02/27/2012 10:48 AM CDT [facility] Med Progress Note Admit Date: 02/22/2012 Date of Note: 02/27/2012, 10:48 AM LOS: 5 days Subjective: Brief history: 41 yo M with PMH of ulcerative colitis s/p colectomy in 2001 who present with 2 weekhx of abdominal pain and diarrhea. His colorectal surgeon Dr. Sotelo performed colonoscopy which revealed pouchitis. Also performed dilatation of ileoanal anastomosis at that time. Started on asacoland flagyl, however pain and diarrhea worsened. Also reported subjective fevers, chills, and decreased PO intake. Pt also complains of cough and burning chest pain for 5 days. Last 24 hour events - No bloody diarrhea. No fever. Little perspiration with norco as well. Mild abdominal cramping during BM. No neck discomfort. Objective: BP 96/67 Pulse 94 Temp(Src) 96.6 ??F (35.9 ??C) (Oral) Resp 20 Ht 5' 9 (1.753 m) Wt 166 lb (75.297 kg) BMI 24.51 kg/m2 SpO2 96% Temp (24hrs), Av.2 ??F (36.2 ??C), Min:96.6 ??F (35.9 ??C), Max:97.5 ??F (36.4 ??C) Exam: Gen alert, cooperative, no distress, appears stated age HEENT NC/AT, EOMI, no cervical LAD, PERRL Lungs Mild wheezing in left lung Heart regular rate and rhythm, S1, S2 normal, no murmur, click, rub or gallop Abdomen soft, TTP in lower quadrants. Bowel sounds normal. 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 intact Data Base: Results for orders placed during the hospital encounter of 02/22/12 (from the past 24 hour(s)) C-REACTIVE PROTEIN Component Value Range CRP 13.2 (*) 0.0 - 0.8 (mg/dL) COMPREHENSIVE METABOLIC PANEL Component Value Range SODIUM 131 (*) 135 - 145 (mmol/L) POTASSIUM 3.9 3.5 - 4.9 (mmol/L) CHLORIDE 93 (*) 96 - 108 (mmol/L) CO2 25 22 - 30 (mmol/L) CALCIUM 8.7 8.6 - 10.2 (mg/dL) BUN 15 6 - 20 (mg/dL) CREATININE 0.87 0.67 - 1.17 (mg/dL) GLUCOSE 203 (*) 65 - 99 (mg/dL) TOTAL PROTEIN 6.9 6.3 - 8.6 (g/dL) ALBUMIN 3.1 (*) 3.4 - 4.8 (g/dL) BILIRUBIN TOTAL 0.3 0.2 - 1.0 (mg/dL) ALKALINE PHOSPHATASE 214 (*) 40 - 129 (U/L) AST 31 12 - 38 (U/L) ALT 55 (*) 0 - 41 (U/L) GFR, >60 >=60 (mL/min/1.7 sq meter) GFR >60 >=60 (mL/min/1.7 sq meter) MAGNESIUM LEVEL Component Value Range MAGNESIUM 2.5 1.5 - 2.5 (mg/dL) PHOSPHORUS Component Value Range PHOSPHORUS 4.5 2.5 - 4.5 (mg/dL) Lab Results Component Value Date CRP 13.2* 02/27/2012 Assessment/Plan: 1. Sepsis: Met SIRS criteria (Leukocytosis, tachycardia, tachypnea, mild fever) on admission. Source likely intrabdominal infection - GNR in stool - heavy growth on IV Levaquin and Flagyl, will continue. Normal lactic acid, MAP and UO and o2 sats are satisfactory. 2. Abdominal pain/diarrhea: Pouchitis vs. Infectious enteritis or both. Pt has hx of UC s/p total colectomy. IBD markers requested - pending. GI consulted, recommend start solumedrol and florastor. Continue asacol at increased dose 800mg TID. Continue IV flagy/levaquin and support with TPN. PPD placed anticipating biological agents in future. Pain control - fair. Continue Carnegie. Plan to do inpatient colonoscopy by GI on 02/27. Continue asacol , steroids and TPN. Possibility of using biological agents discussed with patient 3. Bronchitis: 5 day hx of cough, fever, chills, and positive SIRS criteria. Possible bronchitis, repeat cxr on 02/23 negative. Treat with Levaquin, Flovent BID, duonebs prn 4. Hyponatremia: hypovolemic. improving likely 2/2 dehydration from diarrhea. Na improving. Follow BMP in AM 5. ARF: resolved. Likely 2/2 dehydration from diarrhea and poor intake. 6. PCM - moderate. Pre alb is 14. TPN started on 5/5 per nutrition recs. 7. Neck pain - likely muscle strain. Improving. X-ray unremarkable. 8. Sweating: suspect due to side effect with narcotics both Percocet and Dilaudid. Changed to Norcoand better. 9. Malnutrition- mild to moderate. Pre-albumin is low. Start TPN until adequate diet allowed by GI and tolerated. 10. Hyperglycemia - sec to TPN and steroids. Will do accucheks and low dose SSI Disposition: home in 1-2 days depending upon colonoscopy results and ability to take PO diet. DVT Prophylaxis - Enoxaparin Benito catheter:absent Lines: Peripheral IV Current Code Status -Full Code Plan discussed with patient and spouse, questions answered; patient agrees with current plan. Pito Andrade MD * Sierra Yin MD - 02/27/2012 10:48 AM CDT [facility] Attending Note Patient seen and examined with the resident team. I have reviewed the note as dictated and agree with the assessment and plan, as dictated, with the exceptions, if any, noted below. Exam: General appearance alert, cooperative, no distress, appears stated age Lungs clear to auscultation bilaterally Heart regular rate and rhythm, S1, S2 normal, no murmur, click, rub or gallop Abdomen soft, mild tenderness lower abdomen. Bowel sounds normal. No masses, No organomegaly Extremities extremities normal, atraumatic, no cyanosis or edema Pulses 2+ and symmetric Neurologic Normal Data Review: Discussed and as indicated above. Assessment/Plan: Agree with A/P as written by Sierra Christian MD [facility] Page [phone] * Katie Ryan MD - 02/26/2012 2:31 PM CDT Admit Date: 02/22/2012 GASTROENTEROLOGY PROBLEM: enteritis Subjective: Somewhat improved; c/o anal pressure and sweats; no n/v; darwin full liquids; bm q 3 hrs Objective: Heart: RRR;110 pulse Lungs: clear Abdomen: soft Rectal: defer Assessment/Plan: crp still up 18; cont steroids and antibiotics; note culture sens to cipro; follow crp Lab Results: Lab Results Component Value Date WBC 20.5* 02/26/2012 HEMOGLOBIN 11.4* 02/26/2012 HEMATOCRIT 34.4* 02/26/2012 PLATELETS 319 02/26/2012 MCV 86.2 02/26/2012 Lab Results Component Value Date CRP 18.0* 02/26/2012 Lab Results Component Value Date SODIUM 130* 02/25/2012 POTASSIUM 4.4 02/25/2012 CHLORIDE 95* 02/25/2012 CO2 24 02/25/2012 CALCIUM 9.2 02/25/2012 BUN 8 02/25/2012 CREATININE 0.85 02/25/2012 GLUCOSE 118* 02/25/2012 TOTAL PROTEIN 6.7 02/25/2012 ALBUMIN 3.2* 02/25/2012 BILIRUBIN TOTAL 0.5 02/25/2012 ALKALINE PHOSPHATASE 78 02/25/2012 AST 14 02/25/2012 ALT 16 02/25/2012 Patient Vitals for the past 24 hrs: BP Temp Temp src Pulse Resp SpO2 02/26/12 1310 - - - 80 15 - 02/26/12 1306 - - - 80 16 - 02/26/12 1110 - - - - 18 93 % 02/26/12 0855 - - - 110 15 - 02/26/12 0851 - - - 110 15 - 02/25/12 2132 110/69 mmHg 98.8 ??F (37.1 ??C) Oral 111 16 - 02/25/12 2100 - - - - - 96 % 02/25/12 1520 110/69 mmHg 97.9 ??F (36.6 ??C) Oral 106 16 - Intake/Output Summary (Last 24 hours) at 02/26/12 1431 Last data filed at 02/26/12 0600 Gross per 24 hour Intake 1310 ml Output 850 ml Net 460 ml Katie Ryan MD 02/26/2012 * Sierra Yin MD - 02/26/2012 8:48 AM CDT [facility] Progress Note Admit Date: 02/22/2012 Date of Note: 02/26/2012, 8:48 AM LOS: 4 days Subjective: Brief history: 41 yo M with PMH of ulcerative colitis s/p colectomy in 2001 who present with 2 weekhx of abdominal pain and diarrhea. His colorectal surgeon Dr. Sotelo performed colonoscopy which revealed pouchitis. Also performed dilatation of ileoanal anastomosis at that time. Started on asacoland flagyl, however pain and diarrhea worsened. Also reported subjective fevers, chills, and decreased PO intake. Pt also complains of cough and burning chest pain for 5 days. Last 24 hour events - PICC line inserted 5/4 Stool - GNR Abdominal pain is better although had some cramping episode last night and thinks it is due to advancement to full liquid diet. Carnegie tolerated with very little perspiration. Valium works for neck pain. Objective: BP 110/69 Pulse 111 Temp(Src) 98.8 ??F (37.1 ??C) (Oral) Resp 16 Ht 5' 9 (1.753 m) Wt 166 lb (75.297 kg) BMI 24.51 kg/m2 SpO2 96% Temp (24hrs), Av.3 ??F (36.8 ??C), Min:97.9 ??F (36.6 ??C), Max:98.8 ??F (37.1 ??C) Exam: Gen alert, cooperative, no distress, appears stated age HEENT NC/AT, EOMI, no cervical LAD, PERRL Lungs Mild wheezing in left lung Heart regular rate and rhythm, S1, S2 normal, no murmur, click, rub or gallop Abdomen soft, TTP in lower quadrants. Bowel sounds normal. 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 No acute abnormality identified. 2. The C7-T1 junction is not visualized. Assessment/Plan: 1. Sepsis: Met SIRS criteria (Leukocytosis, tachycardia, tachypnea, mild fever) on admission. Source likely intrabdominal infection - GNR in stool - heavy growth on IV Levaquin and Flagyl, will continue. Normal lactic acid, MAP and UO and o2 sats are satisfactory. 2. Abdominal pain/diarrhea: Pouchitis vs. Infectious enteritis or both. Pt has hx of UC s/p total colectomy. IBD markers requested - pending. GI consulted, recommend start solumedrol and florastor. Continue asacol at increased dose 800mg TID. Continue IV flagy/levaquin and support with TPN PPD placed anticipating biological agents in future. Pain control - fair. Continue Carnegie. Plan to do inpatient colonoscopy by GI. Continue asacol , steroids and TPN. Possibility of using biological agents discussed with patient 3. Bronchitis: 5 day hx of cough, fever, chills, and positive SIRS criteria. Possible bronchitis, repeat cxr on 02/23 negative. Treat with Levaquin, Flovent BID, duonebs prn 4. Hyponatremia: hypovolemic. improving likely 2/2 dehydration from diarrhea. Na improving recheck BMP in AM 5. ARF: resolved. Cr elevated at 1.23 on admission likely 2/2 dehydration from diarrhea and poor intake 6. PCM - moderate. Pre alb is 14. TPN started on 02/24 per nutrition recs. 7. Neck pain - likely muscle strain. Improving. X-ray unremarkable. 8. Sweating: suspect due to side effect with narcotics both Percocet and Dilaudid. Changed to Norcoand better. 9. Malnutrition- mild to moderate. Pre-albumin is low. Start TPN until adequate diet allowed by GI and tolerated. Disposition: home some time next week depends upon clinical progress DVT Prophylaxis - Enoxaparin Benito catheter:absent Lines: Peripheral IV Current Code Status -Full Code Plan discussed with patient and spouse, questions answered; patient agrees with current plan. Sierra Yin MD * Katie Ryan MD - 02/25/2012 1:48 PM CDT Admit Date: 02/22/2012 GASTROENTEROLOGY PROBLEM: enteritis Subjective: Better; ,less diarrhea q 4h; no blood; no fever; abd pain improved Objective: Heart: RRR Lungs: clear Abdomen: soft Rectal: defer Assessment/Plan: Cont solumedrol; try clear liquids; recheck crp Lab Results: Lab Results Component Value Date WBC 18.5* 02/25/2012 HEMOGLOBIN 12.3* 02/25/2012 HEMATOCRIT 36.6* 02/25/2012 PLATELETS 316 02/25/2012 MCV 87.1 02/25/2012 Lab Results Component Value Date CRP 16.3* 02/24/2012 Lab Results Component Value Date SODIUM 130* 02/25/2012 POTASSIUM 4.4 02/25/2012 CHLORIDE 95* 02/25/2012 CO2 24 02/25/2012 CALCIUM 9.2 02/25/2012 BUN 8 02/25/2012 CREATININE 0.85 02/25/2012 GLUCOSE 118* 02/25/2012 TOTAL PROTEIN 6.7 02/25/2012 ALBUMIN 3.2* 02/25/2012 BILIRUBIN TOTAL 0.5 02/25/2012 ALKALINE PHOSPHATASE 78 02/25/2012 AST 14 02/25/2012 ALT 16 02/25/2012 Patient Vitals for the past 24 hrs: BP Temp Temp src Pulse Resp SpO2 02/25/12 0900 109/71 mmHg 98.1 ??F (36.7 ??C) Oral 111 18 96 % 02/24/12 1545 114/73 mmHg 98.3 ??F (36.8 ??C) Oral 96 18 96 % Intake/Output Summary (Last 24 hours) at 02/25/12 1348 Last data filed at 02/25/12 1219 Gross per 24 hour Intake 3504.75 ml Output 1225 ml Net 2279.75 ml Katie Ryan MD 02/25/2012 * Pito Andrade MD - 02/25/2012 7:48 AM CDT [facility] Med Progress Note Admit Date: 02/22/2012 Date of Note: 02/25/2012, 7:48 AM LOS: 3 days Subjective: Brief history: 41 yo M with PMH of ulcerative colitis s/p colectomy in 2001 who present with 2 weekhx of abdominal pain and diarrhea. His colorectal surgeon Dr. Sotelo performed colonoscopy which revealed pouchitis. Also performed dilatation of ileoanal anastomosis at that time. Started on asacoland flagyl, however pain and diarrhea worsened. Also reported subjective fevers, chills, and decreased PO intake. Pt also complains of cough and burning chest pain for 5 days. Last 24 hour events - PICC line inserted 5/ Stool - GNR Still having loose BM - some bloody. Diaphoretic after dilaudid and percocet. Abdominal pain is better.. Says flexeril not working for neck pain. Wants dilaudid for neck pain. No fall or trauma to neck,. May have leaned over something and strained his neck. No numbness or radiating pain. Objective: BP 114/73 Pulse 96 Temp(Src) 98.3 ??F (36.8 ??C) (Oral) Resp 18 Ht 5' 9 (1.753 m) Wt 166lb (75.297 kg) BMI 24.51 kg/m2 SpO2 96% Temp (24hrs), Av.3 ??F (36.8 ??C), Min:96.8 ??F (36??C), Max:99.8 ??F (37.7 ??C) Exam: Gen alert, cooperative, no distress, appears stated age HEENT NC/AT, EOMI, no cervical LAD, PERRL Lungs Mild wheezing in left lung Heart regular rate and rhythm, S1, S2 normal, no murmur, click, rub or gallop Abdomen soft, TTP in lower quadrants. Bowel sounds normal. No masses, No organomegaly, no rebound or guarding Extremities extremities normal, atraumatic, no cyanosis or edema Pulses 2+ and symmetric Musculoskeletal Neuro Cervical spine movements - full ROM with mild pain during lateral flexion, no masses or spinetenderness AAOx3, no focal motor or sensory deficits, supervisor housecleaner 2-12 grossly intact Data Base: Results for orders placed during the hospital encounter of 02/22/12 (from the past 24 hour(s)) CBC WITH DIFFERENTIAL Component Value Range WBC 18.5 (*) 4.0 - 9.8 (K/uL) RBC 4.20 (*) 4.50 - 5.40 (M/uL) HEMOGLOBIN 12.3 (*) 13.6 - 16.5 (g/dL) HEMATOCRIT 36.6 (*) 40.0 - 48.0 (%) MCV 87.1 82.0 - 99.0 (fL) MCH 29.3 27.2 - 32.6 (pg) MCHC 33.6 31.5 - 35.5 (%) PLATELETS 316 140 - 350 (K/uL) MPV 9.5 9.3 - 12.4 (fL) RDW 13.5 11.5 - 14.5 (%) RDW-STDEV 43.1 37.1 - 48.7 (fL) NEUTROPHILS 87 (*) 45 - 70 (%) LYMPHOCYTES 2 (*) 16 - 45 (%) MONOCYTES 10 3 - 13 (%) EOSINOPHILS 0 0 - 7 (%) BASOPHILS 0 0 - 2 (%) NEUTROPHIL ABSOLUTE 16.08 (*) 1.90 - 7.00 (K/uL) LYMPHOCYTE ABSOLUTE 0.47 (*) 0.70 - 4.50 (K/uL) MONOCYTE ABSOLUTE 1.88 (*) 0.10 - 1.30 (K/uL) EOSINOPHIL ABSOLUTE 0.00 0.00 - 0.70 (K/uL) BASOPHILS ABSOLUTE 0.03 0.00 - 0.20 (K/uL) COMPREHENSIVE METABOLIC PANEL Component Value Range SODIUM 130 (*) 135 - 145 (mmol/L) POTASSIUM 4.4 3.5 - 4.9 (mmol/L) CHLORIDE 95 (*) 96 - 108 (mmol/L) CO2 24 22 - 30 (mmol/L) CALCIUM 9.2 8.6 - 10.2 (mg/dL) BUN 8 6 - 20 (mg/dL) CREATININE 0.85 0.67 - 1.17 (mg/dL) GLUCOSE 118 (*) 65 - 99 (mg/dL) TOTAL PROTEIN 6.7 6.3 - 8.6 (g/dL) ALBUMIN 3.2 (*) 3.4 - 4.8 (g/dL) BILIRUBIN TOTAL 0.5 0.2 - 1.0 (mg/dL) ALKALINE PHOSPHATASE 78 40 - 129 (U/L) AST 14 12 - 38 (U/L) ALT 16 0 - 41 (U/L) GFR, >60 >=60 (mL/min/1.7 sq meter) GFR >60 >=60 (mL/min/1.7 sq meter) Lab Results Component Value Date CRP 16.3* 02/24/2012 Wbc - 18.5 ( steroid effect) Sodium - 130 ( improving) Pre albumin - 14 Assessment/Plan: 1. Sepsis: Met SIRS criteria (Leukocytosis, tachycardia, tachypnea, mild fever) on admission. Source likely intrabdominal infection - GNR in stool - heavy growth on IV Levaquin and Flagyl, will continue. Normal lactic acid, MAP and UO and o2 sats are satisfactory. 2. Abdominal pain/diarrhea: Pouchitis vs. Infectious enteritis or both. Pt has hx of UC s/p total colectomy. IBD markers requested - pending. GI consulted, recommend start solumedrol and florastor. Continue asacol at increased dose 800mg TID. Continue IV flagy/levaquin and support with TPN PPD placed anticipating biological agents in future. Pain control - fair. Will d/c dilaudid ( due to hyperhydrosis) and replace percocet with norco. Plan to do inpatient colonoscopy by GI. Continue asacol , steroids and TPN. Possibility of using biological agents discussed with patient 3. Bronchitis: 5 day hx of cough, fever, chills, and positive SIRS criteria. Possible bronchitis, repeat cxr on 02/23 negative. Treat with Levaquin, Flovent BID, duonebs prn 4. Hyponatremia: hypovolemic. improving likely 2/2 dehydration from diarrhea. Na improving recheck BMP in AM 5. ARF: resolved. Cr elevated at 1.23 on admission likely 2/2 dehydration from diarrhea and poor intake 6. PCM - moderate. Pre alb is 14. TPN started on 02/24 per nutrition recs. 7. Neck pain - likely muscle strain. Will get cervical spine XR to r/o spondylotic changes, DVT Prophylaxis - Enoxaparin Benito catheter:absent Lines: Peripheral IV Current Code Status -Full Code Plan discussed with patient and spouse, questions answered; patient agrees with current plan. Discussed with Dr. Humphrey Andrade MD * Sierra Yin MD - 02/25/2012 7:48 AM CDT [facility] Hospital[facility] Attending Note Patient seen and examined with the resident team. I have reviewed the note as dictated and agree with the assessment and plan, as dictated, with the exceptions, if any, noted below. Exam:C/o sweating with Percocet and also with dilaudid but for shorter periods. Stil has neck pain but feels that it is improving. Abdominal pain is much better. General appearance alert, cooperative, no distress, appears stated age Lungs clear to auscultation bilaterally Heart regular rate and rhythm, S1, S2 normal, no murmur, click, rub or gallop Abdomen soft, mildly TTP in lower quadrants.. Bowel sounds normal. No masses, No organomegaly Extremities extremities normal, atraumatic, no cyanosis or edema Pulses 2+ and symmetric Neurologic Normal Data Review: Discussed and as indicated above. Assessment/Plan: Agree with A/P as written by . In addition 1. Sweating: suspect due to side effect with narcotics both Percocet and Dilaudid. Will change to Carnegie and observe. 2. Malnutrition- mild to moderate. Pre-albumin is low. Start TPN until adequate diet allowed by GI and tolerated. 3. Disposition: home some time next week depends upon clinical progress. Sierra Yin MD [facility] Page [phone] * Magy Short RN - 02/24/2012 3:08 PM CDT Procedure, risks & benefits explained to patient, consent signed. Assessed for PICC, hand hygeine completed proir to procedure, site prepped with chlorhexidine, draped utilizing maximal barrier precautions. PICC placed using lidocaine and utilizing US and MST. Good blood return noted, flushes easily. Occlusive chlorahexidine sterile dressing applied. Tolerated procedure well. PICC placed by Aneta Junior RN * Willian Sotelo MD - 02/24/2012 3:04 PM CDT [place], [place] [address] Initial Progress Note CSN: [id number] DATE OF SERVICE: 02/24/2012 Vital signs are stable and T-max in the last 24 hours is 99.8. His white blood count is 10,600 with84 neutrophils, but the bandemia appears to have cleared somewhat. His C-reactive protein has fallen from 21.7 to 16.3. The patient states that he is feeling considerably better. For the initial 24 hours of his admission, he was using quite a lot of narcotic pain medicine, but states that he is no longer requiring it since early this morning. He remains anorectic. He states that he is no longer having the liquid bloody diarrhea that he had at the time of his admission and that his stool is starting to look more normal to him. I have discussed the situation with Dr. Ryan on several occasions. Dr. Ryan would like to start him on steroids, at least short term, to see if we might jumpstart a remission. We also discussedstarting hyperalimentation as the patient has had no meaningful nutrition in a week and a PICC linewill have to be placed. I will be away for the next several days, but if any surgical intervention is necessary, please contact Dr. Posadas who will be covering for me. PLR:MEDQ DID: [id number] Dictated by: Willian Sotelo MD * Rachell Reyna MD - 02/24/2012 8:54 AM CDT [facility] Progress Note Admit Date: 02/22/2012 Date of Note: 02/24/2012, 8:54 AM LOS: 2 days Subjective: Brief history: 41 yo M with PMH of ulcerative colitis s/p colectomy in 2001 who present with 2 weekhx of abdominal pain and diarrhea. His colorectal surgeon Dr. Sotelo performed colonoscopy which revealed pouchitis. Also performed dilatation of ileoanal anastomosis at that time. Started on asacoland flagyl, however pain and diarrhea worsened. Also reported subjective fevers, chills, and decreased PO intake. Pt also complains of cough and burning chest pain for 5 days. Overnight: Pt reports abdominal pain slightly improved. 1 episode vomiting last night after eating dinner, reports stomach contents. Pt with low grade fever this AM 99.8 Objective: BP 121/79 Pulse 112 Temp(Src) 99.8 ??F (37.7 ??C) (Oral) Resp 16 Ht 5' 9 (1.753 m) Wt 166 lb (75.297 kg) BMI 24.51 kg/m2 SpO2 94% Temp (24hrs), Av.5 ??F (36.9 ??C), Min:97.5 ??F (36.4 ??C), Max:99.8 ??F (37.7 ??C) Exam: Gen alert, cooperative, no distress, appears stated age HEENT NC/AT, EOMI, no cervical LAD, PERRL Lungs Mild wheezing in left lung Heart regular rate and rhythm, S1, S2 normal, no murmur, click, rub or gallop Abdomen soft, TTP in lower quadrants. Bowel sounds normal. 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 Data Base: Results for orders placed during the hospital encounter of 02/22/12 (from the past 24 hour(s)) CBC WITH DIFFERENTIAL Component Value Range WBC 10.6 (*) 4.0 - 9.8 (K/uL) RBC 4.60 4.50 - 5.40 (M/uL) HEMOGLOBIN 13.2 (*) 13.6 - 16.5 (g/dL) HEMATOCRIT 40.0 40.0 - 48.0 (%) MCV 87.0 82.0 - 99.0 (fL) MCH 28.7 27.2 - 32.6 (pg) MCHC 33.0 31.5 - 35.5 (%) PLATELETS 370 (*) 140 - 350 (K/uL) MPV 9.8 9.3 - 12.4 (fL) RDW 13.3 11.5 - 14.5 (%) RDW-STDEV 42.5 37.1 - 48.7 (fL) NEUTROPHILS 84 (*) 45 - 70 (%) LYMPHOCYTES 4 (*) 16 - 45 (%) MONOCYTES 11 3 - 13 (%) EOSINOPHILS 0 0 - 7 (%) BASOPHILS 0 0 - 2 (%) NEUTROPHIL ABSOLUTE 8.90 (*) 1.90 - 7.00 (K/uL) LYMPHOCYTE ABSOLUTE 0.48 (*) 0.70 - 4.50 (K/uL) MONOCYTE ABSOLUTE 1.17 0.10 - 1.30 (K/uL) EOSINOPHIL ABSOLUTE 0.05 0.00 - 0.70 (K/uL) BASOPHILS ABSOLUTE 0.02 0.00 - 0.20 (K/uL) BASIC METABOLIC PANEL Component Value Range SODIUM 128 (*) 135 - 145 (mmol/L) POTASSIUM 4.8 3.5 - 4.9 (mmol/L) CHLORIDE 96 96 - 108 (mmol/L) CO2 26 22 - 30 (mmol/L) CALCIUM 8.6 8.6 - 10.2 (mg/dL) BUN 12 6 - 20 (mg/dL) CREATININE 0.94 0.67 - 1.17 (mg/dL) GLUCOSE 114 (*) 65 - 99 (mg/dL) GFR, >60 >=60 (mL/min/1.7 sq meter) GFR >60 >=60 (mL/min/1.7 sq meter) C-REACTIVE PROTEIN Component Value Range CRP 16.3 (*) 0.0 - 0.8 (mg/dL) Assessment/Plan: 1. Sepsis: Met SIRS criteria (Leukocytosis, tachycardia, tachypnea, mild fever) on admission. Low grade fever this AM, however WBC and CRP trending down. Source likely intrabdominal infection vs. Respiratory? Started on IV Levaquin and Flagyl, will continue. Repeat CXR negative this AM. Influenza swab negative. LA normal, no hypotension or need for pressors. Continue IVFs. 2. Abdominal pain/diarrhea: Pouchitis vs. Infectious enteritis? Pt has hx of UC s/p total colectomy. May have concurrent Crohn's disease now as well. GI consulted, recommend start solumedrol and probiotic. Possibility of PICC line to start prophylactic TPN per GI recommendations? Continue asacol atincreased dose 800mg TID. Continue IV flagyl, soft bland diet and support with IVFs. Discussed use of narcotics with patient, with increase percocet with dilaudid only for breakthrough pain. C diff negative. 3. Cough: 5 day hx of cough, fever, chills, and positive SIRS criteria. Possible bronchitis, repeatcxr today negative. Treat with Levaquin, Flovent BID, duonebs. 4. Hyponatremia: likely 2/2 dehydration from diarrhea. Na improving, Continue IVFs, recheck BMP in AM 5. ARF: Cr elevated at 1.23 on admission likely 2/2 dehydration, improved today, continue IVFs, repeat BMP in am DVT Prophylaxis - Enoxaparin Benito catheter:absent Lines: Peripheral IV Current Code Status -Full Code Plan discussed with patient and spouse, questions answered; patient agrees with current plan. Discussed with Dr. Humphrey Reyna MD * Sierra Yin MD - 02/24/2012 8:54 AM CDT [facility] Hospitalist Attending Note Patient seen and examined with the resident team. I have reviewed the note as dictated and agree with the assessment and plan, as dictated, with the exceptions, if any, noted below. Exam: c/o some neck spasm early this morning which is better with Flexeril. Abdominal pain not too bad per patient but has been using a lot of IV narcotics. General appearance alert, cooperative, no distress, appears stated age Lungs clear to auscultation bilaterally Heart regular rate and rhythm, S1, S2 normal, no murmur, click, rub or gallop Abdomen soft, mildly TTP in lower quadrants. Bowel sounds normal. No masses, No organomegaly Extremities extremities normal, atraumatic, no cyanosis or edema Pulses 2+ and symmetric Neurologic Normal Data Review: Discussed and as indicated above. Assessment/Plan: Agree with Dr. Chahal note. In addition: I have placed a call for Dr. Ryan to D/W him need for TPN, need for NPO. Will place the PICC line today. Prealbumin is low and if p. . Intake does not improve next 24 hrs will likely need parenteral nutrition. Consult nutrition. . Sierra Yin MD [facility] Hospitalist Page [phone] * Trevor Toledo MD - 02/24/2012 8:42 AM CDT Admit Date: 02/22/2012 GASTROENTEROLOGY PROBLEM: Ileo- Pouchitis Subjective: Patient not tolerating current diet overnight. Still with diarrhea. Nausea with little vomiting. Abdominal pain requiring round the clock IV narcotics. Objective: Filed Vitals: 02/23/12 0957 02/23/12 1427 02/23/12 2134 02/24/12 0811 BP: 135/81 121/77 121/79 Pulse: 106 112 112 Temp: 98.1 ??F (36.7 ??C) 97.5 ??F (36.4 ??C) 99.8 ??F (37.7 ??C) TempSrc: Oral Oral Oral Resp: 14 18 18 16 Height: Weight: SpO2: 95% 95% 94% 94% Heart: RRR Lungs: clear Abdomen: Soft, tender mostly in lower quadrants. Assessment/Plan: 1. Abdominal pain/fever - ? IBD vs infectious enteritis vs pouchitis. Refractory to outpatient treatment. Responding to IV antibiotics at this time. Certainly this could still represent just a severecase of pouchitis. Interestingly though he has diffuse inflammation proximal to the actual pouch into the ileum which is not common with simple pouchitis. This is suspicious for new inflammatory bowel. In this case Crohn's must be considered given that UC is unlikely in the setting of total colectomy. C & S have been unrevealing for an infectious cause. 2. Sepsis -w/u per primary team. PLAN 1. Given continued need for high dose pain medications as well as other ongoing symptoms with current medical management suspect there is component of refractory IBD, therefore start steroids today with solumedrol 20 mg IV q 8 hr. There is no evidence behind higher doses beyond this. 2. Will obtain picc line for TPN for nutritional support during this acute phase. 3. Consider GROUP THERAPY COUNSELOR for pain management given frequency of narcotic needs. 4. Will review previous pathology at the time of his UC diagnosis. Will obtain normal vadim stoolsensitivities. 5. Continue current antibiotics and Asacol for now. Will add probiotic. 6. Place PPD in preporation for possible biologics after this acute flare. 7. Further recommendations per clinical course. The above has been discussed with Dr. Ryan. Lab Results: Lab Results Component Value Date WBC 10.6* 02/24/2012 HEMOGLOBIN 13.2* 02/24/2012 HEMATOCRIT 40.0 02/24/2012 PLATELETS 370* 02/24/2012 MCV 87.0 02/24/2012 Lab Results Component Value Date CRP 16.3* 02/24/2012 Lab Results Component Value Date SODIUM 128* 02/24/2012 POTASSIUM 4.8 02/24/2012 CHLORIDE 96 02/24/2012 CO2 26 02/24/2012 CALCIUM 8.6 02/24/2012 BUN 12 02/24/2012 CREATININE 0.94 02/24/2012 GLUCOSE 114* 02/24/2012 TOTAL PROTEIN 8.5 02/22/2012 ALBUMIN 4.2 02/22/2012 BILIRUBIN TOTAL 0.7 02/22/2012 ALKALINE PHOSPHATASE 100 02/22/2012 AST 24 02/22/2012 ALT 35 02/22/2012 Patient Vitals for the past 24 hrs: BP Temp Temp src Pulse Resp SpO2 02/24/12 0811 121/79 mmHg 99.8 ??F (37.7 ??C) Oral 112 16 94 % 02/23/12 2134 121/77 mmHg 97.5 ??F (36.4 ??C) Oral 112 18 94 % 02/23/12 1427 135/81 mmHg 98.1 ??F (36.7 ??C) Oral 106 18 95 % 02/23/12 0957 - - - - 14 95 % 02/23/12 0850 - - - 108 - - Intake/Output Summary (Last 24 hours) at 02/24/12 0846 Last data filed at 02/24/12 0613 Gross per 24 hour Intake 3038 ml Output 200 ml Net 2838 ml Trevor Tloedo MD 02/24/2012 * Rachell Reyna MD - 02/23/2012 1:34 PM CDT [facility] Med Progress Note Admit Date: 02/22/2012 Date of Note: 02/23/2012, 1:34 PM LOS: 1 day Subjective: Brief history: 41 yo M with PMH of ulcerative colitis s/p colectomy in 2001 who present with 2 weekhx of abdominal pain and diarrhea. His colorectal surgeon Dr. Sotelo performed colonoscopy which revealed pouchitis. Also performed dilatation of ileoanal anastomosis at that time. Started on asacoland flagyl, however pain and diarrhea worsened. Also reported subjective fevers, chills, and decreased PO intake. Pt also complains of cough and burning chest pain for 5 days. Overnight: Pt still having some generalized abdominal pain this AM. Reports 1 episode of bloody looking diarrhea this AM. Objective: BP 126/74 Pulse 108 Temp(Src) 97.9 ??F (36.6 ??C) (Oral) Resp 14 Ht 5' 9 (1.753 m) Wt 166 lb (75.297 kg) BMI 24.51 kg/m2 SpO2 95% Temp (24hrs), Av.1 ??F (37.3 ??C), Min:97.9 ??F (36.6 ??C), Max:100.6 ??F (38.1 ??C) Exam: Gen alert, cooperative, no distress, appears stated age HEENT NC/AT, EOMI, no cervical LAD, PERRL Lungs Mild wheezing in left lung Heart regular rate and rhythm, S1, S2 normal, no murmur, click, rub or gallop Abdomen soft, TTP in lower quadrants. Bowel sounds normal. 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 Data Base: Results for orders placed during the hospital encounter of 02/22/12 (from the past 24 hour(s)) COMPREHENSIVE METABOLIC PANEL Component Value Range SODIUM 126 (*) 135 - 145 (mmol/L) POTASSIUM 5.3 (*) 3.5 - 4.9 (mmol/L) CHLORIDE 92 (*) 96 - 108 (mmol/L) CO2 18 (*) 22 - 30 (mmol/L) CALCIUM 10.2 8.6 - 10.2 (mg/dL) BUN 18 6 - 20 (mg/dL) CREATININE 1.23 (*) 0.67 - 1.17 (mg/dL) GLUCOSE 123 (*) 65 - 99 (mg/dL) TOTAL PROTEIN 8.5 6.3 - 8.6 (g/dL) ALBUMIN 4.2 3.4 - 4.8 (g/dL) BILIRUBIN TOTAL 0.7 0.2 - 1.0 (mg/dL) ALKALINE PHOSPHATASE 100 40 - 129 (U/L) AST 24 12 - 38 (U/L) ALT 35 0 - 41 (U/L) GFR, >60 >=60 (mL/min/1.7 sq meter) GFR >60 >=60 (mL/min/1.7 sq meter) LIPASE Component Value Range LIPASE 40 13 - 60 (U/L) CBC WITH DIFFERENTIAL Component Value Range WBC 13.7 (*) 4.0 - 9.8 (K/uL) RBC 5.08 4.50 - 5.40 (M/uL) HEMOGLOBIN 14.9 13.6 - 16.5 (g/dL) HEMATOCRIT 43.3 40.0 - 48.0 (%) MCV 85.2 82.0 - 99.0 (fL) MCH 29.3 27.2 - 32.6 (pg) MCHC 34.4 31.5 - 35.5 (%) PLATELETS 343 140 - 350 (K/uL) MPV 9.8 9.3 - 12.4 (fL) RDW 12.9 11.5 - 14.5 (%) RDW-STDEV 40.4 37.1 - 48.7 (fL) NEUTROPHILS 79 (*) 45 - 70 (%) LYMPHOCYTES 10 (*) 16 - 45 (%) MONOCYTES 10 3 - 13 (%) EOSINOPHILS 0 0 - 7 (%) BASOPHILS 0 0 - 2 (%) NEUTROPHIL ABSOLUTE 10.89 (*) 1.90 - 7.00 (K/uL) LYMPHOCYTE ABSOLUTE 1.38 0.70 - 4.50 (K/uL) MONOCYTE ABSOLUTE 1.37 (*) 0.10 - 1.30 (K/uL) EOSINOPHIL ABSOLUTE 0.06 0.00 - 0.70 (K/uL) BASOPHILS ABSOLUTE 0.04 0.00 - 0.20 (K/uL) INFLUENZA VIRUS A AND B ANTIGEN Component Value Range FINAL MICRO REPORT Value: Influenza A Antigen: Negative by ICT assay. Influenza B Antigen: Negative by ICT assay. -- Note: A negative does not rule out infection. CLOSTRIDIUM DIFFICILE TOXIN Component Value Range C DIFF TOXIN PCR RESULT Negative Negative C DIFF TOXIN PCR SOURCE Stool URINALYSIS WITH REFLEX CULTURE Component Value Range URINE CULTURE ORDER Culture ordered URINALYSIS Component Value Range COLOR UA Yellow CLARITY UA Clear Clear SPECIFIC GRAVITY UA 1.060 (*) 1.001 - 1.035 PH UA 6.5 5.0 - 8.0 LEUKOCYTE ESTERASE UA Negative Negative NITRITE UA Negative Negative PROTEIN UA 1+ (*) Negative GLUCOSE UA Negative Negative KETONES UA 2+ (*) Negative UROBILINOGEN UA <1 <=1 (mg/dL) BILIRUBIN UA Negative Negative BLOOD UA Trace (*) Negative WBC UA 1 0 - 3 (/HPF) RBC UA 4 (*) 0 - 3 (/HPF) HYALINE CAST 27 (*) 0 - 2 (/LPF) CBC WITH DIFFERENTIAL Component Value Range WBC 12.1 (*) 4.0 - 9.8 (K/uL) RBC 4.98 4.50 - 5.40 (M/uL) HEMOGLOBIN 14.6 13.6 - 16.5 (g/dL) HEMATOCRIT 42.8 40.0 - 48.0 (%) MCV 85.9 82.0 - 99.0 (fL) MCH 29.3 27.2 - 32.6 (pg) MCHC 34.1 31.5 - 35.5 (%) PLATELETS 370 (*) 140 - 350 (K/uL) MPV 9.8 9.3 - 12.4 (fL) RDW 13.3 11.5 - 14.5 (%) RDW-STDEV 41.5 37.1 - 48.7 (fL) NEUTROPHILS, SEG 34 (*) 45 - 70 (%) BANDS 33 (*) 0 - 5 (%) LYMPHOCYTES 13 (*) 16 - 45 (%) MONOCYTES 14 (*) 3 - 13 (%) EOSINOPHILS 2 0 - 7 (%) BASOPHILS 0 0 - 2 (%) METAMYELOCYTE 4 (*) <=0 (%) PLATELET EST. Consistent w/ count Normal NEUTROPHIL ABSOLUTE 8.11 (*) 1.90 - 7.00 (K/uL) LYMPHOCYTE ABSOLUTE 1.57 0.70 - 4.50 (K/uL) MONOCYTE ABSOLUTE 1.69 (*) 0.10 - 1.30 (K/uL) EOSINOPHIL ABSOLUTE 0.24 0.00 - 0.70 (K/uL) BASOPHILS ABSOLUTE 0.00 0.00 - 0.20 (K/uL) RBC MORPHOLOGY Normal Normal BASIC METABOLIC PANEL Component Value Range SODIUM 126 (*) 135 - 145 (mmol/L) POTASSIUM 4.3 3.5 - 4.9 (mmol/L) CHLORIDE 95 (*) 96 - 108 (mmol/L) CO2 18 (*) 22 - 30 (mmol/L) CALCIUM 9.1 8.6 - 10.2 (mg/dL) BUN 17 6 - 20 (mg/dL) CREATININE 1.06 0.67 - 1.17 (mg/dL) GLUCOSE 104 (*) 65 - 99 (mg/dL) GFR, >60 >=60 (mL/min/1.7 sq meter) GFR >60 >=60 (mL/min/1.7 sq meter) LACTIC ACID Component Value Range LACTIC ACID 0.9 0.5 - 2.2 (mmol/L) C-REACTIVE PROTEIN Component Value Range CRP 21.7 (*) 0.0 - 0.8 (mg/dL) CORTISOL LEVEL Component Value Range CORTISOL LEVEL 43.0 Assessment/Plan: 1. Sepsis: Meets SIRS criteria (Leukocytosis, tachycardia, tachypnea, mild fever) also has acute renal failure although likely 2/2 to dehydration. Source likely intrabdominal infection vs. Respiratory? Started on IV Levaquin and Flagyl, will continue. CXR negative for effusions, consolidations, or i nfiltrates. Influenza swab negative. LA normal, no hypotension or need for pressors. Continue IVFs. 2. Ulcerative colitis flare/ pouchitis: Has been on Asacol 400mg BID, increase to 800mg TID. Continue IV flagyl, advance diet as tolerated and support with IVFs. Dr. Sotelo consulted, will also consult GI. Continue pain management with percocet, dilaudid for breakthrough pain. C diff negative. 3. Cough: 5 day hx of cough, fever, chills, and positive SIRS criteria. Possible bronchitis, will repeat CXR tomorrow AM to r/o developing pneumonia. Treat with Levaquin, Flovent BID, duonebs. 4. Hyponatremia: likely 2/2 dehydration from diarrhea. Sodium deficit of 405 mEq. Will need total of 2.6 L NS at 110 cc/hr for 24 hrs to correct to 136. Continue IVFs, recheck BMP in AM 5. ARF: Cr elevated at 1.23 likely 2/2 dehydration will replete fluids as above, repeat BMP in am 6. AGMA: likely 2/2 ketosis, will recheck BMP in am after IVF. DVT Prophylaxis - Enoxaparin Benito catheter:absent Lines: Peripheral IV Current Code Status -Full Code Plan discussed with patient and spouse, questions answered; patient agrees with current plan. Discussed with Dr. Humphrey Reyna MD * Sierra Yin MD - 02/23/2012 1:34 PM CDT [facility] Hospitalist Attending Note Patient seen and examined with the resident team. I have reviewed the note as dictated and agree with the assessment and plan, as dictated, with the exceptions, if any, noted below. Exam: General appearance alert, cooperative, no distress, appears stated age Lungs clear to auscultation bilaterally Heart regular rate and rhythm, S1, S2 normal, no murmur, click, rub or gallop Abdomen soft, tender lower abdomen. Bowel sounds normal. No masses, No organomegaly Extremities extremities normal, atraumatic, no cyanosis or edema Pulses 2+ and symmetric Neurologic Normal Data Review: Discussed and as indicated above. Assessment/Plan: 1.Sepsis- leucocytosis+ Tachycardia+ pouchitis . Continue Levaquin/ Flagyl IV. Continue fluids. Follow inflammatory markers. 2.Cough- probably bronchitis. Recheck CXR after hydration to make sure no Pneumonia. Corrent antibiotics adequate coverage for that also. 3.ARF- probably prerenal. Improving. Continue fluids. 4. AGMA- on admission. AG now closing. Probably due to ARF. Lactate normal. Continue IV fluids and monitor BMP. 5. Disposition- hopefully home in 2-4 days depending upon clinical improvement and recommendations from GI and surgery. Sierra Yin MD [facility] Hospitalist Page [phone] * Donna Hernandez - 02/23/2012 10:27 AM CDT The aircraft technician has clarified the prior to admission medication list and it is ready for your review. If you concur with the updates below, you will need to make the necessary changes within the patients electronic health record. The following are clarifications to current list within the electronic health record. 1. The patient said he was no longer on Metronidazole (Flagyl) 500 mg tablet by mouth three times daily. He said he had completed his therapy. 2. The following are additions to the current list within the electronic health record. 1. 2. The following medications are marked for removal as the patient relates they are no longer taking this medication. 1.Metronidazole (Flagyl) 500 mg tablet by mouth three times daily. 2. Source of information: Patient documented in this encounter H&P Notes * Bo Butler DO - 02/23/2012 2:06 AM CDT [facility] Resident H&P Patient Name: Mukul Huber Courtesy Copy PCP: Martin Kelley MD Date of Admission: 02/22/2012 Date of Service: 02/23/2012 CC: Abdominal pain HPI: Patient is a 41 y.o. male with PMHx of UC who presents with two week hx of abdominalpain and severe diarrhea. He began having abdominal pain about two weeks ago. He called his GI, , who performed a colonoscopy and performed dilatation of his ileoanal anastomosis. Colonoscopy revealed pouchitis and he was started on a course of flagyl and asacol. The following day he began having multiple bouts of diarrhea. He later developed abdominal pain and reports chills and subjective fevers. His abdominal pain escalated to 9/10 and has been constant for about the past two dayswith continued diarrhea and nausea. He has only been able to tolerate small amounts of oral intake for about 5 days. He also developed a cough and a burning type chest discomfort 5 days ago. He has no other complaints. PMHx: Past Medical History Diagnosis Date ??? Ulcerative colitis ??? Unspecified adverse effect of anesthesia violent after 1st surgery ??? Ulcerative colitis PSurgHx: Past Surgical History Procedure Date ??? Hx colectomy 2001 ??? Pr colonoscopy,diagnostic 12/08/2009 COLONOSCOPY performed by WILLIAN SOTELO at [facility] ??? Pr sigmoidoscopy,diagnostic 02/16/2012 SIGMOIDOSCOPY FLEXIBLE performed by Willian Sotelo MD at [facility] ??? Pr endoscopy of bowel pouch 02/16/2012 POUCHOSCOPY performed by Willian Sotelo MD at [facility] Outpt Meds: Prior to Admission Medications Medication Last Dose Informant Patient Reported? Taking? HYDROcodone-acetaminophen (NORCO) 5-325 mg Oral tablet 02/22/2012 at Unknown Yes Yes Take 1 Tab by mouth every 4 hours as needed. mesalamine (ASACOL) 400 mg Oral TbEC 02/22/2012 at Unknown Yes Yes Take 400 mg by mouth 2 times daily. metroNIDAZOLE (FLAGYL) 500 mg Oral tablet Yes No Take 500 mg by mouth 3 times daily. All:No Known Allergies FamHx: Family History Problem Relation Age of Onset ??? Heart Disease Father ??? Hypertension Mother ??? Healthy Sister ??? Healthy Brother SocHx: History Substance Use Topics ??? Smoking status: Former Smoker -- 0.5 packs/day for 10 years Types: Cigarettes ??? Smokeless tobacco: Not on file Comment: off & on ??? Alcohol Use: No Review of Systems History from chart review and the patient General positive for - chills, fever and sleep disturbance ENT negative for nasal congestion, drainage or bleeding, sore throat, dysphagia or ear pain Heme/Lymph negative for swollen glands or abnormal bleeding Endocrine negative for polyuria/polydipsia or new changes in weight CV positive for - chest pain and fatigue Respiratory positive for - cough, fatigue and shortness of breath negative for - hemoptysis, pleuritic pain or sputum changes GI positive for - abdominal pain, appetite loss, diarrhea and nausea/vomiting negative for - blood in stools, constipation, gas/bloating, hematemesis or melena negative for dysuria, trouble voiding, or hematuria MS negative for back pain, neck pain or joint pain or swelling Neuro negative for TIA or stroke symptoms Derm negative for skin rashes or unusual skin lesions All Other ROS Negative Physical Exam: BP 128/85 Pulse 122 Temp(Src) 98.2 ??F (36.8 ??C) (Oral) Resp 18 Ht 5' 9 (1.753 m) Wt 166 lb (75.297 kg) BMI 24.51 kg/m2 SpO2 94% General appearance alert, cooperative, mild distress, appears stated age Head Normocephalic, without obvious abnormality, atraumatic Eyes conjunctivae/corneas clear. PERRL, EOM's intact. Nose Nares normal. Septum midline. Mucosa normal. No drainage or sinus tenderness. Throat Lips, mucosa, and tongue dry. Teeth and gums normal Neck supple, symmetrical, trachea midline, no adenopathy, thyroid: not enlarged, symmetric, no tenderness/mass/nodules, no carotid bruit and no JVD Lungs Coarse breathsounds diffusely with wheezing, no rales or consolidation Chest wall no tenderness Heart Sinus tachycardia, S1, S2 normal, no murmur, click, rub or gallop Abdomen TTP diffusely concentrated in lower abd, hyperactive bowel sounds, mid line celiotomy scar Extremities extremities normal, atraumatic, no cyanosis or edema Pulses 2+ and symmetric Skin Skin color, texture, turgor normal. No rashes or lesions Lymph nodes Cervical, supraclavicular, and axillary nodes normal. Neurologic Cranial nerves 2 thru 12 grossly normal, moves all extremities well Data Base: Results for orders placed during the hospital encounter of 02/22/12 (from the past 24 hour(s)) COMPREHENSIVE METABOLIC PANEL Component Value Range SODIUM 126 (*) 135 - 145 (mmol/L) POTASSIUM 5.3 (*) 3.5 - 4.9 (mmol/L) CHLORIDE 92 (*) 96 - 108 (mmol/L) CO2 18 (*) 22 - 30 (mmol/L) CALCIUM 10.2 8.6 - 10.2 (mg/dL) BUN 18 6 - 20 (mg/dL) CREATININE 1.23 (*) 0.67 - 1.17 (mg/dL) GLUCOSE 123 (*) 65 - 99 (mg/dL) TOTAL PROTEIN 8.5 6.3 - 8.6 (g/dL) ALBUMIN 4.2 3.4 - 4.8 (g/dL) BILIRUBIN TOTAL 0.7 0.2 - 1.0 (mg/dL) ALKALINE PHOSPHATASE 100 40 - 129 (U/L) AST 24 12 - 38 (U/L) ALT 35 0 - 41 (U/L) GFR, >60 >=60 (mL/min/1.7 sq meter) GFR >60 >=60 (mL/min/1.7 sq meter) LIPASE Component Value Range LIPASE 40 13 - 60 (U/L) CBC WITH DIFFERENTIAL Component Value Range WBC 13.7 (*) 4.0 - 9.8 (K/uL) RBC 5.08 4.50 - 5.40 (M/uL) HEMOGLOBIN 14.9 13.6 - 16.5 (g/dL) HEMATOCRIT 43.3 40.0 - 48.0 (%) MCV 85.2 82.0 - 99.0 (fL) MCH 29.3 27.2 - 32.6 (pg) MCHC 34.4 31.5 - 35.5 (%) PLATELETS 343 140 - 350 (K/uL) MPV 9.8 9.3 - 12.4 (fL) RDW 12.9 11.5 - 14.5 (%) RDW-STDEV 40.4 37.1 - 48.7 (fL) NEUTROPHILS 79 (*) 45 - 70 (%) LYMPHOCYTES 10 (*) 16 - 45 (%) MONOCYTES 10 3 - 13 (%) EOSINOPHILS 0 0 - 7 (%) BASOPHILS 0 0 - 2 (%) NEUTROPHIL ABSOLUTE 10.89 (*) 1.90 - 7.00 (K/uL) LYMPHOCYTE ABSOLUTE 1.38 0.70 - 4.50 (K/uL) MONOCYTE ABSOLUTE 1.37 (*) 0.10 - 1.30 (K/uL) EOSINOPHIL ABSOLUTE 0.06 0.00 - 0.70 (K/uL) BASOPHILS ABSOLUTE 0.04 0.00 - 0.20 (K/uL) INFLUENZA VIRUS A AND B ANTIGEN Component Value Range FINAL MICRO REPORT Value: Influenza A Antigen: Negative by ICT assay. Influenza B Antigen: Negative by ICT assay. -- Note: A negative does not rule out infection. URINALYSIS WITH REFLEX CULTURE Component Value Range URINE CULTURE ORDER Culture ordered URINALYSIS Component Value Range COLOR UA Yellow CLARITY UA Clear Clear SPECIFIC GRAVITY UA 1.060 (*) 1.001 - 1.035 PH UA 6.5 5.0 - 8.0 LEUKOCYTE ESTERASE UA Negative Negative NITRITE UA Negative Negative PROTEIN UA 1+ (*) Negative GLUCOSE UA Negative Negative KETONES UA 2+ (*) Negative UROBILINOGEN UA <1 <=1 (mg/dL) BILIRUBIN UA Negative Negative BLOOD UA Trace (*) Negative WBC UA 1 0 - 3 (/HPF) RBC UA 4 (*) 0 - 3 (/HPF) HYALINE CAST 27 (*) 0 - 2 (/LPF) EKG: EKG not indicated today Imaging: No results found for this or any previous visit. Assessment/Plan: 1. Possible Sepsis: Meets SIRS criteria (Leukocytosis, tachycardia, mild fever) also has acute renal failure although likely 2/2 to dehydration. Will cover with Abx of LRTI and possible intra-abdominal source with Levaquin and Flagyl. Check CXR, influenza swab 2. Ulcerative colitis flare: Has been on Asacol 400mg BID will increase to 800mg TID. IV flagyl, Clear liquid diet, Consult Dr. Sotelo in am. Support with IVF and pain management. Check C.diff toxinand Stool cx 3. Acute bronchitis: with 5 day hx of cough, fever, chills, and positive SIRS criteria. Treat with Levaquin, Flovent BID, duonebs 4. Hyponatremia: likely 2/2 dehydration from diarrhea. Sodium deficit of 405 mEq. Will need total of 2.6 L NS at 110 cc/hr for 24 hrs to correct to 136. 5. ARF: Cr elevated at 1.23 likely 2/2 dehydration will replete fluids as above, repeat BMP in am 6. AGMA: likely 2/2 ketosis, will recheck BMP in am after IVF. DVT Prophlaxis - Enoxaparin Current Planned Disposition - home Plan discussed with patient and spouse; questions answered; patient agrees with current plan. Current Code Status -Full Code More than 1 hour were spent in the care of this patient today; this may include family conference,nursing conference and discussion with any consultants. Plan d/w Dr. Immanuel Butler D.O. PGY1 [phone] * Richelle Gambino MD - 02/23/2012 2:06 AM CDT Agree-see my note Discussed with resident * Richelle Gambino MD - 02/23/2012 12:47 AM CDT [facility] Hospitalist Admission H & P Patient Name: Mukul Palomino Rebekahyesi Primary Care Doctor: Martin Kelley MD Admitting Hospitalist:Richelle Gambino MD Date of Admission: 02/22/2012 Date of Service: 02/23/2012 Chief Complaint: 10 days abdominal cramping, increase in loose stools HPI: Patient is a 41 y.o. WM with UC admitted with increasing lower abdominal cramping, fever, shaking chills, cough, atypical chest pain. The patient has a history of ulcertive colitis and underwenta restorative procto-colectomy in 2001. A temporary loop ileostomy was subsequently closed in June of that year. In September 2002, he was found to have a tight cicatrix and in October 2002 underwent a balloon dilatation of the anastomosis. He has undergone periodic dilatation on an office basis, but this became increasingly uncomfortable for him to the point that he stopped making office appointments. He has had two episodes of pouchitis in the past treated with Flagyl. He has been on Asacol 400 mg twice a day for suppression in the past. About 10 days prior to admission, he began having lower abdominal cramping and increase in loose stools with mucus. He saw Dr. Sotelo and underwent endoscopy of pelvic ileal J pouch with multiple biopsies, balloon dilatation of ileal pouch anal anastomosis on 02/16/12, pathology with ACTIVE ILEITIS (POUCHITIS) WITH MODERATE ACTIVITY. He was started on metronidazole,(completed) and Asacol. The day following the procedure he had subjective fever and shaking chills. He continued to have abdominal cramping, nausea with 2 episodes of vomiting, loose stools with mucus. As well, 2-3 days prior to admission, he noted dry cough, intermittent wheezing and fleeting upper bilateral chest pains. He denies hemoptysis. 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 Medication Allergies:No Known Allergies Current Medications: Prescriptions prior to admission Medication Sig Dispense Refill ??? HYDROcodone-acetaminophen (NORCO) 5-325 mg Oral tablet Take 1 Tab by mouth every 4 hours as needed. ??? mesalamine (ASACOL) 400 mg Oral TbEC Take 400 mg by mouth 2 times daily. ??? metroNIDAZOLE (FLAGYL) 500 mg Oral tablet Take 500 mg by mouth 3 times daily. Past Medical History ?? UC ?? Hx C.Diff ?? Former smoker ?? Past Surgical History Procedure Date ??? Hx colectomy 2001 ??? Pr colonoscopy,diagnostic 12/08/2009 COLONOSCOPY performed by WILLIAN SOTELO at [facility] ??? Pr sigmoidoscopy,diagnostic 02/16/2012 SIGMOIDOSCOPY FLEXIBLE performed by Willian Sotelo MD at [facility] ??? 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 Smoking status: Former Smoker -- 0.5 packs/day for 10 years Types: Cigarettes ??? Smokeless tobacco: Not on file Comment: off & on ??? Alcohol Use: No Family History: Family History Problem Relation Age of Onset ??? Heart Disease Father ??? Hypertension Mother ??? Healthy Sister ??? Healthy Brother Review of Systems: Constitutional: see HPI HEENT: Denies vision loss, [place], dental work, No trouble swallowing Resp: see HPI CV: denies previous NC, palpitations, syncope, PND, orthopnea, or LE edema, claudication GI:+ heart burn, no overt hematemesis, coffee ground emesis or blood in stools : denies dysuria, frequency, hematuria, hesitancy, incontinence Skin: denies rash Breast: denies skin lesion(s), lumps, discharge, tenderness Hematologic, Oncologic, Lymphatic: denies bruising, bleeding, previous cancer Musculoskeletal: denies: myalgia, arthralgia, stiff joints, neck pain, back pain, Neurological: denies seizures, strokes, Behavior, Psychologic: denies anxiety, mood issues, substance use, unusual fears Endocrine: No previous DM, thyroid disease Physical Exam: Patient Vitals for the past 8 hrs: BP Temp Temp src Pulse Resp SpO2 Weight 02/22/12 2341 128/85 mmHg 98.2 ??F (36.8 ??C) Oral 122 18 94 % 166 lb (75.297 kg) 02/22/12 2202 135/74 mmHg 100.6 ??F (38.1 ??C) - 117 18 95 % - 02/22/122028 122/75 mmHg - - 110 18 95 % - 02/22/12 1914 132/79 mmHg 100.3 ??F (37.9 ??C) Oral 116 18 91 % - General: Alert, cooperative, no apparent distress Head: Normocephalic, atraumatic. Eyes: Sclerae anicteric. EOMs intact. Mouth: Oropharynx clear and moist with no lesions. Neck: Supple, No LAD, no carotid bruit, no JVD. Lungs: Diminished with coarse BS, intermittent faint exp wheezes Heart: Regular rate and rhythm, regular tachycardia Abdomen: Bowel sounds present, non-distended, soft, nontender at present Extremities: No cyanosis, clubbing or edema. Pulses: 2+ and symmetric all extremities. Skin: No rashes or lesions. Neurologic: CNIII-XII intact. Strength normal throughout. Results for orders placed during the hospital encounter of 02/22/12 (from the past 24 hour(s)) COMPREHENSIVE METABOLIC PANEL Component Value Range SODIUM 126 (*) 135 - 145 (mmol/L) POTASSIUM 5.3 (*) 3.5 - 4.9 (mmol/L) CHLORIDE 92 (*) 96 - 108 (mmol/L) CO2 18 (*) 22 - 30 (mmol/L) CALCIUM 10.2 8.6 - 10.2 (mg/dL) BUN 18 6 - 20 (mg/dL) CREATININE 1.23 (*) 0.67 - 1.17 (mg/dL) GLUCOSE 123 (*) 65 - 99 (mg/dL) TOTAL PROTEIN 8.5 6.3 - 8.6 (g/dL) ALBUMIN 4.2 3.4 - 4.8 (g/dL) BILIRUBIN TOTAL 0.7 0.2 - 1.0 (mg/dL) ALKALINE PHOSPHATASE 100 40 - 129 (U/L) AST 24 12 - 38 (U/L) ALT 35 0 - 41 (U/L) GFR, >60 >=60 (mL/min/1.7 sq meter) GFR >60 >=60 (mL/min/1.7 sq meter) LIPASE Component Value Range LIPASE 40 13 - 60 (U/L) CBC WITH DIFFERENTIAL Component Value Range WBC 13.7 (*) 4.0 - 9.8 (K/uL) RBC 5.08 4.50 - 5.40 (M/uL) HEMOGLOBIN 14.9 13.6 - 16.5 (g/dL) HEMATOCRIT 43.3 40.0 - 48.0 (%) MCV 85.2 82.0 - 99.0 (fL) MCH 29.3 27.2 - 32.6 (pg) MCHC 34.4 31.5 - 35.5 (%) PLATELETS 343 140 - 350 (K/uL) MPV 9.8 9.3 - 12.4 (fL) RDW 12.9 11.5 - 14.5 (%) RDW-STDEV 40.4 37.1 - 48.7 (fL) NEUTROPHILS 79 (*) 45 - 70 (%) LYMPHOCYTES 10 (*) 16 - 45 (%) MONOCYTES 10 3 - 13 (%) EOSINOPHILS 0 0 - 7 (%) BASOPHILS 0 0 - 2 (%) NEUTROPHIL ABSOLUTE 10.89 (*) 1.90 - 7.00 (K/uL) LYMPHOCYTE ABSOLUTE 1.38 0.70 - 4.50 (K/uL) MONOCYTE ABSOLUTE 1.37 (*) 0.10 - 1.30 (K/uL) EOSINOPHIL ABSOLUTE 0.06 0.00 - 0.70 (K/uL) BASOPHILS ABSOLUTE 0.04 0.00 - 0.20 (K/uL) UA pending ECG: pending Chest X ray: Ordered. Assessment/ Plan Patient is a 41 y.o. WM with UC admitted with increasing lower abdominal cramping, fever, shaking chills, cough, atypical chest pain 1. Sepsis/SIRs not excluded - continue monitoring; cultures ordered, empiric antibiotics to cover LRTI and ileitis. Leukocytosis, ST, low grade fevers. 2. UC flare - increase Asacol, IV antibiotics as above, clear liquids, Dr. Sotelo consultation. Consider GI consultation as well. 3. Possible COPD/asthma exacerbation - former smoker; pulmonary hygiene, inhaled steroids, antibiotics. 4. Acute bronchitis, exclude pneumonia - 5. Suspect dehydration, hypovolemia - IVFs 6. Hyponatremia - suspect due to hypovolemia, trend with hydration/IVFs 7. ARF - mild elevation of Cr to 1.23, K=5.3, monitor response to fluids; await urine studies. 8. Non-anion gap acidosis - recheck post IV hydration; screen cortisol level. 9. DVT Prophylaxis SQ Lovenox 10. GI Prophylaxis: PPI 11. Code status Full Code More than 1 hour were spent in the care of this patient today; this may have included family conferences, nursing conferences and discussion with any consultants documented in this encounter Procedure Notes * Stl Scanning, [facility] - 03/07/2012 1:59 PM CDTAssociated Order(s): GI REPORT Electronically signed by Reggie [facility] Stl Cyber Security Engineer Incoming at 03/07/2012 1:59 PM CDT * Stl Scanning, [facility] - 02/28/2012 3:53 PM CDTAssociated Order(s): EKG 12-LEAD * Katie Ryan MD - 02/28/2012 1:57 PM CDTAssociated Order(s): GI REPORT [place], [place] [address] Gastroenterology CSN: [id number] DATE OF SERVICE: 02/28/2012 ENDOSCOPIC PROCEDURE HISTORY Mukul is a 41-year-old male undergoes endoscopic evaluation for inflammatory bowel disease. The patient has a history of proctocolectomy in 2001, who was hospitalized after presenting with severe dehydration, abdominal pain, and pouchitis on endoscopy by Dr. Sotelo. The patient is currently beingtreated with high-dose corticosteroids, IV fluids, and antibiotics. He now undergoes upper endoscopy and endoscopy of his residual small intestine. PROCEDURE With the patient on left side, sedation provided by Anesthesia. The Olympus video endoscope was introduced into oropharynx without difficulty. Esophageal mucosa was smooth without base ulceration. Noerosions or ulcers were seen. The stomach was entered without difficulty. Rugal folds are soft. There was a patchy gastritis involving both the antrum and fundus and biopsies were obtained. No discrete ulcers, polyps, or neoplasms were seen. The pylorus symmetrical duodenal bulb and distal sweep were unremarkable. Small bowel biopsies were obtained. Overall, the patient tolerated the procedure well. DIAGNOSES 1. Mild gastritis. 2. Reflux esophagitis grade 1. Subsequent to this, examination of the lower small intestine is performed. The perianal area is inspected. There is an approximately 6 mm superficial ulceration to the left of the anal canal and buttock. A rectal examination shows to be widely patent with no stenosis and granular mucosa is noted. The endoscope was introduced into the residual pouch. We were immediately impressed by the degree of inflammation with multiple broad ulcerations and exudative drainage. The pouch is diffusely severely abnormal with broad ulcers throughout the pouch. The suture line is identified with multiple andre. Scope was introduced up to small intestine approximately 40 cm, which shows similar appearances. The small intestine is markedly inflamed with multiple ulcerations extending as far as we could see. There was an angle, and I could visualize the small intestine to an approximately another 15 cm, which is completely abnormal with multiple ulcers. Photographs are obtained. Biopsies of the distal small intestine and the pouch are obtained. Overall, the patient tolerated procedure well. DIAGNOSES Severe enteritis involving the pouch and distal small intestine characterized by multiple broad ulcerations and denuded mucosa. DISCUSSION The etiology of this is quite suspicious for Crohn disease. Certainly, one could wonder about autoimmune process, an infectious process and extensive pouchitis. The inflammation of pouchitis extending up the small intestine to this degree is uncommon my experience so makes me is suspicious that it is recurrent inflammatory bowel disease. RECOMMENDATIONS At this time, the patient is on broad-spectrum antibiotics and high-dose corticosteroids. He has been covered with total parenteral nutrition. We will anticipate to proceed with Remicade infusion. Note that, the patient did have a PPD, which was interpreted is negative after 48 hours. We may consider oral vancomycin and the possibility thatC. diff could be present, although stool for C. diff is negative. JSF:MEDQ DID: [id number] Dictated by: Katie Ryan MD documented in this encounter Consult Notes * Inez Ho RN - 03/01/2012 10:41 AM CDTAssociated Order(s): IP CONSULT TO WOUND CARE Wound Care Consult: Pt with history of ulcerative colitis, Has apparent anal fissure at left perianal area, ~ 2x0.4x0.2cm, pink and painful. Having frequent bowel movements. Does get some relief withcalmoseptine. Would add stoma powder to crust area and protect better, Pt instructed that he can use the stoma powder and calmoseptine as often as he wants/needs to. Declined cushion for chair, states he is able to get himself positioned comfortably. Notify field operations technician if skin condition deteriorates. GI following, Surg following. * Naomie Blum RD - 02/24/2012 3:10 PM CDTAssociated Order(s): IP CONSULT TO NUTRITION SERVICES Nutrition Consult:assessment A: Ht: 5'9 Wt: 166# Br: 20 BM: 5/4 Skin: intact Labs:Na 128, gluc 114 Diet: CLD PO:80-100% Nutritional Needs: 1875-2250kcals (25-30kcals/kg) and 90-112g pro (1.2-1.5g pro/kg) Fluid needs: 1900-2300ml Pt not tolerating diet. He said had emesis with dinner. He states tolerating CLD but cannot get adequate nutrition with this. He leary of the CLD supplements. Encouraged pt to try them. He said wt has been stable and 166# is around UBW for him. D: Inadequate oral intake r/t n/v as evidence by vomiting/unable to tolerate diet I: Nutrition Prescription:CLD Nutrition Intervention:REC: TPN: 95g AA, 300g Dex (2.7 glucose infusion rate) and 60g Lipid (2000kcals) Electrolytes per . M/E: 1.will monitor po, wt, labs, skin 2.f/u q4days/PRN * Naomie Blum RD - 02/24/2012 12:24 PM CDTAssociated Order(s): IP CONSULT TO NUTRITION SERVICES Nutrition Consult:assessment A: Ht: 5'9 Wt: 166# Br: 20 BM: 5/4 Skin: intact Labs:Na 128, gluc 114 Diet: CLD PO:80-100% Nutritional Needs: 1875-2250kcals (25-30kcals/kg) and 90-112g pro (1.2-1.5g pro/kg) Fluid needs: 1900-2300ml Pt not tolerating diet. He said had emesis with dinner. He states tolerating CLD but cannot get adequate nutrition with this. He leary of the CLD supplements. Encouraged pt to try them. He said wt has been stable and 166# is around UBW for him. D: Inadequate oral intake r/t n/v as evidence by vomiting/unable to tolerate diet I: Nutrition Prescription:CLD Nutrition Intervention:REC: TPN: 95g AA, 300g Dex (2.7 glucose infusion rate) and 60g Lipid (2000kcals) Electrolytes per . M/E: 1.will monitor po, wt, labs, skin 2.f/u q4days/PRN * Katie Ryan MD - 02/23/2012 5:46 PM CDT 02/23/2012 Mukul Huber CONSULTATION DICTATED: IMPRESSION:ileo-pouchitis. ? Enteritis either infectious vs pouchitis or recurrent IBD (see detailed note) RECOMMENDATIONS:review path; check ibd markers; follow course if fails to respond begin iv steroids. Thanks, Katie Ryan MD 2 * Trevor Toledo MD - 02/23/2012 4:35 PM CDTAssociated Order(s): IP CONSULT TO GI Admit Date: 02/22/2012 Hospital day: LOS: 1 day Physician requesting Consult: Reason for consult: Pouchitis. NOTTAWASEPPI POT[place]ATOMI Patient: Mukul Huber is a 41 yo M with background UC s/p total colectomy with pouch in 2001 who presents with abdominal pain, nausea and dehydration for about 2 weeks. After speaking with Dr. Sotelo he was started on flagyl as an outpatient until he underwent colonoscopy one week ago (02/16/12) which showed pouchitis at which time he was also started on asacol. However he stopped the flagyl atthat time. Few days after the colonoscopy his symptoms recurred and he seen in the ED at [facility] where he was treated for dehydration and was sent home with pain killers and a PPI. After going home he began having subjective fevers, chills. He denies any sick contacts. He does report some blood in his stool every time he stools now. He reports that his frequency of stools has also increased. He was seen in [facility] Ed where he had a CT abdomen which showed some diffuse inflammation just proximal to his illeoanastomosis. This combined with an elevation of inflammatory markers resulted in him being admitted with sepsis likely 2/2 to pouchitis. He has been started on IV levaquin and flagyl with some resolution of his symptoms. We have been consulted for evaluation of possible UC flare/ pouchitis. Patient Active Problem List Diagnoses Date Noted ??? Ulcerative colitis 02/23/2012 ??? Pouchitis 02/23/2012 ??? Acute bronchitis 02/23/2012 ??? SIRS (systemic inflammatory response syndrome) 02/23/2012 ??? Metabolic acidosis 02/23/2012 ??? Sepsis 02/23/2012 ??? JORGE (acute kidney injury) 02/23/2012 ??? Hyponatremia 02/22/2012 ??? Abdominal pain 02/22/2012 Prescriptions prior to admission Medication Sig Dispense Refill ??? HYDROcodone-acetaminophen (NORCO) 5-325 mg Oral tablet Take 1 Tab by mouth every 4 hours as needed. ??? mesalamine (ASACOL) 400 mg Oral TbEC Take 400 mg by mouth 2 times daily. ??? metroNIDAZOLE (FLAGYL) 500 mg Oral tablet Take 500 mg by mouth 3 times daily. No Known Allergies Past Medical History Diagnosis Date ??? Ulcerative colitis ??? Unspecified adverse effect of anesthesia violent after 1st surgery ??? Ulcerative colitis Past Surgical History Procedure Date ??? Hx colectomy 2001 ??? Pr colonoscopy,diagnostic 12/08/2009 COLONOSCOPY performed by WILLIAN SOTELO at [facility] ??? Pr sigmoidoscopy,diagnostic 02/16/2012 SIGMOIDOSCOPY FLEXIBLE performed by Willian Sotelo MD at [facility] ??? Pr endoscopy of bowel pouch 02/16/2012 POUCHOSCOPY performed by Willian Sotelo MD at [facility] Family History Problem Relation Age of Onset ??? Heart Disease Father ??? Hypertension Mother ??? Healthy Sister ??? Healthy Brother History Substance Use Topics ??? Smoking status: Former Smoker -- 0.5 packs/day for 10 years Types: Cigarettes ??? Smokeless tobacco: Not on file Comment: off & on ??? Alcohol Use: No Recently quit smoking 2 months ago. OBJECTIVE Patient Vitals for the past 24 hrs: BP Temp Temp src Pulse Resp SpO2 Weight 02/23/12 1427 135/81 mmHg 98.1 ??F (36.7 ??C) Oral 106 18 95 % - 02/23/12 0957 - - - - 14 95 % - 02/23/12 0850 - - - 108 - - - 02/23/12 0831 - - - 120 12 - - 02/23/12 0736 126/74 mmHg 97.9 ??F (36.6 ??C) Oral 110 18 - - 02/22/12 2341 128/85 mmHg 98.2 ??F (36.8 ??C) Oral 122 18 94 % 75.297 kg (166 lb) 02/22/122201 135/74 mmHg 100.6 ??F (38.1 ??C) - 117 18 95 % - 02/22/122028 122/75 mmHg - - 110 18 95 % - 02/22/124 132/79 mmHg 100.3 ??F (37.9 ??C) Oral 116 18 91 % - Intake/Output Summary (Last 24 hours) at 02/23/12 1635 Last data filed at 02/23/12 1400 Gross per 24 hour Intake 863.5 ml Output 0 ml Net 863.5 ml Cardiac- No murmur, RRR, S1, S2 normal. Lungs- L mid and low lung zones with ronchi and occasional wheeze. Abdo- soft, mildly tender in RL and LLQ. Bowel sounds Ext- no edema Data Review : Results for orders placed during the hospital encounter of 02/22/12 (from the past 24 hour(s)) COMPREHENSIVE METABOLIC PANEL Collection Time 02/22/12 7:24 PM Component Value Range SODIUM 126 (*) 135 - 145 (mmol/L) POTASSIUM 5.3 (*) 3.5 - 4.9 (mmol/L) CHLORIDE 92 (*) 96 - 108 (mmol/L) CO2 18 (*) 22 - 30 (mmol/L) CALCIUM 10.2 8.6 - 10.2 (mg/dL) BUN 18 6 - 20 (mg/dL) CREATININE 1.23 (*) 0.67 - 1.17 (mg/dL) GLUCOSE 123 (*) 65 - 99 (mg/dL) TOTAL PROTEIN 8.5 6.3 - 8.6 (g/dL) ALBUMIN 4.2 3.4 - 4.8 (g/dL) BILIRUBIN TOTAL 0.7 0.2 - 1.0 (mg/dL) ALKALINE PHOSPHATASE 100 40 - 129 (U/L) AST 24 12 - 38 (U/L) ALT 35 0 - 41 (U/L) GFR, >60 >=60 (mL/min/1.7 sq meter) GFR >60 >=60 (mL/min/1.7 sq meter) LIPASE Collection Time 02/22/12 7:24 PM Component Value Range LIPASE 40 13 - 60 (U/L) CBC WITH DIFFERENTIAL Collection Time 02/22/12 7:57 PM Component Value Range WBC 13.7 (*) 4.0 - 9.8 (K/uL) RBC 5.08 4.50 - 5.40 (M/uL) HEMOGLOBIN 14.9 13.6 - 16.5 (g/dL) HEMATOCRIT 43.3 40.0 - 48.0 (%) MCV 85.2 82.0 - 99.0 (fL) MCH 29.3 27.2 - 32.6 (pg) MCHC 34.4 31.5 - 35.5 (%) PLATELETS 343 140 - 350 (K/uL) MPV 9.8 9.3 - 12.4 (fL) RDW 12.9 11.5 - 14.5 (%) RDW-STDEV 40.4 37.1 - 48.7 (fL) NEUTROPHILS 79 (*) 45 - 70 (%) LYMPHOCYTES 10 (*) 16 - 45 (%) MONOCYTES 10 3 - 13 (%) EOSINOPHILS 0 0 - 7 (%) BASOPHILS 0 0 - 2 (%) NEUTROPHIL ABSOLUTE 10.89 (*) 1.90 - 7.00 (K/uL) LYMPHOCYTE ABSOLUTE 1.38 0.70 - 4.50 (K/uL) MONOCYTE ABSOLUTE 1.37 (*) 0.10 - 1.30 (K/uL) EOSINOPHIL ABSOLUTE 0.06 0.00 - 0.70 (K/uL) BASOPHILS ABSOLUTE 0.04 0.00 - 0.20 (K/uL) CT ABDOMEN PELVIS W CONTRAST Collection Time 02/22/12 8:41 PM Narrative: EXAM: CT SCAN ABDOMEN AND PELVIS WITH IV CONTRAST of February 22, 2012 08:52:00 PM HISTORY: Pain. TECHNIQUE: CT evaluation of the abdomen and pelvis was performed following the intravenous administration of contrast. FINDINGS: The liver is of normal size without focal defect or biliary dilatation. The spleen is unremarkable. There is no pancreatic mass or inflammation. Kidneys are unobstructed, and there is no stone or inflammation present. Scans through the pelvis show postop changes of a total colectomy. There is a distal loop of small bowel attached to the rectum. This shows circumferential thickening of the wall suggesting inflammatory bowel disease. There is no sign of perforation, abscess or free fluid. Impression: IMPRESSION: Abnormal distal small bowel loop just above the ileoanal anastomosis. Findings are consistent with recurrent inflammatory bowel disease. XR CHEST PA OR AP Collection Time 02/23/12 1:54 AM Narrative: PORTABLE CHEST 02/23/2012 2:05 A.M. Clinical history: COPD, rule out pneumonia The heart and mediastinum and hilar shadows appear normal. The lungs appear completely clear and well-expanded. The pleural space is clear. Bony structures appear normal. Impression: IMPRESSION: Normal chest. INFLUENZA VIRUS A AND B ANTIGEN Collection Time 02/23/12 3:02 AM Component Value Range FINAL MICRO REPORT Value: Influenza A Antigen: Negative by ICT assay. Influenza B Antigen: Negative by ICT assay. -- Note: A negative does not rule out infection. CLOSTRIDIUM DIFFICILE TOXIN Collection Time 02/23/12 3:42 AM Component Value Range C DIFF TOXIN PCR RESULT Negative Negative C DIFF TOXIN PCR SOURCE Stool URINALYSIS WITH REFLEX CULTURE Collection Time 02/23/12 3:46 AM Component Value Range URINE CULTURE ORDER Culture ordered URINALYSIS Collection Time 02/23/12 3:46 AM Component Value Range COLOR UA Yellow CLARITY UA Clear Clear SPECIFIC GRAVITY UA 1.060 (*) 1.001 - 1.035 PH UA 6.5 5.0 - 8.0 LEUKOCYTE ESTERASE UA Negative Negative NITRITE UA Negative Negative PROTEIN UA 1+ (*) Negative GLUCOSE UA Negative Negative KETONES UA 2+ (*) Negative UROBILINOGEN UA <1 <=1 (mg/dL) BILIRUBIN UA Negative Negative BLOOD UA Trace (*) Negative WBC UA 1 0 - 3 (/HPF) RBC UA 4 (*) 0 - 3 (/HPF) HYALINE CAST 27 (*) 0 - 2 (/LPF) CBC WITH DIFFERENTIAL Collection Time 02/23/12 7:10 AM Component Value Range WBC 12.1 (*) 4.0 - 9.8 (K/uL) RBC 4.98 4.50 - 5.40 (M/uL) HEMOGLOBIN 14.6 13.6 - 16.5 (g/dL) HEMATOCRIT 42.8 40.0 - 48.0 (%) MCV 85.9 82.0 - 99.0 (fL) MCH 29.3 27.2 - 32.6 (pg) MCHC 34.1 31.5 - 35.5 (%) PLATELETS 370 (*) 140 - 350 (K/uL) MPV 9.8 9.3 - 12.4 (fL) RDW 13.3 11.5 - 14.5 (%) RDW-STDEV 41.5 37.1 - 48.7 (fL) NEUTROPHILS, SEG 34 (*) 45 - 70 (%) BANDS 33 (*) 0 - 5 (%) LYMPHOCYTES 13 (*) 16 - 45 (%) MONOCYTES 14 (*) 3 - 13 (%) EOSINOPHILS 2 0 - 7 (%) BASOPHILS 0 0 - 2 (%) METAMYELOCYTE 4 (*) <=0 (%) PLATELET EST. Consistent w/ count Normal NEUTROPHIL ABSOLUTE 8.11 (*) 1.90 - 7.00 (K/uL) LYMPHOCYTE ABSOLUTE 1.57 0.70 - 4.50 (K/uL) MONOCYTE ABSOLUTE 1.69 (*) 0.10 - 1.30 (K/uL) EOSINOPHIL ABSOLUTE 0.24 0.00 - 0.70 (K/uL) BASOPHILS ABSOLUTE 0.00 0.00 - 0.20 (K/uL) RBC MORPHOLOGY Normal Normal BASIC METABOLIC PANEL Collection Time 02/23/12 7:10 AM Component Value Range SODIUM 126 (*) 135 - 145 (mmol/L) POTASSIUM 4.3 3.5 - 4.9 (mmol/L) CHLORIDE 95 (*) 96 - 108 (mmol/L) CO2 18 (*) 22 - 30 (mmol/L) CALCIUM 9.1 8.6 - 10.2 (mg/dL) BUN 17 6 - 20 (mg/dL) CREATININE 1.06 0.67 - 1.17 (mg/dL) GLUCOSE 104 (*) 65 - 99 (mg/dL) GFR, >60 >=60 (mL/min/1.7 sq meter) GFR >60 >=60 (mL/min/1.7 sq meter) LACTIC ACID Collection Time 02/23/12 7:10 AM Component Value Range LACTIC ACID 0.9 0.5 - 2.2 (mmol/L) C-REACTIVE PROTEIN Collection Time 02/23/12 7:50 AM Component Value Range CRP 21.7 (*) 0.0 - 0.8 (mg/dL) CORTISOL LEVEL Collection Time 02/23/12 8:28 AM Component Value Range CORTISOL LEVEL 43.0 Pertinent Studies: C diff negative, Stool culture negative. Imaging: CT abdo 02/22/12: IMPRESSION: Abnormal distal small bowel loop just above the ileoanal anastomosis. Findings are consistent with recurrent inflammatory bowel Disease. Colonoscopy 02/15/12: Pouchitis. Ileal pouch anal anastomosis stricture. ASSESSMENT 1. Abdominal pain/fever - ? IBD vs infectious enteritis vs pouchitis. Refractory to outpatient treatment. Responding to IV antibiotics at this time. Certainly this could still represent just a severecase of pouchitis. Interestingly though he has diffuse inflammation proximal to the actual pouch into the ileum which is not common with simple pouchitis. This is suspicious for new inflammatory bowel. In this case Crohn's must be considered given that UC is unlikely in the setting of total colectomy. 2. Sepsis -w/u per primary team. PLAN 1. Repeat Crp, CBC in am. 2. Obtain IBD markers. 3. Review old pathology for indicators of IBD 4. Continue current antibiotics and Asacol. Would not initiate steroids at this time. 5. Further recommendations per clinical course. The above has been discussed with Dr. Ryan. Tiburcio Toledo MD Internal Medicine R2 ([facility]) [phone] * Willian Sotelo MD - 02/23/2012 2:50 PM CDT [place], [place] [address] Consultation CSN: [id number] DATE OF SERVICE: REASON FOR CONSULTATION Abdominal pain and diarrhea with history of inflammatory bowel disease status post restorative proctocolectomy in 2001. HISTORY The patient is a 41-year-old man, who underwent restorative proctocolectomy for presumed ulcerativecolitis in the spring of 2001. A temporary loop ileostomy was subsequently closed in June of that year. He was followed in my office for some time with periodic endoscopy and dilatation of an anastomotic stricture. He has had to undergo periodic balloon dilatation of the stricture. 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 Most recentlyhe has been taking Asacol 400 mg twice a day for suppression and this is on a chronic basis. The patient saw me on an office basis about 2 weeks ago and was beginning to develop symptoms consistent with pouchitis. He had not been in for dilatation of his anastomotic stricture in some time and I could not do an office examination because of the stricture. I encouraged him to have a dilatation and endoscopic procedure at the earliest possible opportunity, but he wished to postpone this because of a planned fishing trip. He was started on Flagyl 500 mg 3 times a day. He went on his fishing trip and stated that he was starting to feel a little better and presented for endoscopic evaluation on February 15. Balloon dilatation of the anastomotic stricture was carried out and endoscopy of the pelvic ileal pouch showed active moderate inflammation both by visual assessment and pathologic review of biopsies at that time. I would mention that the inflammatory process appeared to extend proximally into the terminal ileum above the pouch for some distance and I could never really reach an area where the mucosa of the terminal ileum looked normal. I had the patient increase his Asacol to 800 mg 3 times a day. I instructed him to continue taking the Flagyl, but once he restarted the Asacol he stopped taking the Flagyl. (The patient hates to take Flagyl because of metallic taste which it gives him). He tells me that following the procedure on February 15, he felt fine for about 24 hours, and had goneto work. The afternoon the following day, however, he began to develop what he described as flu-like symptoms with chills, subjective fever, and total body aches, musculoskeletal in nature. His diarrhea had not increased at that point, but he went to [facility] ER where he was told that he was dehydrated and was treated with intravenous fluids and symptomatic therapy for what was suspected to be flu. Over the next several days, he developed worsening diarrhea, crampy abdominal pain, and musculoskeletal aches and pains not limited to the abdomen. He continued to run a low-grade fever. I would stressed again that he was taking Asacol, but was not taking Flagyl. He came to the emergency room here on the evening of February 21. A CT scan of the abdomen and pelvis showed thickening of the pouch and the proximal small bowel, but no evidence of perforation or leak. There is minimal inflammatory change in the fat around the pouch or in the pelvis. (I have personally reviewed the CT scan with the radiologist). He was subsequently admitted, started on intravenous Levaquin and intravenous Flagyl. Stool cultures were obtained. A C. diff toxin is negative. His initial white blood count on the evening of February 21 was 13,700 with 79 segs. His white blood count this morning is 12,000, but significantly there is a marked left shift with 32 segs, 33 bands, and 4 metamyelocytes. His lactic acid is 0.9, but CRP is 21.7. At the time of admission, his electrolytes were abnormal with a serum sodium of 126, potassium of 5.3, a BUN of 18, and a creatinine of 1.23. This has been partially corrected, although he continues to be hyponatremic. His potassium has dropped down to 4.3 and his creatinine to 1.06. Subjectively, he is feeling better although still having some crampy abdominal pain. PAST MEDICAL HISTORY Hospitalizations, operations, and injuries as above only. ALLERGIES None stated. CURRENT MEDICATIONS Prior to coming to the hospital Asacol 800 mg 3 times a day. REVIEW OF SYSTEMS Noncontributory except as above. PHYSICAL EXAMINATION GENERAL: The patient is a tall pleasant, fully alert and oriented gentleman, who does not appear juan acutely ill or toxic. He is lying quietly in bed. He is very conversant. HEAD, EARS, EYES, NOSE, AND THROAT: Grossly unremarkable. LUNGS: Clear. HEART: Rhythm is sinus. Tones are normal. ABDOMEN: Softly distended. There is a long ragged midline incision from midepigastrium to symphysisand a right lower quadrant transverse incision, both well healed without evidence of hernia. The abdomen is generally soft. There is [id number] tenderness to deep palpation in both lower quadrants just above the inguinal ligaments with no evidence of guard, rigidity, or rebound. GENITALIA: Normal male. RECTAL: Examination is not done at this time, but the patient is not complaining of any rectal pain. EXTREMITIES: No significant edema. Pulses are full throughout. NEUROLOGIC: Grossly intact. DIAGNOSTIC IMPRESSION Abdominal pain and diarrhea, probably secondary to pouchitis. COMMENT AND RECOMMENDATIONS I have discussed the situation with Dr. Yin and his treatment team. For the time being, I think that he should be treated with intravenous hydration and the Levaquin and Flagyl as ordered intravenously. We are going to ask Dr. Katie Ryan to see him for another opinion from the GI standpoint. I have told him that he may need to stay on some sort of suppressive antibiotic regimen ongoing andfor the indefinite future. This may have to involve Flagyl (which he hates to take). For the time being, I see no acute surgical indications and hopefully he will respond to treatment without having to resort to this option. PLR:MEDQ DID: [id number] Dictated by: Willian Sotelo MD documented in this encounter OR Notes * OR Anesthesia - Stl Scanning, Him - 03/07/2012 1:59 PM CDT * OR Anesthesia - Quynh Winter CRNA - 02/29/2012 10:38 AM CDT 02/29/2012 10:39 AM Mukul Huber No apparent Anesthesia related complications Quynh Winter CRNA * Operative Report - Katie Ryan MD - 02/28/2012 11:16 AM CDT ENTEROSCOPY DICTATED: Mukul Huber 02/28/2012 INDICATION:DIARRHEA FINDINGS:SEVERE INFLAMMATION IN ENTIRE POUCH AND 40 + CM PROXIMAL THROUGH SMALL INTESTINE, BXED. Katie Ryan MD * Operative Report - Katie Ryna MD - 02/28/2012 11:16 AM CDT EGD DICTATED: Mukul Huber 02/28/2012 INDICATION:diarrhea FINDINGS:mild gastritis; bx small bowel/stomach. Katie Ryan MD * Zarina-OP - Dayana Miranda RN - 02/28/2012 10:14 AM CDT Flushed red port with 20ml of normal saline when disconnected iv fluids of lactated ringers * Anesthesia Post Evaluation - Lora Bishop MD - 02/28/2012 9:54 AM CDT Phase II Postanesthesia Evaluation Including [facility] Modified Rebekah Score Patient seen and evaluated: RESPIRATORY FUNCTION: Respiration: able to breath and cough freely (02/28/12946) [2=able to breathe and cough freely, 1=dyspnea, limited breathing or tachypnea, 0=apnea or mechanicventilator] O2 Saturation: able to maintain O2 saturation greater than 92% on room air (02/28/12946) [2=able to maintain O2 saturation greater than 92% on room air, 1=needs O2 inhalation to maintain O2 saturation greater than 90%, 0=O2 saturation less than 90% even with O2 supplement] Resp: 18 (02/28/12950)SpO2: 98 % (02/28/12950) CARDIOVASCULAR FUNCTION: Heart Rate (Monitored): 101 bpm (02/28/129) BP: 79/54 mmHg (02/28/12950) Circulation: BP within 20% of preanesthetic level (02/28/12946) [2=BP within 20% of preanesthetic level, 1=BP within 20-49% of preanesthetic level, 0=BP within 50%of preanesthetic level] MENTAL STATUS, NEURO, ACTIVITY: Consciousness: fully awake (02/28/12946) [2=fully awake, 1=arousable on calling, 0=not responding] Activity: able to move 4 extremities voluntarily or on command (02/28/12946) [2=able to move 4 extremities voluntarily or on command, 1=able to move 2 extremities voluntarily or on command, 0=unable to move extremities voluntarily or on command] Ambulation: able to stand up and walk straight, on ordered bedrest, or performing at patient's prior level of function (02/28/12946) [2=able to stand up and walk straight, on ordered bedrest, or performing at patient's prior level of function, 1=vertigo when erect, 0=dizziness when supine] TEMPERATURE: Temp: 96.8 ??F (36 ??C) (05/08/12 0942) PAIN: Pain Rating: Rest: 3 (02/28/12 0307) Presence of Pain: denies pain/discomfort (02/28/1245) Pain: pain free (02/28/12946) [2=pain free, 1=pain handled by oral medication, 0=pain requiring parenteral medication] NAUSEA AND VOMITING: Signs/Symptoms: (DENIES) (02/27/121954) Fasting/Feeding: able to drink fluids, ice chips or NPO (02/28/12946) [2=able to drink fluids, ice chips or NPO, 1=nauseated, 0=nausea and vomiting] POSTOPERATIVE HYDRATION: Intake/Output Summary (Last 24 hours) at 02/28/12953 Last data filed at 02/28/12899 Gross per 24 hour Intake 4094 ml Output 2150 ml Net 1944 ml Urine Output: unable to void but comfortable (02/28/12946) [2=has voided, adequate urine output per device, or not applicable, 1=unable to void but comfortable, 0=unable to void and uncomfortable] WOUND: Dressing: dry and clean or not applicable (02/28/12946) [2=dry and clean or not aplicable, 1=wet, marked and not increasing, 0=growing area of wetness] [facility] Modified Rebekah Score: Score: 19 (02/28/12946) COMMENTS: No apparent Anesthesia related complications Lora Bishop MD 02/28/2012 9:54 AM * Anesthesia Post Evaluation - Lora Bishop MD - 02/28/2012 8:12 AM CDT GI Lab Pre-Anesthesia Evaluation - Long Form 02/28/2012 8:12 AM Name: Mukul Huber Age: 41 y.o. Sex: male CSN: [id number] Procedure: Procedure(s): COLONOSCOPY ESOPHAGOGASTRODUODENOSCOPY Surgeons/Assistants: Surgeon(s) and Role: * Katie Ryan MD - Primary No Known Allergies Prescriptions prior to admission Medication Sig Dispense Refill ??? HYDROcodone-acetaminophen (NORCO) 5-325 mg Oral tablet Take 1 Tab by mouth every 4 hours as needed. ??? mesalamine (ASACOL) 400 mg Oral TbEC Take 400 mg by mouth 2 times daily. ??? metroNIDAZOLE (FLAGYL) 500 mg Oral tablet Take 500 mg by mouth 3 times daily. Current Facility-Administered Medications Medication Dose Route Frequency Provider Last Rate Last Dose ??? lactated ringers solution IV Pre-Proc Continuous Katie Ryan MD 125 mL/hr at 02/28/12 0802 ??? dextrose 50% (D50) syringe 25 Gram 25 Gram IV See Admin Notes Pito Andrade MD ??? glucagon human recombinant (GLUCAGEN) 1 mg injection 1 mg 1 mg IM See Admin Notes Pito Andrade MD ??? insulin aspart (NOVOLOG) 100 unit/mL variable dose subCUT q 6 hour Pito Andrade MD 5 Units at 02/28/12 0559 ??? ADULT TPN - CENTRAL IV Continuous Pito Andrade MD 86 mL/hr at 02/27/12 1945 ??? polyethylene glycol (MIRALAX) packet 34 Gram 34 Gram Oral q 30 min Katie Ryan MD 34 Gram at 02/27/125 ??? DISCONTD: ADULT TPN - CENTRAL IV Continuous Pito Andrade MD ??? DISCONTD: insulin aspart (NOVOLOG) 100 unit/mL variable dose subCUT TID Meals Pito Andrade MD 8 Units at 02/27/12 1347 ??? DISCONTD: insulin aspart (NOVOLOG) 100 unit/mL variable dose subCUT q 6 hour Pito Andrade MD ??? DISCONTD: ADULT TPN - CENTRAL IV Continuous Pito Andrade MD ??? diazepam (VALIUM) tablet 5 mg 5 mg Oral QID Katie Ryan MD 5 mg at 02/27/12 2144 ??? DISCONTD: ADULT TPN - CENTRAL IV Continuous Sierra Yin MD 85.06 mL/hr at 02/26/122050 ??? HYDROcodone-acetaminophen (NORCO) 10-325 mg per tablet 1 Tab 1 Tab Oral q 4 hour PRN Pito Andrade MD 1 Tab at 02/28/12 0307 ??? levofloxacin (LEVAQUIN) 500 mg/100 mL in D5W IVPB 500 mg 500 mg IV q 24 h Pito Andrade MD 500 mg at 02/28/12 0603 ??? sodium chloride 0.9 % flush injection 3 mL 3 mL IV q 8 hour Sierra Yin MD 3 mL at 02/28/12 0601 ??? metoclopramide (REGLAN) tablet 10 mg 10 mg Oral q 4 hour PRN Pito Andrade MD 10 mg at 02/24/12 0827 ??? methylPREDNISolone sodium succinate (SOLU-MEDROL) injection 20 mg 20 mg IV q 8 hour Trevor Toledo MD 20 mg at 02/28/12 0559 ??? saccharomyces boulardii (FLORASTOR) capsule 250 mg 250 mg Oral BID Trevor Toledo MD 250 mg at02/27/122002 ??? sodium chloride 0.9 % infusion IV See Admin Notes Sierra Yin MD ??? dextrose 5% infusion IV See Admin Notes Sierra Yin MD ??? sodium chloride 0.9 % flush injection 10 mL 10 mL IV Daily EARLY Sierra Yin MD 10 mL at 02/28/12 0601 ??? heparin, porcine (pf) 100 unit/mL injection 300 Units 300 Units IV Daily EARLY Sierra Yin MD 300 Units at 02/28/12 0606 ??? sodium chloride 0.9 % flush injection 10 mL 10 mL IV See Admin Notes Sierra Yin MD 10 mLat 02/27/122145 ??? heparin, porcine (pf) 100 unit/mL injection 300 Units 300 Units IV See Admin Notes Sierra Yin MD 300 Units at 02/27/122145 ??? mesalamine (ASACOL) tablet 800 mg 800 mg Oral TID Bo Butler DO 800 mg at 02/27/12 1721 ??? naloxone (NARCAN) 0.4 mg/mL injection 0.1 mg 0.1 mg IV See Admin Notes Bo Butler, DO ??? ondansetron (ZOFRAN ODT) tablet 4 mg 4 mg Sublingual q 8 hour PRN Bo Butler, DO 4 mg at 02/24/12 0439 ??? acetaminophen (TYLENOL) tablet 650 mg 650 mg Oral q 4 hour PRN Bo Butler, 650 mg at 02/24/12 0826 ??? enoxaparin (LOVENOX) injection 40 mg 40 mg subCUT q 24 hour (daily) Bo Butler, DO ??? metroNIDAZOLE (FLAGYL) IVPB 500 mg 500 mg IV q 8 hour Bo Butler, 500 mg at 02/28/12 0431 ??? fluticasone (FLOVENT HFA) 110 mcg/actuation inhaler 2 Puff 2 Puff Inhalation q 12 hour (BID) Bo Butler DO 2 Puff at 02/27/122003 ??? ipratropium-albuterol (DUONEB) 0.5 mg-3 mg(2.5 mg base)/3 mL inhalation solution 3 mL 3 mL Inhalation Resp q 6 h PRN Pito Andrade MD ??? pantoprazole (PROTONIX) tablet 40 mg 40 mg Oral AC Daily Breakfast Pito Andrade MD 40 mg at 02/27/12 0550 Patient Active Problem List Diagnoses Date Noted ??? Malnutrition 02/27/2012 ??? Protein calorie malnutrition 02/24/2012 ??? Ulcerative colitis 02/23/2012 ??? Pouchitis 02/23/2012 ??? Acute bronchitis 02/23/2012 ??? SIRS (systemic inflammatory response syndrome) 02/23/2012 ??? Metabolic acidosis 02/23/2012 ??? Sepsis 02/23/2012 ??? JORGE (acute kidney injury) 02/23/2012 ??? Hyponatremia 02/22/2012 ??? Abdominal pain 02/22/2012 Past Medical History Diagnosis Date ??? Ulcerative colitis ??? Unspecified adverse effect of anesthesia violent after 1st surgery ??? Ulcerative colitis Past Surgical History Procedure Date ??? Hx colectomy 2001 ??? Pr colonoscopy,diagnostic 12/08/2009 COLONOSCOPY performed by WILLIAN SOTELO at [facility] ??? Pr sigmoidoscopy,diagnostic 02/16/2012 SIGMOIDOSCOPY FLEXIBLE performed by Willian Sotelo MD at [facility] ??? Pr endoscopy of bowel pouch 02/16/2012 POUCHOSCOPY performed by Willian Sotelo MD at [facility] History Substance Use Topics ??? Smoking status: Former Smoker -- 0.5 packs/day for 10 years Types: Cigarettes ??? Smokeless tobacco: Not on file Comment: off & on ??? Alcohol Use: No Family History Problem Relation Age of Onset ??? Heart Disease Father ??? Hypertension Mother ??? Healthy Sister ??? Healthy Brother Previous Anesthesia Problems/Concerns: No anesthesia problems/complications Review of Systems Cardiovascular: negative Respiratory: quit tobacco 2 months ago Gastroenterology: negative, colon resection years ago PHYSICAL EXAM BP 102/63 Pulse 90 Temp(Src) 98.2 ??F (36.8 ??C) (Temporal) Resp 16 Ht 5' 9 (1.753 m) Wt166 lb (75.297 kg) BMI 24.51 kg/m2 SpO2 95% Weight: Weight: 166 lb (75.297 kg) (02/22/12 2341) Height: Ht Readings from Last 1 Encounters: 02/22/12 5' 9 (1.753 m) BMI: Body mass index is 24.51 kg/(m^2). Airway: normal range of motion: Airway Class: II (soft palate, uvula, fauces visible); None Lungs: clear to auscultation bilaterally, normal respiratory effort Heart: regular rate and rhythm, S1, S2 normal, no murmur, click, rub or gallop Neuro: alert, oriented x 3, no defects noted in general exam. Vascular Access: None LABS Lab Results Component Value Date WBC 21.2* 02/28/2012 HEMOGLOBIN 12.9* 02/28/2012 HEMATOCRIT 37.8* 02/28/2012 PLATELETS 347 02/28/2012 MCV 86.9 02/28/2012 Lab Results Component Value Date SODIUM 133* 02/28/2012 POTASSIUM 4.4 02/28/2012 CHLORIDE 95* 02/28/2012 CO2 28 02/28/2012 CALCIUM 8.8 02/28/2012 BUN 18 02/28/2012 CREATININE 0.70 02/28/2012 GLUCOSE 160* 02/28/2012 No results found for this basename: INR, PT, PROTIMEPOC No results found for this basename: HCGURPOC, HCGQUALUR, HCGQUAL, HCGQUANT, HCGINTACT Lab Results Component Value Date POC GLUCOSE 189* 02/28/2012 EKG: EKG not indicated today Other Studies/Considerations: None Postprocedure pain management discussed yes Smoking/Tobacco Counseling: None Recommendations: None ASA Physical Status: ASA 2 - Patient with mild systemic disease with no functional limitations I have seen and examined this patient and confirm that all data is current and accurate. Yes Choice of Anesthesia/Anesthesia Plan: Proceed, General and Routine Monitoring I have discussed the anesthetic options and the risks/benefits with the patient/family. Questions have been solicited and answered. Yes Lora Bishop MD documented in this encounter ED Notes * Tess Amor RN - 02/22/2012 10:02 PM CDT Pt states pain is on its way to getting better . resp even and unlabored. NAD. Pt given drink per md approval. * Tess Amor RN - 02/22/2012 9:54 PM CDT Pt requests additional pain meds, made aware. Morphine given as ordered. * Whitley Gross RN - 02/22/2012 8:46 PM CDT Report to Tess * Whitley Gross RN - 02/22/2012 8:28 PM CDT Pt reports pain 11/01, updated on plan of care. * Whitley Gross RN - 02/22/2012 8:02 PM CDT 2nd dose Morphine given. Pt and updated on delay * Whitley Gross RN - 02/22/2012 7:58 PM CDT Call from lab re: clotted CBC. Lab to come MD Sadie valerio updated. Verbal order for pain medication received * Whitley Gross RN - 02/22/2012 7:47 PM CDT Pt up to restroom, reports mucus like diarrhea again. States nausea has improved and pain is now 4/10. Pt is PWD, respirations even and unlabored. RN continues to monitor * Whitley Gross RN - 02/22/2012 7:30 PM CDT IV established, blood obtained and sent to lab. Fluid bolus infusing, Zofran and Morphine given. Patient/family has been informed about benefits and any potential clinically significant side effects or other concerns regarding the administration of the drug they have just been given. Pt and informed of plan of care, aware of delay- need Creatinine results prior to CT scan. Understanding verbalized, pt denies further needs. Resting in NAD with call light in reach * Reji Noel MD - 02/22/2012 7:21 PM CDT HISTORY OF PRESENT ILLNESS Mukul Huber, a 41 y.o. male presents to the ED with a Chief Complaint of Abdominal Pain HPI Comments: The patient started having diarrhea 2 weeks ago. He saw Dr. Sotelo who did his colectomy for ulcerative colitis 10 years ago. He had a colonoscopy done which showed some inflammation. The patient was started on Azacol. The patient began developing abdominal pain as well as subjectivefever and chills and generalized weakness 5 or 6 days ago. The patient was seen at an outside hospital and obstructive series may have showed an obstruction. He was sent here by his primary care physician today. Patient is a 41 y.o. male presenting with medical evaluation. The history is provided by the patient. General Adult This is a new problem. The current episode started more than 1 week ago. The problem occurs constantly. The problem has been gradually worsening. Associated symptoms include abdominal pain. Pertinentnegatives include no chest pain, no headaches and no shortness of breath. The symptoms are aggravated by nothing. The symptoms are relieved by nothing. He has tried nothing for the symptoms. REVIEW OF SYSTEMS Review of Systems Constitutional: Positive for fever (subjective) and fatigue. HENT: Negative for ear pain, neck pain and neck stiffness. Respiratory: Negative for cough, chest tightness and shortness of breath. Cardiovascular: Negative for chest pain and leg swelling. Gastrointestinal: Positive for nausea, vomiting, abdominal pain and diarrhea. Genitourinary: Negative for dysuria. Musculoskeletal: Negative for back pain. Skin: Negative for rash. Neurological: Negative for headaches. All other systems reviewed and are negative. PAST MEDICAL HISTORY REVIEWED Past Medical History Diagnosis Date ??? Ulcerative colitis ??? Unspecified adverse effect of anesthesia violent after 1st surgery ??? Ulcerative colitis Past Surgical History Procedure Date ??? Hx colectomy 2001 ??? Pr colonoscopy,diagnostic 12/08/2009 COLONOSCOPY performed by WILLIAN SOTELO at [facility] ??? Pr sigmoidoscopy,diagnostic 02/16/2012 SIGMOIDOSCOPY FLEXIBLE performed by Willian Sotelo MD at [facility] ??? Pr endoscopy of bowel pouch 02/16/2012 POUCHOSCOPY performed by Willian Sotelo MD at [facility] Family History Problem Relation Age of Onset ??? Heart Disease Father ??? Hypertension Mother ??? Healthy Sister ??? Healthy Brother Social History Other Topics Concern ??? Not on file History Social History Main Topics ??? Smoking status: Former Smoker -- 0.5 packs/day for 10 years Types: Cigarettes ??? Smokeless tobacco: Not on file Comment: off & on ??? Alcohol Use: No ??? Drug Use: No ??? Sexually Active: Patient Active Problem List Diagnoses Date Noted ??? Hyponatremia 02/22/2012 ??? Abdominal pain 02/22/2012 ALLERGIES Review of patient's allergies indicates no known allergies. HOME MEDICATIONS Patient's Home Medications New Prescriptions for this Encounter Current Home Medications HYDROCODONE-ACETAMINOPHEN (NORCO) 5-325 MG ORAL TABLET Take 1 Tab by mouth every 4 hours as needed. MESALAMINE (ASACOL) 400 MG ORAL TBEC Take 400 mg by mouth 2 times daily. METRONIDAZOLE (FLAGYL) 500 MG ORAL TABLET Take 500 mg by mouth 3 times daily. Medications Modified during this Encounter Medications Discontinued during this Encounter PHYSICAL EXAM Initial Vitals BP 02/22/12 1623 140/95 mmHg Pulse 02/22/12 1623 137 Resp 02/22/12 1623 20 Temp 02/22/12 1623 98.5 ??F (36.9 ??C) Temp src 02/22/12 1623 Oral SpO2 02/22/12 1623 94 % Physical Exam Nursing note and vitals reviewed. Constitutional: He is oriented to person, place, and time. No distress. Appears well in no acute distress HENT: Nose: Nose normal. Mouth/Throat: No oropharyngeal exudate. Eyes: EOM are normal. Pupils are equal, round, and reactive to light. Neck: Normal range of motion. Neck supple. Cardiovascular: Normal heart sounds and intact distal pulses. Pulmonary/Chest: Breath sounds normal. No respiratory distress. Abdominal: Soft. He exhibits no distension. Tenderness (mild diffuse) is present. He has no reboundand no guarding. Decreased bowel sounds Musculoskeletal: Normal range of motion. He exhibits no edema and no tenderness. Neurological: He is alert and oriented to person, place, and time. Skin: Skin is warm and dry. He is not diaphoretic. Psychiatric: He has a normal mood and affect. His behavior is normal. Judgment and thought content normal. DIAGNOSTICS LAB: Results for orders placed during the hospital encounter of 02/22/12 (from the past 24 hour(s)) COMPREHENSIVE METABOLIC PANEL Component Value Range SODIUM 126 (*) 135 - 145 (mmol/L) POTASSIUM 5.3 (*) 3.5 - 4.9 (mmol/L) CHLORIDE 92 (*) 96 - 108 (mmol/L) CO2 18 (*) 22 - 30 (mmol/L) CALCIUM 10.2 8.6 - 10.2 (mg/dL) BUN 18 6 - 20 (mg/dL) CREATININE 1.23 (*) 0.67 - 1.17 (mg/dL) GLUCOSE 123 (*) 65 - 99 (mg/dL) TOTAL PROTEIN 8.5 6.3 - 8.6 (g/dL) ALBUMIN 4.2 3.4 - 4.8 (g/dL) BILIRUBIN TOTAL 0.7 0.2 - 1.0 (mg/dL) ALKALINE PHOSPHATASE 100 40 - 129 (U/L) AST 24 12 - 38 (U/L) ALT 35 0 - 41 (U/L) GFR, >60 >=60 (mL/min/1.7 sq meter) GFR >60 >=60 (mL/min/1.7 sq meter) LIPASE Component Value Range LIPASE 40 13 - 60 (U/L) CBC WITH DIFFERENTIAL Component Value Range WBC 13.7 (*) 4.0 - 9.8 (K/uL) RBC 5.08 4.50 - 5.40 (M/uL) HEMOGLOBIN 14.9 13.6 - 16.5 (g/dL) HEMATOCRIT 43.3 40.0 - 48.0 (%) MCV 85.2 82.0 - 99.0 (fL) MCH 29.3 27.2 - 32.6 (pg) MCHC 34.4 31.5 - 35.5 (%) PLATELETS 343 140 - 350 (K/uL) MPV 9.8 9.3 - 12.4 (fL) RDW 12.9 11.5 - 14.5 (%) RDW-STDEV 40.4 37.1 - 48.7 (fL) NEUTROPHILS 79 (*) 45 - 70 (%) LYMPHOCYTES 10 (*) 16 - 45 (%) MONOCYTES 10 3 - 13 (%) EOSINOPHILS 0 0 - 7 (%) BASOPHILS 0 0 - 2 (%) NEUTROPHIL ABSOLUTE 10.89 (*) 1.90 - 7.00 (K/uL) LYMPHOCYTE ABSOLUTE 1.38 0.70 - 4.50 (K/uL) MONOCYTE ABSOLUTE 1.37 (*) 0.10 - 1.30 (K/uL) EOSINOPHIL ABSOLUTE 0.06 0.00 - 0.70 (K/uL) BASOPHILS ABSOLUTE 0.04 0.00 - 0.20 (K/uL) RADIOLOGY: CT ABDOMEN PELVIS W CONTRAST Radiologist Impression: IMPRESSION: Abnormal distal small bowel loop just above the ileoanal anastomosis. Findings are consistent with recurrent inflammatory bowel disease. EKG: PROCEDURES Procedures REEVALUATION MEDICAL DECISION MAKING AND PLAN OF CARE Last vitals BP 135/74 Pulse 117 Temp(Src) 100.6 ??F (38.1 ??C) (Oral) Resp 18 Ht 5' 9 (1.753 m) Wt 77.111 kg BMI 25.10 kg/m2 SpO2 95% MDM Coding Reviewed: nursing note, vitals and previous chart Interpretation: labs and CT scan Consults: admitting physician The patient was stable in the ER. The patient was admitted for pain control CLINICAL IMPRESSION Encounter Diagnoses Code Name Primary? 789.00 Abdominal pain ??? 276.1 Hyponatremia CASE DISCUSSED [facility] PATIENT COUNSELING Diagnostics reviewed and questions answered. Diagnosis, treatment options and plan of care discussed with understanding verbalized. DISPOSITION, EDUCATION AND MEDICATION RECONCILIATION Medications reconciled. See after visit summary for patient education on discharged patients. * Whitley Gross RN - 02/22/2012 7:12 PM CDT Pt presents to ER with c/o diffuse abdominal pain, dehydration, and nausea. Pt reports symptoms started initially 2-3 weeks ago, has hx of UC. Reports he had a colonoscopy last and then developed diarrhea the next day. Pt reports everything went through me. It wasn't even stool, it was mucus. Pt was seen at [facility] 2 days ago and tx for dehydration. Reports nausea and diarrhea villareal s persisted, denies vomiting. Pt was seen by PCP and had XR done which showed possible bowel obstruction. Pt nauseated at this time, reports bile like emesis 30 minutes ago. States last normal BM wasyeerday. Reports mucus like diarrhea every 30 minutes today, also reports occasional muscle cramps. Abdomen is flat, slightly tender. No distention noted. Bowel sounds present throughout. Skin is warm, slightly diaphoretic. Pt reports pain 8/10 documented in this encounter Miscellaneous Notes * Scanned Form - Stl Scanning, [facility] - 03/07/2012 1:59 PM CDT Electronically signed by Interface, [facility] Stl Cyber Security Engineer Incoming at 03/07/2012 1:59 PM CDT * Scanned Form - Stl Scanning, [facility] - 03/07/2012 1:59 PM CDT Electronically signed by Interface, [facility] Stl Cyber Security Engineer Incoming at 03/07/2012 1:59 PM CDT * Patient Instructions - Stl Scanning, [facility] - 03/07/2012 1:59 PM CDT Electronically signed by Interface, [facility] St[facility] Cyber Security Engineer Incoming at 03/07/2012 1:59 PM CDT * Scanned Form - Stl Scanning, [facility] - 03/07/2012 1:59 PM CDT Electronically signed by Interface 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 Outcome: Progressing Pt given discharge instructions and scripts. All questions answered. No new concerns at this time. * Care Plan - Patria Vasquez RN - 03/02/2012 6:30 PM CDT Problem: Infection, Risk/Actual (Adult) Goal: Infection, Risk/Actual: Infection Prevention/Resolution/Control Patient will demonstrate the desired outcomes. Outcome: Progressing PICC removed per MD order. Catheter measured, intact, no complications. * Care Plan - Patria Vasquez RN - 03/02/2012 4:00 PM CDT Problem: Infection, Risk/Actual (Adult) Goal: Infection, Risk/Actual: Infection Prevention/Resolution/Control Patient will demonstrate the desired outcomes. Outcome: Progressing PICC line due to be DC tomorrow morning before pt SABINO, ok with not changing dressing today. Problem: Pain, Acute (Adult) Goal: Acute Pain: Acceptable Pain Control/Comfort Level Patient will demonstrate the desired outcomes. Outcome: Progressing Pt has c/o pain in rectum after BM. No visible external hemoroids, valium administered per pt's request early. Verbalized understanding that he can only receive medication four times daily. Problem: Pressure Ulcer Risk (Using Terry Scale) (Adult) Goal: Pressure Ulcer Risk (using Terry Scale): Skin Integrity Patient will demonstrate the desired outcomes. Outcome: Progressing Pt takes care of ulcer on buttock per self. Applying bety and stoma powder. * Care Plan - Naomie Blum RD - 03/02/2012 10:25 AM CDT Problem: General Plan of Care (Adult, Obstetrics) Intervention: Promote Oral Nutrition Nutrition f/u: A: Wt:166# Br: 20 Ostomy: 200ml Skin: Lt fissure Labs:bs 160, 256 Diet: bland PO: 70-100% Pt said he started bland diet for lunch yesterday and tolerated lunch, dinner and breakfast. He feels he is almost to normal eating habits. He feels he is able to get adequate nutrition po at this point. Talked about supplements if need and went over the low fiber diet/ gave handout. PICC is d/t come out today.Don't think pt will need TPN at d/c d/t able to tolerate po. Pt with elevated bs d/t steroids and tpn. Correct with insulin D: none I: Nutrition Intervention: edu/handout, encourage protein M/E: 1.will cont to monitor po/tpn, wt, labs, skins 2. F/u q4days/PRN * Care Plan - Rachell Mcpherson RN - 03/02/2012 2:18 AM CDT Problem: Pain, Acute (Adult) Goal: Acute Pain: Acceptable Pain Control/Comfort Level Patient will demonstrate the desired outcomes. Outcome: Progressing Pain controlled with norco this shift. Tolerated bland diet for dinner. TPN infusing. IV/PO antibiotics continued. * Care Plan - Ada Cullen RN - 03/01/2012 2:49 PM CDT Problem: General Plan of Care (Adult, Obstetrics) Goal: Plan of Care Review (Adult, Obstetrics) The patient and/or their textiles sales representative will communicate an understanding of their plan of care. Outcome: Progressing Pt has been pain free this shift, denies nausea as well. Upgraded from FL to bland diet at lunch. Has refused Valium X2 stating that he was not needed it this shift. Tolerating IV antibiotics and TPNwithout difficulty. Wound care came and assessed fissure to L buttocks and recommended ostomy powder and calmoseptine. * Care Plan - Inez Ho RN - 03/01/2012 10:50 AM CDT Problem: Pressure Ulcer Risk (Using Terry Scale) (Adult) Goal: Pressure Ulcer Risk (using Terry Scale): Skin Integrity Patient will demonstrate the desired outcomes. See wound care nurse consult note. * Care Plan - Rachell Mcpherson RN - 03/01/2012 2:36 AM CDT Problem: Infection, Risk/Actual (Adult) Goal: Infection, Risk/Actual: Infection Prevention/Resolution/Control Patient will demonstrate the desired outcomes. IV antibiotics and oral vancomycin continued. Problem: Pain, Acute (Adult) Goal: Acute Pain: Acceptable Pain Control/Comfort Level Patient will demonstrate the desired outcomes. Carnegie given for pain this shift, verbalizes relief upon reassessment. Problem: Pressure Ulcer Risk (Using Terry Scale) (Adult) Goal: Pressure Ulcer Risk (using Terry Scale): Skin Integrity Patient will demonstrate the desired outcomes. Outcome: Progressing Calmoseptine supplied to Pt for right buttock wound, vebalizes relief with administration. Problem: Parenteral Nutrition (Adult) Goal: Prevent/Manage Potential Problems Signs and symptoms of listed problems will be absent or manageable. TPN continued at 85ml/hr this shift. Glucose was 231, 11 units of novolog given this shift. * Care Plan - Janice Crow RN - 02/29/2012 4:54 PM CDT Problem: General Plan of Care (Adult, Obstetrics) Goal: Individualization/Patient-Specific Goal (Adult, Obstetrics) The patient and/or their textiles sales representative will achieve their patient-specific goals related to the plan of care. The patient-specific goals include: infection, pain control prior to discharge. Outcome: Progressing Pt denies pain this shift. Problem: Infection, Risk/Actual (Adult) Goal: Infection, Risk/Actual: Infection Prevention/Resolution/Control Patient will demonstrate the desired outcomes. Outcome: Progressing PO vancomycin started without difficulty this shift. Problem: Pressure Ulcer Risk (Using Terry Scale) (Adult) Goal: Pressure Ulcer Risk (using Terry Scale): Skin Integrity Patient will demonstrate the desired outcomes. Outcome: Not Progressing Pt with old open abscess/ulcer to right inner buttocks. States it has been there for years and was present on admission. Wound care consulted per Dr. Ryan's order and calmoseptine applied to provide pain relief/treatment in the mean time. Will monitor closely. Problem: Respiratory Insufficiency (Adult) Goal: Respiratory Insufficiency: Effective Respiration; based on age, developmental level/comorbidities Patient will demonstrate the desired outcomes. Outcome: Not Progressing Pt with crackles to bilateral lung bases this shift. Re-enforced the importance of incentive spirometry every hour in pneumonia prevention. Verbalizes understanding and is able to do so independently. * Care Plan - Naomie Blum RD - 02/29/2012 10:09 AM CDT Problem: General Plan of Care (Adult, Obstetrics) Intervention: Promote Oral Nutrition Nutrition f/u TPN: 166#, BM today, Br 21, skin intact Labs: Na 130, Cl 94, Cr 0.65, gluc 177, bs 171, 205 02/26: Phos 4.5 and Mg 2.5 (WNL)-- recheck these labs TPN: 95g AA, 300g Dex, 60g Lipid Would increase NaCl to 100mEq Correct bs with insulin. MD adjusting electrolytes. TPN meeting nutritional needs Diet advanced to CLD today. ADAT to low fiber. Went over low fiber diet with pt. Encourage the high protein shakes when diet advances. Pt to possibly go home on TPN until adequate po allowed by GI. Will cont to monitor po, TPN, wt, labs, skin * Care Plan - Madelin Salas RN - 02/29/2012 1:47 AM CDT Problem: General Plan of Care (Adult, Obstetrics) Goal: Plan of Care Review (Adult, Obstetrics) The patient and/or their textiles sales representative will communicate an understanding of their plan of care. Outcome: Progressing POC reviewed with pt, pt verbalized understanding regarding the need to rest the bowel and monitor improvement, continue TPN and antibiotics, no concerns at this time. Problem: Infection, Risk/Actual (Adult) Goal: Infection, Risk/Actual: Infection Prevention/Resolution/Control Patient will demonstrate the desired outcomes. Outcome: Progressing Pt afebrile, VSS, IV antibiotics continued. Problem: Pain, Acute (Adult) Goal: Acute Pain: Acceptable Pain Control/Comfort Level Patient will demonstrate the desired outcomes. Outcome: Progressing Pt c/o minimal abdominal pain, vicodin given as needed, pt verbalized relief, pt denies nausea, on clear liquid and tolerating well. Problem: Parenteral Nutrition (Adult) Intervention: Hyperglycemia Management Results for MUKUL HUBER ( ) as of 02/29/2012 01:34 Ref. Range 02/28/2012 05:58 02/28/2012 12:56 02/28/2012 18:08 02/29/2012 00:10 POC GLUCOSE Latest Range: 65-99 mg/dL 189 (H) 249 (H) 218 (H) 205 (H) 11 units novolog given Sliding scale novolog increased to high dose, TPN continued * Care Plan - Janice Crow RN - 02/28/2012 5:24 PM CDT Problem: General Plan of Care (Adult, Obstetrics) Intervention: Promote Oral Nutrition Pt tolerating clear liquids without difficulty this shift. * Care Plan - Sandrine Andrew RN - 02/28/2012 2:14 PM CDT Problem: General Plan of Care (Adult, Obstetrics) Goal: Identify Discharge Needs Outcome: Progressing Met with patient and introduced role of care management available to assist with discharge planning. Patient lives with . 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 Potential for home TPN discussed. Notified Ammy with [facility] [id number] to follow for possiblehome TPN need. * Care Plan - Katie Caballero - 02/28/2012 1:43 PM CDT Problem: Spiritual Distress, Risk/Actual (Adult) Intervention: Assist with Spiritual Activities Follow up: Offered greeting to spouse - patient was asleep * Care Plan - Madelin Salas RN - 02/28/2012 5:10 AM CDT Problem: General Plan of Care (Adult, Obstetrics) Goal: Plan of Care Review (Adult, Obstetrics) The patient and/or their textiles sales representative will communicate an understanding of their plan of care. Outcome: Progressing Pt NPO after MN for upper and lower endoscopy in the AM, pt had multiple watery stools, last stool noted was watery and light brown, pt received vicodin twice during the night for abdominal cramping,pt verbalized relief, POC reviewed with pt and spouse both verbalized understanding, at bedside. Problem: Infection, Risk/Actual (Adult) Goal: Infection, Risk/Actual: Infection Prevention/Resolution/Control Patient will demonstrate the desired outcomes. Outcome: Progressing Pt afebrile, VSS, pt did report having night sweats, denies chills, IV antibiotic continued. Problem: Respiratory Insufficiency (Adult) Goal: Respiratory Insufficiency: Effective Respiration; based on age, developmental level/comorbidities Patient will demonstrate the desired outcomes. Outcome: Progressing Pt denies s/s of respiratory distress this shift, incentive spirometer encouraged. Problem: Parenteral Nutrition (Adult) Goal: Prevent/Manage Potential Problems Signs and symptoms of listed problems will be absent or manageable. Outcome: Progressing Results for MUKUL HUBER ( ) as of 02/28/2012 04:57 Ref. Range 02/27/2012 13:46 02/27/2012 17:37 02/28/2012 00:41 POC GLUCOSE Latest Range: 65-99 mg/dL 286 (H) 221 (H) 394 (H) 20 units novolog given Pt on TPN, IV solumedrol, pt also drank multiple Gatorade with bowel prep, blood glucose elevated, insulin given per sliding scale, job specification writer MD notified no new orders received, will monitor, blood glucose ordered Q6. Results for MUKUL HUBER ( ) as of 02/28/2012 06:38 Ref. Range 02/28/2012 05:58 POC GLUCOSE Latest Range: 65-99 mg/dL 189 (H) 5 units novolog given * Care Plan - Naomie Blum RD - 02/27/2012 10:02 AM CDT Problem: General Plan of Care (Adult, Obstetrics) Intervention: Promote Oral Nutrition Nutrition TPN f/u: 166# Labs: Na 131, Cl 93, gluc 203, alb 3.1 TPN: 95g AA, 300g Dex, 60g Lipid tpn meeting nutritional needs and is appropriate at this time. adjusting lytes. Diet: FLD PO: 10-70% Pt tolerating FLD diet, drank milkshake. Encourage protein shakes. Rec: advance diet when able to low fiber. Will cont to monitor po/TPN, wt, labs, skin * Care Plan - Pilar Crain RN - 02/27/2012 6:40 AM CDT Problem: General Plan of Care (Adult, Obstetrics) Goal: Plan of Care Review (Adult, Obstetrics) The patient and/or their textiles sales representative will communicate an understanding of their plan of care. Outcome: Progressing Pt co pain 1 time throughout the night. Pt received medication an appeared asleep upon reassessment. Pt reminded to call for assistance as needed. * Care Plan - Brittni Palacios RN - 02/26/2012 4:04 PM CDT Problem: General Plan of Care (Adult, Obstetrics) Goal: Plan of Care Review (Adult, Obstetrics) The patient and/or their textiles sales representative will communicate an understanding of their plan of care. Outcome: Progressing Pt up-ad mick in room, pt with no complaints of pain, only spasms to anal sphincter muscle. Pt reports that spasms are well controlled with Valium. TPN continues to infuse through PICC line. * Care Plan - Irasema Suazo RCP - 02/26/2012 11:19 AM CDT Problem: Respiratory Insufficiency (Adult) Intervention: Respiratory Insufficiency: Signs and Symptoms RT Assess & Treat Note Plan: No changes in therapy indicated at this time. If patient's respiratory condition changes, please call [phone]. * Care Plan - Nils Dover (Two), Student Respiratory - 02/26/2012 9:03 AM CDT Problem: General Plan of Care (Adult, Obstetrics) Goal: Individualization/Patient-Specific Goal (Adult, Obstetrics) The patient and/or their textiles sales representative will achieve their patient-specific goals related to the plan of care. The patient-specific goals include: infection, pain control prior to discharge. Outcome: Progressing Events of the Shift: The pt does acapella efficiently. The pt has a dry, nonproductive cough. Current Interventions/Protocols: Acapella QID Breath Sounds: Clear and diminished throughout. No change after the treatment. Respiratory Assessment: Respiratory (WDL): WDL except (02/26/12 0851) Cough: frequent;good;productive (02/26/12 0855) Sputum - Amount: small (02/24/12 1612) * Care Plan - Laverne Borjas RN - 02/26/2012 6:50 AM CDT Problem: General Plan of Care (Adult, Obstetrics) Goal: Individualization/Patient-Specific Goal (Adult, Obstetrics) The patient and/or their textiles sales representative will achieve their patient-specific goals related to the plan of care. The patient-specific goals include: infection, pain control prior to discharge. Outcome: Progressing Complained of anal spasms overnight, valium given with relief. Pain in abdomen increased with coughing and sneezing, PO pain medication given as requested. TPN started via PICC in LUE. States painless sores starting to form in mouth. * Care Plan - Janice Crow RN - 02/25/2012 3:41 PM CDT Problem: General Plan of Care (Adult, Obstetrics) Goal: Individualization/Patient-Specific Goal (Adult, Obstetrics) The patient and/or their textiles sales representative will achieve their patient-specific goals related to the plan of care. The patient-specific goals include: infection, pain control prior to discharge. Outcome: Progressing Pt verbalizes adequate pain control with minimal sweats this shift after po Vicodin given. * Care Plan - Philly Mccoy RN - 02/25/2012 4:36 AM CDT Problem: General Plan of Care (Adult, Obstetrics) Goal: Individualization/Patient-Specific Goal (Adult, Obstetrics) The patient and/or their textiles sales representative will achieve their patient-specific goals related to the plan of care. The patient-specific goals include: infection, pain control prior to discharge. No nausea this shift, pt tolerating clear liquid diet. Problem: Pain, Acute (Adult) Goal: Acute Pain: Acceptable Pain Control/Comfort Level Patient will demonstrate the desired outcomes. Pt abdominal pain is very minimal. Pt is now c/o neck pain the most. Heating pad, Flexeril, percocet, and dilaudid are being given for pain. Pt states the percocet makes me sweat just like the nikole did, and it doesn't seem to work as well as the one I get through my iv . Pt states I feel like I was in a car accident and I don't know why . * Care Plan - Joanie Rodrigues RN - 02/24/2012 7:50 PM CDT Problem: Pain, Acute (Adult) Goal: Acute Pain: Acceptable Pain Control/Comfort Level Patient will demonstrate the desired outcomes. Outcome: Progressing Medicated for complaint of stiff neck pain with minimal relief. Heating pad supplied. * Care Plan - Riya Smith RN - 02/24/2012 2:16 PM CDT Problem: General Plan of Care (Adult, Obstetrics) Goal: Individualization/Patient-Specific Goal (Adult, Obstetrics) The patient and/or their textiles sales representative will achieve their patient-specific goals related to the plan of care. The patient-specific goals include: infection, pain control prior to discharge. Outcome: Progressing Patient sitting up in bed, states abdominal pain is much better, has refused Dilaudid and Percocet when offered this afternoon. Patient aware of plan for PICC line placement today, information given and all questions answered. No communication barriers observed. * Scanned Form - Stl Scanning, [facility] - 02/24/2012 11:03 AM CDT * Care Plan - Philly Mccoy RN - 02/24/2012 4:53 AM CDT Problem: General Plan of Care (Adult, Obstetrics) Goal: Individualization/Patient-Specific Goal (Adult, Obstetrics) The patient and/or their textiles sales representative will achieve their patient-specific goals related to the plan of care. The patient-specific goals include: infection, pain control prior to discharge. At 2213 pt c/o nausea and abdominal pain 07/02. When pt got up to have bowel movement pt vomited, what looked to be dinner, moderate amount in bathroom. PO Zofran given along with percocet for pain. Pt has been receiving dilaudid every 2 hours for pain as well. Pt encouraged to take percocet to helpcontrol pain, pt verbalized understanding. zofran also given at 0435 along with dilaudid. * Care Plan - Riya Smith RN - 02/23/2012 6:37 PM CDT Patient lying in bed, tolerating positioning, states pain is well controlled with percocet and dilaudid. Patient tolerated full liquid diet at lunch. Diet advanced to regular for dinner. Patient aware of plan to continue IV antibiotics and have labs checked in AM. * Care Plan - Katie Caballero - 02/23/2012 2:13 PM CDT Problem: Spiritual Distress, Risk/Actual (Adult) Intervention: Assist with Spiritual Activities Initial visit: Nice family I am better but not there yet. * Care Plan - Naomie Blum RD - 02/23/2012 10:22 AM CDT Problem: General Plan of Care (Adult, Obstetrics) Intervention: Promote Oral Nutrition Nutrition Risk Screen:n/v>3days A: Ht: 5'9 Wt: 166# BMI:24.5 IBW:160#+/-10# Br:20 BM: 5/2 diarrhea Skin: intact Labs:Na 126, Cl 95, gluc 104 Pert Meds:zofran PMH:UC Diet: CLD PO:n/a presents with two week hx of abdominal pain and severe diarrhea. He began having abdominal pain about two weeks ago. He called his GI, Dr. Sotelo, who performed a colonoscopy and performed dilatation of his ileoanal anastomosis. Colonoscopy revealed pouchitis and he was started on a course of flagyl and asacol. The following day he began having multiple bouts of diarrhea. He later developed abdominal pain and reports chills and subjective fevers. His abdominal pain escalated to 9/10 and has been constant for about the past two days with continued diarrhea and nausea. He has only been able totolerate small amounts of oral intake for about 5 days Will send CLD supplements on tray D:Inadequate oral intake r/t n/v/abd pain and diarrhea as evidence by decreased po I: Nutrition Prescription:ADAT to low Fiber Nutrition Intervention:If unable to advance diet then consider nutrition support Send CLD resource breeze supplement REC: MVI M/E: 1.will monitor po, wt, labs, skin 2.f/u q4days/PRN * Care Plan - Lelo Ordoñez RCP - 02/23/2012 9:59 AM CDT Problem: General Plan of Care (Adult, Obstetrics) Goal: Plan of Care Review (Adult, Obstetrics) The patient and/or their textiles sales representative will communicate an understanding of their plan of care. Outcome: Progressing RT Assess & Treat Note Plan: Patient will remain on Duoneb Q6prn for bronchodilation and deep breathe and cough for airwayclearance and lung expansion. Patient will have follow up in 72 hours per protocol. * Treatment Plan - Irasema Suazo RCP - 02/23/2012 9:50 AM CDT [facility] RT Assess and Treat Worksheet # Date/Time Crop Puller Orders written per protocol 1 02/23/12 JINNY duoneb q6prn, ordered by MD 2 02/26/12 AGD No changes indicated 3 4 5 6 7 8 9 Smoking Hx: Quit 5 pack years Home Therapy: none Home O2: no # Next appt date and time Comments 1 02/26/12 Pt has cough, but does not need tx. Left prn since MD ordered 2 none Unless there is a change in pt respiratory status 3 4 5 6 7 8 9 10 Airway Clearance CXR date A I C Dx P WC UC MW BH6 MDI AI 5/3 n n n n n y n na na na 5/4 n n n n n n n na na na 1 Bronchodilator Therapy # RH RP RR BS O2 PEFR% (for asthma) Score Class 1 1 0 0 1 0 2 0 2 1 0 0 0 0 1 0 3 4 5 6 7 8 9 Check-offs Education Protocol in chart: y Rescue Medications N OBGYN HOSPITALIST PHYSICIAN Meds Reviewed: y Controller Medications N Smoke History Review: y Spacer for MDI: N RN PSYCH Home Therapy History: y Acapella: N Pulmonary Disease History: y EzPAP: N Additional Orders: N Cough & D. Br / IS: N Smoking Cessation by RT: N How to call for a PRN Tx: N Asthma Ed by RT: N ACT for ages 4 to 11: N COPD Ed by RT: N ACT for ages 12 and up: N Pneumonia Ed by RT: N COPD 7 question Assessment N O2 Walk Study: N MDI/DPI Ed by RT : Discharge Readiness Smoke Cessation Complete: N MDI/DPI Ed complete Asthma Ed Complete: N COPD Ed Complete: N Pneumonia Ed Complete: N O2 Walk Study Complete: N RT Assess & Treat Complete: N Future Appts Canceled: N Anachronism: CXR A = Atelectasis per Chest X-Ray WC = Weak Cough CXR I = Infiltrates per Chest X-Ray UC = Pt gets up in chair during the day CXR C = Consolidation per Chest X-Ray MW = Muscular Weakness Dx P = Pneumonia on Hospital Problem list BH6 = 6 sec breath hold on MDI technique Score RH = Score per Respiratory History NC = MDI independent Score RP = Score per Respiratory Pattern AI = Acapella independent Score RR = Score per Respiratory Rate PA = Pt aware of therapy changes Score BS = Score per Breathsounds NN = Nursing notified of therapy changes * Treatment Plan - Lelo Ordoñez RCP - 02/23/2012 9:50 AM CDT Images from the original note were not included. [facility] - RT Assess and Treat (RT41) [facility] Approved 05/07/2009 Included: Assess and Treat Protocol Policy ASSESS AND TREAT PROTOCOL-ADULT BRONCHODILATION PROCEDURE ASSESS AND TREAT PROTOCOL-ADULT AIRWAY CLEARANCE & LUNG EXPANSION PROCEDURE Assess and Treat Protocol Policy (Adult) General Purpose: The Assess & Treat protocol is made up of two branches. Based on the patient assessment one or both of the branches of the protocol will be applied. 1. Adult Bronchodilation a. To provide assessment of patients receiving inhaled medications. b. To determine appropriate dosage, frequency, and mode of bronchodilator therapy. 2. Adult Airway Clearance & Lung Expansion a. To provide assessment of patients in need of airway clearance or lung expansion therapy. b. To provide various adjuncts to aid in mobilization of secretions and to treat atelectasis. c. To provide encouragement and aid in patient???s performance of deep breathing exercises. d. To guide the Respiratory Therapist through an algorithm that determines the best modality for that patient. Policy: 1. Requires a written order for Assess and Treat by the physician or the physician commercial assistant such asthe physician assistant professor sculpture or nurse practitioner. 2. Only licensed Respiratory Therapist will be permitted to assess patients using the standardized Respiratory Assessment for the Assess & Treat Protocol. 3. Respiratory Therapist are required to use the Assess & Treat/Adult Bronchodilation and the Assess & Treat /Adult Airway Clearance & Lung Expansion plan sheets to provide appropriate communication between health care providers. A formal note will also be placed in the medical record outlining the encounter and treatment plan. 4. Changes in mode, frequency, or dosage will be communicated to all appropriate personnel. 5. Should not be ordered on Mechanically Ventilated patients. ASSESS AND TREAT PROTOCOL-ADULT BRONCHODILATION PROCEDURE Procedure: A. Authorization: Physician???s Order B. Indications: 1. Bronchospasm/wheezing (Reactive Airway Disease, Asthma, Emphysema, Chronic Bronchitis, Bronchiolitis) 2. Current Home Bronchodilator usage 3. Other indications stated in the [employer]???s Clinical Practice Guidelines C. Precautions: N/A D. Implementation: 1. Verify physician order for Assess and Treat. 2. Gather background information using format below. INITIAL ASSESSMENT - Date: / / Time: Therapist: REASSESSMENT - Date: / / Time: Therapist: REASSESSMENT - Date: / / Time: Therapist: Date of Admission: Code Status: Admitting Diagnosis: Pulmonary Hx: Pertinent Lab Data: Cough: Sputum Production: Home Therapy: NO r YES r Describe: Oxygen/CPAP/BiPAP therapy: Device Fi02/lpm SpO2 PEFR : 1.) / L/Min 2.) / L/Min 3.) / L/Min % Pred = Actual/Predicted % % % 3. Respiratory Therapist Crop Puller is to evaluate and score the patient???s respiratory status priorto medication delivery using the protocol???s scoring worksheet (shown below). All patient assessment parameters listed below as ???Items?? are to be evaluated. Determine total score (???Findings?? ) based on total points earned from each respiratory item assessed. The boxes in each ???Findings?? column correspond to when the assessment occurs. The first box represents the initial evaluation, the second box represents the re-evaluation as determined by the protocol, and the last box represents any on-going reassessment. Item Findings (0) Findings (1) Findings (2) Findings (3) Findings (4) Respiratory History no smoking history smoking history < 1 PPD or Quit > 1 year acute pulmonary disease or smoking history > 1 PPD or > 72 hrs. post-exacerbation history of pulmonary disease, admission for other reason admission for exacerbation of pulmonary disease Respiratory Pattern normal dyspnea on exertion conversational dyspnea dyspnea at rest accessory muscle usage/ prolonged expiration Respiratory Rate < 16 bpm 17 - 20 bpm 21 - 25 bpm 26 - 30 bpm > 30 bpm Breath Sounds clear Diminished or Crackles rhonchi, coarse inspiratory or expiratory wheezes absent O2 Requirement none NC<4L, FIO2 28-30%, or home setting FIO2 35-50%, or flow 4-9 L 50 % VM NRB or flow > 10 lpm Classifying the Patient Patients are classified based on their admission diagnosis and the severity score determined by theprotocol???s standardized Respiratory Assessment. This mechanism determines their respiratory system status and the severity of symptoms. Based on this classification score the therapist determines the frequency of medication administration as well as how often they are reassessed. All patients will be reassessed 24 hours after initial assessment, except patients in Class 0. Ongoing reassessmentswill be performed based on classification score frequency. Reassessments include all assessment parameters and are scored with each reassessment. If a patient requests more than 3 PRN treatments in a24 hour period or their condition worsens, then the patient should receive a reassessment. The Adult Bronchodilation branch will be followed for patients with a medical diagnosis of COPD, emphysema, chronic bronchitis, bronchiectasis, cystic fibrosis, bronchospasm/wheezing, reactive airwaydisease. Asthma Exacerbation Path within the Adult Bronchodilation branch will be followed for patients admitted with a medical diagnosis of asthma. A Peak flow (PEFR), if patient is able, will be assessed before and after every treatment for patients with an asthma exacerbation. Therapy effectiveness will be evaluated by pulmonary assessment and predicted/personal best values. Adult Bronchodilation Branch Medical diagnosis of COPD, emphysema, chronic bronchitis, bronchiectasis, cystic fibrosis Patients diagnosed with COPD may be ordered on 2puffs Combivent or Duoneb. Atrovent may be used if it is in the patient???s home regimen. CLASS/SCORE FREQUENCY MDI AEROSOL Class 0/ 0-3 * reassess when condition worsens no treatment indicated at this time Class 1/ 4-5 *reassess q 72 hours or if requesting more than 3 treatments Q6 PRN 2 puffs Albuterol or Home Regimen 2.5 mg Albuterol or Home Regimen Class 2/ 6-10 *reassess q 48 hours QID or Q6 and Q6 PRN 2 puffs Albuterol or Home Regimen 2.5 mg Albuterol or Home Regimen Class 3/ > 11 *reassess q 24 hours and PRN O4 and Q4 PRN 2 puffs Albuterol or Home Regimen 2.5 mg Albuterol or Home Regimen Asthma Exacerbation Path Admitting diagnosis of Asthma Asthmatic not responding to Albuterol/Steroids may be started on 2 puffs Combivent or Duoneb CLASS/SCORE PEFR FREQUENCY TREATMENT Class 1/ 0-5 * reassess q 48 hours > 80% of Predicted/ Personal Best QID or Q6 and Q6 PRN PEFR before & after each tx 2.5 mg Albuterol or 2 puffs Albuterol Class 2 / 6-10 *reassess q 24 hours > 50-80% of Predicted/ Personal Best Q4 and Q4 PRN PEFR before & after each tx 2.5mg Albuterol or 2 puffs Albuterol Class 3 / > 11 *reassess q 12 and PRN < 50% of Predicted/ Personal Best Q3 times 2, then Q4 PEFR before & after each tx 2.5mg Albuterol or 2 puffs Albuterol Review the patient???s home inhaled medications. Match Home Regimen whenever possible. If ipratropium bromide is part of the home regimen, then continue to administer. Medications other than Albuterol or ipratropium bromide require a separate physician order. If theyare not ordered, the Respiratory Therapist will verify with physician that they are not to be continued at the current time. Patient???s are to be maintained on their home regimen even if they score to have treatments on a less frequent administration. Patients on home regimen will be reassessed after 72 hours [place] the patient???s home frequency and if possible change the patient to MDI. The patient and physician need to agree to changing the mode of therapy. Determine Mode of Delivery using chart below The mode of delivery is determined by patient ability and desire. The method of delivery may be changed at any time at the discretion of the Respiratory Therapist based on patient need. The method ofdelivery is not based on the patient???s classification. Metered Dose Inhaler (MDI) is administered when: High Flow Nebulizer (HFN) is administered when: a. Medication is available in an MDI a. Medication is not available in MDI b. Patient is alert, cooperative and able to follow commands/instructions b. Patient is unable to perform an MDI c. Patient is able to take a deep breath and perform a minimum of a 3 second breath hold c. Patientis not able to respond to a verbal command d. Patient demonstrates ability to use MDI with spacer effectively d. Patient???s home regimen is with a nebulizer and the Physician does not desire to change to a MDI e. Patient has existing artificial airway or tracheostomy e. Patient receiving NIPPV and not able to be removed for MDI 1) Patient education should be given for all modalities, medication and pulmonary disease. 2) Xopenex (Levalbuterol) Orders will be followed as below: See Pharmacy Policy, Section: APPROVED THERAPEUTIC INTERCHANGES FOR [facility], Title: Beta Agonists Patients taking home regimen Xopenex will continue with home regimen and at home frequency as long as there is an order from the physician that includes; do not substitute and rationale for need to use levalbuterol. An adverse reaction or hypersensitivity is demonstrated by a 20% increase in heart rate above baseline during or within 10 minutes of administration of albuterol or tremors/shakiness that is noted bythe therapist or reported by the patient that resolve with the use of Xopenex. If the patent demonstrates hypersensitivity to Albuterol, Xopenex will be used Considerations 1. Physician contact at anytime is acceptable. i.e. Assessment score is > 16, unable to determine an assessment parameter, home regimen medications not included in protocol, changes in frequency or delivery method for other inhaled medications which do not include Albuterol or Ipratropium. 2. A Medical Emergency Team may be considered at any time. Index # 106, Section: Nursing Process, Title: MEDICAL EMERGENCY TEAM (MET) FOR CHANGE IN PATIENT???S CONDITION. ASSESS AND TREAT PROTOCOL-ADULT AIRWAY CLEARANCE & LUNG EXPANSION PROCEDURE Procedure: A. Authorization: Physician???s Order B: Indications: 1. To aid in mobilization of retained secretions. Sputum retention not responsive to spontaneous ordirected coughing 2. To prevent or reverse atelectasis 3. To optimize delivery of bronchodilators in patients receiving bronchial hygiene therapy 4. History of pulmonary problems treated successfully with postural drainage therapy 5. Decreased breath sounds or adventitious sounds suggesting secretions in the airway 6. Abnormal chest x-ray consistent with atelectasis, mucus plugging, or infiltrates C. Precautions: N/A D. Implementation: 1. Verify Physician order for Assess and Treat or Airway Clearance or Lung Expansion. 2. Gather background information using format below. INITIAL ASSESSMENT - Date: / / Time: Therapist: REASSESSMENT - Date: / / Time: Therapist: REASSESSMENT - Date: / / Time: Therapist: Initial Order as Written: Date of Admission: Code Status: Admitting Diagnosis: Pulmonary Hx: ABG: Pertient Lab Data: Oxygen Therapy: Device FIO2/lpm SpO2 RR: Home Therapy: NO YES Describe CXR: Date: Interpretation: Date: Interpretation: Date: Interpretation: Breath Sounds: Date: Description: Date: Description: Date: Description: COUGH: Date: loose non-productive weak effective weak ineffective no cough unable strong NPC Date: loose non-productive weak effective weak ineffective no cough unable strong NPC Date: loose non-productive weak effective weak ineffective no cough unable strong NPC 4. Two parameters are determined - the need for therapy and mode of therapy. This is determined by answering the algorithm questions (algorithm shown below) ALGORITHM BELOW Criteria for diagnosis of atelectasis (at least one): Radiological interpretation on chest x-ray. Terms to look for include infiltrates, consolidation, or atelectasis. High oxygen requirement. (FiO2 > .50 or flow > 10. HFNC.) Absent breath sounds over affected area. 1. If patient is ambulatory, instruct patient in cough and deep breathing and encourage ambulation (no further reassess are necessary unless patient conditions worsens) 2. If patient is not ambulatory, use PEP Criteria for diagnosis of retained secretions: Breath sounds that are rhonchi (coarse) that do not clear with cough. 1. If patient has effective cough or able to take deep breath, use Chest Vest 2. If patient does not have effective cough or cannot take a deep breath, use IPV. If patient has muscular weakness, use Cough Assist or Quad Cough. Quad cough will be given on a PRN frequency Criteria for atelectasis & retained secretions: 1. If patient has effective cough or able to take a deep breath and can seal a mouthpiece, use Oscillatory PEP. (Acapella therapy will be left at bedside with patient after instruction with proper technique. Patients will be reassessed the following day for therapy effectiveness. No further reassess are necessary unless patient condition worsens) 2. If patient has effective cough or able to take a deep breath and cannot seal a mouthpiece, us PEP with mask 3. If patient does not have an effective cough or cannot take a deep breath, us IPV Criteria for evaluation of an adequate deep breath: Ability to inhale or exhale (depending on measuring device) a minimum vital capacity of 10 ml/kg ofIBW. May use incentive spirometers for this measurement. Criteria for evaluation of adequate cough: Ability to take an adequate deep breath as defined above followed by ability to close glottis and produce an audible cough. 5. Frequency of therapy is TID to QID. If patient is on Bronchodilation Branch, then frequency willfollow bronchodilator. 6. IPV will be delivered with 15 cc NS. Bronchodilation medication ordered per physician or from Adult Bronchodilation branch will be given prior to IPV treatment. 7. Patients are reassessed every 48 hours, and therapy may be discontinued as the patient???s condition improves. 8. If there is no patient improvement or patient does not tolerate chosen modality, chose another modality in that arm of the algorithm and reassess daily. After 48 hours of second modality and no patient improvement, consult physician. Assessment of Outcome: Change in sputum production; improved ease of clearing secretion, increased volume of secretions during and after treatments. Change in breath sounds - with effective therapy, breath sounds may clear or the movement of secretions into the larger airways may cause a change in breath sounds. Note an effect that coughing may have had on the breath sounds Patient subjective response to therapy. Change in chest x-ray - resolution or improvement of atelectasis and localized infiltrates may be slow or dramatic E. Relative Contraindications: Although no absolute contraindications are reported, the following should be carefully evaluated and the patient monitored during therapy. 1. Patients unable to tolerate the increased work of breathing during procedures. Increased work ofbreathing that may lead to hypoventilation and hypercarbia 2. Intracranial pressure (ICP) > 20 mmHg. May increase during therapy 3. Hemodynamic instability. May result in further cardiovascular compromise and potential venous return 4. Recent facial, oral, and skull surgery or trauma 5. Acute sinusitis 6. Epitaxis 7. Esophageal surgery (positive pressure not allowed, consult physician for vest therapy) 8. Bariatric surgery (positive pressure not allowed, consult physician for vest therapy) 9. Hemoptysis 10. Nausea. Air swallowing, with increased likelihood of vomiting and aspiration 11. Known or suspected tympanic membrane rupture or other middle ear pathology 12. 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 The patient-specific goals include: infection, pain control prior to discharge. Pt is having loose stools, pt denies nausea upon arrival to floor. Pt has had multiple small bowel movements this shift. Problem: Infection, Risk/Actual (Adult) Goal: Infection, Risk/Actual: Infection Prevention/Resolution/Control Patient will demonstrate the desired outcomes. Outcome: Progressing Flu swab, urine, and stool sent to lab. Pt aware that sputum sample is needed, yet is not coughing anything up at this time. Problem: Pain, Acute (Adult) Goal: Acute Pain: Acceptable Pain Control/Comfort Level Patient will demonstrate the desired outcomes. Outcome: Progressing Pt abdominal pain is being controlled with norco and dilaudid this shift. documented in this encounter Plan of Treatment Upcoming Encounters Date Type Department Care Team (Late st Contact Info) Description 02/13/2025 10:30 AM CDT Office Visit [facility] [place] [address] [place] [address] Kitty Dover, ANP [address] [place] [address] documented as of this encounter Procedures Procedure Name Priority Date/Time Associated Diagnosis Comments GI REPORT 03/07/2012 1:59 PM CDT CBC WITH DIFFERENTIAL Routine 03/03/2012 4:25 AM CDT POC GLUCOSE Routine 03/02/2012 8:48 PM CDT POC GLUCOSE Routine 03/02/2012 5:56 PM CDT POC GLUCOSE Routine 03/02/2012 12:17 PM CDT C-REACTIVE PROTEIN Timed Study 03/02/2012 11:00 AM CDT BASIC METABOLIC PANEL Add on 03/02/2012 11:00 AM CDT POC GLUCOSE Routine 03/02/2012 6:01 AM CDT CBC WITH DIFFERENTIAL Routine 03/02/2012 6:00 AM CDT POC GLUCOSE Routine 03/01/2012 11:48 PM CDT POC GLUCOSE Routine 03/01/2012 5:38 PM CDT C. DIFFICILE DETECTION Timed Study 2 2:51 PM CDT POC GLUCOSE Routine 03/01/2012 11:45 AM CDT IP CONSULT TO WOUND/SKIN CAR E TEAM Routine 03/01/2012 10:48 AM CDT POC GLUCOSE Routine 03/01/2012 5:53 AM CDT CBC WITH DIFFERENTIAL Routine 03/01/2012 1:40 AM CDT C-REACTIVE PROTEIN Routine 03/01/2012 1:40 AM CDT COMPREHENSIVE METABOLIC PANEL Routine 1:40 AM CDT POC GLUCOSE Routine 03/01/2012 12:11 AM CDT POC GLUCOSE Routine 02/29/2012 6:04 PM CDT POC GLUCOSE Routine 02/29/2012 11:49 AM CDT POC GLUCOSE Routine 02/29/2012 5:10 AM CDT CBC WITH DIFFERENTIAL Routine 02/29/2012 3:00 AM CDT BASIC METABOLIC PANEL Routine 02/29/2012 3:00 AM CDT POC GLUCOSE Routine 02/29/2012 12:10 AM CDT POC GLUCOSE Routine 02/28/2012 6:08 PM CDT RETIRED BOWEL SMALL BIOPSY ENDOSCOPIC 02/28/2012 4:40 PM CDT ESOPHAGOGASTRODUODENOSCOPY 02/27 4:40 PM CDT EKG 12-LEAD Stat 02/28/2012 3:53 PM CDT POC GLUCOSE Routine 02/28/2012 12:56 PM CDT PATHOLOGY Routine 02/28/2012 11:20 AM CDT POC GLUCOSE Routine 02/28/2012 5:58 AM CDT CBC WITH MANUAL DIFFERENTIAL Routine 05/2012 4:35 AM CDT C-REACTIVE PROTEIN Add on 02/28/2012 4:35 AM CDT COMPREHENSIVE METABOLIC PANEL Routine 4:35 AM CDT POC GLUCOSE Routine 02/28/2012 12:41 AM CDT POC GLUCOSE Routine 02/27/2012 5:37 PM CDT POC GLUCOSE Routine 02/27/2012 1:46 PM CDT C-REACTIVE PROTEIN Routine 02/27/2012 6:05 AM CDT PHOSPHORUS Routine 02/27/2012 6:05 AM CDT MAGNESIUM LEVEL Routine 02/27/2012 6:05 AM CDT COMPREHENSIVE METABOLIC PANEL Routine 6:05 AM CDT CBC WITH DIFFERENTIAL Routine 02/26/2012 6:20 AM CDT C-REACTIVE PROTEIN Routine 02/26/2012 6:20 AM CDT SKIN TEST TB Routine 02/26/2012 XR CERVICAL SPINE 2 OR 3 VIEWS Routine 0 02/25/2012 11:11 AM CDT CBC WITH DIFFERENTIAL Routine 02/25/2012 6:10 AM CDT COMPREHENSIVE METABOLIC PANEL Routine 6:10 AM CDT XR CHEST PA OR AP 1 VW Routine 2 3:25 PM CDT IR VENOUS ACCESS Routine 02/24/2012 3:15 PM CDT IP CONSULT TO NUTRITION SERVICES Routine 02/24/2012 3:10 PM CDT IP CONSULT TO NUTRITION SERVICES Routine 02/24/2012 12:31 PM CDT XR CHEST PA OR AP 1 VW Routine 2 8:01 AM CDT TSH REFLEXIVE Add on 02/24/2012 4:40 AM CDT INFLAMMATORY BOWEL DISEASE PANEL Routine 02/24/2012 4:40 AM CDT CBC WITH DIFFERENTIAL Routine 02/24/2012 4:40 AM CDT C-REACTIVE PROTEIN Timed Study 02/24/2012 4:40 AM CDT PREALBUMIN Add on 02/24/2012 4:40 AM CDT BASIC METABOLIC PANEL Routine 02/24/2012 4:40 AM CDT IP CONSULT TO GI Routine 02/23/2012 9:34 PM CDT CORTISOL LEVEL Routine 02/23/2012 8:28 AM CDT RT ASSESS AND TREAT Routine 02/23/2012 7:50 AM CDT C-REACTIVE PROTEIN Add on 02/23/2012 7:50 AM CDT LACTIC ACID Routine 02/23/2012 7:10 AM CDT CBC WITH DIFFERENTIAL Routine 02/23/2012 7:10 AM CDT BASIC METABOLIC PANEL Routine 02/23/2012 7:10 AM CDT URINALYSIS WITH REFLEX CULTURE Routine 0 02/23/2012 3:46 AM CDT URINALYSIS W/REFLEX MICROSCOPIC Routine 02/23/2012 3:46 AM CDT URINE CULTURE Routine 02/23/2012 3:46 AM CDT C. DIFFICILE DETECTION Routine 2 3:42 AM CDT STOOL CULTURE W/SHIGA TOXIN Routine 12/2011 3:42 AM CDT INFLUENZA VIRUS A AND B, ANTIGEN DETECTION Timed Study 02/23/2012 3:02 AM CDT XR CHEST PA OR AP 1 VW Stat 2 2:[address] ABDOMEN PELVIS W CONTRAST Stat 11/2011 8:52 PM CDT CBC WITH DIFFERENTIAL Routine 02/22/2012 7:57 PM CDT LIPASE Stat 02/22/2012 7:24 PM CDT COMPREHENSIVE METABOLIC PANEL Stat 7:24 PM CDT documented in this encounter Results * GI REPORT (03/07/2012 1:59 PM CDT) Narrative Transcriptions Katie Ryan MD - 02/28/2012 1:57 PM CDT [place], [place] [address] Gastroenterology CSN: [id number] DATE OF SERVICE: 02/28/2012 ENDOSCOPIC PROCEDURE HISTORY Mukul is a 41-year-old male undergoes endoscopic evaluation forinflammatory bowel disease. The patient has a history of proctocolectomyin 2001, who was hospitalized after presenting with severe dehydration,abdominal pain, and pouchitis on endoscopy by Dr. Sotelo. The patientis currently being treated with high-dose corticosteroids, IV fluids, andantibiotics. He now undergoes upper endoscopy and endoscopy of his residual smallintestine. PROCEDURE With the patient on left side, sedation provided by Anesthesia. TheOlympus video endoscope was introduced into oropharynx without difficulty.Esophageal mucosa was smooth without base ulceration. No erosions orulcers were seen. The stomach was entered without difficulty. Rugalfolds are soft. There was a patchy gastritis involving both the antrumand fundus and biopsies were obtained. No discrete ulcers, polyps, orneoplasms were seen. The pylorus symmetrical duodenal bulb and distalsweep were unremarkable. Small bowel biopsies were obtained. Overall,the patient tolerated the procedure well. DIAGNOSES 1. Mild gastritis. 2. Reflux esophagitis grade 1. Subsequent to this, examination of the lower small intestine is performed.The perianal area is inspected. There is an approximately 6 mmsuperficial ulceration to the left of the anal canal and buttock. A rectal examination shows to be widely patent with no stenosis andgranular mucosa is noted. The endoscope was introduced into the residualpouch. We were immediately impressed by the degree of inflammation withmultiple broad ulcerations and exudative drainage. The pouch is diffuselyseverely abnormal with broad ulcers throughout the pouch. The suture lineis identified with multiple andre. Scope was introduced up to smallintestine approximately 40 cm, which shows similar appearances. The smallintestine is markedly inflamed with multiple ulcerations extending as faras we could see. There was an angle, and I could visualize the smallintestine to an approximately another 15 cm, which is completely abnormalwith multiple ulcers. Photographs are obtained. Biopsies of the distalsmall intestine and the pouch are obtained. Overall, the patienttolerated procedure well. DIAGNOSES Severe enteritis involving the pouch and distal small intestinecharacterized by multiple broad ulcerations and denuded mucosa. DISCUSSION The etiology of this is quite suspicious for Crohn disease. Certainly,one could wonder about autoimmune process, an infectious process andextensive pouchitis. The inflammation of pouchitis extending up the smallintestine to this degree is uncommon my experience so makes me issuspicious that it is recurrent inflammatory bowel disease. RECOMMENDATIONS At this time, the patient is on broad-spectrum antibiotics and high-dosecorticosteroids. He has been covered with total parenteral nutrition. We will anticipate to proceed with Remicade infusion. Note that, thepatient did have a PPD, which was interpreted is negative after 48 hours.We may consider oral vancomycin and the possibility that C. diff could bepresent, although stool for C. diff is negative. ZANEF:SHWETHA DID:[id number] Dictated by: Katie Ryan MD [employer], Him - 03/07/2012 1:59 PM CDT Katie Ryan MD GI PROCED[facility] * (ABNORMAL) CBC WITH DIFFERENTIAL (03/03/2012 4:25 AM CDT) WBC 16.5(H) 4.0 - 9.8 K/uL [facility] RBC 4.07(L) 4.50 - 5.40 M/uL [facility] HEMOGLOBIN 11.4(L) 13.6 - 16.5 g/dL [facility] HEMATOCRIT 36.1(L) 40.0 - 48.0 % [facility] MCV 88.7 82.0 - 99.0 fL [facility] MCH 28.0 27.2 - 32.6 pg [facility] MCHC 31.6 31.5 - 35.5 % [facility] PLATELETS 574(H) 140 - 350 K/uL [facility] MPV 9.1(L) 9.3 - 12.4 fL [facility] RDW 13.9 11.5 - 14.5 % [facility] RDW-STDEV 45.5 37.1 - 48.7 fL [facility] NEUTROPHILS, SEG 93(H) 45 - 70 % [facility] BANDS 1 0 - 5 % [facility] LYMPHOCYTES 2(L) 16 - 45 % [facility] MONOCYTES 4 3 - 13 % [facility] EOSINOPHILS 0 0 - 7 % [facility] . [facility] BASOPHILS 0 0 - 2 % [facility] . [facility] PLATELET EST. Consistent w/ count Normal [facility] NEUTROPHIL ABSOLUTE 15.51(H) 1.90 - 7.00 K/uL [facility] LYMPHOCYTE ABSOLUTE 0.33(L) 0.70 - 4.50 K/uL [facility] MONOCYTE ABSOLUTE 0.66 0.10 - 1.30 K/uL [facility]ORATORY SERVICES - [facility] EOSINOPHIL ABSOLUTE 0.00 0.00 - 0.70 K/uL [facility] LABORATORY SERVICES - [facility] BASOPHILS ABSOLUTE 0.00 0.00 - 0.20 K/uL [facility]ORY SERVICES - [facility] RBC MORPHOLOGY Normal Normal [facility] LABORATORY SERVICES - [facility] Blood specimen (specimen) 03/03/2012 4:25 AM CDT 03/03/2012 5:30 AM CDT Gladys Calvo MD HEMATOLOGY O RDERABLES [facility] LABORATORY SERVICES [facility] CLIA# [id number] [address] [place] [place] [address] * (ABNORMAL) POC GLUCOSE (03/02/2012 8:48 PM CDT) GLUCOSE POC 129(H) 65 - 99 mg/dL [facility] LABORATORY SERVICES [facility] CLIA LICENSE [id number] [facility] LABORATORY SERVICES [facility] Blood specimen (specimen) 03/02/2012 8:48 PM CDT 03/02/2012 8:48 PM CDT Gladys Calvo MD POINT OF CAR E TESTING Performing Organization Address [facility] Co de Phone Number [facility] LABORATORY [facility] CLIA# [id number] [address] [place] [address] * (ABNORMAL) POC GLUCOSE (03/02/2012 5:56 PM CDT) GLUCOSE POC 129(H) 65 - 99 mg/dL [facility] LABORATORY [facility] CLIA LICENSE [id number] [facility] LABORATORY SERVICES [facility] Blood specimen (specimen) 03/02/2012 5:56 PM CDT 03/02/2012 5:56 PM CDT Gladys Calvo MD POINT OF CAR E TESTING [facility] [employer] [facility] [id number] [address] [place] [address] * (ABNORMAL) POC GLUCOSE (03/02/2012 12:17 PM CDT) [facility] GLUCOSE POC 302(H) 65 - 99 mg/dL [facility] LABORATORY [facility] CLIA LICENSE [id number] [facility] LABORATORY SERVICES [facility] Blood specimen (specimen) 03/02/2012 12:17 PM CDT 03/02/2012 12:17 PM CDT Gladys Calvo MD POINT OF CAR E TESTING Performing Organization Address [facility] Co de Phone Number [facility] [employer] [facility] CLAR# [id number] [address] [place] [address] * (ABNORMAL) C-REACTIVE PROTEIN (03/02/2012 11:00 AM CDT) [facility] CRP 1.9(H) 0.0 - 0.8 mg/dL [facility] LABORATORY [facility] Blood specimen (specimen) 03/02/2012 11:00 AM CDT 03/02/2012 3:23 PM CDT Gladys Calvo MD CHEMISTRY OR DERABLES Performing Organization Address [facility]/ZIP Co de Phone Number [facility] [employer] [facility]# [id number] [address] [place] [address] * (ABNORMAL) BASIC METABOLIC PANEL (03/02/2012 11:00 AM CDT) Pathologist [facility] SODIUM 133(L) 135 - 145 mmol/L [facility] LABORATORY SERVICES [facility] POTASSIUM 4.8 3.5 - 4.9 mmol/L [facility] LABORATORY SERVICES [facility] CHLORIDE 97 96 - 108 mmol/L [facility] LABORATORY SERVICES [facility] CO2 28 22 - 30 mmol/L [facility] LABORATORY SERVICES [facility] CALCIUM 8.5(L) 8.6 - 10.2 mg/dL [facility] LABORATORY [facility] BUN 18 6 - 20 mg/dL [facility] CREATININE 0.60(L) 0.67 - 1.17 mg/dL [facility] GLUCOSE 283(H) 65 - 99 mg/dL [facility] GFR, >60 >=60 mL/min/1. 7 sq meter [facility] LABORATORY [facility] GFR >60 >=60 mL/min/1. 7 sq meter [facility] LABORATORY [facility] Comment: GFR is calculated using the IDMS-Traceable Modification of Diet in Renal Disease (MDRD) Study formula and is only valid for patients 18 years or older. Further interpretative information is available in the Laboratory Services Policy Manual on the [facility] Intranet at: [email or web address]/ Blood specimen (specimen) 03/02/2012 11:00 AM CDT 03/02/2012 11:09 AM CDT Gladys Calvo MD CHEMISTRY OR DERABLES [facility] CLIA# [id number] [address] [place] [address] * (ABNORMAL) POC GLUCOSE (03/02/2012 6:01 AM CDT) GLUCOSE POC 160(H) 65 - 99 mg/dL [facility] CLIA LICENSE [id number] [facility] Blood specimen (specimen) 03/02/2012 6:01 AM CDT 03/02/2012 6:01 AM CDT Gladys Calvo MD POINT OF CAR E TESTING [facility] CLIA# [id number] [address] [place] [address] * (ABNORMAL) CBC WITH DIFFERENTIAL (03/02/2012 6:00 AM CDT) WBC 16.0(H) 4.0 - 9.8 K/uL [facility] RBC 3.72(L) 4.50 - 5.40 M/uL [facility] HEMOGLOBIN 10.5(L) 13.6 - 16.5 g/dL [facility] HEMATOCRIT 32.9(L) 40.0 - 48.0 % [facility] MCV 88.4 82.0 - 99.0 fL [facility] MCH 28.2 27.2 - 32.6 pg [facility] MCHC 31.9 31.5 - 35.5 % [facility] PLATELETS 503(H) 140 - 350 K/uL [facility] MPV 9.0(L) 9.3 - 12.4 fL [facility] - [facility] RDW 13.9 11.5 - 14.5 % [facility] RDW-STDEV 45.1 37.1 - 48.7 fL [facility] NEUTROPHILS, SEG 87(H) 45 - 70 % [facility] [place] [facility] SERVICES - [facility] LYMPHOCYTES 5(L) 16 - 45 % [facility] MONOCYTES 5 3 - 13 % [facility] EOSINOPHILS 0 0 - 7 % [facility] BASOPHILS 0 0 - 2 % [facility] METAMYELOCYTE 2(H) <=0 % [facility] MYELOCYTES 1(H) <=0 % [facility] PLATELET EST. Consistent w/ count Normal [facility] NEUTROPHIL ABSOLUTE 13.92(H) 1.90 - 7.00 K/uL [facility] LYMPHOCYTE ABSOLUTE 0.80 0.70 - 4.50 K/uL [facility] MONOCYTE ABSOLUTE 0.80 0.10 - 1.30 K/uL [facility] EOSINOPHIL ABSOLUTE 0.00 0.00 - 0.70 K/uL [facility] BASOPHILS ABSOLUTE 0.00 0.00 - 0.20 K/uL [facility] LABORATORY SERVICES - . [facility] ANISOCYTOSIS Slight [facility] LABORATORY SERVICES - . [facility] POIKILOCYTES Slight [facility] LABORATORY SERVICES - [facility] Blood specimen (specimen) 03/02/2012 6:00 AM CDT 03/02/2012 6:13 AM CDT Sierra Yin MD HEMATOLOGY ORDERABLE S [facility] LABORATORY SERVICES [facility] CLIA# [id number] [address] [place] [address] * (ABNORMAL) POC GLUCOSE (03/01/2012 11:48 PM CDT) GLUCOSE POC 256(H) 65 - 99 mg/dL [facility] LABORATORY SERVICES [facility] CLIA LICENSE [id number] [facility] LABORATORY SERVICES [facility] Blood specimen (specimen) 03/01/2012 11:48 PM CDT 03/01/2012 11:48 PM CDT Gladys Calvo MD POINT OF CAR E TESTING Performing Organization Address City/[facility]/ZIP Co de Phone Number [facility] LABORATORY SERVICES [facility] CLIA# [id number] [address] [place] [address] * (ABNORMAL) POC GLUCOSE (03/01/2012 5:38 PM CDT) GLUCOSE POC 298(H) 65 - 99 mg/dL [facility] LABORATORY [facility] CLIA LICENSE [id number] [facility] LABORATORY SERVICES [facility] Blood specimen (specimen) 03/01/2012 5:38 PM CDT 03/01/2012 5:38 PM CDT Gladys Calvo MD POINT OF CAR E TESTING [facility] LABORATORY SERVICES [facility] CLIA# [id number] [address] [place] [address] * CLOSTRIDIUM DIFFICILE TOXIN (03/01/2012 2:51 PM CDT) C DIFF TOXIN PCR RESULT Negative Negative [facility] C DIFF TOXIN PCR SOURCE Stool [facility] LABORATORY [facility] Stool specimen (specimen) 03/01/2012 2:51 PM CDT 03/01/2012 2:55 PM CDT Comment:STOOL Gladys Calvo MD MICROBIOLOGY - GENERAL ORDERABLES Performing Organization Address [facility]/State/ZIP Co de Phone Number [facility] LABORATORY [facility] CLIA# [id number] [address] [place] [address] * (ABNORMAL) POC GLUCOSE (03/01/2012 11:45 AM CDT) GLUCOSE POC 189(H) 65 - 99 mg/dL [facility] CLIA LICENSE [id number] [facility] LABORATORY [facility] Blood specimen (specimen) 03/01/2012 11:45 AM CDT 03/01/2012 11:45 AM CDT Gladys Calvo MD POINT OF CAR E TESTING Performing Organization Address [facility] Co de Phone Number [facility] [employer] [facility] CLIA# [id number] [address] [place] [place] [address] * IP CONSULT TO WOUND CARE (03/01/2012 10:48 AM CDT) Narrative Inez Ho RN - 03/01/2012 10:48 AM CDT Inez Ho RN ? 03/01/2012 10:48 AM Wound Care Consult: ??Pt with history of ulcerative colitis, ??Has apparent anal fissure at left perianal area, ~ 2x0.4x0.2cm, pink and painful. ??Having frequent bowel movements. ??Does get some relief with calmoseptine. ??Would add stoma powder to crust area and protect better, ?? Pt instructed that he can use the stoma powder and calmoseptine as often as he wants/needs to. ??Declined cushion for chair, states he is able to get himself positioned comfortably. ??Notify field operations technician if skin condition deteriorates. ??GI following, ??Surg following. Procedure Note Inez Ho, RN - 03/01/2012 10:41 AM CDT Wound Care Consult: Pt with history of ulcerative colitis, Has apparentanal fissure at left perianal area, ~ 2x0.4x0.2cm, pink and painful.Having frequent bowel movements. Does get some relief with calmoseptine.Would add stoma powder to crust area and protect better, Pt instructedthat he can use the stoma powder and calmoseptine as often as hewants/needs to. Declined cushion for chair, states he is able to gethimself positioned comfortably. Notify field operations technician if skin conditiondeteriorates. GI following, Surg following. Katie Ryan MD INPATIENT CONSULT OR DERABLES * (ABNORMAL) POC GLUCOSE (03/01/2012 5:53 AM CDT) [facility] GLUCOSE POC 229(H) 65 - 99 mg/dL [facility] [employer] [facility] CLIA LICENSE [id number] [facility] [employer] [facility] Blood specimen (specimen) 03/01/2012 5:53 AM CDT 03/01/2012 5:53 AM CDT Sierra Yin MD POINT OF CARE TESTIN G [facility] [employer] [facility]# [id number] [address] [facility] [place] [address] * (ABNORMAL) CBC WITH DIFFERENTIAL (03/01/2012 1:40 AM CDT) [facility] WBC 23.8(H) 4.0 - 9.8 K/uL [facility] [employer] [facility] RBC 3.97(L) 4.50 - 5.40 M/uL [facility] LABORATORY [facility] HEMOGLOBIN 11.5(L) 13.6 - 16.5 g/dL [facility] HEMATOCRIT 34.6(L) 40.0 - 48.0 % [facility] MCV 87.2 82.0 - 99.0 fL [facility] MCH 29.0 27.2 - 32.6 pg [facility] MCHC 33.2 31.5 - 35.5 % [facility] PLATELETS 374(H) 140 - 350 K/uL [facility] MPV 9.1(L) 9.3 - 12.4 fL [facility] RDW 13.6 11.5 - 14.5 % [facility] RDW-STDEV 43.7 37.1 - 48.7 fL [facility] NEUTROPHILS 93(H) 45 - 70 % [facility] LYMPHOCYTES 4(L) 16 - 45 % [facility] MONOCYTES 3 3 - 13 % [facility] EOSINOPHILS 0 0 - 7 % [facility] BASOPHILS 0 0 - 2 % [facility] NEUTROPHIL ABSOLUTE 22.12(H) 1.90 - 7.00 K/uL [facility] LYMPHOCYTE ABSOLUTE 1.07 0.70 - 4.50 K/uL [facility] SERVICES [facility] MONOCYTE ABSOLUTE 0.62 0.10 - 1.30 K/uL [facility] - [facility] EOSINOPHIL ABSOLUTE 0.00 0.00 - 0.70 K/uL [facility] LABORATORY SERVICES [facility] BASOPHILS ABSOLUTE 0.02 0.00 - 0.20 K/uL [facility] - [facility] Blood specimen (specimen) 03/01/2012 1:40 AM CDT 03/01/2012 1:54 AM CDT Katie Ryan MD HEMATOLOGY ORDERABLE S [facility] LABORATORY SERVICES [facility] CLIA# [id number] [address] [place] [address] * (ABNORMAL) COMPREHENSIVE METABOLIC PANEL (03/01/2012 1:40 AM CDT) SODIUM 132(L) 135 - 145 mmol/L [facility] LABORATORY [facility] POTASSIUM 4.5 3.5 - 4.9 mmol/L [facility] LABORATORY [facility] CHLORIDE 96 96 - 108 mmol/L [facility] LABORATORY [facility] CO2 29 22 - 30 mmol/L [facility] LABORATORY [facility] CALCIUM 8.5(L) 8.6 - 10.2 mg/dL [facility] LABORATORY [facility] BUN 18 6 - 20 mg/dL [facility] LABORATORY [facility] CREATININE 0.68 0.67 - 1.17 mg/dL [facility] LABORATORY [facility] GLUCOSE 258(H) 65 - 99 mg/dL [facility] TOTAL PROTEIN 5.7(L) 6.3 - 8.6 g/dL [facility] ALBUMIN 2.7(L) 3.4 - 4.8 g/dL [facility] LABORATORY [facility] BILIRUBIN TOTAL 0.2 0.2 - 1.0 mg/dL [facility] ALKALINE PHOSPHATASE 181(H) 40 - 129 U/L [facility] LABORATORY [facility] AST 31 12 - 38 U/L [facility] LABORATORY [facility] ALT 45(H) 0 - 41 U/L [facility] LABORATORY [facility] GFR, >60 >=60 mL/min/1. 7 sq meter [facility] LABORATORY [facility] GFR >60 >=60 mL/min/1. 7 sq meter [facility] LABORATORY [facility] Comment: GFR is calculated using the IDMS-Traceable Modification of Diet in Renal Disease (MDRD) Study formula and is only valid for patients 18 years or older. Further interpretative information is available in the Laboratory Services Policy Manual on the [facility] Intranet at: [email or web address]/ Blood specimen (specimen) 03/01/2012 1:40 AM CDT 03/01/2012 1:54 AM CDT Katie Ryan MD CHEMISTRY ORDERABLES [facility] [employer] [facility] CLIA# [id number] [address] [place] [address] * (ABNORMAL) C-REACTIVE PROTEIN (03/01/2012 1:40 AM CDT) CRP 4.7(H) 0.0 - 0.8 mg/dL [facility] Blood specimen (specimen) 03/01/2012 1:40 AM CDT 03/01/2012 1:54 AM CDT Katie Ryan MD CHEMISTRY ORDERABLES Performing Organization Address City/[facility]/ZIP Co de Phone Number [facility] [employer] [facility]# [id number] [address] [place] [address] * (ABNORMAL) POC GLUCOSE (03/01/2012 12:11 AM CDT) GLUCOSE POC 231(H) 65 - 99 mg/dL [facility] [employer] [facility] CLIA LICENSE [id number] [facility] [employer] [facility] Blood specimen (specimen) 03/01/2012 12:11 AM CDT 03/01/2012 12:11 AM CDT Sierra Yin MD POINT OF CARE TESTIN G Performing Organization Address City/[facility]/ZIP Co de Phone Number [facility] [employer] [facility] CLIA# [id number] [address] [place] [address] * (ABNORMAL) POC GLUCOSE (02/29/2012 6:04 PM CDT) GLUCOSE POC 240(H) 65 - 99 mg/dL [facility] [employer] [facility] CLIA LICENSE [id number] [facility] [employer] [facility] Blood specimen (specimen) 02/29/2012 6:04 PM CDT 02/29/2012 6:04 PM CDT Sierra Yin MD POINT OF CARE TESTIN G [facility] LABORATORY SERVICES [facility] CLIA# [id number] [address] [place] [address] * (ABNORMAL) POC GLUCOSE (02/29/2012 11:49 AM CDT) GLUCOSE POC 225(H) 65 - 99 mg/dL [facility] LABORATORY [facility] CLIA LICENSE [id number] [facility] LABORATORY SERVICES - [facility] Blood specimen (specimen) 02/29/2012 11:49 AM CDT 02/29/2012 11:49 AM CDT Sierra Yin MD POINT OF CARE TESTIN G [facility] LABORATORY [facility] CLIA# [id number] [address] [place] [address] * (ABNORMAL) POC GLUCOSE (02/29/2012 5:10 AM CDT) GLUCOSE POC 171(H) 65 - 99 mg/dL [facility] LABORATORY [facility] CLIA LICENSE [id number] [facility] LABORATORY SERVICES [facility] Blood specimen (specimen) 02/29/2012 5:10 AM CDT 02/29/2012 5:10 AM CDT Sierra Yin MD POINT OF CARE TESTELIE Barron [facility] LABORATORY [facility]# [id number] [address] [place] [address] * (ABNORMAL) CBC WITH DIFFERENTIAL (02/29/2012 3:00 AM CDT) WBC 26.1(H) 4.0 - 9.8 K/uL [facility] LABORATORY [facility] RBC 4.09(L) 4.50 - 5.40 M/uL [facility] LABORATORY SERVICES [facility] HEMOGLOBIN 12.1(L) 13.6 - 16.5 g/dL [facility] LABORATORY SERVICES [facility] HEMATOCRIT 35.8(L) 40.0 - 48.0 % [facility] MCV 87.5 82.0 - 99.0 fL [facility] MCH 29.6 27.2 - 32.6 pg [facility] MCHC 33.8 31.5 - 35.5 % [facility] PLATELETS 354(H) 140 - 350 K/uL [facility] MPV 9.4 9.3 - 12.4 fL [facility] RDW 13.7 11.5 - 14.5 % [facility] RDW-STDEV 44.0 37.1 - 48.7 fL [facility] NEUTROPHILS 93(H) 45 - 70 % [facility] LYMPHOCYTES 2(L) 16 - 45 % [facility] MONOCYTES 6 3 - 13 % [facility] EOSINOPHILS 0 0 - 7 % [facility] BASOPHILS 0 0 - 2 % [facility] NEUTROPHIL ABSOLUTE 24.23(H) 1.90 - 7.00 K/uL [facility] LYMPHOCYTE ABSOLUTE 0.40(L) 0.70 - 4.50 K/uL [facility] MONOCYTE ABSOLUTE 1.45(H) 0.10 - 1.30 K/uL [facility] EOSINOPHIL ABSOLUTE 0.00 0.00 - 0.70 K/uL [facility] BASOPHILS ABSOLUTE 0.03 0.00 - 0.20 K/uL [facility] Blood specimen (specimen) 02/29/2012 3:00 AM CDT 02/29/2012 5:50 AM CDT Sierra Yin MD HEMATOLOGY ORDERABLE S [facility] LABORATORY SERVICES [facility] CLIA# [id number] [place] [id number] * (ABNORMAL) BASIC METABOLIC PANEL (02/29/2012 3:00 AM CDT) SODIUM 130(L) 135 - 145 mmol/L [facility] POTASSIUM 4.1 3.5 - 4.9 mmol/L [facility] LABORATORY [facility] CHLORIDE 94(L) 96 - 108 mmol/L [facility] CO2 27 22 - 30 mmol/L [facility] CALCIUM 8.6 8.6 - 10.2 mg/dL [facility] BUN 17 6 - 20 mg/dL [facility] CREATININE 0.65(L) 0.67 - 1.17 mg/dL [facility] GLUCOSE 177(H) 65 - 99 mg/dL [facility] GFR, >60 >=60 mL/min/1. 7 sq meter [facility] GFR >60 >=60 mL/min/1. 7 sq meter [facility] Comment: GFR is calculated using the IDMS-Traceable Modification of Diet in Renal Disease (MDRD) Study formula and is only valid for patients 18 years or older. Further interpretative information is available in the Laboratory Services Policy Manual on the [facility] Intranet at: [email or web address]://[email or web address]/ Blood specimen (specimen) 02/29/2012 3:00 AM CDT 02/29/2012 5:50 AM CDT Sierra Yin MD CHEMISTRY ORDERABLES [facility]# [id number] [address] [facility] [place] [address] * (ABNORMAL) POC GLUCOSE (02/29/2012 12:10 AM CDT) GLUCOSE POC 205(H) 65 - 99 mg/dL [facility] CLIA LICENSE [id number] [facility] Blood specimen (specimen) 02/29/2012 12:10 AM CDT 02/29/2012 12:10 AM CDT Sierra Jeliazkova MD POINT OF CARE TESTELIE Barron Performing Organization Address [facility]/ZIP Co de Phone Number [facility] CLIA# [id number] [address] [place] [address] * (ABNORMAL) POC GLUCOSE (02/28/2012 6:08 PM CDT) GLUCOSE POC 218(H) 65 - 99 mg/dL [facility] CLIA LICENSE [id number] [facility] Blood specimen (specimen) 02/28/2012 6:08 PM CDT 02/28/2012 6:08 PM CDT Sierra Yin MD POINT OF CARE DICK Barron Performing Organization Address [facility] Co de Phone Number [id number] [address] [place] [address] * EKG 12-LEAD (02/28/2012 3:53 PM CDT) Narrative Transcriptions St Scanning, Him - 02/28/2012 3:53 PM CDT Sierra Yin MD ECG ORDERABLES * (ABNORMAL) POC GLUCOSE (02/28/2012 12:56 PM CDT) GLUCOSE POC 249(H) 65 - 99 mg/dL [facility] CLIA LICENSE [id number] [facility] Blood specimen (specimen) 02/28/2012 12:56 PM CDT 02/28/2012 12:56 PM CDT Sierra Yin MD POINT OF CARE TESTELIE Barron Performing Organization Address [facility]/ZIP Co de Phone Number [facility] [employer] [facility] CLIA# [id number] [address] [place] [address] * PATHOLOGY (02/28/2012 11:20 AM CDT) SURGICAL PATHOLOGY ?[facility] ?[address] [facility] ? [place], [place] ??[address] ? Patient: ??MUKUL HUBER S ? : ??1970 ? Procedure Date: ??02/28/2012 ? Accession Date: ??02/28/2012 ? Case No: ??[id number] ? Ordering Dr: ??KATIE RYAN ? Case type SW is performed by [facility], [address] [place] [address], ? [place], [place] ??[address]; all other case types are performed by [facility] ? [facility], [address] [place], [place] ??[address] ?SURGICAL PATHOLOGY & NON-GYNECOLOGIC CYTOPATHOLOGY REPORT ? DIAGNOSIS ? SMALL INTESTINE, BIOPSY: ? - ACTIVE DUODENITIS. ? STOMACH, BIOPSY: ? - ACTIVE GASTRITIS (SEE COMMENT). ? SMALL INTESTINE, ILEUM, BIOPSY: ? - ILEITIS WITH CHRONICITY, MODERATE ACTIVITY, AND EROSION. ? SMALL INTESTINE, ILEAL POUCH, BIOPSY: ? - POUCHITIS (ACTIVE ILEITIS WITH CHRONICITY AND EROSION). ? Specimen Description: ? (1) Small bowel biopsy; (2) gastric biopsy; (3) ileum biopsy; (4) pouch ? biopsy. ? Operative Procedure: ? Esophagogastroduodenos copy. ? Patient Information/History/Di agnosis: ? (1) Small bowel Bx. Rule out sprue (chronic diarrhea and/or Fe-deficiency ? anemia); (2) Gastritis; (3) and (4) Acute inflammation. Please help ? characterize. Endoscopic appearance is non-specific. Infectious vs. other. ? History of IBD (ulcerative colitis), status proctocolectomy. ? Crohn s. ? Review original colectomy 2002. ? Gross: ? Receive are four containers labeled Mukul Huber. Received in the first ? container labeled small bowel biopsy are two newman tissue fragments, each ? measuring 0.3 cm in greatest dimension. The specimen is completely ? submitted labeled A1. ? Received in the second container labeled gastric biopsy are five newman ? tissue fragments ranging from 0.2 to 0.3 cm in greatest dimension. The ? specimen is completely submitted labeled B1. ? Received in the third container labeled ileum biopsy are nine newman tissue ? fragments ranging from less than 0.1 to 0.3 cm in greatest dimension. The ? specimen is completely submitted labeled C1. ? Received in the fourth container labeled colon pouch biopsy are five newman ? tissue fragments ranging from less than 0.1 to 0.2 cm in greatest ? dimension. The specimen is completely submitted labeled D1. ? [facility] 02.29.2012 05:10 am ? Microscopic: ? The slides are labeled [id number] and Mukul Huber. ? The small intestinal biopsy consists of duodenal tissue. There are ? collections of neutrophils within the lamina propria and focally ? infiltrating the glandular epithelium. Chronic inflammation is slightly ? increased, but there is no intraepithelial lymphocytosis. Jolynn glands ? are present, confirming duodenal origin. There is no significant villous ? blunting or distortion. ? The stomach biopsy consists of fragments of body mucosa showing mild ? chronic inflammation in the lamina propria. Several isolated collections of ? neutrophils are scattered in the lamina propria, which focally infiltrate ? the glandular epithelium. No mucosal ulceration is seen. There is no ? evidence of intestinal metaplasia, atrophy, or malignancy. An ? immunohistochemical stain for Helicobacter pylori is negative. (See COMMENT ? below.) ? The biopsies from the ileum and ileal pouch consist of multiple fragments ? of ileal mucosa displaying nearly identical features. There is ? architectural distortion evidenced by variable villous blunting, irregular ? crypt alignment, focal drop out, shortened glands and focally branched ? forms. There is also inflammatory chronicity, with lamina propria expansion ? by a full-thickness lymphoplasmacytic infiltrate. Areas of mucosal erosion ? are noted. There is moderate active inflammation, with neutrophils ? scattered in the interstitium and infiltrating the glandular epithelium. No ? definite granulomas are seen. The histologic features in these specimens ? are compatible with active ileitis with chronicity and erosion, and ? pouchitis with erosion, respectively. There is no evidence of dysplasia in ? any of the samples. ? COMMENT: This 41-year-old patient has a history of inflammatory bowel ? disease. Hi is status post proctocolectomy in 2002 ([id number], [id number]). ? The slides from the original colectomy are currently re-reviewed and the ? interpretation of the histologic findings is unchanged from that rendered ? in 2002. The colon is diffusely involved by chronic active colitis, with ? multiple aphthous ulcers and erosions. There is patchy chronic inflammation ? extending through the muscularis propria. Lymphoid aggregates throughout ? the muscularis, however, are not seen. No well-defined epithelioid ? granulomas or skip areas are recognized. The histologic features in the ? colectomy are not entirely specific but favor ulcerative colitis. In the ? current biopsies, distinction between ulcerative colitis and Crohn colitis ? cannot be established with absolute confidence. The pattern of neutrophilic ? inflammation in the gastric biopsy suggests stomach involvement by ? inflammatory bowel disease. This would be more in keeping with Crohn ? disease. Ongoing changes of IBD in the ileum and pouch are also concerning ? for Crohn disease. However, a definitive diagnosis based on histology alone ? is not possible. This case was shown at the intradepartmental slide review ? conference, and there was agreement with the interpretation. ? Note on use of immunocytochemistry reagents: This test was developed and ? its performance characteristic determined by [facility], ? Department of Laboratory Medicine. It has not been cleared or approved by ? the U.S. Food and Drug Administration. The FDA has determined that such ? clearance or approval is not necessary. The test is used for clinical ? purpose. It should not be regarded as investigational or for research. This ? laboratory is certified to perform high complexity clinical testing. ? GL/NUNU 03.01.2012 02:57 pm ? Staging Form: ? No. ? ELECTRONIC SIGNATURE FOR LUIS EVANS M.D.- 03/01/12 03:15 pm [facility] 02/28/2012 11:2 0 AM CDT Katie Ryan MD PATHOLOGY/CYTOLOGY O RDERABLES Performing Organization Address [facility]/ZIP Co de Phone Number [facility]# [id number] [address] [place] [address] * (ABNORMAL) POC GLUCOSE (02/28/2012 5:58 AM CDT) GLUCOSE POC 189(H) 65 - 99 mg/dL [facility] CLIA LICENSE [id number] [facility] Blood specimen (specimen) 02/28/2012 5:58 AM CDT 02/28/2012 5:58 AM CDT Sierra Yin MD POINT OF CARE TESTIN G Performing Organization Address [facility]/ZIP Co de Phone Number [facility]# [id number] [address] [place] [address] * (ABNORMAL) C-REACTIVE PROTEIN (02/28/2012 4:35 AM CDT) CRP 8.8(H) 0.0 - 0.8 mg/dL [facility] LABORATORY SERVICES [facility] Blood specimen (specimen) 02/28/2012 4:35 AM CDT 02/28/2012 9:33 AM CDT Sierra Yin MD CHEMISTRY ORDERABLES [facility]ORATORY SERVICES [facility] CLIA# [id number] [address] [facility] [address] * (ABNORMAL) COMPREHENSIVE METABOLIC PANEL (02/28/2012 4:35 AM CDT) Pathologist [facility] SODIUM 133(L) 135 - 145 mmol/L [facility] LABORATORY SERVICES [facility] POTASSIUM 4.4 3.5 - 4.9 mmol/L [facility] LABORATORY SERVICES [facility] CHLORIDE 95(L) 96 - 108 mmol/L [facility] LABORATORY SERVICES [facility] CO2 28 22 - 30 mmol/L [facility] LABORATORY [facility] CALCIUM 8.8 8.6 - 10.2 mg/dL [facility] LABORATORY SERVICES [facility] BUN 18 6 - 20 mg/dL [facility] CREATININE 0.70 0.67 - 1.17 mg/dL [facility] GLUCOSE 160(H) 65 - 99 mg/dL [facility] TOTAL PROTEIN 6.4 6.3 - 8.6 g/dL [facility] LABORATORY [facility] ALBUMIN 3.0(L) 3.4 - 4.8 g/dL [facility] SERVICES [facility] BILIRUBIN TOTAL 0.3 0.2 - 1.0 mg/dL [facility] LABORATORY SERVICES [facility] ALKALINE PHOSPHATASE 200(H) 40 - 129 U/L [facility] LABORATORY SERVICES [facility] AST 28 12 - 38 U/L [facility] LABORATORY SERVICES [facility]. [facility] ALT 61(H) 0 - 41 U/L [facility] LABORATORY SERVICES [facility] GFR, >60 >=60 mL/min/1. 7 sq meter [facility]ORATORY SERVICES [facility] GFR >60 >=60 mL/min/1. 7 sq meter [facility] [employer] [facility] Comment: GFR is calculated using the IDMS-Traceable Modification of Diet in Renal Disease (MDRD) Study formula and is only valid for patients 18 years or older. Further interpretative information is available in the Laboratory Services Policy Manual on the [facility] Intranet at: [email or web address] [email or web address].[email or web address] physicians medical centerRocketboomselect medical [facility]health rehabilitation hospital.[facility]/ Blood specimen (specimen) 02/28/2012 4:35 AM CDT 02/28/2012 4:58 AM CDT Sierra Yin MD CHEMISTRY ORDERABLES [facility] LABORATORY [facility] CLIA# [id number] [address] [facility] [place] [address] * (ABNORMAL) CBC WITH MANUAL DIFFERENTIAL (02/28/2012 4:35 AM CDT) WBC 21.2(H) 4.0 - 9.8 K/uL [facility] LABORATORY SERVICES [facility] RBC 4.35(L) 4.50 - 5.40 M/uL [facility] LABORATORY [facility] HEMOGLOBIN 12.9(L) 13.6 - 16.5 g/dL [facility] LABORATORY [facility] HEMATOCRIT 37.8(L) 40.0 - 48.0 % [facility] LABORATORY [facility] MCV 86.9 82.0 - 99.0 fL [facility] LABORATORY [facility] MCH 29.7 27.2 - 32.6 pg [facility] LABORATORY SERVICES [facility] MCHC 34.1 31.5 - 35.5 % [facility] LABORATORY [facility] PLATELETS 347 140 - 350 K/uL [facility] LABORATORY [facility] MPV 9.6 9.3 - 12.4 fL [facility] LABORATORY [facility] RDW 13.6 11.5 - 14.5 % [facility] LABORATORY SERVICES [facility] RDW-STDEV 43.2 37.1 - 48.7 fL [facility] LABORATORY [facility] NEUTROPHILS 87(H) 45 - 70 % [facility] LABORATORY SERVICES [facility] LYMPHOCYTES 3(L) 16 - 45 % [facility] MONOCYTES 10 3 - 13 % [facility] EOSINOPHILS 0 0 - 7 % [facility] BASOPHILS 0 0 - 2 % [facility] NEUTROPHIL ABSOLUTE 18.56(H) 1.90 - 7.00 K/uL [facility] - . [facility] LYMPHOCYTE ABSOLUTE 0.60(L) 0.70 - 4.50 K/uL [facility] . [facility] MONOCYTE ABSOLUTE 2.03(H) 0.10 - 1.30 K/uL [facility] EOSINOPHIL ABSOLUTE 0.01 0.00 - 0.70 K/uL [facility] BASOPHILS ABSOLUTE 0.04 0.00 - 0.20 K/uL [facility] Blood specimen (specimen) 02/28/2012 4:35 AM CDT 02/28/2012 4:58 AM CDT Sierra Yin MD HEMATOLOGY ORDERABLE S Performing Organization Address City/[facility]/ZIP Co de Phone Number [facility] LABORATORY [facility] CLIA# [id number] [address] [place] [address] * (ABNORMAL) POC GLUCOSE (02/28/2012 12:41 AM CDT) GLUCOSE POC 394(H) 65 - 99 mg/dL [facility]ATORY [facility] CLIA LICENSE [id number] [facility] LAB[facility]ATORY [facility] Blood specimen (specimen) 02/28/2012 12:41 AM CDT 02/28/2012 12:41 AM CDT Sierra Yin MD POINT OF CARE TESTIN G Performing Organization Address [facility]/ZIP Co de Phone Number [facility]ATORY [facility] CLIA# [id number] [address] [facility] [place] [address] * (ABNORMAL) POC GLUCOSE (02/27/2012 5:37 PM CDT) GLUCOSE POC 221(H) 65 - 99 mg/dL [facility] LABORATORY [facility] CLIA LICENSE [id number] [facility] LABORATORY SERVICES [facility] Blood specimen (specimen) 02/27/2012 5:37 PM CDT 02/27/2012 5:37 PM CDT Sierra Yin MD POINT OF CARE TESTIN G Performing Organization Address City/[facility]/ZIP Co de Phone Number [facility] LAB[facility]AT[facility] CLIA# [id number] [address] [facility] [place] [address] * (ABNORMAL) POC GLUCOSE (02/27/2012 1:46 PM CDT) GLUCOSE POC 286(H) 65 - 99 mg/dL [facility] LABORATORY [facility] CLIA LICENSE [id number] [facility] LABORATORY SERVICES [facility] Blood specimen (specimen) 02/27/2012 1:46 PM CDT 02/27/2012 1:46 PM CDT Sierra Yin MD POINT OF CARE TESTIN G Performing Organization Address [facility] Co de Phone Number [facility]ATORY [facility] [id number] [address] [facility] [place] [address] * (ABNORMAL) COMPREHENSIVE METABOLIC PANEL (02/27/2012 6:05 AM CDT) SODIUM 131(L) 135 - 145 mmol/L [facility] LABORATORY SERVICES [facility] POTASSIUM 3.9 3.5 - 4.9 mmol/L [facility] LABORATORY SERVICES - [facility] CHLORIDE 93(L) 96 - 108 mmol/L [facility] LABORATORY SERVICES [facility] CO2 25 22 - 30 mmol/L [facility] LABORATORY SERVICES [facility] CALCIUM 8.7 8.6 - 10.2 mg/dL [facility] LABORATORY SERVICES - . [facility] BUN 15 6 - 20 mg/dL [facility] LABORATORY SERVICES [facility]. [facility] CREATININE 0.87 0.67 - 1.17 mg/dL [facility] LABORATORY SERVICES [facility] GLUCOSE 203(H) 65 - 99 mg/dL [facility] LABORATORY SERVICES [facility] TOTAL PROTEIN 6.9 6.3 - 8.6 g/dL [facility] LABORATORY [facility] ALBUMIN 3.1(L) 3.4 - 4.8 g/dL [facility] BILIRUBIN TOTAL 0.3 0.2 - 1.0 mg/dL [facility] ALKALINE PHOSPHATASE 214(H) 40 - 129 U/L [facility] LABORATORY [facility] AST 31 12 - 38 U/L [facility] ALT 55(H) 0 - 41 U/L [facility] LABORATORY [facility] GFR, >60 >=60 mL/min/1. 7 sq meter [facility] LABORATORY [facility] GFR >60 >=60 mL/min/1. 7 sq meter [facility] LABORATORY [facility] Comment: GFR is calculated using the IDMS-Traceable Modification of Diet in Renal Disease (MDRD) Study formula and is only valid for patients 18 years or older. Further interpretative information is available in the Laboratory Services Policy Manual on the [facility] Intranet at: [email or web address]/ Blood specimen (specimen) 02/27/2012 6:05 AM CDT 02/27/2012 6:12 AM CDT Katie Ryan MD CHEMISTRY ORDERABLES [facility] CLIA# [id number] [address] [place] [address] * (ABNORMAL) C-REACTIVE PROTEIN (02/27/2012 6:05 AM CDT) CRP 13.2(H) 0.0 - 0.8 mg/dL [facility] Blood specimen (specimen) 02/27/2012 6:05 AM CDT 02/27/2012 6:12 AM CDT Katie Ryan MD CHEMISTRY ORDERABLES [facility] CLIA# [id number] [address] [place] [address] * PHOSPHORUS (02/27/2012 6:05 AM CDT) PHOSPHORUS 4.5 2.5 - 4.5 mg/dL [facility] Blood specimen (specimen) 02/27/2012 6:05 AM CDT 02/27/2012 6:12 AM CDT Sierra Yin MD CHEMISTRY ORDERABLES Performing Organization Address City/[facility]/ZIP Co de Phone Number [facility] CLAR# [id number] [address] [place] [address] * MAGNESIUM LEVEL (02/27/2012 6:05 AM CDT) Pathologist [facility] MAGNESIUM 2.5 1.5 - 2.5 mg/dL [facility] Blood specimen (specimen) 02/27/2012 6:05 AM CDT 02/27/2012 6:12 AM CDT Sierra Yin MD CHEMISTRY ORDERABLES Performing Organization Address [facility] Co de Phone Number [facility] CLIA# [id number] [address] [place] [address] * (ABNORMAL) C-REACTIVE PROTEIN (02/26/2012 6:20 AM CDT) Pathologist [facility] CRP 18.0(H) 0.0 - 0.8 mg/dL [facility] Blood specimen (specimen) 02/26/2012 6:20 AM CDT 02/26/2012 6:32 AM CDT Katie Ryan MD CHEMISTRY ORDERABLES Performing Organization Address [facility] Co de Phone Number [facility] CLIA# [id number] [address] [place] [address] * (ABNORMAL) CBC WITH DIFFERENTIAL (02/26/2012 6:20 AM CDT) Pathologist [facility] WBC 20.5(H) 4.0 - 9.8 K/uL [facility] RBC 3.99(L) 4.50 - 5.40 M/uL [facility] HEMOGLOBIN 11.4(L) 13.6 - 16.5 g/dL [facility] HEMATOCRIT 34.4(L) 40.0 - 48.0 % [facility] MCV 86.2 82.0 - 99.0 fL [facility] MCH 28.6 27.2 - 32.6 pg [facility] MCHC 33.1 31.5 - 35.5 % [facility] RDW 13.4 11.5 - 14.5 % [facility] . [facility] RDW-STDEV 42.5 37.1 - 48.7 fL [facility] NEUTROPHILS, SEG 89(H) 45 - 70 % [facility] - . [facility] BANDS 8(H) 0 - 5 % [facility] . [facility] LYMPHOCYTES 1(L) 16 - 45 % [facility] . [facility] MONOCYTES 1(L) 3 - 13 % [facility] . [facility] EOSINOPHILS 0 0 - 7 % [facility] . [facility] BASOPHILS 0 0 - 2 % [facility] - . [facility] MYELOCYTES 1(H) <=0 % [facility] PLATELET EST. Consistent w/ count Normal [facility] . [facility] NEUTROPHIL ABSOLUTE 19.88(H) 1.90 - 7.00 K/uL [facility] - . [facility] LYMPHOCYTE ABSOLUTE 0.20(L) 0.70 - 4.50 K/uL [facility] - . [facility] MONOCYTE ABSOLUTE 0.20 0.10 - 1.30 K/uL [facility] EOSINOPHIL ABSOLUTE 0.00 0.00 - 0.70 K/uL [facility] BASOPHILS ABSOLUTE 0.00 0.00 - 0.20 K/uL [facility] ANISOCYTOSIS Slight [facility] POIKILOCYTES Slight [facility] REVIEWED ON SMEAR WBC & Plt Reviewed [facility] PLATELETS 319 140 - 350 K/uL [facility] [employer] [facility] Comment:WBC and Platelets ve rified by smear review. MPV 9.5 9.3 - 12.4 fL [facility] Blood specimen (specimen) 02/26/2012 6:20 AM CDT 02/26/2012 6:32 AM CDT Katie Ryan MD HEMATOLOGY ORDERABLE S [facility] CLIA# [id number] [address] [place] [place] [address] * SKIN TEST TB (02/26/2012) PPD REACTION PPD MILLIMETERS INDURATION mm Skin (tissue) specimen (specimen) Sierra Yin MD IMMUNIZATION ORDERAB LES * XR CERVICAL SPINE 2 OR 3 VW (02/25/2012 11:11 AM CDT) Anatomical Region Laterality Modality Spine Computed Radiogr aphy 02/25/2012 11:1 1 AM CDT Impressions 02/25/2012 4:10 PM CDT IMPRESSION: 1. No acute abnormality identified. 2. The C7-T1 junction is not visualized. Narrative 02/25/2012 4:10 PM CDT XR CERVICAL SPINE 2 OR 3 VIEWS ??February 25, 2012 11:11:00 AM INDICATION: Neck pain TECHNIQUE: 3 views of cervical spine submitted for interpretation LIMITATIONS: C7-T1 junction is not visualized COMPARISON: None. ?? FINDINGS: The cervical spine is visualized from C1 through C7. Note that the C7-T1 junction is not visualized. No acute fractures, dislocations or subluxations identified. The prevertebral soft tissues are unremarkable. There is an irregularity of the anterior-inferior aspect of the C5 vertebral body with well-corticated margins and no overlying soft tissue swelling likely related to degenerative changes. Procedure Note Anthony Polanco MD - 02/25/2012 XR CERVICAL SPINE 2 OR 3 VIEWS February 25, 2012 11:11:00 AM INDICATION: Neck pain TECHNIQUE: 3 views of cervical spine submitted for interpretation LIMITATIONS: C7-T1 junction is not visualized COMPARISON: None. FINDINGS: The cervical spine is visualized from C1 through C7. Note that the C7-T1 junction is not visualized. No acute fractures, dislocations or subluxations identified. The prevertebral soft tissues are unremarkable. There is an irregularity of the anterior-inferior aspect of the C5 vertebral body with well-corticated margins and no overlying soft tissue swelling likely related to degenerative changes. IMPRESSION IMPRESSION: 1. No acute abnormality identified. 2. The C7-T1 junction is not visualized. Sierra Yin MD DIAGNOSTIC IMAGING O RDERABLES * (ABNORMAL) CBC WITH DIFFERENTIAL (02/25/2012 6:10 AM CDT) WBC 18.5(H) 4.0 - 9.8 K/uL [employer] [facility] RBC 4.20(L) 4.50 - 5.40 M/uL [employer] [facility] HEMOGLOBIN 12.3(L) 13.6 - 16.5 g/dL [employer] [facility] SERVICES [facility] HEMATOCRIT 36.6(L) 40.0 - 48.0 % [employer] [facility] SERVICES [facility] MCV 87.1 82.0 - 99.0 fL [employer] [facility] SERVICES [facility] MCH 29.3 27.2 - 32.6 pg [employer] [facility] SERVICES [facility] MCHC 33.6 31.5 - 35.5 % [employer] [facility] PLATELETS 316 140 - 350 K/uL [employer] [facility] MPV 9.5 9.3 - 12.4 fL [employer] [facility] RDW 13.5 11.5 - 14.5 % [facility] RDW-STDEV 43.1 37.1 - 48.7 fL [employer] [facility] SERVICES [facility] NEUTROPHILS 87(H) 45 - 70 % [facility] LYMPHOCYTES 2(L) 16 - 45 % [employer] MONOCYTES 10 3 - 13 % [employer] EOSINOPHILS 0 0 - 7 % [employer] [facility] SERVICES [facility] BASOPHILS 0 0 - 2 % [facility] NEUTROPHIL ABSOLUTE 16.08(H) 1.90 - 7.00 K/uL [facility] LYMPHOCYTE ABSOLUTE 0.47(L) 0.70 - 4.50 K/uL [facility] MONOCYTE ABSOLUTE 1.88(H) 0.10 - 1.30 K/uL [facility] EOSINOPHIL ABSOLUTE 0.00 0.00 - 0.70 K/uL [facility] BASOPHILS ABSOLUTE 0.03 0.00 - 0.20 K/uL [employer] SERVICES [facility] Blood specimen (specimen) 02/25/2012 6:10 AM CDT 02/25/2012 6:41 AM CDT Sierra Yin MD HEMATOLOGY ORDERABLE S [id number] [address] [facility] [place] [address] * (ABNORMAL) COMPREHENSIVE METABOLIC PANEL (02/25/2012 6:10 AM CDT) SODIUM 130(L) 135 - 145 mmol/L [facility] LABORATORY SERVICES [facility] POTASSIUM 4.4 3.5 - 4.9 mmol/L [facility] LABORATORY SERVICES [facility] CHLORIDE 95(L) 96 - 108 mmol/L [facility] LABORATORY SERVICES [facility] CO2 24 22 - 30 mmol/L [facility] LABORATORY SERVICES [facility] CALCIUM 9.2 8.6 - 10.2 mg/dL [facility] LAB[facility]AT[facility] SERVICES [facility]. [facility] BUN 8 6 - 20 mg/dL [facility] SERVICES [facility]. [facility] CREATININE 0.85 0.67 - 1.17 mg/dL [facility] GLUCOSE 118(H) 65 - 99 mg/dL [facility] TOTAL PROTEIN 6.7 6.3 - 8.6 g/dL [facility] ALBUMIN 3.2(L) 3.4 - 4.8 g/dL [facility] BILIRUBIN TOTAL 0.5 0.2 - 1.0 mg/dL [facility] ALKALINE PHOSPHATASE 78 40 - 129 U/L [facility] LABORATORY SERVICES [facility] AST 14 12 - 38 U/L [facility] LABORATORY SERVICES - [facility] ALT 16 0 - 41 U/L [facility] LABORATORY [facility] GFR, >60 >=60 mL/min/1. 7 sq meter [facility] LABORATORY SERVICES - [facility] GFR >60 >=60 mL/min/1. 7 sq meter [facility] LABORATORY SERVICES [facility] Comment: GFR is calculated using the IDMS-Traceable Modification of Diet in Renal Disease (MDRD) Study formula and is only valid for patients 18 years or older. Further interpretative information is available in the Laboratory Services Policy Manual on the [facility] Intranet at: [email or web address]/ Blood specimen (specimen) 02/25/2012 6:10 AM CDT 02/25/2012 6:41 AM CDT Sierra Yin MD CHEMISTRY ORDERABLES [facility] LABORATORY SERVICES [facility] CLIA# [id number] [address] [address] * XR CHEST PA OR AP (02/24/2012 3:25 PM CDT) Anatomical Region Laterality Modality Chest Computed Radiogr aphy 02/24/2012 3:20 PM CDT Impressions 02/24/2012 3:35 PM CDT IMPRESSION: No acute disease Narrative 02/24/2012 3:35 PM CDT EXAM: ??AP ERECT PORTABLE CHEST of ??February 24, 2012 03:25:21 PM HISTORY: ?? Line Placement FINDINGS: ?? Since a previous examination of February 23 earlier, a central line has been placed with its tip overlying the superior vena cava. The lungs are clear. ??There is no pneumothorax. The heart size is within normal limits. Procedure Note Denia Julian MD - 02/24/2012 EXAM: AP ERECT PORTABLE CHEST of February 24, 2012 03:25:21 PM HISTORY: Line Placement FINDINGS: Since a previous examination of February 23 earlier, a central line has been placed with its tip overlying the superior vena cava. The lungs are clear. There is no pneumothorax. The heart size is within normal limits. IMPRESSION IMPRESSION: No acute disease Sierra Yin MD DIAGNOSTIC IMAGING O RDERABLES * IR VENOUS ACCESS (02/24/2012 3:15 PM CDT) Anatomical Region Laterality Modality X-Ray Angiograph y Narrative 02/24/2012 3:16 PM CDT Order information only. ??Exam was auto-finalized. ?? Procedure Note Magy Short RN - 02/24/2012 Order information only. Exam was auto-finalized. Sierra Yin MD IR ORDERABLES * IP CONSULT TO NUTRITION SERVICES (02/24/2012 3:10 PM CDT) Narrative Naomie Blum RD - 02/24/2012 3:10 PM CDT [address]omie Blum RD ? 02/24/2012 ??3:10 PM Nutrition Consult:assessment A: Ht: 5'9 Wt: 166# Br: 20 BM: 02/23 Skin: intact Labs:Na 128, gluc 114 Diet: CLD PO:80-100% Nutritional Needs: 1875-2250kcals (25-30kcals/kg) and 90-112g pro (1.2-1.5g pro/kg) Fluid needs: 1900-2300ml Pt not tolerating diet. He said had emesis with dinner. He states tolerating CLD but cannot get adequate nutrition with this. He leary of the CLD supplements. Encouraged pt to try them. He said wt has been stable and 166# is around UBW for him. D: Inadequate oral intake r/t n/v as evidence by vomiting/unable to tolerate diet I: Nutrition Prescription:CLD Nutrition Intervention:REC: TPN: 95g AA, 300g Dex (2.7 glucose infusion rate) and 60g Lipid (2000kcals) Electrolytes per MD. M/E: 1.will monitor po, wt, labs, skin 2.f/u q4days/PRN Procedure Note Naomie Blum RD - 02/24/2012 3:10 PM CDT Nutrition Consult:assessment A: Ht: 5'9 Wt: 166# Br: 20 BM: 02/23 Skin: intact Labs:Na 128, gluc 114 Diet: CLD PO:80-100% Nutritional Needs: 1875-2250kcals (25-30kcals/kg) and 90-112g pro(1.2-1.5g pro/kg) Fluid needs: 1900-2300ml Pt not tolerating diet. He said had emesis with dinner. He statestolerating CLD but cannot get adequate nutrition with this. He leary ofthe CLD supplements. Encouraged pt to try them. He said wt has been stable and 166# is around UBW for him. D: Inadequate oral intake r/t n/v as evidence by vomiting/unable totolerate diet I: Nutrition Prescription:CLD Nutrition Intervention:REC: TPN: 95g AA, 300g Dex (2.7 glucose infusionrate) and 60g Lipid (2000kcals) Electrolytes per MD. M/E: 1.will monitor po, wt, labs, skin 2.f/u q4days/PRN Sierra Yin MD INPATIENT CONSULT OR DERABLES * IP CONSULT TO NUTRITION SERVICES (02/24/2012 12:31 PM CDT) Narrative Naomie Blum RD - 02/24/2012 12:31 PM CDT Naomie Blum RD ? 02/24/2012 12:31 PM Nutrition Consult:assessment A: Ht: ??5'9 ? Wt: 166# ? Br: ??20 ? BM: 02/23 ?Skin: intact Labs:Na 128, gluc 114 Diet: CLD ?PO:80-100% Nutritional Needs: 1875-2250kcals (25-30kcals/kg) and 90-112g pro (1.2-1.5g pro/kg) Fluid needs: 1900-2300ml Pt not tolerating diet. He said had emesis with dinner. He states tolerating CLD but cannot get adequate nutrition with this. He leary of the CLD supplements. Encouraged pt to try them. He said wt has been stable and 166# is around UBW for him. D: Inadequate oral intake r/t n/v as evidence by vomiting/unable to tolerate diet I: Nutrition Prescription:CLD Nutrition Intervention:REC: TPN: 95g AA, 300g Dex (2.7 glucose infusion rate) and 60g Lipid (2000kcals) Electrolytes per . M/E: 1.will monitor po, wt, labs, skin 2.f/u q4days/PRN Procedure Note Naomie Blum, RD - 02/24/2012 12:24 PM CDT Nutrition Consult:assessment A: Ht: 5'9 Wt: 166# Br: 20 BM: 02/23 Skin: intact Labs:Na 128, gluc 114 Diet: CLD PO:80-100% Nutritional Needs: 1875-2250kcals (25-30kcals/kg) and 90-112g pro(1.2-1.5g pro/kg) Fluid needs: 1900-2300ml Pt not tolerating diet. He said had emesis with dinner. He statestolerating CLD but cannot get adequate nutrition with this. He leary ofthe CLD supplements. Encouraged pt to try them. He said wt has been stable and 166# is around UBW for him. D: Inadequate oral intake r/t n/v as evidence by vomiting/unable totolerate diet I: Nutrition Prescription:CLD Nutrition Intervention:REC: TPN: 95g AA, 300g Dex (2.7 glucose infusionrate) and 60g Lipid (2000kcals) Electrolytes per . M/E: 1.will monitor po, wt, labs, skin 2.f/u q4days/PRN Sierra Yin MD INPATIENT CONSULT OR DERABLES * XR CHEST PA OR AP (02/24/2012 8:01 AM CDT) Anatomical Region Laterality Modality Chest Computed Radiogr aphy 02/24/2012 7:15 AM CDT Impressions 02/24/2012 8:31 AM CDT IMPRESSION: No acute disease Narrative 02/24/2012 8:31 AM CDT EXAM: ??AP SEMIERECT PORTABLE CHEST of ??February 24, 2012 08:02:15 AM HISTORY: ?? Chronic Cough FINDINGS: ??There has been no change since a previous examination of February 23, 2012. The lungs are clear. ??There is no pneumothorax. The heart size is within normal limits. Procedure Note Denia Julian MD - 02/24/2012 EXAM: AP SEMIERECT PORTABLE CHEST of February 24, 2012 08:02:15 AM HISTORY: Chronic Cough FINDINGS: There has been no change since a previous examination of February 23, 2012. The lungs are clear. There is no pneumothorax. The heart size is within normal limits. IMPRESSION IMPRESSION: No acute disease Sierra Yin MD DIAGNOSTIC IMAGING O RDERABLES * (ABNORMAL) PREALBUMIN (02/24/2012 4:40 AM CDT) PREALBUMIN 14(L) 20 - 40 mg/dL [facility] LABORATORY [facility] Blood specimen (specimen) 02/24/2012 4:40 AM CDT 02/24/2012 11:24 AM CDT Narrative [facility] LABORATORY [facility] - 02/24/2012 11:36 AM CDT Blood in lab Sierra Yin MD CHEMISTRY ORDERABLES Performing Organization Address City/[facility]/ZIP Co de Phone Number [facility] LABORATORY [facility] CLIA# [id number] [address] [facility] [place] [address] * TSH REFLEXIVE (02/24/2012 4:40 AM CDT) TSH 0.30 0.27 - 4.20 uU/mL [facility] LABORATORY [facility] Blood specimen (specimen) 02/24/2012 4:40 AM CDT 02/24/2012 9:18 AM CDT Sierra Yin MD CHEMISTRY ORDERABLES Performing Organization Address City/[facility]/ZIP Co de Phone Number [facility] LABORATORY [facility] CLIA# [id number] [address] [facility] [place] [address] * (ABNORMAL) CBC WITH DIFFERENTIAL (02/24/2012 4:40 AM CDT) [facility] WBC 10.6(H) 4.0 - 9.8 K/uL [employer] [facility] SERVICES - [facility] RBC 4.60 4.50 - 5.40 M/uL [employer] [facility] - [facility] HEMOGLOBIN 13.2(L) 13.6 - 16.5 g/dL [facility] SERVICES [facility] HEMATOCRIT 40.0 40.0 - 48.0 % [facility] MCV 87.0 82.0 - 99.0 fL [employer] [facility] SERVICES - [facility] MCH 28.7 27.2 - 32.6 pg [employer] [facility] - [facility] MCHC 33.0 31.5 - 35.5 % [facility]ATORY SERVICES [facility] PLATELETS 370(H) 140 - 350 K/uL [employer] [facility]ORATORY SERVICES [facility] MPV 9.8 9.3 - 12.4 fL [employer] LABORATORY SERVICES [facility] RDW 13.3 11.5 - 14.5 % [employer] [facility] - [facility] RDW-STDEV 42.5 37.1 - 48.7 fL [employer] [facility] - [facility] NEUTROPHILS 84(H) 45 - 70 % [employer] [facility] - [facility] LYMPHOCYTES 4(L) 16 - 45 % [employer] [facility] - [facility] MONOCYTES 11 3 - 13 % [facility] EOSINOPHILS 0 0 - 7 % [facility] BASOPHILS 0 0 - 2 % [facility] NEUTROPHIL ABSOLUTE 8.90(H) 1.90 - 7.00 K/uL [facility] SERVICES [facility] LYMPHOCYTE ABSOLUTE 0.48(L) 0.70 - 4.50 K/uL [employer]ATORY SERVICES [facility] MONOCYTE ABSOLUTE 1.17 0.10 - 1.30 K/uL [employer] [facility] - [facility] EOSINOPHIL ABSOLUTE 0.05 0.00 - 0.70 K/uL [employer] [facility] - . [facility] BASOPHILS ABSOLUTE 0.02 0.00 - 0.20 K/uL [facility] Blood specimen (specimen) 02/24/2012 4:40 AM CDT 02/24/2012 5:12 AM CDT Sierra Yin MD HEMATOLOGY ORDERABLE S [facility] [employer]# [id number] [address] [place] [address] * (ABNORMAL) INFLAMMATORY BOWEL DISEASE PANEL (02/24/2012 4:40 AM CDT) [facility] Signature IBD PANEL INTEPRETATION Pattern Consistent with IBD: Ulcerative Colitis [facility] Comment: Patient test results are based on the Smart Diagnostic Algorithm which interprets complex patterns among assay values from a combination of serologic, genetic, and inflammatory markers. ?? This test was developed and its performance characteristics determined by [employer]. ??It has not been cleared or approved by the U.S. Food and Drug Administration. ?? Test performed by [employer], [address] [place] [address], [place] [address] SACCHAROMYCES CEREVISIAE IGA <3.1 <=8.4 EU/mL [facility] SACCHAROMYCES CEREVISIAE IGG <3.1 <=17.7 EU/mL [facility] IBD OMPC AB <3.1 <=10.8 EU/mL [facility] IBD CBIR1 AB 19.8 <=78.3 EU/mL [facility] [id number] IgG 12.8 <=44.7 EU/mL [facility] Anti-FlaX IgG 16.9 <=33.3 EU/mL [facility] IBD PANCA AUTO AB 76.7(H) <=19.7 EU/mL [facility] IBD PANCA PERINUCLEAR PATTERN Detected(A) Not Detected [facility] IBD PANCA DNASE SENSITIVITY DNAse Sensitive(A) Not Detected [facility] [id number] Heterozygous A/G(A) No Mutation Detected [facility] Comment:Tested SNP location is [id number] No Mutation Detected No Mutation Detected [facility] Comment:Tested SNP location is [id number] No Mutation Detected No Mutation Detected [facility] Comment:Tested SNP location is [id number] Mutation Detected Mutation Detected [facility] LABORATORY SERVICES [facility] Comment:Tested SNP location is [id number]-1 0.73(H) <=0.53 ug/mL [facility] - [facility] VCAM-1 0.92(H) <=0.67 ug/mL [facility] - [facility] VEGF 1354(H) <=344 pg/mL [facility] LABORATORY SERVICES - [facility] CRP, Ref Lab 168.4(H) <=13.1 mg/L [facility] SERVICES - [facility] ROBERT >181.6(H) <=10.8 mg/L [facility] - [facility] Blood specimen (specimen) 02/24/2012 4:40 AM CDT 02/24/2012 5:12 AM CDT Sierra Yin MD CHEMISTRY ORDERABLES Performing Organization Address [facility] Co de Phone Number [facility] LABORATORY SERVICES [facility] CLIA# [id number] [address] [facility] [place] [address] * (ABNORMAL) C-REACTIVE PROTEIN (02/24/2012 4:40 AM CDT) Pathologist [facility] CRP 16.3(H) 0.0 - 0.8 mg/dL [facility] LABORATORY SERVICES [facility] Blood specimen (specimen) 02/24/2012 4:40 AM CDT 02/24/2012 5:12 AM CDT Sierra Yin MD CHEMISTRY ORDERABLES Performing Organization Address [facility] Co de Phone Number [facility] LABORATORY [facility] CLIA# [id number] [address] [facility] [facility] [place] [address] * (ABNORMAL) BASIC METABOLIC PANEL (02/24/2012 4:40 AM CDT) Pathologist [facility] SODIUM 128(L) 135 - 145 mmol/L [facility] LABORATORY SERVICES [facility] POTASSIUM 4.8 3.5 - 4.9 mmol/L [facility] SERVICES [facility] CHLORIDE 96 96 - 108 mmol/L [facility] CO2 26 22 - 30 mmol/L [facility] LABORATORY [facility] CALCIUM 8.6 8.6 - 10.2 mg/dL [facility] LABORATORY [facility] BUN 12 6 - 20 mg/dL [facility] CREATININE 0.94 0.67 - 1.17 mg/dL [facility] LABORATORY [facility] GLUCOSE 114(H) 65 - 99 mg/dL [facility] GFR, >60 >=60 mL/min/1. 7 sq meter [facility] LABORATORY [facility] GFR >60 >=60 mL/min/1. 7 sq meter [facility] LABORATORY [facility] Comment: GFR is calculated using the IDMS-Traceable Modification of Diet in Renal Disease (MDRD) Study formula and is only valid for patients 18 years or older. Further interpretative information is available in the Laboratory Services Policy Manual on the [facility] Intranet at: [email or web address]/ Blood specimen (specimen) 02/24/2012 4:40 AM CDT 02/24/2012 5:12 AM CDT Sierra Yin MD CHEMISTRY ORDERABLES [facility] LABORATORY [facility]# [id number] [address] [place] [address] * IP CONSULT TO GI (02/23/2012 9:34 PM CDT) Narrative [facility] - 02/23/2012 9:34 PM CDT Trevor Toledo MD ? 02/23/2012 ??5:47 PM Admit Date: 02/22/2012 Hospital day: ??LOS: 1 day Physician requesting Consult: Reason for consult: Pouchitis. NOTTAWASEPPI POTAWATOMI Patient: Mukul Huber is a 41 yo M with background UC s/p total colectomy with pouch in 2001 who presents with abdominal pain, nausea and dehydration for about 2 weeks. After speaking with Dr. Sotelo he was started on flagyl as an outpatient until he underwent colonoscopy one week ago (02/16/12) which showed pouchitis at which time he was also started on asacol. However he stopped the flagyl at that time. ??Few days after the colonoscopy his symptoms recurred and he seen in the ED at ??[facility] where he was treated for dehydration and was sent home with pain killers and a PPI. ??After going home he began having ?? subjective fevers, chills. He denies any sick contacts. He does report some blood in his stool every time he stools now. He reports that his frequency of stools has also increased. ??He was seen in [facility] Ed where he had a CT abdomen which showed some diffuse inflammation just proximal to his illeoanastomosis. This combined with an elevation of inflammatory markers resulted in him being admitted with sepsis likely 2/2 to pouchitis. He has been started on IV levaquin and flagyl with some resolution of his symptoms. We have been consulted for evaluation of possible UC flare/ pouchitis. Patient Active Problem List Diagnoses Date Noted ? ? Ulcerative colitis 02/23/2012 ? ? 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 ? Acute bronchitis 02/23/2012 ? ? SIRS (systemic inflammatory response syndrome) 02/23/2012 ? ? Metabolic acidosis 02/23/2012 ? ? Sepsis 02/23/2012 ? ? JORGE (acute kidney injury) 02/23/2012 ? ? Hyponatremia 02/22/2012 ? ? Abdominal pain 02/22/2012 Prescriptions prior to admission Medication Sig Dispense Refill ? ? HYDROcodone-acetaminophen (NORCO) 5-325 mg Oral tablet Take 1 Tab by mouth every 4 hours as needed. ? mesalamine (ASACOL) 400 mg Oral TbEC Take 400 mg by mouth 2 times daily. ? metroNIDAZOLE (FLAGYL) 500 mg Oral tablet Take 500 mg by mouth 3 times daily. ? No Known Allergies Past Medical History Diagnosis Date ? ? Ulcerative colitis ? Unspecified adverse effect of anesthesia ?violent after 1st surgery ? ? Ulcerative colitis ?? Past Surgical History Procedure Date ? ? Hx colectomy 2001 ? ? Pr colonoscopy,diagnostic 12/08/2009 ??COLONOSCOPY performed by WILLIAN SOTELO at [facility] ? ? Pr sigmoidoscopy,diagnostic 02/16/2012 ??SIGMOIDOSCOPY FLEXIBLE performed by Willian Sotelo MD at [facility] ? ? Pr endoscopy of bowel pouch 02/16/2012 ??POUCHOSCOPY performed by Willian Sotelo MD at [facility] Family History Problem Relation Age of Onset ? ? Heart Disease Father ? Hypertension Mother ? Healthy Sister ? Healthy Brother ?? History Substance Use Topics ? ? Smoking status: Former Smoker -- 0.5 packs/day for 10 years ??Types: Cigarettes ? ? Smokeless tobacco: Not on file Comment: off & on ? ? Alcohol Use: No Recently quit smoking 2 months ago. OBJECTIVE Patient Vitals for the past 24 hrs: BP Temp Temp src Pulse Resp SpO2 Weight 02/23/12 1427 135/81 mmHg 98.1 ??F (36.7 ??C) Oral 106 ??18 ??95 % - 02/23/12 0957 - - - - 14 ??95 % - 02/23/12 0850 - - - 108 ??- - - 02/23/12 0831 - - - 120 ??12 ??- - 02/23/12 0736 126/74 mmHg 97.9 ??F (36.6 ??C) Oral 110 ??18 ??- - 02/22/12 2341 128/85 mmHg 98.2 ??F (36.8 ??C) Oral 122 ??18 ??94 % 75.297 kg (166 lb) 02/22/12 2202 135/74 mmHg 100.6 ??F (38.1 ??C) - 117 ??18 ??95 % - 02/22/12 2029 122/75 mmHg - - 110 ??18 ??95 % - 02/22/12 1914 132/79 mmHg 100.3 ??F (37.9 ??C) Oral 116 ??18 ??91 % - Intake/Output Summary (Last 24 hours) at 02/23/12 1635 Last data filed at 02/23/12 1400 Gross per 24 hour Intake ??863.5 ml Output ?0 ml Net ??863.5 ml Cardiac- No murmur, RRR, S1, S2 normal. Lungs- L mid and low lung zones with ronchi and occasional wheeze. Abdo- soft, mildly tender in RL and LLQ. Bowel sounds Ext- no edema Data Review : Results for orders placed during the hospital encounter of 02/22/12 (from the past 24 hour(s)) COMPREHENSIVE METABOLIC PANEL Collection Time 02/22/12 ??7:24 PM ?Component Value Range SODIUM 126 (*) 135 - 145 (mmol/L) POTASSIUM 5.3 (*) 3.5 - 4.9 (mmol/L) CHLORIDE 92 (*) 96 - 108 (mmol/L) CO2 18 (*) 22 - 30 (mmol/L) CALCIUM 10.2 ??8.6 - 10.2 (mg/dL) BUN 18 ??6 - 20 (mg/dL) CREATININE 1.23 (*) 0.67 - 1.17 (mg/dL) GLUCOSE 123 (*) 65 - 99 (mg/dL) TOTAL PROTEIN 8.5 ??6.3 - 8.6 (g/dL) ALBUMIN 4.2 ??3.4 - 4.8 (g/dL) BILIRUBIN TOTAL 0.7 ??0.2 - 1.0 (mg/dL) ALKALINE PHOSPHATASE 100 ??40 - 129 (U/L) AST 24 ??12 - 38 (U/L) ALT 35 ??0 - 41 (U/L) GFR, >60 ??>=60 (mL/min/1.7 sq meter) GFR >60 ??>=60 (mL/min/1.7 sq meter) LIPASE Collection Time 02/22/12 ??7:24 PM ?Component Value Range LIPASE 40 ??13 - 60 (U/L) CBC WITH DIFFERENTIAL Collection Time 02/22/12 ??7:57 PM ?Component Value Range WBC 13.7 (*) 4.0 - 9.8 (K/uL) RBC 5.08 ??4.50 - 5.40 (M/uL) HEMOGLOBIN 14.9 ??13.6 - 16.5 (g/dL) HEMATOCRIT 43.3 ??40.0 - 48.0 (%) MCV 85.2 ??82.0 - 99.0 (fL) MCH 29.3 ??27.2 - 32.6 (pg) MCHC 34.4 ??31.5 - 35.5 (%) PLATELETS 343 ??140 - 350 (K/uL) MPV 9.8 ??9.3 - 12.4 (fL) RDW 12.9 ??11.5 - 14.5 (%) RDW-STDEV 40.4 ??37.1 - 48.7 (fL) NEUTROPHILS 79 (*) 45 - 70 (%) LYMPHOCYTES 10 (*) 16 - 45 (%) MONOCYTES 10 ??3 - 13 (%) EOSINOPHILS 0 ??0 - 7 (%) BASOPHILS 0 ??0 - 2 (%) NEUTROPHIL ABSOLUTE 10.89 (*) 1.90 - 7.00 (K/uL) LYMPHOCYTE ABSOLUTE 1.38 ??0.70 - 4.50 (K/uL) MONOCYTE ABSOLUTE 1.37 (*) 0.10 - 1.30 (K/uL) EOSINOPHIL ABSOLUTE 0.06 ??0.00 - 0.70 (K/uL) BASOPHILS ABSOLUTE 0.04 ??0.00 - 0.20 (K/uL) CT ABDOMEN PELVIS W CONTRAST Collection Time 02/22/12 ??8:41 PM Narrative: ?? EXAM: ?? CT SCAN ABDOMEN AND PELVIS WITH IV CONTRAST ??of ??February 22, 2012 08:52:00 PM HISTORY: ?? Pain. TECHNIQUE: CT evaluation of the abdomen and pelvis was performed following the intravenous administration of contrast. FINDINGS: ??The liver is of normal size without focal defect or biliary dilatation. The spleen is unremarkable. There is no pancreatic mass or inflammation. Kidneys are unobstructed, and there is no stone or inflammation present. Scans through the pelvis show postop changes of a total colectomy. There is a distal loop of small bowel attached to the rectum. This shows circumferential thickening of the wall suggesting inflammatory bowel disease. There is no sign of perforation, abscess or free fluid. Impression: ?? IMPRESSION: ??Abnormal distal small bowel loop just above the ileoanal anastomosis. Findings are consistent with recurrent inflammatory bowel disease. XR CHEST PA OR AP Collection Time 02/23/12 ??1:54 AM Narrative: ?? PORTABLE CHEST 02/23/2012 2:05 A.M. Clinical history: COPD, rule out pneumonia The heart and mediastinum and hilar shadows appear normal. The lungs appear completely clear and well-expanded. The pleural space is clear. Bony structures appear normal. Impression: ?? IMPRESSION: Normal chest. ?? INFLUENZA VIRUS A AND B ANTIGEN Collection Time 02/23/12 ??3:02 AM ?Component Value Range FINAL MICRO REPORT ? Value: Influenza A Antigen: Negative by ICT assay. ? Influenza B Antigen: Negative by ICT assay. ? -- Note: ??A negative does not rule out infection. CLOSTRIDIUM DIFFICILE TOXIN Collection Time 02/23/12 ??3:42 AM ?Component Value Range C DIFF TOXIN PCR RESULT Negative ??Negative ?? C DIFF TOXIN PCR SOURCE Stool ?? URINALYSIS WITH REFLEX CULTURE Collection Time 02/23/12 ??3:46 AM ?Component Value Range URINE CULTURE ORDER Culture ordered ?? URINALYSIS Collection Time 02/23/12 ??3:46 AM ?Component Value Range COLOR UA Yellow ?? CLARITY UA Clear ??Clear ?? SPECIFIC GRAVITY UA 1.060 (*) 1.001 - 1.035 ?? PH UA 6.5 ??5.0 - 8.0 ?? LEUKOCYTE ESTERASE UA Negative ??Negative ?? NITRITE UA Negative ??Negative ?? PROTEIN UA 1+ (*) Negative ?? GLUCOSE UA Negative ??Negative ?? KETONES UA 2+ (*) Negative ?? UROBILINOGEN UA <1 ??<=1 (mg/dL) BILIRUBIN UA Negative ??Negative ?? BLOOD UA Trace (*) Negative ?? WBC UA 1 ??0 - 3 (/HPF) RBC UA 4 (*) 0 - 3 (/HPF) HYALINE CAST 27 (*) 0 - 2 (/LPF) CBC WITH DIFFERENTIAL Collection Time 02/23/12 ??7:10 AM ?Component Value Range WBC 12.1 (*) 4.0 - 9.8 (K/uL) RBC 4.98 ??4.50 - 5.40 (M/uL) HEMOGLOBIN 14.6 ??13.6 - 16.5 (g/dL) HEMATOCRIT 42.8 ??40.0 - 48.0 (%) MCV 85.9 ??82.0 - 99.0 (fL) MCH 29.3 ??27.2 - 32.6 (pg) MCHC 34.1 ??31.5 - 35.5 (%) PLATELETS 370 (*) 140 - 350 (K/uL) MPV 9.8 ??9.3 - 12.4 (fL) RDW 13.3 ??11.5 - 14.5 (%) RDW-STDEV 41.5 ??37.1 - 48.7 (fL) NEUTROPHILS, SEG 34 (*) 45 - 70 (%) BANDS 33 (*) 0 - 5 (%) LYMPHOCYTES 13 (*) 16 - 45 (%) MONOCYTES 14 (*) 3 - 13 (%) EOSINOPHILS 2 ??0 - 7 (%) BASOPHILS 0 ??0 - 2 (%) METAMYELOCYTE 4 (*) <=0 (%) PLATELET EST. Consistent w/ count ??Normal ?? NEUTROPHIL ABSOLUTE 8.11 (*) 1.90 - 7.00 (K/uL) LYMPHOCYTE ABSOLUTE 1.57 ??0.70 - 4.50 (K/uL) MONOCYTE ABSOLUTE 1.69 (*) 0.10 - 1.30 (K/uL) EOSINOPHIL ABSOLUTE 0.24 ??0.00 - 0.70 (K/uL) BASOPHILS ABSOLUTE 0.00 ??0.00 - 0.20 (K/uL) RBC MORPHOLOGY Normal ??Normal ?? BASIC METABOLIC PANEL Collection Time 02/23/12 ??7:10 AM ?Component Value Range SODIUM 126 (*) 135 - 145 (mmol/L) POTASSIUM 4.3 ??3.5 - 4.9 (mmol/L) CHLORIDE 95 (*) 96 - 108 (mmol/L) CO2 18 (*) 22 - 30 (mmol/L) CALCIUM 9.1 ??8.6 - 10.2 (mg/dL) BUN 17 ??6 - 20 (mg/dL) CREATININE 1.06 ??0.67 - 1.17 (mg/dL) GLUCOSE 104 (*) 65 - 99 (mg/dL) GFR, >60 ??>=60 (mL/min/1.7 sq meter) GFR >60 ??>=60 (mL/min/1.7 sq meter) LACTIC ACID Collection Time 02/23/12 ??7:10 AM ?Component Value Range LACTIC ACID 0.9 ??0.5 - 2.2 (mmol/L) C-REACTIVE PROTEIN Collection Time 02/23/12 ??7:50 AM ?Component Value Range CRP 21.7 (*) 0.0 - 0.8 (mg/dL) CORTISOL LEVEL Collection Time 02/23/12 ??8:28 AM ?Component Value Range CORTISOL LEVEL 43.0 ?? Pertinent Studies: C diff negative, Stool culture negative. Imaging: CT abdo 02/22/12: IMPRESSION: Abnormal distal small bowel loop just above the ileoanal anastomosis. Findings are consistent with recurrent inflammatory bowel Disease. Colonoscopy 02/15/12: Pouchitis. Ileal pouch anal anastomosis stricture. ASSESSMENT 1. Abdominal pain/fever - ??? IBD vs infectious enteritis vs pouchitis. ??Refractory to outpatient treatment. Responding to IV antibiotics at this time. Certainly this could still represent just a severe case of pouchitis. Interestingly though he has diffuse inflammation proximal to the actual pouch into the ileum which is not common with simple pouchitis. This is suspicious for new inflammatory bowel. In this case Crohn's must be considered given that UC is unlikely in the setting of total colectomy. 2. Sepsis -w/u per primary team. ?? PLAN 1. Repeat Crp, CBC in am. 2. Obtain IBD markers. 3. Review old pathology for indicators of IBD 4. Continue current antibiotics and Asacol. Would not initiate steroids at this time. ?? 5. Further recommendations per clinical course. The above has been discussed with Dr. Ryan. Tiburcio Toledo MD Internal Medicine R2 ([facility]) [phone] Sierra Yin MD INPATIENT CONSULT OR DERABLES [facility] * CORTISOL LEVEL (02/23/2012 8:28 AM CDT) CORTISOL LEVEL 43.0 ug/dL [facility] [employer] [facility] Comment: Cortisol Reference Range: 7 - 10 AM: ?? 6.2 - 19.4 ug/dL 4 - ??8 PM: ?? 2.3 - 11.9 ug/dL Blood specimen (specimen) 02/23/2012 8:28 AM CDT 02/23/2012 8:54 AM CDT Richelle Gambino MD CHEMISTRY ORDERABLES [facility] [employer] [facility] CLIA# [id number] [address] [place] [address] * (ABNORMAL) C-REACTIVE PROTEIN (02/23/2012 7:50 AM CDT) Pathologist [facility] CRP 21.7(H) 0.0 - 0.8 mg/dL [facility] LABORATORY SERVICES [facility] Blood specimen (specimen) 02/23/2012 7:50 AM CDT 02/23/2012 8:33 AM CDT Sierra Yin MD CHEMISTRY ORDERABLES Performing Organization Address [facility]/ZIP Co de Phone Number [facility] LABORATORY [facility]# [id number] [address] [place] [address] * LACTIC ACID (02/23/2012 7:10 AM CDT) Pathologist [facility] LACTIC ACID 0.9 0.5 - 2.2 mmol/L [facility] LABORATORY SERVICES [facility] Blood specimen (specimen) 02/23/2012 7:10 AM CDT 02/23/2012 7:21 AM CDT Richelle Gambino MD CHEMISTRY ORDERABLES Performing Organization Address [facility]/ZIP Co de Phone Number [facility] [employer] [facility]# [id number] [address] [place] [address] * (ABNORMAL) BASIC METABOLIC PANEL (02/23/2012 7:10 AM CDT) Pathologist [facility] SODIUM 126(L) 135 - 145 mmol/L [facility] - [facility] POTASSIUM 4.3 3.5 - 4.9 mmol/L [facility] - [facility] CHLORIDE 95(L) 96 - 108 mmol/L [facility] - [facility] CO2 18(L) 22 - 30 mmol/L [facility] LAB[facility] SERVICES [facility] CALCIUM 9.1 8.6 - 10.2 mg/dL [facility] LABORATORY SERVICES [facility] BUN 17 6 - 20 mg/dL [facility] LABORATORY SERVICES [facility] CREATININE 1.06 0.67 - 1.17 mg/dL [facility] LABORATORY [facility] GLUCOSE 104(H) 65 - 99 mg/dL [facility] LABORATORY SERVICES [facility] GFR, >60 >=60 mL/min/1. 7 sq meter [facility] LABORATORY SERVICES - [facility] GFR >60 >=60 mL/min/1. 7 sq meter [facility] LABORATORY SERVICES [facility] Comment: GFR is calculated using the IDMS-Traceable Modification of Diet in Renal Disease (MDRD) Study formula and is only valid for patients 18 years or older. Further interpretative information is available in the Laboratory Services Policy Manual on the [facility] Intranet at: [email or web address] Blood specimen (specimen) 02/23/2012 7:10 AM CDT 02/23/2012 7:21 AM CDT Richelle Gambino MD CHEMISTRY ORDERABLES [facility] LABORATORY SERVICES [facility] CLIA# [id number] [address] [place] [address] * (ABNORMAL) CBC WITH DIFFERENTIAL (02/23/2012 7:10 AM CDT) WBC 12.1(H) 4.0 - 9.8 K/uL [facility] LABORATORY SERVICES [facility] RBC 4.98 4.50 - 5.40 M/uL [facility] LABORATORY [facility] HEMOGLOBIN 14.6 13.6 - 16.5 g/dL [facility] LABORATORY [facility] HEMATOCRIT 42.8 40.0 - 48.0 % [facility] LABORATORY SERVICES [facility] MCV 85.9 82.0 - 99.0 fL [facility] LABORATORY SERVICES [facility] MCH 29.3 27.2 - 32.6 pg [facility] LABORATORY SERVICES [facility] MCHC 34.1 31.5 - 35.5 % [facility] LABORATORY SERVICES [facility] PLATELETS 370(H) 140 - 350 K/uL [facility] LABORATORY [facility] MPV 9.8 9.3 - 12.4 fL [facility] LABORATORY SERVICES [facility] RDW 13.3 11.5 - 14.5 % [facility] LABORATORY SERVICES [facility] RDW-STDEV 41.5 37.1 - 48.7 fL [facility] - [facility] NEUTROPHILS, SEG 34(L) 45 - 70 % [facility] LABORATORY SERVICES - . [facility] BANDS 33(H) 0 - 5 % [facility] - . [facility] LYMPHOCYTES 13(L) 16 - 45 % [facility] - . [facility] MONOCYTES 14(H) 3 - 13 % [facility] - . [facility] EOSINOPHILS 2 0 - 7 % [facility] - . [facility] BASOPHILS 0 0 - 2 % [facility] - . [facility] METAMYELOCYTE 4(H) <=0 % [facility] - [facility] PLATELET EST. Consistent w/ count Normal [facility] LABORATORY SERVICES - [facility] NEUTROPHIL ABSOLUTE 8.11(H) 1.90 - 7.00 K/uL [facility] - . [facility] LYMPHOCYTE ABSOLUTE 1.57 0.70 - 4.50 K/uL [facility] - . [facility] MONOCYTE ABSOLUTE 1.69(H) 0.10 - 1.30 K/uL [facility] SERVICES - . [facility] EOSINOPHIL ABSOLUTE 0.24 0.00 - 0.70 K/uL [facility] SERVICES - . [facility] BASOPHILS ABSOLUTE 0.00 0.00 - 0.20 K/uL [facility] SERVICES - . [facility] RBC MORPHOLOGY Normal Normal [facility] LABORATORY SERVICES - [facility] Blood specimen (specimen) 02/23/2012 7:10 AM CDT 02/23/2012 7:21 AM CDT Richelle Gambino MD HEMATOLOGY ORDERABLE S Performing Organization Address City/[facility]/ZIP Co de Phone Number [facility] LABORATORY SERVICES [facility] CLIA# [id number] [address] [place] [address] * URINE CULTURE (02/23/2012 3:46 AM CDT) FINAL MICRO REPORT No growth 24 hours [facility] LABORATORY SERVICES - [facility] 02/23/2012 3:46 AM CDT 02/23/2012 4:46 AM CDT Comment:URINE VOIDED Richelle Gambino MD MICROBIOLOGY - GENER AL ORDERABLES [facility] LABORATORY SERVICES - [facility] CLIA# [id number] [address] [place] [address] * (ABNORMAL) URINALYSIS (02/23/2012 3:46 AM CDT) COLOR UA Yellow [facility] LABORATORY SERVICES - [facility] CLARITY UA Clear Clear [facility] LABORATORY SERVICES - [facility] SPECIFIC GRAVITY UA 1.060(H) 1.001 - 1.035 [facility] LABORATORY SERVICES - [facility] Comment: Quantitated by dilution. Results confirmed by 2nd methodology. PH UA 6.5 5.0 - 8.0 [employer] LABORATORY SERVICES - [facility] LEUKOCYTE ESTERASE UA Negative Negative [employer] LABORATORY SERVICES - [facility] NITRITE UA Negative Negative [employer] LABORATORY SERVICES - [facility] PROTEIN UA 1+(A) Negative [employer] LABORATORY SERVICES - [facility] GLUCOSE UA Negative Negative [employer] LABORATORY SERVICES - [facility] KETONES UA 2+(A) Negative [employer] LABORATORY SERVICES - [facility] UROBILINOGEN UA <1 <=1 mg/dL [employer] LABORATORY SERVICES - [facility] BILIRUBIN UA Negative Negative [employer] LABORATORY SERVICES - [facility] BLOOD UA Trace(A) Negative [employer] LABORATORY SERVICES - [facility] WBC UA 1 0 - 3 /HPF [employer] LABORATORY SERVICES - [facility] RBC UA 4(H) 0 - 3 /HPF [employer] LABORATORY SERVICES - [facility] HYALINE CAST 27(H) 0 - 2 /LPF [employer] LABORATORY SERVICES - [facility] 02/23/2012 3:46 AM CDT 02/23/2012 4:26 AM CDT Comment:URINE VOIDED Richelle Gambino MD URINE ORDERABLES [facility] LABORATORY SERVICES [facility] CLIA# [id number] [address] [place] [address] * URINALYSIS WITH REFLEX CULTURE (02/23/2012 3:46 AM CDT) URINE CULTURE ORDER Culture ordered [facility] LABORATORY [facility] Comment: Criteria for a reflex culture include one or more of the following: ??Abnormal nitrite, leukocyte esterase, WBCs or RBCs. ??Lack of qualifying criteria does not exclude the possiblity of a urinary tract infection. ??Dilute urine, drug interference, etc. may decrease the sensitivity of the criteria analytes. Urine, clean catch 02/23/2012 3:46 AM CDT 02/23/2012 4:26 AM CDT Comment:URINE VOIDED Richelle Gambino MD URINE ORDERABLES Performing Organization Address [facility] Co de Phone Number [facility] LABORATORY [facility] CLIA# [id number] [address] [place] [address] * CLOSTRIDIUM DIFFICILE TOXIN (02/23/2012 3:42 AM CDT) C DIFF TOXIN PCR RESULT Negative Negative [facility] LABORATORY [facility] C DIFF TOXIN PCR SOURCE Stool [facility] LABORATORY [facility] Stool specimen (specimen) 02/23/2012 3:42 AM CDT 02/23/2012 4:26 AM CDT Comment:STOOL Richelle Gambino MD MICROBIOLOGY - GENER AL ORDERABLES Performing Organization Address [facility] Co de Phone Number [facility] LABORATORY [facility] CLIA# [id number] [address] [place] [address] * (ABNORMAL) STOOL CULTURE (02/23/2012 3:42 AM CDT) E. COLI SHIGA TOXIN REPORT Negative E. coli Shiga toxin 1 by ICT assay. Negative E. coli Shiga toxin 2 by ICT assay. --Note: ??A negative does not rule out infection with enterohemorrhagic E. coli.(A) [facility] LABORATORY [facility] FINAL MICRO REPORT Heavy growth Escherichia coli No Salmonella isolated. No Shigella isolated. No Escherichia coli serogroup O157:H7 isolated. No Campylobacter isolated.(A) [facility] LABORATORY [facility] SUSCEPTIBILITY PERFORMED ON ESCHERICHIA COLI(A) [facility] LABORATORY [facility] Stool specimen (specimen) 02/23/2012 3:42 AM CDT 02/23/2012 4:28 AM CDT Comment:STOOL Narrative Organism Antibiotic Method Susceptibility Escherichia coli ESBL NA MCG/ML NEGATIVE Escherichia coli AMPICILLIN AN MCG/ML >=32: Resistant Escherichia coli AMPICILLIN/ SULBACTAM NA MCG/ML 8: Susceptible Escherichia coli CEFAZOLIN NA MCG/ML <=4: Susceptible Escherichia coli GENTAMICIN NA MCG/ML <=1: Susceptible Escherichia coli CIPROFLOXACIN NA MCG/ML <=0.25: Susceptible Escherichia coli TRIMETHOPRIM/ SULFAMETHOXAZOLE NA MC G/ML <=20: Susceptible Richelle Gambino MD MICROBIOLOGY - Mira Dx AL ORDERABLES Performing Organization Address [facility] Co de Phone Number [facility] [employer] [facility]# [id number] [address] [place] [place] [address] * INFLUENZA VIRUS A AND B ANTIGEN (02/23/2012 3:02 AM CDT) FINAL MICRO REPORT Influenza A Antigen: Negative by ICT assay. Influenza B Antigen: Negative by ICT assay. -- Note: ??A negative does not rule out infection. [facility] [employer] [facility] Specimen from respiratory system (specimen) NASOPHARYNGEAL SWAB / Unknown 02/23/2012 3:02 AM CDT 02/23/2012 3:12 AM CDT Comment:NASOPHARYNGEAL Richelle Gambino MD MICROBIOLOGY - Mira Dx AL ORDERABLES Performing Organization Address [facility] Co de Phone Number [facility] [employer] [facility]# [id number] [address] [place] [phone] * XR CHEST PA OR AP (02/23/2012 2:10 AM CDT) Anatomical Region Laterality Modality Chest Computed Radiogr aphy 02/23/2012 1:54 AM CDT Impressions 02/23/2012 8:28 AM CDT IMPRESSION: Normal chest. ?? Narrative 02/23/2012 8:28 AM CDT PORTABLE CHEST 02/23/2012 2:05 A.M. Clinical history: COPD, rule out pneumonia The heart and mediastinum and hilar shadows appear normal. The lungs appear completely clear and well-expanded. The pleural space is clear. Bony structures appear normal. Procedure Note Crepps, Emily F, MD - 02/23/2012 PORTABLE CHEST 02/23/2012 2:05 A.M. Clinical history: COPD, rule out pneumonia The heart and mediastinum and hilar shadows appear normal. The lungs appear completely clear and well-expanded. The pleural space is clear. Bony structures appear normal. IMPRESSION IMPRESSION: Normal chest. Richelle Gambino MD DIAGNOSTIC IMAGING O RDERABLES * CT ABDOMEN PELVIS W CONTRAST (02/22/2012 8:52 PM CDT) Anatomical Region Laterality Modality Abdomen Computed Tomogra phy 02/22/2012 8:41 PM CDT Impressions 02/22/2012 9:05 PM CDT IMPRESSION: ??Abnormal distal small bowel loop just above the ileoanal anastomosis. Findings are consistent with recurrent inflammatory bowel disease. Narrative 02/22/2012 9:05 PM CDT EXAM: ?? CT SCAN ABDOMEN AND PELVIS WITH IV CONTRAST ??of ??February 22, 2012 08:52:00 PM HISTORY: ?? Pain. TECHNIQUE: CT evaluation of the abdomen and pelvis was performed following the intravenous administration of contrast. FINDINGS: ??The liver is of normal size without focal defect or biliary dilatation. The spleen is unremarkable. There is no pancreatic mass or inflammation. Kidneys are unobstructed, and there is no stone or inflammation present. Scans through the pelvis show postop changes of a total colectomy. There is a distal loop of small bowel attached to the rectum. This shows circumferential thickening of the wall suggesting inflammatory bowel disease. There is no sign of perforation, abscess or free fluid. Procedure Note Louis Porter MD - 02/22/2012 EXAM: CT SCAN ABDOMEN AND PELVIS WITH IV CONTRAST of February 22, 2012 08:52:00 PM HISTORY: Pain. TECHNIQUE: CT evaluation of the abdomen and pelvis was performed following the intravenous administration of contrast. FINDINGS: The liver is of normal size without focal defect or biliary dilatation. The spleen is unremarkable. There is no pancreatic mass or inflammation. Kidneys are unobstructed, and there is no stone or inflammation present. Scans through the pelvis show postop changes of a total colectomy. There is a distal loop of small bowel attached to the rectum. This shows circumferential thickening of the wall suggesting inflammatory bowel disease. There is no sign of perforation, abscess or free fluid. IMPRESSION IMPRESSION: Abnormal distal small bowel loop just above the ileoanal anastomosis. Findings are consistent with recurrent inflammatory bowel disease. Reji Noel MD CT ORDERABLES * (ABNORMAL) CBC WITH DIFFERENTIAL (02/22/2012 7:57 PM CDT) WBC 13.7(H) 4.0 - 9.8 K/uL [facility] RBC 5.08 4.50 - 5.40 M/uL [facility] HEMOGLOBIN 14.9 13.6 - 16.5 g/dL [facility] HEMATOCRIT 43.3 40.0 - 48.0 % [facility] MCV 85.2 82.0 - 99.0 fL [facility] MCH 29.3 27.2 - 32.6 pg [facility] MCHC 34.4 31.5 - 35.5 % [facility] PLATELETS 343 140 - 350 K/uL [facility] MPV 9.8 9.3 - 12.4 fL [facility] RDW 12.9 11.5 - 14.5 % [facility] RDW-STDEV 40.4 37.1 - 48.7 fL [facility] NEUTROPHILS 79(H) 45 - 70 % [facility] LYMPHOCYTES 10(L) 16 - 45 % [facility] MONOCYTES 10 3 - 13 % [facility] EOSINOPHILS 0 0 - 7 % [facility] BASOPHILS 0 0 - 2 % [facility] NEUTROPHIL ABSOLUTE 10.89(H) 1.90 - 7.00 K/uL [facility] LYMPHOCYTE ABSOLUTE 1.38 0.70 - 4.50 K/uL [facility] MONOCYTE ABSOLUTE 1.37(H) 0.10 - 1.30 K/uL [facility] EOSINOPHIL ABSOLUTE 0.06 0.00 - 0.70 K/uL [facility] BASOPHILS ABSOLUTE 0.04 0.00 - 0.20 K/uL [facility] LABORATORY SERVICES [facility] Blood specimen (specimen) 02/22/2012 7:57 PM CDT 02/22/2012 7:57 PM CDT Reji Noel MD HEMATOLOGY OR DERABLES Performing Organization Address [facility]/ZIP Co de Phone Number [facility] CLIA# [id number] [address] [place] [address] * LIPASE (02/22/2012 7:24 PM CDT) Pathologist [facility] LIPASE 40 13 - 60 U/L [facility] Blood specimen (specimen) 02/22/2012 7:24 PM CDT 02/22/2012 7:33 PM CDT Reji Noel MD CHEMISTRY ORD ERABLES Performing Organization Address [facility] Co de Phone Number [facility] [employer] [facility] CLIA# [id number] [address] [facility] [place] [address] * (ABNORMAL) COMPREHENSIVE METABOLIC PANEL (02/22/2012 7:24 PM CDT) Pathologist [facility] SODIUM 126(L) 135 - 145 mmol/L [facility] LABORATORY [facility] POTASSIUM 5.3(H) 3.5 - 4.9 mmol/L [facility] LABORATORY [facility] Comment: Moderate hemolysis present. Can cause significant falsely elevated result. Clinical judgement necessary. Redraw if indicated. CHLORIDE 92(L) 96 - 108 mmol/L [facility] LABORATORY [facility] CO2 18(L) 22 - 30 mmol/L [facility] LABORATORY [facility] CALCIUM 10.2 8.6 - 10.2 mg/dL [facility] LABORAT[facility] BUN 18 6 - 20 mg/dL [facility] LAB[facility]AT[facility] CREATININE 1.23(H) 0.67 - 1.17 mg/dL [facility] LABORATORY [facility] GLUCOSE 123(H) 65 - 99 mg/dL [facility] LABORATORY [facility] TOTAL PROTEIN 8.5 6.3 - 8.6 g/dL [facility] ALBUMIN 4.2 3.4 - 4.8 g/dL [facility] BILIRUBIN TOTAL 0.7 0.2 - 1.0 mg/dL [facility] ALKALINE PHOSPHATASE 100 40 - 129 U/L [facility] AST 24 12 - 38 U/L [facility] Comment:Hemolyzed: Result ma y be falsely elevated. ALT 35 0 - 41 U/L [facility] GFR, >60 >=60 mL/min/1. 7 sq meter [facility] GFR >60 >=60 mL/min/1. 7 sq meter [facility] Comment: GFR is calculated using the IDMS-Traceable Modification of Diet in Renal Disease (MDRD) Study formula and is only valid for patients 18 years or older. Further interpretative information is available in the Laboratory Services Policy Manual on the [facility] [employer] [place] at: [email or web address]/ Blood specimen (specimen) 02/22/2012 7:24 PM CDT 02/22/2012 7:33 PM CDT Reji Noel MD CHEMISTRY ORD ERABLES [facility] LABORATORY [facility]# [id number] [address] [facility] [place] [id number] documented in this encounter Visit Diagnoses Diagnosis Ulcerative colitis- Primary Ulcerative colitis, unspecified Abdominal pain Abdominal pain, unspecified site Hyponatremia Hyposmolality and/or hyponatremia Ulcerative colitis Ulcerative colitis, unspecified Pouchitis Acute bronchitis Sepsis, unspecified Sepsis Malnutrition Unspecified protein-calorie malnutrition Protein calorie malnutrition Unspecified protein-calorie malnutrition JORGE (acute kidney injury) Acute kidney failure, unspecified Hyponatremia Hyposmolality and/or hyponatremia Abdominal pain Abdominal pain, unspecified site Pouchitis Acute bronchitis SIRS (systemic inflammatory response syndrome) Systemic inflammatory response syndrome, unspecified Metabolic acidosis Acidosis Sepsis, unspecified Sepsis JORGE (acute kidney injury) Acute kidney failure, unspecified Protein calorie malnutrition Unspecified protein-calorie malnutrition Malnutrition Unspecified protein-calorie malnutrition documented in this encounter Administered Medications Inactive Administered Medications - up to 3 most recent administrations Medication Order MAR Action Action Date Dose Rate Site acetaminophen (TYLENOL) tablet 650 mg 650 mg, Oral, EVERY 4 HOURS PRN, Starting on Rach 02/23/12 at 0158, Until 03/03/12 at 1216, Temperature, for fever greater than 101 degrees, Routine Given 03/02/2012 7:06 PM CDT 650 mg Given 02/24/2012 8:26 AM CDT 650 mg ADULT TPN - CENTRAL IV, CONTINUOUS, Starting on 02/25/12 at 2000, Until 02/26/12 at 2057, Administer over 24 Hours Rate Verify 02/26/2012 4:00 AM CDT 84 mL/hr New Bag 02/25/2012 8:57 PM CDT 84 mL/hr ADULT TPN - CENTRAL IV, CONTINUOUS, Starting on 02/26/12 at 2000, Until 02/27/12 at 0920, Administer over 24 Hours New Bag 02/26/2012 8:51 PM CDT 85.06 mL/hr ADULT TPN - CENTRAL IV, CONTINUOUS, Starting on 02/27/12 at 2000, Until 02/28/12 at 1959, Administer over 24 Hours New Bag 02/27/2012 7:45 PM CDT 86 mL/hr ADULT TPN - CENTRAL IV, CONTINUOUS, Starting on 02/28/12 at 2000, Until 02/29/12 at 1959, Administer over 24 Hours New Bag 02/28/2012 7:46 PM CDT 85 mL/hr ADULT TPN - CENTRAL IV, CONTINUOUS, Starting on 02/29/12 at 2000, Until Rach 03/01/12 at 2146, Administer over 24 Hours Rate Verify 03/01/2012 10:22 AM CDT mL/hr Rate Verify 03/01/2012 6:11 AM CDT mL/hr New Bag 02/29/2012 9:46 PM CDT 85 mL/hr ADULT TPN - CENTRAL IV, CONTINUOUS, Starting on Rach 03/01/12 at 2000, Until 03/02/12 at 1428, Administer over 24 Hours Rate Verify 03/02/2012 11:28 AM CDT 85 mL/hr New Bag 03/01/2012 9:52 PM CDT 85 mL/hr ciprofloxacin (CIPRO) tablet 500 mg 500 mg, Oral, EVERY 12 HOURS (BlD), First dose on Mon03/02/12 at 2100, Until Discontinued, Routine Given 03/03/2012 8:42 AM CDT 500 mg Given 03/02/2012 8:23 PM CDT 500 mg cyclobenzaprine (FLEXERIL) tablet 10 mg 10 mg, Oral, THREE TIMES DAILY PRN, Starting on Mon02/24/12 at 0755, Until 02/25/12 at 0845, Spasm, Routine Given 02/24/2012 11:56 PM CDT 10 mg Given 02/24/2012 4:44 PM CDT 10 mg Given 02/24/2012 8:26 AM CDT 10 mg diazepam (VALIUM) tablet 5 mg 5 mg, Oral, TWO TIMES DAILY PRN, Starting on 02/25/12 at 0845, Until 02/26/12 at 1224, Spasm, Routine Given 02/26/2012 9:36 AM CDT 5 mg Given 02/26/2012 3:49 AM CDT 5 mg diazepam (VALIUM) tablet 5 mg 5 mg, Oral, FOUR TIMES DAILY, First dose (after last modification) on 02/26/12 at 1800, Until Discontinued, Routine Given 03/03/2012 8:43 AM CDT 5 mg Given 03/02/2012 10:44 PM CDT 5 mg Given 03/02/2012 3:37 PM CDT 5 mg fluticasone (FLOVENT HFA) 110 mcg/actuation inhaler 2 Puff 2 Puff, Inhalation, EVERY 12 HOURS (BlD), First dose on Mon02/23/12 at 0900, Until Discontinued, Routine Given 03/03/2012 9:06 AM CDT 2 Puffs Given 03/02/2012 8:24 PM CDT 2 Puffs Given 03/02/2012 8:05 AM CDT 2 Puffs heparin, porcine (pf) 100 unit/mL injection 300 Units 300 Units, IV, DAILY EARLY, First dose on Mon02/24/12 at 1515, Until Discontinued, Routine Given 03/02/2012 5:53 AM CDT 300 Units Given 03/01/2012 2:00 AM CDT 300 Units Given 02/29/2012 5:04 AM CDT 300 Units heparin, porcine (pf) 100 unit/mL injection 300 Units 300 Units, IV, SEE ADMIN INSTRUCTIONS, Starting on Mon02/24/12 at 1508, Until 03/03/12 at 1216, Routine Given 02/27/2012 9:46 PM CDT 300 Units HYDROcodone-acetaminophen (NORCO) 10-325 mg per tablet 1 Tab 1 Tablet, Oral, EVERY 4 HOURS PRN, Starting on 02/25/12 at 0926, Until 03/03/12 at 1216, Pain, Moderate, Routine Given 03/03/2012 8:42 AM CDT 1 T ablet Given 03/03/2012 4:42 AM CDT 1 Tablet Given 03/03/2012 12:11 AM CDT 1 Tablet HYDROcodone-acetaminophen (NORCO) 5-325 mg per tablet 1 Tab 1 Tablet, Oral, EVERY 4 HOURS PRN, Starting on Mon02/23/12 at 0157, Until Rach 02/23/12 at 1327, Pain, Routine Given 02/23/2012 7:18 AM CDT 1 Tablet Given 02/23/2012 3:12 AM CDT 1 Tablet hydromorPHONE (PF) (DILAUDID) 2 mg/mL injection 0.5 mg 0.5 mg, IV, EVERY 1 HOUR PRN, Starting on Mon02/22/12 at 2304, Until Rach 02/23/12 at 0126, Pain, Routine Given 02/22/2012 10:00 PM CDT 0.5 mg hydromorPHONE (PF) (DILAUDID) 2 mg/mL injection 0.5 mg 0.5 mg, IV, EVERY 2 HOURS PRN, Starting on Mon02/23/12 at 0115, Until Mon02/24/12 at 1154, Pain, Routine Given 02/24/2012 8:11 AM CDT 0.5 mg Given 02/24/2012 4:32 AM CDT 0.5 mg Given 02/24/2012 12:20 AM CDT 0.5 mg hydromorPHONE (PF) (DILAUDID) 2 mg/mL injection 0.5 mg 0.5 mg, IV, EVERY 4 HOURS PRN, Starting on Mon02/24/12 at 1200, Until Mon02/25/12 at 0931, Pain, Routine Given 02/25/2012 7:51 AM CDT 0.5 mg Given 02/25/2012 3:11 AM CDT 0.5 mg Given 02/24/2012 7:13 PM CDT 0.5 mg inFLIXimab (REMICADE) 376.5 mg in sodium chloride 0.9 % 250 mL IVPB 376.5 mg (5 mg/kg ? 75.3 kg), IV, ONE TIME ONLY, 1 dose, On Mon03/01/12 at 1730, Stat Given 03/01/2012 6:16 PM CDT 376.5 mg 125 mL/hr insulin aspart (NOVOLOG) 100 unit/mL variable dose subCUT, THREE TIMES DAILY WITH MEALS, First dose on Mon02/27/12 at 1200, Until Discontinued, Routine Given 02/27/2012 1:47 PM CDT 8 Units Arm, Left Upper insulin aspart (NOVOLOG) 100 unit/mL variable dose subCUT, EVERY 6 HOURS, First dose on Mon02/27/12 at 1800, Until Discontinued, Routine Given 02/28/2012 5:59 AM CDT 5 Units Arm, Right Upper Given 02/28/2012 12:42 AM CDT 20 Units A rm, Left Upper Given 02/27/2012 6:40 PM CDT 8 Units Ar m, Right insulin aspart (NOVOLOG) 100 unit/mL variable dose subCUT, EVERY 6 HOURS, First dose on Mon02/28/12 at 1200, Until Discontinued, Routine Given 03/02/2012 12:24 PM CDT 19 Units Arm, Right Upper Given 03/02/2012 6:01 AM CDT 4 Units Ar m, Right Upper Given 03/01/2012 11:48 PM CDT 15 Units A rm, Right Upper insulin aspart (NOVOLOG) 100 unit/mL variable dose subCUT, THREE TIMES DAILY WITH MEALS, First dose on Mon03/02/12 at 1830, Until Discontinued, Routine Given 03/02/2012 6:41 PM CDT 2 Units Arm, Left Upper insulin glargine (LANTUS) 100 unit/mL injection 15 Units 15 Units, subCUT, DAILY AT BEDTIME, First dose on Mon03/01/12 at 2100, Until Discontinued, Routine Given 03/01/2012 9:32 PM CDT 15 Units Arm, Right Upper ioversol (OPTIRAY 320) 320 mg/mL syringe 125 mL 125 mL, IV, INTRA-PROCEDURE ONCE, 1 dose, Starting on Mon02/22/12 at 204, Until Mon02/22/12 at 2052 Given 02/22/2012 8:53 PM CDT 125 mL ipratropium-albuterol (DUONEB) 0.5 mg-3 mg(2.5 mg base)/3 mL inhalation solution 3 mL 3 mL, Inhalation, FOUR TIMES DAILY RESPIRATORY, First dose on Mon02/23/12 at 0800, Until Discontinued, Routine Given 02/23/2012 8:31 AM CDT 3 mL lactated ringers solution IV, at 125 mL/hr, PRE-PROCEDURE CONTINUOUS, Starting on Mon02/28/12 at 0800, Until Mon02/28/12 at 1038, Routine New Bag 02/28/2012 8:02 AM CDT 125 mL/hr levofloxacin (LEVAQUIN) 500 mg/100 mL in D5W IVPB 500 mg 500 mg, IV, EVERY 24 HOURS, First dose on Mon02/26/12 at 0700, Until Discontinued, Routine Given 03/02/2012 8:01 AM CDT 500 mg 100 mL/hr Given 03/01/2012 8:51 AM CDT 500 mg 100 mL/hr Given 02/29/2012 6:40 AM CDT 500 mg 100 mL/hr levofloxacin (LEVAQUIN) 750 mg/150 mL in D5W IVPB 750 mg 750 mg, IV, DAILY, First dose on Mon02/23/12 at 0630, Until Discontinued, Routine Given 02/25/2012 7:46 AM CDT 750 mg 100 mL/hr Given 02/24/2012 6:11 AM CDT 750 mg 100 mL/hr Given 02/23/2012 7:34 AM CDT 750 mg 100 mL/hr mesalamine (ASACOL) tablet 800 mg 800 mg, Oral, THREE TIMES DAILY, First dose on Mon02/23/12 at 0900, Until Discontinued, Routine Given 03/02/2012 12:13 PM CDT 800 mg Given 03/02/2012 8:01 AM CDT 800 mg Given 03/01/2012 5:03 PM CDT 800 mg methylPREDNISolone sodium succinate (SOLU-MEDROL) injection 20 mg 20 mg, IV, EVERY 8 HOURS, First dose on Mon02/24/12 at 0845, Until Discontinued, Routine Given 03/02/2012 12:15 PM CDT 20 mg Given 03/02/2012 5:52 AM CDT 20 mg Given 03/01/2012 9:31 PM CDT 20 mg metoclopramide (REGLAN) tablet 10 mg 10 mg, Oral, EVERY 4 HOURS PRN, Starting on Mon02/24/12 at 0812, Until 03/03/12 at 1216, Nausea/Emesis, Routine Given 02/24/2012 8:27 AM CDT 10 mg metroNIDAZOLE (FLAGYL) IVPB 500 mg 500 mg, IV, EVERY 8 HOURS, First dose on Mon02/23/12 at 0500, Until Discontinued, Routine Given 03/02/2012 12:13 PM CDT 500 mg Given 03/02/2012 5:52 AM CDT 500 mg Given 03/01/2012 9:31 PM CDT 500 mg morphine injection 4 mg 4 mg, IV, ONE TIME ONLY, 1 dose, On Mon02/22/12 at 1930, Routine Given 02/22/2012 7:30 PM CDT 4 mg morphine injection 4 mg 4 mg, IV, ONE TIME ONLY, 1 dose, On Mon02/22/12 at 2000, Routine Given 02/22/2012 8:01 PM CDT 4 mg morphine injection 4 mg 4 mg, IV, ONE TIME ONLY, 1 dose, On Mon02/22/12 at 2145, Routine Given 02/22/2012 9:48 PM CDT 4 mg [id number]-NESPAWYVR TOP. PACKET 1 dose, Starting on Mon03/02/12 at 1754, Until Mon03/02/12 at 1756, [place] OMNICELL: cabinet override Given 03/02/2012 5:56 PM CDT 1 Packet Other (Comment) ondansetron (ZOFRAN ODT) tablet 4 mg 4 mg, Sublingual, EVERY 8 HOURS PRN, Starting on Mon02/23/12 at 0158, Until 03/03/12 at 1216, Nausea/Emesis, Routine Given 02/24/2012 4:39 AM CDT 4 mg Given 02/23/2012 9:53 PM CDT 4 mg Given 02/23/2012 3:12 AM CDT 4 mg ondansetron (ZOFRAN) 4 mg/2 mL injection 4 mg 4 mg, IV, ONE TIME ONLY, 1 dose, On Mon02/22/12 at 1930, Routine Given 02/22/2012 7:26 PM CDT 4 mg ondansetron (ZOFRAN) 4 mg/2 mL injection 4 mg 4 mg, IV, ONE TIME ONLY, 1 dose, On Mon02/22/12 at 2100, Routine Given 02/22/2012 9:01 PM CDT 4 mg ondansetron (ZOFRAN) 4 mg/2 mL injection 4 mg 4 mg, IV, ONE TIME ONLY, 1 dose, On Mon02/22/12 at 2200, Routine Given 02/22/2012 10:17 PM CDT 4 mg ONDANSETRON HCL (PF) 4 MG/2 ML INJECTION 1 dose, Starting on Mon02/22/12 at 1913, Until Mon02/22/12 at 1926, Mickey JARAMILLO: cabinet override oxyCODONE-acetaminophen (PERCOCET) 5-325 mg per tablet 1 Tab 1 Tablet, Oral, EVERY 4 HOURS PRN, Starting on Mon02/23/12 at 1327, Until Mon02/24/12 at 0947, Pain, Moderate, Routine Given 02/24/2012 6:15 AM CDT 1 Ta blet Given 02/24/2012 2:36 AM CDT 1 Tablet Given 02/23/2012 9:53 PM CDT 1 Tablet oxyCODONE-acetaminophen (PERCOCET) 5-325 mg per tablet 2 Tab 2 Tablet, Oral, EVERY 4 HOURS PRN, Starting on Mon02/24/12 at 0932, Until Mon02/25/12 at 0931, Pain, Moderate, Routine Given 02/24/2012 11:56 PM CDT 2 Tablets Given 02/24/2012 6:28 PM CDT 2 Tablets pantoprazole (PROTONIX) injection 40 mg 40 mg, IV, DAILY, First dose on Mon02/23/12 at 0900, Until Discontinued, Routine Given 02/23/2012 11:06 AM CDT 40 mg pantoprazole (PROTONIX) tablet 40 mg 40 mg, Oral, DAILY BEFORE BREAKFAST, First dose on Mon02/24/12 at 0600, Until Discontinued, Routine Given 03/03/2012 6:15 AM CDT 40 mg Given 03/02/2012 6:03 AM CDT 40 mg Given 03/01/2012 5:55 AM CDT 40 mg polyethylene glycol (MIRALAX) packet 34 Gram 34 Gram, Oral, EVERY 30 MINUTES, 8 doses, First dose on Mon02/27/12 at 1745, Last dose on Mon02/27/12 at 2115, Routine Given 02/27/2012 9:15 PM CDT 34 Grams Given 02/27/2012 8:45 PM CDT 34 Grams Given 02/27/2012 8:15 PM CDT 34 Grams predniSONE (DELTASONE) tablet 20 mg 20 mg, Oral, DAILY AT BEDTIME, First dose on Mon03/02/12 at 2100, Until Discontinued, Routine Given 03/02/2012 8:23 PM CDT 20 mg predniSONE (DELTASONE) tablet 30 mg 30 mg, Oral, DAILY WITH BREAKFAST, First dose on Mon03/03/12 at 0700, Until Discontinued, Routine Given 03/03/2012 8:43 AM CDT 30 mg saccharomyces boulardii (FLORASTOR) capsule 250 mg 250 mg, Oral, TWO TIMES DAILY, First dose on Mon02/24/12 at 0915, Until Discontinued, Routine Given 03/03/2012 8:43 AM CDT 250 mg Given 03/02/2012 8:23 PM CDT 250 mg Given 03/02/2012 8:01 AM CDT 250 mg sodium chloride 0.9 % flush injection 10 mL 10 mL, IV, DAILY EARLY, First dose on Mon02/24/12 at 1515, Until Discontinued, Routine Given 03/02/2012 5:53 AM CDT 10 mL Given 03/01/2012 2:00 AM CDT 10 mL Given 02/29/2012 5:04 AM CDT 10 mL sodium chloride 0.9 % flush injection 10 mL 10 mL, IV, SEE ADMIN INSTRUCTIONS, Starting on Mon02/24/12 at 1508, Until Mon03/03/12 at 1216, Routine Given 02/27/2012 9:46 PM CDT 10 mL sodium chloride 0.9 % flush injection 3 mL 3 mL, IV, EVERY 8 HOURS, First dose on Mon02/25/12 at 1630, Until Discontinued, Routine Given 03/02/2012 12:27 PM CDT 3 mL Given 03/02/2012 5:53 AM CDT 3 mL Given 03/01/2012 9:33 PM CDT 3 mL sodium chloride 0.9 % infusion IV, at 125 mL/hr, CONTINUOUS, Starting on Rach 02/23/12 at 0215, Until Mon02/24/12 at 0214, Routine Bag Switched 02/23/2012 10:19 PM CDT 125 mL/hr New Bag 02/23/2012 1:03 PM CDT 125 mL/hr Rate Verify 02/23/2012 8:29 AM CDT 125 mL/hr sodium chloride 0.9 % infusion IV, at 75 mL/hr, CONTINUOUS, Starting on Mon02/24/12 at 0800, Until 02/25/12 at 1038, Routine Bag Switched 02/24/2012 11:56 PM CDT 75 mL/hr Rate Verify 02/24/2012 6:25 PM CDT 75 mL/hr Restarted 02/24/2012 3:00 PM CDT 75 mL/hr sodium chloride 0.9% bolus solution 1,000 mL 1,000 mL, IV, ONE TIME ONLY, 1 dose, On Mon02/22/12 at 1915, at 2,000 mL/hr, Administer over 30 Minutes, Stat Given 02/22/2012 7:26 PM CDT 1,000 mL 2000 mL/hr vancomycin (VANCOCIN) oral solution 250 mg 250 mg, Oral, EVERY 6 HOURS, First dose on Mon02/29/12 at 0815, Until Discontinued, Routine Given 03/03/2012 6:15 AM CDT 250 mg Given 03/03/2012 12:09 AM CDT 250 mg Given 03/02/2012 6:05 PM CDT 250 mg documented in this encounter Active and Recently Administered Medications Times are shown in CDT. Scheduled Medication Order 03/01/2012 03/02/2012 03/03/2012 ciprofloxacin (CIPRO) tablet 500 mg 500 mg, Oral, EVERY 12 HOURS (BlD), First dose on Mon03/02/12 at 2100, Until Discontinued, Routine 2022 (Given - Provider: Riya Flowers, JIE) 0842 (Given - Provider: Germania Farmer RN) diazepam (VALIUM) tablet 5 mg 5 mg, Oral, FOUR TIMES DAILY, First dose (after last modification) on Mon02/26/12 at 1800, Until Discontinued, Routine 0851 (Refused - Provider: Ada Cullen, JIE)1300 (Refused - Provider: Ada Cullen, JIE)1742 (Given - Provider: Ada Cullen, JIE)1800 (Canceled Entry - Provider: Ada Cullen RN)2345 (Given - Provider: Rachell Waterman RN) 0551 (Given - Provider: Rachell Waterman RN)0802 (Given - Provider: Ashanti Carter, Student Nurse)1300 (Refused - Provider: Ashanti Carter Student Nurse)1537 (Given - Provider: Ashanti Carter Student Nurse)1800 (Canceled Entry - Provider: Patria Vasquez RN)2244 (Given - Provider: Riya Flowers, JIE) 0843 (Given - Provider: Germania Farmer, JIE) fluticasone (FLOVENT HFA) 110 mcg/actuation inhaler 2 Puff (CANCELED) 2 Puff, Inhalation, EVERY 12 HOURS (BlD), First dose on Mon02/23/12 at 0900, Until Discontinued, Routine 0851 (Given - Provider: Ada Cullen RN)2132 (Given - Provider: Rachell Waterman RN) 0805 (Given - Provider: Fernanda Martin Nurse)2024 (Given - Provider: Riya Flowers, JIE) 0906 (Given - Provider: Germania Farmer, JIE) heparin, porcine (pf) 100 unit/mL injection 300 Units (CANCELED) 300 Units, IV, DAILY EARLY, First dose on Mon02/24/12 at 1515, Until Discontinued, Routine 0200 (Given - Provider: Rachell Waterman RN)0600 (Canceled Entry - Provider: Rachell Waterman RN) 0553 (Given - Provider: Rachell Waterman RN) 0600 (Canceled Entry - Provider: Riya Flowers, JIE) inFLIXimab (REMICADE) 376.5 mg in sodium chloride 0.9 % 250 mL IVPB (COMPLETED) 376.5 mg (5 mg/kg ? 75.3 kg), IV, ONE TIME ONLY, 1 dose, On Rach 03/01/12 at 1730, Stat 1816 (Given - Provider: Ada Cullen RN) insulin aspart (NOVOLOG) 100 unit/mL variable dose (CANCELED) subCUT, EVERY 6 HOURS, First dose on Mon02/28/12 at 1200, Until Discontinued, Routine 0011 (Given - Provider: Rachell Waterman RN - Comment: [phone] (Given - Provider: Rachell Waterman RN - Comment: [phone] (Given - Provider: Ada Cullen, JIE)1742 (Given - Provider: Ada Cullen RN - Comment: bs [phone] (Given - Provider: Rachell Waterman RN - Comment: [phone]) 0601 (Given - Provider: Rachell Bejarano V RN - Comment: [phone] (Given - Provider: Ashanti Carter, Student Nurse - Comment: blood glucose [phone])1800 (Canceled Entry - Provider: Patria Vasquez RN) insulin aspart (NOVOLOG) 100 unit/mL variable dose (CANCELED) subCUT, THREE TIMES DAILY WITH MEALS, First dose on Mon03/02/12 at 1830, Until Discontinued, Routine 1841 (Given - Provider: Ashanti Carter, Student Nurse - Comment: Blood glucose 129) 0700 (Refused - Provider: Germania Farmer, JIE) insulin glargine (LANTUS) 100 unit/mL injection 15 Units (CANCELED) 15 Units, subCUT, DAILY AT BEDTIME, First dose on Mon03/01/12 at 2100, Until Discontinued, Routine 2132 (Given - Provider: Rachell Waterman RN) 2100 (Refused - Provider: Riya Flowers RN) levofloxacin (LEVAQUIN) 500 mg/100 mL in D5W IVPB 500 mg (CANCELED) 500 mg, IV, EVERY 24 HOURS, First dose on Mon02/26/12 at 0700, Until Discontinued, Routine 0851 (Given - Provider: Ada Cullen, JIE - Comment: stopped at 0951) 0801 (Given - Provider: Ashanti Carter, Student Nurse) mesalamine (ASACOL) tablet 800 mg (CANCELED) 800 mg, Oral, THREE TIMES DAILY, First dose on Mon02/23/12 at 0900, Until Discontinued, Routine 0851 (Given - Provider: Ada Cullen, JIE)1214 (Given - Provider: Ada Cullen, JIE)1703 (Given - Provider: Ada Cullen RN) 0801 (Given - Provider: Ashanti Carter, Student Nurse)1213 (Given - Provider: Ashanti Carter, Student Nurse) methylPREDNISolone sodium succinate (SOLU-MEDROL) injection 20 mg (CANCELED) 20 mg, IV, EVERY 8 HOURS, First dose on Mon02/24/12 at 0845, Until Discontinued, Routine 0555 (Given - Provider: Rachell Waterman RN)1214 (Given - Provider: Ada Cullen RN)213 (Given - Provider: Rachell Waterman RN) 0552 (Given - Provider: Rachell Waterman RN)1215 (Given - Provider: Ashanti Carter, Student Nurse) metroNIDAZOLE (FLAGYL) IVPB 500 mg (CANCELED) 500 mg, IV, EVERY 8 HOURS, First dose on Mon02/23/12 at 0500, Until Discontinued, Routine 0555 (Given - Provider: Rachell Waterman RN)121 (Given - Provider: Ada Cullen RN - Comment: stopped at 1314)2130 (Given - Provider: Rachell Waterman RN) 0552 (Given - Provider: Rachell Waterman RN)121 (Given - Provider: Ashanti Carter, Student Nurse) pantoprazole (PROTONIX) tablet 40 mg 40 mg, Oral, DAILY BEFORE BREAKFAST, First dose on Mon02/24/12 at 0600, Until Discontinued, Routine 0555 (Given - Provider: Rachell Waterman RN) 0603 (Given - Provider: Rachell Waterman RN) 0615 (Given - Provider: Carrie Alonzo RN) predniSONE (DELTASONE) tablet 20 mg 20 mg, Oral, DAILY AT BEDTIME, First dose on Mon03/02/12 at 2100, Until Discontinued, Routine 2022 (Given - Provider: Riya Flowers RN) predniSONE (DELTASONE) tablet 30 mg 30 mg, Oral, DAILY WITH BREAKFAST, First dose on Mon03/03/12 at 0700, Until Discontinued, Routine 0843 (Given - Provider: Germania Farmer RN) saccharomyces boulardii (FLORASTOR) capsule 250 mg (CANCELED) 250 mg, Oral, TWO TIMES DAILY, First dose on Mon02/24/12 at 0915, Until Discontinued, Routine 0851 (Given - Provider: Ada Cullen RN)2132 (Given - Provider: Rachell Waterman RN) 0801 (Given - Provider: Ashanti Carter, Student Nurse)2023 (Given - Provider: Riya Flowers RN) 0843 (Given - Provider: Germania Farmer RN) sodium chloride 0.9 % flush injection 10 mL (CANCELED) 10 mL, IV, DAILY EARLY, First dose on Mon02/24/12 at 1515, Until Discontinued, Routine 0200 (Given - Provider: Rachell Waterman RN)0600 (Canceled Entry - Provider: Rachell Waterman RN) 0553 (Given - Provider: Rachell Waterman RN) 0600 (Canceled Entry - Provider: Riya Flowers RN) sodium chloride 0.9 % flush injection 3 mL (CANCELED) 3 mL, IV, EVERY 8 HOURS, First dose on Mon02/25/12 at 1630, Until Discontinued, Routine 0556 (Given - Provider: Rachell Waterman RN)1215 (Given - Provider: Ada Cullen RN)2133 (Given - Provider: Rachell Waterman RN) 0553 (Given - Provider: Rachell Waterman RN)1227 (Given - Provider: Ashanti Carter, Student Nurse)2100 (Not Given - Provider: Riya Flowers RN - Reason: Clarify-Other (Comment)) 0500 (Canceled Entry - Provider: Riya Flowers RN) vancomycin (VANCOCIN) oral solution 250 mg 250 mg, Oral, EVERY 6 HOURS, First dose on Mon02/29/12 at 0815, Until Discontinued, Routine 0011 (Given - Provider: Rachell Waterman RN)0555 (Given - Provider: Rachell Waterman RN)1214 (Given - Provider: Ada Cullen RN)1703 (Given - Provider: Ada Cullen RN)2345 (Given - Provider: Rachell Waterman RN) 0553 (Given - Provider: Rachell Waterman RN)1214 (Given - Provider: Ashanti Carter, Student Nurse)1805 (Given - Provider: Ashanti Carter, Student Nurse) 0009 (Given - Provider: Carrie Alonzo, JIE)0615 (Given - Provider: Carrie Alonzo, JIE) Continuous Medication Order 03/01/2012 03/02/2012 03/03/2012 ADULT TPN - CENTRAL IV, CONTINUOUS, Starting on 02/25/12 at 2000, Until 02/26/12 at 2057, Administer over 24 Hours ADULT TPN - CENTRAL IV, CONTINUOUS, Starting on 02/27/12 at 2000, Until 02/28/12 at 1959, Administer over 24 Hours ADULT TPN - CENTRAL IV, CONTINUOUS, Starting on 02/28/12 at 2000, Until 02/29/12 at 1959, Administer over 24 Hours ADULT TPN - CENTRAL IV, CONTINUOUS, Starting on 02/29/12 at 2000, Until Rach 03/01/12 at 2146, Administer over 24 Hours 0611 (Rate Verify - Provider: Rachell Waterman RN)1022 (Rate Verify - Provider: Ada Cullen RN) ADULT TPN - CENTRAL (CANCELED) IV, CONTINUOUS, Starting on Rach 03/01/12 at 2000, Until 03/02/12 at 1428, Administer over 24 Hours 2152 (New Bag - Provider: Rachell Waterman RN) 1128 (Rate Verify - Provider: Ashanti Carter Student Nurse) sodium chloride 0.9 % infusion IV, at 125 mL/hr, CONTINUOUS, Starting on Rach 02/23/12 at 0215, Until 02/24/12 at 0214, Routine PRN Medication Order 03/01/2012 03/02/2012 03/03/2012 acetaminophen (TYLENOL) tablet 650 mg (CANCELED) 650 mg, Oral, EVERY 4 HOURS PRN, Starting on Rach 02/23/12 at 0158, Until 03/03/12 at 1216, Temperature, for fever greater than 101 degrees, Routine 1906 (Given - Provider: Ashanti Carter, Student Nurse) HYDROcodone-acetaminop hen (NORCO) 10-325 mg per tablet 1 Tab (CANCELED) 1 Tablet, Oral, EVERY 4 HOURS PRN, Starting on 02/25/12 at 0926, Until 03/03/12 at 1216, Pain, Moderate, Routine 0555 (Given - Provider: Rachell Bejarano V, RN)1742 (Given - Provider: Ada Cullen, RN)2133 (Given - Provider: Rachell Bejarano V RN) 0551 (Given - Provider: Rachell Bejarano V RN)202 (Given - Provider: Riya Flowers, JIE) 0011 (Given - Provider: Carrie Alonzo, RN)0442 (Given - Provider: Carrie Alonzo, JIE)0842 (Given - Provider: Germania Farmer RN) hyoscyamine (LEVSIN) sublingual tablet 0.125 mg 0.125 mg, Sublingual, EVERY 4 HOURS PRN, Starting on 03/02/12 at 1724, Until 03/03/12 at 1216, Spasm, Routine No Frequency Medication Order 03/01/2012 03/02/2012 03/03/2012 [id number] TOP. PACKET (COMPLETED) 1 dose, Starting on 03/02/12 at 1754, Until 03/02/12 at 1756, [place] OMNICELL: cabinet override 1756 (Given - Provider: Ashanti Carter, Student Nurse - Comment: Picc Site) documented in this encounter Care Teams Importer Exporter Relationship Specialty Start Date End Date Martin Kelley MD PCP - General Internal Medicine 02/16/12 08/14/17 documented as of this encounter
--- OUTSIDE RECORDS SUMMARY | 2024-10-24 05:34 | XMS_ITS | Encounter Summary ---
Author Organization [facility] Address [address] [place] [address] Care Team Providers Care Loaders Name Role Phone Martin Kelley MD Primary Care Provider [phone] Encounter Details Date Type Department Care Team (Late st Contact Info) Description 03/12/2012 Abstract [facility] GASTROENTEROLOGY [address] [place] [address] Lane Ryan MD NO ADDRESS [...] Description 02/13/2025 10:30 AM CDT Office Visit [facility] [place] [address] [place] [address] Kitty Dover ANP [address] [facility] [address] [place] [address] documented as of this encounter Visit Diagnoses Not on filedocumented in this encounter Care Teams Loaders Relationship Specialty Start Date End Date Martin Kelley MD PCP - General Internal Medicine 02/16/12 08/14/17 documented as of this encounter
--- OUTSIDE RECORDS SUMMARY | 2024-10-24 05:34 | XMS_ITS | Encounter Summary ---
Author Organization [facility] Address [address] [place] [address] Care Team Providers Care Wound Specialist Name Role Phone Martin Kelley MD Primary Care Provider [phone] Reason for Referral * Eval and Treat (Routine) - Closed Specialty Diagnoses / Procedures Referred By Contac t Referred To Contact Gastroenterology Diagnoses Ulcerative colitis Lane Ryan MD NO ADDRESS ON FILE Lane Ryan MD NO ADDRESS ON FILE Referral ID Status Reason Start Date Expiration Date V isits Requested Visits Authorized [id number] Closed CRS To Schedule (STL) 04/11/2012 04/11/2013 1 1 Reason for Visit * Reason Comments Ulcerative Colitis Encounter Details Date Type Department Care Team (Latest Contact Info) Description 04/11/2012 10:00 AM CDT Office Visit [facility] GASTROENTEROLOGY [address] [facility] [address] [place] [id number] Lane Ryan MD NO ADDRESS ON FILE [...] Sign Reading Time Taken Comments Blood Pressure 110/60 04/11/2012 10:14 AM CDT Pulse 72 04/11/2012 10:14 AM CDT Temperature - - Respiratory Rate - - Oxygen Saturation - - Inhaled Oxygen Concentration - - Weight 80.3 kg (177 lb) 04/11/2012 10:14 AM CDT Height - - Body Mass Index 26.14 03/15/2012 11:44 AM CDT documented in this encounter Progress Notes * Lane Ryan MD - 04/11/2012 10:19 AM CDT PROGRESS NOTE: Edgardo Elkins Date of 1970 HPI: inflammatory bowel disease: Enteritis--ibd vs pouchitis--doing well--Prednisone 10/day as of yesterday; cipro 500 od; No probiotic; remicade--3 rd today; BM was 4-6/day, now 6-8; looser;min cramps; no fever; no blood; antidiarrheal only immodium prn; GERD- protonix, helps, no heartburn. Current Outpatient Prescriptions Medication Sig Dispense Refill ??? ciprofloxacin (CIPRO) 500 mg Oral tablet Take 1 Tab by mouth daily. 30 Tab 2 ??? pantoprazole (PROTONIX) 40 mg Oral TbEC Take 1 Tab by mouth daily. 30 Tab 0 ??? HYDROcodone-acetaminophen (NORCO) 5-325 mg Oral tablet Take 1 Tab by mouth every 4 hours as needed for Pain. 25 Tab 0 ??? diazepam (VALIUM) 5 mg Oral tablet Take 1 Tab by mouth every 6 hours as needed for Spasm. 12 Tab 0 ??? hyoscyamine (LEVSIN) 0.[address] 1 Tab under tongue every 4 hours as needed for Spasm. 30 Tab 0 ??? predniSONE (DELTASONE) 20 mg Oral tablet Take 1 Tab by mouth daily at bedtime. 30 Tab 0 ??? pantoprazole (PROTONIX) 40 mg Oral TbEC Take 1 Tab by mouth daily before breakfast. 30 Tab 0 No Known Allergies REVIEW OF SYSTEMS: Constitutional: feeling ok; energy ok Eye: denies cataracts, glaucoma, visual disturbance, irritation, color issues Ear, Nose, Mouth, Throat: denies hearing loss, tinnitus, ear issues, nasal congestion, epistaxis, snoring, neck mass, oral issues, hoarse voice Respiratory: denies cough, dyspnea, hemoptysis, stridor, wheeze, chest pain Cardiovascular: denies chest pain or discomfort, exertional chest pressure/discomfort, fatigue, pounding heart/chest, nausea, syncope, shortness of breath Gastrointestinal: see history of present illness Genitourinary: denies dysuria, frequency, hematuria, hesitancy, nocturia, urinary incontinence Musculoskeletal: sore at times Neurological: denies blurry or disturbed vision, gait problems, dizziness, difficulty swallowing, muscle weakness, difficulty saying words Behavior, Psychologic: denies aggressive or problematic behavior, anxiety, mood issues, substance use, learning difficulty, unusual fears Endocrine: denies sudden changes in mood, temperature intolerance, polyuria, polydipsia, skin changes PHYSICAL EXAM: BP 110/60 Pulse 72 Wt 80.287 kg (177 lb) GENERAL: Well developed and in no acute distress. SKIN: Skin was without lesions. EYES: HEENT examination was unrevealing. Conjunctivae were pink and sclerae were anicteric. MOUTH: Moist mucous membranes. NECK: Neck is supple without thyromegaly or adenopathy. HEART: Cardiac examination revealed regular rate and rhythm. There was no pathologic murmur, click or rub. LUNGS: Clear without signs of consolidation or wheezing ABDOMEN: scar Soft with active bowel sounds. There was no focal abdominal tenderness, hepatosplenomegaly or mass appreciated. RECTAL: Deferred EXTREMITIES: Extremities were without edema. There was no active synovitis. NEURO: Neurologic exam was grossly non-focal. ASSESSMENT: Enteritis, improved though loose BMs PLAN: taper steroids; plan f/u endoscopy There are no diagnoses linked to this encounter. Lane Ryan MD documented in this encounter Miscellaneous Notes * Patient Instructions - Lane Ryan MD - 04/11/2012 10:06 AM CDT documented in this encounter Plan of Treatment Upcoming Encounters Date Type Department Care Team (Late st Contact Info) Description 02/13/2025 10:30 AM CDT Office Visit [facility] [place] [address] [place] [address] Kitty Dover, MIRTA [address] [place] [address] Scheduled Referrals Name Type Priority Associated Diagnoses Order Schedule AMB REFERRAL TO GASTROENTEROLOGY Outpatient Referral Routine Ulcerative colitis Ordered: 04/11/2012 documented as of this encounter Results * CLOSTRIDIUM DIFFICILE TOXIN (04/11/2012 12:58 PM CDT) C DIFF TOXIN PCR RESULT Negative Negative [facility] C DIFF TOXIN PCR SOURCE Stool [facility] Stool specimen (specimen) 04/11/2012 12:58 PM CDT 04/11/2012 1:20 PM CDT Comment:STOOL Lane Ryan MD MICROBIOLOGY - GENER AL ORDERABLES [facility] CLIA# [id number] [address] [place] [address] * (ABNORMAL) COMPREHENSIVE METABOLIC PANEL (04/11/2012 12:58 PM CDT) SODIUM 138 135 - 145 mmol/L [facility] POTASSIUM 4.1 3.5 - 4.9 mmol/L [facility] Comment: Moderate hemolysis present. Can cause significant falsely elevated result. Clinical judgement necessary. Redraw if indicated. CHLORIDE 101 96 - 108 mmol/L [facility] CO2 20(L) 22 - 30 mmol/L [facility] CALCIUM 9.1 8.6 - 10.2 mg/dL [facility] BUN 12 6 - 20 mg/dL [facility] CREATININE 0.87 0.67 - 1.17 mg/dL [facility] GLUCOSE 138(H) 65 - 99 mg/dL [facility] TOTAL PROTEIN 7.4 6.3 - 8.6 g/dL [facility] ALBUMIN 3.9 3.4 - 4.8 g/dL [facility] BILIRUBIN TOTAL 0.3 0.2 - 1.0 mg/dL [facility] ALKALINE PHOSPHATASE 68 40 - 129 U/L [facility] AST 35 12 - 38 U/L [facility] Comment:Hemolyzed: Result ma y be falsely elevated. ALT 41 0 - 41 U/L [facility] GFR, >60 >=60 mL/min/1. 7 sq meter [facility] GFR >60 >=60 mL/min/1. 7 sq meter [facility] Comment: GFR is calculated using the IDMS-Traceable Modification of Diet in Renal Disease (MDRD) Study formula and is only valid for patients 18 years or older. Further interpretative information is available in the Laboratory Services Policy Manual on the [facility] Intranet at: [email or web address] Blood specimen (specimen) 04/11/2012 12:58 PM CDT 04/11/2012 1:[address] Ryan MD CHEMISTRY ORDERABLES [facility] CLIA# [id number] [address] [place] [address] * (ABNORMAL) CBC WITH DIFFERENTIAL (04/11/2012 12:58 PM CDT) WBC 10.6(H) 4.0 - 9.8 K/uL [facility] RBC 4.77 4.50 - 5.40 M/uL [facility] HEMOGLOBIN 13.6 13.6 - 16.5 g/dL [facility] HEMATOCRIT 42.0 40.0 - 48.0 % [facility] MCV 88.1 82.0 - 99.0 fL [facility] MCH 28.5 27.2 - 32.6 pg [facility] MCHC 32.4 31.5 - 35.5 % [facility] PLATELETS 368(H) 140 - 350 K/uL [facility] MPV 9.3 9.3 - 12.4 fL [facility] RDW 13.2 11.5 - 14.5 % [facility] RDW-STDEV 42.6 37.1 - 48.7 fL [facility] NEUTROPHILS, SEG 92(H) 45 - 70 % [facility] LYMPHOCYTES 5(L) 16 - 45 % [facility] MONOCYTES 2(L) 3 - 13 % [facility] EOSINOPHILS 0 0 - 7 % [facility] BASOPHILS 0 0 - 2 % [facility] METAMYELOCYTE 1(H) <=0 % [facility] PLATELET EST. Consistent w/ count Normal [facility] NEUTROPHIL ABSOLUTE 9.75(H) 1.90 - 7.00 K/uL [facility] LYMPHOCYTE ABSOLUTE 0.53(L) 0.70 - 4.50 K/uL [facility] MONOCYTE ABSOLUTE 0.21 0.10 - 1.30 K/uL [facility] EOSINOPHIL ABSOLUTE 0.00 0.00 - 0.70 K/uL [facility] BASOPHILS ABSOLUTE 0.00 0.00 - 0.20 K/uL [facility] ANISOCYTOSIS Slight [facility] POIKILOCYTES Slight [facility] MICROCYTES Slight [facility] MACROCYTES Slight [facility] POLYCHROMASIA Slight [facility] HYPOCHROMIA Slight [facility] OVALOCYTES [facility]light [facility] ACANTHOCYTES Slight [facility] REVIEWED ON SMEAR WBC & Plt Reviewed [facility] Blood specimen (specimen) 04/11/2012 12:58 PM CDT 04/11/2012 1:[address] Ryan MD HEMATOLOGY ORDERABLE S Performing Organization Address City/[facility]/ZIP Co de Phone Number [facility]# [id number] [address] [place] [address] * C-REACTIVE PROTEIN (04/11/2012 12:58 PM CDT) CRP 0.2 0.0 - 0.8 mg/dL [facility] Blood specimen (specimen) 04/11/2012 12:58 PM CDT 04/11/2012 1:[address] Ryan MD CHEMISTRY ORDERABLES Performing Organization Address [facility] Co de Phone Number [facility]# [id number] [address] [place] [address] documented in this encounter Visit Diagnoses Diagnosis Ulcerative colitis- Primary Ulcerative colitis, unspecified Ulcerative colitis Ulcerative colitis, unspecified documented in this encounter Care Teams Wound Specialist Relationship Specialty Start Date End Date Martin Kelley MD PCP - General Internal Medicine 02/16/12 08/14/17 documented as of this encounter
--- OUTSIDE RECORDS SUMMARY | 2024-10-24 05:34 | XMS_ITS | Encounter Summary ---
Author Organization [facility] Address [address] [place] [address] Care Team Providers Care Barber Instructor Name Role Phone Martin Kelley MD Primary Care Provider [phone] Encounter Details Date Type Department Care Team (Late st Contact Info) Description 11/15/2012 Abstract [facility] [address] [facility] [address] [place] [address] Lane Ryan MD NO ADDRESS [...] IBD and Gastroenterology [facility] [place] [address] [facility] [address] [place] [address] Kitty Dover ANP [address] [facility] [address] [place] [address] documented as of this encounter Visit Diagnoses Not on filedocumented in this encounter Care Teams Barber Instructor Relationship Specialty Start Date End Date Martin Kelley MD PCP - General Internal Medicine 02/16/12 08/14/17 documented as of this encounter
--- OUTSIDE RECORDS SUMMARY | 2024-10-24 05:34 | XMS_ITS | Encounter Summary ---
Author Organization [facility] Address [address] [place] [address] Care Team Providers Care Physician Credentialing Specialist Name Role Phone Martin Kelley MD Primary Care Provider [phone] Reason for Visit * Reason Onset Date Comments Nausea 06/04/2012 Abdominal Cramping 06/04/2012 Diarrhea 06/04/2012 Encounter Details Date Type Department Care Team (Late st Contact Info) Description 06/04/2012 Telephone [facility] GASTROENTEROLOGY [address] [facility] [address] [place] [address] Lane Ryan MD NO ADDRESS ON FILE Nausea; Abdominal Cramping; Diarrhea Social History Tobacco Use Types Packs/Day [...] Telephone Encounter - Lane Ryan MD - 06/04/2012 5:31 PM CDT Pt ? [employer] bm, some nausea and cramps; On pred 7.5 mg/day; Last remicade 7wks ago--reaction noted; Needs to get remicade will need preop with steroids/benadryl JF * Telephone Encounter - Kadie Nye - 06/04/2012 10:04 AM CDT Patient with nausea, abdominal pain - please call. documented in this encounter Plan of Treatment Upcoming Encounters Date Type Department Care Team (Late st Contact Info) Description 02/13/2025 10:30 AM CDT Office Visit [facility] Gastroenterology [facility] [place] [address] [facility] [address] [place] [address] Kitty Dover, [facility] [address] [facility] [address] [place] [address] documented as of this encounter Visit Diagnoses Not on filedocumented in this encounter Care Teams Physician Credentialing Specialist Relationship Specialty Start Date End Date Martin Kelley MD PCP - General Internal Medicine 02/16/12 08/14/17 documented as of this encounter
--- OUTSIDE RECORDS SUMMARY | 2024-10-24 05:34 | XMS_ITS | Encounter Summary ---
Author Organization [facility] Address [address] [place] [address] Care Team Providers Care Stove Tender Name Role Phone Martin Kelley MD Primary Care Provider [phone] Reason for Visit * Auth/Cert - Closed Specialty Diagnoses / Procedures Referred By Lamebrt t Referred To Contact Gastroenterology Diagnoses UC (ULCERATIVE COLITIS) [556.9] Procedures ILEOSCOPY [facility] [address] [place] [address] Referral ID Status Reason Start Date Expiration Date Visits Re quested Visits Authorized [id number] Closed 1 1 Encounter Details Date Type Department Care Team (Latest Contact Info) Description 06/12/2012 7:28 AM CDT - 06/12/2012 10:38 AM CDT Hospital Encounter [facility] [address] [facility] [place] [address] Katie Steele MD NO ADDRESS ON FILE Discharge Disposition: [...] Sign Reading Time Taken Comments Blood Pressure 117/68 06/12/2012 9:42 AM CDT Pulse 72 06/12/2012 9:42 AM CDT Temperature 36.3 ??C (97.4 ??F) 06/12/2012 9:22 AM CD T Respiratory Rate 20 06/12/2012 9:42 AM CDT Oxygen Saturation 99% 06/12/2012 9:42 AM CDT Inhaled Oxygen Concentration - - Weight 80.3 kg (177 lb) 06/12/2012 8:09 AM CDT Height 175.3 cm (5' 9 ) 06/12/2012 8:09 AM CDT Body Mass Index 26.14 06/12/2012 8:09 AM CDT documented in this encounter Discharge Instructions * Discharge Instructions* Christina Noriega, RN - 06/12/2012 9:51 AM CDT If you should experience: Severe abdominal [...] at least 24 hours. 2. Following your colonoscopy you may expect your bowel habits to return to normal in 2-3 days. Once you are fully alert you may have a light meal and can progress to your usual diet, unless otherwise instructed [...] 04/11/2012 08/24/2017 documented as of this encounter H&P Notes * Katie Steele MD - 06/12/2012 8:49 AM CDT PRE PROCEDURE EVALUATION - Colonoscopy DATE: 06/12/2012 HPI: This is a 41 y.o. male patient scheduled for ileoscopy for ibd Patient Active Problem List Diagnoses Date Noted [...] violent after 1st surgery ??? Ulcerative colitis ??? Asthma as a child Past Surgical History Procedure Date ??? Hx colectomy 2001 ??? Pr colonoscopy,diagnostic 12/08/2009 COLONOSCOPY performed by LOUISE SOTELO at [facility] ??? Pr sigmoidoscopy,diagnostic 02/16/2012 SIGMOIDOSCOPY FLEXIBLE performed by Louise Sotelo MD at [facility] ??? Pr endoscopy of bowel pouch 02/16/2012 POUCHOSCOPY performed by Louise Sotelo MD at [facility] ??? Pr upper gi endoscopy,diagnosis 02/28/2012 ESOPHAGOGASTRODUODENOSCOPY performed by Katie Steele MD at [facility] ??? Pr small bowel endoscopy,biopsy 02/28/2012 BOWEL SMALL BIOPSY ENDOSCOPIC performed by Katie Steele MD at [facility] Prescriptions prior to admission Medication Sig Dispense Refill ??? predniSONE (DELTASONE) 10 mg Oral tablet Qd ??? IBUPROFEN IB ORAL Prn pain ??? OTHER VSL # 3 LABEL: 2 BID 60 Each 3 No Known Allergies History Substance Use Topics ??? Smoking status: Former Smoker -- 0.5 packs/day for 10 years Types: Cigarettes ??? Smokeless tobacco: Not on file Comment: off & on ??? Alcohol Use: Yes rarely Family History Problem Relation Age of [...] with the above mentioned procedure(s) as scheduled. Katie Steele MD documented in this encounter Procedure Notes * Sebastian Alejandro [facility] - 06/14/2012 8:01 PM CDTAssociated Order(s): GI REPORT * Katie Steele MD - 06/12/2012 6:21 PM CDTAssociated Order(s): GI REPORT [place], [place] [address] Gastroenterology CSN: [id number] DATE OF SERVICE: SMALL BOWEL ENDOSCOPY INDICATIONS FOR PROCEDURE Mukul is a 41-year-old male who undergoes followup examination of his lower small intestine. The patient has had a prolonged hospitalization with severe enteritis previously. He was treated with a combination of vancomycin for C. diff, corticosteroids and Remicade for suspected inflammatory bowel disease. See his prior history for details related to a proctocolectomy by Dr. Sotelo. Overall the patient states he has been doing well, though he did have increased symptoms 10 days ago. DESCRIPTION OF PROCEDURE With the patient on the left side, sedation is provided by anesthesia. Rectal examination shows a stricture just inside the rectum and initially would not admit my index finger. The adult endoscope was introduced into the small intestine through the anal canal. There is diffuse inflammation of the pouch, but it is improved compared to previous examination. Scope was advanced up approximately 60 cm into the small intestine. The small intestine is diffusely inflamed, erythematous with scattered superficial erosions. Biopsies are obtained. The entrance into the pouch has a satisfactory lumen. Onentering the pouch, we could see discrete ulcers especially one quite consistent with Crohn disease. Biopsies of this are also obtained. Stool is obtained for C diff. I elected to introduce a balloon dilator into the pouch pulled back to the anal stenosis and dilated from a 15 to 16.5 and an 18. The scope was withdrawn. I am then able to introduce my index finger quite satisfactory. Overall the patient tolerated the procedure well. DIAGNOSES 1. Inflammation of the distal small intestine, improved. 2. Endoscopic appearance consistent with Crohn disease. RECOMMENDATIONS The patient at this time is doing satisfactorily with prednisone 10 mg a day and Remicade every 2 months. The patient has had reactions with his Remicade and we had to add Solu-Medrol as a preop. I did discuss with him the option of going to [facility]. He is advised to see me back in the office in 1 month. JSF:MEDQ DID: [id number] Dictated by: Katie Steele MD documented in this encounter OR Notes * OR Anesthesia - Stl Scanning, [facility] - 06/14/2012 8:01 PM CDT Electronically signed by Reggie [facility] Stl Supervisor Agency Appointments Incoming at 06/14/2012 8:01 PM CDT * Anesthesia Post Evaluation - Isacc Perez CRNA - 06/12/2012 10:36 AM CDT Phase II Postanesthesia Evaluation Including [facility] Modified Rebekah Score Patient seen and evaluated: RESPIRATORY FUNCTION: Respiration: able to breath and cough freely (06/12/12 0929) [2=able to breathe and cough freely, 1=dyspnea, limited breathing or tachypnea, 0=apnea or mechanicventilator] O2 Saturation: able to maintain O2 saturation greater than 92% on room air (06/12/12928) [2=able to maintain O2 saturation greater than 92% on room air, 1=needs O2 inhalation to maintain O2 saturation greater than 90%, 0=O2 saturation less than 90% even with O2 supplement] Resp: 20 (06/12/12941)SpO2: 99 % (06/12/12941) CARDIOVASCULAR FUNCTION: BP: 117/68 mmHg (06/12/12941) Circulation: BP within 20% of preanesthetic level (06/12/12928) [2=BP within 20% of preanesthetic level, 1=BP within 20-49% of preanesthetic level, 0=BP within 50%of preanesthetic level] MENTAL STATUS, NEURO, ACTIVITY: Consciousness: fully awake (06/12/12928) [2=fully awake, 1=arousable on calling, 0=not responding] Activity: able to move 4 extremities voluntarily or on command (06/12/12928) [2=able to move 4 extremities voluntarily or on command, 1=able to move 2 extremities voluntarily or on command, 0=unable to move extremities voluntarily or on command] Ambulation: able to stand up and walk straight, on ordered bedrest, or performing at patient's prior level of function (06/12/12928) [2=able to stand up and walk straight, on ordered bedrest, or performing at patient's prior level of function, 1=vertigo when erect, 0=dizziness when supine] TEMPERATURE: Temp: 97.4 ??F (36.3 ??C) (06/12/12921) PAIN: Presence of Pain: denies pain/discomfort (06/12/12931) Pain: pain free (06/12/12928) [2=pain free, 1=pain handled by oral medication, 0=pain requiring parenteral medication] NAUSEA AND VOMITING: Fasting/Feeding: able to drink fluids, ice chips or NPO (06/12/12928) [2=able to drink fluids, ice chips or NPO, 1=nauseated, 0=nausea and vomiting] POSTOPERATIVE HYDRATION: Intake/Output Summary (Last 24 hours) at 06/12/12 1036 Last data filed at 06/12/12 0951 Gross per 24 hour Intake 320 ml Output 0 ml Net 320 ml Urine Output: unable to void but comfortable (06/12/12928) [2=has voided, adequate urine output per device, or not applicable, 1=unable to void but comfortable, 0=unable to void and uncomfortable] WOUND: Dressing: dry and clean or not applicable (06/12/12928) [2=dry and clean or not aplicable, 1=wet, marked and not increasing, 0=growing area of wetness] [facility] Modified Rebekah Score: Score: 19 (06/12/12928) COMMENTS: No apparent Anesthesia related complications Ed ORLANDO Perez 06/12/2012 10:36 AM * OR Anesthesia - Estella Payne MD - 06/12/2012 8:31 AM CDT GI Lab Pre-Anesthesia Evaluation - Long Form 06/12/2012 8:32 AM Name: Mukul Huber Age: 41 y.o. Sex: male CSN: [id number] Procedure: Procedure(s): ILEOSCOPY Surgeons/Assistants: Surgeon(s) and Role: * Katie Steele MD - Primary No Known Allergies Prescriptions prior to admission Medication Sig Dispense Refill ??? predniSONE (DELTASONE) 10 mg Oral tablet Qd ??? IBUPROFEN IB ORAL Prn pain ??? OTHER VSL # 3 LABEL: 2 BID 60 Each 3 Current Facility-Administered Medications Medication Dose Route Frequency Provider Last Rate Last Dose ??? lactated ringers solution IV Pre-Proc Continuous Katie Steele MD 125 mL/hr at 06/12/12 0815 Patient Active Problem List Diagnoses Date Noted [...] violent after 1st surgery ??? Ulcerative colitis ??? Asthma as a child Past Surgical History Procedure Date ??? Hx colectomy 2001 ??? Pr colonoscopy,diagnostic 12/08/2009 COLONOSCOPY performed by LOUISE SOTELO at [facility] ??? Pr sigmoidoscopy,diagnostic 02/16/2012 SIGMOIDOSCOPY FLEXIBLE performed by Louise Sotelo MD at [facility] ??? Pr endoscopy of bowel pouch 02/16/2012 POUCHOSCOPY performed by Louise Sotelo MD at [facility] ??? Pr upper gi endoscopy,diagnosis 02/28/2012 ESOPHAGOGASTRODUODENOSCOPY performed by Katie Steele MD at [facility] ??? Pr small bowel endoscopy,biopsy 02/28/2012 BOWEL SMALL BIOPSY ENDOSCOPIC performed by Katie Steele MD at [facility] History Substance Use Topics ??? Smoking status: Former Smoker -- 0.5 packs/day for 10 years Types: Cigarettes ??? Smokeless tobacco: Not on file Comment: off & on ??? Alcohol Use: Yes rarely Family History Problem Relation Age of Onset ??? Heart Disease Father ??? Hypertension Mother ??? Healthy Sister ??? Healthy Brother ??? Colon Cancer Neg Hx Previous Anesthesia Problems/Concerns: No anesthesia problems/complications and one wake up with agitation after general anesthesia Review of Systems Cardiovascular: negative Respiratory: former smoker, chronic cough Gastroenterology: ulcerative colitis, s/p colectomy, screening today Bowel Prep:Yes PHYSICAL EXAM BP 121/69 Pulse 72 Temp(Src) 98.6 ??F (37 ??C) (Temporal) Resp 18 Ht 5' 9 (1.753 m) Wt 177 lb (80.287 kg) BMI 26.14 kg/m2 SpO2 93% Weight: Weight: 177 lb (80.287 kg) (06/12/12 0809) Height: Ht Readings from Last 1 Encounters: 06/12/12 5' 9 (1.753 m) BMI: Body mass index is 26.14 kg/(m^2). Airway: normal range of motion: Airway Class: II (soft palate, uvula, fauces visible); Mouth Opening 3+ Finger Breadth Lungs: clear to auscultation bilaterally, normal respiratory effort Heart: regular rate and rhythm, S1, S2 normal, no murmur, click, rub or gallop Neuro: alert, oriented x 3, no defects noted in general exam. Vascular Access: Peripheral Line LABS Lab Results Component Value Date WBC 10.6* 04/11/2012 HEMOGLOBIN 13.6 04/11/2012 HEMATOCRIT 42.0 04/11/2012 PLATELETS 368* 04/11/2012 MCV 88.1 04/11/2012 Lab Results Component Value Date SODIUM 138 04/11/2012 POTASSIUM 4.1 04/11/2012 CHLORIDE 101 04/11/2012 CO2 20* 04/11/2012 CALCIUM 9.1 04/11/2012 BUN 12 04/11/2012 CREATININE 0.87 04/11/2012 GLUCOSE 138* 04/11/2012 No results found for this basename: INR, PT, PROTIMEPOC No results found for this basename: HCGURPOC, HCGQUALUR, HCGQUAL, HCGQUANT, HCGINTACT Lab Results Component Value Date POC GLUCOSE 129* 03/02/2012 EKG: EKG not indicated today Other [...] Questions have been solicited and answered. Yes Rere Payne MD documented in this encounter Miscellaneous Notes * Scanned Form - Stl Scanning, [facility] - 06/14/2012 8:01 PM CDT Electronically signed by Reggie [facility] Stl Supervisor Agency Appointments Incoming at 06/14/2012 8:01 PM CDT * Scanned Form - Stl Scanning, [facility] - 06/14/2012 8:01 PM CDT Electronically signed by Reggie [facility] Supervisor Agency Appointments Incoming at 06/14/2012 8:01 PM CDT * Patient Instructions - Stl Javon, Faizan - 06/14/2012 8:01 PM CDT Electronically signed by Interface, [facility] Supervisor Agency Appointments Incoming at 06/14/2012 8:01 PM CDT documented in this encounter Plan of Treatment Upcoming Encounters Date Type Department Care Team (Late st Contact Info) Description 02/13/2025 10:30 AM CDT Office Visit [facility] [place] [address] [place] [address] Kitty Dover, MIRTA [address] [place] [address] documented as of this encounter Procedures Procedure Name Priority Date/Time Associated Diagnosis Comments GI REPORT 06/14/2012 8:01 PM CDT PATHOLOGY Routine 06/12/2012 12:15 PM CDT C. DIFFICILE DETECTION Routine 06/12/2012 9:25 AM CDT RETIRED RECTAL STRICTURE DILATATION 06/12/2012 8:29 AM CDT UC (ulcerative colitis) Case Notes NPR SMALL BOWEL ENTEROSCOPY 06/12/2012 8:29 AM CDT UC (ulcerative colitis) Case Notes NPR documented in this encounter Results * GI REPORT (06/14/2012 8:01 PM CDT) Narrative Transcriptions Katie Steele MD - 06/12/2012 6:21 PM CDT [place], [place] [address] Gastroenterology CSN: [id number] DATE OF SERVICE: SMALL BOWEL ENDOSCOPY INDICATIONS FOR PROCEDURE Mukul is a 41-year-old male who undergoes followup examination of his lowersmall intestine. The patient has had a prolonged hospitalization withsevere enteritis previously. He was treated with a combination ofvancomycin for C. diff, corticosteroids and Remicade for suspectedinflammatory bowel disease. See his prior history for details related toa proctocolectomy by Dr. Sotelo. Overall the patient states he has beendoing well, though he did have increased symptoms 10 days ago. DESCRIPTION OF PROCEDURE With the patient on the left side, sedation is provided by anesthesia.Rectal examination shows a stricture just inside the rectum and initiallywould not admit my index finger. The adult endoscope was introduced intothe small intestine through the anal canal. There is diffuse inflammationof the pouch, but it is improved compared to previous examination. Scopewas advanced up approximately 60 cm into the small intestine. The smallintestine is diffusely inflamed, erythematous with scattered superficialerosions. Biopsies are obtained. The entrance into the pouch has asatisfactory lumen. On entering the pouch, we could see discrete ulcersespecially one quite consistent with Crohn disease. Biopsies of this arealso obtained. Stool is obtained for C diff. I elected to introduce a balloon dilator into the pouch pulled back to theanal stenosis and dilated from a 15 to 16.5 and an 18. The scope waswithdrawn. I am then able to introduce my index finger quitesatisfactory. Overall the patient tolerated the procedure well. DIAGNOSES 1. Inflammation of the distal small intestine, improved. 2. Endoscopic appearance consistent with Crohn disease. RECOMMENDATIONS The patient at this time is doing satisfactorily with prednisone 10 mg aday and Remicade every 2 months. The patient has had reactions with hisRemicade and we had to add Solu-Medrol as a preop. I did discuss with himthe option of going to [facility]. He is advised to see me back in the officein 1 month. JSF:MEDQ DID:[id number] Dictated by: Katie Steele MD [facility] Scanning, [facility] - 06/14/2012 8:01 PM CDT Katie Steele MD GI PROCEDURE [facility] * PATHOLOGY (06/12/2012 12:15 PM CDT) SURGICAL PATHOLOGY ?[facility] ?[address] ? [place], [place] ??[address] ? Patient: ??MUKUL HUBER S ? : ??1970 ? Procedure Date: ??06/12/2012 ? Accession Date: ??06/12/2012 ? Case No: ??[id number] ? Ordering Dr: ??KATIE STEELE ? Case type SW is performed by [facility], [address] [place] [address], ? [place], [place] ??[address]; all other case types are performed by [facility] ? [facility] [place] [facility], [address] [place], [place] ??[address] ?SURGICAL PATHOLOGY & NON-GYNECOLOGIC CYTOPATHOLOGY REPORT ? DIAGNOSIS ? SMALL INTESTINE, ILEUM, BIOPSY: ? - CHRONIC ACTIVE ILEITIS. ? SMALL INTESTINE, DISTAL POUCH, BIOPSY: ? - CHRONIC ACTIVE ILEITIS WITH ULCERATION. ? Specimen Description: ? (1) Ileum biopsy; (2) distal pouch biopsy. ? Operative Procedure: ? Colonoscopy. ? Patient Information/Histor y/Diagnosis: ? (1) and (2) Acute inflammation. Please help characterize. Endoscopic ? appearance c/w IBD; UC vs. Crohn's. Are there granulomas? Gross: ? The specimen is received in two parts, each labeled Mukul Huber. ? Received in the first container labeled ileum biopsy are five pieces of ? irregular, newman tissue ranging from 0.2 to 0.4 cm in greatest dimension. The ? specimen is submitted in toto labeled A1. ? Received in the second container labeled distal pouch biopsies are four ? pieces of irregular, newman-brown tissue ranging from 0.2 to 0.3 cm in ? greatest dimension. The specimen is submitted in toto labeled B1. ? TAO/BELEM 06.12.2012 03:36 pm ? Microscopic: ? The slides are labeled [id number], Mukul Huber. ? Sections of the ileum biopsy show fragments of small intestinal mucosa with ? diffuse mild acute and chronic inflammation and edematous, mildly distorted ? villi. The active inflammation is predominantly stroma, but there is some ? infiltration of crypt and surface epithelium. No discrete erosions or ? ulcers are seen. There is mild crypt distortion and shortfall, consistent ? with chronicity. No granulomas are seen. There is no evidence of dysplasia. ? The distal pouch biopsies have markedly inflamed and distorted fragments of ? small intestinal mucosa with focal ulceration, granulation tissue, and ? fibrinopurulent exudate. There is evidence of chronicity, with crypt ? distortion, short fall, and pyloric metaplasia. No granulomas are seen. The ? appearance is consistent with pouchitis. There is no evidence of dysplasia. ? The appearance is compared to the previous biopsies ([id number]) from February ? 2011, and both show similar histologic features. ? CJ/PJS 06.13.2012 10:14 am ? Staging Form: ? No ? ELECTRONIC SIGNATURE FOR SHANNAN CEDENO MD- 06/13/12 03:01 pm [facility] 06/12/2012 12:1 5 PM CDT Katie Steele MD PATHOLOGY/CYTOLOGY O RDERABLES [facility] CLIA# [id number] [address] [place] [address] * CLOSTRIDIUM DIFFICILE TOXIN (06/12/2012 9:25 AM CDT) C DIFF TOXIN PCR RESULT Negative Negative [facility] C DIFF TOXIN PCR SOURCE Stool [facility] Stool specimen (specimen) 06/12/2012 9:25 AM CDT 06/12/2012 12:11 PM CDT Comment:STOOL Katie Steele MD MICROBIOLOGY - GENER AL ORDERABLES [facility] CLIA# [id number] [address] [place] [address] documented in this encounter Visit Diagnoses Not on filedocumented in this encounter Administered Medications Inactive Administered Medications - up to 3 most recent administrations Medication Order MAR Action Action Date Dose Rate Site lactated ringers solution IV, at 125 mL/hr, PRE-PROCEDURE CONTINUOUS, Starting on 06/12/12 at 0815, Until Mon06/12/12 at 1238, Routine New Bag 06/12/2012 8:15 AM CDT 125 mL /hr documented in this encounter Active and Recently Administered Medications Times are shown in CDT. Continuous Medication Order 06/10/2012 06/11/2012 06/12/2012 lactated ringers solution (CANCELED) IV, at 125 mL/hr, PRE-PROCEDURE CONTINUOUS, Starting on 06/12/12 at 0815, Until Mon06/12/12 at 1238, Routine 0815 (New Bag - Prov ider: Janice Holt RN)1000 (Stopped - Provider: Christina Noriega RN) documented in this encounter Care Teams Stove Tender Relationship Specialty Start Date End Date Martin Kelley MD PCP - General Internal Medicine 02/16/12 08/14/17 documented as of this encounter
--- OUTSIDE RECORDS SUMMARY | 2024-10-24 05:34 | XMS_ITS | Encounter Summary ---
Author Organization [facility] Address [address] [place] [address] Care Team Providers Care Umbrella Supervisor Name Role Phone Martin Kelley MD Primary Care Provider [phone] Reason for Visit * Reason Onset Date Comments Medication Refill 07/30/2013 Encounter Details Date Type Department Care Team (Late st Contact Info) Description 07/30/2013 Refill [facility] [address] [facility] [address] [place] [address] Lane Ryan MD NO ADDRESS [...] 02/13/2025 10:30 AM CDT Office Visit [facility] [place] [address] [place] [address] Kitty Dover, ANP [address] [facility] [address] [place] [address] documented as of this encounter Visit Diagnoses Diagnosis IBD (inflammatory bowel disease)- Primary Other and unspecified noninfectious gastroenteritis and colitis documented in this encounter Care Teams Umbrella Supervisor Relationship Specialty Start Date End Date Martin Kelley MD PCP - General Internal Medicine 02/16/12 08/14/17 documented as of this encounter
--- OUTSIDE RECORDS SUMMARY | 2024-10-24 05:34 | XMS_ITS | Encounter Summary ---
Author Organization [facility] Address [address] [place] [address] Care Team Providers Care Director News Name Role Phone Martin Kelley MD Primary Care Provider [phone] Reason for Visit * Reason Onset Date Comments Ulcerative Colitis 07/16/2012 Encounter Details Date Type Department Care Team (Late st Contact Info) Description 07/16/2012 Telephone [facility] [address] [facility] [address] [place] [address] [address] Ryan MD NO ADDRESS [...] Telephone Encounter - Lane Ryan MD - 07/16/2012 6:39 PM CDT Inc sxes since stopping cipro;; reorder and ch cbc and see me. JF * Telephone Encounter - Kadie Nye - 07/16/2012 2:46 PM CDT Finished Cipro a week ago, now is experiencing urgency and frequency in bowel motions. Fistula is sore. documented in this encounter Plan of Treatment Upcoming Encounters Date Type Department Care Team (Late st Contact Info) Description 02/13/2025 10:30 AM CDT Office Visit [facility] [place] [address] [facility] [address] [place] [address] Kitty Dover, [facility] [address] [facility] [address] [place] [address] documented as of this encounter Visit Diagnoses Diagnosis Ulcerative colitis- Primary Ulcerative colitis, unspecified documented in this encounter Care Teams Director News Relationship Specialty Start Date End Date Martin Kelley MD PCP - General Internal Medicine 02/16/12 08/14/17 documented as of this encounter
--- OUTSIDE RECORDS SUMMARY | 2024-10-24 05:34 | XMS_ITS | Encounter Summary ---
Author Organization [facility] Address [address] [place] [address] Care Team Providers Care Wind Farm Designer Name Role Phone Martin Kelley MD Primary Care Provider [phone] Encounter Details Date Type Department Care Team (Late st Contact Info) Description 08/03/2012 [facility] [address] [facility] [address] [place] [address] Lane Ryan MD NO ADDRESS [...] IBD [facility] G[facility] [place] [address] [facility] [address] [place] [address] Kitty Dover ANP [address] [facility] [address] [place] [address] documented as of this encounter Visit Diagnoses Not on filedocumented in this encounter Care Teams Wind Farm Designer Relationship Specialty Start Date End Date Martin Kelley MD PCP - General Internal Medicine 02/16/12 08/14/17 documented as of this encounter
--- OUTSIDE RECORDS SUMMARY | 2024-10-24 05:34 | XMS_ITS | Encounter Summary ---
Author Organization [facility] Address [address] [place] [address] Care Team Providers Care Academic Adviser Name Role Phone Martin Kelley MD Primary Care Provider [phone] Reason for Visit * Outpatient Services (Routine) - Closed Specialty Diagnoses / Procedures Referred By Contac t Referred To Contact Oncology Diagnoses Ulcerative colitis Procedures Lane Madsen MD NO ADDRESS ON FILE [facility] 2nd Floor [place] [address] [place] [address] Referral ID Status Reason Start Date Expiration Date Visits Re quested Visits Authorized [id number] Closed 03/14/2012 04/14/2012 1 1 Encounter Details Date Type Department Care Team (Latest Contact Info) Description 03/15/2012 11:30 AM CDT - 03/15/2012 11:59 PM CDT Hospital Encounter [facility] 2nd Fl [address] [place] [address] Lane Ryan MD NO ADDRESS [...] Sign Reading Time Taken Comments Blood Pressure 117/67 03/15/2012 1:15 PM CDT Pulse 101 03/15/2012 1:15 PM CDT Temperature 35.8 ??C (96.5 ??F) 03/15/2012 1:15 PM CD T Respiratory Rate 20 03/15/2012 1:15 PM CDT Oxygen Saturation - - Inhaled Oxygen Concentration - - Weight - - Height - - Body Mass Index - - documented in this encounter Medications at Time of Discharge Medication Sig Dispensed Refills Start Date End Date ciprofloxacin (CIPRO) 500 mg Oral tabletIndications:Ulcerat lazarus colitis Take 1 Tab by mouth daily. 30 Tab 2 03/15/2012 06/05/2012 pantoprazole (PROTONIX) 40 mg Oral TbECIndications:Ulcerativ e colitis Take 1 Tab by mouth daily. 30 Tab 0 03/15/2012 06/05/2012 ciprofloxacin (CIPRO) 500 mg Oral tablet Take [...] as of this encounter Progress Notes * Nubia De La Cruz, RN - 03/15/2012 5:29 PM CDT Pt tolerated the remaining Remicade infusion well. PIV flushed with NS and removed per protocol. Gauze and coban applied to site, site WDL. Ambulatory discharge, pt accompanied by . * Silke Daniel RN - 03/15/2012 4:09 PM CDT Pt. Reports feeling much better ; remicade restarted. Will watch pt. Carefully. * Silke Daniel RN - 03/15/2012 3:25 PM CDT Benadryl hung as ordered; to be followed solumedrol; remicade will then be restarted. * Silke Daniel RN - 03/15/2012 3:10 PM CDT Call received from Dr. Ryan, orders received for support meds. * Silke Daniel RN - 03/15/2012 2:50 PM CDT Pt. With complaint of not feeling well, something is not right . Pt. Further describes, having a tight chest, yet states the he is getting enough air. Remicade off, BP = 112/72; P = 112; R = 22; T = 96.6. Called placed to MD's office; MD in GI lab; call placed to GI lab; report given to JIE Painter, who spoke with Dr. Ryan. Dr. Ryan will call RN with the next 10 minutes. * Silke Daniel RN - 03/15/2012 12:51 PM CDT IV started in lower L arm with excellent blood return; labwork drawn as ordered. NAaCl hung per pump; remicade hung IVPB; titrating per protocol. * Silke Daniel RN - 03/15/2012 12:50 PM CDT Ambulatory admit; identified with name and for remicade. Pt. Had first dose of remicade in hospital and states that he did just fine, no problems . documented in this encounter Plan of Treatment Upcoming Encounters Date Type Department Care Team (Late st Contact Info) Description 02/13/2025 10:30 AM CDT Office Visit [facility]astro[facility] [place] [address] [facility] [address] [place] [address] Kitty Dover, [facility] [address] [facility] [address] [place] [address] documented as of this encounter Procedures Procedure Name Priority Date/Time Associated Diagnosis Comments CBC WITH DIFFERENTIAL Stat 03/15/2012 1:05 PM CDT C-REACTIVE PROTEIN Stat 03/15/2012 1: 05 PM CDT MAGNESIUM LEVEL Stat 03/15/2012 1:05 PM CDT COMPREHENSIVE METABOLIC PANEL Stat 03/15/2012 1:05 PM CDT documented in this encounter Results * C-REACTIVE PROTEIN (03/15/2012 1:05 PM CDT) CRP <0.1 0.0 - 0.8 mg/dL [facility] Blood specimen (specimen) 03/15/2012 1:05 PM CDT 03/15/2012 1:[address] Ryan MD CHEMISTRY ORDERABLES Performing Organization Address City/[facility] Co de Phone Number [facility] CLIA# [id number] [address] [place] [address] * MAGNESIUM LEVEL (03/15/2012 1:05 PM CDT) Pathologist [facility] MAGNESIUM 1.9 1.5 - 2.5 mg/dL [facility] Blood specimen (specimen) 03/15/2012 1:05 PM CDT 03/15/2012 1:[address] Ryan MD CHEMISTRY ORDERABLES Performing Organization Address [facility] Phone Number [facility] [id number] [address] [facility] [place] [address] * (ABNORMAL) COMPREHENSIVE METABOLIC PANEL (03/15/2012 1:05 PM CDT) SODIUM 138 135 - 145 mmol/L [facility] POTASSIUM 3.4(L) 3.5 - 4.9 mmol/L [facility] CHLORIDE 106 96 - 108 mmol/L [facility] CO2 17(L) 22 - 30 mmol/L [facility] CALCIUM 8.3(L) 8.6 - 10.2 mg/dL [facility] BUN 19 6 - 20 mg/dL [facility] CREATININE 0.83 0.67 - 1.17 mg/dL [facility] SERVICES [facility] GLUCOSE 160(H) 65 - 99 mg/dL [facility] TOTAL PROTEIN 6.0(L) 6.3 - 8.6 g/dL [facility] SERVICES [facility] ALBUMIN 3.4 3.4 - 4.8 g/dL [facility] SERVICES [facility] BILIRUBIN TOTAL 0.3 0.2 - 1.0 mg/dL [facility] PHOSPHATASE 75 40 - 129 U/L [facility] AST 19 12 - 38 U/L [facility] ALT 39 0 - 41 U/L [facility] GFR, >60 >=60 mL/min/1. 7 sq meter [facility] SERVICES [facility] GFR >60 >=60 mL/min/1. 7 sq meter [facility] Comment: GFR is calculated using the IDMS-Traceable Modification of Diet in Renal Disease (MDRD) Study formula and is only valid for patients 18 years or older. Further interpretative information is available in the Laboratory Services Policy Manual on the [facility] Intranet at: [email or web address] hospitalKereosmer[facility] hospital.[facility]/ Blood specimen (specimen) 03/15/2012 1:05 PM CDT 03/15/2012 1:[address] Ryan MD CHEMISTRY ORDERABLES [facility] CLIA# [id number] [address] [place] [address] * (ABNORMAL) CBC WITH DIFFERENTIAL (03/15/2012 1:05 PM CDT) WBC 11.8(H) 4.0 - 9.8 K/uL [facility] RBC 4.39(L) 4.50 - 5.40 M/uL [facility] HEMOGLOBIN 12.9(L) 13.6 - 16.5 g/dL [facility] HEMATOCRIT 40.0 40.0 - 48.0 % [facility] MCV 91.1 82.0 - 99.0 fL [facility] MCH 29.4 27.2 - 32.6 pg [facility] MCHC 32.3 31.5 - 35.5 % [facility] PLATELETS 336 140 - 350 K/uL [facility] MPV 9.1(L) 9.3 - 12.4 fL [facility] RDW 14.6(H) 11.5 - 14.5 % [facility] RDW-STDEV 49.8(H) 37.1 - 48.7 fL [facility] - [facility] NEUTROPHILS 86(H) 45 - 70 % [facility] LYMPHOCYTES 7(L) 16 - 45 % [facility] MONOCYTES 6 3 - 13 % [facility] EOSINOPHILS 0 0 - 7 % [facility] - . [facility] BASOPHILS 0 0 - 2 % [facility] NEUTROPHIL ABSOLUTE 10.20(H) 1.90 - 7.00 K/uL [facility] LYMPHOCYTE ABSOLUTE 0.87 0.70 - 4.50 K/uL [facility] MONOCYTE ABSOLUTE 0.70 0.10 - 1.30 K/uL [facility] EOSINOPHIL ABSOLUTE 0.03 0.00 - 0.70 K/uL [facility] - . [facility] BASOPHILS ABSOLUTE 0.01 0.00 - 0.20 K/uL [facility] Blood specimen (specimen) 03/15/2012 1:05 PM CDT 03/15/2012 1:[address] Ryan MD HEMATOLOGY ORDERABLE S [facility]# [id number] [address] [facility] [place] [address] documented in this encounter Visit Diagnoses Not on filedocumented in this encounter Administered Medications Inactive Administered Medications - up to 3 most recent administrations Medication Order MAR Action Action Date Dose Rate Site diphenhydrAMINE (BENADRYL) 50 mg in sodium chloride 0.9 % 50 mL IVPB 50 mg, IV, ONE TIME ONLY, 1 dose, On Rach 03/15/12 at 1530, Routine Given 03/15/2012 3:25 PM CDT 50 mg 204 mL/hr inFLIXimab (REMICADE) 375 mg in sodium chloride 0.9 % 250 mL IVPB 375 mg, IV, ONE TIME ONLY, 1 dose, On 03/15/12 at 1345, Routine Given 03/15/2012 1:37 PM CDT 375 mg 125 mL/hr methylPREDNISolone sodium succinate (SOLU-MEDROL) 40 mg in sodium chloride 0.9 % 50 mL IVPB 40 mg, IV, ONE TIME ONLY, 1 dose, On Rach 03/15/12 at 1530, Routine Given 03/15/2012 3:46 PM CDT 40 mg 204 mL/hr sodium chloride 0.9% bolus solution 250 mL 250 mL, IV, ONE TIME ONLY, 1 dose, On Rach 03/15/12 at 1315, at 50 mL/hr, Administer over 5 Hours, Routine Given 03/15/2012 1:37 PM CDT 250 mL 50 mL/hr documented in this encounter Care Teams Academic Adviser Relationship Specialty Start Date End Date Martin Kelley MD PCP - General Internal Medicine 02/16/12 08/14/17 documented as of this encounter
--- OUTSIDE RECORDS SUMMARY | 2024-10-24 05:34 | XMS_ITS | Encounter Summary ---
Author Organization [facility] Address [address] [place] [address] Care Team Providers Care Manager Of Disaster Recovery Name Role Phone Jasiel Freeman MD Primary Care Provider Encounter Details Date Type Department Care Team (Late st Contact Info) Description 07/26/2012 [facility] GASTRO[facility]Y [address] [place] [address] Lane Ryan MD NO ADDRESS [...] [place] [address] [place] [address] Kitty Dover, ANP [address] [place] [address] documented as of this encounter Visit Diagnoses Diagnosis Ulcerative colitis- Primary Ulcerative colitis, unspecified documented in this encounter Additional Health Concerns Infection Onset Date Last Indicated Resolved Time R/O C. diff 08/11/2022 08/10/2022 08/11/2022 2:45 PM CDT R/O C. diff 12/11/2022 12/09/2022 12/11/2022 1:26 PM DIRECTOR OF CLINICAL EDUCATION R/O C. diff 10/17/2024 10/17/2024 10/17/2024 6:55 PM DIRECTOR OF CLINICAL EDUCATION documented as of this encounter Care Teams Manager Of Disaster Recovery Relationship Specialty Start Date End Date Jasiel Freeman MD [address] [place] [phone] PCP - General Family Practice 08/15/17 documented as of this encounter
--- OUTSIDE RECORDS SUMMARY | 2024-10-24 05:34 | XMS_ITS | Encounter Summary ---
Author Organization [facility] Address [address] [place] [address] Care Team Providers Care Densitometer Reader Name Role Phone Martin Kelley MD Primary Care Provider [phone] Reason for Visit * Reason Onset Date Comments New Prescription Request 01/29/2013 Encounter Details Date Type Department Care Team (Late st Contact Info) Description 01/29/2013 Telephone [facility] GASTROENTEROLOGY [address] [facility] [address] [place] [address] Lane Ryan MD NO ADDRESS [...] Telephone Encounter - Lane Ryan MD - 01/29/2013 4:56 PM CDT Believes pouchitis flaring--begin flagyl 500 tid jf * Telephone Encounter - Ada Tan - 01/29/2013 9:22 AM CDT Pls call pt to discuss his symptoms.He is not sure if it is flu or if he is having a flare up and needs Flagyl? [phone] documented in this encounter Plan of Treatment Upcoming Encounters Date Type Department Care Team (Late st Contact Info) Description 02/13/2025 10:30 AM CDT Office Visit [facility] IBD and Gastroenterology Center [place] [address] [place] [address] Kitty Dover, [facility] [address] [place] [address] [place] [address] documented as of this encounter Visit Diagnoses Diagnosis Pouchitis- Primary documented in this encounter Care Teams Densitometer Reader Relationship Specialty Start Date End Date Martin Kelley MD PCP - General Internal Medicine 02/16/12 08/14/17 documented as of this encounter
--- OUTSIDE RECORDS SUMMARY | 2024-10-24 05:34 | XMS_ITS | Encounter Summary ---
Author Organization [facility] Address [address] [place] [address] Care Team Providers Care Director Of Property Management Name Role Phone Martin Kelley MD Primary Care Provider [phone] Reason for Visit * Reason Comments Abdominal Pain Pt presents to ED wi th c/o abdominal pain onset Monday evening; describes pain as generalized cramping to lower abdomen; pt has hx of ulcerative colitis with colectomy; reports diarrhea at baseline but more frequent since onset of sx; +chills, denies N/V, dysuria * Auth/Cert - Closed Specialty Diagnoses / Procedures Referred By Contac t Referred To Contact Emergency Medicine [facility] Emergency Dept [address] [place] [address] Referral ID Status Reason Start Date Expiration Date Visits Re quested Visits Authorized [id number] Closed 1 1 Encounter Details Date Type Department Care Team (Latest Contact Info) Description 06/26/2012 12:03 AM CDT - 06/27/2012 5:22 PM CDT Hospital Encounter [facility] [address] [place] [address] Johny Muniz DO NO ADDRESS ON FILE Myrtle Valdovinos MD NO ADDRESS ON FILE James Pang MD [address] [facility] [address] [place] [address] Abdominal pain Discharge Disposition: Home or Self Care Social [...] Sign Reading Time Taken Comments Blood Pressure 114/73 06/27/2012 4:00 PM CDT Pulse 83 06/27/2012 4:00 PM CDT Temperature 36.7 ??C (98 ??F) 06/27/2012 4:00 PM CDT Respiratory Rate 18 06/27/2012 4:00 PM CDT Oxygen Saturation 98% 06/27/2012 4:00 PM CDT Inhaled Oxygen Concentration - - Weight 81.6 kg (180 lb) 06/27/2012 6:25 AM CDT Height 175.3 cm (5' 9 ) 06/26/2012 5:06 AM CDT Body Mass Index 26.58 06/26/2012 5:06 AM CDT documented in this encounter Discharge Summaries * James Pang MD - 06/27/2012 4:33 PM CDT [facility] Adult Hospitalist Discharge Summary Patient Name: Edgardo Elkins / 41 y.o. / male : 1970 Primary Care Physician: Martin Kellye MD Date of Admission: 06/26/2012 Date of Discharge : 06/27/2012 Admitting Diagnoses: 1. Exacerbation of Ulcerative Colitis 2. Asthma Discharge Diagnoses: 1. Exacerbation of Ulcerative Colitis 2. Bacteremia (With Strep Viridans) 3. Asthma MEDICATIONS Discharge medications and new prescriptions: Current Discharge Medication List START taking these medications Details HYDROcodone-acetaminophen (NORCO) 5-325 mg Oral tablet Take 1 Tab by mouth every 4 hours as needed for Pain, Moderate. Qty: 40 Tab, Refills: 0 ciprofloxacin (CIPRO) 500 mg Oral tablet Take 1 Tab by mouth every 12 hours. Qty: 20 Tab, Refills: 0 amoxicillin-clavulanate (AUGMENTIN) 875-125 mg Oral tablet Take 1 Tab by mouth every 12 hours. Qty: 20 Tab, Refills: 0 CONTINUE these medications which have NOT CHANGED Details predniSONE (DELTASONE) 10 mg Oral tablet Qd OTHER VSL # 3 LABEL: 2 BID Qty: 60 Each, Refills: 3 STOP taking these medications IBUPROFEN IB ORAL Comments: Reason for Stopping: Consults: Significant Diagnostic Studies: CT abd / pelvis revealed small bowel wall thickening suggestive of recurrent IBD. Labs and studies that are pending or need follow-up: Nil Discharge Exam: Patient Vitals for the past 24 hrs: BP Temp Temp src Pulse Resp SpO2 Weight 06/27/12 1600 114/73 mmHg 98 ??F (36.7 ??C) Oral 83 18 98 % - 06/27/12 1200 117/63 mmHg 98.3 ??F (36.8 ??C) Oral 78 16 97 % - 06/27/12 0800 129/72 mmHg 97.9 ??F (36.6 ??C) Oral 84 16 98 % - 06/27/12 0625 - - - - - - 180 lb (81.647 kg) 06/27/12 0356 118/68 mmHg 98.4 ??F (36.9 ??C) Oral 80 16 94 % - 06/27/12 0019 116/65 mmHg 98.2 ??F (36.8 ??C) Oral 83 18 95 % - 06/26/12 1914 125/75 mmHg 98.1 ??F (36.7 ??C) Oral 94 18 96 % - Chest: CTA bilaterally CV: RRR, nl S1. S2 Abd: positive BS, soft, NT, ND Ext: no cyanosis or edema Hospital Course: Patient is a 41 year old WM with h/o Ulcerative colitis admitted with 2 day h/o RLQ Abd. Pain. W/U did reveal findings consistent with exacerbation of Ulcerative Colitis / IBD. Seen by GI, Dr. Hardy.Patient's condition improved with supportive treatment including IVF / Ciprofloxacin / Morphine & Alton prn / Zofran prn. He was commenced on clear liquids & diet gradually advanced which he tolerated well. Hwever, his blood cxs were positive for Strep. Viridans. MARQUITA Muñoz was consulted. He recommended that patient be discharged on Augmentin for 10 days in addition to Cipro. Patient's symptoms greatly improved with above treatment. Discharge Condition: Stable. Disposition: Home Code Status: Full Patient instructions: Activity: As tolerated Diet: Low Residue / Fiber diet Wound Care: Not applicable Follow-up: Martin Kelley MD in 1-[address] Ryan as scheduled Dr. Ritter in 2 weeks More than 30 minutes were spent in this discharge activity. Signed: James Pang MD 06/27/2012, 4:34 PM documented in this encounter Discharge Instructions * Discharge Instructions* James Pang MD - 06/27/2012 4:46 PM CDT FOLLOW-UP Follow up with PCP, Dr. Kelley in 1-2 weeks Follow up with Dr. Ryan as scheduled. Follow up with Dr. Ritter in 2 weeks Prescriptions given? Yes and Printed ACTIVITY Your activity level is: increase activity as tolerated and no smoking. [facility] encourages all patients to decrease risks associated with smoking and second hand smoke exposure. If you smoke you are advised to quit. Ask your health care provider for advice if you need assistance to stop smoking. Avoid second-hand smoke exposure and do not let people smoke in your home. Please call [phone], our pulmonary rehabilitation department, to learn more about options to reduce your risks. DIET Your diet is: low residue/fiber PAIN Patient pain level at discharge 12/02, continue pain control therapies as prescribed. Edgardo Elkins will be discharged via wheelchair to home. Edgardo Elkins is accompanied by family member(s) and will be transported via private vehicle. documented in this encounter Medications at Time of Discharge Medication Sig Dispensed Refills Start Date End Date HYDROcodone-acetaminophen (NORCO) 5-325 mg Oral tablet Take 1 Tab by mouth every 4 hours as needed for Pain, Moderate. 40 Tab 0 06/27/2012 08/24/2017 ciprofloxacin (CIPRO) 500 mg Oral tablet Take 1 Tab by mouth every 12 hours. 20 Tab 0 06/27/2012 08/24/2017 amoxicillin-clavulanate (AUGMENTIN) 875-125 mg Oral tablet Take 1 Tab by mouth every 12 hours. 20 Tab 0 06/27/2012 08/24/2017 predniSONE (DELTASONE) 10 mg Oral tablet Qd 08/24/2017 OTHER VSL # 3 LABEL: 2 BID 60 Each 3 04/11/2012 08/24/2017 documented as of this encounter Progress Notes * Luciana Hardy, DO - 06/27/2012 12:05 PM CDT INPATIENT PROGRESS NOTE LILLIE Elkins 1970 06/27/2012 12:05 PM Subjective: Chart reviewed. 4BM's since Midnight, non bloody. Some tenesmus. Mild cramping. Otherwise feeling better and tolerating solid food. Wants to go home. Intake/Output Summary (Last 24 hours) at 06/27/12 1205 Last data filed at 06/27/12 0806 Gross per 24 hour Intake 4249.17 ml Output 975 ml Net 3274.17 ml BP 117/63 Pulse 78 Temp(Src) 98.3 ??F (36.8 ??C) (Oral) Resp 16 Ht 5' 9 (1.753 m) Wt 180lb (81.647 kg) BMI 26.58 kg/m2 SpO2 97% Physical Exam: General: young, white male, WD/WN. HEENT: sclera anicteric, conjunctiva without pallor Abdomen: +mild ttp lower abd, no guarding, ND, soft Extremities: no cyanosis or edema Psych: Normal affect Labs/Imaging: Lab Results Component Value Date WBC 4.6 06/27/2012 HEMOGLOBIN 11.2* 06/27/2012 HEMATOCRIT 35.9* 06/27/2012 PLATELETS 266 06/27/2012 MCV 88.6 06/27/2012 Lab Results Component Value Date SODIUM 137 06/27/2012 POTASSIUM 3.9 06/27/2012 CHLORIDE 106 06/27/2012 CO2 24 06/27/2012 CALCIUM 8.4* 06/27/2012 BUN 8 06/27/2012 CREATININE 0.94 06/27/2012 GLUCOSE 98 06/27/2012 TOTAL PROTEIN 5.9* 06/27/2012 ALBUMIN 3.1* 06/27/2012 BILIRUBIN TOTAL 0.3 06/27/2012 ALKALINE PHOSPHATASE 51 06/27/2012 AST 17 06/27/2012 ALT 24 06/27/2012 Imaging Studies: CT A/P with contrast 06/26: IMPRESSION: As was seen on study of 02/22/2012 there is circumferential wall thickening of small bowel proximal to the ileal anal anastomosis suggesting a recurrent inflammatory bowel disease. Distal pouch biopsies from 06/13: Sections of the ileum biopsy show fragments of small intestinal mucosa with diffuse mild acute and chronic inflammation and edematous, mildly distorted villi. The active inflammation is predominantly stroma, but there is some infiltration of crypt and surface epithelium. No discrete erosions or ulcers are seen. There is mild crypt distortion and shortfall, consistent with chronicity. No granulomas are seen. There is no evidence of dysplasia. The distal pouch biopsies have markedly inflamed and distorted fragments of small intestinal mucosa with focal ulceration, granulation tissue, and fibrinopurulent exudate. There is evidence of chronicity, with crypt distortion, short fall, and pyloric metaplasia. No granulomas are seen. 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 There is no evidence of dysplasia. The appearance is compared to the previous biopsies ([id number]) from February 2012, and both show similar histologic features. Impression/Plan: 1. Abdominal pain, diarrhea, history of UC, endoscopic evidence of Crohn's disease, biopsies of which showed pouchitis and chronicity with mild crypt distortion: mild improvement, on Cipro, darwin diet.Patient to resume maintenance dose of Prednisone 10mg qdaily this evening. Patient to f/u with Dr. Ryan, he currently has apt scheduled for later this month. D/w Dr. Hardy. Ok to DC from GI standpoint. I have spent 15 minutes of time at the patient's bedside and on the patient's hospital floor. Whitley Nichols PA-C [facility] Dig[facility]ive Disease Pager:[phone] I have discussed the case with the PA and have reviewed the note as entered and agree with the assessment and plan with notable amendments, if any, mentioned below. * James Pang MD - 06/27/2012 12:05 PM CDT [facility] Adult Hospitalist Progress Note Admit Date: 06/26/2012 Date of Note: 06/27/2012, 12:05 PM PCP: Martin Kelley MD LOS: 1 day Previous history of present illness, review of systems, medications, labs, studies, notes, orders and consults have been reviewed today. Subjective: No new complaints. Tolerating diet well. Blood cxs positive for Strep. Viridans. Objective: BP 129/72 Pulse 84 Temp(Src) 97.9 ??F (36.6 ??C) (Oral) Resp 16 Ht 5' 9 (1.753 m) Wt 180lb (81.647 kg) BMI 26.58 kg/m2 SpO2 98% General: a 41 year old well nourished WM, lying comfortably in bed. Not in any distress / discomfort. HEENT: No jaundice. MM pink. Neck: No JVD, no thyroid enlargement, no lymphadenopathy, no bruits, no neck rigidity. Lungs: CTA bilaterally CV: RRR, nl S1, S2, no significant murmur, rubs, or gallops Abd: Soft, tenderness RLQ of abdomen, no palpable masses, Bowel sounds present. Ext: no clubbing, cyanosis, or edema Skin: no obvious rashes Neuro: alert and oriented and answers questions appropriately. CN 2-12 grossly intact. Psychological: Not depressed. Not anxious. Data Base: I have reviewed today's labs, if any. Assessment/Plan: 1. Ulcerative colitis: Abdominal pain possibly secondary to exacerbation of Ulcerative Colitis. CRPelevated at 8.0. Findings on CT scan suggestive of recurrent IBD. Continue with IVF / Morphine prn / Zofran prn. Seen by Dr. Hardy, GI. Appreciate consult. Patient tolerating diet well. 2. Abdominal Pain: Most likely secondary to recurrent Ulcerative Colitis. 3. Bacteremia: Blood cxs positive for Strep Viridans (1/2 bottles). Of uncertain significance. Willconsult ID & obtain their advise. 4. Asthma: History of asthma in childhood. No symptoms at present time. 5. Prophylaxis: DVT prophylaxis with SCD's. 6. Disposition: Patient will go home on discharge. Inpatient stay of possibly 2- 3 days. No discharge needs anticipated at this time. Further plans and recommendations pending the above results. DVT Prophylaxis - Current Diet Fiber Restricted Benito: IV: PT/OT: Current Planned Disposition - Plan discussed with patient; questions answered; patient agrees with current plan. Current Code Status -Prior Approx min were spent in the care of this patient today; this may include family conference, nursing conference and discussion with any performance management consultant. James Pang MD [facility] Hospitalist [phone] (p) documented in this encounter H&P Notes * James Pang MD - 06/26/2012 8:55 AM CDT [facility] Adult Hospitalist Admission H & P Patient Name: Edgardo Elkins Primary Care Doctor: Martin Kelley MD Date of Admission: 06/26/2012 Date of Service: 06/26/2012 Chief Complaint: RLQ abd pain / Worsening diarrhea. HPI: Patient is a 41 year old WM admitted through ER with a 2 day h/o worsening RLQ abd. Pain associated with worsening diarrhea. No h/o nausea or vomiting. No h/o fever / chills. No h/o cough / expectoration. No h/o hematemesis / melena. No h/o CP / dyspnea. Patient does have a significant h/o Ulcerative Colitis & sees Dr. Ryan, GI. 14 point ROS completed. Please see ROS for more details. Work up in ER did reveal small bowel wall thickening on CT abdomen / pelvis suggestive of recurrentIBD. Past Medical History Diagnosis Date ??? Ulcerative colitis ??? Unspecified adverse effect of anesthesia violent after 1st surgery ??? Ulcerative colitis ??? Asthma as a child Past Surgical History Procedure Date ??? Hx colectomy 2001 ??? Pr colonoscopy,diagnostic 12/08/2009 COLONOSCOPY performed by LOUISE SOTELO at [facility] ??? Pr sigmoidoscopy,diagnostic 02/16/2012 SIGMOIDOSCOPY FLEXIBLE performed by Louise Sotelo MD at [facility] ??? Pr endoscopy of bowel pouch 02/16/2012 POUCHOSCOPY performed by oLuise Sotelo MD at [facility] ??? Pr upper gi endoscopy,diagnosis 02/28/2012 ESOPHAGOGASTRODUODENOSCOPY performed by Lane Ryan MD at [facility] ??? Pr small bowel endoscopy,biopsy 02/28/2012 BOWEL SMALL BIOPSY ENDOSCOPIC performed by Lane Ryan MD at [facility] ??? Pr small bowel endoscopy,past 2nd duod 06/12/2012 SMALL BOWEL ENTEROSCOPY performed by Lane Ryan MD at [facility] ??? Pr dilation rectal stricture w anest 06/12/2012 RECTAL STRICTURE DILATATION performed by Lane Ryan MD at [facility] Current Medications: Prescriptions prior to admission Medication Sig Dispense Refill ??? predniSONE (DELTASONE) 10 mg Oral tablet Qd ??? IBUPROFEN IB ORAL Prn pain ??? OTHER VSL # 3 LABEL: 2 BID 60 Each 3 Medication Allergies:No Known Allergies Family History Problem Relation Age of Onset ??? Heart Disease Father ??? Hypertension Mother ??? Healthy Sister ??? Healthy Brother ??? Colon Cancer Neg Hx Social History: History Substance Use Topics ??? Smoking status: Former Smoker -- 0.5 packs/day for 10 years Types: Cigarettes ??? Smokeless tobacco: Not on file Comment: off & on ??? Alcohol Use: Yes rarely Review of Systems: Constitutional: no fever, chills, appetite changes, weight loss Eyes: no eye pain, visual loss, blurry vision Ears: no hearing loss, or tinnitus Mouth: no oral ulcers, sore throat Endocrine: no polyuria, polydipsia Pulm: no shortness of breath, cough, hemoptysis CV: no chest pain, PND, orthopnea, lower extremity edema GI: RLQ abdominal pain, no n/v, no BRBPR, no melena, diarrhea +, no constipation : no hematuria, dysuria, frequency Musc: no swollen joints Skin: no new skin rashes Neuro: no focal motor or sensory changes. Psychiatric: no hallucinations Physical Exam: Patient Vitals for the past 8 hrs: BP Temp Temp src Pulse Resp SpO2 Height Weight 06/26/12 0700 109/70 mmHg 97 ??F (36.1 ??C) Oral 82 18 95 % - - 06/26/12 0506 110/67 mmHg 98.2 ??F (36.8 ??C) Oral 87 18 96 % 5' 9 (1.753 m) 176 lb 4.8 oz (79.969kg) 06/26/12 0149 109/72 mmHg - - 92 18 100 % - - General: This is a in no obvious distress HEENT: Head is NC/AT, PERRL. EOMI, conjuctiva and sclera are nonicteric, oropharynx is moist without obvious lesions Neck: supple, carotids are + and symmetric, no significant adenopathy Lungs: CTA bilaterally CV: RRR, nl S1, S2, no significant murmur, rubs, or gallops Abd: Soft, tenderness RLQ of abdomen, no palpable masses, Bowel sounds present. Ext: no clubbing, cyanosis, or edema Skin: no obvious rashes Neuro: alert and oriented and answers questions appropriately. CN 2-12 grossly intact. Psychological: No depressed. Not anxious. Data Base: Lab: Results for orders placed during the hospital encounter of 06/26/12 (from the past 24 hour(s)) C-REACTIVE PROTEIN Component Value Range CRP 8.0 (*) 0.0 - 0.8 (mg/dL) CBC WITH DIFFERENTIAL Component Value Range WBC 7.6 4.0 - 9.8 (K/uL) RBC 4.61 4.50 - 5.40 (M/uL) HEMOGLOBIN 13.0 (*) 13.6 - 16.5 (g/dL) HEMATOCRIT 40.4 40.0 - 48.0 (%) MCV 87.6 82.0 - 99.0 (fL) MCH 28.2 27.2 - 32.6 (pg) MCHC 32.2 31.5 - 35.5 (%) PLATELETS 299 140 - 350 (K/uL) MPV 9.9 9.3 - 12.4 (fL) RDW 14.5 11.5 - 14.5 (%) RDW-STDEV 46.4 37.1 - 48.7 (fL) NEUTROPHILS 70 45 - 70 (%) LYMPHOCYTES 10 (*) 16 - 45 (%) MONOCYTES 18 (*) 3 - 13 (%) EOSINOPHILS 1 0 - 7 (%) BASOPHILS 0 0 - 2 (%) NEUTROPHIL ABSOLUTE 5.31 1.90 - 7.00 (K/uL) LYMPHOCYTE ABSOLUTE 0.74 0.70 - 4.50 (K/uL) MONOCYTE ABSOLUTE 1.39 (*) 0.10 - 1.30 (K/uL) EOSINOPHIL ABSOLUTE 0.09 0.00 - 0.70 (K/uL) BASOPHILS ABSOLUTE 0.03 0.00 - 0.20 (K/uL) COMPREHENSIVE METABOLIC PANEL Component Value Range SODIUM 141 135 - 145 (mmol/L) POTASSIUM 3.6 3.5 - 4.9 (mmol/L) CHLORIDE 104 96 - 108 (mmol/L) CO2 24 22 - 30 (mmol/L) CALCIUM 8.5 (*) 8.6 - 10.2 (mg/dL) BUN 17 6 - 20 (mg/dL) CREATININE 1.04 0.67 - 1.17 (mg/dL) GLUCOSE 113 (*) 65 - 99 (mg/dL) TOTAL PROTEIN 6.7 6.3 - 8.6 (g/dL) ALBUMIN 3.9 3.4 - 4.8 (g/dL) BILIRUBIN TOTAL 0.4 0.2 - 1.0 (mg/dL) ALKALINE PHOSPHATASE 71 40 - 129 (U/L) AST 28 12 - 38 (U/L) ALT 34 0 - 41 (U/L) GFR, >60 >=60 (mL/min/1.7 sq meter) GFR >60 >=60 (mL/min/1.7 sq meter) BLOOD CULTURE Component Value Range PRELIMINARY MICRO REPORT Pending BLOOD CULTURE Component Value Range PRELIMINARY MICRO REPORT Pending LACTIC ACID Component Value Range LACTIC ACID 0.9 0.5 - 2.2 (mmol/L) URINALYSIS WITH REFLEX CULTURE Component Value Range URINE CULTURE ORDER Culture ordered URINALYSIS Component Value Range COLOR UA Yellow CLARITY UA Clear Clear SPECIFIC GRAVITY UA 1.023 1.001 - 1.035 PH UA 5.5 5.0 - 8.0 LEUKOCYTE ESTERASE UA Trace (*) Negative NITRITE UA Negative Negative PROTEIN UA Trace (*) Negative GLUCOSE UA Negative Negative KETONES UA Trace (*) Negative UROBILINOGEN UA <1 <=1 (mg/dL) BILIRUBIN UA Negative Negative BLOOD UA Negative Negative WBC UA 8 (*) 0 - 3 (/HPF) RBC UA 1 0 - 3 (/HPF) BACTERIA UA 1+ (*) None Seen (/HPF) EPITHELIAL CELLS, URINE 0-2 CLOSTRIDIUM DIFFICILE TOXIN Component Value Range C DIFF TOXIN PCR RESULT Negative Negative C DIFF TOXIN PCR SOURCE Stool GIARDIA & CRYPTOSPORIDIUM ANTIGEN Component Value Range FINAL MICRO REPORT Value: Negative Giardia antigen by ICT assay. Negative Cryptosporidium antigen by ICT assay. -- Note: A negative does not rule out infection. ECG: Chest X ray: Assessment / Plan: 1. Ulcerative colitis: Abdominal pain possibly secondary to exacerbation of Ulcerative Colitis. CRPelevated at 8.0. Findings on CT scan suggestive of recurrent IBD. Continue with IVF / Morphine prn / Zofran prn. Keep patient NPO for now. As per patient, he did have a total colectomy [address] Ryan, GI consulted who is his regular mine deputy. Await his opinion. Further management as per his recommendations. 2. Abdominal Pain: Most likely secondary to recurrent Ulcerative Colitis. 3. Asthma: History of asthma in childhood. No symptoms at present time. 4. Prophylaxis: DVT prophylaxis with SCD's. 5. Disposition: Patient will go home on discharge. Inpatient stay of possibly 2- 3 days. No discharge needs anticipated at this time. Further plans and recommendations pending the above results. James Pang MD [phone] ([phone] documented in this encounter Consult Notes * Raleigh Ritter MD - 06/27/2012 2:39 PM CDTAssociated Order(s): IP CONSULT TO INFECTIOUS DISEASES Infectious Diseases Consult Note Patient Name: Edgardo Elkins Primary Care Doctor: Martin Kelley MD Date of Admission: 06/26/2012 Date of Service: 06/27/2012 Chief Complaint: Abdominal Pain HPI: Edgardo Elkins is a 41 y.o. male who was in his USOH until Monday evening when he developed significant RLQ pain. Patient has h/o ulcerative colitis and was recently in the hospital for ulcerative colitis flair in February and after IV antibiotics and steroids improved and was sent home. Patient is being seen by Dr. Ryan and had a recent colonoscopy done last week which showed anal stricture, changesin chronicity of disease within the ileal segment and pouch. Patient so far has improved with IV antibiotics and feels he is ready to go home. Patient did have blood cultures done on admission with 1/2 positive for strep viridans. Patient denies any fevers, chills or lightheadedness/dizziness. Patient also denies any N/V, and states his bowels have now normalized. Patient did have recent dental work. Past Medical History Diagnosis Date ??? Ulcerative colitis ??? Unspecified adverse effect of anesthesia violent after 1st surgery ??? Ulcerative colitis ??? Asthma as a child Past Surgical History Procedure Date ??? Hx colectomy 2001 ??? Pr colonoscopy,diagnostic 12/08/2009 COLONOSCOPY performed by LOUISE SOTELO at [facility] ??? Pr sigmoidoscopy,diagnostic 02/16/2012 SIGMOIDOSCOPY FLEXIBLE performed by Louise Sotelo MD at [facility] ??? Pr endoscopy of bowel pouch 02/16/2012 POUCHOSCOPY performed by Louise Sotelo MD at [facility] ??? Pr upper gi endoscopy,diagnosis 02/28/2012 ESOPHAGOGASTRODUODENOSCOPY performed by Lane Ryan MD at [facility] ??? Pr small bowel endoscopy,biopsy 02/28/2012 BOWEL SMALL BIOPSY ENDOSCOPIC performed by Lane Ryan MD at [facility] ??? Pr small bowel endoscopy,past 2nd duod 06/12/2012 SMALL BOWEL ENTEROSCOPY performed by Lane Ryan MD at [facility] ??? Pr dilation rectal stricture w anest 06/12/2012 RECTAL STRICTURE DILATATION performed by Lane Ryan MD at [facility] Current Medications: Prior to Admission Medications Medication Last Dose Informant Patient Reported? Taking? predniSONE (DELTASONE) 10 mg Oral tablet 06/24/2012 at Unknown Yes Yes Qd IBUPROFEN IB ORAL 06/25/2012 at Unknown Yes Yes Prn pain OTHER Past Week at Unknown No Yes VSL # 3 LABEL: 2 BID Medication Allergies:No Known Allergies Family History: Family History Problem Relation Age of Onset ??? Heart Disease Father ??? Hypertension Mother ??? Healthy Sister ??? Healthy Brother ??? Colon Cancer Neg Hx Social History: History Substance Use Topics ??? Smoking status: Former Smoker -- 0.5 packs/day for 10 years Types: Cigarettes ??? Smokeless tobacco: Not on file Comment: off & on ??? Alcohol Use: Yes rarely Review of Systems: GEN: No weight loss or weight gain, energy level stable Skin: No rashes or eruptions HEENT: no sinus complaints Lungs: No cough, shortness of breath, or wheezing Cardiac: No CP, SOB,HX of MS, or angina GI: No n/v, no abdominal pain or change in bowel habits : No dysuria Musculoskeletal: No back pain, neck pain or joint pain or swelling NEURO: no prior cva or seizure All other ROS reviewed and are negative Physical Exam: BP 117/63 Pulse 78 Temp(Src) 98.3 ??F (36.8 ??C) (Oral) Resp 16 Ht 5' 9 (1.753 m) Wt 180lb (81.647 kg) BMI 26.58 kg/m2 SpO2 97%, Temp (24hrs), Av.2 ??F (36.8 ??C), Min:97.9 ??F (36.6 ??C), Max:98.4 ??F (36.9 ??C) General: Alert, cooperative, no distress, appears stated age. Head: Normocephalic, without obvious abnormality, atraumatic. Neck: Supple, symmetrical, trachea midline. No JVD. Back: Symmetric, no curvature. ROM normal. Lungs: Clear to auscultation bilaterally. Heart: Regular rate and rhythm, S1, S2 normal, no murmur, click, rub or gallop. Abdomen: Soft, non-tender. Bowel sounds normal. No masses, No organomegaly. Extremities: Extremities normal, atraumatic. No cyanosis. No edema. Skin: Skin color, texture, turgor normal. No rashes or lesions. Data Base: Results for orders placed during the hospital encounter of 06/26/12 (from the past 24 hour(s)) CBC WITH DIFFERENTIAL Component Value Range WBC 4.6 4.0 - 9.8 (K/uL) RBC 4.05 (*) 4.50 - 5.40 (M/uL) HEMOGLOBIN 11.2 (*) 13.6 - 16.5 (g/dL) HEMATOCRIT 35.9 (*) 40.0 - 48.0 (%) MCV 88.6 82.0 - 99.0 (fL) MCH 27.7 27.2 - 32.6 (pg) MCHC 31.2 (*) 31.5 - 35.5 (%) PLATELETS 266 140 - 350 (K/uL) MPV 9.7 9.3 - 12.4 (fL) RDW 14.4 11.5 - 14.5 (%) RDW-STDEV 46.8 37.1 - 48.7 (fL) NEUTROPHILS 57 45 - 70 (%) LYMPHOCYTES 19 16 - 45 (%) MONOCYTES 21 (*) 3 - 13 (%) EOSINOPHILS 3 0 - 7 (%) BASOPHILS 0 0 - 2 (%) NEUTROPHIL ABSOLUTE 2.64 1.90 - 7.00 (K/uL) LYMPHOCYTE ABSOLUTE 0.86 0.70 - 4.50 (K/uL) MONOCYTE ABSOLUTE 0.96 0.10 - 1.30 (K/uL) EOSINOPHIL ABSOLUTE 0.13 0.00 - 0.70 (K/uL) BASOPHILS ABSOLUTE 0.02 0.00 - 0.20 (K/uL) COMPREHENSIVE METABOLIC PANEL Component Value Range SODIUM 137 135 - 145 (mmol/L) POTASSIUM 3.9 3.5 - 4.9 (mmol/L) CHLORIDE 106 96 - 108 (mmol/L) CO2 24 22 - 30 (mmol/L) CALCIUM 8.4 (*) 8.6 - 10.2 (mg/dL) BUN 8 6 - 20 (mg/dL) CREATININE 0.94 0.67 - 1.17 (mg/dL) GLUCOSE 98 65 - 99 (mg/dL) TOTAL PROTEIN 5.9 (*) 6.3 - 8.6 (g/dL) ALBUMIN 3.1 (*) 3.4 - 4.8 (g/dL) BILIRUBIN TOTAL 0.3 0.2 - 1.0 (mg/dL) ALKALINE PHOSPHATASE 51 40 - 129 (U/L) AST 17 12 - 38 (U/L) ALT 24 0 - 41 (U/L) GFR, >60 >=60 (mL/min/1.7 sq meter) GFR >60 >=60 (mL/min/1.7 sq meter) Assessment: 1. Ileitis 2. H/O Ulcerative Colitis s/p colectomy with ileoanal anastomosis 3. Immunocompromised state due to administration of Remicade 4. Strep Viridans Bacteremia, low grade: Possible sources include GI tract and oral cavity. Plan: Will treat with Augmentin 875 mg PO BID for 10 days along with Cipro. No objection to discharge D/w Dr Riya Santos, DO [phone] PGY3 * Luciana Hardy, DO - 06/26/2012 10:55 AM CDTAssociated Order(s): IP CONSULT TO GI History of Present Illness: Edgardo Elkins is a 41 y.o. male with histopry of UC s/p proctocolectomy with a ileal pouch anal anastomosis about ten years back for severe UC flare at that time. He was admitted in February for severe pouchitis/enteritis and was treated with prednisone which was slowly being tapered from 20 mg by 5 mg every two weeks, Remicade induction dosing with third dose on 04/11/12, ciprofloxocin and vancomycin. Pt had a reaction with remicade and plan on 06/04/12 per chart was to initiate steroids and benadryl before next remicade dosing which was to be given every two months vs changing over to cimzia - was to be discussed at next OV with Dr. Ryan in [facility]. Pt presents today with abdominal cramping with severity of 3-4/10 and increased stools up to 7-8 loose stools in 24 hours. He normally has 3-4 loose stools a day. 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 He wanted to get ahead of his flare up and presents to the ER for further evaluation and pain management. He recenly had an ileoscopy with Dr. 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 The endoscopy showed diffusely inflamed small bowel mucosa with scattered superficial erosions up to 60 cm. Pt had discreet ulcers whichwas thought to be more consitent with crohn's disease within the pouch than pouchitis. Biopsies of the pouch and the ileum showed chronic acitve ileitis with ulceration of the small intestine and thepouch consistent with pouchitis. There was evidence of crypt distortion and chronicity without granulomas. Since admission pt notes taking MSO4 for pain management every three hours and reports his pain to be a 3/10 without pain meds. He has been taking ibuprofen at home for pain mangment as well. He Denies weight loss, melena, hematemesis, nausea, vomiting or hematochezia. He deneis skin rahses,joint pain, eye pain or discharge or back pain. He has had about 10- 12 episode of abodminal pain or flares over the past 10 years since his proctocolectomy and IPAA. He has been hospitalized three times - once during his previous surgery, second time last week and third time now. He feels somewhat better today with less BMs and pain. He reports for previous flares patient usually receives abx and he does better. Past History: Patient Active Problem List Diagnoses Date Noted ??? Abdominal pain 06/26/2012 ??? [...] 12/08/2009 COLONOSCOPY performed by LOUISE SOTELO at [facility] ??? Pr sigmoidoscopy,diagnostic 02/16/2012 SIGMOIDOSCOPY FLEXIBLE performed by Louise Sotelo MD at [facility] ??? Pr endoscopy of bowel pouch 02/16/2012 POUCHOSCOPY performed by Louise Sotelo MD at [facility] ??? Pr upper gi endoscopy,diagnosis 02/28/2012 ESOPHAGOGASTRODUODENOSCOPY performed by Lane Ryan MD at [facility] ??? Pr small bowel endoscopy,biopsy 02/28/2012 BOWEL SMALL BIOPSY ENDOSCOPIC performed by Lane Ryan MD at [facility] ??? Pr small bowel endoscopy,past 2nd duod 06/12/2012 SMALL BOWEL ENTEROSCOPY performed by Lane Ryan MD at [facility] ??? Pr dilation rectal stricture w anest 06/12/2012 RECTAL STRICTURE DILATATION performed by Lane Ryan MD at [facility] Prescriptions prior to admission Medication [...] Healthy Brother ??? Colon Cancer Neg Hx Review of Systems: History obtained from chart review and the patient General ROS: negative for weight changes, fever Psychological ROS: negative for anxiety or depressive symptoms Ophthalmic ROS: negative for visual changes, ocular redness or discharge Allergy and Immunology ROS: negative for itchy eyes, nasal congestion, sneezing, lymphadenopathy Hematological and Lymphatic ROS: negative for swollen glands or abnormal bleeding Respiratory ROS: negative for cough, shortness of breath, or wheezing Cardiovascular ROS: negative for chest pain or dyspnea on exertion Gastrointestinal ROS: (See HPI) Dermatological ROS: negative for skin rashes or unusual skin lesions Physical Exam: Filed Vitals: 06/25/12 2349 06/26/12 0149 06/26/12 0506 06/26/12 0700 BP: 98/69 109/72 110/67 109/70 Pulse: 59 92 87 82 Temp: 98.6 ??F (37 ??C) 98.2 ??F (36.8 ??C) 97 ??F (36.1 ??C) TempSrc: Oral Oral Oral Resp: 18 18 18 18 Height: 1.753 m (5' 9 ) 1.753 m (5' 9 ) Weight: 77.111 kg (170 lb) 79.969 kg (176 lb 4.8 oz) SpO2: 95% 100% 96% 95% General appearance: alert, in no distress Head: atraumatic, Normocephalic, without obvious abnormality Eyes: conjunctivae/corneas and lids clear. Neck: supple, symmetrical, trachea midline Lungs: clear to auscultation bilaterally, normal respiratory effort Heart: normal rate and regular rhythm, pulses 2+ Gastrointestinal: tympanic to percussion, Soft, non-tender. Bowel sounds normal. No hepatosplenomegaly Extremities/MSK: extremities normal, atraumatic, no cyanosis or edema Skin: Skin color, texture, turgor normal. No rashes or lesions Neurologic/Psych: Normal affect/mood, A&O X 3 Lymphatics: No adenopathy in inguinal and cervical I have reviewed the chart notes and labs and any available imaging. Results for orders placed during the hospital encounter of 06/26/12 (from the past 24 hour(s)) C-REACTIVE PROTEIN Component Value Range CRP 8.0 (*) 0.0 - 0.8 (mg/dL) CBC WITH DIFFERENTIAL Component Value Range WBC 7.6 4.0 - 9.8 (K/uL) RBC 4.61 4.50 - 5.40 (M/uL) HEMOGLOBIN 13.0 (*) 13.6 - 16.5 (g/dL) HEMATOCRIT 40.4 40.0 - 48.0 (%) MCV 87.6 82.0 - 99.0 (fL) MCH 28.2 27.2 - 32.6 (pg) MCHC 32.2 31.5 - 35.5 (%) PLATELETS 299 140 - 350 (K/uL) MPV 9.9 9.3 - 12.4 (fL) RDW 14.5 11.5 - 14.5 (%) RDW-STDEV 46.4 37.1 - 48.7 (fL) NEUTROPHILS 70 45 - 70 (%) LYMPHOCYTES 10 (*) 16 - 45 (%) MONOCYTES 18 (*) 3 - 13 (%) EOSINOPHILS 1 0 - 7 (%) BASOPHILS 0 0 - 2 (%) NEUTROPHIL ABSOLUTE 5.31 1.90 - 7.00 (K/uL) LYMPHOCYTE ABSOLUTE 0.74 0.70 - 4.50 (K/uL) MONOCYTE ABSOLUTE 1.39 (*) 0.10 - 1.30 (K/uL) EOSINOPHIL ABSOLUTE 0.09 0.00 - 0.70 (K/uL) BASOPHILS ABSOLUTE 0.03 0.00 - 0.20 (K/uL) COMPREHENSIVE METABOLIC PANEL Component Value Range SODIUM 141 135 - 145 (mmol/L) POTASSIUM 3.6 3.5 - 4.9 (mmol/L) CHLORIDE 104 96 - 108 (mmol/L) CO2 24 22 - 30 (mmol/L) CALCIUM 8.5 (*) 8.6 - 10.2 (mg/dL) BUN 17 6 - 20 (mg/dL) CREATININE 1.04 0.67 - 1.17 (mg/dL) GLUCOSE 113 (*) 65 - 99 (mg/dL) TOTAL PROTEIN 6.7 6.3 - 8.6 (g/dL) ALBUMIN 3.9 3.4 - 4.8 (g/dL) BILIRUBIN TOTAL 0.4 0.2 - 1.0 (mg/dL) ALKALINE PHOSPHATASE 71 40 - 129 (U/L) AST 28 12 - 38 (U/L) ALT 34 0 - 41 (U/L) GFR, >60 >=60 (mL/min/1.7 sq meter) GFR >60 >=60 (mL/min/1.7 sq meter) BLOOD CULTURE Component Value Range PRELIMINARY MICRO REPORT Pending BLOOD CULTURE Component Value Range PRELIMINARY MICRO REPORT Pending LACTIC ACID Component Value Range LACTIC ACID 0.9 0.5 - 2.2 (mmol/L) URINALYSIS WITH REFLEX CULTURE Component Value Range URINE CULTURE ORDER Culture ordered URINALYSIS Component Value Range COLOR UA Yellow CLARITY UA Clear Clear SPECIFIC GRAVITY UA 1.023 1.001 - 1.035 PH UA 5.5 5.0 - 8.0 LEUKOCYTE ESTERASE UA Trace (*) Negative NITRITE UA Negative Negative PROTEIN UA Trace (*) Negative GLUCOSE UA Negative Negative KETONES UA Trace (*) Negative UROBILINOGEN UA <1 <=1 (mg/dL) BILIRUBIN UA Negative Negative BLOOD UA Negative Negative WBC UA 8 (*) 0 - 3 (/HPF) RBC UA 1 0 - 3 (/HPF) BACTERIA UA 1+ (*) None Seen (/HPF) EPITHELIAL CELLS, URINE 0-2 CLOSTRIDIUM DIFFICILE TOXIN Component Value Range C DIFF TOXIN PCR RESULT Negative Negative C DIFF TOXIN PCR SOURCE Stool GIARDIA & CRYPTOSPORIDIUM ANTIGEN Component Value Range FINAL MICRO REPORT Value: Negative Giardia antigen by ICT assay. Negative Cryptosporidium antigen by ICT assay. -- Note: A negative does not rule out infection. Assessment: Active Problems: Abdominal pain Inflammatory bowel disease Impression/Plan: This is a pleasant 41 yo male with history of proctocolectomy and IPAA for extensive UC about ten years ago who presents with worsening abodminal cramping and increased loose bowel movements. He apparently has had several flares over the past ten years primarily managed with Abx per patient. His most recent endosocpy showed anal stricture and changes suggesting chronicity of disease within the ileal segment and pouch which suggests possible underlying Crohn's disease vs pouchitis. At this time I would recommend IV abx with ciprofloxocin and flagyl, await stool cultures and consider restartingprednisone for management of acute flare. I have strongly advised the patient to avoid NSAIDs such as ibuprofen to control the pain and will also recommend to wean off morphine. For cramping pain I would recommend using bentyl prn up to three times a day. DDX includes underlying Crohn's disease vs pouchitis vs SBBO especially within the pouch vs a functional bowel disorder but in the setting of abnormal endoscopy and increased CRP this is less likely. Consider adding probiotic with VSL#3 if symptoms continue. Pt can advance diet to a low residue diet. Will monitor clinical progress on abx andif patient continues to have symptoms can start steroids with prednisone 20 mg daily tomorrow. Thank you for allowing me to participate in the care of your patient. If I can provide any additional information or further assistance, please do not hesitate to call. documented in this encounter ED Notes * Tess Amor RN - 06/26/2012 3:44 AM CDT Pt resting on stretcher with no new complaints. Pt states pain is relieved since last morphine dose. A&OX4. NAD. * Tess Amor RN - 06/26/2012 2:25 AM CDT Pt resting on stretcher. No assessment changes since last entry. Pt awaiting results. * Johny Muniz, - 06/26/2012 1:33 AM CDT HISTORY OF PRESENT ILLNESS Edgardo Elkins, a 41 y.o. male presents to the ED with a Chief Complaint of Abdominal Pain HPI Comments: She presents with increased abdominal pain for the past 2 days. Patient has a chronicdiarrhea however at this time his bowel movements have increased. Not sure of fever however he feltwarm at home. Patient is a 41 y.o. male presenting with abdominal pain. The history is provided by the patient. Abdominal Pain The primary symptoms of the illness include abdominal pain. The primary symptoms of the illness do not include fever, fatigue, shortness of breath, nausea, vomiting, diarrhea, hematemesis, hematochezia or dysuria. The current episode started 2 days ago. The onset of the illness was gradual. The problem has not changed since onset. The patient has had a change in bowel habit. Symptoms associated with the illness do not include chills, anorexia, diaphoresis, heartburn, constipation, urgency, hematuria, frequency or back pain. Significant associated medical issues do not include PUD, GERD, inflammatory bowel disease, diabetes, sickle cell disease, gallstones, liver disease, substance abuse, diverticulitis, HIV, cardiac disease or kidney stones. REVIEW OF SYSTEMS Review of Systems Constitutional: Negative. Negative for fever, chills, diaphoresis, activity change and fatigue. HENT: Negative. Negative for sore throat, facial swelling, mouth sores, trouble swallowing, neck pain, neck stiffness and voice change. Eyes: Negative. Negative for photophobia, pain, discharge and itching. Respiratory: Negative. Negative for apnea, choking, chest tightness, shortness of breath, wheezing and stridor. Cardiovascular: Negative. Negative for chest pain and palpitations. Gastrointestinal: Positive for abdominal pain. Negative for heartburn, nausea, vomiting, diarrhea, constipation, blood in stool, hematochezia, anorexia and hematemesis. Genitourinary: Negative. Negative for dysuria, urgency, frequency, hematuria, flank pain and enuresis. Musculoskeletal: Negative. Negative for back pain, joint swelling and gait problem. Skin: Negative. Negative for color change, pallor and wound. Neurological: Negative. Negative for dizziness, tremors, seizures, syncope, weakness, light-headedness and numbness. Hematological: Negative. Negative for adenopathy. Does not bruise/bleed easily. Psychiatric/Behavioral: Negative. Negative for suicidal ideas, hallucinations, behavioral problems,sleep disturbance, dysphoric mood and decreased concentration. The patient is not hyperactive. PAST MEDICAL HISTORY REVIEWED Past Medical History Diagnosis Date ??? Ulcerative colitis ??? Unspecified adverse effect of anesthesia violent after 1st surgery ??? Ulcerative colitis ??? Asthma as a child Past Surgical History Procedure Date ??? Hx colectomy 2001 ??? Pr colonoscopy,diagnostic 12/08/2009 COLONOSCOPY performed by LOUISE SOTELO at [facility] ??? Pr sigmoidoscopy,diagnostic 02/16/2012 SIGMOIDOSCOPY FLEXIBLE performed by Louise Sotelo MD at [facility] ??? Pr endoscopy of bowel pouch 02/16/2012 POUCHOSCOPY performed by Louise Sotelo MD at [facility] ??? Pr upper gi endoscopy,diagnosis 02/28/2012 ESOPHAGOGASTRODUODENOSCOPY performed by Lane Ryan MD at [facility] ??? Pr small bowel endoscopy,biopsy 02/28/2012 BOWEL SMALL BIOPSY ENDOSCOPIC performed by Lane Ryan MD at [facility] ??? Pr small bowel endoscopy,past 2nd duod 06/12/2012 SMALL BOWEL ENTEROSCOPY performed by Lane Ryan MD at [facility] ??? Pr dilation rectal stricture w anest 06/12/2012 RECTAL STRICTURE DILATATION performed by Lane Ryan MD at [facility] Family History Problem Relation Age of Onset ??? Heart Disease Father ??? Hypertension Mother ??? Healthy Sister ??? Healthy Brother ??? Colon Cancer Neg Hx Social History Other Topics Concern ??? Not on file History Social History Main Topics ??? Smoking status: Former Smoker -- 0.5 packs/day for 10 years Types: Cigarettes ??? Smokeless tobacco: Not on file Comment: off & on ??? Alcohol Use: Yes rarely ??? Drug Use: No ??? Sexually Active: Patient Active Problem List Diagnoses Date Noted ??? Abdominal pain 06/26/2012 ??? [...] known allergies. HOME MEDICATIONS Patient's Home Medications Current Home Medications IBUPROFEN IB ORAL Prn pain OTHER VSL # 3 LABEL: 2 BID PREDNISONE (DELTASONE) 10 MG ORAL TABLET Qd Medications Modified during this Encounter Medications Discontinued during this Encounter PHYSICAL EXAM Initial Vitals BP 06/25/12 2349 98/69 mmHg Pulse 06/25/12 2349 59 Resp 06/25/12 2349 18 Temp 06/25/12 2349 98.6 ??F (37 ??C) Temp src 06/25/12 2349 Oral SpO2 06/25/12 2349 95 % Physical Exam Nursing note and vitals reviewed. Constitutional: He is oriented to person, place, and time. He appears well- developed and well-nourished. No distress. HENT: Head: Normocephalic and atraumatic. Nose: Nose normal. Mouth/Throat: Oropharynx is clear and moist. Eyes: Conjunctivae and EOM are normal. Pupils are equal, round, and reactive to light. Right eye exhibits no discharge. Left eye exhibits no discharge. Neck: Normal range of motion. Neck supple. No JVD present. No tracheal deviation present. No thyromegaly present. Cardiovascular: Normal rate, regular rhythm, normal heart sounds and intact distal pulses. Exam reveals no gallop and no friction rub. No murmur heard. Pulmonary/Chest: Effort normal. No stridor. No respiratory distress. He has no rales. Abdominal: Soft. Bowel sounds are normal. He exhibits no distension and no mass. There is no tenderness. There is no rebound. Musculoskeletal: Normal range of motion. He exhibits no edema and no tenderness. Lymphadenopathy: He has no cervical adenopathy. Neurological: He is alert and oriented to person, place, and time. He exhibits normal muscle tone. Skin: Skin is warm and dry. No rash noted. He is not diaphoretic. No erythema. Psychiatric: He has a normal mood and affect. DIAGNOSTICS LAB: Results for orders placed during the hospital encounter of 06/26/12 (from the past 24 hour(s)) C-REACTIVE PROTEIN Component Value Range CRP 8.0 (*) 0.0 - 0.8 (mg/dL) CBC WITH DIFFERENTIAL Component Value Range WBC 7.6 4.0 - 9.8 (K/uL) RBC 4.61 4.50 - 5.40 (M/uL) HEMOGLOBIN 13.0 (*) 13.6 - 16.5 (g/dL) HEMATOCRIT 40.4 40.0 - 48.0 (%) MCV 87.6 82.0 - 99.0 (fL) MCH 28.2 27.2 - 32.6 (pg) MCHC 32.2 31.5 - 35.5 (%) PLATELETS 299 140 - 350 (K/uL) MPV 9.9 9.3 - 12.4 (fL) RDW 14.5 11.5 - 14.5 (%) RDW-STDEV 46.4 37.1 - 48.7 (fL) NEUTROPHILS 70 45 - 70 (%) LYMPHOCYTES 10 (*) 16 - 45 (%) MONOCYTES 18 (*) 3 - 13 (%) EOSINOPHILS 1 0 - 7 (%) BASOPHILS 0 0 - 2 (%) NEUTROPHIL ABSOLUTE 5.31 1.90 - 7.00 (K/uL) LYMPHOCYTE ABSOLUTE 0.74 0.70 - 4.50 (K/uL) MONOCYTE ABSOLUTE 1.39 (*) 0.10 - 1.30 (K/uL) EOSINOPHIL ABSOLUTE 0.09 0.00 - 0.70 (K/uL) BASOPHILS ABSOLUTE 0.03 0.00 - 0.20 (K/uL) COMPREHENSIVE METABOLIC PANEL Component Value Range SODIUM 141 135 - 145 (mmol/L) POTASSIUM 3.6 3.5 - 4.9 (mmol/L) CHLORIDE 104 96 - 108 (mmol/L) CO2 24 22 - 30 (mmol/L) CALCIUM 8.5 (*) 8.6 - 10.2 (mg/dL) BUN 17 6 - 20 (mg/dL) CREATININE 1.04 0.67 - 1.17 (mg/dL) GLUCOSE 113 (*) 65 - 99 (mg/dL) TOTAL PROTEIN 6.7 6.3 - 8.6 (g/dL) ALBUMIN 3.9 3.4 - 4.8 (g/dL) BILIRUBIN TOTAL 0.4 0.2 - 1.0 (mg/dL) ALKALINE PHOSPHATASE 71 40 - 129 (U/L) AST 28 12 - 38 (U/L) ALT 34 0 - 41 (U/L) GFR, >60 >=60 (mL/min/1.7 sq meter) GFR >60 >=60 (mL/min/1.7 sq meter) LACTIC ACID Component Value Range LACTIC ACID 0.9 0.5 - 2.2 (mmol/L) URINALYSIS WITH REFLEX CULTURE Component Value Range URINE CULTURE ORDER Culture ordered URINALYSIS Component Value Range COLOR UA Yellow CLARITY UA Clear Clear SPECIFIC GRAVITY UA 1.023 1.001 - 1.035 PH UA 5.5 5.0 - 8.0 LEUKOCYTE ESTERASE UA Trace (*) Negative NITRITE UA Negative Negative PROTEIN UA Trace (*) Negative GLUCOSE UA Negative Negative KETONES UA Trace (*) Negative UROBILINOGEN UA <1 <=1 (mg/dL) BILIRUBIN UA Negative Negative BLOOD UA Negative Negative WBC UA 8 (*) 0 - 3 (/HPF) RBC UA 1 0 - 3 (/HPF) BACTERIA UA 1+ (*) None Seen (/HPF) EPITHELIAL CELLS, URINE 0-2 RADIOLOGY: CT ABDOMEN PELVIS W CONTRAST Radiologist Impression: IMPRESSION: As was seen on study of 02/22/2012 there is circumferential wall thickening of small bowel proximal to the ileal anal anastomosis suggesting a recurrent inflammatory bowel disease. EKG: PROCEDURES Procedures REEVALUATION MEDICAL DECISION MAKING AND PLAN OF CARE . New Prescriptions for this Encounter Last vitals BP 109/72 Pulse 92 Temp(Src) 98.6 ??F (37 ??C) (Oral) Resp 18 Ht 5' 9 (1.753 m) Wt 77.111 kg BMI 25.10 kg/m2 SpO2 100% MDM Coding Reviewed: vitals, nursing note and previous chart Interpretation: labs, CT scan and SP02 Medications Administered During the ED Stay from 06/25/2012 9436 to 06/26/2012 0402 Date/Time Order Dose Route Action 06/26/2012 0057 sodium chloride 0.9% bolus solution 1,000 mL 1,000 mL IV Given 06/26/2012 0146 sodium chloride 0.9 % infusion 125 mL/hr IV New Bag 06/26/2012 0057 morphine 5 mg/mL injection 5 mg 5 mg IV Given 06/26/2012 0216 ioversol (OPTIRAY 320) 320 mg iodine/mL syringe 125 mL 125 mL IV Given 06/26/2012 0324 morphine 5 mg/mL injection 5 mg 5 mg IV Given CLINICAL IMPRESSION Encounter Diagnoses Code Name Primary? 789.00 Abdominal pain ??? 558.9 Inflammatory bowel disease ??? 556.9 Ulcerative colitis CASE DISCUSSED Dr Brothers PATIENT COUNSELING Diagnostics reviewed and questions answered. Diagnosis, treatment options and plan of care discussed with understanding verbalized. DISPOSITION, EDUCATION AND MEDICATION RECONCILIATION Medications reconciled. See after visit summary for patient education on discharged patients. * Tess Aomr RN - 06/26/2012 12:15 AM CDT Pt to ed stating he has hx of infection in intestine. Pt states he feels like the symptoms he is having today are r/t this. Pt states he is experiencing similar symptoms tonight. Pt states he has abdominal cramps in lower bilat quads and right flank that comes and goes since Monday night. Pt states he has increased BM's. Pt states diarrhea is normal for him. Pt states he has felt warm however has not measured his temperature. Speaks in full, clear sentences. A&OX4. documented in this encounter Miscellaneous Notes * Scanned Form - Stl Scanning, [facility] - 07/01/2012 5:28 PM CDT Electronically signed by Reggie [facility] Stl Resource Room Teacher Incoming at 07/01/2012 5:28 PM CDT * Patient Instructions - Stl Scanning, [facility] - 07/01/2012 5:28 PM CDT Electronically signed by Reggie [facility] Stl Resource Room Teacher Incoming at 07/01/2012 5:28 PM CDT * Care Plan - Mary Conley RN - 06/27/2012 5:20 PM CDT Problem: General Plan of Care (Adult, Obstetrics) Goal: Individualization/Patient-Specific Goal (Adult, Obstetrics) The patient and/or their sales representative facility services will achieve their patient-specific goals related to the plan of care. The patient-specific goals include: Edgardo will have minimal pain by time of discharge. Outcome: Adequate for Discharge Date Met: 06/27/12 Edgardo c/o 4/10 abdominal pain. PO pain medication q4 hours given and pt states relief. Pt toleratinglow residue/fiber diet well, no nausea. Pt up at mick independently to bathroom. Pt's at bedside throughout the day. Edgardo received discharge orders and prescriptions. All questions answered. PIV dc'd. Pt ambulated tovehicle per request with at his side. Pt has all his personal belonging with him. * Care Plan - Lora Funes RN - 06/27/2012 3:07 AM CDT Problem: General Plan of Care (Adult, Obstetrics) Goal: Individualization/Patient-Specific Goal (Adult, Obstetrics) The patient and/or their sales representative facility services will achieve their patient-specific goals related to the plan of care. The patient-specific goals include: Edgardo will have minimal pain by time of discharge. Outcome: Progressing Edgardo c/o cramping abd pain. Relief given with 10mg [place]. Verbalized no relief with bentyl. Tolerating full liquid diet without difficulty. Advanced to low residue for breakfast. Still having loose stool. Cipro given per MD order. Blood cultures positive with gram positive cocci. call center manager Susanney notified. Rested well overnight with at bedside. * Care Plan - Mary Conley RN - 06/26/2012 4:05 PM CDT Problem: General Plan of Care (Adult, Obstetrics) Goal: Individualization/Patient-Specific Goal (Adult, Obstetrics) The patient and/or their sales representative facility services will achieve their patient-specific goals related to the plan of care. The patient-specific goals include: Edgardo will have minimal pain by time of discharge. Outcome: Progressing Edgardo c/o abdominal muscle spasms and 5/10 pain in the lower abdomen. Bentyl given, pt stated reliefof spasms but still pain upon movement. IV morphine given, pt stated relief. Pt up independently tobathroom. Pt tolerating clear liquid diet well, no nausea. PO antibiotics started. Pt resting quietly. documented in this encounter Plan of Treatment Upcoming Encounters Date Type Department Care Team (Late st Contact Info) Description 02/13/2025 10:30 AM CDT Office Visit [facility] [place] [address] [place] [phone] Kitty Dover [facility] [address] [place] [id number] documented as of this encounter Procedures Procedure Name Priority Date/Time Associated Diagnosis Comments IP CONSULT TO INFECTIOUS DISEASES Routine 06/27/2012 4:20 PM CDT CBC WITH DIFFERENTIAL Routine 06/27/2012 5:50 AM CDT C-REACTIVE PROTEIN Add on 06/27/2012 5: 50 AM CDT COMPREHENSIVE METABOLIC PANEL Routine 06/27/2012 5:50 AM CDT C. DIFFICILE DETECTION Stat 2 3:56 AM CDT GIARDIA & CRYPTOSPORIDIUM ANTIGEN Stat 06/26/2012 3:56 AM CDT STOOL CULTURE W/SHIGA TOXIN Stat 06/26/2012 3:[address] ABDOMEN PELVIS W CONTRAST Stat 06/26/2012 2:17 AM CDT URINALYSIS WITH REFLEX CULTURE Stat 06/26/2012 1:39 AM CDT URINALYSIS W/REFLEX MICROSCOPIC Stat 06/26/2012 1:39 AM CDT URINE CULTURE Stat 06/26/2012 1:39 AM CDT LACTIC ACID Stat 06/26/2012 1:00 AM CDT CBC WITH DIFFERENTIAL Stat 06/26/2012 1:00 AM CDT BLOOD CULTURE Stat 06/26/2012 1:00 AM CDT BLOOD CULTURE Stat 06/26/2012 1:00 AM CDT C-REACTIVE PROTEIN Stat 06/26/2012 1: 00 AM CDT COMPREHENSIVE METABOLIC PANEL Stat 06/26/2012 1:00 AM CDT documented in this encounter Results * IP CONSULT TO INFECTIOUS DISEASES (06/27/2012 4:20 PM CDT) Narrative Raleigh Ritter MD - 06/27/2012 4:20 PM CDT Raleigh Ritter MD ? 06/27/2012 ??4:20 PM Infectious Diseases Consult Note Patient Name: Edgardo Elkins Primary Care Doctor: Martin Kelley MD Date of Admission: 06/26/2012 Date of Service: 06/27/2012 Chief Complaint: Abdominal Pain HPI: Edgardo Elkins is a 41 y.o. ??male who was in his USOH until Monday evening when he developed significant RLQ pain. ??Patient has h/o ulcerative colitis and was recently in the hospital for ulcerative colitis flair in February and after IV antibiotics and steroids improved and was sent home. Patient is being seen by Dr. Ryan and had a recent colonoscopy done last week which showed anal stricture, changes in chronicity of disease within the ileal segment and pouch. ??Patient so far has improved with IV antibiotics and feels he is ready to go home. ??Patient did have blood cultures done on admission with 1/2 positive for strep viridans. ??Patient denies any fevers, chills or lightheadedness/dizziness. Patient also denies any N/V, and states his bowels have now normalized. ??Patient did have recent dental work. Past Medical History Diagnosis Date ? ? Ulcerative colitis ? Unspecified adverse effect of anesthesia ?violent after 1st surgery ? ? Ulcerative colitis ? Asthma ?as a child Past Surgical History Procedure Date ? ? Hx colectomy 2001 ? ? Pr colonoscopy,diagnostic 12/08/2009 ??COLONOSCOPY performed by LOUISE SOTELO at [facility] ? ? Pr sigmoidoscopy,diagnostic 02/16/2012 ??SIGMOIDOSCOPY FLEXIBLE performed by Louise Sotelo MD at [facility] ? ? Pr endoscopy of bowel pouch 02/16/2012 ??POUCHOSCOPY performed by Louise Sotelo MD at [facility] ? ? Pr upper gi endoscopy,diagnosis 02/28/2012 ??ESOPHAGOGASTRODUODENOSCOPY performed by Lane Ryan MD at [facility] ? ? Pr small bowel endoscopy,biopsy 02/28/2012 ??BOWEL SMALL BIOPSY ENDOSCOPIC performed by Lane Ryan MD at [facility] ? ? Pr small bowel endoscopy,past 2nd duod 06/12/2012 ??SMALL BOWEL ENTEROSCOPY performed by Lane Ryan MD at [facility] ? ? Pr dilation rectal stricture w anest 06/12/2012 ??RECTAL STRICTURE DILATATION performed by Lane Ryan MD at [facility] Current Medications: Prior to Admission Medications MedicationLast DoseInformantPatient Reported?Taking?predniSONE (DELTASONE) 10 mg Oral tablet06/24/2012 at UnknownYesYesQd IBUPROFEN IB ORAL06/25/2012 at UnknownYesYesPrn pain OTHERPast Week at UnknownNoYesVSL # 3 ?LABEL: 2 BID Medication Allergies:No Known Allergies Family History: Family History Problem Relation Age of Onset ? ? Heart Disease Father ? Hypertension Mother ? Healthy Sister ? Healthy Brother ? Colon Cancer Neg Hx ?? Social History: History Substance Use Topics ? ? Smoking status: Former Smoker -- 0.5 packs/day for 10 years ??Types: Cigarettes ? ? Smokeless tobacco: Not on file Comment: off & on ? ? Alcohol Use: Yes ?? rarely Review of Systems: GEN: ??No weight loss or weight gain, energy level stable Skin: No rashes or eruptions HEENT: ??no sinus complaints Lungs: ??No cough, shortness of breath, or wheezing Cardiac: No CP, SOB,HX of MS, or angina GI: ??No n/v, no abdominal pain or change in bowel habits : ??No dysuria Musculoskeletal: ??No back pain, neck pain or joint pain or swelling NEURO: ??no prior cva or seizure All other ROS reviewed and are negative Physical Exam: BP 117/63 Pulse 78 Temp(Src) 98.3 ??F (36.8 ??C) (Oral) Resp 16 Ht 5' 9 (1.753 m) Wt 180 lb (81.647 kg) BMI 26.58 kg/m2 SpO2 97%, Temp (24hrs), Av.2 ??F (36.8 ??C), Min:97.9 ??F (36.6 ??C), Max:98.4 ??F (36.9 ??C) General: ??Alert, cooperative, no distress, appears stated age. Head: ??Normocephalic, without obvious abnormality, atraumatic. Neck: Supple, symmetrical, trachea midline. No JVD. Back: ?? Symmetric, no curvature. ROM normal. ?? Lungs: ?? Clear to auscultation bilaterally. Heart: ??Regular rate and rhythm, S1, S2 normal, no murmur, click, rub or gallop. Abdomen: ?? Soft, non-tender. Bowel sounds normal. No masses, ??No organomegaly. Extremities: Extremities normal, atraumatic. No cyanosis. No edema. Skin: Skin color, texture, turgor normal. No rashes or lesions. Data Base: Results for orders placed during the hospital encounter of 06/26/12 (from the past 24 hour(s)) CBC WITH DIFFERENTIAL ?Component Value Range WBC 4.6 ??4.0 - 9.8 (K/uL) RBC 4.05 (*) 4.50 - 5.40 (M/uL) HEMOGLOBIN 11.2 (*) 13.6 - 16.5 (g/dL) HEMATOCRIT 35.9 (*) 40.0 - 48.0 (%) MCV 88.6 ??82.0 - 99.0 (fL) MCH 27.7 ??27.2 - 32.6 (pg) MCHC 31.2 (*) 31.5 - 35.5 (%) PLATELETS 266 ??140 - 350 (K/uL) MPV 9.7 ??9.3 - 12.4 (fL) RDW 14.4 ??11.5 - 14.5 (%) RDW-STDEV 46.8 ??37.1 - 48.7 (fL) NEUTROPHILS 57 ??45 - 70 (%) LYMPHOCYTES 19 ??16 - 45 (%) MONOCYTES 21 (*) 3 - 13 (%) EOSINOPHILS 3 ??0 - 7 (%) BASOPHILS 0 ??0 - 2 (%) NEUTROPHIL ABSOLUTE 2.64 ??1.90 - 7.00 (K/uL) LYMPHOCYTE ABSOLUTE 0.86 ??0.70 - 4.50 (K/uL) MONOCYTE ABSOLUTE 0.96 ??0.10 - 1.30 (K/uL) EOSINOPHIL ABSOLUTE 0.13 ??0.00 - 0.70 (K/uL) BASOPHILS ABSOLUTE 0.02 ??0.00 - 0.20 (K/uL) COMPREHENSIVE METABOLIC PANEL ?Component Value Range SODIUM 137 ??135 - 145 (mmol/L) POTASSIUM 3.9 ??3.5 - 4.9 (mmol/L) CHLORIDE 106 ??96 - 108 (mmol/L) CO2 24 ??22 - 30 (mmol/L) CALCIUM 8.4 (*) 8.6 - 10.2 (mg/dL) BUN 8 ??6 - 20 (mg/dL) CREATININE 0.94 ??0.67 - 1.17 (mg/dL) GLUCOSE 98 ??65 - 99 (mg/dL) TOTAL PROTEIN 5.9 (*) 6.3 - 8.6 (g/dL) ALBUMIN 3.1 (*) 3.4 - 4.8 (g/dL) BILIRUBIN TOTAL 0.3 ??0.2 - 1.0 (mg/dL) ALKALINE PHOSPHATASE 51 ??40 - 129 (U/L) AST 17 ??12 - 38 (U/L) ALT 24 ??0 - 41 (U/L) GFR, >60 ??>=60 (mL/min/1.7 sq meter) GFR >60 ??>=60 (mL/min/1.7 sq meter) Assessment: 1. Ileitis 2. H/O Ulcerative Colitis s/p colectomy with ileoanal anastomosis 3. Immunocompromised state due to administration of Remicade 4. Strep Viridans Bacteremia, low grade: ??Possible sources include GI tract and oral cavity. ? Plan: Will treat with Augmentin 875 mg PO BID for 10 days along with Cipro. No objection to discharge D/w Dr Riya Sanots, DO [phone] PGY3 Procedure Note Raleigh Ritter MD - 06/27/2012 2:39 PM CDT Infectious Diseases Consult Note Patient Name: Edgardo Elkins Primary Care Doctor: Matrin Kelley MD Date of Admission: 06/26/2012 Date of Service: 06/27/2012 Chief Complaint: Abdominal Pain HPI: Edgardo Elkins is a 41 y.o. male who was in his USOH until Monday eveningwhen he developed significant RLQ pain. Patient has h/o ulcerativecolitis and was recently in the hospital for ulcerative colitis flair inMay and after IV antibiotics and steroids improved and was sent home.Patient is being seen by Dr. Ryan and had a recent colonoscopy donelast week which showed anal stricture, changes in chronicity of diseasewithin the ileal segment and pouch. Patient so far has improved with IVantibiotics and feels he is ready to go home. Patient did have bloodcultures done on admission with 1/2 positive for strep viridans. Patientdenies any fevers, chills or lightheadedness/dizziness. Patient alsodenies any N/V, and states his bowels have now normalized. Patient didhave recent dental work. Past Medical History Diagnosis Date ? ? Ulcerative colitis ? ? Unspecified adverse effect of anesthesia violent after 1st surgery ? ? Ulcerative colitis ? ? Asthma as a child Past Surgical History Procedure Date ? ? Hx colectomy 2001 ? ? Pr colonoscopy,diagnostic 12/08/2009 COLONOSCOPY performed by LOUISE SOTELO at [facility] ? ? Pr sigmoidoscopy,diagnostic 02/16/2012 SIGMOIDOSCOPY FLEXIBLE performed by Louise Sotelo MD at [facility] ? ? Pr endoscopy of bowel pouch 02/16/2012 POUCHOSCOPY performed by Louise Sotelo MD at [facility] ? ? Pr upper gi endoscopy,diagnosis 02/28/2012 ESOPHAGOGASTRODUODENOSCOPY performed by Lane Ryan MD at [facility] ? ? Pr small bowel endoscopy,biopsy 02/28/2012 BOWEL SMALL BIOPSY ENDOSCOPIC performed by Lane Ryan MD at [facility] ? ? Pr small bowel endoscopy,past 2nd duod 06/12/2012 SMALL BOWEL ENTEROSCOPY performed by Lane Ryan MD at [facility] ? ? Pr dilation rectal stricture w anest 06/12/2012 RECTAL STRICTURE DILATATION performed by Lane Ryan MD at [facility] Current Medications: Prior to Admission Medications Medication Last Dose Informant Patient Reported? Taking? predniSONE (DELTASONE) 10 mg Oral tablet 06/24/2012 at Unknown Yes Yes Qd IBUPROFEN IB ORAL 06/25/2012 at Unknown Yes Yes Prn pain OTHER Past Week at Unknown No Yes VSL # 3 LABEL: 2 BID Medication Allergies:No Known Allergies Family History: Family History Problem Relation Age of Onset ? ? Heart Disease Father ? ? Hypertension Mother ? ? Healthy Sister ? ? Healthy Brother ? ? Colon Cancer Neg Hx Social History: History Substance Use Topics ? ? Smoking status: Former Smoker -- 0.5 packs/day for 10 years Types: Cigarettes ? ? Smokeless tobacco: Not on file Comment: off & on ? ? Alcohol Use: Yes rarely Review of Systems: GEN: No weight loss or weight gain, energy level stable Skin: No rashes or eruptions HEENT: no sinus complaints Lungs: No cough, shortness of breath, or wheezing Cardiac: No CP, SOB,HX of MS, or angina GI: No n/v, no abdominal pain or change in bowel habits : No dysuria Musculoskeletal: No back pain, neck pain or joint pain or swelling NEURO: no prior cva or seizure All other ROS reviewed and are negative Physical Exam: BP 117/63 Pulse 78 Temp(Src) 98.3 ??F (36.8 ??C) (Oral) Resp 16 Ht5' 9 (1.753 m) Wt 180 lb (81.647 kg) BMI 26.58 kg/m2 SpO2 97%, Temp(24hrs), Av.2 ??F (36.8 ??C), Min:97.9 ??F (36.6 ??C), Max:98.4 ??F (36.9??C) General: Alert, cooperative, no distress, appears stated age. Head: Normocephalic, without obvious abnormality, atraumatic. Neck: Supple, symmetrical, trachea midline. No JVD. Back: Symmetric, no curvature. ROM normal. Lungs: Clear to auscultation bilaterally. Heart: Regular rate and rhythm, S1, S2 normal, no murmur, click, rub orgallop. Abdomen: Soft, non-tender. Bowel sounds normal. No masses, Noorganomegaly. Extremities: Extremities normal, atraumatic. No cyanosis. No edema. Skin: Skin color, texture, turgor normal. No rashes or lesions. Data Base: Results for orders placed during the hospital encounter of 06/26/12 (fromthe past 24 hour(s)) CBC WITH DIFFERENTIAL Component Value Range WBC 4.6 4.0 - 9.8 (K/uL) RBC 4.05 (*) 4.50 - 5.40 (M/uL) HEMOGLOBIN 11.2 (*) 13.6 - 16.5 (g/dL) HEMATOCRIT 35.9 (*) 40.0 - 48.0 (%) MCV 88.6 82.0 - 99.0 (fL) MCH 27.7 27.2 - 32.6 (pg) MCHC 31.2 (*) 31.5 - 35.5 (%) PLATELETS 266 140 - 350 (K/uL) MPV 9.7 9.3 - 12.4 (fL) RDW 14.4 11.5 - 14.5 (%) RDW-STDEV 46.8 37.1 - 48.7 (fL) NEUTROPHILS 57 45 - 70 (%) LYMPHOCYTES 19 16 - 45 (%) MONOCYTES 21 (*) 3 - 13 (%) EOSINOPHILS 3 0 - 7 (%) BASOPHILS 0 0 - 2 (%) NEUTROPHIL ABSOLUTE 2.64 1.90 - 7.00 (K/uL) LYMPHOCYTE ABSOLUTE 0.86 0.70 - 4.50 (K/uL) MONOCYTE ABSOLUTE 0.96 0.10 - 1.30 (K/uL) EOSINOPHIL ABSOLUTE 0.13 0.00 - 0.70 (K/uL) BASOPHILS ABSOLUTE 0.02 0.00 - 0.20 (K/uL) COMPREHENSIVE METABOLIC PANEL Component Value Range SODIUM 137 135 - 145 (mmol/L) POTASSIUM 3.9 3.5 - 4.9 (mmol/L) CHLORIDE 106 96 - 108 (mmol/L) CO2 24 22 - 30 (mmol/L) CALCIUM 8.4 (*) 8.6 - 10.2 (mg/dL) BUN 8 6 - 20 (mg/dL) CREATININE 0.94 0.67 - 1.17 (mg/dL) GLUCOSE 98 65 - 99 (mg/dL) TOTAL PROTEIN 5.9 (*) 6.3 - 8.6 (g/dL) ALBUMIN 3.1 (*) 3.4 - 4.8 (g/dL) BILIRUBIN TOTAL 0.3 0.2 - 1.0 (mg/dL) ALKALINE PHOSPHATASE 51 40 - 129 (U/L) AST 17 12 - 38 (U/L) ALT 24 0 - 41 (U/L) GFR, >60 >=60 (mL/min/1.7 sq meter) GFR >60 >=60 (mL/min/1.7 sq meter) Assessment: 1. Ileitis 2. H/O Ulcerative Colitis s/p colectomy with ileoanal anastomosis 3. Immunocompromised state due to administration of Remicade 4. Strep Viridans Bacteremia, low grade: Possible sources include GItract and oral cavity. Plan: Will treat with Augmentin 875 mg PO BID for 10 days along with Cipro. No objection to discharge D/w Dr Riya Santos, DO [phone] PGY3 James Pang MD INPATIENT CONSULT OR DERABLES * (ABNORMAL) C-REACTIVE PROTEIN (06/27/2012 5:50 AM CDT) CRP 11.9(H) 0.0 - 0.8 mg/dL [facility] Blood specimen (specimen) 06/27/2012 5:50 AM CDT 06/27/2012 3:13 PM CDT James Pang MD CHEMISTRY ORDERABLES [facility] BRIGHT# [id number] [address]ée[address] [facility] [address] * (ABNORMAL) COMPREHENSIVE METABOLIC PANEL (06/27/2012 5:50 AM CDT) SODIUM 137 135 - 145 mmol/L [facility] POTASSIUM 3.9 3.5 - 4.9 mmol/L [facility] CHLORIDE 106 96 - 108 mmol/L [facility] CO2 24 22 - 30 mmol/L [facility] CALCIUM 8.4(L) 8.6 - 10.2 mg/dL [facility] BUN 8 6 - 20 mg/dL [facility] CREATININE 0.94 0.67 - 1.17 mg/dL [facility] GLUCOSE 98 65 - 99 mg/dL [facility] TOTAL PROTEIN 5.9(L) 6.3 - 8.6 g/dL [facility] ALBUMIN 3.1(L) 3.4 - 4.8 g/dL [facility] BILIRUBIN TOTAL 0.3 0.2 - 1.0 mg/dL [facility] ALKALINE PHOSPHATASE 51 40 - 129 U/L [facility] AST 17 12 - 38 U/L [facility] ALT 24 0 - 41 U/L [facility] GFR, >60 >=60 mL/min/1. 7 sq meter [facility] GFR >60 >=60 mL/min/1. 7 sq meter [facility] Comment: GFR is calculated using the IDMS-Traceable Modification of Diet in Renal Disease (MDRD) Study formula and is only valid for patients 18 years or older. Further interpretative information is available in the Laboratory Services Policy Manual on the [facility] Intranet at: [email or web address] Blood specimen (specimen) 06/27/2012 5:50 AM CDT 06/27/2012 6:46 AM CDT James Pang MD CHEMISTRY ORDERABLES [facility] [facility] CLIA# [id number] [address] [place] [address] * (ABNORMAL) CBC WITH DIFFERENTIAL (06/27/2012 5:50 AM CDT) WBC 4.6 4.0 - 9.8 K/uL [facility] RBC 4.05(L) 4.50 - 5.40 M/uL [facility] HEMOGLOBIN 11.2(L) 13.6 - 16.5 g/dL [facility] HEMATOCRIT 35.9(L) 40.0 - 48.0 % [facility] MCV 88.6 82.0 - 99.0 fL [facility] MCH 27.7 27.2 - 32.6 pg [facility] MCHC 31.2(L) 31.5 - 35.5 % [facility] PLATELETS 266 140 - 350 K/uL [facility] MPV 9.7 9.3 - 12.4 fL [facility] RDW 14.4 11.5 - 14.5 % [facility] RDW-STDEV 46.8 37.1 - 48.7 fL [facility] NEUTROPHILS 57 45 - 70 % [facility] LYMPHOCYTES 19 16 - 45 % [facility] MONOCYTES 21(H) 3 - 13 % [facility] EOSINOPHILS 3 0 - 7 % [facility] BASOPHILS 0 0 - 2 % [facility] NEUTROPHIL ABSOLUTE 2.64 1.90 - 7.00 K/uL [facility] LYMPHOCYTE ABSOLUTE 0.86 0.70 - 4.50 K/uL [facility] MONOCYTE ABSOLUTE 0.96 0.10 - 1.30 K/uL [facility] EOSINOPHIL ABSOLUTE 0.13 0.00 - 0.70 K/uL [facility] BASOPHILS ABSOLUTE 0.02 0.00 - 0.20 K/uL [facility] Blood specimen (specimen) 06/27/2012 5:50 AM CDT 06/27/2012 6:46 AM CDT James Pang MD HEMATOLOGY ORDERABLE S Performing Organization Address [facility] Co de Phone Number [facility] [id number] [address] [place] [address] * GIARDIA & CRYPTOSPORIDIUM ANTIGEN (06/26/2012 3:56 AM CDT) FINAL MICRO REPORT Negative Giardia antigen by ICT assay. Negative Cryptosporidium antigen by ICT assay. -- Note: ??A negative does not rule out infection. [facility] 06/26/2012 3:56 AM CDT 06/26/2012 4:11 AM CDT Comment:STOOL Narrative [facility] - 06/26/2012 7:28 AM CDT Per protocol approved by the Medical Executive Committee, the Giardia and Cryptosporidium Antigen test has been substituted when an Ova and Parasite Examination, Giardia Antigen or Cryptosporidium Examination is requested. ?? Contact Microbiology for approval if a comprehensive Ova and Parasite Examination is indicated. ??The preserved specimen will be held for 7 days. Johny Muniz DO MICROBIOLOGY - GENER AL ORDERABLES Performing Organization Address [facility] Co de Phone Number [facility]# [id number] [address] [facility] [place] [address] * STOOL CULTURE (06/26/2012 3:56 AM CDT) FINAL MICRO REPORT No Salmonella isolated. No Shigella isolated. No Escherichia coli serogroup O157:H7 isolated. No Campylobacter isolated. [facility] E. COLI SHIGA TOXIN REPORT Negative E. coli Shiga toxin 1 by ICT assay. Negative E. coli Shiga toxin 2 by ICT assay. --Note: ??A negative does not rule out infection with enterohemorrhagic E. coli. [facility] Stool specimen (specimen) 06/26/2012 3:56 AM CDT 06/26/2012 4:11 AM CDT Comment:STOOL Johny Muniz DO MICROBIOLOGY - GENER AL ORDERABLES Performing Organization Address [facility] Co de Phone Number [facility] CLIA# [id number] [address] [place], [place] [address] * CLOSTRIDIUM DIFFICILE TOXIN (06/26/2012 3:56 AM CDT) C DIFF TOXIN PCR RESULT Negative Negative [facility] C DIFF TOXIN PCR SOURCE Stool [facility] Stool specimen (specimen) 06/26/2012 3:56 AM CDT 06/26/2012 4:09 AM CDT Comment:STOOL Johny Muniz DO MICROBIOLOGY - GENER AL ORDERABLES Performing Organization Address [facility] Co de Phone Number [facility] [facility] [id number] [address] [place], [place] [address] * CT ABDOMEN PELVIS W CONTRAST (06/26/2012 2:17 AM CDT) Anatomical Region Laterality Modality Abdomen Computed Tomogra phy 06/26/2012 2:15 AM CDT Impressions 06/26/2012 3:07 AM CDT IMPRESSION: As was seen on study of 02/22/2012 there is circumferential wall thickening of small bowel proximal to the ileal anal anastomosis suggesting a recurrent inflammatory bowel disease. Narrative 06/26/2012 3:07 AM CDT Exam: ??CT ABDOMEN PELVIS W CONTRAST . ??Jun 26, 2012 02:18:21 AM History: . ??Pain . Scans were performed during the intravenous injection of 125 cc Optiray-320. ??The liver is free of distinct solid masses or evidence of hepatocellular disease. No abnormalities of bile ducts are seen. The gallbladder is normal. The spleen is unremarkable. No pancreatic masses cyst or inflammation are identified. No renal cyst are seen. No solid renal lesions are seen. No renal stones are seen. ??No renal obstruction is seen. The ureters descend without evidence of obstruction or displacement. The urinary bladder is grossly normal. . No pelvic masses, cysts or abnormal fluid collections are seen. No periaortic or pelvic adenopathy is seen.. There is again seen to be circumferential wall thickening of small bowel proximal to the ileoanal anastomosis this was seen on most recent previous exam of 02/22/2012. No evidence of perforation is seen.. No new abnormalities of bowel loop and mesentery are identified. Procedure Note Tavon Trevino MD - 06/26/2012 Exam: CT ABDOMEN PELVIS W CONTRAST . Jun 26, 2012 02:18:21 AM History: . Pain . Scans were performed during the intravenous injection of 125 cc Optiray-320. The liver is free of distinct solid masses or evidence of hepatocellular disease. No abnormalities of bile ducts are seen. The gallbladder is normal. The spleen is unremarkable. No pancreatic masses cyst or inflammation are identified. No renal cyst are seen. No solid renal lesions are seen. No renal stones are seen. No renal obstruction is seen. The ureters descend without evidence of obstruction or displacement. The urinary bladder is grossly normal. . No pelvic masses, cysts or abnormal fluid collections are seen. No periaortic or pelvic adenopathy is seen.. There is again seen to be circumferential wall thickening of small bowel proximal to the ileoanal anastomosis this was seen on most recent previous exam of 02/22/2012. No evidence of perforation is seen.. No new abnormalities of bowel loop and mesentery are identified. IMPRESSION IMPRESSION: As was seen on study of 02/22/2012 there is circumferential wall thickening of small bowel proximal to the ileal anal anastomosis suggesting a recurrent inflammatory bowel disease. Johny Muniz DO CT ORDERABLES * URINE CULTURE (06/26/2012 1:39 AM CDT) FINAL MICRO REPORT No growth 24 hours [facility] 06/26/2012 1:39 AM CDT 06/26/2012 2:51 AM CDT Comment:URINE VOIDED Johny Muniz DO MICROBIOLOGY - GENER AL ORDERABLES Performing Organization Address City/[facility]/ZIP Co de Phone Number [facility] CLIA# [id number] [address] [place] [address] * (ABNORMAL) URINALYSIS (06/26/2012 1:39 AM CDT) COLOR UA Yellow [facility] CLARITY UA Clear Clear [facility] SPECIFIC GRAVITY UA 1.023 1.001 - 1.035 [facility] PH UA 5.5 5.0 - 8.0 [facility] LEUKOCYTE ESTERASE UA Trace(A) Negative [facility] NITRITE UA Negative Negative [facility] PROTEIN UA Trace(A) Negative [facility] GLUCOSE UA Negative Negative [facility] KETONES UA Trace(A) Negative [facility] UROBILINOGEN UA <1 <=1 mg/dL [facility] BILIRUBIN UA Negative Negative [facility] BLOOD UA Negative Negative [facility] WBC UA 8(H) 0 - 3 /HPF [facility] RBC UA 1 0 - 3 /HPF [facility] BACTERIA UA 1+(A) None Seen /HPF [facility] EPITHELIAL CELLS, URINE 0-2 /HPF [facility] 06/26/2012 1:39 AM CDT 06/26/2012 1:46 AM CDT Comment:URINE VOIDED Johny Muniz DO URINE ORDERABLES Performing Organization Address City/[facility]/ZIP Co de Phone Number [facility] CLIA# [id number] [address] [place] [address] * URINALYSIS WITH REFLEX CULTURE (06/26/2012 1:39 AM CDT) Pathologist [facility] URINE CULTURE ORDER Culture ordered [facility] Comment: Criteria for a reflex culture include one or more of the following: ??Abnormal nitrite, leukocyte esterase, WBCs or RBCs. ??Lack of qualifying criteria does not exclude the possiblity of a urinary tract infection. ??Dilute urine, drug interference, etc. may decrease the sensitivity of the criteria analytes. Urine, clean catch 06/26/2012 1:39 AM CDT 06/26/2012 1:46 AM CDT Comment:URINE VOIDED Johny Munzi DO URINE ORDERABLES Performing Organization Address [facility] Co de Phone Number [facility] CLIA# [id number] [address] [facility] [place] [address] * LACTIC ACID (06/26/2012 1:00 AM CDT) Pathologist [facility] LACTIC ACID 0.9 0.5 - 2.2 mmol/L [facility] Blood specimen (specimen) 06/26/2012 1:00 AM CDT 06/26/2012 1:08 AM CDT Johny Muniz DO CHEMISTRY ORDERABLES Performing Organization Address [facility] de Phone Number [facility] CLIA# [id number] [address] [place] [address] * BLOOD CULTURE (06/26/2012 1:00 AM CDT) Pathologist [facility] FINAL MICRO REPORT No growth 5 days [facility] Blood specimen (specimen) 06/26/2012 1:00 AM CDT 06/26/2012 1:14 AM CDT Comment:BLOOD/ RAC Narrative [facility] - 07/01/2012 11:41 AM CDT X 2 15 MIN APART, 2 DIFFERENT SITES Johny Muniz DO MICROBIOLOGY - GENER AL ORDERABLES Performing Organization Address [facility]/ZIP Co de Phone Number [facility] CLIA# [id number] [address] [place] [address] * (ABNORMAL) BLOOD CULTURE (06/26/2012 1:00 AM CDT) FINAL MICRO REPORT Streptococcus viridans isolated. (1 bottle out of 2) Susceptibility on request only.(A) [facility] GRAM STAIN Gram Positive Cocci in chains seen (1 bottle out of 2) - Phoned report (with read back verified) to Mallory Funes ([facility]) ??06/26/12 20:14:29.(A) [facility] [employer] [facility] Blood specimen (specimen) 06/26/2012 1:00 AM CDT 06/26/2012 1:13 AM CDT Comment:BLOOD/ RAC Narrative [facility] [employer] [facility] - 07/01/2012 11:46 AM CDT X 2 15 MIN APART, 2 DIFFERENT SITES Johny Muniz DO MICROBIOLOGY - GENER AL ORDERABLES [facility] [employer] [facility]# [id number] [address] [place] [address] * (ABNORMAL) COMPREHENSIVE METABOLIC PANEL (06/26/2012 1:00 AM CDT) SODIUM 141 135 - 145 mmol/L [facility] POTASSIUM 3.6 3.5 - 4.9 mmol/L [facility] CHLORIDE 104 96 - 108 mmol/L [facility] - . [facility] CO2 24 22 - 30 mmol/L [facility] - . [facility] CALCIUM 8.5(L) 8.6 - 10.2 mg/dL [facility] - . [facility] BUN 17 6 - 20 mg/dL [facility] CREATININE 1.04 0.67 - 1.17 mg/dL [facility] GLUCOSE 113(H) 65 - 99 mg/dL [facility] - . [facility] TOTAL PROTEIN 6.7 6.3 - 8.6 g/dL [facility] ALBUMIN 3.9 3.4 - 4.8 g/dL [facility] BILIRUBIN TOTAL 0.4 0.2 - 1.0 mg/dL [facility] ALKALINE PHOSPHATASE 71 40 - 129 U/L [facility] AST 28 12 - 38 U/L [facility] ALT 34 0 - 41 U/L [facility] GFR, >60 >=60 mL/min/1. 7 sq meter [facility] SERVICES [facility] GFR >60 >=60 mL/min/1. 7 sq meter [facility] SERVICES [facility] Comment: GFR is calculated using the IDMS-Traceable Modification of Diet in Renal Disease (MDRD) Study formula and is only valid for patients 18 years or older. Further interpretative information is available in the Laboratory Services Policy Manual on the [facility] Intranet at: [email or web address]/ Blood specimen (specimen) 06/26/2012 1:00 AM CDT 06/26/2012 1:08 AM CDT Johny Muniz DO CHEMISTRY ORDERABLES [id number] [address] [place] [address] * (ABNORMAL) CBC WITH DIFFERENTIAL (06/26/2012 1:00 AM CDT) WBC 7.6 4.0 - 9.8 K/uL [facility] RBC 4.61 4.50 - 5.40 M/uL [facility] HEMOGLOBIN 13.0(L) 13.6 - 16.5 g/dL [facility] HEMATOCRIT 40.4 40.0 - 48.0 % [facility] MCV 87.6 82.0 - 99.0 fL [facility] MCH 28.2 27.2 - 32.6 pg [facility] MCHC 32.2 31.5 - 35.5 % [facility] PLATELETS 299 140 - 350 K/uL [facility] MPV 9.9 9.3 - 12.4 DE [facility] RDW 14.5 11.5 - 14.5 % [facility] RDW-STDEV 46.4 37.1 - 48.7 [facility] NEUTROPHILS 70 45 - 70 % [facility] LYMPHOCYTES 10(L) 16 - 45 % [facility] MONOCYTES 18(H) 3 - 13 % [facility] EOSINOPHILS 1 0 - 7 % [facility] BASOPHILS 0 0 - 2 % [facility] NEUTROPHIL ABSOLUTE 5.31 1.90 - 7.00 K/uL [facility] LYMPHOCYTE ABSOLUTE 0.74 0.70 - 4.50 K/uL [facility] MONOCYTE ABSOLUTE 1.39(H) 0.10 - 1.30 K/uL [facility] EOSINOPHIL ABSOLUTE 0.09 0.00 - 0.70 K/uL [facility] - [facility] BASOPHILS ABSOLUTE 0.03 0.00 - 0.20 K/uL [facility] Blood specimen (specimen) 06/26/2012 1:00 AM CDT 06/26/2012 1:08 AM CDT Johny Muniz DO HEMATOLOGY ORDERABLE S [facility] SERVICES [facility]# [id number] [address] [facility] [place] [place] [address] * (ABNORMAL) C-REACTIVE PROTEIN (06/26/2012 1:00 AM CDT) CRP 8.0(H) 0.0 - 0.8 mg/dL [facility] SERVICES [facility] Blood specimen (specimen) 06/26/2012 1:00 AM CDT 06/26/2012 1:08 AM CDT Johny Muniz DO CHEMISTRY ORDERABLES [facility]# [id number] [address] [place] [address] documented in this encounter Visit Diagnoses Diagnosis Abdominal pain Abdominal pain, unspecified site Inflammatory bowel disease Other and unspecified noninfectious gastroenteritis and colitis Ulcerative colitis Ulcerative colitis, unspecified Abdominal pain Abdominal pain, unspecified site Inflammatory bowel disease Other and unspecified noninfectious gastroenteritis and colitis documented in this encounter Administered Medications Inactive Administered Medications - up to 3 most recent administrations Medication Order MAR Action Action Date Dose Rate Site ciprofloxacin (CIPRO) tablet 500 mg 500 mg, Oral, EVERY 12 HOURS (BlD), First dose on Mon06/26/12 at 1230, Until Discontinued, Routine Given 06/27/2012 8:00 AM CDT 500 mg Given 06/26/2012 7:43 PM CDT 500 mg Given 06/26/2012 2:26 PM CDT 500 mg dicyclomine (BENTYL) capsule 10 mg 10 mg, Oral, THREE TIMES DAILY PRN, Starting on Mon06/26/12 at 1216, Until Mon06/27/12 at 1923, Pain, Routine Given 06/26/2012 2:26 PM CDT 10 mg HYDROcodone-acetaminophen (NORCO) 10-325 mg per tablet 1 Tab 1 Tablet, Oral, EVERY 4 HOURS PRN, Starting on Mon06/26/12 at 1925, Until Mon06/27/12 at 1923, Pain, Severe, Routine Given 06/27/2012 4:35 PM CDT 1 Tablet Given 06/27/2012 12:13 PM CDT 1 Tablet Given 06/27/2012 8:00 AM CDT 1 Tablet ioversol (OPTIRAY 320) 320 mg iodine/mL syringe 125 mL 125 mL, IV, INTRA-PROCEDURE ONCE, 1 dose, Starting on Mon06/26/12 at 0216, Until Mon06/26/12 at 0216 Given 06/26/2012 2:16 AM CDT 125 mL morphine 5 mg/mL injection 5 mg 5 mg, IV, ONE TIME ONLY, 1 dose, On Mon06/26/12 at 0045, Routine Given 06/26/2012 12:57 AM CDT 5 mg morphine 5 mg/mL injection 5 mg 5 mg, IV, ONE TIME ONLY, 1 dose, On Mon06/26/12 at 0330, Routine Given 06/26/2012 3:24 AM CDT 5 mg morphine injection 5 mg 5 mg, IV, EVERY 3 HOURS PRN, Starting on Mon06/26/12 at 0507, Until Mon06/26/12 at 1925, Pain, Routine Given 06/26/2012 3:50 PM CDT 5 mg Given 06/26/2012 6:39 AM CDT 5 mg sodium chloride 0.9 % infusion IV, at 125 mL/hr, CONTINUOUS, Starting on Mon06/26/12 at 0045, Until Mon06/27/12 at 1923, Routine Bag Switched 06/27/2012 1:18 PM CDT 125 mL/hr Rate Verify 06/27/2012 6:00 AM CDT 125 mL/hr Rate Verify 06/26/2012 10:00 PM CDT 125 mL/hr sodium chloride 0.9% bolus solution 1,000 mL 1,000 mL, IV, ONE TIME ONLY, 1 dose, On Mon06/26/12 at 0045, at 2,000 mL/hr, Administer over 30 Minutes, Routine Given 06/26/2012 12:57 AM CDT 1,000 mL 2000 mL/hr documented in this encounter Active and Recently Administered Medications Times are shown in CDT. Scheduled Medication Order 06/25/2012 06/26/2012 06/27/2012 ciprofloxacin (CIPRO) tablet 500 mg 500 mg, Oral, EVERY 12 HOURS (BlD), First dose on Mon06/26/12 at 1230, Until Discontinued, Routine 1426 (Given - Provider: Mary Conley RN)1943 (Given - Provider: Lora Funes RN)2100 (Canceled Entry - Provider: Lora Funes RN) 0800 (Given - Provider: Mary Conley RN) ioversol (OPTIRAY 320) 320 mg iodine/mL syringe 125 mL (COMPLETED) 125 mL, IV, INTRA-PROCEDURE ONCE, 1 dose, Starting on Mon06/26/12 at 0216, Until Mon06/26/12 at 0216 0216 (Given - Provider: Steph Kat, RT) morphine 5 mg/mL injection 5 mg (COMPLETED) 5 mg, IV, ONE TIME ONLY, 1 dose, On Mon06/26/12 at 0045, Routine 0057 (Given - Provider: Tess Amor RN) morphine 5 mg/mL injection 5 mg (COMPLETED) 5 mg, IV, ONE TIME ONLY, 1 dose, On Mon06/26/12 at 0330, Routine 0324 (Given - Provider: Tess Amor, JIE) sodium chloride 0.9% bolus solution 1,000 mL (COMPLETED) 1,000 mL, IV, ONE TIME ONLY, 1 dose, On Mon06/26/12 at 0045, at 2,000 mL/hr, Administer over 30 Minutes, Routine 0057 (Given - Provider: Tess Amor, JIE) Continuous Medication Order 06/25/2012 06/26/2012 06/27/2012 sodium chloride 0.9 % infusion (CANCELED) IV, at 125 mL/hr, CONTINUOUS, Starting on Mon06/26/12 at 0045, Until Mon06/27/12 at 1923, Routine 0146 (New Bag - Provider: Tess Amor RN)0639 (New Bag - Provider: Fabiola Thomas RN)2200 (Rate Verify - Provider: Lora Funes, JIE) 0600 (Rate Verify - Provider: Lora Funes, JIE)1318 (Bag Switched - Provider: Mary Conley, JIE)1639 (Stopped - Provider: Mary Conley, JIE) PRN Medication Order 06/25/2012 06/26/2012 06/27/2012 dicyclomine (BENTYL) capsule 10 mg (CANCELED) 10 mg, Oral, THREE TIMES DAILY PRN, Starting on Mon06/26/12 at 1216, Until Mon06/27/12 at 1923, Pain, Routine 1426 (Given - Provider: Mary Conley, JIE) HYDROcodone-acetaminophen (NORCO) 10-325 mg per tablet 1 Tab (CANCELED) 1 Tablet, Oral, EVERY 4 HOURS PRN, Starting on Mon06/26/12 at 1925, Until Mon06/27/12 at 1923, Pain, Severe, Routine 1942 (Given - Provider: Lora Funes RN)1945 (Canceled Entry - Provider: Lora Funes RN) 0019 (Given - Provider: Lora Funes RN)0355 (Given - Provider: Lora Funes RN)0800 (Given - Provider: Mary Conley RN)1213 (Given - Provider: Mary Conley RN)1635 (Given - Provider: Mary Conley RN) HYDROcodone-acetaminophen (NORCO) 5-325 mg per tablet 1 Tab 1 Tablet, Oral, EVERY 4 HOURS PRN, Starting on Mon06/26/12 at 1925, Until Mon06/27/12 at 1923, Pain, Moderate, Routine morphine injection 5 mg (CANCELED) 5 mg, IV, EVERY 3 HOURS PRN, Starting on Mon06/26/12 at 0507, Until Mon06/26/12 at 1925, Pain, Routine 0639 (Given - Provider: Fabiola Thomas RN)1550 (Given - Provider: Mary Conley RN) documented in this encounter Care Teams 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
--- OUTSIDE RECORDS SUMMARY | 2024-10-24 05:34 | XMS_ITS | Encounter Summary ---
Author Organization [facility] Address [address] [place] [address] Care Team Providers Care [employer] Name Role Phone Martin Kelley MD Primary Care Provider [phone] Encounter Details Date Type Department Care Team (Late st Contact Info) Description 11/08/2012 Orders Only [facility] [id number] [place] [address] Lane Ryan MD NO ADDRESS [...] Description 02/13/2025 10:30 AM CDT Office Visit [facility] [place] [address] [place] [address] Kitty Dover ANP [address] [place] [address] documented as of this encounter Procedures Procedure Name Priority Date/Time Associated Diagnosis Comments IRRITABLE BOWEL SYNDROME PANEL Routine 02/29/2012 documented in this encounter Results * IRRITABLE BOWEL SYNDROME PANEL (02/29/2012) Blood specimen (specimen) Lane Ryan MD CHEMISTRY ORDERABLES Performing Organization Address City/[facility] Co de Phone Number [facility]# [id number] [address] [place] [address] documented in this encounter Visit Diagnoses Not on filedocumented in this encounter Care Teams [employer] English [employer] Relationship Specialty Start Date End Date Martin Kelley MD PCP - General Internal Medicine 02/16/12 08/14/17 documented as of this encounter
--- OUTSIDE RECORDS SUMMARY | 2024-10-24 05:34 | XMS_ITS | Encounter Summary ---
Author Organization [facility] Address [address] [place] [address] Care Team Providers Care Vrt Mechanic Name Role Phone Martin Kelley MD Primary Care Provider [phone] Reason for Visit * Auth/Cert - Closed Specialty Diagnoses / Procedures Referred By Lambert t Referred To Contact Gastroenterology Diagnoses UC (ulcerative colitis) UC (ulcerative colitis) [556.9] Procedures COLONOSCOPY [facility] [address] [place] [address] Referral ID Status Reason Start Date Expiration Date Visits Re quested Visits Authorized [id number] Closed 1 1 Encounter Details Date Type Department Care Team (Latest Contact Info) Description 06/09/2014 1:41 PM CDT - 06/09/2014 4:57 PM CDT Hospital Encounter [facility] [address] [place] [address] Katie Steele MD NO ADDRESS ON FILE UC (ulcerative [...] Sign Reading Time Taken Comments Blood Pressure 101/66 06/09/2014 4:16 PM CDT Pulse 84 06/09/2014 2:35 PM CDT Temperature 36.6 ??C (97.8 ??F) 06/09/2014 3:53 PM CD T Respiratory Rate 18 06/09/2014 4:16 PM CDT Oxygen Saturation 97% 06/09/2014 4:16 PM CDT Inhaled Oxygen Concentration - - Weight 76.2 kg (168 lb) 06/09/2014 2:24 PM CDT Height 175.3 cm (5' 9 ) 06/09/2014 2:24 PM CDT Body Mass Index 24.81 06/09/2014 2:24 PM CDT documented in this encounter Discharge Instructions * Discharge Instructions* Rachell Hinojosa RN - 06/09/2014 3:51 PM CDT If you should experience: Severe [...] 07/07/2014 metroNIDAZOLE (FLAGYL) 500 mg Oral tabletIndications:Leila remington Take 1 Tab by mouth 3 times [...] H&P Notes * Katie Steele MD - 06/09/2014 2:45 PM CDT PRE PROCEDURE EVALUATION - Colonoscopy DATE: 06/09/2014 HPI: This is a 43 y.o. male patient scheduled for Colonoscopy for inflammatory bowel disease Patient Active Problem List Diagnosis Date Noted [...] of anesthesia violent after 1st surgery ??? Asthma as a child ??? 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 Hx colectomy 2002 ??? Pr colonoscopy,diagnostic 12/08/2009 COLONOSCOPY performed by LOUISE SOTELO at [facility] ??? Pr sigmoidoscopy,diagnostic 02/16/2012 SIGMOIDOSCOPY FLEXIBLE performed by Louise Sotelo MD at [facility] ??? Pr endoscopy of bowel pouch 02/16/2012 POUCHOSCOPY performed by Louise Sotelo MD at [facility] ??? Pr esophagogastroduodenoscopy transoral diagnostic 02/28/2012 ESOPHAGOGASTRODUODENOSCOPY performed by Katie Steele MD at [facility] ??? Pr small bowel endoscopy,biopsy 02/28/2012 BOWEL SMALL BIOPSY ENDOSCOPIC performed by Katie Steele MD at [facility] ??? Pr small bowel endoscopy,past 2nd duod 06/12/2012 SMALL BOWEL ENTEROSCOPY performed by Katie Steele MD at [facility] ??? Pr dilation rectal stricture w anest 06/12/2012 RECTAL STRICTURE DILATATION performed by Katie Steele MD at [facility] Prescriptions prior to admission Medication Sig Dispense Refill ??? adalimumab (HUMIRA) 40 mg/0.8 mL subCUT Kit Inject 0.8 mL by subcutaneous injection see administration instructions. Take 4 inj day 1 and 2 injection day 14 then 1 inj every 2 weeks 8 Each 6 ??? metroNIDAZOLE (FLAGYL) 500 mg Oral tablet Take 1 Tab by mouth 3 times daily. 60 Tab 3 ??? ondansetron (ZOFRAN ODT) [address] 1 Tab under tongue every 6 hours as needed for Nausea. 20 Tab none ??? ciprofloxacin (CIPRO) 500 mg Oral tablet Take 1 Tab by mouth 2 times daily. 60 Tab 0 ??? HYDROcodone-acetaminophen (NORCO) 5-325 mg Oral tablet Take 1 Tab by mouth every 4 hours as needed for Pain, Moderate. 40 Tab 0 ??? ciprofloxacin (CIPRO) 500 mg Oral tablet Take 1 Tab by mouth every 12 hours. 20 Tab 0 ??? amoxicillin-clavulanate (AUGMENTIN) 875-125 mg Oral tablet Take 1 Tab by mouth every 12 hours. 20 Tab 0 ??? predniSONE (DELTASONE) 10 mg Oral tablet Qd ??? OTHER VSL # 3 LABEL: 2 BID 60 Each 3 Allergies Allergen Reactions ??? Remicade (Infliximab) Rash History Substance Use Topics ??? Smoking status: Former Smoker -- 0.50 packs/day for 10 years Types: Cigarettes Quit date: 06/09/2011 ??? Smokeless tobacco: Not on file Comment: off & on ??? Alcohol Use: Yes Comment: rarely Family History Problem Relation [...] documented in this encounter Procedure Notes * Katie Steele MD - 06/10/2014 1:49 AM CDTAssociated Order(s): GI REPORT [place], [place] [address] Gastroenterology CSN: [id number] DATE OF SERVICE: ILEOSCOPY REPORT DATE OF SERVICE 06/09/2014 Mukul is a 43-year-old male with a longstanding history of inflammatory bowel disease, who has had aprevious proctocolectomy. The patient had been hospitalized with severe enteritis previously. He had C. diff at that time, as well as an extremely inflamed small intestine. He was ultimately treated.The last time I saw him was on November 08, 2012, at that time he was improved and doing well on Humira, having 2-3 bowel motions a day. We had done an endoscopy in October 2011, that showed a distal rectal stricture and diffusely inflamed intestine. The patient had been thought to have ulcerative colitis, but the inflammation of the small intestine made me suspicious of Crohn disease. He now presents for followup. He states he feels like a stricture has become much more severe and he has trouble passing things, and wants me to dilate again. PROCEDURE With the patient on left side, sedation was provided by Anesthesia. The perianal area was inspectedand shows a fistulous opening to the right of the anus. Rectal examination shows a tight distal rectal stricture with the lumen limited to approximately 5 mm and initially I could not get my index finger through. A gastroscope was introduced and advanced ultimately to 70 cm. The patient has diffuseinflammation throughout the visualized intestine. The pouch shows moderate pouchitis with scatteredulcerations. Multiple linear ulcerations were noted in the small intestine. The mucosa was diffusely erythematous, inflamed, and friable. Biopsies of small intestine, the pouch, and the stricture are obtained. We then placed a balloon into the rectum, pulled back to straddle the stricture and successfully dilated from a 12 ultimately to an 18. After this, I could get my index finger through the stricture. Overall, the patient tolerated the procedure well. DIAGNOSES 1. Diffuse inflammation of the pouch and distal small intestine, suspicious for Crohn's. 2. Anal stricture. 3. External fistula. RECOMMENDATION I did discuss in detail with the patient. I am getting a stool for C. diff. We will get test for Humira blood levels and antibodies. May increase the Humira to once weekly. JSF:MEDQ DID: [id number] Dictated by: Katie Steele MD * Katie Steele MD - 06/09/2014 3:53 PM CDTAssociated Order(s): GI REPORT [facility] Endoscopy Patient Name: Mukul Huber Procedure Date No Time: 06/09/2014 Date of : 1970 Admit Type: Outpatient Attending MD: Katie Steele MD Procedure: Images Only-Procedure Report in [facility] Providers: Katie Steele MD Referring MD: Martin Hopper MD Submitted Katie Steele MD Number of Addenda: 0 [address]; [place] [address] documented in this encounter OR Notes * Anesthesia Handoff - Libby Espinoza AA-C - 06/09/2014 3:56 PM CDT Post-Anesthetic transfer of care report elements to appropriate post-anesthesia recovery environment completed in accordance with procedure. Vital Signs: BP: 93/38 mmHg (06/09/2014 3:53 PM) Pulse: 84 (06/09/2014 2:35 PM) Heart Rate (Monitored): 82 bpm (06/09/2014 3:53 PM) Temp: 36.6 ??C (06/09/2014 3:53 PM) Resp: 18 (06/09/2014 3:53 PM) SpO2: 93 % (06/09/2014 3:53 PM) 3:56 PM GEOFFREY Harris * Zarina-OP - Karla Chin RN - 06/06/2014 5:12 PM CDT [facility] Pre-Anesthesia Protocol for GI Lab Procedures Screening ?? Urine bHCG (serum, if necessary) Female of menses, or age > 12 yrs Testing Fingerstick glucose: ?? Patients with diabetes ?? Patients receiving oral hypoglycemic agents or insulin Monitoring ?? Obtain and record vital records ?? Continuous vital signs (non-invasive blood pressure, pulse oximetry and EKG) for all patients, and all patients currently taking beta-blockers Intravenous Line ?? Place #20 gauge IV in non-dominant, non-operative (or not otherwise excluded) upper extremity Local Anesthetic for use to initiate IV line ?? Lidocaine 2% 0.3mL intradermal ONE TIME to numb area of IV catheter insertion PRN IV Fluid Adult patients (age 18 and older) ?? Lactated ringer's solution to infuse at 125mL/hr; may discontinue upon discharge from procedure area ?? If patient is found to have a serum creatinine > 2, or history of renal failure, RN may change fluid to NS at 10mL/hr documented in this encounter Plan of Treatment Upcoming Encounters Date Type Department Care Team (Late st Contact Info) Description 02/13/2025 10:30 AM CDT Office Visit [facility] IBD and [facility]astro[facility] [place] [address] [place] [address] Kitty Dover ANP [address] [place] [address] documented as of this encounter Procedures Procedure Name Priority Date/Time Associated Diagnosis Comments GI REPORT 06/11/2014 7:06 PM CDT PATHOLOGY Routine 06/09/2014 5:00 PM CDT C. DIFFICILE DETECTION Routine 06/09/2014 3:54 PM CDT COLONOSCOPY 06/09/2014 3:11 PM CDT UC (ulcerative colitis) Case Notes NPR documented in this encounter Results * GI REPORT (06/11/2014 7:06 PM CDT) Narrative Transcriptions Katie Steele MD - 06/09/2014 3:53 PM CDT [facility] Endoscopy Patient Name: Mukul Huber Procedure Date No Time: 06/09/2014 Date of : 1970 Admit Type: Outpatient Attending MD: Katie Steele MD Procedure: Images Only-Procedure Report in [facility] Providers: Katie Steele MD Referring MD: Martin Hopper MD Submitted Katie Steele MD Number of Addenda: [address]; [place] [address] Katie Steele MD - 06/10/2014 1:49 AM CDT [place], [place] [address] Gastroenterology CSN: [id number] DATE OF SERVICE: ILEOSCOPY REPORT DATE OF SERVICE 06/09/2014 Mukul is a 43-year-old male with a longstanding history of inflammatorybowel disease, who has had a previous proctocolectomy. The patient hadbeen hospitalized with severe enteritis previously. He had C. diff atthat time, as well as an extremely inflamed small intestine. He wasultimately treated. The last time I saw him was on November 08, 2012, atthat time he was improved and doing well on Humira, having 2-3 bowelmotions a day. We had done an endoscopy in October 2011, that showed adistal rectal stricture and diffusely inflamed intestine. The patient hadbeen thought to have ulcerative colitis, but the inflammation of the smallintestine made me suspicious of Crohn disease. He now presents forfollowup. He states he feels like a stricture has become much more severeand he has trouble passing things, and wants me to dilate again. PROCEDURE With the patient on left side, sedation was provided by Anesthesia. Theperianal area was inspected and shows a fistulous opening to the right ofthe anus. Rectal examination shows a tight distal rectal stricture withthe lumen limited to approximately 5 mm and initially I could not get myindex finger through. A gastroscope was introduced and advancedultimately to 70 cm. The patient has diffuse inflammation throughout thevisualized intestine. The pouch shows moderate pouchitis with scatteredulcerations. Multiple linear ulcerations were noted in the smallintestine. The mucosa was diffusely erythematous, inflamed, and friable.Biopsies of small intestine, the pouch, and the stricture are obtained.We then placed a balloon into the rectum, pulled back to straddle thestricture and successfully dilated from a 12 ultimately to an 18. Afterthis, I could get my index finger through the stricture. Overall, thepatient tolerated the procedure well. DIAGNOSES 1. Diffuse inflammation of the pouch and distal small intestine,suspicious for Crohn's. 2. Anal stricture. 3. External fistula. RECOMMENDATION I did discuss in detail with the patient. I am getting a stool for C.diff. We will get test for Humira blood levels and antibodies. May increasethe Humira to once weekly. JSF:MEDQ DID:[id number] Dictated by: Katie Steele MD Katie Steele MD GI PROCEDURE [facility] * PATHOLOGY (06/09/2014 5:00 PM CDT) SURGICAL PATHOLOGY ?[facility] ?[address] ? [place], [place] ??[id number] ? Patient: ??MUKUL HUBER S ? : ??1970 ? Procedure Date: ??06/09/2014 ? Accession Date: ??06/10/2014 ? Case No: ??[id number] ? Ordering Dr: ??KATIE STEELE ? Case type SW is performed by [address], ? [place], [place] ??[address]; all other case types are performed by [facility] ? [facility], [facility] [place] ??[address] ?SURGICAL PATHOLOGY & NON-GYNECOLOGIC CYTOPATHOLOGY REPORT ? DIAGNOSIS ? SMALL INTESTINE, BIOPSY: ? - ACTIVE ENTERITIS, MILD TO MODERATE, NEGATIVE FOR DYSPLASIA. ? SMALL INTESTINE, POUCH, BIOPSY: ? - CHRONIC ACTIVE ENTERITIS, WITH FOCAL EROSION, NEGATIVE FOR DYSPLASIA. ? ANORECTUM, STRICTURE, BIOPSY: ? - CHRONIC ACTIVE PROCTITIS, NEGATIVE FOR DYPLASIA. ? - ATTACHED SQUAMOUS MUCOSA, WITH FOCAL EROSION, MILD TO MODERATE ACUTE ? INFLAMMATION AND REACTIVE CHANGES. ? Specimen Description: ? (1) Small bowel biopsy; (2) pouch biopsy; (3) anal stricture biopsy. ? Operative Procedure: ? Colonoscopy. ? Patient Information/Histo ry/Diagnosis: ? (1) Acute inflammation. Please help characterize. Endoscopic appearance c/w ? IBD; UC vs. Crohn's. Are there granulomas? (2) Pouchitis. (3) Anal ? stricture, rule out cancer. ? Gross: ? Three containers are received labeled Mukul SFady Huber. The first specimen ? is received in a container labeled small bowel biopsy. It consists of two ? pieces of newman tissue, 0.2 and 0.3 cm in greatest dimension, which are ? submitted entirely labeled A1. ? The second specimen is received in a container labeled pouch biopsy. It ? consists of five pieces of newman tissue, ranging from 0.1 to 0.3 cm in ? greatest dimension, which are submitted entirely labeled B1. ? The third specimen is received in a container labeled anal stricture. It ? consists of three pieces of newman tissue, ranging from 0.2 to 0.3 cm in ? greatest dimension, which are submitted entirely labeled C1. ? KLA/MIGUEL 06.10.2014 02:35 pm ? Microscopic: ? Received are slides labeled [id number], Thyer, Muklu S. ? Sections of small bowel biopsy contain two pieces of small intestinal ? mucosa. The lamina propria is variably edematous and fibrotic, shows ? superficial vascular congestion, has moderately increased interstitial ? chronic inflammation, and is associated with mild active inflammation. ? Additionally, there is mild to moderate regenerative epithelial changes, ? and mild attenuation of the villous architecture. Foveolar metaplasia, ? granulomas and well-developed features of chronicity are not identified. ? There is no evidence of dysplasia or malignancy. ? Sections of pouch biopsy contain multiple fragmented pieces of small ? intestinal mucosa. They are associated with moderate mixed inflammation, ? scattered cryptitis, and occasional crypt abscesses with crypt rupture. ? Some of the pieces are focally eroded, and the underlying lamina propria is ? variably edematous and fibrotic, and show patchy areas of superficial ? vascular congestion and hemorrhage. Additionally, there is moderate to ? focally severe villous blunting, mild to moderate crypt architectural ? irregularities, with focal crypt drop-out and branching, and focal basal ? plasmacytosis, indicative of chronicity. There is no evidence of dysplasia ? or malignancy. ? Sections of anal stricture contain fragmented pieces of squamocolumnar ? junction. The lamina propria is diffusely fibrotic, show superficial ? vascular congestion and contains moderate mixed inflammation. Additionally, ? there is scattered cryptitis, mild to moderate crypt architectural ? irregularities, and focal Paneth cell metaplasia; the latter two findings ? are indicative of chronic mucosal injury. The squamous epithelium show ? moderate reactive changes, is superficially infiltrated by neutrophils and ? is focally eroded. There is no evidence of dysplasia or malignancy. ? [facility] 06.11.2014 12:43 pm ? Staging Form: ? No ? ELECTRONIC SIGNATURE FOR SARA BLANK M.D.- 06/11/14 06:23 pm [facility] [employer] [facility] 06/09/2014 5:00 PM CDT Katie Steele MD PATHOLOGY/CYTOLOGY O ESPERANZA [facility] [employer] [facility] [id number] [address] [place] [address] * CLOSTRIDIUM DIFFICILE TOXIN (06/09/2014 3:54 PM CDT) C DIFF TOXIN PCR RESULT Negative Negative [facility] C DIFF TOXIN PCR SOURCE Stool [facility] Stool 06/09/2014 3:54 PM CDT 06/09/2014 6:06 PM CDT Comment:STOOL Katie Steele MD MICROBIOLOGY - GENER AL ORDERABLES [facility] [employer] [facility]# [id number] [address] [place] [address] documented in this encounter Visit Diagnoses Not [...] Bag 06/09/2014 2:34 PM CDT 125 mL/hr documented in this encounter Active and Recently Administered Medications Times are shown in CDT. Continuous Medication Order 06/07/2014 06/08/2014 06/09/2014 lactated ringers solution (CANCELED) IV, at 125 mL/hr, PRE-PROCEDURE CONTINUOUS, Starting on Mon06/09/14 at 1430, Until Mon06/09/14 at 1857, Routine, Pre-Procedure 1434 (New Bag - Prov ider: Rudy Bowman RN)1548 (New Bag - Provider: GEOFFREY Harris)1555 (Fluid Volume - Provider: GEOFFREY Harris)1607 (Stopped - Provider: Rachell Hinojosa RN)1608 (Stopped - Provider: Rachell Hinojosa RN) documented in this encounter Care Teams Vrt Mechanic Relationship Specialty Start Date End Date Martin Kelley MD PCP - General Internal Medicine 02/16/12 08/14/17 documented as of this encounter
--- OUTSIDE RECORDS SUMMARY | 2024-10-24 05:34 | XMS_ITS | Encounter Summary ---
Author Organization [facility] Address [address] [place] [address] Care Team Providers Care Director Of Casework Name Role Phone Martin Kelley MD Primary Care Provider [phone] Reason for Visit * Reason Onset Date Comments Colonoscopy 05/20/2014 Encounter Details Date Type Department Care Team (Late st Contact Info) Description 05/20/2014 Telephone [facility] [address] [place] [address] Lane Ryan MD NO ADDRESS [...] * Telephone Encounter - Ada Tan - 05/20/2014 2:43 PM CDT Called to schedule colonoscopy set up for 06/09/14 @ 2:30 e-mail prep to [email or web address]. documented in this encounter Plan of Treatment Upcoming Encounters Date Type Department Care Team (Late st Contact Info) Description 02/13/2025 10:30 AM CDT Office Visit [facility] [place] [address] [place] [address] Kitty Dover, ANP [address] [place] [address] documented as of this encounter Visit Diagnoses Not on filedocumented in this encounter Care Teams Director Of Casework Relationship Specialty Start Date End Date Martin Kelley MD PCP - General Internal Medicine 02/16/12 08/14/17 documented as of this encounter
--- OUTSIDE RECORDS SUMMARY | 2024-10-24 05:34 | XMS_ITS | Encounter Summary ---
Author Organization [facility] Address [address] [place] [address] Care Team Providers Care Calibration Specialist Name Role Phone Martin Kelley MD Primary Care Provider [phone] Encounter Details Date Type Department Care Team (Late st Contact Info) Description 08/17/2012 Abstract [facility] [address] [place] [address] Lane Ryan MD NO ADDRESS [...] IBD and Gastroenterology Center [place] [address] [facility] [facility] [address] [place] [address] Kitty Dover ANP [address] [facility] [address] [place] [address] documented as of this encounter Visit Diagnoses Not on filedocumented in this encounter Care Teams Calibration Specialist Relationship Specialty Start Date End Date Martin Kelley MD PCP - General Internal Medicine 02/16/12 08/14/17 documented as of this encounter
--- OUTSIDE RECORDS SUMMARY | 2024-10-24 05:34 | XMS_ITS | Encounter Summary ---
Author Organization [facility] Address [address] [place] [address] Care Team Providers Care Spool Worker Name Role Phone Martin Kelley MD Primary Care Provider [phone] Reason for Referral * Eval and Treat (Routine) - Closed Specialty Diagnoses / Procedures Referred By Contac t Referred To Contact Gastroenterology Diagnoses IBD (inflammatory bowel disease) Lnae Ryan MD NO ADDRESS ON FILE Lane Ryan MD NO ADDRESS ON FILE Referral ID Status Reason Start Date Expiration Date Visits Requested Visits Authorized [id number] Closed Performing Department To Schedule (STL) 11/08/2012 11/08/2013 1 1 EXAMINING TECHNICIAN Reason for Visit * Reason Comments Ulcerative Colitis Encounter Details Date Type Department Care Team (Latest Contact Info) Description 11/08/2012 10:00 AM TAX EXAMINING TECHNICIAN Office Visit [facility] GASTROENTEROLOGY [address] [place] [address] Lane Ryan MD NO ADDRESS [...] Sign Reading Time Taken Comments Blood Pressure 118/84 11/08/2012 10:05 AM TAX EXAMINING TECHNICIAN Pulse 92 11/08/2012 10:05 AM TAX EXAMINING TECHNICIAN Temperature - - Respiratory Rate - - Oxygen Saturation - - Inhaled Oxygen Concentration - - Weight 87.3 kg (192 lb 6.4 oz) 11/08/2012 10:05 AM TAX EXAMINING TECHNICIAN Height 175.3 cm (5' 9 ) 11/08/2012 10:05 AM TAX EXAMINING TECHNICIAN Body Mass Index 28.41 11/08/2012 10:05 AM TAX EXAMINING TECHNICIAN documented in this encounter Progress Notes * Lane Ryan MD - 11/08/2012 10:24 AM CST PROGRESS NOTE: Martin Zuleta ([facility]) Edgardo Palomino Brittni Date of 1970 HPI: pouchitis See below Ileitis humira q 2 wks;; bm-2-3/day;; loose;;no blood;; no cramps;; Current Outpatient Prescriptions Medication Sig Dispense Refill ??? adalimumab (HUMIRA) 40 mg/0.8 mL subCUT Kit Inject 0.8 mL by subcutaneous injection see administration instructions. Take 4 inj day 1 and 2 injection day 14 then 1 inj every 2 weeks 8 Each 6 ??? ondansetron (ZOFRAN ODT) 4 mg Oral [...] Allergies Allergen Reactions ??? Remicade (Infliximab) Rash REVIEW OF SYSTEMS: Constitutional: denies fevers, [...] heart/chest, nausea, syncope, shortness of breath Gastrointestinal: Gastrointestinal ROS: see pi Genitourinary: denies dysuria, frequency, hematuria, hesitancy, nocturia, urinary incontinence Musculoskeletal: negative for back pain, neck pain or joint pain or swelling Neurological: denies blurry or disturbed vision, gait problems, dizziness, difficulty swallowing, muscle weakness, difficulty saying words Behavior, Psychologic: denies aggressive or problematic behavior, anxiety, mood issues, substance use, learning difficulty, unusual fears Endocrine: denies sudden changes in mood, temperature intolerance, polyuria, polydipsia, skin changes PHYSICAL EXAM: BP 118/84 Pulse 92 Ht 1.753 m (5' 9 ) Wt 87.272 kg (192 lb 6.4 oz) BMI 28.41 kg/m2 GENERAL: Well developed and in no acute [...] NEURO: Neurologic exam was grossly non-focal. ASSESSMENT: Doing very well on humira;; prob had Crohn's disease PLAN: Cont humira;; check lower endoscopy Lane Ryan MD EXAMINING TECHNICIAN documented in this encounter Plan of Treatment Upcoming Encounters Date Type Department Care Team (Late st Contact Info) Description 02/13/2025 10:30 AM CDT Office Visit [facility] IBD and Gastroenterology Center [place] [address] [place] [address] Kitty Dover ANP [address] [place] [address] [place] [address] Scheduled Referrals Name Type Priority Associated Diagnoses Order Schedule AMB REFERRAL TO GASTROENTEROLOGY Outpatient Referral Routine IBD (inflammatory bowel disease) Ordered: 11/08/2012 documented as of this encounter Visit Diagnoses Diagnosis IBD (inflammatory bowel disease)- Primary Other and unspecified noninfectious gastroenteritis and colitis documented in this encounter Care Teams Spool Worker Relationship Specialty Start Date End Date Martin Kelley MD PCP - General Internal Medicine 02/16/12 08/14/17 documented as of this encounter
--- OUTSIDE RECORDS SUMMARY | 2024-10-24 05:34 | XMS_ITS | Encounter Summary ---
Author Organization [employer] Address [address] [place] [address] Care Team Providers Care Blasting Entry Specialist Name Role Phone Martin Kelley MD Primary Care Provider [phone] Reason for Visit * Auth/Cert - Closed Specialty Diagnoses / Procedures Referred By Lambert t Referred To Contact Gastroenterology Diagnoses UC (ulcerative colitis) UC (ulcerative colitis) [556.9] Procedures COLONOSCOPY [facility] [address], [place] [address] Referral ID Status Reason Start Date Expiration Date Visits Re quested Visits Authorized [id number] Closed 1 1 Encounter Details Date Type Department Care Team (Late st Contact Info) Description 06/09/2014 2:30 PM CDT - 06/09/2014 3:00 PM CDT Surgery [facility] [address] [place] [address] Katie Steele MD NO ADDRESS ON FILE COLONOSCOPY Surgery Details Date/Time Status Location OR Service Patient Class Case Class Case Type Trauma Case? 06/09/2014 2:30 PM Posted [facility] GI 04 Gastroenterology Outpatient Elective No Panel 1 Procedure LRB Anes Op Region Wound Class Comments COLONOSCOPY N/A General Anus Clean Contaminated -II Surgeon Surgeon Role Service Panel Katie Steele MD Primary Gastroenterology 1 Case Notes NPR documented in this encounter Social History Tobacco [...] Sign Reading Time Taken Comments Blood Pressure 129/71 06/09/2014 2:35 PM CDT Pulse 84 06/09/2014 2:35 PM CDT Temperature 36.9 ??C (98.4 ??F) 06/09/2014 2:35 PM CD T Respiratory Rate 16 06/09/2014 2:35 PM CDT Oxygen Saturation 95% 06/09/2014 2:35 PM CDT Inhaled Oxygen Concentration - - [...] History Procedure Laterality Date ??? Hx colectomy 2001 ??? Pr colonoscopy,diagnostic 12/08/2009 COLONOSCOPY performed by LOUISE SOTELO at [facility] ??? Pr sigmoidoscopy,diagnostic 02/16/2012 SIGMOIDOSCOPY FLEXIBLE performed by Louise Sotelo MD at [facility] GI [facility] ??? Pr endoscopy of bowel pouch 02/16/2012 POUCHOSCOPY performed by Louise Sotelo MD at [facility] ??? Pr esophagogastroduodenoscopy transoral diagnostic 02/28/2012 ESOPHAGOGASTRODUODENOSCOPY performed by Katie Steele MD at [facility] GI [facility] ??? Pr small bowel endoscopy,biopsy 02/28/2012 BOWEL SMALL BIOPSY ENDOSCOPIC performed by Katie Steele MD at [facility] ??? Pr small bowel endoscopy,past 2nd duod 06/12/2012 SMALL BOWEL ENTEROSCOPY performed by Katie Steele MD at [facility] GI [facility] ??? Pr dilation rectal stricture w anest 06/12/2012 RECTAL STRICTURE DILATATION performed by Katie Steele MD at [facility] Prescriptions prior to admission Medication [...] 06/10/2014 1:49 AM CDTAssociated Order(s): GI REPORT [place], [place] [address] Gastroenterology CSN: [id number] DATE OF SERVICE: ILEOSCOPY REPORT DATE OF [...] May increase the Humira to once weekly. ZANEF:MEDQ DID: [id number] Dictated by: Katie Steele MD * Katie Steele MD - 06/09/2014 3:53 PM CDTAssociated Order(s): GI REPORT [facility] Endoscopy Patient Name: Mukul Huber Procedure Date No Time: 06/09/2014 Date of : 1970 Admit Type: Outpatient Attending MD: Katie Steele MD Procedure: Images Only-Procedure Report in [facility] Providers: Katie Steele MD Referring MD: Martin Hopper MD Submitted Katie Steele MD Number of Addenda: [phone] [facility]; [place] [address] documented in this encounter OR Notes * [...] Chin RN - 06/06/2014 5:12 PM CDT [facility] GI LAB Pre-Anesthesia Protocol for GI Lab [...] [facility] [place] [address] [place] [address] Kitty Dover, MIRTA [address] [place] [address] [place] [address] documented [...] Steele MD - 06/09/2014 3:53 PM CDT [facility] Endoscopy Patient Name: Mukul Huber Procedure Date No Time: 06/09/2014 Date of : 1970 Admit Type: Outpatient Attending MD: Katie Steele MD Procedure: Images Only-Procedure Report in [facility] Providers: Katie Steele MD Referring MD: Martin Hopper MD Submitted Katie Steele MD Number of Addenda: [phone]; [place] [address] Katie Steele MD - 06/10/2014 1:49 AM CDT [place], [place] [address] Gastroenterology CSN: [id number] DATE OF SERVICE: ILEOSCOPY REPORT DATE OF [...] May increasethe Humira to once weekly. JSF:MEDQ DID:[id number] Dictated by: Katie Steele MD Katie Steele MD GI PROCEDURE [facility] * PATHOLOGY (06/09/2014 5:00 PM CDT) SURGICAL PATHOLOGY ?[facility] ?[address] ? [place], [place] ??[address] ? Patient: ??MUKUL HUBER S ? : ??1970 ? Procedure Date: ??06/09/2014 ? Accession Date: ??06/10/2014 ? Case No: ??1- [id number] ? Ordering Dr: ??STEELE, KAITE S ? Case type SW is performed by [facility], [address] [facility], ? [place], [place] ??[address]; all other case types are performed by [facility] ? [facility], [address] [facility], [place] ??[address] ?SURGICAL PATHOLOGY & NON-GYNECOLOGIC CYTOPATHOLOGY REPORT ? [...] ? Three containers are received labeled Mukul GeorgetteFady Rebekahyesi. The first specimen ? is received in [...] which are submitted entirely labeled C1. ? KLA/RAT 06.10.2014 02:35 pm ? Microscopic: ? Received are slides labeled [id number], Mukul Huber Georgette. ? Sections of small bowel biopsy contain [...] no evidence of dysplasia or malignancy. ? [facility] 06.11.2014 12:43 pm ? Staging Form: ? No ? ELECTRONIC SIGNATURE FOR SARA BLANK M.D.- 06/11/14 06:23 pm [facility] 06/09/2014 5:00 PM CDT Katie Steele MD PATHOLOGY/CYTOLOGY O RDERABLES Performing Organization Address [facility]/ZIP Co de Phone Number [facility] [employer] [facility] [id number] [address] [place] [address] * CLOSTRIDIUM DIFFICILE TOXIN (06/09/2014 3:54 PM CDT) C DIFF TOXIN PCR RESULT Negative Negative [facility] C DIFF TOXIN PCR SOURCE Stool [facility] Stool 06/09/2014 3:54 PM CDT 06/09/2014 6:06 PM CDT Comment:STOOL Katie Steele MD MICROBIOLOGY - GENER AL ORDERABLES Performing Organization Address [facility]/ZIP Co de Phone Number [facility] [employer] [facility]# [id number] [address] [place] [address] documented in this encounter Visit Diagnoses Diagnosis [...] Provider: GEOFFREY Harris)[phone] (Stopped - Provider: Rachell Hinojosa, JIE)1608 (Stopped - Provider: Rachell Hinojosa, JIE) documented in this encounter Care Teams Blasting Entry Specialist Relationship Specialty Start Date End Date Martin Kelley MD PCP - General Internal Medicine 02/16/12 08/14/17 documented as of this encounter
--- OUTSIDE RECORDS SUMMARY | 2024-10-24 05:34 | XMS_ITS | Encounter Summary ---
Author Organization [facility] Address [address] [place] [address] Care Team Providers Care Shoulder Pad Molder Name Role Phone Martin Kelley MD Primary Care Provider [phone] Encounter Details Date Type Department Care Team (Late st Contact Info) Description 06/21/2012 Abstract [facility] GASTROENTEROLOGY [address] [place] [address] Lane Ryan MD NO ADDRESS [...] Description 02/13/2025 10:30 AM CDT Office Visit [facility] IBD and Gastroenterology Center [place] [address] [facility] [address] [place] [address] Kitty Dover ANP [address] [place] [address] documented as of this encounter Visit Diagnoses Not on filedocumented in this encounter Care Teams Shoulder Pad Molder Relationship Specialty Start Date End Date Martin Kelley MD PCP - General Internal Medicine 02/16/12 08/14/17 documented as of this encounter
--- OUTSIDE RECORDS SUMMARY | 2024-10-24 05:34 | XMS_ITS | Encounter Summary ---
Author Organization [facility] Address [address] [place] [address] Care Team Providers Care Securities And Real Estate Director Name Role Phone Martin Kelley MD Primary Care Provider [phone] Encounter Details Date Type Department Care Team (Late st Contact Info) Description 08/23/2012 Abstract [facility] GASTROENTEROLOGY [address] [facility] [place] [address] Lane Ryan [...] 10:30 AM CDT Office Visit [facility] IBD and Gastroenterology Center [place] [address] [facility] [place] [address] Kitty Dover ANP [address] [facility] [facility] [place] [address] documented as of this encounter Visit Diagnoses Not on filedocumented in this encounter Care Teams Securities And Real Estate Director Relationship Specialty Start Date End Date Martin Kelley MD PCP - General Internal Medicine 02/16/12 08/14/17 documented as of this encounter
--- OUTSIDE RECORDS SUMMARY | 2024-10-24 05:34 | XMS_ITS | Encounter Summary ---
Author Organization [facility] Address [address] [place] [address] Care Team Providers Care Gas Line Installer Name Role Phone Martin Kelley MD Primary Care Provider [phone] Encounter Details Date Type Department Care Team (Latest Contact Info) Description 03/08/2012 Orders Only [facility] GASTROENTEROLOGY [address] [place] [address] Lane Ryan MD NO ADDRESS ON FILE Ulcerative (chronic) enterocolitis (Primary Dx) Social History Tobacco Use Types [...] [facility] IBD and Gastroenterology Center [place] [address] [place] [address] Kitty Dover, MIRTA [address] [place] [address] [place] [address] documented as of this encounter Visit Diagnoses Diagnosis Ulcerative (chronic) enterocolitis- Primary documented in this encounter Care Teams Gas Line Installer Relationship Specialty Start Date End Date Martin Kelley MD PCP - General Internal Medicine 02/16/12 08/14/17 documented as of this encounter
--- OUTSIDE RECORDS SUMMARY | 2024-10-24 05:34 | XMS_ITS | Encounter Summary ---
Author Organization [facility] Address [address] [place] [address] Care Team Providers Care Curb Hop Name Role Phone Martin Kelley MD Primary Care Provider [phone] Reason for Visit * Auth/Cert - Closed Specialty Diagnoses / Procedures Referred By Lambert t Referred To Contact Gastroenterology Diagnoses UC (ULCERATIVE COLITIS) [556.9] Procedures ILEOSCOPY [facility] [address] [place] [address] Referral ID Status Reason Start Date Expiration Date Visits Re quested Visits Authorized [id number] Closed 1 1 Encounter Details Date Type Department Care Team (Late st Contact Info) Description 06/12/2012 8:40 AM CDT - 06/12/2012 9:20 AM CDT Surgery [facility] [place] [address] [facility] [place] [address] Katie Steele MD NO ADDRESS ON FILE SMALL BOWEL ENTEROSCOPY Surgery Details Date/Time Status Location OR Service Patient Class Case Class Case Type Trauma Case? 06/12/2012 8:40 AM Posted [facility] GI 04 Gastroenterology Outpatient Elective No Panel 1 Procedure LRB Anes Op Region Wound Class Comments SMALL BOWEL ENTEROSCOPY N/A General Mouth Clean Contaminated-II RETIRED RECTAL STRICTURE DILATATION N/A General Anus Contaminated-III Surgeon Surgeon Role Service Panel Katie Steele [...] Sign Reading Time Taken Comments Blood Pressure 121/69 06/12/2012 8:09 AM CDT Pulse 72 06/12/2012 8:09 AM CDT Temperature 37 ??C (98.6 ??F) 06/12/2012 8:09 AM CDT Respiratory Rate 18 06/12/2012 8:09 AM CDT Oxygen Saturation 93% 06/12/2012 8:09 AM CDT Inhaled Oxygen Concentration - - Weight 80.3 kg (177 lb) 06/12/2012 8:09 AM CDT Height 175.3 cm (5' 9 ) 06/12/2012 8:09 AM CDT Body Mass Index 26.14 06/12/2012 8:09 AM CDT documented in this encounter Discharge Instructions * Discharge Instructions* Christina Noriega RN - 06/12/2012 9:51 AM CDT If [...] 12/08/2009 COLONOSCOPY performed by LOUISE SOTELO at [facility] GI [facility] ??? Pr sigmoidoscopy,diagnostic 02/16/2012 SIGMOIDOSCOPY FLEXIBLE performed by Louise Sotelo MD at [facility] GI LAB ??? Pr endoscopy of bowel pouch 02/16/2012 POUCHOSCOPY performed by Louise Sotelo MD at [facility] GI [facility] ??? Pr upper gi endoscopy,diagnosis 02/28/2012 ESOPHAGOGASTRODUODENOSCOPY performed by Katie Steele MD at [facility] ??? Pr small bowel endoscopy,biopsy 02/28/2012 BOWEL SMALL BIOPSY ENDOSCOPIC performed by Katie Steele MD at [facility] Prescriptions prior to admission [...] this encounter Procedure Notes * Sebastian Alejandro [facility] - 06/14/2012 8:01 PM CDTAssociated Order(s): GI REPORT * Katie Steele MD - 06/12/2012 6:21 PM CDTAssociated Order(s): GI REPORT [place], [place] [address] Gastroenterology CSN: [id number] DATE OF SERVICE: SMALL BOWEL ENDOSCOPY INDICATIONS [...] with him the option of going to [place]. He is advised to see me back in the office in 1 month. JSF:MEDQ DID: [id number] Dictated by: Katie Steele MD * Sebastian Scanning, [facility] - 06/12/2012 9:24 AM CDTAssociated Order(s): GI REPORT * Katie Steele MD - 06/12/2012 9:24 AM CDTAssociated Order(s): GI REPORT [facility] Endoscopy Patient Name: Mukul Huber Procedure Date No Time: 06/12/2012 Date of : 1970 Admit Type: Outpatient Attending MD: Katie Steele MD Procedure: Images Only-Procedure Report in [facility] Providers: Katie Steele MD Submitted Katie Steele MD Number of Addenda: [address]; [place] [address] documented in this encounter OR Notes * OR Anesthesia - Stl Scanning, [facility] - 06/14/2012 8:01 PM CDT Electronically signed by Reggie, [facility] Stl Machine Coil Assembler Incoming at 06/14/2012 8:01 PM CDT * Anesthesia Post Evaluation - Isacc Perez, [place] - 06/12/2012 10:36 AM CDT Phase II Postanesthesia Evaluation Including [facility] Modified Rebekah Score Patient seen and evaluated: RESPIRATORY FUNCTION: Respiration: able to breath and cough freely (06/12/12928) [2=able to breathe and cough freely, 1=dyspnea, [...] wetness] [facility] Modified Rebekah Score: Score: 19 (06/12/12928) COMMENTS: No apparent Anesthesia related complications Isacc Perez CRNA 06/12/2012 10:36 AM * OR Anesthesia - Estella Payne MD - 06/12/2012 8:31 AM CDT GI Lab Pre-Anesthesia Evaluation - Long Form 06/12/2012 8:32 AM Name: Mukul Huber Age: 41 y.o. Sex: male [facility]: [id number] Procedure: Procedure(s): ILEOSCOPY Surgeons/Assistants: Surgeon(s) and Role: [...] Metabolic acidosis 02/23/2012 ??? Sepsis 02/23/2012 ??? JOREG (acute kidney injury) 02/23/2012 ??? Hyponatremia 02/22/2012 ??? Abdominal pain 02/22/2012 Past Medical History Diagnosis Date ??? Ulcerative colitis ??? Unspecified adverse effect of anesthesia violent after 1st surgery ??? Ulcerative colitis ??? Asthma as a child Past Surgical History Procedure Date ??? Hx colectomy 2001 ??? Pr colonoscopy,diagnostic 12/08/2009 COLONOSCOPY performed by LOUISE SOTELO at [facility] GI LAB ??? Pr sigmoidoscopy,diagnostic 02/16/2012 SIGMOIDOSCOPY FLEXIBLE performed by Louise Sotelo MD at [facility] GI LAB ??? Pr endoscopy of bowel pouch 02/16/2012 POUCHOSCOPY performed by Louise Sotelo MD at [facility] ??? Pr upper gi endoscopy,diagnosis 02/28/2012 ESOPHAGOGASTRODUODENOSCOPY performed by Katie Steele MD at [facility] GI [facility] ??? Pr small bowel endoscopy,biopsy 02/28/2012 BOWEL SMALL BIOPSY ENDOSCOPIC performed by Katie Steele MD at [facility] History Substance Use Topics ??? [...] Notes * Scanned Form - Stl Scanning, [facility] - 06/14/2012 8:01 PM CDT Electronically signed by [facility] Stl Machine Coil Assembler Incoming at 06/14/2012 8:01 PM CDT * Scanned Form - Stl Scanning, [facility] - 06/14/2012 8:01 PM CDT Electronically signed by Interface [facility] Stl Machine Coil Assembler Incoming at 06/14/2012 8:01 PM CDT * Patient Instructions - Stl Scanning, [facility] - 06/14/2012 8:01 PM CDT Electronically signed by Interface [facility] Stl Machine Coil Assembler Incoming at 06/14/2012 8:01 PM CDT documented in this encounter Plan of Treatment Upcoming Encounters Date Type Department Care Team (Late st Contact Info) Description 02/13/2025 10:30 AM CDT Office Visit [facility] [place] [address] [place] [address] Kitty Dover, ANP [address] [place] [address] documented as of this encounter Procedures Procedure [...] Steele MD - 06/12/2012 6:21 PM CDT [place], [place] [address] Gastroenterology CSN: [id number] DATE OF SERVICE: SMALL BOWEL ENDOSCOPY INDICATIONS [...] discuss with [facility]the [facility] He is advised to see me back in the officein 1 month. JSF:MEDAllison DID:[id number] Dictated by: Katie Steele MD [facility], [facility] - 06/14/2012 8:01 PM CDT Katie Steele MD GI PROCEDURE [facility] * PATHOLOGY (06/12/2012 12:15 PM CDT) SURGICAL PATHOLOGY ?[facility] ?[address] ? [place], [place] ??[address] ? Patient: ??MUKUL HUBER S ? : ??1970 ? Procedure Date: ??06/12/2012 ? Accession Date: ??06/12/2012 ? Case No: ??[id number] ? Ordering Dr: ??KATIE STEELE ? Case type SW is performed by [facility], [address], ? [place], [place] ??[address]; all other case types are performed by [facility] ? [facility], [address] [facility], [place] ??[address] ?SURGICAL PATHOLOGY & NON-GYNECOLOGIC CYTOPATHOLOGY REPORT ? [...] ? Microscopic: ? The slides are labeled [id number], Mukul Huber. ? Sections of the ileum [...] appearance is compared to the previous biopsies ([id number]) from February ? 2011, and both show similar histologic features. ? CJ/PJS 06.13.2012 10:14 am ? Staging Form: ? No ? ELECTRONIC SIGNATURE FOR SHANNAN CEDENO MD- 06/13/12 03:01 pm [facility] 06/12/2012 12:1 5 PM CDT Katie Steele MD PATHOLOGY/CYTOLOGY O RDERABLES Performing Organization Address [facility] Co de Phone Number [facility]# [id number] [address] [place] [address] * CLOSTRIDIUM DIFFICILE TOXIN (06/12/2012 9:25 AM CDT) C DIFF TOXIN PCR RESULT Negative Negative [facility] C DIFF TOXIN PCR SOURCE Stool [facility] Stool specimen (specimen) 06/12/2012 9:25 AM CDT 06/12/2012 12:11 PM CDT Comment:STOOL Katie Steele MD MICROBIOLOGY - GENER AL ORDERABLES Performing Organization Address [facility] Co de Phone Number [facility]# [id number] [address] [place] [address] documented in this encounter Visit Diagnoses Diagnosis UC (ulcerative colitis) Ulcerative colitis, unspecified documented in this encounter Administered Medications Inactive Administered Medications - up to 3 most recent administrations Medication Order MAR Action Action Date Dose Rate Site lactated ringers solution IV, at 125 mL/hr, PRE-PROCEDURE CONTINUOUS, Starting on Mon06/12/12 at 0815, Until Mon06/12/12 at 1238, Routine New Bag 06/12/2012 8:15 AM CDT 125 mL /hr documented in this encounter Active and Recently Administered Medications Times are shown in CDT. Continuous Medication Order 06/10/2012 06/11/2012 06/12/2012 lactated ringers solution (CANCELED) IV, at 125 mL/hr, PRE-PROCEDURE CONTINUOUS, Starting on Mon06/12/12 at 0815, Until Mon06/12/12 at 1238, Routine 0815 (New Bag - Prov ider: Janice Holt RN)1000 (Stopped - Provider: Christina Noriega RN) documented in this encounter Care Teams Curb Hop Relationship Specialty Start Date End Date Martin Kelley MD PCP - General Internal Medicine 02/16/12 08/14/17 documented as of this encounter
--- OUTSIDE RECORDS SUMMARY | 2024-10-24 05:34 | XMS_ITS | Encounter Summary ---
Author Organization [facility] Address [address] [place] [address] Care Team Providers Care Director Hr Communications Name Role Phone Martin Kelley MD Primary Care Provider [phone] Reason for Visit * Reason Comments Follow Up Encounter Details Date Type Department Care Team (Latest Contact Info) Description 03/15/2012 10:15 AM CDT Office Visit [facility] GASTR[facility]ENTEROLOGY [address] [facility] [address] [place] [address] Lane Ryan MD [...] Sign Reading Time Taken Comments Blood Pressure 96/77 03/15/2012 11:44 AM CDT Pulse 94 03/15/2012 11:44 AM CDT Temperature - - Respiratory Rate - - Oxygen Saturation - - Inhaled Oxygen Concentration - - Weight 74.8 kg (165 lb) 03/15/2012 11:44 AM CDT Height 175.3 cm (5' 9 ) 03/15/2012 11:44 AM CDT Body Mass Index 24.37 03/15/2012 11:44 AM CDT documented in this encounter Progress Notes * Lane Ryan MD - 03/15/2012 12:07 PM CDT PROGRESS NOTE: Referring Physician No ref. provider found Edgardo Elkins Date of 1970 HPI: Enteritis/pouchitisEric is a 41-year-old male who is seen following his hospitalization when he hadsevere pouchitis/enteritis. He is currently on treatment with prednisone 20 mg daily, Protonix 40 mg daily, Cipro 1 b.i.d., and vancomycin 250 mg q.i.d. He has about 3 days left on the vancomycin, and he has been on the prednisone 20 mg for 2 days. In general, the patient feels great. He denies abdominal pain. His bowel motions are four or five times per day with the consistency of mashed potatoes. He does complain of feeling nervous and shaky. Current Outpatient Prescriptions Medication Sig Dispense Refill ??? HYDROcodone-acetaminophen (NORCO) [...] daily at bedtime. 30 Tab 0 ??? predniSONE (DELTASONE) 10 mg Oral tablet Take 3 Tabs by mouth daily with breakfast. 30 Tab 0 ??? pantoprazole (PROTONIX) 40 mg Oral TbEC Take 1 Tab by mouth daily before breakfast. 30 Tab 0 ??? ciprofloxacin (CIPRO) 500 mg Oral tablet Take 1 Tab by mouth every 12 hours for 14 days. 28 Tab0 ??? vancomycin (VANCOCIN) 250 mg/5 mL Oral SolR Take 5 mL by mouth every 6 hours for 14 days. 280 mL 0 ??? prochlorperazine maleate (COMPAZINE) 5 mg Oral tablet Take 1 Tab by mouth every 6 hours as needed for Nausea/Emesis. 20 Tab 0 No Known Allergies REVIEW OF SYSTEMS: Constitutional: denies fevers, chills, [...] heart/chest, nausea, syncope, shortness of breath Gastrointestinal: neg Genitourinary: denies dysuria, frequency, hematuria, hesitancy, nocturia, urinary incontinence Musculoskeletal: denies: myalgia, arthralgia, stiff joints, neck pain, back pain, muscle weakness Neurological: denies blurry or disturbed vision, gait problems, dizziness, difficulty swallowing, muscle weakness, difficulty saying words Behavior, Psychologic: denies aggressive or problematic behavior, anxiety, mood issues, substance use, learning difficulty, unusual fears Endocrine: denies sudden changes in mood, temperature intolerance, polyuria, polydipsia, skin changes PHYSICAL EXAM: BP 96/77 Pulse 94 Ht 1.753 m (5' 9 ) Wt 74.844 kg (165 lb) BMI 24.37 kg/m2 GENERAL: Well developed and in no [...] signs of consolidation or wheezing ABDOMEN: Soft with active bowel sounds. There was no focal abdominal tenderness, hepatosplenomegalyor mass appreciated. RECTAL: Deferred EXTREMITIES: Extremities were without edema. There was no active synovitis. NEURO: Neurologic exam was grossly non-focal. ASSESSMENT: The patient is doing quite well and is basically going into remission at this time. Theetiology of his enteritis is still not absolutely certain with a question of inflammatory bowel disease versus pouchitis. PLAN: At this time, we will continue to taper the patient off the prednisone and we will take him down 5 mg every 2 weeks. We will allow him to complete his course of vancomycin. We will continue himon Cipro 500 mg daily. We will continue the Protonix 1 daily. The patient is to continue with his Remicade, completing induction dosing. We will obtain laboratory studies including CBC, CMP and magnesium. There are no diagnoses linked to this encounter. Lane Ryan MD documented in this encounter Plan of Treatment Upcoming Encounters Date Type Department Care Team (Late st Contact Info) Description 02/13/2025 10:30 AM CDT Office Visit [facility] [place] [address] [place] [address] Kitty Dover [facility] [address] [place] [address] Scheduled Orders Name Type Priority Associated Diagnoses Orde r Schedule CBC WITH DIFFERENTIAL Lab Routine Ulcerative colitis 1 Occurrences starting 03/15/2012 until 03/15/2013 C-REACTIVE PROTEIN Lab Routine Ulcerative colitis 1 Occurrences starting 03/15/2012 until 03/15/2013 COMPREHENSIVE METABOLIC PANEL Lab Routine Ulcerative colitis 1 Occurrences starting 03/15/2012 until 03/15/2013 MAGNESIUM LEVEL Lab Routine Ulcerative colitis 1 Occurrences starting 03/15/2012 until 03/15/2013 documented as of this encounter Visit Diagnoses Diagnosis Ulcerative colitis- Primary Ulcerative colitis, unspecified documented in this encounter Care Teams Director Hr Communications Relationship Specialty Start Date End Date Martin Kelley MD PCP - General Internal Medicine 02/16/12 08/14/17 documented as of this encounter
--- OUTSIDE RECORDS SUMMARY | 2024-10-24 05:34 | XMS_ITS | Encounter Summary ---
Author Organization [facility] Address [address] [place] [address] Care Team Providers Care Crew Boat Operator Name Role Phone Martin Kelley MD Primary Care Provider [phone] Encounter Details Date Type Department Care Team (Late st Contact Info) Description 02/29/2012 Abstract [facility] GASTROENTEROLOGY [address] [place] [address] Lane Ryan MD NO ADDRESS [...] [facility] Gastro[facility] [place] [address] [place] [address] Kitty Dover ANP [address] [facility] [address] [place] [address] documented as of this encounter Visit Diagnoses Not on filedocumented in this encounter Care Teams Crew Boat Operator Relationship Specialty Start Date End Date Martin Kelley MD PCP - General Internal Medicine 02/16/12 08/14/17 documented as of this encounter
--- OUTSIDE RECORDS SUMMARY | 2024-10-24 05:34 | XMS_ITS | Encounter Summary ---
Author Organization [facility] Address [address] [place] [address] Care Team Providers Care Mail Carrier Technician Name Role Phone Martin Kelley MD Primary Care Provider [phone] Reason for Visit * Reason Onset Date Comments Results 04/13/2012 Encounter Details Date Type Department Care Team (Late st Contact Info) Description 04/13/2012 Telephone [facility] GASTROENTEROLOGY [address] [facility] [address] [place] [address] Katie Steele MD NO ADDRESS [...] * Telephone Encounter - Lani Noriega - 04/13/2012 10:54 AM CDT Patient informed labs were OK. * Telephone Encounter - Lani Noriega - 04/13/2012 10:52 AM CDT Message copied by LANI NORIEGA on MonApr 13, 2012 10:52 AM ------ Message from: KATIE STEELE Created: MonApr 12, 2012 6:58 PM Call and tell lab/path ok documented in this encounter Plan of Treatment Upcoming Encounters Date Type Department Care Team (Late st Contact Info) Description 02/13/2025 10:30 AM CDT Office Visit [facility] IBD and Gastroenterology [facility] [place] [address] [place] [address] Kitty Dover, [facility] [address] [place] [address] [place] [address] documented as of this encounter Visit Diagnoses Not on filedocumented in this encounter Care Teams Mail Carrier Technician Relationship Specialty Start Date End Date Martin Kelley MD PCP - General Internal Medicine 02/16/12 08/14/17 documented as of this encounter
--- OUTSIDE RECORDS SUMMARY | 2024-10-24 05:34 | XMS_ITS | Encounter Summary ---
Author Organization [facility] Address [address] [place] [address] Care Team Providers Care Network Support Administrator Name Role Phone Martin Kelley MD Primary Care Provider [phone] Reason for Visit * Reason Comments Abdominal Pain c/o low abd pain x 2 weeks, nausea and vomiting started today, denies fever * Auth/Cert - Closed Specialty Diagnoses / Procedures Referred By Contac t Referred To Contact Emergency Medicine [facility] Emergency Dept [address] [place] [address] Referral ID Status Reason Start Date Expiration Date Visits Re quested Visits Authorized [id number] Closed 1 1 Encounter Details Date Type Department Care Team (Late st Contact Info) Description 07/26/2012 9:12 AM CDT - 07/26/2012 12:47 PM CDT Emergency [facility] Emergency Department [address] [place] [address] Girish Abreu MD [address] [facility] [place] [address] Nausea vomiting and diarrhea; Inflammatory bowel disease Discharge Disposition: Home or Self Care Social [...] Sign Reading Time Taken Comments Blood Pressure 130/70 07/26/2012 12:00 PM CDT Pulse 95 07/26/2012 12:00 PM CDT Temperature 36.4 ??C (97.6 ??F) 07/26/2012 9:09 AM CD T Respiratory Rate 18 07/26/2012 12:00 PM CDT Oxygen Saturation 99% 07/26/2012 12:00 PM CDT Inhaled Oxygen Concentration - - Weight 77.1 kg (170 lb) 07/26/2012 9:09 AM CDT Height 175.3 cm (5' 9 ) 07/26/2012 9:09 AM CDT Body Mass Index 25.1 07/26/2012 9:09 AM CDT documented in this encounter Discharge Instructions * Discharge Instructions* Girish Abreu MD - 07/26/2012 12:10 PM CDT Return to this facility if your symptoms worsen Call the referral physician on next available weekday for an appointment this week Take all medicines as directed. Maintain hydration by drinking small amounts of clear fluids frequently, then soft diet, and then advance diet as tolerated. May use OTC Imodium if desired for any diarrhea. Call if symptoms worsen, high fever, severe weakness or fainting, increased abdominal pain, blood in stool or vomit, or failure to improve in 2-3 days. * Attachments The following attachments cannot be sent through Care Everywhere. * ULCERATIVE COLITIS: AFTER YOUR VISIT ([place]) * NAUSEA AND VOMITING: AFTER YOUR VISIT ([place]) * DIARRHEA: AFTER YOUR VISIT ([place]) documented in this encounter Medications at Time of Discharge Medication Sig Dispensed Refills Start Date End Date rifaximin (XIFAXAN) 550 mg Oral Tab Take 1 Tab by mouth 2 times daily for 5 days. 10 Tab 0 07/26/2012 07/31/2012 ondansetron (ZOFRAN ODT) [address] 1 Tab under tongue every 6 hours as needed for Nausea. 20 Tab none 07/26/2012 08/24/2017 ciprofloxacin (CIPRO) 500 mg Oral tabletIndications:Ulcerat lazarus colitis Take 1 Tab by mouth 2 times daily. 60 Tab 0 07/16/2012 08/24/2017 HYDROcodone-acetaminophen (NORCO) 5-325 mg Oral tablet Take [...] 04/11/2012 08/24/2017 documented as of this encounter Consult Notes * Lane Ryan MD - 07/27/2012 4:11 PM CDT CECILESUNILIC Georgette Date of Service: : 1970 (41) M Admit Date: 07/26/2012 MR No: [id number] Discharge Date: 07/26/2012 ER/EMERGENCY [place], [place] [address] Consultation CSN: [id number] DATE OF SERVICE: HISTORY OF PRESENT ILLNESS Mukul is a 41-year-old male seen in the emergency room of consultation from Dr. Girish Abreu. The patient is known to have inflammatory bowel disease with a previous proctocolectomy. I followed the patient now for the past several months in consultation for Dr. Louise Rizo. The patient presented with diarrhea and abdominal pain and was noted to have a severe inflammation of the pouch and small intestine. He had a previous proctocolectomy for ulcerative colitis. On his last visit, the patient had an endoscopy which showed moderate inflammation of the pouch and the small intestine, there are Crohn's appearing ulcers noted. The patient has been treated with Remicade and Cipro. Today, the patient was at work and became ill, he became nauseated and vomited on 2 occasions. He has been having increasing diarrhea recently. He was hospitalized at [facility] and was treated for infection and had been discharged. He had been given Cipro for treatment of his enteritis and he did n otice benefit with that, although recently over the last few days his diarrhea has become more significant. His usual bowel motions were 4 day and he has been going 8 to 10. Since he has been in the emergency room, he has had evaluation including CAT scan, which showed thickened distal small intestine related to the pouch. PHYSICAL EXAMINATION GENERAL: The patient is alert, pale. VITAL SIGNS: Stable. SKIN, HEAD, EYES, EARS, NOSE, AND THROAT: Normal. HEART: Regular rhythm. LUNGS: Clear. ABDOMEN: Soft. Healed scars. Active bowel sounds. Minimally tender. No rebound or rigidity. EXTREMITIES: Unremarkable. IMPRESSION Inflammatory bowel disease with enteritis. 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 He has been treated with Remicade and antibiotics. He states that he has had tingling from Flagyl and symptoms suggestive of peripheral neuropathy. He does feel well at this time and is strong enough to go home. RECOMMENDATIONS We will place him on rifaximin 550 mg b.i.d., continue the Cipro, I am looking into placing him on Humira and may even possibly add methotrexate. JSF:MEDQ DID: [id number] Dictated by: Laen Ryan MD documented in this encounter ED Notes * Susie Jackson RN - 07/26/2012 12:44 PM CDT D/C info discussed and all questions reviewed. Printed info and rx to pt. Pt verbalizes understanding. VSS. IV d/rosana intact. Amb out without issues. * Susie Jackson RN - 07/26/2012 11:[address] Ryan to room. * Summary-Susie Arzola RN - 07/26/2012 11:[address] Abreu to room. * Angel-Susie Arzola RN - 07/26/2012 10:30 AM CDT Up to [facility]- lg diarrhea stool. * Girish Abreu MD - 07/26/2012 10:07 AM CDT Images from the original note were not included. HISTORY OF PRESENT ILLNESS Mukul Elkins, a 41 y.o. male presents to the ED with a Chief Complaint of Abdominal Pain HPI Comments: Patient is a 41 year old male with a past medical history significant for ulcerative colitis s/p colon removal presents with 2 week history of pain, nausea vomiting and increasing frequency of loose bowel movements (at baseline, he goes a lot, now is just going quite a bit more). No fevers but has felt hot with intermittent chills. He discussed his symptoms with his GI specialist and has taken about 7-10 days of Cipro which seemingly leveled out his symptoms for a while. However, over the past couple days, it has returned much more significant once again. Achy pain mainly in themiddle of his abdomen. No radiation. Patient is a 41 y.o. male presenting with abdominal pain. The history is provided by the patient and medical records. Abdominal Pain The primary symptoms of the illness include abdominal pain, nausea, vomiting and diarrhea. The primary symptoms of the illness do not include fever, fatigue, shortness of breath, hematemesis, hematochezia or dysuria. The current episode started more than 2 days ago. The onset of the illness was gradual. The problem has been gradually worsening. The patient has had a change in bowel habit. Symptoms associated with the illness do not include chills, anorexia, diaphoresis, heartburn, constipation, urgency, hematuria, frequency or back pain. Significant associated medical issues include inflammatory bowel disease. REVIEW OF SYSTEMS Review of Systems Constitutional: Negative for fever, chills, diaphoresis and fatigue. HENT: Negative for ear pain, congestion, sore throat, trouble swallowing, voice change and sinus pressure. Respiratory: Negative for cough, chest tightness and shortness of breath. Cardiovascular: Negative for chest pain, palpitations and leg swelling. Gastrointestinal: Positive for nausea, vomiting, abdominal pain and diarrhea. Negative for heartburn, constipation, hematochezia, anorexia and hematemesis. Genitourinary: Negative for dysuria, urgency, frequency, hematuria, flank pain and difficulty urinating. Musculoskeletal: Negative for back pain. Skin: Negative for pallor and rash. Neurological: Negative for dizziness, speech difficulty, light-headedness and headaches. Psychiatric/Behavioral: Negative for confusion. The patient is not nervous/anxious. PAST MEDICAL HISTORY REVIEWED Past Medical History Diagnosis Date ??? Ulcerative colitis ??? Unspecified adverse effect of anesthesia violent after 1st surgery ??? Ulcerative colitis ??? Asthma as a child Past Surgical History Procedure Date ??? Hx colectomy 2001 ??? Pr colonoscopy,diagnostic 12/08/2009 COLONOSCOPY performed by LOUISE RIZO at [facility] ??? Pr sigmoidoscopy,diagnostic 02/16/2012 SIGMOIDOSCOPY FLEXIBLE performed by Louise Rizo MD at [facility] ??? Pr endoscopy of bowel pouch 02/16/2012 POUCHOSCOPY performed by Louise Rizo MD at [facility] ??? Pr upper gi endoscopy,diagnosis 02/28/2012 ESOPHAGOGASTRODUODENOSCOPY performed by Lane Ryan MD at [facility] ??? Pr small bowel endoscopy,biopsy 02/28/2012 BOWEL SMALL BIOPSY ENDOSCOPIC performed by Lane Ryan MD at [facility] ??? Pr small bowel endoscopy,past 2nd duod 06/12/2012 SMALL BOWEL ENTEROSCOPY performed by Lane Ryan MD at [facility] ??? Pr dilation rectal stricture w anest 06/12/2012 RECTAL STRICTURE DILATATION performed by Lane Ryan MD at [facility] Family History Problem Relation Age [...] Hyponatremia 02/22/2012 ??? Abdominal pain 02/22/2012 ALLERGIES Remicade HOME MEDICATIONS Patient's Home Medications Current Home Medications AMOXICILLIN-CLAVULANATE (AUGMENTIN) 875-125 MG ORAL TABLET Take 1 Tab by mouth every 12 hours. CIPROFLOXACIN (CIPRO) 500 MG ORAL TABLET Take 1 Tab by mouth every 12 hours. CIPROFLOXACIN (CIPRO) 500 MG ORAL TABLET Take 1 Tab by mouth 2 times daily. HYDROCODONE-ACETAMINOPHEN (NORCO) 5-325 MG ORAL TABLET Take 1 Tab by mouth every 4 hours as needed for Pain, Moderate. OTHER VSL # 3 LABEL: 2 BID PREDNISONE (DELTASONE) 10 MG ORAL TABLET Qd Medications Modified during this Encounter Medications Discontinued during this Encounter PHYSICAL EXAM Initial Vitals BP 07/26/12 0909 136/77 mmHg Pulse 07/26/12 0909 94 Resp 07/26/12 0909 16 Temp 07/26/12 0909 97.6 ??F (36.4 ??C) Temp src 07/26/12 0909 Oral SpO2 07/26/12 09 98 % Physical Exam Nursing note and vitals reviewed. Constitutional: He is oriented to person, place, and time. He appears well- developed and well-nourished. No distress. HENT: Head: Normocephalic and atraumatic. Right Ear: External ear normal. Left Ear: External ear normal. Nose: Nose normal. Mouth/Throat: Oropharynx is clear and moist. Mucous membranes are dry. No oropharyngeal exudate. Eyes: Conjunctivae and EOM are normal. Pupils are equal, round, and reactive to light. Right eye exhibits no discharge. Left eye exhibits no discharge. No scleral icterus. Neck: Normal range of motion. Neck supple. No tracheal deviation present. No thyromegaly present. Cardiovascular: Normal rate, regular rhythm, normal heart sounds and intact distal pulses. Pulmonary/Chest: Effort normal and breath sounds normal. Abdominal: Soft. He exhibits no distension. Bowel sounds are increased. There is no tenderness. There is no rebound. Musculoskeletal: Normal range of motion. He exhibits no edema and no tenderness. Neurological: He is alert and oriented to person, place, and time. No cranial nerve deficit. Coordination normal. Skin: Skin is warm and dry. No rash noted. He is not diaphoretic. No erythema. Psychiatric: He has a normal mood and affect. His behavior is normal. Judgment and thought content normal. DIAGNOSTICS LAB: Results for orders placed during the hospital encounter of 07/26/12 (from the past 24 hour(s)) CBC WITH DIFFERENTIAL Component Value Range WBC 5.6 4.0 - 9.8 (K/uL) RBC 4.83 4.50 - 5.40 (M/uL) HEMOGLOBIN 13.5 (*) 13.6 - 16.5 (g/dL) HEMATOCRIT 42.0 40.0 - 48.0 (%) MCV 87.0 82.0 - 99.0 (fL) MCH 28.0 27.2 - 32.6 (pg) MCHC 32.1 31.5 - 35.5 (%) PLATELETS 303 140 - 350 (K/uL) MPV 9.6 9.3 - 12.4 (fL) RDW 14.5 11.5 - 14.5 (%) RDW-STDEV 45.7 37.1 - 48.7 (fL) NEUTROPHILS 71 (*) 45 - 70 (%) LYMPHOCYTES 12 (*) 16 - 45 (%) MONOCYTES 16 (*) 3 - 13 (%) EOSINOPHILS 1 0 - 7 (%) BASOPHILS 0 0 - 2 (%) NEUTROPHIL ABSOLUTE 3.97 1.90 - 7.00 (K/uL) LYMPHOCYTE ABSOLUTE 0.66 (*) 0.70 - 4.50 (K/uL) MONOCYTE ABSOLUTE 0.90 0.10 - 1.30 (K/uL) EOSINOPHIL ABSOLUTE 0.05 0.00 - 0.70 (K/uL) BASOPHILS ABSOLUTE 0.02 0.00 - 0.20 (K/uL) COMPREHENSIVE METABOLIC PANEL Component Value Range SODIUM 139 135 - 145 (mmol/L) POTASSIUM 3.9 3.5 - 4.9 (mmol/L) CHLORIDE 106 96 - 108 (mmol/L) CO2 20 (*) 22 - 30 (mmol/L) CALCIUM 9.2 8.6 - 10.2 (mg/dL) BUN 10 6 - 20 (mg/dL) CREATININE 0.87 0.67 - 1.17 (mg/dL) GLUCOSE 88 65 - 99 (mg/dL) TOTAL PROTEIN 7.1 6.3 - 8.6 (g/dL) ALBUMIN 4.0 3.4 - 4.8 (g/dL) BILIRUBIN TOTAL 0.3 0.2 - 1.0 (mg/dL) ALKALINE PHOSPHATASE 61 40 - 129 (U/L) AST 16 12 - 38 (U/L) ALT 20 0 - 41 (U/L) GFR, >60 >=60 (mL/min/1.7 sq meter) GFR >60 >=60 (mL/min/1.7 sq meter) C-REACTIVE PROTEIN Component Value Range CRP 2.7 (*) 0.0 - 0.8 (mg/dL) RADIOLOGY: CT ABDOMEN PELVIS W CONTRAST Radiologist Impression: IMPRESSION: The distal small bowel loop is again dilated with mucosal thickening and enhancement. It has unchanged since the previous study of 06/26/2012. CT ABDOMEN PELVIS W CONTRAST (Results Pending) EKG: PROCEDURES Procedures REEVALUATION Pt feels much better after IVF, Zofran MEDICAL DECISION MAKING AND PLAN OF CARE . New Prescriptions for this Encounter ONDANSETRON (ZOFRAN ODT) [address] 1 Tab under tongue every 6 hours as needed for Nausea. RIFAXIMIN (XIFAXAN) 550 MG ORAL TAB Take 1 Tab by mouth 2 times daily for 5 days. Last vitals BP 136/77 Pulse 94 Temp(Src) 97.6 ??F (36.4 ??C) (Oral) Resp 16 Ht 5' 9 (1.753m) Wt 77.111 kg BMI 25.10 kg/m2 SpO2 98% MDM Coding Reviewed: nursing note, vitals and previous chart Interpretation: labs and CT scan Consults: gastroenterology Medications Administered During the ED Stay from 07/26/2012 0908 to 07/26/2012 1216 Date/Time Order Dose Route Action 07/26/2012 0947 ondansetron (ZOFRAN) 4 mg/2 mL injection 4 mg 4 mg IV Given 07/26/2012 0947 sodium chloride 0.9% bolus solution 1,000 mL 1,000 mL IV Given 07/26/2012 1051 ioversol (OPTIRAY 320) 320 mg iodine/mL syringe 125 mL 125 mL IV Given 12:16 PM: I informed the pt of test results, diagnosis of N/V/D, plan for discharge home. Pt instructed to f/u with Dr. Ryan. Plan to Rx Xifaxan, Zofran. Pt agrees with plan and voices their understanding. All questions addressed at this time. Return to ER warnings given. Follow Up: Lane Ryan MD [address] [place] [id number] in 1 week CLINICAL IMPRESSION Encounter Diagnoses Code Name Primary? 787.01 Nausea vomiting and diarrhea ??? 558.9 Inflammatory bowel disease CASE DISCUSSED Dr. Ryan - recommends Xifaxan 550 mg bid and zofran ODT, continue the Cipro PATIENT COUNSELING Diagnostics reviewed and questions answered. Diagnosis, treatment options and plan of care discussed with understanding verbalized. DISPOSITION, EDUCATION AND MEDICATION RECONCILIATION Medications reconciled. See after visit summary for patient education on discharged patients. * Summary-Susie Arzola RN - 07/26/2012 9:[address], pt updated. * Summary-Susie Arzola RN - 07/26/2012 9:40 AM CDT Up to [facility] for diarrhea. * Summary-Susie Arzola RN - 07/26/2012 9:20 AM CDT This 41 yo white male into ER 24 with c/o diarrhea and nausea. States has long hx of ulcerative colitis and has had colon surgery so always has diarrhea, but feels is having increased amt of stools. Denies pain at present. Abd soft, nontender, hyperactive BS. Lungs CTA. MAEW. Denies fevers, blood in stool or rectal pain. Dr Abreu at BS. documented in this encounter Miscellaneous Notes * Patient Instructions - Stl Scanning, Him - 07/27/2012 3:25 AM CDT documented in this encounter Plan of Treatment Upcoming Encounters Date Type Department Care Team (Late st Contact Info) Description 02/13/2025 10:30 AM CDT Office Visit [facility] [place] [address] [place] [address] Kitty Dover, MIRTA [address] [place] [address] [place] [address] documented as of this encounter Procedures Procedure Name Priority Date/Time Associated Diagnosis Comments CT ABDOMEN PELVIS W CONTRAST Stat 07/26/2012 10:50 AM CDT C. DIFFICILE DETECTION Stat 2 10:46 AM CDT STOOL CULTURE W/SHIGA TOXIN Stat 07/26/2012 10:46 AM CDT CBC WITH DIFFERENTIAL Stat 07/26/2012 9:35 AM CDT C-REACTIVE PROTEIN Stat 07/26/2012 9: 35 AM CDT COMPREHENSIVE METABOLIC PANEL Stat 07/26/2012 9:35 AM CDT documented in this encounter Results * CT ABDOMEN PELVIS W CONTRAST (07/26/2012 10:50 AM CDT) Anatomical Region Laterality Modality Abdomen Computed Tomogra phy 07/26/2012 10:2 6 AM CDT Impressions 07/26/2012 11:25 AM CDT IMPRESSION: The distal small bowel loop is again dilated with mucosal thickening and enhancement. It has unchanged since the previous study of 06/26/2012. Narrative 07/26/2012 11:[address] abdomen and pelvis with contrast 07/26/2012. [...] No pelvic mass or lymphadenopathy is seen. Procedure Note Valeria Reddy MD - 07/26/2012 CT abdomen and pelvis with contrast 07/26/2012. [...] No pelvic mass or lymphadenopathy is seen. IMPRESSION IMPRESSION: The distal small bowel loop is again dilated with mucosal thickening and enhancement. It has unchanged since the previous study of 06/26/2012. Girish Abreu MD CT ORDERABLES * CLOSTRIDIUM DIFFICILE TOXIN (07/26/2012 10:46 AM CDT) C DIFF TOXIN PCR RESULT Negative Negative [facility] C DIFF TOXIN PCR SOURCE Stool [facility] Stool specimen (specimen) 07/26/2012 10:46 AM CDT 07/26/2012 11:52 AM CDT Comment:STOOL Girish Abreu MD MICROBIOLOGY - GENER AL ORDERABLES Performing Organization Address [facility] de Phone Number [facility] [id number] [address] [place] [address] * (ABNORMAL) STOOL CULTURE (07/26/2012 10:46 AM CDT) Pathologist [facility] E. COLI SHIGA TOXIN REPORT Unable to perform Shiga toxin testing due to lack of growth in selective testing media.(A) [facility] FINAL MICRO REPORT Only Gram Positive fecal vadim isolated No Salmonella isolated. No Shigella isolated. No Escherichia coli serogroup O157:H7 isolated. No Campylobacter isolated.(A) [facility] Stool specimen (specimen) 07/26/2012 10:46 AM CDT 07/26/2012 11:52 AM CDT Comment:STOOL Girish Abreu MD MICROBIOLOGY - GENER AL ORDERABLES Performing Organization Address [facility] Co de Phone Number [facility] [id number] [address] [place] [address] * (ABNORMAL) C-REACTIVE PROTEIN (07/26/2012 9:35 AM CDT) CRP 2.7(H) 0.0 - 0.8 mg/dL [facility] Blood specimen (specimen) 07/26/2012 9:35 AM CDT 07/26/2012 9:35 AM CDT Girish Abreu MD CHEMISTRY ORDERABLES [facility] CLIA# [id number] [address] [facility] [place] [address] * (ABNORMAL) COMPREHENSIVE METABOLIC PANEL (07/26/2012 9:35 AM CDT) SODIUM 139 135 - 145 mmol/L [facility] POTASSIUM 3.9 3.5 - 4.9 mmol/L [facility] CHLORIDE 106 96 - 108 mmol/L [facility] CO2 20(L) 22 - 30 mmol/L [facility] CALCIUM 9.2 8.6 - 10.2 mg/dL [facility] BUN 10 6 - 20 mg/dL [facility] CREATININE 0.87 0.67 - 1.17 mg/dL [facility] GLUCOSE 88 65 - 99 mg/dL [facility] TOTAL PROTEIN 7.1 6.3 - 8.6 g/dL [facility] ALBUMIN 4.0 3.4 - 4.8 g/dL [facility] BILIRUBIN TOTAL 0.3 0.2 - 1.0 mg/dL [facility] ALKALINE PHOSPHATASE 61 40 - 129 U/L [facility] AST 16 12 - 38 U/L [facility] ALT 20 0 - 41 U/L [facility] GFR, >60 >=60 mL/min/1. [address] [facility] GFR >60 >=60 mL/min/1. 7 sq meter [facility] Comment: GFR is calculated using the IDMS-Traceable Modification of Diet in Renal Disease (MDRD) Study formula and is only valid for patients 18 years or older. Further interpretative information is available in the Laboratory Services Policy Manual on the [facility] Intranet at: [email or web address]/ Blood specimen (specimen) 07/26/2012 9:35 AM CDT 07/26/2012 9:35 AM CDT Girish Abreu MD CHEMISTRY ORDERABLES [facility] CLIA# [id number] [address] [place] [address] * (ABNORMAL) CBC WITH DIFFERENTIAL (07/26/2012 9:35 AM CDT) WBC 5.6 4.0 - 9.8 K/uL [facility] RBC 4.83 4.50 - 5.40 M/uL [facility] HEMOGLOBIN 13.5(L) 13.6 - 16.5 g/dL [facility] HEMATOCRIT 42.0 40.0 - 48.0 % [employer] LABORATORY SERVICES - . [facility] MCV 87.0 82.0 - 99.0 fL [employer] [facility]ORATORY SERVICES - [facility] MCH 28.0 27.2 - 32.[address] [facility] MCHC 32.1 31.5 - 35.5 % [facility] PLATELETS 303 140 - 350 K/uL [facility] MPV 9.6 9.3 - 12.4 fL [employer] LABORATORY SERVICES [facility] RDW 14.5 11.5 - 14.5 % [employer] LABORATORY SERVICES - [facility] RDW-STDEV 45.7 37.1 - 48.7 fL [facility] - . [facility] NEUTROPHILS 71(H) 45 - 70 % [employer] LABORATORY SERVICES - . [facility] LYMPHOCYTES 12(L) 16 - 45 % [employer] [facility]ORATORY SERVICES - . [facility] MONOCYTES 16(H) 3 - 13 % [employer] LABORATORY SERVICES - . [facility] EOSINOPHILS 1 0 - 7 % [employer] LABORATORY SERVICES - . [facility] BASOPHILS 0 0 - 2 % [employer] LABORATORY SERVICES - . [facility] NEUTROPHIL ABSOLUTE 3.97 1.90 - 7.00 K/uL [employer] LABORATORY SERVICES - [facility] LYMPHOCYTE ABSOLUTE 0.66(L) 0.70 - 4.50 K/uL [facility] MONOCYTE ABSOLUTE 0.90 0.10 - 1.30 K/uL [facility] EOSINOPHIL ABSOLUTE 0.05 0.00 - 0.70 K/uL [facility] BASOPHILS ABSOLUTE 0.02 0.00 - 0.20 K/uL [facility] Blood specimen (specimen) 07/26/2012 9:35 AM CDT 07/26/2012 9:35 AM CDT Girish Abreu MD HEMATOLOGY ORDERABLE S [facility] [id number] [address] [facility] [place] [address] documented in this encounter Visit Diagnoses Diagnosis Nausea vomiting and diarrhea Nausea with vomiting Inflammatory bowel disease Other and unspecified noninfectious gastroenteritis and colitis documented in this encounter Administered Medications Inactive Administered Medications - up to 3 most recent administrations Medication Order MAR Action Action Date Dose Rate Site ioversol (OPTIRAY 320) 320 mg iodine/mL syringe 125 mL 125 mL, IV, INTRA-PROCEDURE ONCE, 1 dose, Starting on Rach 07/26/12 at 1051, Until Rach 07/26/12 at 1051 Given 07/26/2012 10:51 AM CDT 125 mL ondansetron (ZOFRAN) 4 mg/2 mL injection 4 mg 4 mg, IV, ONE TIME ONLY, 1 dose, On Rach 07/26/12 at 0930, Routine Given 07/26/2012 9:47 AM CDT 4 mg sodium chloride 0.9% bolus solution 1,000 mL 1,000 mL, IV, ONE TIME ONLY, 1 dose, On Rach 07/26/12 at 0930, at 2,000 mL/hr, Administer over 30 Minutes, Routine Given 07/26/2012 9:47 AM CDT 1,000 mL 2000 mL/hr documented in this encounter Active and Recently Administered Medications Times are shown in CDT. Scheduled Medication Order 07/24/2012 07/25/2012 07/26/2012 ioversol (OPTIRAY 320) 320 mg iodine/mL syringe 125 mL (COMPLETED) 125 mL, IV, INTRA-PROCEDURE ONCE, 1 dose, Starting on Rach 07/26/12 at 1051, Until Rach 07/26/12 at 1051 1051 (Given - Provid er: Manuela Solo, RT) ondansetron (ZOFRAN) 4 mg/2 mL injection 4 mg (COMPLETED) 4 mg, IV, ONE TIME ONLY, 1 dose, On Rach 07/26/12 at 0930, Routine 0947 (Given - Provid er: Susie Jackson, JIE - Comment: med ed done) sodium chloride 0.9% bolus solution 1,000 mL (COMPLETED) 1,000 mL, IV, ONE TIME ONLY, 1 dose, On Rach 07/26/12 at 0930, at 2,000 mL/hr, Administer over 30 Minutes, Routine 0947 (Given - Provid er: Susie Jackson RN) documented in this encounter Care Teams Network Support Administrator Relationship Specialty Start Date End Date Martin Kelley MD PCP - General Internal Medicine 02/16/12 08/14/17 documented as of this encounter
--- OUTSIDE RECORDS SUMMARY | 2024-10-24 05:34 | XMS_ITS | Encounter Summary ---
Author Organization [facility] Address [address] [place] [address] Care Team Providers Care Encephalographer Name Role Phone Martin Kelley MD Primary Care Provider [phone] Reason for Visit * Reason Onset Date Comments New Prescription Request 08/21/2012 Encounter Details Date Type Department Care Team (Late st Contact Info) Description 08/21/2012 Telephone [facility] [address] [facility] [address] [place] [address] Lane Ryan MD NO ADDRESS [...] Telephone Encounter - Lane Ryan MD - 08/21/2012 5:27 PM CDT Ordered humira * Telephone Encounter - Kadie Nye - 08/21/2012 3:36 PM CDT Please put in order for Humira starter package and maintenance. documented in this encounter Plan of Treatment Upcoming Encounters Date Type Department Care Team (Late st Contact Info) Description 02/13/2025 10:30 AM CDT Office Visit [facility] IBD [facility] Gastro[facility] [place] [address] [place] [address] Kitty Dover ANP [address] [place] [address] [place] [address] documented as of this encounter Visit Diagnoses Diagnosis IBD (inflammatory bowel disease)- Primary Other and unspecified noninfectious gastroenteritis and colitis documented in this encounter Care Teams Encephalographer Relationship Specialty Start Date End Date Martin Kelley MD PCP - General Internal Medicine 02/16/12 08/14/17 documented as of this encounter
--- OUTSIDE RECORDS SUMMARY | 2024-10-24 05:35 | XMS_ITS | Encounter Summary ---
Author Organization [facility] Address [address] [place] [address] Care Team Providers Care Carpenter Repairer Name Role Phone Jasiel Freeman MD Primary Care Provider [phone] Encounter Details Date Type Department Care Team (Late st Contact Info) Description 06/19/2002 Outpatient Historical [facility] Willian Rizo MD NO ADDRESS ON FILE ATTEN TO ILEOSTOMY (Primary Dx) Social History Tobacco Use Types [...] [facility] [place] [address] [facility] [address] [place] [address] Kitty Dover ANP [address] [facility] [address] [place] [address] documented as of this encounter Visit Diagnoses Diagnosis Attention to ileostomy- Primary documented in this encounter Additional Health Concerns Infection Onset Date Last Indicated Resolved Time R/O C. diff 08/11/2022 08/10/2022 08/11/2022 2:45 PM CDT R/O C. diff 12/11/2022 12/09/2022 12/11/2022 1:26 PM SENIOR PRODUCTION SUPERVISOR R/O C. diff 10/17/2024 10/17/2024 10/17/2024 6:55 PM SENIOR PRODUCTION SUPERVISOR documented as of this encounter Care Teams Carpenter Repairer Relationship Specialty Start Date End Date Jasiel Freeman MD [address] [place] [phone] PCP - General Family Practice 08/15/17 documented as of this encounter
--- OUTSIDE RECORDS SUMMARY | 2024-10-24 05:35 | XMS_ITS | Encounter Summary ---
Author Organization [facility] Address [address] [place] [address] Care Team Providers Care Nursing Surgical Services Director Name Role Phone Jasiel Freeman MD Primary Care Provider [phone] Encounter Details Date Type Department Care Team (Late st Contact Info) Description 02/27/2003 Outpatient Historical [facility] GI [facility] Willian Rizo MD NO ADDRESS ON FILE COMPLIC-DIGESTIVE SYSTEM (Primary Dx) Social History Tobacco Use Types [...] Visit [facility] IBD [facility]ology [facility] [place] [address] [facility] [address] [place] [address] Kitty Dover ANP [address] [facility] [address] [place] [address] documented as of this encounter Visit Diagnoses Diagnosis Digestive system complication- Primary documented in this encounter Additional Health Concerns Infection Onset Date Last Indicated Resolved Time R/O C. diff 08/11/2022 08/10/2022 08/11/2022 2:45 PM CDT R/O C. diff 12/11/2022 12/09/2022 12/11/2022 1:26 PM MRP CONTROLLER R/O C. diff 10/17/2024 10/17/2024 10/17/2024 6:55 PM MRP CONTROLLER documented as of this encounter Care Teams Nursing Surgical Services Director Relationship Specialty Start Date End Date Jasiel Freeman MD [address] [place] [phone] PCP - General Family Practice 08/15/17 documented as of this encounter
--- OUTSIDE RECORDS SUMMARY | 2024-10-24 05:35 | XMS_ITS | Encounter Summary ---
Author Organization [facility] Address [address] [place] [address] Care Team Providers Care Video Software Engineer Name Role Phone Jasiel Freeman MD Primary Care Provider Encounter Details Date Type Department Care Team (Late st Contact Info) Description 06/26/2006 Outpatient Historical [facility] Gertrude Yost MD NO ADDRESS ON FILE Er, Authorized P NO ADDRESS ON FILE Urinary Tract Infection, Site not Specified (Primary Dx) Social History Tobacco Use Types [...] Visit [facility] IBD and Gastroenterology [facility] [place] [address] [facility] [address] [place] [address] Kitty Dover, MIRTA [address] [facility] [address] [place] [address] documented as of this encounter Procedures Procedure Name Priority Date/Time Associated Diagnosis Comments CBC WITH DIFFERENTIAL Routine 06/26/2006 8:50 PM CDT CBC WITH DIFFERENTIAL Routine 06/26/2006 8:50 PM CDT C-REACTIVE PROTEIN Routine 06/26/2006 8: 50 PM CDT documented in this encounter Results * (ABNORMAL) CBC WITH DIFFERENTIAL (06/26/2006 8:50 PM CDT) NEUTROPHILS 76(H) 45 - 70 % INTERFAC E SYSTEM LYMPHOCYTES 10(L) 16 - 45 % INTERFAC E SYSTEM MONOCYTES 14(H) 3 - 13 % INTERFACE SYSTEM EOSINOPHILS 0 0 - 7 % INTERFAC E SYSTEM BASOPHILS 0 0 - 2 % INTERFACE SYSTEM NEUTROPHIL ABSOLUTE 5.46 1.90 - 7.00 K/uL INTERFACE SYSTEM LYMPHOCYTE ABSOLUTE 0.68(L) 0.70 - 4.50 K/uL INTERFACE SYSTEM MONOCYTE ABSOLUTE 1.00 0.10 - 1.30 K/uL INTERFACE SYSTEM EOSINOPHIL ABSOLUTE 0.03 0.00 - 0.70 K/uL INTERFACE SYSTEM BASOPHILS ABSOLUTE 0.01 0.00 - 0.20 K/uL INTERFACE SYSTEM 06/26/2006 8:50 PM CDT Gertrude Yost MD HEMATOLOGY ORDERABLE S INTERFACE SYSTEM Refer to clinic/hospital department * (ABNORMAL) CBC WITH DIFFERENTIAL (06/26/2006 8:50 PM CDT) WBC 7.2 4.0 - 9.8 K/uL INTERFACE SYSTEM RBC 5.25 4.50 - 5.40 M/uL INTERFACE SYSTEM HEMOGLOBIN 14.9 13.6 - 16.5 g/dL INTERFACE SYSTEM HEMATOCRIT 43.0 40.0 - 48.0 % INTERFACE SYSTEM MCV 81.9(L) 82.0 - 99.0 fL INTERFACE SYSTEM MCH 28.4 27.2 - 32.6 pg INTERFACE SYSTEM MCHC 34.7 31.5 - 35.5 % INTERFACE SYSTEM RDW 12.6 11.5 - 14.5 % INTERFACE SYSTEM RDW-STDEV 37.9 37.1 - 48.7 fL INTERFACE SYSTEM PLATELETS 462(H) 140 - 350 K/uL INTERFACE SYSTEM MPV 9.5 9.3 - 12.4 fL INTERFACE SYSTEM 06/26/2006 8:50 PM CDT Gertrude Yost MD HEMATOLOGY ORDERABLE S Performing Organization Address [facility] Phone Number INTERFACE SYSTEM Refer to clinic/hospital department * (ABNORMAL) C-REACTIVE PROTEIN (06/26/2006 8:50 PM CDT) CRP 15.9(H) 0.0 - 0.8 mg/dL INTERFACE SYSTEM 06/26/2006 8:50 PM CDT Gertrude Yost MD CHEMISTRY ORDERABLES Performing Organization Address [facility] [facility] [place] Phone Number INTERFACE SYSTEM Refer to clinic/hospital department documented in this encounter Visit Diagnoses Diagnosis Urinary tract infection, site not specified- Primary documented in this encounter Additional Health Concerns Infection Onset Date Last Indicated Resolved Time R/O C. diff 08/11/2022 08/10/2022 08/11/2022 2:45 PM CDT R/O C. diff 12/11/2022 12/09/2022 12/11/2022 1:26 PM SOLOIST DANCER R/O C. diff 10/17/2024 10/17/2024 10/17/2024 6:55 PM SOLOIST DANCER documented as of this encounter Care Teams Video Software Engineer Relationship Specialty Start Date End Date Jasiel Freeman MD [address] [place] [phone] PCP - General Family Practice 08/15/17 documented as of this encounter
--- OUTSIDE RECORDS SUMMARY | 2024-10-24 05:35 | XMS_ITS | Encounter Summary ---
Author Organization [facility] Address [address] [place] [address] Care Team Providers Care Application Support Lead Name Role Phone Jasiel Freeman MD Primary Care Provider [phone] Encounter Details Date Type Department Care Team (Latest Contact Info) Description 07/16/2003 Inpatient Historical HIS PATIENT IN A BED Willian Rizo MD NO ADDRESS ON FILE INCISIONAL HERNIA (Primary Dx) Social History Tobacco Use Types [...] Description 02/13/2025 10:30 AM CDT Office Visit [facility] IBD and Gastroenterology [facility] [place] [address] [facility] [address] [place] [address] Kitty Dover ANP [address] [facility] [address] [place] [address] documented as of this encounter Visit Diagnoses Diagnosis Incisional hernia without mention of obstruction or gangrene- Primary documented in this encounter Additional Health Concerns Infection Onset Date Last Indicated Resolved Time R/O C. diff 08/11/2022 08/10/2022 08/11/2022 2:45 PM CDT R/O C. diff 12/11/2022 12/09/2022 12/11/2022 1:26 PM WASTE HAND R/O C. diff 10/17/2024 10/17/2024 10/17/2024 6:55 PM WASTE HAND documented as of this encounter Care Teams Application Support Lead Relationship Specialty Start Date End Date Jasiel Freeman MD [address] [place] [phone] PCP - General Family Practice 08/15/17 documented as of this encounter
--- OUTSIDE RECORDS SUMMARY | 2024-10-24 05:35 | XMS_ITS | Encounter Summary ---
Author Organization [facility] Address [address] [place] [address] Care Team Providers Care Authorization Representative Name Role Phone Martin Kelley MD Primary Care Provider [phone] Reason for Visit * Auth/Cert (Routine) - Closed Specialty Diagnoses / Procedures Referred By Contac t Referred To Contact Gastroenterology Procedures COLONOSCOPY [facility] [address] [place] [address] Referral ID Status Reason Start Date Expiration Date Visits Re quested Visits Authorized [id number] Closed 02/02/2012 02/01/2013 1 1 Encounter Details Date Type Department Care Team (Latest Contact Info) Description 02/16/2012 6:05 AM CDT - 02/16/2012 11:35 PM CDT Hospital Encounter [facility] [address] [place] [address] Louise Rizo MD NO ADDRESS ON FILE Discharge Disposition: Home or Self Care Social History Tobacco Use Types Packs/Day Years Used Date Smoking Tobacco: Every Day Cigarettes 0.5 10 Comments:off & on Alcohol [...] Sign Reading Time Taken Comments Blood Pressure 108/71 02/16/2012 7:47 AM CDT Pulse 77 02/16/2012 7:47 AM CDT Temperature 36.6 ??C (97.8 ??F) 02/16/2012 7:36 AM CD T Respiratory Rate 18 02/16/2012 7:47 AM CDT Oxygen Saturation 97% 02/16/2012 7:47 AM CDT Inhaled Oxygen Concentration - - Weight 77.1 kg (170 lb) 02/16/2012 6:18 AM CDT Height 175.3 cm (5' 9 ) 02/16/2012 6:18 AM CDT Body Mass Index 25.1 02/16/2012 6:18 AM CDT documented in this encounter Discharge Instructions * Discharge Instructions* Lizy Thakkar RN - 02/16/2012 7:43 AM CDT If you should experience: Severe [...] call the physician who prescribed the medication. I have received a copy of the Discharge instructions provided with the After Visit Summary, and understand the plan of care. Patient or Responsible Democrat Signature Date/Time RN Signature Date/Time documented in this encounter Medications at Time of Discharge Medication Sig Dispensed Refills Start Date End Date metroNIDAZOLE (FLAGYL) 500 mg Oral tablet Take 500 mg by mouth 3 times daily. 03/03/2012 mesalamine (ASACOL) 400 mg Oral TbEC Take 400 mg by mouth 2 times daily. 03/03/2012 documented as of this encounter Procedure Notes * Louise Rizo MD - 02/16/2012 8:47 AM CDTAssociated Order(s): GI REPORT [place], [place] [address] Gastroenterology CSN: [id number] DATE OF SERVICE: 02/16/2012 PROCEDURE Flexible endoscopy of pelvic ileal J pouch with multiple biopsies, balloon dilatation of ileal pouch anal anastomosis. MEDICATIONS Propofol per Anesthesia. INSTRUMENT Olympus PCF-H180AL video colonoscope. INDICATIONS The patient is a 41-year-old man who underwent a restorative proctocolectomy for all ulcerative colitis in the spring. A temporary loop ileostomy was subsequently closed in June that year. He has been followed since that time on an office basis with periodic endoscopy. In September 2002, he was found to have any tight cicatrix and in October 2002 underwent [...] a day for suppression in the past. He saw me about 10 days ago stating that he was beginning to develop crampy abdominal pain, difficulty evacuating and sense of pressure in the pelvic area. His stools were little looser. His symptomswere consistent with what he has experienced with the development of early pouchitis in the past. He was started on Flagyl 500 mg three times a day. His symptoms have subsided somewhat. He has a known anastomotic stricture, which I cannot dilate on an office basis and he is to undergoan endoscopic procedure to assess the mucosa of the pouch and to dilate the sphincter. PAST MEDICAL HISTORY, HOSPITALIZATIONS, OPERATIONS, AND INJURIES As above only. ALLERGIES None stated. CURRENT MEDICATIONS Flagyl 500 mg three times a day. REVIEW OF SYSTEMS Noncontributory except as above. GENERAL: The patient is a tall, pleasant, fully alert and oriented gentleman who outwardly appears to be in vigorous good health. LUNGS: Clear. HEART: Rhythm sinus. ABDOMEN: Soft and flat. No palpable organs or masses. There is a midline incision in the right lower quadrant, ileostomy closure incision, both well healed. RECTAL: Examination reveals a very tight ileal pouch anal anastomosis. WHAT WAS DONE The patient was brought to the GI lab, sedated with propofol, and initially dilated the anastomoticstricture enough with my finger that we could introduce a pediatric colonoscope. The stricture is rather high and I could only get the tip of my index finger through it. Assessing the pouch, there appears to be a approximately grade II to III pouchitis with diffuse mucosal inflammation. There is no richie ulceration. The pouch was advanced into the proximal small bowel above the pouch and there appears to be inflammatory change in the small bowel above the pouch. Multiple biopsies were taken from the pouch for a pathologic review. Withdrawing the scope into the distal pouch, a 20-mm dilating balloon was introduced and maneuveredinto the position and the anastomosis, which was dilated hydraulically to the full 20-mm approximately 3 to 4 times. We got to the point where the balloon could be pulled easily through the stricture. The procedure was discontinued. At this point, a digital examination of the anastomosis showed it to be well dilated and I could get my finger well up through the anastomotic stricture at this point. The patient was awakened and returned to recovery. DIAGNOSTIC IMPRESSION Pouchitis. Ileal pouch anal anastomosis stricture. PLR:MEDQ DID: [id number] Dictated by: Louise Rizo MD cc: Martin Corral MD documented in this encounter OR Notes * OR Anesthesia - Stl Scanning, [facility] - 02/18/2012 4:59 PM CDT * OR Anesthesia - Dagoberto Salcido AA-C - 02/16/2012 7:51 AM CDT Phase II Postanesthesia Evaluation Including [facility] Modified Rebekah Score Patient seen and evaluated: RESPIRATORY FUNCTION: Respiration: able to breath and cough freely (02/16/12748) [2=able to breathe and cough freely, 1=dyspnea, limited breathing or tachypnea, 0=apnea or mechanicventilator] O2 Saturation: able to maintain O2 saturation greater than 92% on room air (02/16/12748) [2=able to maintain O2 saturation greater than 92% on room air, 1=needs O2 inhalation to maintain O2 saturation greater than 90%, 0=O2 saturation less than 90% even with O2 supplement] Resp: 18 (02/16/12746)SpO2: 97 % (02/16/12746) CARDIOVASCULAR FUNCTION: BP: 108/71 mmHg (02/16/12746) Circulation: BP within 20% of preanesthetic level (02/16/12748) [2=BP within 20% of preanesthetic level, 1=BP within 20-49% of preanesthetic level, 0=BP within 50%of preanesthetic level] MENTAL STATUS, NEURO, ACTIVITY: Consciousness: fully awake (02/16/12748) [2=fully awake, 1=arousable on calling, 0=not responding] Activity: able to move 4 extremities voluntarily or on command (02/16/12748) [2=able to move 4 extremities voluntarily or on command, 1=able to move 2 extremities voluntarily or on command, 0=unable to move extremities voluntarily or on command] Ambulation: able to stand up and walk straight, on ordered bedrest, or performing at patient's prior level of function (02/16/12748) [2=able to stand up and walk straight, on ordered bedrest, or performing at patient's prior level of function, 1=vertigo when erect, 0=dizziness when supine] TEMPERATURE: Temp: 97.8 ??F (36.6 ??C) (02/16/12735) PAIN: Presence of Pain: denies pain/discomfort (02/16/12740) Pain: pain free (02/16/12748) [2=pain free, 1=pain handled by oral medication, 0=pain requiring parenteral medication] NAUSEA AND VOMITING: Fasting/Feeding: able to drink fluids, ice chips or NPO (02/16/12748) [2=able to drink fluids, ice chips or NPO, 1=nauseated, 0=nausea and vomiting] POSTOPERATIVE HYDRATION: Intake/Output Summary (Last 24 hours) at 02/16/12751 Last data filed at 02/16/12748 Gross per 24 hour Intake 120 ml Output 0 ml Net 120 ml Urine Output: has voided, adequate urine output per device, or not applicable (02/16/12748) [2=has voided, adequate urine output per device, or not applicable, 1=unable to void but comfortable, 0=unable to void and uncomfortable] WOUND: Dressing: dry and clean or not applicable (02/16/12748) [2=dry and clean or not aplicable, 1=wet, marked and not increasing, 0=growing area of wetness] [facility] Modified Rebekah Score: Score: 20 (02/16/12748) COMMENTS: No apparent Anesthesia related complications GEOFFREY Rodriguez 02/16/2012 7:52 AM * OR Anesthesia - Susan Singletary MD - 02/16/2012 6:42 AM CDT GI Lab Pre-Anesthesia Evaluation - Long Form 02/16/2012 6:43 AM Name: Mukul Elkins Age: 41 y.o. Sex: male CSN: [id number] Procedure: Procedure(s): COLONOSCOPY Surgeons/Assistants: Surgeon(s) and Role: * Louise Rizo MD - Primary No Known Allergies Prescriptions prior to admission Medication Sig Dispense Refill ??? metroNIDAZOLE (FLAGYL) 500 mg Oral tablet Take 500 mg by mouth 3 times daily. ??? mesalamine (ASACOL) 400 mg Oral TbEC Take 400 mg by mouth 2 times daily. Current Facility-Administered Medications Medication Dose Route Frequency Provider Last Rate Last Dose ??? lactated ringers solution IV Pre-Proc Continuous oLuise Rizo MD 125 mL/hr at 02/16/12 0630 There are no active problems to display for this patient. Past Medical History Diagnosis Date ??? Ulcerative colitis ??? Unspecified adverse effect of anesthesia violent after 1st surgery ??? Ulcerative colitis Past Surgical History Procedure Date ??? Hx colectomy 2001 ??? Pr colonoscopy,diagnostic 12/08/2009 COLONOSCOPY performed by LOUISE RIZO at [facility] History Substance Use Topics ??? Smoking status: Current Everyday Smoker -- 0.5 packs/day for 10 years Types: Cigarettes ??? Smokeless tobacco: Not on file Comment: off & on ??? Alcohol Use: No Family History Problem Relation Age of Onset ??? Heart Disease Father ??? Hypertension Mother ??? Healthy Sister ??? Healthy Brother Previous Anesthesia Problems/Concerns: No anesthesia problems/complications Review of Systems Cardiovascular: negative Respiratory: remote hx cigarettes quit tweo months ago Gastroenterology: UC s/p colectomy. Has had this dialtation several times in the past Bowel Prep:Yes PHYSICAL EXAM BP 121/69 Pulse 80 Temp(Src) 98.6 ??F (37 ??C) (Temporal) Resp 16 Ht 5' 9 (1.753 m) Wt 170 lb (77.111 kg) BMI 25.10 kg/m2 SpO2 95% Weight: Weight: 170 lb (77.111 kg) (02/16/12 0618) Height: Ht Readings from Last 1 Encounters: 02/16/12 5' 9 (1.753 m) BMI: Body mass index is 25.10 kg/(m^2). Airway: normal range of motion: Airway Class: I (soft palate, uvula, fauces, tonsillar pillars visible); None Lungs: clear to auscultation bilaterally, normal respiratory effort Heart: regular rate and rhythm, S1, S2 normal, no murmur, click, rub or gallop Neuro: alert, oriented x 3, no defects noted in general exam. Vascular Access: Peripheral Line LABS Lab Results Component Value Date WBC 7.2 06/26/2006 HEMOGLOBIN 14.9 06/26/2006 HEMATOCRIT 43.0 06/26/2006 PLATELETS 462* 06/26/2006 MCV 81.9* 06/26/2006 No results found for this basename: NA, K, CL, CO2, CA, BUN, CREAT, GLUCOSE, ANIONGAP, BCRATIO No results found for this basename: INR, PT, PROTIMEPOC No results found for this basename: HCGURPOC, HCGQUALUR, HCGQUAL, HCGQUANT, HCGINTACT No results found for this basename: glucpoc EKG: EKG not indicated today Other Studies/Considerations: [...] Questions have been solicited and answered. Yes Susan Singletary MD documented in this encounter Miscellaneous Notes * Scanned Form - Stl Scanning, [facility] - 02/18/2012 4:59 PM CDT Electronically signed by [facility] Suede Brusher Incoming at 02/18/2012 4:59 PM CDT * Scanned Form - Stl Scanning, [facility] - 02/18/2012 4:59 PM CDT Electronically signed by [facility] Sued[facility] Brusher Incoming at 02/18/2012 4:59 PM CDT * Patient Instructions - Stl Scanning, [facility] - 02/18/2012 4:59 PM CDT Electronically signed by [employer] [facility] Suede Brusher Incoming at 02/18/2012 4:59 PM CDT documented in this encounter Plan of Treatment Upcoming Encounters Date Type Department Care Team (Late st Contact Info) Description 02/13/2025 10:30 AM CDT Office Visit [facility] [place] [address] [facility] [address] [place] [address] Kitty Dover, ANP [address] [place] [address] documented as of this encounter Procedures Procedure Name Priority Date/Time Associated Diagnosis Comments POUCHOSCOPY 02/16/2012 3:00 PM CDT SIGMOIDOSCOPY FLEXIBLE 2 3:00 PM CDT GI REPORT 02/16/2012 11:17 AM CDT PATHOLOGY Routine 02/16/2012 10:17 AM CDT documented in this encounter Results * GI REPORT (02/16/2012 11:17 AM CDT) Narrative Transcriptions Louise Rizo MD - 02/16/2012 8:47 AM CDT [place], [place] [address] Gastroenterology CSN: [id number] DATE OF SERVICE: 02/16/2012 PROCEDURE Flexible endoscopy of pelvic ileal J pouch with multiple biopsies, balloondilatation of ileal pouch anal anastomosis. MEDICATIONS Propofol per Anesthesia. INSTRUMENT Olympus PCF-H180AL video colonoscope. INDICATIONS The patient is a 41-year-old man who underwent a restorativeproctocolectomy for all ulcerative colitis in the spring. Atemporary loop ileostomy was subsequently closed in June that year.He has been followed since that time on an office basis with periodicendoscopy. In September 2002, he was found to have any tight cicatrix and in October2002 underwent a balloon dilatation of the anastomosis. He has undergoneperiodic dilatation on an office basis, but this became increasinglyuncomfortable for him to the point that he stopped making officeappointments. He has had two episodes of pouchitis in the past treatedwith Flagyl. He has been on Asacol 400 mg twice a day for suppression inthe past. He saw me about 10 days ago stating that he was beginning to developcrampy abdominal pain, difficulty evacuating and sense of pressure in thepelvic area. His stools were little looser. His symptoms were consistentwith what he has experienced with the development of early pouchitis inthe past. He was started on Flagyl 500 mg three times a day. His symptoms havesubsided somewhat. He has a known anastomotic stricture, which I cannot dilate on an officebasis and he is to undergo an endoscopic procedure to assess the mucosa ofthe pouch and to dilate the sphincter. PAST MEDICAL HISTORY, HOSPITALIZATIONS, OPERATIONS, AND INJURIES As above only. ALLERGIES None stated. CURRENT MEDICATIONS Flagyl 500 mg three times a day. REVIEW OF SYSTEMS Noncontributory except as above. GENERAL: The patient is a tall, pleasant, fully alert and orientedgentleman who outwardly appears to be in vigorous good health. LUNGS: Clear. HEART: Rhythm sinus. ABDOMEN: Soft and flat. No palpable organs or masses. There is amidline incision in the right lower quadrant, ileostomy closure incision,both well healed. RECTAL: Examination reveals a very tight ileal pouch anal anastomosis. WHAT WAS DONE The patient was brought to the GI lab, sedated with propofol, andinitially dilated the anastomotic stricture enough with my finger that wecould introduce a pediatric colonoscope. The stricture is rather high Marilou could only get the tip of my index finger through it. Assessing the pouch, there appears to be a approximately grade II to IIIpouchitis with diffuse mucosal inflammation. There is no frankulceration. The pouch was advanced into the proximal small bowel abovethe pouch and there appears to be inflammatory change in the small bowelabove the pouch. Multiple biopsies were taken from the pouch for a pathologic review. Withdrawing the scope into the distal pouch, a 20-mm dilating balloon wasintroduced and maneuvered into the position and the anastomosis, which wasdilated hydraulically to the full 20-mm approximately 3 to 4 times. Wegot to the point where the balloon could be pulled easily through thestricture. The procedure was discontinued. At this point, a digital examination of the anastomosis showed it to bewell dilated and I could get my finger well up through the anastomoticstricture at this point. The patient was awakened and returned torecovery. DIAGNOSTIC IMPRESSION Pouchitis. Ileal pouch anal anastomosis stricture. PLR:MEDQ DID:[id number] Dictated by: Louise Rizo MD cc: Martin Corral MD Louise Rizo MD GI PROCEDURE ORDERAB LES * PATHOLOGY (02/16/2012 10:17 AM CDT) SURGICAL PATHOLOGY ?[facility] ?[address] ? [place], [place] ??[address] ? Patient: ??MUKUL ELKINS S ? : ??1970 ? Procedure Date: ??02/16/2012 ? Accession Date: ??02/16/2012 ? Case No: ??[id number] ? Ordering Dr: ??LOUISE RIZO ? Case type SW is performed by [facility], [address] [place] [address], ? [place], [place] ??[address]; all other case types are performed by [facility] ? [facility], [address], [place], [place] ??[address] ?SURGICAL PATHOLOGY & NON-GYNECOLOGIC CYTOPATHOLOGY REPORT ? DIAGNOSIS ? SMALL INTESTINE, ILEAL POUCH, BIOPSIES: ? - ACTIVE ILEITIS (POUCHITIS) WITH MODERATE ACTIVITY. ? Specimen Description: ? Ileal pouch biopsy. ? Operative Procedure: ? Colonoscopy. ? Patient Information/Histo ry/Diagnosis: ? 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 pouchitis. ? Gross: ? Received in one container labeled Mukul Elkins., colon ileal pouch ? biopsy are eleven pieces of newman tissue ranging from 0.1 cm to 0.3 cm in ? greatest dimension. All are submitted in block A1. ? [facility]/NUNU 02.16.2012 03:51 pm ? Microscopic: ? The slides are labeled Mukul Elkins and [id number]. ? The biopsies from the ileal pouch consist of pieces of small intestinal ? mucosa showing widespread moderate villous blunting and shortening. No ? definite ulcers are identified. There is a fairly widespread but patchy and ? variable mild to moderate infiltrate of neutrophils within the lamina ? propria and crypts. The number of chronic inflammatory cells in the lamina ? propria is mildly increased. No granulomas are identified. No definite ? pyloric metaplasia is identified. There are areas of reactive changes ? within the crypts, but the epithelium matures towards the surface. No ? dysplasia is identified. ? JCL/PJS 02.17.2012 03:31 pm ? Staging Form: ? No ? ELECTRONIC SIGNATURE FOR KATIE MICHELE M.D.- 02/17/12 07:26 pm [facility] 02/16/2012 10:1 7 AM CDT Louise Rizo MD PATHOLOGY/CYTOLOGY O RDERABLES Performing Organization Address City/State/[facility] Co de Phone Number [facility]# [id number] [address] [facility] [place] [address] documented in this encounter Visit Diagnoses Not on filedocumented in this encounter Administered Medications Inactive Administered Medications - up to 3 most recent administrations Medication Order MAR Action Action Date Dose Rate Site lactated ringers solution IV, at 125 mL/hr, PRE-PROCEDURE CONTINUOUS, Starting on Rach 02/16/12 at 0630, Until Mon02/17/12 at 0201, Routine New Bag 02/16/2012 6:30 AM CDT 125 mL /hr documented in this encounter Active and Recently Administered Medications Times are shown in CDT. Continuous Medication Order 02/14/2012 02/15/2012 02/16/2012 lactated ringers solution (CANCELED) IV, at 125 mL/hr, PRE-PROCEDURE CONTINUOUS, Starting on Rach 02/16/12 at 0630, Until 02/17/12 at 0201, Routine 0630 (New Bag - Prov ider: Nia Friend, JIE)[id number] (Stopped - Provider: Lizy Thakkar RN) documented in this encounter Care Teams Authorization Representative Relationship Specialty Start Date End Date Martin Kelley MD PCP - General Internal Medicine 02/16/12 08/14/17 documented as of this encounter
--- OUTSIDE RECORDS SUMMARY | 2024-10-24 05:35 | XMS_ITS | Encounter Summary ---
Author Organization [facility] Address [address] [place] [address] Care Team Providers Care Front End Loader Driver Name Role Phone Jasiel Freeman MD Primary Care Provider Encounter Details Date Type Department Care Team (Latest Contact Info) Description 01/24/2002 Inpatient Historical HIS PATIENT IN A BED Willian Rizo MD NO ADDRESS ON FILE ULCERATIVE COLITIS NOS (Primary Dx) Social History Tobacco Use Types [...] 02/13/2025 10:30 AM CDT Office Visit [facility] [place] [address] [facility] [address] [place] [address] Kitty Dover ANP [address] [facility] [address] [place] [address] documented as of this encounter Visit Diagnoses Diagnosis Ulcerative colitis, unspecified- Primary documented in this encounter Additional Health Concerns Infection Onset Date Last Indicated Resolved Time R/O C. diff 08/11/2022 08/10/2022 08/11/2022 2:45 PM CDT R/O C. diff 12/11/2022 12/09/2022 12/11/2022 1:26 PM DIET ASSISTANT R/O C. diff 10/17/2024 10/17/2024 10/17/2024 6:55 PM DIET ASSISTANT documented as of this encounter Care Teams Front End Loader Driver Relationship Specialty Start Date End Date Jasiel Freeman MD [address] [place] [phone] PCP - General Family Practice 08/15/17 documented as of this encounter
--- OUTSIDE RECORDS SUMMARY | 2024-10-24 05:35 | XMS_ITS | Encounter Summary ---
Author Organization [facility] Address [address] [place] [address] Care Team Providers Care Pail Bailer Name Role Phone Jasiel Freeman MD Primary Care Provider [phone] Encounter Details Date Type Department Care Team (Latest Contact Info) Description 07/01/2002 Inpatient Historical [facility] Willian Rizo MD NO ADDRESS ON FILE [...] [facility] [place] [address] [place] [address] Kitty Dover ANP [address] [facility] [address] [place] [address] documented as of this encounter Visit Diagnoses Diagnosis Attention to ileostomy- Primary documented in this encounter Additional Health Concerns Infection Onset Date Last Indicated Resolved Time R/O C. diff 08/11/2022 08/10/2022 08/11/2022 2:45 PM CDT R/O C. diff 12/11/2022 12/09/2022 12/11/2022 1:26 PM TALENT ACQUISITION LEAD R/O C. diff 10/17/2024 10/17/2024 10/17/2024 6:55 PM TALENT ACQUISITION LEAD documented as of this encounter Care Teams Pail Bailer Relationship Specialty Start Date End Date Jasiel Freeman MD [address] [place] [address] PCP - General Family Practice 08/15/17 documented as of this encounter
--- OUTSIDE RECORDS SUMMARY | 2024-10-24 05:35 | XMS_ITS | Encounter Summary ---
Author Organization [facility] Address [address] [place] [address] Care Team Providers Care Dynamics Ax Technical Architect Name Role Phone Martin Kelley MD Primary Care Provider [phone] Reason for Visit * Auth/Cert (Routine) - Closed Specialty Diagnoses / Procedures Referred By Contac t Referred To Contact Gastroenterology Procedures COLONOSCOPY [facility] [address] [place] [address] Referral ID Status Reason Start Date Expiration Date Visits Re quested Visits Authorized [id number] Closed 02/02/2012 02/01/2013 1 1 Encounter Details Date Type Department Care Team (Late st Contact Info) Description 02/16/2012 7:00 AM CDT - 02/16/2012 7:40 AM CDT [facility] [place] [address] [place] [address] Louise Rizo MD NO ADDRESS ON FILE SIGMOIDOSCOPY FLEXIBLE Surgery Details Date/Time Status Location OR Service Patient Class Case Class Case Type Trauma Case? 02/16/2012 7:00 AM Posted [facility] GI 01 Gastroenterology Outpatient No Panel 1 Procedure LRB Anes Op Region Wound Class Comments SIGMOIDOSCOPY FLEXIBLE N/A Moderate Sedation Abdomen Clean Contaminated-II POUCHOSCOPY Surgeon Surgeon Role Service Panel Louise Rizo MD Primary Gastroenterology 1 documented in this [...] Sign Reading Time Taken Comments Blood Pressure 95/68 02/16/2012 7:36 AM CDT Pulse 82 02/16/2012 7:36 AM CDT Temperature 36.6 ??C (97.8 ??F) 02/16/2012 7:36 AM CD T Respiratory Rate 16 02/16/2012 6:22 AM CDT Oxygen Saturation 94% 02/16/2012 7:36 AM CDT Inhaled Oxygen Concentration - - [...] the plan of care. Patient or Responsible Constitution Party Signature Date/Time RN Signature Date/Time documented in [...] 02/16/2012 8:47 AM CDTAssociated Order(s): GI REPORT [place], [place] [address] Gastroenterology CSN: [id number] DATE OF SERVICE: 02/16/2012 PROCEDURE Flexible endoscopy [...] IMPRESSION Pouchitis. Ileal pouch anal anastomosis stricture. PLR:SHWETHA DID: [id number] Dictated by: Louise Rizo MD cc: Martin Corral MD * [facility] Scanning, [facility] - 02/16/2012 7:46 AM CDTAssociated Order(s): GI REPORT * Louise Rizo MD - 02/16/2012 7:45 AM CDTAssociated Order(s): GI REPORT [facility] Endoscopy Patient Name: Mukul Elkins Procedure Date No Time: 02/16/2012 Date of : 1970 Attending MD: Louise Rizo MD Procedure: Images Only- Procedure Report in [facility] Providers: Louise Rizo MD Submitted Louise Rizo MD Number of Addenda: [address]; [place] [address] documented in this encounter OR Notes * OR Anesthesia - Stl Javon, [facility] - 02/18/2012 4:59 PM CDT * OR Anesthesia - Dagoberto Salcido AA-C - 02/16/2012 7:51 AM CDT Phase II Postanesthesia Evaluation Including [facility] Modified Rebekah Score Patient seen and evaluated: RESPIRATORY FUNCTION: Respiration: able to breath and cough freely (02/16/12 0749) [2=able to breathe and cough freely, 1=dyspnea, limited breathing or tachypnea, 0=apnea or mechanicventilator] O2 Saturation: able to maintain O2 saturation greater than 92% on room air (02/16/12 0749) [2=able to maintain O2 saturation greater than [...] not increasing, 0=growing area of wetness] [facility] Modified Rebekah Score: Score: 20 (02/16/127[address]) COMMENTS: No apparent Anesthesia related complications GEOFFREY Rodriguez 02/16/2012 7:52 AM * OR Anesthesia - Susan Singletary MD - 02/16/2012 6:42 AM CDT GI Lab Pre-Anesthesia Evaluation - Long Form 02/16/2012 6:43 AM Name: Mukul Elkins Age: 41 y.o. Sex: male CSN: [id number] Procedure: Procedure(s): COLONOSCOPY Surgeons/Assistants: Surgeon(s) and Role: [...] ??? lactated ringers solution IV Pre-Proc Continuous Louise Rizo MD 125 mL/hr at 02/16/12 0630 There are no active problems to display for this patient. Past Medical History Diagnosis Date ??? Ulcerative colitis ??? Unspecified adverse effect of anesthesia violent after 1st surgery ??? Ulcerative colitis Past Surgical History Procedure Date ??? Hx colectomy 2001 ??? Pr colonoscopy,diagnostic 12/08/2009 COLONOSCOPY performed by LOUISE RIZO at [facility] GI LAB History Substance Use Topics [...] Notes * Scanned Form - [facility] Scanning, [facility] - 02/18/2012 4:59 PM CDT Electronically signed by Interface, [facility] R[facility] Internship Incoming at 02/18/2012 4:59 PM CDT * Scanned Form - [facility] Scanning, [facility] - 02/18/2012 4:59 PM CDT Electronically signed by Interface, [facility] Internship Incoming at 02/18/2012 4:59 PM CDT * Patient Instructions - [facility] Scanning, [facility] - 02/18/2012 4:59 PM CDT Electronically signed by Interface, [facility] R[facility] Internship Incoming at 02/18/2012 4:59 PM CDT documented in this encounter Plan of Treatment Upcoming Encounters Date Type Department Care Team (Late st Contact Info) Description 02/13/2025 10:30 AM CDT Office Visit [facility] IBD and Gastroenterology Center [place] [address] [facility] [address] [place] [phone] Kitty [place], [facility] [address] [facility] [address] [place] [address] documented as of this encounter Procedures Procedure Name Priority Date/Time Associated Diagnosis Comments POUCHOSCOPY 02/16/2012 3:00 PM CDT SIGMOIDOSCOPY FLEXIBLE 2 3:00 PM CDT GI REPORT 02/16/2012 11:17 AM CDT PATHOLOGY Routine 02/16/2012 10:17 AM CDT documented in this encounter Results * GI REPORT (02/16/2012 11:17 AM CDT) Narrative Transcriptions Louise Rizo MD - 02/16/2012 8:47 AM CDT [place], [place] [address] Gastroenterology CSN: [id number] DATE OF SERVICE: 02/16/2012 PROCEDURE Flexible endoscopy [...] Pouchitis. Ileal pouch anal anastomosis stricture. PLR:MEDQ DID:[id number] Dictated by: Louise Rizo MD cc: Martin Corral MD Louise Rizo MD GI PROCEDURE ORDERAB LES * PATHOLOGY (02/16/2012 10:17 AM CDT) SURGICAL PATHOLOGY ?[facility] ?[address] ? [place], [place] ??[address] ? Patient: ??THYER, MUKUL S ? : ??1970 ? Procedure Date: ??02/16/2012 ? Accession Date: ??02/16/2012 ? Case No: ??[id number] ? Ordering Dr: ??LOUISE RIZO ? Case type SW is performed by [facility], [address] [facility], ? [place], [place] ??[address]; all other case types are performed by [facility] ? [facility], [address] [place], [place] ??[address] ?SURGICAL PATHOLOGY & NON-GYNECOLOGIC CYTOPATHOLOGY REPORT ? DIAGNOSIS ? SMALL INTESTINE, ILEAL POUCH, BIOPSIES: ? - ACTIVE ILEITIS (POUCHITIS) WITH MODERATE ACTIVITY. ? Specimen Description: ? Ileal pouch biopsy. ? Operative Procedure: ? Colonoscopy. ? Patient Information/Histo ry/Diagnosis: ? 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 pouchitis. ? Gross: ? Received in one container labeled Mukul Elkins, colon ileal pouch ? biopsy are eleven pieces of newman tissue ranging from 0.1 cm to 0.3 cm in ? greatest dimension. All are submitted in block A1. ? [facility] 02.16.2012 03:51 pm ? Microscopic: ? The slides are labeled Mukul Elkins and [id number]. ? The biopsies from the ileal pouch [...] FOR KATIE MICHELE M.D.- 02/17/12 07:26 pm [facility] 02/16/2012 10:1 7 AM CDT Louise Rizo MD PATHOLOGY/CYTOLOGY O RDERABLES [facility] CLIA# [id number] [address], [place] [address] documented in this encounter Visit Diagnoses Not [...] 0630 (New Bag - Prov ider: Nia Friend RN)0749 (Stopped - Provider: Lizy Thakkar RN) documented in this encounter Care Teams Dynamics Ax Technical Architect Relationship Specialty Start Date End Date Martin Kelley MD PCP - General Internal Medicine 02/16/12 08/14/17 documented as of this encounter
--- OUTSIDE RECORDS SUMMARY | 2024-10-24 05:35 | XMS_ITS | Encounter Summary ---
Author Organization [facility] Address [address] [place] [address] Care Team Providers Care Adjunct Teacher Name Role Phone Jasiel Freeman MD Primary Care Provider Encounter Details Date Type Department Care Team (Latest Contact Info) Description 04/17/2002 Inpatient Historical [facility] Willian Rizo [...] Description 02/13/2025 10:30 AM CDT Office Visit [facility] IBD and Gastroenterology [facility] [place] [address] [facility] [address] [place] [address] Kitty Dover ANP [address] [facility] [address] [place] [address] documented as of this encounter Visit Diagnoses Diagnosis Ulcerative colitis, unspecified- Primary documented in this encounter Additional Health Concerns Infection Onset Date Last Indicated Resolved Time R/O C. diff 08/11/2022 08/10/2022 08/11/2022 2:45 PM CDT R/O C. diff 12/11/2022 12/09/2022 12/11/2022 1:26 PM MILL OPERATOR R/O C. diff 10/17/2024 10/17/2024 10/17/2024 6:55 PM MILL OPERATOR documented as of this encounter Care Teams Adjunct Teacher Relationship Specialty Start Date End Date Jasiel Freeman MD [address] [place] [address] PCP - General Family Practice 08/15/17 documented as of this encounter
--- OUTSIDE RECORDS SUMMARY | 2024-10-24 05:35 | XMS_ITS | Encounter Summary ---
Author Organization [facility] Address [address] [place] [address] Care Team Providers Care Sound Equipment Mechanic Name Role Phone Jasiel Freeman MD Primary Care Provider Encounter Details Date Type Department Care Team (Late st Contact Info) Description 10/31/2002 Outpatient Historical [facility] Willian Rizo [...] 10:30 AM CDT Office Visit [facility] IBD and Gastroenterology Center [place] [address] [facility] [address] [place] [address] Kitty [place] ANP [address] [address] [place] [address] documented as of this encounter Visit Diagnoses Diagnosis Digestive system complication- Primary documented in this encounter Additional Health Concerns Infection Onset Date Last Indicated Resolved Time R/O C. diff 08/11/2022 08/10/2022 08/11/2022 2:45 PM CDT R/O C. diff 12/11/2022 12/09/2022 12/11/2022 1:26 PM FRUIT THINNER MACHINE OPERATOR R/O C. diff 10/17/2024 10/17/2024 10/17/2024 6:55 PM FRUIT THINNER MACHINE OPERATOR documented as of this encounter Care Teams Sound Equipment Mechanic Relationship Specialty Start Date End Date Jasiel Freeman MD [address] [place] [phone] PCP - General Family Practice 08/15/17 documented as of this encounter
--- OUTSIDE RECORDS SUMMARY | 2024-10-24 05:35 | XMS_ITS | Encounter Summary ---
Author Organization [facility] Address [address] [place] [address] Care Team Providers Care Set O Type Operator Name Role Phone Unavailable Primary Care Provider Unavailabl e Encounter Details Date Type Department Care Team (Late st Contact Info) Description 12/08/2009 9:00 AM CONTROL ENGINEER - 12/08/2009 9:40 AM CONTROL ENGINEER Surgery [facility] [address] [place] [address] Louise Rizo MD NO ADDRESS ON FILE COLONOSCOPY Surgery Details Date/Time Status Location OR Service Patient Class Case Class Case Type Trauma Case? 12/08/2009 9:[address] GI LAB GI 03 Gastroenterology Outpatient Elective No Panel 1 Procedure LRB Anes Op Region Wound Class Comments COLONOSCOPY N/A General Anus Clean Contaminated -II Surgeon Surgeon Role Service Panel Louise Rizo [...] Sign Reading Time Taken Comments Blood Pressure 126/80 12/08/2009 9:32 AM CONTROL ENGINEER Pulse 104 12/08/2009 9:32 AM CONTROL ENGINEER Temperature 36.8 ??C (98.3 ??F) 12/08/2009 9:32 AM CS T Respiratory Rate 20 12/08/2009 9:32 AM CONTROL ENGINEER Oxygen Saturation 94% 12/08/2009 9:32 AM CONTROL ENGINEER Inhaled Oxygen Concentration - - Weight 77.1 kg (170 lb) 12/04/2009 4:18 PM CONTROL ENGINEER Height 175.3 cm (5' 9 ) 12/04/2009 4:18 PM CONTROL ENGINEER Body Mass Index 25.1 12/04/2009 4:18 PM CONTROL ENGINEER documented in this encounter Discharge Instructions * Discharge Instructions* Dayana Miranda RN - 12/08/2009 10:17 AM CONTROL ENGINEER If you should experience: Severe abdominal pain, [...] call the physician who prescribed the medication. ROL ENGINEER documented in this encounter Medications at Time of Discharge Medication Sig Dispensed Refills Start Date End Date mesalamine (ASACOL) 400 mg Oral TbEC Take 400 mg by mouth 2 times daily. 03/03/2012 documented as of this encounter Procedure Notes * Louise Rizo MD - 12/08/2009 10:53 AM CSTAssociated Order(s): GI REPORT [place], [place] [address] Gastroenterology CSN: [id number] DATE OF SERVICE: 12/08/2009 PROCEDURE PERFORMED 1. Flexible endoscopy of pelvic ileo J pouch anal anastomosis with multiple biopsies. 2. Dilatation under anesthesia of ileal pouch anal anastomosis. MEDICATIONS Propofol per anesthesia. INSTRUMENT Olympus PCF 160 AL video colonoscope. INDICATIONS FOR SURGERY The patient is a 39-year-old man who underwent a restorative proctocolectomy for ulcerative colitisin the spring. Temporary loop ileostomy was subsequently closed in June of that year. He has been followed since that time on an office basis with periodic endoscopy. In September of 2002he was found to have a tight cicatrix and in October 2002 underwent a balloon dilatation of the anastomosis. He has undergone periodic dilatation on an office basis but this became increasingly uncomfortable for him, to the point that he stopped making office appointments. He has had 1 episode of pouchitis in the distant past, treated with Flagyl. He stays of Asacol 400 mg b.i.d. for suppression. Over the past month or so he has had increasing problems with crampy abdominal pain and difficulty evacuating. He denies any fever. His stools have been a bit looser. He presents for dilatation of his stricture and evaluation of the pouch. PAST MEDICAL HISTORY Hospitalizations, operations and injuries as above only. ALLERGIES None stated. CURRENT MEDICATIONS Asacol 400 mg b.i.d. REVIEW OF SYSTEMS Noncontributory except as above. PHYSICAL EXAMINATION GENERAL: The patient is a tall, pleasant, fully alert and oriented gentleman who outwardly appears to be in vigorous good health. LUNGS: Clear. HEART: Rhythm appears to be sinus, there are no murmurs. ABDOMEN: Soft, there is a midline incision which is well healed and a right lower quadrant transverse incision also well healed. RECTAL: Visually normal externally. DESCRIPTION OF PROCEDURE The patient was brought to the GI lab, sedated with propofol and a finger was inserted into the anal canal. There was a tight cicatricial stenosis at the ileal pouch anorectal anastomosis. This was vigorously dilated with a finger. After dilating the stricture, the PCF 160 AL video colonoscope was inserted per anus into the pouchand subsequently into the terminal ileum above the pouch. The mucosa of the terminal ileum proximalto the pouch appears to be chronically inflamed and somewhat granular. Multiple biopsies were taken. The pouch itself was moderately inflamed with the appearance of active pouchitis. There was no gross ulceration. The anastomosis itself was somewhat ragged but after dilatation it appeared to be widely patent. Multiple biopsies were taken from the pouch and the anastomosis. Stool samples were taken for culture and sensitivity. DIAGNOSTIC IMPRESSION 1. 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 RECOMMENDATIONS I am going to start the patient on Flagyl 250 mg 4 times a day and plan to see him in my office again in a month. PLR:MEDQ DID: [id number] Dictated by: Louise Rizo MD cc: Osman Plata MD ROL ENGINEER documented in this encounter OR Notes * OR Anesthesia - Sherwin Medina - 12/13/2009 9:08 AM CONTROL ENGINEER * Operative Report - Louise Rizo MD - 12/08/2009 10:01 AM CST Brief Postoperative Note Full note dict Mukul Elkins [id number] Pre-operative Diagnosis: ? pouchitis Post-operative Diagnosis: Same Procedure/Anesthesia: Procedure(s) and Anesthesia Type: * COLONOSCOPY - General Surgeons/Assistants: Surgeon(s) and Role: * Louise Rizo MD - Primary Specimens Removed: bx Estimated Blood Loss: Minimal Complications:none Louise Rizo MD ROL ENGINEER * Operative Report - Louise Rizo MD - 12/08/2009 10:00 AM CST Samples taken. Call my office within 5 days for results and further instructions. Biopsies taken. Call my office within 5 days for results and further instructions. ROL ENGINEER * OR Anesthesia - Alexis Holloway MD - 12/08/2009 9:26 AM CST Pre-Anesthesia Evaluation - Long Form 12/08/2009 9:27 AM Name: Mukul Elkins Age: 39 y.o. Sex: male CSN: [id number] Procedure: Procedure(s): COLONOSCOPY Surgeons/Assistants: Surgeon(s) and Role: * Louise Rizo MD - Primary No Known Allergies Prescriptions prior to admission Medication Sig Dispense Refill ??? mesalamine (ASACOL) 400 mg Oral TbEC Take 400 mg by mouth 2 times daily. There are no active problems to display for this patient. Past Medical History Diagnosis Date ??? Ulcerative Colitis Past Surgical History Procedure Date ??? Hx colectomy History Substance Use Topics ??? Tobacco Use: Yes -- 0.5 packs/day for 10 years off & on ??? Alcohol Use: No Family History Problem Relation ??? Heart Disease Father ??? Hypertension Mother ??? Healthy Sister ??? Healthy Brother Previous Anesthesia Problems/Concerns: No anesthesia problems/complications and Patient concerns based on previous anesthesia woke up violently after colectomy History of PONV No Review of Systems Cardiovascular: negative Respiratory: positive for asthma or childhood asthma Gastroenterology: positive for diarrhea Neurological:negative Renal:negative Endocrine:negative PHYSICAL EXAM Ht 5' 9 (1.753 m) Wt 170 lb (77.111 kg) Weight: Wt - Scale: 170 lb (77.111 kg) (12/04/09 1618) Height: Last 1 Encounter Ht Readings: Date Ht 11/30/2009 5' 9 (1.753 m) BMI: Body mass index is 25.10 kg/(m^2). Airway: normal range of motion and supple: Airway Class: II (soft palate, uvula, fauces visible); Mouth Opening 3+ Finger Breadth Lungs: clear to auscultation bilaterally, normal respiratory effort Heart: regular rate and rhythm, S1, S2 normal, no murmur, click, rub or gallop Neuro: alert, oriented x 3, no defects noted in general exam. Vascular Access: Peripheral Line LABS Lab Results Component Value Date/Time ??? WBC 7.2 06/26/06 8:50 PM ??? HEMOGLOBIN 14.9 06/26/06 8:50 PM ??? HEMATOCRIT 43.0 06/26/06 8:50 PM ??? PLATELETS 462 06/26/06 8:50 PM ??? MCV 81.9 06/26/06 8:50 PM No results found for this basename: NA,K,CL,CO2,CA,BUN,CREAT,GLUCOSE,ANIONGAP,BCRATIO No results found for this basename: INR,PT,PROTIMEPOC No results found for this basename: HCGURPOC,HCGQUALUR,HCGQUAL,HCGQUANT,HCGINTACT No results found for this basename: glucpoc EKG: EKG not indicated today Other Studies/Considerations: None Postop pain management discussed yes Smoking/Tobacco Counselin-10 min Recommendations: None ASA Physical Status: ASA 2 - Patient with mild systemic disease with no functional limitations I have seen and examined this patient and confirm that all data is current and accurate. Yes Choice of Anesthesia/Anesthesia Plan: Proceed, General and Routine Monitoring I have discussed the anesthetic options and the risks/benefits with the patient/family. Questions have been solicited and answered. Yes Alexis Holloway MD ROL ENGINEER documented in this encounter Miscellaneous Notes * Scanned Form - Stl Scanning, Provider - 12/13/2009 9:07 AM CONTROL ENGINEER * Scanned Form - Stl Scanning, Provider - 12/13/2009 9:07 AM CONTROL ENGINEER * Patient Instructions - Stl Scanning, Provider - 12/13/2009 8:54 AM CONTROL ENGINEER documented in this encounter Plan of Treatment Upcoming Encounters Date Type Department Care Team (Late st Contact Info) Description 02/13/2025 10:30 AM CDT Office Visit [facility] [place] [address] [place] [address] Kitty Dover ANP [address] [place] [address] documented as of this encounter Procedures Procedure Name Priority Date/Time Associated Diagnosis Comments PATHOLOGY Routine 12/08/2009 11:19 AM CONTROL ENGINEER GI REPORT 12/08/2009 10:54 AM CONTROL ENGINEER C. DIFFICILE DETECTION Routine 12/08/2009 10:15 AM CONTROL ENGINEER STOOL CULTURE W/SHIGA TOXIN Routine 12/08/2009 10:15 AM CONTROL ENGINEER COLONOSCOPY 12/08/2009 9:35 AM CONTROL ENGINEER ABDOMINAL PAIN documented in this encounter Results * PATHOLOGY (12/08/2009 11:19 AM CONTROL ENGINEER) SURGICAL PATHOLOGY ?[facility] ?[address] ? [place], [place] ??[address] ? Patient: ??CECILE, MUKUL S ? : ??1970 ? Procedure Date: ??12/08/2009 ? Accession Date: ??12/08/2009 ? Case No: ??[id number] ? Ordering Dr: ??LOUISE RIZO ? Case type SW is performed by [facility], [place], [place]; ? all other case types are performed by [facility], [place], ? [place] ?SURGICAL PATHOLOGY & NON-GYNECOLOGIC CYTOPATHOLOGY REPORT ? DIAGNOSIS ? SMALL INTESTINE, TERMINAL ILEUM, BIOPSY: ? - ACTIVE ILEITIS WITH CHRONICITY. ? SMALL INTESTINE, PELVIC POUCH, BIOPSY: ? - POUCHITIS WITH FOCAL ULCERATION. ? Specimen Description: ? (1) Small bowel biopsy; (2) pelvic punch biopsy. ? Operative Procedure: ? Colonoscopy. ? Patient Information/History/ Diagnosis: ? (1) Rule out inflammatory bowel disease; (2) rule out pouchitis. ? Gross: ? The specimens are received in two containers, each labeled Mukul Elkins S. ? Received in the first container labeled small bowel biopsy, are two ? pieces of newman tissue that are each 0.3 cm in greatest dimension. The entire ? specimen is submitted in cassette A1. ? Received in the second container labeled pelvic punch biopsy, are four ? pieces of newman tissue that range from 0.2 to 0.4 cm in greatest dimension. ? The entire specimen is submitted in cassette B1. ? LWL/NUNU 12.08.2009 12:50 pm ? Microscopic: ? The slides are labeled [id number] and Mukul Elkins. ? Both biopsies display similar features of an active ileitis and pouchitis ? with chronicity, respectively. There is lamina propria expansion by a full- ? thickness lymphoplasmacytic infiltrate. There is also active inflammation, ? with neutrophils scattered in the interstitium and focally infiltrating the ? glandular epithelium. There is moderate to focally marked blunting and ? distortion of the villous architecture. An area of ulceration is seen in ? the pouch biopsy. There is no evidence of dysplasia. ? GL/NUNU 12.09.2009 12:05 pm ? Staging Form: ? No. ? ELECTRONIC SIGNATURE FOR LUIS EVANS M.D.- 12/09/09 10:08 pm [facility] [place] [facility] 12/08/2009 11:1 9 AM CONTROL ENGINEER Louise Rizo MD PATHOLOGY/CYTOLOGY O RDERABLES [facility] [place] [facility] CLIA# [id number] [address] [place] [address] * GI REPORT (12/08/2009 10:54 AM CONTROL ENGINEER) Narrative 12/08/2009 10:54 AM CONTROL ENGINEER [place], [place] ??[address] ?? Gastroenterology CSN: [id number] DATE OF SERVICE: ??12/08/2009 PROCEDURE PERFORMED 1. Flexible endoscopy of pelvic ileo J pouch anal anastomosis with multiple biopsies. 2. Dilatation under anesthesia of ileal pouch anal anastomosis. MEDICATIONS Propofol per anesthesia. INSTRUMENT Olympus PCF 160 AL video colonoscope. INDICATIONS FOR SURGERY The patient is a 39-year-old man who underwent a restorative proctocolectomy for ulcerative colitis in the spring. ?? Temporary loop ileostomy was subsequently closed in June of that year. ??He has been followed since that time on an office basis with periodic endoscopy. ??In September of 2002 he was found to have a tight cicatrix and in October 2002 underwent a balloon dilatation of the anastomosis. ??He has undergone periodic dilatation on an office basis but this became increasingly uncomfortable for him, to the point that he stopped making office appointments. ??He has had 1 episode of pouchitis in the distant past, treated with Flagyl. ??He stays of Asacol 400 mg b.i.d. for suppression. Over the past month or so he has had increasing problems with crampy abdominal pain and difficulty evacuating. ??He denies any fever. ??His stools have been a bit looser. ??He presents for dilatation of his stricture and evaluation of the pouch. PAST MEDICAL HISTORY Hospitalizations, operations and injuries as above only. ALLERGIES None stated. CURRENT MEDICATIONS Asacol 400 mg b.i.d. REVIEW OF SYSTEMS Noncontributory except as above. PHYSICAL EXAMINATION GENERAL: ??The patient is a tall, pleasant, fully alert and oriented gentleman who outwardly appears to be in vigorous good health. ?? LUNGS: ??Clear. HEART: ??Rhythm appears to be sinus, there are no murmurs. ABDOMEN: ??Soft, there is a midline incision which is well healed and a right lower quadrant transverse incision also well healed. ?? RECTAL: ??Visually normal externally. DESCRIPTION OF PROCEDURE The patient was brought to the GI lab, sedated with propofol and a finger was inserted into the anal canal. ??There was a tight cicatricial stenosis at the ileal pouch anorectal anastomosis. ?? This was vigorously dilated with a finger. ?? After dilating the stricture, the PCF 160 AL video colonoscope was inserted per anus into the pouch and subsequently into the terminal ileum above the pouch. ??The mucosa of the terminal ileum proximal to the pouch appears to be chronically inflamed and somewhat granular. ??Multiple biopsies were taken. ?? The pouch itself was moderately inflamed with the appearance of active pouchitis. ??There was no gross ulceration. ??The anastomosis itself was somewhat ragged but after dilatation it appeared to be widely patent. ??Multiple biopsies were taken from the pouch and the anastomosis. Stool samples were taken for culture and sensitivity. DIAGNOSTIC IMPRESSION 1. Moderate pouchitis and ileitis. ?? 2. Ileoanal stricture. RECOMMENDATIONS I am going to start the patient on Flagyl 250 mg 4 times a day and plan to see him in my office again in a month. PLR:MEDQ ? DID: [id number] Dictated by: Louise Rizo MD ?? cc: Osman Plata MD Procedure Note Louise Rizo MD - 12/08/2009 10:53 AM CST [place], [place] [address] Gastroenterology CSN: [id number] DATE OF SERVICE: 12/08/2009 PROCEDURE PERFORMED 1. Flexible endoscopy of pelvic ileo J pouch anal anastomosis withmultiple biopsies. 2. Dilatation under anesthesia of ileal pouch anal anastomosis. MEDICATIONS Propofol per anesthesia. INSTRUMENT Olympus PCF 160 AL video colonoscope. INDICATIONS FOR SURGERY The patient is a 39-year-old man who underwent a restorativeproctocolectomy for ulcerative colitis in the spring. Temporaryloop ileostomy was subsequently closed in June of that year. He hasbeen followed since that time on an office basis with periodic endoscopy.In September of 2002 he was found to have a tight cicatrix and in October2002 underwent a balloon dilatation of the anastomosis. He has undergoneperiodic dilatation on an office basis but this became increasinglyuncomfortable for him, to the point that he stopped making officeappointments. He has had 1 episode of pouchitis in the distant past,treated with Flagyl. He stays of Asacol 400 mg b.i.d. for suppression. Over the past month or so he has had increasing problems with crampyabdominal pain and difficulty evacuating. He denies any fever. Hisstools have been a bit looser. He presents for dilatation of hisstricture and evaluation of the pouch. PAST MEDICAL HISTORY Hospitalizations, operations and injuries as above only. ALLERGIES None stated. CURRENT MEDICATIONS Asacol 400 mg b.i.d. REVIEW OF SYSTEMS Noncontributory except as above. PHYSICAL EXAMINATION GENERAL: The patient is a tall, pleasant, fully alert and orientedgentleman who outwardly appears to be in vigorous good health. LUNGS: Clear. HEART: Rhythm appears to be sinus, there are no murmurs. ABDOMEN: Soft, there is a midline incision which is well healed and aright lower quadrant transverse incision also well healed. RECTAL: Visually normal externally. DESCRIPTION OF PROCEDURE The patient was brought to the GI lab, sedated with propofol and a fingerwas inserted into the anal canal. There was a tight cicatricial stenosisat the ileal pouch anorectal anastomosis. This was vigorously dilatedwith a finger. After dilating the stricture, the PCF 160 AL video colonoscope wasinserted per anus into the pouch and subsequently into the terminal ileumabove the pouch. The mucosa of the terminal ileum proximal to the pouchappears to be chronically inflamed and somewhat granular. Multiplebiopsies were taken. The pouch itself was moderately inflamed with the appearance of activepouchitis. There was no gross ulceration. The anastomosis itself wassomewhat ragged but after dilatation it appeared to be widely patent.Multiple biopsies were taken from the pouch and the anastomosis. Stool samples were taken for culture and sensitivity. DIAGNOSTIC IMPRESSION 1. 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 RECOMMENDATIONS I am going to start the patient on Flagyl 250 mg 4 times a day and plan tosee him in my office again in a month. PLR:MEDQ DID:[id number] Dictated by: Louise Rizo MD cc: Osman Plata MD Louise Rizo MD GI PROCEDURE ORDERAB LES * STOOL CULTURE (12/08/2009 10:15 AM CONTROL ENGINEER) PRELIMINARY REPORT No Salmonella isolated. No Shigella isolated. No Escherichia coli serogroup O157:H7 isolated. [facility] FINAL REPORT No Salmonella isolated. No Shigella isolated. No Escherichia coli serogroup O157:H7 isolated. No Campylobacter isolated. [facility] 12/08/2009 10:1 5 AM CONTROL ENGINEER 12/08/2009 11:46 AM CONTROL ENGINEER Narrative [facility] [place] [facility] - 12/11/2009 8:12 AM CONTROL ENGINEER SPECIMEN ENCLOSED Louise Rizo MD MICROBIOLOGY - GENER AL ORDERABLES Performing Organization Address [facility] Co de Phone Number [facility] CLIA# [id number] [address] [place] [address] * CLOSTRIDIUM DIFFICILE TOXIN (12/08/2009 10:15 AM CONTROL ENGINEER) FINAL REPORT NO Clostridium difficile Toxin A or B detected by EIA. A negative result does not rule out C. difficile associated diarrhea or colitis. [facility] 12/08/2009 10:1 5 AM CONTROL ENGINEER 12/08/2009 11:46 AM CONTROL ENGINEER Narrative [facility] - 12/08/2009 3:19 PM CONTROL ENGINEER Specimen enclosed Louise Rizo MD MICROBIOLOGY - [facility] AL ORDERABLES Performing Organization Address [facility] Co de Phone Number [facility] CLIA# [id number] [address] [place] [address] documented in this encounter Visit Diagnoses Not on filedocumented in this encounter Administered Medications Inactive Administered Medications - up to 3 most recent administrations Medication Order MAR Action Action Date Dose Rate Site lactated ringers solution IV, at 125 mL/hr, PRE-PROCEDURE CONTINUOUS, Starting on Mon12/08/09 at 0930, Until Mon12/09/09 at 0201, Routine New Bag 12/08/2009 9:30 AM CONTROL ENGINEER 125 mL /hr documented in this encounter Active and Recently Administered Medications Times are shown in CONTROL ENGINEER. Continuous Medication Order 12/06/2009 12/07/2009 12/08/2009 lactated ringers solution (CANCELED) IV, at 125 mL/hr, PRE-PROCEDURE CONTINUOUS, Starting on Mon12/08/09 at 0930, Until Mon12/09/09 at 0201, Routine 0930 (New Bag - Prov ider: Rajni Delvalle)1019 (Stopped - Provider: Dayana Miranda RN) documented in this encounter
--- OUTSIDE RECORDS SUMMARY | 2024-10-24 05:35 | XMS_ITS | Encounter Summary ---
Author Organization [facility] Address [address] [place] [address] Care Team Providers Care Change Advisor Name Role Phone Jasiel Freeman MD Primary Care Provider Encounter Details Date Type Department Care Team (Late st Contact Info) Description 05/23/2006 Outpatient Historical [facility] Willian Rizo MD NO ADDRESS ON FILE Digestive System Complication (Primary Dx) Social History Tobacco Use Types [...] [facility] [place] [address] [facility] [address] [place] [address] Kitty Dover ANP [address] [facility] [address] [place] [address] documented as of this encounter Visit Diagnoses Diagnosis Digestive system complication- Primary documented in this encounter Additional Health Concerns Infection Onset Date Last Indicated Resolved Time R/O C. diff 08/11/2022 08/10/2022 08/11/2022 2:45 PM CDT R/O C. diff 12/11/2022 12/09/2022 12/11/2022 1:26 PM BIOMETRIC TECHNICIAN R/O C. diff 10/17/2024 10/17/2024 10/17/2024 6:55 PM BIOMETRIC TECHNICIAN documented as of this encounter Care Teams Change Advisor Relationship Specialty Start Date End Date Jasiel Freeman MD [address] [place] [phone] PCP - General Family Practice 08/15/17 documented as of this encounter
--- OUTSIDE RECORDS SUMMARY | 2024-10-24 05:35 | XMS_ITS | Encounter Summary ---
Author Organization [facility] Address [address] [place] [address] Care Team Providers Care Advertising Rep Name Role Phone Unavailable Primary Care Provider Unavailabl e Encounter Details Date Type Department Care Team (Latest Contact Info) Description 12/08/2009 7:51 AM RETAIL SHIFT SUPERVISOR - 12/08/2009 11:35 PM RETAIL SHIFT SUPERVISOR Hospital Encounter [facility] [address] [place] [address] Louise Rizo MD NO ADDRESS [...] Sign Reading Time Taken Comments Blood Pressure 125/71 12/08/2009 10:21 AM RETAIL SHIFT SUPERVISOR Pulse 88 12/08/2009 10:21 AM RETAIL SHIFT SUPERVISOR Temperature 36.6 ??C (97.9 ??F) 12/08/2009 10:[address] Respiratory Rate 18 12/08/2009 10:21 AM RETAIL SHIFT SUPERVISOR Oxygen Saturation 94% 12/08/2009 10:21 AM RETAIL SHIFT SUPERVISOR Inhaled Oxygen Concentration - - Weight 77.1 kg (170 lb) 12/04/2009 4:18 PM RETAIL SHIFT SUPERVISOR Height 175.3 cm (5' 9 ) 12/04/2009 4:18 PM RETAIL SHIFT SUPERVISOR Body Mass Index 25.1 12/04/2009 4:18 PM RETAIL SHIFT SUPERVISOR documented in this encounter Discharge Instructions * Discharge Instructions* Dayana Miranda RN - 12/08/2009 10:17 AM RETAIL SHIFT SUPERVISOR If you should experience: Severe abdominal pain, [...] call the physician who prescribed the medication. [place] SHIFT SUPERVISOR documented in this encounter Medications at Time of Discharge Medication Sig Dispensed Refills Start Date End Date mesalamine (ASACOL) 400 mg Oral TbEC Take 400 mg by mouth 2 times daily. 03/03/2012 documented as of this encounter Procedure Notes * Louise Rizo MD - 12/08/2009 10:53 AM CSTAssociated Order(s): GI REPORT [place], [place] [address] Gastroenterology CSN: [id number] DATE OF SERVICE: 12/08/2009 PROCEDURE PERFORMED 1. [...] office again in a month. PLR:MEDQ DID: [id number] Dictated by: Louise Rizo MD cc: Osman Plata MD [place] SHIFT SUPERVISOR documented in this encounter OR Notes * OR Anesthesia - Sherwin Medina - 12/13/2009 9:08 AM RETAIL SHIFT SUPERVISOR * Operative Report - Louise Rizo MD - 12/08/2009 10:01 AM CST Brief Postoperative Note Full note dict Mukul Elkins [id number] Pre-operative Diagnosis: ? pouchitis Post-operative Diagnosis: Same Procedure/Anesthesia: Procedure(s) and Anesthesia Type: * COLONOSCOPY - General Surgeons/Assistants: Surgeon(s) and Role: * Louise Rizo MD - Primary Specimens Removed: bx Estimated Blood Loss: Minimal Complications:none Louise Rizo MD [place] SHIFT SUPERVISOR * Operative Report - Louise Rizo MD - 12/08/2009 10:00 AM CST Samples taken. Call my office within 5 days for results and further instructions. Biopsies taken. Call my office within 5 days for results and further instructions. [place] SHIFT SUPERVISOR * OR Anesthesia - Alexis Holloway MD - 12/08/2009 9:26 AM CST Pre-Anesthesia Evaluation - Long Form 12/08/2009 9:27 AM Name: Mukul Elkins Age: 39 y.o. Sex: male CSN: [id number] Procedure: Procedure(s): COLONOSCOPY Surgeons/Assistants: Surgeon(s) and Role: [...] solicited and answered. Yes Alexis Holloway MD [place] SHIFT SUPERVISOR documented in this encounter Miscellaneous Notes * Scanned Form - Stl Scanning, Provider - 12/13/2009 9:07 AM RETAIL SHIFT SUPERVISOR * Scanned Form - Stl Scanning, Provider - 12/13/2009 9:07 AM RETAIL SHIFT SUPERVISOR * Patient Instructions - Stl Scanning, Provider - 12/13/2009 8:54 AM RETAIL SHIFT SUPERVISOR documented in this encounter Plan of Treatment Upcoming Encounters Date Type Department Care Team (Late st Contact Info) Description 02/13/2025 10:30 AM CDT Office Visit [facility] [place] [address] [facility] [address] [place] [address] Kitty Dover, MIRTA [address] [facility] [address] [place] [address] documented as of this encounter Procedures Procedure Name Priority Date/Time Associated Diagnosis Comments PATHOLOGY Routine 12/08/2009 11:19 AM RETAIL SHIFT SUPERVISOR GI REPORT 12/08/2009 10:54 AM RETAIL SHIFT SUPERVISOR C. DIFFICILE DETECTION Routine 12/08/2009 10:15 AM RETAIL SHIFT SUPERVISOR STOOL CULTURE W/SHIGA TOXIN Routine 12/08/2009 10:15 AM RETAIL SHIFT SUPERVISOR COLONOSCOPY 12/08/2009 9:35 AM RETAIL SHIFT SUPERVISOR ABDOMINAL PAIN documented in this encounter Results * PATHOLOGY (12/08/2009 11:19 AM RETAIL SHIFT SUPERVISOR) SURGICAL PATHOLOGY ?[facility] ?[address] ? [place], [place] ??[address] ? Patient: ??MUKUL ELKINS S ? : ??1970 ? Procedure Date: ??12/08/2009 ? Accession Date: ??12/08/2009 ? Case No: ??[id number] ? Ordering Dr: ??LOUISE RIZO ? Case type SW is performed by [facility], [place], [place]; ? all other case types are performed by [facility], ? [place] ?SURGICAL PATHOLOGY & NON-GYNECOLOGIC CYTOPATHOLOGY [...] ? Microscopic: ? The slides are labeled [id number] and Mukul Elkins. ? Both biopsies display [...] FOR LUIS EVANS M.D.- 12/09/09 10:08 pm [facility] 12/08/2009 11:1 9 AM RETAIL SHIFT SUPERVISOR Louise Rizo MD PATHOLOGY/CYTOLOGY O RDERABLES Performing Organization Address City/State/[facility] Co de Phone Number [facility] CLIA# [id number] [address] [place] [address] * GI REPORT (12/08/2009 10:54 AM RETAIL SHIFT SUPERVISOR) Narrative 12/08/2009 10:54 AM RETAIL SHIFT SUPERVISOR [place], [place] ??[address] ?? Gastroenterology CSN: [id number] DATE OF SERVICE: ??12/08/2009 PROCEDURE PERFORMED 1. [...] again in a month. PLR:MEDQ ? DID: [id number] Dictated by: Louise Rizo MD ?? cc: Osman Plata MD Procedure Note Louise Rizo MD - 12/08/2009 10:53 AM CST [place], [place] [address] Gastroenterology CSN: [id number] DATE OF SERVICE: 12/08/2009 PROCEDURE PERFORMED 1. [...] my office again in a month. PLR:MEDQ DID:[id number] Dictated by: Louise Rizo MD cc: Osman Plata MD Louise Rizo MD GI PROCEDURE ORDERAB LES * STOOL CULTURE (12/08/2009 10:15 AM RETAIL SHIFT SUPERVISOR) PRELIMINARY REPORT No Salmonella isolated. No Shigella isolated. No Escherichia coli serogroup O157:H7 isolated. [facility] FINAL REPORT No Salmonella isolated. No Shigella isolated. No Escherichia coli serogroup O157:H7 isolated. No Campylobacter isolated. [facility] 12/08/2009 10:1 5 AM RETAIL SHIFT SUPERVISOR 12/08/2009 11:46 AM RETAIL SHIFT SUPERVISOR Narrative [facility] - 12/11/2009 8:12 AM RETAIL SHIFT SUPERVISOR SPECIMEN ENCLOSED Louise Rizo MD MICROBIOLOGY - GENER AL ORDERABLES Performing Organization Address [facility] Co de Phone Number [facility] CLIA# [id number] [address] [place], [place] [address] * CLOSTRIDIUM DIFFICILE TOXIN (12/08/2009 10:15 AM RETAIL SHIFT SUPERVISOR) FINAL REPORT NO Clostridium difficile Toxin A or B detected by EIA. A negative result does not rule out C. difficile associated diarrhea or colitis. [facility] 12/08/2009 10:1 5 AM RETAIL SHIFT SUPERVISOR 12/08/2009 11:46 AM RETAIL SHIFT SUPERVISOR Narrative [facility] - 12/08/2009 3:19 PM RETAIL SHIFT SUPERVISOR Specimen enclosed Louise Rizo MD MICROBIOLOGY - GENER AL ORDERABLES Performing Organization Address [facility] de Phone Number [facility] CLIA# [id number] [address] [place] [address] documented in this encounter Visit Diagnoses Not on filedocumented in this encounter Administered Medications Inactive Administered Medications - up to 3 most recent administrations Medication Order MAR Action Action Date Dose Rate Site lactated ringers solution IV, at 125 mL/hr, PRE-PROCEDURE CONTINUOUS, Starting on Mon12/08/09 at 0930, Until Mon12/09/09 at 0201, Routine New Bag 12/08/2009 9:30 AM RETAIL SHIFT SUPERVISOR 125 mL /hr documented in this encounter Active and Recently Administered Medications Times are shown in RETAIL SHIFT SUPERVISOR. Continuous Medication Order 12/06/2009 12/07/2009 12/08/2009 lactated ringers solution (CANCELED) IV, at 125 mL/hr, PRE-PROCEDURE CONTINUOUS, Starting on 12/08/09 at 0930, Until Mon12/09/09 at 0201, Routine 0930 (New Bag - Prov ider: Rajni Delvalle)1019 (Stopped - Provider: Dayana Miranda RN) documented in this encounter
--- OUTSIDE RECORDS SUMMARY | 2024-10-24 06:33 | XMS_ITS | Clinical Summary ---
Author Organization [facility] Address [facility] [place] [address] [place] [address] Care Team Providers Care Sterile Processing Technologist Name Role Phone Jasiel Freeman MD Primary Care Provider Nils Pineda MD Unavailable [phone] Annette Sena MD Unavailable [phone] Allergies Active Allergy Reactions Criticality Noted Date Comments Infliximab Sneezing Low 04/17/2019 flushed face Medications vedolizumab (ENTYVIO) 300 MG injection Inject 300 mg into the vein Once every eight weeks. 11/26/2018 Active testosterone cypionate 200 MG/ML injection Inject 0.75 mLs into the muscle weekly. 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
--- OUTSIDE RECORDS SUMMARY | 2024-10-24 06:33 | XMS_ITS | Continuity of Care Document ---
Author Name [facility] Organization [facility] Care Team Providers Care Behavioral Assistant Name Role Phone [facility] Unavailable Unavailable Plan of Care List of future care activities from Department of Veterans Affairs facilities. Additional future care activities may be listed in the Assessment and Plan section. Date/Time Care Activity Care Activity Detail Facili ty 11/12/2024 AMBULATORY - MEDICINE AMBULATORY - MEDICI [facility]
--- OUTSIDE RECORDS SUMMARY | 2024-10-24 06:33 | XMS_ITS | Encounter Summary ---
Author Organization [facility] Address [facility] [facility] [place] [address] [place] [address] Care Team Providers Care Business Mail Entry Clerk Name Role Phone Jasiel Moise MD Primary Care Provider [phone] Nils Pineda MD Unavailable [phone] JoanieAnthonyAnnette MD Unavailable [phone] Encounter Details Date Type Department Care Team (Latest Contact Info) Description 02/22/2023 9:45 AM CDT - 02/22/2023 11:59 PM CDT Hospital Encounter [facility] [address] [facility] [place] [address] Jasiel Moise MD [address] [place] [phone] Discharge Disposition: Home or Self Care (Routine Discharge) Social History Tobacco Use Types Packs/Day Years Used Date Smoking Tobacco: Former Cigarettes 0 12/25/1990 - 12/25/2010 Smokeless Tobacco: Never Alcohol Use Standard Drinks/Week Comments Yes 3 (1 standard drink = 0.6 oz pur e alcohol) Sex and Gender Information Value Date Recorded Sex Assigned at Not on file 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 11/26/2018 vitamin D2, ergocalciferol, [address]7942 UNITS capsule Take 1 capsule by mouth [...] Lumbago documented in this encounter Care Teams Business Mail Entry Clerk Relationship Specialty Start Date End Date Jasiel Moise MD [address] [place] [phone] PCP - General FAMILY PRACTICE 04/04/19 Nils Pineda MD [address] [place] [address] OTOLARYNGOLOGY 12/26/19 Annette Sena MD [address] [place] [address] INTERNAL MEDICINE 12/26/19 documented as of this encounter
--- OUTSIDE RECORDS SUMMARY | 2024-10-24 06:33 | XMS_ITS | Encounter Summary ---
Author Organization [facility] Address [address] [place] [address]. 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
--- OUTSIDE RECORDS SUMMARY | 2024-10-24 06:34 | XMS_ITS | Encounter Summary ---
Author Organization [facility] Address [facility] [facility] [place] [address] [place] [address] Care Team Providers Care Wound Care Technician Name Role Phone Jasiel Freeman MD Primary Care Provider [phone] Nils Pineda MD Unavailable [phone] Annette Sena MD Unavailable [phone] Encounter Details Date Type Department Care Team (Late st Contact Info) Description 12/26/2019 Prep for Procedure [facility] [place] [address] Theresa Wilson, DAMAGE ASSESSOR [address] [place] [address] Anesthesia Record Procedure Summary Procedure Name Responsible Anesthesiologist Anesthesia Start Time Anesthesia Stop Time FUSION GUIDED BILATERAL ETHMOIDECTOMY, BILATERAL MAXILLARY ANTROSTOMY, BILATERAL TURBINATE REDUCTION, SEPTOPLASTY (Nose) Nelli Malone MD 01/03/20 0938 01/03/20 1121 Events Date Time Event Comment 01/03/2020 0816 0816 AN Anesthesia Prepped 0923 AN NETWORKING TECHNOLOGY INSTRUCTOR Prepped 0938 An Start Patient ID and [...] Kitty Evans RN 01/03/20 1249 by Rafaela Moya RN ETT Placement Date: 12/21 01/09; Placement Time: 0950; Placed Outside of This Facility?:No; Mask Ventilate: Prior to intubation, Medium; Size (mm) : 8; Endotracheal: Oral, Stylet used; Blade Type: MAC 3; Placement Method: Direct Laryngoscopy (blade type in comment); View Grade: 2; Viewable Anatomy: Epiglottis, Arytenoid; Insertion Attempts: 2 (First attempt w/o stylet.); Placement Verified By: Capnography, Auscultation, Chest Rise; Placed By: NETWORKING TECHNOLOGY INSTRUCTOR; Extubation Assessment: Suctioned, Tolerated well, Patient spontaneously breathing, Able to swallow, Atraumatic, Other (comment) (Coughing); Removal Date: 01/03/20; Removal Time: 1109; Removal Person: NETWORKING TECHNOLOGY INSTRUCTOR; Removal Reason: End of Case 01/03/20 0950 [...] on file 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 BUN 14 7 - 18 MG/DL 01/03/2020 8:[address] [facility] CREATININE S/P/B 1.33(H) 0.7 - 1.3 MG/DL 01/03/2020 8:[address] [facility] SODIUM S/P/B 138 136 - 145 MMOL/L 01/03/2020 8:[address] [facility] POTASSIUM S/P/B 4.4 3.5 - 5.1 MMOL/L 01/03/2020 8:[address] [facility] CHLORIDE S/P/B 108 100 - 108 MMOL/L 01/03/2020 8:[address] [facility] CO2 27.7 21 - 32 MMOL/L 01/03/2020 8:[address] [facility] CALCIUM S/P/B 8.7 8.5 - 10.1 MG/DL 01/03/2020 8:[address] [facility] ANION GAP 2.3(L) 5 - 15 MMOL/L 01/03/2020 8:[address] [facility] BUN CREATININE RATIO 10.5 6 - 26 01/03/2020 8:[address] [facility] EGFR NON-AFR. AMER. 62(L) >90 ML/MIN/1.7 3 M2 01/03/2020 8:[address] [facility] EGFR AFR. AMER. 72(L) >90 ML/MIN/1.7 3 M2 01/03/2020 8:[address] [facility] Comment: NOTE: eGFR is not calculated for patients <18 years of age. This is an estimated GFR (CKD EPI) and should not be used for calculating drug doses. 01/03/2020 7:31 AM CDT Theresa Wilson [facility] Final Resu lt [facility] [address] [place] [id number], * (ABNORMAL) CBC W/DIFF AUTOMATED (01/03/2020 7:31 AM CDT) WBC 6.9 4.5 - 11.0 x10'3/uL 01/03/2020 7:[address] [facility] RBC 6.17(H) 4.70 - 6.10 x10'6/uL 01/03/2020 7:[address] [facility] HGB 16.6 14.0 - 18.0 G/DL 01/03/2020 7:[address] [facility] HCT 52.6 43.0 - 54.0 % 01/03/2020 7:[address] [facility] MCV 85.3 80.0 - 94.0 FL 01/03/2020 7:[address] [facility] MCH 26.9(L) 27.0 - 31.0 PG 01/03/2020 7:[address] [facility] MCHC 31.6(L) 32.0 - 36.0 G/DL 01/03/2020 7:[address] [facility] RDW 13.7 11.5 - 14.5 % 01/03/2020 7:[address] [facility] PLT 343 130 - 400 x10'3/uL 01/03/2020 7:[address] [facility] MPV 9.8 9.3 - 12.2 FL 01/03/2020 7:[address] [facility] DIFFERENTIAL TYPE AUTOMATED DIFFERENTIAL 01/03/2020 7:[address] [facility] NEUTROPHILS % 68.1 % 01/03/2020 7:[address] [facility] LYMPHOCYTES % 18.8 % 01/03/2020 7:[address] [facility] MONOCYTES % 9.3 % 01/03/2020 7:[address] [facility] EOSINOPHILS 2.8 % 01/03/2020 7:[address] [facility] BASOPHILS 0.9 % 01/03/2020 7:[address] [facility] IMMATURE GRANS % 0.1 % 01/03/20 20 7:[address] [facility] ABS. NEUTROPHILS TOTAL 4.67 1.80 - 7.70 x10'3/uL 01/03/2020 7:[address] [facility] ABS. LYMPHOCYTES 1.29 1.00 - 4.80 x10'3/uL 01/03/2020 7:[address] [facility] ABS. MONOCYTES 0.64 0.30 - 0.82 x10'3/uL 01/03/2020 7:[address] [facility] ABS. EOSINOPHILS 0.19 0.04 - 0.54 x10'3/uL 01/03/2020 7:[address] [facility] ABS. BASOPHILS 0.06 0.01 - 0.08 x10'3/uL 01/03/2020 7:[address] [facility] ABS. IMMATURE GRANULOCYTES 0.01 0.00 - 0.49 x10'3/uL 01/03/2020 7:[address] [facility] 01/03/2020 7:31 AM CDT Theresa Wilson [facility] Final Resu lt [facility] [address] [place] [address], documented in this encounter Visit Diagnoses Diagnosis Preop examination- Primary Preoperative examination, unspecified documented in this encounter Care Teams Wound Care Technician Relationship Specialty Start Date End Date Jasiel Freeman MD [address] [place] [phone] PCP - General FAMILY PRACTICE 04/04/19 Nils Pineda MD [facility] [place] [address] OTOLARYNGOLOGY 12/26/19 Annette Sena MD [address] [place] [address] INTERNAL MEDICINE 12/26/19 documented as of this encounter
--- OUTSIDE RECORDS SUMMARY | 2024-10-24 06:34 | XMS_ITS | Encounter Summary ---
Author Organization [facility] Address [facility] [place] [address] [place] [address] Care Team Providers Care Reexaminer Name Role Phone Jasiel Freeman MD Primary Care Provider [phone] Reason for Referral * Procedure (Routine) - Closed Specialty Diagnoses / Procedures Referred By Contac t Referred To Contact Diagnoses Dyspnea on exertion Procedures Complete PFT (pre/post [place], Lung Vol, Diff Capacity) (79850, [address], 81553, 71209) Jasiel Freeman MD [address] [place] [phone] Phone: tel: fax: [address] [address] Phone: tel: Referral ID Status Reason Start Date Expiration Date V isits Requested Visits Authorized [id number] Closed Pulmonary Function Test 04/04/2019 05/04/2020 1 1 Encounter Details Date Type Department Care Team (Late st Contact Info) Description 04/04/2019 Transcribe Orders [facility] Pre Access Team [address] [place] [address] Jasiel Freeman MD [address] [place] [phone] Social History Tobacco Use Types Packs/Day Years Used Date Smoking Tobacco: Never Assessed Sex and Gender Information Value Date Recorded Sex Assigned at Not on file 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 Celia Mckenzie MD [facility] [employer] D: ??05/13/2019 04:41 PM #[id number] T: ??05/13/2019 07:00 PM /NTS us Jasiel Freeman MD PFT ORDERABLES Final Resul t ESCRIPTION documented in this encounter Visit Diagnoses Diagnosis Dyspnea on exertion- Primary Other dyspnea and respiratory abnormality Dyspnea on exertion Other dyspnea and respiratory abnormality documented in this encounter Care Teams Reexaminer Relationship Specialty Start Date End Date Jasiel Freeman MD [address] [place] [phone] PCP - General FAMILY PRACTICE 04/04/19 documented as of this encounter
--- OUTSIDE RECORDS SUMMARY | 2024-10-24 06:34 | XMS_ITS | Encounter Summary ---
Author Organization [facility] Address [address] [place] [address]. [place] [address] [place] [address] Care Team Providers Care International Student Counselor Name Role Phone Jasiel Freeman MD Primary Care Provider Nils Pineda MD Unavailable [phone] JoanieAnthonyAnnette MD Unavailable Reason for Visit * Auth/Cert Specialty Diagnoses / Procedures Referred By Lambert pizarro Referred To Contact Diagnoses DEVIATED SEPTUM, TURBINATE HYPERTROPHY, CHRONIC SINUSITIS J34.2 J34.3 J32.0 Procedures FUSION GUIDED BILATERAL ETHMOIDECTOMY, BILATERAL MAXILLARY ANTROSTOMY, BILATERAL TURBINATE REDUCTION, SEPTOPLASTY Referral ID Status Reason Start Date Expiration Date Visits Re quested Visits Authorized [id number] 1 1 Encounter Details Date Type Department Care Team (Latest Contact Info) Description 01/03/2020 7:21 AM CDT - 01/03/2020 11:59 PM T Hospital Encounter [facility] [place] [address] Nils Pineda MD [address] [place] [address] Discharge Disposition: Home or Self Care (Routine Discharge) Social History Tobacco Use Types Packs/Day Years Used Date Smoking Tobacco: Former Cigarettes 0 12/25/1990 - 12/25/2010 Smokeless Tobacco: Never Alcohol Use Standard Drinks/Week Comments Yes 3 (1 standard drink = 0.6 oz pur e alcohol) Sex and Gender Information Value Date Recorded Sex Assigned at Not on file 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 11/26/2018 vitamin D2, ergocalciferol, 28600 UNITS capsule Take 1 capsule by mouth [...] - 99 MG/DL 01/03/2020 8:00 AM CDT [facility] BUN 14 7 - 18 MG/DL 01/03/2020 8:00 AM CDT [facility] CREATININE S/P/B 1.33(H) 0.7 - 1.3 MG/DL 01/03/2020 8:00 AM CDT [facility] SODIUM S/P/B 138 136 - 145 MMOL/L 01/03/2020 8:00 AM CDT [facility] POTASSIUM S/P/B 4.4 3.5 - 5.1 MMOL/L 01/03/2020 8:00 AM T [facility] CHLORIDE S/P/B 108 100 - 108 MMOL/L 01/03/2020 8:00 AM CDT [facility] CO2 27.7 21 - 32 MMOL/L 01/03/2020 8:00 AM CDT [facility] CALCIUM S/P/B 8.7 8.5 - 10.1 MG/DL 01/03/2020 8:00 AM T [facility] ANION GAP 2.3(L) 5 - 15 MMOL/L 01/03/2020 8:00 AM T [facility] BUN CREATININE RATIO 10.5 6 - 26 01/03/2020 8:00 AM T [facility] EGFR NON-AFR. AMER. 62(L) >90 ML/MIN/1.7 3 M2 01/03/2020 8:00 AM T [facility] EGFR AFR. AMER. 72(L) >90 ML/MIN/1.7 3 M2 01/03/2020 8:00 AM T [facility] Comment: NOTE: eGFR is not calculated for patients <18 years of age. This is an estimated GFR (CKD EPI) and should not be used for calculating drug doses. 01/03/2020 7:31 AM CDT Theresa Wilson [facility] Final Resu lt [facility] [address] [place] [address], [place] [phone] * (ABNORMAL) CBC W/DIFF AUTOMATED (01/03/2020 7:31 AM CDT) [facility] WBC 6.9 4.5 - 11.0 x10'3/uL 01/03/2020 7:42 AM CDT [facility] RBC 6.17(H) 4.70 - 6.10 x10'6/uL 01/03/2020 7:42 AM CDT [facility] HGB 16.6 14.0 - 18.0 G/DL 01/03/2020 7:42 AM CDT [facility] HCT 52.6 43.0 - 54.0 % 01/03/2020 7:42 AM CDT [facility] MCV 85.3 80.0 - 94.0 FL 01/03/2020 7:42 AM CDT [facility] MCH 26.9(L) 27.0 - 31.0 PG 01/03/2020 7:42 AM CDT [facility] MCHC 31.6(L) 32.0 - 36.0 G/DL 01/03/2020 7:42 AM CDT [facility] RDW 13.7 11.5 - 14.5 % 01/03/2020 7:42 AM CDT [facility] PLT 343 130 - 400 x10'3/uL 01/03/2020 7:42 AM CDT [facility] MPV 9.8 9.3 - 12.2 FL 01/03/2020 7:42 AM CDT [facility] DIFFERENTIAL TYPE AUTOMATED DIFFERENTIAL 01/03/2020 7:42 AM CDT [facility] NEUTROPHILS % 68.1 % 01/03/2020 7:42 AM CDT [facility] LYMPHOCYTES % 18.8 % 01/03/2020 7:42 AM CDT [facility] MONOCYTES % 9.3 % 01/03/2020 7:42 AM CDT [facility] EOSINOPHILS 2.8 % 01/03/2020 7:42 AM CDT [facility] BASOPHILS 0.9 % 01/03/2020 7:42 AM CDT [facility] IMMATURE GRANS % 0.1 % 01/03/20 20 7:42 AM CDT [facility] ABS. NEUTROPHILS TOTAL 4.67 1.80 - 7.70 x10'3/uL 01/03/2020 7:42 AM CDT [facility] ABS. LYMPHOCYTES 1.29 1.00 - 4.80 x10'3/uL 01/03/2020 7:42 AM CDT [facility] ABS. MONOCYTES 0.64 0.30 - 0.82 x10'3/uL 01/03/2020 7:42 AM CDT [facility] ABS. EOSINOPHILS 0.19 0.04 - 0.54 x10'3/uL 01/03/2020 7:42 AM CDT [facility] ABS. BASOPHILS 0.06 0.01 - 0.08 x10'3/uL 01/03/2020 7:42 AM CDT [facility] ABS. IMMATURE GRANULOCYTES 0.01 0.00 - 0.49 x10'3/uL 01/03/2020 7:42 AM CDT [facility] 01/03/2020 7:31 AM CDT us Theresa Wilson [facility] Final Resu lt [facility] [address] [place] [address], [place] [phone] documented in this encounter Visit Diagnoses Diagnosis Preop examination Preoperative examination, unspecified documented in this encounter Care Teams International Student Counselor Relationship Specialty Start Date End Date Jasiel Freeman MD [address] [place] [phone] PCP - General FAMILY PRACTICE 04/04/19 Nils Pineda [address] [facility] [address] OTOLARYNGOLOGY 12/26/19 Annette Sena MD [facility] [facility] [address] INTERNAL MEDICINE 12/26/19 documented as of this encounter
--- OUTSIDE RECORDS SUMMARY | 2024-10-24 06:34 | XMS_ITS | Encounter Summary ---
Author Organization [facility] Address [facility] 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
--- OUTSIDE RECORDS SUMMARY | 2024-10-24 06:34 | XMS_ITS | Encounter Summary ---
Author Organization [place] Address [facility] [place] [address] [place] [address] Care Team Providers Care Dental Chair Assembler Name Role Phone Jasiel Freeman MD Primary Care Provider Nils Pineda MD Unavailable [phone] Annette Sena MD Unavailable [phone] Reason for Visit * Auth/Cert Specialty Diagnoses / Procedures Referred By Lambert pizarro Referred To Contact Diagnoses DEVIATED SEPTUM, TURBINATE HYPERTROPHY, CHRONIC SINUSITIS J34.2 J34.3 J32.0 Procedures FUSION GUIDED BILATERAL ETHMOIDECTOMY, BILATERAL MAXILLARY ANTROSTOMY, BILATERAL TURBINATE REDUCTION, SEPTOPLASTY Referral ID Status Reason Start Date Expiration Date Visits Re quested Visits Authorized [id number] 1 1 Encounter Details Date Type Department Care Team (Late st Contact Info) Description 01/03/2020 9:38 AM CDT Anesthesia Event [facility] [place], [place] [address] Nelli Jaimes MD [address] [facility] [address] [address] Theresa Wilson, FURNACE CLERK [address] [place], [place] [phone] Anesthesia Record Procedure Summary Procedure Name Responsible Anesthesiologist Anesthesia Start Time Anesthesia Stop Time FUSION GUIDED BILATERAL ETHMOIDECTOMY, BILATERAL MAXILLARY ANTROSTOMY, BILATERAL TURBINATE REDUCTION, SEPTOPLASTY (Nose) Nelli Malone MD 01/03/20 0938 01/03/20 1121 Events Date Time Event Comment 01/03/2020 0816 0816 AN Anesthesia Prepped [address] ATTENDANT Prepped 0938 An Start Patient ID and [...] By: Capnography, Auscultation, Chest Rise; Placed By: TENNIS COURT ATTENDANT; Extubation Assessment: Suctioned, Tolerated well, Patient spontaneously breathing, Able to swallow, Atraumatic, Other (comment) (Coughing); Removal Date: 01/03/20; Removal Time: 1109; Removal Person: TENNIS COURT ATTENDANT; Removal Reason: End of Case 01/03/20 0950 [...] on file 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 Gender Identity Not on file Sexual Orientation [...] IVPB 2 g, Intravenous, at 200 mL/hr, wire mesh filter fabricator to O.R., 1 dose, First dose on [...] mg documented in this encounter Care Teams Dental Chair Assembler Relationship Specialty Start Date End Date Jasiel Freeman MD [address] [place] [phone] PCP - General FAMILY PRACTICE 04/04/19 Nils Pineda MD [address] [facility] [place] [phone] OTOLARYNGOLOGY 12/26/19 Annette Sena MD [facility] [place] [address] INTERNAL MEDICINE 12/26/19 documented as of this encounter
--- OUTSIDE RECORDS SUMMARY | 2024-10-24 06:34 | XMS_ITS | Encounter Summary ---
Author Organization [facility] Address Critical access hospital6 [facility] 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
--- OUTSIDE RECORDS SUMMARY | 2024-10-24 06:34 | XMS_ITS | Encounter Summary ---
Author Organization [facility] Address [facility] [place] [address] [place] [address] Care Team Providers Care Ad Setter Name Role Phone Jasiel Moise MD Primary Care Provider Aaron Quinones MD Unavailable [phone] Annette Sena MD Unavailable [phone] Reason for Visit * Auth/Cert Specialty Diagnoses / Procedures Referred By Lambert pizarro Referred To Contact Diagnoses DEVIATED SEPTUM, TURBINATE HYPERTROPHY, CHRONIC SINUSITIS J34.2 J34.3 J32.0 Procedures FUSION GUIDED BILATERAL ETHMOIDECTOMY, BILATERAL MAXILLARY ANTROSTOMY, BILATERAL TURBINATE REDUCTION, SEPTOPLASTY Referral ID Status Reason Start Date Expiration Date Visits Re quested Visits Authorized [id number] 1 1 Encounter Details Date Type Department Care Team (Late st Contact Info) Description 01/03/2020 9:00 AM CDT - 01/03/2020 11:19 AM CDT [facility] 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 * Turbinate Reduction Discharge Instructions (Angolan) * Septoplasty Discharge Instructions (Angolan) * Endoscopic Sinus Surgery Discharge Instructions (Angolan) * General Anesthesia Discharge Instructions (Angolan) * Hydrocodone and Acetaminophen, ADULT (Angolan) documented in this encounter Medications at Time [...] every eight weeks. 11/26/2018 vitamin D2, ergocalciferol, 70363 UNITS capsule Take 1 capsule by mouth [...] daily as needed. ??? vitamin D2, ergocalciferol, 33457 UNITS capsule Take 1 capsule by mouth [...] Edgardo Elkins 01/03/2020 Surgeon(s): Aaron Quinones MD Associate Loan Officer: None Pre-Op Diagnosis: DEVIATED SEPTUM, TURBINATE HYPERTROPHY, [...] REDUCTION, SEPTOPLASTY (N/A) Surgeon(s): Aaron Quinones MD Associate Loan Officer: None Anesthesia: General Pre-Op Diagnosis: DEVIATED SEPTUM, [...] phone interview, patient denies having a manager underwriting. Pt states he woke up combative after [...] Thor Leach MD at 12/27/2019 6:54 AM PALS NURSE NURSE NURSE * OR PreOp - Philly Marques RN - 12/26/2019 12:51 PM CST Patient can climb 2 flights of stairs without chest pain or sob. Exercise tolerance the same as it was 6 months ago. Had stress test maybe last year and echo- due to was having sob/drainage from sinus'- all normal-somewhere in [place]- requested results from pcp See cardiac records- media pcp-[facility] Cardio-none States woke up combative after first surgery he had NURSE NURSE NURSE documented in this encounter Plan of [...] Until Mon01/03/20 at 1525, PACU lidocaine-EPINEPHrine 1 %-1:157578 injection As needed, Starting on Mon01/03/20 at [...] spray 2 spray 2 spray, Each Nostril, faculty i on call medical assistant to O.R., 1 dose, First dose on [...] (COMPLETED) 2 g, Intravenous, at 200 mL/hr, faculty i on call medical assistant to O.R., 1 dose, First dose on Mon01/03/20 at 0745, Pre-Op 1000 (New Bag - Prov ider: Bonifacio Craven CRNA)1005 (Infusion Stop Time - Provider: Bonifacio Craven CRNA)1120 (Anesthesia Volume Adjustment - Provider: Bonifacio Craven CRNA) lactated ringers infusion (COMPLETED) at 10 mL/hr, Intravenous, Once, 1 dose, On Mon01/03/20 at 0830 0815 (New Bag - Prov ider: Kitty Evnas RN) ondansetron (ZOFRAN-ODT) disintegrating tablet 4 mg (COMPLETED) 4 mg, Oral, Once, 1 dose, On Mon01/03/20 at 0830 0820 (Given - Provid er: Kitty Evans RN) oxymetazoline (AFRIN) 0.05 % nasal spray 2 spray (COMPLETED) 2 spray, Each Nostril, faculty i on call medical assistant to O.R., 1 dose, First dose on [...] Provid er: Ada Waterman RN) lidocaine-EPINEPHrine 1 %-1:543360 injection (CANCELED) As needed, Starting on Mon01/03/20 [...] Irrigation) documented in this encounter Care Teams Ad Setter Relationship Specialty Start Date End Date Jasiel Moise MD [address] [place] [phone] PCP - General FAMILY PRACTICE 04/04/19 Aaron Quinones MD [facility] [place], [place] [phone] OTOLARYNGOLOGY 12/26/19 Annette Sena MD [facility] [place] [address] INTERNAL MEDICINE 12/26/19 documented as of this encounter
--- OUTSIDE RECORDS SUMMARY | 2024-10-24 06:34 | XMS_ITS | Encounter Summary ---
Author Organization [facility] Address [facility]. [place], [place] [address] [place] [address] Care Team Providers Care Complex Case Manager Name Role Phone Jasiel Freeman MD Primary Care Provider [phone] Reason for Referral * (Routine) - Closed Specialty Diagnoses / Procedures Referred By Lambert pizarro Referred To Contact Diagnoses Dyspnea on exertion Procedures Spirometry with bronchodilator Jasiel Freeman MD [address] [place] [phone] Phone: tel: fax: Referral ID Status Reason Start Date Expiration Date Visits Re quested Visits Authorized [id number] Closed 04/17/2019 05/17/2020 1 1 Reason for Visit * Procedure (Routine) - Closed Specialty Diagnoses / Procedures Referred By Lambert pizarro Referred To Contact Diagnoses Dyspnea on exertion Procedures Complete PFT (pre/post [place], Lung Vol, Diff Capacity) (89341, 98014, 71946, 95324) Jasiel Freeman MD [address] [place] [phone] Phone: tel: fax: [place] [address] Phone: tel: Referral ID Status Reason Start Date Expiration Date V isits Requested Visits Authorized [id number] Closed Pulmonary Function Test 04/04/2019 05/04/2020 1 1 Encounter Details Date Type Department Care Team (Latest Contact Info) Description 04/17/2019 8:00 AM CDT - 04/17/2019 11:59 PM CDT Hospital Encounter [facility] [address] [place] [address] Jasiel Freeman MD [address] [place] [phone] Discharge Disposition: Home or Self Care (Routine Discharge) Social History Tobacco Use Types Packs/Day Years Used Date Smoking Tobacco: Never Assessed Sex and Gender Information Value Date Recorded Sex Assigned at Not on file 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 11/26/2018 vitamin D2, ergocalciferol, 55531 UNITS capsule Take 1 capsule by mouth [...] this encounter Results * Complete PFT (pre/post [place], Lung Vol, Diff Capacity) (24770, 65730, 15949, [address]7528) (05/13/2019 4:41 PM CDT) 05/13/2019 4:41 PM [...] Clinical correlation is required. Celia Mckenzie MD [employer] D: ??05/13/2019 04:41 PM #[id number] T: ??05/13/2019 07:00 PM /NTS us Jasiel [...] mg documented in this encounter Care Teams Complex Case Manager Relationship Specialty Start Date End Date Jasiel Freeman MD [address] [place] [phone] PCP - General FAMILY PRACTICE 04/04/19 documented as of this encounter
--- OUTSIDE RECORDS SUMMARY | 2024-10-24 06:34 | XMS_ITS | Encounter Summary ---
Author Organization [facility] Address [address] [place] [address]. [place] [address] [place] [address] Care Team Providers Care Business Rules Developer Name Role Phone Jasiel Moise MD Primary Care Provider Aaron Quinones MD Unavailable [phone] JoanieAnthonyAnnette MD Unavailable Reason for Visit * Auth/Cert Specialty Diagnoses / Procedures Referred By Lambert pizarro Referred To Contact Diagnoses DEVIATED SEPTUM, TURBINATE HYPERTROPHY, CHRONIC SINUSITIS J34.2 J34.3 J32.0 Procedures FUSION GUIDED BILATERAL ETHMOIDECTOMY, BILATERAL MAXILLARY ANTROSTOMY, BILATERAL TURBINATE REDUCTION, SEPTOPLASTY Referral ID Status Reason Start Date Expiration Date Visits Re quested Visits Authorized [id number] 1 1 Encounter Details Date Type Department Care Team (Latest Contact Info) Description 01/03/2020 7:21 AM CDT - 01/03/2020 1:19 PM T Hospital Encounter [facility] [place] [address] Aaron Quinones MD [address] [place] [phone] Discharge Disposition: Home or Self Care (Routine Discharge) Social History Tobacco Use Types Packs/Day Years Used Date Smoking Tobacco: Former Cigarettes 0 12/25/1990 - 12/25/2010 Smokeless Tobacco: Never Alcohol Use Standard Drinks/Week Comments Yes 3 (1 standard drink = 0.6 oz pur e alcohol) Sex and Gender Information Value Date Recorded Sex Assigned at Not on file 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 * Turbinate Reduction Discharge Instructions (Moroccan) * Septoplasty Discharge Instructions (Moroccan) * Endoscopic Sinus Surgery Discharge Instructions (Moroccan) * General Anesthesia Discharge Instructions (Moroccan) * Hydrocodone and Acetaminophen, ADULT (Moroccan) documented in this encounter Medications at Time [...] every eight weeks. 11/26/2018 vitamin D2, ergocalciferol, 77808 UNITS capsule Take 1 capsule by mouth [...] daily as needed. ??? vitamin D2, ergocalciferol, 40864 UNITS capsule Take 1 capsule by mouth [...] CDT Family updated during the procedure via [employer] fang. documented in this encounter OR Notes * Op Note - Aaron Quinones MD - 01/03/2020 11:01 AM CDT FUSION GUIDED BILATERAL ETHMOIDECTOMY, BILATERAL MAXILLARY ANTROSTOMY, BILATERAL TURBINATE REDUCTION, SEPTOPLASTY Procedure Note Edgardo Elkins 01/03/2020 Surgeon(s): Aaron Quinones MD Medical Detail Representative: None Pre-Op Diagnosis: DEVIATED SEPTUM, TURBINATE HYPERTROPHY, [...] ANTROSTOMY, BILATERAL TURBINATE REDUCTION, SEPTOPLASTY Procedure Note Edgarod Palomino Brittni 01/03/2020 0900 Procedure(s) (LRB): FUSION GUIDED BILATERAL ETHMOIDECTOMY, BILATERAL MAXILLARY ANTROSTOMY, BILATERAL TURBINATE REDUCTION, SEPTOPLASTY (N/A) Surgeon(s): Aaron Quinones MD Medical Detail Representative: None Anesthesia: General Pre-Op Diagnosis: DEVIATED SEPTUM, [...] Per phone interview, patient denies having a anthropology lecturer. Pt states he woke up combative after [...] Thor Leach MD at 12/27/2019 6:54 AM TAILOR APPRENTICE OR APPRENTICE OR APPRENTICE * OR PreOp - Philly Marques RN [...] up combative after first surgery he had OR APPRENTICE OR APPRENTICE OR APPRENTICE documented in this encounter Plan of Treatment Not on file documented as of this encounter Procedures Procedure Name Priority Date/Time Associated Diagnosis Comments ENDOSCOPIC SINUS SURGERY (SINUSCOPY) 01/03/2020 9:38 AM CDT DEVIATED SEPTUM, TURBINATE HYPERTROPHY, CHRONIC SINUSITIS J34.2 J34.3 J32.0 Case Notes SCHED BY FAX ON 12/17/19 [facility] PHONE ASSESS Special Needs FUSION PROTOCOL, [...] spray 2 spray 2 spray, Each Nostril, yardage caller to O.R., 1 dose, First dose on Mon01/03/20 at 0745, Pre-Op Given 01/03/2020 8:13 AM CDT 2 sprays documented in this encounter Active and Recently Administered Medications Times are shown in CDT. Scheduled Medication Order 01/01/2020 01/02/2020 01/03/2020 ceFAZolin (ANCEF) 2 g in sodium chloride 0.9 % 100 mL IVPB (COMPLETED) 2 g, Intravenous, at 200 mL/hr, yardage caller to O.R., 1 dose, First dose on Mon01/03/20 at 0745, Pre-Op 1000 (New Bag - Prov ider: Bonifacio Craven CRNA)1005 (Infusion Stop Time - Provider: Bonifacio Craven CRNA)1120 (Anesthesia Volume Adjustment - Provider: oBnifacio Craven CRNA) lactated ringers infusion (COMPLETED) at [...] 2 spray (COMPLETED) 2 spray, Each Nostril, yardage caller to O.R., 1 dose, First dose on [...] Provid er: Ada Waterman RN) lidocaine-EPINEPHrine 1 %-1:686798 injection (CANCELED) As needed, Starting on Mon01/03/20 [...] Irrigation) documented in this encounter Care Teams Business Rules Developer Relationship Specialty Start Date End Date Jasiel Moise MD [address] [place] [phone] PCP - General FAMILY PRACTICE 04/04/19 Aaron Quinones MD [address] [place], [place] [phone] OTOLARYNGOLOGY 12/26/19 Annette Sena MD [address] [place] [address] INTERNAL MEDICINE 12/26/19 documented as of this encounter
--- OUTSIDE RECORDS SUMMARY | 2024-10-24 06:34 | XMS_ITS | Encounter Summary ---
Author Organization [facility] Address [address] [place] [address]. [place] [address] [place] [address] Care Team Providers Care High School Social Studies Teacher Name Role Phone Unavailable Primary Care Provider Unavailabl e Encounter Details Date Type Department Care Team (Late st Contact Info) Description 03/23/[address] 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
--- OUTSIDE RECORDS SUMMARY | 2024-10-24 06:35 | XMS_ITS | Encounter Summary ---
Author Organization [facility] Address [address] [place] [address] Care Team Providers Care Animal Eviscerator Name Role Phone Jasiel Freeman MD Primary Care Provider Reason for Visit * Reason Onset Date Comments Med Refill 01/23/2024 Encounter Details Date Type Department Care Team (Late st Contact Info) Description 01/23/2024 Telephone [facility] [address] [facility] [address] [place] [address] Kitty Dover, MIRTA [address] [facility] [address] [place] [address] Med Refill Social History Tobacco [...] Description 02/13/2025 10:30 AM CDT Office Visit [facility] Lazaro Wright[address] [facility] [address] [place] [address] Kitty Dover, ANP [address] [facility] [address] [place] [address] Scheduled Orders Name Type Priority Associated Diagnoses Orde r Schedule QUANTIFERON TB GOLD Lab Routine Ulcerative pancolitis with other complication Expected: 01/23/2024, Expires: 01/22/2025 documented as of this encounter Visit Diagnoses Diagnosis Ulcerative pancolitis with other complication- Primary documented in this encounter Additional Health Concerns Assessment Noted Time PHQ-9 Depression Total Score: 2 12/08/19 23 11:00 AM ADVERTISING COORDINATOR documented as of this encounter Care Teams Animal Eviscerator Relationship Specialty Start Date End Date Jasiel Freeman MD [address] [place] [phone] PCP - General Family Practice 08/15/17 documented as of this encounter
--- OUTSIDE RECORDS SUMMARY | 2024-10-24 06:35 | XMS_ITS | Encounter Summary ---
Author Organization [facility] Address [address] [place] [address] Care Team Providers Care Pigment Pumper Name Role Phone Jasiel Freeman MD Primary [...] [place] [address] [place] [address] Kitty Dover, MIRTA [address] [place] [address] documented as of this encounter Visit Diagnoses Not on filedocumented in this encounter Additional Health Concerns Assessment Noted Time PHQ-9 Depression Total Score: 2 12/08/19 23 11:00 AM SUPERVISOR VACUUM METALIZING documented as of this encounter Care Teams Pigment Pumper Relationship Specialty Start Date End Date Jasiel Freeman MD [address] [place] [address] PCP - General Family Practice 08/15/17 documented as of this encounter
--- OUTSIDE RECORDS SUMMARY | 2024-10-24 06:35 | XMS_ITS | Encounter Summary ---
Author Organization [facility] Address [address] [place] [address] Care Team Providers Care Assistant Pastry Chef Name Role Phone Jasiel Freeman MD Primary Care Provider Encounter Details Date Type Department Care Team (Late st Contact Info) Description 12/12/2022 Specialty Pharmacy [facility] - [address] [place] [address] Belen Matt PHARMACIST Social History [...] Coronavirus/COVID-19? No / Unsure 12/08/2022 10:51 AM PEDIATRIC DENTAL ASSISTANT documented as of this encounter Progress Notes * Belen Matt PHARMACIST - 12/09/2022 8:30 AM CST [facility] Patient Name: Edgardo [...] orders: No labs needed/ordered Nursing Provided by [facility] Therapy Specific Skyrizi Antibody formation: Formation of [...] Logistics Information for this assessment provided by CloudWork record + patient HIPAA contact identified? No Any changes to prescription/medical insurance or copay assistance? No Patient requires delivery to cover through 12/12/22 Pharmacy to send Skyrizi + IV supplies Delivery date: deliver 12/06/22 via same day metal hardener Specific delivery Instructions: Permission to leave delivered [...] of complications Prevention of adverse drug events ATRIC DENTAL ASSISTANT documented in this encounter Plan of Treatment Upcoming Encounters Date Type Department Care Team (Late st Contact Info) Description 02/13/2025 10:30 AM CDT Office Visit [facility] [place] [address] [place] [address] Kitty Dover, MIRTA [address] [place] [address] documented as of this encounter Visit Diagnoses Not on filedocumented in this encounter Additional Health Concerns Assessment Noted Time PHQ-9 Depression Total Score: 2 12/08/19 23 11:00 AM PEDIATRIC DENTAL ASSISTANT documented as of this encounter Care Teams Assistant Pastry Chef Relationship Specialty Start Date End Date Jasiel Freeman MD [address] [place] [address] PCP - General Family Practice 08/15/17 documented as of this encounter
--- OUTSIDE RECORDS SUMMARY | 2024-10-24 06:35 | XMS_ITS | Encounter Summary ---
Author Organization [facility] Address [address] [place] [address] Care Team Providers Care Fixed Route Bus Operator Name Role Phone Jasiel Freeman MD Primary Care Provider Reason for Visit * Reason Onset Date Comments Results 12/12/2022 Encounter Details Date Type Department Care Team (Late st Contact Info) Description 12/12/2022 Telephone [facility] [address] [address] Annette Whitney MD [address] [facility] [address] [place] [address] Results Social History Tobacco Use Types Packs/Day [...] Coronavirus/COVID-19? No / Unsure 12/09/2022 1:02 PM ROTARY DRILLER HELPER documented as of this encounter Miscellaneous Notes * Telephone Encounter - Nilda Anne - 12/12/2022 3:24 PM CST Called patient and went over doctors response and is with understanding RY DRILLER HELPER * Telephone Encounter - Nilda Anne - 12/12/2022 3:24 PM CST Annette Whitney MD sent to Nilda Anne Caller: Unspecified (Today, 9:16 AM) He may take 2 immodium (crushed) 4 times daily RY DRILLER HELPER * Telephone Encounter - Nilda Anne - 12/12/2022 2:06 PM CST Called patient and went over how he was doing. Doing a better still using the bathroom up to 8 times a day, still watery, Will get about 4 hours of sleep then will be up and down for a few hours. RY DRILLER HELPER * Telephone Encounter - Annette Whitney MD - 12/12/2022 9:16 AM ROTARY DRILLER HELPER Please call and check on symptoms. C. Diff negative.Needs repeat LFTs this week- mon/th. RY DRILLER HELPER documented in this encounter Plan of Treatment Upcoming Encounters Date Type Department Care Team (Late st Contact Info) Description 02/13/2025 10:30 AM CDT Office Visit [facility] [place] [address] [place] [address] Kitty Dover, MIRTA [address] [place] [address] documented as of this encounter Visit Diagnoses Not on filedocumented in this encounter Additional Health Concerns Assessment Noted Time PHQ-9 Depression Total Score: 2 12/08/19 23 11:00 AM ROTARY DRILLER HELPER documented as of this encounter Care Teams Fixed Route Bus Operator Relationship Specialty Start Date End Date Jasiel Freeman MD [address] [place] [phone] PCP - General Family Practice 08/15/17 documented as of this encounter
--- OUTSIDE RECORDS SUMMARY | 2024-10-24 06:35 | XMS_ITS | Encounter Summary ---
Author Organization [facility] Address [address] [place] [address] Care Team Providers Care Weld Engineer Name Role Phone Jasiel Freeman MD Primary Care Provider Reason for Referral * Radiology Services (Routine) - Closed Specialty Diagnoses / Procedures Referred By Contac t Referred To Contact Diagnoses Elevated LFTs Procedures US LIVER Jailene Whitney MD [address] [facility] [place] [address] Referral ID Status Reason Start Date Expiration Date Visits Re quested Visits Authorized [id number] Closed 12/09/2022 01/09/2024 1 1 GE COORDINATOR Reason for Visit * Reason Onset Date Comments Results 12/09/2022 Encounter Details Date Type Department Care Team (Late st Contact Info) Description 12/09/2022 Telephone [facility] [address] [address] Jailene Whitney MD [address] [facility] [place] [address] Results Social History Tobacco Use [...] Coronavirus/COVID-19? No / Unsure 12/15/2022 2:36 PM CHANGE COORDINATOR documented as of this encounter Miscellaneous Notes * Telephone Encounter - Nilda Anne - 12/21/2022 2:18 PM CST Giovanni Reynoso, You can now call your home health nurse and schedule your next infusion. Nilda Barone Lead Radiology Special Procedure Tech [facility]astro[facility]ology [phone] (Fax) GE COORDINATOR * Addendum Note - Jailene Whitney MD - 12/21/2022 7:50 AM CSTAddended by: JAILENE WHITNEY on: 12/21/2022 07:50 AM Modules accepted: Orders GE COORDINATOR * Telephone Encounter - Jailene Whitney MD - 12/21/2022 7:47 AM CHANGE COORDINATOR Liver tests and US look better. We can do skirizi #2. Please repeat hepatic panel in 3 weeks. Please let us know if back pain again after infusion. GE COORDINATOR * Telephone Encounter - Joselyn Gore RN - 12/09/2022 11:52 AM CHANGE COORDINATOR Patient called back in. We went over plan, he is agreeable. He is headed back to [facility] right now to drop off his stool sample for cdiff test. Wants to report the hyoscyamine has helped the abd cramps, but he is still having frequently waterydiarrheas this AM which is preventing him from going to work. GE COORDINATOR * Telephone Encounter - Joselyn Gore RN - 12/09/2022 11:28 AM CHANGE COORDINATOR Called, no answer. Sending Nomios. Message sent to home infusion team. GE COORDINATOR * Telephone Encounter - Jailene Whitney MD - 12/09/2022 9:24 AM CHANGE COORDINATOR Can you call and let him know that liver tests are still a little bit elevated. I recommend we 1) HOLD skirizi for 1 week (until we repeat labs and get ultrasound) 2) Repeat labs in 1 week 3) Ultrasound of the liver GE COORDINATOR documented in this encounter Plan of Treatment Upcoming Encounters Date Type Department Care Team (Late st Contact Info) Description 02/13/2025 10:30 AM CDT Office Visit [facility] [place] [address] [place] [address] Kitty Dover, MIRTA [address] [place] [address] documented as of this encounter Procedures Procedure Name Priority Date/Time Associated Diagnosis Comments TEST [facility] Routine 01/20/2023 12:2 2 PM CDT HEPATIC FUNCTION PANEL Routine 01/20/2023 12:22 PM CDT Elevated LFTs HEPATITIS B SURFACE ANTIGEN Routine 12/14/2022 9:41 AM CHANGE COORDINATOR Elevated LFTs HEPATITIS A IGM Routine 12/14/2022 9:41 AM CHANGE COORDINATOR Elevated LFTs ALKALINE PHOSPHATASE ISOENZYMES Routine 12/14/2022 9:41 AM CHANGE COORDINATOR Elevated LFTs HEPATIC FUNCTION PANEL Routine 12/14/2022 9:41 AM CHANGE COORDINATOR Elevated LFTs documented in this encounter Results * TEST [facility] (01/20/2023 12:22 PM CDT) Pathologist [facility] REPORT/SPECIMEN COMMENT [facility] Comment: Whole blood, unspun or partially spun gel barrier tube was received more than 6 hours since collection. A false elevation of K, Phos and LD as well as a false decrease in glucose may occur due to prolonged contact with red cells. Test Performed at: [facility] [address] [place], [place] ??[address] Conner Darby MD 01/20/2023 12:2 2 PM CDT 01/20/2023 12:23 PM CDT Jailene Whitney MD [facility] Organization Address City/State/ZIP Co de Phone Number [facility] [phone] [facility] [address] [place] [address] * HEPATIC FUNCTION PANEL (01/20/2023 12:22 PM [...] [facility] Comment: Test Performed at: [facility] [address] [place], [place] ??[address] Conner Darby MD Blood 01/20/2023 12:2 2 PM CDT 01/20/2023 12:23 PM CDT Jailene Whitney MD CHEMISTRY ORDE SHREYAS [facility] [phone] [facility] [address] [place] [address] * US LIVER (12/15/2022 3:44 PM CHANGE COORDINATOR) Anatomical Region Laterality Modality Abdomen Ultrasound 12/15/2022 3:53 PM CHANGE COORDINATOR Impressions 12/15/2022 4:08 PM CHANGE COORDINATOR IMPRESSION: 1. Cholelithiasis without sonographic evidence of acute cholecystitis. 2. Incidentally noted 6 mm nonobstructing stone in the midpole right kidney. DICTATION LOCATION: Location [address] [place] [address] Narrative 12/15/2022 4:08 PM CHANGE COORDINATOR EXAMINATION: LIMITED ABDOMINAL SONOGRAM ?? DATE: 12/15/2022 [...] right kidney. DICTATION LOCATION: Location 1 - [facility] Jailene Whitney MD ORDERABLES * HEPATITIS A IGM (12/14/2022 9:41 AM CHANGE COORDINATOR) HEPATITIS A IGM NON-REACTI VE NON-REACTI VE [facility] Comment: For additional information, please refer to http://education.[employer]/faq/MJK227 (This link is being provided for informational/ educational purposes only.) FASTING:YES FASTING: YES Test Performed at: [facility] [address] [place] ??[address] Conner Darby MD Blood 12/14/2022 9:41 AM CHANGE COORDINATOR 12/14/2022 9:42 AM CHANGE COORDINATOR Jailene Whitney MD CHEMISTRY ORDToño PRITCHETT Performing Organization Address City/[facility]/ZIP Co de Phone Number [facility] [phone] [facility] [address] * HEPATITIS B SURFACE ANTIGEN (12/14/2022 9:41 AM CHANGE COORDINATOR) [facility] HEPATITIS B SURFACE AG NON-REACTI VE NON-REACTI VE [facility] Comment: FASTING:YES FASTING: YES Test Performed at: [facility] ??[address] Conner Darby MD Blood 12/14/2022 9:41 AM CHANGE COORDINATOR 12/14/2022 9:42 AM CHANGE COORDINATOR Jailene Whitney MD CHEMISTRY ORDE SHREYAS Performing Organization Address [facility] Co de Phone Number [facility] [phone] [facility] [address] [place] [address] * (ABNORMAL) HEPATIC FUNCTION PANEL (12/14/2022 9:41 AM CHANGE COORDINATOR) Pathologist [facility] TOTAL PROTEIN 7.0 6.1 - 8.1 g/dL [...] Comment: FASTING:YES FASTING: YES Test Performed at: [facility] [address] [place], [place] ??[address] Conner Darby MD Blood 12/14/2022 9:41 AM CHANGE COORDINATOR 12/14/2022 9:42 AM CHANGE COORDINATOR Jailene Whitney MD [facility] [phone] [facility] [address] [place] [address] * (ABNORMAL) ALKALINE PHOSPHATASE ISOENZYMES (12/14/2022 9:41 AM CHANGE COORDINATOR) ALKALINE PHOSPHATASE 191(H) 35 - 144 U/L [facility], INTESTINAL ISOENZYMES 0(L) 1 - 24 % [facility], BONE ISOENZYME 35 28 - 66 % [facility], LIVER ISOENZYMES 65 25 - 69 % [facility], Comment: Increased intestinal alkaline phosphatase can be seen in blood group O and B secretors and after fatty meals. PLACENTAL ISOENZYME 0 0 % [facility], Comment: FASTING:YES FASTING: YES Test Performed at: [facility], [address] [facility], [place] ??[phone] Kim Cancino MD,PhD,KATHRYN Blood 12/14/2022 9:41 AM CHANGE COORDINATOR 12/14/2022 9:42 AM CHANGE COORDINATOR Jailene Whitney MD CHEMISTRY SHELBY PRITCHETT [facility] [phone] [facility], [address] [place] [address] documented in this encounter Visit Diagnoses Diagnosis Elevated LFTs- Primary Other abnormal blood chemistry Elevated LFTs Other abnormal blood chemistry documented in this encounter Additional Health Concerns Infection Onset Date Last Indicated Resolved Time R/O C. diff 12/11/2022 12/09/2022 12/11/2022 1:26 PM CHANGE COORDINATOR Assessment Noted Time PHQ-9 Depression Total Score: 2 12/08/19 23 11:00 AM CHANGE COORDINATOR documented as of this encounter Care Teams Weld Engineer Relationship Specialty Start Date End Date Jasiel Freeman MD [address] [place] [phone] PCP - General Family Practice 08/15/17 documented as of this encounter
--- OUTSIDE RECORDS SUMMARY | 2024-10-24 06:35 | XMS_ITS | Encounter Summary ---
Author Organization [facility] Address [address] [place] [address] Care Team Providers Care Blacking Wheel Tender Name Role Phone Jasiel Freeman MD Primary Care Provider [phone] Reason for Visit * Reason Onset Date Comments Home Visit 10/18/2022 Encounter Details Date Type Department Care Team (Late st Contact Info) Description 10/18/2022 Patient Outreach [facility] - [address] [place] [address] Irina Wyatt, RN Home Visit [...] Comments Blood Pressure 130/85 10/18/2022 2:50 PM RADIO REPAIRER DOMESTIC Pulse 94 10/18/2022 2:50 PM RADIO REPAIRER DOMESTIC Temperature 37.6 ??C (99.6 ??F) 10/18/2022 2:10 PM CS T Respiratory Rate 16 10/18/2022 2:50 PM RADIO REPAIRER DOMESTIC Oxygen Saturation 96% 10/18/2022 2:10 PM RADIO REPAIRER DOMESTIC Inhaled Oxygen Concentration - - Weight - - Height - - Body Mass Index - - documented in this encounter Miscellaneous Notes * Telephone Encounter - Irina Wyatt RN - 10/18/2022 9:02 PM CST Images from the original note were not included. [facility] Home Infusion NURSING follow up Leonidas Elkins 1970 [address] [facility] [address] Provider - Irina Wyatt RN 10/18/2022 Visit [...] yes Pt informed on importance of notifying [facility] immediately if any unexpected insurance [...] reactions. Patient knows how to reorder medications. [facility] will dispense [...] in approximately 4 weeks for Entyvio infusion O REPAIRER DOMESTIC documented in this encounter Plan of Treatment Upcoming Encounters Date Type Department Care Team (Late st Contact Info) Description 02/13/2025 10:30 AM CDT Office Visit [facility] [place] [address] [place] [address] Kitty Dover ANP [address] [place] [address] documented as of this encounter Visit Diagnoses Not on filedocumented in this encounter Care Teams Blacking Wheel Tender Relationship Specialty Start Date End Date Jasiel Freeman MD [address] [place] [phone] PCP - General Family Practice 08/15/17 documented as of this encounter
--- OUTSIDE RECORDS SUMMARY | 2024-10-24 06:35 | XMS_ITS | Encounter Summary ---
Author Organization [facility] Address [address] [facility] [facility] [address] Avila: [place] [address] Care Team Providers Care Press Tool Maker Name Role Phone Jasiel Freeman MD [...] Coronavirus/COVID-19? No / Unsure 12/15/2022 2:36 PM SHEET METAL INSTALLER documented as of this encounter Plan of Treatment Upcoming Encounters Date Type Department Care Team (Late st Contact Info) Description 02/13/2025 10:30 AM CDT Office Visit [facility]astro[facility] [place] [address] [place] [address] Kitty Dover, ANP [address] [phone] documented as of this encounter Visit Diagnoses Not on filedocumented in this encounter Additional Health Concerns Assessment Noted Time PHQ-9 Depression Total Score: 2 12/08/19 23 11:00 AM SHEET METAL INSTALLER documented as of this encounter Care Teams Press Tool Maker Relationship Specialty Start Date End Date Jasiel Freeman MD [address] [place] [phone] PCP - General Family Practice 08/15/17 documented as of this encounter
--- OUTSIDE RECORDS SUMMARY | 2024-10-24 06:35 | XMS_ITS | Encounter Summary ---
Author Organization [facility] Address [address] [place] [address] Care Team Providers Care Logging Worker Name Role Phone Jasiel Freeman MD Primary Care Provider [phone] Reason for Visit * Reason Comments Follow Up Encounter Details Date Type Department Care Team (Latest Contact Info) Description 12/08/2022 11:00 AM MANAGER PERFORMANCE IMPROVEMENT Office Visit [facility] [address] [phone] Annette Whitney MD [address] [facility] [address] [place] [address] Crohn's disease with fistula, unspecified gastrointestinal tract [...] Coronavirus/COVID-19? No / Unsure 12/15/2022 2:36 PM MANAGER PERFORMANCE IMPROVEMENT documented as of this encounter Last Filed Vital Signs Vital Sign Reading Time Taken Comments Blood Pressure 138/87 12/08/2022 11:04 AM MANAGER PERFORMANCE IMPROVEMENT Pulse 96 12/08/2022 11:04 AM MANAGER PERFORMANCE IMPROVEMENT Temperature 37.2 ??C (99 ??F) 12/08/2022 11:04 AM MANAGER PERFORMANCE IMPROVEMENT Respiratory Rate - - Oxygen Saturation 96% 12/08/2022 11:04 AM MANAGER PERFORMANCE IMPROVEMENT Inhaled Oxygen Concentration - - Weight 84.6 kg (186 lb 6.4 oz) 12/08/2022 11:04 AM MANAGER PERFORMANCE IMPROVEMENT Height 175.3 cm (5' 9 ) 12/08/2022 11:04 AM MANAGER PERFORMANCE IMPROVEMENT Body Mass Index 27.53 12/08/2022 11:04 AM MANAGER PERFORMANCE IMPROVEMENT documented in this encounter Progress Notes * Annette Whitney MD - 12/08/2022 11:15 AM CST [facility] Annette Whitney MD [...] [facility]. [facility] [...] Hasflare after antibiotics and change to skyrizi. [facility] paperwork updated today. Check c. Diff, [...] 12/08/2009 COLONOSCOPY performed by LOUISE RIZO at [facility] [place] COLONOSCOPY FLX DX W/COLLJ SPEC WHEN PFRMD 06/09/2014 COLONOSCOPY performed by Lane Ryan MD at [facility] [place] DILAT RCT STRIX SPX UNDER ANES OTH/THN LOCAL 06/12/2012 RECTAL STRICTURE DILATATION performed by Lane Ryan MD at [facility] [place] ENDOSCOPY UPPER SMALL INTESTINE 06/12/2012 SMALL BOWEL ENTEROSCOPY performed by Lane Ryan MD at [facility] MI ENDOSCOPY UPPER SMALL INTESTINE N/A 08/24/2017 SMALL BOWEL ENTEROSCOPY performed by Lane Ryan MD at [facility] [place] ENDOSCOPY UPPER SMALL INTESTINE W/BIOPSY 02/28/2012 BOWEL SMALL BIOPSY ENDOSCOPIC performed by Lane Ryan MD at [facility] MI ESOPHAGOGASTRODUODENOSCOPY TRANSORAL DIAGNOSTIC 02/28/2012 ESOPHAGOGASTRODUODENOSCOPY performed by Lane Ryan MD at [facility] [place] NDSC EVAL INTSTINAL POUCH DX W/COLLJ SPEC SPX 02/16/2012 POUCHOSCOPY performed by Louise Rizo MD at [facility] MI NDSC EVAL INTSTINAL POUCH DX W/COLLJ SPEC SPX N/A 08/15/2022 POUCHOSCOPY performed by Annette Whitney MD at [facility] MI SIGMOIDOSCOPY FLX DX W/COLLJ SPEC BR/WA IF PFRMD 02/16/2012 SIGMOIDOSCOPY FLEXIBLE performed by Louise Rizo MD at [facility] MI SIGMOIDOSCOPY FLX DX W/COLLJ SPEC BR/WA IF PFRMD N/A 06/12/2020 CHECKOUT SIGMOIDOSCOPY FLEXIBLE performed by Annette Whitney MD at [facility] Family History Problem Relation Name Age of Onset Heart Disease Father Hypertension Mother Healthy Sister Healthy Brother Colon Cancer Neg Hx Social History Socioeconomic History Marital status: Spouse name: Not on file Number of children: Not on file Years of education: Not on file Highest education level: Not on file Occupational History Employer: [employer] Employer: [employer] Tobacco Use Smoking status: [...] active enteritis. Pertinent Imaging: Annette Whitney MD [facility] CC: Jasiel Freeman MD [...] Annette Whitney MD - 12/08/2022 11:26 AM MANAGER PERFORMANCE IMPROVEMENT Thank you for entrusting your healthcare to the physicians at [facility] IMPORTANT: The [...] may receive a survey via email or [employer]. Dr. Nair encourages you to respond to this confidential survey about your care. If you received excellent care, Dr. Nair would appreciate your evaluation. Your feedback helps us to provide quality service at every visit. Thank youfor your help in making our practice meet the highest expectations! [facility] If you have IBD, this is the preferredoffice to contact. [address] [place] [address] Other important numbers to add to our contact info: After hours physician exchange: [phone] or MRI: Call [phone] To schedule an EGD/Colon/Flex Sig: Call [phone] We are committed to your wellness. Inflammatory [...] by your primary care physician or a lease out man as patientswith IBD are at increased risk of skin cancer, moreso if on immunosuppressant medications. Bone health - IBD can weaken your bones. We recommend Calcium 1031-4027 mg daily, and vitamin D 800-1000 IU [...] COVID Vaccine plus booster (mRNA is preferred) GER PERFORMANCE IMPROVEMENT documented in this encounter Plan of Treatment Upcoming Encounters Date Type Department Care Team (Late st Contact Info) Description 02/13/2025 10:30 AM CDT Office Visit [facility] [place] [address] [facility] [address] [place] [address] Kitty Dover ANP [address] [facility] [address] [place] [address] documented as of this encounter Procedures Procedure Name Priority Date/Time Associated Diagnosis Comments C. DIFFICILE DETECTION Routine 12/09/2022 12:19 PM MANAGER PERFORMANCE IMPROVEMENT Abnormal LFTs (liver function tests) Acute diarrhea VITAMIN B12 AND FOLATE Routine 12/08/2022 12:33 PM MANAGER PERFORMANCE IMPROVEMENT Abnormal LFTs (liver function tests) Ulcerative pancolitis with other complication VITAMIN D 25 HYDROXY Routine 12/08/2022 12:33 PM MANAGER PERFORMANCE IMPROVEMENT Abnormal LFTs (liver function tests) Ulcerative pancolitis with other complication CK Routine 12/08/2022 12:33 PM MANAGER PERFORMANCE IMPROVEMENT Abnormal LFTs (liver function tests) HEPATIC FUNCTION PANEL Routine 12/08/2022 12:33 PM MANAGER PERFORMANCE IMPROVEMENT Abnormal LFTs (liver function tests) BASIC METABOLIC PANEL Routine 12/08/2022 12:33 PM MANAGER PERFORMANCE IMPROVEMENT Abnormal LFTs (liver function tests) Ulcerative pancolitis with other complication documented in this encounter Results * C. DIFFICILE DETECTION (12/09/2022 12:19 PM MANAGER PERFORMANCE IMPROVEMENT) C DIFFICILE TOXIN B QUAL NOT DETECTED NOT DETECTED [facility] Comment: This test is for use only with liquid or soft stools; performance characteristics of other clinical specimen types have not been established. This assay was performed by [employer])(R) PCR. The performance characteristics of this assay have been determined by [facility]. Performance characteristics refer to the analytical performance of the test. For additional information, please refer to http://education.[employer]/faq/KAL206 (This link is being provided for informational/educational purposes only.) Test Performed at: [facility] [address] [place], [place] ??[address] Conner Darby MD Stool STOOL SPECIMEN / Unknown 12/09/2022 12:19 PM MANAGER PERFORMANCE IMPROVEMENT 12/10/2022 3:37 AM MANAGER PERFORMANCE IMPROVEMENT Annette Whitney MD MICROBIOLOGY - GENERAL ORDERABLES Performing Organization Address City/State/[facility] Co de Phone Number [facility] [phone] [employer] [address] [place] [address] * BASIC METABOLIC PANEL (12/08/2022 12:33 PM MANAGER PERFORMANCE IMPROVEMENT) Pathologist [facility] GLUCOSE 77 65 - 99 mg/dL [facility] Comment: ? Fasting reference interval BUN 20 7 - 25 mg/dL [facility] CREATININE 1.16 0.70 - 1.30 mg/dL [facility] GFR 76 > OR = 60 mL/min/1. 73m2 [facility] Comment: The eGFR is based on the CKD-EPI 2020 equation. To calculate the new eGFR from a previous Creatinine or Cystatin C result, go to https://www.kidney.org/professionals/ kdoqi/gfr%5Fcalculator BUN/CREAT RATIO NOT APPLICABLE 6 (calc) [facility] SODIUM 139 135 - 146 mmol/L [facility] POTASSIUM 4.6 3.5 - 5.3 mmol/L [facility] CHLORIDE 105 98 - 110 mmol/L [facility] CO2 29 20 - 32 mmol/L [facility] CALCIUM 8.6 8.6 - 10.3 mg/dL [facility] Comment: Test Performed at: [facility] ??[address] Conner Darby MD Blood 12/08/2022 12:3 3 PM MANAGER PERFORMANCE IMPROVEMENT 12/08/2022 12:34 PM MANAGER PERFORMANCE IMPROVEMENT Annette Whitney MD CHEMISTRY OR[facility] [phone] [facility] [address] * VITAMIN D 25 HYDROXY (12/08/2022 12:33 PM MANAGER PERFORMANCE IMPROVEMENT) VITAMIN D, 25 OH, TOTAL 46 30 - 100 ng/mL [facility] Comment: Vitamin D Status ? 25-OH Vitamin D: Deficiency: ?<20 ng/mL Insufficiency: ? 20 - 29 ng/mL Optimal: ? > or = 30 ng/mL For 25-OH Vitamin D testing on patients on D2-supplementation and patients for whom quantitation of D2 and D3 fractions is required, the [facility]() 25-OH VIT D, (D2,D3), LC/MS/MS is recommended: order code 60626 (patients >2yrs). See Note 1 Note 1 For additional information, please refer to http://education.[employer]/faq/MJG182 (This link is being provided for informational/ educational purposes only.) Test Performed at: [facility] ??[address] Conner Darby MD Blood 12/08/2022 12:3 3 PM MANAGER PERFORMANCE IMPROVEMENT 12/08/2022 12:34 PM MANAGER PERFORMANCE IMPROVEMENT Annette Whitney MD CHEMISTRY SHELBY PRITCHETT Performing Organization Address City/State/[facility] Co de Phone Number [facility] [phone] [address] * VITAMIN B12 AND FOLATE (12/08/2022 12:33 PM MANAGER PERFORMANCE IMPROVEMENT) VITAMIN B12 654 200 - 1100 pg/mL [facility] FOLATE, SERUM 9.3 ng/mL [facility] Comment: ? Reference Range ? Low: ? <3.4 ? Borderline: ?3.4-5.4 ? Normal: ?>5.4 Test Performed at: [facility] ??[address] Conner Darby MD Blood 12/08/2022 12:3 3 PM MANAGER PERFORMANCE IMPROVEMENT 12/08/2022 12:34 PM MANAGER PERFORMANCE IMPROVEMENT Annette Whitney MD CHEMISTRY ORDToño PRITCHETT Performing Organization Address City/[facility]/ZIP Co de Phone Number [facility] [phone] [facility] [address] [place] [phone] * CK (12/08/2022 12:33 PM MANAGER PERFORMANCE IMPROVEMENT) Pathologist [facility] CK 69 44 - 196 U/L [facility] Comment: Test Performed at: [facility] ??[address] Conner Darby MD Blood 12/08/2022 12:3 3 PM MANAGER PERFORMANCE IMPROVEMENT 12/08/2022 12:34 PM MANAGER PERFORMANCE IMPROVEMENT Annette Whitney MD CHEMISTRY [facility] Performing Organization Address [facility] Co de Phone Number [facility] [phone] [facility] Hospital[facility] [address] * (ABNORMAL) HEPATIC FUNCTION PANEL (12/08/2022 12:33 PM MANAGER PERFORMANCE IMPROVEMENT) Pathologist [facility] TOTAL PROTEIN 6.7 6.1 - 8.1 g/dL [...] [facility] Comment: Test Performed at: [facility] [address] [place], [place] ??[address] Conner Darby MD Blood 12/08/2022 12:3 3 PM MANAGER PERFORMANCE IMPROVEMENT 12/08/2022 12:34 PM MANAGER PERFORMANCE IMPROVEMENT Annette Whitney MD CHEMISTRY SHELBY PRITCHETT [facility] Organization Address City/State/ZIP Co de Phone Number [facility] [phone] [facility] [address] [place] [address] documented in this encounter Visit Diagnoses Diagnosis [...] C. diff 12/11/2022 12/09/2022 12/11/2022 1:26 PM MANAGER PERFORMANCE IMPROVEMENT Assessment Noted Time PHQ-9 Depression Total Score: 2 12/08/19 23 11:00 AM MANAGER PERFORMANCE IMPROVEMENT documented as of this encounter Care Teams Logging Worker Relationship Specialty Start Date End Date Jasiel Freeman MD [address] [place] [phone] PCP - General Family Practice 08/15/17 documented as of this encounter
--- OUTSIDE RECORDS SUMMARY | 2024-10-24 06:35 | XMS_ITS | Encounter Summary ---
Author Organization [facility] Address [address] [place] [address] Care Team Providers Care Webbing Inspector Name Role Phone Jasiel Freeman MD Primary Care Provider Reason for Visit * Reason Onset Date Comments Home Visit 11/15/2022 Marley Encounter Details Date Type Department Care Team (Late st Contact Info) Description 11/15/2022 Patient Outreach [facility] Specialty [facility] Home Infusion - [address] [place] [address] Ebony Cruz, RN Home Visit [...] Comments Blood Pressure 138/86 11/15/2022 5:00 PM LINEN GRADER Pulse 81 11/15/2022 5:45 PM LINEN GRADER Temperature 37.2 ??C (99 ??F) 11/15/2022 5:45 PM LINEN GRADER Respiratory Rate 16 11/15/2022 5:45 PM LINEN GRADER Oxygen Saturation 96% 11/15/2022 5:45 PM LINEN GRADER Inhaled Oxygen Concentration - - Weight - - Height - - Body Mass Index - - documented in this encounter Miscellaneous Notes * Telephone Encounter - Ebony Cruz RN - 11/16/2022 12:19 AM CST Images from the original note were not included. [facility] Pharmacy Home Infusion NURSING [facility] Infusion Edgardo Georgette Elkins [address] [facility] [address] Ebony Cruz RN 11/15/2022 Visit start 1630 [...] Yes Pt informed on importance of notifying [facility] immediately if [...] Psychiatric: normal mood and affect. Pain: 1. [facility] assessment and [...] reactions. Patient knows how to reorder medications. [facility]fusion [...] in approximately 4 weeks for Skyrizi infusion N GRADER documented in this encounter Plan of Treatment Upcoming Encounters Date Type Department Care Team (Late st Contact Info) Description 02/13/2025 10:30 AM CDT Office Visit [facility] [place] [address] [place] [address] Kitty Dover, MIRTA [address] [place] [address] documented as of this encounter Visit Diagnoses Not on filedocumented in this encounter Care Teams Webbing Inspector Relationship Specialty Start Date End Date Jasiel Freeman MD [address] [place] [phone] PCP - General Family Practice 08/15/17 documented as of this encounter
--- OUTSIDE RECORDS SUMMARY | 2024-10-24 06:35 | XMS_ITS | Encounter Summary ---
Author Organization [facility] Address [address] [place] [address] Care Team Providers Care Wealth Management Manager Name Role Phone Jasiel Freeman MD Primary Care Provider [phone] Encounter Details Date Type Department Care Team [...] [place] [address] [place] [address] Kitty Dover, MIRTA [address] [place] [address] documented as of this encounter Visit Diagnoses Not on filedocumented in this encounter Additional Health Concerns Assessment Noted Time PHQ-9 Depression Total Score: 2 12/08/19 23 11:00 AM FACILITY MANAGER HISTOLOGY documented as of this encounter Care Teams Wealth Management Manager Relationship Specialty Start Date End Date Jasiel Freeman MD [address] [place] [address] PCP - General Family Practice 08/15/17 documented as of this encounter
--- OUTSIDE RECORDS SUMMARY | 2024-10-24 06:35 | XMS_ITS | Encounter Summary ---
Author Organization [facility] Address [address] [place] [address] Care Team Providers Care Collection Officer Name Role Phone Jasiel Freeman MD Primary Care Provider [phone] Reason for Referral * Eval and Treat (Routine) - Closed Specialty Diagnoses / Procedures Referred By Contac t Referred To Contact Perioperative Diagnoses Crohn's disease with fistula, unspecified gastrointestinal tract location Procedures SC OFFICE/OUTPATIENT ESTABLISHED MOD MDM 30 MIN SC OFFICE/OUTPATIENT NEW MODERATE MDM 45 MINUTES Kitty Dover ANP [address] [place] [address] Jessica Bejarano MD [address] [facility] [address] [place] [address] Referral ID Status Reason Start Date Expiration Date V isits Requested Visits Authorized [id number] Closed CRS to Schedule 01/31/2024 01/30/2025 1 1 Reason for Visit * Reason Comments Crohn's Disease Ulcerative Colitis Encounter Details Date Type Department Care Team (Latest Contact Info) Description 01/31/2024 9:00 AM CDT Office Visit [facility] IBD and Gastroenterology Center [address] [facility] [address] [place] [address] Kitty Dover ANP [address] [place] [address] Crohn's disease with fistula, unspecified gastrointestinal tract location (Primary Dx); High risk medication use; Vitamin D deficiency; 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 male with hx of UC s/p total colectomy with J pouch in 2001 presenting tothe [facility] IBD clinic for a follow [...] 2001 HX HIP REPLACEMENT, TOTAL Left 10/08/2017 SC COLONOSCOPY FLX DX W/COLLJ SPEC WHEN PFRMD 12/08/2009 COLONOSCOPY performed by LOUISE SOTELO at [facility] GI LAB SC COLONOSCOPY FLX DX W/COLLJ SPEC WHEN PFRMD 06/09/2014 COLONOSCOPY performed by Lane Ryan MD at [facility] GI LAB SC DILAT RCT STRIX SPX UNDER ANES OTH/THN LOCAL 06/12/2012 RECTAL STRICTURE DILATATION performed by Lane Ryan MD at [facility] GI LAB SC ENDOSCOPY UPPER SMALL INTESTINE 06/12/2012 SMALL BOWEL ENTEROSCOPY performed by Lane Ryan MD at [facility] GI LAB SC ENDOSCOPY UPPER SMALL INTESTINE N/A 08/24/2017 SMALL BOWEL ENTEROSCOPY performed by Lane Ryan MD at [facility] GI LAB SC ENDOSCOPY UPPER SMALL INTESTINE W/BIOPSY 02/28/2012 BOWEL SMALL BIOPSY ENDOSCOPIC performed by Lane Ryan MD at [facility] GI LAB SC ESOPHAGOGASTRODUODENOSCOPY TRANSORAL DIAGNOSTIC 02/28/2012 ESOPHAGOGASTRODUODENOSCOPY performed by Lane Ryan MD at [facility] GI LAB SC NDSC EVAL INTSTINAL POUCH DX W/COLLJ SPEC SPX 02/16/2012 POUCHOSCOPY performed by Louise Sotelo MD at [facility] GI LAB SC NDSC EVAL INTSTINAL POUCH DX W/COLLJ SPEC SPX N/A 08/15/2022 POUCHOSCOPY performed by Annette Wihtney MD at [facility] SC SIGMOIDOSCOPY FLX DX W/COLLJ SPEC BR/WA IF PFRMD 02/16/2012 SIGMOIDOSCOPY FLEXIBLE performed by Louise oStelo MD at [facility] GI LAB SC SIGMOIDOSCOPY FLX DX W/COLLJ SPEC BR/WA IF PFRMD N/A 06/12/2020 CHECKOUT SIGMOIDOSCOPY FLEXIBLE performed by Annette Whitney MD at [facility] GI LAB Family History Problem Relation Name Age of Onset Heart Disease Father Hypertension Mother Healthy Sister Healthy Brother Colon Cancer Neg Hx Social History Socioeconomic History Marital status: Spouse name: Not on file Number of children: Not on file Years of education: Not on file Highest education level: Not on file Occupational History Employer: [employer] Employer: [employer] Tobacco Use Smoking status: [...] Skyrizi OBI every 8 weeks. Labs at [facility]. Stool test to be sent home with you today - calpro. Pouchoscopy with Dr. Bejarano at any location Fall 2023 with mag citrate. Decrease budesonide 3mg to every other day. Continue dicyclomine as needed. Follow up in [address] Bejarano. On the day of the visit, I spent 42 minutes providing care to this patient including chart review, review of outside records, obtaining history from patient and their family, performing a medically appropriate examination, counseling and educating the patient/family/caregiver, ordering medications, tests, or procedures, and documenting clinical information in the medical record. MIRTA Guido Division of Gastroenterology [facility] Inflammatory Bowel Disease [phone] CC: Jasiel Freeman MD No orders of [...] entrusting your healthcare to the physicians at [facility] Inflammatory Bowel Disease and Gastroenterology Following your visit, you may receive a survey via email or [facility]. Kitty encourages you to respond to this confidential survey about your care. If you received excellent care, Kitty would appreciate your evaluation. Your feedback helps us to provide quality service at every visit. Thank you for your help in making our practice meet the highest expectations! [facility] Inflammatory Bowel Disease and Gastroenterology Center If you have IBD, this is the preferred office to contact. [address] [place] [address] Other important numbers to add to our contact info: After hours physician exchange: [phone] Champion: To schedule CT or MRI: Call [phone] To schedule EGD/Colon/Flex [phone] Bejarano/Kiki: To schedule CT or MRI: Call [phone] To schedule an EGD/Colon/Flex Sig: Call [phone] IMPORTANT: The following information and instructions are from your visit today: Continue Skyrizi OBI every 8 weeks. Labs at [facility]. 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 M. tuberculosis complex infection unlikely. NIL 0.02 IU/mL [facility] MITOGEN-NIL >10.00 IU/mL [facility] TB1 AG - NIL 0.00 IU/mL [facility] TB2 AG - NIL 0.00 [...] T-lymphocytes. For additional information, please refer to https://education.[employer]/faq/ALW145 (This link is being provided for informational/ educational purposes only.) FASTING:NO FASTING: NO Test Performed at: [facility] [id number] [place] [address] ??[phone] Conner Darby MD Blood 02/12/2024 9:59 AM CDT 02/12/2024 9:59 AM CDT Kitty Dover ANP CHEMISTRY ORDER SHAMAR [facility] [phone] [facility] [address] * (ABNORMAL) VITAMIN B12 LEVEL (02/12/2024 9:59 AM CDT) Pathologist [facility] VITAMIN B12 193(L) 200 - 1100 pg/mL [facility] Comment: Test Performed at: [facility] ??[phone] Conner Darby MD Blood 02/12/2024 9:59 AM CDT 02/12/2024 9:59 AM CDT Kitty Dover ANP CHEMISTRY ORDER SHAMAR Performing Organization Address [facility]/ZIP Co de Phone Number [facility] [phone] [facility] [address] * (ABNORMAL) VITAMIN D 25 HYDROXY (02/12/2024 9:59 AM CDT) Pathologist [facility] VITAMIN D, 25 OH, TOTAL 28(L) 30 - 100 ng/mL [facility] Comment: Vitamin D Status ? 25-OH Vitamin D: Deficiency: ?<20 ng/mL Insufficiency: ? 20 - 29 ng/mL Optimal: ? > or = 30 ng/mL For 25-OH Vitamin D testing on patients on D2-supplementation and patients for whom quantitation of D2 and D3 fractions is required, the [facility](TM) 25-OH VIT D, (D2,D3), LC/MS/MS is recommended: order code 42250 (patients >2yrs). See Note 1 Note 1 For additional information, please refer to http://education.[employer]/faq/QEX203 (This link is being provided for informational/ educational purposes only.) FASTING:NO FASTING: NO Test Performed at: [facility] [address] [place], [place] ??[phone] Conner Darby MD Blood 02/12/2024 9:59 AM CDT 02/12/2024 9:59 AM CDT Kitty Dover ANP CHEMISTRY ORDER SHAMAR Performing Organization Address [facility] Co de Phone Number [facility] [phone] [facility] [address] [place] [phone] * C-REACTIVE PROTEIN (02/12/2024 9:59 AM CDT) CRP 4.6 <8.0 mg/L [facility] Comment: FASTING:NO FASTING: NO Test Performed at: [facility] [address] [place] [address] ??[phone] Conner Darby MD Blood 02/12/2024 9:59 AM CDT 02/12/2024 9:59 AM CDT Kitty Dover ANP CHEMISTRY ORDER SHAMAR Performing Organization Address [facility] Co de Phone Number [facility] [phone] [facility] [address] [place] [phone] * COMPREHENSIVE METABOLIC PANEL (02/12/2024 9:59 AM [...] Comment: FASTING:NO FASTING: NO Test Performed at: [facility] ??[phone] Conner Darby MD Blood 02/12/2024 9:59 AM CDT 02/12/2024 9:59 AM CDT Kitty Dover ANP CHEMISTRY ORDER SHAMAR [facility] [phone] [facility] [address] [place] [address] * (ABNORMAL) CBC WITH DIFFERENTIAL (02/12/2024 9:59 [...] + FASTING:NO FASTING: NO Test Performed at: [facility] [address] [facility] [place] ??[phone] Conner Darby MD Blood 02/12/2024 9:59 AM CDT 02/12/2024 9:59 AM CDT Kitty KIRBY HEMATOLOGY ORDToño PRITCHETT [facility] [phone] [facility] [address] [facility] [place] [address] documented in this encounter Visit Diagnoses Diagnosis Crohn's disease with fistula, unspecified gastrointestinal tract location- Primary High risk medication use Encounter for long-term (current) use of other medications Vitamin D deficiency Unspecified vitamin D deficiency 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
--- OUTSIDE RECORDS SUMMARY | 2024-10-24 06:35 | XMS_ITS | Clinical Summary ---
Author Organization [facility] Address [address] [place] [address] Phone Care Team Providers Care Senior Sales Engineer Name Role Phone Jasiel Freeman MD [...] STL ABSTRACTION Provider, Abstract 10/17/2024 12:13 PM SITE DAMAGE PREVENTION TECHNICIAN - 10/18/2024 1:26 PM SITE DAMAGE PREVENTION TECHNICIAN Hospital Encounter [facility] Medicine [address] [place] [address] Adebayo Puentes MD Razzaque, Ahmer, Nuspl, Kari Ca DO Ulcerative colitis Discharge Disposition: Home or Self Care 10/17/2024 Travel 09/11/2024 12:30 PM SITE DAMAGE PREVENTION TECHNICIAN Office Visit [facility] [place] [address] [place] [address] Jessica Bejarano MD Crohn's disease of small intestine without complication (Primary Dx); Immunodeficiency due to treatment with immunosuppressive medication; Vitamin B12 deficiency (non anemic); Vitamin D deficiency; Iron deficiency anemia due to chronic blood loss 08/21/2024 External Device Data STL ABSTRACTION Provider, Abstract 08/06/2024 8:00 AM CDT - 08/06/2024 8:[address] [facility] [place] [address] [facility] [place] [address] Jessica Bejarano MD CHECKOUT POUCHOSCOPY 08/06/2024 7:50 AM CDT Anesthesia Event [facility] [place] [address] [facility] [place] [address] Louis Klein MD Irby, Caitlin W, AA-C 08/06/2024 7:22 AM CDT - 08/06/2024 9:03 AM CDT Hospital Encounter [facility] [place] [address] [facility] [place] [address] Jessica Bejarano MD Crohn's disease with fistula, [...] Comments Blood Pressure 153/99 10/18/2024 12:28 PM SITE DAMAGE PREVENTION TECHNICIAN Pulse 95 10/18/2024 12:28 PM SITE DAMAGE PREVENTION TECHNICIAN Temperature 36.9 ??C (98.5 ??F) 10/18/2024 12:[address] Respiratory Rate 20 10/18/2024 4:59 AM SITE DAMAGE PREVENTION TECHNICIAN Oxygen Saturation 96% 10/18/2024 12:28 PM SITE DAMAGE PREVENTION TECHNICIAN Inhaled Oxygen Concentration - - Weight 81.6 kg (180 lb) 10/17/2024 2:14 PM SITE DAMAGE PREVENTION TECHNICIAN Height 175.3 cm (5' 9 ) 10/17/2024 2:14 PM SITE DAMAGE PREVENTION TECHNICIAN Body Mass Index 26.58 10/17/2024 2:14 PM SITE DAMAGE PREVENTION TECHNICIAN Plan of Treatment Upcoming Encounters Date Type Department Care Team (Late st Contact Info) Description 02/13/2025 10:30 AM CDT Office Visit [facility] [place] [address] [place] [address] Kitty Dover, ANP [address] [place] [address] Health Maintenance Due Date Last Done Comments [...] BASIC METABOLIC PANEL Routine 10/18/2024 3:22 AM SITE DAMAGE PREVENTION TECHNICIAN CBC WITH DIFFERENTIAL Routine 10/18/2024 3:22 AM SITE DAMAGE PREVENTION TECHNICIAN C. DIFFICILE DETECTION Routine 10/17/2024 4:50 PM SITE DAMAGE PREVENTION TECHNICIAN DIFFERENTIAL, MANUAL Routine 10/17/2024 2:51 PM SITE DAMAGE PREVENTION TECHNICIAN C-REACTIVE PROTEIN Routine 10/17/2024 2:51 PM SITE DAMAGE PREVENTION TECHNICIAN LACTIC ACID Stat 10/17/2024 2:51 PM SITE DAMAGE PREVENTION TECHNICIAN LIPASE Routine 10/17/2024 2:51 PM SITE DAMAGE PREVENTION TECHNICIAN PHOSPHORUS Routine 10/17/2024 2:51 PM SITE DAMAGE PREVENTION TECHNICIAN MAGNESIUM LEVEL Routine 10/17/2024 2:51 PM SITE DAMAGE PREVENTION TECHNICIAN CBC WITH DIFFERENTIAL Routine 10/17/2024 2:51 PM SITE DAMAGE PREVENTION TECHNICIAN COMPREHENSIVE METABOLIC PANEL Routine 10/17/2024 2:51 PM SITE DAMAGE PREVENTION TECHNICIAN POUCHOSCOPY REPORT 08/06/2024 12:05 PM CDT PATHOLOGY Pathology 08/06/2024 8:16 AM CDT Crohn's disease with fistula, unspecified gastrointestinal tract location IN NDSC EVAL INTSTINAL POUCH DX W/COLLJ SPEC SPX 08/06/2024 8:00 AM CDT Crohn's disease with fistula, unspecified gastrointestinal tract location Case Notes Mag citrate prep per Kavitha Dover PA- see Note in chart for clarification from Last 3 Months Results * (ABNORMAL) CBC WITH DIFFERENTIAL (10/18/2024 3:22 AM SITE DAMAGE PREVENTION TECHNICIAN) Only the most recent of2 resultswithin the time period is included. WBC 7.0 4.0 - 9.8 K/uL 10/18/2024 3:55 AM SITE DAMAGE PREVENTION TECHNICIAN [facility] RBC 5.94(H) 4.50 - 5.40 M/uL 10/18/2024 3:55 AM SITE DAMAGE PREVENTION TECHNICIAN [facility] HEMOGLOBIN 13.0(L) 13.6 - 16.5 g/dL 10/18/2024 3:55 AM SITE DAMAGE PREVENTION TECHNICIAN [facility] HEMATOCRIT 43.6 40.0 - 48.0 % 10/18/2024 3:55 AM SITE DAMAGE PREVENTION TECHNICIAN [facility] MCV 73.4(L) 82.0 - 99.0 fL 10/18/2024 3:55 AM SITE DAMAGE PREVENTION TECHNICIAN [facility] MCH 21.9(L) 27.2 - 32.6 pg 10/18/2024 3:55 AM SITE DAMAGE PREVENTION TECHNICIAN [facility] MCHC 29.8(L) 31.5 - 35.5 g/dL 10/18/2024 3:55 AM SITE DAMAGE PREVENTION TECHNICIAN [facility] RDW 19.9(H) 11.5 - 14.5 % 10/18/2024 3:55 AM SITE DAMAGE PREVENTION TECHNICIAN [facility] RDW-STDEV 49.8(H) 37.1 - 48.7 fL 10/18/2024 3:55 AM SITE DAMAGE PREVENTION TECHNICIAN [facility] PLATELETS 248 140 - 350 K/uL 10/18/2024 3:55 AM SITE DAMAGE PREVENTION TECHNICIAN [facility] MPV 9.5 9.3 - 12.4 fL 10/18/2024 3:55 AM SITE DAMAGE PREVENTION TECHNICIAN [facility] NEUTROPHILS 66 % 10/18/2024 3:55 AM SITE DAMAGE PREVENTION TECHNICIAN [facility] LYMPHOCYTES 21 % 10/18/2024 3:55 AM SITE DAMAGE PREVENTION TECHNICIAN [facility] MONOCYTES 10 % 10/18/2024 3:55 AM SITE DAMAGE PREVENTION TECHNICIAN [facility] EOSINOPHILS 3 % 10/18/2024 3:55 AM SITE DAMAGE PREVENTION TECHNICIAN [facility] BASOPHILS 0 % 10/18/2024 3:55 AM SITE DAMAGE PREVENTION TECHNICIAN [facility] IMMATURE GRANULOCYTES 0 % 10/18/2024 3:55 AM SITE DAMAGE PREVENTION TECHNICIAN [facility] NEUTROPHIL ABSOLUTE 4.63 1.90 - 7.00 K/uL 10/18/2024 3:55 AM SITE DAMAGE PREVENTION TECHNICIAN [facility] LYMPHOCYTE ABSOLUTE 1.47 0.70 - 4.50 K/uL 10/18/2024 3:55 AM SITE DAMAGE PREVENTION TECHNICIAN [facility] MONOCYTE ABSOLUTE 0.72 0.10 - 1.30 K/uL 10/18/2024 3:55 AM SITE DAMAGE PREVENTION TECHNICIAN [facility] EOSINOPHIL ABSOLUTE 0.18 0.00 - 0.70 K/uL 10/18/2024 3:55 AM SITE DAMAGE PREVENTION TECHNICIAN [facility] BASOPHILS ABSOLUTE 0.03 0.00 - 0.20 K/uL 10/18/2024 3:55 AM SITE DAMAGE PREVENTION TECHNICIAN [facility] IMMATURE GRANULOCYTES ABSOLUTE 0.01 0.00 - 0.03 K/uL 10/18/2024 3:55 AM SITE DAMAGE PREVENTION TECHNICIAN [facility] Blood Venipuncture / Unknown 10/18/2024 3:22 AM SITE DAMAGE PREVENTION TECHNICIAN 10/18/2024 3:36 AM SITE DAMAGE PREVENTION TECHNICIAN Layton Bui DO HEMATOLOGY ORDERABLE S [facility] CLIA# [id number] [address] [place] [address] * (ABNORMAL) BASIC METABOLIC PANEL (10/18/2024 3:22 AM SITE DAMAGE PREVENTION TECHNICIAN) SODIUM 139 136 - 145 mmol/L 10/18/2024 4:33 AM [facility] POTASSIUM 4.2 3.5 - 5.0 mmol/L 10/18/2024 4:33 AM [facility]ORY [facility] CHLORIDE 107 98 - 107 mmol/L 10/18/2024 4:33 AM [facility]ORATORY [facility] CO2 22 22 - 29 mmol/L 10/18/2024 4:33 AM [facility]ORY [facility] CALCIUM 8.5(L) 8.6 - 10.2 mg/dL 10/18/2024 4:33 AM [facility]. [facility] BUN 19 6 - 20 mg/dL 10/18/2024 4:33 AM [facility] CREATININE 1.15 0.67 - 1.17 mg/dL 10/18/2024 4:33 AM [facility]. [facility] GLUCOSE 83 74 - 99 mg/dL 10/18/2024 4:33 AM [facility] [employer] [facility] GFR >60 >=60 mL/min/1.7 3 sq meter 10/18/2024 4:33 AM [facility] [employer] [facility] Comment:eGFR calculated with 2020 CKD-EPI equation. Vegetarian diet, extremely high or low muscle mass, and may affect results. Cystatin C with Glomerular Filtration Rate is a suitable alternative for these patients. ANION GAP 10 8 - 16 mmol/L 10/18/2024 4:33 AM [facility] [employer] [facility] Blood Venipuncture / Unknown 10/18/2024 3:22 AM SITE DAMAGE PREVENTION TECHNICIAN 10/18/2024 3:36 AM SITE DAMAGE PREVENTION TECHNICIAN Layton Bui DO CHEMISTRY ORDERABLES [facility] [employer] [facility]# [id number] [address] [facility] [address] [place] [place] [address] * C. DIFFICILE DETECTION (10/17/2024 4:50 PM SITE DAMAGE PREVENTION TECHNICIAN) [facility] TOXIGENIC C DIFFICILE NOT DETECTED Not Detected 10/17/2024 6:55 PM SITE DAMAGE PREVENTION TECHNICIAN [facility] LABORATORY [facility] Stool STOOL SPECIMEN / Unknown Collection / Unknown 10/17/2024 4:50 PM SITE DAMAGE PREVENTION TECHNICIAN 10/17/2024 5:15 PM SITE DAMAGE PREVENTION TECHNICIAN Narrative [facility] LABORATORY [facility] - 10/17/2024 6:55 PM SITE DAMAGE PREVENTION TECHNICIAN This assay is used to detect Toxigenic C. difficile target(B gene) DNA sequences in unformed stool specimens. ??If toxigenic C. difficile is not detected, but clinical suspicion is high please consult ID for consultation and potential repeat testing. ??This test should not be used as a test of cure. Layton Bui DO MICROBIOLOGY - GENER AL ORDERABLES [facility] LABORATORY [facility] CLIA# [id number] [address] [place] [address] * MANUAL DIFFERENTIAL (10/17/2024 2:51 PM SITE DAMAGE PREVENTION TECHNICIAN) [facility] PLATELET EST. Consistent w Count 10/17/2024 3:55 PM SITE DAMAGE PREVENTION TECHNICIAN [facility] LABORATORY [facility] ANISOCYTOSIS 1+ /hpf 10/17/2024 3:55 PM SITE DAMAGE PREVENTION TECHNICIAN [facility] LAB[facility] MICROCYTES 1+ /hpf 10/17/2024 3:55 PM SITE DAMAGE PREVENTION TECHNICIAN [facility] LABORATORY [facility] Blood Venipuncture / Unknown 10/17/2024 2:51 PM SITE DAMAGE PREVENTION TECHNICIAN 10/17/2024 2:57 PM SITE DAMAGE PREVENTION TECHNICIAN Layton Bui DO HEMATOLOGY ORDERABLE S COM [facility] CLIA# [id number] [address] [place] [address] * LACTIC ACID (10/17/2024 2:51 PM SITE DAMAGE PREVENTION TECHNICIAN) [facility] LACTIC ACID 1.2 <=2.0 mmol/L 10/17/2024 3:17 PM SITE DAMAGE PREVENTION TECHNICIAN [facility] LABORATORY [facility] Blood Venipuncture / Unknown 10/17/2024 2:51 PM SITE DAMAGE PREVENTION TECHNICIAN 10/17/2024 2:57 PM SITE DAMAGE PREVENTION TECHNICIAN Ahmer Davidzaque DO CHEMISTRY ORDERABLES [facility] CLIA# [id number] [address] [place] [address] * (ABNORMAL) C-REACTIVE PROTEIN (10/17/2024 2:51 PM SITE DAMAGE PREVENTION TECHNICIAN) CRP 11.1(H) <5.0 mg/L 10/17/2024 4:15 PM SITE DAMAGE PREVENTION TECHNICIAN [facility] Blood Venipuncture / Unknown 10/17/2024 2:51 PM SITE DAMAGE PREVENTION TECHNICIAN 10/17/2024 2:57 PM SITE DAMAGE PREVENTION TECHNICIAN Layton Bui DO CHEMISTRY ORDERABLES Performing Organization Address [facility]/ZIP Co de Phone Number [facility] CLIA# [id number] [address] [place] [address] * PHOSPHORUS (10/17/2024 2:51 PM SITE DAMAGE PREVENTION TECHNICIAN) PHOSPHORUS 3.7 2.5 - 4.5 mg/dL 10/17/2024 4:15 PM SITE DAMAGE PREVENTION TECHNICIAN [facility] Blood Venipuncture / Unknown 10/17/2024 2:51 PM SITE DAMAGE PREVENTION TECHNICIAN 10/17/2024 2:57 PM SITE DAMAGE PREVENTION TECHNICIAN Layton Bui DO CHEMISTRY ORDERABLES [facility] CLIA# [id number] [address] [place] [address] * MAGNESIUM LEVEL (10/17/2024 2:51 PM SITE DAMAGE PREVENTION TECHNICIAN) MAGNESIUM 2.1 1.6 - 2.6 mg/dL 10/17/2024 4:15 PM SITE DAMAGE PREVENTION TECHNICIAN [facility] Blood Venipuncture / Unknown 10/17/2024 2:51 PM SITE DAMAGE PREVENTION TECHNICIAN 10/17/2024 2:57 PM SITE DAMAGE PREVENTION TECHNICIAN [employer] DO CHEMISTRY ORDERABLES Performing Organization Address City/[facility]/ZIP Co de Phone Number [facility] LAB[facility] CLIA# [id number] [address] [place] [id number] * LIPASE (10/17/2024 2:51 PM SITE DAMAGE PREVENTION TECHNICIAN) LIPASE 19 13 - 60 U/L 10/17/2024 4:15 PM SITE DAMAGE PREVENTION TECHNICIAN [facility] Blood Venipuncture / Unknown 10/17/2024 2:51 PM SITE DAMAGE PREVENTION TECHNICIAN 10/17/2024 2:57 PM SITE DAMAGE PREVENTION TECHNICIAN Layton Ramya DO CHEMISTRY ORDERABLES Performing Organization Address City/[facility]/ZIP Co de Phone Number [facility] [employer] [facility] CLIA# [id number] [address] [place] [address] * (ABNORMAL) COMPREHENSIVE METABOLIC PANEL (10/17/2024 2:51 PM SITE DAMAGE PREVENTION TECHNICIAN) SODIUM 139 136 - 145 mmol/L 10/17/2024 4:15 PM SITE DAMAGE PREVENTION TECHNICIAN [facility] POTASSIUM 4.4 3.5 - 5.0 mmol/L 10/17/2024 4:15 PM SITE DAMAGE PREVENTION TECHNICIAN [facility] CHLORIDE 103 98 - 107 mmol/L 10/17/2024 4:15 PM SITE DAMAGE PREVENTION TECHNICIAN [facility]. [facility] CO2 26 22 - 29 mmol/L 10/17/2024 4:15 PM SITE DAMAGE PREVENTION TECHNICIAN [facility] CALCIUM 9.2 8.6 - 10.2 mg/dL 10/17/2024 4:15 PM SITE DAMAGE PREVENTION TECHNICIAN [facility]. [facility] BUN 17 6 - 20 mg/dL 10/17/2024 4:15 PM [facility] CREATININE 1.31(H) 0.67 - 1.17 mg/dL 10/17/2024 4:15 PM [facility] GLUCOSE 95 74 - 99 mg/dL 10/17/2024 4:15 PM [facility] TOTAL PROTEIN 7.2 6.7 - 8.6 g/dL 10/17/2024 4:15 PM [facility] ALBUMIN 4.0 3.5 - 5.2 g/dL 10/17/2024 4:15 PM [facility] BILIRUBIN TOTAL 0.6 0.3 - 1.2 mg/dL 10/17/2024 4:15 PM [facility] ALKALINE PHOSPHATASE 81 40 - 129 U/L 10/17/2024 4:15 PM [facility] AST 23 <41 U/L 10/17/2024 4:15 PM [facility] Comment:Hemolysis present. R esult may be falsely elevated. ALT 19 <42 U/L 10/17/2024 4:15 PM [facility] GFR >60 >=60 mL/min/1.7 3 sq meter 10/17/2024 4:15 PM [facility] Comment:eGFR calculated with 2020 CKD-EPI equation. Vegetarian diet, extremely high or low muscle mass, and may affect results. Cystatin C with Glomerular Filtration Rate is a suitable alternative for these patients. ANION GAP 10 8 - 16 mmol/L 10/17/2024 4:15 PM [facility] [employer] [facility] Blood Venipuncture / Unknown 10/17/2024 2:51 PM SITE DAMAGE PREVENTION TECHNICIAN 10/17/2024 2:57 PM [facility] - 10/17/2024 4:15 PM [facility] Samples containing indocyanine green cause interferences on Total and/or Direct Bilirubin and must not be measured. Layton Bui DO CHEMISTRY ORDERABLES [facility] [employer] [facility] CLIA# [id number] [address] [place] [address] * POUCHOSCOPY REPORT (08/06/2024 12:05 PM CDT) Narrative Procedure Note Jessica Bejarano MD - 08/06/2024 12:05 PM CDT [facility] Endoscopy Patient Name: Edgardo Elkins Procedure [...] of Addenda: [address]; [place] [address] Jessica Bejarano MD GI PROCEDURE ORDE SHREYAS * PATHOLOGY (08/06/2024 8:16 AM CDT) CASE REPORT Surgical Pathology Report ? Case: [id number] ? Authorizing Provider: ??Jessica Bejarano MD ?? Collected: ? 08/06/2024 08:16 AM ? Ordering Location: ? [facility] GI [facility] S [address] ??Received: ?08/06/2024 10:00 AM ? Pathologist: ? Rosalinda Leyva MD ? Specimens: ?? A) - Small Intestine, pouch bx ? B) - Colon, cuff bx ? C) - Colon, pouch polyp ? D) - Small Intestine, pre-pouch ileum bx ? 4 5:11 PM [facility] FINAL DIAGNOSIS Small intestine, pouch, [...] granulomas or dysplasia identified 4 5:11 PM [facility] S DESCRIPTION The specimens are [...] dimension. All are submitted in cassette D1. [facility] 4 5:11 PM [facility] MICROSCOPIC DESCRIPTION The slides are labeled [id number] and Edgardo Elkins. Sections from the small [...] granulomas, dysplasia or malignancy. 4 5:11 PM [facility] OPERATIVE PROCEDURE 1: POUCHOSCOPY 4 5:11 PM [facility] CLINICAL INFORMATION A Inflammation. R/o dysplasia. Inflammation. R/o dysplasia. Crohn's disease with fistula, unspecified gastrointestinal tract location [K50.913] K50.913-Crohn's disease with fistula, unspecified gastrointestinal tract location 4 5:11 PM [facility] COMMENT Special stain, immunohistochemical, and/or in situ hybridization results are interpreted with controls that demonstrate appropriate staining reactions. Note on use of immunohistochemistry reagents and in situ hybridization probes: These tests were developed and their performance characteristics determined by [facility], Department of Laboratory Medicine. It has [...] part or completely in the following laboratories: [facility], CLIA #[id number] [address] [place] [address] [facility], [place] #[id number] [address] [place] [address] [facility], [place] #[id number] [address] [place] [address] This report was created with the 2sms voice-activated dictation system. Inherent to this system is the possibility of syntax, grammar, punctuation and other errors that could impact the interpretation of the report. If there are interpretative questions about aspects of this report, please contact the performing pathologist. 5:11 PM CDT [facility] Tissue (Small Intestine) Collection / Unknown 08/06/2024 [...] splasia. Jessica Bejarano MD PATHOLOGY/CYTOLOG Y [id number] [address] [place] [address] from Last 3 Months Advance Directives For more information, please contact: [phone] * Full Code (Latest Code Status on [...] 2:24 PM 06/09/2014 6:57 PM Care Teams Senior Sales Engineer Relationship Specialty Start Date End Date Jasiel Freeman MD [address] [place] [phone] PCP - General Family Practice 08/15/17
--- OUTSIDE RECORDS SUMMARY | 2024-10-24 06:35 | XMS_ITS | Encounter Summary ---
Author Organization [facility] Address [address] [place] [address] Care Team Providers Care Brick Setter Name Role Phone Jasiel Freeman MD Primary Care Provider [phone] Encounter Details Date Type Department Care Team (Late st Contact Info) Description 01/06/2023 Specialty Pharmacy [facility] Specialty and Home Infusion - [address] [place] [address] Annette Whitney MD [address] [facility] [address] [place] [address] Social History Tobacco Use Types Packs/Day Years [...] Coronavirus/COVID-19? No / Unsure 12/15/2022 2:36 PM [facility] documented as of this encounter Progress Notes * Carmen Meza - 01/06/2023 3:11 PM CDT [facility] [address] [facility], [place] [address] PH: [phone] FX: [phone] Prescription Transfer Notification Patient Name: Edgardo Elkins Thank you very much for the medication referral for the patient:Edgardo Elkins, for the following medication(s): Skyrizi The Prior Authorization has been obtained from the insurance provider and the medication has been approved through the following date 01/05/2024. However, the medication is required be filled by: [facility] Specialty The patient has been notified of the medication approval and that it will be delivered by the abovenamed specialty pharmacy. This note is written by: Carmen Meza documented in this encounter Plan of Treatment Upcoming Encounters Date Type Department Care Team (Late st Contact Info) Description 02/13/2025 10:30 AM CDT Office Visit [facility] [place] [address] [facility] [address] [place] [address] Kitty Dover ANP [address] [place] [address] [place] [address] documented as of this encounter Visit Diagnoses Not on filedocumented in this encounter Additional Health Concerns Assessment Noted Time PHQ-9 Depression Total Score: 2 12/08/19 23 11:00 AM [facility] documented as of this encounter Care Teams Brick Setter Relationship Specialty Start Date End Date Jasiel Freeman MD [address] [place] [phone] PCP - General Family Practice 08/15/17 documented as of this encounter
--- OUTSIDE RECORDS SUMMARY | 2024-10-24 06:35 | XMS_ITS | Encounter Summary ---
Author Organization [facility] Address [address] [place] [address] Care Team Providers Care Aviation Electronics Technician Name Role Phone Jasiel Freeman MD Primary Care Provider Reason for Visit * Reason Comments Med Refill Encounter Details Date Type Department Care Team (Late st Contact Info) Description 04/24/2024 Refill [facility] [address] [facility] [address] [place] [address] Kitty Dover, MIRTA [address] [facility] [address] [place] [address] Vitamin D deficiency Social History [...] Skyrizi OBI every 8 weeks. Labs at [facility]. Stool test to be sent home [...] [facility] [place] [address] [facility] [address] [place] [address] Kitty Dover ANP [address] [place] [address] [place] [address] documented as of this encounter Visit Diagnoses Diagnosis Vitamin D deficiency Unspecified vitamin D deficiency documented in this encounter Additional Health Concerns Assessment Noted Time PHQ-9 Depression Total Score: 2 12/08/19 23 11:00 AM ASSISTANT COMMUNITY DIRECTOR documented as of this encounter Care Teams Aviation Electronics Technician Relationship Specialty Start Date End Date Jasiel Freeman MD [address] [place] [phone] PCP - General Family Practice 08/15/17 documented as of this encounter
--- OUTSIDE RECORDS SUMMARY | 2024-10-24 06:35 | XMS_ITS | Encounter Summary ---
Author Organization [facility] Address [address] [place] [address] Care Team Providers Care Performance Solutions Specialist Name Role Phone Jasiel Freeman MD Primary Care Provider [phone] Encounter Details Date Type Department Care Team (Late st Contact Info) Description 02/27/2024 Orders Only [facility] IBD and Gastroenterology Center [address] [facility] [address] [place] [address] Jessica Bejarano MD [address] [address] Social History Tobacco Use Types [...] [facility] Gastroenterology [facility] [place] [address] [place] [address] Kitty Dover ANP [address] [place] [address] documented as of this encounter Procedures Procedure Name Priority Date/Time Associated Diagnosis Comments CALPROTECTIN, FECAL Routine 02/23/2024 1 2:08 PM CDT documented in this encounter Results * CALPROTECTIN, FECAL (02/23/2024 12:08 PM CDT) Stool STOOL SPECIMEN / Unknown Jessica Bejarano MD BODY FLUIDS AND S TOOLS [facility] [[email or web address] IBD GASTRO [facility]# [id number] [address] [place] [address] documented in this encounter Visit Diagnoses Not on filedocumented in this encounter Additional Health Concerns Assessment Noted Time PHQ-9 Depression Total Score: 2 12/08/19 23 11:00 AM HEALTHCARE SPECIALIST documented as of this encounter Care Teams Performance Solutions Specialist Relationship Specialty Start Date End Date Jasiel Freeman MD [address] [place] [phone] PCP - General Family Practice 08/15/17 documented as of this encounter
--- OUTSIDE RECORDS SUMMARY | 2024-10-24 06:35 | XMS_ITS | Encounter Summary ---
Author Organization [facility] Address [address] Avila: [place] [address] Care Team Providers Care Cupola Melting Supervisor Name Role Phone Jasiel Freeman MD Primary Care Provider [phone] Encounter Details Date Type Department Care Team [...] Coronavirus/COVID-19? No / Unsure 12/08/2022 10:51 AM BUNDLE COLLECTOR documented as of this encounter Plan of Treatment Upcoming Encounters Date Type Department Care Team (Late st Contact Info) Description 02/13/2025 10:30 AM CDT Office Visit [facility] IBD and Gastroenterology Center [place] [address] [place] [address] Kitty Dover, ANP [address] [phone] documented as of this encounter Visit Diagnoses Not on filedocumented in this encounter Additional Health Concerns Assessment Noted Time PHQ-9 Depression Total Score: 2 12/08/19 23 11:00 AM BUNDLE COLLECTOR documented as of this encounter Care Teams Cupola Melting Supervisor Relationship Specialty Start Date End Date Jasiel Freeman MD [address] [place] [phone] PCP - General Family Practice 08/15/17 documented as of this encounter
--- OUTSIDE RECORDS SUMMARY | 2024-10-24 06:35 | XMS_ITS | Encounter Summary ---
Author Organization [facility] Address [address] [place] [address] Care Team Providers Care Subway Train Operator Name Role Phone Jasiel Freeman MD Primary Care Provider Reason for Referral * Home Infusion (Routine) - Closed Specialty Diagnoses / Procedures Referred By Contac t Referred To Contact Home Health Diagnoses Crohn's disease with other complication, unspecified gastrointestinal tract location Annette Whitney MD 1 [facility] [address] Referral ID Status Reason Start Date Expiration Date Visits Requested Visits Authorized [id number] Closed Performing Department to Schedule 11/03/2022 11/03/2023 1 1 Scheduling Instructions To complete referral use the comments field above. Performing department to schedule. ETING STRATEGY ANALYST * Eval and Treat (Routine) - Closed Specialty Diagnoses / Procedures Referred By Contact Referred To Contact Gastroenterology Diagnoses Crohn's disease with other complication, unspecified gastrointestinal tract location Annette Whitney MD 1 [facility] [place] [address] [facility] Ibd And Gastroenterology Center [address] [place], [place] [phone] Referral ID Status Reason Start Date Expiration Date Visits Re quested Visits Authorized [id number] Closed 08/17/2022 08/17/2023 1 1 * Outpatient Services (Routine) - Closed Specialty Diagnoses / Procedures Referred By Contact Referred To Contact Gastroenterology Diagnoses Crohn's disease with other complication, unspecified gastrointestinal tract location Procedures INFUSION THERAPY Annette Whitney MD 1 [facility] [place] [address] [facility] Ibd And [facility]astroenterology Center [address] [facility] 100 [place] [address] Referral ID Status Reason Start Date Expiration Date Visits Re quested Visits Authorized [id number] Closed 10/31/2022 01/28/2023 1 3 Reason for Visit * Reason Onset Date Comments Marley Mohan 08/17/2022 Encounter Details Date Type Department Care Team (Late st Contact Info) Description 08/17/2022 Telephone [facility] IBD and Gastroenterology Center [address] [facility] 100 [place] [address] Annette Whitney MD 1 [facility] [place] [phone] Marley Mohan Social History Tobacco Use Types [...] Coronavirus/COVID-19? No / Unsure 12/15/2022 2:36 PM MARKETING STRATEGY ANALYST documented as of this encounter Miscellaneous Notes * Addendum Note - Silva Anne - 01/02/2023 4:03 PM CDTAddended by: SILVA ANNE on: 01/02/2023 04:03 PM Modules accepted: Orders [...] on: 11/03/2022 12:00 PM Modules accepted: Orders ETING STRATEGY ANALYST * Telephone Encounter - Charlotte Gore RN - 10/04/2022 12:21 PM MARKETING STRATEGY ANALYST Appeal upheld. Denial information submitted to [employer]pro for bridge program. ETING STRATEGY ANALYST * Telephone Encounter - Sylvia Nguyễn CNA - 08/30/2022 2:37 PM CST Appeal was sent to [employer] ETING STRATEGY ANALYST * Telephone Encounter - Sylvia Nguyễn CNA [...] Description 02/13/2025 10:30 AM CDT Office Visit [facility] IBD and Gastroenterology Center [place] [address] [facility] 180 [place] [address] Kitty Dover, [facility] [address] [place] [address] [facility] 100 [place] [address] Scheduled Referrals Name Type Priority [...] C. diff 12/11/2022 12/09/2022 12/11/2022 1:26 PM MARKETING STRATEGY ANALYST documented as of this encounter Care Teams Subway Train Operator Relationship Specialty Start Date End Date Jasiel Freeman MD [address] [place] [address] PCP - General Family Practice 08/15/17 documented as of this encounter
--- OUTSIDE RECORDS SUMMARY | 2024-10-24 06:35 | XMS_ITS | Encounter Summary ---
Author Organization [facility] Address [address] [place] [address] Care Team Providers Care Rod Mill Operator Name Role Phone Jasiel Freeman MD Primary Care Provider [phone] Reason for Visit * Reason Comments Med Refill Encounter Details Date Type Department Care Team (Late st Contact Info) Description 12/30/2022 Refill [facility] IBD and Gastroenterology Center [address] [facility] 100 [place] [address] Annette Whitney MD [address] [facility] [address] [place] [address] Social History Tobacco Use Types Packs/Day Years [...] Coronavirus/COVID-19? No / Unsure 12/15/2022 2:36 PM RETAIL ZONE SPECIALIST documented as of this encounter Miscellaneous Notes [...] 02/13/2025 10:30 AM CDT Office Visit [facility] IBD and Gastroenterology Center [place] [address] [facility] [address] [place] [address] Kitty Dover ANP [address] [facility] 100 [place] [address] documented as of this encounter Visit Diagnoses Not on filedocumented in this encounter Additional Health Concerns Assessment Noted Time PHQ-9 Depression Total Score: 2 12/08/19 23 11:00 AM RETAIL ZONE SPECIALIST documented as of this encounter Care Teams Rod Mill Operator Relationship Specialty Start Date End Date Jasiel Freeman MD [address] [place] [phone] PCP - General Family Practice 08/15/17 documented as of this encounter
--- OUTSIDE RECORDS SUMMARY | 2024-10-24 06:35 | XMS_ITS | Encounter Summary ---
Author Organization [facility] Address [address] [facility] [address] Avila: [place] [address] Care Team Providers Care Senior Qualitative Researcher Name Role Phone Jasiel Freeman MD Primary [...] Coronavirus/COVID-19? No / Unsure 12/09/2022 1:02 PM HR ASSOCIATE documented as of this encounter Plan of Treatment Upcoming Encounters Date Type Department Care Team (Late st Contact Info) Description 02/13/2025 10:30 AM CDT Office Visit [facility] IBD and Gastroenterology Center [place] [address] [place] [address] Kitty Dover, ANP [address] [phone] documented as of this encounter Visit Diagnoses Not on filedocumented in this encounter Additional Health Concerns Assessment Noted Time PHQ-9 Depression Total Score: 2 12/08/19 23 11:00 AM HR ASSOCIATE documented as of this encounter Care Teams Senior Qualitative Researcher Relationship Specialty Start Date End Date Jasiel Freeman MD [address] [place] [phone] PCP - General Family Practice 08/15/17 documented as of this encounter
--- OUTSIDE RECORDS SUMMARY | 2024-10-24 06:35 | XMS_ITS | Encounter Summary ---
Author Organization [facility] Address [address] [place] [address] Care Team Providers Care Last Picker Name Role Phone Jasiel Freeman MD Primary Care Provider Reason for Visit * Reason Onset Date Comments Home Visit 12/26/2022 Encounter Details Date Type Department Care Team (Late st Contact Info) Description 12/26/2022 Patient Outreach [facility] Specialty and Home Infusion - [address] [place] [address] Irina Wyatt, RN Home Visit [...] Coronavirus/COVID-19? No / Unsure 12/15/2022 2:36 PM ORTHOTICS TECHNICIAN documented as of this encounter Last Filed Vital Signs Vital Sign Reading Time Taken Comments Blood Pressure 125/72 12/26/2022 2:00 PM ORTHOTICS TECHNICIAN Pulse 80 12/26/2022 2:00 PM ORTHOTICS TECHNICIAN Temperature 36.8 ??C (98.2 ??F) 12/26/2022 1:10 PM CS T Respiratory Rate 16 12/26/2022 2:00 PM ORTHOTICS TECHNICIAN Oxygen Saturation 95% 12/26/2022 2:00 PM ORTHOTICS TECHNICIAN Inhaled Oxygen Concentration - - Weight - - Height - - Body Mass Index - - documented in this encounter Miscellaneous Notes * Telephone Encounter - Irina Wyatt RN - 12/26/2022 7:11 PM CST Images from the original note were not included. [facility] Specialty and Home Infusion Pharmacy Home Infusion NURSING [facility] Edgardo Georgette Elkins [address] [address] Irina Wyatt RN 12/26/22 Visit start 1300 Visit end 141 Contact numbers provided including after hours numbers [...] infusion. Pt informed on importance of notifying [facility] Specialty Pharmacy immediately if any unexpected insurance changes occur. No problem observed with learning needs - No cultural, mandaeism, or language barriers to learning Patient and [...] and report fall risk to PCP. 1. FPC assessment and implementation of infusion [...] knows how to reorder medications. [facility] Specialty and Home Infusion Pharmacy [...] in approximately 4 weeks for Skyrizi infusion OTICS TECHNICIAN documented in this encounter Plan of Treatment Upcoming Encounters Date Type Department Care Team (Late st Contact Info) Description 02/13/2025 10:30 AM CDT Office Visit [facility] IBD and Gastroenterology Center [place] [address] [place] [address] Kitty Dover [facility] [address] [place] [address] [place] [address] documented as of this encounter Visit Diagnoses Not on filedocumented in this encounter Additional Health Concerns Assessment Noted Time PHQ-9 Depression Total Score: 2 12/08/19 23 11:00 AM ORTHOTICS TECHNICIAN documented as of this encounter Care Teams Last Picker Relationship Specialty Start Date End Date Jasiel Freeman MD [address] [place] [phone] PCP - General Family Practice 08/15/17 documented as of this encounter
--- OUTSIDE RECORDS SUMMARY | 2024-10-24 06:35 | XMS_ITS | Encounter Summary ---
Author Organization [facility] Address [address] [place] [address] Care Team Providers Care Software Engineer Sales Name Role Phone Jasiel Freeman MD Primary Care Provider Reason for Visit * Reason Comments Med Refill Encounter Details Date Type Department Care Team (Late st Contact Info) Description 11/06/2022 Refill [facility] IBD and Gastroenterology Center [address] [facility] 100 [place] [address] Annette Whitney MD [address] [facility] [address] [place] [address] Social History Tobacco Use Types Packs/Day Years [...] prior to the end of the year. [facility] paperwork updated today. Vitamin B12 [...] if not covered. Patient can go to [employer] to download a SAVINGS Card to pay less than $40 for the prep. Update vaccines including [id number] and shingrix. Follow up in [address] Nair. ROLL MACHINE OFFBEARER documented in this encounter Plan of Treatment Upcoming Encounters Date Type Department Care Team (Late st Contact Info) Description 02/13/2025 10:30 AM CDT Office Visit [facility] IBD and Gastroenterology Center [place] [address] [place] [address] Kitty Dover, ANP [address] [facility] 100 [place] [address] documented as of this encounter Visit Diagnoses Not on filedocumented in this encounter Care Teams Software Engineer Sales Relationship Specialty Start Date End Date Jasiel Freeman MD [address] [place] [phone] PCP - General Family Practice 08/15/17 documented as of this encounter
--- OUTSIDE RECORDS SUMMARY | 2024-10-24 06:35 | XMS_ITS | Encounter Summary ---
Author Organization [facility] Address [address] [place] [address] Care Team Providers Care Hand Pattern Marker Name Role Phone Jasiel Freeman MD Primary Care Provider Reason for Visit * Auth/Cert (Routine) Specialty Diagnoses / Procedures Referred By Contalka t Referred To Contact Perioperative Diagnoses Crohn's disease with fistula, unspecified gastrointestinal tract location Procedures CO NDSC EVAL INTSTINAL POUCH DX W/COLLJ SPEC SPX CHECKOUT POUCHOSCOPY Jessica Bejarano MD [address] [facility] [address] [place] [phone] [facility] Gi Lab [address] [place] [address] Referral ID Status Reason Start Date Expiration Date Visits Re quested Visits Authorized [id number] 1 1 Encounter Details Date Type Department Care Team (Late st Contact Info) Description 08/06/2024 7:50 AM CDT Anesthesia Event [facility] GI Lab S [facility] [address] [place] [address] Louis Klein MD [address] [place] [address] Senait Salgado AA-C [address] [place] [facility] [place] [place] [address] Anesthesia Record Procedure Summary Procedure Name Responsible [...] discussed with Patient. Plan discussed with Anesthesiologist Geodetic Surveyor. Smoking Compliance patient did not smoke on day of surgery GI Lab Pre-Anesthesia Evaluation - Long Form 08/06/2024 8:02 AM Name: Edgardo Elkins Age: 53 y.o. Sex: male [facility]: [id number] Procedure: Procedure(s): CHECKOUT POUCHOSCOPY Surgeons/Assistants: Surgeons and [...] 2002 HX HIP REPLACEMENT, TOTAL Left 10/08/2017 CO COLONOSCOPY FLX DX W/COLLJ SPEC WHEN PFRMD 12/08/2009 COLONOSCOPY performed by LOUISE RIZO at [facility] GI LAB CO COLONOSCOPY FLX DX W/COLLJ SPEC WHEN PFRMD 06/09/[address] performed by Lane Ryan MD at [facility] GI LAB CO DILAT RCT STRIX SPX UNDER ANES OTH/THN LOCAL 06/12/2012 RECTAL STRICTURE DILATATION performed by Lane Ryan MD at [facility] GI LAB CO ENDOSCOPY UPPER SMALL INTESTINE 06/12/2012 SMALL BOWEL ENTEROSCOPY performed by Lane Ryan MD at [facility] GI LAB CO ENDOSCOPY UPPER SMALL INTESTINE N/A 08/24/2017 SMALL BOWEL ENTEROSCOPY performed by Lane Ryan MD at [facility] GI LAB CO ENDOSCOPY UPPER SMALL INTESTINE W/BIOPSY 02/28/2012 BOWEL SMALL BIOPSY ENDOSCOPIC performed by Lane Ryan MD at [facility] GI LAB CO ESOPHAGOGASTRODUODENOSCOPY TRANSORAL DIAGNOSTIC 02/28/2012 [address]ENOSCOPY performed by Lane Ryan MD at [facility] GI LAB CO NDSC EVAL INTSTINAL POUCH DX W/COLLJ SPEC SPX 02/16/2012 POUCHOSCOPY performed by Louise Rizo MD at [facility] GI LAB CO NDSC EVAL INTSTINAL POUCH DX W/COLLJ SPEC SPX N/A 08/15/2022 POUCHOSCOPY performed by Annette Whitney MD at [facility] CO SIGMOIDOSCOPY FLX DX W/COLLJ SPEC BR/WA IF PFRMD 02/16/2012 SIGMOIDOSCOPY FLEXIBLE performed by Louise Rizo MD at [facility] GI LAB CO SIGMOIDOSCOPY FLX DX W/COLLJ SPEC BR/WA IF PFRMD N/A 06/12/2020 CHECKOUT SIGMOIDOSCOPY FLEXIBLE performed by Annette Whitney MD at [facility] GI LAB Social History Tobacco Use [...] CDT Office Visit [facility] IBD and Gastroenterology Center [place] [address] [place] [address] Kitty Dover ANP [address] [place] [address] documented as of this encounter [...] Total Score: 2 12/08/19 23 11:00 AM GLUER MACHINE OPERATOR documented as of this encounter Care Teams Hand Pattern Marker Relationship Specialty Start Date End Date Jasiel Freeman MD [address] [place] [phone] PCP - General Family Practice 08/15/17 documented as of this encounter
--- OUTSIDE RECORDS SUMMARY | 2024-10-24 06:35 | XMS_ITS | Encounter Summary ---
Author Organization [facility] Address [address] [place] [address] Care Team Providers Care Water Pipe Installer Name Role Phone Jasiel Freeman MD Primary [...] [facility] [place] [address] [place] [address] Kitty Dover, MIRTA [address] [place] [address] documented as of this encounter Visit Diagnoses Not on filedocumented in this encounter Additional Health Concerns Assessment Noted Time PHQ-9 Depression Total Score: 2 12/08/19 23 11:00 AM RECREATION CLERK documented as of this encounter Care Teams Water Pipe Installer Relationship Specialty Start Date End Date Jasiel Freeman MD [address] [place] [address] PCP - General Family Practice 08/15/17 documented as of this encounter
--- OUTSIDE RECORDS SUMMARY | 2024-10-24 06:35 | XMS_ITS | Encounter Summary ---
Author Organization [facility] Address [address] [place] [address] Care Team Providers Care Product Analyst Name Role Phone Jasiel Freeman MD Primary Care Provider [phone] Encounter Details Date Type Department Care Team (Late st Contact Info) Description 10/11/2022 Specialty Pharmacy [facility] Specialty and Home Infusion - [address] [place] [address] Belen Matt PHARMACIST Social History [...] Matt PHARMACIST - 10/11/2022 12:42 PM CST [facility] Specialty & Home Infusion Patient Name: Edgardo Eklins Home Infusion Orders Medication: Entyvio 300 mg [...] orders: No labs needed Nursing Provided by [facility] and [facility] Infusion [facility] Therapy Specific Entyvio (vedolizumab) The most common infusion reactions of Entyvio include: Common cold Headache Joint pain Nausea Fever Infections of the nose and throat Tiredness Cough Bronchitis Flu Back pain Rash Itching Sinus infection Throat pain Pain in extremities Note: COOKER SYRUP to observe patient during infusion and monitor [...] Reema, Charissa, [place], Latin Maame, and [place]) False Persons who visit areas with a [...] Delivery Instructions: deliver 10/12/22 via same day domain architect Note: General Information for this assessment provided by [employer] record + patient HIPAA contact identified: Yes Note: ???Welcome Packet?? been provided to the patient Yes Note: Provided with initial delivery / via [facility] Additional Notes Pharmacy communicated/coordinated with MD chemical laboratory technician? Yes Follow up notes for next encounter? [...] of complications Prevention of adverse drug events FIBER TAKER OFF documented in this encounter Plan of Treatment Upcoming Encounters Date Type Department Care Team (Late st Contact Info) Description 02/13/2025 10:30 AM CDT Office Visit [facility] IBD and Gastroenterology Center [place] [address] [facility] 180 [place] [address] Kitty Dover, MIRTA [address] [facility] 100 [place] [address] documented as of this encounter Visit Diagnoses Not on filedocumented in this encounter Care Teams Product Analyst Relationship Specialty Start Date End Date Jasiel Freeman MD [address] [place] [phone] PCP - General Family Practice 08/15/17 documented as of this encounter
--- OUTSIDE RECORDS SUMMARY | 2024-10-24 06:35 | XMS_ITS | Encounter Summary ---
Author Organization [facility] Address [address] [place] [address] Care Team Providers Care Epidemiology Internship Name Role Phone Jasiel Freeman MD Primary Care Provider [phone] Encounter Details Date Type Department Care Team [...] [facility] [place] IBD and Gastroenterology Center [place] [address] [place] [address] Kitty Dover, MIRTA [address] [place] [address] documented as of this encounter Visit Diagnoses Not on filedocumented in this encounter Additional Health Concerns Assessment Noted Time PHQ-9 Depression Total Score: 2 12/08/19 23 11:00 AM RESEARCH HOME ECONOMIST documented as of this encounter Care Teams Epidemiology Internship Relationship Specialty Start Date End Date Jasiel Freeman MD [address] [place] [address] PCP - General Family Practice 08/15/17 documented as of this encounter
--- OUTSIDE RECORDS SUMMARY | 2024-10-24 06:35 | XMS_ITS | Encounter Summary ---
Author Organization [facility] Address [address] [place] [address] Care Team Providers Care Welt Rougher Name Role Phone Jasiel Freeman MD Primary Care Provider [phone] Reason for Visit * Reason Onset Date Comments Home Visit 01/23/2023 Skyrizi Dose 3 Encounter Details Date Type Department Care Team (Late st Contact Info) Description 01/23/2023 Patient Outreach [facility] Specialty and Home Infusion - [address] [place] [address] Ebony Cruz, RN Home Visit [...] the original note were not included. [facility] Pharm[facility] Skyrizi Infusion Dose 3 Edgardo Elkins 1970 [id number] [facility] [address] Provider - Ebony Cruz RN 01/23/2023 Visit [...] Yes Pt informed on importance of notifying [facility] immediately if any unexpected insurance [...] will be documented on flowsheet: N 1. assisted assessment and implementation of infusion [...] Patient knows how to reorder medications. [facility]fusion Pharm[facility] will dispense [...] 02/13/2025 10:30 AM CDT Office Visit [facility] Gastro[facility]ology [facility] [place] [address] [place] [address] Kitty Dover ANP [address] [place] [address] documented as of this encounter Visit Diagnoses Not on filedocumented in this encounter Additional Health Concerns Assessment Noted Time PHQ-9 Depression Total Score: 2 12/08/19 23 11:00 AM DIETETICS DIRECTOR documented as of this encounter Care Teams Welt Rougher Relationship Specialty Start Date End Date Jasiel Freeman MD [address] [place] [phone] PCP - General Family Practice 08/15/17 documented as of this encounter
--- OUTSIDE RECORDS SUMMARY | 2024-10-24 06:35 | XMS_ITS | Encounter Summary ---
Author Organization [facility] Address [address] [place] [address] Care Team Providers Care Liquor Bridge Operator Helper Name Role Phone Jasiel Freeman [...] Description 02/13/2025 10:30 AM CDT Office Visit [facility] IBD [facility] Gastroenterology [facility] [place] [address] [place] [address] Kitty Dover, MIRTA [address] [place] [address] documented as of this encounter Visit Diagnoses Not on filedocumented in this encounter Additional Health Concerns Assessment Noted Time PHQ-9 Depression Total Score: 2 12/08/19 23 11:00 AM OFFICE MACHINES TEACHER documented as of this encounter Care Teams Liquor Bridge Operator Helper Relationship Specialty Start Date End Date Jasiel Freeman MD [address] [place] [address] PCP - General Family Practice 08/15/17 documented as of this encounter
--- OUTSIDE RECORDS SUMMARY | 2024-10-24 06:35 | XMS_ITS | Encounter Summary ---
Author Organization [facility] Address [address] Avila: [place] [address] Care Team Providers Care Detailer Pharmaceuticals Name Role Phone Jasiel Freeman MD Primary [...] Coronavirus/COVID-19? No / Unsure 12/14/2022 8:15 AM PRIMARY CARE MD documented as of this encounter Plan of Treatment Upcoming Encounters Date Type Department Care Team (Late st Contact Info) Description 02/13/2025 10:30 AM CDT Office Visit [facility] IBD and Gastroenterology [facility] [place] [address] [place] [address] Kitty Dover, ANP [address] [phone] documented as of this encounter Visit Diagnoses Not on filedocumented in this encounter Additional Health Concerns Assessment Noted Time PHQ-9 Depression Total Score: 2 12/08/19 23 11:00 AM PRIMARY CARE MD documented as of this encounter Care Teams Detailer Pharmaceuticals Relationship Specialty Start Date End Date Jasiel Freeman MD [address] [place] [phone] PCP - General Family Practice 08/15/17 documented as of this encounter
--- OUTSIDE RECORDS SUMMARY | 2024-10-24 06:35 | XMS_ITS | Encounter Summary ---
Author Organization [facility] Address [address] [place] [address] Care Team Providers Care Freezing Machine Operator Name Role Phone Jasiel Freeman MD Primary Care Provider Reason for Visit * Auth/Cert (Routine) Specialty Diagnoses / Procedures Referred By Lambert pizarro Referred To Contact Perioperative Diagnoses Crohn's disease with fistula, unspecified gastrointestinal tract location Procedures [place] NDSC EVAL INTSTINAL POUCH DX W/COLLJ SPEC SPX CHECKOUT POUCHOSCOPY Jessica Bejarano MD [address] [place] [phone] [facility] Gi Lab [address] [place] [phone] Referral ID Status Reason Start Date Expiration Date Visits Re quested Visits Authorized [id number] 1 1 Encounter Details Date Type Department Care Team (Latest Contact Info) Description 08/06/2024 7:22 AM CDT - 08/06/2024 9:03 AM CDT Hospital [facility] [address] [place] [address] Jessica Bejarano MD [address] [place] [phone] Crohn's disease with fistula, unspecified gastrointestinal [...] procedure, you will be notified by your Safello Account with the results. If you do not have a Safello account, you will receive a letter in the mail. If you have not been notified within two weeks, please call the office. Please NEVER assume that your results are fine if you do not hear from me. It is always possible that results did not get relayed to my o ffice or were somehow overlooked. [facility] Inflammatory Bowel Disease and Gastroenterology Center [address] [place] [address] Other important numbers to add to our contact info: After hours physician exchange: [phone] To schedule another procedure: Endoscopy Scheduling [phone] Thank you very much for choosing [facility] Gastroenterology. Jessica Bejarano MD [facility] Inflammatory Bowel Disease/Gastroenterology documented in this encounter [...] Bejarano MD - 08/06/2024 7:55 AM CDT [facility] Pre-Endoscopy History & Physical Date: 08/06/2024 Patient: Edgardo Elkins / 53 y.o. / male : 1970 CSN: [id number] Planned procedure: Pouchoscopy with possible biopsy/polypectomy Chief [...] 2001 HX HIP REPLACEMENT, TOTAL Left 10/08/2017 [place] COLONOSCOPY FLX DX W/COLLJ SPEC WHEN PFRMD 12/08/2009 COLONOSCOPY performed by LOUISE SOTELO at [facility] GI LAB [place] COLONOSCOPY FLX DX W/COLLJ SPEC WHEN PFRMD 06/09/2014 COLONOSCOPY performed by Lane Ryan MD at [facility] GI LAB [place] DILAT RCT STRIX SPX UNDER ANES OTH/THN LOCAL 06/12/2012 RECTAL STRICTURE DILATATION performed by Lnae Ryan MD at [facility] GI LAB [place] ENDOSCOPY UPPER SMALL INTESTINE 06/12/2012 SMALL BOWEL ENTEROSCOPY performed by Lane Ryan MD at [facility] GI LAB [place] ENDOSCOPY UPPER SMALL INTESTINE N/A 08/24/2017 SMALL BOWEL ENTEROSCOPY performed by Lane Ryan MD at [facility] GI LAB [place] ENDOSCOPY UPPER SMALL INTESTINE W/BIOPSY 02/28/2012 BOWEL SMALL BIOPSY ENDOSCOPIC performed by Lane Ryan MD at [facility] GI LAB [place] ESOPHAGOGASTRODUODENOSCOPY TRANSORAL DIAGNOSTIC 02/28/2012 ESOPHAGOGASTRODUODENOSCOPY performed by Lane Ryan MD at [facility] GI LAB [place] NDSC EVAL INTSTINAL POUCH DX W/COLLJ SPEC SPX 02/16/2012 POUCHOSCOPY performed by Louise Sotelo MD at [facility] GI LAB [place] NDSC EVAL INTSTINAL POUCH DX W/COLLJ SPEC SPX N/A 08/15/2022 POUCHOSCOPY performed by Annette Whitney MD at [facility] [place] SIGMOIDOSCOPY FLX DX W/COLLJ SPEC BR/WA IF PFRMD 02/16/2012 SIGMOIDOSCOPY FLEXIBLE performed by Louise Sotelo MD at [facility] GI LAB [place] SIGMOIDOSCOPY FLX DX W/COLLJ SPEC BR/WA IF PFRMD N/A 06/12/2020 CHECKOUT SIGMOIDOSCOPY FLEXIBLE performed by Annette Whitney MD at [facility] GI LAB Social History Tobacco Use [...] procedure(s) as scheduled. Jessica Bejarano MD Gastroenterology [facility] documented in this encounter Procedure Notes * Jessica Bejarano MD - 08/06/2024 12:05 PM CDTAssociated Order(s): POUCHOSCOPY REPORT [facility] Endoscopy Patient Name: Edgardo [...] of Addenda: [address]; [place] [address] * Gilma Calix RN - 07/16/2024 10:32 AM CDT Checkout Procedure Information Prep: Pouchoscopy prep- 1 day clears with 1 bottle mag citrate evening before procedure per DIGITAL RECRUITER Stanislaw Instructions: Email Blood Thinners: None Outpatient Candidate: Yes documented in this encounter OR Notes * Zarina-OP - Marilynn Pate RN - 08/06/2024 7:25 AM CDT Images from the original note were not included. [facility] ANES Routine Pre-Anesthesia Protocol for GI Lab Procedures [facility] Approved by: [facility]-Medical Executive Committee Approval Date: 12/07/2023 ORDERS ARE ENTERED ???PER PROTOCOL?? Enter the protocol in the patient???s electronic health record using Digital Dandelionphrase: .anestprotocolgilab Nursing Orders: Monitoring Obtain and record [...] appropriate, may confirm POC with: Nursing Only [id number] (this lab can be obtained at no cost to the patient when confirming a critical high or Critical low POC glucose. See hypoglycemia protocol for additional orders if needed: [facility] ANES Adult Perianesthesia HYPOglycemia Protocol Notify any [...] unable to obtain urine, may obtain serum [id number]) All patients with potential for childbearing (menarche [...] from the original note were not included. [facility] Routine Pre-Anesthesia Protocol for GI Lab Procedures [facility] Approved by: [facility] [place]-Medical Executive Committee Approval Date: 12/07/2023 ORDERS ARE ENTERED ???PER PROTOCOL?? Enter the protocol in the patient???s electronic health record using 3D Datae: .anestprotocolgilab Nursing Orders: Monitoring Obtain and record vital signs on admission to community hospital Continuous vital signs (Non-invasive blood pressure, [...] appropriate, may confirm POC with: Nursing Only [id number] (this lab can be obtained at no cost to the patient when confirming a critical high or Critical low POC glucose. See hypoglycemia protocol for additional orders if needed: [facility] ANE Adult Perianesthesia HYPOglycemia Protocol Notify any [...] unable to obtain urine, may obtain serum [id number]) All patients with potential for childbearing (menarche [...] [facility] [place] [address] [place] [address] Kitty Dover, MIRTA [address] [place] [address] documented as of this encounter Procedures Procedure Name Priority Date/Time Associated Diagnosis Comments POUCHOSCOPY REPORT 08/06/2024 12:05 PM CDT PATHOLOGY Pathology 08/06/2024 8:16 AM CDT Crohn's disease with fistula, unspecified gastrointestinal tract location [place] NDSC EVAL INTSTINAL POUCH DX W/COLLJ SPEC SPX 08/06/2024 8:00 AM CDT Crohn's disease with fistula, unspecified gastrointestinal tract location Case Notes Mag citrate prep per Kavitha Dover PA- see Note in chart for clarification documented in this encounter Results * POUCHOSCOPY REPORT (08/06/2024 12:05 PM CDT) Narrative Procedure Note Jessica Bejarano MD - 08/06/2024 12:05 PM CDT [facility] Endoscopy Patient Name: Edgardo [...] to every 4 weeks - Follow-up with co 09/11 as scheduled - Follow-up pathology - Recommend half colon prep for next procedure given fair prep Jessica Bejarano MD 08/06/2024 8:22:40 AM This report has been signed electronically. Number of Addenda: [address]; [place] [address] Jessica Bejarano MD GI PROCEDURE [facility] DONALD[facility]DRICK * PATHOLOGY (08/06/2024 8:16 AM CDT) CASE REPORT Surgical Pathology Report ? Case: [id number] ? Authorizing Provider: ??Jessica Bejarano MD ?? Collected: ? 08/06/2024 08:16 AM ? Ordering Location: ? [facility] S [address] ??Received: ?08/06/2024 10:00 AM ? Pathologist: ? Rosalinda Leyva MD ? Specimens: ?? A) - Small Intestine, pouch bx ? B) - Colon, cuff bx ? C) - Colon, pouch polyp ? D) - Small Intestine, pre-pouch ileum bx ? 4 5:11 PM [facility] FINAL DIAGNOSIS Small intestine, pouch, biopsy: [...] granulomas or dysplasia identified 4 5:11 PM [facility] S DESCRIPTION The specimens are received [...] dimension. All are submitted in cassette D1. [facility] 4 5:11 PM [facility] MICROSCOPIC DESCRIPTION The slides are labeled [id number] and Edgardo Elkins. Sections from the small [...] granulomas, dysplasia or malignancy. 4 5:11 PM [facility] OPERATIVE PROCEDURE 1: POUCHOSCOPY 4 5:11 PM [facility] CLINICAL INFORMATION A Inflammation. R/o dysplasia. Inflammation. R/o dysplasia. Crohn's disease with fistula, unspecified gastrointestinal tract location [K50.913] K50.913-Crohn's disease with fistula, unspecified gastrointestinal tract location 4 5:11 PM [facility] COMMENT Special stain, immunohistochemical, and/or in situ hybridization results are interpreted with controls that demonstrate appropriate staining reactions. Note on use of immunohistochemistry reagents and in situ hybridization probes: These tests were developed and their performance characteristics determined by [facility], Department of Laboratory Medicine. [...] part or completely in the following laboratories: [facility], CLIA #[id number] [address] [place] [address] #[id number] [address] [place] [address] [facility], [place] #[id number] [address] [place] [address] This report was created with the Akimbo voice-activated dictation system. Inherent to this system is the possibility of syntax, grammar, punctuation and other errors that could impact the interpretation of the report. If there are interpretative questions about aspects of this report, please contact the performing pathologist. 5:11 PM CDT [facility] Tissue (Small Intestine) Collection / Unknown 08/06/2024 [...] splasia. Jessica Bejarano MD PATHOLOGY/CYTOLOG Y ORDERABLES [facility]# [id number] [address] [place] [address] documented in this encounter Visit Diagnoses Diagnosis [...] Total Score: 2 12/08/19 23 11:00 AM TUMBLERS SUPERVISOR documented as of this encounter Care Teams Freezing Machine Operator Relationship Specialty Start Date End Date Jasiel Freeman MD [address] [place] [phone] PCP - General Family Practice 08/15/17 documented as of this encounter
--- OUTSIDE RECORDS SUMMARY | 2024-10-24 06:35 | XMS_ITS | Encounter Summary ---
Author Organization [facility] Address [address] [place] [address] Care Team Providers Care Chocolate Temperer Name Role Phone Jasiel Freeman MD Primary [...] 10:30 AM CDT Office Visit [facility] IBD and Gastroenterology [facility] [place] [address] [place] [address] Kitty Dover, MIRTA [address] [place] [address] documented as of this encounter Visit Diagnoses Not on filedocumented in this encounter Additional Health Concerns Assessment Noted Time PHQ-9 Depression Total Score: 2 12/08/19 23 11:00 AM JOURNEYMAN PRESSMAN documented as of this encounter Care Teams Chocolate Temperer Relationship Specialty Start Date End Date Jasiel Freeman MD [address] [place] [address] PCP - General Family Practice 08/15/17 documented as of this encounter
--- OUTSIDE RECORDS SUMMARY | 2024-10-24 06:35 | XMS_ITS | Encounter Summary ---
Author Organization [facility] Address [address] [place] [address] Care Team Providers Care Brilliandeer Looper Name Role Phone Jasiel Freeman MD Primary Care Provider Reason for Visit * Reason Onset Date Comments Home Visit 09/14/2022 Encounter Details Date Type Department Care Team (Late st Contact Info) Description 09/14/2022 Patient Outreach [facility] Specialty and Home Infusion - [address] [place] [address] Irina Wyatt, RN Home Visit [...] Comments Blood Pressure 138/89 09/14/2022 3:30 PM DUMP OPERATOR Pulse 84 09/14/2022 3:30 PM DUMP OPERATOR Temperature 37.2 ??C (99 ??F) 09/14/2022 2:45 PM DUMP OPERATOR Respiratory Rate 16 09/14/2022 2:45 PM DUMP OPERATOR Oxygen Saturation 96% 09/14/2022 2:45 PM DUMP OPERATOR Inhaled Oxygen Concentration - - Weight - - Height - - Body Mass Index - - documented in this encounter Miscellaneous Notes * Telephone Encounter - Irina Wyatt RN - 09/14/2022 9:27 PM CST Images from the original note were not included. [facility] Home Infusion NURSING follow up Leonidas Elkins 1970 [address] [facility] [address] Provider - Irina Wyatt RN 09/14/2022 Visit [...] yes Pt informed on importance of notifying [facility] immediately if any unexpected insurance changes occur.yes No problem observed with learning needs - No cultural, jehovah's witness, or language barriers to learning Patient and [...] reactions. Patient knows how to reorder medications. [facility]ty [facility] Home Infusion Pharmacy [...] in approximately 4 weeks for Entyvio infusion OPERATOR documented in this encounter Plan of Treatment Upcoming Encounters Date Type Department Care Team (Late st Contact Info) Description 02/13/2025 10:30 AM CDT Office Visit [facility] IBD and Gastroenterology Center [place] [address] [place] [address] Kitty Dover, MIRTA [address] [facility] [address] [place] [address] documented as of this encounter Visit Diagnoses Not on filedocumented in this encounter Care Teams Brilliandeer Looper Relationship Specialty Start Date End Date Jasiel Freeman MD [address] [place] [phone] PCP - General Family Practice 08/15/17 documented as of this encounter
--- OUTSIDE RECORDS SUMMARY | 2024-10-24 06:35 | XMS_ITS | Encounter Summary ---
Author Organization [facility] Address [address] [place] [address] Care Team Providers Care Language Interpreter Name Role Phone Jasiel Freeman MD Primary Care Provider Encounter Details Date Type Department Care Team (Late st Contact Info) Description 11/14/2022 Specialty Pharmacy [facility] Specialty and Home Infusion - [address] [place] [address] Belen Matt PHARMACIST Social History [...] Matt PHARMACIST - 11/14/2022 10:42 AM CST [facility] Patient Name: [...] orders: No labs needed/ordered Nursing Provided by [facility] and [place] [facility] Therapy Specific Skyrizi Antibody formation: Formation [...] Logistics Information for this assessment provided by Arradiance record + patient + pharmacist, Jameson Jonh HIPAA contact identified? No Any changes to prescription/medical insurance or copay assistance? No Patient requires delivery to cover through 11/15/22 Pharmacy to send Skyrizi + IV supplies + JAYDA kit Delivery date: deliver 11/14/22 via same day guest relations coordinator Specific delivery Instructions: deliver after 6 pm [...] of complications Prevention of adverse drug events PRESSER documented in this encounter Plan of Treatment Upcoming Encounters Date Type Department Care Team (Late st Contact Info) Description 02/13/2025 10:30 AM CDT Office Visit [facility] IBD and Gastroenterology Center [place] [address] [place] [address] Kitty Dover ANP [address] [place] [address] [place] [address] documented as of this encounter Visit Diagnoses Not on filedocumented in this encounter Care Teams Language Interpreter Relationship Specialty Start Date End Date Jasiel Freeman MD [address] [place] [address] PCP - General Family Practice 08/15/17 documented as of this encounter
--- OUTSIDE RECORDS SUMMARY | 2024-10-24 06:35 | XMS_ITS | Encounter Summary ---
Author Organization [facility] Address [address] [place] [address] Care Team Providers Care Glassware Maker Demonstrator Name Role Phone Jsaiel Freeman MD Primary Care Provider Reason for Visit * Reason Comments Med Change Request Encounter Details Date Type Department Care Team (Late st Contact Info) Description 01/02/2023 [facility] IBD and Gastroenterology [facility] [address] [facility] [address] [place] [address] Annette Whitney MD [address] [facility] [place] [phone] Social History Tobacco Use Types Packs/Day Years [...] Coronavirus/COVID-19? No / Unsure 12/15/2022 2:36 PM BRICK SORTER documented as of this encounter Plan of Treatment Upcoming Encounters Date Type Department Care Team (Late st Contact Info) Description 02/13/2025 10:30 AM CDT Office Visit [facility] IBD and Gastroenterology Center [place] [address] [place] [address] Kitty Dover ANP [address] [place] [address] [place] [address] documented as of this encounter Visit Diagnoses Not on filedocumented in this encounter Additional Health Concerns Assessment Noted Time PHQ-9 Depression Total Score: 2 12/08/19 23 11:00 AM BRICK SORTER documented as of this encounter Care Teams Glassware Maker Demonstrator Relationship Specialty Start Date End Date Jasiel Freeman MD [address] [place] [phone] PCP - General Family Practice 08/15/17 documented as of this encounter
--- OUTSIDE RECORDS SUMMARY | 2024-10-24 06:35 | XMS_ITS | Encounter Summary ---
Author Organization [facility] Address [address] [place] [address] Care Team Providers Care Nail Feeder Name Role Phone Jasiel Freeman MD Primary Care Provider [phone] Encounter Details Date Type Department Care Team (Late st Contact Info) Description 01/20/[address] [facility] Specialty and Home Infusion - [address] [place] [address] Jameson Borja, PHARMACIST Social History [...] Borja, PHARMACIST - 01/20/2023 3:47 PM CDT [facility] Patient Name: [...] orders: No labs needed/ordered Nursing Provided by [facility] and [place] [facility] Therapy Specific Skyrizi Antibody formation: Formation [...] Logistics Information for this assessment provided by Qwenty record + patient HIPAA contact identified? No Any changes to prescription/medical insurance or copay assistance? No Patient requires delivery to cover through 01/23/23 Pharmacy to send Skyrizi + IV supplies Delivery date: deliver 01/20/23 via same day programming manager Specific delivery Instructions: Permission to leave delivered [...] [facility] [place] [address] [place] [address] Kitty Dover ANP [address] [place] [address] [place] [address] documented as of this encounter Visit Diagnoses Not on filedocumented in this encounter Additional Health Concerns Assessment Noted Time PHQ-9 Depression Total Score: 2 12/08/19 23 11:00 AM AUDIT SENIOR ASSOCIATE documented as of this encounter Care Teams Nail Feeder Relationship Specialty Start Date End Date Jasiel Freeman MD [address] [place] [phone] PCP - General Family Practice 08/15/17 documented as of this encounter
--- OUTSIDE RECORDS SUMMARY | 2024-10-24 06:35 | XMS_ITS | Encounter Summary ---
Author Organization [facility] Address [address] [place] [address] Care Team Providers Care Expeller Operator Name Role Phone Jasiel Freeman MD [...] [facility] IBD and Gastroenterology [facility] [place] [address] [place] [address] Kitty Dover, MIRTA [address] [place] [address] documented as of this encounter Visit Diagnoses Not on filedocumented in this encounter Additional Health Concerns Assessment Noted Time PHQ-9 Depression Total Score: 2 12/08/19 23 11:00 AM GENERAL HARDWARE SALESPERSON documented as of this encounter Care Teams Expeller Operator Relationship Specialty Start Date End Date Jasiel Freeman MD [address] [place] [phone] PCP - General Family Practice 08/15/17 documented as of this encounter
--- OUTSIDE RECORDS SUMMARY | 2024-10-24 06:35 | XMS_ITS | Encounter Summary ---
Author Organization [facility] Address [address] [place] [address] Care Team Providers Care Housing Manager Name Role Phone Jasiel Freeman MD Primary Care Provider Encounter Details Date Type Department Care Team (Late st Contact Info) Description 09/13/2022 Specialty Pharmacy [facility] Specialty and Home Infusion - [address] [place] [address] Belen Matt PHARMACIST Social History [...] orders: No labs needed Nursing Provided by [facility] Specialty and Home Infusion [facility] Therapy Specific Entyvio (vedolizumab) The most common infusion reactions of Entyvio include: Common cold Headache Joint pain Nausea Fever Infections of the nose and throat Tiredness Cough Bronchitis Flu Back pain Rash Itching Sinus infection Throat pain Pain in extremities Note: TOWER DIRECTOR to observe patient during infusion and monitor [...] Reema, Charissa, [place], [place], and [place]) False Persons who visit areas with a [...] Delivery Instructions: deliver 09/13/22 via same day practice administrator Note: General Information for this assessment provided by [employer] Record + Patient HIPAA contact identified: Yes Note: ???Welcome Packet?? been provided to the patient Yes Note: Provided with initial delivery [facility] Additional Notes Pharmacy communicated/coordinated with MD harvester operator? Yes Follow up notes for next encounter? [...] of complications Prevention of adverse drug events CULTURAL PURCHASING AGENT documented in this encounter Plan of Treatment Upcoming Encounters Date Type Department Care Team (Late st Contact Info) Description 02/13/2025 10:30 AM CDT Office Visit [facility] IBD [facility] Gastro[facility]ology [facility] [place] [address] [place] [phone] Kitty Dover, MIRTA [address] [place] [address] documented as of this encounter Visit Diagnoses Not on filedocumented in this encounter Care Teams Housing Manager Relationship Specialty Start Date End Date Jasiel Freeman MD [address] [place] [phone] PCP - General Family Practice 08/15/17 documented as of this encounter
--- OUTSIDE RECORDS SUMMARY | 2024-10-24 06:35 | XMS_ITS | Encounter Summary ---
Author Organization [facility] Address [address] [place] [address] Care Team Providers Care Cloth Doubling Machine Operator Name Role Phone Jasiel Freeman [...] [facility] [place] [address] [place] [address] Kitty Dover, MIRTA [address] [place] [address] documented as of this encounter Visit Diagnoses Not on filedocumented in this encounter Additional Health Concerns Assessment Noted Time PHQ-9 Depression Total Score: 2 12/08/19 23 11:00 AM RECEPTIONIST TELEPHONE OPERATOR documented as of this encounter Care Teams Cloth Doubling Machine Operator Relationship Specialty Start Date End Date Jasiel Freeman MD [address] [place] [address] PCP - General Family Practice 08/15/17 documented as of this encounter
--- OUTSIDE RECORDS SUMMARY | 2024-10-24 06:35 | XMS_ITS | Encounter Summary ---
Author Organization [facility] Address [address] [place] [address] Care Team Providers Care Motor Vehicle Lecturer Name Role Phone Jasiel Freeman MD Primary Care Provider Reason for Visit * Auth/Cert (Routine) Specialty Diagnoses / Procedures Referred By Lambert t Referred To Contact Perioperative Diagnoses Crohn's disease with fistula, unspecified gastrointestinal tract location Procedures [place] NDSC EVAL INTSTINAL POUCH DX W/COLLJ SPEC SPX CHECKOUT POUCHOSCOPY Jessica Bejarano MD [address] [place] [phone] [facility] Gi Lab [address] [place] [phone] Referral ID Status Reason Start Date Expiration Date Visits Re quested Visits Authorized [id number] 1 1 Encounter Details Date Type Department Care Team (Late st Contact Info) Description 08/06/2024 8:00 AM CDT - 08/06/2024 8:40 AM CDT Surgery [facility] GI Lab [id number] [place] [address] Jessica Bejarano MD [address] [place] [phone] CHECKOUT POUCHOSCOPY Surgery Details Date/Time Status Location OR Service Patient Class Case Class Case Type Trauma Case? 08/06/2024 8:00 AM Posted [facility] GI LAB GI 01 Gastroenterology Outpatient [...] procedure, you will be notified by your [employer] Account with the results. If you do not have a [employer] account, you will receive a letter in the mail. If you have not been notified within two weeks, please call the office. Please NEVER assume that your results are fine if you do not hear from me. It is always possible that results did not get relayed to my o ffice or were somehow overlooked. [facility] Inflammatory Bowel Disease and Gastroenterology Center [address] [place] [address]. [address] [place] [address] Other important numbers to add to our contact info: After hours physician exchange: [phone] To schedule another procedure: Endoscopy Scheduling [phone] Thank you very much for choosing [facility] Gastroenterology. Jessica Bejarano MD [facility] Inflammatory Bowel Disease/Gastroenterology documented in this [...] Bejarano MD - 08/06/2024 7:55 AM CDT [facility] Pre-Endoscopy History & Physical Date: 08/06/2024 Patient: Edgardo Elkins / 53 y.o. / male : 1970 CSN: [id number] Planned procedure: Pouchoscopy with possible biopsy/polypectomy Chief [...] 2001 HX HIP REPLACEMENT, TOTAL Left 10/08/2017 [place] COLONOSCOPY FLX DX W/COLLJ SPEC WHEN PFRMD 12/08/2009 COLONOSCOPY performed by LOUISE SOTELO at [facility] GI LAB [place] COLONOSCOPY FLX DX W/COLLJ SPEC WHEN PFRMD 06/09/2014 COLONOSCOPY performed by Lane Ryan MD at [facility] GI LAB [place] DILAT RCT STRIX SPX UNDER ANES OTH/THN LOCAL 06/12/2012 RECTAL STRICTURE DILATATION performed by Lane Ryan MD at [facility] GI LAB [place] ENDOSCOPY UPPER SMALL INTESTINE 06/12/2012 SMALL BOWEL ENTEROSCOPY performed by Lane Ryan MD at [facility] GI LAB MO ENDOSCOPY UPPER SMALL INTESTINE N/A 08/24/2017 SMALL BOWEL ENTEROSCOPY performed by Lane Ryan MD at [facility] GI LAB MO ENDOSCOPY UPPER SMALL INTESTINE W/BIOPSY 02/28/2012 BOWEL SMALL BIOPSY ENDOSCOPIC performed by Lane Ryan MD at [facility] GI LAB MO ESOPHAGOGASTRODUODENOSCOPY TRANSORAL DIAGNOSTIC 02/28/2012 ESOPHAGOGASTRODUODENOSCOPY performed by Lane Ryan MD at [facility] GI LAB [place] NDSC EVAL INTSTINAL POUCH DX W/COLLJ SPEC SPX 02/16/2012 POUCHOSCOPY performed by Louise Sotelo MD at [facility] GI LAB [place] NDSC EVAL INTSTINAL POUCH DX W/COLLJ SPEC SPX N/A 08/15/2022 POUCHOSCOPY performed by Annette Whitney MD at [facility] [place] SIGMOIDOSCOPY FLX DX W/COLLJ SPEC BR/WA IF PFRMD 02/16/2012 SIGMOIDOSCOPY FLEXIBLE performed by Louise Sotelo MD at [facility] GI LAB [place] SIGMOIDOSCOPY FLX DX W/COLLJ SPEC BR/WA IF PFRMD N/A 06/12/2020 CHECKOUT SIGMOIDOSCOPY FLEXIBLE performed by Annette Whitney MD at [facility] GI LAB Social History Tobacco Use [...] procedure(s) as scheduled. Jessica Bejarano MD Gastroenterology [facility] documented in this encounter Procedure Notes * Jessica Bejarano MD - 08/06/2024 12:05 PM CDTAssociated Order(s): POUCHOSCOPY REPORT [facility] Endoscopy Patient Name: Edgardo Elkins [...] to every 4 weeks - Follow-up with nd 09/11 as scheduled - Follow-up pathology - Recommend half colon prep for next procedure given fair prep Jessica Bejarano MD 08/06/2024 8:22:40 AM This report has been signed electronically. Number of Addenda: [phone] ; [place] [address] * Gilma Calix RN - 07/16/2024 10:32 [...] Routine Pre-Anesthesia Protocol for GI Lab Procedures [facility] Approved by: [facility]-Medical Executive Committee Approval Date: 12/07/2023 ORDERS ARE ENTERED ???PER PROTOCOL?? Enter the protocol in the patient???s electronic health record using ReachLocale: .anestprotocolgilab Nursing Orders: Monitoring Obtain and record vital signs on admission to [facility] Continuous vital signs (Non-invasive blood [...] appropriate, may confirm POC with: Nursing Only [id number] (this lab can be obtained at no [...] unable to obtain urine, may obtain serum [id number]) All patients with potential for childbearing (menarche [...] from the original note were not included. [facility] Routine Pre-Anesthesia Protocol for GI Lab Procedures [facility] Approved by: [facility]-Medical Executive Committee Approval Date: 12/07/2023 ORDERS ARE ENTERED ???PER PROTOCOL?? Enter the protocol in the patient???s electronic health record using ReachLocale: .anestprotocolgilab Nursing Orders: Monitoring Obtain and record vital signs on admission to [facility] Continuous vital signs (Non-invasive blood [...] appropriate, may confirm POC with: Nursing Only [id number] (this lab can be obtained at no cost to the patient when confirming a critical high or Critical low POC glucose. See hypoglycemia protocol for additional orders if needed: [facility] Adult Perianesthesia HYPOglycemia Protocol Notify any provider [...] unable to obtain urine, may obtain serum [id number]) All patients with potential for childbearing (menarche [...] [facility] [place] [address] [facility] [address] [place] [address] Kitty Dover, [facility] [address] [facility] [address] [place] [address] documented as of this encounter Procedures Procedure Name Priority Date/Time Associated Diagnosis Comments POUCHOSCOPY REPORT 08/06/2024 12:05 PM CDT PATHOLOGY Pathology 08/06/2024 8:16 AM CDT Crohn's disease with fistula, unspecified gastrointestinal tract location [place] NDSC EVAL INTSTINAL POUCH DX W/COLLJ SPEC SPX 08/06/2024 8:00 AM CDT Crohn's disease with fistula, unspecified gastrointestinal tract location Case Notes Mag citrate prep per Kavitha COON- see Note in chart for clarification documented in this encounter Results * POUCHOSCOPY REPORT (08/06/2024 12:05 PM CDT) Narrative Procedure Note Jessica Bejarano MD - 08/06/2024 12:05 PM CDT [facility] Endoscopy Patient Name: Edgardo Elkins [...] Addenda: [address]; [place] [address] Jessica Bejarano MD GI PROCEDURE ORDE RABLES * PATHOLOGY (08/06/2024 8:16 AM CDT) CASE REPORT Surgical Pathology Report ? Case: [id number] ? Authorizing Provider: ??Jessica Bejarano MD ?? Collected: ? 08/06/2024 08:16 AM ? Ordering Location: ? [facility] GI Lab [address] ??Received: ?08/06/2024 10:00 AM ? Pathologist: ? Rosalinda Leyva MD ? Specimens: ?? A) - Small Intestine, pouch bx ? B) - Colon, cuff bx ? C) - Colon, pouch polyp ? D) - Small Intestine, pre-pouch ileum bx ? 4 5:11 PM [facility] FINAL DIAGNOSIS Small intestine, pouch, [...] granulomas or dysplasia identified 4 5:11 PM [facility] S DESCRIPTION The specimens are [...] in cassette D1. EL 4 5:11 PM [facility] MICROSCOPIC DESCRIPTION The slides are labeled [id number] and Edgardo Elkins. Sections from the small [...] granulomas, dysplasia or malignancy. 4 5:11 PM [facility] OPERATIVE PROCEDURE 1: POUCHOSCOPY 4 5:11 PM [facility] CLINICAL INFORMATION A Inflammation. R/o dysplasia. Inflammation. R/o dysplasia. Crohn's disease with fistula, unspecified gastrointestinal tract location [K50.913] K50.913-Crohn's disease with fistula, unspecified gastrointestinal tract location 4 5:11 PM [facility] COMMENT Special stain, immunohistochemical, and/or in situ hybridization results are interpreted with controls that demonstrate appropriate staining reactions. Note on use of immunohistochemistry reagents and in situ hybridization probes: These tests were developed and their performance characteristics determined by [facility], Department of Laboratory Medicine. It [...] part or completely in the following laboratories: [facility], [facility] #[id number] [facility] [place] [address] [facility], [place] #[id number] [address] [place] [address] [facility]/[place], [place] #[id number] [address] [facility] [place] [address] This report was created with the [employer] voice-activated dictation system. Inherent to this system is the possibility of syntax, grammar, punctuation and other errors that could impact the interpretation of the report. If there are interpretative questions about aspects of this report, please contact the performing pathologist. 5:11 PM CDT [facility] Tissue (Small Intestine) Collection / Unknown 08/06/2024 [...] splasia. Jessica Bejarano MD PATHOLOGY/CYTOLOG Y ORDERABLES [id number] [address] [place] [address] documented in this encounter Visit Diagnoses Diagnosis [...] Total Score: 2 12/08/19 23 11:00 AM TIE KNITTER HELPER documented as of this encounter Care Teams Motor Vehicle Lecturer Relationship Specialty Start Date End Date Jasiel Freeman MD [address] [place] [phone] PCP - General Family Practice 08/15/17 documented as of this encounter
--- OUTSIDE RECORDS SUMMARY | 2024-10-24 06:35 | XMS_ITS | Encounter Summary ---
Author Organization [facility] Address [address] [place] [address] Care Team Providers Care Analysis Analyst Name Role Phone Jasiel Freeman MD Primary Care Provider Reason for Visit * Reason Comments Ulcerative Colitis Encounter Details Date Type Department Care Team (Latest Contact Info) Description 09/11/2024 12:30 PM REHAB LIAISON Office Visit [facility] [place] [address] [facility] [address] [place] [address] Jessica Bejarano MD [address] [facility] [address] [place] [address] Crohn's disease of small intestine [...] Comments Blood Pressure 137/88 09/11/2024 12:24 PM REHAB LIAISON Pulse 94 09/11/2024 12:24 PM REHAB LIAISON Temperature 37.9 ??C (100.2 ??F) 09/11/2024 12:24 PM REHAB LIAISON Respiratory Rate 19 09/11/2024 12:24 PM REHAB LIAISON Oxygen Saturation 94% 09/11/2024 12:24 PM REHAB LIAISON Inhaled Oxygen Concentration - - Weight 81.8 kg (180 lb 6.4 oz) 09/11/2024 12:24 PM REHAB LIAISON Height 175.3 cm (5' 9 ) 09/11/2024 12:24 PM REHAB LIAISON Body Mass Index 26.64 09/11/2024 12:24 PM REHAB LIAISON documented in this encounter Progress Notes * Jessica Bejarano MD - 09/11/2024 12:30 PM CST [facility] Jessica Bejarano MD [...] 2001 HX HIP REPLACEMENT, TOTAL Left 10/08/2017 [place] COLONOSCOPY FLX DX W/COLLJ SPEC WHEN PFRMD 12/08/2009 COLONOSCOPY performed by LOUISE RIZO at [facility] GI LAB [place] COLONOSCOPY FLX DX W/COLLJ SPEC WHEN PFRMD 06/09/[address] performed by Lane Ryan MD at [facility] GI LAB [place] DILAT RCT STRIX SPX UNDER ANES OTH/THN LOCAL 06/12/2012 RECTAL STRICTURE DILATATION performed by Lane Ryan MD at [facility] GI LAB [place] ENDOSCOPY UPPER SMALL INTESTINE 06/12/2012 SMALL BOWEL ENTEROSCOPY performed by Lane Ryan MD at [facility] GI LAB [place] ENDOSCOPY UPPER SMALL INTESTINE N/A 08/24/2017 SMALL BOWEL ENTEROSCOPY performed by Lane Ryan MD at [facility] GI LAB [place] ENDOSCOPY UPPER SMALL INTESTINE W/BIOPSY 02/28/2012 BOWEL SMALL BIOPSY ENDOSCOPIC performed by Lane Ryan MD at [facility] GI LAB [place] ESOPHAGOGASTRODUODENOSCOPY TRANSORAL DIAGNOSTIC 02/28/2012 ES[address]HAGOGASTRODUODENOSCOPY performed by Lane yRan MD at [facility] GI LAB [place] NDSC EVAL INTSTINAL POUCH DX W/COLLJ SPEC SPX 02/16/2012 POUCHOSCOPY performed by Louise Rizo MD at [facility] GI LAB [place] NDSC EVAL INTSTINAL POUCH DX W/COLLJ SPEC SPX N/A 08/15/2022 POUCHOSCOPY performed by Annette Whitney MD at [facility] [place] NDSC EVAL INTSTINAL POUCH DX W/COLLJ SPEC SPX N/A 08/06/2024 CHECKOUT POUCHOSCOPY performed by Jessica Bejarano MD at [facility] GI LAB [place] SIGMOIDOSCOPY FLX DX W/COLLJ SPEC BR/WA IF PFRMD 02/16/2012 SIGMOIDOSCOPY FLEXIBLE performed by Louise Rizo MD at [facility] GI LAB [place] SIGMOIDOSCOPY FLX DX W/COLLJ SPEC BR/WA IF PFRMD N/A 06/12/2020 CHECKOUT SIGMOIDOSCOPY FLEXIBLE performed by Annette Whitney MD at [facility] GI LAB Family History Problem Relation Name Age of Onset Heart Disease Father Hypertension Mother Healthy Sister Healthy Brother Colon Cancer Neg Hx Social History Socioeconomic History Marital status: Spouse name: Not on file Number of children: Not on file Years of education: Not on file Highest education level: Not on file Occupational History Employer: [employer] Employer: [employer] Tobacco Use Smoking status: Former Current packs/day: [...] iron deficient plan for IV iron. 6. [facility] paperwork, will complete and send back [...] Stop the budesonide Get labs done at [facility] or any [facility] lab Take 2,000 mcg daily of vitamin B12 - you can buy this over the counter Try to limit ibuprofen as much as you can Follow-up in in 5 months with Kitty damon given exacerbation of chronic disease with monitoring of labs, imaging and high risk Rx. Jessica Bejarano MD [facility] CC: Jasiel Freeman MD [...] Misc.(Non-Drug; Combo Route) route., Disp: , Rfl: B LIAISON documented in this encounter Miscellaneous Notes * Patient Instructions - Jessica Bejarano MD - 09/11/2024 12:37 PM REHAB LIAISON Thank you for entrusting your healthcare to the physicians at [facility] Following your visit, you may receive a survey via email or Virtual Event Bags. Dr. Bejarano encourages you to respond to this confidential survey about your care. If you received excellent care, Dr. Bejarano would appreciate your evaluation. Your feedback helps us to provide quality service at every visit. Thank you for your help in making our practice meet the highest expectations! [facility] [address] [place] [address] [place] [address] Other important numbers to add to our contact info: After hours physician exchange: [phone] or MRI: Call [phone] To schedule an EGD/Colonoscopy/Flexible Sigmoidoscopy: Call [phone] IMPORTANT: The following information and instructions are from your visit today: Continue skyrizi every 8 weeks Stop the budesonide Get labs done at [facility] or any [facility] lab Take 2,000 mcg daily of vitamin B12 - you can buy this over the counter Try to limit ibuprofen as much as you can Follow-up in in 5 months with Kitty Bejarano MD [facility] B LIAISON documented in this encounter Plan of Treatment Upcoming Encounters Date Type Department Care Team (Late st Contact Info) Description 02/13/2025 10:30 AM CDT Office Visit [facility] [place] [address] [place] [address] Kitty Dover, MIRTA [address] [place] [address] Scheduled Orders Name Type Priority [...] Total Score: 2 12/08/19 23 11:00 AM REHAB LIAISON documented as of this encounter Care Teams Analysis Analyst Relationship Specialty Start Date End Date Jasiel Freeman MD [address] [place] [phone] PCP - General Family Practice 08/15/17 documented as of this encounter
--- OUTSIDE RECORDS SUMMARY | 2024-10-24 06:35 | XMS_ITS | Encounter Summary ---
Author Organization [facility] Address [address] [place] [address] Care Team Providers Care Mold Repairer Name Role Phone Jasiel Freeman MD Primary Care Provider Reason for Referral * Radiology Services (Routine) - Closed Specialty Diagnoses / Procedures Referred By Contac t Referred To Contact Diagnoses Elevated LFTs Procedures US LIVER Annette Whitney MD [facility] [place] [address] Referral ID Status Reason Start Date Expiration Date Visits Re quested Visits Authorized [id number] Closed 12/09/2022 01/09/2024 1 1 ATIONAL FUNDRAISING DIRECTOR Reason for Visit * Radiology Services (Routine) - Closed Specialty Diagnoses / Procedures Referred By Contac t Referred To Contact Diagnoses Elevated LFTs Procedures US LIVER Annette Whitney MD [address] [facility] [place] [address] Referral ID Status Reason Start Date Expiration Date Visits Re quested Visits Authorized [id number] Closed 12/09/2022 01/09/2024 1 1 Encounter Details Date Type Department Care Team (Latest Contact Info) Description 12/15/2022 2:41 PM EDUCATIONAL FUNDRAISING DIRECTOR - 12/15/2022 11:59 PM EDUCATIONAL FUNDRAISING DIRECTOR Hospital Encounter [facility] [address] [place] [address] Annette Whitney MD [address] [facility] [place] [address] Discharge Disposition: Home or Self Care Social [...] Coronavirus/COVID-19? No / Unsure 12/15/2022 2:36 PM EDUCATIONAL FUNDRAISING DIRECTOR documented as of this encounter Medications at [...] youfor trusting Eleanor with your care. Your [facility] Imaging Services Care Team ATIONAL FUNDRAISING DIRECTOR documented in this encounter Plan of Treatment Upcoming Encounters Date Type Department Care Team (Late st Contact Info) Description 02/13/2025 10:30 AM CDT Office Visit [facility] IBD and Gastroenterology [facility] [place] [address] [place] [address] Kitty Dover ANP [address] [place] [address] documented as of this encounter Procedures Procedure Name Priority Date/Time Associated Diagnosis Comments US LIVER Routine 12/15/2022 3:44 PM EDUCATIONAL FUNDRAISING DIRECTOR Elevated LFTs documented in this encounter Results * US LIVER (12/15/2022 3:44 PM EDUCATIONAL FUNDRAISING DIRECTOR) Anatomical Region Laterality Modality Abdomen Ultrasound 12/15/2022 3:53 PM EDUCATIONAL FUNDRAISING DIRECTOR Impressions 12/15/2022 4:08 PM EDUCATIONAL FUNDRAISING DIRECTOR IMPRESSION: 1. Cholelithiasis without sonographic evidence of acute cholecystitis. 2. Incidentally noted 6 mm nonobstructing stone in the midpole right kidney. DICTATION LOCATION: Location 1 - [facility] Narrative 12/15/2022 4:08 PM EDUCATIONAL FUNDRAISING DIRECTOR EXAMINATION: LIMITED ABDOMINAL SONOGRAM ?? DATE: 12/15/2022 [...] midpole right kidney. DICTATION LOCATION: Location - [facility] Annette Whitney MD ORDERABLES documented in this encounter Visit Diagnoses Diagnosis Elevated LFTs Other abnormal blood chemistry documented in this encounter Additional Health Concerns Assessment Noted Time PHQ-9 Depression Total Score: 2 12/08/19 23 11:00 AM EDUCATIONAL FUNDRAISING DIRECTOR documented as of this encounter Care Teams Mold Repairer Relationship Specialty Start Date End Date Jasiel Freeman MD [address] [place] [phone] PCP - General Family Practice 08/15/17 documented as of this encounter
--- OUTSIDE RECORDS SUMMARY | 2024-10-24 06:35 | XMS_ITS | Encounter Summary ---
Author Organization [facility] Address [address] [place] [address] Care Team Providers Care Mercury Cell Cleaner Name Role Phone Jasiel Freeman MD Primary [...] [facility] [place] [address] [place] [address] Kitty Dover, MIRTA [address] [place] [address] documented as of this encounter Visit Diagnoses Not on filedocumented in this encounter Additional Health Concerns Assessment Noted Time PHQ-9 Depression Total Score: 2 12/08/19 23 11:00 AM RECREATION MANAGER documented as of this encounter Care Teams Mercury Cell Cleaner Relationship Specialty Start Date End Date Jasiel Freeman MD [address] [place] [address] PCP - General Family Practice 08/15/17 documented as of this encounter
--- OUTSIDE RECORDS SUMMARY | 2024-10-24 06:35 | XMS_ITS | Encounter Summary ---
Author Organization [facility] Address [address] [place] [address] Care Team Providers Care Turf Grower Name Role Phone Jasiel Freeman MD Primary [...] [place] [address] [place] [address] Kitty Dover, MIRTA [address] [place] [address] documented as of this encounter Visit Diagnoses Not on filedocumented in this encounter Additional Health Concerns Assessment Noted Time PHQ-9 Depression Total Score: 2 12/08/19 23 11:00 AM HYDROGRAPHY TEACHER documented as of this encounter Care Teams Turf Grower Relationship Specialty Start Date End Date Jasiel Freeman MD [address] [place] [address] PCP - General Family Practice 08/15/17 documented as of this encounter
--- OUTSIDE RECORDS SUMMARY | 2024-10-24 06:35 | XMS_ITS | Encounter Summary ---
Author Organization [facility] Address [address] [place] [address] Care Team Providers Care Car Unloader Helper Name Role Phone Jasiel Freeman MD Primary Care Provider Reason for Visit * Reason Comments Med Change Request Encounter Details Date Type Department Care Team (Late st Contact Info) Description 12/08/2022 [facility] IBD and Gastroenterology Center [address] [facility] [address] [place] [address] Annette Whitney MD [address] [facility] [address] [place] [id number] Social History Tobacco Use Types Packs/Day Years [...] Coronavirus/COVID-19? No / Unsure 12/08/2022 10:51 AM GYROSCOPE REPAIRER documented as of this encounter Plan of Treatment Upcoming Encounters Date Type Department Care Team (Late st Contact Info) Description 02/13/2025 10:30 AM CDT Office Visit [facility] IBD and Gastroenterology [facility] [place] [address] [place] [address] Kitty Dover ANP [address] [place] [address] documented as of this encounter Visit Diagnoses Not on filedocumented in this encounter Additional Health Concerns Assessment Noted Time PHQ-9 Depression Total Score: 2 12/08/19 23 11:00 AM GYROSCOPE REPAIRER documented as of this encounter Care Teams Car Unloader Helper Relationship Specialty Start Date End Date Jasiel Freeman MD [address] [place] [phone] PCP - General Family Practice 08/15/17 documented as of this encounter
--- OUTSIDE RECORDS SUMMARY | 2024-10-24 06:36 | XMS_ITS | Encounter Summary ---
Author Organization [facility] Address [address] [place] [address] Care Team Providers Care Cylinder Machine Operator Name Role Phone Jasiel Freeman MD Primary Care Provider Encounter Details Date Type Department Care Team (Late st Contact Info) Description 12/07/2021 Specialty Pharmacy [facility] Specialty and Home Infusion - [address] [place] [address] Thanh Solares, PHARMACIST Social History [...] original note were not included. [facility] Specialty & Infusion - [facility] SPECIALTY & INFUSION [facility] [address] [facility], [address] [place] [address] PH: [phone] FX: [phone] Specialty Pharmacy Infusion Note Patient Name: Edgardo [...] changes Patient informed on importance of notifying [facility] immediately if any unexpected insurance changes occur. - yes Authorization good through: 06/15/2022 Delivery: Delivery date: 12/13/2021 How are we shipping the medication? Head Banquet Waiter/Waitress Is it ok to leave? yes Delivery note: This assessment performed by: Thanh Solares, PHARMACIST [facility] SPECIALTY & INFUSION [place] [id number] PH: [phone] FX: [phone] Specialty Pharmacy Infusion Note Patient Name: Edgardo [...] anticipated Patient informed on importance of notifying [facility] immediately if any unexpected insurance changes occur. - yes Authorization good through: 06/15/2022 Delivery: Delivery date: 11/15/2021 How are we shipping the medication? Head Banquet Waiter/Waitress Is it ok to leave? yes Delivery note: This assessment performed by: Thanh Solares PHARMACIST [facility] [address] [address] PH: [phone] FX: [phone] Specialty Pharmacy Infusion Note Patient Name: Edgardo [...] anticipated Patient informed on importance of notifying [facility] immediately if any unexpected insurance changes occur. - yes Authorization good through: 06/15/2022 Delivery: Delivery date: 10/13/2021 How are we shipping the medication? Head Banquet Waiter/Waitress Is it ok to leave? yes Delivery note: This assessment performed by: Thanh Solares, PHARMACIST [facility] [address], [facility] [address] [place] [address] PH: [phone] FX: [phone] Specialty Pharmacy Infusion Note Patient Name: Edgardo [...] anticipated Patient informed on importance of notifying [facility] immediately if any unexpected insurance changes occur. - yes Authorization good through: 06/15/2022 Delivery: Delivery date: 09/13/2021 How are we shipping the medication? Head Banquet Waiter/Waitress Is it ok to leave? yes Delivery note: This assessment performed by: Thanh Solares, PHARMACIST [facility] [address] [facility], [address] [place] [address] PH: [phone] FX: [phone] Specialty Pharmacy Infusion Note Patient Name: Edgardo [...] 08/09/2021 How are we shipping the medication? Head Banquet Waiter/Waitress Is it ok to leave? yes Delivery note: This assessment performed by: Thanh Solares, PHARMACIST [facility] [id number] [place] [address], [address] [address] PH: [phone] FX: [phone] Specialty Pharmacy Infusion Note Patient Name: Edgardo [...] 07/12/2021 How are we shipping the medication? certified master safecracker Is it ok to leave? yes Delivery note: This assessment performed by: Thanh Solares, PHARMACIST [facility] [address] [address] PH: [phone] FX: [phone] Specialty Pharmacy Infusion Note Patient Name: Edgardo [...] 06/14/2021 How are we shipping the medication? certified master safecracker Is it ok to leave? yes Delivery note: This assessment performed by: Thanh Solares, PHARMACIST [facility] [address], [address] [address] PH: [phone] FX: [phone] Specialty Pharmacy Infusion Note Patient Name: Edgardo [...] 05/17/2021 How are we shipping the medication? certified master safecracker Is it ok to leave? yes Delivery note: This assessment performed by: Thanh Solares, PHARMACIST [facility] [address] [facility], [address] [place] [address] PH: [phone] FX: [phone] Specialty Pharmacy Infusion Note Patient Name: Edgardo [...] n/a Patient informed on importance of notifying [facility] immediately if any unexpected insurance changes occur. - n/a Authorization good through: 06/15/2021 Delivery: Delivery date: 04/16/2021 How are we shipping the medication? certified master safecracker Is it ok to leave? yes Delivery note: This assessment performed by: FADI Silverman [facility] [address] [facility], [address] [place] [address] PH: [phone] FX: [phone] Specialty Pharmacy Infusion Note Patient Name: Edgardo [...] changes Patient informed on importance of notifying [facility] Infusion immediately if any unexpected insurance changes occur. - yes Authorization good through: 06/15/2021 Delivery: Delivery date: 02/19/2021 How are we shipping the medication? Head Banquet Waiter/Waitress Is it ok to leave? yes Delivery note: infusion changed to 5/3 This assessment performed by: FADI Silverman [facility] [address], [address] [place] [address] PH: [phone] FX: [phone] Specialty Pharmacy Infusion Note Patient Name: Edgardo [...] changes Patient informed on importance of notifying [facility] Infusion immediately if any unexpected insurance changes occur. - yes Authorization good through: 01/12/2022 Delivery: Delivery date: 01/26/2021 How are we shipping the medication? certified master safecracker Is it ok to leave? yes Delivery note: deliver before 12pm This assessment performed by: FADI Silverman [facility] Specialty [facility] Home Infusion [facility] Infusion Order Edgardo Elkins 51 y.o. / male Patient's address (May not be service address): [address] [place], [place] [id number] Order Date: 08/06/2021 Order(s): VEDOLIZUMAB( ENTYVIO) STANDING [...] specified Order taken by Thanh Solares, PHARMACIST [facility] [place] [address] [facility] Infusion Order Edgardo Elkins 51 y.o. / male Patient's address (May not be service address): [address] [place] [address] Order Date: 07/08/2021 Order(s): VEDOLIZUMAB( ENTYVIO) STANDING [...] otherwise specified Order taken by FADI Silverman [facility]fusion [address] [address] [facility] Specialty [facility] Home Infusion [facility] Home Infusion Order Edgardo Georgette Thyer 51 y.o. / male Patient's address (May not be service address): [address] [place] [address] Order Date: 10/20/2020 Order(s): Continue Entyvio 300mg IV every 4 weeks Per: Caren Whitney MD Generic substitution permitted for medications unless otherwise specified Order taken by FADI Silverman [facility]fusion [address] [address] Edgardo S Thyer 51 y.o. / male Patient's address on file: [address] [facility] [address] [facility] [address] Home Phone Work Phone Home Infusion Order [...] 6 months (through 05/26/19) Per: Caren Whitney [facility] Gastroenterology [address], [address] [place] [address] Generic substitution permitted Detailed Home Infusion Orders [...] RN will take any ordered labs to [facility] when possible. If labs are not taken to a [facility] lab, it is the responsibility of nursing to make sure labs are faxed to the pharmacy at [phone] Whitney. Catheter Care Catheter type: PIV placed by FIBERGLASS BOAT BUILDER prior to each infusion Flush IV catheter [...] lab draws/line complications. ?? Flushes provided by [facility] Specialty and Infusion pharmacy are for use [...] Elkins (51 y.o. male) is active with [facility] Specialty and Infusion services receiving Entyvio every 8 weeks at home for ulcerative colitis. ?? Edgardo is due for his next infusion this week. Pharmacist contacted FIBERGLASS BOAT BUILDER to coordinate delivery. RN will knot picker cloth today. Patient received last infusion without issue. No questions or concerns at this time. Patient has appointment with Dr. Nari on 01/29. 05/13/19 - Spoke with the patient who stated he is doing well. He has had no changes in his medication therapy or no clinical issues. Will ship medications and supplies to the patient. Thanh Solares MBA, [facility] 08/08/19 - Patient to receive infusion of Entyvio today after an insurance issue. Will send medications and supplies for the infusion. RDS 08/19/19 - Confirmed with the nurse returned case inspector that the patient was scheduled to receive [...] [facility] Home Infusion Care Team IV Pharmacy: [facility] [employer] / [phone] Nursing Agency: [facility] [place] [facility] Physician(s): Dr. Whitney Additional Relevant Data Insurance Information: Payor: RX [facility] / Plan: RX [employer] ADVANCE PARADIGM / Product Type: RX [employer] / IV access PIV placed by FIBERGLASS BOAT BUILDER prior to each infusion Ht Readings from [...] level: Not on file Occupational History Employer: [employer] Employer: [employer] Tobacco Use ??? Smoking [...] by intraveous injection see administration instructions. Home FIBERGLASS BOAT BUILDER to administer over 30 minutes every 8 [...] Provided to Patient ?? Pharmacist offer to outreach counselor ?? RN instruction ?? Printed teaching sheets ?? Drug information paperwork - EH patient leaflet FADI Silverman [facility] & Infusion [facility] [id number] [place] [address] , [address] [place] [address] RRAL AND INFORMATION AIDE documented in this encounter Plan of Treatment Upcoming Encounters Date Type Department Care Team (Late st Contact Info) Description 02/13/2025 10:30 AM CDT Office Visit [facility] IBD and Gastroenterology Center [place] [address] [facility] [address] [place] [address] Kitty Dover ANP [address] [facility] [address] [place] [address] documented as of this encounter Visit Diagnoses Not on filedocumented in this encounter Care Teams Cylinder Machine Operator Relationship Specialty Start Date End Date Jasiel Freeman MD [address] [place] [phone] PCP - General Family Practice 08/15/17 documented as of this encounter
--- OUTSIDE RECORDS SUMMARY | 2024-10-24 06:36 | XMS_ITS | Encounter Summary ---
Author Organization [facility] Address [address] [place] [address] Care Team Providers Care Chief Deputy Sheriff Name Role Phone Jasiel Freeman MD Primary Care Provider Reason for Visit * Reason Comments Medication Refill Encounter Details Date Type Department Care Team (Late st Contact Info) Description 07/14/2021 Refill [facility] Gastroenterology [facility] [address] [facility] [address] [place] [address] Annette Whitney MD [address] [facility] [address] DIV [place] [address] Social History Tobacco Use Types Packs/Day Years [...] [facility] IBD and Gastroenterology Center [place] [address] [place] [address] Kitty Dover ANP [address] [place] [address] [place] [address] documented as of this encounter Visit Diagnoses Not on filedocumented in this encounter Care Teams Chief Deputy Sheriff Relationship Specialty Start Date End Date Jasiel Freeman MD [address] [place] [phone] PCP - General Family Practice 08/15/17 documented as of this encounter
--- OUTSIDE RECORDS SUMMARY | 2024-10-24 06:36 | XMS_ITS | Encounter Summary ---
Author Organization [facility] Address [address] [place] [address] Care Team Providers Care Edge Trimmer Name Role Phone Jasiel Freeman MD Primary Care Provider [phone] Encounter Details Date Type Department Care Team (Late st Contact Info) Description 10/13/2021 Specialty Pharmacy [facility] Specialty and Home Infusion - [address] [place] [address] Thanh Solares, PHARMACIST Social History [...] original note were not included. [facility] Specialty & Infusion - [facility] SPECIALTY & INFUSION [facility] [address] [facility], [address] [place] [address] PH: [phone] FX: [phone] Specialty Pharmacy Infusion Note Patient Name: Edgardo [...] anticipated Patient informed on importance of notifying [facility] immediately if any unexpected insurance changes occur. - yes Authorization good through: 06/15/2022 Delivery: Delivery date: 10/13/2021 How are we shipping the medication? Rn Renal Is it ok to leave? yes Delivery note: This assessment performed by: Thanh Solares, PHARMACIST [facility] [place] [address] PH: [phone] FX: [phone] Specialty Pharmacy Infusion Note Patient Name: Edgardo [...] anticipated Patient informed on importance of notifying [facility] Specialty and Infusion immediately if any unexpected insurance changes occur. - yes Authorization good through: 06/15/2022 Delivery: Delivery date: 09/13/2021 How are we shipping the medication? Rn Renal Is it ok to leave? yes Delivery note: This assessment performed by: Thanh Solares PHARMACIST [facility] SPECIAL[facility]FUSION [place] [id number] PH: [phone] FX: [phone] Specialty Pharmacy Infusion Note Patient Name: Edgardo [...] anticipated Patient informed on importance of notifying [facility] immediately if any unexpected insurance changes occur. - yes Authorization good through: 06/15/2022 Delivery: Delivery date: 08/09/2021 How are we shipping the medication? Rn Renal Is it ok to leave? yes Delivery note: This assessment performed by: Thanh Solares, PHARMACIST [facility] SPECIALTY & INFUSION [facility] [address] [address] PH: [phone] FX: [phone] Specialty Pharmacy Infusion Note Patient Name: Edgardo [...] 07/12/2021 How are we shipping the medication? partition assembler Is it ok to leave? yes Delivery note: This assessment performed by: Thanh Solares, PHARMACIST [facility] [address] [address] PH: [phone] FX: [phone] Specialty Pharmacy Infusion Note Patient Name: Edgardo [...] 06/14/2021 How are we shipping the medication? partition assembler Is it ok to leave? yes Delivery note: This assessment performed by: Thanh Solares, PHARMACIST [facility] [place] [id number] [address] PH: [phone] FX: [phone] Specialty Pharmacy Infusion Note Patient Name: Edgardo [...] 05/17/2021 How are we shipping the medication? partition assembler Is it ok to leave? yes Delivery note: This assessment performed by: Thanh Solares PHARMACIST [facility] [address] [address] PH: [phone] FX: [phone] Specialty Pharmacy Infusion Note Patient Name: Edgardo [...] 04/16/2021 How are we shipping the medication? partition assembler Is it ok to leave? yes Delivery note: This assessment performed by: FADI Silverman [facility] SPECIAL[facility] INFUSION [address] [address] PH: [phone] FX: [phone] Specialty Pharmacy Infusion Note Patient Name: Edgardo [...] 02/19/2021 How are we shipping the medication? Rn Renal Is it ok to leave? yes Delivery note: infusion changed to 02/22 This assessment performed by: FADI Silverman [facility] [id number] [place] [address], [address] [place] [address] PH: [phone] FX: [phone] Specialty Pharmacy Infusion Note Patient Name: Edgardo [...] changes Patient informed on importance of notifying [facility] Specialty and Infusion immediately if any unexpected insurance changes occur. - yes Authorization good through: 01/12/2022 Delivery: Delivery date: 01/26/2021 How are we shipping the medication? partition assembler Is it ok to leave? yes Delivery note: deliver before 12pm This assessment performed by: Thanh Solares PHARMACIST [facility] Infusion Order Edgardo Elkins 51 y.o. / male Patient's address (May not be service address): [address] [place] [address] Order Date: 08/06/2021 Order(s): VEDOLIZUMAB( ENTYVIO) STANDING [...] specified Order taken by Thanh Solares, PHARMACIST [facility] Home Infusion [address] [address] [facility] Specialty & Home Infusion [facility] Infusion Order Edgardo Elkins 51 y.o. / male Patient's address (May not be service address): [address] [place] [address] Order Date: 07/08/2021 Order(s): VEDOLIZUMAB( ENTYVIO) STANDING [...] specified Order taken by Thanh Solares PHARMACIST [facility] Specialty & Home Infusion [address] [address] [facility] Specialty & Home Infusion [facility] Home Infusion Order Edgardo S Thyer 51 y.o. / male Patient's address (May not be service address): [address] [place] [address] Order Date: 10/20/2020 Order(s): Continue Entyvio 300mg IV every 4 weeks Per: Caren Whitney MD Generic substitution permitted for medications unless otherwise specified Order taken by FADI Silverman [facility] Specialty & Home Infusion [address] [address] Edgardo S Thyer 51 y.o. / male Patient's address on file: [address] [facility] [address] Home Phone Work Phone Home Infusion Order [...] 6 months (through 05/26/19) Per: Caren Whitney [facility] Gastroenterology [address] [facility], [address] [facility] [address] Generic substitution permitted Detailed Home Infusion Orders [...] RN will take any ordered labs to [facility] when possible. If labs are not taken to a [facility] lab, it is the responsibility of nursing to make sure labs are faxed to the pharmacy at [phone] Whitney. Catheter Care Catheter type: PIV placed by DIRECTOR OF SPECIAL SERVICES prior to each infusion Flush IV catheter [...] lab draws/line complications. ?? Flushes provided by [facility] Specialty and Infusion pharmacy are for [...] Elkins (51 y.o. male) is active with [facility] Specialty and Infusion services receiving Entyvio every 8 weeks at home for ulcerative colitis. ?? Edgardo is due for his next infusion this week. Pharmacist contacted DIRECTOR OF SPECIAL SERVICES to coordinate delivery. RN will shredder picker today. Patient received last infusion without issue. No questions or concerns at this time. Patient has appointment with Dr. Nair on 01/29. 05/13/19 - Spoke with the patient who stated he is doing well. He has had no changes in his medication therapy or no clinical issues. Will ship medications and supplies to the patient. Thanh Solares MBA, [facility] 08/08/19 - Patient to receive infusion of Entyvio today after an insurance issue. Will send medications and supplies for the infusion. RDS 08/19/19 - Confirmed with the nurse bilingual case manager that the patient was scheduled [...] Whitney Home Infusion Care Team IV Pharmacy: [facility] / [phone] Nursing Agency: [facility] Physician(s): Dr. Whitney Additional Relevant Data Insurance Information: Payor: RX [facility] / Plan: RX [employer] ADVANCE PARADIGM / Product Type: RX [employer] / IV access PIV placed by DIRECTOR OF SPECIAL SERVICES prior to each infusion Ht Readings from [...] level: Not on file Occupational History Employer: [employer] Employer: [employer] Tobacco Use ??? Smoking status: Former Smoker [...] intraveous injection see administration instructions. Home DIRECTOR OF SPECIAL SERVICES to administer over 30 minutes every 8 [...] Provided to Patient ?? Pharmacist offer to psychologist counseling ?? RN instruction ?? Printed teaching sheets ?? Drug information paperwork - EH patient leaflet FADI Silverman [facility] & Infusion [facility] [id number] [place] [address] , [address] [place] [address] E SHORER documented in this encounter Plan of Treatment Upcoming Encounters Date Type Department Care Team (Late st Contact Info) Description 02/13/2025 10:30 AM CDT Office Visit [facility] IBD and Gastroenterology Center [place] [address] [place] [address] Kitty Dover ANP [address] [place] [address] documented as of this encounter Visit Diagnoses Not on filedocumented in this encounter Care Teams Edge Trimmer Relationship Specialty Start Date End Date Jasiel Freeman MD [address] [place] [address] PCP - General Family Practice 08/15/17 documented as of this encounter
--- OUTSIDE RECORDS SUMMARY | 2024-10-24 06:36 | XMS_ITS | Encounter Summary ---
Author Organization [facility] Address [address] [place] [address] Care Team Providers Care Commissioned Police Officer Name Role Phone Jasiel Freeman MD Primary Care Provider Encounter Details Date Type Department Care Team (Late st Contact Info) Description 12/20/2021 Orders Only [facility] G[facility] [address] [facility] [address] [place] [address] Annette Whitney MD [address] [facility] [place] [address] Ulcerative pancolitis without complication Social History Tobacco [...] [facility] IBD and Gastroenterology Center [place] [address] [place] [address] Kitty Dover, MIRTA [address] [place] [address] documented as of this encounter Visit Diagnoses Diagnosis Ulcerative pancolitis without complication documented in this encounter Care Teams Commissioned Police Officer Relationship Specialty Start Date End Date Jasiel Freeman MD [address] [place] [phone] PCP - General Family Practice 08/15/17 documented as of this encounter
--- OUTSIDE RECORDS SUMMARY | 2024-10-24 06:36 | XMS_ITS | Encounter Summary ---
Author Organization [facility] Address [address] [place] [address] Care Team Providers Care Emergency Medicine Physician Name Role Phone Jasiel Freeman MD Primary Care Provider Encounter Details Date Type Department Care Team (Late st Contact Info) Description 08/12/2022 Orders Only [facility] IBD and Gastroenterology Center [address] [facility] [address] [place] [address] Annette Whitney MD [address] [place] [address] Social History Tobacco Use Types Packs/Day Years [...] Visit [facility] IBD and Gastroenterology [facility] [place] [address] [place] [address] Kitty Dover ANP [address] [place] [address] documented as of this encounter Visit Diagnoses Not on filedocumented in this encounter Care Teams Emergency Medicine Physician Relationship Specialty Start Date End Date Jasiel Freeman MD [address] [place] [phone] PCP - General Family Practice 08/15/17 documented as of this encounter
--- OUTSIDE RECORDS SUMMARY | 2024-10-24 06:36 | XMS_ITS | Encounter Summary ---
Author Organization [facility] Address [address] [place] [address] Care Team Providers Care Geotechnical Intern Name Role Phone Jasiel Freeman MD Primary Care Provider Reason for Visit * Reason Onset Date Comments GI Flare 08/09/2022 Encounter Details Date Type Department Care Team (Late st Contact Info) Description 08/09/2022 Telephone [facility] IBD and Gastroenterology Center [address] [facility] [address] [place] [address] Jailene Whitney MD [address] [facility] [address] [place] [phone] GI Flare Social History Tobacco Use Types [...] - 08/09/2022 4:36 PM CDTAddended by: JOSELYN GORE on: 08/09/2022 04:36 PM Modules accepted: Orders [...] calling. [facility] want to send him back for this? C. Diff CBC (w differential) CRP Fecal calprotectin Office follow up arranged: None yet documented in this encounter Plan of Treatment Upcoming Encounters Date Type Department Care Team (Late st Contact Info) Description 02/13/2025 10:30 AM CDT Office Visit [facility] IBD and Gastroenterology Center [place] [address] [facility] [address] [place] [address] Kitty Dover ANP [address] [facility] [address] [place] [address] documented as of this encounter Procedures Procedure Name Priority Date/Time Associated Diagnosis Comments C. DIFFICILE DETECTION Routine 08/10/2022 1:45 PM CDT Ulcerative pancolitis without complication documented in this encounter Results * C. DIFFICILE DETECTION (08/10/2022 1:45 PM CDT) C DIFFICILE TOXIN B QUAL NOT DETECTED NOT DETECTED [facility] Comment: This test is for use only with liquid or soft stools; performance characteristics of other clinical specimen types have not been established. This assay was performed by [employer] GeneXpert(R) PCR. The performance characteristics of this assay have been determined by [facility]. Performance characteristics refer to the analytical performance of the test. For additional information, please refer to http://education.CareKinesis/faq/WGJ814 (This link is being provided for informational/educational purposes only.) Test Performed at: [facility] [address] [place], [place] ??[address] James Peres D.O., MPH Stool STOOL SPECIMEN / Unknown 08/10/2022 1:45 PM CDT 08/10/2022 1:46 PM CDT Jailene Whitney MD MICROBIOLOGY - GENERAL ORDERABLES [facility] [phone] [address] documented in this encounter Visit Diagnoses Diagnosis Ulcerative pancolitis without complication- Primary documented in this encounter Additional Health Concerns Infection Onset Date Last Indicated Resolved Time R/O C. diff 08/11/2022 08/10/2022 08/11/2022 2:45 PM CDT documented as of this encounter Care Teams Geotechnical Intern Relationship Specialty Start Date End Date Jasiel Freeman MD [address] [place] [phone] PCP - General Family Practice 08/15/17 documented as of this encounter
--- OUTSIDE RECORDS SUMMARY | 2024-10-24 06:36 | XMS_ITS | Encounter Summary ---
Author Organization [facility] Address [address] [place] [address] Care Team Providers Care Glacing Machine Tender Name Role Phone Jasiel Freeman MD Primary Care Provider Reason for Visit * Reason Onset Date Comments Home Visit 08/09/2022 Encounter Details Date Type Department Care Team (Late st Contact Info) Description 08/09/2022 Patient Outreach [facility] Specialty and Home Infusion - [address] [place] [address] Irina Wyatt, RN Home Visit [...] from the original note [facility] not included. [facility] Home Infusion NURSING follow up Leonidas Elkins 1970 [address] [facility] [address] Provider - Irina Wyatt RN 08/09/2022 Visit [...] Pt informed on importance of notifying [facility] Specialty Pharmacy immediately if any [...] Patient knows how to reorder medications. [facility] Specialty and Home Infusion Pharmacy [...] Office Visit [facility] [place] [address] [place] [address] Kitty Dover, MIRTA [address] [place] [address] documented as of this encounter Visit Diagnoses Not on filedocumented in this encounter Care Teams Glacing Machine Tender Relationship Specialty Start Date End Date Jasiel Freeman MD [address] [place] [phone] PCP - General Family Practice 08/15/17 documented as of this encounter
--- OUTSIDE RECORDS SUMMARY | 2024-10-24 06:36 | XMS_ITS | Encounter Summary ---
Author Organization [facility] Address [address] [place] [address] Care Team Providers Care Pit Hand Name Role Phone Jasiel Freeman MD Primary Care Provider Reason for Visit * Reason Comments Medication Refill Encounter Details Date Type Department Care Team (Late st Contact Info) Description 11/04/2021 Refill [facility] [place] Gastroenterology [facility] [address] [facility] [address] [place] [address] Annette Whitney MD [address] [facility] [address] [place] [address] Social History Tobacco Use Types Packs/Day Years [...] CST Last ov 08-02-21 Upcoming ov 02-01-22 O FORMING MACHINE OPERATOR documented in this encounter Plan of Treatment Upcoming Encounters Date Type Department Care Team (Late st Contact Info) Description 02/13/2025 10:30 AM CDT Office Visit [facility] IBD and Gastroenterology Center [place] [address] [place] [address] Kitty Dover, ANP [address] [place] [address] documented as of this encounter Visit Diagnoses Not on filedocumented in this encounter Care Teams Pit Hand Relationship Specialty Start Date End Date Jasiel Freeman MD [address] [place] [phone] PCP - General Family Practice 08/15/17 documented as of this encounter
--- OUTSIDE RECORDS SUMMARY | 2024-10-24 06:36 | XMS_ITS | Encounter Summary ---
Author Organization [facility] Address [address] Avila: [place] [address] Care Team Providers Care Mail Sorting Supervisor Name Role Phone Jasiel Freeman MD [...] [facility] IBD and Gastroenterology Center [address] [facility] [place] [address] Kitty Wadsworth, ANP [address] [facility] [address] [place] [address] documented as of this encounter Visit Diagnoses Not on filedocumented in this encounter Care Teams Mail Sorting Supervisor Relationship Specialty Start Date End Date Jasiel Freeman MD [address] [place] [phone] PCP - General Family Practice 08/15/17 documented as of this encounter
--- OUTSIDE RECORDS SUMMARY | 2024-10-24 06:36 | XMS_ITS | Encounter Summary ---
Author Organization [facility] Address [address] [place] [address] Care Team Providers Care Maintenance Pipefitter Name Role Phone Jasiel Freeman MD Primary Care Provider Reason for Visit * Reason Onset Date Comments Home Visit 12/14/2021 Encounter Details Date Type Department Care Team (Late st Contact Info) Description 12/14/2021 Patient Outreach [facility] Specialty and Home Infusion - [address] [place] [address] Irina Wyatt, RN Home Visit [...] Comments Blood Pressure 140/82 12/14/2021 2:30 PM DIRECTORY OPERATOR Pulse 97 12/14/2021 2:30 PM DIRECTORY OPERATOR Temperature 37 ??C (98.6 ??F) 12/14/2021 2:30 PM DIRECTORY OPERATOR Respiratory Rate 16 12/14/2021 2:30 PM DIRECTORY OPERATOR Oxygen Saturation 97% 12/14/2021 2:30 PM DIRECTORY OPERATOR Inhaled Oxygen Concentration - - Weight - - Height - - Body Mass Index - - documented in this encounter Miscellaneous Notes * Telephone Encounter - Irina Wyatt RN - 12/16/2021 12:20 PM CST Images from the original note were not included. [facility] Specialty and Home Infusion Pharmacy Home Infusion NURSING follow up T[place]karaad Edgardo Palomino Brittni 1970 [address] [facility] [address] Provider - Irina Wyatt RN 12/14/21 Visit [...] yes Pt informed on importance of notifying [facility]ty Pharmacy immediately if any unexpected insurance changes occur.yes No problem observed with learning needs - No cultural, anabaptist, or language barriers to learning Patient and [...] reactions. Patient knows how to reorder medications. [facility] Specialty and Home Infusion Pharmacy [...] in approximately 4 weeks for Entyvio infusion CTORY OPERATOR documented in this encounter Plan of Treatment Upcoming Encounters Date Type Department Care Team (Late st Contact Info) Description 02/13/2025 10:30 AM CDT Office Visit [facility] IBD and Gastroenterology Center [place] [address] [place] [address] Kitty Dover ANP [address] [place] [address] documented as of this encounter Visit Diagnoses Not on filedocumented in this encounter Care Teams Maintenance Pipefitter Relationship Specialty Start Date End Date Jasiel Freeman MD [address] [place] [phone] PCP - General Family Practice 08/15/17 documented as of this encounter
--- OUTSIDE RECORDS SUMMARY | 2024-10-24 06:36 | XMS_ITS | Encounter Summary ---
Author Organization [facility] Address [address] [place] [address] Care Team Providers Care Cardroom Plastic Card Grader Name Role Phone Jasiel Freeman MD Primary Care Provider Encounter Details Date Type Department Care Team (Late st Contact Info) Description 06/11/2021 Specialty Pharmacy [facility] Specialty and Home Infusion - [address] [place] [address] Thanh Solares, PHARMACIST Social History [...] original note were not included. [facility] Specialty & Infusion - [facility] SPECIALTY & INFUSION [facility] [address] [address] [facility] [address], [address] [place] [address] PH: [phone] FX: [phone] Specialty Pharmacy Infusion Note Patient Name: Edgardo [...] n/a Patient informed on importance of notifying [facility] Infusion immediately if any unexpected insurance changes occur. - n/a Authorization good through: 06/15/2022 Delivery: Delivery date: 06/14/2021 How are we shipping the medication? cash register servicer Is it ok to leave? yes Delivery note: This assessment performed by: Thanh Solares, PHARMACIST [facility] SPECIALTY & INFUSION [address], [place] [address] PH: [phone] FX: [phone] Specialty Pharmacy Infusion Note Patient Name: Edgardo [...] n/a Patient informed on importance of notifying [facility] Infusion immediately if any unexpected insurance changes occur. - n/a Authorization good through: 06/15/2021 Delivery: Delivery date: 05/17/2021 How are we shipping the medication? cash register servicer Is it ok to leave? yes Delivery note: This assessment performed by: Thanh Solares, PHARMACIST [facility] [address] [address], [address] [place] [address] PH: [phone] FX: [phone] Specialty Pharmacy Infusion Note Patient Name: Edgardo [...] 04/16/2021 How are we shipping the medication? cash register servicer Is it ok to leave? yes Delivery note: This assessment performed by: Thanh Solares, PHARMACIST [facility] [id number] [place] [address], [address] [address] PH: [phone] FX: [phone] Specialty Pharmacy Infusion Note Patient Name: Edgardo [...] 02/19/2021 How are we shipping the medication? [place] Is it ok to leave? yes Delivery note: infusion changed to 02/22 This assessment performed by: FADI Silverman [facility] SPECIALTY & INFUSION [facility] [address] [address], [place] [id number] PH: [phone] FX: [phone] Specialty Pharmacy Infusion Note Patient Name: Edgardo [...] 01/26/2021 How are we shipping the medication? cash register servicer Is it ok to leave? yes Delivery note: deliver before 12pm This assessment performed by: FADI Silverman Specialty & Home Infusion [facility] Home Infusion Order Edgardo Elkins 50 y.o. / male Patient's address (May not be service address): [address] [place] [address] Order Date: 10/20/2020 Order(s): Continue Entyvio 300mg IV every 4 weeks Per: Caren Whitney MD Generic substitution permitted for medications unless otherwise specified Order taken by FADI Silverman [facility] Special[facility] Home Infusion [facility] [address] [place] [address] Edgardo Elkins 50 y.o. / male Patient's address on file: [address] [place] [address] Home Phone Work Phone Home Infusion Order [...] (through 05/26/19) Per: Caren / KESHA Whitney [facility] Gastroenterology [address], [address] [facility] [address] Generic substitution permitted Detailed Home Infusion Orders [...] RN will take any ordered labs to [facility] when possible. If labs are not taken to a [facility] lab, it is the responsibility of nursing to make sure labs are faxed to the pharmacy at [phone] Whitney. Catheter Care Catheter type: PIV placed by PROCESSING SPECIALIST prior to each infusion Flush IV [...] lab draws/line complications. ?? Flushes provided by [facility]fusion pharmacy are for use [...] Elkins (50 y.o. male) is active with [facility] and Infusion services receiving Entyvio every 8 weeks at home for ulcerative colitis. ?? Edgardo is due for his next infusion this week. Pharmacist contacted PROCESSING SPECIALIST to coordinate delivery. RN will grain picker today. Patient received last infusion without issue. No questions or concerns at this time. Patient has appointment with Dr. Nair on 01/29. 05/13/19 - Spoke with the patient who stated he is doing well. He has had no changes in his medication therapy or no clinical issues. Will ship medications and supplies to the patient. Thanh Solares MBA, [facility] 08/08/19 - Patient to receive infusion of Entyvio today after an insurance issue. Will send medications and supplies for the infusion. RDS 08/19/19 - Confirmed with the nurse patient case coordinator that the patient was scheduled [...] Infusion Care Team IV Pharmacy: [facility] / [phone] Nursing Agency: [facility] Physician(s): Dr. Whitney Additional Relevant Data Insurance Information: Payor: RX [employer] / Plan: RX [employer] ADVANCE PARADIGM / Product Type: RX [employer] / IV access PIV placed by PROCESSING SPECIALIST prior to each infusion Ht Readings [...] level: Not on file Occupational History Employer: [employer] Employer: [employer] Tobacco Use ??? Smoking [...] Gatherings with Friends and Family: ??? Attends Mormonism Services: ??? Active Member of Clubs or [...] by intraveous injection see administration instructions. Home PROCESSING SPECIALIST to administer over 30 minutes every [...] Provided to Patient ?? Pharmacist offer to staff counselor ?? RN instruction ?? Printed teaching sheets ?? Drug information paperwork - [facility] patient leaflet Thanh Solares, PHARMACIST [facility] & Infusion - [place] [address] , [address] [place] [address] documented in this encounter Plan of Treatment Upcoming Encounters Date Type Department Care Team (Late st Contact Info) Description 02/13/2025 10:30 AM CDT Office Visit [facility]astroenterology [facility] [place] [address] [facility] [address] [place] [address] Kitty Dover, MIRTA [address] [facility] [address] [place] [address] documented as of this encounter Visit Diagnoses Not on filedocumented in this encounter Care Teams Cardroom Plastic Card Grader Relationship Specialty Start Date End Date Jasiel Freeman MD [address] [place] [phone] PCP - General Family Practice 08/15/17 documented as of this encounter
--- OUTSIDE RECORDS SUMMARY | 2024-10-24 06:36 | XMS_ITS | Encounter Summary ---
Author Organization [facility] Address [address] [place] [address] Care Team Providers Care Wood Tank Erector Name Role Phone Jasiel Freeman MD Primary Care Provider Reason for Visit * Reason Onset Date Comments Home Visit 10/19/2021 Encounter Details Date Type Department Care Team (Late st Contact Info) Description 10/19/2021 Patient Outreach [facility] Specialty and Home Infusion - [address] [place] [address] Irina Wyatt, RN Home Visit [...] Comments Blood Pressure 124/62 10/19/2021 12:30 PM ECONOMIC HISTORY TEACHER Pulse 93 10/19/2021 12:30 PM ECONOMIC HISTORY TEACHER Temperature 36.7 ??C (98 ??F) 10/19/2021 12:30 PM ECONOMIC HISTORY TEACHER Respiratory Rate 16 10/19/2021 12:30 PM ECONOMIC HISTORY TEACHER Oxygen Saturation 100% 10/19/2021 12:30 PM ECONOMIC HISTORY TEACHER Inhaled Oxygen Concentration - - Weight - - Height - - Body Mass Index - - documented in this encounter Miscellaneous Notes * Telephone Encounter - Irina Wyatt RN - 10/20/2021 10:42 AM CST Images from the original note were not included. [facility] Specialty and Home Infusion Pharmacy Home Infusion NURSING follow up Leonidas Edgardo Welchyesi 1970 [address] [facility] [address] Provider - Irina Wyatt RN 10/19/21 Visit [...] yes Pt informed on importance of notifying [facility] immediately if any unexpected [...] normal mood and affect. Pain: 0 1. prison assessment and implementation of infusion [...] reactions. Patient knows how to reorder medications. [facility]ty [facility] Home Infusion Pharmacy will [...] in approximately 4 weeks for Entyvio infusion OMIC HISTORY TEACHER documented in this encounter Plan of Treatment Upcoming Encounters Date Type Department Care Team (Late st Contact Info) Description 02/13/2025 10:30 AM CDT Office Visit [facility] IBD and Gastroenterology [facility] [place] [address] [place] [phone] Kitty Dover ANP [address] [place] [address] documented as of this encounter Visit Diagnoses Not on filedocumented in this encounter Care Teams Wood Tank Erector Relationship Specialty Start Date End Date Jasiel Freeman MD [address] [place] [phone] PCP - General Family Practice 08/15/17 documented as of this encounter
--- OUTSIDE RECORDS SUMMARY | 2024-10-24 06:36 | XMS_ITS | Encounter Summary ---
Author Organization [facility] Address [address] [place] [address] Care Team Providers Care Air And Water Tester Name Role Phone Jasiel Freeman MD Primary Care Provider Reason for Visit * Reason Onset Date Comments Home Visit 06/15/2021 Encounter Details Date Type Department Care Team (Late st Contact Info) Description 06/15/2021 Patient Outreach [facility] Specialty and Home Infusion - [address] [place] [address] Irina Wyatt, RN Home Visit [...] note were not included. [facility] Specialty and Home Infusion Pharmacy Home Infusion NURSING follow up Leonidas Elkins 1970 [address] [facility] [address] Provider - Irina Wyatt RN 06/15/21 Visit start 1430 Visit end 1540 Contact [...] informed on importance of notifying [facility] immediately if any unexpected [...] normal mood and affect. Pain: 0 1. [facility] assessment and implementation of infusion [...] knows how to reorder medications. [facility] Specialty and Home Infusion Pharmacy will [...] [facility] [place] [address] [place] [address] Kitty Dover ANP [address] [place] [address] documented as of this encounter Visit Diagnoses Not on filedocumented in this encounter Care Teams Air And Water Tester Relationship Specialty Start Date End Date Jasiel Freeman MD [address] [place] [address] PCP - General Family Practice 08/15/17 documented as of this encounter
--- OUTSIDE RECORDS SUMMARY | 2024-10-24 06:36 | XMS_ITS | Encounter Summary ---
Author Organization [facility] Address [address] [place] [address] Care Team Providers Care Green Building Energy Engineer Name Role Phone Jasiel Freeman MD Primary Care Provider Reason for Visit * Reason Onset Date Comments Home Visit 01/11/2022 Encounter Details Date Type Department Care Team (Late st Contact Info) Description 01/11/2022 Patient Outreach [facility] Specialty and Home Infusion - [address] [place] [address] Irina Wyatt, RN Home Visit [...] from the original note were not included. [facility] Specialty and Home Infusion Pharmacy Home Infusion NURSING follow up Leonidas Elkins 1970 [address] [facility] [address] Provider - Irina Wyatt RN 01/11/22 Visit [...] yes Pt informed on importance of notifying [facility] immediately if any unexpected insurance [...] normal mood and affect. Pain: 0 1. snf assessment and implementation of infusion [...] reactions. Patient knows how to reorder medications. [facility] Specialty and Home Infusion Pharmacy [...] [facility]astroenterology [facility] [place] [address] [place] [phone] Kitty Dover ANP [address] [place] [address] documented as of this encounter Visit Diagnoses Not on filedocumented in this encounter Care Teams Green Building Energy Engineer Relationship Specialty Start Date End Date Jasiel Freeman MD [address] [place] [address] PCP - General Family Practice 08/15/17 documented as of this encounter
--- OUTSIDE RECORDS SUMMARY | 2024-10-24 06:36 | XMS_ITS | Encounter Summary ---
Author Organization [facility] Address [address] [place] [address] Care Team Providers Care Returned Materials Inspector Name Role Phone Jasiel Freeman MD Primary Care Provider Reason for Visit * Reason Onset Date Comments Results 07/30/2021 Encounter Details Date Type Department Care Team (Late st Contact Info) Description 07/30/[address] [facility] Gastroenterology [facility] [address] [place] [address] Annette Whitney MD [address] [facility] [place] [phone] Results Social History Tobacco Use Types Packs/Day [...] [facility] IBD and Gastroenterology [facility] [place] [address] [place] [phone] Kitty Dover, [facility] [address] [place] [address] documented as of this encounter Visit Diagnoses Not on filedocumented in this encounter Care Teams Returned Materials Inspector Relationship Specialty Start Date End Date Jasiel Freeman MD [address] [place] [phone] PCP - General Family Practice 08/15/17 documented as of this encounter
--- OUTSIDE RECORDS SUMMARY | 2024-10-24 06:36 | XMS_ITS | Encounter Summary ---
Author Organization [facility] Address [address] [place] [address] Care Team Providers Care Director Of Volunteer Services Name Role Phone Jasiel Freeman MD Primary Care Provider Reason for Visit * Reason Onset Date Comments Home Visit 05/17/2022 Encounter Details Date Type Department Care Team (Late st Contact Info) Description 05/17/2022 Patient Outreach [facility] Specialty and Home Infusion - [address] [place] [address] Irina Wyatt, RN Home Visit [...] from the original note were not included. [facility] Pharm[facility] Home Infusion NURSING follow up [place] Edgardo Palomino Brittni 1970 [address] [facility] [address] Provider - Irina Wyatt RN 05/17/2022 Visit [...] Yes Pt informed on importance of notifying [facility]ty Pharmacy immediately if any unexpected insurance changes occur.yes No problem observed with learning needs - No cultural, buddhist, or language barriers to learning Patient and [...] normal mood and affect. Pain: 0 1. alf assessment and implementation of infusion [...] reactions. Patient knows how to reorder medications. [facility] Specialty and Home Infusion Pharmacy [...] [facility] [place] [address] [place] [phone] Kitty Dover ANP [address] [place] [address] documented as of this encounter Visit Diagnoses Not on filedocumented in this encounter Care Teams Director Of Volunteer Services Relationship Specialty Start Date End Date Jasiel Freeman MD [address] [place] [phone] PCP - General Family Practice 08/15/17 documented as of this encounter
--- OUTSIDE RECORDS SUMMARY | 2024-10-24 06:36 | XMS_ITS | Encounter Summary ---
Author Organization [facility] Address [address] [place] [address] Care Team Providers Care Information Coordinator Name Role Phone Jasiel Freeman MD Primary Care Provider [phone] Encounter Details Date Type Department Care Team (Late st Contact Info) Description 09/27/2021 Orders Only [facility] Gastroenterology [facility] [address] [facility] [address] [place] [address] Annette Whitney MD [address] [facility] [place] [address] Ulcerative pancolitis without complication Social History Tobacco [...] [facility]astro[facility]ology [facility] [place] [address] [place] [address] Kitty Dover, MIRTA [address] [place] [address] [place] [address] documented as of this encounter Visit Diagnoses Diagnosis Ulcerative pancolitis without complication documented in this encounter Care Teams Information Coordinator Relationship Specialty Start Date End Date Jasiel Freeman MD [address] [place] [phone] PCP - General Family Practice 08/15/17 documented as of this encounter
--- OUTSIDE RECORDS SUMMARY | 2024-10-24 06:36 | XMS_ITS | Encounter Summary ---
Author Organization [facility] Address [address] [facility] [address] Laurenn: [place] [address] Care Team Providers Care Education Counselor Name Role Phone Jasiel Freeman MD [...] [facility] IBD and Gastroenterology Center [place] [address] [place] [address] Kitty Dover, ANP [address] [facility] [address] [place] [address] documented as of this encounter Visit Diagnoses Not on filedocumented in this encounter Care Teams Education Counselor Relationship Specialty Start Date End Date Jasiel Freeman MD [address] [place] [phone] PCP - General Family Practice 08/15/17 documented as of this encounter
--- OUTSIDE RECORDS SUMMARY | 2024-10-24 06:36 | XMS_ITS | Encounter Summary ---
Author Organization [facility] Address [address] [place] [address] Care Team Providers Care Landscaping Crew Leader Name Role Phone Jasiel Freeman MD Primary Care Provider Encounter Details Date Type Department Care Team (Late st Contact Info) Description 11/12/2021 Orders Only [facility] Specialty and Home Infusion - [address] [place] [address] Thanh Solares PHARMACIST Social History [...] [facility] [place] [address] [place] [address] Kitty Dover, MIRTA [address] [place] [address] [place] [address] documented as of this encounter Visit Diagnoses Not on filedocumented in this encounter Care Teams Landscaping Crew Leader Relationship Specialty Start Date End Date Jasiel Freeman MD [address] [place] [address] PCP - General Family Practice 08/15/17 documented as of this encounter
--- OUTSIDE RECORDS SUMMARY | 2024-10-24 06:36 | XMS_ITS | Encounter Summary ---
Author Organization [facility] Address [address] [place] [address] Care Team Providers Care Guard Lieutenant Name Role Phone Jasiel Freeman MD Primary Care Provider Encounter Details Date Type Department Care Team (Late st Contact Info) Description 09/10/2021 Specialty Pharmacy [facility] Specialty and Home Infusion - [address] [place] [address] Thanh Solares, PHARMACIST Social History [...] original note were not included. [facility] Specialty & Infusion - [facility] SPECIALTY & INFUSION [facility] [address] [facility] [address] [facility], [address] [place] [address] PH: [phone] FX: [phone] Specialty Pharmacy Infusion Note Patient Name: Edgardo [...] anticipated Patient informed on importance of [facility] immediately if any unexpected insurance changes occur. - yes Authorization good through: 06/15/2022 Delivery: Delivery date: 09/13/2021 How are we shipping the medication? Lead Technical Architect Is it ok to leave? yes Delivery note: This assessment performed by: Thanh Solares, PHARMACIST [facility] [place] [address] PH: [phone] FX: [phone] Specialty Pharmacy Infusion Note Patient Name: Edgardo [...] informed on importance of notifying [facility] Specialty and Infusion immediately if any unexpected insurance changes occur. - yes Authorization good through: 06/15/2022 Delivery: Delivery date: 08/09/2021 How are we shipping the medication? Lead Technical Architect Is it ok to leave? yes Delivery note: This assessment performed by: Thanh Solares PHARMACIST [facility] SPECIALTY & INFUSION [place] [id number] PH: [phone] FX: [phone] Specialty Pharmacy Infusion Note Patient Name: Edgardo [...] 07/12/2021 How are we shipping the medication? epic radiant analyst Is it ok to leave? yes Delivery note: This assessment performed by: Thanh Solares, PHARMACIST [facility] SPECIAL[facility] INFUSION [facility] [address] [address] PH: [phone] FX: [phone] Specialty Pharmacy Infusion Note Patient Name: Edgardo [...] 06/14/2021 How are we shipping the medication? epic radiant analyst Is it ok to leave? yes Delivery note: This assessment performed by: Thanh Solares, PHARMACIST [facility] [place] [id number] [address] PH: [phone] FX: [phone] Specialty Pharmacy Infusion Note Patient Name: Edgardo [...] 05/17/2021 How are we shipping the medication? epic radiant analyst Is it ok to leave? yes Delivery note: This assessment performed by: Thanh Solares, PHARMACIST [facility] [address] [address] PH: [phone] FX: [phone] Specialty Pharmacy Infusion Note Patient Name: Edgardo [...] 04/16/2021 How are we shipping the medication? epic radiant analyst Is it ok to leave? yes Delivery note: This assessment performed by: FADI Silverman [facility] SPECIAL[facility] INFUSION [address], [place] [id number] PH: [phone] FX: [phone] Specialty Pharmacy Infusion Note Patient Name: Edgardo [...] changes Patient informed on importance of not[facility] immediately if any unexpected insurance changes occur. - yes Authorization good through: 06/15/2021 Delivery: Delivery date: 02/19/2021 How are we shipping the medication? Lead Technical Architect Is it ok to leave? yes Delivery note: infusion changed to 02/22 This assessment performed by: FADI Silverman [facility] SPECIAL[facility] INFUSION [address] [address] PH: [phone] FX: [phone] Specialty Pharmacy Infusion Note Patient Name: Edgardo [...] changes Patient informed on importance of notifying [facility] immediately if any unexpected insurance changes occur. - yes Authorization good through: 01/12/2022 Delivery: Delivery date: 01/26/2021 How are we shipping the medication? epic radiant analyst Is it ok to leave? yes Delivery note: deliver before 12pm This assessment performed by: FADI Silverman [facility] Specialty & Home Infusion [facility] Home Infusion Order Edgardo Elkins 50 y.o. / male Patient's address (May not be service address): [address] [place] [address] Order Date: 08/06/2021 Order(s): VEDOLIZUMAB( ENTYVIO) STANDING [...] by FADI Silverman Specialty & Home Infusion [facility] [address] [place] [address] [facility] Specialty & Home Infusion [facility] Home Infusion Order Edgardo Elkins 50 y.o. / male Patient's address (May not be service address): [address] [facility] [address] Order Date: 07/08/2021 Order(s): VEDOLIZUMAB( ENTYVIO) STANDING [...] taken by Thanh Solares, PHARMACIST [facility] Specialty & Home Infusion [place] [address] [place] [address] [facility] Specialty & Home Infusion [facility] Home Infusion Order Edgardo Elkins 50 y.o. / male Patient's address (May not be service address): [address] [facility] [address] Order Date: 10/20/2020 Order(s): Continue Entyvio 300mg IV every 4 weeks Per: Caren Whitney MD Generic substitution permitted for medications unless otherwise specified Order taken by Thanh Solares, PHARMACIST [facility] Specialty & Home Infusion [address] [address] Edgardo Elkins 50 y.o. / male Patient's address on file: [address] [facility] [address] Home Phone Work Phone Home Infusion Order [...] (through 05/26/19) Per: Caren / KESHA Whitney [facility] Gastroenterology [address], [address] [facility] [id number] Generic substitution permitted Detailed Home Infusion Orders [...] take any ordered labs to [facility] when possible. If labs are not taken to a [facility] lab, it is the responsibility of nursing to make sure labs are faxed to the pharmacy at [phone] Whitney. Catheter Care Catheter type: PIV placed by MAINTENANCE ENGINEER prior to each infusion Flush IV [...] complications. ?? Flushes provided by [facility] Specialty and Infusion pharmacy are for [...] Elkins (50 y.o. male) is active with [facility] Specialty and Infusion services receiving Entyvio every 8 weeks at home for ulcerative colitis. ?? Edgardo is due for his next infusion this week. Pharmacist contacted MAINTENANCE ENGINEER to coordinate delivery. RN will pick and shovel worker today. Patient received last infusion without issue. No questions or concerns at this time. Patient has appointment with Dr. Nair on 01/29. 05/13/19 - Spoke with the patient who stated he is doing well. He has had no changes in his medication therapy or no clinical issues. Will ship medications and supplies to the patient. Thanh Solares MBA, [facility] 08/08/19 - Patient to receive infusion of Entyvio today after an insurance issue. Will send medications and supplies for the infusion. RDS 08/19/19 - Confirmed with the nurse watch caser that the patient was scheduled to [...] [facility] Home Infusion Care Team IV Pharmacy: [facility] Infusion / [phone] Nursing Agency: [facility] Infusion Physician(s): Dr. Whitney Additional Relevant Data Insurance Information: Payor: RX [employer] / Plan: RX PCS ADVANCE PARADIGM / Product Type: RX Caremark / IV access PIV placed by MAINTENANCE ENGINEER prior to each infusion Ht Readings [...] level: Not on file Occupational History Employer: [employer] Employer: [employer] Tobacco Use ??? Smoking status: Former Smoker [...] by intraveous injection see administration instructions. Home MAINTENANCE ENGINEER to administer over 30 minutes every [...] Provided to Patient ?? Pharmacist offer to education counselor ?? RN instruction ?? Printed teaching sheets ?? Drug information paperwork - E[facility] patient leaflet Thanh Solares PHARMACIST [facility] [place] [address] [facility] , [address] [place] [address] ERTY INSURANCE AGENT documented in this encounter Plan of Treatment Upcoming Encounters Date Type Department Care Team (Late st Contact Info) Description 02/13/2025 10:30 AM CDT Office Visit [facility] IBD and Gastroenterology [facility] [place] [address] [place] [address] Kitty Dover, MIRTA [address] [place] [address] documented as of this encounter Visit Diagnoses Not on filedocumented in this encounter Care Teams Guard Lieutenant Relationship Specialty Start Date End Date Jasiel Freeman MD [address] [place] [phone] PCP - General Family Practice 08/15/17 documented as of this encounter
--- OUTSIDE RECORDS SUMMARY | 2024-10-24 06:36 | XMS_ITS | Encounter Summary ---
Author Organization [facility] Address [address] [place] [address] Care Team Providers Care Felling Machine Operator Name Role Phone Jasiel Freeman MD Primary Care Provider Encounter Details Date Type Department Care Team (Late st Contact Info) Description 04/08/2022 Specialty Pharmacy [facility] Specialty and Home Infusion - [address] [place] [address] Thanh Solares, PHARMACIST [...] Solares, PHARMACIST - 04/08/2022 4:46 PM CDT [facility] Patient Name: [...] orders: No labs needed Nursing Provided by [facility] Specialty and Infusion Therapy Specific Pertinent Health [...] ??? Information for this assessment provided by [facility] ??? HIPAA contact identified: Yes ??? Note: ?Welcome Packet?? been provided to the patient Yes ??? Note: Provided with initial delivery / via [facility] Additional Notes ??? Pharmacy communicated/coordinated with MD support director? Yes ??? Follow up notes for next [...] [facility] IBD and Gastroenterology Center [place] [address] [place] [phone] Kitty Dover, MIRTA [address] [place] [address] documented as of this encounter Visit Diagnoses Not on filedocumented in this encounter Care Teams Felling Machine Operator Relationship Specialty Start Date End Date Jasiel Freeman MD [address] [place] [phone] PCP - General Family Practice 08/15/17 documented as of this encounter
--- OUTSIDE RECORDS SUMMARY | 2024-10-24 06:36 | XMS_ITS | Encounter Summary ---
Author Organization [facility] Address [address] [facility] [address] Avila: [place] [address] Care Team Providers Care Quality And Reliability Engineer Name Role Phone Jasiel Freeman MD [...] Description 02/13/2025 10:30 AM CDT Office Visit [facility] IBD and Gastroenterology Center [place] [address] [place] [address] Kitty Dover, ANP [address] [facility] [address] [place] [address] documented as of this encounter Visit Diagnoses Not on filedocumented in this encounter Care Teams Quality And Reliability Engineer Relationship Specialty Start Date End Date Jasiel Freeman MD [address] [place] [phone] PCP - General Family Practice 08/15/17 documented as of this encounter
--- OUTSIDE RECORDS SUMMARY | 2024-10-24 06:36 | XMS_ITS | Encounter Summary ---
Author Organization [facility] Address [address] [place] [address] Care Team Providers Care Shoe Folder Name Role Phone Jasiel Freeman MD Primary Care Provider Reason for Visit * Reason Onset Date Comments Home Visit 07/11/2022 Encounter Details Date Type Department Care Team (Late st Contact Info) Description 07/11/2022 Patient Outreach [facility] Specialty and Home Infusion - [address] [place] [address] Irina Wyatt, RN Home Visit [...] note were not included. [facility] Home Infusion NURSING follow up Leonidas Elkins 1970 [address] [facility] [address] Provider - Irina Wyatt RN 07/11/2022 Visit start 1430 Visit end 1543 Contact numbers provided including after hours numbers [...] informed on importance of notifying [facility] immediately if any unexpected insurance changes occur.yes No problem observed with learning needs - No cultural, gnosticism, or language barriers to learning Patient and [...] knows how to reorder medications. [facility] Specialty and Home Infusion Pharmacy will dispense [...] 10:30 AM CDT Office Visit [facility] IBD and Gastroenterology [facility] [place] [address] [place] [address] Kitty Dover ANP [address] [place] [address] documented as of this encounter Visit Diagnoses Not on filedocumented in this encounter Care Teams Shoe Folder Relationship Specialty Start Date End Date Jasiel Freeman MD [address] [place] [address] PCP - General Family Practice 08/15/17 documented as of this encounter
--- OUTSIDE RECORDS SUMMARY | 2024-10-24 06:36 | XMS_ITS | Encounter Summary ---
Author Organization [facility] Address [address] [place] [address] Care Team Providers Care Assistant Professor Of Biology Name Role Phone Jasiel Freeman MD Primary Care Provider Encounter Details Date Type Department Care Team (Late st Contact Info) Description 11/12/2021 Specialty Pharmacy [facility] Specialty and Home Infusion - [address] [place] [address] Thanh Solares, PHARMACIST Social History [...] from the original note were not included. [facility] Specialty & Infusion - [facility] SPECIALTY & INFUSION [facility] [address] [facility], [address] [place] [address] PH: [phone] FX: [phone] Specialty Pharmacy Infusion Note Patient Name: Edgardo [...] anticipated Patient informed on importance of [facility] immediately if any unexpected insurance changes occur. - yes Authorization good through: 06/15/2022 Delivery: Delivery date: 11/15/2021 How are we shipping the medication? Paraoptometric Is it ok to leave? yes Delivery note: This assessment performed by: Thanh Solares, PHARMACIST [facility] SPECIALTY [place] [address] PH: [phone] FX: [phone] Specialty Pharmacy Infusion Note Patient Name: Edgardo [...] anticipated Patient informed on importance of notifying [facility] Specialty and Infusion immediately if any unexpected insurance changes occur. - yes Authorization good through: 06/15/2022 Delivery: Delivery date: 10/13/2021 How are we shipping the medication? Paraoptometric Is it ok to leave? yes Delivery note: This assessment performed by: Thanh Solares PHARMACIST [facility] SPECIALTY & INFUSION [place] [id number] PH: [phone] FX: [phone] Specialty Pharmacy Infusion Note Patient Name: Edgardo [...] 09/13/2021 How are we shipping the medication? Paraoptometric Is it ok to leave? yes Delivery note: This assessment performed by: Thanh Solares, PHARMACIST [facility] SPECIALTY & INFUSION [facility] [address] [address] PH: [phone] FX: [phone] Specialty Pharmacy Infusion Note Patient Name: Edgardo [...] 08/09/2021 How are we shipping the medication? Paraoptometric Is it ok to leave? yes Delivery note: This assessment performed by: Thanh D Street, PHARMACIST [facility]ION [facility] [address] [place] [address], [address] [address] PH: [phone] FX: [phone] Specialty Pharmacy Infusion Note Patient Name: Edgardo [...] 07/12/2021 How are we shipping the medication? plate embosser Is it ok to leave? yes Delivery note: This assessment performed by: Thanh Solares, PHARMACIST [facility] [address] [address] PH: [phone] FX: [phone] Specialty Pharmacy Infusion Note Patient Name: Edgardo [...] 06/14/2021 How are we shipping the medication? plate embosser Is it ok to leave? yes Delivery note: This assessment performed by: Thanh Solares, PHARMACIST [facility] SPECIALTY & INFUSION [address] [address] PH: [phone] FX: [phone] Specialty Pharmacy Infusion Note Patient Name: Edgardo [...] n/a Patient informed on importance of notifying [facility] Specialty and Infusion immediately if any unexpected insurance changes occur. - n/a Authorization good through: 06/15/2021 Delivery: Delivery date: 05/17/2021 How are we shipping the medication? plate embosser Is it ok to leave? yes Delivery note: This assessment performed by: Thanh Solares PHARMACIST [facility] SPECIALTY & INFUSION [address], [address] [address] PH: [phone] FX: [phone] Specialty Pharmacy Infusion Note Patient Name: Edgardo [...] n/a Patient informed on importance of [facility]ifying [facility] immediately if any unexpected insurance changes occur. - n/a Authorization good through: 06/15/2021 Delivery: Delivery date: 04/16/2021 How are we shipping the medication? plate embosser Is it ok to leave? yes Delivery note: This assessment performed by: Thanh Solares, PHARMACIST [facility] SPECIALTY & INFUSION [address], [address] [address] PH: [phone] FX: [phone] Specialty Pharmacy Infusion Note Patient Name: Edgardo [...] 02/19/2021 How are we shipping the medication? Paraoptometric Is it ok to leave? yes Delivery note: infusion changed to 5/3 This assessment performed by: Thanh Solares PHARMACIST [facility] SPECIALTY & INFUSION [address], [address] [address] PH: [phone] FX: [phone] Specialty Pharmacy Infusion Note Patient Name: Edgardo [...] 01/26/2021 How are we shipping the medication? plate embosser Is it ok to leave? yes Delivery note: deliver before 12pm This assessment performed by: FADI Silverman [facility] Specialty & Home Infusion [facility] Home Infusion Order Edgardo Elkins 51 y.o. / male Patient's address (May not be service address): [address] [place] [address] Order Date: 08/06/2021 Order(s): VEDOLIZUMAB( ENTYVIO) STANDING [...] otherwise specified Order taken by FADI Silverman [facility] Specialty & Home Infusion [facility] [address] [place] [address] [facility] Specialty & Home Infusion [facility] Home Infusion Order Edgardo Elkins 51 y.o. / male Patient's address (May not be service address): [address] [place] [address] Order Date: 07/08/2021 Order(s): VEDOLIZUMAB( ENTYVIO) STANDING [...] specified Order taken by Thanh Solares, PHARMACIST [facility] Specialty & Home Infusion [facility] [address] [place] [address] [facility] Specialty & Home Infusion [facility] Home Infusion Order Edgardo Elkins 51 y.o. / male Patient's address (May not be service address): [address] [facility] [address] Order Date: 10/20/2020 Order(s): Continue Entyvio 300mg IV every 4 weeks Per: Caren Whitney MD Generic substitution permitted for medications unless otherwise specified Order taken by Thanh Solares, PHARMACIST [facility] Specialty & Home Infusion [place] [id number] [place] [address] Edgardo Welcher 51 y.o. / male Patient's address on file: [address] [facility] [address] Home Phone Work Phone Home Infusion Order [...] (through 05/26/19) Per: Caren / KESHA Whitney [facility] Gastroenterology [address], [address] [facility] [address] Generic substitution permitted Detailed Home Infusion [...] RN will take any ordered labs to [facility] when possible. If labs are not taken to a [facility] lab, it is the responsibility of nursing to make sure labs are faxed to the pharmacy at [phone] Whitney. Catheter Care Catheter type: PIV placed by FIRE CREW WORKER prior to each infusion Flush IV [...] lab draws/line complications. ?? Flushes provided by [facility] Specialty and Infusion pharmacy are for [...] Elkins (51 y.o. male) is active with [facility] Specialty and Infusion services receiving Entyvio every 8 weeks at home for ulcerative colitis. ?? Edgardo is due for his next infusion this week. Pharmacist contacted FIRE CREW WORKER to coordinate delivery. RN will cotton picker operator today. Patient received last infusion without issue. No questions or concerns at this time. Patient has appointment with Dr. Nair on 01/29. 05/13/19 - Spoke with the patient who stated he is doing well. He has had no changes in his medication therapy or no clinical issues. Will ship medications and supplies to the patient. Thanh Solares MBA, [facility] 08/08/19 - Patient to receive infusion of Entyvio today after an insurance issue. Will send medications and supplies for the infusion. [facility] 08/19/19 - Confirmed with the nurse rn case manager that the patient was scheduled [...] [facility]fusion [facility] / [phone] Nursing Agency: [facility] Physician(s): Dr. Whitney Additional Relevant Data Insurance Information: Payor: RX [facility] / Plan: RX PCS ADVANCE PARADIGM / Product Type: RX Caremark / IV access PIV placed by FIRE CREW WORKER prior to each infusion Ht Readings [...] level: Not on file Occupational History Employer: [employer] Employer: [employer] Tobacco Use ??? [...] by intraveous injection see administration instructions. Home FIRE CREW WORKER to administer over 30 minutes every [...] Provided to Patient ?? Pharmacist offer to youth counselor ?? RN instruction ?? Printed teaching sheets ?? Drug information paperwork - EH patient leaflet FADI Silverman [facility] [address] [facility] , [address] [place] [address] IFIED OPHTHALMIC TECHNICIAN documented in this encounter Plan of Treatment Upcoming Encounters Date Type Department Care Team (Late st Contact Info) Description 02/13/2025 10:30 AM CDT Office Visit [facility] IBD and Gastro[facility]ology [facility] [place] [address] [place] [address] Kitty Dover ANP [address] [place] [address] documented as of this encounter Visit Diagnoses Not on filedocumented in this encounter Care Teams Assistant Professor Of Biology Relationship Specialty Start Date End Date Jasiel Freeman MD [address] [place] [phone] PCP - General Family Practice 08/15/17 documented as of this encounter
--- OUTSIDE RECORDS SUMMARY | 2024-10-24 06:36 | XMS_ITS | Encounter Summary ---
Author Organization [facility] Address [address] [facility] [place] [address] Care Team Providers Care Bed Machine Operator Name Role Phone Jasiel Freeman MD Primary Care Provider [phone] Reason for Visit * Reason Onset Date Comments Erroneous encounter-disregard 07/11/2022 Encounter Details Date Type Department Care Team (Late st Contact Info) Description 07/11/2022 Patient Outreach [facility] Specialty and Home Infusion - [address] [place] [address] Irina Wyatt RN Erroneous encounter-disregard [...] Office Visit [facility] IBD and Gastroenterology [facility] [address] [facility] [address] [place] [address] Kitty Dover, ANP [address] [facility] [address] [place] [address] documented as of this encounter Visit Diagnoses Not on filedocumented in this encounter Care Teams Bed Machine Operator Relationship Specialty Start Date End Date Jasiel Freeman MD [address] [place] [phone] PCP - General Family Practice 08/15/17 documented as of this encounter
--- OUTSIDE RECORDS SUMMARY | 2024-10-24 06:36 | XMS_ITS | Encounter Summary ---
Author Organization [facility] Address [address] [place] [address] Care Team Providers Care Director Of Child Welfare Services Name Role Phone Jasiel Freeman MD Primary Care Provider Reason for Visit * Reason Onset Date Comments Home Visit 09/15/2021 Encounter Details Date Type Department Care Team (Late st Contact Info) Description 09/15/2021 Patient Outreach [facility] Specialty and Home Infusion - [address] [place] [address] Irina Wyatt, RN Home Visit [...] Comments Blood Pressure 114/78 09/15/2021 10:30 AM GOLD WHEEL BLOCKER AND POLISHER Pulse 82 09/15/2021 10:30 AM GOLD WHEEL BLOCKER AND POLISHER Temperature 36.3 ??C (97.4 ??F) 09/15/2021 10:[address] Respiratory Rate 16 09/15/2021 10:30 AM GOLD WHEEL BLOCKER AND POLISHER Oxygen Saturation 97% 09/15/2021 10:30 AM GOLD WHEEL BLOCKER AND POLISHER Inhaled Oxygen Concentration - - Weight - - Height - - Body Mass Index - - documented in this encounter Miscellaneous Notes * Telephone Encounter - Irina Wyatt RN - 09/15/2021 8:38 PM CST Images from the original note were not included. [facility] Home Infusion NURSING follow up Leonidas Elkins 1970 [address] [facility] [address] Provider - Irina Wyatt RN 09/15/2021 Visit [...] yes Pt informed on importance of notifying [facility] immediately if any unexpected insurance changes occur.yes No problem observed with learning needs - No cultural, rastafarian, or language barriers to learning Patient and [...] normal mood and affect. Pain: 0 1. residential assessment and implementation of infusion [...] reactions. Patient knows how to reorder medications. [facility] Home Infusion Pharmacy will [...] in approximately 4 weeks for Entyvio infusion WHEEL BLOCKER AND POLISHER documented in this encounter Plan of Treatment Upcoming Encounters Date Type Department Care Team (Late st Contact Info) Description 02/13/2025 10:30 AM CDT Office Visit [facility] IBD and Gastro[facility]ology [facility] [place] [address] [place] [phone] Kitty Dover ANP [address] [place] [address] documented as of this encounter Visit Diagnoses Not on filedocumented in this encounter Care Teams Director Of Child Welfare Services Relationship Specialty Start Date End Date Jasiel Freeman MD [address] [place] [address] PCP - General Family Practice 08/15/17 documented as of this encounter
--- OUTSIDE RECORDS SUMMARY | 2024-10-24 06:36 | XMS_ITS | Encounter Summary ---
Author Organization [facility] Address [address] [place] [address] Care Team Providers Care Senior Military Analyst Name Role Phone Jasiel Freeman MD Primary Care Provider [phone] Reason for Visit * Auth/Cert Specialty Diagnoses / Procedures Referred By Lambert pizarro Referred To Contact Perioperative Diagnoses Ulcerative pancolitis with complication Procedures ME COLONOSCOPY FLX DX W/COLLJ SPEC WHEN PFRMD checkout COLONOSCOPY [address] [address] Referral ID Status Reason Start Date Expiration Date Visits Re quested Visits Authorized [id number] 1 1 Encounter Details Date Type Department Care Team (Late st Contact Info) Description 08/15/2022 11:30 AM CDT Anesthesia Event [address] 1 [place] [address] Estella Payne MD [address] [place] [address] Anesthesia Record Procedure Summary Procedure Name Responsible Anesthesiologist Anesthesia Start Time Anesthesia Stop Time POUCHOSCOPY (Anus) Estella Panye MD 08/15/22 113 0 08/15/22 1150 Events [...] regular Rate: normal ROS comment: Denies CP, MS, dysrhythmias Neuro/Psych GI/Hepatic/Renal Comments: Ulcerative colitis s/p [...] [facility] [place] [address] [facility] [address] [place] [address] Kitty Dover, MIRTA [address] [place] [address] [place] [address] documented as of this encounter [...] mg documented in this encounter Care Teams Senior Military Analyst Relationship Specialty Start Date End Date Jasiel Freeman MD [address] [place] [phone] PCP - General Family Practice 08/15/17 documented as of this encounter
--- OUTSIDE RECORDS SUMMARY | 2024-10-24 06:36 | XMS_ITS | Encounter Summary ---
Author Organization [facility] Address [address] [place] [address] Care Team Providers Care Multimedia Programmer Name Role Phone Jasiel Freeman MD Primary Care Provider [phone] Encounter Details Date Type Department Care Team (Late st Contact Info) Description 08/02/2021 Abstract [facility] Gastroenterology [facility] [address] [facility] [address] [place] [address] Annette Whitney MD [address] [facility] [address] [place] [address] Social History Tobacco Use Types Packs/Day Years [...] 02/13/2025 10:30 AM CDT Office Visit [facility] IBD and Gastroenterology Center [place] [address] [place] [address] Kitty Dover, MIRTA [address] [place] [address] documented as of this encounter Visit Diagnoses Not on filedocumented in this encounter Care Teams Multimedia Programmer Relationship Specialty Start Date End Date Jasiel Freeman MD [address] [place] [phone] PCP - General Family Practice 08/15/17 documented as of this encounter
--- OUTSIDE RECORDS SUMMARY | 2024-10-24 06:36 | XMS_ITS | Encounter Summary ---
Author Organization [facility] Address [address] [place] [address] Care Team Providers Care Medical Assistant Float Name Role Phone Jasiel Freeman MD Primary Care Provider Reason for Visit * Reason Comments Medication Refill Encounter Details Date Type Department Care Team (Late st Contact Info) Description 10/07/2021 Refill [facility] [address] [facility] [address] [place] [address] Annette Whitney MD [address] [facility] [address] [place] [address] Social History Tobacco Use Types Packs/Day Years [...] CST Last ov 08-02-21 Upcoming ov 02-01-22 RAFT SYSTEMS TECHNICIAN documented in this encounter Plan of Treatment Upcoming Encounters Date Type Department Care Team (Late st Contact Info) Description 02/13/2025 10:30 AM CDT Office Visit [facility] IBD and Gastroenterology [facility] [place] [address] [place] [address] Kitty Dover, ANP [address] [place] [address] [place] [address] documented as of this encounter Visit Diagnoses Not on filedocumented in this encounter Care Teams Medical Assistant Float Relationship Specialty Start Date End Date Jasiel Freeman MD [address] [place] [phone] PCP - General Family Practice 08/15/17 documented as of this encounter
--- OUTSIDE RECORDS SUMMARY | 2024-10-24 06:36 | XMS_ITS | Encounter Summary ---
Author Organization [facility] Address [address] [place] [address] Care Team Providers Care Cisco Network Engineer Name Role Phone Jasiel Freeman MD Primary Care Provider Encounter Details Date Type Department Care Team (Late st Contact Info) Description 08/06/2021 Specialty Pharmacy [facility] Specialty and Home Infusion - [address] [place] [address] Thanh Solares, PHARMACIST Social History [...] not included. [facility] [address] [facility], [address] [place] [address] PH: [phone] FX: [phone] Specialty Pharmacy Infusion Note Patient Name: Edgardo [...] 08/09/2021 How are we shipping the medication? Predatory Game Hunter Is it ok to leave? yes Delivery note: This assessment performed by: Thanh Solares PHARMACIST [facility]US[facility] [id number] [place] [address], [address] [address] PH: [phone] FX: [phone] Specialty Pharmacy Infusion Note Patient Name: Edgardo [...] n/a Patient informed on [facility] of [facility] immediately if any unexpected insurance changes occur. - n/a Authorization good through: 06/15/2022 Delivery: Delivery date: 07/12/2021 How are we shipping the medication? powderman Is it ok to leave? yes Delivery note: This assessment performed by: Thanh Solares, PHARMACIST [facility] SPECIALTY & INFUSION [address] [address] PH: [phone] FX: [phone] Specialty Pharmacy Infusion Note Patient Name: Edgardo [...] n/a Patient informed on importance of notifying [facility] Specialty and Infusion immediately if any unexpected insurance changes occur. - n/a Authorization good through: 06/15/2022 Delivery: Delivery date: 06/14/2021 How are we shipping the medication? powderman Is it ok to leave? yes Delivery note: This assessment performed by: Thanh Solares PHARMACIST [facility] SPECIALTY & INFUSION [facility] [address] [place] [address], [address] [address] PH: [phone] FX: [phone] Specialty Pharmacy Infusion Note Patient Name: Edgardo [...] 05/17/2021 How are we shipping the medication? powderman Is it ok to leave? yes Delivery note: This assessment performed by: Thanh Solares, PHARMACIST [facility] INFUSION [facility] [id number] [place] [address] PH: [phone] FX: [phone] Specialty Pharmacy Infusion Note Patient Name: Edgardo [...] 04/16/2021 How are we shipping the medication? powderman Is it ok to leave? yes Delivery note: This assessment performed by: Thanh Solares PHARMACIST [facility] SPECIAL[facility] INFUSION [facility] [address] [address] PH: [phone] FX: [phone] Specialty Pharmacy Infusion Note Patient Name: Edgardo [...] changes Patient informed on importance of notifying [facility] Specialty and Infusion immediately if any unexpected insurance changes occur. - yes Authorization good through: 06/15/2021 Delivery: Delivery date: 02/19/2021 How are we shipping the medication? Predatory Game Hunter Is it ok to leave? yes Delivery note: infusion changed to 02/22 This assessment performed by: FADI Silverman [facility] SPECIALTY [facility] INFUSION [address], [place] [address] PH: [phone] FX: [phone] Specialty Pharmacy Infusion Note Patient Name: Edgardo [...] changes Patient informed on importance of notifying [facility] Specialty and Infusion immediately if any unexpected insurance changes occur. - yes Authorization good through: 01/12/2022 Delivery: Delivery date: 01/26/2021 How are we shipping the medication? powderman Is it ok to leave? yes Delivery note: deliver before 12pm This assessment performed by: FADI Silverman [facility] Specialty & Home Infusion [facility] Infusion Order Edgardo Elkins 50 y.o. / male Patient's address (May not be service address): [address] [place] [address] Order Date: 08/06/2021 Order(s): VEDOLIZUMAB( ENTYVIO) STANDING [...] specified Order taken by Thanh Solares PHARMACIST [facility] Specialty & Home Infusion [facility] [address] [place] [address] [facility] Specialty & Home Infusion [facility] Home Infusion Order Edgardo Elkins 50 y.o. / male Patient's address (May not be service address): [address] [place] [address] Order Date: 07/08/2021 Order(s): VEDOLIZUMAB( ENTYVIO) STANDING [...] specified Order taken by Thanh Solares PHARMACIST [facility] Specialty & Home Infusion [address] [address] [facility] Home Infusion Order Edgardo Georgette Thyer 50 y.o. / male Patient's address (May not be service address): [address] [place] [address] Order Date: 10/20/2020 Order(s): Continue Entyvio 300mg IV every 4 weeks Per: Caren Whitney MD Generic substitution permitted for medications unless otherwise specified Order taken by Thanh Solares PHARMACIST [facility] [place] Infusion [address] [address] Edgardo S Thyer 50 y.o. / male Patient's address on file: [address] [place] [address] Home Phone Work Phone Home Infusion Order [...] (through 05/26/19) Per: Caren / KESHA Whitney [facility] Gastroenterology [address] [facility], [address] [facility] [address] Generic substitution permitted Detailed Home Infusion Orders [...] RN will take any ordered labs to [facility] when possible. If labs are not taken to a [facility] lab, it is the responsibility of nursing to make sure labs are faxed to the pharmacy at [phone] Whitney. Catheter Care Catheter type: PIV placed by PAY CLERK prior to each infusion Flush IV [...] lab draws/line complications. ?? Flushes provided by [facility] Specialty and Infusion pharmacy are [...] Elkins (50 y.o. male) is active with [facility] Specialty and Infusion services receiving Entyvio every 8 weeks at home for ulcerative colitis. ?? Edgardo is due for his next infusion this week. Pharmacist contacted PAY CLERK to coordinate delivery. RN will slate picker today. Patient received last infusion without issue. No questions or concerns at this time. Patient has appointment with Dr. Nair on 01/29. 05/13/19 - Spoke with the patient who stated he is doing well. He has had no changes in his medication therapy or no clinical issues. Will ship medications and supplies to the patient. Thanh Solares MBA, [facility] 08/08/19 - Patient to receive [...] Whitney Home Infusion Care Team IV Pharmacy: [facility] / [phone] Nursing Agency: [facility] Physician(s): Dr. Whitney Additional Relevant Data Insurance Information: Payor: RX [facility] / Plan: RX [employer] ADVANCE PARADIGM / Product Type: RX [employer] / IV access PIV placed by PAY CLERK prior to each infusion Ht Readings [...] level: Not on file Occupational History Employer: [employer] Employer: [employer] Tobacco Use ??? Smoking [...] Gatherings with Friends and Family: ??? Attends Sikhism Services: ??? Active Member of Clubs or [...] by intraveous injection see administration instructions. Home PAY CLERK to administer over 30 minutes every [...] to Patient ?? Pharmacist offer to certified lactation counselor ?? RN instruction ?? Printed teaching sheets ?? Drug information paperwork - [facility] patient leaflet Thanh Solares, PHARMACIST [facility] [place] [address] [address] [place] [address] documented in this encounter Plan of Treatment Upcoming Encounters Date Type Department Care Team (Late st Contact Info) Description 02/13/2025 10:30 AM CDT Office Visit [facility] IBD and Gastroenterology Center [place] [address] [facility] 180 [place] [address] Kitty Dover, MIRTA [address] [place] [address] [facility] [address] [place] [address] documented as of this encounter Visit Diagnoses Not on filedocumented in this encounter Care Teams Cisco Network Engineer Relationship Specialty Start Date End Date Jasiel Freeman MD [address] [place] [phone] PCP - General Family Practice 08/15/17 documented as of this encounter
--- OUTSIDE RECORDS SUMMARY | 2024-10-24 06:36 | XMS_ITS | Encounter Summary ---
Author Organization [facility] Address [address] [place] [address] Care Team Providers Care Oil Speculator Name Role Phone Jasiel Freeman MD Primary Care Provider [phone] Reason for Visit * Reason Onset Date Comments Home Visit 03/08/2022 Encounter Details Date Type Department Care Team (Late st Contact Info) Description 03/08/2022 Patient Outreach [facility] Specialty and Home Infusion - [address] [place] [address] Irina Wyatt, RN Home Visit [...] the original note were not included. [facility] visit Leonidas Elkins 1970 [address] [facility] [address] Provider - Irina Wyatt RN 03/08/2022 Visit [...] yes Pt informed on importance of notifying [facility] immediately if any unexpected [...] Patient knows how to reorder medications. [facility] Specialty and Home Infusion Pharmacy will [...] 02/13/2025 10:30 AM CDT Office Visit [facility] IBD [facility] Gastro[facility]ology [facility] [place] [address] [place] [address] Kitty Dover, ANP [address] [facility] 100 [place] [address] documented as of this encounter Visit Diagnoses Not on filedocumented in this encounter Care Teams Oil Speculator Relationship Specialty Start Date End Date Jasiel Freeman MD [address] [place] [phone] PCP - General Family Practice 08/15/17 documented as of this encounter
--- OUTSIDE RECORDS SUMMARY | 2024-10-24 06:36 | XMS_ITS | Encounter Summary ---
Author Organization [facility] Address [address] [place] [address] Care Team Providers Care Bioinformatics Computer Scientist Name Role Phone Jasiel Freeman MD Primary Care Provider Reason for Visit * Auth/Cert Specialty Diagnoses / Procedures Referred By Lambert pizarro Referred To Contact Perioperative Diagnoses Ulcerative pancolitis with complication Procedures DC COLONOSCOPY FLX DX W/COLLJ SPEC WHEN PFRMD checkout COLONOSCOPY [address] [place] [address] Referral ID Status Reason Start Date Expiration Date Visits Re quested Visits Authorized [id number] 1 1 Encounter Details Date Type Department Care Team (Late st Contact Info) Description 08/15/2022 12:20 PM CDT - 08/15/2022 1:00 PM CDT Surgery [address] [place] [address] Annette Whitney MD 1 [facility] DIV [place] [id number] POUCHOSCOPY Surgery Details Date/Time Status Location OR Service Patient Class Case Class Case Type Trauma Case? 08/15/2022 12:20 PM Posted [facility] GI 02 Gastroenterology Outpatient Elective No Panel [...] by intraveous injection see administration instructions. Home [employer] to administer over 30 minutes every 8 weeks. 300 mg 3 07/31/2019 11/14/2022 documented as of this encounter Progress Notes * Lisy Key RN - 08/12/2022 3:09 PM CDT Routine Pre-Anesthesia Protocol for GI Lab Procedures [facility] Approved by: [facility] - Medical Executive Committee Approval Date: 01/06/2022 ORDERS ARE ENTERED ???PER PROTOCOL?? Enter the protocol in the patient???s electronic health record using Biofuelboxrase: .anestprotocolgilab Nursing Orders: Monitoring Obtain and record vital signs on admission to [facility] Continuous vital signs (Non-invasive blood [...] appropriate, may confirm POC with: Nursing Only [id number] (this lab can be obtained at no [...] unable to obtain urine, may obtain serum [id number]) All patients with potential for childbearing (menarche [...] Addenda: 0 Procedure Date: 08/15/2022 11:16:[address] [address] * Lisy Key RN - 08/12/2022 3:09 PM CDT [facility] Nurse Assessment Patient: Edgardo Elkins : 1970 Endoscopist: Surgeon(s): Annette Whitney MD Upcoming Procedure: Procedure to be Performed: Procedure(s): checkout COLONOSCOPY Procedure Date/Time: 08/15/2022 at 1220 Diagnosis/Indication for procedure: Pre-Op Diagnosis Codes: * Ulcerative pancolitis with complication [K51.019] Location: [facility] Referring Physician: * No referring provider recorded for this case * Patient's BMI: Body mass index is 26.58 kg/m??. Is patient a candidate for offsite location? yes Medications Type of prep given: pouchoscopy prep Anticoagulants: no none Relevant prior procedure/pathology: Procedure: POUCHOSCOPY Physician: [facility] Date: 06/12/2020 Location: GI LAB Last Pathology: [...] 2002 HX HIP REPLACEMENT, TOTAL Left 10/08/2017 DC COLONOSCOPY FLX DX W/COLLJ SPEC WHEN PFRMD 12/08/2009 COLONOSCOPY performed by LOUISE RIZO at [facility] GI LAB DC COLONOSCOPY FLX DX W/COLLJ SPEC WHEN PFRMD 06/09/2014 [address]ON[address] performed by Lane Ryan MD at [facility] GI LAB DC DILATION RECTAL STRICTURE W ANEST 06/12/2012 RECTAL STRICTURE DILATATION performed by Lane Ryan MD at [facility] GI LAB DC ENDOSCOPY UPPER SMALL INTESTINE 06/12/2012 SMALL BOWEL ENTEROSCOPY performed by Lane Ryan MD at [facility] GI LAB DC ENDOSCOPY UPPER SMALL INTESTINE N/A 08/24/2017 SMALL BOWEL ENTEROSCOPY performed by Lane Ryan MD at [facility] GI LAB DC ENDOSCOPY UPPER SMALL INTESTINE W/BIOPSY 02/28/2012 BOWEL SMALL BIOPSY ENDOSCOPIC performed by Lane Ryan MD at [facility] GI LAB DC ESOPHAGOGASTRODUODENOSCOPY TRANSORAL DIAGNOSTIC 02/28/2012 ES[address]OGASTRODUODENOSCOPY performed by Lane Ryan MD at [facility] GI LAB DC NDSC EVAL INTSTINAL POUCH DX W/COLLJ SPEC SPX 02/16/2012 POUCHOSCOPY performed by Louise Rizo MD at [facility] GI LAB DC SIGMOIDOSCOPY FLX DX W/COLLJ SPEC BR/WA IF PFRMD 02/16/2012 SIGMOIDOSCOPY FLEXIBLE performed by Louise Rizo MD at [facility] GI LAB DC SIGMOIDOSCOPY FLX DX W/COLLJ SPEC BR/WA IF PFRMD N/A 06/12/2020 CHECKOUT SIGMOIDOSCOPY FLEXIBLE performed by Annette Whitney MD at [facility] GI LAB Past Medical History: Past Medical [...] by intraveous injection see administration instructions. Home [employer] to administer over 30 minutes every 8 weeks. (Patient taking differently: Inject 300 mg by intravenous injection see administration instructions. Home [employer] to administer 300 mgvia IV over 30 minutes every 4 weeks.) 300 mg 3 TESTOSTERONE, BULK, MISC 1 mL by Misc.(Non-Drug; Combo Route) route. documented in this encounter Plan of Treatment Upcoming Encounters Date Type Department Care Team (Late st Contact Info) Description 02/13/2025 10:30 AM CDT Office Visit [facility] IBD [facility] Gastro[facility] [place] [address] [place] [address] Kitty Dover ANP [address] [place] [address] documented as of this encounter Procedures Procedure Name Priority Date/Time Associated Diagnosis Comments DC NDSC EVAL INTSTINAL POUCH DX W/COLLJ SPEC SPX 08/15/2022 12:20 PM CDT Ulcerative pancolitis with complication Case Notes pouchoscopy POUCHOSCOPY REPORT 08/15/2022 11 :56 AM CDT PATHOLOGY Pathology 08/15/2022 11:45 AM CDT Ulcerative pancolitis with complication documented in this encounter Results * POUCHOSCOPY REPORT (08/15/2022 11:56 AM CDT) Narrative Procedure Note Annette Whitney MD - 08/15/2022 11:55 AM CDT [facility] Endoscopy Patient Name: Edgardo Elkins [...] Addenda: 0 Procedure Date: 08/15/2022 11:16:[address] [address] Annette Whitney MD GI PROCEDURE O RDERABLES * PATHOLOGY (08/15/2022 11:45 AM CDT) CASE REPORT Surgical Pathology Report ? Case: [id number] ? Authorizing Provider: ??Annette Whitney, ?? Collected: ? 08/15/2022 11:45 AM ? MD ? Ordering Location: ? [facility] Endoscopy ?? Received: ?08/15/2022 02:32 PM ? [facility] ? Pathologist: ? Girish Fagan DO ? Specimens: ?? A) - Colon, proximal pouch bx. ? B) - Colon, rectal cuff bx. ? 8:27 AM [facility] FINAL DIAGNOSIS Proximal pouch , endoscopic biopsy: - Chronic active enteritis with mucosal ulceration (see comment). - No granulomas or dysplasia identified. Rectal cuff , endoscopic biopsy: - Chronic active enteritis, moderate. - No granulomas or dysplasia identified. 8:27 AM [facility] NOSIS COMMENT Pouchitis and pouch involvement by inflammatory bowel disease display a similar spectrum of histologic features, and the distinction between between the two cannot be made on the basis of histology alone. 8:27 AM [facility] GROSS DESCRIPTION The specimens are received [...] in B1. ELH/MM 10/26/202 2 8:27 AM [facility] MICROSCOPIC DESCRIPTION The slides are labeled [id number] and Edgardo Elkins. Sections of the proximal [...] well-formed granulomas are seen. 2 8:27 AM [facility] OPERATIVE PROCEDURE 1: POUCHOSCOPY 2 8:27 AM [facility] CLINICAL INFORMATION K51.019-Ulcerative pancolitis with complication 2 8:27 AM [facility] COMMENT Special stain, immunohistochemical, and/or in situ hybridization results are interpreted with controls that demonstrate appropriate staining reactions. Note on use of immunohistochemistry reagents and in situ hybridization probes: These tests were developed and their performance characteristics determined by [facility], Department of Laboratory Medicine. It has not [...] part or completely in the following laboratories: [facility], [facility] #[id number] [address] [place] [address] [place] [address] [facility], [place] #[id number] [address] [place] [address] [facility], [place] #[id number] [address] [place] [address] This report was created with the [employer] voice-activated dictation system. Inherent to this system is the possibility of syntax, grammar, punctuation and other errors that could impact the interpretation of the report. If there are interpretative questions about aspects of this report, please contact the performing pathologist. 8:27 AM CDT [facility] Tissue SPECIMEN FROM COLON / Unknown Collection / Unknown 08/15/2022 11:45 AM CDT 08/15/2022 2:32 PM CDT Comment:Crohn's disease Tissue specimen (specimen) SPECIMEN FROM COLON / Unknown 08/15/2022 11:45 AM CDT 08/15/2022 2:32 PM CDT Comment:Crohn's disease Annette Whitney MD PATHOLOGY/CYTO LOGY ORDERABLES [facility]# [id number] [address] [place] [address] documented in this encounter Visit Diagnoses Diagnosis [...] RN) documented in this encounter Care Teams Bioinformatics Computer Scientist Relationship Specialty Start Date End Date Jasiel Freeman MD [address] [place] [phone] PCP - General Family Practice 08/15/17 documented as of this encounter
--- OUTSIDE RECORDS SUMMARY | 2024-10-24 06:36 | XMS_ITS | Encounter Summary ---
Author Organization [facility] Address [address] [place] [address] Care Team Providers Care Powder Blender Name Role Phone Jasiel Freeman MD Primary Care Provider Encounter Details Date Type Department Care Team (Late st Contact Info) Description 02/04/2022 Specialty Pharmacy [facility] - [address] [place] [address] Thanh Solares, PHARMACIST Social History [...] from the original note were not included. [facility]fusion - [facility] [address], [address] [place] [address] PH: [phone] FX: [phone] Specialty Pharmacy Infusion Note Patient Name: Edgardo [...] changes Patient informed on importance of notifying [facility] immediately if any unexpected insurance changes occur. - yes Authorization good through: 06/15/2022 Delivery: Delivery date: 02/07/2022 How are we shipping the medication? Doubling Machine Operator Is it ok to leave? yes Delivery note: This assessment performed by: FADI Silverman [facility] [place] [id number] PH: [phone] FX: [phone] Specialty Pharmacy Infusion Note Patient Name: Edgardo [...] changes Patient informed on importance of notifying [facility] immediately if any unexpected insurance changes occur. - yes Authorization good through: 06/15/2022 Delivery: Delivery date: 12/13/2021 How are we shipping the medication? Doubling Machine Operator Is it ok to leave? yes Delivery note: This assessment performed by: FADI Silverman [facility] [address] [address] PH: [phone] FX: [phone] Specialty Pharmacy Infusion Note Patient Name: Edgardo [...] anticipated Patient informed on importance of notifying [facility] immediately if any unexpected insurance changes occur. - yes Authorization good through: 06/15/2022 Delivery: Delivery date: 11/15/2021 How are we shipping the medication? Doubling Machine Operator Is it ok to leave? yes Delivery note: This assessment performed by: Thanh Solares, PHARMACIST [facility] [address], [address] [address] PH: [phone] FX: [phone] Specialty Pharmacy Infusion Note Patient Name: Edgardo [...] anticipated Patient informed on importance of notifying [facility] immediately if any unexpected insurance changes occur. - yes Authorization good through: 06/15/2022 Delivery: Delivery date: 10/13/2021 How are we shipping the medication? Doubling Machine Operator Is it ok to leave? yes Delivery note: This assessment performed by: Thanh Solares, PHARMACIST [facility] [address], [address] [address] PH: [phone] FX: [phone] Specialty Pharmacy Infusion Note Patient Name: Edgardo [...] 09/13/2021 How are we shipping the medication? Doubling Machine Operator Is it ok to leave? yes Delivery note: This assessment performed by: Thanh Solares, PHARMACIST [facility] [address] [address], [address] [address] PH: [phone] FX: [phone] Specialty Pharmacy Infusion Note Patient Name: Edgardo [...] 08/09/2021 How are we shipping the medication? Doubling Machine Operator Is it ok to leave? yes Delivery note: This assessment performed by: Thanh Solares, PHARMACIST [facility] [address] [address] PH: [phone] FX: [phone] Specialty Pharmacy Infusion Note Patient Name: Edgardo [...] unexpected insurance changes occur. - n/a Authorization [facility] through: 06/15/2022 Delivery: Delivery date: 07/12/2021 How are we shipping the medication? taper machine Is it ok to leave? yes Delivery note: This assessment performed by: Thanh Solares, PHARMACIST [facility] [address] [address] PH: [phone] FX: [phone] Specialty Pharmacy Infusion Note Patient Name: Edgardo [...] 06/14/2021 How are we shipping the medication? taper machine Is it ok to leave? yes Delivery note: This assessment performed by: Thanh Solares, PHARMACIST [facility] [id number] [place] [address], [place] [id number] PH: [phone] FX: [phone] Specialty Pharmacy Infusion Note Patient Name: Edgardo [...] n/a Patient informed on importance of notifying [facility] Specialty and Infusion immediately if any unexpected insurance changes occur. - n/a Authorization good through: 06/15/2021 Delivery: Delivery date: 05/17/2021 How are we shipping the medication? taper machine Is it ok to leave? yes Delivery note: This assessment performed by: Thanh Solares, PHARMACIST [facility] [address] [place] [address], [address] [address] PH: [phone] FX: [phone] Specialty Pharmacy Infusion Note Patient Name: Edgardo [...] 04/16/2021 How are we shipping the medication? taper machine Is it ok to leave? yes Delivery note: This assessment performed by: Thanh Solares, PHARMACIST [facility] [place] [id number] PH: [phone] FX: [phone] Specialty Pharmacy Infusion Note Patient Name: Edgardo [...] 02/19/2021 How are we shipping the medication? Doubling Machine Operator Is it ok to leave? yes Delivery note: infusion changed to 5/3 This assessment performed by: FADI Silverman [facility] [address], [address] [address] PH: [phone] FX: [phone] Specialty Pharmacy Infusion Note Patient Name: Edgardo [...] changes Patient informed on importance of notifying [facility] immediately if any unexpected insurance changes occur. - yes Authorization good through: 01/12/2022 Delivery: Delivery date: 01/26/2021 How are we shipping the medication? taper machine Is it ok to leave? yes Delivery note: deliver before 12pm This assessment performed by: FADI Silverman [facility] Specialty [facility] Home Infusion [facility]fusion Order Edgardo Elkins 51 y.o. / male Patient's address (May not be service address): [address] [place] [address] Order Date: 08/06/2021 Order(s): VEDOLIZUMAB( ENTYVIO) STANDING [...] Order taken by FADI Silverman [facility] Infusion [address] [address] [facility] Order Edgardo Elkins 51 y.o. / male Patient's address (May not be service address): [address] [address] Order Date: 07/08/2021 Order(s): VEDOLIZUMAB( ENTYVIO) STANDING [...] taken by Thanh Solares, PHARMACIST [facility]fusion [address] [address] [facility] Order Edgardo Elkins 51 y.o. / male Patient's address (May not be service address): [address] [address] Order Date: 10/20/2020 Order(s): Continue Entyvio 300mg IV every 4 weeks Per: Caren Whitney MD Generic substitution permitted for medications unless otherwise specified Order taken by Thanh Solares PHARMACIST [facility]fusion [facility] [address] [place] [address] Edgardo Palomino Thyer 51 y.o. / male Patient's address on file: [address] [address] Home Phone Work Phone Home Infusion Order [...] / KESHA Whitney [facility] [address], [address] [facility] [address] Generic substitution permitted Detailed Home [...] take any ordered labs to [facility] when possible. If labs are not taken to a [facility] lab, it is the responsibility of nursing to make sure labs are faxed to the pharmacy at [phone] Whitney. Catheter Care Catheter type: PIV placed by DIRECTOR MEDICAL ECONOMICS prior to each infusion Flush IV catheter [...] complications. ?? Flushes provided by [facility] Specialty [facility] Infusion pharmacy are for [...] y.o. male) is active with [facility]ty [facility] Infusion services receiving Entyvio every 8 weeks at home for ulcerative colitis. ?? Edgardo is due for his next infusion this week. Pharmacist contacted [employer] MEDICAL ECONOM[employer] to coordinate delivery. RN will chart picker today. Patient received last infusion without issue. No questions or concerns at this time. Patient has appointment with Dr. Nair on 01/29. 05/13/19 - Spoke with the patient who stated he is doing well. He has had no changes in his medication therapy or no clinical issues. Will ship medications and supplies to the patient. Thanh Solares MBA, [facility] 08/08/19 - Patient to receive infusion of Entyvio today after an insurance issue. Will send medications and supplies for the infusion. RDS 08/19/19 - Confirmed with the nurse pillowcase folder that the patient was scheduled to receive [...] [facility] [phone] Nursing Agency: [facility] Physician(s): Dr. Whitney Additional Relevant Data Insurance Information: Payor: RX [facility] / Plan: RX [employer] ADVANCE PARADIGM / Product Type: RX [employer] / IV access PIV placed by DIRECTOR MEDICAL ECONOM[employer] prior to each infusion Ht Readings from [...] level: Not on file Occupational History Employer: [employer] Employer: [employer] Tobacco Use ??? Smoking [...] intraveous injection see administration instructions. Home [employer] to administer over 30 minutes every 8 [...] Provided to Patient ?? Pharmacist offer to area counselor ?? RN instruction ?? Printed teaching sheets ?? Drug information paperwork - EH patient leaflet FADI Silverman [facility] [place] [address] [place] [address] documented in this encounter Plan of Treatment Upcoming Encounters Date Type Department Care Team (Late st Contact Info) Description 02/13/2025 10:30 AM CDT Office Visit [facility] IBD and Gastroenterology [facility] [place] [address] [place] [address] Kitty Dover ANP [address] [place] [address] documented as of this encounter Visit Diagnoses Not on filedocumented in this encounter Care Teams Powder Blender Relationship Specialty Start Date End Date Jasiel Freeman MD [address] [place] [phone] PCP - General Family Practice 08/15/17 documented as of this encounter
--- OUTSIDE RECORDS SUMMARY | 2024-10-24 06:36 | XMS_ITS | Encounter Summary ---
Author Organization [facility] Address [address] [place] [address] Care Team Providers Care Flower Grower Name Role Phone Jasiel Freeman MD Primary Care Provider Reason for Visit * Reason Comments Follow Up Encounter Details Date Type Department Care Team (Latest Contact Info) Description 08/02/2021 9:00 AM CDT Office Visit [facility] Gastroenterology [facility] [address] [facility] [address] [place] [phone] Gilma Marcos PA [address] [facility] [place] [address] [place] [address] Inflammatory bowel disease (Primary Dx) [...] Marcos PA - 08/02/2021 10:06 AM CDT [facility] Gastroenterology Outpatient Office Visit CSN: [id number] Date of Visit: 08/02/2021 Date of : 1970 PCP: Jasiel Freeman MD GI Doc: [facility] Admit: no admits over the past year [...] by intraveous injection see administration instructions. Home BACK CLOSER to administer over 30 minutes every 8 weeks. 300 mg 3 ??? TESTOSTERONE, BULK, MISC 1 mL by Misc.(Non-Drug; Combo Route) route. ??? [DISCONTINUED] ergocalciferol (VITAMIN D2) 50,000 unit capsule Take 1 Capsule (50,000 Units) bymiuth every 2 weeks. 8 Capsule 2 No [...] HX HIP REPLACEMENT, TOTAL Left 10/08/2017 ??? [place] COLONOSCOPY FLX DX W/COLLJ SPEC WHEN PFRMD 12/08/2009 COLONOSCOPY performed by WILLIAN RIZO at [facility] GI [facility] ??? [place] COLONOSCOPY FLX DX W/COLLJ SPEC WHEN PFRMD 06/09/2014 COLONOSCOPY performed by Lane Ryan MD at [facility] GI LAB ??? [place] DILATION RECTAL STRICTURE W ANEST 06/12/2012 RECTAL STRICTURE DILATATION performed by Lane Ryan MD at [facility] GI LAB ??? [place] ENDOSCOPY UPPER SMALL INTESTINE 06/12/2012 SMALL BOWEL ENTEROSCOPY performed by Lane Ryan MD at [facility] GI LAB ??? [place] ENDOSCOPY UPPER SMALL INTESTINE N/A 08/24/2017 SMALL BOWEL ENTEROSCOPY performed by Lane Ryan MD at [facility] GI LAB ??? [place] ENDOSCOPY UPPER SMALL INTESTINE W/BIOPSY 02/28/2012 BOWEL SMALL BIOPSY ENDOSCOPIC performed by Lane Ryan MD at [facility] GI LAB ??? [place] ESOPHAGOGASTRODUODENOSCOPY TRANSORAL DIAGNOSTIC 02/28/2012 ESOPHAGOGASTRODUODENOSCOPY performed by Lane Ryan MD at [facility] GI LAB ??? [place] NDSC EVAL INTSTINAL POUCH DX W/COLLJ SPEC SPX 02/16/2012 POUCHOSCOPY performed by Willian Rizo MD at [facility] LAB ??? [place] SIGMOIDOSCOPY FLX DX W/COLLJ SPEC BR/WA IF PFRMD 02/16/2012 SIGMOIDOSCOPY FLEXIBLE performed by Willian Rizo MD at [facility] GI LAB ??? [place] SIGMOIDOSCOPY FLX DX W/COLLJ SPEC BR/WA IF PFRMD N/A 06/12/2020 CHECKOUT SIGMOIDOSCOPY FLEXIBLE performed by Annette Whitney MD at [facility] GI LAB Family History Problem Relation [...] the next 6 months. Gilma Marcos PA-C [facility] Gastroenterology [address] [place] [address] Phone: [phone] CC: Jasiel Freeman MD documented in this encounter Plan of Treatment Upcoming Encounters Date Type Department Care Team (Late st Contact Info) Description 02/13/2025 10:30 AM CDT Office Visit [facility] IBD and Gastroenterology [facility] [place] [address] [place] [phone] Kitty Dover, MIRTA [address] [place] [address] [place] [address] documented as of this encounter Visit Diagnoses Diagnosis Inflammatory bowel disease- Primary Other and unspecified noninfectious gastroenteritis and colitis documented in this encounter Care Teams Flower Grower Relationship Specialty Start Date End Date Jasiel Freeman MD [address] [place] [phone] PCP - General Family Practice 08/15/17 documented as of this encounter
--- OUTSIDE RECORDS SUMMARY | 2024-10-24 06:36 | XMS_ITS | Encounter Summary ---
Author Organization [facility] Address [address] [place] [address] Care Team Providers Care Marketing Systems Manager Name Role Phone Jasiel Freeman MD Primary Care Provider Reason for Visit * Reason Comments Medication Refill Encounter Details Date Type Department Care Team (Late st Contact Info) Description 09/01/2021 Refill [facility] Gastroenterology [facility] [address] [facility] [address] [place] [address] Annette Whitney MD [address] [facility] [place] [address] Social History Tobacco Use Types Packs/Day Years [...] refill of (medication name) Dicyclomine Pharmacy Attached [id number] - [place], [place] - [address] [place] [address] Allergies Allergen Reactions ??? Infliximab Rash Other reaction(s): Sneezing flushed face Please review, sign and send. NING PROGRAM ASSISTANT documented in this encounter Plan of Treatment Upcoming Encounters Date Type Department Care Team (Late st Contact Info) Description 02/13/2025 10:30 AM CDT Office Visit [facility] IBD [facility]astroenterology [facility] [place] [address] [facility] [address] [place] [phone] Kitty Dover ANP [address] [place] [place] [address] [place] [address] documented as of this encounter Visit Diagnoses Not on filedocumented in this encounter Care Teams Marketing Systems Manager Relationship Specialty Start Date End Date Jasiel Freeman MD [address] [place] [phone] PCP - General Family Practice 08/15/17 documented as of this encounter
--- OUTSIDE RECORDS SUMMARY | 2024-10-24 06:36 | XMS_ITS | Encounter Summary ---
Author Organization [facility] Address [address] [place] [address] Care Team Providers Care Community Relations Specialist Name Role Phone Jasiel Freeman MD Primary Care Provider Reason for Visit * Reason Comments Med Refill Encounter Details Date Type Department Care Team (Late st Contact Info) Description 07/20/2022 Refill [facility] Gastroenterology [facility] [address] [facility] 1200 [place] [address] Gilma Marcos PA [address] [facility] [address] [place] [address] Social History Tobacco Use Types [...] [facility]ology [facility] [place] [address] [place] [address] Kitty Dover, [facility] [address] [place] [address] documented as of this encounter Visit Diagnoses Not on filedocumented in this encounter Care Teams Community Relations Specialist Relationship Specialty Start Date End Date Jasiel Freeman MD [address] [place] [phone] PCP - General Family Practice 08/15/17 documented as of this encounter
--- OUTSIDE RECORDS SUMMARY | 2024-10-24 06:36 | XMS_ITS | Encounter Summary ---
Author Organization [facility] Address [address] [place] [address] Care Team Providers Care Envelope Maker Name Role Phone Jasiel Freeman MD Primary Care Provider Reason for Visit * Auth/Cert Specialty Diagnoses / Procedures Referred By Lambert pizarro Referred To Contact Perioperative Diagnoses Ulcerative pancolitis with complication Procedures PA COLONOSCOPY FLX DX W/COLLJ SPEC WHEN PFRMD checkout COLONOSCOPY [facility] Endoscopy [address] [place] [address] Referral ID Status Reason Start Date Expiration Date Visits Re quested Visits Authorized [id number] 1 1 Encounter Details Date Type Department Care Team (Latest Contact Info) Description 08/15/2022 11:14 AM CDT - 08/15/2022 12:14 PM CDT Hospital Encounter [address] [place] [address] Annette Whitney MD 1 [facility] [address] DIV [place] [phone] Ulcerative pancolitis with complication Discharge Disposition: Home [...] by intraveous injection see administration instructions. Home LUCERNE FARMER to administer over 30 minutes every 8 weeks. 300 mg 3 07/31/2019 11/14/2022 documented as of this encounter Progress Notes * Lisy Key, RN - 08/12/2022 3:09 PM CDT Routine Pre-Anesthesia Protocol for GI Lab Procedures [facility] Approved by: [facility] - Medical Executive Committee Approval Date: 01/06/2022 ORDERS ARE ENTERED ???PER PROTOCOL?? Enter the protocol in the patient???s electronic health record using BrightScoperase: .anestprotocolgilab Nursing Orders: Monitoring Obtain and record vital signs on admission to [facility] Continuous vital signs (Non-invasive blood pressure, [...] appropriate, may confirm POC with: Nursing Only [id number] (this lab can be obtained at no [...] unable to obtain urine, may obtain serum [id number]) All patients with potential for childbearing (menarche [...] 08/15/2022 11:55 AM CDTAssociated Order(s): POUCHOSCOPY REPORT [facility] Endoscopy [facility] Patient Name: Edgardo Elkins Procedure Date: [...] Addenda: 0 Procedure Date: 08/15/2022 11:16:[address] [address] * Lisy Key RN - 08/12/2022 3:09 PM CDT [facility] Nurse Assessment Patient: Edgardo Elkins : 1970 Endoscopist: Surgeon(s): Annette Whitney MD Upcoming Procedure: Procedure to be Performed: Procedure(s): checkout COLONOSCOPY Procedure Date/Time: 08/15/2022 at 1220 Diagnosis/Indication for procedure: Pre-Op Diagnosis Codes: * Ulcerative pancolitis with complication [K51.019] Location: [facility] Referring Physician: * No referring [...] 2001 HX HIP REPLACEMENT, TOTAL Left 10/08/2017 [place] COLONOSCOPY FLX DX W/COLLJ SPEC WHEN PFRMD 12/08/2009 COLONOSCOPY performed by LOUISE RIZO at [facility] GI LAB PA COLONOSCOPY FLX DX W/COLLJ SPEC WHEN PFRMD 06/09/2014 COLONOSCOPY performed by Lane Ryan MD at [facility] GI LAB PA DILATION RECTAL STRICTURE W ANEST 06/12/2012 RECTAL STRICTURE DILATATION performed by Lane Ryan MD at [facility] GI LAB PA ENDOSCOPY UPPER SMALL INTESTINE 06/12/2012 SMALL BOWEL ENTEROSCOPY performed by Lane Ryan MD at [facility] GI LAB PA ENDOSCOPY UPPER SMALL INTESTINE N/A 08/24/2017 SMALL BOWEL ENTEROSCOPY performed by Lane Ryan MD at [facility] GI LAB PA ENDOSCOPY UPPER SMALL INTESTINE W/BIOPSY 02/28/2012 BOWEL SMALL BIOPSY ENDOSCOPIC performed by Lane Ryan MD at [facility] GI LAB PA ESOPHAGOGASTRODUODENOSCOPY TRANSORAL DIAGNOSTIC 02/28/2012 ESOPHAGOGASTRODUODENOSCOPY performed by Lane Ryan MD at [facility] GI LAB PA NDSC EVAL INTSTINAL POUCH DX W/COLLJ SPEC SPX 02/16/2012 POUCHOSCOPY performed by Louise Rizo MD at [facility] GI LAB PA SIGMOIDOSCOPY FLX DX W/COLLJ SPEC BR/WA IF PFRMD 02/16/2012 SIGMOIDOSCOPY FLEXIBLE performed by Louise Rizo MD at [facility] GI LAB PA SIGMOIDOSCOPY FLX DX W/COLLJ SPEC BR/WA IF PFRMD N/A 06/12/2020 CHECKOUT SIGMOIDOSCOPY FLEXIBLE performed by Annette Whitney MD at [facility] GI LAB Past Medical History: Past [...] by intraveous injection see administration instructions. Home LUCERNE FARMER to administer over 30 minutes every 8 weeks. (Patient taking differently: Inject 300 mg by intravenous injection see administration instructions. Home LUCERNE FARMER to administer 300 mgvia IV over 30 minutes every 4 weeks.) 300 mg 3 TESTOSTERONE, BULK, MISC 1 mL by Misc.(Non-Drug; Combo Route) route. documented in this encounter Plan of Treatment Upcoming Encounters Date Type Department Care Team (Late st Contact Info) Description 02/13/2025 10:30 AM CDT Office Visit [facility] IBD and Gastroenterology Center [place] [address] [facility] 180 [place] [address] Kitty Dover ANP [address] [facility] 100 [place] [address] documented as of this encounter Procedures Procedure Name Priority Date/Time Associated Diagnosis Comments PA NDSC EVAL INTSTINAL POUCH DX W/COLLJ SPEC SPX 08/15/2022 12:20 PM CDT Ulcerative pancolitis with complication Case Notes pouchoscopy POUCHOSCOPY REPORT 08/15/2022 11 :56 AM CDT PATHOLOGY Pathology 08/15/2022 11:45 AM CDT Ulcerative pancolitis with complication documented in this encounter Results * POUCHOSCOPY REPORT (08/15/2022 11:56 AM CDT) Narrative Procedure Note Annette Whitney MD - 08/15/2022 11:55 AM CDT [facility] Endoscopy Patient Name: Edgardo Elkins Procedure [...] Addenda: 0 Procedure Date: 08/15/2022 11:16:26 AM [address] [facility] [address] [place] [address] Annette Whitney MD GI PROCEDURE O RDERABLES * PATHOLOGY (08/15/2022 11:45 AM CDT) CASE REPORT Surgical Pathology Report ? Case: [id number] ? Authorizing Provider: ??Annette Whitney, ?? Collected: ? 08/15/2022 11:45 AM ? MD ? Ordering Location: ? [facility] Endoscopy ?? Received: ?08/15/2022 02:32 PM ? [facility] ? Pathologist: ? Girish Fagan, DO ? Specimens: ?? A) - Colon, proximal pouch bx. ? B) - Colon, rectal cuff bx. ? 8:27 AM [facility] FINAL DIAGNOSIS Proximal pouch , endoscopic biopsy: - Chronic active enteritis with mucosal ulceration (see comment). - No granulomas or dysplasia identified. Rectal cuff , endoscopic biopsy: - Chronic active enteritis, moderate. - No granulomas or dysplasia identified. 2 8:27 AM [facility] NOSIS COMMENT Pouchitis and pouch involvement by inflammatory bowel disease display a similar spectrum of histologic features, and the distinction between between the two cannot be made on the basis of histology alone. 8:27 AM [facility] GROSS DESCRIPTION The specimens are received in [...] submitted in B1. ELJens/MM 8:27 AM [facility] MICROSCOPIC DESCRIPTION The slides are labeled [id number] and Edgardo Elkins. Sections of the proximal [...] granulomas are seen. 2 8:27 AM [facility] OPERATIVE PROCEDURE 1: POUCHOSCOPY 2 8:27 AM [facility] CLINICAL INFORMATION K51.019-Ulcerative pancolitis with complication 2 8:27 AM [facility] COMMENT Special stain, immunohistochemical, and/or in situ hybridization results are interpreted with controls that demonstrate appropriate staining reactions. Note on use of immunohistochemistry reagents and in situ hybridization probes: These tests were developed and their performance characteristics determined by [facility], Department of Laboratory Medicine. It [...] part or completely in the following laboratories: [facility], CLIA #[id number] [address] [place] [address] [id number] 1 [place] [address] [facility], [place] #[id number] [address] [place] [address] This report was created with the CloudTran-activated dictation system. Inherent to this system is the possibility of syntax, grammar, punctuation and other errors that could impact the interpretation of the report. If there are interpretative questions about aspects of this report, please contact the performing pathologist. 8:27 AM CDT [facility] Tissue SPECIMEN FROM COLON / Unknown Collection / Unknown 08/15/2022 11:45 AM CDT 08/15/2022 2:32 PM CDT Comment:Crohn's disease Tissue specimen (specimen) SPECIMEN FROM COLON / Unknown 08/15/2022 11:45 AM CDT 08/15/2022 2:32 PM CDT Comment:Crohn's disease Annette Whitney MD PATHOLOGY/CYTO LOGY ORDERABLES [facility] CLIA# [id number] [address] [place] [address] documented in this encounter Visit Diagnoses Diagnosis [...] RN) documented in this encounter Care Teams Envelope Maker Relationship Specialty Start Date End Date Jasiel Freeman MD [address] [place] [phone] PCP - General Family Practice 08/15/17 documented as of this encounter
--- OUTSIDE RECORDS SUMMARY | 2024-10-24 06:36 | XMS_ITS | Encounter Summary ---
Author Organization [facility] Address [address] [place] [address] Care Team Providers Care Oncology Admin Name Role Phone Jasiel Freeman MD Primary Care Provider Reason for Visit * Reason Onset Date Comments Home Visit 08/10/2021 Encounter Details Date Type Department Care Team (Late st Contact Info) Description 08/10/2021 Patient Outreach [facility] - [address] [place] [address] Irina Wyatt, RN Home Visit [...] Wyatt RN - 08/11/2021 11:[address] [facility] Home Infusion NURSING follow up Leonidas Elkins [address] [facility] [place] [address] Provider - Irina Wyatt RN 08/10/21 Visit [...] Pt informed on importance of notifying [facility] immediately if any unexpected insurance changes occur.yes No problem observed with learning needs - No cultural, methodist, or language barriers to learning Patient and [...] Patient knows how to reorder medications. [facility] will dispense [...] Office Visit [facility] [place] [address] [place] [address] Kitty Dover, ANP [address] [facility] 100 [place] [address] documented as of this encounter Visit Diagnoses Not on filedocumented in this encounter Care Teams Oncology Admin Relationship Specialty Start Date End Date Jasiel Freeman MD [address] [place] [phone] PCP - General Family Practice 08/15/17 documented as of this encounter
--- OUTSIDE RECORDS SUMMARY | 2024-10-24 06:36 | XMS_ITS | Encounter Summary ---
Author Organization [facility] Address [address] [place] [address] Care Team Providers Care Yacht Master Name Role Phone Jasiel Freeman MD Primary Care Provider Reason for Visit * Reason Onset Date Comments Home Visit 07/13/2021 Encounter Details Date Type Department Care Team (Late st Contact Info) Description 07/13/2021 Patient Outreach [facility] Specialty and Home Infusion - [address] [place] [address] Irina Wyatt, RN Home Visit [...] original note were not included. [facility] Home Infusion NURSING follow up Leonidas Elkins 1970 [address] [facility] [address] Provider - Irina Wyatt RN 07/13/21 Visit start 1415 Visit end 1519 Contact numbers provided including after hours numbers [...] informed on importance of notifying [facility] immediately if any unexpected [...] normal mood and affect. Pain: 0 1. assisted assessment and implementation of infusion [...] knows how to reorder medications. [facility]fusion Pharmacy will [...] [facility] [place] [address] [place] [phone] Kitty Dover ANP [address] [place] [address] documented as of this encounter Visit Diagnoses Not on filedocumented in this encounter Care Teams Yacht Master Relationship Specialty Start Date End Date Jasiel Freeman MD [address] [place] [address] PCP - General Family Practice 08/15/17 documented as of this encounter
--- OUTSIDE RECORDS SUMMARY | 2024-10-24 06:36 | XMS_ITS | Encounter Summary ---
Author Organization [facility] Address [address] [place] [address] Care Team Providers Care Heel Wheeler Name Role Phone Jasiel Freeman MD Primary Care Provider Encounter Details Date Type Department Care Team (Late st Contact Info) Description 08/08/2022 Specialty Pharmacy [facility] Specialty and Home Infusion - [address] [place] [address] Jameson Borja, PHARMACIST Social History [...] orders: No labs needed Nursing Provided by [facility] Specialty and Home Infusion [facility] Therapy Specific Entyvio (vedolizumab) The most common infusion reactions of Entyvio include: Common cold Headache Joint pain Nausea Fever Infections of the nose and throat Tiredness Cough Bronchitis Flu Back pain Rash Itching Sinus infection Throat pain Pain in extremities Note: JACQUARD LOOM HEDDLES TIER to observe patient during infusion and monitor [...] package? Yes Delivery Instructions: deliver 07/1722 via contour path tape mill operator Note: General Information for this assessment provided by Epic Record HIPAA contact identified: Yes Note: ???Welcome Packet?? been provided to the patient Yes Note: Provided with initial delivery / via [facility] Additional Notes Pharmacy communicated/coordinated with MD newspaper photo editor? Yes Follow up notes for next encounter? [...] 10:30 AM CDT Office Visit [facility] IBD and Gastroenterology [facility] [place] [address] [place] [phone] Kitty Dover, MIRTA [address] [place] [address] documented as of this encounter Visit Diagnoses Not on filedocumented in this encounter Care Teams Heel Wheeler Relationship Specialty Start Date End Date Jasiel Freeman MD [address] [place] [phone] PCP - General Family Practice 08/15/17 documented as of this encounter
--- OUTSIDE RECORDS SUMMARY | 2024-10-24 06:36 | XMS_ITS | Encounter Summary ---
Author Organization [facility] Address [address] [place] [address] Care Team Providers Care Furniture Assembly Supervisor Name Role Phone Jasiel Freeman MD Primary Care Provider Reason for Visit * Reason Comments Medication Refill Encounter Details Date Type Department Care Team (Late st Contact Info) Description 12/04/2021 Refill [facility] Gastroenterology [facility] [address] [facility] [address] [place] [address] Annette Whitney MD [address] [facility] DIV [place] [address] Social History Tobacco Use Types Packs/Day Years [...] [facility] IBD and Gastroenterology [facility] [place] [address] [place] [address] Kitty Dover ANP [address] [place] [address] documented as of this encounter Visit Diagnoses Not on filedocumented in this encounter Care Teams Furniture Assembly Supervisor Relationship Specialty Start Date End Date Jasiel Freeman MD [address] [place] [phone] PCP - General Family Practice 08/15/17 documented as of this encounter
--- OUTSIDE RECORDS SUMMARY | 2024-10-24 06:36 | XMS_ITS | Encounter Summary ---
Author Organization [facility] Address [address] [place] [address] Care Team Providers Care Pigment Supplier Name Role Phone Jasiel Freeman MD Primary Care Provider Reason for Visit * Reason Onset Date Comments Home Visit 11/16/2021 Encounter Details Date Type Department Care Team (Late st Contact Info) Description 11/16/2021 Patient Outreach [facility] Specialty and Home Infusion - [address] [place] [address] Irina Wyatt, RN Home Visit [...] Comments Blood Pressure 124/82 11/16/2021 2:15 PM METER MECHANIC Pulse 94 11/16/2021 2:15 PM METER MECHANIC Temperature 37.2 ??C (99 ??F) 11/16/2021 2:15 PM METER MECHANIC Respiratory Rate 16 11/16/2021 2:15 PM METER MECHANIC Oxygen Saturation 93% 11/16/2021 2:15 PM METER MECHANIC Inhaled Oxygen Concentration - - Weight - - Height - - Body Mass Index - - documented in this encounter Miscellaneous Notes * Telephone Encounter - Irina Wyatt RN - 11/17/2021 6:39 PM CST Images from the original note were not included. [facility] Specialty and Home Infusion Pharmacy Home Infusion NURSING follow up Tamekaraad Edgardo Palomino Brittni 1970 [address] [facility] [address] Provider - rIina Wyatt RN 11/16/21 Visit start 1405 Visit [...] normal mood and affect. Pain: 0 1. FPC assessment and implementation of infusion [...] approximately 4 weeks for Entyvio infusion R MECHANIC documented in this encounter Plan of Treatment Upcoming Encounters Date Type Department Care Team (Late st Contact Info) Description 02/13/2025 10:30 AM CDT Office Visit [facility] IBD and Gastroenterology [facility] [place] [address] [place] [phone] Kitty Dover ANP [address] [place] [address] documented as of this encounter Visit Diagnoses Not on filedocumented in this encounter Care Teams Pigment Supplier Relationship Specialty Start Date End Date Jasiel Freeman MD [address] [place] [phone] PCP - General Family Practice 08/15/17 documented as of this encounter
--- OUTSIDE RECORDS SUMMARY | 2024-10-24 06:36 | XMS_ITS | Encounter Summary ---
Author Organization [facility] Address [address] [place] [address] Care Team Providers Care Drupal Architect Name Role Phone Jasiel Freeman MD Primary Care Provider Reason for Visit * Reason Comments Medication Refill Encounter Details Date Type Department Care Team (Late st Contact Info) Description 12/20/2021 Refill [facility] Gastroenterology [facility] [address] [facility] [address] [place] [address] Annette Whitney MD [address] [facility] [address] [place] [address] Social History Tobacco Use Types Packs/Day Years [...] ov 08/02/21 next ov 02/01/22 please advise NESS TRAINER documented in this encounter Plan of Treatment Upcoming Encounters Date Type Department Care Team (Late st Contact Info) Description 02/13/2025 10:30 AM CDT Office Visit [facility] IBD [facility]astroenterology [facility] [place] [address] [place] [address] Kitty Dover, MIRTA [address] [place] [address] [place] [address] documented as of this encounter Visit Diagnoses Not on filedocumented in this encounter Care Teams Drupal Architect Relationship Specialty Start Date End Date Jasiel Freeman MD [address] [place] [phone] PCP - General Family Practice 08/15/17 documented as of this encounter
--- OUTSIDE RECORDS SUMMARY | 2024-10-24 06:36 | XMS_ITS | Encounter Summary ---
Author Organization [facility] Address [address] [place] [address] Care Team Providers Care Real Estate Financial Analyst Name Role Phone Jasiel Freeman MD Primary Care Provider Reason for Referral * Outpatient Services (Routine) - Closed Specialty Diagnoses / Procedures Referred By Contalka t Referred To Contact Pharmacy Diagnoses Ulcerative pancolitis without complication Procedures INFUSION THERAPY Annette Whitney MD [address] [facility] [address] [place] [address] Zzzstlrx [facility] Specialty And Home Infusion [address] [place] [address] Referral ID Status Reason Start Date Expiration Date Visits Re quested Visits Authorized [id number] Closed 08/06/2021 09/06/2022 1 1 Encounter Details Date Type Department Care Team (Late st Contact Info) Description 08/06/2021 Orders Only [facility]ology [facility] [address] [facility] [address] [place] [address] Annette Whitney MD 1 [facility] [place] [address] Ulcerative pancolitis without complication (Primary [...] [facility] IBD and Gastroenterology [facility] [place] [address] [facility] [address] [place] [address] Kitty Dover [facility] [address] [facility] [address] [place] [address] documented as of this encounter Visit Diagnoses Diagnosis Ulcerative pancolitis without complication- Primary documented in this encounter Care Teams Real Estate Financial Analyst Relationship Specialty Start Date End Date Jasiel Freeman MD [address] [place] [phone] PCP - General Family Practice 08/15/17 documented as of this encounter
--- OUTSIDE RECORDS SUMMARY | 2024-10-24 06:36 | XMS_ITS | Encounter Summary ---
Author Organization [facility] Address [address] [place] [address] Care Team Providers Care Environmental Officer Name Role Phone Jasiel Freeman MD Primary Care Provider Reason for Referral * Outpatient Services (Routine) - Closed Specialty Diagnoses / Procedures Referred By Contalka t Referred To Contact Pharmacy Diagnoses Ulcerative pancolitis without complication Procedures INFUSION THERAPY Annette Whitney MD 1 [facility] [address] [place] [address] Zzzstlrx [facility] Specialty And Home Infusion [address] [place] [address] Referral ID Status Reason Start Date Expiration Date Visits Re quested Visits Authorized [id number] Closed 07/08/2021 08/08/2022 1 1 Encounter Details Date Type Department Care Team (Late st Contact Info) Description 07/08/2021 Orders Only [facility] Gastroenterology [facility] [address] [facility] [address] [place] [address] Annette Whitney MD 1 [facility] [place] [address] Ulcerative pancolitis without complication (Primary [...] [facility] IBD and Gastroenterology Center [place] [address] [place] [address] Kitty Dover ANP [address] [place] [address] [place] [address] Scheduled Orders Name Type Priority Associated Diagnoses [...] QUANTIFERON TB GOLD (07/29/2021 8:06 AM CDT) [facility] QUANTIFERON TB GOLD PLUS NEGATIVE NEGATIVE [facility] Comment: Negative test result. M. tuberculosis complex infection unlikely. NIL 0.01 IU/mL [facility] MITOGEN-NIL 8.42 IU/mL [facility] TB1 AG - NIL 0.00 IU/mL [facility] TB2 AG - NIL 0.00 IU/mL [facility] Comment: The Nil tube value reflects the [...] T-lymphocytes. For additional information, please refer to https://education.Fashinating/faq/UBT077 (This link is being provided for informational/ educational purposes only.) Test Performed at: [facility] [address] [place] ??[phone] James Peres D.O., MPH 07/29/2021 8:06 AM CDT 07/29/2021 8:07 AM CDT Annette PRITCHETT Performing Organization Address [facility] Co de Phone Number [facility] [address] [place] [address] * (ABNORMAL) VITAMIN D 25 HYDROXY (07/29/2021 8:06 AM CDT) [facility] VITAMIN D, 25 OH, TOTAL 23(L) 30 - 100 ng/mL [facility] Comment: Vitamin D Status ? 25-OH Vitamin D: Deficiency: ?<20 ng/mL Insufficiency: ? 20 - 29 ng/mL Optimal: ? > or = 30 ng/mL For 25-OH Vitamin D testing on patients on D2-supplementation and patients for whom quantitation of D2 and D3 fractions is required, the QuestAssureD(TM) 25-OH VIT D, (D2,D3), LC/MS/MS is recommended: order code 65515 (patients >2yrs). See Note 1 Note 1 For additional information, please refer to http://education.Lukup Media/faq/IES624 (This link is being provided for informational/ educational purposes only.) Test Performed at: [facility] [address] [place] [address] ??[phone] James Peres D.O., MPH Blood 07/29/2021 8:06 AM CDT 07/29/2021 8:07 AM CDT Annette PRITCHETT Performing Organization Address [facility] Co de Phone Number [facility] [address] [place] [address] * VITAMIN B12 LEVEL (07/29/2021 8:06 AM CDT) VITAMIN B12 245 200 - 1100 pg/mL [facility] Comment: Please Note: Although the reference range for vitamin B12 is 200-1100 pg/mL, it has been reported that between 5 and 10% of patients with values between 200 and 400 pg/mL may experience neuropsychiatric and hematologic abnormalities due to occult B12 deficiency; less than 1% of patients with values above 400 pg/mL will have symptoms. Test Performed at: [facility] [address] [place] [address] ??[phone] James Peres D.O., MPH Blood 07/29/2021 8:06 AM CDT 07/29/2021 8:07 AM CDT Annette Whitney MD CHEMISTRY ORDToño PRITCHETT Performing Organization Address [facility] de Phone Number [facility] [address] [place] [address] * C-REACTIVE PROTEIN (07/29/2021 8:06 AM CDT) Pathologist [facility] CRP 6.7 <8.0 mg/L [facility] Comment: Test Performed at: [facility] ??[phone] aJmes Peres D.O., MPH Blood 07/29/2021 8:06 AM CDT 07/29/2021 8:07 AM CDT Annette Whitney MD CHEMISTRY ORDToño PRITCHETT Performing Organization Address [facility] Co de Phone Number [facility] [address] [place] [address] * (ABNORMAL) COMPREHENSIVE METABOLIC PANEL (07/29/2021 8:06 AM CDT) Pathologist [facility] GLUCOSE 115(H) 65 - 99 mg/dL [facility] Comment: ? Fasting reference interval For someone without known diabetes, a glucose value between 100 and 125 mg/dL is consistent with prediabetes and should be confirmed with a follow-up test. BUN 16 7 - 25 mg/dL [facility] CREATININE 1.23 0.70 - 1.33 mg/dL [facility] Comment: For patients >49 years of age, the reference limit for Creatinine is approximately 13% higher for people identified as -Bhutanese. GFR 68 > OR = 60 mL/min/1 .73m2 [facility] GFR, 79 > OR = 60 mL/min/1 .73m2 [facility] BUN/CREAT RATIO NOT APPLICABLE 6 - 22 (calc) [facility] SODIUM 136 135 - 146 mmol/L [facility] POTASSIUM 4.8 3.5 - 5.3 mmol/L [facility] CHLORIDE 102 98 - 110 mmol/L [facility] CO2 27 20 - 32 mmol/L [facility] CALCIUM 9.0 8.6 - 10.3 mg/dL [facility] TOTAL PROTEIN 7.0 6.1 - 8.1 g/dL [facility] ALBUMIN 3.9 3.6 - 5.1 g/dL [facility] GLOBULIN 3.1 1.9 - 3.7 g/dL (calc) [facility] ALBUMIN/GLOBULIN RATIO 1.3 1.0 - 2.5 (calc) [facility] BILIRUBIN TOTAL 0.5 0.2 - 1.2 mg/dL [facility] ALKALINE PHOSPHATASE 64 35 - 144 U/L [facility] AST 16 10 - 35 U/L [facility] ALT 16 9 - 46 U/L [facility] Comment: Test Performed at: [facility] ??[phone] James Peres D.O., MPH Blood 07/29/2021 8:06 AM CDT 07/29/2021 8:07 AM CDT Annette Whitney MD CHEMISTRY SHELBY PRITCHETT [facility] [address] [place] [address] * (ABNORMAL) CBC WITH DIFFERENTIAL (07/29/2021 8:06 AM CDT) WBC 6.4 3.8 - 10.8 Thousand/u L [facility] RBC 6.05(H) 4.20 - 5.80 Million/uL [facility] HEMOGLOBIN 15.0 13.2 - 17.1 g/dL [facility] HEMATOCRIT 49.4 38.5 - 50.0 % [facility] MCV 81.7 80.0 - 100.0 fL [facility] MCH 24.8(L) 27.0 - 33.0 pg [facility] MCHC 30.4(L) 32.0 - 36.0 g/dL [facility] RDW 14.6 11.0 - 15.0 % [facility] PLATELETS 395 140 - 400 Thousand/u L [facility] MPV 10.0 7.5 - 12.5 fL [facility] NEUTROPHIL ABSOLUTE 4,627 1,500 - 7,800 cells/uL [facility] LYMPHOCYTE ABSOLUTE 1,056 850 - 3,900 cells/uL [facility] MONOCYTE ABSOLUTE 544 200 - 950 cells/uL [facility] EOSINOPHIL ABSOLUTE 122 15 - 500 cells/uL [facility] BASOPHILS ABSOLUTE 51 0 - 200 cells/uL [facility] NEUTROPHIL 72.3 % [facility] LYMPHOCYTES 16.5 % [facility] MONOCYTE 8.5 % [facility] EOSINOPHILS 1.9 % [facility] BASOPHILS 0.8 % [facility] Comment: Test Performed at: [facility] [address] [place] [address] ??[phone] James Peres D.O., MPH Blood 07/29/2021 8:06 AM CDT 07/29/2021 8:07 AM CDT Annette Whitney MD HEMATOLOGY ORD ERABLES [facility] [address] [place] [address] documented in this encounter Visit Diagnoses Diagnosis Ulcerative pancolitis without complication- Primary documented in this encounter Care Teams Environmental Officer Relationship Specialty Start Date End Date Jasiel Freeman MD [address] [place] [address] PCP - General Family Practice 08/15/17 documented as of this encounter
--- OUTSIDE RECORDS SUMMARY | 2024-10-24 06:36 | XMS_ITS | Encounter Summary ---
Author Organization [facility] Address [address] [place] [address] Care Team Providers Care Tool Room Gear Machine Operator Name Role Phone Jasiel Freeman MD Primary Care Provider Encounter Details Date Type Department Care Team (Late st Contact Info) Description 07/06/2021 Abstract [facility] Gastroenterology [place] [id number] [address] Sondra Lowry Social History Tobacco [...] CDT Office Visit [facility] IBD and Gastroenterology Center [place] [address] [place] [address] Kitty Dover ANP [address] [place] [address] documented as of this encounter Visit Diagnoses Not on filedocumented in this encounter Care Teams Tool Room Gear Machine Operator Relationship Specialty Start Date End Date Jasiel Freeman MD [address] [place] [phone] PCP - General Family Practice 08/15/17 documented as of this encounter
--- OUTSIDE RECORDS SUMMARY | 2024-10-24 06:36 | XMS_ITS | Encounter Summary ---
Author Organization [facility] Address [address] [place] [address] Care Team Providers Care Nuclear Technologist Name Role Phone Jasiel Freeman MD Primary Care Provider [phone] Encounter Details Date Type Department Care Team (Late st Contact Info) Description 07/08/2021 Specialty Pharmacy [facility] - [address] [place] [address] Thanh Solares, PHARMACIST Social History [...] not included. [facility]fusion - [facility] SPECIALTY & INFUSION [facility] [address] [facility], [address] [place] [address] PH: [phone] FX: [phone] Specialty Pharmacy Infusion Note Patient Name: Edgardo [...] n/a Patient informed on importance of notifying [facility] Specialty and Infusion immediately if any unexpected insurance changes occur. - n/a Authorization good through: 06/15/2022 Delivery: Delivery date: 07/12/2021 How are we shipping the medication? academic support director Is it ok to leave? yes Delivery note: This assessment performed by: Thanh Solares, PHARMACIST [facility] SPECIALTY & INFUSION [address], [place] [address] PH: [phone] FX: [phone] Specialty Pharmacy Infusion Note Patient Name: Edgardo [...] n/a Patient informed on importance of notifying [facility] Specialty and Infusion immediately if any unexpected insurance changes occur. - n/a Authorization good through: 06/15/2022 Delivery: Delivery date: 06/14/2021 How are we shipping the medication? academic support director Is it ok to leave? yes Delivery note: This assessment performed by: Thanh Solares, PHARMACIST [facility] [address] [facility], [address] [place] [address] PH: [phone] FX: [phone] Specialty Pharmacy Infusion Note Patient Name: Edgardo [...] 05/17/2021 How are we shipping the medication? academic support director Is it ok to leave? yes Delivery note: This assessment performed by: Thanh Solares, PHARMACIST [facility] [address] [facility], [address] [address] PH: [phone] FX: [phone] Specialty Pharmacy Infusion Note Patient Name: Edgardo [...] 04/16/2021 How are we shipping the medication? academic support director Is it ok to leave? yes Delivery note: This assessment performed by: Thanh Solares PHARMACIST [facility] [address] [place] [address] PH: [phone] FX: [phone] Specialty Pharmacy Infusion Note Patient Name: Edgardo [...] changes Patient informed on importance of notifying [facility] immediately if any unexpected insurance changes occur. - yes Authorization good through: 06/15/2021 Delivery: Delivery date: 02/19/2021 How are we shipping the medication? [employer] Laboratory Director Is it ok to leave? yes Delivery note: infusion changed to 02/22 This assessment performed by: Thanh Solares PHARMACIST [facility] [id number] [place] [address], [address] [address] PH: [phone] FX: [phone] Specialty Pharmacy Infusion Note Patient Name: Edgardo [...] 01/26/2021 How are we shipping the medication? academic support director Is it ok to leave? yes Delivery note: deliver before 12pm This assessment performed by: FADI Silverman [facility] Specialty & Home Infusion [facility] Home Infusion Order Edgardo Elkins 50 y.o. / male Patient's address (May not be service address): [address] [place] [id number] Order Date: 07/08/21 Order(s): VEDOLIZUMAB( ENTYVIO) STANDING [...] by FADI Silverman Specialty & Home Infusion [facility] [address] [place] [address] [facility] Specialty & Home Infusion [facility] Home Infusion Order Edgardo Elkins 50 y.o. / male Patient's address (May not be service address): [address] [facility] [address] Order Date: 10/20/2020 Order(s): Continue Entyvio 300mg IV every 4 weeks Per: Caren Whitney MD Generic substitution permitted for medications unless otherwise specified Order taken by Thanh Solares PHARMACIST [facility] Specialty & Home Infusion [facility] [address] [place] [address] Edgardo Welcher 50 y.o. / male Patient's address on file: [address] [place] [address] Home Phone Work Phone Home Infusion Order [...] (through 05/26/19) Per: Caren / KESHA Whitney [facility] Gastroenterology [address], [address] [...] RN will take any ordered labs to [facility] when possible. If labs are not taken to a [facility] lab, it is the responsibility of nursing to make sure labs are faxed to the pharmacy at [phone] Whitney. Catheter Care Catheter type: PIV placed by [employer] prior to each infusion Flush IV catheter [...] lab draws/line complications. ?? Flushes provided by [facility] Specialty and Infusion pharmacy are for [...] Elkins (50 y.o. male) is active with [facility] Specialty and Infusion services receiving Entyvio every 8 weeks at home for ulcerative colitis. ?? Edgardo is due for his next infusion this week. Pharmacist contacted [employer] to coordinate delivery. RN will corn picker today. Patient received last infusion without [...] RDS 08/19/19 - Confirmed with the nurse counter caser that the patient was scheduled to [...] [facility] Home Infusion Care Team [facility] / [phone] Nursing Agency: [facility] Physician(s): Dr. Whitney Additional Relevant Data Insurance Information: Payor: RX [facility] / Plan: RX PCS ADVANCE PARADIGM / Product Type: RX [employer] / IV access PIV placed by DYE HOUSE HELPER prior to each infusion Ht Readings from [...] level: Not on file Occupational History Employer: [employer] Employer: [employer] Tobacco Use ??? Smoking [...] by intraveous injection see administration instructions. Home [employer] HOUSE [employer]PER to administer over 30 minutes every [...] Provided to Patient ?? Pharmacist offer to university counselor ?? RN instruction ?? Printed teaching sheets ?? Drug information paperwork - [facility] patient leaflet FADI Silverman [facility] Specialty & Infusion - [place] [address] [place] [address] , [address] [place] [address] documented in this encounter Plan of Treatment Upcoming Encounters Date Type Department Care Team (Late st Contact Info) Description 02/13/2025 10:30 AM CDT Office Visit [facility] IBD and Gastroenterology Center [place] [address] [facility] [address] [place] [address] Kityt Dover ANP [address] [place] [address] [facility] [address] [place] [address] documented as of this encounter Visit Diagnoses Not on filedocumented in this encounter Care Teams Nuclear Technologist Relationship Specialty Start Date End Date Jasiel Freeman MD [address] [place] [phone] PCP - General Family Practice 08/15/17 documented as of this encounter
--- OUTSIDE RECORDS SUMMARY | 2024-10-24 06:36 | XMS_ITS | Encounter Summary ---
Author Organization [facility] Address [address] [place] [address] Care Team Providers Care Newborn Hearing Screener Name Role Phone Jasiel Freeman MD Primary Care Provider [phone] Encounter Details Date Type Department Care Team (Late st Contact Info) Description 06/03/2021 Abstract [facility] Gastroenterology [facility] [address] [facility] [address] [place] [address] Sondra Lowry Social History Tobacco [...] [facility] [place] [address] [place] [address] Kitty Dover ANP [address] [place] [address] [place] [address] documented as of this encounter Visit Diagnoses Not on filedocumented in this encounter Care Teams Newborn Hearing Screener Relationship Specialty Start Date End Date Jasiel Freeman MD [address] [place] [address] PCP - General Family Practice 08/15/17 documented as of this encounter
--- OUTSIDE RECORDS SUMMARY | 2024-10-24 06:36 | XMS_ITS | Encounter Summary ---
Author Organization [facility] Address [address] [place] [address] Care Team Providers Care Railcar Switchman Name Role Phone Jasiel Freeman MD Primary Care Provider [phone] Reason for Visit * Reason Onset Date Comments Home Visit 06/14/2022 Encounter Details Date Type Department Care Team (Late st Contact Info) Description 06/14/2022 Patient Outreach [facility] Specialty and Home Infusion - [address] [place] [address] Irina Wyatt, RN Home Visit [...] from the original note were not included. [facility]fusion Pharm[facility] Home Infusion NURSING follow up Leonidas Elkins 1970 [address] [facility] [address] Provider - Irina Wyatt RN 06/14/2022 Visit [...] yes Pt informed on importance of notifying [facility] immediately if any [...] normal mood and affect. Pain: 0 1. MCFP assessment and implementation of infusion therapy. Teaching [...] reactions. Patient knows how to reorder medications. [facility] Home Infusion Pharmacy [...] Description 02/13/2025 10:30 AM CDT Office Visit [facility] IBD and Gastroenterology [facility] [place] [address] [place] [phone] Kitty Dover ANP [address] [place] [address] documented as of this encounter Visit Diagnoses Not on filedocumented in this encounter Care Teams Railcar Switchman Relationship Specialty Start Date End Date Jasiel Freeman MD [address] [place] [address] PCP - General Family Practice 08/15/17 documented as of this encounter
--- OUTSIDE RECORDS SUMMARY | 2024-10-24 06:36 | XMS_ITS | Encounter Summary ---
Author Organization [facility] Address [address] [place] [address] Care Team Providers Care Tester Food Products Name Role Phone Jasiel Freeman MD Primary Care Provider Reason for Visit * Reason Onset Date Comments Home Visit 05/18/2021 Encounter Details Date Type Department Care Team (Late st Contact Info) Description 05/18/2021 Patient Outreach [facility] Specialty and Home Infusion - [address] [place] [address] Irina Wyatt, RN Home Visit [...] original note were not included. [facility] Home Infusion Pharmacy [address] [place] [address] Home Infusion NURSING follow up Leonidas Elkins 1970 [address] [facility] [address] Provider - Irina Wyatt RN 05/18/2021 Visit [...] yes Pt informed on importance of notifying [facility] immediately if any unexpected insurance changes occur.yes No problem observed with learning needs - No cultural, church, or language barriers to learning Patient and [...] reactions. Patient knows how to reorder medications. [facility] Specialty and Home Infusion Pharmacy [...] [place] [address] [place] [address] Kitty Dover, ANP [address] [place] [address] documented as of this encounter Visit Diagnoses Not on filedocumented in this encounter Care Teams Tester Food Products Relationship Specialty Start Date End Date Jasiel Freeman MD [address] [place] [phone] PCP - General Family Practice 08/15/17 documented as of this encounter
--- OUTSIDE RECORDS SUMMARY | 2024-10-24 06:36 | XMS_ITS | Encounter Summary ---
Author Organization [facility] Address [address] [place] [address] Care Team Providers Care Filter Press Pumper Name Role Phone Jasiel Freeman MD Primary Care Provider Encounter Details Date Type Department Care Team (Late st Contact Info) Description 05/16/2022 Specialty Pharmacy [facility] Specialty and Home Infusion - [address] [place] [address] Belen Matt PHARMACIST Social History [...] Matt PHARMACIST - 05/16/2022 10:11 AM CDT [facility] Specialty & Home Infusion Patient Name: Edgardo [...] orders: No labs needed Nursing Provided by [facility] and Infusion Therapy Specific Entyvio (vedolizumab) The most common infusion reactions of Entyvio include: ??? Common cold ??? Headache ??? Joint pain ??? Nausea ??? Fever ??? Infections of the nose and throat ??? Tiredness ??? Cough ??? Bronchitis ??? Flu ??? Back pain ??? Rash ??? Itching ??? Sinus infection ??? Throat pain ??? Pain in extremities Note: MRI SUPERVISOR to observe patient during infusion and monitor [...] delivered package? Delivery Instructions: RN Irina to pickup driver Entyvio + supplies from pharmacy 05/16/22 Note: General ??? Information for this assessment provided by [facility] ??? HIPAA contact identified: Yes ??? Note: ?Welcome Packet?? been provided to the patient Yes ??? Note: Provided with initial delivery / via [facility] Additional Notes ??? Pharmacy communicated/coordinated with MD fine arts instructor? Yes ??? Follow up notes for next [...] [facility] IBD and Gastro[facility]ology [facility] [place] [address] [facility] [address] [place] [address] Kitty Doevr ANP [address] [facility] [address] [place] [address] documented as of this encounter Visit Diagnoses Not on filedocumented in this encounter Care Teams Filter Press Pumper Relationship Specialty Start Date End Date Jasiel Freeman MD [address] [place] [phone] PCP - General Family Practice 08/15/17 documented as of this encounter
--- OUTSIDE RECORDS SUMMARY | 2024-10-24 06:36 | XMS_ITS | Encounter Summary ---
Author Organization [facility] Address [address] [place] [address] Care Team Providers Care Hedis Coordinator Name Role Phone Jasiel Freeman MD Primary Care Provider Reason for Visit * Reason Onset Date Comments FMLA 07/06/2021 Encounter Details Date Type Department Care Team (Late st Contact Info) Description 07/06/2021 Telephone [facility]3] Gastroenterology [facility] [address] [facility] [address] [place] [address] Annette Whitney MD [address] [facility] [address] DIV [place] [phone] [facility] Social History Tobacco Use Types Packs/Day Years [...] [facility] IBD and Gastroenterology [facility] [place] [address] [place] [address] Kitty Dover, MIRTA [address] [place] [address] documented as of this encounter Visit Diagnoses Not on filedocumented in this encounter Care Teams Hedis Coordinator Relationship Specialty Start Date End Date Jasiel Freeman MD [address] [place] [phone] PCP - General Family Practice 08/15/17 documented as of this encounter
--- OUTSIDE RECORDS SUMMARY | 2024-10-24 06:36 | XMS_ITS | Encounter Summary ---
Author Organization [facility] Address [address] [place] [address] Care Team Providers Care Tow Motor Mechanic Name Role Phone Jasiel Freeman MD Primary Care Provider [phone] Reason for Visit * Reason Comments Medication Refill Encounter Details Date Type Department Care Team (Late st Contact Info) Description 08/07/2021 Refill [facility] Gastroenterology [facility] [address] [facility] [address] [place] [address] Annette Whitney MD [address] [facility] [address] [place] [address] Social History Tobacco Use Types Packs/Day Years [...] refill of (medication name) Dicyclomine Pharmacy Attached [facility] INF[facility]ION THERAPY [id number] - [place], [place] - [address] [place] [address]. Allergies Allergen Reactions ??? Infliximab Rash Other reaction(s): Sneezing flushed face Please review, sign and send. documented in this encounter Plan of Treatment Upcoming Encounters Date Type Department Care Team (Late st Contact Info) Description 02/13/2025 10:30 AM CDT Office Visit [facility] IBD and Gastroenterology Center [place] [address] [facility] [address] [place] [address] Kitty Dover, MIRTA [address] [place] [place] [phone] documented as of this encounter Visit Diagnoses Not on filedocumented in this encounter Care Teams Tow Motor Mechanic Relationship Specialty Start Date End Date Jasiel Freeman MD [address] [place] [phone] PCP - General Family Practice 08/15/17 documented as of this encounter
--- OUTSIDE RECORDS SUMMARY | 2024-10-24 06:36 | XMS_ITS | Encounter Summary ---
Author Organization [facility] Address [address] [place] [address] Care Team Providers Care Raw Hide Trimmer Name Role Phone Jasiel Freeman MD Primary Care Provider Reason for Visit * Reason Onset Date Comments Home Visit 04/12/2022 Encounter Details Date Type Department Care Team (Late st Contact Info) Description 04/12/2022 Patient Outreach [facility] Specialty and Home Infusion - [address] [place] [address] Irina Wyatt, RN Home Visit [...] from the original note were not included. [facility] Specialty and Home Infusion Pharmacy Home Infusion NURSING follow up Leonidas Eklins 1970 [address] [facility] [address] Provider - Irina Wyatt RN 04/12/2022 Visit [...] yes Pt informed on importance of notifying [facility] immediately if any [...] reactions. Patient knows how to reorder medications. [facility] Specialty and Home Infusion Pharmacy [...] [place] [address] [place] [address] Kitty Dover ANP [address] [place] [address] documented as of this encounter Visit Diagnoses Not on filedocumented in this encounter Care Teams Raw Hide Trimmer Relationship Specialty Start Date End Date Jasiel Freeman MD [address] [place] [address] PCP - General Family Practice 08/15/17 documented as of this encounter
--- OUTSIDE RECORDS SUMMARY | 2024-10-24 06:36 | XMS_ITS | Encounter Summary ---
Author Organization [facility] Address [address] [place] [address] Care Team Providers Care Senior Environmental Technician Name Role Phone Jasiel Freeman MD Primary Care Provider Reason for Referral * Home Infusion (Routine) - Closed Specialty Diagnoses / Procedures Referred By Contac t Referred To Contact [facility] Diagnoses Ulcerative pancolitis without complication Annette Whitney MD [address] [facility] [place] [address] Referral ID Status Reason Start Date Expiration Date Visits Requested Visits Authorized [id number] Closed Performing Department to Schedule 08/08/2022 08/08/2023 1 1 Scheduling Instructions To complete referral use the comments field above. Performing department to schedule. * Outpatient Services (Routine) - Closed Specialty Diagnoses / Procedures Referred By Contalka t Referred To Contact Hematology and Oncology Diagnoses Ulcerative pancolitis without complication Procedures INFUSION THERAPY Annette Torres MD 1 [facility] [place] [address] [facility] [address] [place] [address] Referral ID Status Reason Start Date Expiration Date Visits Re quested Visits Authorized [id number] Closed 08/08/2022 09/08/2023 1 1 Encounter Details Date Type Department Care Team ([facility] Contact Info) Description 08/08/2022 Orders Only [facility] IBD and Gastroenterology Center [address] [place] [address] Annette Whitney MD 1 [facility] [address] [place] [address] Ulcerative pancolitis without complication (Primary [...] [facility] [address] [place] [address] Kitty Dover, MIRTA [address] [place] [address] Scheduled Referrals Name Type Priority Associated Diagnoses Orde r Schedule AMB REFERRAL TO HOME INFUSION Outpatient Referral Routine Ulcerative pancolitis without complication Ordered: 08/08/2022 documented as of this encounter Visit Diagnoses Diagnosis Ulcerative pancolitis without complication- Primary documented in this encounter Care Teams Senior Environmental Technician Relationship Specialty Start Date End Date Jasiel Freeman MD [address] [place] [address] PCP - General Family Practice 08/15/17 documented as of this encounter
--- OUTSIDE RECORDS SUMMARY | 2024-10-24 06:36 | XMS_ITS | Encounter Summary ---
Author Organization [facility] Address [address] [place] [address] Care Team Providers Care Salesperson Furs Name Role Phone Jasiel Freeman MD Primary Care Provider Encounter Details Date Type Department Care Team (Late st Contact Info) Description 03/14/2022 Orders Only [facility] Gastroenterology [facility] [address] [facility] [address] [place] [address] Annette Whitney MD 1 [facility] [place] [address] Ulcerative pancolitis without complication Social History Tobacco [...] 02/13/2025 10:30 AM CDT Office Visit [facility] IBD and Gastroenterology Center [place] [address] [place] [address] Kitty Dover, MIRTA [address] [place] [address] documented as of this encounter Visit Diagnoses Diagnosis Ulcerative pancolitis without complication documented in this encounter Care Teams Salesperson Furs Relationship Specialty Start Date End Date Jasiel Freeman MD [address] [place] [phone] PCP - General Family Practice 08/15/17 documented as of this encounter
--- OUTSIDE RECORDS SUMMARY | 2024-10-24 06:36 | XMS_ITS | Encounter Summary ---
Author Organization [facility] Address [address] [place] [address] Care Team Providers Care It Trainer Name Role Phone Jasiel Freeman MD Primary Care Provider Reason for Referral * Eval and Treat (Routine) - Closed Specialty Diagnoses / Procedures Referred By Contalka t Referred To Contact Gastroenterology Diagnoses Ulcerative pancolitis without complication Kitty Dover ANP [address] [address] Referral ID Status Reason Start Date Expiration Date Visits Re quested Visits Authorized [id number] Closed 07/21/2022 07/21/2023 1 1 Reason for Visit * Reason Comments Follow Up UC Encounter Details Date Type Department Care Team (Latest Contact Info) Description 07/21/2022 10:30 AM CDT Office Visit [facility] [address] [address] [address] [place] [address] Kitty Dover ANP [address] [facility] [address] [place] [address] Ulcerative pancolitis without complication (Primary [...] Dover ANP - 07/21/2022 10:28 AM CDT [facility] JOANNE Mohan Chief Complaint Patient presents with Follow Up UC Edgardo Elkins is a 51 y.o. male with hx of UC s/p [facility]. 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 He was last seen in clinic by SHAGGY Rihcards, 07/2021. The thought process now is chronic [...] 2001 HX HIP REPLACEMENT, TOTAL Left 10/08/2017 UT COLONOSCOPY FLX DX W/COLLJ SPEC WHEN PFRMD 12/08/2009 COLONOSCOPY performed by LOUISE SOTELO at [facility] UT COLONOSCOPY FLX DX W/COLLJ SPEC WHEN PFRMD 06/09/2014 COLONOSCOPY performed by Lane Ryan MD at [facility] UT DILATION RECTAL STRICTURE W ANEST 06/12/2012 RECTAL STRICTURE DILATATION performed by Lane Ryan MD at [facility] UT ENDOSCOPY UPPER SMALL INTESTINE 06/12/2012 SMALL BOWEL ENTEROSCOPY performed by Lane Ryan MD at [facility] UT ENDOSCOPY UPPER SMALL INTESTINE N/A 08/24/2017 SMALL BOWEL ENTEROSCOPY performed by Lane Ryan MD at [facility] UT ENDOSCOPY UPPER SMALL INTESTINE W/BIOPSY 02/28/2012 BOWEL SMALL BIOPSY ENDOSCOPIC performed by Lane Ryan MD at [facility] GI [facility] UT ESOPHAGOGASTRODUODENOSCOPY TRANSORAL DIAGNOSTIC 02/28/2012 ESOPHAGOGASTRODUODENOSCOPY performed by Lane Ryan MD at [facility] UT NDSC EVAL INTSTINAL POUCH DX W/COLLJ SPEC SPX 02/16/2012 POUCHOSCOPY performed by Louise Sotelo MD at [facility] GI [facility] UT SIGMOIDOSCOPY FLX DX W/COLLJ SPEC BR/WA IF PFRMD 02/16/2012 SIGMOIDOSCOPY FLEXIBLE performed by Louise Sotelo MD at [facility] UT SIGMOIDOSCOPY FLX DX W/COLLJ SPEC BR/WA IF PFRMD N/A 06/12/2020 CHECKOUT SIGMOIDOSCOPY FLEXIBLE performed by Annette Whitney MD at [facility] Family History Problem Relation Name Age of Onset Heart Disease Father Hypertension Mother Healthy Sister Healthy Brother Colon Cancer Neg Hx Social History Socioeconomic History Marital status: Spouse name: Not on file Number of children: Not on file Years of education: Not on file Highest education level: Not on file Occupational History Employer: [employer] Employer: [employer] Tobacco Use Smoking status: Former Packs/day: 0.50 [...] prior to the end of the year. [facility] paperwork updated today. Vitamin B12 deficiency [...] if not covered. Patient can go to [employer] to download a SAVINGS Card to pay less than $40 for the prep. Update vaccines including [id number] and shingrix. Follow up in 6 months [...] information in the medical record. MIRTA Guido [facility] Inflammatory Bowel Disease CC: [...] by intraveous injection see administration instructions. Home DEVICE PROCESSING ENGINEER to administer over 30 minutes every 8 weeks. (Patient taking differently: Inject 300 mg by intravenous injection see administration instructions. Home DEVICE PROCESSING ENGINEER to administer 300 mg via IV over [...] [facility] Following your visit, you may receive a survey via email or Tizaro. Kitty encourages you to respond to this [...] this is the preferred office to contact. [facility] [address] [place] [address] Other important numbers to add to our contact info: After hours physician exchange: [phone] Champion: To schedule CT or MRI: Call [phone] To schedule EGD/Colon/Flex [phone] Drs[address] Nair/Kiki: To schedule CT or MRI: Call [phone] To schedule an EGD/Colon/Flex Sig: Call [phone] IMPORTANT: The following information and instructions are from your visit today: JOANNE Mohan documented in this encounter Plan of Treatment Upcoming Encounters Date Type Department Care Team (Late st Contact Info) Description 02/13/2025 10:30 AM CDT Office Visit [facility] [place] [address] [place] [address] Kitty Dover, MIRTA [address] [place] [address] Scheduled Referrals Name Type Priority [...] * CALPROTECTIN, FECAL (08/08/2022 1:14 PM CDT) [facility] CALPROTECTIN, FECAL 98 mcg/g [facility], Comment: ?Reference Range: ?<50 ? Normal ?50-120 ??Borderline ?>120 ?Elevated ?? LIQUID STOOL. Calprotectin in Crohn's disease and ulcerative colitis can be five to several thousand times above the reference population (50 mcg/g or less). Levels are usually 50 mcg/g or less in healthy patients and with irritable bowel syndrome. Repeat testing in 4-6 weeks is suggested for borderline values. Test Performed at: [email or web address], [address] [place], [place] ??[address] Kim Cancino MD,PhD,KATHRYN Stool STOOL SPECIMEN / Unknown 08/08/2022 1:14 PM CDT 08/08/2022 1:14 PM CDT Kitty KIRBY BODY FLUIDS AND STOOLS [facility] [phone] [email or web address], [address] [place] [address] * VEDOLIZUMAB LEVEL W/ABS (08/08/2022 1:11 PM CDT) [facility] VEDOLIZUMAB QN, S 16.9 mcg/mL [facility] Clinical [facility] Comment: REFERENCE VALUE Lower limit of quantitation = 2.0 mcg/mL ADDITIONAL INFORMATION This test was developed and its performance characteristics determined by [facility] in a manner consistent with CLIA requirements. This test has not been cleared or approved by the U.S. Food and Drug Administration. VEDOLIZUMAB AB <9.8 <9.8 ng/mL [facility] VEMAB INTERPRETATION [facility] Comment: Absence of detectable uifdsrgl-ld-wfdwqguzyhb. ADDITIONAL INFORMATION This test was developed and its performance characteristics determined by [facility] in a manner consistent with CLIA requirements. This test has not been cleared or approved by the U.S. Food and Drug Administration. Test Performed at: [facility] [address] [place] ??[address] James Oliveira II, MD,PhD 08/08/2022 1:11 PM CDT 08/08/2022 1:[address] [facility] CHEMISTRY ORDER SHAMAR [facility] [phone] [facility] [address] [place] [address] * VITAMIN B12 LEVEL (08/08/2022 1:11 PM CDT) Pathologist [facility] VITAMIN B12 307 200 - 1100 pg/mL [email or web address] Comment: Please Note: Although the reference range for vitamin B12 is 200-1100 pg/mL, it has been reported that between 5 and 10% of patients with values between 200 and 400 pg/mL may experience neuropsychiatric and hematologic abnormalities due to occult B12 deficiency; less than 1% of patients with values above 400 pg/mL will have symptoms. Test Performed at: [facility] ??[address] James Peres D.O., MPH Blood 08/08/2022 1:11 PM CDT 08/08/2022 1:12 PM CDT Kitty Dover ANP CHEMISTRY ORDER SHAMAR [facility] [phone] [address] * VITAMIN D 25 HYDROXY (08/08/2022 1:11 PM CDT) VITAMIN D, 25 [place], TOTAL 48 30 - 100 ng/mL [facility] Comment: Vitamin D Status ? 25-OH Vitamin D: Deficiency: ?<20 ng/mL Insufficiency: ? 20 - 29 ng/mL Optimal: ? > or = 30 ng/mL For 25-OH Vitamin D testing on patients on D2-supplementation and patients for whom quantitation of D2 and D3 fractions is required, the [facility]() 25-OH VIT D, (D2,D3), LC/MS/MS is recommended: order code 28135 (patients >2yrs). See Note 1 Note 1 For additional information, please refer to http://education.LOVEFiLM/faq/ELJ854 (This link is being provided for informational/ educational purposes only.) Test Performed at: [email or web address] ??[address] James Peres D.O., MPH Blood 08/08/2022 1:11 PM CDT 08/08/2022 1:12 PM CDT Kitty Darnellvivian Dover ANP CHEMISTRY ORDER SHAMAR Performing Organization Address [facility]/ZIP Co de Phone Number [facility] [phone] [email or web address] [address] * (ABNORMAL) C-REACTIVE PROTEIN (08/08/2022 1:11 PM CDT) Pathologist [facility] CRP 40.6(H) <8.0 mg/L [facility] Comment: Test Performed at: [facility] [address] [place] [address] ??[phone] James Peres D.O., MPH Blood 08/08/2022 1:11 PM CDT 08/08/2022 1:12 PM CDT Kitty Darnellvivian Dover ANP CHEMISTRY ORDER SHAMAR Performing Organization Address [facility] de Phone Number [facility] [phone] [facility] [address] [place] [address] * (ABNORMAL) COMPREHENSIVE METABOLIC PANEL (08/08/2022 1:11 PM CDT) Pathologist [facility] GLUCOSE 141(H) 65 - 99 mg/dL [facility] [...] [facility] Comment: Test Performed at: [facility] [address] [place] ??[address] James Peres D.O., MPH Blood 08/08/2022 1:11 PM CDT 08/08/2022 1:12 PM CDT Kitty KIRBY CHEMISTRY ORDER SHAMAR [facility] [phone] [facility] [address] [place] [address] * (ABNORMAL) CBC WITH DIFFERENTIAL (08/08/2022 1:11 [...] [facility] Comment: Test Performed at: [facility] ??[address] James Peres D.O., MPH Blood 08/08/2022 1:11 PM CDT 08/08/2022 1:12 PM CDT Kitty KIRBY HEMATOLOGY ORDToño [place] [facility] [phone] [facility] [employer] [address] * HEPATITIS B SURFACE ANTIGEN (08/08/2022 1:11 PM CDT) HEPATITIS B SURFACE AG NON-REACTI VE NON-REACTI VE [facility] Comment: Test Performed at: [facility] ??[address] James Peres D.O., MPH Blood 08/08/2022 1:11 PM CDT 08/08/2022 1:12 PM CDT Kitty Aguero Dover ANP CHEMISTRY ORDER SHAMAR [facility] [phone] [facility] [employer] [place] [address] [place] [address] * QUANTIFERON TB GOLD (08/08/2022 1:11 PM CDT) Pathologist [facility] QUANTIFERON TB GOLD PLUS NEGATIVE NEGATIVE [facility] [...] T-lymphocytes. For additional information, please refer to https://education.RunRev.VGo Communications/faq/SRS476 (This link is being provided for informational/ educational purposes only.) Test Performed at: [facility] [address] [place], [place] ??[address] James Peres D.O., MPH Blood 08/08/2022 1:11 PM CDT 08/08/2022 1:12 PM CDT Kitty More Dover ANP CHEMISTRY ORDER SHAMAR [facility] [phone] [facility] [address] [place] [address] documented in this encounter Visit Diagnoses Diagnosis Ulcerative pancolitis without complication- Primary High risk medication use Encounter for long-term (current) use of other medications Immunodeficiency due to treatment with immunosuppressive medication Unspecified disorder of immune mechanism documented in this encounter Care Teams It Trainer Relationship Specialty Start Date End Date Jasiel Freeman MD [address] [place] [phone] PCP - General Family Practice 08/15/17 documented as of this encounter
--- OUTSIDE RECORDS SUMMARY | 2024-10-24 06:36 | XMS_ITS | Encounter Summary ---
Author Organization [facility] Address [address] [place] [address] Care Team Providers Care Edge Stripper Name Role Phone Jasiel Freeman MD Primary Care Provider [phone] Reason for Visit * Reason Onset Date Comments Home Visit 02/08/2022 Encounter Details Date Type Department Care Team (Late st Contact Info) Description 02/08/2022 Patient Outreach [facility] Specialty and Home Infusion - [address] [place] [address] Irina Wyatt, RN Home Visit [...] included. [facility] Pharm[facility] Home Infusion NURSING follow up Leonidas Elkins 1970 [address] [facility] [address] Provider - Irina Wyatt RN 02/08/22 Visit start 1130 Visit end 1240 Contact numbers provided including after hours numbers [...] notifying [facility] immediately if any unexpected insurance changes occur.yes No problem observed with learning needs - No cultural, bahai, or language barriers to learning Patient and [...] normal mood and affect. Pain: 0 1. [facility]CI assessment and implementation of infusion [...] knows how to reorder medications. [facility] Infusion Pharmacy will dispense [...] Visit [facility] IBD [facility] Gastroenterology [facility] [place] [address] [place] [address] Kitty Dover ANP [address] [place] [address] documented as of this encounter Visit Diagnoses Not on filedocumented in this encounter Care Teams Edge Stripper Relationship Specialty Start Date End Date Jasiel Freeman MD [address] [place] [address] PCP - General Family Practice 08/15/17 documented as of this encounter
--- OUTSIDE RECORDS SUMMARY | 2024-10-24 06:36 | XMS_ITS | Encounter Summary ---
Author Organization [facility] Address [address] [place] [address] Care Team Providers Care Manager Social Media Name Role Phone Jasiel Freeman MD Primary Care Provider [phone] Encounter Details Date Type Department Care Team (Late st Contact Info) Description 07/08/2022 Specialty Pharmacy [facility] Specialty and Home Infusion - [address] [place] [address] Belen Matt PHARMACIST Social History [...] Matt PHARMACIST - 07/08/2022 3:34 PM CDT [facility] Special[facility] Home Infusion Patient Name: [...] orders: No labs needed Nursing Provided by [facility] Special[facility] Home Infusion [facility] Therapy Specific Entyvio (vedolizumab) The most common infusion reactions of Entyvio include: Common cold Headache Joint pain Nausea Fever Infections of the nose and throat Tiredness Cough Bronchitis Flu Back pain Rash Itching Sinus infection Throat pain Pain in extremities Note: HEAD COACH to observe patient during infusion and monitor [...] package? Yes Delivery Instructions: deliver 07/08/22 via tube fitter Note: General Information for this assessment provided by Epic Record HIPAA contact identified: Yes Note: ???Welcome Packet?? been provided to the patient Yes Note: Provided with initial delivery / via [facility] Additional Notes Pharmacy communicated/coordinated with MD wool shearing supervisor? Yes Follow up notes for next encounter? [...] [facility] [place] [address] [place] [address] Kitty Dover ANP [address] [place] [address] documented as of this encounter Visit Diagnoses Not on filedocumented in this encounter Care Teams Manager Social Media Relationship Specialty Start Date End Date Jasiel Freeman MD [address] [place] [phone] PCP - General Family Practice 08/15/17 documented as of this encounter
--- OUTSIDE RECORDS SUMMARY | 2024-10-24 06:36 | XMS_ITS | Encounter Summary ---
Author Organization [facility] Address [address] [place] [address] Care Team Providers Care Kitchen Stewardess Name Role Phone Jasiel Freeman MD Primary Care Provider Encounter Details Date Type Department Care Team (Late st Contact Info) Description 06/10/2022 Specialty Pharmacy [facility] Specialty and Home Infusion - [address] [place] [address] John Avina PHARMACIST Social History [...] Rosalia Gomez - 06/10/2022 10:22 AM CDT [facility] Specialty & Home Infusion Patient [...] orders: No labs needed Nursing Provided by [facility] and Infusion Therapy Specific Entyvio (vedolizumab) The most common infusion reactions of Entyvio include: Common cold Headache Joint pain Nausea Fever Infections of the nose and throat Tiredness Cough Bronchitis Flu Back pain Rash Itching Sinus infection Throat pain Pain in extremities Note: CREATIVE MANAGER to observe patient during infusion and monitor [...] [facility] Additional Notes Pharmacy communicated/coordinated with MD fire safety director? Yes Follow up notes for next encounter? [...] [facility] [place] [address] [facility] [address] [place] [address] Kitty Dover, MIRTA [address] [facility] [address] [place] [address] documented as of this encounter Visit Diagnoses Not on filedocumented in this encounter Care Teams Kitchen Stewardess Relationship Specialty Start Date End Date Jasiel Freeman MD [address] [place] [phone] PCP - General Family Practice 08/15/17 documented as of this encounter
--- OUTSIDE RECORDS SUMMARY | 2024-10-24 06:36 | XMS_ITS | Encounter Summary ---
Author Organization [facility] Address [address] [place] [address] Care Team Providers Care Real Estate Underwriter Name Role Phone Jasiel Freeman MD Primary Care Provider [phone] Reason for Visit * Reason Comments Med Refill Encounter Details Date Type Department Care Team (Late st Contact Info) Description 07/16/2022 Refill [facility] Gastroenterology [facility] [address] [facility] [address] [place] [address] Annette Whitney MD [address] [facility] [address] [place] [address] Social History Tobacco Use Types Packs/Day Years [...] Visit [facility]astro[facility] [place] [address] [place] [address] Kitty Dover ANP [address] [place] [address] documented as of this encounter Visit Diagnoses Not on filedocumented in this encounter Care Teams Real Estate Underwriter Relationship Specialty Start Date End Date Jasiel Freeman MD [address] [place] [phone] PCP - General Family Practice 08/15/17 documented as of this encounter
--- OUTSIDE RECORDS SUMMARY | 2024-10-24 06:37 | XMS_ITS | Encounter Summary ---
Author Organization [facility] Address [address] [place] [address] Care Team Providers Care Cork Floor Installer Name Role Phone Jasiel Freeman MD Primary Care Provider [phone] Encounter Details Date Type Department Care Team (Late st Contact Info) Description 05/14/2021 Specialty Pharmacy [facility] - [address] [place] [address] Thanh Solares, PHARMACIST Social History [...] from the original note were not included. [facility] - [facility] SPECIALTY & INFUSION [facility] [address] [address], [address] [place] [address] PH: [phone] FX: [phone] Specialty Pharmacy Infusion Note Patient Name: Edgardo [...] n/a Patient informed on importance of notifying [facility] immediately if any unexpected insurance changes occur. - n/a Authorization good through: 06/15/2021 Delivery: Delivery date: 05/17/2021 How are we shipping the medication? crew director Is it ok to leave? yes Delivery note: This assessment performed by: Thanh Solares, PHARMACIST [facility] [place] [address] PH: [phone] FX: [phone] Specialty Pharmacy Infusion Note Patient Name: Edgardo [...] n/a Patient informed on importance of notifying [facility] immediately if any unexpected insurance changes occur. - n/a Authorization good through: 06/15/2021 Delivery: Delivery date: 04/16/2021 How are we shipping the medication? crew director Is it ok to leave? yes Delivery note: This assessment performed by: Thanh Solares, PHARMACIST [facility] [address], [address] [address] PH: [phone] FX: [phone] Specialty Pharmacy Infusion Note Patient Name: Edgardo [...] changes Patient informed on importance of notifying [facility] immediately if any unexpected insurance changes occur. - yes Authorization good through: 06/15/2021 Delivery: Delivery date: 02/19/2021 How are we shipping the medication? Medical Corps Officer Is it ok to leave? yes Delivery note: infusion changed to 02/22 This assessment performed by: FADI Silverman SPECIAL[facility] INFUSION [facility] [id number] [place] [address], [address] [address] PH: [phone] FX: [phone] Specialty Pharmacy Infusion Note Patient Name: Edgardo [...] changes Patient informed on importance of notifying [facility] immediately if any unexpected insurance changes occur. - yes Authorization good through: 01/12/2022 Delivery: Delivery date: 01/26/2021 How are we shipping the medication? crew director Is it ok to leave? yes Delivery note: deliver before 12pm This assessment performed by: [facility] Home Infusion Order Edgardo Elkins 50 y.o. / male Patient's address (May not be service address): [address] [address] Order Date: 10/20/2020 Order(s): Continue Entyvio 300mg IV every 4 weeks Per: Caren Whitney MD Generic substitution permitted for medications unless otherwise specified Order taken by FADI Silverman [facility] Home Infusion [facility] [address] [place] [address] Edgardo Palomino Thyer 50 y.o. / male Patient's address on file: [address] [address] Home Phone Work Phone Home Infusion Order [...] (through 05/26/19) Per: Caren / KESHA Whitney [facility] Gastroenterology [address], [address] [facility] [address] Generic substitution permitted Detailed Home [...] RN will take any ordered labs to [facility] when possible. If labs are not taken to a [facility] lab, it is the responsibility of nursing to make sure labs are faxed to the pharmacy at [phone] Whitney. Catheter Care Catheter type: PIV placed by FINANCIAL RISK MANAGER prior to each infusion Flush IV [...] lab draws/line complications. ?? Flushes provided by [facility] Infusion pharmacy are for [...] Elkins (50 y.o. male) is active with [facility]ty [facility] Infusion services receiving Entyvio every 8 weeks at home for ulcerative colitis. ?? Edgardo is due for his next infusion this week. Pharmacist contacted FINANCIAL RISK MANAGER to coordinate delivery. RN will berry picker today. Patient received last infusion without issue. No questions or concerns at this time. Patient has appointment with Dr. Nair on 01/29. 05/13/19 - Spoke with the patient who stated he is doing well. He has had no changes in his medication therapy or no clinical issues. Will ship medications and supplies to the patient. Thanh Solares MBA, [facility] 08/08/19 - Patient to receive infusion [...] [facility]fusion Care Team [facility] / [phone] Nursing Agency: [facility] Physician(s): Dr. Whitney Additional Relevant Data Insurance Information: Payor: RX [facility] / Plan: RX PCS ADVANCE PARADIGM / Product Type: RX [employer] / IV access PIV placed by FINANCIAL RISK MANAGER prior to each infusion Ht Readings [...] level: Not on file Occupational History Employer: [employer] Employer: [employer] Tobacco Use ??? Smoking [...] Gatherings with Friends and Family: ??? Attends Ep[employer] Services: ??? Active Member of Clubs or [...] by intraveous injection see administration instructions. Home FINANCIAL RISK MANAGER to administer over 30 minutes every [...] Provided to Patient ?? Pharmacist offer to nutrition counselor ?? RN instruction ?? Printed teaching sheets ?? Drug information paperwork - [facility] patient leaflet Thanh Solares PHARMACIST [facility] Infusion - [place] [id number] [place] [address] , [address] [place] [address] documented in this encounter Plan of Treatment Upcoming Encounters Date Type Department Care Team (Late st Contact Info) Description 02/13/2025 10:30 AM CDT Office Visit [facility]astro[facility] [place] [address] [facility] [address] [place] [address] Kitty Dover ANP [address] [facility] [address] [place] [address] documented as of this encounter Visit Diagnoses Not on filedocumented in this encounter Care Teams Cork Floor Installer Relationship Specialty Start Date End Date Jasiel Freeman MD [address] [place] [phone] PCP - General Family Practice 08/15/17 documented as of this encounter
--- OUTSIDE RECORDS SUMMARY | 2024-10-24 06:37 | XMS_ITS | Encounter Summary ---
Author Organization [facility] Address [address] [place] [address] Care Team Providers Care Toolroom Attendant Name Role Phone Jasiel Freeman MD Primary Care Provider Reason for Visit * Reason Onset Date Comments Home Visit 06/30/2020 Encounter Details Date Type Department Care Team (Late st Contact Info) Description 06/30/2020 Patient Outreach [facility] Specialty [facility] Home Infusion - [address] [place] [address] Irina Wyatt, RN Home Visit [...] [facility] Pharmacy [address] [place] [address] Home Infusion NURSING follow up Leonidas Elkins 1970 [address] [facility] [address] 06/30/2020 Provider - Irina Wyatt RN Driving [...] by intraveous injection see administration instructions. Home DESIGN ASSEMBLER to administer over 30 minutes every 8 weeks. 300 mg 3 ??? TESTOSTERONE, BULK, MISC 1 mL by Misc.(Non-Drug; Combo Route) route. No current facility-administered medications on file prior to visit. No problem observed with learning needs - No cultural, baptist, or language barriers to learning Patient and [...] 06/12/20 18 05/20/20 18 05/05/20 16 1. [facility] assessment [...] Visit [facility]astro[facility] [place] [address] [facility] [address] [place] [phone] Kitty Dover ANP [address] [facility] [address] [place] [address] documented as of this encounter Visit Diagnoses Not on filedocumented in this encounter Care Teams Toolroom Attendant Relationship Specialty Start Date End Date Jasiel Freeman MD [address] [place] [phone] PCP - General Family Practice 08/15/17 documented as of this encounter
--- OUTSIDE RECORDS SUMMARY | 2024-10-24 06:37 | XMS_ITS | Encounter Summary ---
Author Organization [facility] Address [address] Laurenn: [place] [address] Care Team Providers Care Psychiatric Np Name Role Phone Jasiel Freeman MD Primary [...] Center [place] [address] [place] [address] Kitty Dover, ANP [address] [facility] [address] [place] [address] documented as of this encounter Visit Diagnoses Not on filedocumented in this encounter Care Teams Psychiatric Np Relationship Specialty Start Date End Date Jasiel Freeman MD [address] [place] [phone] PCP - General Family Practice 08/15/17 documented as of this encounter
--- OUTSIDE RECORDS SUMMARY | 2024-10-24 06:37 | XMS_ITS | Encounter Summary ---
Author Organization [facility] Address [address] [place] [address] Care Team Providers Care Marketing Assistant Manager Name Role Phone Jasiel Freeman MD Primary Care Provider Encounter Details Date Type Department Care Team (Late st Contact Info) Description 01/26/2021 Specialty Pharmacy [facility] Specialty and Home Infusion - [address] [place] [address] Thanh Solares PHARMACIST Social History [...] 10:30 AM CDT Office Visit [facility] IBD and Gastroenterology [facility] [place] [address] [place] [address] Kitty Dover, MIRTA [address] [facility] [address] [place] [address] documented as of this encounter Visit Diagnoses Not on filedocumented in this encounter Care Teams Marketing Assistant Manager Relationship Specialty Start Date End Date Jasiel Freeman MD [address] [place] [address] PCP - General Family Practice 08/15/17 documented as of this encounter
--- OUTSIDE RECORDS SUMMARY | 2024-10-24 06:37 | XMS_ITS | Encounter Summary ---
Author Organization [employer] [facility] Address [address] [place] [address] Care Team Providers Care Audio Visual Project Manager Name Role Phone Jasiel Freeman MD Primary Care Provider Reason for Visit * Auth/Cert Specialty Diagnoses / Procedures Referred By Lambert pizarro Referred To Contact Perioperative Diagnoses Ulcerative pancolitis with other complication Procedures NJ SIGMOIDOSCOPY FLX DX W/COLLJ SPEC BR/WA IF PFRMD CHECKOUT SIGMOIDOSCOPY FLEXIBLE [facility] [address] [place] [address] Referral ID Status Reason Start Date Expiration Date Visits Re quested Visits Authorized [id number] 1 1 Encounter Details Date Type Department Care Team (Late st Contact Info) Description 06/12/2020 7:40 AM CDT - 06/12/2020 8:20 AM CDT Surgery [facility] [place] [facility] [address] [place] [address] Annette Whitney MD [address] [facility] [address] DIV [place] [address] CHECKOUT SIGMOIDOSCOPY FLEXIBLE Surgery Details Date/Time Status [...] weeks, please call the office. Office Phone: [facility] [phone] [place] [phone] Exchange: documented in this encounter Medications at [...] by intraveous injection see administration instructions. Home PAYROLL CLERK to administer over 30 minutes every [...] by intraveous injection see administration instructions. Home PAYROLL CLERK to administer over 30 minutes every [...] 06/12/2020 7:59 AM CDTAssociated Order(s): POUCHOSCOPY REPORT [facility] Endoscopy Patient Name: Edgardo [...] of Addenda: [address]; [place] [address] documented in this encounter OR Notes * Zarina-OP - Ruth Swanson RN - 06/05/2020 6:04 PM CDT ?Routine Pre-Anesthesia Protocol for GI Lab Procedures [facility] Approved by: [facility] - Medical Executive Committee Approval Date: 04/15/2020 ORDERS ARE ENTERED ???PER PROTOCOL?? Enter the protocol in the patient???s electronic health record using [employer] .anestprotocolgilab NURSING ORDERS: Monitoring: o Obtain and [...] appropriate, may confirm POC with: Nursing Only [id number] (this lab can be obtained at no [...] injectable antihyperglycemic agents and glucose is less [id number] mg/dl o NPO patients who have NOT [...] MEDICATION ORDERS - entered by the Pharmacist foreign legal consultant RESCUE ORDERS - entered by the Pharmacist or the web production designer Orders Patient has IV access and UNCONCIOUS, [...] Verbalizes understanding. 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 All of the patients questions answered. documented in this encounter Plan of Treatment Upcoming Encounters Date Type Department Care Team (Late st Contact Info) Description 02/13/2025 10:30 AM CDT Office Visit [facility] IBD [facility] Gastroenterology [facility] [place] [address] [place] [address] Kitty Dover, ANP [address] [place] [address] Scheduled Referrals Name Type Priority Associated Diagnoses [...] AM CDT Ulcerative pancolitis with other complication NJ SIGMOIDOSCOPY FLX DX W/COLLJ SPEC BR/WA IF PFRMD 06/12/2020 7:35 AM CDT Ulcerative pancolitis with other complication Case Notes with anesthesia documented in this encounter Results * QUANTIFERON TB GOLD (06/12/2020 8:27 AM CDT) QUANTIFERON TB GOLD PLUS Negative Negative 06/15/2020 8:01 PM CDT [facility] Comment: No interferon-gamma response to M. tuberculosis [...] NIL 0.00 IU/mL 06/15/2020 8:01 PM CDT [facility] TB2 AG - NIL 0.00 IU/mL 06/15/2020 8:01 PM CDT [facility] MITOGEN-NIL 6.19 IU/mL 06/15/2020 8:01 PM CDT [facility] NIL 0.01 IU/mL 06/15/2020 8:01 PM CDT [facility] Comment: Test Performed by: [facility] [address] [place] [address] Police Manager: James Oliveira M.D. Ph.D.; CLIA# [id number] Blood Venipuncture / Unknown 06/12/2020 8:27 AM CDT 06/12/2020 8:32 AM CDT Annette Whitney MD CHEMISTRY SHELBY PRITCHETT [facility] * POUCHOSCOPY REPORT (06/12/2020 7:59 AM CDT) Narrative Procedure Note Annette Whitney MD - 06/12/2020 7:59 AM CDT [facility] Endoscopy Patient Name: Edgardo [...] of Addenda: [address]; [place] [address] Annette Whitney MD GI PROCEDURE O RDERABLES * PATHOLOGY (06/12/2020 7:53 AM CDT) CASE REPORT Surgical Pathology Report ? Case: [id number] ? Authorizing Provider: ??Annette Whitney, ?? Collected: ? 06/12/2020 07:53 AM ? MD ? Ordering Location: ? [facility] [place] ??Received: ?06/12/2020 09:18 AM ? Pathologist: ? Shalonda Melendez MD ? Specimens: ?? A) - Other, specify, bx pre-pouch ileum ? B) - Other, specify, bx pouch ? C) - Other, specify, bx rectal cuff ? 06/15/2020 11:22 AM [facility] [employer] [facility] FINAL DIAGNOSIS Small intestine, pre-pouch ileum, endoscopic biopsy: - Active ileitis, patchy and very mild. Small intestine, pouch, endoscopic biopsy: - Small intestinal mucosa with reactive changes and patchy and mild active enteritis. Intestine, rectal cuff, endoscopic biopsy: - Small intestinal mucosa/rectal mucosa with patchy and mild active enteritis. 06/15/2020 11:22 AM [facility] [employer] [facility] ATIVE PROCEDURE 1: SIGMOIDOSCOPY FLEXIBLE 1: with anesthesia 06/15/2020 11:22 AM [facility] CLINICAL INFORMATION R/o Pouchitis Ulcerative pancolitis with other complication [K51.018] 06/15/2020 11:22 AM [facility] GROSS DESCRIPTION The specimens are received [...] It is entirely submitted in cassette C1. [facility] 06/15/2020 11:22 AM [facility] MICROSCOPIC DESCRIPTION The slides are labeled [id number] and Edgardo Elkins. Sections of pre-pouch ileum [...] relatively unremarkable in appearance. 06/15/2020 11:22 AM [facility] COMMENT Special stain and/or immunohistochemical results are interpreted with controls that demonstrate appropriate staining reactions. Note on use of immunocytochemistry reagents: This test was developed and its performance characteristics determined by [facility], Department of Laboratory Medicine. [...] part or completely in the following laboratories: [facility], CLIA #[id number] [address] [place] [address] [facility], CLIA #[id number] [address] [place] [address] [facility], CLIA #[id number] [address] [place] [address]. 06/15/2020 11:22 AM CDT [facility] Tissue (Other, specify) Collection / Unknown 06/12/2020 7:53 AM CDT 06/12/2020 9:18 AM CDT Comment:R/o Pouchitis Tissue specimen (specimen) (Other, specify) Collection / Unknown 06/12/2020 7:54 AM CDT 06/12/2020 9:18 AM CDT Comment:R/o Pouchitis Tissue specimen (specimen) (Other, specify) 06/12/2020 7:55 AM CDT 06/12/2020 9:18 AM CDT Comment:R/o Pouchitis Annette Whitney MD PATHOLOGY/CYTO LOGY ORDERABLES [facility] CLIA# [id number] [address] [place], [place] [address] [address] * 2019 NOVEL CORONAVIRUS (COVID-19) PCR DETECTION (06/06/2020 10:00 AM CDT) COVID-19 PCR NOT DETECTED NOT DETECTED 06/08/2020 1:21 AM CDT [facility] Comment: A Not Detected (negative) test result [...] providers and patients using the following websites: https://www.[employer]armAthene/home/Covid-19/HCP/NAAT/fact-sheet2 https://www.[employer]/home/Covid-19/Patients/NAAT/ fact-sheet2 This test has been authorized by the FDA under an Emergency Use Authorization (EUA) for use by authorized laboratories. Due to the current public health emergency, [facility] is receiving a high volume of samples [...] about COVID-19 can be found at the [employer] website: www.[employer]ok[employer].PharmAthene/Covid19. Upper Respiratory ENTIRE NASOPHARYNX / Unknown Collection / Unknown 06/06/2020 10:00 AM CDT 06/06/2020 3:24 PM CDT Narrative [facility] - 06/08/2020 1:21 AM CDT Performing Organization Information: ?Site ID: [id number] ?Name: [facility] ?Address: [address] [address] ?Director: James Peres D.O., MPH Annette Christina Whitney MD MICROBIOLOGY - GENERAL ORDERABLES [facility] [phone] documented in this encounter Visit Diagnoses Diagnosis [...] CRNA) documented in this encounter Care Teams Audio Visual Project Manager Relationship Specialty Start Date End Date Jasiel Freeman MD [address] [place] [phone] PCP - General Family Practice 08/15/17 documented as of this encounter
--- OUTSIDE RECORDS SUMMARY | 2024-10-24 06:37 | XMS_ITS | Encounter Summary ---
Author Organization [facility] Address [address] [place] [address] Care Team Providers Care Immigration Lawyer Name Role Phone Jasiel Freeman MD Primary Care Provider Encounter Details Date Type Department Care Team (Late st Contact Info) Description 04/14/2021 Specialty Pharmacy [facility] Specialty and Home Infusion - [address] [place] [address] Thanh Solares, PHARMACIST Social History [...] the original note were not included. [facility] Specialty [facility] Infusion - [facility] SPECIALTY & INFUSION [facility] [address], [address] [place] [address] PH: [phone] FX: [phone] Specialty Pharmacy Infusion Note Patient Name: Edgardo [...] n/a Patient informed on importance of notifying [facility] immediately if any unexpected insurance changes occur. - n/a Authorization good through: 06/15/2021 Delivery: Delivery date: 04/16/2021 How are we shipping the medication? ends breakage clerk Is it ok to leave? yes Delivery note: This assessment performed by: FADI Silverman [facility] SPECIALTY & INFUSION [place] [id number] PH: [phone] FX: [phone] Specialty Pharmacy Infusion Note Patient Name: Edgardo [...] changes Patient informed on importance of notifying [facility] Specialty and Infusion immediately if any unexpected insurance changes occur. - yes Authorization good through: 06/15/2021 Delivery: Delivery date: 02/19/2021 How are we shipping the medication? Charger Operator Helper Is it ok to leave? yes Delivery note: infusion changed to 02/22 This assessment performed by: Thanh Solares PHARMACIST [facility] SPECIALTY [facility] INFUSION [address] [place] [address] PH: [phone] FX: [phone] Specialty Pharmacy Infusion Note Patient Name: Edgardo [...] changes Patient informed on importance of notifying [facility] Specialty and Infusion immediately if any unexpected insurance changes occur. - yes Authorization good through: 01/12/2022 Delivery: Delivery date: 01/26/2021 How are we shipping the medication? ends breakage clerk Is it ok to leave? yes Delivery note: deliver before 12pm This assessment performed by: FADI Silverman [facility] Specialty & Home Infusion [facility] Home Infusion Order Edgardo Elkins 50 y.o. / male Patient's address (May not be service address): [address] [place] [id number] Order Date: 10/20/2020 Order(s): Continue Entyvio 300mg IV every 4 weeks Per: Caren Whitney MD Generic substitution permitted for medications unless otherwise specified Order taken by FADI Silverman [facility] Specialty [facility] Home Infusion [address] [address] Edgardo Elkins 50 y.o. / male Patient's address on file: [address] [address] Home Phone Work Phone Home Infusion Order [...] (through 05/26/19) Per: Caren / KESHA Whitney [facility] Gastroenterology [address], [address] [place] [address] Generic substitution permitted Detailed Home Infusion Orders [...] RN will take any ordered labs to [facility] when possible. If labs are not taken to a [facility] lab, it is the responsibility of nursing to make sure labs are faxed to the pharmacy at [phone] Whitney. Catheter Care Catheter type: PIV placed by TIRE SPOTTER prior to each infusion Flush IV catheter [...] lab draws/line complications. ?? Flushes provided by [facility] Specialty and Infusion pharmacy are [...] Elkins (50 y.o. male) is active with [facility] Specialty and Infusion services receiving Entyvio every 8 weeks at home for ulcerative colitis. ?? Edgardo is due for his next infusion this week. Pharmacist contacted TIRE SPOTTER to coordinate delivery. RN will fruit picker machine operator today. Patient received last infusion without issue. No questions or concerns at this time. Patient has appointment with Dr. Nair on 01/29. 05/13/19 - Spoke with the patient who stated he is doing well. He has had no changes in his medication therapy or no clinical issues. Will ship medications and supplies to the patient. Thanh Solares MBA, [facility] 08/08/19 - Patient to receive infusion of Entyvio today after an insurance issue. Will send medications and supplies for the infusion. RDS 08/19/19 - Confirmed with the nurse adult protective caseworker that the patient was scheduled to receive [...] Whitney Home Infusion Care Team IV Pharmacy: [facility] / [phone] Nursing Agency: [facility] Physician(s): Dr. Whitney Additional Relevant Data Insurance Information: Payor: RX [employer] / Plan: RX PCS ADVANCE PARADIGM / Product Type: RX Caremark / IV access PIV placed by TIRE SPOTTER prior to each infusion Ht Readings from [...] level: Not on file Occupational History Employer: [employer] Employer: [employer] Tobacco Use ??? Smoking [...] Gatherings with Friends and Family: ??? Attends Gnosticist Services: ??? Active Member of Clubs or [...] by intraveous injection see administration instructions. Home TIRE SPOTTER to administer over 30 minutes every 8 [...] Provided to Patient ?? Pharmacist offer to counseling center director ?? RN instruction ?? Printed teaching sheets ?? Drug information paperwork - EH patient leaflet FADI Silverman [facility] Specialty & Infusion [facility] [address], [address] [place] [address] documented in this encounter Plan of Treatment Upcoming Encounters Date Type Department Care Team (Late st Contact Info) Description 02/13/2025 10:30 AM CDT Office Visit [facility] IBD and Gastroenterology Center [place] [address] [place] [address] Kitty Dover ANP [address] [place] [address] documented as of this encounter Visit Diagnoses Not on filedocumented in this encounter Care Teams Immigration Lawyer Relationship Specialty Start Date End Date Jasiel Freeman MD [address] [place] [phone] PCP - General Family Practice 08/15/17 documented as of this encounter
--- OUTSIDE RECORDS SUMMARY | 2024-10-24 06:37 | XMS_ITS | Encounter Summary ---
Author Organization [facility] Address [address] [place] [address] Care Team Providers Care Exterior Designer Name Role Phone Jasiel Freeman MD Primary Care Provider Reason for Visit * Reason Onset Date Comments Home Visit 08/20/2020 Encounter Details Date Type Department Care Team (Late st Contact Info) Description 08/20/2020 Patient Outreach [facility] Specialty and Home Infusion - [address] [place] [address] Irina Wyatt, RN Home Visit [...] Sign Reading Time Taken Comments Blood Pressure 112/82 08/20/2020 4:00 PM CDT Pulse 98 08/20/2020 4:00 PM CDT Temperature 37.2 ??C (99 ??F) 08/20/2020 4:00 PM CDT Respiratory Rate 16 08/20/2020 4:00 PM CDT Oxygen Saturation 94% 08/20/2020 4:00 PM CDT Inhaled Oxygen Concentration - - Weight - - Height - - Body Mass Index - - documented in this encounter Miscellaneous Notes * Telephone Encounter - Irina Wyatt RN - 08/21/2020 10:32 AM CDT Images from the original note were not included. [facility] and Home Infusion Pharmacy [address] [place] [address] Home Infusion NURSING follow up Leonidas Elkins 1970 [address] [facility] [address] Provider - Irina Wyatt RN 08/20/20 Visit start 1505 Visit end 1627 Contact numbers provided including after hours numbers [...] place, and time. appears well-developed and well-nourished. head: Normocephalic and atraumatic. Eyes: Pupils are equal, round, and reactive to light. Neck: Normal range of motion. Cardiovascular: Normal rate and regular rhythm. Pulmonary/Chest: Effort normal Abdominal: Soft. Normal appearance and bowel sounds are normal. There is no tenderness. GI/: clear yellow urine, diarrhea, no concerns Musculoskeletal: Normal range of motion. Neurological: alert and oriented to person, place, and time. Skin: Skin is warm and dry. Psychiatric: normal mood and affect. 1. senior care assessment and implementation of infusion therapy. Teaching [...] reactions. Patient knows how to reorder medications. [facility] Specialty and Home Infusion Pharmacy will [...] Description 02/13/2025 10:30 AM CDT Office Visit [facility] IBD and Gastroenterology Center [place] [address] [place] [address] Kitty Dover ANP [address] [place] [address] documented as of this encounter Visit Diagnoses Not on filedocumented in this encounter Care Teams Exterior Designer Relationship Specialty Start Date End Date Jasiel Freeman MD [address] [place] [address] PCP - General Family Practice 08/15/17 documented as of this encounter
--- OUTSIDE RECORDS SUMMARY | 2024-10-24 06:37 | XMS_ITS | Encounter Summary ---
Author Organization [facility] Address [address] [place] [address] Care Team Providers Care Box Liner Name Role Phone Jasiel Freeman MD Primary Care Provider Reason for Visit * Reason Onset Date Comments Medication Refill 07/30/2020 Encounter Details Date Type Department Care Team (Late st Contact Info) Description 07/30/2020 Refill [facility] Gastroenterology [facility] [address] [place] [address] Annette Whitney MD [address] [facility] [address] [place] [address] Social History Tobacco Use Types Packs/Day Years [...] Clinic [facility] IBD and Gastroenterology Center [place] [address] [place] [address] Kitty Dover, ANP [address] [place] [address] documented as of this encounter Visit Diagnoses Not on filedocumented in this encounter Care Teams Box Liner Relationship Specialty Start Date End Date Jasiel Freeman MD [address] [place] [phone] PCP - General Family Practice 08/15/17 documented as of this encounter
--- OUTSIDE RECORDS SUMMARY | 2024-10-24 06:37 | XMS_ITS | Encounter Summary ---
Author Organization [facility] Address [address] [place] [address] Care Team Providers Care Tie Puller Name Role Phone Jasiel Freeman MD Primary Care Provider Encounter Details Date Type Department Care Team (Late st Contact Info) Description 10/21/2020 Specialty Pharmacy [facility] - [address] [place] [address] Thanh Solares, PHARMACIST Social History [...] note were not included. [facility] Home Infusion Order Edgardo Palomino Brittni 50 y.o. / male Patient's address (May not be service address): [address] [place] [address] Order Date: 10/20/2020 Order(s): Continue Entyvio 300mg IV every 8 weeks Per: Caren Whitney MD Generic substitution permitted for medications unless otherwise specified Order taken by Thanh Solares, PHARMACIST [facility] Specialty & Home Infusion [facility] [address] [place] [address] Edgardo Palomino Thyer 50 y.o. / male Patient's address on file: [address] [facility] [address] Home Phone Work Phone Home Infusion Order [...] 05/26/19) Per: Caren / KESHA Whitney [facility] Gastroenterology [address], [address] [facility] [address] Generic substitution permitted Detailed Home Infusion Orders [...] RN will take any ordered labs to [facility] when possible. If labs are not taken to a [facility] lab, it is the responsibility of nursing to make sure labs are faxed to the pharmacy at [phone] Whitney. Catheter Care Catheter type: PIV placed by ADVISORY INTERN prior to each infusion Flush IV catheter [...] lab draws/line complications. ?? Flushes provided by [facility] Specialty and Infusion pharmacy are [...] Elkins (50 y.o. male) is active with [facility] Specialty and Infusion services receiving Entyvio every 8 weeks at home for ulcerative colitis. ?? Edgardo is due for his next infusion this week. Pharmacist contacted ADVISORY INTERN to coordinate delivery. RN will picking machine operator helper today. Patient received last infusion without issue. No questions or concerns at this time. Patient has appointment with Dr. Nair on 01/29. 05/13/19 - Spoke with the patient who stated he is doing well. He has had no changes in his medication therapy or no clinical issues. Will ship medications and supplies to the patient. Thanh Solares MBA, [facility] 08/08/19 - Patient to receive infusion of Entyvio today after an insurance issue. Will send medications and supplies for the infusion. RDS 08/19/19 - Confirmed with the nurse immigration case worker that the patient was scheduled to receive [...] Infusion Care Team IV Pharmacy: [facility] / [phone] Nursing Agency: [facility] Physician(s): Dr. Whitney Additional Relevant Data Insurance Information: Payor: RX [employer] / Plan: RX PCS ADVANCE PARADIGM / Product Type: RX Caremark / IV access PIV placed by ADVISORY INTERN prior to each infusion Ht Readings from [...] level: Not on file Occupational History Employer: [employer] Employer: [employer] Social Needs ??? Financial [...] by intraveous injection see administration instructions. Home ADVISORY INTERN to administer over 30 minutes every 8 [...] Provided to Patient ?? Pharmacist offer to public relations counselor ?? RN instruction ?? Printed teaching sheets ?? Drug information paperwork - EH patient leaflet FADI Silverman [facility] Specialty & Infusion - [place] [id number] [place] [address] , [address] [place] [address] RIAL LIAISON documented in this encounter Plan of Treatment Upcoming Encounters Date Type Department Care Team (Late st Contact Info) Description 02/13/2025 10:30 AM CDT Office Visit [facility] IBD and Gastroenterology Center [place] [address] [facility] [address] [place] [address] Kitty Dover ANP [address] [facility] [address] [place] [address] documented as of this encounter Visit Diagnoses Not on filedocumented in this encounter Care Teams Tie Puller Relationship Specialty Start Date End Date Jasiel Freeman MD [address] [place] [phone] PCP - General Family Practice 08/15/17 documented as of this encounter
--- OUTSIDE RECORDS SUMMARY | 2024-10-24 06:37 | XMS_ITS | Encounter Summary ---
Author Organization [facility] Address [address] [place] [address] Care Team Providers Care Regional Sales Associate Name Role Phone Jasiel Freeman MD Primary Care Provider Encounter Details Date Type Department Care Team (Late Contact Info) Description 01/27/2021 Orders Only [facility] Gastroenterology [facility] [address] [place] [address] Joaquina Prescott RN Ulcerative pancolitis [...] [facility]ology [facility] [place] [address] [facility] [address] [place] [address] Kitty Dover, ANP [address] [facility] [address] [place] [address] documented as of this encounter Procedures Procedure Name Priority Date/Time Associated Diagnosis Comments MISCELLANEOUS LAB TEST Routine 12/09/2020 9:31 AM MANAGER MOLECULAR Ulcerative pancolitis without complication documented in this encounter Results * MISCELLANEOUS LAB TEST (12/09/2020 9:31 AM MANAGER MOLECULAR) MISCELLANEOUS LAB TEST 3.2 ug/mL [facility] Comment:vedolizumab level SPECIMEN TYPE blood NON [facility] MISCELLANEOUS LAB TEST <25 ng NON [facility] Comment:Anti-Vedolizumab Ant ibody Blood 12/09/2020 9:31 AM MANAGER MOLECULAR Annette Whitney MD CHEMISTRY SHELBY PRITCHETT Performing Organization Address City/State/[facility] Co de Phone Number NON [facility] documented in this encounter Visit Diagnoses Diagnosis Ulcerative pancolitis without complication documented in this encounter Care Teams Regional Sales Associate Relationship Specialty Start Date End Date Jasiel Freeman MD [address] [place] [address] PCP - General Family Practice 08/15/17 documented as of this encounter
--- OUTSIDE RECORDS SUMMARY | 2024-10-24 06:37 | XMS_ITS | Encounter Summary ---
Author Organization [facility] Address [address] [place] [address] Care Team Providers Care Rotational Moulding Operator Name Role Phone Jasiel Freeman MD Primary Care Provider Reason for Visit * Reason Onset Date Comments Home Visit 02/22/2021 Encounter Details Date Type Department Care Team (Late st Contact Info) Description 02/22/2021 Patient Outreach [facility] Specialty and Home Infusion - [address] [place] [address] Irina Wyatt, RN Home Visit [...] original note were not included. [facility] Specialty and Home Infusion Pharmacy [address] [place] [address] Home Infusion NURSING follow up Leonidas Edgardoisaiah Elkins 1970 [address] [facility] [address] Provider - Irina Wyatt RN 02/22/21 Visit [...] Pt informed on importance of notifying [facility] immediately if any unexpected [...] Patient knows how to reorder medications. [facility] Specialty and Home Infusion Pharmacy will [...] [place] [address] [place] [address] Kitty Dover, MIRTA [address] [place] [address] documented as of this encounter Visit Diagnoses Not on filedocumented in this encounter Care Teams Rotational Moulding Operator Relationship Specialty Start Date End Date Jasiel Freeman MD [address] [place] [phone] PCP - General Family Practice 08/15/17 documented as of this encounter
--- OUTSIDE RECORDS SUMMARY | 2024-10-24 06:37 | XMS_ITS | Encounter Summary ---
Author Organization [facility] Address [address] [place] [address] Care Team Providers Care Harnessmaker Apprentice Name Role Phone Jasiel Freeman MD Primary Care Provider Reason for Visit * Reason Onset Date Comments Medication Refill 10/22/2020 Encounter Details Date Type Department Care Team (Late st Contact Info) Description 10/22/2020 Refill [facility] Gastroenterology [facility] [address] [facility] [address] [place] [address] Annette Whitney MD [address] [facility] [address] [address] [place] [address] Social History Tobacco Use Types Packs/Day Years [...] PM CST LAST OV 05/11 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 SHOE SPIKE ASSEMBLER documented in this encounter Plan of Treatment Upcoming Encounters Date Type Department Care Team (Late st Contact Info) Description 02/13/2025 10:30 AM CDT Office Visit [facility] IBD and Gastroenterology Center [place] [address] [place] [address] Kitty Dover, MIRTA [address] [place] [address] [place] [address] documented as of this encounter Visit Diagnoses Not on filedocumented in this encounter Care Teams Harnessmaker Apprentice Relationship Specialty Start Date End Date Jasiel Freeman MD [address] [place] [phone] PCP - General Family Practice 08/15/17 documented as of this encounter
--- OUTSIDE RECORDS SUMMARY | 2024-10-24 06:37 | XMS_ITS | Encounter Summary ---
Author Organization [facility] Address [address] [place] [address] Care Team Providers Care Business Operations Analyst Name Role Phone Jasiel Freeman MD Primary Care Provider Reason for Visit * Reason Onset Date Comments Home Visit 03/23/2021 Encounter Details Date Type Department Care Team (Late st Contact Info) Description 03/23/2021 Patient Outreach [facility] Specialty and Home Infusion - [address] [place] [address] Irina Wyatt, RN Home Visit [...] Medical Center Specialty and Home Infusion Pharmacy [address] [place] [address] Home Infusion NURSING follow up Leonidas Edgardoisaiah Elkins 1970 [address] [facility] [address] Provider - Irina Wyatt RN 03/23/2021 Visit [...] observed with learning needs - No cultural, orthodox, or language barriers to learning Patient [...] dry. Psychiatric: normal mood and affect. 1. intermediate assessment and implementation of infusion [...] [place] [address] [place] [address] Kitty Dover, MIRTA [address] [place] [address] documented as of this encounter Visit Diagnoses Not on filedocumented in this encounter Care Teams Business Operations Analyst Relationship Specialty Start Date End Date Jasiel Freeman MD [address] [place] [phone] PCP - General Family Practice 08/15/17 documented as of this encounter
--- OUTSIDE RECORDS SUMMARY | 2024-10-24 06:37 | XMS_ITS | Encounter Summary ---
Author Organization [facility] Address [address] [place] [address] Care Team Providers Care Developmental Mathematics Instructor Name Role Phone Jasiel Freeman MD Primary Care Provider [phone] Encounter Details Date Type Department Care Team (Late st Contact Info) Description 01/26/2021 Specialty Pharmacy [facility] Specialty and Home Infusion - [address] [place] [address] Thanh Solares, PHARMACIST Social History [...] from the original note were not included. [facility] Specialty & Infusion - [facility] SPECIALTY & INFUSION [facility] [address] [facility], [address] [place] [address] PH: [phone] FX: [phone] Specialty Pharmacy Infusion Note Patient Name: Edgardo [...] changes Patient informed on importance of notifying [facility] Specialty and Infusion immediately if any unexpected insurance changes occur. - yes Authorization good through: 01/12/2022 Delivery: Delivery date: 01/26/2021 How are we shipping the medication? engineering associate Is it ok to leave? yes Delivery note: deliver before 12pm This assessment performed by: FADI Silverman [facility] Specialty & Home Infusion [facility] Home Infusion Order Edgardo [place] 50 y.o. / male Patient's address (May not be service address): [address] [place] [address] Order Date: 10/20/2020 Order(s): Continue Entyvio 300mg IV every 4 weeks Per: Caren Whitney MD Generic substitution permitted for medications unless otherwise specified Order taken by FADI Silverman [facility] Specialty & Home Infusion [address] [address] Edgardo [place] 50 y.o. / male Patient's address on file: [address] [place] [address] Home Phone Work Phone Home Infusion Order [...] (through 05/26/19) Per: Caren / KESHA Whitney [facility] [address] [facility] [address] Generic substitution permitted Detailed Home Infusion Orders [...] RN will take any ordered labs to [facility] when possible. If labs are not taken to a [facility] lab, it is the responsibility of nursing to make sure labs are faxed to the pharmacy at [phone] Whitney. Catheter Care Catheter type: PIV placed by PIPE ORGAN INSTALLER prior to each infusion Flush IV catheter [...] lab draws/line complications. ?? Flushes provided by [facility] Specialty and Infusion pharmacy are [...] [place] (50 y.o. male) is active with [facility] Specialty and Infusion services receiving Entyvio every 8 weeks at home for ulcerative colitis. ?? Edgardo is due for his next infusion this week. Pharmacist contacted PIPE ORGAN INSTALLER to coordinate delivery. RN will roll picker today. Patient received last infusion without issue. No questions or concerns at this time. Patient has appointment with Dr. Nair on 01/29. 05/13/19 - Spoke with the patient who stated he is doing well. He has had no changes in his medication therapy or no clinical issues. Will ship medications and supplies to the patient. Thanh Solares MBA, [facility] 08/08/19 - Patient to receive infusion of Entyvio today after an insurance issue. Will send medications and supplies for the infusion. RDS 08/19/19 - Confirmed with the nurse mental health case manager that the patient was scheduled [...] Home Infusion Care Team IV Pharmacy: [facility] [place] / [phone] Nursing Agency: [facility] Physician(s): Dr. Whitney Additional Relevant Data Insurance Information: Payor: RX CVS/[facility] / Plan: RX PCS ADVANCE PARADIGM / Product Type: RX Caremark / IV access PIV placed by PIPE ORGAN INSTALLER prior to each infusion Ht Readings from [...] level: Not on file Occupational History Employer: [employer] Employer: [employer] Tobacco Use ??? Smoking status: Former Smoker [...] Gatherings with Friends and Family: ??? Attends Adventist Services: ??? Active Member of Clubs or [...] intraveous injection see administration instructions. Home PIPE ORGAN INSTALLER to administer over 30 minutes every 8 [...] Provided to Patient ?? Pharmacist offer to family court counsellor ?? RN instruction ?? Printed teaching sheets ?? Drug information paperwork - EH patient leaflet FADI Silverman [facility] Specialty & Infusion [facility] [address], [address] [place] [address] documented in this encounter Plan of Treatment Upcoming Encounters Date Type Department Care Team (Late st Contact Info) Description 02/13/2025 10:30 AM CDT Office Visit [facility] IBD and Gastroenterology Center [facility] [facility] [address] [place] [address] Kitty Dover, ANP [address] [address] documented as of this encounter Visit Diagnoses Not on filedocumented in this encounter Care Teams Developmental Mathematics Instructor Relationship Specialty Start Date End Date Jasiel Freeman MD [address] [place] [phone] PCP - General Family Practice 08/15/17 documented as of this encounter
--- OUTSIDE RECORDS SUMMARY | 2024-10-24 06:37 | XMS_ITS | Encounter Summary ---
Author Organization [facility] Address [address] [place] [address] Care Team Providers Care In Process Inspector Name Role Phone Jasiel Freeman MD Primary Care Provider Encounter Details Date Type Department Care Team (Late st Contact Info) Description 08/19/2020 Specialty Pharmacy [facility] Specialty and Home Infusion - [address] [place] [address] Thanh Solares, PHARMACIST Social History [...] not included. [facility] Specialty & Infusion [facility] Edgardo [place] 49 y.o. / male Patient's address on file: [address] [place] [address] Home Phone Work Phone Home Infusion Order [...] / KESHA Whitney [facility] [address] [facility], [address] [place] [address] Generic substitution permitted Detailed Home Infusion Orders [...] take any ordered labs to [facility] when possible. If labs are not taken to a [facility] lab, it is the responsibility of nursing to make sure labs are faxed to the pharmacy at [phone] Whitney. Catheter Care Catheter type: PIV placed by HOOD MAKER prior to each infusion Flush IV catheter [...] complications. ?? Flushes provided by [facility] Specialty and Infusion pharmacy are for [...] [place] (49 y.o. male) is active with [facility] Specialty and Infusion services receiving Entyvio every 8 weeks at home for ulcerative colitis. ?? Edgardo is due for his next infusion this week. Pharmacist contacted HOOD MAKER to coordinate delivery. RN will pick up attendant today. Patient received last infusion without issue. [...] 08/19/19 - Confirmed with the nurse case investigator that the patient was scheduled to receive [...] Care Team IV Pharmacy: [facility] / [phone] Nursing Agency: [facility] Physician(s): Dr. Whitney Additional Relevant Data Insurance Information: Payor: RX [employer]S/[employer] / Plan: RX PCS ADVANCE PARADIGM / Product Type: RX Caremark / IV access PIV placed by HOOD MAKER prior to each infusion Ht Readings from [...] acidosis E87.2 ??? Sepsis, unspecified A41.9 ??? JOGRE (acute kidney injury) N17.9 ??? Protein calorie [...] level: Not on file Occupational History Employer: [employer] Employer: [employer] Social Needs ??? Financial [...] file Gets together: Not on file Attends restorationism service: Not on file Active member of [...] by intraveous injection see administration instructions. Home HOOD MAKER to administer over 30 minutes every 8 [...] Provided to Patient ?? Pharmacist offer to newspaper delivery counselor ?? RN instruction ?? Printed teaching sheets ?? Drug information paperwork - EH patient leaflet FADI Silverman [facility] Specialty & Infusion - [place] [address] [facility] , [address] [place] [address] documented in this encounter Plan of Treatment Upcoming Encounters Date Type Department Care Team (Late st Contact Info) Description 02/13/2025 10:30 AM CDT Office Visit [facility] IBD and Gastroenterology Center [place] [address] [facility] [address] [place] [address] Kitty Dover, MIRTA [address] [facility] [address] [place] [address] documented as of this encounter Visit Diagnoses Not on filedocumented in this encounter Care Teams In Process Inspector Relationship Specialty Start Date End Date Jasiel Freeman MD [address] [place] [phone] PCP - General Family Practice 08/15/17 documented as of this encounter
--- OUTSIDE RECORDS SUMMARY | 2024-10-24 06:37 | XMS_ITS | Encounter Summary ---
Author Organization [facility] Address [address] [place] [address] Care Team Providers Care Clinical Science Liaison Name Role Phone Jasiel Freeman MD Primary Care Provider [phone] Reason for Visit * Reason Onset Date Comments Home Visit 01/26/2021 Encounter Details Date Type Department Care Team (Late st Contact Info) Description 01/26/2021 Patient Outreach [facility] Specialty and Home Infusion - [address] [place] [address] Irina Wyatt, RN Home Visit [...] not included. [facility] Specialty and Home Infusion Pharmacy [address] [facility] [place] [address] Home Infusion NURSING follow up Leonidas [place] [address] [facility] [address] Provider - Irina Wyatt RN 01/26/2021 Visit start 1335 Visit end 1444 Contact numbers provided including after hours numbers [...] YES Pt informed on importance of notifying [facility] Specialty Pharmacy immediately if any unexpected insurance changes occur.YES No problem observed with learning needs - No cultural, sabianism, or language barriers to learning Patient and [...] knows how to reorder medications. [facility] Specialty and Home Infusion Pharmacy will [...] [facility] [place] [address] [place] [address] Kitty Dover, MIRTA [address] [facility] [address] [place] [address] documented as of this encounter Visit Diagnoses Not on filedocumented in this encounter Care Teams Clinical Science Liaison Relationship Specialty Start Date End Date Jasiel Freeman MD [address] [place] [phone] PCP - General Family Practice 08/15/17 documented as of this encounter
--- OUTSIDE RECORDS SUMMARY | 2024-10-24 06:37 | XMS_ITS | Encounter Summary ---
Author Organization [facility] Address [address] [place] [address] Care Team Providers Care Bias Binding Folder Name Role Phone Jasiel Freeman MD [...] (Late st Contact Info) Description 03/25/2021 Telephone [facility] Specialty and Home Infusion - [address] [place] [address] Irina Wyatt RN IV Med [...] [facility] IBD and Gastroenterology Center [place] [address] [facility] [address] [place] [phone] Kitty Dover, ANP [address] [place] [address] documented as of this encounter Visit Diagnoses Not on filedocumented in this encounter Care Teams Bias Binding Folder Relationship Specialty Start Date End Date Jasiel Freeman MD [address] [place] [phone] PCP - General Family Practice 08/15/17 documented as of this encounter
--- OUTSIDE RECORDS SUMMARY | 2024-10-24 06:37 | XMS_ITS | Encounter Summary ---
Author Organization [facility] Address [address] [place] [address] Care Team Providers Care Asbestos Shingle Inspector Name Role Phone Jasiel Freeman MD Primary Care Provider Encounter Details Date Type Department Care Team (Late st Contact Info) Description 01/05/2021 Abstract [facility] Gastroenterology [facility] [address] [facility] [address] [place] [address] Provider, Abstract NO ADDRESS ON [...] Visit [facility] IBD and Gastroenterology Center [place] [address] [place] [address] Kitty Dover, MIRTA [address] [place] [address] documented as of this encounter Visit Diagnoses Not on filedocumented in this encounter Care Teams Asbestos Shingle Inspector Relationship Specialty Start Date End Date Jasiel Freeman MD [address] [place] [address] PCP - General Family Practice 08/15/17 documented as of this encounter
--- OUTSIDE RECORDS SUMMARY | 2024-10-24 06:37 | XMS_ITS | Encounter Summary ---
Author Organization [facility] Address [address] [place] [address] Care Team Providers Care Metal Hardener Name Role Phone Jasiel Freeman MD Primary Care Provider Reason for Visit * Reason Onset Date Comments Medication Refill Medication Refill 04/05/2021 Encounter Details Date Type Department Care Team (Late st Contact Info) Description 11/25/2020 Refill [facility] [address] [facility] [address] [place] [address] Annette Whitney MD [address] [facility] [place] [address] Social History Tobacco Use Types Packs/Day Years [...] 10:30 AM CDT Office Visit [facility] IBD and Gastroenterology Center [place] [address] [facility] 180 [place] [address] Kitty Dover, MIRTA [address] [facility] 100 [place] [address] documented as of this encounter Visit Diagnoses Not on filedocumented in this encounter Care Teams Metal Hardener Relationship Specialty Start Date End Date Jasiel Freeman MD [address] [place] [phone] PCP - General Family Practice 08/15/17 documented as of this encounter
--- OUTSIDE RECORDS SUMMARY | 2024-10-24 06:37 | XMS_ITS | Encounter Summary ---
Author Organization [facility] Address [address] [place] [address] Care Team Providers Care Dicer Machine Operator Name Role Phone Jasiel Freeman MD Primary Care Provider Encounter Details Date Type Department Care Team (Late st Contact Info) Description 02/19/2021 Specialty Pharmacy [facility] Specialty and Home Infusion - [address] [place] [address] Thanh Solares, PHARMACIST Social History [...] original note were not included. [facility] Specialty & Infusion - [facility] SPECIALTY & INFUSION [facility] [address] [facility], [address] [place] [address] PH: [phone] FX: [phone] Specialty Pharmacy Infusion Note Patient Name: Edgardo [...] 02/19/2021 How are we shipping the medication? Laster Hand Is it ok to leave? yes Delivery note: infusion changed to 02/22 This assessment performed by: FADI Silverman [facility] SPECIALTY & INFUSION [address], [place] [address] PH: [phone] FX: [phone] Specialty Pharmacy Infusion Note Patient Name: Edgardo [...] 01/26/2021 How are we shipping the medication? logistics operations manager Is it ok to leave? yes Delivery note: deliver before 12pm This assessment performed by: FADI Silvermany Specialty & Home Infusion [facility] Infusion Order Edgardo [place] 50 y.o. / male Patient's address (May not be service address): [address] [facility] [address] Order Date: 10/20/2020 Order(s): Continue Entyvio 300mg IV every 4 weeks Per: Caren Whitney MD Generic substitution permitted for medications unless otherwise specified Order taken by Thanh Solares, PHARMACIST [facility] Specialty & Home Infusion [address] [address] Edgardo [place] 50 y.o. / male Patient's address on file: [address] [facility] [address] Home Phone Work Phone Home Infusion Order [...] (through 05/26/19) Per: Caren / KESHA Whitney [facility] Gastroenterology [address] [facility] [id number] Generic substitution permitted Detailed Home Infusion Orders [...] will take any ordered labs to [facility] when possible. If labs are not taken to a [facility] lab, it is the responsibility of nursing to make sure labs are faxed to the pharmacy at [phone] Whitney. Catheter Care Catheter type: PIV placed by DRYING MACHINE RECEIVER prior to each infusion Flush IV catheter [...] draws/line complications. ?? Flushes provided by [facility] Specialty and Infusion pharmacy are [...] [place] (50 y.o. male) is active with [facility] Specialty and Infusion services receiving Entyvio every 8 weeks at home for ulcerative colitis. ?? Edgardo is due for his next infusion this week. Pharmacist contacted DRYING MACHINE RECEIVER to coordinate delivery. RN will tack picker [...] RDS 08/19/19 - Confirmed with the nurse supportive [...] Infusion Care Team IV Pharmacy: [facility] Infusion / [phone] Nursing Agency: [facility] Physician(s): Dr. Whitney Additional Relevant Data Insurance Information: Payor: RX CVS/[facility] / Plan: RX PCS ADVANCE PARADIGM / Product Type: RX Caremark / IV access PIV placed by DRYING MACHINE RECEIVER prior to each infusion Ht Readings from [...] level: Not on file Occupational History Employer: [employer] Employer: [employer] Tobacco Use ??? Smoking status: Former Smoker [...] Gatherings with Friends and Family: ??? Attends Synagogue Services: ??? Active Member of Clubs or [...] by intraveous injection see administration instructions. Home DRYING MACHINE RECEIVER to administer over 30 minutes every 8 [...] to Patient ?? Pharmacist offer to certified credit counselor ?? RN instruction ?? Printed teaching sheets ?? Drug information paperwork - EH patient leaflet Thanh Solares PHARMACIST [facility] Specialty & Infusion - [place] [id number] [place] [address] , [address] [place] [address] documented in this encounter Plan of Treatment Upcoming Encounters Date Type Department Care Team (Late st Contact Info) Description 02/13/2025 10:30 AM CDT Office Visit [facility] IBD and Gastroenterology Center [place] [address] [facility] 180 [place] [address] Kitty Dover, MIRTA [address] [facility] 100 [place] [address] documented as of this encounter Visit Diagnoses Not on filedocumented in this encounter Care Teams Dicer Machine Operator Relationship Specialty Start Date End Date Jasiel Freeman MD [address] [place] [phone] PCP - General Family Practice 08/15/17 documented as of this encounter
--- OUTSIDE RECORDS SUMMARY | 2024-10-24 06:37 | XMS_ITS | Encounter Summary ---
Author Organization [facility] Address [address] [place] [address] Care Team Providers Care Automotive Collision Estimator Name Role Phone Jasiel [place] MD Primary Care Provider Reason for Visit * Reason Onset Date Comments Home Visit 04/20/2021 Encounter Details Date Type Department Care Team (Late st Contact Info) Description 04/20/2021 Patient Outreach [facility] Specialty and Home Infusion - [address] [place] [address] Irina Wyatt, RN Home Visit [...] from the original note were not included. [facility] Specialty and Home Infusion Pharmacy [address] [facility] [place] [address] Home Infusion NURSING follow up Leonidas Edgardoisaiah [place] 1970 [address] [facility] [address] Provider - Irina Wyatt RN 04/20/21 Visit start 1415 Visit end 1536 Contact numbers provided including after hours numbers [...] yes Pt informed on importance of notifying [facility] Specialty Pharmacy immediately if any unexpected insurance changes occur.yes No problem observed with learning needs - No cultural, jew, or language barriers to learning Patient and [...] dry. Psychiatric: normal mood and affect. 1. [facility] assessment and implementation of infusion [...] reactions. Patient knows how to reorder medications. [facility] Specialty and Home Infusion Pharmacy [...] Description 02/13/2025 10:30 AM CDT Office Visit [facility] IBD and Gastroenterology Center [place] [address] [place] [address] Kitty Dover, MIRTA [address] [place] [address] documented as of this encounter Visit Diagnoses Not on filedocumented in this encounter Care Teams Automotive Collision Estimator Relationship Specialty Start Date End Date Jasiel [place] MD [address] [place] [phone] PCP - General Family Practice 08/15/17 documented as of this encounter
--- OUTSIDE RECORDS SUMMARY | 2024-10-24 06:37 | XMS_ITS | Encounter Summary ---
Author Organization [facility] Address [address] [place] [address] Care Team Providers Care Edger Tailer Name Role Phone Jasiel Freeman MD Primary [...] (Late st Contact Info) Description 02/24/2021 Telephone [facility] Specialty and Home Infusion - [address] [place] [address] Irina Wyatt RN IV Med [...] [facility] [place] [address] [facility] 180 [place] [phone] Kitty Dover, ANP [address] [place] [address] documented as of this encounter Visit Diagnoses Not on filedocumented in this encounter Care Teams Edger Tailer Relationship Specialty Start Date End Date Jasiel Freeman MD [address] [place] [phone] PCP - General Family Practice 08/15/17 documented as of this encounter
--- OUTSIDE RECORDS SUMMARY | 2024-10-24 06:37 | XMS_ITS | Encounter Summary ---
Author Organization [facility] Address [address] [place] [address] Care Team Providers Care Fios Line Installer Name Role Phone Jasiel Freeman MD Primary Care Provider Reason for Visit * Reason Onset Date Comments Home Visit 12/09/2020 Encounter Details Date Type Department Care Team (Late st Contact Info) Description 12/09/2020 Patient Outreach [facility] Specialty and Home Infusion - [address] [place] [address] Irina Wyatt, RN Home Visit [...] Comments Blood Pressure 138/80 12/09/2020 3:30 PM JUNIOR HIGH MATH TEACHER Pulse 81 12/09/2020 3:30 PM JUNIOR HIGH MATH TEACHER Temperature 37.2 ??C (99 ??F) 12/09/2020 3:30 PM JUNIOR HIGH MATH TEACHER Respiratory Rate 16 12/09/2020 3:30 PM JUNIOR HIGH MATH TEACHER Oxygen Saturation 96% 12/09/2020 3:30 PM JUNIOR HIGH MATH TEACHER Inhaled Oxygen Concentration - - Weight - - Height - - Body Mass Index - - documented in this encounter Miscellaneous Notes * Telephone Encounter - Irina Wyatt RN - 12/10/2020 10:02 AM CST [facility] [address] [place] [address] Home Infusion NURSING follow up Leonidas Elkins 1970 [address] [facility] [address] Provider - Irina Wyatt RN 12/09/20 Visit [...] dry. Psychiatric: normal mood and affect. 1. assisted assessment and implementation of infusion [...] knows how to reorder medications. [facility] will dispense [...] in approximately 8 weeks for Entyvio infusion OR HIGH MATH TEACHER documented in this encounter Plan of Treatment Upcoming Encounters Date Type Department Care Team (Late st Contact Info) Description 02/13/2025 10:30 AM CDT Office Visit [facility] [place] [address] [place] [address] Kitty Dover ANP [address] [place] [address] documented as of this encounter Visit Diagnoses Not on filedocumented in this encounter Care Teams Fios Line Installer Relationship Specialty Start Date End Date Jasiel Freeman MD [address] [place] [phone] PCP - General Family Practice 08/15/17 documented as of this encounter
--- OUTSIDE RECORDS SUMMARY | 2024-10-24 06:37 | XMS_ITS | Encounter Summary ---
Author Organization [facility] Address [address] [place] [address] Care Team Providers Care Sales Project Engineer Name Role Phone Jasiel Freeman MD Primary Care Provider Reason for Referral * Outpatient Services (Routine) - Closed Specialty Diagnoses / Procedures Referred By Contalka t Referred To Contact Pharmacy Diagnoses Ulcerative pancolitis without complication Procedures INFUSION THERAPY Annette Whitney MD [address] [facility] [place] [address] Zzzstlrx [facility] Specialty And Home Infusion [address] [place] [address] Referral ID Status Reason Start Date Expiration Date Visits Re quested Visits Authorized [id number] Closed 06/15/2020 07/16/2021 1 1 Encounter Details Date Type Department Care Team (Late st Contact Info) Description 06/15/2020 Orders Only [facility] Gastroenterology [facility] [address] [facility] [facility] [address] [place] [address] Annette Whitney MD [address] [facility] [place] [address] Ulcerative pancolitis without complication (Primary [...] [facility] [place] [address] [place] [phone] Kitty Dover ANP [address] [place] [address] documented as of this encounter Visit Diagnoses Diagnosis Ulcerative pancolitis without complication- Primary documented in this encounter Care Teams Sales Project Engineer Relationship Specialty Start Date End Date Jasiel Freeman MD [address] [place] [phone] PCP - General Family Practice 08/15/17 documented as of this encounter
--- OUTSIDE RECORDS SUMMARY | 2024-10-24 06:37 | XMS_ITS | Encounter Summary ---
Author Organization [facility] Address [address] [place] [address] Care Team Providers Care Valuer Name Role Phone Jasiel Freeman MD Primary [...] (Late st Contact Info) Description 01/28/[address] [facility] Specialty and Home Infusion - [address] [place] [address] Irina Wyatt RN IV Med [...] AM CDT Office Visit [facility] [place] [address] [facility] [address] [place] [phone] Kitty Dover, ANP [address] [place] [address] documented as of this encounter Visit Diagnoses Not on filedocumented in this encounter Care Teams Valuer Relationship Specialty Start Date End Date Jasiel Freeman MD [address] [place] [phone] PCP - General Family Practice 08/15/17 documented as of this encounter
--- OUTSIDE RECORDS SUMMARY | 2024-10-24 06:37 | XMS_ITS | Encounter Summary ---
Author Organization [facility] Address [address] [place] [address] Care Team Providers Care Retanned Leather Roller Name Role Phone Jasiel Freeman MD Primary Care Provider Reason for Visit * Reason Onset Date Comments Erroneous encounter-disregard 04/21/2021 Encounter Details Date Type Department Care Team (Late st Contact Info) Description 04/21/2021 Telephone [facility] Gastroenterology [facility] [address] [place] [address] Ilya Lawson MD [address] [facility] [address] [place] [address] Erroneous encounter-disregard Social History Tobacco [...] [facility] IBD [facility]astro[facility]ology [facility] [place] [address] [facility] [address] [place] [address] Kitty Dover, ANP [address] [place] [address] [place] [address] documented as of this encounter Visit Diagnoses Not on filedocumented in this encounter Care Teams Retanned Leather Roller Relationship Specialty Start Date End Date Jasiel Freeman MD [address] [place] [phone] PCP - General Family Practice 08/15/17 documented as of this encounter
--- OUTSIDE RECORDS SUMMARY | 2024-10-24 06:37 | XMS_ITS | Encounter Summary ---
Author Organization [facility] Address [address] [place] [address] Care Team Providers Care Information Technology Director Name Role Phone Jasiel Freeman MD Primary Care Provider Encounter Details Date Type Department Care Team (Late st Contact Info) Description 10/13/2020 Specialty Pharmacy [facility] Specialty and Home Infusion - [address] [place] [address] Thanh Solares, PHARMACIST Social History [...] from the original note were not included. [facility] Specialty & Infusion [facility] Edgardo Elkins 50 y.o. / male Patient's address on file: [address] [place] [address] Home Phone Work Phone Home Infusion Order [...] (through 05/26/19) Per: Caren / KESHA Whitney [facility] Gastroenterology [address] [facility] [place] [address] Generic substitution permitted Detailed Home Infusion Orders [...] RN will take any ordered labs to [facility] when possible. If labs are not taken to a [facility] lab, it is the responsibility of nursing to make sure labs are faxed to the pharmacy at [phone] Whitney. Catheter Care Catheter type: PIV placed by FREEZER PERSON prior to each infusion Flush IV catheter [...] lab draws/line complications. ?? Flushes provided by [facility] Specialty and Infusion pharmacy are for [...] Elkins (50 y.o. male) is active with [facility] Specialty and Infusion services receiving Entyvio every 8 weeks at home for ulcerative colitis. ?? Edgardo is due for his next infusion this week. Pharmacist contacted FREEZER PERSON to coordinate delivery. RN will fruit or [...] JEANNA 08/19/19 - Confirmed with the nurse welfare case worker that the patient was scheduled [...] Infusion Care Team IV Pharmacy: [facility] Infusion / [phone] Nursing Agency: [facility] Physician(s): Dr. Whitney Additional Relevant Data Insurance Information: Payor: RX [employer] / Plan: RX PCS ADVANCE PARADIGM / Product Type: RX [employer] / IV access PIV placed by FREEZER PERSON prior to each infusion Ht Readings from [...] level: Not on file Occupational History Employer: [employer] Employer: [employer] Social Needs ??? Financial [...] file Gets together: Not on file Attends baptist service: Not on file Active member of [...] by intraveous injection see administration instructions. Home FREEZER PERSON to administer over 30 minutes every 8 [...] paperwork - EH patient leaflet FADI Silverman [facility] Specialty & Infusion - [place] [id number] , [address] [place] [address] RUMENTATION AND CONTROL TECHNICIAN documented in this encounter Plan of Treatment Upcoming Encounters Date Type Department Care Team (Late st Contact Info) Description 02/13/2025 10:30 AM CDT Office Visit [facility] IBD and Gastroenterology Center [place] [address] [place] [address] Kitty Dover, MIRTA [address] [place] [address] documented as of this encounter Visit Diagnoses Not on filedocumented in this encounter Care Teams Information Technology Director Relationship Specialty Start Date End Date Jasiel Freeman MD [address] [place] [phone] PCP - General Family Practice 08/15/17 documented as of this encounter
--- OUTSIDE RECORDS SUMMARY | 2024-10-24 06:37 | XMS_ITS | Encounter Summary ---
Author Organization [facility] Address [address] [place] [address] Care Team Providers Care Boarder Steam Name Role Phone Jasiel Freeman MD Primary Care Provider Encounter Details Date Type Department Care Team (Late st Contact Info) Description 06/26/2020 Specialty Pharmacy [facility] Specialty and Home Infusion - [address] [place] [address] Thanh Solares, PHARMACIST Social History [...] not included. [facility] [place] Edgardo Elkins 49 y.o. / male Patient's address on file: [address] [facility] [facility] [address] Home Phone Work Phone Home Infusion Order [...] [facility] Gastroenterology [address] [facility] [address] Generic substitution permitted Detailed Home Infusion Orders [...] RN will take any ordered labs to [facility] when possible. If labs are not taken to a [facility] lab, it is the responsibility of nursing to make sure labs are faxed to the pharmacy at [phone] Whitney. Catheter Care Catheter type: PIV placed by GOLF CLUB MAKER prior to each infusion Flush IV [...] lab draws/line complications. ?? Flushes provided by [facility] Specialty and Infusion pharmacy are [...] Elkins (49 y.o. male) is active with [facility] Specialty and Infusion services receiving Entyvio every 8 weeks at home for ulcerative colitis. ?? Edgardo is due for his next infusion this week. Pharmacist contacted GOLF CLUB MAKER to coordinate delivery. RN will seed cone [...] supplies to the patient. Thanh Solares MBA, [facility] 08/08/19 - Patient to receive [...] Whitney Home Infusion Care Team IV Pharmacy: [facility] / [phone] Nursing Agency: [facility] Physician(s): Dr. Whitney Additional Relevant Data Insurance Information: Payor: RX [employer] / Plan: RX PCS ADVANCE PARADIGM / Product Type: RX [employer]mark / IV access PIV placed by GOLF CLUB MAKER prior to each infusion Ht Readings [...] level: Not on file Occupational History Employer: [employer] Employer: [employer] Social Needs ??? Financial [...] file Gets together: Not on file Attends adventist service: Not on file Active member of [...] by intraveous injection see administration instructions. Home GOLF CLUB MAKER to administer over 30 minutes every [...] Provided to Patient ?? Pharmacist offer to automobile club travel counselor ?? RN instruction ?? Printed teaching sheets ?? Drug information paperwork - EH patient leaflet FADI Silverman [facility] & Infusion [facility] [address] [facility] , [address] [place] [address] documented in this encounter Plan of Treatment Upcoming Encounters Date Type Department Care Team (Late st Contact Info) Description 02/13/2025 10:30 AM CDT Office Visit [facility] IBD and Gastroenterology [facility] [place] [address] [place] [address] Kitty Dover ANP [address] [place] [address] documented as of this encounter Visit Diagnoses Not on filedocumented in this encounter Care Teams Boarder Steam Relationship Specialty Start Date End Date Jasiel Freeman MD [address] [place] [phone] PCP - General Family Practice 08/15/17 documented as of this encounter
--- OUTSIDE RECORDS SUMMARY | 2024-10-24 06:37 | XMS_ITS | Encounter Summary ---
Author Organization [facility] Address [address] [place] [address] Care Team Providers Care Macadam Raker Name Role Phone Jasiel Freeman MD Primary Care Provider [phone] Reason for Visit * Auth/Cert Specialty Diagnoses / Procedures Referred By Lambert pizarro Referred To Contact Perioperative Diagnoses Ulcerative pancolitis with other complication Procedures ID SIGMOIDOSCOPY FLX DX W/COLLJ SPEC BR/WA IF PFRMD CHECKOUT SIGMOIDOSCOPY FLEXIBLE [facility] [address] [place] [address] Referral ID Status Reason Start Date Expiration Date Visits Re quested Visits Authorized [id number] 1 1 Encounter Details Date Type Department Care Team (Late st Contact Info) Description 06/12/2020 7:34 AM CDT Anesthesia Event [facility] [place] [address] [place] [address] Ilya Lutz MD [address] [place] [address] Philly Munoz CRNA [address] [place] [address] Anesthesia Record Procedure Summary Procedure [...] chest rise 06/12/20 0710 by Philly Munoz, BUILDING CONSTRUCTION SUPERVISOR 06/12/20 0831 by Ramona Hodge RN Peripheral [...] required. Cardiovascular Exercise tolerance: good (-) past OH, CAD, CABG/stent Rhythm: regular Rate: normal Neuro/Psych [...] Patient. Plan discussed with Surgeon, Anesthesiologist, Anesthesiologist Box Estimator and Nurse Internal Control Manager. Post-op Pain Control Plan to use IV [...] [facility] IBD [facility]ology [facility] [place] [address] [facility] [facility] [address] [place] [address] Kitty Dover, MIRTA [address] [facility] [address] [place] [address] documented as of this encounter [...] mg documented in this encounter Care Teams Macadam Raker Relationship Specialty Start Date End Date Jasiel Freeman MD [address] [place] [phone] PCP - General Family Practice 08/15/17 documented as of this encounter
--- OUTSIDE RECORDS SUMMARY | 2024-10-24 06:37 | XMS_ITS | Encounter Summary ---
Author Organization [facility] Address [address] [place] [address] Care Team Providers Care Animal Husbandry Manager Name Role Phone Jasiel Freeman MD Primary Care Provider Encounter Details Date Type Department Care Team (Late st Contact Info) Description 07/01/2020 Chart Note [facility] Gastroenterology [place] [address] [place] [address] Joaquina Prescott, RN Social History [...] of entyvio 300mg Q4 weeks PA number [id number]. * Joaquina Prescott, RN - 07/01/2020 9:41 AM CDT [employer] P2P process for denial of q4wk Entyvio for no proof clinical response.Called [phone] Nair 07/02/2020 230P AGRICULTURAL MECHANIC/330P EST To be called at her cell number. (Asked for Palliative Medicine Physician. Was told that would be with Registered [...] [facility] IBD and Gastroenterology Center [place] [address] [facility] [address] [place] [address] Kitty Dover ANP [address] [place] [address] documented as of this encounter Visit Diagnoses Not on filedocumented in this encounter Care Teams Animal Husbandry Manager Relationship Specialty Start Date End Date Jasiel Freeman MD [address] [place] [phone] PCP - General Family Practice 08/15/17 documented as of this encounter
--- OUTSIDE RECORDS SUMMARY | 2024-10-24 06:37 | XMS_ITS | Encounter Summary ---
Author Organization [facility] Address [address] [place] [address] Care Team Providers Care Ceiling Insulation Blower Name Role Phone Jasiel Freeman MD Primary Care Provider Reason for Visit * Reason Onset Date Comments Home Visit 10/14/2020 Encounter Details Date Type Department Care Team (Late st Contact Info) Description 10/14/2020 Patient Outreach [facility] Specialty and Home Infusion - [address] [place] [address] Irina Wyatt, RN Home Visit [...] Comments Blood Pressure 138/84 10/14/2020 2:45 PM MARBLE CHIP TERRAZZO WORKER Pulse 87 10/14/2020 2:45 PM MARBLE CHIP TERRAZZO WORKER Temperature 37.4 ??C (99.4 ??F) 10/14/2020 2:45 PM CS T Respiratory Rate 16 10/14/2020 2:45 PM MARBLE CHIP TERRAZZO WORKER Oxygen Saturation 96% 10/14/2020 2:45 PM MARBLE CHIP TERRAZZO WORKER Inhaled Oxygen Concentration - - Weight - - Height - - Body Mass Index - - documented in this encounter Miscellaneous Notes * Telephone Encounter - Irina Wyatt RN - 10/19/2020 8:27 AM CST Images from the original note were not included. [facility] Specialty and Home Infusion Pharmacy [address] [place] [address] Home Infusion NURSING follow up Leonidas Elkins 1970 [address] [facility] [address] Provider - Irina Wyatt RN 10/14/20 Visit [...] in approximately 8 weeks for Entyvio infusion LE CHIP TERRAZZO WORKER documented in this encounter Plan of Treatment Upcoming Encounters Date Type Department Care Team (Late st Contact Info) Description 02/13/2025 10:30 AM CDT Office Visit [facility] IBD and Gastroenterology Center [place] [address] [place] [address] Kitty Dover ANP [address] [place] [address] documented as of this encounter Visit Diagnoses Not on filedocumented in this encounter Care Teams Ceiling Insulation Blower Relationship Specialty Start Date End Date Jasiel Freeman MD [address] [place] [phone] PCP - General Family Practice 08/15/17 documented as of this encounter
--- OUTSIDE RECORDS SUMMARY | 2024-10-24 06:37 | XMS_ITS | Encounter Summary ---
Author Organization [facility] Address [address] [place] [address] Care Team Providers Care Deck Builder Name Role Phone Jasiel Freeman MD Primary Care Provider Reason for Referral * Eval and Treat (Routine) - Closed Specialty Diagnoses / Procedures Referred By Lambert pizarro Referred To Contact Diagnoses Ulcerative pancolitis with other complication Annette Whitney MD 1 [facility] [place] [address] Joaquina Prescott, ic designer standard cells ID Status Reason Start Date Expiration Date V isits Requested Visits Authorized [id number] Closed CRS To Schedule (STL) 06/12/2020 06/13/2021 1 1 Reason for Visit * Auth/Cert Specialty Diagnoses / Procedures Referred By Lambert pizarro Referred To Contact Perioperative Diagnoses Ulcerative pancolitis with other complication Procedures OH SIGMOIDOSCOPY FLX DX W/COLLJ SPEC BR/WA IF PFRMD CHECKOUT SIGMOIDOSCOPY FLEXIBLE [facility] [address] [place] [address] Referral ID Status Reason Start Date Expiration Date Visits Re quested Visits Authorized [id number] 1 1 Encounter Details Date Type Department Care Team (Latest Contact Info) Description 06/12/2020 7:00 AM CDT - 06/12/2020 8:53 AM CDT Hospital Encounter [facility] [address] [place] [address] Annette Whitney MD 1 [facility] [place] [address] Ulcerative pancolitis with other complication Discharge Disposition: [...] weeks, please call the office. Office Phone: [facility] [phone] [place] [phone] Exchange: documented in this encounter Medications at [...] by intraveous injection see administration instructions. Home PROSPECT MANAGER to administer over 30 minutes every [...] by intraveous injection see administration instructions. Home PROSPECT MANAGER to administer over 30 minutes every [...] 06/12/2020 7:59 AM CDTAssociated Order(s): POUCHOSCOPY REPORT [facility] End[facility] Patient Name: Edgardo Elkins Procedure [...] of Addenda: [address]; [place] [address] documented in this encounter OR Notes * Zarina-OP - Ruth Swanson RN - 06/05/2020 6:04 PM CDT ?Routine Pre-Anesthesia Protocol for GI Lab Procedures [facility] Approved by: [facility] - Medical Executive Committee Approval Date: 04/15/2020 ORDERS ARE ENTERED ???PER PROTOCOL?? Enter the protocol in the patient???s electronic health record using [employer]: .anestprotocolgilab NURSING ORDERS: Monitoring: o Obtain and [...] appropriate, may confirm POC with: Nursing Only [id number] (this lab can be obtained at no [...] injectable antihyperglycemic agents and glucose is less [id number] mg/dl o NPO patients who have NOT [...] MEDICATION ORDERS - entered by the Pharmacist outgoing inspector RESCUE ORDERS - entered by the Pharmacist or the natural resource manager Orders Patient has IV access and UNCONCIOUS, [...] Verbalizes understanding. 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 All of the patients questions answered. documented in this encounter Plan of Treatment Upcoming Encounters Date Type Department Care Team (Late st Contact Info) Description 02/13/2025 10:30 AM CDT Office Visit [facility] [place] [address] [place] [address] Kitty Dover, ANP [address] [place] [address] Scheduled Referrals Name Type Priority [...] AM CDT Ulcerative pancolitis with other complication OH SIGMOIDOSCOPY FLX DX W/COLLJ SPEC BR/WA IF PFRMD 06/12/2020 7:35 AM CDT Ulcerative pancolitis with other complication Case Notes with anesthesia documented in this encounter Results * QUANTIFERON TB GOLD (06/12/2020 8:27 AM CDT) QUANTIFERON TB GOLD PLUS Negative Negative 06/15/2020 8:01 PM CDT [facility] Comment: No interferon-gamma response to M. [...] NIL 0.00 IU/mL 06/15/2020 8:01 PM CDT [facility] TB2 AG - NIL 0.00 IU/mL 06/15/2020 8:01 PM CDT [facility] MITOGEN-NIL 6.19 IU/mL 06/15/2020 8:01 PM CDT [facility] NIL 0.01 IU/mL 06/15/2020 8:01 PM CDT [facility] Comment: Test Performed by: [facility] [place][Note 2] [address] [id number] Cancer Registry Manager: James Oliveira M.D. Ph.D.; CLIA# [id number] Blood Venipuncture / Unknown 06/12/2020 8:27 AM CDT 06/12/2020 8:32 AM CDT Annette Whitney MD [facility] * POUCHOSCOPY REPORT (06/12/2020 7:59 AM CDT) Narrative Procedure Note Annette Whitney MD - 06/12/2020 7:59 AM CDT [facility] Patient Name: Edgardo Elkins Procedure [...] of Addenda: 0 [address] ; [place] [address] Annette Whitney MD GI PROCEDURE O RDERABLES * PATHOLOGY (06/12/2020 7:53 AM CDT) CASE REPORT Surgical Pathology Report ? Case: [id number] ? Authorizing Provider: ??Annette Whitney, ?? Collected: ? 06/12/2020 07:53 AM ? MD ? Ordering Location: ? [facility] [place] ??Received: ?06/12/2020 09:18 AM ? Pathologist: ? Al, Shalonda Barone, ? Specimens: ?? A) - Other, specify, bx pre-pouch ileum ? B) - Other, specify, bx pouch ? C) - Other, specify, bx rectal cuff ? 06/15/2020 11:22 AM CDT [facility] FINAL DIAGNOSIS Small intestine, pre-pouch ileum, endoscopic biopsy: - Active ileitis, patchy and very mild. Small intestine, pouch, endoscopic biopsy: - Small intestinal mucosa with reactive changes and patchy and mild active enteritis. Intestine, rectal cuff, endoscopic biopsy: - Small intestinal mucosa/rectal mucosa with patchy and mild active enteritis. 06/15/2020 11:22 AM [facility] PROCEDURE 1: SIGMOIDOSCOPY FLEXIBLE 1: with anesthesia 06/15/2020 11:22 AM [facility] CLINICAL INFORMATION R/o Pouchitis Ulcerative pancolitis with other complication [K51.018] 06/15/2020 11:22 AM [facility] GROSS DESCRIPTION The specimens are received [...] It is entirely submitted in cassette C1. [facility] 06/15/2020 11:22 AM [facility] MICROSCOPIC DESCRIPTION The slides are labeled [id number] and Edgardo Elkins. Sections of pre-pouch ileum [...] unremarkable in appearance. 06/15/2020 11:22 AM CDT [facility] COMMENT Special stain and/or immunohistochemical results are interpreted with controls that demonstrate appropriate staining reactions. Note on use of immunocytochemistry reagents: This test was developed and its performance characteristics determined by [facility], Department of Laboratory Medicine. It has [...] part or completely in the following laboratories: [facility], CLIA #[id number] [address] [place] [address] [facility] CLIA #[id number] [address] [place] [address] [facility] CLIA #[id number] [address] [place] [address]. 06/15/2020 11:22 AM CDT [facility] Tissue (Other, specify) Collection / Unknown 06/12/2020 7:53 AM CDT 06/12/2020 9:18 AM CDT Comment:R/o Pouchitis Tissue specimen (specimen) (Other, specify) Collection / Unknown 06/12/2020 7:54 AM CDT 06/12/2020 9:18 AM CDT Comment:R/o Pouchitis Tissue specimen (specimen) (Other, specify) 06/12/2020 7:55 AM CDT 06/12/2020 9:18 AM CDT Comment:R/o Pouchitis Annette Whitney MD PATHOLOGY/CYTO LOGY ORDERABLES [facility] CLIA# [id number] [address] [place], [place] [address], [place] [id number] * 2019 NOVEL CORONAVIRUS (COVID-19) PCR DETECTION (06/06/2020 10:00 AM CDT) COVID-19 PCR NOT DETECTED NOT DETECTED 06/08/2020 1:21 AM CDT [facility] Comment: A Not Detected (negative) test result [...] providers and patients using the following websites: https://www.[employer]/home/Covid-19/HCP/NAAT/fact-sheet2 https://www.[employer]/home/Covid-19/Patients/NAAT/ fact-sheet2 This test has been authorized by the FDA under an Emergency Use Authorization (EUA) for use by authorized laboratories. Due to the current public health emergency, [facility] is receiving a high volume of samples [...] about COVID-19 can be found at the [employer] website: www.[employer]/Covid19. Upper Respiratory ENTIRE NASOPHARYNX / Unknown Collection / Unknown 06/06/2020 10:00 AM CDT 06/06/2020 3:24 PM CDT Narrative [facility] - 06/08/2020 1:21 AM CDT Performing Organization Information: ?Site ID: [id number] ?Name: [facility] ?Address: [address] [address] ?Director: James Peres D.O., MPH Annette Christina Whitney MD MICROBIOLOGY - GENERAL ORDERABLES [facility] [phone] documented in this encounter Visit Diagnoses Diagnosis [...] CRNA) documented in this encounter Care Teams Deck Builder Relationship Specialty Start Date End Date Jasiel Freeman MD [address] [place] [phone] PCP - General Family Practice 08/15/17 documented as of this encounter
--- OUTSIDE RECORDS SUMMARY | 2024-10-24 06:37 | XMS_ITS | Encounter Summary ---
Author Organization [facility] Address [address] [place] [address] Care Team Providers Care Cosmetology Professor Name Role Phone Jasiel Freeman MD Primary Care Provider Reason for Visit * Reason Onset Date Comments Medication Change 04/21/2021 Encounter Details Date Type Department Care Team (Late st Contact Info) Description 04/21/2021 Telephone [facility] Gastroenterology [facility] [address] [facility] [address] [place] [address] Annette Whitney MD 1 [facility] [address] [place] [address] Medication Change Social History Tobacco Use Types [...] 02/13/2025 10:30 AM CDT Office Visit [facility] [place] [address] [facility] [address] [place] [address] Kitty Dover, [facility] [address] [facility] [address] [place] [address] documented as of this encounter Visit Diagnoses Not on filedocumented in this encounter Care Teams Cosmetology Professor Relationship Specialty Start Date End Date Jasiel Freeman MD [address] [place] [phone] PCP - General Family Practice 08/15/17 documented as of this encounter
--- OUTSIDE RECORDS SUMMARY | 2024-10-24 06:37 | XMS_ITS | Encounter Summary ---
Author Organization [facility] Address [address] [place] [address] Care Team Providers Care Development And Planning Engineer Name Role Phone Jasiel Freeman MD Primary Care Provider Encounter Details Date Type Department Care Team (Late st Contact Info) Description 12/07/2020 Orders Only [facility] Gastroenterology [place] [address] [place] [address] Annette Whitney MD 1 [facility] [place] [address] Ulcerative pancolitis without complication (Primary Dx) Social [...] Office Visit [facility] [place] [address] [place] [address] Kitty Dover ANP [address] [place] [address] [place] [address] documented as of this encounter Results * MISCELLANEOUS LAB TEST (12/09/2020 9:31 AM TENNIS NET MAKER) MISCELLANEOUS LAB TEST 3.2 ug/mL NON [facility] Comment:vedolizumab level SPECIMEN TYPE blood NON [facility] MISCELLANEOUS LAB TEST <25 ng NON [facility] Comment:Anti-Vedolizumab Ant ibody Blood 12/09/2020 9:31 AM TENNIS NET MAKER Annette Whitney MD CHEMISTRY [facility] [place] NON [facility] documented in this encounter Visit Diagnoses Diagnosis Ulcerative pancolitis without complication- Primary documented in this encounter Care Teams Development And Planning Engineer Relationship Specialty Start Date End Date Jasiel Freeman MD [address] [place] [phone] PCP - General Family Practice 08/15/17 documented as of this encounter
--- OUTSIDE RECORDS SUMMARY | 2024-10-24 06:38 | XMS_ITS | Encounter Summary ---
Author Organization [facility] Address [address] [place] [address] Care Team Providers Care Automation Engineering Manager Name Role Phone Jasiel Freeman MD Primary Care Provider Encounter Details Date Type Department Care Team (Late st Contact Info) Description 04/29/[address] [facility] Gastroenterology [facility] [address] [facility] [address] [place] [address] Annette Whitney MD 1 [facility] [address] [place] [address] Social History Tobacco Use Types Packs/Day Years [...] Visit [facility] [place] [address] [place] [address] Kitty Dover, MIRTA [address] [place] [address] documented as of this encounter Visit Diagnoses Not on filedocumented in this encounter Care Teams Automation Engineering Manager Relationship Specialty Start Date End Date Jasiel Freeman MD [address] [place] [phone] PCP - General Family Practice 08/15/17 documented as of this encounter
--- OUTSIDE RECORDS SUMMARY | 2024-10-24 06:38 | XMS_ITS | Encounter Summary ---
Author Organization [facility] Address [address] [place] [address] Care Team Providers Care Medical Operations Supervisor Name Role Phone Jasiel Freeman MD Primary Care Provider [phone] Reason for Visit * Reason Onset Date Comments Home Visit 08/23/2019 Encounter Details Date Type Department Care Team (Late st Contact Info) Description 08/23/2019 Patient Outreach [facility] [address] [address] Irina Wyatt, JIE Home Visit [...] the original note were not included. [facility] [address] [place] [address] Home Infusion NURSING follow up Leonidas Edgardoisaiah Elkins 1970 [address] [facility] [address] 08/23/19 Provider - Iirna Wyatt RN Driving start 1135 Driving end [...] mL 0 ??? Cyanocobalamin (NASCOBAL) 500 mcg/spray [place], Non-Aerosol 1 [place] by See Admin Instructions route every 7 days. 1 spray, 1 nostril, 1x week 1 mL 12 ??? ergocalciferol (VITAMIN D2) 50,000 unit capsule Take 1 Capsule (50,000 Units) by mouth every 7 days. For 8 weeks then once every other week. 8 Capsule 2 ??? vedolizumab (ENTYVIO) 300 mg Recon Soln Inject 300 mg by intraveous injection see administration instructions. Home VIDEO CONFERENCE SPECIALIST to administer over 30 minutes every [...] 08/08/19 18 03/21/19 16 01/24/19 16 1. [facility] assessment [...] reactions. Patient knows how to reorder medications. [facility] [...] in approximately 4 weeks for Entyvio infusion PRESIDENT FOR INSTRUCTION documented in this encounter Plan of Treatment Upcoming Encounters Date Type Department Care Team (Late st Contact Info) Description 02/13/2025 10:30 AM CDT Office Visit [facility] [place] [address] [place] [address] Kitty Dover ANP [address] [place] [address] [place] [address] documented as of this encounter Visit Diagnoses Not on filedocumented in this encounter Care Teams Medical Operations Supervisor Relationship Specialty Start Date End Date Jasiel Freeman MD [address] [place] [phone] PCP - General Family Practice 08/15/17 documented as of this encounter
--- OUTSIDE RECORDS SUMMARY | 2024-10-24 06:38 | XMS_ITS | Encounter Summary ---
Author Organization [facility] Address [address] [place] [address] Care Team Providers Care Turbine Mechanic Name Role Phone Jasiel Freeman MD Primary Care Provider Encounter Details Date Type Department Care Team (Late st Contact Info) Description 05/05/2020 Orders Only [facility] G[facility] [address] [facility] [address] [place] [address] Annette Whitney MD 1 [facility] [address] [place] [address] Ulcerative pancolitis with other complication (Primary Dx) [...] Description 02/13/2025 10:30 AM CDT Office Visit [facility]astro[facility] [place] [address] [place] [address] Kitty Dover ANP [address] [place] [address] [place] [address] documented as of this encounter Visit Diagnoses Diagnosis Ulcerative pancolitis with other complication- Primary documented in this encounter Care Teams Turbine Mechanic Relationship Specialty Start Date End Date Jasiel Freeman MD [address] [place] [phone] PCP - General Family Practice 08/15/17 documented as of this encounter
--- OUTSIDE RECORDS SUMMARY | 2024-10-24 06:38 | XMS_ITS | Encounter Summary ---
Author Organization [facility] Address [address] [place]renn: [place] [address] Care Team Providers Care Bed Worker Name Role Phone Jasiel Freeman MD [...] [place] [address] [place] [address] Kitty Dover, ANP [address] [facility] [address] [place] [address] documented as of this encounter Visit Diagnoses Not on filedocumented in this encounter Care Teams Bed Worker Relationship Specialty Start Date End Date Jasiel Freeman MD [address] [place] [phone] PCP - General Family Practice 08/15/17 documented as of this encounter
--- OUTSIDE RECORDS SUMMARY | 2024-10-24 06:38 | XMS_ITS | Encounter Summary ---
Author Organization [facility] Address [address] [place] [address] Care Team Providers Care Drier Operator Name Role Phone Jasiel Freeman MD Primary Care Provider Encounter Details Date Type Department Care Team (Late st Contact Info) Description 10/31/2019 Orders Only [facility] Gastroenterology [facility] [address] [facility] [address] [place] [address] Annette Whitney MD [address] [facility] [place] [address] Ulcerative pancolitis with complication Social History Tobacco [...] Visit [facility] IBD [facility] Gastroenterology [place] [address] [place] [address] Kitty Dover, MIRTA [address] [place] [address] documented as of this encounter [...] complication documented in this encounter Care Teams Drier Operator Relationship Specialty Start Date End Date Jasiel Freeman MD [address] [place] [phone] PCP - General Family Practice 08/15/17 documented as of this encounter
--- OUTSIDE RECORDS SUMMARY | 2024-10-24 06:38 | XMS_ITS | Encounter Summary ---
Author Organization [facility] Address [address] [place] [address] Care Team Providers Care Big Machine Consultant Name Role Phone Jasiel Freeman MD Primary Care Provider Reason for Visit * Reason Onset Date Comments Abdominal Pain 05/18/2020 Encounter Details Date Type Department Care Team (Late st Contact Info) Description 05/18/[address] [facility] G[facility]enterology [facility] [address] [facility] [facility] [address] [place] [address] Annette Whitney MD [address] [facility] [address] [place] [address] Abdominal Pain Social History Tobacco Use Types [...] last night. Please call him back at [phone] Office visit 04/29/2020 Impression/Plan: 49 yo W [...] [facility]astroenterology [facility] [place] [address] [facility] [address] [place] [address] Kitty Dover, [facility] [address] [facility] [address] [place] [address] documented as of this encounter Visit Diagnoses Not on filedocumented in this encounter Care Teams Big Machine Consultant Relationship Specialty Start Date End Date Jasiel Freeman MD [address] [place] [phone] PCP - General Family Practice 08/15/17 documented as of this encounter
--- OUTSIDE RECORDS SUMMARY | 2024-10-24 06:38 | XMS_ITS | Encounter Summary ---
Author Organization [facility] Address [address] [place] [address] Care Team Providers Care Interactive Video Technician Name Role Phone Jasiel Freeman MD Primary Care Provider [phone] Reason for Visit * Reason Comments Abdominal Pain Pt arrives to ED wit h c/o generalized abdominal pain. Hx UC and colectomy. Denies N/V/fever. Reports sent to ED from GI MD for abd CT due to abnormal XR. Encounter Details Date Type Department Care Team (Late st Contact Info) Description 05/20/2020 4:37 PM CDT - 05/20/2020 6:08 PM CDT Emergency [facility] Emergency Department [address] [place] [address] Shalonda Nuñez MD [address] [facility] [place], [place] [id number] Ulcerative pancolitis with complication (Primary Dx) Discharge [...] sent through Care Everywhere. * Ulcerative Colitis (Greek) documented in this encounter Medications at Time [...] by intraveous injection see administration instructions. Home FREELANCE WEB DESIGNER to administer over 30 minutes every 8 [...] Damon RN - 05/20/2020 4:16 PM CDT [facility] ED Adult Male Abdominal Pain Protocol [facility] Approved by: [facility] - Medical Executive Committee Approval Date: 11/07/2019 ORDERS ARE ENTERED ???PER PROTOCOL?? Nursing Orders: o Insert peripheral IV (excessive vomiting or diarrhea) Laboratory Orders: o CBC with diff ([id number]) o CMP (LAB17) o Urinalysis with Reflex Microscopy (KQX509) o Obtain lipase (LAB99) if upper abdominal pain o Draw and send extra tubes to lab (ED hold) ([id number]) Diagnostic Test Orders: o If RUQ pain, [...] by intraveous injection see administration instructions. Home FREELANCE WEB DESIGNER to administer over 30 minutes every 8 [...] ED Stay from 05/20/2020 1423 to 05/20/2020 4687 Date/Time Order Dose Route Action 05/20/2020 1729 [...] by intraveous injection see administration instructions. Home FREELANCE WEB DESIGNER to administer over 30 minutes every 8 [...] [facility] [place] [address] [place] [address] Kitty Dover, MIRTA [address] [place] [address] [place] [address] documented as of this encounter [...] to Dark Yellow 05/20/2020 6:15 PM CDT [facility] - [facility] CLARITY UA Clear Clear 05/20/2020 6:15 PM CDT [facility] SPECIFIC GRAVITY UA 1.012 1.003 - 1.035 05/20/2020 6:15 PM CDT [facility] - . [facility] PH UA 6.0 5.0 - 8.0 05/20/2020 6:15 PM CDT [facility] - . [facility] LEUKOCYTE ESTERASE UA Negative Negative 05/20/2020 6:15 PM CDT [facility] - . [facility] NITRITE UA Negative Negative 05/20/2020 6:15 PM CDT [facility] - . [facility] PROTEIN UA Negative Negative 05/20/2020 6:15 PM CDT [facility] - . [facility] GLUCOSE UA Negative Negative 05/20/2020 6:15 PM CDT [facility] KETONES UA Negative Negative 05/20/2020 6:15 PM CDT [facility] UROBILINOGEN UA Normal <2.0 mg/dL 0 6:15 PM CDT [facility] BILIRUBIN UA Negative Negative 05/20/2020 6:15 PM CDT [facility] BLOOD UA Negative Negative 05/20/2020 6:15 PM CDT [facility] Urine URINE SPECIMEN OBTAINED BY CLEAN CATCH PROCEDURE / Unknown Collection / Unknown 05/20/2020 5:31 PM CDT 05/20/2020 5:37 PM CDT Shalonda Nuñez MD URINE ORDERABLES [facility] CLIA# [id number] [address] [place] [address] * CT ABDOMEN PELVIS W CONTRAST (05/20/2020 [...] Reconstruction Technique. DICTATION LOCATION: Location 1 - [facility] Narrative 05/20/2020 8:[address] OF [...] hip prosthesis. INCIDENTAL FINDINGS: ??None. Procedure Note Krystyna Hood MD - 05/20/2020 CT OF THE [...] Reconstruction Technique. DICTATION LOCATION: Location 1 - [facility] Shalonda Nuñez MD CT ORDERABLES * (ABNORMAL) COMPREHENSIVE METABOLIC PANEL (05/20/2020 4:21 PM CDT) SODIUM 139 136 - 145 mmol/L 05/20/2020 5:11 PM CDT [facility] - [facility] POTASSIUM 4.1 3.5 - 5.0 mmol/L 05/20/2020 5:11 PM CDT [facility] CHLORIDE 103 98 - 107 mmol/L 05/20/2020 5:11 PM CDT [facility] CO2 26 22 - 29 mmol/L 05/20/2020 5:11 PM CDT [facility] CALCIUM 8.9 8.6 - 10.2 mg/dL 05/20/2020 5:11 PM CDT [facility] BUN 14 6 - 20 mg/dL 05/20/2020 5:11 PM CDT [facility] CREATININE 1.15 0.67 - 1.17 mg/dL 05/20/2020 5:11 PM CDT [facility] GLUCOSE 139(H) 74 - 99 mg/dL 05/20/2020 5:11 PM CDT [facility] TOTAL PROTEIN 7.4 6.7 - 8.6 g/dL 05/20/2020 5:11 PM CDT [facility]. [facility] ALBUMIN 4.0 3.5 - 5.2 g/dL 05/20/2020 5:11 PM CDT [facility] BILIRUBIN TOTAL 0.3 0.3 - 1.2 mg/dL 05/20/2020 5:[address] [facility] ALKALINE PHOSPHATASE 73 40 - 129 U/L 05/20/2020 5:[address] [facility] AST 45(H) <41 U/L 05/20/2020 5:[address] [facility] ALT 49(H) <42 U/L 05/20/2020 5:[address] [facility] GFR >60 >=60 mL/min/1.7 3 sq meter 05/20/2020 5:[address] [facility] Comment: eGFR has not been validated [...] 3 sq meter 05/20/2020 5:[address] [facility] ANION GAP 10 8 - 16 mmol/L 05/20/2020 5:[address] [facility] Blood Venipuncture / Unknown 05/20/2020 4:21 PM CDT 05/20/2020 4:[address] [facility] - 05/20/2020 5:11 PM CDT Samples containing indocyanine green cause interferences on Total and/or Direct Bilirubin and must not be measured. Shalonda Nuñez MD CHEMISTRY [facility]ABLES [id number] [address] [facility] [place] [id number] * (ABNORMAL) CBC WITH DIFFERENTIAL (05/20/2020 4:21 PM CDT) [facility] WBC 6.1 4.0 - 9.8 K/uL 05/20/2020 4:50 PM CDT [facility] RBC 6.08(H) 4.50 - 5.40 M/uL 05/20/2020 4:50 PM CDT [facility] HEMOGLOBIN 16.3 13.6 - 16.5 g/dL 05/20/2020 4:50 PM CDT [facility] HEMATOCRIT 53.0(H) 40.0 - 48.0 % 05/20/2020 4:50 PM CDT [facility] MCV 87.2 82.0 - 99.0 fL 05/20/2020 4:50 PM CDT [facility] MCH 26.8(L) 27.2 - 32.6 pg 05/20/2020 4:50 PM CDT [facility] MCHC 30.8(L) 31.5 - 35.5 g/dL 05/20/2020 4:50 PM CDT [facility] RDW 14.0 11.5 - 14.5 % 05/20/2020 4:50 PM CDT [facility] RDW-STDEV 44.1 37.1 - 48.7 fL 05/20/2020 4:50 PM CDT [facility] PLATELETS 345 140 - 350 K/uL 05/20/2020 4:50 PM CDT [facility] MPV 10.0 9.3 - 12.4 fL 05/20/2020 4:50 PM CDT [facility] NEUTROPHILS 74 % 05/20/2020 4:50 PM CDT [facility] LYMPHOCYTES 16 % 05/20/2020 4:50 PM CDT [facility] MONOCYTES 8 % 05/20/2020 4:50 PM CDT [facility] EOSINOPHILS 1 % 05/20/2020 4:50 PM CDT [facility] BASOPHILS 1 % 05/20/2020 4:50 PM CDT [facility] IMMATURE GRANULOCYTES 1 % 05/20/2020 4:50 PM CDT [facility] EMILY Comment:IG (Immature Granulo cyte) count includes Metamyelocytes, Myelocytes, and Promyelocytes NEUTROPHIL ABSOLUTE 4.46 1.90 - 7.00 K/uL 05/20/2020 4:50 PM CDT [facility] LYMPHOCYTE ABSOLUTE 0.98 0.70 - 4.50 K/uL 05/20/2020 4:50 PM CDT [facility] MONOCYTE ABSOLUTE 0.49 0.10 - 1.30 K/uL 05/20/2020 4:50 PM CDT [facility] EOSINOPHIL ABSOLUTE 0.07 0.00 - 0.70 K/uL 05/20/2020 4:50 PM CDT [facility] BASOPHILS ABSOLUTE 0.03 0.00 - 0.20 K/uL 05/20/2020 4:50 PM CDT [facility] IMMATURE GRANULOCYTES ABSOLUTE 0.03 0.00 - 0.03 K/uL 05/20/2020 4:50 PM CDT [facility] Blood Venipuncture / Unknown 05/20/2020 4:21 PM CDT 05/20/2020 4:30 PM CDT Shalonda Nuñez MD HEMATOLOGY ORDERABLE S [facility]# [id number] [address] [place] [address] documented in this encounter Visit Diagnoses Diagnosis [...] Willi) documented in this encounter Care Teams Interactive Video Technician Relationship Specialty Start Date End Date Jasiel Freeman MD [address] [place] [phone] PCP - General Family Practice 08/15/17 documented as of this encounter
--- OUTSIDE RECORDS SUMMARY | 2024-10-24 06:38 | XMS_ITS | Encounter Summary ---
Author Organization [facility] Address [address] [place] [address] Care Team Providers Care Turning Machine Operator Helper Name Role Phone Jasiel Freeman MD Primary Care Provider Reason for Visit * Reason Onset Date Comments Home Visit 03/09/2020 Encounter Details Date Type Department Care Team (Late st Contact Info) Description 03/09/2020 Patient Outreach [facility] Specialty and Home Infusion - [address] [place] [address] Irina Wyatt, RN Home Visit [...] [facility] [address] [place] [address] Home Infusion NURSING follow up Leonidas Elkins 1970 [address] [facility] [id number] 03/09/2020 Provider - Irina Wyatt RN Driving [...] by intraveous injection see administration instructions. Home ITEM PROCESSOR to administer over 30 minutes every 8 weeks. 300 mg 3 ??? TESTOSTERONE, BULK, MISC 1 mL by Misc.(Non-Drug; Combo Route) route. No current facility-administered medications on file prior to visit. No problem observed with learning needs - No cultural, denominational, or language barriers to learning Patient and [...] 01/13/20 16 11/19/19 16 09/23/19 16 1. long term assessment and implementation [...] [facility]astro[facility]ology [facility] [place] [address] [facility] [address] [place] [phone] Kitty Dover ANP [address] [facility] 100 [place] [phone] documented as of this encounter Visit Diagnoses Not on filedocumented in this encounter Care Teams Turning Machine Operator Helper Relationship Specialty Start Date End Date Jasiel Freeman MD [address] [place] [phone] PCP - General Family Practice 08/15/17 documented as of this encounter
--- OUTSIDE RECORDS SUMMARY | 2024-10-24 06:38 | XMS_ITS | Encounter Summary ---
Author Organization [facility] Address [address] [place] [address] Care Team Providers Care Distributor Operator Name Role Phone Jasiel Freeman MD Primary Care Provider Reason for Visit * Reason Onset Date Comments Home Visit 09/23/2019 Encounter Details Date Type Department Care Team (Late st Contact Info) Description 09/23/2019 Patient Outreach [facility] [address] [address] Irina Wyatt, JIE Home Visit [...] Comments Blood Pressure 124/82 09/23/2019 3:15 PM MOTOR VEHICLE LECTURER Pulse 85 09/23/2019 3:15 PM MOTOR VEHICLE LECTURER Temperature 36.5 ??C (97.7 ??F) 09/23/2019 3:15 PM CS T Respiratory Rate 16 09/23/2019 3:15 PM MOTOR VEHICLE LECTURER Oxygen Saturation 95% 09/23/2019 3:15 PM MOTOR VEHICLE LECTURER Inhaled Oxygen Concentration - - Weight - - Height - - Body Mass Index - - documented in this encounter Miscellaneous Notes * Telephone Encounter - Irina Wyatt RN - 09/24/2019 4:41 PM CST Images from the original note were not included. [facility] [address] [facility] [address] [place] [address] Home Infusion NURSING follow up Tamekaraad Edgardoisaiah Elkins 1970 [address] [facility] [address] 09/23/19 Provider - Irina Wyatt RN Driving [...] mL 0 ??? Cyanocobalamin (NASCOBAL) 500 mcg/spray [place], Non-Aerosol 1 [place] by See Admin Instructions route every 7 days. 1 spray, 1 nostril, 1x week 1 mL 12 ??? ergocalciferol (VITAMIN D2) 50,000 unit capsule Take 1 Capsule (50,000 Units) by mouth every 7 days. For 8 weeks then once every other week. 8 Capsule 2 ??? vedolizumab (ENTYVIO) 300 mg Recon Soln Inject 300 mg by intraveous injection see administration instructions. Home COMPUTER SYSTEMS INTEGRATOR to administer over 30 minutes every 8 [...] 08/23/19 16 08/08/19 18 03/21/19 16 1. care home assessment and implementation of [...] in approximately 8 weeks for Entyvio infusion R VEHICLE LECTURER documented in this encounter Plan of Treatment Upcoming Encounters Date Type Department Care Team (Late st Contact Info) Description 02/13/2025 10:30 AM CDT Office Visit [facility] [place] [address] [facility] [address] [place] [phone] Kitty Dover ANP [address] [facility] 100 [place] [phone] documented as of this encounter Visit Diagnoses Not on filedocumented in this encounter Care Teams Distributor Operator Relationship Specialty Start Date End Date Jasiel Freeman MD [address] [place] [phone] PCP - General Family Practice 08/15/17 documented as of this encounter
--- OUTSIDE RECORDS SUMMARY | 2024-10-24 06:38 | XMS_ITS | Encounter Summary ---
Author Organization [facility] Address [address] [place] [address] Care Team Providers Care Practice Assistant Name Role Phone Jasiel Freeman MD Primary Care Provider Encounter Details Date Type Department Care Team (Late Contact Info) Description 08/13/2019 Abstract [facility] Gastroenterology [facility] [address] [facility] [address] [place] [address] Annette Whitney MD 1 [facility] [place] [phone] Social History Tobacco Use Types Packs/Day Years [...] [facility] [place] [address] [facility] [address] [place] [address] Kitty Dover, ANP [address] [facility] 100 [place] [address] documented as of this encounter Visit Diagnoses Not on filedocumented in this encounter Care Teams Practice Assistant Relationship Specialty Start Date End Date Jasiel Freeman MD [address] [place] [phone] PCP - General Family Practice 08/15/17 documented as of this encounter
--- OUTSIDE RECORDS SUMMARY | 2024-10-24 06:38 | XMS_ITS | Encounter Summary ---
Author Organization [facility] Address [address] [facility] [address] [place]renn: [place] [phone] Care Team Providers Care Software Tester Name Role Phone Jasiel Freeman MD [...] [facility] [place] [address] [place] [address] Kitty Dover, ANP [address] [facility] 100 [place] [address] documented as of this encounter Visit Diagnoses Not on filedocumented in this encounter Care Teams Software Tester Relationship Specialty Start Date End Date Jasiel Freeman MD [address] [place] [phone] PCP - General Family Practice 08/15/17 documented as of this encounter
--- OUTSIDE RECORDS SUMMARY | 2024-10-24 06:38 | XMS_ITS | Encounter Summary ---
Author Organization [facility] Address [address] [place] [address] Care Team Providers Care Malted Milk Mixer Name Role Phone Jasiel Freeman MD Primary Care Provider Encounter Details Date Type Department Care Team (Late st Contact Info) Description 08/23/2019 Abstract [facility] G[facility] [place] [address] [facility] [address] [place] [address] Joaquina Prescott, RN Social History [...] [facility] [place] [address] [place] [address] Kitty Dover, MIRTA [address] [place] [address] documented as of this encounter Visit Diagnoses Not on filedocumented in this encounter Care Teams Malted Milk Mixer Relationship Specialty Start Date End Date Jasiel Freeman MD [address] [place] [phone] PCP - General Family Practice 08/15/17 documented as of this encounter
--- OUTSIDE RECORDS SUMMARY | 2024-10-24 06:38 | XMS_ITS | Encounter Summary ---
Author Organization [facility] Address [address] [place] [address] Care Team Providers Care Roof Tiler Name Role Phone Jasiel Freeman MD Primary Care Provider [phone] Reason for Visit * Reason Onset Date Comments Flare triage 10/11/2019 Encounter Details Date Type Department Care Team (Late st Contact Info) Description 10/11/2019 Telephone [facility] Gastroenterology [facility] [address] [facility] [address] [place] [address] Annette Whitney MD 1 [facility] DIV IM GASTROENTEROLOG[place] [address] Flare triage Social History Tobacco Use Types [...] Annette Whitney MD - 10/25/2019 11:49 AM DRY STARCH OPERATOR Can you check in with Edgardo. I do not see that the labs we have recommended have been done. Thanks STARCH OPERATOR * Telephone Encounter - Joaquina Prescott RN - 10/11/2019 12:40 PM DRY STARCH OPERATOR Edgardo is having some increase in symptoms. He is on entyvio, has been re- initiated due to insurance taking a while to get approved for his home infusions. He lives in [place]. Labs would need to be obtained by the PCP but he is unsure when he can get there. Will order CBC, CMP, CRP and C.diff for non- [facility]. His most concerning symptom is the [...] 10) Are you having any chills? No STARCH OPERATOR documented in this encounter Plan of Treatment Upcoming Encounters Date Type Department Care Team (Late st Contact Info) Description 02/13/2025 10:30 AM CDT Office Visit [facility] [place] [address] [place] [address] Kitty Dover, MIRTA [address] [place] [address] documented as of this [...] Primary documented in this encounter Care Teams Roof Tiler Relationship Specialty Start Date End Date Jasiel Freeman MD [address] [place] [phone] PCP - General Family Practice 08/15/17 documented as of this encounter
--- OUTSIDE RECORDS SUMMARY | 2024-10-24 06:38 | XMS_ITS | Encounter Summary ---
Author Organization [facility] Address [address] [place] [address] Care Team Providers Care Laboratory Geneticist Name Role Phone Jasiel Freeman MD Primary Care Provider [phone] Encounter Details Date Type Department Care Team (Latest Contact Info) Description 04/29/2020 11:04 AM CDT - 04/29/2020 11:59 PM CDT Hospital Encounter [facility] Laboratory Services [facility] [place] [address] [facility], [place] [address] Annette Whitney MD [address] [facility] [facility] [address] [address] DIV [place] [address] Discharge Disposition: Home or Self Care Social [...] by intraveous injection see administration instructions. Home ROTARY DRIER FEEDER to administer over 30 minutes every 8 weeks. 300 mg 3 07/31/2019 11/14/2022 documented as of this encounter Plan of Treatment Upcoming Encounters Date Type Department Care Team (Late st Contact Info) Description 02/13/2025 10:30 AM CDT Office Visit [facility] IBD and Gastroenterology [facility] [place] Wright[address] [facility] [address] [place] [address] Kitty Dover, ANP [address] [facility] [address] [place] [address] documented as of this encounter [...] TB GOLD (04/29/2020 11:09 AM CDT) Pathologist [facility] [place] QUANTIFERON TB GOLD PLUS SEE COMMENTS 05/01/2020 7:02 PM CDT [facility] Comment: QuantiFERON-Tb Gold Plus, B was cancelled on 05/01/2020 at 19:02; One or more of collection tubes was under-filled (<0.8 mL sample). TB1 AG - NIL SEE COMMENTS 05/01/2020 7:02 PM CDT [facility] Comment: QuantiFERON-Tb Gold Plus, B was cancelled on 05/01/2020 at 19:02; One or more of collection tubes was under-filled (<0.8 mL sample). TB2 AG - NIL SEE COMMENTS 05/01/2020 7:02 PM CDT [facility] Comment: QuantiFERON-Tb Gold Plus, B was cancelled on 05/01/2020 at 19:02; One or more of collection tubes was under-filled (<0.8 mL sample). MITOGEN-NIL SEE COMMENTS 05/01/2020 7:02 PM CDT [facility] Comment: QuantiFERON-Tb Gold Plus, B was cancelled on 05/01/2020 at 19:02; One or more of collection tubes was under-filled (<0.8 mL sample). NIL SEE COMMENTS 05/01/2020 7:02 PM CDT [facility] Comment: QuantiFERON-Tb Gold Plus, B was cancelled on 05/01/2020 at 19:02; One or more of collection tubes was under-filled (<0.8 mL sample). Test Performed by: [facility] [address] [place] [address] Prepress Specialist: James Oliveira M.D. Ph.D.; CLIA# [id number] Blood Venipuncture / Unknown 04/29/2020 11:09 AM CDT 04/29/2020 11:39 AM CDT Annette Whitney MD CHEMISTRY ORDE SHREYAS [facility] * (ABNORMAL) VITAMIN D 25 HYDROXY (04/29/2020 11:09 AM CDT) Pathologist [facility] [place] VITAMIN D TOTAL (25OH) 21(L) 30 - 100 ng/mL 04/29/2020 12:38 PM CDT [facility] Blood Venipuncture / Unknown 04/29/2020 11:09 AM CDT 04/29/2020 11:39 AM CDT Narrative [facility] - 04/29/2020 12:38 PM CDT Interpretive Data Chart: Deficient: ? 0 - 20 ng/mL Insufficient: ?21 - 29 ng/mL Sufficient: ?30 - 100 ng/mL Increased Risk of Hypercalciuria: ??>100 ng/ml Toxic: ? >150 ng/ml Annette Whitney MD CHEMISTRY ORDToño PRITCHETT Performing Organization Address [facility] de Phone Number [facility]# [id number] [address] [place] [address] * VITAMIN B12 LEVEL (04/29/2020 11:09 AM CDT) Pathologist [facility] [place] VITAMIN B12 321 232-1,245 pg/mL 04/29/2020 12:38 PM CDT [facility] LABORATORY SERVICES [facility] Comment:It has been reported that between [...] SHELBY PRITCHETT Performing Organization Address [facility] Co de Phone Number [facility] [employer]# [id number] [address] [place] [address] * (ABNORMAL) COMPREHENSIVE METABOLIC PANEL (04/29/2020 11:09 AM CDT) Pathologist [facility] [place] SODIUM 140 136 - 145 mmol/L 04/29/2020 12:23 PM CDT [facility] - [facility] POTASSIUM 3.8 3.5 - 5.0 mmol/L 04/29/2020 12:23 PM CDT [facility] - [facility] CHLORIDE 102 98 - 107 mmol/L 04/29/2020 12:23 PM CDT [facility] LABORATORY SERVICES - [facility] CO2 24 22 - 29 mmol/L 04/29/2020 12:23 PM CDT [facility] - [facility] CALCIUM 8.8 8.6 - 10.2 mg/dL 04/29/2020 12:23 PM CDT [facility] [facility] LABORATORY SERVICES - . [facility] BUN 13 6 - 20 mg/dL 04/29/2020 12:23 PM T [facility] [facility] LABORATORY SERVICES - . [facility] CREATININE 1.19(H) 0.67 - 1.17 mg/dL 04/29/2020 12:23 PM CDT [facility] LABORATORY SERVICES - . [facility] GLUCOSE 83 74 - 99 mg/dL 04/29/2020 12:23 PM T [facility] LABORATORY SERVICES - [facility] TOTAL PROTEIN 7.1 6.7 - 8.6 g/dL 04/29/2020 12:23 PM T [facility] LABORATORY SERVICES - [facility] ALBUMIN 3.8 3.5 - 5.2 g/dL 04/29/2020 12:23 PM T [employer] LABORATORY SERVICES - . [facility] BILIRUBIN TOTAL 0.4 0.3 - 1.2 mg/dL 04/29/2020 12:23 PM T [facility] LABORATORY SERVICES - . [facility] ALKALINE PHOSPHATASE 60 40 - 129 U/L 04/29/2020 12:23 PM T [employer] LABORATORY SERVICES - . [facility] AST 19 <41 U/L 04/29/2020 12:23 PM T [facility] LABORATORY SERVICES - . [facility] ALT 19 <42 U/L 04/29/2020 12:23 PM T [employer] LABORATORY SERVICES - . [facility] GFR >60 >=60 mL/min/1.7 3 sq meter 04/29/2020 12:23 PM T [facility] LABORATORY SERVICES - [facility] Comment: eGFR has not been validated [...] 3 sq meter 04/29/2020 12:23 PM CDT [employer] LABORATORY SERVICES - . [facility] ANION GAP 14 8 - 16 mmol/L 04/29/2020 12:23 PM CDT [facility] LABORATORY [facility] Blood Venipuncture / Unknown 04/29/2020 11:09 AM CDT 04/29/2020 11:39 AM CDT Narrative [facility] LABORATORY [facility] - 04/29/2020 12:23 PM CDT Samples containing indocyanine green cause interferences on Total and/or Direct Bilirubin and must not be measured. Annette Whitney MD CHEMISTRY ORDToño PRITCHETT [facility] CLIA# [id number] [address] [place] [address] * C-REACTIVE PROTEIN (04/29/2020 11:09 AM CDT) Pathologist [facility] [place] CRP 2.6 <5.0 mg/L 04/29/2020 12:23 PM CDT [facility] Blood Venipuncture / Unknown 04/29/2020 11:09 AM CDT 04/29/2020 11:39 AM CDT Annette Whitney MD CHEMISTRY ORDToño PRITCHETT [facility] CLIA# [id number] [address] [place] [address] * (ABNORMAL) CBC WITH DIFFERENTIAL (04/29/2020 11:09 AM CDT) WBC 6.8 4.0 - 9.8 K/uL 04/29/2020 11:57 AM CDT [facility] LABORATORY [facility] RBC 6.26(H) 4.50 - 5.40 M/uL 04/29/2020 11:57 AM CDT [facility] LABORATORY [facility] HEMOGLOBIN 16.6(H) 13.6 - 16.5 g/dL 04/29/2020 11:57 AM CDT [facility] LABORATORY [facility] HEMATOCRIT 53.8(H) 40.0 - 48.0 % 04/29/2020 11:57 AM CDT [facility] LABORATORY SERVICES - [facility] MCV 85.9 82.0 - 99.0 fL 04/29/2020 11:57 AM CDT [facility] LABORATORY SERVICES - [facility] MCH 26.5(L) 27.2 - 32.6 pg 04/29/2020 11:57 AM CDT [facility] LABORATORY SERVICES - [facility] MCHC 30.9(L) 31.5 - 35.5 g/dL 04/29/2020 11:57 AM CDT [facility] LABORATORY SERVICES - [facility] RDW 15.8(H) 11.5 - 14.5 % 04/29/2020 11:57 AM CDT [facility] LABORATORY SERVICES - [facility] RDW-STDEV 48.7 37.1 - 48.7 fL 04/29/2020 11:57 AM CDT [facility]ORATORY SERVICES - [facility] PLATELETS 294 140 - 350 K/uL 04/29/2020 11:57 AM CDT [facility]ATORY SERVICES - [facility] MPV 10.1 9.3 - 12.4 fL 04/29/2020 11:57 AM CDT [facility] SERVICES - [facility] NEUTROPHILS 69 % 04/29/2020 11:57 AM CDT [facility] SERVICES - [facility] LYMPHOCYTES 18 % 04/29/2020 11:57 AM CDT [facility] LABORATORY SERVICES - . [facility] MONOCYTES 11 % 04/29/2020 11:57 AM CDT [facility]ORATORY SERVICES - [facility] EOSINOPHILS 2 % 04/29/2020 11:57 AM CDT [facility] SERVICES - [facility] BASOPHILS 1 % 04/29/2020 11:57 AM CDT [facility] LABORATORY SERVICES - . [facility] IMMATURE GRANULOCYTES 0 % 04/29/2020 11:57 AM CDT [facility] LABORATORY SERVICES - [facility] NEUTROPHIL ABSOLUTE 4.67 1.90 - 7.00 K/uL 04/29/2020 11:57 AM CDT [facility] LABORATORY SERVICES - . [facility] LYMPHOCYTE ABSOLUTE 1.21 0.70 - 4.50 K/uL 04/29/2020 11:57 AM CDT [facility] LABORATORY SERVICES - . [facility] MONOCYTE ABSOLUTE 0.72 0.10 - 1.30 K/uL 04/29/2020 11:57 AM CDT [facility] LABORATORY SERVICES - . [facility] EOSINOPHIL ABSOLUTE 0.13 0.00 - 0.70 K/uL 04/29/2020 11:57 AM CDT [facility] LABORATORY SERVICES - [facility] BASOPHILS ABSOLUTE 0.04 0.00 - 0.20 K/uL 04/29/2020 11:57 AM CDT [facility] LABORATORY SERVICES - [facility] IMMATURE GRANULOCYTES ABSOLUTE 0.02 0.00 - 0.03 K/uL 04/29/2020 11:57 AM CDT [facility] LABORATORY SERVICES - [facility] Blood Venipuncture / Unknown 04/29/2020 11:09 AM CDT 04/29/2020 11:39 AM CDT Annette Whitney MD HEMATOLOGY ORD ERABLES [facility] LABORATORY SERVICES [facility]# [id number] [place] [place] [address] documented in this encounter Visit Diagnoses Diagnosis Ulcerative pancolitis with other complication documented in this encounter Care Teams Laboratory Geneticist Relationship Specialty Start Date End Date Jasiel Freeman MD [address] [place] [address] PCP - General Family Practice 08/15/17 documented as of this encounter
--- OUTSIDE RECORDS SUMMARY | 2024-10-24 06:38 | XMS_ITS | Encounter Summary ---
Author Organization [facility] Address [address] [place]renn: [place] [address] Care Team Providers Care Retail Grocer Name Role Phone Jasiel Freeman MD Primary Care Provider [phone] Encounter Details Date Type Department Care Team [...] [facility] IBD and Gastroenterology Center [place] [address] [place] [address] Kitty Dover, ANP [address] [facility] [address] [place] [address] documented as of this encounter Visit Diagnoses Not on filedocumented in this encounter Care Teams Retail Grocer Relationship Specialty Start Date End Date Jasiel Freeman MD [address] [place] [phone] PCP - General Family Practice 08/15/17 documented as of this encounter
--- OUTSIDE RECORDS SUMMARY | 2024-10-24 06:38 | XMS_ITS | Encounter Summary ---
Author Organization [facility] Address [address] [place] [address] Care Team Providers Care Can Line Operator Name Role Phone Jasiel Freeman MD Primary Care Provider [phone] Reason for Visit * Reason Onset Date [...] (Late st Contact Info) Description 03/11/2020 Telephone [facility] Specialty and Home Infusion - [address] [facility] [place] [address] Irina Wyatt RN IV Med (Called [...] AM CDT Office Visit [facility] IBD and Gastroenterology Center [place] [address] [facility] [address] [place] [phone] Kitty Dover, MIRTA [address] [facility] [address] [place] [address] documented as of this encounter Visit Diagnoses Not on filedocumented in this encounter Care Teams Can Line Operator Relationship Specialty Start Date End Date Jasiel Freeman MD [address] [place] [phone] PCP - General Family Practice 08/15/17 documented as of this encounter
--- OUTSIDE RECORDS SUMMARY | 2024-10-24 06:38 | XMS_ITS | Encounter Summary ---
Author Organization [facility] Address [address] [address] [place] [address] Care Team Providers Care Cobol Mainframe Developer Name Role Phone Jasiel Freeman MD Primary Care Provider Reason for Visit * Reason Onset Date Comments clarification 11/18/2019 Encounter Details Date Type Department Care Team (Late st Contact Info) Description 11/18/2019 Telephone [facility] Gastroenterology [facility] [address] [facility] [facility] [address] [place] [address] Annette Whitney MD [address] [facility] [address] [place] [address] clarification Social History Tobacco Use Types Packs/Day [...] every other week which is the same EL ENGINE PIPE FITTER documented in this encounter Plan of Treatment Upcoming Encounters Date Type Department Care Team (Late st Contact Info) Description 02/13/2025 10:30 AM CDT Office Visit [facility] IBD and Gastroenterology Center [place] [address] [place] [address] Kitty Dover, MIRTA [address] [place] [address] documented as of this encounter Visit Diagnoses Not on filedocumented in this encounter Care Teams Cobol Mainframe Developer Relationship Specialty Start Date End Date Jasiel Freeman MD [address] [place] [phone] PCP - General Family Practice 08/15/17 documented as of this encounter
--- OUTSIDE RECORDS SUMMARY | 2024-10-24 06:38 | XMS_ITS | Encounter Summary ---
Author Organization [facility] Address [address] [place] [address] Care Team Providers Care Recruiter Name Role Phone Jasiel Freeman MD Primary Care Provider Reason for Visit * Reason Onset Date Comments Home Visit 11/19/2019 Encounter Details Date Type Department Care Team (Late st Contact Info) Description 11/19/2019 Patient Outreach [facility] [address] [address] Irina Wyatt, JIE Home Visit [...] Comments Blood Pressure 134/88 11/19/2019 1:15 PM CANDLE MAKER Pulse 99 11/19/2019 2:00 PM CANDLE MAKER Temperature 36.2 ??C (97.1 ??F) 11/19/2019 2:00 PM CS T Respiratory Rate 16 11/19/2019 2:00 PM CANDLE MAKER Oxygen Saturation 96% 11/19/2019 2:00 PM CANDLE MAKER Inhaled Oxygen Concentration - - Weight - - Height - - Body Mass Index - - documented in this encounter Miscellaneous Notes * Telephone Encounter - Irina Wyatt RN - 11/21/2019 9:54 PM CST Images from the original note were not included. [facility] [address] [facility] [address] [place] [address] Home Infusion NURSING follow up Leonidas Edgardoisaiah Elkins 1970 [address] [facility] [address] 11/19/19 Provider - Irina Wyatt RN Driving [...] by intraveous injection see administration instructions. Home SALT MAKER to administer over 30 minutes every 8 weeks. 300 mg 3 ??? TESTOSTERONE, BULK, MISC 1 mL by Misc.(Non-Drug; Combo Route) route. No current facility-administered medications on file prior to visit. No problem observed with learning needs - No cultural, christianity, or language barriers to learning Patient and [...] reactions. Patient knows how to reorder medications. [facility] will dispense [...] approximately 8 weeks for Entyvio infusion LE MAKER documented in this encounter Plan of Treatment Upcoming Encounters Date Type Department Care Team (Late st Contact Info) Description 02/13/2025 10:30 AM CDT Office Visit [facility] IBD and Gastroenterology Center [place] [address] [place] [address] Kitty Dover ANP [address] [place] [address] documented as of this encounter Visit Diagnoses Not on filedocumented in this encounter Care Teams Recruiter Relationship Specialty Start Date End Date Jasiel Freeman MD [address] [place] [phone] PCP - General Family Practice 08/15/17 documented as of this encounter
--- OUTSIDE RECORDS SUMMARY | 2024-10-24 06:38 | XMS_ITS | Encounter Summary ---
Author Organization [facility] Address [address] [place] [address] Care Team Providers Care Harness Repairer Name Role Phone Jasiel Freeman MD Primary Care Provider Reason for Referral * Eval and Treat (Routine) - Closed Specialty Diagnoses / Procedures Referred By Contact Referred To Contact Gastroenterology / Perioperative Diagnoses Ulcerative pancolitis with other complication Annette Whitney MD 1 [facility] [place] [address] Annette Whitney MD 1 [facility] [place] [address] Referral ID Status Reason Start Date Expiration Date V isits Requested Visits Authorized [id number] Closed CRS To Schedule (STL) 05/26/2020 05/26/2021 3 3 Reason for Visit * Reason Comments Crohn's Disease Encounter Details Date Type Department Care Team (Latest Contact Info) Description 04/29/2020 2:50 PM CDT Office Visit [facility] Gastroenterology [facility] [address] [facility] [address] [place] [address] Annette Whitney MD [address] [facility] DIV IM [place] [address] Ulcerative pancolitis with other complication (Primary Dx) [...] / male : 1970 Date: 04/29/2020 CSN: [id number] Referring Physician:Jasiel Freeman MD PCP: Jasiel Freeman [...] by intraveous injection see administration instructions. Home MANAGER OF GLOBAL to administer over 30 minutes every 8 [...] much for this consultation. Annette Whitney MD [facility] Digestive Diseases CC: Jasiel Freeman MD [...] Visit [facility] [place] [address] [place] [address] Kitty Dover ANP [address] [place] [address] Scheduled Referrals Name Type Priority Associated Diagnoses Order Schedule AMB REFERRAL TO GASTROENTEROLOGY Outpatient Referral Routine Ulcerative pancolitis with other complication Ordered: 04/29/2020 documented as of this encounter Results * QUANTIFERON TB GOLD (04/29/2020 11:09 AM CDT) QUANTIFERON TB GOLD PLUS SEE COMMENTS 05/01/2020 7:02 PM CDT [facility] Comment: QuantiFERON-Tb Gold Plus, B was cancelled on 05/01/2020 at 19:02; One or more of collection tubes was under-filled (<0.8 mL sample). TB1 AG - NIL SEE COMMENTS 05/01/2020 7:02 PM CDT [facility] Comment: QuantiFERON-Tb Gold Plus, B was cancelled on 05/01/2020 at 19:02; One or more of collection tubes was under-filled (<0.8 mL sample). TB2 AG - NIL SEE COMMENTS 05/01/2020 7:02 PM CDT [facility] Comment: QuantiFERON-Tb Gold Plus, B was cancelled on 05/01/2020 at 19:02; One or more of collection tubes was under-filled (<0.8 mL sample). MITOGEN-NIL SEE COMMENTS 05/01/2020 7:02 PM CDT [facility] Comment: QuantiFERON-Tb Gold Plus, B was cancelled on 05/01/2020 at 19:02; One or more of collection tubes was under-filled (<0.8 mL sample). NIL SEE COMMENTS 05/01/2020 7:02 PM CDT [facility] Comment: QuantiFERON-Tb Gold Plus, B was cancelled on 05/01/2020 at 19:02; One or more of collection tubes was under-filled (<0.8 mL sample). Test Performed by: [facility] [address] [place] [address] Meteorology Teacher: James Oliveira M.D. Ph.D.; CLIA# [id number] Blood Venipuncture / Unknown 04/29/2020 11:09 AM CDT 04/29/2020 11:39 AM CDT Annette Whitney MD CHEMISTRY SHELBY PRITCHETT [facility] * (ABNORMAL) VITAMIN D 25 HYDROXY (04/29/2020 11:09 AM CDT) VITAMIN D TOTAL (25OH) 21(L) 30 - 100 ng/mL 04/29/2020 12:38 PM CDT [facility] Blood Venipuncture / Unknown 04/29/2020 11:09 AM CDT 04/29/2020 11:39 AM CDT Narrative [facility] - 04/29/2020 12:38 PM CDT Interpretive Data Chart: Deficient: ? 0 - 20 ng/mL Insufficient: ?21 - 29 ng/mL Sufficient: ?30 - 100 ng/mL Increased Risk of Hypercalciuria: ??>100 ng/ml Toxic: ? >150 ng/ml Annette Whitney MD CHEMISTRY [employer] Performing Organization Address [facility] Co de Phone Number [facility] noodls [facility]# [id number] [address] [place] [address] * VITAMIN B12 LEVEL (04/29/2020 11:09 AM CDT) VITAMIN B12 321 232-1,245 pg/mL 04/29/2020 12:38 PM CDT [facility] Comment:It has been reported that between 5 to 10% of patients with values between 200 and 400 pg/mL may experience neuropsychiatric and hematologic abnormalities due to occult B12 deficiency. Less than 1% of patients with values above 400 pg/mL will have symptoms. Blood Venipuncture / Unknown 04/29/2020 11:09 AM CDT 04/29/2020 11:39 AM CDT Annette Whitney MD CHEMISTRY ORDE [employer] Performing Organization Address [facility] Co de Phone Number [facility] nood[facility]# [id number] [facility] [place] [address] [place] [address] * (ABNORMAL) COMPREHENSIVE METABOLIC PANEL (04/29/2020 11:09 AM CDT) SODIUM 140 136 - 145 mmol/L 04/29/2020 12:23 PM CDT [facility] POTASSIUM 3.8 3.5 - 5.0 mmol/L 04/29/2020 12:23 PM CDT [facility] CHLORIDE 102 98 - 107 mmol/L 04/29/2020 12:23 PM CDT [facility] CO2 24 22 - 29 mmol/L 04/29/2020 12:23 PM CDT [facility] CALCIUM 8.8 8.6 - 10.2 mg/dL 04/29/2020 12:23 PM CDT [facility] BUN 13 6 - 20 mg/dL 04/29/2020 12:23 PM [facility] CREATININE 1.19(H) 0.67 - 1.17 mg/dL 04/29/2020 12:23 PM [facility] - . [facility] GLUCOSE 83 74 - 99 mg/dL 04/29/2020 12:23 PM [facility] - . [facility] TOTAL PROTEIN 7.1 6.7 - 8.6 g/dL 04/29/2020 12:23 PM [facility] - . [facility] ALBUMIN 3.8 3.5 - 5.2 g/dL 04/29/2020 12:23 PM [facility] - . [facility] BILIRUBIN TOTAL 0.4 0.3 - 1.2 mg/dL 04/29/2020 12:23 PM [facility] ALKALINE PHOSPHATASE 60 40 - 129 U/L 04/29/2020 12:23 PM [facility] - . [facility] AST 19 <41 U/L 04/29/2020 12:23 PM [facility] - . [facility] ALT 19 <42 U/L 04/29/2020 12:23 PM [facility] GFR >60 >=60 mL/min/1.7 3 sq meter 04/29/2020 12:23 PM [facility] Comment: eGFR has not been validated [...] 3 sq meter 04/29/2020 12:23 PM T [facility] ANION GAP 14 8 - 16 mmol/L 04/29/2020 12:23 PM [facility] Blood Venipuncture / Unknown 04/29/2020 11:09 AM CDT 04/29/2020 11:39 AM CDT Narrative [facility] - 04/29/2020 12:23 PM CDT Samples containing indocyanine green cause interferences on Total and/or Direct Bilirubin and must not be measured. Annette Whitney MD CHEMISTRY ORDToño PRITCHETT [facility] CLIA# [id number] [address] [place] [address] * C-REACTIVE PROTEIN (04/29/2020 11:09 AM CDT) [facility] CRP 2.6 <5.0 mg/L 04/29/2020 12:23 PM CDT [facility] Blood Venipuncture / Unknown 04/29/2020 11:09 AM CDT 04/29/2020 11:39 AM CDT Annette Whitney MD CHEMISTRY ORDToño PRITCHETT Performing Organization Address City/[facility]/ZIP Co de Phone Number [facility] CLIA# [id number] [address] [place] [address] * (ABNORMAL) CBC WITH DIFFERENTIAL (04/29/2020 11:09 AM CDT) Pathologist [facility] WBC 6.8 4.0 - 9.8 K/uL 04/29/2020 11:57 AM CDT [facility] RBC 6.26(H) 4.50 - 5.40 M/uL 04/29/2020 11:57 AM CDT [facility] HEMOGLOBIN 16.6(H) 13.6 - 16.5 g/dL 04/29/2020 11:57 AM CDT [facility] HEMATOCRIT 53.8(H) 40.0 - 48.0 % 04/29/2020 11:57 AM CDT [facility] MCV 85.9 82.0 - 99.0 fL 04/29/2020 11:57 AM CDT [facility] MCH 26.5(L) 27.2 - 32.6 pg 04/29/2020 11:57 AM CDT [facility] MCHC 30.9(L) 31.5 - 35.5 g/dL 04/29/2020 11:57 AM CDT [facility] RDW 15.8(H) 11.5 - 14.5 % 04/29/2020 11:57 AM CDT [facility] RDW-STDEV 48.7 37.1 - 48.7 fL 04/29/2020 11:57 AM CDT [facility] PLATELETS 294 140 - 350 K/uL 04/29/2020 11:57 AM CDT [facility] MPV 10.1 9.3 - 12.4 fL 04/29/2020 11:57 AM CDT [facility] NEUTROPHILS 69 % 04/29/2020 11:57 AM CDT [facility] LYMPHOCYTES 18 % 04/29/2020 11:57 AM CDT [facility] MONOCYTES 11 % 04/29/2020 11:57 AM CDT [facility] EOSINOPHILS 2 % 04/29/2020 11:57 AM CDT [facility] BASOPHILS 1 % 04/29/2020 11:57 AM CDT [facility] IMMATURE GRANULOCYTES 0 % 04/29/2020 11:57 AM CDT [facility] NEUTROPHIL ABSOLUTE 4.67 1.90 - 7.00 K/uL 04/29/2020 11:57 AM CDT [facility] LYMPHOCYTE ABSOLUTE 1.21 0.70 - 4.50 K/uL 04/29/2020 11:57 AM CDT [facility] MONOCYTE ABSOLUTE 0.72 0.10 - 1.30 K/uL 04/29/2020 11:57 AM CDT [facility] EOSINOPHIL ABSOLUTE 0.13 0.00 - 0.70 K/uL 04/29/2020 11:57 AM CDT [facility] BASOPHILS ABSOLUTE 0.04 0.00 - 0.20 K/uL 04/29/2020 11:57 AM CDT [facility] IMMATURE GRANULOCYTES ABSOLUTE 0.02 0.00 - 0.03 K/uL 04/29/2020 11:57 AM CDT [facility] Blood Venipuncture / Unknown 04/29/2020 11:09 AM CDT 04/29/2020 11:39 AM CDT Annette Whitney MD HEMATOLOGY ORD ERABLES [facility] CLIA# [id number] [address] [facility] [place] [address] documented in this encounter Visit Diagnoses Diagnosis Ulcerative pancolitis with other complication- Primary documented in this encounter Care Teams Harness Repairer Relationship Specialty Start Date End Date Jasiel Freeman MD [address] [place] [phone] PCP - General Family Practice 08/15/17 documented as of this encounter
--- OUTSIDE RECORDS SUMMARY | 2024-10-24 06:38 | XMS_ITS | Encounter Summary ---
Author Organization [facility] Address [address] [place] [address] Care Team Providers Care Systems Security Analyst Name Role Phone Jasile Freeman MD Primary Care Provider Reason for Visit * Reason Onset Date Comments Results 05/20/2020 Encounter Details Date Type Department Care Team (Late st Contact Info) Description 05/20/2020 Telephone [facility] Gastroenterology [facility] [address] [address] Gilma Marcos PA [address] [facility] [address] [place] [address] Results Social History Tobacco Use [...] Description 02/13/2025 10:30 AM CDT Office Visit [facility]astro[facility]ology [facility] [place] [address] [facility] [address] [place] [phone] Kitty Dover, MIRTA [address] [place] [address] [place] [address] documented as of this encounter Visit Diagnoses Not on filedocumented in this encounter Care Teams Systems Security Analyst Relationship Specialty Start Date End Date Jasiel Freeman MD [address] [place] [address] PCP - General Family Practice 08/15/17 documented as of this encounter
--- OUTSIDE RECORDS SUMMARY | 2024-10-24 06:38 | XMS_ITS | Encounter Summary ---
Author Organization [facility] Address [address] [place] [address] Care Team Providers Care Test Developer Name Role Phone Jasiel Freeman MD Primary Care Provider Encounter Details Date Type Department Care Team (Late st Contact Info) Description 08/19/2019 Specialty Pharmacy [facility] [place] [address] [place] [address] Thanh Solares, PHARMACIST Social History Tobacco Use [...] Progress Notes * Thanh Solares, PHARMACIST - 08/19/2019 10:16 AM CDT Images from the original note were not included. [facility] [place] Edgardo Georgette Elkins 48 y.o. / male Patient's address on file: [address] [address] Home Phone Work Phone Home Infusion Order [...] (through 05/26/19) Per: Caren / KESHA Whitney [facility] Gastroenterology [address] [place] [address] Generic substitution permitted Detailed Home Infusion Orders [...] RN will take any ordered labs to [facility] when possible. If labs are not taken to a [facility] lab, it is the responsibility of nursing to make sure labs are faxed to the pharmacy at [phone] Whitney. Catheter Care Catheter type: PIV placed by GLASS ROBOT OPERATOR prior to each infusion Flush IV [...] lab draws/line complications. ?? Flushes provided by [facility] pharmacy are [...] Elkins (48 y.o. male) is active with [facility] services receiving Entyvio every 8 weeks at home for ulcerative colitis. ?? Edgardo is due for his next infusion this week. Pharmacist contacted GLASS ROBOT OPERATOR to coordinate delivery. RN will pickle water pump operator today. Patient received last infusion without issue. No questions or concerns at this time. Patient has appointment with Dr. Nair on 01/29. 05/13/19 - Spoke with the patient who stated he is doing well. He has had no changes in his medication therapy or no clinical issues. Will ship medications and supplies to the patient. Thanh Solares MBA, [facility] 08/08/19 - Patient to receive infusion of Entyvio today after an insurance issue. Will send medications and supplies for the infusion. JEANNA 08/19/19 - Confirmed with the nurse special education case manager that the patient was scheduled [...] [facility] Infusion Care Team IV Pharmacy: [facility] / [phone] Nursing Agency: [facility] Physician(s): Dr. Whitney Additional Relevant Data Insurance Information: Payor: RX [facility] / Plan: RX [employer] ADVANCE PARADIGM / Product Type: RX [employer] / IV access PIV placed by GLASS ROBOT OPERATOR prior to each infusion Ht Readings [...] level: Not on file Occupational History Employer: [employer] Employer: [employer] Social Needs ??? Financial [...] file Gets together: Not on file Attends lutheran service: Not on file Active member of [...] Rfl: 0 ??? Cyanocobalamin (NASCOBAL) 500 mcg/spray [place], Non-Aerosol, 1 [place] by See Admin Instructions route every 7 [...] by intraveous injection see administration instructions. Home GLASS ROBOT OPERATOR to administer over 30 minutes every [...] Provided to Patient ?? Pharmacist offer to debt counselor ?? RN instruction ?? Printed teaching sheets ?? Drug information paperwork - [facility] patient leaflet Thanh Solares PHARMACIST [facility] [place] [address] [place] [address] documented in this encounter Plan of Treatment Upcoming Encounters Date Type Department Care Team (Late st Contact Info) Description 02/13/2025 10:30 AM CDT Office Visit [facility] [place] [address] [place] [address] Kitty Dover ANP [address] [place] [address] [place] [address] documented as of this encounter Visit Diagnoses Not on filedocumented in this encounter Care Teams Test Developer Relationship Specialty Start Date End Date Jasiel Freeman MD [address] [place] [phone] PCP - General Family Practice 08/15/17 documented as of this encounter
--- OUTSIDE RECORDS SUMMARY | 2024-10-24 06:38 | XMS_ITS | Encounter Summary ---
Author Organization [facility] Address [address] [place] [address] Care Team Providers Care Arm Maker Name Role Phone Jasiel Freeman MD Primary Care Provider Reason for Visit * Reason Onset Date Comments week 2 check in 08/27/2019 reinduction of E ntyvio Encounter Details Date Type Department Care Team (Late st Contact Info) Description 08/27/2019 Telephone [facility] Gastroenterology [facility] [address] [facility] [address] [place] [address] Annette Whitney MD [address] [facility] [place] [phone] week 2 check in (reinduction of Entyvio) [...] Joaquina Prescott, RN - 08/27/2019 12:36 PM TOE FORMER Week 2 check in-- Left will send [...] temperature? 10) Are you having any chills? FORMER documented in this encounter Plan of Treatment Upcoming Encounters Date Type Department Care Team (Late st Contact Info) Description 02/13/2025 10:30 AM CDT Office Visit [facility] IBD [facility]astroenterology [facility] [place] [address] [facility] [address] [place] [address] Kitty Dover ANP [address] [place] [address] [place] [address] documented as of this encounter Visit Diagnoses Not on filedocumented in this encounter Care Teams Arm Maker Relationship Specialty Start Date End Date Jasiel Freeman MD [address] [place] [phone] PCP - General Family Practice 08/15/17 documented as of this encounter
--- OUTSIDE RECORDS SUMMARY | 2024-10-24 06:38 | XMS_ITS | Encounter Summary ---
Author Organization [facility] Address [address] [place] [address] Care Team Providers Care Surveyor'S Assistant Name Role Phone Jasiel Freeman MD Primary Care Provider [phone] Encounter Details Date Type Department Care Team (Late Contact Info) Description 10/14/2019 Abstract [facility] Gastroenterology [facility] [address] [facility] [address] [place] [address] Joaquina Prescott, RN Social History [...] [facility] [address] [place] [address] Kitty Dover, MIRTA [address] [facility] [address] [place] [address] documented as of this encounter Visit Diagnoses Not on filedocumented in this encounter Care Teams Surveyor'S Assistant Relationship Specialty Start Date End Date Jasiel Freeman MD [address] [place] [address] PCP - General Family Practice 08/15/17 documented as of this encounter
--- OUTSIDE RECORDS SUMMARY | 2024-10-24 06:38 | XMS_ITS | Encounter Summary ---
Author Organization [facility] Address [address] [place] [address] Care Team Providers Care Heading Repairer Name Role Phone Jasiel Freeman MD Primary Care Provider Encounter Details Date Type Department Care Team (Late Contact Info) Description 09/10/2019 Abstract [facility] Gastroenterology [facility] [address] [facility] [address] [place] [address] Annette Whitney MD 1 [facility] [place] [phone] Social History Tobacco Use Types Packs/Day Years [...] [facility] IBD and Gastroenterology [place] [address] [facility] [address] [place] [address] Kitty Dover, ANP [address] [facility] [address] [place] [address] documented as of this encounter Visit Diagnoses Not on filedocumented in this encounter Care Teams Heading Repairer Relationship Specialty Start Date End Date Jasiel Freeman MD [address] [place] [phone] PCP - General Family Practice 08/15/17 documented as of this encounter
--- OUTSIDE RECORDS SUMMARY | 2024-10-24 06:38 | XMS_ITS | Encounter Summary ---
Author Organization [facility] Address [address] [place] [address] Care Team Providers Care Zinc Etcher Name Role Phone Jasiel Freeman MD Primary Care Provider Encounter Details Date Type Department Care Team (Late st Contact Info) Description 02/04/2020 Abstract [facility] Physical Medicine and Rehabilitation [address] [place] [address] Annette Whitney MD [address] [facility] [address] [place] [address] Social History Tobacco Use Types [...] Visit [facility] IBD and Gastroenterology Center [place] [address] [address] [facility] [address] [place] [address] Kitty Dover, ANP [address] [facility] [address] [place] [address] documented as of this encounter Visit Diagnoses Not on filedocumented in this encounter Care Teams Zinc Etcher Relationship Specialty Start Date End Date Jasiel Freeman MD [address] [place] [phone] PCP - General Family Practice 08/15/17 documented as of this encounter
--- OUTSIDE RECORDS SUMMARY | 2024-10-24 06:38 | XMS_ITS | Encounter Summary ---
Author Organization [facility] Address [address] [place] [address] Care Team Providers Care Branch Coordinator Name Role Phone Jasiel Freeman MD Primary Care Provider [phone] Encounter Details Date Type Department Care Team (Late st Contact Info) Description 11/15/2019 Specialty Pharmacy [facility] Specialty Pharmacy [place] [address] [place] [phone] Thanh Solares, PHARMACIST Social History Tobacco Use [...] not included. [facility] Specialty & Infusion - [place] Edgardoisaiah Elkins 49 y.o. / male Patient's address on file: [address] [address] Home Phone Work Phone Home Infusion Order [...] Whitney [facility] Gastroenterology [address] [facility] [address] Generic substitution permitted Detailed Home Infusion Orders [...] RN will take any ordered labs to [facility] when possible. If labs are not taken to a [facility] lab, it is the responsibility of nursing to make sure labs are faxed to the pharmacy at [phone] Whitney. Catheter Care Catheter type: PIV placed by RADIO PERFORMER prior to each infusion Flush IV catheter [...] lab draws/line complications. ?? Flushes provided by [facility] Specialty and Infusion pharmacy are [...] Elkins (49 y.o. male) is active with [facility] Specialty and Infusion services receiving Entyvio every 8 weeks at home for ulcerative colitis. ?? Edgardo is due for his next infusion this week. Pharmacist contacted RADIO PERFORMER to coordinate delivery. RN will apple picker today. Patient received last infusion without issue. No questions or concerns at this time. Patient has appointment with Dr. Nair on 01/29. 05/13/19 - Spoke with the patient who stated he is doing well. He has had no changes in his medication therapy or no clinical issues. Will ship medications and supplies to the patient. Thanh Solares MBA, [facility] 08/08/19 - Patient to receive infusion of Entyvio today after an insurance issue. Will send medications and supplies for the infusion. JEANNA 08/19/19 - Confirmed with the nurse shoe caser that the patient was scheduled to [...] [facility] / [phone] Nursing Agency: [facility] Physician(s): Dr. Whitney Additional Relevant Data Insurance Information: Payor: RX [employer]S/[employer] / Plan: RX PCS ADVANCE PARADIGM / Product Type: RX Caremark / IV access PIV placed by RADIO PERFORMER prior to each infusion Ht Readings from [...] level: Not on file Occupational History Employer: [employer] Employer: [employer] Social Needs ??? Financial [...] file Gets together: Not on file Attends orthodoxy service: Not on file Active member of [...] by intraveous injection see administration instructions. Home RADIO PERFORMER to administer over 30 minutes every 8 [...] Provided to Patient ?? Pharmacist offer to evp general counsel ?? RN instruction ?? Printed teaching sheets ?? Drug information paperwork - EH patient leaflet FADI Silverman [facility] Specialty & Infusion - [place] [id number] [place] [address] , [address] [place] [address] Y REPAIRER documented in this encounter Plan of Treatment Upcoming Encounters Date Type Department Care Team (Late st Contact Info) Description 02/13/2025 10:30 AM CDT Office Visit [facility] IBD and Gastroenterology Center [place] [address] [place] [address] Kitty Dover ANP [address] [place] [place] [address] [place] [address] documented as of this encounter Visit Diagnoses Not on filedocumented in this encounter Care Teams Branch Coordinator Relationship Specialty Start Date End Date Jasiel Freeman MD [address] [place] [phone] PCP - General Family Practice 08/15/17 documented as of this encounter
--- OUTSIDE RECORDS SUMMARY | 2024-10-24 06:38 | XMS_ITS | Encounter Summary ---
Author Organization [facility] Address [address] [place] [address] Care Team Providers Care Certification Officer Name Role Phone Jasiel Freeman MD Primary Care Provider Reason for Visit * Reason Onset Date Comments Labs Only 10/25/2019 Encounter Details Date Type Department Care Team (Late st Contact Info) Description 10/25/2019 Telephone [facility] Gastroenterology [place] A [address] [place] [address] Jailene Whitney MD [address] [facility] [address] [place] [address] Labs Only Social History Tobacco Use Types [...] over results from labs 10/29/19 @ 2:30 REIGHT OPERATIONS AGENT * Addendum Note - Jailene Whitney MD - 10/29/2019 1:05 PM CSTAddended by: JAILENE WHITNEY on: 10/29/2019 01:05 PM Modules accepted: Orders REIGHT OPERATIONS AGENT * Telephone Encounter - Jailene Whitney MD - 10/29/2019 1:01 PM AIRFREIGHT OPERATIONS AGENT Pauline, can you reach out to his PCP office about faxing us the results of the lab tests he had donethere for me. thanks REIGHT OPERATIONS AGENT * Telephone Encounter - Joaquina Prescott RN - 10/25/2019 3:35 PM AIRFREIGHT OPERATIONS AGENT Patient got labs done on 10/15/19, we are waiting on results. He is not getting worse but also not better. Says is the same. REIGHT OPERATIONS AGENT documented in this encounter Plan of Treatment Upcoming Encounters Date Type Department Care Team (Late st Contact Info) Description 02/13/2025 10:30 AM CDT Office Visit [facility] IBD and Gastroenterology Center [place] [address] [place] [address] Kitty Dover, MIRTA [address] [place] [place] [address] [place] [address] documented as of this encounter Visit Diagnoses Not on filedocumented in this encounter Care Teams Certification Officer Relationship Specialty Start Date End Date Jasiel Freeman MD [address] [place] [phone] PCP - General Family Practice 08/15/17 documented as of this encounter
--- OUTSIDE RECORDS SUMMARY | 2024-10-24 06:38 | XMS_ITS | Encounter Summary ---
Author Organization [facility] Address [address] [place] [address] Care Team Providers Care Or Scrub Tech Name Role Phone Jasiel Freeman MD Primary Care Provider [phone] Encounter Details Date Type Department Care Team (Late Contact Info) Description 09/10/2019 Abstract [facility] Gastroenterology [facility] [address] [place] [address] Annette Whitney MD 1 [facility] [place] [phone] Social History Tobacco Use Types Packs/Day Years [...] Office Visit [facility] IBD and Gastroenterology [place] [address] [facility] [address] [place] [address] Kitty Dover, ANP [address] [facility] [address] [place] [address] documented as of this encounter Visit Diagnoses Not on filedocumented in this encounter Care Teams Or Scrub Tech Relationship Specialty Start Date End Date Jasiel Freeman MD [address] [place] [phone] PCP - General Family Practice 08/15/17 documented as of this encounter
--- OUTSIDE RECORDS SUMMARY | 2024-10-24 06:38 | XMS_ITS | Encounter Summary ---
Author Organization [facility] Address [address] [place] [address] Care Team Providers Care Roller Leveler Operator Name Role Phone Jasiel Freeman MD Primary Care Provider Reason for Visit * Reason Comments Information correct PA for Entyv io verification Encounter Details Date Type Department Care Team (Late st Contact Info) Description 09/03/2019 Chart Note [facility] Gastroenterology [facility] [address] [address] Joaquina Prescott, RN Information (correct [...] - 09/03/2019 11:49 AM CST 09/03/2019-Tiago jarrett [facility], Case no. [id number], has been extended from 08/07/2019 until 02/06/2020 for a total of 6 infusions. Edgardo has had week 0 and week 2 of the re-induction of Entyvio and is being infused by [facility]fusion. ODE RAY TUBE ASSEMBLER documented in this encounter Plan of Treatment Upcoming Encounters Date Type Department Care Team (Late st Contact Info) Description 02/13/2025 10:30 AM CDT Office Visit [facility] IBD and Gastroenterology Center [place] [address] [place] [address] Kitty Dover ANP [address] [place] [address] [place] [address] documented as of this encounter Visit Diagnoses Not on filedocumented in this encounter Care Teams Roller Leveler Operator Relationship Specialty Start Date End Date Jasiel Freeman MD [address] [place] [phone] PCP - General Family Practice 08/15/17 documented as of this encounter
--- OUTSIDE RECORDS SUMMARY | 2024-10-24 06:38 | XMS_ITS | Encounter Summary ---
Author Organization [facility] Address [address] [place] [address] Care Team Providers Care Gas Station Clerk Name Role Phone Jasiel Freeman MD Primary Care Provider Encounter Details Date Type Department Care Team (Late st Contact Info) Description 08/16/2019 Abstract [facility] Gastroenterology [place] A [address] [place] [address] Joaquina Prescott, RN Social History [...] [facility] [place] [address] [place] [address] Kitty Dover, MIRTA [address] [place] [address] [place] [address] documented as of this encounter Visit Diagnoses Not on filedocumented in this encounter Care Teams Gas Station Clerk Relationship Specialty Start Date End Date Jasiel Freeman MD [address] [place] [address] PCP - General Family Practice 08/15/17 documented as of this encounter
--- OUTSIDE RECORDS SUMMARY | 2024-10-24 06:38 | XMS_ITS | Encounter Summary ---
Author Organization [facility] Address [address] [place] [address] Care Team Providers Care Customs Port Director Name Role Phone Jasiel Freeman MD Primary Care Provider Encounter Details Date Type Department Care Team (Late st Contact Info) Description 03/05/2020 Specialty Pharmacy [facility] Specialty and Home Infusion - [address] [place] [address] Thanh Solares, PHARMACIST Social History [...] from the original note were not included. [facility] Specialty & Infusion [facility] Edgardo Elkins 49 y.o. / male Patient's address on file: [address] [place] [address] Home Phone Work Phone [phone] Home Infusion [...] (through 05/26/19) Per: Caren / KESHA Whitney [facility] Gastroenterology [address] [facility] [address] Generic substitution permitted Detailed Home Infusion Orders [...] RN will take any ordered labs to [facility] when possible. If labs are not taken to a [facility] lab, it is the responsibility of nursing to make sure labs are faxed to the pharmacy at [phone] Whitney. Catheter Care Catheter type: PIV placed by FOOD AND BEVERAGE CASHIER prior to each infusion Flush IV catheter [...] lab draws/line complications. ?? Flushes provided by [facility] Specialty and Infusion pharmacy are [...] Elkins (49 y.o. male) is active with [facility] Specialty and Infusion services receiving Entyvio every 8 weeks at home for ulcerative colitis. ?? Edgardo is due for his next infusion this week. Pharmacist contacted FOOD AND BEVERAGE CASHIER to coordinate delivery. RN will picker packer today. Patient received last infusion without issue. No questions or concerns at this time. Patient has appointment with Dr. Nair on 01/29. 05/13/19 - Spoke with the patient who stated he is doing well. He has had no changes in his medication therapy or no clinical issues. Will ship medications and supplies to the patient. Tahnh Solares MBA, [facility] 08/08/19 - Patient to receive infusion of Entyvio today after an insurance issue. Will send medications and supplies for the infusion. JEANNA 08/19/19 - Confirmed with the nurse rn field case manager that the patient was [...] Whitney Home Infusion Care Team IV Pharmacy: [facility] [place] / [phone] Nursing Agency: [facility] Physician(s): Dr. Whitney Additional Relevant Data Insurance Information: Payor: RX [facility]S/[facility] / Plan: RX PCS ADVANCE PARADIGM / Product Type: RX Caremark / IV access PIV placed by FOOD AND BEVERAGE CASHIER prior to each infusion Ht Readings from [...] level: Not on file Occupational History Employer: [employer] Employer: [employer] Social Needs ??? Financial [...] by intraveous injection see administration instructions. Home FOOD AND BEVERAGE CASHIER to administer over 30 minutes every 8 [...] Provided to Patient ?? Pharmacist offer to apprise counselor ?? RN instruction ?? Printed teaching sheets ?? Drug information paperwork - EH patient leaflet FADI Silverman [facility] Specialty & Infusion - [place] [id number] [place] [address] , [address] [place] [address] documented in this encounter Plan of Treatment Upcoming Encounters Date Type Department Care Team (Late st Contact Info) Description 02/13/2025 10:30 AM CDT Office Visit [facility] IBD and Gastroenterology Center [place] [address] [facility] [address] [place] [address] Kitty Dover ANP [address] [place] [place] [address] documented as of this encounter Visit Diagnoses Not on filedocumented in this encounter Care Teams Customs Port Director Relationship Specialty Start Date End Date Jasiel Freeman MD [address] [place] [phone] PCP - General Family Practice 08/15/17 documented as of this encounter
--- OUTSIDE RECORDS SUMMARY | 2024-10-24 06:38 | XMS_ITS | Encounter Summary ---
Author Organization [facility] Address [address] [place] [address] Care Team Providers Care Edger Machine Setter Name Role Phone Jasiel Freeman MD Primary Care Provider [phone] Encounter Details Date Type Department Care Team (Latest Contact Info) Description 05/20/2020 12:40 PM CDT - 05/20/2020 11:59 PM CDT Hospital Encounter [facility] Imaging Services Medical [place] A [address] [place] [address] Gilma Marcos PA [address] [facility] [address] [place] [phone] Discharge Disposition: Home or Self Care Social [...] by intraveous injection see administration instructions. Home PRICING INTERN to administer over 30 minutes every 8 weeks. 300 mg 3 07/31/2019 11/14/2022 documented as of this encounter Plan of Treatment Upcoming Encounters Date Type Department Care Team (Late st Contact Info) Description 02/13/2025 10:30 AM CDT Office Visit [facility] IBD and Gastroenterology Center [place] [address] [place] [address] Stanislaw Kittysalvatore Aguero, ANP [address] [place] [address] documented as of this encounter [...] Clear lungs. DICTATION LOCATION: Location 2 - [facility] Narrative 05/20/2020 3:32 PM CDT EXAMINATION: XR [...] free air. 2. Clear lungs. DICTATION LOCATION: [address] Gilma [facility] documented in this encounter Visit Diagnoses Diagnosis Abdominal distention Flatulence, eructation, and gas pain Ulcerative pancolitis without complication Pouchitis documented in this encounter Care Teams Edger Machine Setter Relationship Specialty Start Date End Date Jasiel Freeman MD [address] [place] [phone] PCP - General Family Practice 08/15/17 documented as of this encounter
--- OUTSIDE RECORDS SUMMARY | 2024-10-24 06:38 | XMS_ITS | Encounter Summary ---
Author Organization [facility] Address [address] [place] [address] Care Team Providers Care Oil And Gas Exploration Technician Name Role Phone Jasiel Freeamn MD Primary Care Provider Encounter Details Date Type Department Care Team (Late st Contact Info) Description 02/05/2020 Orders Only [facility] Gastroenterology [facility] [address] [place] [address] Annette Whitney MD 1 [facility] [place] [address] Ulcerative pancolitis with other complication (Primary Dx) [...] [facility] IBD [facility] Gastro[facility]ology Center [place] [address] [place] [address] Kitty Dover, MIRTA [address] [place] [address] [place] [address] documented as of this encounter Visit Diagnoses Diagnosis Ulcerative pancolitis with other complication- Primary documented in this encounter Care Teams Oil And Gas Exploration Technician Relationship Specialty Start Date End Date Jasiel Freeman MD [address] [place] [phone] PCP - General Family Practice 08/15/17 documented as of this encounter
--- OUTSIDE RECORDS SUMMARY | 2024-10-24 06:38 | XMS_ITS | Encounter Summary ---
Author Organization [facility] Address [address] [place] [address] Care Team Providers Care Mobile Application Developer Name Role Phone Jasiel Freeman MD Primary Care Provider Encounter Details Date Type Department Care Team (Late Contact Info) Description 09/10/[address] [facility] Gastroenterology [facility] [address] [facility] [address] [place] [address] Annette Whitney MD 1 [facility] [place] [phone] Social History Tobacco Use Types Packs/Day Years [...] 02/13/2025 10:30 AM CDT Office Visit [facility] IBD and Gastroenterology [place] [address] [facility] [address] [place] [address] Kitty Dover, ANP [address] [facility] [address] [place] [address] documented as of this encounter Visit Diagnoses Not on filedocumented in this encounter Care Teams Mobile Application Developer Relationship Specialty Start Date End Date Jasiel Freeman MD [address] [place] [phone] PCP - General Family Practice 08/15/17 documented as of this encounter
--- OUTSIDE RECORDS SUMMARY | 2024-10-24 06:38 | XMS_ITS | Encounter Summary ---
Author Organization [facility] Address [address] [place] [address] Care Team Providers Care Tourist Guide Name Role Phone Jasiel Freeman MD Primary Care Provider Reason for Visit * Reason Onset Date Comments Home Visit 08/08/2019 Encounter Details Date Type Department Care Team (Late st Contact Info) Description 08/08/2019 Patient Outreach [facility] Specialty Pharmacy [address] [address] Irina Wyatt, JIE Home Visit [...] original note were not included. [facility] Specialty and Home Infusion Pharmacy [address] [facility] [address] [place] [address] Home Infusion NURSING follow up Leonidas Elkins 1970 [address] [facility] [address] 08/08/19 Provider - Irina Wyatt RN Driving [...] mL 0 ??? Cyanocobalamin (NASCOBAL) 500 mcg/spray [place], Non-Aerosol 1 [place] by See Admin Instructions route every 7 days. 1 spray, 1 nostril, 1x week 1 mL 12 ??? ergocalciferol (VITAMIN D2) 50,000 unit capsule Take 1 Capsule (50,000 Units) by mouth every 7 days. For 8 weeks then once every other week. 8 Capsule 2 ??? vedolizumab (ENTYVIO) 300 mg Recon Soln Inject 300 mg by intraveous injection see administration instructions. Home BROADCAST DESIGNER to administer over 30 minutes every [...] observed with learning needs - No cultural, voodoo, or language barriers to learning Patient and [...] 03/21/19 16 01/24/19 16 11/29/18 16 1. shelter assessment and implementation of [...] knows how to reorder medications. [facility] Specialty and Home Infusion Pharmacy will [...] [facility] IBD [facility] Gastro[facility]ology Center [place] [address] [facility] [address] [place] [address] Kitty Dover ANP [address] [place] [address] [place] [address] documented as of this encounter Visit Diagnoses Not on filedocumented in this encounter Care Teams Tourist Guide Relationship Specialty Start Date End Date Jasiel Freeman MD [address] [place] [phone] PCP - General Family Practice 08/15/17 documented as of this encounter
--- OUTSIDE RECORDS SUMMARY | 2024-10-24 06:38 | XMS_ITS | Encounter Summary ---
Author Organization [facility] Address [address] [place] [address] Care Team Providers Care Radiator Tester Name Role Phone Jasiel Freeman MD Primary Care Provider Reason for Visit * Reason Onset Date Comments Home Visit 01/13/2020 Encounter Details Date Type Department Care Team (Late st Contact Info) Description 01/13/2020 Patient Outreach [facility] Specialty and Home Infusion - [address] [place] [address] Irina Wyatt, RN Home Visit [...] original note were not included. [facility] Specialty and Home Infusion Pharmacy [address] [facility] [place] [address] Home Infusion NURSING follow up Leonidas Elkins 1970 [address] [facility] [address] 01/13/2020 Provider - Irina Wyatt RN Driving [...] by intraveous injection see administration instructions. Home TRAINING GENERALIST to administer over 30 minutes every 8 weeks. 300 mg 3 ??? TESTOSTERONE, BULK, MISC 1 mL by Misc.(Non-Drug; Combo Route) route. No current facility-administered medications on file prior to visit. No problem observed with learning needs - No cultural, druze, or language barriers to learning Patient and [...] 11/19/19 16 09/23/19 16 08/23/19 16 1. senior living assessment and implementation of [...] knows how to reorder medications. [facility] Specialty and Home Infusion Pharmacy will [...] [facility] [place] [address] [place] [address] Kitty Dover ANP [address] [place] [address] [place] [address] documented as of this encounter Visit Diagnoses Not on filedocumented in this encounter Care Teams Radiator Tester Relationship Specialty Start Date End Date Jasiel Freeman MD [address] [place] [phone] PCP - General Family Practice 08/15/17 documented as of this encounter
--- OUTSIDE RECORDS SUMMARY | 2024-10-24 06:38 | XMS_ITS | Encounter Summary ---
Author Organization [facility] Address [address] [place] [address] Care Team Providers Care Aerospace Assembler Name Role Phone Jasiel Freeman MD Primary Care Provider [phone] Reason for Visit * Reason Onset Date Comments check in 09/23/2019 Encounter Details Date Type Department Care Team (Late st Contact Info) Description 09/23/2019 Telephone [facility] Gastroenterology [facility] [address] [place] [address] Annette Whitney MD [address] [facility] [address] [place] [phone] check in Social History Tobacco Use Types Packs/Day Years [...] Telephone Encounter - Joaquina Prescott RN - 09/23/2019 12:39 PM DIRECTOR OF STUDENT SERVICES He is doing well, the 6 week induction dose is being infused today. He has not been on steroids. Hefeels like he is doing good. CTOR OF STUDENT SERVICES documented in this encounter Plan of Treatment Upcoming Encounters Date Type Department Care Team (Late st Contact Info) Description 02/13/2025 10:30 AM CDT Office Visit [facility] IBD and Gastroenterology [facility] [place] [address] [place] [address] Kitty Dover ANP [address] [place] [address] documented as of this encounter Visit Diagnoses Not on filedocumented in this encounter Care Teams Aerospace Assembler Relationship Specialty Start Date End Date Jasiel Freeman MD [address] [place] [phone] PCP - General Family Practice 08/15/17 documented as of this encounter
--- OUTSIDE RECORDS SUMMARY | 2024-10-24 06:38 | XMS_ITS | Encounter Summary ---
Author Organization [facility] Address [address] Laurenn: [place] [address] Care Team Providers Care Clinical Trials Assistant Name Role Phone Jasiel Freeman MD Primary Care Provider [phone] Encounter Details Date Type Department Care Team [...] [facility] IBD and Gastroenterology [facility] [place] [address] [place] [address] Kitty Dover, ANP [address] [facility] [address] [place] [address] documented as of this encounter Visit Diagnoses Not on filedocumented in this encounter Care Teams Clinical Trials Assistant Relationship Specialty Start Date End Date Jasiel Freeman MD [address] [place] [phone] PCP - General Family Practice 08/15/17 documented as of this encounter
--- OUTSIDE RECORDS SUMMARY | 2024-10-24 06:38 | XMS_ITS | Encounter Summary ---
Author Organization [facility] Address [address] [place] [address] Care Team Providers Care Variety Lathe Operator Name Role Phone Jasiel Freeman MD Primary Care Provider [phone] Encounter Details Date Type Department Care Team (Late st Contact Info) Description 04/29/2020 Orders Only [facility] Endocrinology [address] [place] [address] Emily Hernandez MD [address] [facility] [address] [place] [address] Social History Tobacco Use Types [...] [facility] [place] [address] [place] [address] Kitty Dover ANP [address] [place] [address] documented as of this encounter Visit Diagnoses Not on filedocumented in this encounter Care Teams Variety Lathe Operator Relationship Specialty Start Date End Date Jasiel Freeman MD [address] [place] [phone] PCP - General Family Practice 08/15/17 documented as of this encounter
--- OUTSIDE RECORDS SUMMARY | 2024-10-24 06:38 | XMS_ITS | Encounter Summary ---
Author Organization [facility] Address [address] [place] [address] Care Team Providers Care Wool Mixer Name Role Phone Jasiel Freeman MD Primary Care Provider [phone] [phone] Reason for Visit * Reason Onset Date Comments Home Visit 05/05/2020 Encounter Details Date Type Department Care Team (Late st Contact Info) Description 05/05/2020 Patient Outreach [facility]ty [facility]fusion - [address] [place] [address] Irina Wyatt, RN Home Visit [...] from the original note were not included. [facility] [address] [place] [address] Home Infusion NURSING follow up Leonidas Elkins 1970 [address] [facility] [address] 05/05/2020 Provider - Irina Wyatt RN Driving [...] by intraveous injection see administration instructions. Home CHECKER STOCKER to administer over 30 minutes every 8 weeks. 300 mg 3 ??? TESTOSTERONE, BULK, MISC 1 mL by Misc.(Non-Drug; Combo Route) route. No current facility-administered medications on file prior to visit. No problem observed with learning needs - No cultural, jain, or language barriers to learning Patient and [...] 03/09/20 16 01/13/20 16 11/19/19 16 1. retirement assessment and implementation of [...] reactions. Patient knows how to reorder medications. [facility] will dispense [...] [facility] [place] [address] [facility] [address] [place] [address] Kitty Dover ANP [address] [place] [phone] documented as of this encounter Visit Diagnoses Not on filedocumented in this encounter Care Teams Wool Mixer Relationship Specialty Start Date End Date Jasiel Freeman MD [address] [place] [phone] PCP - General Family Practice 08/15/17 documented as of this encounter
--- OUTSIDE RECORDS SUMMARY | 2024-10-24 06:38 | XMS_ITS | Encounter Summary ---
Author Organization [facility] Address [address] [place] [address] Care Team Providers Care Senior Consultant Name Role Phone Jasiel Freeman MD Primary Care Provider +1-2 [phone] Reason for Visit * Reason Comments Abdominal Pain Encounter Details Date Type Department Care Team (Latest Contact Info) Description 05/20/2020 12:00 PM CDT [facility] Visit [facility]ology [facility] [address] [address] Gilma Marcos PA [address] [facility] [address] [place] [address] Abdominal distention (Primary Dx); Ulcerative [...] Marcos PA - 05/20/2020 1:15 PM CDT [facility] Gastroenterology Outpatient Office Visit CSN: [id number] Date of Visit: 05/20/2020 Date of : [...] by intraveous injection see administration instructions. Home SUPERVISOR HARDBOARD to administer over 30 minutes every 8 [...] HX HIP REPLACEMENT, TOTAL Left 10/08/2017 ??? MD COLONOSCOPY FLX DX W/COLLJ SPEC WHEN PFRMD 12/08/2009 COLONOSCOPY performed by LOUISE RIZO at [facility] GI [facility] ??? MD COLONOSCOPY FLX DX W/COLLJ SPEC WHEN PFRMD 06/09/[address] by [address] Ryan MD at [facility] ??? MD DILATION RECTAL STRICTURE W ANEST 06/12/2012 RECTAL STRICTURE DILATATION performed by Lane Ryan MD at [facility] ??? MD ENDOSCOPY UPPER SMALL INTESTINE 06/12/2012 SMALL BOWEL ENTEROSCOPY performed by Lane Ryan MD at [facility] ??? MD ENDOSCOPY UPPER SMALL INTESTINE N/A 08/24/2017 SMALL BOWEL ENTEROSCOPY performed by Lane Ryan MD at [facility] ??? MD ENDOSCOPY UPPER SMALL INTESTINE W/BIOPSY 02/28/2012 BOWEL SMALL BIOPSY ENDOSCOPIC performed by Lane Ryan MD at [facility] ??? MD ESOPHAGOGASTRODUODENOSCOPY TRANSORAL DIAGNOSTIC 02/28/2012 ES[address]OGASTRODUODENOSCOPY performed by Lane Ryan MD at [facility] GI [facility] ??? MD NDSC EVAL INTSTINAL POUCH DX W/COLLJ SPEC SPX 02/16/2012 POUCHOSCOPY performed by Louise Rizo MD at [facility] GI [facility] ??? MD SIGMOIDOSCOPY FLX DX W/COLLJ SPEC BR/WA IF PFRMD 02/16/2012 SIGMOIDOSCOPY FLEXIBLE performed by Louise Rizo MD at [facility] GI [facility] Family History Problem Relation Name Age of [...] series to r/o obstruction. Gilma Marcos PA-C [facility] Gastroenterology [address] [place] [address] Phone: [phone] CC: Jasiel Freeman MD documented in this encounter Plan of Treatment Upcoming Encounters Date Type Department Care Team (Late st Contact Info) Description 02/13/2025 10:30 AM CDT Office Visit [facility] IBD and Gastroenterology Center [place] [address] [place] [address] Kitty Dover, MIRTA [address] [place] [address] documented as of this encounter [...] 2. Clear lungs. DICTATION LOCATION: Location [address] [facility] Narrative 05/20/2020 3:32 PM CDT [...] air. 2. Clear lungs. 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
--- OUTSIDE RECORDS SUMMARY | 2024-10-24 06:38 | XMS_ITS | Encounter Summary ---
Author Organization [facility] Address [address] [place] [address] Care Team Providers Care Bilingual Social Worker Name Role Phone Jasiel Freeman MD Primary Care Provider Reason for Visit * Reason Onset Date Comments Information 08/09/2019 Encounter Details Date Type Department Care Team (Late st Contact Info) Description 08/09/2019 Telephone [facility] Gastroenterology [facility] [address] [facility] [address] [place] [address] Annette Whitney MD [address] [facility] [place] [address] Information Social History Tobacco Use Types Packs/Day [...] have faxed the correct info to both [facility] and [facility] 08/08. His RN indicated that her orders [...] Description 02/13/2025 10:30 AM CDT [facility] Visit [facility] IBD and Gastroenterology Center [place] [address] [facility] 180 [place] [phone] Kitty Dover, MIRTA [address] [place] [place] [phone] documented as of this encounter Visit Diagnoses Not on filedocumented in this encounter Care Teams Bilingual Social Worker Relationship Specialty Start Date End Date Jasiel Freeman MD [address] [place] [phone] PCP - General Family Practice 08/15/17 documented as of this encounter
--- OUTSIDE RECORDS SUMMARY | 2024-10-24 06:38 | XMS_ITS | Encounter Summary ---
Author Organization [facility] Address [address] [place] [address] Care Team Providers Care Dollyman Name Role Phone Jasiel Freeman MD Primary Care Provider +1-2 [phone] Reason for Visit * Reason Comments Follow Up Crohn's Disease Encounter Details Date Type Department Care Team (Latest Contact Info) Description 11/13/2019 11:00 AM MOTTLER MACHINE FEEDER Office Visit [facility] Gastroenterology [facility] [address] [facility] [address] [place] [address] Annette Whitney MD [address] [facility] [address] [place] [address] Ulcerative pancolitis with other complication (Primary Dx); [...] Comments Blood Pressure 138/90 11/13/2019 11:03 AM MOTTLER MACHINE FEEDER Pulse 102 11/13/2019 11:03 AM MOTTLER MACHINE FEEDER Temperature - - Respiratory Rate - - Oxygen Saturation - - Inhaled Oxygen Concentration - - Weight 88.4 kg (194 lb 12.8 oz) 020 11:03 AM MOTTLER MACHINE FEEDER Height 175.3 cm (5' 9 ) 11/13/2019 11:0 3 AM MOTTLER MACHINE FEEDER Body Mass Index 28.77 11/13/2019 11:03 AM MOTTLER MACHINE FEEDER documented in this encounter Progress Notes * Annette Whitney MD - 11/13/2019 12:17 PM CST Gastroenterology Clinic Follow up Note Patient: Edgardo Elkins / 49 y.o. / male : 1970 Date: 11/13/2019 CSN: [id number] Referring Physician:Jasiel Freeman MD PCP: Jasiel Freeman [...] 0 ??? [DISCONTINUED] Cyanocobalamin (NASCOBAL) 500 mcg/spray [place], Non-Aerosol 1 [place] by See Admin Instructions route every 7 days. 1 spray, 1 nostril, 1x week 1 mL 12 ??? [DISCONTINUED] ergocalciferol (VITAMIN D2) 50,000 unit capsule Take 1 Capsule (50,000 Units) bymouth every 7 days. For 8 weeks then once every other week. 8 Capsule 2 ??? vedolizumab (ENTYVIO) 300 mg Recon Soln Inject 300 mg by intraveous injection see administration instructions. Home BEER MERCHANT to administer over 30 minutes every 8 [...] much for this consultation. Annette Whitney MD [facility] Digestive Diseases CC: Jasiel Freeman MD , Jasiel Freeman MD LER MACHINE FEEDER documented in this encounter Miscellaneous Notes * Patient Instructions - Annette Whitney MD - 11/13/2019 11:15 AM MOTTLER MACHINE FEEDER 1. Entyvio every 8 weeks 2. Flagyl if needed on vacation. Take Pepto bismol pills with you. 3. Lomotil as needed 4. Vitamin B12 injections once per week 5. Vitamin D pill once every 1-2 weeks. Return 6 months. Unless issues arise. LER MACHINE FEEDER documented in this encounter Plan of Treatment Upcoming Encounters Date Type Department Care Team (Late st Contact Info) Description 02/13/2025 10:30 AM CDT Office Visit [facility] IBD and Gastroenterology Center [place] [address] [place] [address] Kitty Dover ANP [address] [place] [address] documented as of this encounter Visit Diagnoses Diagnosis Ulcerative pancolitis with other complication- Primary Inflammation of internal ileoanal pouch Pouchitis documented in this encounter Care Teams Dollyman Relationship Specialty Start Date End Date Jasiel Freeman MD [address] [place] [phone] PCP - General Family Practice 08/15/17 documented as of this encounter
--- OUTSIDE RECORDS SUMMARY | 2024-10-24 06:38 | XMS_ITS | Encounter Summary ---
Author Organization [facility] Address [address] [place] [address] Care Team Providers Care Adult Literacy Teacher Name Role Phone Jasiel Freeamn MD Primary Care Provider Reason for Visit [...] (Late st Contact Info) Description 01/15/2020 Telephone [facility] Specialty and Home Infusion - [address] [facility] [address] Irina Wyatt RN IV Med (Called [...] [facility] IBD and Gastroenterology Center [place] [address] [facility] 180 [place] [phone] Kitty Dover, MIRTA [address] [facility] 100 [place] [phone] documented as of this encounter Visit Diagnoses Not on filedocumented in this encounter Care Teams Adult Literacy Teacher Relationship Specialty Start Date End Date Jasiel Freeman MD [address] [place] [phone] PCP - General Family Practice 08/15/17 documented as of this encounter
--- OUTSIDE RECORDS SUMMARY | 2024-10-24 06:38 | XMS_ITS | Encounter Summary ---
Author Organization [facility] Address [address] [place] [address] Care Team Providers Care Corporate Development Associate Name Role Phone Jasiel Freeman MD Primary Care Provider Reason for Visit * Reason Onset Date Comments flare 10/11/2019 Encounter Details Date Type Department Care Team (Late st Contact Info) Description 10/11/2019 Telephone [facility]ology [facility] [address] [facility] [facility] [address] [place] [address] Annette Whitney MD [address] [facility] [address] [place] [address] flare Social History Tobacco Use Types Packs/Day [...] having urgency and mild cramping no pain. RNET NETWORK ARCHITECT documented in this encounter Plan of Treatment Upcoming Encounters Date Type Department Care Team (Late st Contact Info) Description 02/13/2025 10:30 AM CDT Office Visit [facility] IBD and Gastroenterology Center [place] [address] [facility] 180 [place] [address] Kitty Dover ANP [address] [facility] 100 [place] [address] documented as of this encounter Visit Diagnoses Not on filedocumented in this encounter Care Teams Corporate Development Associate Relationship Specialty Start Date End Date Jasiel Freeman MD [address] [place] [phone] PCP - General Family Practice 08/15/17 documented as of this encounter
--- OUTSIDE RECORDS SUMMARY | 2024-10-24 06:39 | XMS_ITS | Encounter Summary ---
Author Organization [facility] Address [address] [place] [address] Care Team Providers Care Ceramic Design Engineer Name Role Phone Jasiel Freeman MD Primary Care Provider Reason for Visit * Reason Onset Date Comments Reminder 01/24/2019 BW ordered Encounter Details Date Type Department Care Team (Late st Contact Info) Description 01/24/2019 Telephone [facility] Gastroenterology [facility] [address] [facility] [address] [place] [address] Annette Whitney MD [address] [facility] [address] [place] [address] Reminder (BW ordered) Social History Tobacco Use Types Packs/Day Years [...] Telephone Encounter - Joaquina Prescott RN - 01/24/2019 8:23 AM CDT Spoke with Edgardo, reminded him that he has bloodwork ordered, no need to fast. He can get it before/after the appointment next week at the Out pt Lab as he doesn't have a [facility] near him. If able to before would be best. documented in this encounter Plan of Treatment Upcoming Encounters Date Type Department Care Team (Late st Contact Info) Description 02/13/2025 10:30 AM CDT Office Visit [facility] IBD and Gastroenterology Center [place] [address] [facility] 180 [place] [address] Kitty Dover, [facility] [address] [facility] 100 [place] [address] documented as of this encounter Visit Diagnoses Not on filedocumented in this encounter Care Teams Ceramic Design Engineer Relationship Specialty Start Date End Date Jasiel Freeman MD [address] [place] [phone] PCP - General Family Practice 08/15/17 documented as of this encounter
--- OUTSIDE RECORDS SUMMARY | 2024-10-24 06:39 | XMS_ITS | Encounter Summary ---
Author Organization [facility] Address [address] [place] [address] Care Team Providers Care Broke Beater Name Role Phone Jasiel Freeman MD Primary Care Provider Encounter Details Date Type Department Care Team (Late Contact Info) Description 07/31/2019 Abstract [facility] Gastroenterology [facility] [address] [facility] [address] [place] [address] Annette Whitney MD [address] [facility] [place] [phone] Social History Tobacco Use Types Packs/Day Years [...] 02/13/2025 10:30 AM CDT Office Visit [facility] IBD and Gastroenterology [place] [address] [facility] 180 [place] [address] Kitty Dover, ANP [address] [facility] 100 [place] [address] documented as of this encounter Visit Diagnoses Not on filedocumented in this encounter Care Teams Broke Beater Relationship Specialty Start Date End Date Jasiel Freeman MD [address] [place] [phone] PCP - General Family Practice 08/15/17 documented as of this encounter
--- OUTSIDE RECORDS SUMMARY | 2024-10-24 06:39 | XMS_ITS | Encounter Summary ---
Author Organization [facility] Address [address] [place] [address] Care Team Providers Care Legal Recruiter Name Role Phone Jasiel Freeman MD Primary Care Provider Reason for Visit * Reason Comments Medication Refill Encounter Details Date Type Department Care Team (Late st Contact Info) Description 11/12/2018 Refill [facility] GASTROENTEROLOGY [address] [facility] [address] [place] [address] Lane Ryan MD NO ADDRESS [...] Or he can ask PCP to fill. ICE PARTS DRIVER * Telephone Encounter - Annette Whitney MD - 11/12/2018 2:29 PM SERVICE PARTS DRIVER Needs appointment with me or can get from PCP. This is now controlled substance so I cannot fill since his last apt was >1 year ago ICE PARTS DRIVER documented in this encounter Plan of Treatment Upcoming Encounters Date Type Department Care Team (Late st Contact Info) Description 02/13/2025 10:30 AM CDT Office Visit [facility] IBD and Gastroenterology Center [place] [address] [place] [address] Kitty Dover, MIRTA [address] [place] [place] [address] documented as of this encounter Visit Diagnoses Not on filedocumented in this encounter Care Teams Legal Recruiter Relationship Specialty Start Date End Date Jasiel Freeman MD [address] [place] [phone] PCP - General Family Practice 08/15/17 documented as of this encounter
--- OUTSIDE RECORDS SUMMARY | 2024-10-24 06:39 | XMS_ITS | Encounter Summary ---
Author Organization [facility] Address [address] [place] [address] Care Team Providers Care Distribution Clerk Name Role Phone Jasiel Freeman MD Primary Care Provider Encounter Details Date Type Department Care Team (Late st Contact Info) Description 08/28/2018 Orders Only [facility] GASTROENTEROLOGY [address] [place] [address] Lane Ryan MD NO ADDRESS [...] Description 02/13/2025 10:30 AM CDT Office Visit [facility] IBD and Gastroenterology Center [place] [address] [place] [address] Kitty Dover ANP [address] [place] [address] documented as of this encounter Visit Diagnoses Not on filedocumented in this encounter Care Teams Distribution Clerk Relationship Specialty Start Date End Date Jasiel Freeman MD [address] [place] [address] PCP - General Family Practice 08/15/17 documented as of this encounter
--- OUTSIDE RECORDS SUMMARY | 2024-10-24 06:39 | XMS_ITS | Encounter Summary ---
Author Organization [facility] Address [address] [place] [address] Care Team Providers Care Rice Field Worker Name Role Phone Jasile Freeman MD Primary Care Provider [phone] Encounter Details Date Type Department Care Team (Late Contact Info) Description 08/08/2019 Abstract [facility] Gastroenterology [facility] [address] [facility] [address] [place] [address] Joaquina Prescott, RN Social History [...] [facility] IBD and Gastroenterology [facility] [address] [place] [address] Kitty Dover, MIRTA [address] [facility] [address] [place] [address] documented as of this encounter Visit Diagnoses Not on filedocumented in this encounter Care Teams Rice Field Worker Relationship Specialty Start Date End Date Jasiel Freeman MD [address] [place] [address] PCP - General Family Practice 08/15/17 documented as of this encounter
--- OUTSIDE RECORDS SUMMARY | 2024-10-24 06:39 | XMS_ITS | Encounter Summary ---
Author Organization [facility] Address , [place] Care Team Providers Care Icer Air Conditioning Name Role Phone Jasiel Freeman MD Primary Care Provider Encounter Details Date Type Department Care Team (Late st Contact Info) Description 03/21/2019 Home Visit [address], [address] [place] [address] Irina Wyatt RN Social History [...] original note were not included. [facility] [address] [facility] [address] [place] [address] Home Infusion NURSING follow up Leonidas Edgardo Elkins 1970 [address] [facility] [address] 03/21/2019 Provider - Irina Wyatt RN Driving [...] by intraveous injection see administration instructions Home TECHNICAL SUPPORT AGENT to administer over 30 minutes every 8 [...] 03/21/19 16 01/24/19 16 11/29/18 16 1. alf assessment and implementation of infusion [...] knows how to reorder medications. [facility] will dispense [...] 10:30 AM CDT Office Visit [facility] [place] [address] [facility] [address] [place] [phone] Kitty Dover, ANP [address] [address] documented as of this encounter Visit Diagnoses Not on filedocumented in this encounter Care Teams Icer Air Conditioning Relationship Specialty Start Date End Date Jasiel Freeman MD [address] [place] [phone] PCP - General Family Practice 08/15/17 documented as of this encounter
--- OUTSIDE RECORDS SUMMARY | 2024-10-24 06:39 | XMS_ITS | Encounter Summary ---
Author Organization [facility] Address [address] [place] [address] Care Team Providers Care Cylinder Press Operator Helper Name Role Phone Jasiel Freeman MD Primary Care Provider Encounter Details Date Type Department Care Team (Late Contact Info) Description 08/05/2019 Orders Only [facility]3] Gastroenterology [facility] [address] [facility] [address] [place] [address] Annette Whitney MD 1 [facility] [place] [phone] Social History Tobacco Use Types Packs/Day Years [...] 10:30 AM CDT Office Visit [facility] [place] [address] [facility] [address] [place] [address] Kitty Dover, ANP [address] [facility] 100 [place] [address] documented as of this encounter Visit Diagnoses Not on filedocumented in this encounter Care Teams Cylinder Press Operator Helper Relationship Specialty Start Date End Date Jasiel Freeman MD [address] [place] [phone] PCP - General Family Practice 08/15/17 documented as of this encounter
--- OUTSIDE RECORDS SUMMARY | 2024-10-24 06:39 | XMS_ITS | Encounter Summary ---
Author Organization [facility] Address [address] [place] [address] Care Team Providers Care Cloth Finisher Name Role Phone Jasiel Freeman MD Primary Care Provider Reason for Visit * Reason Comments Medication Refill Encounter Details Date Type Department Care Team (Late st Contact Info) Description 08/06/2019 Refill [facility] Gastroenterology [facility] [address] [facility] [address] [place] [address] Annette Whitney MD [address] [facility] [address] DIV [place] [phone] Social History Tobacco Use Types Packs/Day Years [...] Visit [facility] [place] [address] [place] [address] Kitty Dover ANP [address] [facility] 100 [place] [address] documented as of this encounter Visit Diagnoses Not on filedocumented in this encounter Care Teams Cloth Finisher Relationship Specialty Start Date End Date Jasiel Freeman MD [address] [place] [phone] PCP - General Family Practice 08/15/17 documented as of this encounter
--- OUTSIDE RECORDS SUMMARY | 2024-10-24 06:39 | XMS_ITS | Encounter Summary ---
Author Organization [facility] Address [address] [place] [address] Care Team Providers Care Wool Cleaner Name Role Phone Jasiel Freeman MD Primary Care Provider Encounter Details Date Type Department Care Team (Late st Contact Info) Description 07/31/2019 Orders Only [facility] Admitting [address] [place] [address] Annette Whitney MD [address] [facility] [address] [place] [address] Social History Tobacco Use Types Packs/Day Years [...] [facility] [place] [address] [facility] [address] [place] [address] Kitty Dover, ANP [address] [facility] 100 [place] [address] documented as of this encounter Visit Diagnoses Not on filedocumented in this encounter Care Teams Wool Cleaner Relationship Specialty Start Date End Date Jasiel Freeman MD [address] [place] [phone] PCP - General Family Practice 08/15/17 documented as of this encounter
--- OUTSIDE RECORDS SUMMARY | 2024-10-24 06:39 | XMS_ITS | Encounter Summary ---
Author Organization [facility] Address 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 provider found PCP: Jasiel [...] by intraveous injection see administration instructions Home CAR SEAT UPHOLSTERER to administer over 30 minutes every [...] much for this consultation. Annette Whitney MD [facility] Digestive Diseases CC: No ref. provider found [...] [facility] [place] [address] [place] [phone] Kitty Dover ANP [address] [place] [address] Scheduled Orders Name Type Priority Associated Diagnoses Orde r Schedule MISCELLANEOUS LAB TEST Lab Routine Ulcerative proctitis without complication Pouchitis Ordered: 01/29/2019 documented as of this encounter Visit Diagnoses Diagnosis Ulcerative proctitis without complication- Primary Pouchitis documented in this encounter Care Teams Yeast Supervisor Relationship Specialty Start Date End Date Jasiel Freeman MD [address] [place] [phone] PCP - General Family Practice 08/15/17 documented as of this encounter
--- OUTSIDE RECORDS SUMMARY | 2024-10-24 06:39 | XMS_ITS | Encounter Summary ---
Author Organization [facility] Address , [place] Care Team Providers Care Tank Truck Engine Mechanic Name Role Phone Jasiel Freemna MD Primary Care Provider Encounter Details Date Type Department Care Team (Late st Contact Info) Description 10/04/2018 Home Visit [address], [address] [place] [address] Ebony Cruz, JIE Social History [...] Comments Blood Pressure 136/84 10/04/2018 11:00 AM RADIAL DRILL PRESS OPERATOR Pulse 71 10/04/2018 11:00 AM RADIAL DRILL PRESS OPERATOR Temperature 36.6 ??C (97.8 ??F) 10/04/2018 11:[address] Respiratory Rate 16 10/04/2018 11:00 AM RADIAL DRILL PRESS OPERATOR Oxygen Saturation 97% 10/04/2018 11:00 AM RADIAL DRILL PRESS OPERATOR Inhaled Oxygen Concentration - - Weight - - Height - - Body Mass Index - - documented in this encounter Progress Notes * Ebony Cruz RN - 10/04/2018 7:08 PM CST Images from the original note were not included. [facility] [address] [facility] [address] [place] [address] Home Infusion NURSING follow up Leonidas Egdardo Elkins 1970 [address] [facility] [address] 10/04/2018 Provider - Ebony Cruz RN Driving [...] by intraveous injection see administration instructions Home OPERATIONAL RISK ANALYST to administer over 30 minutes every 8 [...] 10/04/18 16 08/09/18 16 06/14/18 16 1. penitentiary assessment and implementation of infusion [...] adverse reactions. Patient knows how to reorder medications.[facility] [...] in approximately 8 weeks for Entyvio infusion AL DRILL PRESS OPERATOR documented in this encounter Plan of Treatment Upcoming Encounters Date Type Department Care Team (Late st Contact Info) Description 02/13/2025 10:30 AM CDT Office Visit [facility]astro[facility]ology [facility] [place] [address] [place] [address] Kitty Dover ANP [address] [place] [address] documented as of this encounter Visit Diagnoses Not on filedocumented in this encounter Care Teams Tank Truck Engine Mechanic Relationship Specialty Start Date End Date Jasiel Freeman MD [address] [place] [phone] PCP - General Family Practice 08/15/17 documented as of this encounter
--- OUTSIDE RECORDS SUMMARY | 2024-10-24 06:39 | XMS_ITS | Encounter Summary ---
Author Organization [facility] Address [address] [place] [address] Care Team Providers Care Specifications Writer Name Role Phone Jasiel Freeman MD Primary Care Provider Reason for Visit * Reason Onset Date Comments Establish Care 12/06/2018 Entyvio infusion s Encounter Details Date Type Department Care Team (Late st Contact Info) Description 12/06/2018 Telephone [facility] Gastroenterology [facility] [address] [facility] [address] [place] [address] Annette Whitney MD [address] [facility] [address] [place] [address] Establish Care (Entyvio infusions) Social History Tobacco [...] Joaquina Prescott RN - 12/06/2018 1:07 PM INDUSTRIAL REGISTERED NURSE Left a second message that Entyvio was approved for [address] Nair and would not be extended further until he has established care with Dr. Nair. He needs [facility] [phone] to make the appointment. STRIAL REGISTERED NURSE documented in this encounter Plan of Treatment Upcoming Encounters Date Type Department Care Team (Late st Contact Info) Description 02/13/2025 10:30 AM CDT Office Visit [facility] Gastroenterology [facility] [place] [address] [facility] [address] [place] [address] Kitty Dover, MIRTA [address] [place] [address] documented as of this encounter Visit Diagnoses Not on filedocumented in this encounter Care Teams Specifications Writer Relationship Specialty Start Date End Date Jasiel Freeman MD [address] [place] [phone] PCP - General Family Practice 08/15/17 documented as of this encounter
--- OUTSIDE RECORDS SUMMARY | 2024-10-24 06:39 | XMS_ITS | Encounter Summary ---
Author Organization [facility] Address 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 Procedures INFUSION THERAPY Annette Whitney MD 1 [facility] [place] [address] [address] Referral ID Status Reason Start Date Expiration Date Visits Re quested Visits Authorized [id number] Closed 07/15/2019 08/14/2020 1 0 Encounter Details Date Type Department Care Team (Latest Contact Info) Description 07/15/2019 Orders Only [facility]enter[facility] [address] [facility] [address] [place] [address] Annette Whitney MD 1 [facility] [place] [address] 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 [...] [facility]astroenterology [facility] [place] [address] [facility] [address] [place] [phone] Kitty Dover [facility] [address] [facility] [address] [place] [address] documented as of this encounter Visit Diagnoses Diagnosis 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
--- OUTSIDE RECORDS SUMMARY | 2024-10-24 06:39 | XMS_ITS | Encounter Summary ---
Author Organization [facility] Address [address] [place] [address] Care Team Providers Care Comprehensive Advisor Name Role Phone Jasiel Freeman MD Primary Care Provider Reason for Visit * Reason Onset Date Comments [place] [facility] update 08/05/2019 Encounter Details Date Type Department Care Team (Late st Contact Info) Description 08/05/2019 Telephone [facility] Gastroenterology [facility] [address] [facility] [address] [place] [address] Annette Whitney MD [address] [facility] [address] [place] [address] [place] [facility] update Social History Tobacco Use Types [...] Description 02/13/2025 10:30 AM CDT Office Visit [facility] IBD and Gastroenterology [facility] [place] [address] [place] [address] Kitty Dover, [facility] [address] [place] [address] documented as of this encounter Visit Diagnoses Not on filedocumented in this encounter Care Teams Comprehensive Advisor Relationship Specialty Start Date End Date Jasiel Freeman MD [address] [place] [phone] PCP - General Family Practice 08/15/17 documented as of this encounter
--- OUTSIDE RECORDS SUMMARY | 2024-10-24 06:39 | XMS_ITS | Encounter Summary ---
Author Organization [facility] Address [address] [place] [address] Care Team Providers Care Distance Learning Technician Name Role Phone Jasiel Freeman MD Primary Care Provider Reason for Referral * Eval and Treat (Routine) - Closed Specialty Diagnoses / Procedures Referred By Contac t Referred To Contact Gastroenterology Diagnoses Ulcerative pancolitis with complication Pouchitis Annette Whitney MD 1 [facility] [place] [address] Joaquina Prescott RN Referral ID Status Reason Start Date Expiration Date V isits Requested Visits Authorized [id number] Closed CRS To Schedule (STL) 07/31/2019 07/31/2020 1 1 Encounter Details Date Type Department Care Team (Late st Contact Info) Description 07/31/2019 Orders Only [facility] Gastroenterology [place] [address] [facility] [address] [place] [address] Annette Whitney MD 1 [facility] [place] [address] Ulcerative pancolitis with complication (Primary [...] Visit [facility] Gastroenterology Center [place] [address] [place] [address] Kitty Dover ANP [address] [place] [address] [place] [phone] Scheduled Referrals Name Type Priority Associated Diagnoses Orde r Schedule AMB REFERRAL TO NURSE NAVIGATOR Outpatient Referral Routine Ulcerative pancolitis with complication Pouchitis Ordered: 07/31/2019 documented as of this encounter Visit Diagnoses Diagnosis Ulcerative pancolitis with complication- Primary Pouchitis documented in this encounter Care Teams Distance Learning Technician Relationship Specialty Start Date End Date Jasiel Freeman MD [address] [place] [phone] PCP - General Family Practice 08/15/17 documented as of this encounter
--- OUTSIDE RECORDS SUMMARY | 2024-10-24 06:39 | XMS_ITS | Encounter Summary ---
Author Organization [facility] Address , [place] Care Team Providers Care Elementary School Director Name Role Phone Jasiel Freeman MD Primary Care Provider Encounter Details Date Type Department Care Team (Late st Contact Info) Description 08/09/2018 Home Visit [address], [address] [place] [address] Ebony Cruz, JIE Social History [...] the original note were not included. [facility] [address] [place] [address] Home Infusion NURSING follow up Haylieraad Elkins 1970 [address] [facility] [address] 08/09/2018 Provider - Ebony Cruz RN Driving [...] by intraveous injection see administration instructions Home FORENSIC PSYCHIATRIST to administer over 30 minutes every 8 weeks.. 300 mg 6 ??? metroNIDAZOLE (FLAGYL) 250 mg tablet Take 1 Tablet (250 mg) by mouth 3 times daily. 90 Tablet 0 ??? TESTOSTERONE, BULK, MISC 1 mL by Misc.(Non-Drug; Combo Route) route. No current facility-administered medications on file prior to visit. No problem observed with learning needs - No cultural, scientology, or language barriers to learning Patient and [...] 08/09/18 16 06/14/18 16 04/19/18 16 1. shelter assessment and implementation of [...] Patient knows how to reorder medications. [facility] [...] [place] [address] [place] [address] Kitty Dover ANP [address] [place] [address] documented as of this encounter Visit Diagnoses Not on filedocumented in this encounter Care Teams Elementary School Director Relationship Specialty Start Date End Date Jasiel Freeman MD [address] [place] [phone] PCP - General Family Practice 08/15/17 documented as of this encounter
--- OUTSIDE RECORDS SUMMARY | 2024-10-24 06:39 | XMS_ITS | Encounter Summary ---
Author Organization [facility] Address [address] [place] [address] Care Team Providers Care Metal Spraying Machine Operator Name Role Phone Jasiel Freeman MD Primary Care Provider Reason for Visit * Reason Onset Date Comments New Prescription Request 11/26/2018 Encounter Details Date Type Department Care Team (Late st Contact Info) Description 11/26/[address] [facility] Gastroenterology [facility] [address] [facility] [address] [place] [address] Annette Whitney MD [address] [facility] [address] DIV [place] [address] New Prescription Request Social History Tobacco Use [...] Joaquina Prescott RN - 11/26/2018 2:46 PM [facility] called, he is due for next Entyvio next week. Per Dr. Nair, we will extend it for 3 infusions and need to get him in to see her for office visit since he hasn't been seen since September 2017. Left VM indicating the above. When appointment is made will also order some blood work to be done prior. Joaquina Prescott [facility] documented in this encounter Plan of Treatment Upcoming Encounters Date Type Department Care Team (Late st Contact Info) Description 02/13/2025 10:30 AM CDT Office Visit [facility] [place] [address] [facility] [address] [place] [address] Kitty Dover, MIRTA [address] [place] [address] documented as of this encounter Visit Diagnoses Not on filedocumented in this encounter Care Teams Metal Spraying Machine Operator Relationship Specialty Start Date End Date Jasiel Freeman MD [address] [place] [phone] PCP - General Family Practice 08/15/17 documented as of this encounter
--- OUTSIDE RECORDS SUMMARY | 2024-10-24 06:39 | XMS_ITS | Encounter Summary ---
Author Organization [facility] Address , [place] Care Team Providers Care Shot Bagger Name Role Phone Jasiel Freeman MD Primary Care Provider Encounter Details Date Type Department Care Team (Late st Contact Info) Description 05/15/2019 Home Visit [address], [address] [place] [address] Irina Wyatt RN Social History [...] original note were not included. [facility] [address] [facility] [address] [place] [address] Home Infusion NURSING follow up Leonidas Edgardo Palomino Brittni 1970 [address] [facility] [address] 05/15/19 Provider - Irina Wyatt RN Driving [...] by intraveous injection see administration instructions Home SKIN WASHER to administer over 30 minutes every 8 [...] observed with learning needs - No cultural, religion, or language barriers to learning Patient and [...] 03/21/19 16 01/24/19 16 11/29/18 16 1. FDC assessment and implementation of [...] reactions. Patient knows how to reorder medications. [facility] will dispense [...] [facility] Gastroenterology [facility] [place] [address] [place] [address] Kitty Dover ANP [address] [place] [address] documented as of this encounter Visit Diagnoses Not on filedocumented in this encounter Care Teams Shot Bagger Relationship Specialty Start Date End Date Jasiel Freeman MD 5 [place] [phone] PCP - General Family Practice 08/15/17 documented as of this encounter
--- OUTSIDE RECORDS SUMMARY | 2024-10-24 06:39 | XMS_ITS | Encounter Summary ---
Author Organization [facility] Address [address] [place] [address] Care Team Providers Care Scientific Director Name Role Phone Jasiel Freeman MD Primary Care Provider Reason for Visit * Reason Onset Date Comments Appointment Notification 08/08/2019 Encounter Details Date Type Department Care Team (Late st Contact Info) Description 08/08/2019 Telephone [facility] [place] [address] [place] [address] Yulissa Pike, URVASHI [address] [place] [address] Appointment Notification Social History Tobacco [...] [facility] [place] [address] [facility] [address] [place] [address] Kitty Dover, MIRTA [address] [facility] 100 [place] [address] documented as of this encounter Visit Diagnoses Not on filedocumented in this encounter Care Teams Scientific Director Relationship Specialty Start Date End Date Jasiel Freeman MD [address] [place] [phone] PCP - General Family Practice 08/15/17 documented as of this encounter
--- OUTSIDE RECORDS SUMMARY | 2024-10-24 06:39 | XMS_ITS | Encounter Summary ---
Author Organization [facility] Address [address] [place] [address] Care Team Providers Care Project Development Coordinator Name Role Phone Jasiel Freeman MD Primary Care Provider Encounter Details Date Type Department Care Team (Late st Contact Info) Description 08/08/2019 Specialty Pharmacy [facility] [place] [address] [place] [phone] Thanh Solares, PHARMACIST Social History Tobacco Use [...] original note were not included. [facility] [place] Edgardoisaiah Elkins 48 y.o. / male Patient's address on file: [address] [address] Home Phone Work Phone Home Infusion Order [...] (through 05/26/19) Per: Caren / KESHA Whitney [facility] Gastroenterology [address], [address] [place] [address] Generic substitution permitted Detailed Home Infusion Orders [...] RN will take any ordered labs to [facility] when possible. If labs are not taken to a [facility] lab, it is the responsibility of nursing to make sure labs are faxed to the pharmacy at [phone] Whitney. Catheter Care Catheter type: PIV placed by BUSINESS ANALYTICS MANAGER prior to each infusion Flush IV [...] lab draws/line complications. ?? Flushes provided by [facility] Specialty and Infusion pharmacy [...] Elkins (48 y.o. male) is active with [facility] Specialty and Infusion services receiving Entyvio every 8 weeks at home for ulcerative colitis. ?? Edgardo is due for his next infusion this week. Pharmacist contacted BUSINESS ANALYTICS MANAGER to coordinate delivery. RN will picker/puller today. Patient received last infusion without issue. No questions or concerns at this time. Patient has appointment with Dr. Nair on 01/29. 05/13/19 - Spoke with the patient who stated he is doing well. He has had no changes in his medication therapy or no clinical issues. Will ship medications and supplies to the patient. Thanh Solares MBA, [facility] [...] Whitney Home Infusion Care Team IV Pharmacy: [facility] / [phone] Nursing Agency: [facility] Physician(s): Dr. Whitney Additional Relevant Data Insurance Information: Payor: RX [employer] / Plan: RX PCS ADVANCE PARADIGM / Product Type: RX [employer] / IV access PIV placed by BUSINESS ANALYTICS MANAGER prior to each infusion Ht Readings [...] level: Not on file Occupational History Employer: [employer] Employer: [employer]ILIA Nolan Social Needs ??? [...] file Gets together: Not on file Attends yarsani service: Not on file Active member of [...] Rfl: 0 ??? Cyanocobalamin (NASCOBAL) 500 mcg/spray [place], Non-Aerosol, 1 [place] by See Admin Instructions route every 7 [...] by intraveous injection see administration instructions. Home BUSINESS ANALYTICS MANAGER to administer over 30 minutes every [...] Provided to Patient ?? Pharmacist offer to reimbursement counselor ?? RN instruction ?? Printed teaching sheets ?? Drug information paperwork - [facility] patient leaflet FADI Silverman [facility] Specialty & [facility]fusion - [place] [address] [address] , [address] [place] [address] documented in this encounter Plan of Treatment Upcoming Encounters Date Type Department Care Team (Late st Contact Info) Description 02/13/2025 10:30 AM CDT Office Visit [facility] IBD and Gastroenterology Center [place] [address] [facility] [address] [place] [address] Kitty Dover, MIRTA [address] [facility] [address] [place] [address] documented as of this encounter Visit Diagnoses Not on filedocumented in this encounter Care Teams Project Development Coordinator Relationship Specialty Start Date End Date Jasiel Freeman MD [address] [place] [phone] PCP - General Family Practice 08/15/17 documented as of this encounter
--- OUTSIDE RECORDS SUMMARY | 2024-10-24 06:39 | XMS_ITS | Encounter Summary ---
Author Organization [facility] Address [address] [place] [address] Care Team Providers Care Transportation Manager Name Role Phone Jasiel Freeman MD Primary Care Provider Encounter Details Date Type Department Care Team (Late st Contact Info) Description 06/28/2019 Specialty Pharmacy [facility] [place] [address] [place] [phone] Mariia Douglass PHARMACIST Specialty Pharmacy Home Infusion [...] Patient's specialty pharmacy benefit requires dispense by [facility] Specialty pharmacy.Contacted [facility] Specialty pharmacy ([phone]) to ensure they could adequately provide services for a home infusion patient and was told that nursing services would be contracted through [facility] and that medication and supplies would be provided by [facility] Specialty pharmacy. Physician's office would need to contact the pharmacy to request medication, supply and nursing order form. Patient has alreadybeen set up with an account at [facility] Specialty pharmacy. Contacted Dr Whitney's office to relay above information and provided the office with contact information. Also advised that patient is due for his next Entyvio infusion on 07/10/19. Will discharge patient from [facility] Specialty and Home Infusion pharmacy services. Mariia Harrington, PHARMACIST documented in this encounter Plan of Treatment Upcoming Encounters Date Type Department Care Team (Late st Contact Info) Description 02/13/2025 10:30 AM CDT Office Visit [facility] IBD and Gastroenterology Center [place] [address] [place] [phone] Kitty Dover, MIRTA [address] [place] [address] [place] [address] documented as of this encounter Visit Diagnoses Not on filedocumented in this encounter Care Teams Transportation Manager Relationship Specialty Start Date End Date Jasiel Freeman MD [address] [place] [phone] PCP - General Family Practice 08/15/17 documented as of this encounter
--- OUTSIDE RECORDS SUMMARY | 2024-10-24 06:39 | XMS_ITS | Encounter Summary ---
Author Organization [facility] Address [address] [place] [address] Care Team Providers Care Tea Plantation Worker Name Role Phone Jasiel Freeman MD Primary Care Provider [phone] Reason for Visit * Reason Onset Date Comments Entyvio - refill 05/13/2019 Encounter Details Date Type Department Care Team (Late st Contact Info) Description 05/13/2019 Telephone [facility] [address] [address] Thanh Solares, PHARMACIST Entyvio - [...] included. [facility] Specialty & Infusion - [place] Edgardo Elkins 48 y.o. / male Patient's address on file: [address] [address] Home Phone Work Phone Home Infusion Order [...] (through 05/26/19) Per: Caren / KESHA Whitney [facility] Gastroenterology [address], [address] [facility] [address] Generic substitution permitted Detailed Home Infusion Orders [...] labs are faxed to the pharmacy at [phone] Whitney. Catheter Care Catheter type: PIV placed by BRANCH BANKER prior to each infusion Flush IV catheter [...] Elkins (48 y.o. male) is active with [facility] Specialty and Infusion services receiving Entyvio every 8 weeks at home for ulcerative colitis. ?? Edgardo is due for his next infusion this week. Pharmacist contacted BRANCH BANKER to coordinate delivery. RN will diamond picker today. Patient received last infusion without issue. No questions or concerns at this time. Patient has appointment with Dr. Nair on 01/29. 05/13/19 - Spoke with the patient who stated he is doing well. He has had no changes in his medication therapy or no clinical issues. Will ship medications and supplies to the patient. Thanh Solares MBA, [facility] Timeline/Summary of Home Infusion Therapy: 11/15/17 - Start of Care / Entyvio week 0 11/29/17 - Week 2 12/28/17 - Week 6 02/21/18 - Begin maintenance dose every 8 weeks 11/26/18 - Approved x [address] Whitney Home Infusion Care Team IV Pharmacy: [facility] Infusion / [phone] Nursing Agency: [facility] Infusion Physician(s): Dr. Whitney Additional Relevant Data Insurance Information: Payor: AETNA / Plan: AETNA CHOICE POS II / Product Type: Commercial / Note: This is the primary coverage, but no account was found for this location or the patient's primary location. IV access PIV placed by BRANCH BANKER prior to each infusion Ht Readings from [...] level: Not on file Occupational History Employer: [employer] Employer: [employer] Nolan Social Needs ??? Financial [...] file Gets together: Not on file Attends samaritan service: Not on file Active member of [...] by intraveous injection see administration instructions Home BRANCH BANKER to administer over 30 minutes every 8 [...] Provided to Patient ?? Pharmacist offer to deputy chief counsel ?? RN instruction ?? Printed teaching sheets ?? Drug information paperwork - [facility] patient leaflet FADI Silverman [facility] Specialty & Infusion [address], [address] [place] [address] documented in this encounter Plan of Treatment Upcoming Encounters Date Type Department Care Team (Late st Contact Info) Description 02/13/2025 10:30 AM CDT Office Visit [facility] IBD and Gastroenterology Center [place] [address] [place] [address] Kitty Dover ANP [address] [place] [address] documented as of this encounter Visit Diagnoses Not on filedocumented in this encounter Care Teams Tea Plantation Worker Relationship Specialty Start Date End Date Jasiel Freeman MD [address] [place] [phone] PCP - General Family Practice 08/15/17 documented as of this encounter
--- OUTSIDE RECORDS SUMMARY | 2024-10-24 06:39 | XMS_ITS | Encounter Summary ---
Author Organization [facility] Address [address] [place] [address] Care Team Providers Care Denture Laboratory Technician Name Role Phone Jasiel Freeman MD Primary Care Provider Encounter Details Date Type Department Care Team (Late Contact Info) Description 07/31/2019 Abstract [facility] Gastroenterology [facility] [address] [place] [address] Annette Whitney MD [address] [facility] [place] [phone] Social History Tobacco Use Types Packs/Day Years [...] Office Visit [facility] IBD and Gastroenterology [place] [address] [facility] [address] [place] [address] Kitty Dover, ANP [address] [facility] [address] [place] [address] documented as of this encounter Visit Diagnoses Not on filedocumented in this encounter Care Teams Denture Laboratory Technician Relationship Specialty Start Date End Date Jasiel Freeman MD [address] [place] [phone] PCP - General Family Practice 08/15/17 documented as of this encounter
--- OUTSIDE RECORDS SUMMARY | 2024-10-24 06:39 | XMS_ITS | Encounter Summary ---
Author Organization [facility] Address [address] [place] [address] Care Team Providers Care Mens Locker Room Attendant Name Role Phone Jasiel Freeman MD Primary Care Provider [phone] Reason for Visit * Reason Onset Date Comments Entyvio - refill 03/19/2019 Encounter Details Date Type Department Care Team (Late st Contact Info) Description 03/19/2019 Telephone [facility] Specialty Pharmacy [address] [address] Thanh Solares, PHARMACIST Entyvio - [...] not included. [facility] Specialty & Infusion - [place] Edgardo Elkins 48 y.o. / male Patient's address on file: [address] [address] Home Phone Work Phone Home Infusion Order [...] KESHA Whitney [facility] Gastroenterology [address], [address] [facility] [address] Generic substitution permitted Detailed Home Infusion Orders [...] labs to [facility] when possible. If labs are not taken to a [facility] lab, it is the responsibility of nursing to make sure labs are faxed to the pharmacy at [phone] Whitney. Catheter Care Catheter type: PIV placed by THERMOSTAT MAKER prior to each infusion Flush IV [...] provided by [facility] Specialty and Infusion pharmacy are for use [...] active with [facility] Specialty and Infusion services receiving Entyvio every 8 weeks at home for ulcerative colitis. ?? Edgardo is due for his next infusion this week. Pharmacist contacted THERMOSTAT MAKER to coordinate delivery. RN will slat pickler today. Patient received last infusion without [...] Whitney Home Infusion Care Team IV Pharmacy: [facility] Infusion / [phone] Nursing Agency: [facility] Physician(s): Dr. Whitney Additional Relevant Data Insurance Information: Payor: AETNA / Plan: AETNA CHOICE POS II / Product Type: Commercial / Note: This is the primary coverage, but no account was found for this location or the patient's primary location. IV access PIV placed by THERMOSTAT MAKER prior to each infusion Ht Readings [...] level: Not on file Occupational History Employer: [employer] Employer: [employer] Social Needs ??? Financial [...] by intraveous injection see administration instructions Home THERMOSTAT MAKER to administer over 30 minutes every [...] Provided to Patient ?? Pharmacist offer to after school counselor ?? RN instruction ?? Printed teaching sheets ?? Drug information paperwork - [facility] patient leaflet FADI Silverman [facility]fusion [facility] [id number] [place] [address] , [address] [place] [address] documented in this encounter Plan of Treatment Upcoming Encounters Date Type Department Care Team (Late st Contact Info) Description 02/13/2025 10:30 AM CDT Office Visit [facility] IBD and Gastroenterology Center [place] [address] [facility] [address] [place] [address] Kitty Dover ANP [address] [place] [address] [facility] [address] [place] [address] documented as of this encounter Visit Diagnoses Not on filedocumented in this encounter Care Teams Mens Locker Room Attendant Relationship Specialty Start Date End Date Jasiel Freeman MD [address] [place] [phone] PCP - General Family Practice 08/15/17 documented as of this encounter
--- OUTSIDE RECORDS SUMMARY | 2024-10-24 06:39 | XMS_ITS | Encounter Summary ---
Author Organization [facility] Address , [place] Care Team Providers Care Bench Hand Name Role Phone Jasiel Freeman MD Primary Care Provider [phone] Encounter Details Date Type Department Care Team (Late st Contact Info) Description 01/24/2019 Home Visit [address], [address] [place] [address] Irina Wyatt RN Social History [...] [facility] [address] [facility] [employer] [address] [place] [address] Home Infusion NURSING follow up Haylieraad Elkins 1970 [address] [facility] [address] 01/24/19 Provider - Irina Wyatt RN Driving [...] by intraveous injection see administration instructions Home RESTAURANT SUPERVISOR to administer over 30 minutes every [...] observed with learning needs - No cultural, taoism, or language barriers to learning Patient and [...] 01/24/19 16 11/29/18 16 10/04/18 16 1. senior care assessment and implementation of [...] [place] [address] [place] [address] Kitty Dover ANP [address] [place] [address] documented as of this encounter Visit Diagnoses Not on filedocumented in this encounter Care Teams Bench Hand Relationship Specialty Start Date End Date Jasiel Freeman MD [address] [place] [phone] PCP - General Family Practice 08/15/17 documented as of this encounter
--- OUTSIDE RECORDS SUMMARY | 2024-10-24 06:39 | XMS_ITS | Encounter Summary ---
Author Organization [facility] Address [address] [place] [address] Care Team Providers Care Grouter Helper Name Role Phone Jasiel Freeamn MD Primary Care Provider [phone] Reason for Visit * Reason Onset Date Comments Medication Problem 08/30/2018 Encounter Details Date Type Department Care Team (Late st Contact Info) Description 08/30/2018 Telephone [facility] GASTR[facility]ENTEROLOGY [address] [facility] [facility] [address] [place] [address] Lane Ryan MD NO ADDRESS [...] script for Flagyl. It was sent to [facility] for sadia to cancel Called [facility] in [facility] and gave verbal. SS SERVICE REPRESENTATIVE documented in this encounter Plan of Treatment Upcoming Encounters Date Type Department Care Team (Late st Contact Info) Description 02/13/2025 10:30 AM CDT Office Visit [facility] IBD and Gastroenterology Center [place] [address] [place] [address] Kitty Dover, MIRTA [address] [place] [address] [place] [address] documented as of this encounter Visit Diagnoses Not on filedocumented in this encounter Care Teams Grouter Helper Relationship Specialty Start Date End Date Jasiel Freeman MD [address] [place] [phone] PCP - General Family Practice 08/15/17 documented as of this encounter
--- OUTSIDE RECORDS SUMMARY | 2024-10-24 06:39 | XMS_ITS | Encounter Summary ---
Author Organization [facility] Address , [place] Care Team Providers Care Checking Clerk Name Role Phone Jasiel Freeman MD Primary Care Provider Reason for Visit * Reason Onset Date Comments IV Med 2018 Encounter Details Date Type Department Care Team (Late st Contact Info) Description 2018 Telephone [facility] [address] [place] [address], [address] [place] [address] Jameson Borja, PHARMACIST IV Med [...] Jameson Borja, PHARMACIST - 2018 5:15 PM VALIDATION MANAGER [facility] Care Plan Demographics Edgardo Elkins 48 y.o. / male Patient's address on file: [address] [place] [address] Patient's current location: Same as above Patient Contact Information: Home Phone Work Phone Insurance Information: Aetna Choice POS II Home Infusion Care Team IV Pharmacy: [facility] / [phone] Nursing: [facility] Physician(s): Dr. Lane Ryan IV access PIV placed by RN prior to each infusion Progress Note Patient admitted to IT services upon referral from physician. Patient to receive Entyvio at home every 8 weeks for ulcerative colitis. Edgardo is due for his next infusion tomorrow. Pharmacist contacted INSURANCE CLAIMS CLERK Ebony to coordinate delivery. Will send medication to INSURANCE CLAIMS CLERK and she will bring with her. 10/01/18 [...] by intraveous injection see administration instructions Home INSURANCE CLAIMS CLERK to administer over 30 minutes every [...] updated and reviewed by Jameson Borja, PHARMACIST [facility] Specialty & Home Infusion [address] , [address] [place] [address] DATION MANAGER documented in this encounter Plan of Treatment Upcoming Encounters Date Type Department Care Team (Late st Contact Info) Description 02/13/2025 10:30 AM CDT Office Visit [facility] IBD and Gastroenterology Center [place] [address] [place] [address] Kitty Dover, MIRTA [address] [place] [address] documented as of this encounter Visit Diagnoses Not on filedocumented in this encounter Care Teams Checking Clerk Relationship Specialty Start Date End Date Jasiel Freeman MD [address] [place] [phone] PCP - General Family Practice 08/15/17 documented as of this encounter
--- OUTSIDE RECORDS SUMMARY | 2024-10-24 06:39 | XMS_ITS | Encounter Summary ---
Author Organization [facility] Address [address] [place] [address] Care Team Providers Care Filter Press Tender Head Name Role Phone Jasiel Freeman MD Primary Care Provider Encounter Details Date Type Department Care Team (Late st Contact Info) Description 07/18/2019 Chart Note [facility] Gastroenterology [facility] [address] [facility] [address] [place] [address] Annette Whitney MD [address] [facility] [address] [place] [address] Social History Tobacco Use Types Packs/Day Years [...] - 07/18/2019 9:05 AM CDT Called Ana @[place] [phone] she is working on PA she has [...] [facility] IBD and Gastroenterology Center [place] [address] [place] [address] Kitty Dover ANP [address] [place] [address] [place] [address] documented as of this encounter Visit Diagnoses Not on filedocumented in this encounter Care Teams Filter Press Tender Head Relationship Specialty Start Date End Date Jasiel Freeman MD [address] [place] [phone] PCP - General Family Practice 08/15/17 documented as of this encounter
--- OUTSIDE RECORDS SUMMARY | 2024-10-24 06:39 | XMS_ITS | Encounter Summary ---
Author Organization [facility] Address [address] [place] [address] Care Team Providers Care Street Vendor Name Role Phone Jasiel Freeman MD Primary Care Provider Reason for Visit * Reason Comments Insurance Issues Entyvio with Aetna-c ontinuation of home infusions Encounter Details Date Type Department Care Team (Late st Contact Info) Description 08/07/2019 Chart Note [facility] Gastroenterology [facility] [address] [address] Joaquina Prescott, RN Insurance Issues [...] time. The Precertification Pending Reference # is [id number] infusion of the Entyvio has been approved.We are waiting for the approval of facility ([facility]). If approved, it will be for evgrmm12 days or 6 months. Their number is [phone] and fax number is [phone] documented in this encounter Plan of Treatment Upcoming Encounters Date Type Department Care Team (Late st Contact Info) Description 02/13/2025 10:30 AM CDT Office Visit [facility] IBD and Gastroenterology [facility] [address] [facility] [address] [place] [address] Kitty Dover, MIRTA [address] [facility] [address] [place] [phone] documented as of this encounter Visit Diagnoses Not on filedocumented in this encounter Care Teams Street Vendor Relationship Specialty Start Date End Date Jasiel Freeman MD [address] [place] [phone] PCP - General Family Practice 08/15/17 documented as of this encounter
--- OUTSIDE RECORDS SUMMARY | 2024-10-24 06:39 | XMS_ITS | Encounter Summary ---
Author Organization [facility] Address , [place] Care Team Providers Care Telecommunications Manager Name Role Phone Jasiel Freeman MD Primary Care Provider Encounter Details Date Type Department Care Team (Late st Contact Info) Description 01/22/[address], [address] [place] [address] John Avina PHARMACIST Social History [...] original note were not included. [facility] [place] Edgardo Elkins 48 y.o. / male Patient's address on file: [address] [place] [phone] Home Phone Work Phone Home Infusion Order [...] [facility] G[facility]enterology [address], [address] [place] [address] Generic substitution permitted Detailed Home Infusion Orders [...] RN will take any ordered labs to [facility] when possible. If labs are not taken to a [facility] lab, it is the responsibility of nursing to make sure labs are faxed to the pharmacy at [phone] [place]. Catheter Care Catheter type: PIV placed by AGED OR DISABLED CARE WORKER prior to each infusion Flush IV [...] lab draws/line complications. ?? Flushes provided by [facility] pharmacy are for [...] Elkins (48 y.o. male) is active with [facility] services receiving Entyvio every 8 weeks at home for ulcerative colitis. ?? Edgardo is due for his next infusion this week. Pharmacist contacted AGED OR DISABLED CARE WORKER to coordinate delivery. RN will mixing picker tender today. Patient received last infusion without issue. [...] [place] [facility] Infusion Care Team IV Pharmacy: [facility] / [phone] Nursing Agency: [facility] Physician(s): Dr. [place] Additional Relevant Data Insurance Information: Payor: [employer] / Plan: [employer] CHOICE POS II / Product Type: Commercial / Note: This is the primary coverage, but no account was found for this location or the patient's primary location. IV access PIV placed by AGED OR DISABLED CARE WORKER prior to each infusion Ht Readings [...] by intraveous injection see administration instructions Home AGED OR DISABLED CARE WORKER to administer over 30 minutes every [...] Provided to Patient ?? Pharmacist offer to field counsel ?? RN instruction ?? Printed teaching sheets ?? Drug information paperwork - [facility] patient leaflet John Avina PHARMACIST [facility] [address] , [address] [place] [address] documented in this encounter Plan of Treatment Upcoming Encounters Date Type Department Care Team (Late st Contact Info) Description 02/13/2025 10:30 AM CDT Office Visit [facility] Gastroenterology Center [place] [address] [facility] [address] [place] [address] [place], MIRTA [address] [place] [address] [place] [address] documented as of this encounter Visit Diagnoses Not on filedocumented in this encounter Care Teams Telecommunications Manager Relationship Specialty Start Date End Date Jasiel Freeman MD [address] [place] [address] PCP - General Family Practice 08/15/17 documented as of this encounter
--- OUTSIDE RECORDS SUMMARY | 2024-10-24 06:39 | XMS_ITS | Encounter Summary ---
Author Organization [facility] Address [address] [place] [address] Care Team Providers Care Promotional Advertising Assistant Name Role Phone Jasiel Freeman MD Primary Care Provider Encounter Details Date Type Department Care Team (Late Contact Info) Description 07/17/2019 Orders Only [facility] Gastroenterology [facility] [address] [place] [address] Annette [place] MD 1 [facility] [place] [phone] Social History Tobacco Use Types Packs/Day Years [...] AM CDT Office Visit [facility] Gastroenterology [place] [address] [facility] [address] [place] [address] [place], ANP [address] [facility] 100 [place] [address] documented as of this encounter Visit Diagnoses Not on filedocumented in this encounter Care Teams Promotional Advertising Assistant Relationship Specialty Start Date End Date Jasiel Freeman MD [address] [place] [phone] PCP - General Family Practice 08/15/17 documented as of this encounter
--- OUTSIDE RECORDS SUMMARY | 2024-10-24 06:39 | XMS_ITS | Encounter Summary ---
Author Organization [facility] Address [address] [place] [address] Care Team Providers Care Scrap Carrier Name Role Phone Jasiel Freeman MD Primary Care Provider Encounter Details Date Type Department Care Team (Latest Contact Info) Description 01/29/2019 9:30 AM CDT - 01/29/2019 11:59 PM CDT Hospital Encounter [facility] Laboratory Services [facility] [place] [address], [place] [address] Annette [place] MD [address] [facility] [address] [place] [address] Discharge Disposition: Home or Self Care Social [...] by intraveous injection see administration instructions Home FITNESS AND WELLNESS DIRECTOR to administer over 30 minutes every [...] Description 02/13/2025 10:30 AM CDT Office Visit [facility] IBD and Gastroenterology Center [place] [address] [facility] [address] [place] [address] [place], MIRTA [address] [facility] [address] [place] [address] documented as of this encounter [...] TB GOLD (01/29/2019 9:34 AM CDT) Pathologist [facility] QUANTIFERON TB GOLD PLUS Negative Negative 02/01/2019 12:01 PM CDT [facility] Comment: No interferon-gamma response to [...] NIL 0.00 IU/mL 02/01/2019 12:01 PM CDT [facility] TB2 AG - NIL 0.00 IU/mL 02/01/2019 12:01 PM CDT [facility] MITOGEN-NIL 8.92 IU/mL 02/01/2019 12:01 PM CDT [facility] NIL 0.01 IU/mL 02/01/2019 12:01 PM CDT [facility] Comment: Test Performed by: [address] [address] Blood Venipuncture / Unknown 01/29/2019 9:34 AM CDT 01/29/2019 9:54 AM CDT Annette [place] MD CHEMISTRY SHELBY PRITCHETT [facility] * C-REACTIVE PROTEIN (01/29/2019 9:34 AM CDT) Pathologist [facility] CRP 3.7 <5.0 mg/L 01/29/2019 10:45 AM CDT [facility] Blood Venipuncture / Unknown 01/29/2019 9:34 AM CDT 01/29/2019 9:54 AM CDT Annette [place] MD CHEMISTRY SHELBY PRITCHETT [facility] CLIA# [id number] [address] [facility] [place] [address] * (ABNORMAL) COMPREHENSIVE METABOLIC PANEL (01/29/2019 9:34 AM CDT) SODIUM 141 136 - 145 mmol/L 01/29/2019 10:45 AM [facility] POTASSIUM 4.2 3.5 - 5.0 mmol/L 01/29/2019 10:45 AM [facility] CHLORIDE 105 98 - 107 mmol/L 01/29/2019 10:45 AM [facility] CO2 25 22 - 29 mmol/L 01/29/2019 10:45 AM [facility] CALCIUM 9.4 8.6 - 10.2 mg/dL 01/29/2019 10:45 AM [facility] BUN 12 6 - 20 mg/dL 01/29/2019 10:45 AM [facility] CREATININE 1.24(H) 0.67 - 1.17 mg/dL 01/29/2019 10:45 AM [facility] GLUCOSE 111(H) 74 - 99 mg/dL 01/29/2019 10:45 AM [facility] TOTAL PROTEIN 7.4 6.7 - 8.6 g/dL 01/29/2019 10:45 AM [facility] ALBUMIN 3.9 3.5 - 5.2 g/dL 01/29/2019 10:45 AM [facility] BILIRUBIN TOTAL 0.4 0.3 - 1.2 mg/dL 01/29/2019 10:45 AM [facility] ALKALINE PHOSPHATASE 74 40 - 129 U/L 01/29/2019 10:45 AM T [facility] AST 23 <41 U/L 01/29/2019 10:45 AM T [facility] ALT 24 <42 U/L 01/29/2019 10:45 AM T [facility] GFR >60 >=60 mL/min/1.7 3 sq meter 01/29/2019 10:45 AM T [facility] Comment: eGFR has not been validated for [...] mL/min/1.7 3 sq meter 01/29/2019 10:45 AM [facility] [facility] ANION GAP 11 8 - 16 mmol/L 01/29/2019 10:45 AM [facility] [employer] [facility] Blood Venipuncture / Unknown 01/29/2019 9:34 AM CDT 01/29/2019 9:54 AM CDT Narrative [facility] - 01/29/2019 10:45 AM CDT Samples containing indocyanine green cause interferences on Total and/or Direct Bilirubin and must not be measured. Annette [place] MD CHEMISTRY SHELBY PRITCHETT [facility] [employer] [facility] [id number] 5 [facility] [place] [address] * (ABNORMAL) CBC WITH DIFFERENTIAL (01/29/2019 9:34 AM CDT) WBC 5.0 4.0 - 9.8 K/uL 01/29/2019 10:10 AM [employer] LABORATORY SERVICES - [facility] RBC 6.43(H) 4.50 - 5.40 M/uL 01/29/2019 10:10 AM [employer] [facility]ORY [facility] - [facility] HEMOGLOBIN 18.4(H) 13.6 - 16.5 g/dL 01/29/2019 10:10 AM [employer] [facility] - [facility] HEMATOCRIT 56.8(H) 40.0 - 48.0 % 01/29/2019 10:10 AM [employer] [facility] - [facility] MCV 88.3 82.0 - 99.0 fL 01/29/2019 10:10 AM [employer] [facility] - [facility] MCH 28.6 27.2 - 32.6 pg 01/29/2019 10:10 AM [employer] [facility] - [facility] MCHC 32.4 31.5 - 35.5 g/dL 01/29/2019 10:10 AM [employer] [facility] - [facility] RDW 14.2 11.5 - 14.5 % 01/29/2019 10:10 AM [employer] [facility] - [facility] RDW-STDEV 44.8 37.1 - 48.7 fL 01/29/2019 10:10 AM [employer] [facility] - [facility] PLATELETS 303 140 - 350 K/uL 01/29/2019 10:10 AM [employer] [facility] - [facility] MPV 9.8 9.3 - 12.4 fL 01/29/2019 10:10 AM [employer] [facility] - [facility] NEUTROPHILS 64 % 01/29/2019 10:10 AM [employer] [facility] - . [place] LYMPHOCYTES 22 % 01/29/2019 10:10 AM [employer] LAB[facility]ATORY SERVICES - . [place] MONOCYTES 10 % 01/29/2019 10:10 AM [employer] [facility] - . [place] EOSINOPHILS 3 % 01/29/2019 10:10 AM [employer] [facility] - . [place] BASOPHILS 1 % 01/29/2019 10:10 AM [employer] LABORATORY SERVICES - . [facility] IMMATURE GRANULOCYTES 0 % 01/29/2019 10:10 AM [employer] [facility] - [facility] NEUTROPHIL ABSOLUTE 3.24 1.90 - 7.00 K/uL 01/29/2019 10:10 AM [employer] [facility] - [facility] LYMPHOCYTE ABSOLUTE 1.11 0.70 - 4.50 K/uL 01/29/2019 10:10 AM CDT [facility] MONOCYTE ABSOLUTE 0.49 0.10 - 1.30 K/uL 01/29/2019 10:10 AM CDT [facility] - . [place] EOSINOPHIL ABSOLUTE 0.13 0.00 - 0.70 K/uL 01/29/2019 10:10 AM CDT [facility] - . [place] BASOPHILS ABSOLUTE 0.04 0.00 - 0.20 K/uL 01/29/2019 10:10 AM CDT [facility] - [facility] IMMATURE GRANULOCYTES ABSOLUTE 0.02 0.00 - 0.03 K/uL 01/29/2019 10:10 AM CDT [facility] Blood Venipuncture / Unknown 01/29/2019 9:34 AM CDT 01/29/2019 9:54 AM CDT Annette [place] MD HEMATOLOGY ORD MAYELABLES Performing Organization Address City/[facility]/ZIP Co de Phone Number [facility] [employer] [facility] [id number] 5 [place] [address] * (ABNORMAL) VITAMIN D 25 HYDROXY (01/29/2019 9:34 AM CDT) [facility] VITAMIN D TOTAL (25OH) 16(L) 30 - 100 ng/mL 01/29/2019 10:55 AM CDT [facility] [employer] [facility] Blood Venipuncture / Unknown 01/29/2019 9:34 AM CDT 01/29/2019 9:54 AM CDT Narrative [facility] - 01/29/2019 10:55 AM CDT Interpretive Data Chart: Deficient: 0 - 20 ng/mL Insufficient: 21 - 29 ng/mL Sufficient: 30 - 100 ng/mL Increased Risk of Hypercalciuria: >100 ng/mL Toxic: >150 ng/mL Annette [place] MD CHEMISTRY ORDToño PRITCHETT [facility] LABORATORY SERVICES [facility]# [id number] [address] [place] [address] documented in this encounter 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
--- OUTSIDE RECORDS SUMMARY | 2024-10-24 06:39 | XMS_ITS | Encounter Summary ---
Author Organization [facility] Address [address] [place] [address] Care Team Providers Care Felt Hat Pouncing Operator Hand Name Role Phone Jasiel Freeman MD Primary Care Provider Encounter Details Date Type Department Care Team (Late st Contact Info) Description 02/07/2019 Chart Note [facility] Gastroenterology [facility] [address] [facility] [address] [place] [address] Annette [place] MD [address] [facility] [address] [place] [address] Social History Tobacco Use Types Packs/Day Years [...] Tan - 02/07/2019 8:50 AM CDT Faxed [facility] paperwork 01/29/19 to [phone] documented in this encounter Plan of Treatment Upcoming Encounters Date Type Department Care Team (Late st Contact Info) Description 02/13/2025 10:30 AM CDT Office Visit [facility] IBD and Gastroenterology Center [place] [address] [place] [address] Kitty [place] ANP [address] [place] [address] [place] [address] documented as of this encounter Visit Diagnoses Not on filedocumented in this encounter Care Teams Felt Hat Pouncing Operator Hand Relationship Specialty Start Date End Date Jasiel Freeman MD [address] [place] [phone] PCP - General Family Practice 08/15/17 documented as of this encounter
--- OUTSIDE RECORDS SUMMARY | 2024-10-24 06:39 | XMS_ITS | Encounter Summary ---
Author Organization [facility] Address [address] [place] [address] Care Team Providers Care Fisheries Enforcement Officer Name Role Phone Jasiel Freeman MD Primary Care Provider Encounter Details Date Type Department Care Team (Late st Contact Info) Description 12/27/2018 Abstract [facility] Gastroenterology [place] [address] [place] [address] Lane Ryan MD NO ADDRESS [...] [place] [facility] [place] [address] [place] [address] [place] ANP [address] [place] [address] documented as of this encounter Visit Diagnoses Not on filedocumented in this encounter Care Teams Fisheries Enforcement Officer Relationship Specialty Start Date End Date Jasiel Freeman MD 5 [place] [address] PCP - General Family Practice 08/15/17 documented as of this encounter
--- OUTSIDE RECORDS SUMMARY | 2024-10-24 06:39 | XMS_ITS | Encounter Summary ---
Author Organization [facility] Address [address] [place] [address] Care Team Providers Care Regional Telecommunications Specialist Name Role Phone Jasiel Freeman MD Primary Care Provider Reason for Visit * Reason Onset Date Comments Medication Refill 07/31/2019 Encounter Details Date Type Department Care Team (Late st Contact Info) Description 07/31/2019 Refill [facility] Gastroenterology [facility] [address] [facility] [place] [address] Annette [place] MD [address] [facility] [address] [place] [address] Social History Tobacco Use Types Packs/Day Years [...] [facility] IBD and Gastroenterology Center [place] [address] [place] [address] [place], ANP [address] [place] [address] [place] [address] documented as of this encounter Visit Diagnoses Not on filedocumented in this encounter Care Teams Regional Telecommunications Specialist Relationship Specialty Start Date End Date Jasiel Freeman MD [address] [place] [phone] PCP - General Family Practice 08/15/17 documented as of this encounter
--- OUTSIDE RECORDS SUMMARY | 2024-10-24 06:39 | XMS_ITS | Encounter Summary ---
Author Organization [facility] Address 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 (Primary Dx); Vitamin [...] [facility] IBD and Gastroenterology Center [place] [address] [place] [address] Kitty [place], MIRTA [address] [place] [address] [place] [address] documented as of this encounter Visit Diagnoses Diagnosis 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
--- OUTSIDE RECORDS SUMMARY | 2024-10-24 06:39 | XMS_ITS | Encounter Summary ---
Author Organization [facility] Address [address] [place] [address] Care Team Providers Care Recreational Counselor Name Role Phone Jasiel Freeman MD Primary Care Provider Reason for Visit * Reason Comments Medication Problem Entyvio through [facility] [employer] UPDATE 08/05/19 Encounter Details Date Type Department Care Team (Late st Contact Info) Description 08/05/2019 Chart Note [facility] Gastroenterology [place] [address] [address] [address] Joaquina Prescott, computational theory scientist Problem (Entyvio through [employer] UPDATE 08/05/19) Social History Tobacco Use Types [...] CDT Spoke with Edgardo today. He called [facility] and they told him the Referral orders were not satisfactory for the script. Called in to [facility] Brendarising star at , option 2. Spoke with Nils [...] stating that they can not infuse in [place] if the physician is not licensed in that state. I advised him that this patient had been receiving home infusions from [facility] and Home Infusions at his home for multiple doses. He doesn't know if they will be able to proceed, if Dr. Nair is not licensed in [place]. Is there a physician in the practice who may be licensed in [place] that would be willing to sign off on these orders? I did reiterate that this patient is 1 month past due on his infusion. documented in this encounter Plan of Treatment Upcoming Encounters Date Type Department Care Team (Late st Contact Info) Description 02/13/2025 10:30 AM CDT Office Visit [facility] IBD and Gastroenterology Center [place] [address] [place] [address] Kitty [place] ANP [address] [place] [address] [place] [address] documented as of this encounter Visit Diagnoses Not on filedocumented in this encounter Care Teams Recreational Counselor Relationship Specialty Start Date End Date Jasiel Freeman MD [address] [place] [phone] PCP - General Family Practice 08/15/17 documented as of this encounter
--- OUTSIDE RECORDS SUMMARY | 2024-10-24 06:39 | XMS_ITS | Encounter Summary ---
Author Organization [facility] Address [address] [place] [address] Care Team Providers Care Customer Retention Specialist Name Role Phone Jasiel Freeman MD Primary Care Provider [phone] Encounter Details Date Type Department Care Team (Late st Contact Info) Description 01/29/2019 Orders Only [facility] Admitting [address] [place] [address] Annette [place] MD [address] [facility] [address] [place] [address] Social History Tobacco Use Types Packs/Day Years [...] [facility] IBD and Gastroenterology Center [place] [address] [facility] [facility] [address] [place] [address] Kitty [place], ANP [address] [facility] 100 [place] [address] documented as of this encounter Visit Diagnoses Not on filedocumented in this encounter Care Teams Customer Retention Specialist Relationship Specialty Start Date End Date Jasiel Freeman MD [address] [place] [phone] PCP - General Family Practice 08/15/17 documented as of this encounter
--- OUTSIDE RECORDS SUMMARY | 2024-10-24 06:39 | XMS_ITS | Encounter Summary ---
Author Organization [facility] Address [address] [place] [address] Care Team Providers Care Tobacco Warehouse Manager Name Role Phone Jasiel Freeman MD Primary Care Provider Reason for Visit * Reason Onset Date Comments Infuison problem 07/31/2019 Encounter Details Date Type Department Care Team (Late st Contact Info) Description 07/31/2019 Telephone [facility] Gastroenterology [facility] [address] [facility] [address] [place] [address] Annette [place] MD [address] [facility] [address] [place] [address] Infuison problem Social History Tobacco Use Types [...] Ebony made phone calls to [employer] and [facility] specialty pharm.. After long conversations Sujata (supv) at [facility] [phone] says they are resp for drug and infusion. She faxed forms for Dr Nair to sign (under media) faxed back with today's office notes to [phone]. They are waiting for [facility] to approve an outside company for home infusion nurse since pt doesn't want to have done at [place] in [facility]. they have [employer] working on this and have faxed all info to them for urgent review. documented in this encounter Plan of Treatment Upcoming Encounters Date Type Department Care Team (Late st Contact Info) Description 02/13/2025 10:30 AM CDT Office Visit [facility] IBD and Gastroenterology Center [place] [address] [place] [address] [place], ANP [address] [place] [address] [place] [address] documented as of this encounter Visit Diagnoses Not on filedocumented in this encounter Care Teams Tobacco Warehouse Manager Relationship Specialty Start Date End Date Jasiel Freeman MD [address] [place] [phone] PCP - General Family Practice 08/15/17 documented as of this encounter
--- OUTSIDE RECORDS SUMMARY | 2024-10-24 06:39 | XMS_ITS | Encounter Summary ---
Author Organization [facility] Address [address] [place] [address] Care Team Providers Care Construction Estimator Name Role Phone Jasiel Freeman MD Primary Care Provider [phone] Reason for Visit * Reason Onset Date Comments New Prescription Request 08/28/2018 Encounter Details Date Type Department Care Team (Late st Contact Info) Description 08/28/2018 Telephone [facility] GA[facility]OLOGY [address] [facility] [address] [place] [address] Lane Ryan MD NO ADDRESS [...] with him Please E-scribe to Luis in [facility] CONSULTANT documented in this encounter Plan of Treatment Upcoming Encounters Date Type Department Care Team (Late st Contact Info) Description 02/13/2025 10:30 AM CDT Office Visit [facility]astro[facility]ology [facility] [place] [address] [place] [address] Kitty Dover ANP [address] [place] [phone] documented as of this encounter Visit Diagnoses Not on filedocumented in this encounter Care Teams Construction Estimator Relationship Specialty Start Date End Date Jasiel Freeman MD [address] [place] [phone] PCP - General Family Practice 08/15/17 documented as of this encounter
--- OUTSIDE RECORDS SUMMARY | 2024-10-24 06:39 | XMS_ITS | Encounter Summary ---
Author Organization [facility] Address [address] [place] [address] Care Team Providers Care Nursing Assoc Name Role Phone Jasiel Freeman MD Primary Care Provider Encounter Details Date Type Department Care Team (Late Contact Info) Description 01/29/2019 Abstract [facility] Gastroenterology [facility] [address] [facility] [address] [place] [address] Annette Whitney MD 1 [facility] [place] [phone] Social History Tobacco Use Types Packs/Day Years [...] [facility] IBD and Gastroenterology [place] [id number] [facility] [address] [place] [address] Kitty Dover, ANP [address] [facility] 100 [place] [address] documented as of this encounter Visit Diagnoses Not on filedocumented in this encounter Care Teams Nursing Assoc Relationship Specialty Start Date End Date Jasiel Freeman MD [address] [place] [phone] PCP - General Family Practice 08/15/17 documented as of this encounter
--- OUTSIDE RECORDS SUMMARY | 2024-10-24 06:39 | XMS_ITS | Encounter Summary ---
Author Organization [facility] [place] , [place] Care Team Providers Care Viscosity Inspector Name Role Phone Jasiel Freeman MD Primary Care Provider Encounter Details Date Type Department Care Team (Late st Contact Info) Description 11/29/2018 Home Visit [address], [address] [place] [address] Irina Wyatt RN Social History [...] Comments Blood Pressure 122/86 11/29/2018 12:25 PM FORENSIC CHEMIST Pulse 86 11/29/2018 12:25 PM FORENSIC CHEMIST Temperature 36.6 ??C (97.8 ??F) 11/29/2018 12:[address] Respiratory Rate 16 11/29/2018 12:25 PM FORENSIC CHEMIST Oxygen Saturation 93% 11/29/2018 12:25 PM FORENSIC CHEMIST Inhaled Oxygen Concentration - - Weight - - Height - - Body Mass Index - - documented in this encounter Progress Notes * Irina Wyatt RN - 11/29/2018 11:55 AM CST Images from the original note were not included. [facility] [address] [facility] [address] [place] [address] Home Infusion NURSING follow up Leonidas Edgardo Elkins 1970 [address] [facility] [address] 11/29/2018 Provider - Irina Wyatt RN Driving [...] by intraveous injection see administration instructions Home QUENCHER OPERATOR to administer over 30 minutes every [...] 11/29/18 16 10/04/18 16 08/09/18 16 1. assisted assessment and implementation of [...] knows how to reorder medications. [facility]fusion [facility] [...] in approximately 8 weeks for Entyvio infusion NSIC CHEMIST documented in this encounter Plan of Treatment Upcoming Encounters Date Type Department Care Team (Late st Contact Info) Description 02/13/2025 10:30 AM CDT Office Visit [facility] IBD and Gastroenterology [facility] [place] [address] [place] [address] Kitty Dover ANP [address] [place] [address] documented as of this encounter Visit Diagnoses Not on filedocumented in this encounter Care Teams Viscosity Inspector Relationship Specialty Start Date End Date Jasiel Freeman MD [address] [place] [phone] PCP - General Family Practice 08/15/17 documented as of this encounter
--- OUTSIDE RECORDS SUMMARY | 2024-10-24 06:39 | XMS_ITS | Encounter Summary ---
Author Organization [facility] Address [address] [place] [address] Care Team Providers Care Business Insight And Analytics Manager Name Role Phone Jasiel Freeman MD Primary Care Provider Encounter Details Date Type Department Care Team (Late st Contact Info) Description 08/01/2019 Abstract [facility] Gastroenterology [place] [address] [facility] [address] [place] [address] Joaquina Prescott, RN Social History [...] Visit [facility] IBD and Gastroenterology [facility] [place] [address] [place] [address] Kitty Dover, MIRTA [address] [place] [address] documented as of this encounter Visit Diagnoses Not on filedocumented in this encounter Care Teams Business Insight And Analytics Manager Relationship Specialty Start Date End Date Jasiel Freeman MD 5 [place] [address] PCP - General Family Practice 08/15/17 documented as of this encounter
--- OUTSIDE RECORDS SUMMARY | 2024-10-24 06:39 | XMS_ITS | Encounter Summary ---
Author Organization [facility] Address [address] [place] [address] Care Team Providers Care Internet Webmaster Name Role Phone Jasiel Freeman MD Primary Care Provider Encounter Details Date Type Department Care Team (Latest Contact Info) Description 07/31/2019 11:30 AM CDT - 07/31/2019 11:59 PM CDT Hospital Encounter [facility] Laboratory Services Medical [place] [address] [facility], [place] [address] Annette Whitney MD [address] [facility] [address] [place] [address] Discharge Disposition: Home or Self Care Social [...] by intraveous injection see administration instructions. Home WEB OPERATIONS LEAD to administer over 30 minutes every [...] [facility] IBD and Gastroenterology [facility] [place] [address] [place] [address] Kitty Dover ANP [address] [place] [address] documented as of this encounter [...] 222(L) 232-1,245 pg/mL 07/31/2019 1:28 PM CDT [facility] Comment:It has been reported that between 5 to 10% of patients with values between 200 and 400 pg/mL may experience neuropsychiatric and hematologic abnormalities due to occult B12 deficiency. Less than 1% of patients with values above 400 pg/mL will have symptoms. Blood Venipuncture / Unknown 07/31/2019 11:33 AM CDT 07/31/2019 11:50 AM CDT Annette Whitney MD CHEMISTRY SHELBY PRITCHETT [facility]# [id number] 5 [facility] [place] [facility] [place] [address] * (ABNORMAL) VITAMIN D 25 HYDROXY (07/31/2019 11:33 AM CDT) Pathologist [facility] VITAMIN D TOTAL (25OH) 23(L) 30 - 100 ng/mL 07/31/2019 1:28 PM CDT [facility] Blood Venipuncture / Unknown 07/31/2019 11:33 AM CDT 07/31/2019 11:50 AM CDT Narrative [facility] [employer] [facility] - 07/31/2019 1:28 PM CDT Interpretive Data Chart: Deficient: ? 0 - 20 ng/mL Insufficient: ?21 - 29 ng/mL Sufficient: ?30 - 100 ng/mL Increased Risk of Hypercalciuria: ??>100 ng/ml Toxic: ? >150 ng/ml Annette Whitney MD CHEMISTRY SHELBY PRITCHETT [employer] [facility] CLIA# [id number] [address] [facility] [place] [address] * (ABNORMAL) COMPREHENSIVE METABOLIC PANEL (07/31/2019 11:33 AM CDT) SODIUM 140 136 - 145 mmol/L 07/31/2019 12:59 PM CDT [employer] [facility] POTASSIUM 4.2 3.5 - 5.0 mmol/L 07/31/2019 12:59 PM CDT [employer] [facility] CHLORIDE 103 98 - 107 mmol/L 07/31/2019 12:59 PM CDT [employer] [facility] CO2 26 22 - 29 mmol/L 07/31/2019 12:59 PM CDT [employer] [facility] CALCIUM 9.1 8.6 - 10.2 mg/dL 07/31/2019 12:59 PM CDT [employer] [facility] BUN 12 6 - 20 mg/dL 07/31/2019 12:59 PM CDT [employer] [facility] CREATININE 1.26(H) 0.67 - 1.17 mg/dL 07/31/2019 12:59 PM CDT [employer] [facility] GLUCOSE 78 74 - 99 mg/dL 07/31/2019 12:59 PM CDT [employer] [facility] TOTAL PROTEIN 7.4 6.7 - 8.6 g/dL 07/31/2019 12:59 PM CDT [employer] [facility] ALBUMIN 3.9 3.5 - 5.2 g/dL 07/31/2019 12:59 PM CDT [facility] LABORATORY SERVICES - [facility] BILIRUBIN TOTAL 0.3 0.3 - 1.2 mg/dL 07/31/2019 12:59 PM T [facility] LABORATORY [facility] ALKALINE PHOSPHATASE 78 40 - 129 U/L 07/31/2019 12:59 PM T [facility] LABORATORY SERVICES - [facility] AST 21 <41 U/L 07/31/2019 12:59 PM [facility] LABORATORY SERVICES - [facility] ALT 25 <42 U/L 07/31/2019 12:59 PM [facility] GFR >60 >=60 mL/min/1.7 3 sq meter 07/31/2019 12:59 PM T [facility]ORY [facility] Comment: eGFR has not been [...] 3 sq meter 07/31/2019 12:59 PM T [facility] LABORATORY [facility] ANION GAP 11 8 - 16 mmol/L 07/31/2019 12:59 PM [facility] Blood Venipuncture / Unknown 07/31/2019 11:33 AM CDT 07/31/2019 11:50 AM CDT Narrative [facility] LABORATORY SERVICES [facility] - 07/31/2019 12:59 PM CDT Samples containing indocyanine green cause interferences on Total and/or Direct Bilirubin and must not be measured. Annette Whitney MD CHEMISTRY SHELBY PRITCHETT [facility] CLIA# [id number] 5 [facility] [place] [address] * (ABNORMAL) C-REACTIVE PROTEIN (07/31/2019 11:33 AM CDT) CRP 8.3(H) <5.0 mg/L 07/31/2019 12:59 PM CDT [employer] [facility] - [facility] Blood Venipuncture / Unknown 07/31/2019 11:33 AM CDT 07/31/2019 11:50 AM CDT Annette Whitney MD CHEMISTRY SHELBY PRITCHETT [employer] SERVICES [facility] CLIA# [id number] [address] [facility] [address] * (ABNORMAL) CBC WITH DIFFERENTIAL (07/31/2019 11:33 AM CDT) Pathologist [facility] WBC 5.5 4.0 - 9.8 K/uL 07/31/2019 12:04 PM CDT [employer] [facility] - [facility] RBC 6.03(H) 4.50 - 5.40 M/uL 07/31/2019 12:04 PM CDT [employer] [facility] - [facility] HEMOGLOBIN 17.2(H) 13.6 - 16.5 g/dL 07/31/2019 12:04 PM CDT [employer] [facility] - [facility] HEMATOCRIT 52.3(H) 40.0 - 48.0 % 07/31/2019 12:04 PM CDT [employer] [facility] MCV 86.7 82.0 - 99.0 fL 07/31/2019 12:04 PM CDT [employer] [facility] MCH 28.5 27.2 - 32.6 pg 07/31/2019 12:04 PM CDT [employer] [facility] MCHC 32.9 31.5 - 35.5 g/dL 07/31/2019 12:04 PM CDT [employer] [facility] RDW 12.7 11.5 - 14.5 % 07/31/2019 12:04 PM CDT [employer] [facility] RDW-STDEV 39.8 37.1 - 48.7 fL 07/31/2019 12:04 PM CDT [employer] [facility] PLATELETS 325 140 - 350 K/uL 07/31/2019 12:04 PM CDT [employer] [facility] MPV 9.7 9.3 - 12.4 fL 07/31/2019 12:04 PM CDT [employer] [facility] NEUTROPHILS 59 % 07/31/2019 12:04 PM CDT [employer] [facility] LYMPHOCYTES 22 % 07/31/2019 12:04 PM CDT [employer] [facility] MONOCYTES 13 % 07/31/2019 12:04 PM CDT [employer] [facility] EOSINOPHILS 5 % 07/31/2019 12:04 PM CDT [employer] [facility] BASOPHILS 1 % 07/31/2019 12:04 PM CDT [employer] [facility] IMMATURE GRANULOCYTES 0 % 07/31/2019 12:04 PM CDT [employer] [facility] NEUTROPHIL ABSOLUTE 3.21 1.90 - 7.00 K/uL 07/31/2019 12:04 PM CDT [employer] [facility] LYMPHOCYTE ABSOLUTE 1.21 0.70 - 4.50 K/uL 07/31/2019 12:04 PM CDT [employer] [facility] MONOCYTE ABSOLUTE 0.70 0.10 - 1.30 K/uL 07/31/2019 12:04 PM CDT [employer] [facility] EOSINOPHIL ABSOLUTE 0.29 0.00 - 0.70 K/uL 07/31/2019 12:04 PM CDT [employer] [facility] BASOPHILS ABSOLUTE 0.04 0.00 - 0.20 K/uL 07/31/2019 12:04 PM CDT [employer] [facility] IMMATURE GRANULOCYTES ABSOLUTE 0.02 0.00 - 0.03 K/uL 07/31/2019 12:04 PM CDT [employer] [facility] Blood Venipuncture / Unknown 07/31/2019 11:33 AM CDT 07/31/2019 11:50 AM CDT Annette Whitney MD HEMATOLOGY ORD ERABLES [employer] LAB[facility]ATORY SERVICES - [facility] CLIA# [id number] [address] [place] [address] documented in this encounter Visit Diagnoses Diagnosis Ulcerative pancolitis with complication Pouchitis documented in this encounter Care Teams Internet Webmaster Relationship Specialty Start Date End Date Jasiel Freeman MD [address] [place] [phone] PCP - General Family Practice 08/15/17 documented as of this encounter
--- OUTSIDE RECORDS SUMMARY | 2024-10-24 06:40 | XMS_ITS | Encounter Summary ---
Author Organization [facility] Address [address] [place] [address] Care Team Providers Care Pourer Off Name Role Phone Jasiel Freeman MD Primary Care Provider Reason for Visit * Reason Onset Date Comments Stelara Order 10/11/2017 Encounter Details Date Type Department Care Team (Late st Contact Info) Description 10/11/2017 Telephone [facility] GASTROENTEROLOGY [address] [facility] [address] [place] [address] Lane Ryan MD NO ADDRESS ON FILE [facility] Social History Tobacco Use Types Packs/Day Years [...] calls, he should call the infusion lab [phone] to schedule infusion. GER PRIVATE documented in this encounter Plan of Treatment Upcoming Encounters Date Type Department Care Team (Late st Contact Info) Description 02/13/2025 10:30 AM CDT Office Visit [facility] IBD and Gastroenterology Center [place] [address] [place] [address] Kitty Dover ANP [address] [place] [address] documented as of this encounter Visit Diagnoses Not on filedocumented in this encounter Care Teams Pourer Off Relationship Specialty Start Date End Date Jasiel Freeman MD [address] [place] [phone] PCP - General Family Practice 08/15/17 documented as of this encounter
--- OUTSIDE RECORDS SUMMARY | 2024-10-24 06:40 | XMS_ITS | Encounter Summary ---
Author Organization [facility] Address [address] [place] [address] Care Team Providers Care Wool Supplier Name Role Phone Jasiel Freeman MD Primary Care Provider Encounter Details Date Type Department Care Team (Late st Contact Info) Description 10/11/2017 Abstract [facility] GASTROENTEROLOGY [address] [place] [address] Lane Ryan MD NO ADDRESS [...] [facility] IBD and Gastroenterology Center [place] [address] [place] [address] Kitty Dover, MIRTA [address] [place] [address] documented as of this encounter Visit Diagnoses Not on filedocumented in this encounter Care Teams Wool Supplier Relationship Specialty Start Date End Date Jasiel Freeman MD [address] [place] [address] PCP - General Family Practice 08/15/17 documented as of this encounter
--- OUTSIDE RECORDS SUMMARY | 2024-10-24 06:40 | XMS_ITS | Encounter Summary ---
Author Organization [facility] Address [address] [place] [address] Care Team Providers Care Hydraulic Lift Driver Name Role Phone Martin Kelley MD Primary Care Provider [phone] Reason for Visit * Reason Onset Date Comments New Prescription Request 08/02/2016 Encounter Details Date Type Department Care Team (Late st Contact Info) Description 08/02/2016 Telephone [facility] GASTROENTEROLOGY [address] [facility] [address] [place] [address] Lane Ryan MD NO ADDRESS [...] [facility] IBD and Gastroenterology Center [place] [address] [place] [address] Kitty Dover, [facility] [address] [place] [address] [place] [address] documented as of this encounter Visit Diagnoses Not on filedocumented in this encounter Care Teams Hydraulic Lift Driver Relationship Specialty Start Date End Date Martin Kelley MD PCP - General Internal Medicine 02/16/12 08/14/17 documented as of this encounter
--- OUTSIDE RECORDS SUMMARY | 2024-10-24 06:40 | XMS_ITS | Encounter Summary ---
Author Organization [email or web address] Address [address] [place] [address] Care Team Providers Care Drying Can Worker Name Role Phone Jasiel Freeman MD Primary Care Provider [phone] Reason for Visit * Tx/Med Therapy Plan Auth (Routine) - Closed Specialty Diagnoses / Procedures Referred By Contac t Referred To Contact Oncology Diagnoses Ulcerative colitis, unspecified Procedures INFUSION THERAPY TX INJECTION, VEDOLIZUMAB CROHN'S / COLITIS - Lane Conklin MD NO ADDRESS ON FILE [facility] Infusion [place] 2nd Floor [place] [address] [place] [address] Referral ID Status Reason Start Date Expiration Date Visits Re quested Visits Authorized [id number] Closed 11/15/2017 05/15/2018 99 99 Encounter Details Date Type Department Care Team (Latest Contact Info) Description 11/15/2017 11:00 AM BUSINESS SUPPORT MANAGER - 11/15/2017 11:59 PM BUSINESS SUPPORT MANAGER Hospital Encounter [facility] Infusion Center 2nd Fl [address] [place] [address] Discharge Disposition: Home or Self [...] Comments Blood Pressure 125/88 11/15/2017 11:10 AM BUSINESS SUPPORT MANAGER Pulse 90 11/15/2017 11:10 AM BUSINESS SUPPORT MANAGER Temperature 36.8 ??C (98.2 ??F) 11/15/2017 11:[address] Respiratory Rate 16 11/15/2017 11:10 AM BUSINESS SUPPORT MANAGER Oxygen Saturation - - Inhaled Oxygen Concentration [...] manageable. Outcome: Progressing Pt admitted to [facility] for infusion. Denies questions about medication/side effects as well as active infection. Entyvio given without difficulty. Pt instructed to notify physician or go to ED if there are any changes in their condition. Verbalized understanding. Pt discharged ambulatory. NESS SUPPORT MANAGER documented in this encounter Plan of Treatment Upcoming Encounters Date Type Department Care Team (Late st Contact Info) Description 02/13/2025 10:30 AM CDT Office Visit [facility] IBD and Gastroenterology Center [place] [address] [place] [address] Kitty Dover, ANP [address] [place] [address] [place] [address] documented as of this encounter [...] 1200, Routine New Bag 11/15/2017 12:33 PM BUSINESS SUPPORT MANAGER 300 mg 510 mL/hr documented in this encounter Care Teams Drying Can Worker Relationship Specialty Start Date End Date Jasiel Freeman MD [address] [place] [address] PCP - General Family Practice 08/15/17 documented as of this encounter
--- OUTSIDE RECORDS SUMMARY | 2024-10-24 06:40 | XMS_ITS | Encounter Summary ---
Author Organization [facility] Address [address] [place] [address] Care Team Providers Care Cook Helper Vegetable Name Role Phone Jasiel Freeman MD Primary Care Provider Reason for Visit * Reason Onset Date Comments Results 08/30/2017 Encounter Details Date Type Department Care Team (Late Contact Info) Description 08/30/2017 Telephone [facility] GASTR[facility]OLOGY [address] [facility] [address] [place] [address] Lane Ryan MD NO ADDRESS [...] [facility] IBD and Gastroenterology Center [place] [address] [place] [address] Kitty Dover, ANP [address] [facility] [address] [place] [address] documented as of this encounter Visit Diagnoses Not on filedocumented in this encounter Care Teams Cook Helper Vegetable Relationship Specialty Start Date End Date Jasiel Freeman MD [address] [place] [phone] PCP - General Family Practice 08/15/17 documented as of this encounter
--- OUTSIDE RECORDS SUMMARY | 2024-10-24 06:40 | XMS_ITS | Encounter Summary ---
Author Organization [facility] Address [address] [place] [address] Care Team Providers Care Explosive Ordnance Handler Name Role Phone Jasiel Freeman MD Primary Care Provider Encounter Details Date Type Department Care Team (Late st Contact Info) Description 11/06/2017 Abstract [facility] GASTROENTEROLOGY [address] [place] [address] Lane Ryan MD NO ADDRESS [...] [facility] IBD and Gastroenterology Center [place] [address] [place] [address] Kitty Dover, MIRTA [address] [place] [address] documented as of this encounter Visit Diagnoses Not on filedocumented in this encounter Care Teams Explosive Ordnance Handler Relationship Specialty Start Date End Date Jasiel Freeman MD 5 [place] [address] PCP - General Family Practice 08/15/17 documented as of this encounter
--- OUTSIDE RECORDS SUMMARY | 2024-10-24 06:40 | XMS_ITS | Encounter Summary ---
Author Organization [facility] Address [address] [place] [address] Care Team Providers Care Well Tender Name Role Phone Jasiel Freeman MD Primary Care Provider [phone] Reason for Visit * Reason Onset Date Comments Results 09/12/2017 Encounter Details Date Type Department Care Team (Late st Contact Info) Description 09/12/2017 Telephone [facility] GASTROENTEROLOGY [address] [facility] [address] [place] [address] Lane Ryan MD NO ADDRESS [...] 09/12/2017 10:28 AM CST Looking for results [phone] ONING MIXER documented in this encounter Plan of Treatment Upcoming Encounters Date Type Department Care Team (Late st Contact Info) Description 02/13/2025 10:30 AM CDT Office Visit [facility] IBD and Gastroenterology Center [place] [address] [place] [address] Kitty Dover ANP [address] [place] [address] documented as of this encounter Visit Diagnoses Not on filedocumented in this encounter Care Teams Well Tender Relationship Specialty Start Date End Date Jasiel Freeman MD [address] [place] [phone] PCP - General Family Practice 08/15/17 documented as of this encounter
--- OUTSIDE RECORDS SUMMARY | 2024-10-24 06:40 | XMS_ITS | Encounter Summary ---
Author Organization [facility] Address [address] [place] [address] Care Team Providers Care Pharm Tech Name Role Phone Jasiel Freeman MD Primary Care Provider [phone] Encounter Details Date Type Department Care Team (Late st Contact Info) Description 05/23/2018 Abstract [facility] GASTROENTEROLOGY [address] [place] [address] Lane Ryan MD NO ADDRESS [...] AM CDT Office Visit [facility] IBD and Gastroenterology Center [place] [address] [place] [address] Kitty Dover, MIRTA [address] [place] [address] documented as of this encounter Visit Diagnoses Not on filedocumented in this encounter Care Teams Pharm Tech Relationship Specialty Start Date End Date Jasiel Freeman MD [address] [place] [address] PCP - General Family Practice 08/15/17 documented as of this encounter
--- OUTSIDE RECORDS SUMMARY | 2024-10-24 06:40 | XMS_ITS | Encounter Summary ---
Author Organization [facility] Address [address] [place] [address] Care Team Providers Care City Routeman Name Role Phone Jasiel Freeman MD Primary Care Provider Encounter Details Date Type Department Care Team (Late st Contact Info) Description 09/19/2017 Orders Only [facility] GASTROENTEROLOGY [address] [place] [address] Lane Ryan MD NO ADDRESS [...] Ryan MD - 09/19/2017 4:32 PM CST HARGE SPECIALIST documented in this encounter Plan of Treatment Upcoming Encounters Date Type Department Care Team (Late st Contact Info) Description 02/13/2025 10:30 AM CDT Office Visit [facility] IBD and Gastroenterology Center [place] [address] [place] [address] Kitty Dover ANP [address] [facility] [address] [place] [address] documented as of this encounter Visit Diagnoses Not on filedocumented in this encounter Care Teams City Routeman Relationship Specialty Start Date End Date Jasiel Freeman MD [address] [place] [phone] PCP - General Family Practice 08/15/17 documented as of this encounter
--- OUTSIDE RECORDS SUMMARY | 2024-10-24 06:40 | XMS_ITS | Encounter Summary ---
Author Organization [facility] Address [address] [place] [address] Care Team Providers Care Radio Disc Jockey Name Role Phone Jasiel Freeman MD Primary Care Provider Encounter Details Date Type Department Care Team (Late st Contact Info) Description 12/07/2017 Abstract [facility] GASTROENTEROLOGY [address] [place] [address] Lane Ryan MD NO ADDRESS [...] Office Visit [facility] IBD and Gastroenterology Center [place] [address] [place] [address] Kitty Dover, MIRTA [address] [place] [address] documented as of this encounter Visit Diagnoses Not on filedocumented in this encounter Care Teams Radio Disc Jockey Relationship Specialty Start Date End Date Jasiel Freeman MD [address] [place] [address] PCP - General Family Practice 08/15/17 documented as of this encounter
--- OUTSIDE RECORDS SUMMARY | 2024-10-24 06:40 | XMS_ITS | Encounter Summary ---
Author Organization [facility] Address [address] [place] [address] Care Team Providers Care Ophthalmologist Name Role Phone Jasiel Freeman MD Primary Care Provider Reason for Visit * Reason Onset Date Comments SHAGGY Peguero 11/06/2017 Encounter Details Date Type Department Care Team (Late st Contact Info) Description 11/06/2017 Telephone [facility] GASTROENTEROLOGY [address] [facility] [address] [place] [address] Lane Ryan MD NO ADDRESS [...] script but new script is not needed. TABLE LOADER MACHINE OPERATOR documented in this encounter Plan of Treatment Upcoming Encounters Date Type Department Care Team (Late st Contact Info) Description 02/13/2025 10:30 AM CDT Office Visit [facility] IBD and Gastroenterology Center [place] [address] [place] [address] Kitty Dover, MIRTA [address] [place] [address] [place] [address] documented as of this encounter Visit Diagnoses Not on filedocumented in this encounter Care Teams Ophthalmologist Relationship Specialty Start Date End Date Jasiel Freeman MD [address] [place] [phone] PCP - General Family Practice 08/15/17 documented as of this encounter
--- OUTSIDE RECORDS SUMMARY | 2024-10-24 06:40 | XMS_ITS | Encounter Summary ---
Author Organization [facility] Address [address] [place] [address] Care Team Providers Care Pin Game Machine Inspector Name Role Phone Jasiel Freeman MD Primary Care Provider Encounter Details Date Type Department Care Team (Late st Contact Info) Description 11/20/2017 Abstract [facility] GASTROENTEROLOGY [address] [place] [address] Lane Ryan MD NO ADDRESS [...] [facility] IBD and Gastroenterology Center [place] [address] [place] [address] Kitty Dover, MIRTA [address] [place] [address] documented as of this encounter Visit Diagnoses Not on filedocumented in this encounter Care Teams Pin Game Machine Inspector Relationship Specialty Start Date End Date Jasiel Freeman MD [address] [place] [address] PCP - General Family Practice 08/15/17 documented as of this encounter
--- OUTSIDE RECORDS SUMMARY | 2024-10-24 06:40 | XMS_ITS | Encounter Summary ---
Author Organization [facility] [employer] [facility] Address [address] [place] [address] Care Team Providers Care Weight Engineer Name Role Phone Jasiel Freeman MD Primary Care Provider Reason for Visit * Auth/Cert Specialty Diagnoses / Procedures Referred By Lambert pizarro Referred To Contact Gastroenterology Diagnoses UC (ulcerative colitis) UC (ulcerative colitis) [K51.90] Procedures COLONOSCOPY [facility] [address] [place] [address] Referral ID Status Reason Start Date Expiration Date Visits Re quested Visits Authorized [id number] 1 1 Encounter Details Date Type Department Care Team (Late st Contact Info) Description 08/24/2017 12:45 PM CDT - 08/24/2017 1:15 PM CDT Surgery [facility] S [employer] [address] [facility] [place] [address] Lane Ryan MD NO ADDRESS [...] Laterality Date ??? HX COLECTOMY 2001 ??? ID COLONOSCOPY FLX DX W/COLLJ SPEC WHEN PFRMD 12/08/2009 COLONOSCOPY performed by LOUISE RIZO at [facility] GI LAB ??? ID COLONOSCOPY FLX DX W/COLLJ SPEC WHEN PFRMD 06/09/[address] Ryan MD at [facility] GI LAB ??? ID DILATION RECTAL STRICTURE W ANEST 06/12/2012 RECTAL STRICTURE DILATATION performed by Lane Ryan MD at [facility] GI [facility] ??? ID ENDOSCOPY UPPER SMALL INTESTINE 06/12/2012 SMALL BOWEL ENTEROSCOPY performed by Lane Ryan MD at [facility] ??? ID ENDOSCOPY UPPER SMALL INTESTINE W/BIOPSY 02/28/2012 BOWEL SMALL BIOPSY ENDOSCOPIC performed by Lane Ryan MD at [facility] ??? ID ESOPHAGOGASTRODUODENOSCOPY TRANSORAL DIAGNOSTIC 02/28/2012 [address] performed by Lane Ryan MD at [facility] ??? ID NDSC EVAL INTSTINAL POUCH DX W/COLLJ SPEC SPX 02/16/2012 POUCHOSCOPY performed by Louise Rizo MD at [facility] GI LAB ??? ID SIGMOIDOSCOPY FLX DX W/COLLJ SPEC BR/WA IF PFRMD 02/16/2012 SIGMOIDOSCOPY FLEXIBLE performed by Louise Rizo MD at [facility] GI LAB No prescriptions prior to [...] 08/24/2017 9:05 PM CDTAssociated Order(s): GI REPORT [place], [place] [address] Gastroenterology CSN: [id number] DATE OF SERVICE: ENDOSCOPY REPORT DATE OF [...] Humira antibodies for further evaluation. JSF:MEDQ DID: [id number] Dictated by: Lane Ryan MD * Lane Ryan MD - 08/24/2017 1:20 PM CDTAssociated Order(s): GI REPORT [facility] Endoscopy Patient Name: Edgardo Elkins Procedure Date: 08/24/2017 Date of : 1970 Admit Type: Outpatient Attending MD: Lane Ryan MD Procedure: Images Only-Procedure Report in [facility] Providers: Lane Ryan MD Referring MD: Jasiel Freeman MD Submitted Lane Ryan MD Number of Addenda: [address]; [place] [address] documented in this encounter Plan of Treatment Upcoming Encounters Date Type Department Care Team (Late st Contact Info) Description 02/13/2025 10:30 AM CDT Office Visit [facility] IBD and Gastroenterology Center [place] [address] [place] [address] Kitty Dover, MIRTA [address] [place] [address] documented as of this encounter [...] Ryan MD - 08/24/2017 9:05 PM CDT [place], [place] [address] Gastroenterology CSN: [id number] DATE OF SERVICE: ENDOSCOPY REPORT DATE OF [...] get Humira antibodies for further evaluation. JSF:MEDQ DID:[id number] Dictated by: Lane Ryan MD Transcriptions Lane Ryan MD - 08/24/2017 1:20 PM CDT [facility]oscopy Patient Name: Edgardo Elkins Procedure Date: 08/24/2017 Date of : 1970 Admit Type: Outpatient Attending MD: Lane Ryan MD Procedure: Images Only-Procedure Report in [facility] Providers: Lane Ryan MD Referring MD: Jasiel Freeman MD Submitted Lane Ryan MD Number of Addenda: 0 [address] [facility]; [place] [address] Lane Ryan MD GI PROCEDURE ORDERAB LES Performing Organization Address City/[facility]/ZIP Co de Phone Number [facility] * ADALIMUMAB CONCENTRATION AND AB (08/24/2017 2:00 PM CDT) ADALIMUMAB LEVEL AND AB See Scanned Report 08/29/2017 10:29 AM [facility] Blood Venipuncture / Unknown 08/24/2017 2:00 PM CDT 08/24/2017 2:[address] Ryan MD CHEMISTRY ORDERABLES Performing Organization Address City/[facility] Co de Phone Number [facility] [address] [place] [address] * PATHOLOGY (08/24/2017 1:05 PM CDT) CASE REPORT Surgical Pathology Report ? Case: [id number] ? Authorizing Provider: ??Lane Ryan MD ?Collected: ? 08/24/2017 01:05 PM ? Ordering Location: ? [facility] [place] ??Received: ?08/24/2017 02:43 PM ? Pathologist: ? Usha He MD ? Specimens: ?? A) - Small Intestine, small intestine bx ? B) - Small Intestine, anastimosis bx ? C) - Small Intestine, perianal pouch ? 08/25/2017 3:36 PM CDT [employer] [facility] FINAL DIAGNOSIS Small intestine, not further specified, biopsy: - Active enteritis with ulceration. - No granulomas or dysplasia. Small intestine, anastomosis, biopsy: - Active enteritis. - Fragments of ulcer. - No granulomas or dysplasia. Small intestine, perianal pouch, biopsy: - Active enteritis with focal ulceration. - No granulomas or dysplasia. 08/25/2017 3:36 PM [facility] IMEN DESCRIPTION (A) Small intestine small bowel IBD; (B) small intestine anastomosis IBD; (C) small bowel perianal patch IBD. 08/25/2017 3:36 PM [facility] OPERATIVE PROCEDURE Small bowel enteroscopy. 08/25/2017 3:36 PM [facility] CLINICAL DIAGNOSIS Ulcerative colitis. ICD Code K51.9. 08/25/2017 3:36 PM [facility] GROSS DESCRIPTION Received are three containers labeled [...] [facility]IC [facility] The slides labeled [id number] and Edgardo Elkins. The first small intestinal [...] developed and its performance characteristic determined by [facility], Department of Laboratory Medicine. It has [...] WF, WB and WH are performed by [address], [address]. All other case types are performed by [place] [address] [facility], [address]. 08/25/2017 3:36 PM CDT [facility] Tissue (Small Intestine) 08/24/2017 1:05 PM CDT 08/24/2017 2:43 PM CDT Comment:IBD Tissue specimen (specimen) (Small Intestine) 08/24/2017 1:05 PM CDT 08/24/2017 2:43 PM CDT Comment:IBD Tissue specimen (specimen) (Small Intestine) 08/24/2017 1:05 PM CDT 08/24/2017 2:43 PM CDT Comment:IBD Lane Ryan MD PATHOLOGY/CYTOLOGY O RDERABLES [facility] CLIA# [id number] [address] [place] [address] [place] [address] * CLOSTRIDIUM DIFFICILE DETECTION (08/24/2017 1:04 PM [...] of cure. Lane Ryan MD MICROBIOLOGY - [facility] AL ORDERABLES [facility]# [id number] [address] [place] [address] documented in this encounter Visit Diagnoses Diagnosis [...] CRNA) documented in this encounter Care Teams Weight Engineer Relationship Specialty Start Date End Date Jasiel Freeman MD [address] [place] [address] PCP - General Family Practice 08/15/17 documented as of this encounter
--- OUTSIDE RECORDS SUMMARY | 2024-10-24 06:40 | XMS_ITS | Encounter Summary ---
Author Organization [facility] Address , [place] Care Team Providers Care Shuttle Inspector Name Role Phone Jasiel Freeman MD Primary Care Provider Encounter Details Date Type Department Care Team (Late st Contact Info) Description 12/27/2017 Orders Only [address], [address] [place] [address] John Avina PHARMACIST Ulcerative proctitis [...] Avina PHARMACIST - 12/27/2017 4:13 PM CST [facility] Pharmaceutical Care Plan Demographics Edgardo Elkins 47 y.o. / male Patient's address on file: [address] [place] [address] Patient's current location: Same as above Patient Contact Information: Home Phone Work Phone Insurance Information: [employer] Choice POS II Home Infusion Care Team IV Pharmacy: [facility] / [phone] Nursing: [facility] Physician(s): Dr. Lane Ryan IV access [...] by intraveous injection see administration instructions Home HEMMING AND TACKING MACHINE OPERATOR to administer over 30 minutes [...] of education: N/A Occupational History ??? [employer] ??? [address] Social History Main [...] care updated and reviewed by FADI Ulloa [facility] Specialty & Home Infusion [facility] [address], [address] [place] [address] LE SOLUTIONS ARCHITECT documented in this encounter Plan of Treatment Upcoming Encounters Date Type Department Care Team (Late st Contact Info) Description 02/13/2025 10:30 AM CDT Office Visit [facility] IBD and Gastroenterology Center [place] [address] [facility] [address] [place] [address] Kitty Dover, ANP [address] [facility] [address] [place] [address] documented as of this encounter Visit Diagnoses Diagnosis 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
--- OUTSIDE RECORDS SUMMARY | 2024-10-24 06:40 | XMS_ITS | Encounter Summary ---
Author Organization [facility] Address [address] [place] [address] Care Team Providers Care Bobbin Cleaner Name Role Phone Jasiel Freeman MD Primary Care Provider [phone] Reason for Visit * Reason Onset Date Comments Surgery 10/03/2017 Problem Encounter Details Date Type Department Care Team (Late st Contact Info) Description 10/03/2017 Telephone [facility] GASTROENTEROLOGY [address] [facility] [address] [place] [address] Lane Ryan MD NO ADDRESS [...] meal. Okay for aspirin, Coumadin. Lane Ryan PREVENTION OFFICER * Telephone Encounter - Kadie Nye - 10/03/2017 2:59 PM CST Prema from Dr. Gold's office regarding the above. They gave patient Cefazolan 2 mg IV prior to surgery. Patient had taken Celebrex the day before. Would you advise bowel prep prior? Also post surgery, they prescribe aspirin BID for 6 days or Coumadin for blood clot prevention. Please advise. [phone]. They can reschedule him for next week. PREVENTION OFFICER * Telephone Encounter - Ada Tan - 10/03/2017 2:11 PM CST Pt was in surg today and they had to stop because he had uncontrollable stool. They are trying to have this done again next Monday but they need to know what they can do to prevent this from happening again please call Inés @ [phone] PREVENTION OFFICER documented in this encounter Plan of Treatment Upcoming Encounters Date Type Department Care Team (Late st Contact Info) Description 02/13/2025 10:30 AM CDT Office Visit [facility] IBD and Gastroenterology Center [place] [address] [place] [address] Kitty Dover ANP [address] [place] [address] [place] [address] documented as of this encounter Visit Diagnoses Not on filedocumented in this encounter Care Teams Bobbin Cleaner Relationship Specialty Start Date End Date Jasiel Freeman MD [address] [place] [phone] PCP - General Family Practice 08/15/17 documented as of this encounter
--- OUTSIDE RECORDS SUMMARY | 2024-10-24 06:40 | XMS_ITS | Encounter Summary ---
Author Organization [facility] Address [address] [place] [address] Care Team Providers Care Skid Worker Name Role Phone Jasiel Freeman MD Primary Care Provider Encounter Details Date Type Department Care Team (Latest Contact Info) Description 10/24/2017 Orders Only [facility] [address] [place] [address] Lane Ryan MD NO ADDRESS [...] [place] [address] [place] [address] Kitty Dover, ANP [address] [place] [address] documented as of this encounter Visit Diagnoses Diagnosis Inflammatory bowel disease- Primary Other and unspecified noninfectious gastroenteritis and colitis documented in this encounter Care Teams Skid Worker Relationship Specialty Start Date End Date Jasiel Freeman MD [address] [place] [phone] PCP - General Family Practice 08/15/17 documented as of this encounter
--- OUTSIDE RECORDS SUMMARY | 2024-10-24 06:40 | XMS_ITS | Encounter Summary ---
Author Organization [facility] Address , [place] Care Team Providers Care Trimming Cutter Machine Name Role Phone Jasiel Freeman MD Primary Care Provider Encounter Details Date Type Department Care Team (Late st Contact Info) Description 06/14/2018 Home Visit [address], [address] [place] [address] Ebony Cruz, JIE Social History [...] from the original note were not included. [facility]fusion Pharm[facility] [address] [place] [address] Home Infusion NURSING follow up Tamekayvio Edgardo Elkins 1970 [address] [facility] [address] 06/14/2018 Provider - Ebony Cruz RN Driving [...] by intraveous injection see administration instructions Home FINISH PAINTER to administer over 30 minutes every 8 weeks.. 300 mg 6 ??? metroNIDAZOLE (FLAGYL) 250 mg tablet Take 1 Tablet (250 mg) by mouth 3 times daily. 90 Tablet 0 ??? TESTOSTERONE, BULK, MISC 1 mL by Misc.(Non-Drug; Combo Route) route. No current facility-administered medications on file prior to visit. No problem observed with learning needs - No cultural, anglican, or language barriers to learning Patient and [...] 06/14/18 16 04/19/18 16 02/22/18 16 1. jail assessment and implementation of infusion therapy. Teaching [...] reactions. Patient knows how to reorder medications. [facility] will [...] 02/13/2025 10:30 AM CDT Office Visit [facility] IBD and Gastroenterology Center [place] [address] [place] [address] Kitty Dover ANP [address] [place] [address] documented as of this encounter Visit Diagnoses Not on filedocumented in this encounter Care Teams Trimming Cutter Machine Relationship Specialty Start Date End Date Jasiel Freeman MD [address] [place] [address] PCP - General Family Practice 08/15/17 documented as of this encounter
--- OUTSIDE RECORDS SUMMARY | 2024-10-24 06:40 | XMS_ITS | Encounter Summary ---
Author Organization [facility] Address , [place] Care Team Providers Care Jackerman Name Role Phone Jasiel Freeman MD Primary Care Provider Encounter Details Date Type Department Care Team (Late st Contact Info) Description 04/19/2018 Home Visit [address], [address] [place] [address] Ebony Cruz, JIE Social History [...] from the original note were not included. [facility]fusion Pharm[facility] [address] [place] [address] Home Infusion NURSING follow up Haylieraad Elkins 1970 [address] [facility] [address] 04/19/2018 Provider - Ebony Cruz RN Driving [...] by intraveous injection see administration instructions Home PALLIATIVE MEDICINE PHYSICIAN to administer over 30 minutes every 8 [...] 04/19/18 16 02/22/18 16 11/29/17 16 1. care home assessment and implementation [...] reactions. Patient knows how to reorder medications. [facility] Pharm[facility] [...] Description 02/13/2025 10:30 AM CDT Office Visit [facility] IBD and Gastroenterology Center [place] [address] [place] [address] Kitty Dover ANP [address] [place] [address] documented as of this encounter Visit Diagnoses Not on filedocumented in this encounter Care Teams Jackerman Relationship Specialty Start Date End Date Jasiel Freeman MD [address] [place] [phone] PCP - General Family Practice 08/15/17 documented as of this encounter
--- OUTSIDE RECORDS SUMMARY | 2024-10-24 06:40 | XMS_ITS | Encounter Summary ---
Author Organization [facility] Address [address] [place] [address] Care Team Providers Care Forestry Laborer Name Role Phone Jasiel Freeman MD Primary Care Provider Reason for Visit * Reason Onset Date Comments Home Infusion PA 05/18/2018 Encounter Details Date Type Department Care Team (Late st Contact Info) Description 05/18/2018 Telephone [facility] GASTROENTEROLOGY [address] [facility] [address] [place] [address] Lane Ryan MD NO ADDRESS [...] TB test and script. Faxed to her [phone]. Pt is currently getting home Infusion and PA is good. After I told her this she said Ok she sees auth. documented in this encounter Plan of Treatment Upcoming Encounters Date Type Department Care Team (Late st Contact Info) Description 02/13/2025 10:30 AM CDT Office Visit [facility] IBD and Gastroenterology Center [place] [address] [place] [address] Kitty Dover, MIRTA [address] [place] [address] [place] [address] documented as of this encounter Visit Diagnoses Not on filedocumented in this encounter Care Teams Forestry Laborer Relationship Specialty Start Date End Date Jasiel Freeman MD [address] [place] [phone] PCP - General Family Practice 08/15/17 documented as of this encounter
--- OUTSIDE RECORDS SUMMARY | 2024-10-24 06:40 | XMS_ITS | Encounter Summary ---
Author Organization [facility] Address [address] [place] [address] Care Team Providers Care Microsoft Infrastructure Consultant Name Role Phone Jasiel Freeman MD Primary Care Provider [phone] Reason for Visit * Reason Onset Date Comments Insurance Issues 10/25/2017 Encounter Details Date Type Department Care Team (Late st Contact Info) Description 10/25/2017 Telephone [facility] [address] [place] [address] Thanh Solares, PHARMACIST Insurance Issues [...] Thanh Solares, PHARMACIST - 10/25/2017 3:28 PM LITURGICAL MUSIC DIRECTOR [facility] Specialty & Infusion [place] Progress Note Our office received updated orders for Sterlara for this patient. An appeal letter was written and submitted to the insurance company following a denial of the initial authorization request. [facility] Infusion [facility] [id number] [place] [address], [address] [place] [address] RGICAL MUSIC DIRECTOR documented in this encounter Plan of Treatment Upcoming Encounters Date Type Department Care Team (Late st Contact Info) Description 02/13/2025 10:30 AM CDT Office Visit [facility] Gastroenterology [facility] [place] [address] [place] [address] Kitty Dover ANP [address] [place] [address] documented as of this encounter Visit Diagnoses Not on filedocumented in this encounter Care Teams Microsoft Infrastructure Consultant Relationship Specialty Start Date End Date Jasiel Freeman MD [address] [place] [phone] PCP - General Family Practice 08/15/17 documented as of this encounter
--- OUTSIDE RECORDS SUMMARY | 2024-10-24 06:40 | XMS_ITS | Encounter Summary ---
Author Organization [facility] Address [address] [place] [address] Care Team Providers Care Offset Press Operator Helper Name Role Phone Jasiel Freeman MD Primary Care Provider Encounter Details Date Type Department Care Team (Late st Contact Info) Description 09/21/2017 Abstract [facility] GASTROENTEROLOGY [address] [place] [address] Lane Ryan MD NO ADDRESS [...] 02/13/2025 10:30 AM CDT Office Visit [facility] IBD and Gastroenterology Center [place] [address] [place] [address] Kitty Dover, MIRTA [address] [place] [address] documented as of this encounter Visit Diagnoses Not on filedocumented in this encounter Care Teams Offset Press Operator Helper Relationship Specialty Start Date End Date Jasiel Freeman MD [address] [place] [address] PCP - General Family Practice 08/15/17 documented as of this encounter
--- OUTSIDE RECORDS SUMMARY | 2024-10-24 06:40 | XMS_ITS | Encounter Summary ---
Author Organization [facility] Address , [place] Care Team Providers Care Helper Steel Fabrication Name Role Phone Jasiel Freeman MD Primary Care Provider [phone] Encounter Details Date Type Department Care Team (Late st Contact Info) Description 12/06/[address], [address] [place] [address] Remberto Angel Social History Tobacco [...] for 2nd level appeal. April [facility] Dept [place] HYGIENIST MOBILE COORDINATOR documented in this encounter Plan of Treatment Upcoming Encounters Date Type Department Care Team (Late st Contact Info) Description 02/13/2025 10:30 AM CDT Office Visit [facility] IBD and Gastroenterology [facility] [place] [address] [place] [address] Kitty Dover ANP [address] [place] [address] documented as of this encounter Visit Diagnoses Not on filedocumented in this encounter Care Teams Helper Steel Fabrication Relationship Specialty Start Date End Date Jasiel Freeman MD [address] [place] [phone] PCP - General Family Practice 08/15/17 documented as of this encounter
--- OUTSIDE RECORDS SUMMARY | 2024-10-24 06:40 | XMS_ITS | Encounter Summary ---
Author Organization [facility] Address , [place] Care Team Providers Care Drier Tender Naphthalene Name Role Phone Jasiel Freeman MD Primary Care Provider Encounter Details Date Type Department Care Team (Late st Contact Info) Description 06/13/[address], [address] [place] [address] John Avina PHARMACIST Social History [...] Telephone Encounter - John Avina PHARMACIST - 06/13/2018 11:07 AM CDT [facility] Specialty & Home [facility] [place] [employer] Care Plan Demographics Edgardo Elkins 47 y.o. / male Patient's address on file: [address] [place] [id number] Patient's current location: Same as above Patient Contact Information: Home Phone Work Phone [phone] Insurance Information: [employer] Choice POS II Home Infusion Care Team IV Pharmacy: [facility] / [phone] Nursing: [facility] Physician(s): Dr. Lane Ryan IV access PIV placed by RN prior to each infusion Progress Note Patient admitted to MHIT services upon referral from physician. Patient to receive Entyvio at home every 8 weeks for ulcerative colitis. Edgardo is due for his next infusion tomorrow. Pharmacist contacted [facility]ony to coordinate delivery. Will send medication to [facility] and she will bring with her. Additional [...] by intraveous injection see administration instructions Home TOBACCO HANGER to administer over 30 minutes every 8 [...] care updated and reviewed by FADI Ulloa [facility] Specialty & Home Infusion [address] , [address] [place] [address] documented in this encounter Plan of Treatment Upcoming Encounters Date Type Department Care Team (Late st Contact Info) Description 02/13/2025 10:30 AM CDT Office Visit [facility] IBD and Gastroenterology [facility] [place] [address] [facility] [address] [place] [address] Kitty Dover, MIRTA [address] [place] [address] documented as of this encounter Visit Diagnoses Not on filedocumented in this encounter Care Teams Drier Tender Naphthalene Relationship Specialty Start Date End Date Jasiel Freeman MD [address] [place] [address] PCP - General Family Practice 08/15/17 documented as of this encounter
--- OUTSIDE RECORDS SUMMARY | 2024-10-24 06:40 | XMS_ITS | Encounter Summary ---
Author Organization [facility] Address [address] [place] [address] Care Team Providers Care Lamp Developer Name Role Phone Jasiel Freeman MD Primary Care Provider Reason for Visit * Reason Onset Date Comments Results 09/19/2017 Encounter Details Date Type Department Care Team (Late st Contact Info) Description 09/19/2017 Telephone [facility] GASTROENTEROLOGY [address] [facility] [address] [place] [address] Lane Ryan MD NO ADDRESS [...] Miscellaneous Notes * Telephone Encounter - Surekha Neylaquita Dia - 09/19/2017 9:27 AM CST Patient is calling for results. Also he is having surgery on 10/03/17. He states that you wanted toplace him on Flagyl prior to surgery. Review pathology Anticipating to place on stelara after recovering from surgery on Hip jf NGUAL SOCIAL WORKER documented in this encounter Plan of Treatment Upcoming Encounters Date Type Department Care Team (Late st Contact Info) Description 02/13/2025 10:30 AM CDT Office Visit [facility] IBD and Gastroenterology Center [place] [address] [place] [address] Kitty Dover, MIRTA [address] [place] [phone] documented as of this encounter Visit Diagnoses Not on filedocumented in this encounter Care Teams Lamp Developer Relationship Specialty Start Date End Date Jasiel Freeman MD [address] [place] [phone] PCP - General Family Practice 08/15/17 documented as of this encounter
--- OUTSIDE RECORDS SUMMARY | 2024-10-24 06:40 | XMS_ITS | Encounter Summary ---
Author Organization [facility] Address [address] [place] [address] Care Team Providers Care Tax Appraiser Name Role Phone Jasiel Freeman MD Primary Care Provider [phone] Encounter Details Date Type Department Care Team (Late st Contact Info) Description 09/22/2017 Abstract [facility] GASTROENTEROLOGY [address] [place] [address] Lane Ryan MD NO ADDRESS [...] Description 02/13/2025 10:30 AM CDT Office Visit [facility] IBD and Gastroenterology [facility] [place] [address] [place] [address] Kitty Dover, MIRTA [address] [place] [address] documented as of this encounter Visit Diagnoses Not on filedocumented in this encounter Care Teams Tax Appraiser Relationship Specialty Start Date End Date Jasiel Freeman MD [address] [place] [address] PCP - General Family Practice 08/15/17 documented as of this encounter
--- OUTSIDE RECORDS SUMMARY | 2024-10-24 06:40 | XMS_ITS | Encounter Summary ---
Author Organization [facility] Address [address] [place] [address] Care Team Providers Care Site Project Manager Name Role Phone Jasiel Freeman MD Primary Care Provider Encounter Details Date Type Department Care Team (Late st Contact Info) Description 12/21/2017 Abstract [facility] GASTROENTEROLOGY [address] [place] [address] Lane Ryan [...] [facility] IBD and Gastroenterology Center [place] [address] [place] [address] Kitty Dover, MIRTA [address] [place] [address] documented as of this encounter Visit Diagnoses Not on filedocumented in this encounter Care Teams Site Project Manager Relationship Specialty Start Date End Date Jasiel Freeman MD [address] [place] [address] PCP - General Family Practice 08/15/17 documented as of this encounter
--- OUTSIDE RECORDS SUMMARY | 2024-10-24 06:40 | XMS_ITS | Encounter Summary ---
Author Organization [facility] Address [address] [place] [address] Care Team Providers Care Enterprise Software Developer Name Role Phone Jasiel Freeman MD Primary Care Provider Reason for Visit * Reason Onset Date Comments Insurance Issues 10/30/2017 Encounter Details Date Type Department Care Team (Late st Contact Info) Description 10/30/2017 Telephone [facility] [address] [place] [address] Thanh Solares, PHARMACIST Insurance Issues [...] Thanh Solares, PHARMACIST - 10/30/2017 10:46 AM FACTORY MACHINE COMPUTER OPERATOR [facility] Specialty & Infusion [place] Progress Note Our office received a denial for the authorization request for Marielena. I phoned Dr Ryan's office and spoke with Kadie regarding having Dr Ryan perform a [id number] discussion. [facility] & Home [facility] [id number] [place] [address], [address] [place] [address] ORY MACHINE COMPUTER OPERATOR documented in this encounter Plan of Treatment Upcoming Encounters Date Type Department Care Team (Late st Contact Info) Description 02/13/2025 10:30 AM CDT Office Visit [facility] IBD and Gastroenterology Center [place] [address] [place] [address] Kitty Dover ANP [address] [place] [address] [facility] [address] [place] [address] documented as of this encounter Visit Diagnoses Not on filedocumented in this encounter Care Teams Enterprise Software Developer Relationship Specialty Start Date End Date Jasiel Freeman MD [address] [place] [phone] PCP - General Family Practice 08/15/17 documented as of this encounter
--- OUTSIDE RECORDS SUMMARY | 2024-10-24 06:40 | XMS_ITS | Encounter Summary ---
Author Organization [facility] Address , [place] Care Team Providers Care Corporate Specialist Name Role Phone Jasiel Freeman MD Primary Care Provider Encounter Details Date Type Department Care Team (Late st Contact Info) Description 02/22/2018 Home Visit [address], [address] [place] [address] Ebony Cruz, JIE Social History [...] original note were not included. [facility] Specialty and Home Infusion Pharmacy [address] [place] [address] Home Infusion NURSING follow up Tamekacristelraad Elkins 1970 [address] [facility] [address] 02/22/2018 Provider - Ebony Cruz RN Driving [...] by intraveous injection see administration instructions Home YOUTH SERVICES SPECIALIST to administer over 30 minutes every [...] 02/22/18 16 11/29/17 16 11/15/17 16 1. [facility] assessment and implementation of [...] reactions. Patient knows how to reorder medications. [facility] Specialty and Home Infusion Pharmacy will [...] 10:30 AM CDT Office Visit [facility] IBD and Gastroenterology Center [place] [address] [place] [address] Kitty Dover ANP [address] [place] [address] documented as of this encounter Visit Diagnoses Not on filedocumented in this encounter Care Teams Corporate Specialist Relationship Specialty Start Date End Date Jasiel Freeman MD [address] [place] [address] PCP - General Family Practice 08/15/17 documented as of this encounter
--- OUTSIDE RECORDS SUMMARY | 2024-10-24 06:40 | XMS_ITS | Encounter Summary ---
Author Organization [facility] Address [address] [place] [address] Care Team Providers Care Surgical Corsetier Name Role Phone Jasiel Freeman MD Primary Care Provider [phone] Encounter Details Date Type Department Care Team (Late st Contact Info) Description 10/10/2017 Abstract [facility] GASTROENTEROLOGY [address] [place] [address] Lane Ryan MD NO ADDRESS [...] [facility] IBD and Gastroenterology Center [place] [address] [place] [address] Kitty Dover, MIRTA [address] [place] [address] documented as of this encounter Visit Diagnoses Not on filedocumented in this encounter Care Teams Surgical Corsetier Relationship Specialty Start Date End Date Jasiel Freeman MD [address] [place] [address] PCP - General Family Practice 08/15/17 documented as of this encounter
--- OUTSIDE RECORDS SUMMARY | 2024-10-24 06:40 | XMS_ITS | Encounter Summary ---
Author Organization [facility] Address [address] [place] [address] Care Team Providers Care Student Nurse Name Role Phone Martin Kelley MD Primary Care Provider [phone] Reason for Visit * Reason Comments Medication Refill Encounter Details Date Type Department Care Team (Late st Contact Info) Description 06/20/2016 Refill [facility] GASTROENTEROLOGY [address] [facility] [address] [place] [address] Lane Ryan MD NO ADDRESS [...] [place] [address] [place] [address] Kitty Dover, ANP [address] [place] [address] documented as of this encounter Visit Diagnoses Not on filedocumented in this encounter Care Teams Student Nurse Relationship Specialty Start Date End Date Martin Kelley MD PCP - General Internal Medicine 02/16/12 08/14/17 documented as of this encounter
--- OUTSIDE RECORDS SUMMARY | 2024-10-24 06:40 | XMS_ITS | Encounter Summary ---
Author Organization [facility] Address [address] [place] [address] Care Team Providers Care Shovel Mechanic Name Role Phone Jasiel Freeman MD Primary Care Provider Encounter Details Date Type Department Care Team (Late st Contact Info) Description 08/29/2017 Abstract [facility] GASTROENTEROLOGY [address] [place] [address] Lane Ryan MD NO ADDRESS [...] [facility] [place] [address] [place] [address] Kitty Dover, MIRTA [address] [place] [address] documented as of this encounter Visit Diagnoses Not on filedocumented in this encounter Care Teams Shovel Mechanic Relationship Specialty Start Date End Date Jasiel Freeman MD [address] [place] [address] PCP - General Family Practice 08/15/17 documented as of this encounter
--- OUTSIDE RECORDS SUMMARY | 2024-10-24 06:40 | XMS_ITS | Encounter Summary ---
Author Organization [facility] Address [address] [place] [address] Care Team Providers Care Stevedoring Supervisor Name Role Phone Jasiel Freeman MD Primary Care Provider Reason for Visit * Reason Onset Date Comments Stelara denial 12/06/2017 Encounter Details Date Type Department Care Team (Late st Contact Info) Description 12/06/2017 Telephone [facility] Gastroenterology [place] [address] [facility] [address] [place] [address] Lane Ryan MD NO ADDRESS [...] next level of appeal would be a [id number]. Otherwise, let us know how we should proceed. Bo. Please review chart and advise. Thank you. ATRIC LICENSED PRACTICAL NURSE documented in this encounter Plan of Treatment Upcoming Encounters Date Type Department Care Team (Late st Contact Info) Description 02/13/2025 10:30 AM CDT Office Visit [facility] IBD and Gastroenterology Center [place] [address] [place] [address] Kitty Dover ANP [address] [address] [place] [address] documented as of this encounter Visit Diagnoses Not on filedocumented in this encounter Care Teams Stevedoring Supervisor Relationship Specialty Start Date End Date Jasiel Freeman MD [address] [place] [phone] PCP - General Family Practice 08/15/17 documented as of this encounter
--- OUTSIDE RECORDS SUMMARY | 2024-10-24 06:40 | XMS_ITS | Encounter Summary ---
Author Organization [facility] Address [address] [place] [address] Care Team Providers Care Concreter Name Role Phone Jasiel Freeman MD Primary Care Provider Reason for Visit * Reason Comments Follow Up Encounter Details Date Type Department Care Team (Latest Contact Info) Description 10/05/2017 9:30 AM HEAVY EQUIPMENT RENTAL ASSOCIATE Office Visit [facility] GASTROENTEROLOGY [address] [facility] [address] [place] [address] Lane Ryan MD NO ADDRESS [...] Comments Blood Pressure 131/92 10/05/2017 9:26 AM HEAVY EQUIPMENT RENTAL ASSOCIATE Pulse 86 10/05/2017 9:26 AM HEAVY EQUIPMENT RENTAL ASSOCIATE Temperature - - Respiratory Rate - - Oxygen Saturation 97% 10/05/2017 9:26 AM HEAVY EQUIPMENT RENTAL ASSOCIATE Inhaled Oxygen Concentration - - Weight 87.5 kg (192 lb 12.8 oz) 10/05/2017 9:26 AM HEAVY EQUIPMENT RENTAL ASSOCIATE Height 175.3 cm (5' 9 ) 10/05/2017 9:26 AM HEAVY EQUIPMENT RENTAL ASSOCIATE Body Mass Index 28.47 10/05/2017 9:26 AM HEAVY EQUIPMENT RENTAL ASSOCIATE documented in this encounter Progress Notes * [...] B SURFACE ANTIGEN; Future Lane Ryan MD Y EQUIPMENT RENTAL ASSOCIATE documented in this encounter Plan of Treatment Upcoming Encounters Date Type Department Care Team (Late st Contact Info) Description 02/13/2025 10:30 AM CDT Office Visit [facility] IBD and Gastroenterology [facility] [place] [address] [place] [address] Kitty Dover ANP [address] [place] [address] documented as of this encounter Results * HEPATITIS B SURFACE ANTIGEN (10/05/2017 10:19 AM HEAVY EQUIPMENT RENTAL ASSOCIATE) Pathologist [facility] HEPATITIS B SURFACE AG NON-REACTI VE Non-reacti ve 10/05/2017 12:30 PM HEAVY EQUIPMENT RENTAL ASSOCIATE [facility] Blood Venipuncture / Unknown 10/05/2017 10:19 AM HEAVY EQUIPMENT RENTAL ASSOCIATE 10/05/2017 10:30 AM HEAVY EQUIPMENT RENTAL ASSOCIATE Lane Ryan MD CHEMISTRY ORDERABLES [facility]# [id number] [address] [facility] [place] [address] * QUANTIFERON TB GOLD (10/05/2017 10:19 AM HEAVY EQUIPMENT RENTAL ASSOCIATE) Pathologist [facility] QUANTIFERON(R)-TB GOLD Negative Negative 10/09/2017 12:57 PM HEAVY EQUIPMENT RENTAL ASSOCIATE [facility] Comment: No interferon-gamma response to M. tuberculosis antigens was detected. Infection with M. tuberculosis is unlikely. A negative result alone does not exclude infection with M. tuberculosis. For detailed information regarding test interpretation see: [email or web address]-[email or web address]/ [email or web address] QuantiFERON TB Ag Value 0.00 IU/mL 10/09/2017 12:57 PM HEAVY EQUIPMENT RENTAL ASSOCIATE [facility] MITOGEN-NIL >10.00 IU/mL 10/09/2017 12:57 PM HEAVY EQUIPMENT RENTAL ASSOCIATE [facility] NIL 0.04 IU/mL 10/09/2017 12:57 PM HEAVY EQUIPMENT RENTAL ASSOCIATE [facility] Comment: Test Performed by: [facility] [address] [place] [address] Blood Venipuncture / Unknown 10/05/2017 10:19 AM HEAVY EQUIPMENT RENTAL ASSOCIATE 10/05/2017 10:30 AM HEAVY EQUIPMENT RENTAL ASSOCIATE Lane Ryan MD CHEMISTRY ORDERABLES [facility] * (ABNORMAL) COMPREHENSIVE METABOLIC PANEL (10/05/2017 10:19 AM HEAVY EQUIPMENT RENTAL ASSOCIATE) SODIUM 141 136 - 145 mmol/L 10/05/2017 11:32 AM [facility] POTASSIUM 5.0 3.5 - 5.0 mmol/L 10/05/2017 11:32 AM [facility] CHLORIDE 103 98 - 107 mmol/L 10/05/2017 11:32 AM [facility] CO2 26 22 - 29 mmol/L 10/05/2017 11:32 AM [facility] CALCIUM 9.5 8.6 - 10.2 mg/dL 10/05/2017 11:32 AM [facility] BUN 14 6 - 20 mg/dL 10/05/2017 11:32 AM [facility] CREATININE 1.49(H) 0.67 - 1.17 mg/dL 10/05/2017 11:32 AM [facility] GLUCOSE 80 74 - 99 mg/dL 10/05/2017 11:32 AM [facility] TOTAL PROTEIN 7.0 6.7 - 8.6 g/dL 10/05/2017 11:32 AM [facility] ALBUMIN 3.9 3.5 - 5.2 g/dL 10/05/2017 11:32 AM [facility] BILIRUBIN TOTAL 0.3 0.3 - 1.2 mg/dL 10/05/2017 11:32 AM [facility] ALKALINE PHOSPHATASE 64 40 - 129 U/L 10/05/2017 11:32 AM [facility] AST 25 <41 U/L 10/05/2017 11:32 AM [facility] ALT 19 <42 U/L 10/05/2017 11:32 AM [facility] GFR 51(L) >=60 mL/min/1.7 3 sq meter 10/05/2017 11:32 AM [facility] Comment: eGFR has not been validated for [...] mL/min/1.7 3 sq meter 10/05/2017 11:32 AM [facility] ANION GAP 12 8 - 16 mmol/L 10/05/2017 11:32 AM [facility] Blood Venipuncture / Unknown 10/05/2017 10:19 AM HEAVY EQUIPMENT RENTAL ASSOCIATE 10/05/2017 10:30 AM [facility] - 10/05/2017 11:32 AM [facility] Samples containing indocyanine green cause interferences on Total and/or Direct Bilirubin and must not be measured. Lane Ryan MD CHEMISTRY ORDERABLES [facility]# [id number] [address] [place] [address] * C-REACTIVE PROTEIN (10/05/2017 10:19 AM HEAVY EQUIPMENT RENTAL ASSOCIATE) CRP 3.2 <5.0 mg/L 10/05/2017 11:30 AM [facility] [employer] [facility] Blood Venipuncture / Unknown 10/05/2017 10:19 AM HEAVY EQUIPMENT RENTAL ASSOCIATE 10/05/2017 10:30 AM HEAVY EQUIPMENT RENTAL ASSOCIATE Lane Ryan MD CHEMISTRY ORDERABLES [employer] [facility] CLIA# [id number] [address] [place] [address] * (ABNORMAL) CBC WITH DIFFERENTIAL (10/05/2017 10:19 AM HEAVY EQUIPMENT RENTAL ASSOCIATE) WBC 5.6 4.0 - 9.8 K/uL 10/05/2017 10:55 AM [facility] [employer] [facility]. [facility] RBC 6.32(H) 4.50 - 5.40 M/uL 10/05/2017 10:55 AM HEAVY EQUIPMENT RENTAL ASSOCIATE [employer] - . [facility] HEMOGLOBIN 17.2(H) 13.6 - 16.5 g/dL 10/05/2017 10:55 AM [facility] - . [facility] HEMATOCRIT 54.7(H) 40.0 - 48.0 % 10/05/2017 10:55 AM HEAVY EQUIPMENT RENTAL ASSOCIATE [employer] - [facility] MCV 86.6 82.0 - 99.0 fL 10/05/2017 10:55 AM [facility] - [facility] MCH 27.2 27.2 - 32.6 pg 10/05/2017 10:55 AM [facility] - . [facility] MCHC 31.4(L) 31.5 - 35.5 g/dL 10/05/2017 10:55 AM [facility] RDW 13.2 11.5 - 14.5 % 10/05/2017 10:55 AM [facility] RDW-STDEV 41.2 37.1 - 48.7 fL 10/05/2017 10:55 AM [facility] - . [facility] PLATELETS 304 140 - 350 K/uL 10/05/2017 10:55 AM [facility] - [facility] MPV 10.3 9.3 - 12.4 fL 10/05/2017 10:55 AM [facility] [employer] [facility] NEUTROPHILS 67 % 10/05/2017 10:55 AM [facility] [employer] [facility] LYMPHOCYTES 18 % 10/05/2017 10:55 AM [facility] [employer] [facility] MONOCYTES 12 % 10/05/2017 10:55 AM [facility] [employer] [facility] EOSINOPHILS 2 % 10/05/2017 10:55 AM [facility] [employer] [facility] BASOPHILS 1 % 10/05/2017 10:55 AM [facility] [employer] IMMATURE GRANULOCYTES 1 % 10/05/2017 10:55 AM [facility] [employer] [facility] Comment:IG (Immature Granulo cyte) count includes Metamyelocytes, Myelocytes, and Promyelocytes NEUTROPHIL ABSOLUTE 3.74 1.90 - 7.00 K/uL 10/05/2017 10:55 AM [facility] [employer] [facility] LYMPHOCYTE ABSOLUTE 1.01 0.70 - 4.50 K/uL 10/05/2017 10:55 AM [facility] [employer] [facility] MONOCYTE ABSOLUTE 0.66 0.10 - 1.30 K/uL 10/05/2017 10:55 AM [facility] [employer] [facility] EOSINOPHIL ABSOLUTE 0.12 0.00 - 0.70 K/uL 10/05/2017 10:55 AM [facility] [employer] [facility] BASOPHILS ABSOLUTE 0.04 0.00 - 0.20 K/uL 10/05/2017 10:55 AM [facility] [employer] [facility] - . [facility] IMMATURE GRANULOCYTES ABSOLUTE 0.03 0.00 - 0.03 K/uL 10/05/2017 10:55 AM [facility] [employer] [facility]. [facility] Blood Venipuncture / Unknown 10/05/2017 10:19 AM HEAVY EQUIPMENT RENTAL ASSOCIATE 10/05/2017 10:42 AM HEAVY EQUIPMENT RENTAL ASSOCIATE Lane Ryan MD HEMATOLOGY ORDERABLE S [facility] ASSET4 [facility] CLIA# [id number] [address] [place] [address] documented in this encounter Visit Diagnoses Diagnosis Inflammatory bowel disease- Primary Other and unspecified noninfectious gastroenteritis and colitis Crohn's disease of small intestine with other complication documented in this encounter Care Teams Concreter Relationship Specialty Start Date End Date Jasiel Freeman MD [address] [place] [phone] PCP - General Family Practice 08/15/17 documented as of this encounter
--- OUTSIDE RECORDS SUMMARY | 2024-10-24 06:40 | XMS_ITS | Encounter Summary ---
Author Organization [facility] Address [address] [place] [address] Care Team Providers Care Hall Worker Name Role Phone Jasiel Freeman MD Primary Care Provider [phone] Reason for Visit * Reason Onset Date Comments Insurance Issues 12/06/2017 Encounter Details Date Type Department Care Team (Late st Contact Info) Description 12/06[facility] [address] [place] [address] Thanh Solares, PHARMACIST Insurance Issues [...] Thanh Solares, PHARMACIST - 12/06/2017 9:23 AM DRY CLEANER [facility] [place] Progress Note Our office received a 2nd level denial of the authorization request for Marielena. A message was sentto the MD office for their review. [facility] [place] [address] [facility], [address] [place] [address] CLEANER documented in this encounter Plan of Treatment Upcoming Encounters Date Type Department Care Team (Late st Contact Info) Description 02/13/2025 10:30 AM CDT Office Visit [facility] IBD and Gastroenterology [facility] [place] [address] [place] [address] Kitty Dover, MIRTA [address] [place] [address] documented as of this encounter Visit Diagnoses Not on filedocumented in this encounter Care Teams Hall Worker Relationship Specialty Start Date End Date Jasiel Freeman MD [address] [place] [phone] PCP - General Family Practice 08/15/17 documented as of this encounter
--- OUTSIDE RECORDS SUMMARY | 2024-10-24 06:40 | XMS_ITS | Encounter Summary ---
Author Organization [facility] Address , [place] Care Team Providers Care Knot Bumper Name Role Phone Jasiel Freeman MD Primary Care Provider [phone] Encounter Details Date Type Department Care Team (Late st Contact Info) Description 08/08/[address], [address] [place] [address] John Avina PHARMACIST Social History [...] Avina PHARMACIST - 08/08/2018 9:38 AM CDT [facility] Specialty & Home [facility] [place] Pharmaceutical Care Plan Demographics Edgardo Elkins 47 y.o. / male Patient's address on file: [address] [place] [address] Patient's current location: Same as above Patient Contact Information: Home Phone Work Phone [phone] Insurance Information: Aetna Choice POS II Home Infusion Care Team IV Pharmacy: [facility] / [phone] Nursing: [facility] Physician(s): Dr. Lane Ryan IV access PIV placed by RN prior to each infusion Progress Note Patient admitted to MHIT services upon referral from physician. Patient to receive Entyvio at home every 8 weeks for ulcerative colitis. Edgardo is due for his next infusion tomorrow. Pharmacist contacted [employer]AR[employer] PRESS OPERATOR Ebony to coordinate delivery. Will send medication to [employer] PR[employer] OPERATOR and she will bring with her. Additional [...] by intraveous injection see administration instructions Home MACARONI PRESS OPERATOR to administer over 30 minutes [...] care updated and reviewed by FADI Ulloa [facility]fusion [address] , [address] [place] [address] documented in this encounter Plan of Treatment Upcoming Encounters Date Type Department Care Team (Late st Contact Info) Description 02/13/2025 10:30 AM CDT Office Visit [facility] IBD and Gastroenterology Center [place] [address] [facility] [address] [place] [address] Kitty Dover, MIRTA [address] [place] [address] documented as of this encounter Visit Diagnoses Not on filedocumented in this encounter Care Teams Knot Bumper Relationship Specialty Start Date End Date Jasiel Freeman MD [address] [place] [address] PCP - General Family Practice 08/15/17 documented as of this encounter
--- OUTSIDE RECORDS SUMMARY | 2024-10-24 06:40 | XMS_ITS | Encounter Summary ---
Author Organization [facility] Address [address] [place] [address] Care Team Providers Care Aquatics Assistant Department Head Name Role Phone Jasiel Freeman MD Primary Care Provider [phone] Reason for Visit * Reason Onset Date Comments Medication Refill 10/24/2017 Encounter Details Date Type Department Care Team (Late st Contact Info) Description 10/24/2017 Telephone [facility] GASTROENTEROLOGY [address] [facility] [address] [place] [address] Lane Ryan MD NO ADDRESS [...] is requesting prescription for Lomotil sent to [facility] in [place]. ER INTERNSHIP * Telephone Encounter - Kadie Nye - 10/24/2017 8:12 AM CST Our office received a denial for the Stelara for Edgardo Elkins. They state that Stelara is not coveredif the patient does not have a diagnosis of plaque psoriasis, psoriatic arthritis or Chron???s disease. The diagnosis listed for the patient in Epic is Ulcerative colitis. Please advise. Bo ER INTERNSHIP documented in this encounter Plan of Treatment Upcoming Encounters Date Type Department Care Team (Late st Contact Info) Description 02/13/2025 10:30 AM CDT Office Visit [facility] IBD and Gastroenterology Center [place] [address] [facility] [address] [place] [address] Kitty Dover ANP [address] [facility] [address] [place] [phone] documented as of this encounter Visit Diagnoses Not on filedocumented in this encounter Care Teams Aquatics Assistant Department Head Relationship Specialty Start Date End Date Jasiel Freeman MD [address] [place] [phone] PCP - General Family Practice 08/15/17 documented as of this encounter
--- OUTSIDE RECORDS SUMMARY | 2024-10-24 06:40 | XMS_ITS | Encounter Summary ---
Author Organization [facility] Address [address] [place] [address] Care Team Providers Care Grinder Set Up Operator Gear Tool Name Role Phone Martin Kelley MD Primary Care Provider [phone] Reason for Visit * Reason Onset Date Comments Ulcerative Colitis 08/01/2016 Encounter Details Date Type Department Care Team (Late st Contact Info) Description 08/01/2016 Telephone [facility] GASTROENTEROLOGY [address] [facility] [address] [place] [address] Lane Ryan MD NO ADDRESS [...] Patient is requesting a prescription send to [facility] in [place]. If you decide of Flagyl, could you please also send something for nausea. documented in this encounter Plan of Treatment Upcoming Encounters Date Type Department Care Team (Late st Contact Info) Description 02/13/2025 10:30 AM CDT Office Visit [facility] IBD and Gastroenterology Center [place] [address] [facility] [address] [place] [address] Kitty Dover, BANNER [address] [place] [address] [place] [address] documented as of this encounter Visit Diagnoses Not on filedocumented in this encounter Care Teams Grinder Set Up Operator Gear Tool Relationship Specialty Start Date End Date Martin Kelley MD PCP - General Internal Medicine 02/16/12 08/14/17 documented as of this encounter
--- OUTSIDE RECORDS SUMMARY | 2024-10-24 06:40 | XMS_ITS | Encounter Summary ---
Author Organization [facility] Address [address] [place] [address] Care Team Providers Care City Carrier Assistant Name Role Phone Jasiel Freeman MD Primary Care Provider Reason for Visit * Reason Onset Date Comments Medication Refill 06/04/2018 Encounter Details Date Type Department Care Team (Late st Contact Info) Description 06/04/2018 Refill [facility] GASTROENTEROLOGY [address] [facility] [address] [place] [address] Lane Ryan MD NO ADDRESS [...] Center [place] [address] [place] [address] Kitty Dover, ANP [address] [facility] [address] [place] [address] documented as of this encounter Visit Diagnoses Not on filedocumented in this encounter Care Teams City Carrier Assistant Relationship Specialty Start Date End Date Jasiel Freeman MD [address] [place] [phone] PCP - General Family Practice 08/15/17 documented as of this encounter
--- OUTSIDE RECORDS SUMMARY | 2024-10-24 06:40 | XMS_ITS | Encounter Summary ---
Author Organization [facility] Address [address] [place] [address] Care Team Providers Care Toll Gate Tender Name Role Phone Martin Kelley MD Primary Care Provider [phone] Encounter Details Date Type Department Care Team (Late st Contact Info) Description 11/11/2016 Abstract [facility] GASTROENTEROLOGY [address] [facility] [address] [place] [address] Lane Ryan MD NO ADDRESS [...] 10:30 AM CDT Office Visit [facility] IBD and Gastroenterology Center [place] [address] [place] [address] Kitty Dover, MIRTA [address] [place] [address] documented as of this encounter Visit Diagnoses Not on filedocumented in this encounter Care Teams Toll Gate Tender Relationship Specialty Start Date End Date Martin Kelley MD PCP - General Internal Medicine 02/16/12 08/14/17 documented as of this encounter
--- OUTSIDE RECORDS SUMMARY | 2024-10-24 06:40 | XMS_ITS | Encounter Summary ---
Author Organization [facility] Address , [place] Care Team Providers Care Lining Maker Name Role Phone Jasiel Freeman MD Primary Care Provider Encounter Details Date Type Department Care Team (Late st Contact Info) Description 04/18/[address], [address] [place] [address] John Avina PHARMACIST Social History [...] Avina PHARMACIST - 04/18/2018 3:26 PM CDT [facility] Specialty & Home [facility] [place] Pharmaceutical Care Plan Demographics Edgardo Elkins 47 y.o. / male Patient's address on file: [address] [place] [address] Patient's current location: Same as above Patient Contact Information: Home Phone Work Phone [phone] Insurance Information: Aetna Choice POS II Home Infusion Care Team IV Pharmacy: [facility] / [phone] Nursing: [facility] Physician(s): Dr. Lane Ryan IV access PIV placed by RN prior to each infusion Progress Note Patient admitted to MHIT services upon referral from physician. Patient to receive Entyvio at home every 8 weeks for ulcerative colitis. Edgardo is due for his next infusion this week. Pharmacist contacted GOLF COURSE KEEPER Ebony to coordinate delivery. Will send medication to GOLF COURSE KEEPER and she will bring with her. Additional [...] by intraveous injection see administration instructions Home GOLF COURSE KEEPER to administer over 30 minutes every 8 [...] care updated and reviewed by FADI Ulloa [facility] Infusion [address] , [address] [place] [address] documented in this encounter Plan of Treatment Upcoming Encounters Date Type Department Care Team (Late st Contact Info) Description 02/13/2025 10:30 AM CDT Office Visit [facility] IBD and Gastroenterology Center [place] [address] [facility] [address] [place] [address] Kitty Dover, MIRTA [address] [place] [address] documented as of this encounter Visit Diagnoses Not on filedocumented in this encounter Care Teams Lining Maker Relationship Specialty Start Date End Date Jasiel Freeman MD [address] [place] [address] PCP - General Family Practice 08/15/17 documented as of this encounter
--- OUTSIDE RECORDS SUMMARY | 2024-10-24 06:40 | XMS_ITS | Encounter Summary ---
Author Organization [facility] Address [address] [place] [address] Care Team Providers Care Barrel Lapper Name Role Phone Jasiel Freeman MD Primary Care Provider Reason for Referral * Tx/Med Therapy Plan Auth (Routine) - Closed Specialty Diagnoses / Procedures Referred By Contac t Referred To Contact Oncology Diagnoses Ulcerative colitis, unspecified Procedures INFUSION THERAPY [place] INJECTION, VEDOLIZUMAB CROHN'S / COLITIS - ENTLane Colón MD NO ADDRESS ON FILE [facility] 2nd Floor [place] [address] [place] [address] Referral ID Status Reason Start Date Expiration Date Visits Re quested Visits Authorized [id number] Closed 11/15/2017 05/15/2018 99 99 [place] LANGUAGE THERAPIST Encounter Details Date Type Department Care Team (Latest Contact Info) Description 11/09/2017 Orders Only [facility] GASTROENTEROLOGY [address] [facility] [address] [place] [address] Lane Ryan MD NO ADDRESS [...] 10:30 AM CDT Office Visit [facility]ology [facility] [place] [address] [facility] [address] [place] [phone] Kitty Dover [facility] [address] [facility] [address] [place] [address] documented as of this encounter Visit Diagnoses Diagnosis Crohn's disease of small intestine without complication- Primary Regional enteritis of small intestine documented in this encounter Care Teams Barrel Lapper Relationship Specialty Start Date End Date Jasiel Freeman MD [address] [place] [address] PCP - General Family Practice 08/15/17 documented as of this encounter
--- OUTSIDE RECORDS SUMMARY | 2024-10-24 06:40 | XMS_ITS | Encounter Summary ---
Author Organization [facility] Address [address] [place] [address] Care Team Providers Care Vba Programmer Name Role Phone Jasiel Freeman MD Primary Care Provider [phone] Encounter Details Date Type Department Care Team (Late Contact Info) Description 10/05/2017 Orders Only [facility] Admitting [address] [place] [address] Ilene Dailey MD [address] [facility] [address] [place] [address] Social History Tobacco Use Types [...] [facility] IBD and Gastroenterology [facility] [place] [address] [place] [address] Kitty Dover, ANP [address] [address] documented as of this encounter Visit Diagnoses Not on filedocumented in this encounter Care Teams Vba Programmer Relationship Specialty Start Date End Date Jasiel Freeman MD [address] [place] [phone] PCP - General Family Practice 08/15/17 documented as of this encounter
--- OUTSIDE RECORDS SUMMARY | 2024-10-24 06:40 | XMS_ITS | Encounter Summary ---
Author Organization [facility] Address [address] [place] [address] Care Team Providers Care Low Raw Sugar Cutter Name Role Phone Jasiel Freeman MD Primary Care Provider Reason for Visit * Auth/Cert Specialty Diagnoses / Procedures Referred By Lambert pizarro Referred To Contact Gastroenterology Diagnoses UC (ulcerative colitis) UC (ulcerative colitis) [K51.90] Procedures COLONOSCOPY [facility] [address] [place] [address] Referral ID Status Reason Start Date Expiration Date Visits Re quested Visits Authorized [id number] 1 1 Encounter Details Date Type Department Care Team (Late st Contact Info) Description 08/24/2017 12:41 PM CDT Anesthesia Event [facility] S [facility] [address] [place] [address] Sharon Millan MD [address] [place] [address] Anesthesia Record Procedure Summary Procedure [...] discussed with Patient. Plan discussed with Nurse Parts Department Supervisor. Smoking Compliance Patient did not smoke on day of surgery documented in this encounter Plan of Treatment Upcoming Encounters Date Type Department Care Team (Late st Contact Info) Description 02/13/2025 10:30 AM CDT Office Visit [facility] and Gastroenterology Center [place] [address] [place] [address] Kitty Dover, MIRTA [address] [place] [address] documented as of this [...] mg documented in this encounter Care Teams Low Raw Sugar Cutter Relationship Specialty Start Date End Date Jasiel Freeman MD [address] [place] [phone] PCP - General Family Practice 08/15/17 documented as of this encounter
--- OUTSIDE RECORDS SUMMARY | 2024-10-24 06:40 | XMS_ITS | Encounter Summary ---
Author Organization [facility] Address [address] [place] [address] Care Team Providers Care Furnace Maintenance Name Role Phone Jasiel Freeman MD Primary Care Provider Reason for Visit * Reason Onset Date Comments stelara review 11/14/2017 Encounter Details Date Type Department Care Team (Late st Contact Info) Description 11/14/2017 Telephone [facility]3] GASTROENTEROLOGY [address] [facility] [address] [place] [address] Lane Ryan MD NO ADDRESS [...] send this pt for urgent review fax# [phone] CAL DELIVERY DRIVER documented in this encounter Plan of Treatment Upcoming Encounters Date Type Department Care Team (Late st Contact Info) Description 02/13/2025 10:30 AM CDT Office Visit [facility] IBD and Gastroenterology Center [place] [address] [place] [address] Kitty Dover ANP [address] [place] [address] [place] [address] documented as of this encounter Visit Diagnoses Not on filedocumented in this encounter Care Teams Furnace Maintenance Relationship Specialty Start Date End Date Jasiel Freeman MD [address] [place] [phone] PCP - General Family Practice 08/15/17 documented as of this encounter
--- OUTSIDE RECORDS SUMMARY | 2024-10-24 06:40 | XMS_ITS | Encounter Summary ---
Author Organization [facility] Address [address] [place] [address] Care Team Providers Care Water And Gas Helper Name Role Phone Jasiel Freeman MD Primary Care Provider [phone] Reason for Visit * Reason Onset Date Comments Results 10/05/2017 Encounter Details Date Type Department Care Team (Late st Contact Info) Description 10/05/2017 Telephone [facility] GASTROENTEROLOGY [address] [facility] [address] [place] [address] Lane Ryan MD NO ADDRESS [...] for elective hip surgery. Next Monday at [place]. I have left a message for the orthopedic surgeons nurse that he can. Lab work on Monday morning before proceeding with surgery. They apparently want to do the surgery with a spinal. It was seen with his frequent incontinence that a general anesthetic. Should be considered. Lane Ryan OUT WAITRESS documented in this encounter Plan of Treatment Upcoming Encounters Date Type Department Care Team (Late st Contact Info) Description 02/13/2025 10:30 AM CDT Office Visit [facility] IBD and Gastroenterology Center [place] [address] [facility] [address] [place] [address] Kitty Dover, MIRTA [address] [place] [address] documented as of this encounter Visit Diagnoses Not on filedocumented in this encounter Care Teams Water And Gas Helper Relationship Specialty Start Date End Date Jasiel Freeman MD [address] [place] [address] PCP - General Family Practice 08/15/17 documented as of this encounter
--- OUTSIDE RECORDS SUMMARY | 2024-10-24 06:40 | XMS_ITS | Encounter Summary ---
Author Organization [facility] Address [address] [place] [address] Care Team Providers Care Linux System Administrator Name Role Phone Jasiel Freeman MD Primary Care Provider Encounter Details Date Type Department Care Team (Late st Contact Info) Description 10/09/[address] [facility] GASTROENTEROLOGY [address]A [address] [place] [address] Lane Ryan MD NO ADDRESS [...] 02/13/2025 10:30 AM CDT Office Visit [facility] IBD and Gastroenterology Center [place] [address] [place] [address] Kitty Dover, MIRTA [address] [place] [address] documented as of this encounter Visit Diagnoses Not on filedocumented in this encounter Care Teams Linux System Administrator Relationship Specialty Start Date End Date Jasiel Freeman MD [address] [place] [address] PCP - General Family Practice 08/15/17 documented as of this encounter
--- OUTSIDE RECORDS SUMMARY | 2024-10-24 06:40 | XMS_ITS | Encounter Summary ---
Author Organization [facility] Address [address] [place] [address] Care Team Providers Care Mend Worker Name Role Phone Martin Kelley MD Primary Care Provider [phone] Reason for Visit * Reason Onset Date Comments Medication Refill 10/19/2015 Encounter Details Date Type Department Care Team (Late st Contact Info) Description 10/19/2015 Refill [facility] GASTROENTEROLOGY [address]A [address] [facility] [address] [place] [address] Lane Ryan MD NO ADDRESS [...] AM CST Patient requested 90 day supply LRY ESTIMATOR documented in this encounter Plan of Treatment Upcoming Encounters Date Type Department Care Team (Late st Contact Info) Description 02/13/2025 10:30 AM CDT Office Visit [facility] IBD and Gastroenterology Center [place] [address] [place] [address] Kitty Dover, MIRTA [address] [place] [place] [address] documented as of this encounter Visit Diagnoses Diagnosis IBD (inflammatory bowel disease)- Primary Other and unspecified noninfectious gastroenteritis and colitis documented in this encounter Care Teams Mend Worker Relationship Specialty Start Date End Date Martin Kelley MD PCP - General Internal Medicine 02/16/12 08/14/17 documented as of this encounter
--- OUTSIDE RECORDS SUMMARY | 2024-10-24 06:40 | XMS_ITS | Encounter Summary ---
Author Organization [facility] Address , [place] Care Team Providers Care Aircraft Fuselage Framer Name Role Phone Jasiel Freeman MD Primary Care Provider Encounter Details Date Type Department Care Team (Late st Contact Info) Description 02/20/[address], [address] [place] [address] John Avina PHARMACIST Social History [...] Telephone Encounter - John Avina PHARMACIST - 02/20/2018 4:54 PM CDT [facility] Specialty & Home [facility] Care Plan Demographics Edgardo Elkins 47 y.o. / male Patient's address on file: [address] [place] [address] Patient's current location: Same as above Patient Contact Information: Home Phone Work Phone [phone] Insurance Information: [employer] Choice POS II Home Infusion Care Team IV Pharmacy: [facility] / [phone] Nursing: [facility] Physician(s): Dr. Lane Ryan IV access PIV placed by RN prior to each infusion Progress Note Patient admitted to [facility] services upon referral from physician. Patient to receive Entyvio at home every 8 weeks for ulcerative colitis. Edgardo is due for his next infusion this week. Pharmacist contacted [facility]IVER [facility]ITION GU[facility] Ebony to coordinate delivery. Will send medication to R[facility] EXPED[facility]IDE and she will bring with her. Additional [...] by intraveous injection see administration instructions Home RIVER EXPEDITION GUIDE to administer over 30 minutes every 8 [...] Pharmacy Assessment, Plan and Follow-Up Evaluation Date 02/20/2018 Condition / Problem Ulcerative colitis Goal(s) Maintain remission of ulcerative colitis and prevent future flares Minimal side effects related to infusion Intervention(s) Entyvio Monitoring Patient progress; MD assessment Status Ongoing Date 02/20/2018 Condition/ Problem Patient/Caregiver education (potential problem) Goal Patient/Caregiver will understand: Purpose of medication Method of administration Risk associated with therapy Proper storage of medication and supplies Proper disposal of medication and supplies Intervention(s) RN and pharmacist will provide routine and repeated instruction Written materials provided. Status Ongoing Date 02/20/2018 Condition / Problem IV access (potential problem) [...] and reviewed by FADI Ulloa [facility] Specialty & Home Infusion [address] , [address] [place] [address] documented in this encounter Plan of Treatment Upcoming Encounters Date Type Department Care Team (Late st Contact Info) Description 02/13/2025 10:30 AM CDT Office Visit [facility] IBD and Gastroenterology Center [place] [address] [facility] [address] [place] [address] Kitty Dover, MIRTA [address] [place] [address] [place] [address] documented as of this encounter Visit Diagnoses Not on filedocumented in this encounter Care Teams Aircraft Fuselage Framer Relationship Specialty Start Date End Date Jasiel Freeman MD [address] [place] [address] PCP - General Family Practice 08/15/17 documented as of this encounter
--- OUTSIDE RECORDS SUMMARY | 2024-10-24 06:40 | XMS_ITS | Encounter Summary ---
Author Organization [facility] Address [address] [place] [address] Care Team Providers Care Clinical Support Nurse Name Role Phone Jasiel Freeman MD Primary Care Provider Reason for Visit * Reason Onset Date Comments Medication Problem 11/09/2017 Encounter Details Date Type Department Care Team (Late st Contact Info) Description 11/09/2017 Telephone [facility] GASTROENTEROLOGY [address] [facility] [address] [place] [address] Lane Ryan MD NO ADDRESS [...] UC. Peer to peer review--Dr Mclaughlin in [place] refuses to respond. Will try to get vedoluzimab approved jf TENANCE SHOP MANAGER documented in this encounter Plan of Treatment Upcoming Encounters Date Type Department Care Team (Late st Contact Info) Description 02/13/2025 10:30 AM CDT Office Visit [facility] IBD and Gastroenterology Center [place] [address] [place] [address] Kitty Dover, ANP [address] [place] [address] [place] [address] documented as of this encounter Visit Diagnoses Not on filedocumented in this encounter Care Teams Clinical Support Nurse Relationship Specialty Start Date End Date Jasiel Freeman MD [address] [place] [phone] PCP - General Family Practice 08/15/17 documented as of this encounter
--- OUTSIDE RECORDS SUMMARY | 2024-10-24 06:40 | XMS_ITS | Encounter Summary ---
Author Organization [facility] Address [address] [place] [address] Care Team Providers Care Electrical Installer Name Role Phone Jasiel Freeman MD Primary Care Provider Reason for Visit * Reason Onset Date Comments Marielena denerin 10/30/2017 Entyvio 10/30/2017 Encounter Details Date Type Department Care Team (Late st Contact Info) Description 10/30/2017 Telephone [facility] Gastroenterology [place] [address] [facility] [address] [place] [address] Lane Ryan MD NO ADDRESS [...] him on Entyvio. I have placed orders. CHAR OPERATOR * Telephone Encounter - Kadie Nye - 10/31/2017 12:26 PM CST Left message for physician to call Dr. Ryan's cell. CHAR OPERATOR * Telephone Encounter - Kadie Nye - 10/30/2017 10:51 AM CST Liyah has been denied. You could do peer to peer with Dr. Nathan Mclaughlin at [phone] or [phone]. Sorry, correct numbers are [phone] or [phone]. CHAR OPERATOR documented in this encounter Plan of Treatment Upcoming Encounters Date Type Department Care Team (Late st Contact Info) Description 02/13/2025 10:30 AM CDT Office Visit [facility] IBD and Gastroenterology Center [place] [address] [place] [address] Kitty Dover ANP [address] [place] [address] documented as of this encounter Visit Diagnoses Not on filedocumented in this encounter Care Teams Electrical Installer Relationship Specialty Start Date End Date Jasiel Freeman MD [address] [place] [phone] PCP - General Family Practice 08/15/17 documented as of this encounter
--- OUTSIDE RECORDS SUMMARY | 2024-10-24 06:40 | XMS_ITS | Encounter Summary ---
Author Organization [facility] Address [address] [place] [address] Care Team Providers Care Qc Analyst Name Role Phone Martin Kelley MD Primary Care Provider [phone] Reason for Visit * Reason Onset Date Comments Medication Question 06/02/2017 Encounter Details Date Type Department Care Team (Late st Contact Info) Description 06/02/2017 Telephone [facility] GASTROENTEROLOGY [address] [facility] [address] [place] [address] Lane Ryan MD NO ADDRESS [...] Pt would like todiscuss this with you. [phone] documented in this encounter Plan of Treatment Upcoming Encounters Date Type Department Care Team (Late st Contact Info) Description 02/13/2025 10:30 AM CDT Office Visit [facility] IBD and Gastroenterology Center [place] [address] [place] [address] Kitty Dover, [facility] [address] [place] [address] [place] [address] documented as of this encounter Visit Diagnoses Not on filedocumented in this encounter Care Teams Qc Analyst Relationship Specialty Start Date End Date Martin Kelley MD PCP - General Internal Medicine 02/16/12 08/14/17 documented as of this encounter
--- OUTSIDE RECORDS SUMMARY | 2024-10-24 06:40 | XMS_ITS | Encounter Summary ---
Author Organization [facility] Address [address] [place] [address] Care Team Providers Care Career Law Clerk Name Role Phone Martin Kelley MD Primary Care Provider [phone] Reason for Visit * Reason Onset Date Comments Colonoscopy 06/02/2017 Encounter Details Date Type Department Care Team (Late st Contact Info) Description 06/02/2017 Telephone [facility] GASTROENTEROLOGY [address] [facility] [address] [place] [address] Lane Ryan MD NO [...] colonoscopy 08/24/17 @ 12:30 e-mail prep to [employer] documented in this encounter Plan of Treatment Upcoming Encounters Date Type Department Care Team (Late st Contact Info) Description 02/13/2025 10:30 AM CDT Office Visit [facility] IBD and Gastroenterology Center [place] [address] [place] [address] Kitty Dover, [facility] [address] [place] [address] [place] [address] documented as of this encounter Visit Diagnoses Not on filedocumented in this encounter Care Teams Career Law Clerk Relationship Specialty Start Date End Date Martin Kelley MD PCP - General Internal Medicine 02/16/12 08/14/17 documented as of this encounter
--- OUTSIDE RECORDS SUMMARY | 2024-10-24 06:40 | XMS_ITS | Encounter Summary ---
Author Organization [facility] Address [address] [place] [address] Care Team Providers Care Clinical Assessment Manager Name Role Phone Martin Kelley MD Primary Care Provider [phone] Reason for Visit * Reason Comments Medication Refill Encounter Details Date Type Department Care Team (Late st Contact Info) Description 02/16/2017 Refill [facility] GASTROENTEROLOGY [address] [facility] [address] [place] [address] Lane Ryan MD NO ADDRESS [...] [facility] G[facility] [place] [address] [place] [address] Kitty Dover, ANP [address] [place] [address] documented as of this encounter Visit Diagnoses Not on filedocumented in this encounter Care Teams Clinical Assessment Manager Relationship Specialty Start Date End Date Martin Kelley MD PCP - General Internal Medicine 02/16/12 08/14/17 documented as of this encounter
--- OUTSIDE RECORDS SUMMARY | 2024-10-24 06:40 | XMS_ITS | Encounter Summary ---
Author Organization [facility] Address [address] [place] [address] Care Team Providers Care Pocket Builder Name Role Phone Martin Kelley MD Primary Care Provider [phone] Reason for Visit * Reason Onset Date Comments Abdominal Pain 08/02/2016 Encounter Details Date Type Department Care Team (Late st Contact Info) Description 08/02/2016 Telephone [facility] GASTROENTEROLOGY [address] [facility] [address] [place] [address] Lane Ryan MD NO ADDRESS [...] persist advised to come in for proctoscopy. 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
--- OUTSIDE RECORDS SUMMARY | 2024-10-24 06:40 | XMS_ITS | Encounter Summary ---
Author Organization [facility] Address [address] [place] [address] Care Team Providers Care Flavoring Oil Filterer Name Role Phone Jasiel Freeman MD Primary Care Provider [phone] Reason for Visit * Tx/Med Therapy Plan Auth (Routine) - Closed Specialty Diagnoses / Procedures Referred By Contac t Referred To Contact Oncology Diagnoses Ulcerative colitis, unspecified Procedures INFUSION THERAPY MO INJECTION, VEDOLIZUMAB CROHN'S / COLITIS - Lane Conklin MD NO ADDRESS ON FILE [facility] Infusion [place] 2nd Floor [address] [place] [address] Referral ID Status Reason Start Date Expiration Date Visits Re quested Visits Authorized [id number] Closed 11/15/2017 05/15/2018 99 99 Encounter Details Date Type Department Care Team (Latest Contact Info) Description 11/29/2017 9:58 AM DRAFTER AUTOMOTIVE DESIGN LAYOUT - 11/29/2017 11:59 PM DRAFTER AUTOMOTIVE DESIGN LAYOUT Hospital Encounter [facility] Infusion Center 2nd Fl [address] [place] [address] Lane Ryan MD NO ADDRESS [...] Comments Blood Pressure 137/83 11/29/2017 10:03 AM DRAFTER AUTOMOTIVE DESIGN LAYOUT Pulse 93 11/29/2017 10:03 AM DRAFTER AUTOMOTIVE DESIGN LAYOUT Temperature 36.9 ??C (98.4 ??F) 11/29/2017 10:[address] Respiratory Rate 16 11/29/2017 10:03 AM DRAFTER AUTOMOTIVE DESIGN LAYOUT Oxygen Saturation - - Inhaled Oxygen Concentration [...] Verbalized understanding. Pt discharged ambulatory with cg. TER AUTOMOTIVE DESIGN LAYOUT documented in this encounter Plan of Treatment Upcoming Encounters Date Type Department Care Team (Late st Contact Info) Description 02/13/2025 10:30 AM CDT Office Visit [facility] IBD and Gastroenterology Center [place] [address] [place] [address] Kitty Dover ANP [address] [place] [address] documented [...] Hours, Routine New Bag 11/29/2017 10:25 AM DRAFTER AUTOMOTIVE DESIGN LAYOUT 250 mL 50 mL/hr vedolizumab (ENTYVIO) 300 mg in sodium chloride 0.9% 250 mL IVPB 300 mg, IV, ONE TIME ONLY, 1 dose, On Mon11/29/17 at 1045, Routine New Bag 11/29/2017 11:06 AM DRAFTER AUTOMOTIVE DESIGN LAYOUT 300 mg 510 mL/hr documented in this encounter Care Teams Flavoring Oil Filterer Relationship Specialty Start Date End Date Jasiel Freeman MD [address] [place] [phone] PCP - General Family Practice 08/15/17 documented as of this encounter
--- OUTSIDE RECORDS SUMMARY | 2024-10-24 06:40 | XMS_ITS | Encounter Summary ---
Author Organization [facility] Address [address] [place] [address] Care Team Providers Care Sealing Machine Operator Name Role Phone Jasiel Freeman MD Primary Care Provider Encounter Details Date Type Department Care Team (Late st Contact Info) Description 10/24/2017 Abstract [facility] GASTROENTEROLOGY [address]A [address] [facility] [address] [place] [address] Lane Ryan MD NO ADDRESS [...] [facility] IBD and Gastroenterology Center [place] [address] [place] [address] Kitty Dover, MIRTA [address] [place] [address] documented as of this encounter Visit Diagnoses Not on filedocumented in this encounter Care Teams Sealing Machine Operator Relationship Specialty Start Date End Date Jasiel Freeman MD [address] [place] [address] PCP - General Family Practice 08/15/17 documented as of this encounter
--- OUTSIDE RECORDS SUMMARY | 2024-10-24 06:40 | XMS_ITS | Encounter Summary ---
Author Organization [facility] Address [address] [place] [address] Care Team Providers Care Title Vehicle Service Attendant Name Role Phone Jasiel Freeman MD Primary Care Provider Encounter Details Date Type Department Care Team (Late st Contact Info) Description 11/01/2017 Abstract [facility] GASTROENTEROLOGY [address]A [address] [facility] [address] [place] [address] Lane Ryan MD NO ADDRESS [...] [facility] [place] [address] [place] [address] Kitty Dover, MIRTA [address] [place] [address] documented as of this encounter Visit Diagnoses Not on filedocumented in this encounter Care Teams Title Vehicle Service Attendant Relationship Specialty Start Date End Date Jasiel Freeman MD [address] [place] [address] PCP - General Family Practice 08/15/17 documented as of this encounter
--- OUTSIDE RECORDS SUMMARY | 2024-10-24 06:40 | XMS_ITS | Encounter Summary ---
Author Organization [facility] Address [address] [place] [address] Care Team Providers Care Crew Member Name Role Phone Jasiel Freeman MD Primary Care Provider Reason for Visit * Reason Onset Date Comments Medical Records 08/25/2017 Encounter Details Date Type Department Care Team (Late st Contact Info) Description 08/25/2017 Telephone [facility] GASTR[facility]OLOG[facility] [address] [facility] [address] [place] [address] Lane Ryan MD NO ADDRESS [...] [facility] Gastro[facility] [place] [address] [place] [phone] Kitty Dover ANP [address] [place] [place] [address] documented as of this encounter Visit Diagnoses Not on filedocumented in this encounter Care Teams Crew Member Relationship Specialty Start Date End Date Jasiel Freeman MD [address] [place] [phone] PCP - General Family Practice 08/15/17 documented as of this encounter
--- OUTSIDE RECORDS SUMMARY | 2024-10-24 06:40 | XMS_ITS | Encounter Summary ---
Author Organization [facility] Address [address] [place] [address] Care Team Providers Care Moving Consultant Name Role Phone Jasiel Freeman MD Primary Care Provider [phone] Reason for Visit * Reason Onset Date Comments Insurance Issues 10/20/2017 Encounter Details Date Type Department Care Team (Late st Contact Info) Description 10/20/2017 Telephone [facility] [address] [place] [address] Thanh Solares, PHARMACIST Insurance Issues [...] Thanh Solares, PHARMACIST - 10/20/2017 8:38 AM CARE AIDE [facility] [place] Progress Note Our office received a denial for the authorization request for the medication Stelara. A copy of the denial letter was sent to Dr Ryan for his review. [facility] [id number] [place] [address], [address] [place] [address] AIDE documented in this encounter Plan of Treatment Upcoming Encounters Date Type Department Care Team (Late st Contact Info) Description 02/13/2025 10:30 AM CDT Office Visit [facility] Gastro[facility]ology [facility] [place] [address] [place] [address] Kitty Dover ANP [address] [place] [address] documented as of this encounter Visit Diagnoses Not on filedocumented in this encounter Care Teams Moving Consultant Relationship Specialty Start Date End Date Jasiel Freeman MD [address] [place] [phone] PCP - General Family Practice 08/15/17 documented as of this encounter
--- OUTSIDE RECORDS SUMMARY | 2024-10-24 06:40 | XMS_ITS | Encounter Summary ---
Author Organization [facility] Address [address] [place] [address] Care Team Providers Care Leather Goods Maker Name Role Phone Jasiel Freeman MD Primary Care Provider Encounter Details Date Type Department Care Team (Late st Contact Info) Description 10/05/2017 Abstract [facility] GASTROENTEROLOGY [address] [place] [address] Lane Ryan MD NO ADDRESS [...] [facility] Gastro[facility]ology [facility] [place] [address] [place] [address] Kitty Dover, MIRTA [address] [place] [address] documented as of this encounter Visit Diagnoses Not on filedocumented in this encounter Care Teams Leather Goods Maker Relationship Specialty Start Date End Date Jasiel Freeman MD [address] [place] [address] PCP - General Family Practice 08/15/17 documented as of this encounter
--- OUTSIDE RECORDS SUMMARY | 2024-10-24 06:40 | XMS_ITS | Encounter Summary ---
Author Organization [facility] Address [address] [place] [address] Care Team Providers Care Linux Solaris Administrator Name Role Phone Jasiel Freeman MD Primary Care Provider [phone] Encounter Details Date Type Department Care Team (Latest Contact Info) Description 10/05/2017 10:18 AM GARAGE CONSTRUCTION EQUIPMENT MECHANIC - 10/05/2017 11:59 PM [facility] Hospital Encounter [facility] Laboratory Services Medical [place] A [address] [facility], [place] [address] Lane Ryan MD NO ADDRESS [...] [facility] G[facility] [place] [address] [place] [address] Kitty Dover ANP [address] [place] [address] [place] [address] documented as of this encounter Procedures Procedure Name Priority Date/Time Associated Diagnosis Comments QUANTIFERON TB GOLD Routine 10/05/2017 1 0:19 AM GARAGE CONSTRUCTION EQUIPMENT MECHANIC Inflammatory bowel disease HEPATITIS B SURFACE ANTIGEN Routine 10/05/2017 10:19 AM GARAGE CONSTRUCTION EQUIPMENT MECHANIC Inflammatory bowel disease CBC WITH DIFFERENTIAL Routine 10/05/2017 10:19 AM GARAGE CONSTRUCTION EQUIPMENT MECHANIC Inflammatory bowel disease C-REACTIVE PROTEIN Routine 10/05/2017 10 :19 AM GARAGE CONSTRUCTION EQUIPMENT MECHANIC Inflammatory bowel disease COMPREHENSIVE METABOLIC PANEL Routine 10/05/2017 10:19 AM GARAGE CONSTRUCTION EQUIPMENT MECHANIC Inflammatory bowel disease documented in this encounter Results * HEPATITIS B SURFACE ANTIGEN (10/05/2017 10:19 AM GARAGE CONSTRUCTION EQUIPMENT MECHANIC) HEPATITIS B SURFACE AG NON-REACTI VE Non-reacti ve 10/05/2017 12:30 PM GARAGE CONSTRUCTION EQUIPMENT MECHANIC [facility]ORATORY [facility] Blood Venipuncture / Unknown 10/05/2017 10:19 AM GARAGE CONSTRUCTION EQUIPMENT MECHANIC 10/05/2017 10:30 AM GARAGE CONSTRUCTION EQUIPMENT MECHANIC Lane Ryan MD CHEMISTRY ORDERABLES [facility] [employer] [facility] CLIA# [id number] [address] [place] [address] * QUANTIFERON TB GOLD (10/05/2017 10:19 AM GARAGE CONSTRUCTION EQUIPMENT MECHANIC) Pathologist [facility] QUANTIFERON(R)-TB GOLD Negative Negative 10/09/2017 12:57 PM GARAGE CONSTRUCTION EQUIPMENT MECHANIC [facility] [employer]5 [facility] Comment: No interferon-gamma response to M. tuberculosis antigens was detected. Infection with M. tuberculosis is unlikely. A negative result alone does not exclude infection with M. tuberculosis. For detailed information regarding test interpretation see: www.[employer]/test-catalog/ Clinical+and+Interpretive/06829 QuantiFERON TB Ag Value 0.00 IU/mL 10/09/2017 12:57 PM [facility] Credible [facility] MITOGEN-NIL >10.00 IU/mL 10/09/2017 12:57 PM [facility] NIL 0.04 IU/mL 10/09/2017 12:57 PM [facility] Comment: Test Performed by: [facility] [address] [place] [address] Blood Venipuncture / Unknown 10/05/2017 10:19 AM GARAGE CONSTRUCTION EQUIPMENT MECHANIC 10/05/2017 10:30 AM GARAGE CONSTRUCTION EQUIPMENT MECHANIC Lane Ryan MD CHEMISTRY ORDERABLES [facility] [employer] [facility] * (ABNORMAL) COMPREHENSIVE METABOLIC PANEL (10/05/2017 10:19 AM GARAGE CONSTRUCTION EQUIPMENT MECHANIC) SODIUM 141 136 - 145 mmol/L 10/05/2017 11:32 AM [facility] [employer] [facility] POTASSIUM 5.0 3.5 - 5.0 mmol/L 10/05/2017 11:32 AM [facility] [employer] [facility] CHLORIDE 103 98 - 107 mmol/L 10/05/2017 11:32 AM [facility] [employer] [facility] CO2 26 22 - 29 mmol/L 10/05/2017 11:32 AM [facility] CALCIUM 9.5 8.6 - 10.2 mg/dL 10/05/2017 11:32 AM [facility] BUN 14 6 - 20 mg/dL 10/05/2017 11:32 AM [facility] CREATININE 1.49(H) 0.67 - 1.17 mg/dL 10/05/2017 11:32 AM [facility] GLUCOSE 80 74 - 99 mg/dL 10/05/2017 11:32 AM [facility] TOTAL PROTEIN 7.0 6.7 - 8.6 g/dL 10/05/2017 11:32 AM [facility] ALBUMIN 3.9 3.5 - 5.2 g/dL 10/05/2017 11:32 AM [facility] BILIRUBIN TOTAL 0.3 0.3 - 1.2 mg/dL 10/05/2017 11:32 AM [facility] ALKALINE PHOSPHATASE 64 40 - 129 U/L 10/05/2017 11:32 AM [facility] AST 25 <41 U/L 10/05/2017 11:32 AM [facility] ALT 19 <42 U/L 10/05/2017 11:32 AM [facility] GFR 51(L) >=60 mL/min/1.7 3 sq meter 10/05/2017 11:32 AM [facility] Comment: eGFR [...] mL/min/1.7 3 sq meter 10/05/2017 11:32 AM [facility] ANION GAP 12 8 - 16 mmol/L 10/05/2017 11:32 AM [facility] [employer] [facility] Blood Venipuncture / Unknown 10/05/2017 10:19 AM GARAGE CONSTRUCTION EQUIPMENT MECHANIC 10/05/2017 10:30 AM GARAGE CONSTRUCTION EQUIPMENT MECHANIC Narrative [facility] - 10/05/2017 11:32 AM GARAGE CONSTRUCTION EQUIPMENT MECHANIC Samples containing indocyanine green cause interferences on Total and/or Direct Bilirubin and must not be measured. Lane Ryan MD CHEMISTRY ORDERABLES [facility] CLIA# [id number] [address] [place] [address] * C-REACTIVE PROTEIN (10/05/2017 10:19 AM GARAGE CONSTRUCTION EQUIPMENT MECHANIC) Pathologist [facility] CRP 3.2 <5.0 mg/L 10/05/2017 11:30 AM [facility] [employer] [facility] Blood Venipuncture / Unknown 10/05/2017 10:19 AM GARAGE CONSTRUCTION EQUIPMENT MECHANIC 10/05/2017 10:30 AM GARAGE CONSTRUCTION EQUIPMENT MECHANIC Lane Ryan MD CHEMISTRY ORDERABLES Performing Organization Address City/[facility]/ZIP Co de Phone Number [facility] CLIA# [id number] [address] [place] [address] * (ABNORMAL) CBC WITH DIFFERENTIAL (10/05/2017 10:19 AM GARAGE CONSTRUCTION EQUIPMENT MECHANIC) WBC 5.6 4.0 - 9.8 K/uL 10/05/2017 10:55 AM [facility] [employer] [facility] RBC 6.32(H) 4.50 - 5.40 M/uL 10/05/2017 10:55 AM [facility] [employer] [facility] HEMOGLOBIN 17.2(H) 13.6 - 16.5 g/dL 10/05/2017 10:55 AM [facility] [employer] [facility] HEMATOCRIT 54.7(H) 40.0 - 48.0 % 10/05/2017 10:55 AM [facility] MCV 86.6 82.0 - 99.0 fL 10/05/2017 10:55 AM [facility] MCH 27.2 27.2 - 32.6 pg 10/05/2017 10:55 AM [facility] MCHC 31.4(L) 31.5 - 35.5 g/dL 10/05/2017 10:55 AM [facility] RDW 13.2 11.5 - 14.5 % 10/05/2017 10:55 AM [facility] RDW-STDEV 41.2 37.1 - 48.7 fL 10/05/2017 10:55 AM [facility] PLATELETS 304 140 - 350 K/uL 10/05/2017 10:55 AM [facility] MPV 10.3 9.3 - 12.4 fL 10/05/2017 10:55 AM [facility] NEUTROPHILS 67 % 10/05/2017 10:55 AM [facility] LYMPHOCYTES 18 % 10/05/2017 10:55 AM [facility] MONOCYTES 12 % 10/05/2017 10:55 AM [facility] EOSINOPHILS 2 % 10/05/2017 10:55 AM [facility] BASOPHILS 1 % 10/05/2017 10:55 AM [facility] IMMATURE GRANULOCYTES 1 % 10/05/2017 10:55 AM [facility] Comment:IG (Immature Granulo cyte) count includes Metamyelocytes, Myelocytes, and Promyelocytes NEUTROPHIL ABSOLUTE 3.74 1.90 - 7.00 K/uL 10/05/2017 10:55 AM [facility] LYMPHOCYTE ABSOLUTE 1.01 0.70 - 4.50 K/uL 10/05/2017 10:55 AM [facility] MONOCYTE ABSOLUTE 0.66 0.10 - 1.30 K/uL 10/05/2017 10:55 AM [facility] EOSINOPHIL ABSOLUTE 0.12 0.00 - 0.70 K/uL 10/05/2017 10:55 AM [facility] BASOPHILS ABSOLUTE 0.04 0.00 - 0.20 K/uL 10/05/2017 10:55 AM GARAGE CONSTRUCTION EQUIPMENT MECHANIC [facility] SERVICES - [facility] IMMATURE GRANULOCYTES ABSOLUTE 0.03 0.00 - 0.03 K/uL 10/05/2017 10:55 AM GARAGE CONSTRUCTION EQUIPMENT MECHANIC [facility]ORY [facility] Blood Venipuncture / Unknown 10/05/2017 10:19 AM GARAGE CONSTRUCTION EQUIPMENT MECHANIC 10/05/2017 10:42 AM GARAGE CONSTRUCTION EQUIPMENT MECHANIC Lane Ryan MD HEMATOLOGY ORDERABLE S [facility] CLIA# [id number] [address] [facility] [place] [address] documented in this encounter Visit Diagnoses Diagnosis Inflammatory bowel disease Other and unspecified noninfectious gastroenteritis and colitis documented in this encounter Care Teams Linux Solaris Administrator Relationship Specialty Start Date End Date Jasiel Freeman MD [address] [place] [address] PCP - General Family Practice 08/15/17 documented as of this encounter
--- OUTSIDE RECORDS SUMMARY | 2024-10-24 06:40 | XMS_ITS | Encounter Summary ---
Author Organization [facility] [place] , [place] Care Team Providers Care Intelligence Research Specialist Name Role Phone Jasiel Freeman MD Primary Care Provider Encounter Details Date Type Department Care Team (Late st Contact Info) Description 12/28/2017 Home Visit [address], [address] [place] [address] Ebony Cruz RN Social History [...] the original note were not included. [facility] [address] [facility] [employer] [address] [place] [address] Leonidas Edgardo Palomino Brittni [address] [place] [address] 12/28/2017 Provider - Ebony Luesse, RN Driving [...] by intraveous injection see administration instructions Home HEALTH PROGRAM ANALYST to administer over 30 minutes every [...] observed with learning needs - No cultural, taoist, or language barriers to learning Patient and [...] 11/29/17 16 11/15/17 16 08/24/17 16 1. FPC assessment and implementation of [...] Patient knows how to reorder medications. [facility] will [...] approximately 8 weeks 02/27/18 for Entyvio infusion SHAKER documented in this encounter Plan of Treatment Upcoming Encounters Date Type Department Care Team (Late st Contact Info) Description 02/13/2025 10:30 AM CDT Office Visit [facility] IBD and Gastroenterology Center [place] [address] [facility] [address] [place] [address] Kitty Dover ANP [address] [place] [address] [place] [phone] documented as of this encounter Visit Diagnoses Not on filedocumented in this encounter Care Teams Intelligence Research Specialist Relationship Specialty Start Date End Date Jasiel Freeman MD [address] [place] [phone] PCP - General Family Practice 08/15/17 documented as of this encounter
--- OUTSIDE RECORDS SUMMARY | 2024-10-24 06:40 | XMS_ITS | Encounter Summary ---
Author Organization [facility] Address [address] [place] [address] Care Team Providers Care Pattern Developer Name Role Phone Jasiel Freeman MD Primary Care Provider [phone] Reason for Visit * Auth/Cert Specialty Diagnoses / Procedures Referred By Lambert pizarro Referred To Contact Gastroenterology Diagnoses UC (ulcerative colitis) UC (ulcerative colitis) [K51.90] Procedures COLONOSCOPY [facility] [address] [place] [address] Referral ID Status Reason Start Date Expiration Date Visits Re quested Visits Authorized [id number] 1 1 Encounter Details Date Type Department Care Team (Latest Contact Info) Description 08/24/2017 11:33 AM CDT - 08/24/2017 2:11 PM T [facility] [place] [address] [place] [address] Lane Ryan MD NO ADDRESS [...] Laterality Date ??? HX COLECTOMY 2001 ??? CT COLONOSCOPY FLX DX W/COLLJ SPEC WHEN PFRMD 12/08/2009 COLONOSCOPY performed by LOUISE RIZO at [facility] ??? CT COLONOSCOPY FLX DX W/COLLJ SPEC WHEN PFRMD 06/09/[address] Ryan MD at [facility] GI [facility] ??? CT DILATION RECTAL STRICTURE W ANEST 06/12/2012 RECTAL STRICTURE DILATATION performed by Lane Ryan MD at [facility] GI [facility] ??? CT ENDOSCOPY UPPER SMALL INTESTINE 06/12/2012 SMALL BOWEL ENTEROSCOPY performed by Lane Ryan MD at [facility] GI [facility] ??? CT ENDOSCOPY UPPER SMALL INTESTINE W/BIOPSY 02/28/2012 BOWEL SMALL BIOPSY ENDOSCOPIC performed by Lane Ryan MD at [facility] GI LAB ??? CT ESOPHAGOGASTRODUODENOSCOPY TRANSORAL DIAGNOSTIC 02/28/2012 [address] performed by Lane Ryan MD at [facility] GI [facility] ??? CT NDSC EVAL INTSTINAL POUCH DX W/COLLJ SPEC SPX 02/16/2012 POUCHOSCOPY performed by Louise Rizo MD at [facility] GI [facility] ??? CT SIGMOIDOSCOPY FLX DX W/COLLJ SPEC BR/WA IF PFRMD 02/16/2012 SIGMOIDOSCOPY FLEXIBLE performed by Louise Rizo MD at [facility] GI LAB No prescriptions prior to admission. [...] 08/24/2017 9:05 PM CDTAssociated Order(s): GI REPORT [place], [place] [address] Gastroenterology CSN: [id number] DATE OF SERVICE: ENDOSCOPY REPORT DATE OF [...] Humira antibodies for further evaluation. ZANEF:MEDQ DID: [id number] Dictated by: Lane Ryan MD * Lane Ryan MD - 08/24/2017 1:20 PM CDTAssociated Order(s): GI REPORT [facility] Endoscopy Patient Name: Edgardo Elkins Procedure Date: 08/24/2017 Date of : 1970 Admit Type: Outpatient Attending MD: Lane Ryan MD Procedure: Images Only-Procedure Report in [facility] Providers: Lane Ryan MD Referring MD: Jasiel Freeman MD Submitted Lane Ryan MD Number of Addenda: [address]; [place] [address] documented in this encounter Plan of Treatment Upcoming Encounters Date Type Department Care Team (Late st Contact Info) Description 02/13/2025 10:30 AM CDT Office Visit [facility] IBD and Gastroenterology Center [place] [address] [facility] [address] [place] [address] Kitty Dover ANP [address] [place] [address] documented as of this [...] Ryan MD - 08/24/2017 9:05 PM CDT [place], [place] [address] Gastroenterology CSN: [id number] DATE OF SERVICE: ENDOSCOPY REPORT DATE OF [...] get Humira antibodies for further evaluation. JSF:MEDQ DID:[id number] Dictated by: Lane Ryan MD Transcriptions Lane Ryan MD - 08/24/2017 1:20 PM CDT [facility] [place] [facility] Endoscopy Patient Name: Edgardo Elkins Procedure Date: 08/24/2017 Date of : 1970 Admit Type: Outpatient Attending MD: Lane Ryan MD Procedure: Images Only-Procedure Report in [facility] Providers: Lane Ryan MD Referring MD: Jasiel Freeman MD Submitted Lane Ryan MD Number of Addenda: [phone] ; [place] [address] Lane Ryan MD GI PROCEDURE [facility]AB [facility] * ADALIMUMAB CONCENTRATION AND AB (08/24/2017 2:00 PM CDT) ADALIMUMAB LEVEL AND AB See Scanned Report 08/29/2017 10:29 AM PARTS DESIGNER TIN Blood Venipuncture / Unknown 08/24/2017 2:00 PM CDT 08/24/2017 2:[address] Ryan MD CHEMISTRY ORDERABLES Performing Organization Address City/[facility]/ZIP Co de Phone Number [facility] [address] [place] [address] * PATHOLOGY (08/24/2017 1:05 PM CDT) CASE REPORT Surgical Pathology Report ? Case: [id number] ? Authorizing Provider: ??Lane Ryan MD ?Collected: ? 08/24/2017 01:05 PM ? Ordering Location: ? [facility] [address] [place] ??Received: ?08/24/2017 02:43 PM ? Pathologist: ? Usha He MD ? Specimens: ?? A) - Small Intestine, small intestine bx ? B) - Small Intestine, anastimosis bx ? C) - Small Intestine, perianal pouch ? 08/25/2017 3:36 PM T [place] [employer] Communication - [facility] FINAL DIAGNOSIS Small intestine, not further specified, biopsy: - Active enteritis with ulceration. - No granulomas or dysplasia. Small intestine, anastomosis, biopsy: - Active enteritis. - Fragments of ulcer. - No granulomas or dysplasia. Small intestine, perianal pouch, biopsy: - Active enteritis with focal ulceration. - No granulomas or dysplasia. 08/25/2017 3:36 PM T [place] [employer]iel[employer] Communication [facility] IMEN DESCRIPTION (A) Small intestine small bowel IBD; (B) small intestine anastomosis IBD; (C) small bowel perianal patch IBD. 08/25/2017 3:36 PM [facility] OPERATIVE PROCEDURE Small bowel enteroscopy. 08/25/2017 3:36 PM [facility] CLINICAL DIAGNOSIS Ulcerative colitis. ICD Code K51.9. 08/25/2017 3:36 PM COUNTS INCLUDE 234 BEDS AT THE [facility] DESCRIPTION Received are three containers [...] in cassette C1. BBK/cgk 08/25/2017 3:36 PM [facility] MICROSCOPIC DESCRIPTION The slides labeled [id number] and Edgardo Elkins. The first small intestinal [...] Case Review Conference. 08/25/2017 3:36 PM CDT [facility] COMMENT Special stain and/or immunohistochemical results are interpreted with controls that demonstrate appropriate staining reactions. Note on use of immunocytochemistry reagents: This test was developed and its performance characteristic determined by [facility], Department of Laboratory Medicine. It has not [...] WF, WB and WH are performed by [address], [address]. All other case types are performed by [place] [address] [facility] [address]. 08/25/2017 3:36 PM CDT [facility] Tissue (Small Intestine) 08/24/2017 1:05 PM CDT 08/24/2017 2:43 PM CDT Comment:IBD Tissue specimen (specimen) (Small Intestine) 08/24/2017 1:05 PM CDT 08/24/2017 2:43 PM CDT Comment:IBD Tissue specimen (specimen) (Small Intestine) 08/24/2017 1:05 PM CDT 08/24/2017 2:43 PM CDT Comment:IBD Lane Ryan MD PATHOLOGY/CYTOLOGY O RDERABLES [facility] CLIA# [id number] [address] [place] [address] [place] [address] * CLOSTRIDIUM DIFFICILE DETECTION (08/24/2017 1:04 PM CDT) TOXIGENIC C DIFFICILE Not Detected Not Detected 08/24/2017 4:50 PM CDT [facility] Stool STOOL SPECIMEN / Unknown Collection / Unknown 08/24/2017 1:04 PM CDT 08/24/2017 2:30 PM CDT Narrative [facility] - 08/24/2017 4:50 PM CDT This assay is used to detect Toxigenic Clostridium difficile target(B gene) DNA sequences in unformed stool specimens. ??If toxigenic C. difficile is not detected, but clinical suspicion is high please consult ID for consultation and potential repeat testing. ??This test should not be used as a test of cure. Lane Ryan MD MICROBIOLOGY - GENER AL ORDERABLES [facility] SERVICES [facility]# [id number] [address] [place] [place] [address] documented in this encounter Visit Diagnoses Diagnosis [...] CRNA) documented in this encounter Care Teams Pattern Developer Relationship Specialty Start Date End Date Jasiel Freeman MD [address] [place] [phone] PCP - General Family Practice 08/15/17 documented as of this encounter
--- OUTSIDE RECORDS SUMMARY | 2024-10-24 06:41 | XMS_ITS | Encounter Summary ---
Author Organization [facility] Address [address] [place] [address] Care Team Providers Care University Services Program Associate Name Role Phone Martin Kelley MD Primary Care Provider [phone] Reason for Visit * Reason Onset Date Comments Colonoscopy 05/20/2014 Encounter Details Date Type Department Care Team (Late st Contact Info) Description 05/20/2014 Telephone [facility] GASTROENTEROLOGY [address] [facility] [address] [place] [address] Lane Ryan MD NO ADDRESS [...] for 06/09/14 @ 2:30 e-mail prep to [email or web address] documented in this encounter Plan of Treatment Upcoming Encounters Date Type Department Care Team (Late st Contact Info) Description 02/13/2025 10:30 AM CDT [facility] [place] [address] [place] [address] Kitty Dover, ANP [address] [place] [address] [place] [address] documented as of this encounter Visit Diagnoses Not on filedocumented in this encounter Care Teams University Services Program Associate Relationship Specialty Start Date End Date Martin Kelley MD PCP - General Internal Medicine 02/16/12 08/14/17 documented as of this encounter
--- OUTSIDE RECORDS SUMMARY | 2024-10-24 06:41 | XMS_ITS | Encounter Summary ---
Author Organization [facility] Address [address] [place] [address] Care Team Providers Care Commercial Truck Driver Name Role Phone Martin Kelley MD Primary Care Provider [phone] Encounter Details Date Type Department Care Team (Latest Contact Info) Description 09/30/2015 Orders Only [facility] GASTROENTEROLOGY [address] [facility] [address] [address] [place] [address] Lane Ryan MD NO [...] 02/13/2025 10:30 AM CDT Office Visit [facility] IBD and Gastroenterology Center [place] [address] [place] [address] Kitty Dover, ANP [address] [facility] [address] [place] [address] documented as of this encounter Procedures Procedure Name Priority Date/Time Associated Diagnosis Comments QUANTIFERON TB GOLD Routine 10/07/2015 1 :38 PM WEB CONTENT COORDINATOR Ulcerative colitis without complications, unspecified ulcerative colitis documented in this encounter Results * QUANTIFERON TB GOLD (10/07/2015 1:38 PM WEB CONTENT COORDINATOR) QUANTIFERON(R)-T B GOLD NEGATIVE NEGATIVE [employer] [facility] Comment: Negative test result. M. tuberculosis complex infection unlikely. NIL 0.00 IU/mL [employer] [facility] MITOGEN-NIL 4.05 IU/mL [employer] [facility] TB-NIL 0.02 IU/mL [employer] [facility] Comment: The Nil tube value is used [...] IU/mL. For additional information, please refer to http://[email or web address]/faq/QFT (This link is being provided for informational/ educational purposes only.) REPORT COMMENT: FASTING:NO Test Performed at: [employer] [facility] [address] [place], [place] ??[address] SHARITA MELENDEZ DO,MPH Blood specimen (specimen) 10/07/2015 1:[address] Ryan MD CHEMISTRY ORDERABLES [employer] [facility] [address] [place] [address] documented in this encounter Visit Diagnoses Diagnosis Ulcerative colitis without complications, unspecified ulcerative colitis- Primary documented in this encounter Care Teams Commercial Truck Driver Relationship Specialty Start Date End Date Martin Kelley MD PCP - General Internal Medicine 02/16/12 08/14/17 documented as of this encounter
--- OUTSIDE RECORDS SUMMARY | 2024-10-24 06:41 | XMS_ITS | Encounter Summary ---
Author Organization [facility] Address [address] [place] [address] Care Team Providers Care Diabetes Education Coordinator Name Role Phone Martin Kelley MD Primary Care Provider [phone] Reason for Visit * Reason Onset Date Comments New Prescription Request 08/21/2012 Encounter Details Date Type Department Care Team (Late st Contact Info) Description 08/21/2012 Telephone [facility] GASTROENTEROLOGY [address] [facility] [address] [place] [address] Lane Ryan MD NO ADDRESS [...] [facility] [place] [address] [place] [address] Kitty Dover ANP [address] [place] [address] documented as of this encounter Visit Diagnoses Diagnosis IBD (inflammatory bowel disease)- Primary Other and unspecified noninfectious gastroenteritis and colitis documented in this encounter Care Teams Diabetes Education Coordinator Relationship Specialty Start Date End Date Martin Kelley MD PCP - General Internal Medicine 02/16/12 08/14/17 documented as of this encounter
--- OUTSIDE RECORDS SUMMARY | 2024-10-24 06:41 | XMS_ITS | Encounter Summary ---
Author Organization [facility] Address [address] [place] [address] Care Team Providers Care Linux Engineer Name Role Phone Martin Kelley MD Primary Care Provider [phone] Reason for Visit * Reason Onset Date Comments Medication Refill 07/30/2013 Encounter Details Date Type Department Care Team (Late st Contact Info) Description 07/30/2013 Refill [facility] GASTROENTEROLOGY [address] [facility] [address] [place] [address] Lane Ryan MD NO ADDRESS [...] & [facility] IBD and Gastroenterology Center [place] [address] [place] [address] Kitty Dover, ANP [address] [facility] [address] [place] [address] documented as of this encounter Visit Diagnoses Diagnosis IBD (inflammatory bowel disease)- Primary Other and unspecified noninfectious gastroenteritis and colitis documented in this encounter Care Teams Linux Engineer Relationship Specialty Start Date End Date Martin Kelley MD PCP - General Internal Medicine 02/16/12 08/14/17 documented as of this encounter
--- OUTSIDE RECORDS SUMMARY | 2024-10-24 06:41 | XMS_ITS | Encounter Summary ---
Author Organization [facility] Address [address] [place] [address] Care Team Providers Care Passport Application Examiner Name Role Phone Martin Kelley MD Primary Care Provider [phone] Reason for Visit * Reason Onset Date Comments Needs Form Or Letter Filled Out 06/10/2014 Labs Only 06/10/2014 Encounter Details Date Type Department Care Team (Late st Contact Info) Description 06/10/2014 Telephone [facility] GASTROENTEROLOGY [address] [facility] [address] [place] [address] Lane Ryan MD NO [...] He would like to go either to [facility] [place] or [facility]. I will mail form to pt. documented in this encounter Plan of Treatment Upcoming Encounters Date Type Department Care Team (Late st Contact Info) Description 02/13/2025 10:30 AM CDT Office Visit [facility] IBD and Gastroenterology Center [place] [address] [place] [address] Kitty Dover, MIRTA [address] [place] [address] documented as of this encounter Visit Diagnoses Not on filedocumented in this encounter Care Teams Passport Application Examiner Relationship Specialty Start Date End Date Martin Kelley MD PCP - General Internal Medicine 02/16/12 08/14/17 documented as of this encounter
--- OUTSIDE RECORDS SUMMARY | 2024-10-24 06:41 | XMS_ITS | Encounter Summary ---
Author Organization [facility] Address [address] [place] [address] Care Team Providers Care Carding Doubler Name Role Phone Martin Kelley MD Primary Care Provider [phone] Reason for Referral * Eval and Treat (Routine) - Closed Specialty Diagnoses / Procedures Referred By Contac t Referred To Contact Gastroenterology Diagnoses IBD (inflammatory bowel disease) Lane Ryan MD NO ADDRESS ON FILE Lane Ryan MD NO ADDRESS ON FILE Referral ID Status Reason Start Date Expiration Date Visits Requested Visits Authorized [id number] Closed Performing Department To Schedule (STL) 11/08/2012 11/08/2013 1 1 Y DRIVER OPERATOR Reason for Visit * Reason Comments Ulcerative Colitis Encounter Details Date Type Department Care Team (Latest Contact Info) Description 11/08/2012 10:00 AM ENTRY DRIVER OPERATOR Office Visit [facility] GASTROENTEROLOGY [address] [facility] [address] [place] [address] Lane Ryan MD NO ADDRESS [...] Comments Blood Pressure 118/84 11/08/2012 10:05 AM ENTRY DRIVER OPERATOR Pulse 92 11/08/2012 10:05 AM ENTRY DRIVER OPERATOR Temperature - - Respiratory Rate - - Oxygen Saturation - - Inhaled Oxygen Concentration - - Weight 87.3 kg (192 lb 6.4 oz) 11/08/2012 10:05 AM ENTRY DRIVER OPERATOR Height 175.3 cm (5' 9 ) 11/08/2012 10:05 AM ENTRY DRIVER OPERATOR Body Mass Index 28.41 11/08/2012 10:05 AM ENTRY DRIVER OPERATOR documented in this encounter Progress Notes * Lane Ryan MD - 11/08/2012 10:24 AM CST PROGRESS NOTE: Martin Zuleta ([facility]) Edgardo Palomino Brittni Date of 1970 HPI: [...] humira;; check lower endoscopy Lane Ryan MD Y DRIVER OPERATOR documented in this encounter Plan of Treatment Upcoming Encounters Date Type Department Care Team (Late st Contact Info) Description 02/13/2025 10:30 AM CDT Office Visit [facility] IBD and Gastroenterology Center [place] [address] [place] [address] Kitty Dover ANP [address] [place] [address] Scheduled Referrals Name Type Priority Associated Diagnoses Order Schedule AMB REFERRAL TO GASTROENTEROLOGY Outpatient Referral Routine IBD (inflammatory bowel disease) Ordered: 11/08/2012 documented as of this encounter Visit Diagnoses Diagnosis IBD (inflammatory bowel disease)- Primary Other and unspecified noninfectious gastroenteritis and colitis documented in this encounter Care Teams Carding Doubler Relationship Specialty Start Date End Date Martin Kelley MD PCP - General Internal Medicine 02/16/12 08/14/17 documented as of this encounter
--- OUTSIDE RECORDS SUMMARY | 2024-10-24 06:41 | XMS_ITS | Encounter Summary ---
Author Organization [facility] Address [address] [place] [address] Care Team Providers Care Geophysical Engineer Name Role Phone Martin Kelley MD Primary Care Provider [phone] Reason for Visit * Auth/Cert - Closed Specialty Diagnoses / Procedures Referred By Lambert t Referred To Contact Gastroenterology Diagnoses UC (ulcerative colitis) UC (ulcerative colitis) [556.9] Procedures COLONOSCOPY [facility] [address] [place] [address] Referral ID Status Reason Start Date Expiration Date Visits Re quested Visits Authorized [id number] Closed 1 1 Encounter Details Date Type Department Care Team (Late st Contact Info) Description 06/09/2014 2:30 PM CDT - 06/09/2014 3:00 PM CDT Surgery [facility] [address] [place] [address] Katie Steele MD NO ADDRESS [...] 12/08/2009 COLONOSCOPY performed by LOUISE SOTELO at [facility] GI LAB ??? Pr sigmoidoscopy,diagnostic 02/16/2012 SIGMOIDOSCOPY FLEXIBLE performed by Louise Sotelo MD at [facility] GI LAB ??? Pr endoscopy of bowel pouch 02/16/2012 POUCHOSCOPY performed by Louise Sotelo MD at [facility] GI LAB ??? Pr esophagogastroduodenoscopy transoral diagnostic 02/28/2012 ESOPHAGOGASTRODUODENOSCOPY performed by Katie Steele MD at [facility] GI LAB ??? Pr small bowel endoscopy,biopsy 02/28/2012 BOWEL SMALL BIOPSY ENDOSCOPIC performed by Katie Steele MD at [facility] GI LAB ??? Pr small bowel endoscopy,past 2nd duod 06/12/2012 SMALL BOWEL ENTEROSCOPY performed by Katie Steele MD at [facility] GI LAB ??? Pr dilation rectal stricture w anest 06/12/2012 RECTAL STRICTURE DILATATION performed by Katie Steele MD at [facility] GI LAB Prescriptions prior to admission [...] 06/10/2014 1:49 AM CDTAssociated Order(s): GI REPORT [place], [place] [address] Gastroenterology CSN: [id number] DATE OF SERVICE: ILEOSCOPY REPORT DATE OF [...] the Humira to once weekly. ZANEF:MEDQ DID: [id number] Dictated by: Katie Steele MD * Katie Steele MD - 06/09/2014 3:53 PM CDTAssociated Order(s): GI REPORT [facility] Endoscopy Patient Name: Mukul Huber Procedure Date No Time: 06/09/2014 Date of : 1970 Admit Type: Outpatient Attending MD: Katie Steele MD Procedure: Images Only-Procedure Report in [facility] Providers: Katie Steele MD Referring MD: Martin Hopper MD Submitted Katie Steele MD Number of Addenda: 0 [address] [facility]; [place] [address] documented in this encounter OR Notes * [...] Chin RN - 06/06/2014 5:12 PM CDT [facility] GI LAB Pre-Anesthesia Protocol for GI Lab [...] Visit [facility] IBD and Gastroenterology Center [place] [address] [place] [address] Kitty Dover, MIRTA [address] [place] [address] [place] [address] documented as of this encounter [...] Steele MD - 06/09/2014 3:53 PM CDT [facility] Endoscopy Patient Name: Mukul Huber Procedure Date No Time: 06/09/2014 Date of : 1970 Admit Type: Outpatient Attending MD: Katie Steele MD Procedure: Images Only-Procedure Report in [facility] Providers: Katie Steeel MD Referring MD: Martin Hopper MD Submitted Katie Steele MD Number of Addenda: [address]; [place] [address] Katie Steele MD - 06/10/2014 1:49 AM CDT [place], [place] [address] Gastroenterology CSN: [id number] DATE OF SERVICE: ILEOSCOPY REPORT DATE OF [...] May increasethe Humira to once weekly. JSF:MEDQ DID:[id number] Dictated by: Katie Steele MD Katie Steele MD GI PROCEDURE [facility] * PATHOLOGY (06/09/2014 5:00 PM CDT) SURGICAL PATHOLOGY ?[facility] ?[address] ? [place], [place] ??[address] ? Patient: ??MUKUL HUBER S ? : ??1970 ? Procedure Date: ??06/09/2014 ? Accession Date: ??06/10/2014 ? Case No: ??[id number] ? Ordering Dr: ??STEELE, KATIE S ? Case type SW is performed by [facility], [address], ? [place], [place] ??[address]; all other case types are performed by [facility] ? [facility], [address] [facility], [place] ??[address] ?SURGICAL PATHOLOGY & NON-GYNECOLOGIC CYTOPATHOLOGY REPORT ? [...] ? Microscopic: ? Received are slides labeled [id number], Mukul Huber Georgette. ? Sections of small [...] no evidence of dysplasia or malignancy. ? [facility] 06.11.2014 12:43 pm ? Staging Form: ? No ? ELECTRONIC SIGNATURE FOR SARA BLANK M.D.- 06/11/14 06:23 pm [facility] SERVICES [facility] 06/09/2014 5:00 PM CDT Katie Steele MD PATHOLOGY/CYTOLOGY O RDERABLES Performing Organization Address [facility]/ZIP Co de Phone Number [facility] [employer] [facility]# [id number] [address] [place] [address] * CLOSTRIDIUM DIFFICILE TOXIN (06/09/2014 3:54 PM CDT) C DIFF TOXIN PCR RESULT Negative Negative [facility] C DIFF TOXIN PCR SOURCE Stool [facility] Stool 06/09/2014 3:54 PM CDT 06/09/2014 6:06 PM CDT Comment:STOOL Katie Steele MD MICROBIOLOGY - GENER AL ORDERABLES Performing Organization Address [facility]/ZIP Co de Phone Number [facility] [employer] [facility]# [id number] [address] [place] [address] documented in this encounter Visit Diagnoses Diagnosis [...] JIE) documented in this encounter Care Teams Geophysical Engineer Relationship Specialty Start Date End Date Martin Kelley MD PCP - General Internal Medicine 02/16/12 08/14/17 documented as of this encounter
--- OUTSIDE RECORDS SUMMARY | 2024-10-24 06:41 | XMS_ITS | Encounter Summary ---
Author Organization [facility] Address [address] [place] [address] Care Team Providers Care Cotton Dispatcher Name Role Phone Martin Kelley MD Primary Care Provider [phone] Encounter Details Date Type Department Care Team (Late st Contact Info) Description 08/23/2012 Abstract [facility] GASTROENTEROLOGY [address] [facility] [address] [place] [address] Lane Ryan MD NO ADDRESS [...] Description 02/13/2025 10:30 AM CDT Office Visit [facility] IBD and Gastroenterology Center [place] [address] [facility] [address] [place] [address] Kitty Dover ANP [address] [facility] [address] [place] [address] documented as of this encounter Visit Diagnoses Not on filedocumented in this encounter Care Teams Cotton Dispatcher Relationship Specialty Start Date End Date Martin Kelley MD PCP - General Internal Medicine 02/16/12 08/14/17 documented as of this encounter
--- OUTSIDE RECORDS SUMMARY | 2024-10-24 06:41 | XMS_ITS | Encounter Summary ---
Author Organization [facility] Address [address] [place] [address] Care Team Providers Care Automatic Thread Winder Name Role Phone Martin Kelley MD Primary Care Provider [phone] Reason for Visit * Reason Onset Date Comments Medication Review 07/18/2014 Encounter Details Date Type Department Care Team (Late st Contact Info) Description 07/18/[address] [facility] GASTROENTEROLOGY [address] [facility] [address] [place] [address] Lane Ryan MD NO ADDRESS [...] Visit [facility] IBD and Gastroenterology Center [place] [address] [place] [address] Kitty Dover, [facility] [address] [place] [address] [place] [address] documented as of this encounter Visit Diagnoses Not on filedocumented in this encounter Care Teams Automatic Thread Winder Relationship Specialty Start Date End Date Martin Kelley MD PCP - General Internal Medicine 02/16/12 08/14/17 documented as of this encounter
--- OUTSIDE RECORDS SUMMARY | 2024-10-24 06:41 | XMS_ITS | Encounter Summary ---
Author Organization [facility] Address [address] [place] [address] Care Team Providers Care Music Supervisor Name Role Phone Jasiel Freeman MD Primary Care Provider Encounter Details Date Type Department Care Team (Late st Contact Info) Description 07/26/[address] [facility] GASTROENTEROLOGY [address] [facility] [address] [place] [address] Lane Ryan MD NO ADDRESS [...] Visit [facility] IBD and Gastroenterology Center [place] [address] [place] [address] Kitty Dover, ANP [address] [place] [address] documented as of this encounter Visit Diagnoses Diagnosis Ulcerative colitis- Primary Ulcerative colitis, unspecified documented in this encounter Additional Health Concerns Infection Onset Date Last Indicated Resolved Time R/O C. diff 08/11/2022 08/10/2022 08/11/2022 2:45 PM CDT R/O C. diff 12/11/2022 12/09/2022 12/11/2022 1:26 PM FISH RECEIVER R/O C. diff 10/17/2024 10/17/2024 10/17/2024 6:55 PM FISH RECEIVER documented as of this encounter Care Teams Music Supervisor Relationship Specialty Start Date End Date Jasiel Freeman MD [address] [place] [address] PCP - General Family Practice 08/15/17 documented as of this encounter
--- OUTSIDE RECORDS SUMMARY | 2024-10-24 06:41 | XMS_ITS | Encounter Summary ---
Author Organization [facility] Address [address] [place] [address] Care Team Providers Care Netezza Architect Name Role Phone Martin Kelley MD Primary Care Provider [phone] Encounter Details Date Type Department Care Team (Late st Contact Info) Description 12/05/2014 Abstract [facility] GASTROENTEROLOGY [address] [facility] [address] [place] [address] Lane Ryan MD NO ADDRESS [...] [facility] IBD and Gastroenterology Center [place] [address] [place] [address] Kitty Dover ANP [address] [place] [address] documented as of this encounter Visit Diagnoses Not on filedocumented in this encounter Care Teams Netezza Architect Relationship Specialty Start Date End Date Martin Kelley MD PCP - General Internal Medicine 02/16/12 08/14/17 documented as of this encounter
--- OUTSIDE RECORDS SUMMARY | 2024-10-24 06:41 | XMS_ITS | Encounter Summary ---
Author Organization [facility] Address [address] [place] [address] Care Team Providers Care Director Plans Name Role Phone Martin Kelley MD Primary Care Provider [phone] Encounter Details Date Type Department Care Team (Late st Contact Info) Description 11/08/2012 Orders Only [facility] GASTROENTEROLOGY [address] [facility] [address] [place] [address] Lane Ryan MD NO ADDRESS [...] 02/13/2025 10:30 AM CDT Office Visit [facility] IBD and Gastroenterology Center [place] [address] [place] [address] Kitty Dover ANP [address] [place] [address] documented as of this encounter Procedures Procedure Name Priority Date/Time Associated Diagnosis Comments IRRITABLE BOWEL SYNDROME PANEL Routine 02/29/2012 documented in this encounter Results * IRRITABLE BOWEL SYNDROME PANEL (02/29/2012) Blood specimen (specimen) Lane Ryan MD CHEMISTRY ORDERABLES Performing Organization Address City/[facility] Co de Phone Number [facility] LAB[facility] SERVICES [facility]# [id number] [address] [place] [address] documented in this encounter Visit Diagnoses Not on filedocumented in this encounter Care Teams Director Plans Relationship Specialty Start Date End Date Martin Kelley MD PCP - General Internal Medicine 02/16/12 08/14/17 documented as of this encounter
--- OUTSIDE RECORDS SUMMARY | 2024-10-24 06:41 | XMS_ITS | Encounter Summary ---
Author Organization [facility] Address [address] [place] [address] Care Team Providers Care [employer] Police Name Role Phone Martin Kelley MD Primary Care Provider [phone] Reason for Visit * Reason Comments Ulcerative Colitis Encounter Details Date Type Department Care Team (Latest Contact Info) Description 08/11/2014 10:15 AM CDT Office Visit [facility] GASTROENTEROLOGY [address] [facility] [address] [place] [address] Lane Ryan MD NO ADDRESS [...] [facility] IBD and Gastroenterology Center [place] [address] [place] [address] Kitty Dover, [facility] [address] [place] [address] documented as of this encounter Visit Diagnoses Diagnosis IBD (inflammatory bowel disease)- Primary Other and unspecified noninfectious gastroenteritis and colitis documented in this encounter Care Teams [employer] Relationship Specialty Start Date End Date Martin Kelley MD PCP - General Internal Medicine 02/16/12 08/14/17 documented as of this encounter
--- OUTSIDE RECORDS SUMMARY | 2024-10-24 06:41 | XMS_ITS | Encounter Summary ---
Author Organization [facility] Address [address] [place] [address] Care Team Providers Care Greenhouse Florist Name Role Phone Martin Kelley MD Primary Care Provider [phone] Reason for Visit * Reason Onset Date Comments Insurance Issues 11/14/2014 Encounter Details Date Type Department Care Team (Late st Contact Info) Description 11/14/2014 Telephone [facility] GASTROENTEROLOGY [address] [facility] [address] [place] [address] Lane Ryan MD NO ADDRESS [...] will contact pt for correct ins info. PT ARTIST documented in this encounter Plan of Treatment Upcoming Encounters Date Type Department Care Team (Late st Contact Info) Description 02/13/2025 10:30 AM CDT Office Visit [facility] IBD and Gastroenterology [facility] [place] [address] [place] [address] Kitty [place], [facility] [address] [place] [address] [place] [address] documented as of this encounter Visit Diagnoses Not on filedocumented in this encounter Care Teams Greenhouse Florist Relationship Specialty Start Date End Date Martin Kelley MD PCP - General Internal Medicine 02/16/12 08/14/17 documented as of this encounter
--- OUTSIDE RECORDS SUMMARY | 2024-10-24 06:41 | XMS_ITS | Encounter Summary ---
Author Organization [facility] Address [address] [place] [address] Care Team Providers Care Gold Leaf Layer Name Role Phone Martin Kelley MD Primary Care Provider [phone] Encounter Details Date Type Department Care Team (Late st Contact Info) Description 08/25/2014 Abstract [facility] GASTROENTEROLOGY [address]A [address] [facility] [address] [place] [address] Lane Ryan MD NO ADDRESS [...] [facility] IBD [facility] Gastro[facility]ology [facility] [place] [address] [place] [address] Kitty [place], MIRTA [address] [place] [address] documented as of this encounter Visit Diagnoses Not on filedocumented in this encounter Care Teams Gold Leaf Layer Relationship Specialty Start Date End Date Martin Kelley MD PCP - General Internal Medicine 02/16/12 08/14/17 documented as of this encounter
--- OUTSIDE RECORDS SUMMARY | 2024-10-24 06:41 | XMS_ITS | Encounter Summary ---
Author Organization [facility] Address [address] [place] [address] Care Team Providers Care Assurance Auditor Name Role Phone Martin Kelley MD Primary Care Provider [phone] Encounter Details Date Type Department Care Team (Late st Contact Info) Description 08/03/2012 Abstract [facility] GASTROENTEROLOGY [address] [facility] [address] [place] [address] Lane Ryan MD NO ADDRESS [...] IBD and Gastroenterology [facility] [place] [address] [facility] [address] [place] [address] Kitty [place] ANP [address] [facility] [address] [place] [address] documented as of this encounter Visit Diagnoses Not on filedocumented in this encounter Care Teams Assurance Auditor Relationship Specialty Start Date End Date Martin Kelley MD PCP - General Internal Medicine 02/16/12 08/14/17 documented as of this encounter
--- OUTSIDE RECORDS SUMMARY | 2024-10-24 06:41 | XMS_ITS | Encounter Summary ---
Author Organization [facility] Address [address] [place] [address] Care Team Providers Care Hand Washer Name Role Phone Martin Kelley MD Primary Care Provider [phone] Reason for Visit * Reason Onset Date Comments New Prescription Request 01/29/2013 Encounter Details Date Type Department Care Team (Late st Contact Info) Description 01/29/2013 Telephone [facility] GASTROENTEROLOGY [address] [facility] [address] [place] [address] Lane Ryan MD NO ADDRESS [...] having a flare up and needs Flagyl? [phone] documented in this encounter Plan of Treatment Upcoming Encounters Date Type Department Care Team (Late st Contact Info) Description 02/13/2025 10:30 AM CDT Office Visit [facility] IBD and Gastroenterology [facility] [place] [address] [place] [address] Kitty [place], [facility] [address] [place] [address] [place] [address] documented as of this encounter Visit Diagnoses Diagnosis Pouchitis- Primary documented in this encounter Care Teams Hand Washer Relationship Specialty Start Date End Date Martin Kelley MD PCP - General Internal Medicine 02/16/12 08/14/17 documented as of this encounter
--- OUTSIDE RECORDS SUMMARY | 2024-10-24 06:41 | XMS_ITS | Encounter Summary ---
Author Organization [facility] Address [address] [place] [address] Care Team Providers Care Insert Cutter Name Role Phone Martin Kelley MD Primary Care Provider [phone] Reason for Visit * Reason Onset Date Comments Results 07/22/2014 Encounter Details Date Type Department Care Team (Late st Contact Info) Description 07/22/2014 Telephone [facility] GASTROENTEROLOGY [address] [facility] [address] [place] [address] Katie Steele MD NO ADDRESS [...] [facility] G[facility] [place] [address] [facility] [address] [place] [address] Kitty [place], [facility] [address] [place] [place] [address] [place] [address] documented as of this encounter Visit Diagnoses Not on filedocumented in this encounter Care Teams Insert Cutter Relationship Specialty Start Date End Date Martin Kelley MD PCP - General Internal Medicine 02/16/12 08/14/17 documented as of this encounter
--- OUTSIDE RECORDS SUMMARY | 2024-10-24 06:41 | XMS_ITS | Encounter Summary ---
Author Organization [facility] Address [address] [place] [address] Care Team Providers Care Oil Speculator Name Role Phone Martin Kelley MD Primary Care Provider [phone] Reason for Visit * Reason Comments Medication Refill Encounter Details Date Type Department Care Team (Late st Contact Info) Description 11/10/[address] [facility] GASTROENTEROLOGY [address] [facility] [address] [place] [address] Lane Ryan MD NO ADDRESS [...] [facility] IBD and Gastroenterology [facility] [place] [address] [place] [address] Kitty [place], ANP [address] [place] [address] documented as of this encounter Visit Diagnoses Not on filedocumented in this encounter Care Teams Oil Speculator Relationship Specialty Start Date End Date Martin Kelley MD PCP - General Internal Medicine 02/16/12 08/14/17 documented as of this encounter
--- OUTSIDE RECORDS SUMMARY | 2024-10-24 06:41 | XMS_ITS | Encounter Summary ---
Author Organization [facility] Address [address] [place] [address] Care Team Providers Care Coordinator Of Online Programs Name Role Phone Martin Kelley MD Primary Care Provider [phone] Reason for Visit * Reason Onset Date Comments Medication Refill 08/04/2015 Encounter Details Date Type Department Care Team (Late st Contact Info) Description 08/04/2015 Telephone [facility] GASTROENTEROLOGY [address] [facility] [address] [place] [address] Lane Ryan MD NO ADDRESS [...] Visit [facility] IBD and Gastroenterology Center [place] [address] [place] [address] Kitty [place], ANP [address] [place] [address] [place] [address] documented as of this encounter Visit Diagnoses Diagnosis Pouchitis- Primary documented in this encounter Care Teams Coordinator Of Online Programs Relationship Specialty Start Date End Date Martin Kelley MD PCP - General Internal Medicine 02/16/12 08/14/17 documented as of this encounter
--- OUTSIDE RECORDS SUMMARY | 2024-10-24 06:41 | XMS_ITS | Encounter Summary ---
Author Organization [facility] Address [address] [place] [address] Care Team Providers Care Lumber Checker Name Role Phone Martin Kelley MD Primary Care Provider [phone] Reason for Visit * Reason Onset Date Comments Medication Refill 07/07/2014 Encounter Details Date Type Department Care Team (Late Contact Info) Description 07/07/2014 Refill [facility] GASTROENTEROLOGY [address] [facility] [address] [place] [address] Lane Ryan MD NO ADDRESS [...] [facility] IBD and Gastroenterology Center [place] [address] [place] [address] Kitty [place], ANP [address] [facility] 100 [place] [address] documented as of this encounter Visit Diagnoses Diagnosis IBD (inflammatory bowel disease)- Primary Other and unspecified noninfectious gastroenteritis and colitis documented in this encounter Care Teams Lumber Checker Relationship Specialty Start Date End Date Martin Kelley MD PCP - General Internal Medicine 02/16/12 08/14/17 documented as of this encounter
--- OUTSIDE RECORDS SUMMARY | 2024-10-24 06:41 | XMS_ITS | Encounter Summary ---
Author Organization [facility] Address [address] [place] [address] Care Team Providers Care Director Summer Sessions Name Role Phone Martin Kelley MD Primary Care Provider [phone] Reason for Visit * Reason Onset Date Comments Medication Question 07/15/2014 Encounter Details Date Type Department Care Team (Late st Contact Info) Description 07/15/2014 Telephone [facility] GASTROENTEROLOGY [address] [facility] [address] [place] [address] Lane Ryan MD NO ADDRESS [...] [facility] IBD and Gastroenterology Center [place] [address] [facility] [address] [place] [address] Kitty [place], [facility] [address] [facility] [address] [place] [address] documented as of this encounter Visit Diagnoses Diagnosis IBD (inflammatory bowel disease)- Primary Other and unspecified noninfectious gastroenteritis and colitis documented in this encounter Care Teams Director Summer Sessions Relationship Specialty Start Date End Date Martin Kelley MD PCP - General Internal Medicine 02/16/12 08/14/17 documented as of this encounter
--- OUTSIDE RECORDS SUMMARY | 2024-10-24 06:41 | XMS_ITS | Encounter Summary ---
Author Organization [facility] Address [address] [place] [address] Care Team Providers Care Line Up Worker Name Role Phone Martin Kelley MD Primary Care Provider [phone] Reason for Visit * Reason Onset Date Comments Medication Problem 12/15/2014 Encounter Details Date Type Department Care Team (Late st Contact Info) Description 12/15/2014 Telephone [facility] GASTROENTEROLOGY [address]A [address] [facility] [address] [place] [address] Lane Ryan MD NO ADDRESS [...] 12/16/2014 6:23 PM CST Ordered jeffrey meyers TH ECONOMIST * Telephone Encounter - Kadie Nye - 12/15/2014 2:10 PM CST Patient calling because he got script for Humira syringes and he uses pens. Please escribe. TH ECONOMIST documented in this encounter Plan of Treatment Upcoming Encounters Date Type Department Care Team (Late st Contact Info) Description 02/13/2025 10:30 AM CDT Office Visit [facility] IBD and Gastroenterology Center [place] [address] [facility] [address] [place] [address] Kitty [place], [facility] [address] [facility] [address] [place] [address] documented as of this encounter Visit Diagnoses Diagnosis Ulcerative colitis, other complication- Primary documented in this encounter Care Teams Line Up Worker Relationship Specialty Start Date End Date Martin Kelley MD PCP - General Internal Medicine 02/16/12 08/14/17 documented as of this encounter
--- OUTSIDE RECORDS SUMMARY | 2024-10-24 06:41 | XMS_ITS | Encounter Summary ---
Author Organization [facility] Address [address] [place] [address] Care Team Providers Care Electronic Coils Supervisor Name Role Phone Martin Kelley MD Primary Care Provider [phone] Reason for Visit * Reason Onset Date Comments New Prescription Request 08/12/2014 Encounter Details Date Type Department Care Team (Late st Contact Info) Description 08/12/2014 Telephone [facility] GASTROENTEROLOGY [address] [facility] [address] [place] [address] Lane Ryan MD NO ADDRESS [...] [facility] IBD and Gastroenterology Center [place] [address] [place] [address] [place], ANP [address] [place] [address] [place] [address] documented as of this encounter Visit Diagnoses Not on filedocumented in this encounter Care Teams Electronic Coils Supervisor Relationship Specialty Start Date End Date Martin Kelley MD PCP - General Internal Medicine 02/16/12 08/14/17 documented as of this encounter
--- OUTSIDE RECORDS SUMMARY | 2024-10-24 06:41 | XMS_ITS | Encounter Summary ---
Author Organization [facility] Address [address] [place] [address] Care Team Providers Care Mathematician Name Role Phone Martin Kelley MD Primary Care Provider [phone] Reason for Visit * Auth/Cert - Closed Specialty Diagnoses / Procedures Referred By Contalka t Referred To Contact Gastroenterology Diagnoses UC (ulcerative colitis) UC (ulcerative colitis) [556.9] Procedures COLONOSCOPY [facility] [address] [place] [address] Referral ID Status Reason Start Date Expiration Date Visits Re quested Visits Authorized [id number] Closed 1 1 Encounter Details Date Type Department Care Team (Late st Contact Info) Description 06/09/2014 3:11 PM CDT Anesthesia Event [facility] [address] [place] [address] [place] [address] Dragan Vegas MD [facility] [place] [address] Anesthesia Record Procedure Summary Procedure [...] to blood products. Plan discussed with Nurse Chenille Machine Operator. Post-op Pain Control Plan to use Per surgeon for post-op pain control. documented in this encounter Plan of Treatment Upcoming Encounters Date Type Department Care Team (Late st Contact Info) Description 02/13/2025 10:30 AM CDT Office Visit [facility] IBD and Gastroenterology Center [place] [address] [place] [address] Kitty [place], [facility] [address] [place] [address] documented as of this encounter [...] mg documented in this encounter Care Teams Mathematician Relationship Specialty Start Date End Date Martin Kelley MD PCP - General Internal Medicine 02/16/12 08/14/17 documented as of this encounter
--- OUTSIDE RECORDS SUMMARY | 2024-10-24 06:41 | XMS_ITS | Encounter Summary ---
Author Organization [facility] Address [address] [place] [address] Care Team Providers Care Dry House Tender Name Role Phone Martin Kelley MD Primary Care Provider [phone] Encounter Details Date Type Department Care Team (Late st Contact Info) Description 08/16/2012 Abstract [facility] GASTROENTEROLOGY [address] [facility] [address] [place] [address] Lane Ryan MD NO ADDRESS [...] [facility] IBD and Gastroenterology Center [place] [address] [facility] [address] [place] [address] Kitty [place] ANP [address] [facility] [address] [place] [address] documented as of this encounter Visit Diagnoses Not on filedocumented in this encounter Care Teams Dry House Tender Relationship Specialty Start Date End Date Martin Kelley MD PCP - General Internal Medicine 02/16/12 08/14/17 documented as of this encounter
--- OUTSIDE RECORDS SUMMARY | 2024-10-24 06:41 | XMS_ITS | Encounter Summary ---
Author Organization [facility] Address [address] [place] [address] Care Team Providers Care Internal Affairs Commander Name Role Phone Martin Kelley MD Primary Care Provider [phone] Reason for Visit * Reason Onset Date Comments New Prescription Request 11/25/2014 Encounter Details Date Type Department Care Team (Late st Contact Info) Description 11/25/2014 Telephone [facility] GASTROENTEROLOGY [address] [facility] [address] [place] [address] Lane Ryan MD NO ADDRESS [...] pt was undable to lm no vm. ESSING LEAD documented in this encounter Plan of Treatment Upcoming Encounters Date Type Department Care Team (Late st Contact Info) Description 02/13/2025 10:30 AM CDT Office Visit [facility] IBD and Gastroenterology Center [place] [address] [facility] [address] [place] [address] Kitty [place], ANP [address] [place] [address] [place] [address] documented as of this encounter Visit Diagnoses Not on filedocumented in this encounter Care Teams Internal Affairs Commander Relationship Specialty Start Date End Date Martin Kelley MD PCP - General Internal Medicine 02/16/12 08/14/17 documented as of this encounter
--- OUTSIDE RECORDS SUMMARY | 2024-10-24 06:41 | XMS_ITS | Encounter Summary ---
Author Organization [facility] Address [address] [place] [address] Care Team Providers Care Granite Cutter Apprentice Name Role Phone Martin Kelley MD Primary Care Provider [phone] Encounter Details Date Type Department Care Team (Late st Contact Info) Description 11/15/2012 Abstract [facility] GASTROENTEROLOGY [address]A [address] [facility] [address] [place] [address] Lane Ryan MD NO ADDRESS [...] IBD and Gastroenterology Center [place] [address] [facility] [address] [place] [address] Kitty [place] ANP [address] [facility] 100 [place] [address] documented as of this encounter Visit Diagnoses Not on filedocumented in this encounter Care Teams Granite Cutter Apprentice Relationship Specialty Start Date End Date Martin Kelley MD PCP - General Internal Medicine 02/16/12 08/14/17 documented as of this encounter
--- OUTSIDE RECORDS SUMMARY | 2024-10-24 06:41 | XMS_ITS | Encounter Summary ---
Author Organization [facility] Address [address] [place] [address] Care Team Providers Care Wage Conciliator Name Role Phone Martin Kelley MD Primary Care Provider [phone] Encounter Details Date Type Department Care Team (Late st Contact Info) Description 10/14/2015 Abstract [facility] GASTROENTEROLOGY [address]A [address] [facility] [address] [place] [address] Lane Ryan MD NO ADDRESS [...] [facility] IBD and Gastroenterology [facility] [place] [address] [place] [address] Kitty [place], MIRTA [address] [place] [address] documented as of this encounter Visit Diagnoses Not on filedocumented in this encounter Care Teams Wage Conciliator Relationship Specialty Start Date End Date Martin Kelley MD PCP - General Internal Medicine 02/16/12 08/14/17 documented as of this encounter
--- OUTSIDE RECORDS SUMMARY | 2024-10-24 06:41 | XMS_ITS | Encounter Summary ---
Author Organization [facility] Address [address] [place] [address] Care Team Providers Care Health Physicist Name Role Phone Martin Kelley MD Primary Care Provider [phone] Encounter Details Date Type Department Care Team (Late st Contact Info) Description 06/10/2014 Abstract [facility] GASTROENTEROLOGY [address] [facility] [address] [place] [address] Lane Ryan MD NO ADDRESS [...] 10:30 AM CDT Office Visit [facility] IBD and Gastroenterology Center [place] [address] [place] [address] Kitty [place] ANP [address] [place] [address] documented as of this encounter Visit Diagnoses Not on filedocumented in this encounter Care Teams Health Physicist Relationship Specialty Start Date End Date Martin Kelley MD PCP - General Internal Medicine 02/16/12 08/14/17 documented as of this encounter
--- OUTSIDE RECORDS SUMMARY | 2024-10-24 06:41 | XMS_ITS | Encounter Summary ---
Author Organization [facility] Address [address] [place] [address] Care Team Providers Care Private Detective Name Role Phone Martin Kelley MD Primary Care Provider [phone] Reason for Visit * Outpatient Services (Routine) - Closed Specialty Diagnoses / Procedures Referred By Contac t Referred To Contact Laboratory Diagnoses . Procedures LAB Lane Ryan MD NO ADDRESS ON FILE [address] [address] Referral ID Status Reason Start Date Expiration Date Visits Re quested Visits Authorized [id number] Closed 06/24/2014 07/25/2015 1 1 Encounter Details Date Type Department Care Team (Latest Contact Info) Description 06/24/2014 1:21 PM CDT - 06/24/2014 11:59 PM T Hospital Encounter [facility] Laboratory Services [address] [address] Lane Ryan MD NO ADDRESS ON FILE [...] [facility] [place] [address] [place] [address] Kitty [place] ANP [address] [place] [address] Scheduled Orders Name Type Priority Associated Diagnoses Orde r Schedule REFERENCE LAB PROCESSING FEE Lab Routine Ulcerative colitis, unspecified ONE TIME for 1 Occurrences starting 06/24/2014 until 06/24/2014 documented as of this encounter Visit Diagnoses Diagnosis Ulcerative colitis, unspecified- Primary documented in this encounter Care Teams Private Detective Relationship Specialty Start Date End Date Martin Kelley MD PCP - General Internal Medicine 02/16/12 08/14/17 documented as of this encounter
--- OUTSIDE RECORDS SUMMARY | 2024-10-24 06:41 | XMS_ITS | Encounter Summary ---
Author Organization [facility] Address [address] [place] [address] Care Team Providers Care Tour Actor Name Role Phone Martin Kelley MD Primary Care Provider [phone] Reason for Visit * Reason Onset Date Comments Medication Refill 07/09/2014 Encounter Details Date Type Department Care Team (Late Contact Info) Description 07/09/2014 Refill [facility] GASTROENTEROLOGY [address] [facility] [address] [place] [address] Lane Ryan MD NO ADDRESS [...] [facility] IBD and Gastroenterology Center [place] [address] [place] [address] [place], ANP [address] [facility] [address] [place] [address] documented as of this encounter Visit Diagnoses Diagnosis IBD (inflammatory bowel disease)- Primary Other and unspecified noninfectious gastroenteritis and colitis documented in this encounter Care Teams Tour Actor Relationship Specialty Start Date End Date Martin Kelley MD PCP - General Internal Medicine 02/16/12 08/14/17 documented as of this encounter
--- OUTSIDE RECORDS SUMMARY | 2024-10-24 06:41 | XMS_ITS | Encounter Summary ---
Author Organization [facility] Address [address] [place] [address] Care Team Providers Care Refinery Operator Polymerization Plant Name Role Phone Martin Kelley MD Primary Care Provider [phone] Reason for Visit * Reason Onset Date Comments Insurance Issues 06/22/2015 Encounter Details Date Type Department Care Team (Late st Contact Info) Description 06/22/2015 Telephone [facility] GASTROENTEROLOGY [address] [facility] [place] [address] Lane Ryan MD NO ADDRESS [...] he is getting a bill from his [employer] [facility] that were done in Jun. I gave him # to call [phone]. I called the # also to see what needs to be done or appealed and rep said all appeals have been exhausted. They reduced his bill from $2500 to $250.00 and offer financial assistance he can call same # [phone] and they can help him if he wants to do this its based on combined family income. documented in this encounter Plan of Treatment Upcoming Encounters Date Type Department Care Team (Late st Contact Info) Description 02/13/2025 10:30 AM CDT Office Visit [facility] IBD and Gastroenterology Center [place] [address] [place] [address] Kitty Dover, [facility] [address] [place] [address] documented as of this encounter Visit Diagnoses Not on filedocumented in this encounter Care Teams Refinery Operator Polymerization Plant Relationship Specialty Start Date End Date Martin Kelley MD PCP - General Internal Medicine 02/16/12 08/14/17 documented as of this encounter
--- OUTSIDE RECORDS SUMMARY | 2024-10-24 06:41 | XMS_ITS | Encounter Summary ---
Author Organization [facility] Address [address] [place] [address] Care Team Providers Care Senior Manager Asset Protection Name Role Phone Martin Kelley MD Primary Care Provider [phone] Reason for Visit * Auth/Cert - Closed Specialty Diagnoses / Procedures Referred By Lambert t Referred To Contact Gastroenterology Diagnoses UC (ulcerative colitis) UC (ulcerative colitis) [556.9] Procedures COLONOSCOPY [facility] [address] [place] [address] Referral ID Status Reason Start Date Expiration Date Visits Re quested Visits Authorized [id number] Closed 1 1 Encounter Details Date Type Department Care Team (Latest Contact Info) Description 06/09/2014 1:41 PM CDT - 06/09/2014 4:57 PM CDT Hospital Encounter [facility] [address] [place] [address] Katie Steele MD NO ADDRESS [...] 12/08/2009 COLONOSCOPY performed by LOUISE SOTELO at [facility] GI [facility] ??? Pr sigmoidoscopy,diagnostic 02/16/2012 SIGMOIDOSCOPY FLEXIBLE performed by Louise Sotelo MD at [facility] ??? Pr endoscopy of bowel pouch 02/16/2012 POUCHOSCOPY performed by Louise Sotelo MD at [facility] ??? Pr esophagogastroduodenoscopy transoral diagnostic 02/28/2012 ESOPHAGOGASTRODUODENOSCOPY performed by Katie Steele MD at [facility] ??? Pr small bowel endoscopy,biopsy 02/28/2012 BOWEL SMALL BIOPSY ENDOSCOPIC performed by Katie Steele MD at [facility] ??? Pr small bowel endoscopy,past 2nd duod 06/12/2012 SMALL BOWEL ENTEROSCOPY performed by Katie Steele MD at [facility] ??? Pr dilation rectal stricture w anest 06/12/2012 RECTAL STRICTURE DILATATION performed by Katie Steele MD at [facility] Prescriptions prior to admission Medication [...] 06/10/2014 1:49 AM CDTAssociated Order(s): GI REPORT [place], [place] [address] Gastroenterology CSN: [id number] DATE OF SERVICE: ILEOSCOPY REPORT DATE OF [...] the Humira to once weekly. JSF:MEDQ DID: [id number] Dictated by: Katie Steele MD * Katie Steele MD - 06/09/2014 3:53 PM CDTAssociated Order(s): GI REPORT [facility] Patient Name: Mukul Huber Procedure Date No Time: 06/09/2014 Date of : 1970 Admit Type: Outpatient Attending MD: Katie Steele MD Procedure: Images Only-Procedure Report in [facility] Providers: Katie Steele MD Referring MD: Martin Hopper MD Submitted Katie Steele MD Number of Addenda: [address]; [place] [address] documented in this encounter OR Notes * [...] Chin RN - 06/06/2014 5:12 PM CDT [facility] LAB Pre-Anesthesia Protocol for GI Lab [...] 10:30 AM CDT Office Visit [facility] IBD and [facility]astroenterology Center [place] [address] [facility] [address] [place] [address] Kitty Dover ANP [address] [facility] [address] [place] [address] documented as of this encounter [...] Steele MD - 06/09/2014 3:53 PM CDT [facility] Patient Name: Mukul Huber Procedure Date No Time: 06/09/2014 Date of : 1970 Admit Type: Outpatient Attending MD: Katie Steele MD Procedure: Images Only-Procedure Report in [facility] Providers: Katie Steele MD Referring MD: Martin Hopper MD Submitted Katie Steele MD Number of Addenda: [address]; [place] [address] Katie Steele MD - 06/10/2014 1:49 AM CDT [place], [place] [address] Gastroenterology CSN: [id number] DATE OF SERVICE: ILEOSCOPY REPORT DATE OF [...] May increasethe Humira to once weekly. JSF:MEDQ DID:[id number] Dictated by: Katie Steele MD Katie Steele MD GI PROCEDURE [facility] * PATHOLOGY (06/09/2014 5:00 PM CDT) SURGICAL PATHOLOGY ?[facility] ?[address] [facility] ? [place], [place] ??[address] ? Patient: ??MUKUL HUBER S ? : ??1970 ? Procedure Date: ??06/09/2014 ? Accession Date: ??06/10/2014 ? Case No: ??[id number] ? Ordering Dr: ??KATIE STEELE ? Case type SW is performed by [address], ? [place], [place] ??[address]; all other case types are performed by [facility] ? [facility] [place], [place] ??[address] ?SURGICAL PATHOLOGY & NON-GYNECOLOGIC CYTOPATHOLOGY REPORT ? [...] ? Microscopic: ? Received are slides labeled [id number], Thyer, Mukul S. ? Sections of small bowel biopsy [...] no evidence of dysplasia or malignancy. ? [facility] 06.11.2014 12:43 pm ? Staging Form: ? No ? ELECTRONIC SIGNATURE FOR SARA BLANK M.D.- 06/11/14 06:23 pm [facility] [employer] [facility] 06/09/2014 5:00 PM CDT Katie Steele MD PATHOLOGY/CYTOLOGY O ESPERANZA [facility] [employer] [facility] [id number] [address] [place] [address] * CLOSTRIDIUM DIFFICILE TOXIN (06/09/2014 3:54 PM CDT) C DIFF TOXIN PCR RESULT Negative Negative [facility] LABORATORY [facility] C DIFF TOXIN PCR SOURCE Stool [facility] LABORATORY [facility] Stool 06/09/2014 3:54 PM CDT 06/09/2014 6:06 PM CDT Comment:STOOL Katie Steele MD MICROBIOLOGY - GENER AL ORDERABLES [facility] [employer] [facility]# [id number] [address] [place] [address] documented in this encounter Visit Diagnoses Not [...] RN) documented in this encounter Care Teams Senior Manager Asset Protection Relationship Specialty Start Date End Date Martin Kelley MD PCP - General Internal Medicine 02/16/12 08/14/17 documented as of this encounter
--- OUTSIDE RECORDS SUMMARY | 2024-10-24 06:41 | XMS_ITS | Encounter Summary ---
Author Organization [facility] Address [address] [place] [address] Care Team Providers Care Tipple Boss Name Role Phone Martin Kelley MD Primary Care Provider [phone] Encounter Details Date Type Department Care Team (Late st Contact Info) Description 07/09/2014 Orders Only [facility] GASTROENTEROLOGY [address] [place] [address] Social History Tobacco Use Types [...] [facility] [place] [address] [place] [address] Kitty Dover, [facility] [address] [place] [address] documented as of this encounter Visit Diagnoses Not on filedocumented in this encounter Care Teams Tipple Boss Relationship Specialty Start Date End Date Martin Kelley MD PCP - General Internal Medicine 02/16/12 08/14/17 documented as of this encounter
--- OUTSIDE RECORDS SUMMARY | 2024-10-24 06:41 | XMS_ITS | Encounter Summary ---
Author Organization [facility] Address [address] [place] [address] Care Team Providers Care Associate Juvenile Court Judge Name Role Phone Martin Kelley MD Primary Care Provider [phone] Reason for Visit * Reason Onset Date Comments New Prescription Request 08/03/2015 Encounter Details Date Type Department Care Team (Late st Contact Info) Description 08/03/2015 Telephone [facility] GASTROENTEROLOGY [address] [facility] [place] [address] Lane Ryan MD NO [...] [phone] documented in this encounter Plan of Treatment Upcoming Encounters Date Type Department Care Team (Late st Contact Info) Description 02/13/2025 10:30 AM CDT Office Visit [facility] IBD and Gastroenterology Center [place] [address] [place] [address] Kitty Dover, [facility] [address] [place] [address] [place] [address] documented as of this encounter Visit Diagnoses Not on filedocumented in this encounter Care Teams Associate Juvenile Court Judge Relationship Specialty Start Date End Date Martin Kelley MD PCP - General Internal Medicine 02/16/12 08/14/17 documented as of this encounter
--- OUTSIDE RECORDS SUMMARY | 2024-10-24 06:41 | XMS_ITS | Encounter Summary ---
Author Organization [facility] Address [address] [place] [address] Care Team Providers Care Ward Supervisor Name Role Phone Martin Kelley MD Primary Care Provider [phone] Encounter Details Date Type Department Care Team (Late st Contact Info) Description 07/17/2014 Orders Only [facility] GASTROENTEROLOGY [address] [place] [address] Lane Ryan MD NO ADDRESS [...] [place] [address] [place] [address] Kitty Dover, [facility] [address] [place] [address] documented as of this encounter Procedures Procedure Name Priority Date/Time Associated Diagnosis Comments CROHN'S PROGNOSTIC PANEL Routine 06/26/2014 documented in this encounter Results * CROHN'S PROGNOSTIC PANEL (06/26/2014) Blood specimen (specimen) Lane Ryan MD CHEMISTRY ORDERABLES [facility] LABORATORY SERVICES [facility]# [id number] [address] [place] [address] documented in this encounter Visit Diagnoses Not on filedocumented in this encounter Care Teams Ward Supervisor Relationship Specialty Start Date End Date Martin Kelley MD PCP - General Internal Medicine 02/16/12 08/14/17 documented as of this encounter
--- OUTSIDE RECORDS SUMMARY | 2024-10-24 06:41 | XMS_ITS | Encounter Summary ---
Author Organization [facility] Address [address] [place] [address] Care Team Providers Care Manufacturing Executive Name Role Phone Martin Kelley MD Primary Care Provider [phone] Encounter Details Date Type Department Care Team (Late st Contact Info) Description 08/17/2012 Abstract [facility] GASTROENTEROLOGY [address] [facility] [address] [place] [address] Lane Ryan MD NO ADDRESS [...] [facility] IBD and Gastroenterology Center [place] [address] [facility] [address] [place] [address] Kitty Dover ANP [address] [facility] [address] [place] [address] documented as of this encounter Visit Diagnoses Not on filedocumented in this encounter Care Teams Manufacturing Executive Relationship Specialty Start Date End Date Martin Kelley MD PCP - General Internal Medicine 02/16/12 08/14/17 documented as of this encounter
--- OUTSIDE RECORDS SUMMARY | 2024-10-24 06:41 | XMS_ITS | Encounter Summary ---
Author Organization [facility] Address [address] [place] [address] Care Team Providers Care Senior It Business Analyst Name Role Phone Martin Kelley MD Primary Care Provider [phone] Reason for Visit * Reason Comments Ulcerative Colitis Encounter Details Date Type Department Care Team (Latest Contact Info) Description 10/08/2015 10:30 AM ADVERTISING ACCOUNT EXECUTIVE Office Visit [facility] GASTR[facility]OLOGY [address] [facility] [address] [place] [address] Lane Ryan MD NO ADDRESS [...] Comments Blood Pressure 161/83 10/08/2015 10:06 AM ADVERTISING ACCOUNT EXECUTIVE Pulse 94 10/08/2015 10:06 AM ADVERTISING ACCOUNT EXECUTIVE Temperature - - Respiratory Rate - - Oxygen Saturation 97% 10/08/2015 10:06 AM ADVERTISING ACCOUNT EXECUTIVE Inhaled Oxygen Concentration - - Weight 86 kg (189 lb 9.6 oz) 10/08/2015 10:06 AM ADVERTISING ACCOUNT EXECUTIVE Height 175.3 cm (5' 9 ) 10/08/2015 10:06 AM ADVERTISING ACCOUNT EXECUTIVE Body Mass Index 28 10/08/2015 10:06 AM ADVERTISING ACCOUNT EXECUTIVE documented in this encounter Progress Notes * [...] Humira Patient reports routine lab studies at [facility] were normal and will get those records for me. Plan endoscopy next summer. This note was transcribed using Lumense computerized voice recognition without a human spindle setter. This report may or may not have been adjusted for typographical, grammatical and syntax errors. Lilian. Lane Ryan MD RTISING ACCOUNT EXECUTIVE documented in this encounter Plan of Treatment Upcoming Encounters Date Type Department Care Team (Late st Contact Info) Description 02/13/2025 10:30 AM CDT Office Visit [facility] IBD and Gastroenterology Center [place] [address] [place] [address] Kitty Dover ANP [address] [place] [address] [place] [address] documented as of this encounter Visit Diagnoses Diagnosis IBD (inflammatory bowel disease)- Primary Other and unspecified noninfectious gastroenteritis and colitis documented in this encounter Care Teams Senior It Business Analyst Relationship Specialty Start Date End Date Martin Kelley MD PCP - General Internal Medicine 02/16/12 08/14/17 documented as of this encounter
--- OUTSIDE RECORDS SUMMARY | 2024-10-24 06:41 | XMS_ITS | Encounter Summary ---
Author Organization [facility] Address [address] [place] [address] Care Team Providers Care Stock Letterer Name Role Phone Martin Kelley MD Primary Care Provider [phone] Reason for Visit * Reason Onset Date Comments Medication Problem 12/05/2014 Encounter Details Date Type Department Care Team (Late st Contact Info) Description 12/05/2014 Telephone [facility] GASTROENTEROLOGY [address] [facility] [address] [place] [address] Lane Ryan MD NO ADDRESS [...] Telephone Encounter - Lane Ryan MD - 12/09/2014 12:13 PM CST Ordered weekly [place] [facility]F TIVE ART THERAPIST * Telephone Encounter - Ada Tan - 12/05/2014 9:33 AM CST We rec'd a fax from [facility] they are trying to confirm humira script pt is telling them it should be for every week. If pt should be every week please e- scribe new instructions TIVE ART THERAPIST documented in this encounter Plan of Treatment Upcoming Encounters Date Type Department Care Team (Late st Contact Info) Description 02/13/2025 10:30 AM CDT Office Visit [facility] IBD and Gastroenterology Center [place] [address] [place] [address] Kitty Dover, [facility] [address] [place] [address] [place] [address] documented as of this encounter Visit Diagnoses Diagnosis Ulcerative colitis, other complication- Primary documented in this encounter Care Teams Stock Letterer Relationship Specialty Start Date End Date Martin Kelley MD PCP - General Internal Medicine 02/16/12 08/14/17 documented as of this encounter
--- OUTSIDE RECORDS SUMMARY | 2024-10-24 06:42 | XMS_ITS | Encounter Summary ---
Author Organization [facility] Address [address] [place] [address] Care Team Providers Care Cdl Program Coordinator Name Role Phone Martin Kelley MD Primary Care Provider [phone] Reason for Visit * Reason Comments Abdominal Pain Pt states he had a c olonoscopy last . Started having fever and chills on Monday. States he went to [facility] on Monday and was treated for dehydration after developing diarrhea on Monday. Continues to have diarrhea, abdominal pain and nausea. States his PMD told him today that his XR report showed an obstruction. * Auth/Cert (Routine) - Closed Specialty Diagnoses / Procedures Referred By Lambert pizarro Referred To Contact Emergency Medicine [facility] Emergency Dept [address] [place] [address] Referral ID Status Reason Start Date Expiration Date Visits Re quested Visits Authorized [id number] Closed 1 1 Encounter Details Date Type Department Care Team (Late st Contact Info) Description 02/22/2012 6:54 PM CDT - 03/03/2012 10:00 AM CDT Hospital Encounter [facility] Medicine [address] [place] [address] Reji Noel MD NO ADDRESS ON FILE Marcela Carter MD [address] [facility] [address] [address] Richelle Gambino MD [address] [facility] [place] [address] Sierra Yin MD [address] [facility] [address] [place] [address] Gladys Calvo MD [address] [place] [address] [place] [address] Ulcerative colitis Discharge Disposition: Home or [...] Reyna MD - 03/03/2012 7:35 AM CDT [facility] Adult Hospitalist Discharge Summary Mukul Huber 41 y.o. male 1970 CSN: [id number] Date of Admission: 02/22/2012 Date of Discharge: [...] - 03/03/2012 7:35 AM CDT [facility] seen and examined I [...] days . Cont oral steroids Gladys Nichole [phone] documented in this encounter Discharge Instructions * Discharge Instructions* Germania Farmer RN - 03/03/2012 9:57 AM CDT Your discharging physician is Gladys Nichole MD and may be reached at [phone] for any questions or concerns until you see your doctor. FOLLOW-UP Follow up with Martin Kelley MD in 2 Week(s) and follow up with Dr. Ryan in 10 days, call to make appointment [phone] Prescriptions given? Yes Please continue to take [...] is not relieved by nitroglycerin. Smoking Exposure: [facility] encourages all patients to decrease risks associated with smoking and second hand smoke exposure. If you smoke you are advised to quit. Ask your health care provider for advice if you need assistance to stop smoking. Avoid second-hand smoke exposure and do not let people smoke in your home. Please call [phone], our pulmonary rehabilitation department, to learn more [...] no further needs. For questions or concerns [phone] * Lora Pérez MD - 03/02/2012 6:24 [...] Lora Pérez MD PGY-1, Internal Medicine Pager: [phone] * Trevor Toledo MD - 03/02/2012 4:53 [...] Sotelo MD - 03/02/2012 1:04 PM CDT [place], [place] [address] Initial Progress Note CSN: [id number] DATE OF SERVICE: I have been seeing [...] to follow the patient peripherally. PLR:MEDQ DID: [id number] Dictated by: Willian Sotelo MD * Rachell [...] AAOx3, no focal motor or sensory deficits, snag grinder 2-12 grossly intact Data Base: Results for orders placed during the hospital encounter of 02/22/12 (from the past 24 hour(s)) POC GLUCOSE Component Value Range POC GLUCOSE 189 (*) 65 - 99 (mg/dL) CLIA LICENSE [id number] CLOSTRIDIUM DIFFICILE TOXIN Component Value Range C DIFF TOXIN PCR RESULT Negative Negative C DIFF TOXIN PCR SOURCE Stool POC GLUCOSE Component Value Range POC GLUCOSE 298 (*) 65 - 99 (mg/dL) CLIA LICENSE [id number] POC GLUCOSE Component Value Range POC GLUCOSE 256 (*) 65 - 99 (mg/dL) CLIA LICENSE [id number] CBC WITH DIFFERENTIAL Component Value Range WBC [...] (*) 65 - 99 (mg/dL) CLIA LICENSE [id number] Lab Results Component Value Date CRP 4.7* [...] - 03/02/2012 9:13 AM CDT [facility] I have independently seen and examined I [...] d/c at am per surgery Gladys Nichole [phone] D/w at bedside . * Trevor Toledo [...] AAOx3, no focal motor or sensory deficits, snag grinder 2-12 grossly intact Data Base: Results for orders placed during the hospital encounter of 02/22/12 (from the past 24 hour(s)) POC GLUCOSE Component Value Range POC GLUCOSE 240 (*) 65 - 99 (mg/dL) CLIA LICENSE [id number] POC GLUCOSE Component Value Range POC GLUCOSE 231 (*) 65 - 99 (mg/dL) CLIA LICENSE [id number] C-REACTIVE PROTEIN Component Value Range CRP 4.7 [...] (*) 65 - 99 (mg/dL) CLIA LICENSE [id number] POC GLUCOSE Component Value Range POC GLUCOSE 189 (*) 65 - 99 (mg/dL) CLIA LICENSE [id number] Lab Results Component Value Date CRP 4.7* [...] Nichole MD - 03/01/2012 1:18 PM CDT [facility] Hospitalist I have independently seen and examined [...] Vanco po ? Follow CRP. Gladys Nichole [phone] * Willian Sotelo MD - 02/29/2012 2:34 PM CDT [place], [place] [address] Initial Progress Note CSN: [id number] DATE OF SERVICE: 02/29/2012 I was present for the endoscopy of the distal ileal and pouch performed by Dr. Ryan yesterday and we have been in consultation since that time. The findings, which I was able to compare with my recollection of a prior endoscopic procedure on the 15 of February showed a dramatic worsening of the condition. The prior inflammation was a jgd-er-avlapcpc mucosal inflammation with no evidence of ulcers. [...] him closely with Dr. Ryan. PLR:MEDQ DID: [id number] Dictated by: Willian Sotelo MD * Rachell [...] AAOx3, no focal motor or sensory deficits, snag grinder 2-12 grossly intact Data Base: Results for orders placed during the hospital encounter of 02/22/12 (from the past 24 hour(s)) POC GLUCOSE Component Value Range POC GLUCOSE 218 (*) 65 - 99 (mg/dL) CLIA LICENSE [id number] POC GLUCOSE Component Value Range POC GLUCOSE 205 (*) 65 - 99 (mg/dL) CLIA LICENSE [id number] CBC WITH DIFFERENTIAL Component Value Range WBC [...] (*) 65 - 99 (mg/dL) CLIA LICENSE [id number] POC GLUCOSE Component Value Range POC GLUCOSE 225 (*) 65 - 99 (mg/dL) CLIA LICENSE [id number] Lab Results Component Value Date CRP 8.8* [...] - 02/29/2012 1:14 PM CDT [facility] Patient seen and examined with [...] with GI. Sierra Yin MD [facility] Page [phone] * Katie Ryan MD - 02/29/2012 11:09 [...] AAOx3, no focal motor or sensory deficits, snag grinder 2-12 grossly intact Data Base: Results for orders placed during the hospital encounter of 02/22/12 (from the past 24 hour(s)) POC GLUCOSE Component Value Range POC GLUCOSE 221 (*) 65 - 99 (mg/dL) CLIA LICENSE [id number] POC GLUCOSE Component Value Range POC GLUCOSE 394 (*) 65 - 99 (mg/dL) CLIA LICENSE [id number] CBC WITH MANUAL DIFFERENTIAL Component Value Range [...] (*) 65 - 99 (mg/dL) CLIA LICENSE [id number] POC GLUCOSE Component Value Range POC GLUCOSE 249 (*) 65 - 99 (mg/dL) CLIA LICENSE [id number] Lab Results Component Value Date CRP 8.8* [...] in future. Pain control - fair. Continue Dixon. Possibility of using biological agents discussed with [...] - 02/28/2012 3:12 PM CDT [facility] Att[facility] Patient seen and examined with [...] at home Sierra Yin MD [facility] Page [phone] * Ammy Adams - 02/28/2012 2:17 PM CDT Home Health referral received from [facility]. Thank you Ammy Admas * Trevor Toledo MD - 02/27/2012 5:01 [...] Andrade MD - 02/27/2012 10:48 AM CDT [facility] Med Progress Note Admit Date: 02/22/2012 [...] AAOx3, no focal motor or sensory deficits, snag grinder 2-12 grossly intact Data Base: Results for [...] in future. Pain control - fair. Continue Dixon. Plan to do inpatient colonoscopy by GI [...] Yin MD - 02/27/2012 10:48 AM CDT [facility] Attending Note Patient seen and examined with [...] A/P as written by Sierra Christian MD [facility] Page [phone] * Katie Ryan MD - 02/26/2012 2:31 [...] due to advancement to full liquid diet. Dixon tolerated with very little perspiration. Valium works [...] AAOx3, no focal motor or sensory deficits, snag grinder 2-12 grossly intact Data Base: Results for [...] in future. Pain control - fair. Continue Dixon. Plan to do inpatient colonoscopy by GI. [...] Andrade MD - 02/25/2012 7:48 AM CDT [facility] Med Progress Note Admit Date: 02/22/2012 [...] AAOx3, no focal motor or sensory deficits, snag grinder 2-12 grossly intact Data Base: Results for [...] - 02/25/2012 7:48 AM CDT [facility] Patient seen and examined with [...] both Percocet and Dilaudid. Will change to Dixon and observe. 2. Malnutrition- mild to moderate. Pre-albumin is low. Start TPN until adequate diet allowed by GI and tolerated. 3. Disposition: home some time next week depends upon clinical progress. Sierra Yin MD [facility] Page [phone] * Magy Short RN - 02/24/2012 3:08 [...] Sotelo MD - 02/24/2012 3:04 PM CDT [place], [place] [address] Initial Progress Note CSN: [id number] DATE OF SERVICE: 02/24/2012 Vital signs are [...] will be covering for me. PLR:MEDQ DID: [id number] Dictated by: Willian Sotelo MD * Rachell [...] AAOx3, no focal motor or sensory deficits, snag grinder 2-12 grossly intact Data Base: Results for [...] - 02/24/2012 8:54 AM CDT [facility] Att[facility] Note Patient seen and examined with [...] nutrition. . Sierra Yin MD [facility] Page [phone] * Trevor Toledo MD - 02/24/2012 8:42 [...] support during this acute phase. 3. Consider SAFETY SPEC for pain management given frequency of narcotic [...] Output 200 ml Net 2838 ml Trevor Toledo MD 02/24/2012 * Rachell Reyna MD - 02/23/2012 1:34 PM CDT [facility] Med Progress Note Admit Date: 02/22/2012 [...] AAOx3, no focal motor or sensory deficits, snag grinder 2-12 grossly intact Data Base: Results for [...] - 02/23/2012 1:34 PM CDT [facility] Patient seen and examined with [...] from GI and surgery. Sierra Yin MD [facility] Hospitalist Page [phone] * Donna Hernandez - 02/23/2012 10:27 AM CDT The dealer support technician has clarified the prior to admission [...] Butler DO - 02/23/2012 2:06 AM CDT [facility] Resident H&P Patient Name: Mukul Huber Courtesy [...] 12/08/2009 COLONOSCOPY performed by WILLIAN SOTELO at [facility] GI LAB ??? Pr sigmoidoscopy,diagnostic 02/16/2012 SIGMOIDOSCOPY FLEXIBLE performed by Willian Sotelo MD at [facility] ??? Pr endoscopy of bowel pouch 02/16/2012 POUCHOSCOPY performed by Willian Sotelo MD at [facility] Outpt Meds: Prior to Admission [...] Plan d/w Dr. Immanuel Butler D.O. 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 Medication Allergies:No Known Allergies Current Medications: Prescriptions [...] 12/08/2009 COLONOSCOPY performed by WILLIAN SOTELO at [facility] GI LAB ??? Pr sigmoidoscopy,diagnostic 02/16/2012 SIGMOIDOSCOPY FLEXIBLE performed by Willian Sotelo MD at [facility] ??? Pr endoscopy of bowel pouch 02/16/2012 POUCHOSCOPY performed by Willian Sotelo MD at [facility] Social History: ; works as [...] Constitutional: see HPI HEENT: Denies vision loss, COCOPAH, dental work, No trouble swallowing Resp: see HPI CV: denies previous [place], palpitations, syncope, PND, orthopnea, or LE edema, [...] this encounter Procedure Notes * Stl Scanning, [facility] - 03/07/2012 1:59 PM CDTAssociated Order(s): GI REPORT Electronically signed by Reggie [facility] Stl Digital Hardware Design Engineer Incoming at 03/07/2012 1:59 PM CDT * Stl Scanning, [facility] - 02/28/2012 3:53 PM CDTAssociated Order(s): EKG 12-LEAD * Katie Ryan MD - 02/28/2012 1:57 PM CDTAssociated Order(s): GI REPORT [place], [place] [address] Gastroenterology CSN: [id number] DATE OF SERVICE: 02/28/2012 ENDOSCOPIC PROCEDURE HISTORY [...] for C. diff is negative. JSF:MEDQ DID: [id number] Dictated by: Katie Ryan MD documented in [...] able to get himself positioned comfortably. Notify project scientist if skin condition deteriorates. GI following, Surg [...] Physician requesting Consult: Reason for consult: Pouchitis. [place] Patient: Mukul Huber is a 41 yo [...] and he seen in the ED at [facility] where he was treated for dehydration and was sent home with pain killers and a PPI. After going home he began having subjective fevers, chills. He denies any sick contacts. He does report some blood in his stool every time he stools now. He reports that his frequency of stools has also increased. He was seen in [facility] Ed where he had a CT abdomen [...] 12/08/2009 COLONOSCOPY performed by WILLIAN SOTELO at [facility] GI LAB ??? Pr sigmoidoscopy,diagnostic 02/16/2012 SIGMOIDOSCOPY FLEXIBLE performed by Willian Sotelo MD at [facility] ??? Pr endoscopy of bowel pouch 02/16/2012 POUCHOSCOPY performed by Willian Sotelo MD at [facility] Family History Problem Relation Age [...] Ryan. Tiburcio Toledo MD Internal Medicine R2 ([facility]) [phone] * Willian Sotelo MD - 02/23/2012 2:50 PM CDT [place], [place] [address] Consultation CSN: [id number] DATE OF SERVICE: REASON FOR CONSULTATION Abdominal [...] at that point, but he went to [facility] ER where he was told that [...] The abdomen is generally soft. There is nwih-nh-vhrvcnlt tenderness to deep palpation in both lower [...] to resort to this option. PLR:MEDQ DID: [id number] Dictated by: Willian Sotelo MD documented in [...] Ryan MD * Operative Report - Katie Ryan MD - 02/28/2012 11:16 AM CDT EGD [...] Huber Age: 41 y.o. Sex: male CSN: [id number] Procedure: Procedure(s): COLONOSCOPY ESOPHAGOGASTRODUODENOSCOPY Surgeons/Assistants: Surgeon(s) and [...] 12/08/2009 COLONOSCOPY performed by WILLIAN SOTELO at [facility] GI LAB ??? Pr sigmoidoscopy,diagnostic 02/16/2012 SIGMOIDOSCOPY FLEXIBLE performed by Willian Sotelo MD at [facility] ??? Pr endoscopy of bowel pouch 02/16/2012 POUCHOSCOPY performed by Willian Sotelo MD at [facility] History Substance Use Topics ??? [...] PM CDT HISTORY OF PRESENT ILLNESS Mukul Hubre, a 41 y.o. male presents to the [...] 12/08/2009 COLONOSCOPY performed by WILLIAN SOTELO at [facility] GI LAB ??? Pr sigmoidoscopy,diagnostic 02/16/2012 SIGMOIDOSCOPY FLEXIBLE performed by Willian Sotelo MD at [facility] ??? Pr endoscopy of bowel pouch 02/16/2012 POUCHOSCOPY performed by Willian Sotelo MD at [facility] Family History Problem Relation Age [...] Abdominal pain ??? 276.1 Hyponatremia CASE DISCUSSED [facility] PATIENT COUNSELING Diagnostics reviewed and questions answered. [...] it was mucus. Pt was seen at [facility] 2 days ago and tx for dehydration. [...] Notes * Scanned Form - Stl Scanning, [facility] - 03/07/2012 1:59 PM CDT Electronically signed by Interface, [facility] Stl Digital Hardware Design Engineer Incoming at 03/07/2012 1:59 PM CDT * Scanned Form - Stl Scanning, [facility] - 03/07/2012 1:59 PM CDT Electronically signed by Interface, [facility] Stl Digital Hardware Design Engineer Incoming at 03/07/2012 1:59 PM CDT * Patient Instructions - Stl Scanning, [facility] - 03/07/2012 1:59 PM CDT Electronically signed by Interface, [facility] Stl Digital Hardware Design Engineer Incoming at 03/07/2012 1:59 PM CDT * Scanned Form - Stl Scanning, [facility] - 03/07/2012 1:59 PM CDT Electronically signed by Interface [facility] Stl Digital Hardware Design Engineer Incoming at 03/07/2012 1:59 PM CDT * Care Plan - Germania Farmer RN - 03/03/2012 9:55 AM CDT Problem: General Plan of Care (Adult, Obstetrics) Goal: Plan of Care Review (Adult, Obstetrics) The patient and/or their territory service representative will communicate an understanding of their [...] Review (Adult, Obstetrics) The patient and/or their territory service representative will communicate an understanding of their [...] Level Patient will demonstrate the desired outcomes. Dixon given for pain this shift, verbalizes relief [...] Goal (Adult, Obstetrics) The patient and/or their territory service representative will achieve their patient-specific goals related [...] Review (Adult, Obstetrics) The patient and/or their territory service representative will communicate an understanding of their [...] Patient lives with . 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 Potential for home TPN discussed. Notified Ammy with [facility] [phone] to follow for possiblehome TPN need. * [...] Review (Adult, Obstetrics) The patient and/or their territory service representative will communicate an understanding of their [...] glucose elevated, insulin given per sliding scale, microsoft solutions architect MD notified no new orders received, will [...] Review (Adult, Obstetrics) The patient and/or their territory service representative will communicate an understanding of their [...] Review (Adult, Obstetrics) The patient and/or their territory service representative will communicate an understanding of their [...] If patient's respiratory condition changes, please call [phone]. * Care Plan - Nils Dover (Two), Student Respiratory - 02/26/2012 9:03 AM CDT Problem: General Plan of Care (Adult, Obstetrics) Goal: Individualization/Patient-Specific Goal (Adult, Obstetrics) The patient and/or their territory service representative will achieve their patient-specific goals related [...] Goal (Adult, Obstetrics) The patient and/or their territory service representative will achieve their patient-specific goals related [...] Goal (Adult, Obstetrics) The patient and/or their territory service representative will achieve their patient-specific goals related [...] Goal (Adult, Obstetrics) The patient and/or their territory service representative will achieve their patient-specific goals related [...] Goal (Adult, Obstetrics) The patient and/or their territory service representative will achieve their patient-specific goals related [...] observed. * Scanned Form - Stl Scanning, [facility] - 02/24/2012 11:03 AM CDT * Care Plan - Philly Mccoy RN - 02/24/2012 4:53 AM CDT Problem: General Plan of Care (Adult, Obstetrics) Goal: Individualization/Patient-Specific Goal (Adult, Obstetrics) The patient and/or their territory service representative will achieve their patient-specific goals related [...] Review (Adult, Obstetrics) The patient and/or their territory service representative will communicate an understanding of their plan of care. Outcome: Progressing RT Assess & Treat Note Plan: Patient will remain on Duoneb Q6prn for bronchodilation and deep breathe and cough for airwayclearance and lung expansion. Patient will have follow up in 72 hours per protocol. 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 2. Only licensed Respiratory [...] usage 3. Other indications stated in the [employer]???s Clinical Practice Guidelines [...] Actual/Predicted % % % 3. Respiratory Therapist Stripe Matcher is to evaluate and score the patient???s [...] regimen will be reassessed after 72 hours [place] the patient???s home frequency and if possible [...] Pharmacy Policy, Section: APPROVED THERAPEUTIC INTERCHANGES FOR [facility], Title: Beta Agonists Patients taking home regimen [...] Goal (Adult, Obstetrics) The patient and/or their territory service representative will achieve their patient-specific goals related [...] Visit [facility] [place] [address] [place] [address] Kitty Dover, ANP [address] [place] [address] documented as of this encounter [...] Ryan MD - 02/28/2012 1:57 PM CDT [place], [place] [address] Gastroenterology CSN: [id number] DATE OF SERVICE: 02/28/2012 ENDOSCOPIC PROCEDURE HISTORY [...] stool for C. diff is negative. ZANEF:SHWETHA [id number] Dictated by: Katie Ryan MD Stl Scanning, Him - 03/07/2012 1:59 PM CDT Katie Ryan MD GI PROCEDURE [facility] * (ABNORMAL) CBC WITH DIFFERENTIAL (03/03/2012 4:25 AM CDT) WBC 16.5(H) 4.0 - 9.8 K/uL [facility] RBC 4.07(L) 4.50 - 5.40 M/uL [facility] HEMOGLOBIN 11.4(L) 13.6 - 16.5 g/dL [facility] HEMATOCRIT 36.1(L) 40.0 - 48.0 % [facility] MCV 88.7 82.0 - 99.0 fL [facility] MCH 28.0 27.2 - 32.6 pg [facility] MCHC 31.6 31.5 - 35.5 % [facility] PLATELETS 574(H) 140 - 350 K/uL [facility] MPV 9.1(L) 9.3 - 12.4 fL [facility] RDW 13.9 11.5 - 14.5 % [facility] RDW-STDEV 45.5 37.1 - 48.7 fL [facility] NEUTROPHILS, SEG 93(H) 45 - [...] 2 % [facility] PLATELET EST. Consistent w/ count Normal [facility] NEUTROPHIL ABSOLUTE 15.51(H) 1.90 - 7.00 K/uL [facility] LYMPHOCYTE ABSOLUTE 0.33(L) 0.70 - 4.50 K/uL [facility] MONOCYTE ABSOLUTE 0.66 0.10 - 1.30 K/uL [facility] EOSINOPHIL ABSOLUTE 0.00 0.00 - 0.70 K/uL [facility] BASOPHILS ABSOLUTE 0.00 0.00 - 0.20 K/uL [facility] RBC MORPHOLOGY Normal Normal [facility] Blood specimen (specimen) 03/03/2012 4:25 AM CDT 03/03/2012 5:30 AM CDT Gladys Calvo MD HEMATOLOGY O RDERABLES [facility] CLIA# [id number] [address] [place] [address] * (ABNORMAL) POC GLUCOSE (03/02/2012 8:48 PM CDT) GLUCOSE POC 129(H) 65 - 99 mg/dL [facility] CLIA LICENSE [id number] [facility] [facility] Blood specimen (specimen) 03/02/2012 8:48 PM CDT 03/02/2012 8:48 PM CDT Gladys Calvo MD POINT OF CAR E TESTING Performing Organization Address [facility] [place]/[facility] Co de Phone Number [facility] CLIA# [id number] [address] [place] [address] * (ABNORMAL) POC GLUCOSE (03/02/2012 5:56 PM CDT) GLUCOSE POC 129(H) 65 - 99 mg/dL [facility] CLIA LICENSE [id number] [facility] Blood specimen (specimen) 03/02/2012 5:56 PM CDT 03/02/2012 5:56 PM CDT Gladys Calvo MD POINT OF CAR E TESTING [facility]# [id number] [address] [place] [address] * (ABNORMAL) POC GLUCOSE (03/02/2012 12:17 PM CDT) [facility]OC 302(H) 65 - 99 mg/dL [facility] CLIA LICENSE [id number] [facility] Blood specimen (specimen) 03/02/2012 12:17 PM CDT 03/02/2012 12:17 PM CDT Gladys Calvo MD POINT OF CAR E TESTING Performing Organization Address [facility] [place]/[facility] Co de Phone Number [facility] CLWA# [id number] [address] [place] [address] * (ABNORMAL) C-REACTIVE PROTEIN (03/02/2012 11:00 AM CDT) [facility] CRP 1.9(H) 0.0 - 0.8 mg/dL [facility] Blood specimen (specimen) 03/02/2012 11:00 AM CDT 03/02/2012 3:23 PM CDT Gladys Calvo MD CHEMISTRY OR DERABLES Performing Organization Address [facility] [place]/[facility]/ZIP Co de Phone Number [facility]# [id number] [address] [place] [address] * (ABNORMAL) BASIC METABOLIC PANEL (03/02/2012 11:00 AM CDT) Pathologist [facility] SODIUM 133(L) 135 - 145 mmol/L [facility] POTASSIUM 4.8 3.5 - 4.9 mmol/L [facility] CHLORIDE 97 96 - 108 mmol/L [facility] CO2 28 22 - 30 mmol/L [facility] CALCIUM 8.5(L) 8.6 - 10.2 mg/dL [facility] BUN 18 6 - 20 mg/dL [facility] CREATININE 0.60(L) 0.67 - 1.17 mg/dL [facility] GLUCOSE 283(H) 65 - 99 mg/dL [facility] GFR, >60 >=60 mL/min/1. 7 sq meter [facility] GFR >60 >=60 mL/min/1. 7 sq meter [facility] Comment: GFR is calculated using the IDMS-Traceable Modification of Diet in Renal Disease (MDRD) Study formula and is only valid for patients 18 years or older. Further interpretative information is available in the Laboratory Services Policy Manual on the [facility] Intranet at: [email or web address]/ Blood specimen (specimen) 03/02/2012 11:00 AM CDT 03/02/2012 11:09 AM CDT Gladys Calvo MD CHEMISTRY OR DERABLES [facility] CLIA# [id number] [address] [place] [address] * (ABNORMAL) POC GLUCOSE (03/02/2012 6:01 AM CDT) GLUCOSE POC 160(H) 65 - 99 mg/dL [facility] CLIA LICENSE [id number] [facility] Blood specimen (specimen) 03/02/2012 6:01 AM CDT 03/02/2012 6:01 AM CDT Gladys Calvo MD POINT OF CAR E TESTING [facility] CLIA# [id number] [address] [place] [address] * (ABNORMAL) CBC WITH DIFFERENTIAL (03/02/2012 6:00 AM CDT) WBC 16.0(H) 4.0 - 9.8 K/uL [facility] RBC 3.72(L) 4.50 - 5.40 M/uL [facility] HEMOGLOBIN 10.5(L) 13.6 - 16.5 g/dL [facility] HEMATOCRIT 32.9(L) 40.0 - 48.0 % [facility] MCV 88.4 82.0 - 99.0 fL [facility] MCH 28.2 27.2 - 32.6 pg [facility] MCHC 31.9 31.5 - 35.5 % [facility] PLATELETS 503(H) 140 - 350 K/uL [facility] MPV 9.0(L) 9.3 - 12.4 fL [facility] RDW 13.9 11.5 - 14.5 % [facility] RDW-STDEV 45.1 37.1 - 48.7 fL [facility] NEUTROPHILS, SEG 87(H) 45 - 70 % [facility] LYMPHOCYTES 5(L) 16 - 45 % [facility] MONOCYTES 5 3 - 13 % [facility] EOSINOPHILS 0 0 - 7 % [facility] BASOPHILS 0 0 - 2 % [facility] METAMYELOCYTE 2(H) <=0 % [facility] MYELOCYTES 1(H) <=0 % [facility] PLATELET EST. Consistent w/ count Normal [facility] NEUTROPHIL ABSOLUTE 13.92(H) 1.90 - 7.00 K/uL [facility] LYMPHOCYTE ABSOLUTE 0.80 0.70 - 4.50 K/uL [facility] MONOCYTE ABSOLUTE 0.80 0.10 - 1.30 K/uL [facility] EOSINOPHIL ABSOLUTE 0.00 0.00 - 0.70 K/uL [facility] BASOPHILS ABSOLUTE 0.00 0.00 - 0.20 K/uL [facility] ANISOCYTOSIS Slight [facility] POIKILOCYTES Slight [facility] Blood specimen (specimen) 03/02/2012 6:00 AM CDT 03/02/2012 6:13 AM CDT Sierra Yin MD HEMATOLOGY ORDERABLE S [facility] CLIA# [id number] [address] [place] [address] * (ABNORMAL) POC GLUCOSE (03/01/2012 11:48 PM CDT) GLUCOSE POC 256(H) 65 - 99 mg/dL [facility] CLIA LICENSE [id number] [facility] Blood specimen (specimen) 03/01/2012 11:48 PM CDT 03/01/2012 11:48 PM CDT Gladys Calvo MD POINT OF CAR E TESTING Performing Organization Address City/[facility]/ZIP Co de Phone Number [facility] CLIA# [id number] [address] [place] [address] * (ABNORMAL) POC GLUCOSE (03/01/2012 5:38 PM CDT) GLUCOSE POC 298(H) 65 - 99 mg/dL [facility] CLIA LICENSE [id number] [facility] Blood specimen (specimen) 03/01/2012 5:38 PM CDT 03/01/2012 5:38 PM CDT Gladys Calvo MD POINT OF CAR E TESTING [facility] CLIA# [id number] [address] [place] [address] * CLOSTRIDIUM DIFFICILE TOXIN (03/01/2012 2:51 PM CDT) C DIFF TOXIN PCR RESULT Negative Negative [facility] C DIFF TOXIN PCR SOURCE Stool [facility] Stool specimen (specimen) 03/01/2012 2:51 PM CDT 03/01/2012 2:55 PM CDT Comment:STOOL Gladys Calvo MD MICROBIOLOGY - GENERAL ORDERABLES Performing Organization Address [facility] [place]/State/ZIP Co de Phone Number [facility] CLIA# [id number] [address] [place] [address] * (ABNORMAL) POC GLUCOSE (03/01/2012 11:45 AM CDT) GLUCOSE POC 189(H) 65 - 99 mg/dL [facility] CLIA LICENSE [id number] [facility] Blood specimen (specimen) 03/01/2012 11:45 AM CDT 03/01/2012 11:45 AM CDT Gladys Calvo MD POINT OF CAR E TESTING Performing Organization Address [facility] [place]/[facility] Co de Phone Number [facility] CLIA# [id number] [address] [address] [place] [address] * IP CONSULT TO WOUND CARE (03/01/2012 [...] able to get himself positioned comfortably. ??Notify project scientist if skin condition deteriorates. ??GI following, ??Surg [...] is able to gethimself positioned comfortably. Notify project scientist if skin conditiondeteriorates. GI following, Surg following. Katie Ryan MD INPATIENT CONSULT OR DERABLES * (ABNORMAL) POC GLUCOSE (03/01/2012 5:53 AM CDT) [facility]OC 229(H) 65 - 99 mg/dL [facility] CLIA LICENSE [id number] [facility] Blood specimen (specimen) 03/01/2012 5:53 AM CDT 03/01/2012 5:53 AM CDT Sierra Yin MD POINT OF CARE TESTIN G [facility]# [id number] [address] [place] [address] * (ABNORMAL) CBC WITH DIFFERENTIAL (03/01/2012 1:40 AM CDT) [facility] WBC 23.8(H) 4.0 - 9.8 K/uL [facility] RBC 3.97(L) 4.50 - 5.40 M/uL [facility] HEMOGLOBIN 11.5(L) 13.6 - 16.5 g/dL [facility] HEMATOCRIT 34.6(L) 40.0 - 48.0 % [facility] MCV 87.2 82.0 - 99.0 fL [facility] MCH 29.0 27.2 - 32.6 pg [facility] MCHC 33.2 31.5 - 35.5 % [facility] PLATELETS 374(H) 140 - 350 K/uL [facility] MPV 9.1(L) 9.3 - 12.4 fL [facility] RDW 13.6 11.5 - 14.5 % [facility] RDW-STDEV 43.7 37.1 - 48.7 fL [facility] NEUTROPHILS 93(H) 45 - 70 % [facility] LYMPHOCYTES 4(L) 16 - 45 % [facility] MONOCYTES 3 3 - 13 % [facility] EOSINOPHILS 0 0 - 7 % [facility] BASOPHILS 0 0 - 2 % [facility] NEUTROPHIL ABSOLUTE 22.12(H) 1.90 - 7.00 K/uL [facility] LYMPHOCYTE ABSOLUTE 1.07 0.70 - 4.50 K/uL [facility] MONOCYTE ABSOLUTE 0.62 0.10 - 1.30 K/uL [facility] EOSINOPHIL ABSOLUTE 0.00 0.00 - 0.70 K/uL [facility] BASOPHILS ABSOLUTE 0.02 0.00 - 0.20 K/uL [facility] Blood specimen (specimen) 03/01/2012 1:40 AM CDT 03/01/2012 1:54 AM CDT Katie Ryan MD HEMATOLOGY ORDERABLE S [facility] CLIA# [id number] [address] [place] [address] * (ABNORMAL) COMPREHENSIVE METABOLIC PANEL (03/01/2012 1:40 AM CDT) SODIUM 132(L) 135 - 145 mmol/L [facility] POTASSIUM 4.5 3.5 - 4.9 mmol/L [facility] CHLORIDE 96 96 - 108 mmol/L [facility] CO2 29 22 - 30 mmol/L [facility] CALCIUM 8.5(L) 8.6 - 10.2 mg/dL [facility] BUN 18 6 - 20 mg/dL [facility] CREATININE 0.68 0.67 - 1.17 mg/dL [facility] GLUCOSE 258(H) 65 - 99 mg/dL [facility] TOTAL PROTEIN 5.7(L) 6.3 - 8.6 g/dL [facility] ALBUMIN 2.7(L) 3.4 - 4.8 g/dL [facility] BILIRUBIN TOTAL 0.2 0.2 - 1.0 mg/dL [facility] ALKALINE PHOSPHATASE 181(H) 40 - 129 U/L [facility] AST 31 12 - 38 U/L [facility] ALT 45(H) 0 - 41 U/L [facility] GFR, >60 >=60 mL/min/1. 7 sq meter [facility] GFR >60 >=60 mL/min/1. 7 sq meter [facility] Comment: GFR is calculated using the IDMS-Traceable Modification of Diet in Renal Disease (MDRD) Study formula and is only valid for patients 18 years or older. Further interpretative information is available in the Laboratory Services Policy Manual on the [facility] Intranet at: [email or web address]/ Blood specimen (specimen) 03/01/2012 1:40 AM CDT 03/01/2012 1:54 AM CDT Katie Ryan MD CHEMISTRY ORDERABLES [facility] CLIA# [id number] [address] [place] [address] * (ABNORMAL) C-REACTIVE PROTEIN (03/01/2012 1:40 AM CDT) CRP 4.7(H) 0.0 - 0.8 mg/dL [facility] Blood specimen (specimen) 03/01/2012 1:40 AM CDT 03/01/2012 1:54 AM CDT Katie Ryan MD CHEMISTRY ORDERABLES Performing Organization Address City/[facility]/ZIP Co de Phone Number [facility]# [id number] [address] [place] [address] * (ABNORMAL) POC GLUCOSE (03/01/2012 12:11 AM CDT) GLUCOSE POC 231(H) 65 - 99 mg/dL [facility] CLIA LICENSE [id number] [facility] Blood specimen (specimen) 03/01/2012 12:11 AM CDT 03/01/2012 12:11 AM CDT Sierra Yin MD POINT OF CARE TESTIN G Performing Organization Address City/[facility]/ZIP Co de Phone Number [facility] CLIA# [id number] [address] [place] [address] * (ABNORMAL) POC GLUCOSE (02/29/2012 6:04 PM CDT) GLUCOSE POC 240(H) 65 - 99 mg/dL [facility] CLIA LICENSE [id number] [facility] Blood specimen (specimen) 02/29/2012 6:04 PM CDT 02/29/2012 6:04 PM CDT Sierra Yin MD POINT OF CARE TESTIN G [facility] CLIA# [id number] [address] [place] [address] * (ABNORMAL) POC GLUCOSE (02/29/2012 11:49 AM CDT) GLUCOSE POC 225(H) 65 - 99 mg/dL [facility] CLIA LICENSE [id number] [facility] Blood specimen (specimen) 02/29/2012 11:49 AM CDT 02/29/2012 11:49 AM CDT Sierra Yin MD POINT OF CARE TESTIN G [facility] CLIA# [id number] [address] [place] [address] * (ABNORMAL) POC GLUCOSE (02/29/2012 5:10 AM CDT) GLUCOSE POC 171(H) 65 - 99 mg/dL [facility] CLIA LICENSE [id number] [facility] Blood specimen (specimen) 02/29/2012 5:10 AM CDT 02/29/2012 5:10 AM CDT Sierra Yin MD POINT OF CARE TESTELIE Barron [facility]# [id number] [address] [place] [address] * (ABNORMAL) CBC WITH DIFFERENTIAL (02/29/2012 3:00 AM CDT) WBC 26.1(H) 4.0 - 9.8 K/uL [facility] RBC 4.09(L) 4.50 - 5.40 M/uL [facility] HEMOGLOBIN 12.1(L) 13.6 - 16.5 g/dL [facility] HEMATOCRIT 35.8(L) 40.0 - 48.0 % [facility] MCV 87.5 82.0 - 99.0 fL [facility] MCH 29.6 27.2 - 32.6 pg [facility] MCHC 33.8 31.5 - 35.5 % [facility] PLATELETS 354(H) 140 - 350 K/uL [facility] MPV 9.4 9.3 - 12.4 fL [facility] RDW 13.7 11.5 - 14.5 % [facility] RDW-STDEV 44.0 37.1 - 48.7 fL [facility] NEUTROPHILS 93(H) 45 - 70 % [facility] LYMPHOCYTES 2(L) 16 - 45 % [facility] MONOCYTES 6 3 - 13 % [facility] EOSINOPHILS 0 0 - 7 % [facility] BASOPHILS 0 0 - 2 % [facility] NEUTROPHIL ABSOLUTE 24.23(H) 1.90 - 7.00 K/uL [facility] LYMPHOCYTE ABSOLUTE 0.40(L) 0.70 - 4.50 K/uL [facility] MONOCYTE ABSOLUTE 1.45(H) 0.10 - 1.30 K/uL [facility] EOSINOPHIL ABSOLUTE 0.00 0.00 - 0.70 K/uL [facility] BASOPHILS ABSOLUTE 0.03 0.00 - 0.20 K/uL [facility] Blood specimen (specimen) 02/29/2012 3:00 AM CDT 02/29/2012 5:50 AM CDT Sierra Yin MD HEMATOLOGY ORDERABLE S [facility] CLIA# [id number] [address] [place] [address] * (ABNORMAL) BASIC METABOLIC PANEL (02/29/2012 3:00 AM CDT) SODIUM 130(L) 135 - 145 mmol/L [facility] POTASSIUM 4.1 3.5 - 4.9 mmol/L [facility] CHLORIDE 94(L) 96 - 108 mmol/L [facility] CO2 27 22 - 30 mmol/L [facility] CALCIUM 8.6 8.6 - 10.2 mg/dL [facility] BUN 17 6 - 20 mg/dL [facility] CREATININE 0.65(L) 0.67 - 1.17 mg/dL [facility] GLUCOSE 177(H) 65 - 99 mg/dL [facility] GFR, >60 >=60 mL/min/1. 7 sq meter [facility] GFR >60 >=60 mL/min/1. 7 sq meter [facility] Comment: GFR is calculated using the IDMS-Traceable Modification of Diet in Renal Disease (MDRD) Study formula and is only valid for patients 18 years or older. Further interpretative information is available in the Laboratory Services Policy Manual on the [facility] Intranet at: http://[facility]/ Blood specimen (specimen) 02/29/2012 3:00 AM CDT 02/29/2012 5:50 AM CDT Sierra Yin MD CHEMISTRY ORDERABLES [facility]# [id number] [address] [place] [address] * (ABNORMAL) POC GLUCOSE (02/29/2012 12:10 AM CDT) GLUCOSE POC 205(H) 65 - 99 mg/dL [facility] CLIA LICENSE [id number] [facility] Blood specimen (specimen) 02/29/2012 12:10 AM CDT 02/29/2012 12:10 AM CDT Sierra Jeliazkova MD POINT OF CARE TESTELIE Barron Performing Organization Address [facility]/ZIP Co de Phone Number [facility] CLIA# [id number] [address] [place] [address] * (ABNORMAL) POC GLUCOSE (02/28/2012 6:08 PM CDT) GLUCOSE POC 218(H) 65 - 99 mg/dL [facility] CLIA LICENSE [id number] [facility] Blood specimen (specimen) 02/28/2012 6:08 PM CDT 02/28/2012 6:08 PM CDT Sierra Yin MD POINT OF CARE DICK Barron Performing Organization Address [facility] [place]/[facility] Co de Phone Number [facility] [id number] [address] [place] [address] * EKG 12-LEAD (02/28/2012 3:53 PM CDT) Narrative Transcriptions St Scanning, Him - 02/28/2012 3:53 PM CDT Sierra Yin MD ECG ORDERABLES * (ABNORMAL) POC GLUCOSE (02/28/2012 12:56 PM CDT) GLUCOSE POC 249(H) 65 - 99 mg/dL [facility] CLIA LICENSE [id number] [facility] Blood specimen (specimen) 02/28/2012 12:56 PM CDT 02/28/2012 12:56 PM CDT Sierra Yin MD POINT OF CARE TESTELIE Barron Performing Organization Address [facility] [place]/[facility]/ZIP Co de Phone Number [facility] CLIA# [id number] [address] [place] [address] * PATHOLOGY (02/28/2012 11:20 AM CDT) SURGICAL PATHOLOGY ?[facility] ?[address] ? [place], [place] ??[address] ? Patient: ??MUKUL HUBER S ? : ??1970 ? Procedure Date: ??02/28/2012 ? Accession Date: ??02/28/2012 ? Case No: ??[id number] ? Ordering Dr: ??KATIE RYAN ? Case type SW is performed by [facility], [address] [place] [address], ? [place], [place] ??[address]; all other case types are performed by [facility] ? [facility], [address] [place], [place] ??[address] ?SURGICAL PATHOLOGY & NON-GYNECOLOGIC CYTOPATHOLOGY REPORT ? [...] specimen is completely submitted labeled D1. ? [facility] 02.29.2012 05:10 am ? Microscopic: ? The slides are labeled [id number] and Mukul Huber. ? 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 ? The slides from the original colectomy [...] and ? its performance characteristic determined by [facility], ? Department of Laboratory Medicine. It [...] FOR LUIS EVANS M.D.- 03/01/12 03:15 pm [facility] 02/28/2012 11:2 0 AM CDT Katie Ryan MD PATHOLOGY/CYTOLOGY O RDERABLES Performing Organization Address [facility] [place]/[facility]/ZIP Co de Phone Number [facility]# [id number] [address] [place] [address] * (ABNORMAL) POC GLUCOSE (02/28/2012 5:58 AM CDT) GLUCOSE POC 189(H) 65 - 99 mg/dL [facility] CLIA LICENSE [id number] [facility] Blood specimen (specimen) 02/28/2012 5:58 AM CDT 02/28/2012 5:58 AM CDT Sierra Yin MD POINT OF CARE TESTIN G Performing Organization Address [facility] [place]/[facility]/ZIP Co de Phone Number [facility]# [id number] [address] [place] [address] * (ABNORMAL) C-REACTIVE PROTEIN (02/28/2012 4:35 AM CDT) CRP 8.8(H) 0.0 - 0.8 mg/dL [facility] Blood specimen (specimen) 02/28/2012 4:35 AM CDT 02/28/2012 9:33 AM CDT Sierra Yin MD CHEMISTRY ORDERABLES [facility] CLIA# [id number] [address] [address] * (ABNORMAL) COMPREHENSIVE METABOLIC PANEL (02/28/2012 4:35 AM CDT) Pathologist [facility] SODIUM 133(L) 135 - 145 mmol/L [facility] POTASSIUM 4.4 3.5 - 4.9 mmol/L [facility] CHLORIDE 95(L) 96 - 108 mmol/L [facility] CO2 28 22 - 30 mmol/L [facility] CALCIUM 8.8 8.6 - 10.2 mg/dL [facility] BUN 18 6 - 20 mg/dL [facility] CREATININE 0.70 0.67 - 1.17 mg/dL [facility] GLUCOSE 160(H) 65 - 99 mg/dL [facility] TOTAL PROTEIN 6.4 6.3 - 8.6 g/dL [facility] ALBUMIN 3.0(L) 3.4 - 4.8 g/dL [facility] BILIRUBIN TOTAL 0.3 0.2 - 1.0 mg/dL [facility] ALKALINE PHOSPHATASE 200(H) 40 - 129 U/L [facility] LABORATORY SERVICES [facility] AST 28 12 - 38 U/L [facility] ALT 61(H) 0 - 41 U/L [facility]ORATORY SERVICES [facility] GFR, >60 >=60 mL/min/1. 7 sq meter [facility]ORATORY SERVICES [facility] GFR >60 >=60 mL/min/1. 7 sq meter [facility] Comment: GFR is calculated using the IDMS-Traceable Modification of Diet in Renal Disease (MDRD) Study formula and is only valid for patients 18 years or older. Further interpretative information is available in the Laboratory Services Policy Manual on the [facility] Intranet at: [email or web address] valley hospitalMeiaojucleveland clinic union hospital.[email or web address]/ Blood specimen (specimen) 02/28/2012 4:35 AM CDT 02/28/2012 4:58 AM CDT Sierra Yin MD CHEMISTRY ORDERABLES [facility] CLIA# [id number] [address] [place] [address] * (ABNORMAL) CBC WITH MANUAL DIFFERENTIAL (02/28/2012 4:35 AM CDT) WBC 21.2(H) 4.0 - 9.8 K/uL [facility] LABORATORY SERVICES [facility] RBC 4.35(L) 4.50 - 5.40 M/uL [facility] HEMOGLOBIN 12.9(L) 13.6 - 16.5 g/dL [facility] HEMATOCRIT 37.8(L) 40.0 - 48.0 % [facility] MCV 86.9 82.0 - 99.0 fL [facility] MCH 29.7 27.2 - 32.6 pg [facility] LABORATORY SERVICES [facility] MCHC 34.1 31.5 - 35.5 % [facility] PLATELETS 347 140 - 350 K/uL [facility] MPV 9.6 9.3 - 12.4 fL [facility] RDW 13.6 11.5 - 14.5 % [facility] LABORATORY SERVICES [facility] RDW-STDEV 43.2 37.1 - 48.7 fL [facility] NEUTROPHILS 87(H) 45 - 70 % [facility] LABORATORY SERVICES [facility] LYMPHOCYTES 3(L) 16 - 45 % [facility] MONOCYTES 10 3 - 13 % [facility] EOSINOPHILS 0 0 - 7 % [facility] BASOPHILS 0 0 - 2 % [facility] NEUTROPHIL ABSOLUTE 18.56(H) 1.90 - 7.00 K/uL [facility] LYMPHOCYTE ABSOLUTE 0.60(L) 0.70 - 4.50 K/uL [facility] MONOCYTE ABSOLUTE 2.03(H) 0.10 - 1.30 K/uL [facility] EOSINOPHIL ABSOLUTE 0.01 0.00 - 0.70 K/uL [facility] BASOPHILS ABSOLUTE 0.04 0.00 - 0.20 K/uL [facility] Blood specimen (specimen) 02/28/2012 4:35 AM CDT 02/28/2012 4:58 AM CDT Sierra Yin MD HEMATOLOGY ORDERABLE S Performing Organization Address City/[facility]/ZIP Co de Phone Number [facility] CLIA# [id number] [address] [place] [address] * (ABNORMAL) POC GLUCOSE (02/28/2012 12:41 AM CDT) GLUCOSE POC 394(H) 65 - 99 mg/dL [facility] CLIA LICENSE [id number] [facility] Blood specimen (specimen) 02/28/2012 12:41 AM CDT 02/28/2012 12:41 AM CDT Sierra Yin MD POINT OF CARE TESTIN G Performing Organization Address [facility] [place]/[facility]/ZIP Co de Phone Number [facility] CLIA# [id number] [address] [place] [address] * (ABNORMAL) POC GLUCOSE (02/27/2012 5:37 PM CDT) GLUCOSE POC 221(H) 65 - 99 mg/dL [facility] CLIA LICENSE [id number] [facility] LABORATORY SERVICES [facility] Blood specimen (specimen) 02/27/2012 5:37 PM CDT 02/27/2012 5:37 PM CDT Sierra Yin MD POINT OF CARE TESTIN G Performing Organization Address City/[facility]/ZIP Co de Phone Number [facility] CLIA# [id number] [address] [facility] [address] * (ABNORMAL) POC GLUCOSE (02/27/2012 1:46 PM CDT) GLUCOSE POC 286(H) 65 - 99 mg/dL [facility] CLIA LICENSE [id number] [facility] LABORATORY SERVICES [facility] Blood specimen (specimen) 02/27/2012 1:46 PM CDT 02/27/2012 1:46 PM CDT Sierra Yin MD POINT OF CARE TESTIN G Performing Organization Address [facility]UST Co de Phone Number [facility] [id number] [address] [place] [address] * (ABNORMAL) COMPREHENSIVE METABOLIC PANEL (02/27/2012 6:05 AM CDT) SODIUM 131(L) 135 - 145 mmol/L [facility] LABORATORY SERVICES [facility] POTASSIUM 3.9 3.5 - 4.9 mmol/L [facility]ORATORY SERVICES - [facility] CHLORIDE 93(L) 96 - 108 mmol/L [facility] LABORATORY SERVICES [facility] CO2 25 22 - 30 mmol/L [facility] LABORATORY SERVICES [facility] CALCIUM 8.7 8.6 - 10.2 mg/dL [facility] - [facility] BUN 15 6 - 20 mg/dL [facility]ORATORY SERVICES [facility] CREATININE 0.87 0.67 - 1.17 mg/dL [facility] LABORATORY SERVICES [facility] GLUCOSE 203(H) 65 - 99 mg/dL [facility] LABORATORY SERVICES [facility] TOTAL PROTEIN 6.9 6.3 - 8.6 g/dL [facility] ALBUMIN 3.1(L) 3.4 - 4.8 g/dL [facility] BILIRUBIN TOTAL 0.3 0.2 - 1.0 mg/dL [facility] ALKALINE PHOSPHATASE 214(H) 40 - 129 U/L [facility] AST 31 12 - 38 U/L [facility] ALT 55(H) 0 - 41 U/L [facility] GFR, >60 >=60 mL/min/1. 7 sq meter [facility] GFR >60 >=60 mL/min/1. 7 sq meter [facility] Comment: GFR is calculated using the IDMS-Traceable Modification of Diet in Renal Disease (MDRD) Study formula and is only valid for patients 18 years or older. Further interpretative information is available in the Laboratory Services Policy Manual on the [facility] Intranet at: [email or web address]://[email or web address] medical [email or web address].[facility]/ Blood specimen (specimen) 02/27/2012 6:05 AM CDT 02/27/2012 6:12 AM CDT Katie Ryan MD CHEMISTRY ORDERABLES [facility] CLIA# [id number] [address] [place] [address] * (ABNORMAL) C-REACTIVE PROTEIN (02/27/2012 6:05 AM CDT) CRP 13.2(H) 0.0 - 0.8 mg/dL [facility] Blood specimen (specimen) 02/27/2012 6:05 AM CDT 02/27/2012 6:12 AM CDT Katie Ryan MD CHEMISTRY ORDERABLES [facility] CLIA# [id number] [address] [place] [address] * PHOSPHORUS (02/27/2012 6:05 AM CDT) PHOSPHORUS 4.5 2.5 - 4.5 mg/dL [facility] Blood specimen (specimen) 02/27/2012 6:05 AM CDT 02/27/2012 6:12 AM CDT Sierra Yin MD CHEMISTRY ORDERABLES Performing Organization Address City/[facility]/ZIP Co de Phone Number [facility] CLWA# [id number] [address] [place] [address] * MAGNESIUM LEVEL (02/27/2012 6:05 AM CDT) Pathologist [facility] MAGNESIUM 2.5 1.5 - 2.5 mg/dL [facility] Blood specimen (specimen) 02/27/2012 6:05 AM CDT 02/27/2012 6:12 AM CDT Sierra Yin MD CHEMISTRY ORDERABLES Performing Organization Address [facility] Co de Phone Number [facility] CLIA# [id number] [address] [place] [address] * (ABNORMAL) C-REACTIVE PROTEIN (02/26/2012 6:20 AM CDT) Pathologist [facility] CRP 18.0(H) 0.0 - 0.8 mg/dL [facility] Blood specimen (specimen) 02/26/2012 6:20 AM CDT 02/26/2012 6:32 AM CDT Katie Ryan MD CHEMISTRY ORDERABLES Performing Organization Address [facility] Co de Phone Number [facility] CLIA# [id number] [address] [place] [address] * (ABNORMAL) CBC WITH DIFFERENTIAL (02/26/2012 6:20 AM CDT) Pathologist [facility] WBC 20.5(H) 4.0 - 9.8 K/uL [facility] RBC 3.99(L) 4.50 - 5.40 M/uL [facility] HEMOGLOBIN 11.4(L) 13.6 - 16.5 g/dL [facility] HEMATOCRIT 34.4(L) 40.0 - 48.0 % [facility] MCV 86.2 82.0 - 99.0 fL [facility] MCH 28.6 27.2 - 32.6 pg [facility] MCHC 33.1 31.5 - 35.5 % [facility] RDW 13.4 11.5 - 14.5 % [facility] RDW-STDEV 42.5 37.1 - 48.7 fL [facility] NEUTROPHILS, SEG 89(H) 45 - 70 % [facility] - [facility] BANDS 8(H) 0 - 5 % [facility] LYMPHOCYTES 1(L) 16 - 45 % [facility] MONOCYTES 1(L) 3 - 13 % [facility] EOSINOPHILS 0 0 - 7 % [facility] BASOPHILS 0 0 - 2 % [facility] MYELOCYTES 1(H) <=0 % [facility] PLATELET EST. Consistent w/ count Normal [facility] NEUTROPHIL ABSOLUTE 19.88(H) 1.90 - 7.00 K/uL [facility] LYMPHOCYTE ABSOLUTE 0.20(L) 0.70 - 4.50 K/uL [facility] MONOCYTE ABSOLUTE 0.20 0.10 - 1.30 K/uL [facility] EOSINOPHIL ABSOLUTE 0.00 0.00 - 0.70 K/uL [facility] BASOPHILS ABSOLUTE 0.00 0.00 - 0.20 K/uL [facility] ANISOCYTOSIS Slight [facility] POIKILOCYTES Slight [facility] REVIEWED ON SMEAR WBC & Plt Reviewed [facility] PLATELETS 319 140 - 350 K/uL [facility] Comment:WBC and Platelets ve rified by smear review. MPV 9.5 9.3 - 12.4 fL [facility] Blood specimen (specimen) 02/26/2012 6:20 AM CDT 02/26/2012 6:32 AM CDT Katie Ryan MD HEMATOLOGY ORDERABLE S [facility] CLIA# [id number] [address] [place] [place] [address] * SKIN TEST TB (02/26/2012) PPD REACTION [...] CDT) WBC 18.5(H) 4.0 - 9.8 K/uL [employer] LABORATORY SERVICES [facility] RBC 4.20(L) 4.50 - 5.40 M/uL [employer] LABORATORY SERVICES [facility] HEMOGLOBIN 12.3(L) 13.6 - 16.5 g/dL [employer] LABORATORY SERVICES [facility] HEMATOCRIT 36.6(L) 40.0 - 48.0 % [employer] LABORATORY SERVICES [facility] MCV 87.1 82.0 - 99.0 fL [employer] LABORATORY SERVICES [facility] MCH 29.3 27.2 - 32.6 pg [employer] LABORATORY SERVICES [facility] MCHC 33.6 31.5 - 35.5 % [employer] LABORATORY SERVICES [facility] PLATELETS 316 140 - 350 K/uL [employer] LABORATORY SERVICES [facility] MPV 9.5 9.3 - 12.4 fL [employer] LABORATORY SERVICES [facility] RDW 13.5 11.5 - 14.5 % [employer] LABORATORY SERVICES [facility] RDW-STDEV 43.1 37.1 - 48.7 fL [employer] LABORATORY SERVICES [facility] NEUTROPHILS 87(H) 45 - 70 % [employer] LABORATORY SERVICES [facility] LYMPHOCYTES 2(L) 16 - 45 % [employer] LABORATORY SERVICES [facility] MONOCYTES 10 3 - 13 % [employer] LABORATORY SERVICES [facility] EOSINOPHILS 0 0 - 7 % [employer] LABORATORY SERVICES [facility] BASOPHILS 0 0 - 2 % [employer] [facility]ATORY SERVICES - [facility] NEUTROPHIL ABSOLUTE [...] BASOPHILS ABSOLUTE 0.03 0.00 - 0.20 K/uL [employer] [facility]ORATORY SERVICES [facility] Blood specimen (specimen) 02/25/2012 6:10 AM CDT 02/25/2012 6:41 AM CDT Sierra Yin MD HEMATOLOGY ORDERABLE S [id number] [address] [place] [address] * (ABNORMAL) COMPREHENSIVE METABOLIC PANEL (02/25/2012 6:10 AM CDT) SODIUM 130(L) 135 - 145 mmol/L [facility] SERVICES [facility] POTASSIUM 4.4 3.5 - 4.9 mmol/L [facility] SERVICES [facility] CHLORIDE 95(L) 96 - 108 mmol/L [facility]ORY SERVICES [facility] CO2 24 22 - 30 mmol/L [facility]ORY SERVICES [facility] CALCIUM 9.2 8.6 - 10.2 mg/dL [facility] BUN 8 6 - 20 mg/dL [facility] CREATININE 0.85 0.67 - 1.17 mg/dL [facility] GLUCOSE 118(H) 65 - 99 mg/dL [employer] LABORATORY SERVICES [facility] TOTAL PROTEIN 6.7 6.3 - 8.6 g/dL [facility] ALBUMIN 3.2(L) 3.4 - 4.8 g/dL [facility] BILIRUBIN TOTAL 0.5 0.2 - 1.0 mg/dL [employer] LABORATORY SERVICES [facility] ALKALINE PHOSPHATASE 78 40 - 129 U/L [facility]ORY SERVICES [facility] AST 14 12 - 38 U/L [facility] ALT 16 0 - 41 U/L [facility] GFR, >60 >=60 mL/min/1. 7 sq meter [facility] GFR >60 >=60 mL/min/1. 7 sq meter [facility] SERVICES [facility] Comment: GFR is calculated using the IDMS-Traceable Modification of Diet in Renal Disease (MDRD) Study formula and is only valid for patients 18 years or older. Further interpretative information is available in the Laboratory Services Policy Manual on the [facility] Intranet at: [email or web address] medical [email or web address]/ Blood specimen (specimen) 02/25/2012 6:10 AM CDT 02/25/2012 6:41 AM CDT Sierra Yin MD CHEMISTRY ORDERABLES [facility] SERVICES [facility] CLIA# [id number] [address] [place] [address] * XR CHEST PA OR AP (02/24/2012 [...] CDT) PREALBUMIN 14(L) 20 - 40 mg/dL [facility] Blood specimen (specimen) 02/24/2012 4:40 AM CDT 02/24/2012 11:24 AM CDT Narrative [facility] - 02/24/2012 11:36 AM CDT Blood in lab Sierra Yin MD CHEMISTRY ORDERABLES Performing Organization Address City/[facility]/ZIP Co de Phone Number [facility] CLIA# [id number] [address] [place] [address] * TSH REFLEXIVE (02/24/2012 4:40 AM CDT) TSH 0.30 0.27 - 4.20 uU/mL [facility] Blood specimen (specimen) 02/24/2012 4:40 AM CDT 02/24/2012 9:18 AM CDT Sierra Yin MD CHEMISTRY ORDERABLES Performing Organization Address City/[facility]/ZIP Co de Phone Number [facility] CLIA# [id number] [address] [facility] [place] [address] * (ABNORMAL) CBC WITH DIFFERENTIAL (02/24/2012 4:40 AM CDT) [facility] WBC 10.6(H) 4.0 - 9.8 K/uL [employer] [facility] - [facility] RBC 4.60 4.50 - 5.40 M/uL [employer] [facility] - [facility] HEMOGLOBIN 13.2(L) 13.6 - 16.5 g/dL [employer] LABORATORY SERVICES [facility] HEMATOCRIT 40.0 40.0 - 48.0 % [facility] MCV 87.0 82.0 - 99.0 fL [employer] [facility] - [facility] MCH 28.7 27.2 - 32.6 pg [employer] [facility] - [facility] MCHC 33.0 31.5 - 35.5 % [employer] LABORATORY SERVICES [facility] PLATELETS 370(H) 140 - 350 K/uL [employer] LABORATORY SERVICES [facility] MPV 9.8 9.3 - 12.4 fL [employer] LABORATORY SERVICES [facility] RDW 13.3 11.5 - 14.5 % [employer] [facility] - [facility] RDW-STDEV 42.5 37.1 - 48.7 fL [employer] [facility] - [facility] NEUTROPHILS 84(H) 45 - 70 % [employer] [facility] - [facility] LYMPHOCYTES 4(L) 16 - 45 % [employer] [facility] - [facility] MONOCYTES 11 3 - 13 % [facility] EOSINOPHILS 0 0 - 7 % [facility] BASOPHILS 0 0 - 2 % [facility] NEUTROPHIL ABSOLUTE 8.90(H) 1.90 - 7.00 K/uL [employer] [facility]ORATORY SERVICES [facility] LYMPHOCYTE ABSOLUTE 0.48(L) 0.70 - 4.50 K/uL [employer] [facility]ORATORY SERVICES [facility] MONOCYTE ABSOLUTE 1.17 0.10 - 1.30 K/uL [employer] [facility] EOSINOPHIL ABSOLUTE 0.05 0.00 - 0.70 K/uL [employer] BASOPHILS ABSOLUTE 0.02 0.00 - 0.20 K/uL [employer] [facility]ATORY SERVICES [facility] Blood specimen (specimen) 02/24/2012 4:40 AM CDT 02/24/2012 5:12 AM CDT Sierra Yin MD HEMATOLOGY ORDERABLE S [facility] BRIGHT# [id number] [address] [place] [address] * (ABNORMAL) INFLAMMATORY BOWEL DISEASE PANEL (02/24/2012 4:40 AM CDT) [facility] Signature IBD PANEL INTEPRETATION Pattern Consistent with IBD: Ulcerative Colitis [facility] Comment: Patient test results are based on the Smart Diagnostic Algorithm which interprets complex patterns among assay values from a combination of serologic, genetic, and inflammatory markers. ?? This test was developed and its performance characteristics determined by [employer]. ??It has not been cleared or approved by the U.S. Food and Drug Administration. ?? Test performed by [employer], [address] [place] [address], [place] [address] SACCHAROMYCES CEREVISIAE IGA <3.1 <=8.4 EU/mL [facility] SACCHAROMYCES CEREVISIAE IGG <3.1 <=17.7 EU/mL [facility] IBD OMPC AB <3.1 <=10.8 EU/mL [facility] IBD CBIR1 AB 19.8 <=78.3 EU/mL [facility] Vlji-H4-Grx6 IgG 12.8 <=44.7 EU/mL [facility] Anti-FlaX IgG 16.9 <=33.3 EU/mL [facility] IBD PANCA AUTO AB 76.7(H) <=19.7 EU/mL [facility] IBD PANCA PERINUCLEAR PATTERN Detected(A) Not Detected [facility] IBD PANCA DNASE SENSITIVITY DNAse Sensitive(A) Not Detected [facility] 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 Detected [facility] Comment:Tested SNP location is [id number] No Mutation Detected No Mutation Detected [facility] Comment:Tested SNP location is [id number] No Mutation Detected No Mutation Detected [facility] Comment:Tested SNP location is [id number] Mutation Detected Mutation Detected [facility] Comment:Tested SNP location is [id number] ICAM-1 0.73(H) <=0.53 ug/mL [facility] VCAM-1 0.92(H) <=0.67 ug/mL [facility] VEGF 1354(H) <=344 pg/mL [facility] CRP, Ref Lab 168.4(H) <=13.1 mg/L [facility] ROBERT >181.6(H) <=10.8 mg/L [facility] Blood specimen (specimen) 02/24/2012 4:40 AM CDT 02/24/2012 5:12 AM CDT Sierra Yin MD CHEMISTRY ORDERABLES Performing Organization Address [facility] Co de Phone Number [facility] CLIA# [id number] [address] [place] [place] [address] * (ABNORMAL) C-REACTIVE PROTEIN (02/24/2012 4:40 AM CDT) Pathologist [facility] CRP 16.3(H) 0.0 - 0.8 mg/dL [facility] Blood specimen (specimen) 02/24/2012 4:40 AM CDT 02/24/2012 5:12 AM CDT Sierra Yin MD CHEMISTRY ORDERABLES Performing Organization Address [facility] Co de Phone Number [facility] CLIA# [id number] [address] [place] [place] [address] * (ABNORMAL) BASIC METABOLIC PANEL (02/24/2012 4:40 AM CDT) Pathologist [facility] SODIUM 128(L) 135 - 145 mmol/L [facility] POTASSIUM 4.8 3.5 - 4.9 mmol/L [facility] CHLORIDE 96 96 - 108 mmol/L [facility] CO2 26 22 - 30 mmol/L [facility] CALCIUM 8.6 8.6 - 10.2 mg/dL [facility] BUN 12 6 - 20 mg/dL [facility] CREATININE 0.94 0.67 - 1.17 mg/dL [facility] GLUCOSE 114(H) 65 - 99 mg/dL [facility] GFR, >60 >=60 mL/min/1. 7 sq meter [facility] GFR >60 >=60 mL/min/1. 7 sq meter [facility] Comment: GFR is calculated using the IDMS-Traceable Modification of Diet in Renal Disease (MDRD) Study formula and is only valid for patients 18 years or older. Further interpretative information is available in the Laboratory Services Policy Manual on the [facility] Intranet at: [email or web address] Blood specimen (specimen) 02/24/2012 4:40 AM CDT 02/24/2012 5:12 AM CDT Sierra Yin MD CHEMISTRY ORDERABLES [facility]# [id number] [place] [address] * IP CONSULT TO GI (02/23/2012 9:34 PM CDT) Narrative [facility] - 02/23/2012 9:34 PM CDT Trevor Toledo MD ? 02/23/2012 ??5:47 PM Admit Date: 02/22/2012 Hospital day: ??LOS: 1 day Physician requesting Consult: Reason for consult: Pouchitis. [facility] Patient: Mukul Huber is a 41 yo [...] and he seen in the ED at ??[facility] where he was treated for dehydration and was sent home with pain killers and a PPI. ??After going home he began having ?? subjective fevers, chills. He denies any sick contacts. He does report some blood in his stool every time he stools now. He reports that his frequency of stools has also increased. ??He was seen in [facility] where he had a CT abdomen [...] 12/08/2009 ??COLONOSCOPY performed by WILLIAN SOTELO at [facility] ? ? Pr sigmoidoscopy,diagnostic 02/16/2012 ??SIGMOIDOSCOPY FLEXIBLE performed by Willian Sotelo MD at [facility] ? ? Pr endoscopy of bowel pouch 02/16/2012 ??POUCHOSCOPY performed by Willian Sotelo MD at [facility] Family History Problem Relation Age [...] Ryan. Tiburcio Toledo MD Internal Medicine R2 ([facility]) [phone] Sierra Yin MD INPATIENT CONSULT OR DERABLES [facility] * CORTISOL LEVEL (02/23/2012 8:28 AM CDT) CORTISOL LEVEL 43.0 ug/dL [facility] Comment: Cortisol Reference Range: 7 - 10 AM: ?? 6.2 - 19.4 ug/dL 4 - ??8 PM: ?? 2.3 - 11.9 ug/dL Blood specimen (specimen) 02/23/2012 8:28 AM CDT 02/23/2012 8:54 AM CDT Richelle Gambino MD CHEMISTRY ORDERABLES [facility] CLIA# [id number] [address] [place] [address] * (ABNORMAL) C-REACTIVE PROTEIN (02/23/2012 7:50 AM CDT) Pathologist [facility] CRP 21.7(H) 0.0 - 0.8 mg/dL [facility] Blood specimen (specimen) 02/23/2012 7:50 AM CDT 02/23/2012 8:33 AM CDT Sierra Yin MD CHEMISTRY ORDERABLES Performing Organization Address [facility] [place]/[facility]/ZIP Co de Phone Number [facility]# [id number] [address] [place] [address] * LACTIC ACID (02/23/2012 7:10 AM CDT) Pathologist [facility] LACTIC ACID 0.9 0.5 - 2.2 mmol/L [facility] Blood specimen (specimen) 02/23/2012 7:10 AM CDT 02/23/2012 7:21 AM CDT Richelle Gambino MD CHEMISTRY ORDERABLES Performing Organization Address [facility] [place]/[facility]/ZIP Co de Phone Number [facility]# [id number] [address] [place] [address] * (ABNORMAL) BASIC METABOLIC PANEL (02/23/2012 7:10 AM CDT) Pathologist [facility] SODIUM 126(L) 135 - 145 mmol/L [facility] POTASSIUM 4.3 3.5 - 4.9 mmol/L [facility] CHLORIDE 95(L) 96 - 108 mmol/L [facility] CO2 18(L) 22 - 30 mmol/L [facility] CALCIUM 9.1 8.6 - 10.2 mg/dL [facility] BUN 17 6 - 20 mg/dL [facility] CREATININE 1.06 0.67 - 1.17 mg/dL [facility] GLUCOSE 104(H) 65 - 99 mg/dL [facility] GFR, >60 >=60 mL/min/1. 7 sq meter [facility] GFR >60 >=60 mL/min/1. 7 sq meter [facility] Comment: GFR is calculated using the IDMS-Traceable Modification of Diet in Renal Disease (MDRD) Study formula and is only valid for patients 18 years or older. Further interpretative information is available in the Laboratory Services Policy Manual on the [facility] Intranet at: [email or web address]/ Blood specimen (specimen) 02/23/2012 7:10 AM CDT 02/23/2012 7:21 AM CDT Richelle Gambino MD CHEMISTRY ORDERABLES [facility] CLIA# [id number] [address] [place] [address] * (ABNORMAL) CBC WITH DIFFERENTIAL (02/23/2012 7:10 AM CDT) WBC 12.1(H) 4.0 - 9.8 K/uL [facility] RBC 4.98 4.50 - 5.40 M/uL [facility] HEMOGLOBIN 14.6 13.6 - 16.5 g/dL [facility] HEMATOCRIT 42.8 40.0 - 48.0 % [facility] MCV 85.9 82.0 - 99.0 fL [facility] MCH 29.3 27.2 - 32.6 pg [facility] MCHC 34.1 31.5 - 35.5 % [facility] PLATELETS 370(H) 140 - 350 K/uL [facility] MPV 9.8 9.3 - 12.4 fL [facility] RDW 13.3 11.5 - 14.5 % [facility] RDW-STDEV 41.5 37.1 - 48.7 fL [facility] NEUTROPHILS, SEG 34(L) 45 - 70 % [facility] BANDS 33(H) 0 - 5 % [facility] LYMPHOCYTES 13(L) 16 - 45 % [facility] MONOCYTES 14(H) 3 - 13 % [facility] EOSINOPHILS 2 0 - 7 % [facility] BASOPHILS 0 0 - 2 % [facility] METAMYELOCYTE 4(H) <=0 % [facility] PLATELET EST. Consistent w/ count Normal [facility] NEUTROPHIL ABSOLUTE 8.11(H) 1.90 - 7.00 K/uL [facility] LYMPHOCYTE ABSOLUTE 1.57 0.70 - 4.50 K/uL [facility] MONOCYTE ABSOLUTE 1.69(H) 0.10 - 1.30 K/uL [facility] EOSINOPHIL ABSOLUTE 0.24 0.00 - 0.70 K/uL [facility] BASOPHILS ABSOLUTE 0.00 0.00 - 0.20 K/uL [facility] RBC MORPHOLOGY Normal Normal [facility] Blood specimen (specimen) 02/23/2012 7:10 AM CDT 02/23/2012 7:21 AM CDT Richelle Gambino MD HEMATOLOGY ORDERABLE S Performing Organization Address City/[facility]/ZIP Co de Phone Number [facility] CLIA# [id number] [address] [place] [address] * URINE CULTURE (02/23/2012 3:46 AM CDT) FINAL MICRO REPORT No growth 24 hours [facility] 02/23/2012 3:46 AM CDT 02/23/2012 4:46 AM CDT Comment:URINE VOIDED Richelle Gambino MD MICROBIOLOGY - GENER AL ORDERABLES [facility] CLIA# [id number] [address] [address] * (ABNORMAL) URINALYSIS (02/23/2012 3:46 AM CDT) COLOR UA Yellow [facility] CLARITY UA Clear Clear [facility] SPECIFIC GRAVITY UA 1.060(H) 1.001 - 1.035 [facility] Comment: Quantitated by dilution. Results confirmed by 2nd methodology. PH UA 6.5 5.0 - 8.0 [facility] LEUKOCYTE ESTERASE UA Negative Negative [facility] NITRITE UA Negative Negative [facility] PROTEIN UA 1+(A) Negative [facility] GLUCOSE UA Negative Negative [facility] KETONES UA 2+(A) Negative [facility] UROBILINOGEN UA <1 <=1 mg/dL [facility] BILIRUBIN UA Negative Negative [facility] BLOOD UA Trace(A) Negative [facility] WBC UA 1 0 - 3 /HPF [facility] RBC UA 4(H) 0 - 3 /HPF [facility] HYALINE CAST 27(H) 0 - 2 /LPF [facility] 02/23/2012 3:46 AM CDT 02/23/2012 4:26 AM CDT Comment:URINE VOIDED Richelle Gambino MD URINE ORDERABLES [facility] CLIA# [id number] [address] [place] [address] * URINALYSIS WITH REFLEX CULTURE (02/23/2012 3:46 AM CDT) URINE CULTURE ORDER Culture ordered [facility] Comment: Criteria for a reflex culture include [...] Gambino MD URINE ORDERABLES Performing Organization Address [facility] [place]/[facility]/[employer] Co de Phone Number [facility] CLIA# [id number] [address] [place] [address] * CLOSTRIDIUM DIFFICILE TOXIN (02/23/2012 3:42 AM CDT) C DIFF TOXIN PCR RESULT Negative Negative [facility] C DIFF TOXIN PCR SOURCE Stool [facility] Stool specimen (specimen) 02/23/2012 3:42 AM CDT 02/23/2012 4:26 AM CDT Comment:STOOL Richelle Gambino MD MICROBIOLOGY - GENER AL ORDERABLES Performing Organization Address [facility] [place]/[facility]/[employer] Co de Phone Number [facility] CLIA# [id number] [address] [place] [address] * (ABNORMAL) STOOL CULTURE (02/23/2012 3:42 AM CDT) E. COLI SHIGA TOXIN REPORT Negative E. coli Shiga toxin 1 by ICT assay. Negative E. coli Shiga toxin 2 by ICT assay. --Note: ??A negative does not rule out infection with enterohemorrhagic E. coli.(A) [facility] FINAL MICRO REPORT Heavy growth Escherichia coli No Salmonella isolated. No Shigella isolated. No Escherichia coli serogroup O157:H7 isolated. No Campylobacter isolated.(A) [facility] SUSCEPTIBILITY PERFORMED ON ESCHERICHIA COLI(A) [facility] Stool specimen (specimen) 02/23/2012 3:42 AM CDT 02/23/2012 4:28 AM CDT Comment:STOOL Narrative Organism Antibiotic Method Susceptibility Escherichia coli ESBL NA MCG/ML NEGATIVE Escherichia coli AMPICILLIN NA MCG/ML >=32: Resistant Escherichia coli AMPICILLIN/ SULBACTAM NA MCG/ML 8: Susceptible Escherichia coli CEFAZOLIN NA MCG/ML <=4: Susceptible Escherichia coli GENTAMICIN NA MCG/ML <=1: Susceptible Escherichia coli CIPROFLOXACIN NA MCG/ML <=0.25: Susceptible Escherichia coli TRIMETHOPRIM/ SULFAMETHOXAZOLE NA MC G/ML <=20: Susceptible Richelle Gambino MD MICROBIOLOGY - [employer] AL ORDERABLES Performing Organization Address [facility] [place]/[facility]/[employer] Co de Phone Number [facility]# [id number] [address] [place] [place] [address] * INFLUENZA VIRUS A AND B ANTIGEN (02/23/2012 3:02 AM CDT) FINAL MICRO REPORT Influenza A Antigen: Negative by ICT assay. Influenza B Antigen: Negative by ICT assay. -- Note: ??A negative does not rule out infection. [facility] Specimen from respiratory system (specimen) NASOPHARYNGEAL SWAB / Unknown 02/23/2012 3:02 AM CDT 02/23/2012 3:12 AM CDT Comment:NASOPHARYNGEAL Richelle Gambino MD MICROBIOLOGY - [employer] AL ORDERABLES Performing Organization Address [facility] [place]/[facility]/[employer] Co de Phone Number [facility]# [id number] [address] [place] [address] [place] [address] * XR CHEST PA OR AP (02/23/2012 [...] - 9.8 K/uL [facility] RBC 5.08 4.50 - 5.40 M/uL [facility] HEMOGLOBIN 14.9 13.6 - 16.5 g/dL [facility] HEMATOCRIT 43.3 40.0 - 48.0 % [facility] MCV 85.2 82.0 - 99.0 fL [facility] MCH 29.3 27.2 - 32.6 pg [facility] MCHC 34.4 31.5 - 35.5 % [facility] PLATELETS 343 140 - 350 K/uL [facility] MPV 9.8 9.3 - 12.4 fL [facility] RDW 12.9 11.5 - 14.5 % [facility] RDW-STDEV 40.4 37.1 - 48.7 fL [facility] NEUTROPHILS 79(H) 45 - 70 % [facility] LYMPHOCYTES 10(L) 16 - 45 % [facility] MONOCYTES 10 3 - 13 % [facility] EOSINOPHILS 0 0 - 7 % [facility] BASOPHILS 0 0 - 2 % [facility] NEUTROPHIL ABSOLUTE 10.89(H) 1.90 - 7.00 K/uL [facility] LYMPHOCYTE ABSOLUTE 1.38 0.70 - 4.50 K/uL [facility] MONOCYTE ABSOLUTE 1.37(H) 0.10 - 1.30 K/uL [facility] EOSINOPHIL ABSOLUTE 0.06 0.00 - 0.70 K/uL [facility] BASOPHILS ABSOLUTE 0.04 0.00 - 0.20 K/uL [facility] Blood specimen (specimen) 02/22/2012 7:57 PM CDT 02/22/2012 7:57 PM CDT Reji Noel MD HEMATOLOGY OR DERABLES Performing Organization Address [facility] [place]/[facility]/ZIP Co de Phone Number [facility] CLIA# [id number] [address] [place] [address] * LIPASE (02/22/2012 7:24 PM CDT) Pathologist [facility] LIPASE 40 13 - 60 U/L [facility] Blood specimen (specimen) 02/22/2012 7:24 PM CDT 02/22/2012 7:33 PM CDT Reji Noel MD CHEMISTRY ORD ERABLES Performing Organization Address [facility] [place]/[facility]/[employer] Co de Phone Number [facility] CLIA# [id number] [address] [place] [address] * (ABNORMAL) COMPREHENSIVE METABOLIC PANEL (02/22/2012 7:24 PM CDT) Pathologist [facility] SODIUM 126(L) 135 - 145 mmol/L [facility] POTASSIUM 5.3(H) 3.5 - 4.9 mmol/L [facility] Comment: Moderate hemolysis present. Can cause significant falsely elevated result. Clinical judgement necessary. Redraw if indicated. CHLORIDE 92(L) 96 - 108 mmol/L [facility] CO2 18(L) 22 - 30 mmol/L [facility] CALCIUM 10.2 8.6 - 10.2 mg/dL [facility] BUN 18 6 - 20 mg/dL [facility] CREATININE 1.23(H) 0.67 - 1.17 mg/dL [facility] GLUCOSE 123(H) 65 - 99 mg/dL [facility] TOTAL PROTEIN 8.5 6.3 - 8.6 g/dL [facility] ALBUMIN 4.2 3.4 - 4.8 g/dL [facility] BILIRUBIN TOTAL 0.7 0.2 - 1.0 mg/dL [facility] ALKALINE PHOSPHATASE 100 40 - 129 U/L [facility] AST 24 12 - 38 U/L [facility] Comment:Hemolyzed: Result ma y be falsely elevated. ALT 35 0 - 41 U/L [facility] GFR, >60 >=60 mL/min/1. 7 sq meter [facility] GFR >60 >=60 mL/min/1. 7 sq meter [facility] Comment: GFR is calculated using the IDMS-Traceable Modification of Diet in Renal Disease (MDRD) Study formula and is only valid for patients 18 years or older. Further interpretative information is available in the Laboratory Services Policy Manual on the [facility] [address] [employer]et at: [email or web address] hospitalMeiaojuclevel[email or web address]/ Blood specimen (specimen) 02/22/2012 7:24 PM CDT 02/22/2012 7:33 PM CDT Reji Noel MD CHEMISTRY ORD ERABLES [facility]# [id number] [address] [place] [place] [address] documented in this encounter Visit Diagnoses Diagnosis [...] Given 02/22/2012 9:48 PM CDT 4 mg [id number] TOP. PACKET 1 dose, Starting on Mon03/02/12 [...] Ada Cullen, JIE)1742 (Given - Provider: Ada Clulen, JIE)1800 (Canceled Entry - Provider: Ada Cullen [...] RN - Comment: [phone] (Given - Provider: Ahsanti Carter, Student Nurse - Comment: blood glucose [...] Student Nurse) 0009 (Given - Provider: Carrie lAonzo, JIE)0615 (Given - Provider: Carrie Alonzo, JIE) [...] 24 Hours 0611 (Rate Verify - Provider: aRchell Waterman RN)1022 (Rate Verify - Provider: Ada [...] No Frequency Medication Order 03/01/2012 03/02/2012 03/03/2012 [id number] TOP. PACKET (COMPLETED) 1 dose, Starting on 03/02/12 at 1754, Until 03/02/12 at 1756, [place] OMNICELL: cabinet override 1756 (Given - Provider: Ashanti Carter, Student Nurse - Comment: Picc Site) documented in this encounter Care Teams Cdl Program Coordinator Relationship Specialty Start Date End Date Martin Kelley MD PCP - General Internal Medicine 02/16/12 08/14/17 documented as of this encounter
--- OUTSIDE RECORDS SUMMARY | 2024-10-24 06:42 | XMS_ITS | Encounter Summary ---
Author Organization [facility] Address [address] [place] [address] Care Team Providers Care Vamp Throater Name Role Phone Martin Kelley MD Primary Care Provider [phone] Reason for Visit * Reason Onset Date Comments Results 04/13/2012 Encounter Details Date Type Department Care Team (Late st Contact Info) Description 04/13/2012 Telephone [facility] [address] [place] [address] Katie Steele MD NO ADDRESS [...] [facility] G[facility] [place] [address] [place] [address] Kitty Dover, [facility] [address] [place] [address] documented as of this encounter Visit Diagnoses Not on filedocumented in this encounter Care Teams Vamp Throater Relationship Specialty Start Date End Date Martin Kelley MD PCP - General Internal Medicine 02/16/12 08/14/17 documented as of this encounter
--- OUTSIDE RECORDS SUMMARY | 2024-10-24 06:42 | XMS_ITS | Encounter Summary ---
Author Organization [facility] Address [address] [place] [address] Care Team Providers Care Bilingual Medical Assistant Name Role Phone Martin Kelley MD Primary Care Provider [phone] Reason for Visit * Auth/Cert - Closed Specialty Diagnoses / Procedures Referred By Lambert t Referred To Contact Gastroenterology Diagnoses UC (ULCERATIVE COLITIS) [556.9] Procedures ILEOSCOPY [facility] [address] [place] [address] Referral ID Status Reason Start Date Expiration Date Visits Re quested Visits Authorized [id number] Closed 1 1 Encounter Details Date Type Department Care Team (Latest Contact Info) Description 06/12/2012 7:28 AM CDT - 06/12/2012 10:38 AM CDT Hospital Encounter [facility] Jayson Mack [address] [facility] [place] [address] Katie Steele MD NO ADDRESS [...] 12/08/2009 COLONOSCOPY performed by LOUISE SOTELO at [facility] ??? Pr sigmoidoscopy,diagnostic 02/16/2012 SIGMOIDOSCOPY FLEXIBLE performed by Louise Sotelo MD at [facility] ??? Pr endoscopy of bowel pouch 02/16/2012 POUCHOSCOPY performed by Louise Sotelo MD at [facility] ??? Pr upper gi endoscopy,diagnosis 02/28/2012 ESOPHAGOGASTRODUODENOSCOPY performed by Katie Steele MD at [facility] ??? Pr small bowel endoscopy,biopsy 02/28/2012 BOWEL SMALL BIOPSY ENDOSCOPIC performed by Katie Steele MD at [facility] Prescriptions prior to [...] this encounter Procedure Notes * Sebastian Alejandro [facility] - 06/14/2012 8:01 PM CDTAssociated Order(s): GI REPORT * Katie Steele MD - 06/12/2012 6:21 PM CDTAssociated Order(s): GI REPORT [place], [place] [address] Gastroenterology CSN: [id number] DATE OF SERVICE: SMALL BOWEL ENDOSCOPY INDICATIONS [...] with him the option of going to [facility]. He is advised to see me back in the office in 1 month. JSF:MEDQ DID: [id number] Dictated by: Katie Steele MD documented in this encounter OR Notes * OR Anesthesia - Stl Scanning, [facility] - 06/14/2012 8:01 PM CDT Electronically signed by Reggie Ok [facility] Stl Home Health Aide Incoming at 06/14/2012 8:01 PM CDT * [...] and not increasing, 0=growing area of wetness] [facility] Modified Rebekah Score: Score: 19 (06/12/12928) COMMENTS: No apparent Anesthesia related complications Ed [place] Perez 06/12/2012 10:36 AM * OR Anesthesia - Estella Payne MD - 06/12/2012 8:31 AM CDT GI Lab Pre-Anesthesia Evaluation - Long Form 06/12/2012 8:32 AM Name: Mukul Huber Age: 41 y.o. Sex: male CSN: [id number] Procedure: Procedure(s): ILEOSCOPY Surgeons/Assistants: Surgeon(s) and Role: [...] 12/08/2009 COLONOSCOPY performed by LOUISE SOTELO at [facility] ??? Pr sigmoidoscopy,diagnostic 02/16/2012 SIGMOIDOSCOPY FLEXIBLE performed by Louise Sotelo MD at [facility] ??? Pr endoscopy of bowel pouch 02/16/2012 POUCHOSCOPY performed by Louise Sotelo MD at [facility] ??? Pr upper gi endoscopy,diagnosis 02/28/2012 ESOPHAGOGASTRODUODENOSCOPY performed by Katie Steele MD at [facility] ??? Pr small bowel endoscopy,biopsy 02/28/2012 BOWEL SMALL BIOPSY ENDOSCOPIC performed by Katie Steele MD at [facility] History Substance Use [...] Notes * Scanned Form - Stl Scanning, [facility] - 06/14/2012 8:01 PM CDT Electronically signed by Reggie Ok [facility] Stl Home Health Aide Incoming at 06/14/2012 8:01 PM CDT * Scanned Form - Stl Scanning, [facility] - 06/14/2012 8:01 PM CDT * Patient Instructions - Stl Javon, Faizan - 06/14/2012 8:01 PM CDT Electronically signed by Interface, [facility] Home Health Aide Incoming at 06/14/2012 8:01 PM CDT documented in this encounter Plan of Treatment Upcoming Encounters Date Type Department Care Team (Late st Contact Info) Description 02/13/2025 10:30 AM CDT Office Visit [facility] IBD [facility]ology [facility] [place] [address] [place] [address] Kitty Dover, MIRTA [address] [place] [address] documented as of this encounter [...] Steele MD - 06/12/2012 6:21 PM CDT [place], [place] [address] Gastroenterology CSN: [id number] DATE OF SERVICE: SMALL BOWEL ENDOSCOPY INDICATIONS [...] back in the officein 1 month. JSF:MEDQ DID:[id number] Dictated by: Katie Steele MD [facility] Scanning, [facility] - 06/14/2012 8:01 PM CDT Katie Steele MD GI PROCEDURE [facility] * PATHOLOGY (06/12/2012 12:15 PM CDT) SURGICAL PATHOLOGY ?[facility] ?[address] ? [place], [place] ??[address] ? Patient: ??MUKUL HUBER S ? : ??1970 ? Procedure Date: ??06/12/2012 ? Accession Date: ??06/12/2012 ? Case No: ??[id number] ? Ordering Dr: ??KATIE STEELE ? Case type SW is performed by [facility], [address] [place] [address], ? [place], [place] ??[address]; all other case types are performed by [facility] ? [facility], [address] [place], [place] ??[address] ?SURGICAL PATHOLOGY & NON-GYNECOLOGIC CYTOPATHOLOGY REPORT ? [...] ? Microscopic: ? The slides are labeled [id number], Mukul Huber. ? Sections of the ileum [...] appearance is compared to the previous biopsies ([id number]) from February ? 2011, and both show similar histologic features. ? CJ/PJS 06.13.2012 10:14 am ? Staging Form: ? No ? ELECTRONIC SIGNATURE FOR SHANNAN CEDENO MD- 06/13/12 03:01 pm [facility] 06/12/2012 12:1 5 PM CDT Katie Steele MD PATHOLOGY/CYTOLOGY O RDERABLES [facility] CLIA# [id number] [address] [place] [address] * CLOSTRIDIUM DIFFICILE TOXIN (06/12/2012 9:25 AM CDT) C DIFF TOXIN PCR RESULT Negative Negative [facility] C DIFF TOXIN PCR SOURCE Stool [facility] Stool specimen (specimen) 06/12/2012 9:25 AM CDT 06/12/2012 12:11 PM CDT Comment:STOOL Katie Steele MD MICROBIOLOGY - GENER AL ORDERABLES [facility] SERVICES - [facility] CLIA# [id number] [address] [place] [address] documented in this encounter Visit Diagnoses Not [...] RN) documented in this encounter Care Teams Bilingual Medical Assistant Relationship Specialty Start Date End Date Martin Kelley MD PCP - General Internal Medicine 02/16/12 08/14/17 documented as of this encounter
--- OUTSIDE RECORDS SUMMARY | 2024-10-24 06:42 | XMS_ITS | Encounter Summary ---
Author Organization [facility] Address [address] [place] [address] Care Team Providers Care Bread And Pastry Baker Name Role Phone Jasiel Freeman MD Primary Care Provider Encounter Details Date Type Department Care Team (Late st Contact Info) Description 02/29/[address] [facility] GASTROENTEROLOGY [address] [facility] [address] [place] [address] Lane Ryan MD NO ADDRESS [...] AM CDT Office Visit [facility] IBD and Gastroenterology [facility] [place] [address] [place] [address] Kitty Dover, ANP [address] [place] [address] documented as of this encounter Visit Diagnoses Diagnosis Ulcerative colitis- Primary Ulcerative colitis, unspecified documented in this encounter Additional Health Concerns Infection Onset Date Last Indicated Resolved Time R/O C. diff 08/11/2022 08/10/2022 08/11/2022 2:45 PM CDT R/O C. diff 12/11/2022 12/09/2022 12/11/2022 1:26 PM BENCH GRINDER R/O C. diff 10/17/2024 10/17/2024 10/17/2024 6:55 PM BENCH GRINDER documented as of this encounter Care Teams Bread And Pastry Baker Relationship Specialty Start Date End Date Jasiel Freeman MD [address] [place] [address] PCP - General Family Practice 08/15/17 documented as of this encounter
--- OUTSIDE RECORDS SUMMARY | 2024-10-24 06:42 | XMS_ITS | Encounter Summary ---
Author Organization [facility] Address [address] [place] [address] Care Team Providers Care Head Of English Name Role Phone Martin Kelley MD Primary Care Provider [phone] Reason for Visit * Reason Onset Date Comments Nausea 06/04/2012 Abdominal Cramping 06/04/2012 Diarrhea 06/04/2012 Encounter Details Date Type Department Care Team (Late st Contact Info) Description 06/04/2012 Telephone [facility] GASTROENTEROLOGY [address] [facility] [address] [place] [address] Lane Ryan MD NO ADDRESS [...] [facility] IBD [facility] Gastroenterology [facility] [place] [address] [facility] [address] [place] [address] Kitty Dover, [facility] [address] [facility] [address] [place] [address] documented as of this encounter Visit Diagnoses Not on filedocumented in this encounter Care Teams Head Of English Relationship Specialty Start Date End Date Martin Kelley MD PCP - General Internal Medicine 02/16/12 08/14/17 documented as of this encounter
--- OUTSIDE RECORDS SUMMARY | 2024-10-24 06:42 | XMS_ITS | Encounter Summary ---
Author Organization [facility] Address [address] [place] [address] Care Team Providers Care Reception Name Role Phone Martin Kelley MD Primary Care Provider [phone] Encounter Details Date Type Department Care Team (Late st Contact Info) Description 06/21/2012 Abstract [facility] GASTROENTEROLOGY [address] [facility] [address] [place] [address] Lane Ryan MD NO ADDRESS [...] [address] [facility] [address] [place] [address] Kitty Dover ANP [address] [facility] [address] [place] [address] documented as of this encounter Visit Diagnoses Not on filedocumented in this encounter Care Teams Reception Relationship Specialty Start Date End Date Martin Kelley MD PCP - General Internal Medicine 02/16/12 08/14/17 documented as of this encounter
--- OUTSIDE RECORDS SUMMARY | 2024-10-24 06:42 | XMS_ITS | Encounter Summary ---
Author Organization [facility] Address [address] [place] [address] Care Team Providers Care Stem Roller Operator Name Role Phone Martin Kelley MD Primary Care Provider [phone] Encounter Details Date Type Department Care Team (Latest Contact Info) Description 06/05/2012 12:54 PM CDT - 06/05/2012 11:59 PM CDT Hospital Encounter [facility] [address] [place] [address] Lane Ryan MD NO ADDRESS [...] 06/05/2012 2:00 PM CDT Admit ambulatory to [facility] for Remicade. Pt states that he is [...] [facility] IBD and Gastroenterology Center [place] [address] [facility] [address] [place] [address] Kitty Dover, ANP [address] [facility] [address] [place] [address] documented as of this encounter [...] mL/hr documented in this encounter Care Teams Stem Roller Operator Relationship Specialty Start Date End Date Martin Kelley MD PCP - General Internal Medicine 02/16/12 08/14/17 documented as of this encounter
--- OUTSIDE RECORDS SUMMARY | 2024-10-24 06:42 | XMS_ITS | Encounter Summary ---
Author Organization [facility] Address [address] [place] [address] Care Team Providers Care Timber Feller Name Role Phone Martin Kelley MD Primary Care Provider [phone] Reason for Visit * Reason Comments Abdominal Pain c/o low abd pain x 2 weeks, nausea and vomiting started today, denies fever * Auth/Cert - Closed Specialty Diagnoses / Procedures Referred By Contac t Referred To Contact Emergency Medicine [facility] Emergency Dept [address] [place] [address] Referral ID Status Reason Start Date Expiration Date Visits Re quested Visits Authorized [id number] Closed 1 1 Encounter Details Date Type Department Care Team (Late st Contact Info) Description 07/26/2012 9:12 AM CDT - 07/26/2012 12:47 PM CDT Emergency [facility] Emergency Department [address] [place] [address] Girish Abreu MD [address] [facility] [place] [address] Nausea vomiting and diarrhea; Inflammatory [...] Everywhere. * ULCERATIVE COLITIS: AFTER YOUR VISIT (ESTONIAN) * NAUSEA AND VOMITING: AFTER YOUR VISIT (ESTONIAN) * DIARRHEA: AFTER YOUR VISIT (ESTONIAN) documented in this encounter Medications at Time [...] (41) M Admit Date: 07/26/2012 MR No: [id number] Discharge Date: 07/26/2012 ER/EMERGENCY [place], [place] [address] Consultation CSN: [id number] DATE OF SERVICE: HISTORY OF PRESENT ILLNESS [...] increasing diarrhea recently. He was hospitalized at [facility] and was treated for infection and had [...] may even possibly add methotrexate. JSF:MEDQ DID: [id number] Dictated by: Lane Ryan MD documented in this encounter ED [...] - 07/26/2012 10:30 AM CDT Up to [facility]- lg diarrhea stool. * Girish Abreu MD [...] 12/08/2009 COLONOSCOPY performed by LOUISE RIZO at [facility] ??? Pr sigmoidoscopy,diagnostic 02/16/2012 SIGMOIDOSCOPY FLEXIBLE performed by Louise Rizo MD at [facility] GI [facility] ??? Pr endoscopy of bowel pouch 02/16/2012 POUCHOSCOPY performed by Louise Rizo MD at [facility] GI LAB ??? Pr upper gi endoscopy,diagnosis 02/28/2012 [address] performed by Lane Ryan MD at [facility] GI LAB ??? Pr small bowel endoscopy,biopsy 02/28/2012 BOWEL SMALL BIOPSY ENDOSCOPIC performed by Lane Ryan MD at [facility] GI [facility] ??? Pr small bowel endoscopy,past 2nd duod 06/12/2012 SMALL BOWEL ENTEROSCOPY performed by Lane Ryan MD at [facility] GI [facility] ??? Pr dilation rectal stricture w anest 06/12/2012 RECTAL STRICTURE DILATATION performed by Lane Ryan MD at [facility] Family History Problem Relation [...] warnings given. Follow Up: Lane Ryan MD [address] [place] [id number] in 1 week CLINICAL IMPRESSION Encounter Diagnoses [...] - 07/26/2012 9:40 AM CDT Up to [facility] for diarrhea. * Summary-Susie Arzola RN - [...] [facility] [place] [address] [place] [address] Kitty Dover, MIRTA [address] [place] [address] documented as of this encounter [...] C DIFF TOXIN PCR RESULT Negative Negative [facility] C DIFF TOXIN PCR SOURCE Stool [facility] Stool specimen (specimen) 07/26/2012 10:46 AM CDT 07/26/2012 11:52 AM CDT Comment:STOOL Girish Abreu MD MICROBIOLOGY - GENER AL ORDERABLES Performing Organization Address [facility] de Phone Number [id number] [address] [place] [address] * (ABNORMAL) STOOL CULTURE (07/26/2012 10:46 AM CDT) Pathologist [facility] E. COLI SHIGA TOXIN REPORT Unable to perform Shiga toxin testing due to lack of growth in selective testing media.(A) [facility] FINAL MICRO REPORT Only Gram Positive fecal vadim isolated No Salmonella isolated. No Shigella isolated. No Escherichia coli serogroup O157:H7 isolated. No Campylobacter isolated.(A) [facility] Stool specimen (specimen) 07/26/2012 10:46 AM CDT 07/26/2012 11:52 AM CDT Comment:STOOL Girish Abreu MD MICROBIOLOGY - GENER AL ORDERABLES Performing Organization Address [facility] Co de Phone Number [facility] [id number] [address] [facility] [place] [place] [address] * (ABNORMAL) C-REACTIVE PROTEIN (07/26/2012 9:35 AM CDT) CRP 2.7(H) 0.0 - 0.8 mg/dL [facility] Blood specimen (specimen) 07/26/2012 9:35 AM CDT 07/26/2012 9:35 AM CDT Girish Abreu MD CHEMISTRY ORDERABLES [facility] CLIA# [id number] [address] [facility] [place] [address] * (ABNORMAL) COMPREHENSIVE METABOLIC PANEL (07/26/2012 9:35 AM CDT) SODIUM 139 135 - 145 mmol/L [facility] POTASSIUM 3.9 3.5 - 4.9 mmol/L [facility] CHLORIDE 106 96 - 108 mmol/L [facility] CO2 20(L) 22 - 30 mmol/L [facility] CALCIUM 9.2 8.6 - 10.2 mg/dL [facility] BUN 10 6 - 20 mg/dL [facility] CREATININE 0.87 0.67 - 1.17 mg/dL [facility] GLUCOSE 88 65 - 99 mg/dL [facility] TOTAL PROTEIN 7.1 6.3 - 8.6 g/dL [facility] ALBUMIN 4.0 3.4 - 4.8 g/dL [facility] BILIRUBIN TOTAL 0.3 0.2 - 1.0 mg/dL [facility] ALKALINE PHOSPHATASE 61 40 - 129 U/L [facility] AST 16 12 - 38 U/L [email or web address] ALT 20 0 - 41 U/L [email or web address] GFR, >60 >=60 mL/min/1. 7 sq meter [facility] GFR >60 >=60 mL/min/1. 7 sq meter [email or web address] Comment: GFR is calculated using the IDMS-Traceable Modification of Diet in Renal Disease (MDRD) Study formula and is only valid for patients 18 years or older. Further interpretative information is available in the Laboratory Services Policy Manual on the [facility] Intranet at: [email or web address]/ Blood specimen (specimen) 07/26/2012 9:35 AM CDT 07/26/2012 9:35 AM CDT Girish Abreu MD CHEMISTRY ORDERABLES [facility] CLIA# [id number] [address] [place] [address] * (ABNORMAL) CBC WITH DIFFERENTIAL (07/26/2012 9:35 AM CDT) WBC 5.6 4.0 - 9.8 K/uL [facility] - [facility] RBC 4.83 4.50 - 5.40 M/uL [facility] HEMOGLOBIN 13.5(L) 13.6 - 16.5 g/dL [facility] HEMATOCRIT 42.0 40.0 - 48.0 % [facility] LABORATORY SERVICES - . [facility] MCV 87.0 82.0 - 99.0 fL [facility] LABORATORY SERVICES - [facility] MCH 28.0 27.2 - 32.6 pg [facility] MCHC 32.1 31.5 - 35.5 % [facility] - [facility] PLATELETS 303 140 - 350 K/uL [facility] MPV 9.6 9.3 - 12.4 fL Vaughn Burton LABORATORY SERVICES [facility] RDW 14.5 11.5 - 14.5 % [facility] LABORATORY SERVICES - [facility] RDW-STDEV 45.7 37.1 - 48.7 fL [facility] - . [facility] NEUTROPHILS 71(H) 45 - 70 % [facility] LABORATORY SERVICES - . [facility] LYMPHOCYTES 12(L) 16 - 45 % [facility] LABORATORY SERVICES - . [facility] MONOCYTES 16(H) 3 - 13 % [facility] LABORATORY SERVICES - . EMILY EOSINOPHILS 1 0 - 7 % [facility] LABORATORY SERVICES - . EMILY BASOPHILS 0 0 - 2 % [facility] LABORATORY SERVICES - . [facility] NEUTROPHIL ABSOLUTE 3.97 1.90 - 7.00 K/uL Vaughn Burton LABORATORY SERVICES - [facility] LYMPHOCYTE ABSOLUTE 0.66(L) 0.70 - 4.50 K/uL [facility] - [facility] MONOCYTE ABSOLUTE 0.90 0.10 - 1.30 K/uL [facility] - [facility] EOSINOPHIL ABSOLUTE 0.05 0.00 - 0.70 K/uL [facility] - [facility] BASOPHILS ABSOLUTE 0.02 0.00 - 0.20 K/uL [facility] - [facility] Blood specimen (specimen) 07/26/2012 9:35 AM CDT 07/26/2012 9:35 AM CDT Girish Abreu MD HEMATOLOGY ORDERABLE S [facility] [id number] [address] [facility] [address] [place] [address] documented in this encounter Visit Diagnoses Diagnosis [...] RN) documented in this encounter Care Teams Timber Feller Relationship Specialty Start Date End Date Martin Kelley MD PCP - General Internal Medicine 02/16/12 08/14/17 documented as of this encounter
--- OUTSIDE RECORDS SUMMARY | 2024-10-24 06:42 | XMS_ITS | Encounter Summary ---
Author Organization [facility] Address [address] [place] [address] Care Team Providers Care Curb Supervisor Name Role Phone Martin Kelley MD Primary Care Provider [phone] Encounter Details Date Type Department Care Team (Latest Contact Info) Description 03/08/2012 Orders Only [facility] GASTROENTEROLOGY [address] [place] [address] Lane Ryan MD NO ADDRESS [...] [facility] G[facility] [place] [address] [place] [address] Kitty Dover, MIRTA [address] [place] [address] documented as of this encounter Visit Diagnoses Diagnosis Ulcerative (chronic) enterocolitis- Primary documented in this encounter Care Teams Curb Supervisor Relationship Specialty Start Date End Date Martin Kelley MD PCP - General Internal Medicine 02/16/12 08/14/17 documented as of this encounter
--- OUTSIDE RECORDS SUMMARY | 2024-10-24 06:42 | XMS_ITS | Encounter Summary ---
Author Organization [facility] Address [address] [place] [address] Care Team Providers Care Floor Clerk Name Role Phone Martin Kelley MD Primary Care Provider [phone] Reason for Visit * Reason Comments Abdominal [...] Contac t Referred To Contact Emergency Medicine [facility] Emergency Dept [address] [place] [address] Referral ID Status Reason Start Date Expiration Date Visits Re quested Visits Authorized [id number] Closed 1 1 Encounter Details Date Type Department Care Team (Latest Contact Info) Description 06/26/2012 12:03 AM CDT - 06/27/2012 5:22 PM CDT Hospital Encounter [facility] [address] [place] [address] Johny Muniz DO NO ADDRESS ON FILE Myrtle Valdovinos MD NO ADDRESS ON FILE James Pang MD [address] [facility] [address] [place] [address] Abdominal pain Discharge Disposition: Home [...] Pang MD - 06/27/2012 4:33 PM CDT [facility] Adult Hospitalist Discharge Summary Patient Name: Edgardo Elkins / 41 y.o. / male : 1970 Primary Care Physician: Martin Kelley MD Date of Admission: 06/26/2012 [...] including IVF / Ciprofloxacin / Morphine & [place] prn / Zofran prn. He was commenced [...] increase activity as tolerated and no smoking. [facility] [place] [place] encourages all patients to decrease risks associated with smoking and second hand smoke exposure. If you smoke you are advised to quit. Ask your health care provider for advice if you need assistance to stop smoking. Avoid second-hand smoke exposure and do not let people smoke in your home. Please call [phone], our pulmonary rehabilitation department, to learn more about options to reduce your risks. DIET Your diet is: low residue/fiber PAIN Patient pain level at discharge 12/02, continue pain control therapies as prescribed. Edgardo Elkisn will be discharged via wheelchair to home. [...] appearance is compared to the previous biopsies ([id number]) from February 2012, and both show similar [...] the patient's hospital floor. Whitley Nichols PA-C [facility] Digestive Disease Pager:[phone] I have discussed the case with the PA and have reviewed the note as entered and agree with the assessment and plan with notable amendments, if any, mentioned below. * James Pang MD - 06/27/2012 12:05 PM CDT [facility] Adult Hospitalist Progress Note Admit Date: 06/26/2012 [...] DVT Prophylaxis - Current Diet Fiber Restricted Ebnito: IV: PT/OT: Current Planned Disposition - Plan discussed with patient; questions answered; patient agrees with current plan. Current Code Status -Prior Approx min were spent in the care of this patient today; this may include family conference, nursing conference and discussion with any c consultant. James Pang MD [facility] Hospitalist [phone] (p) documented in this encounter H&P Notes * James Pang MD - 06/26/2012 8:55 AM CDT [facility] Adult Hospitalist Admission H & P Patient [...] COLONOSCOPY performed by LOUISE SOTELO at [facility] ??? Pr sigmoidoscopy,diagnostic 02/16/2012 SIGMOIDOSCOPY FLEXIBLE performed by Louise Sotelo MD at [facility] ??? Pr endoscopy of bowel pouch 02/16/2012 POUCHOSCOPY performed by Louise Sotelo MD at [facility] ??? Pr upper gi endoscopy,diagnosis 02/28/2012 ESOPHAGOGASTRODUODENOSCOPY performed by Lane Ryan MD at [facility] ??? Pr small bowel endoscopy,biopsy 02/28/2012 BOWEL SMALL BIOPSY ENDOSCOPIC performed by Lane Ryan MD at [facility] ??? Pr small bowel endoscopy,past 2nd duod 06/12/2012 SMALL BOWEL ENTEROSCOPY performed by Lane Ryan MD at [facility] ??? 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 Await his opinion. Further management as per [...] pending the above results. James Pang MD [phone] (P) documented in this encounter Consult Notes [...] COLONOSCOPY performed by LOUISE SOTELO at [facility] ??? Pr sigmoidoscopy,diagnostic 02/16/2012 SIGMOIDOSCOPY FLEXIBLE performed by Louise Sotelo MD at [facility] ??? Pr endoscopy of bowel pouch 02/16/2012 POUCHOSCOPY performed by Louise Sotelo MD at [facility] ??? Pr upper gi endoscopy,diagnosis 02/28/2012 ESOPHAGOGASTRODUODENOSCOPY performed by Lane Ryan MD at [facility] ??? Pr small bowel endoscopy,biopsy 02/28/2012 BOWEL SMALL BIOPSY ENDOSCOPIC performed by Lane Ryan MD at [facility] ??? Pr small bowel endoscopy,past 2nd duod 06/12/2012 SMALL BOWEL ENTEROSCOPY performed by Lane Ryan MD at [facility] ??? Pr dilation rectal stricture w anest 06/12/2012 RECTAL STRICTURE DILATATION performed by Lane Ryan MD at [facility] Current Medications: Prior to Admission [...] or wheezing Cardiac: No CP, SOB,HX of NC, or angina GI: No n/v, no abdominal [...] to discharge D/w Dr Riya Santos, DO [phone] PGY3 * Luciana Hardy, DO - 06/26/2012 [...] next OV [facility]. Pt presents today with abdominal cramping with severity of 3-4/10 and increased stools up to 7-8 loose stools in 24 hours. He normally has 3-4 loose stools a day. 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 He wanted to get ahead of his [...] COLONOSCOPY performed by LOUISE SOTELO at [facility] ??? Pr sigmoidoscopy,diagnostic 02/16/2012 SIGMOIDOSCOPY FLEXIBLE performed by Louise Sotelo MD at [facility] ??? Pr endoscopy of bowel pouch 02/16/2012 POUCHOSCOPY performed by Louise Sotelo MD at [facility] ??? Pr upper gi endoscopy,diagnosis 02/28/2012 ESOPHAGOGASTRODUODENOSCOPY performed by Lane Ryan MD at [facility] ??? Pr small bowel endoscopy,biopsy 02/28/2012 BOWEL SMALL BIOPSY ENDOSCOPIC performed by Lane Ryan MD at [facility] ??? Pr small bowel endoscopy,past 2nd duod 06/12/2012 SMALL BOWEL ENTEROSCOPY performed by Lane Rayn MD at [facility] ??? Pr dilation rectal stricture w anest 06/12/2012 RECTAL STRICTURE DILATATION performed by Lane Ryan MD at [facility] Prescriptions prior to [...] COLONOSCOPY performed by LOUISE SOTELO at [facility] ??? Pr sigmoidoscopy,diagnostic 02/16/2012 SIGMOIDOSCOPY FLEXIBLE performed by Louise Sotelo MD at [facility] ??? Pr endoscopy of bowel pouch 02/16/2012 POUCHOSCOPY performed by Louise Sotelo MD at [facility] ??? Pr upper gi endoscopy,diagnosis 02/28/2012 ESOPHAGOGASTRODUODENOSCOPY performed by Lane Ryan MD at [facility] ??? Pr small bowel endoscopy,biopsy 02/28/2012 BOWEL SMALL BIOPSY ENDOSCOPIC performed by Lane Ryan MD at [facility] ??? Pr small bowel endoscopy,past 2nd duod 06/12/2012 SMALL BOWEL ENTEROSCOPY performed by Lane Ryan MD at [facility] ??? Pr dilation rectal stricture w anest 06/12/2012 RECTAL STRICTURE DILATATION performed by Lane Ryan MD at [facility] [...] Administered During the ED Stay from 06/25/2012 9146 to 06/26/2012 0402 Date/Time Order Dose Route [...] patient education on discharged patients. * Tess Amor RN - 06/26/2012 12:15 AM CDT Pt [...] Notes * Scanned Form - Stl Scanning, [facility] - 07/01/2012 5:28 PM CDT Electronically signed by Reggie [facility] Stl Facing Cutting Machine Operator Incoming at 07/01/2012 5:28 PM CDT * Patient Instructions - Stl Scanning, [facility] - 07/01/2012 5:28 PM CDT Electronically signed by Reggie [facility] Stl Facing Cutting Machine Operator Incoming at 07/01/2012 5:28 PM CDT * Care Plan - Mary Conley RN - 06/27/2012 5:20 PM CDT Problem: General Plan of Care (Adult, Obstetrics) Goal: Individualization/Patient-Specific Goal (Adult, Obstetrics) The patient and/or their medical billing representative will achieve their patient-specific goals related [...] Goal (Adult, Obstetrics) The patient and/or their medical billing representative will achieve their patient-specific goals related to the plan of care. The patient-specific goals include: Edgardo will have minimal pain by time of discharge. Outcome: Progressing Edgardo c/o cramping abd pain. Relief given with 10mg [place]. Verbalized no relief with bentyl. Tolerating full liquid diet without difficulty. Advanced to low residue for breakfast. Still having loose stool. Cipro given per MD order. Blood cultures positive with gram positive cocci. bilingual call center representative Susanney notified. Rested well overnight with at bedside. * Care Plan - Mary Conley RN - 06/26/2012 4:05 PM CDT Problem: General Plan of Care (Adult, Obstetrics) Goal: Individualization/Patient-Specific Goal (Adult, Obstetrics) The patient and/or their medical billing representative will achieve their patient-specific goals related [...] [facility] [address] [place] [id number] Kitty [place] [facility] [address] [place] [id number] documented as of this encounter Procedures Procedure [...] 12/08/2009 ??COLONOSCOPY performed by LOUISE SOTELO at [facility] ? ? Pr sigmoidoscopy,diagnostic 02/16/2012 ??SIGMOIDOSCOPY FLEXIBLE performed by Louise Sotelo MD at [facility] ? ? Pr endoscopy of bowel pouch 02/16/2012 ??POUCHOSCOPY performed by Louise Sotelo MD at [facility] ? ? Pr upper gi endoscopy,diagnosis 02/28/2012 ??ESOPHAGOGASTRODUODENOSCOPY performed by Lane Ryan MD at [facility] ? ? Pr small bowel endoscopy,biopsy 02/28/2012 ??BOWEL SMALL BIOPSY ENDOSCOPIC performed by Lane Ryan MD at [facility] ? ? Pr small bowel endoscopy,past 2nd duod 06/12/2012 ??SMALL BOWEL ENTEROSCOPY performed by Lane Ryan MD at [facility] ? ? Pr dilation rectal stricture w anest 06/12/2012 ??RECTAL STRICTURE DILATATION performed by Lane Ryan MD at [facility] Current Medications: Prior to Admission [...] or wheezing Cardiac: No CP, SOB,HX of NC, or angina GI: ??No n/v, no abdominal [...] to discharge D/w Dr Riya Santos, DO [phone] PGY3 Procedure Note Raleigh Ritter MD - [...] COLONOSCOPY performed by LOUISE SOTELO at [facility] ? ? Pr sigmoidoscopy,diagnostic 02/16/2012 SIGMOIDOSCOPY FLEXIBLE performed by Louise Sotelo MD at [facility] ? ? Pr endoscopy of bowel pouch 02/16/2012 POUCHOSCOPY performed by Louise Sotelo MD at [facility] ? ? Pr upper gi endoscopy,diagnosis 02/28/2012 ESOPHAGOGASTRODUODENOSCOPY performed by Lane Ryan MD at [facility] ? ? Pr small bowel endoscopy,biopsy 02/28/2012 BOWEL SMALL BIOPSY ENDOSCOPIC performed by Lane Ryan MD at [facility] ? ? Pr small bowel endoscopy,past 2nd duod 06/12/2012 SMALL BOWEL ENTEROSCOPY performed by Lane Ryan MD at [facility] ? ? Pr dilation rectal stricture w anest 06/12/2012 RECTAL STRICTURE DILATATION performed by Lane Ryan MD at [facility] Current Medications: Prior to Admission Medications [...] or wheezing Cardiac: No CP, SOB,HX of NC, or angina GI: No n/v, no abdominal [...] to discharge D/w Dr Riya Santos, DO [phone] PGY3 James Pang MD INPATIENT CONSULT OR DERABLES * (ABNORMAL) C-REACTIVE PROTEIN (06/27/2012 5:50 AM CDT) CRP 11.9(H) 0.0 - 0.8 mg/dL [facility] Blood specimen (specimen) 06/27/2012 5:50 AM CDT 06/27/2012 3:13 PM CDT James Pang MD CHEMISTRY ORDERABLES [facility] BRIGHT# [id number] [address] [facility] [address] * (ABNORMAL) COMPREHENSIVE METABOLIC PANEL (06/27/2012 5:50 AM CDT) SODIUM 137 135 - 145 mmol/L [facility] POTASSIUM 3.9 3.5 - 4.9 mmol/L [facility] CHLORIDE 106 96 - 108 mmol/L [facility] CO2 24 22 - 30 mmol/L [facility] CALCIUM 8.4(L) 8.6 - 10.2 mg/dL [facility] BUN 8 6 - 20 mg/dL [facility] CREATININE 0.94 0.67 - 1.17 mg/dL [facility] GLUCOSE 98 65 - 99 mg/dL [facility] TOTAL PROTEIN 5.9(L) 6.3 - 8.6 g/dL [facility] ALBUMIN 3.1(L) 3.4 - 4.8 g/dL [facility] BILIRUBIN TOTAL 0.3 0.2 - 1.0 mg/dL [facility] ALKALINE PHOSPHATASE 51 40 - 129 U/L [facility] AST 17 12 - 38 U/L [facility] ALT 24 0 - 41 U/L [facility] GFR, >60 >=60 mL/min/1. 7 sq meter [facility] GFR >60 >=60 mL/min/1. 7 sq meter [facility] Comment: GFR is calculated using the IDMS-Traceable Modification of Diet in Renal Disease (MDRD) Study formula and is only valid for patients 18 years or older. Further interpretative information is available in the Laboratory Services Policy Manual on the [facility] [place] [place] Intranet at: [email or web address] [email or web address] Blood specimen (specimen) 06/27/2012 5:50 AM CDT 06/27/2012 6:46 AM CDT James Pang MD CHEMISTRY ORDERABLES [facility] CLIA# [id number] [address] [facility] [place] [place] [address] * (ABNORMAL) CBC WITH DIFFERENTIAL (06/27/2012 5:50 AM CDT) WBC 4.6 4.0 - 9.8 K/uL [facility] RBC 4.05(L) 4.50 - 5.40 M/uL [facility] HEMOGLOBIN 11.2(L) 13.6 - 16.5 g/dL [facility] HEMATOCRIT 35.9(L) 40.0 - 48.0 % [facility] MCV 88.6 82.0 - 99.0 fL [facility] MCH 27.7 27.2 - 32.6 pg [facility] MCHC 31.2(L) 31.5 - 35.5 % [facility] PLATELETS 266 140 - 350 K/uL [facility] MPV 9.7 9.3 - 12.4 fL [facility] RDW 14.4 11.5 - 14.5 % [facility] RDW-STDEV 46.8 37.1 - 48.7 fL [facility] NEUTROPHILS 57 45 - 70 % [facility] LYMPHOCYTES 19 16 - 45 % [facility] MONOCYTES 21(H) 3 - 13 % [facility] EOSINOPHILS 3 0 - 7 % [facility] BASOPHILS 0 0 - 2 % [facility] NEUTROPHIL ABSOLUTE 2.64 1.90 - 7.00 K/uL [facility] LYMPHOCYTE ABSOLUTE 0.86 0.70 - 4.50 K/uL [facility] MONOCYTE ABSOLUTE 0.96 0.10 - 1.30 K/uL [facility] EOSINOPHIL ABSOLUTE 0.13 0.00 - 0.70 K/uL [facility] - [facility] BASOPHILS ABSOLUTE 0.02 0.00 - 0.20 K/uL [facility] Blood specimen (specimen) 06/27/2012 5:50 AM CDT 06/27/2012 6:46 AM CDT James Pang MD HEMATOLOGY ORDERABLE S Performing Organization Address [facility] Co de Phone Number [facility]# [id number] [address] [place] [address] * GIARDIA & CRYPTOSPORIDIUM ANTIGEN (06/26/2012 3:56 AM CDT) FINAL MICRO REPORT Negative Giardia antigen by ICT assay. Negative Cryptosporidium antigen by ICT assay. -- Note: ??A negative does not rule out infection. [facility] 06/26/2012 3:56 AM CDT 06/26/2012 4:11 AM CDT Comment:STOOL Narrative [facility] - 06/26/2012 7:28 AM CDT Per protocol [...] - GENER AL ORDERABLES Performing Organization Address [facility] Co de Phone Number [facility]# [id number] [address] [facility] [place] [address] * STOOL CULTURE (06/26/2012 3:56 AM CDT) FINAL MICRO REPORT No Salmonella isolated. No Shigella isolated. No Escherichia coli serogroup O157:H7 isolated. No Campylobacter isolated. [facility] E. COLI SHIGA TOXIN REPORT Negative E. coli Shiga toxin 1 by ICT assay. Negative E. coli Shiga toxin 2 by ICT assay. --Note: ??A negative does not rule out infection with enterohemorrhagic E. coli. [facility] - [facility] Stool specimen (specimen) 06/26/2012 3:56 AM CDT 06/26/2012 4:11 AM CDT Comment:STOOL Johny Muniz DO MICROBIOLOGY - GENER AL ORDERABLES Performing Organization Address [facility] Co de Phone Number [facility] CLIA# [id number] [address] [place], [place] [address] * CLOSTRIDIUM DIFFICILE TOXIN (06/26/2012 3:56 AM CDT) C DIFF TOXIN PCR RESULT Negative Negative [facility] C DIFF TOXIN PCR SOURCE Stool [facility] Stool specimen (specimen) 06/26/2012 3:56 AM CDT 06/26/2012 4:09 AM CDT Comment:STOOL Johny Muniz DO MICROBIOLOGY - GENER AL ORDERABLES Performing Organization Address [facility] Co de Phone Number [facility]ALTH[facility]# [id number] [address] [place], [place] [address] * CT ABDOMEN PELVIS W CONTRAST (06/26/2012 [...] FINAL MICRO REPORT No growth 24 hours [facility] 06/26/2012 1:39 AM CDT 06/26/2012 2:51 AM CDT Comment:URINE VOIDED Johny Muniz DO MICROBIOLOGY - GENER AL ORDERABLES Performing Organization Address City/[facility]/ZIP Co de Phone Number [facility] CLIA# [id number] [address] [place] [address] * (ABNORMAL) URINALYSIS (06/26/2012 1:39 AM CDT) COLOR UA Yellow [facility] CLARITY UA Clear Clear [facility] SPECIFIC GRAVITY UA 1.023 1.001 - 1.035 [facility] PH UA 5.5 5.0 - 8.0 [facility] LEUKOCYTE ESTERASE UA Trace(A) Negative [facility] NITRITE UA Negative Negative [facility] PROTEIN UA Trace(A) Negative [facility] GLUCOSE UA Negative Negative [facility] KETONES UA Trace(A) Negative [facility] UROBILINOGEN UA <1 <=1 mg/dL [facility] BILIRUBIN UA Negative Negative [facility] BLOOD UA Negative Negative [facility] WBC UA 8(H) 0 - 3 /HPF [facility] RBC UA 1 0 - 3 /HPF [facility] BACTERIA UA 1+(A) None Seen /HPF [facility] EPITHELIAL CELLS, URINE 0-2 /HPF [facility] 06/26/2012 1:39 AM CDT 06/26/2012 1:46 AM CDT Comment:URINE VOIDED Johny Muniz DO URINE ORDERABLES Performing Organization Address City/[facility]/ZIP Co de Phone Number [facility] - [facility] CLIA# [id number] [address] [place] [address] * URINALYSIS WITH REFLEX CULTURE (06/26/2012 1:39 AM CDT) Pathologist [facility] URINE CULTURE ORDER Culture ordered [facility] Comment: Criteria for a reflex culture [...] Muniz DO URINE ORDERABLES Performing Organization Address [facility] Co de Phone Number [facility] CLIA# [id number] [address] [facility] [address] * LACTIC ACID (06/26/2012 1:00 AM CDT) Pathologist [facility] LACTIC ACID 0.9 0.5 - 2.2 mmol/L [facility] Blood specimen (specimen) 06/26/2012 1:00 AM CDT 06/26/2012 1:08 AM CDT Johny Muniz DO CHEMISTRY ORDERABLES Performing Organization Address [facility] de Phone Number [facility] CLIA# [id number] [address] [facility] [place] [address] * BLOOD CULTURE (06/26/2012 1:00 AM CDT) Pathologist [facility] FINAL MICRO REPORT No growth [address] [facility] Blood specimen (specimen) 06/26/2012 1:00 AM CDT 06/26/2012 1:14 AM CDT Comment:BLOOD/ RAC Narrative [facility] - 07/01/2012 11:41 AM CDT X 2 15 MIN APART, 2 DIFFERENT SITES Johny Muniz DO MICROBIOLOGY - GENER AL ORDERABLES Performing Organization Address [facility]/ZIP Co de Phone Number [facility] CLIA# [id number] [address] [place] [address] * (ABNORMAL) BLOOD CULTURE (06/26/2012 1:00 AM CDT) FINAL MICRO REPORT Streptococcus viridans isolated. (1 bottle out of 2) Susceptibility on request only.(A) [facility] GRAM STAIN Gram Positive Cocci in chains seen (1 bottle out of 2) - Phoned report (with read back verified) to Mallory Funes ([facility]) ??06/26/12 20:14:29.(A) [facility] Blood specimen (specimen) 06/26/2012 1:00 AM CDT 06/26/2012 1:13 AM CDT Comment:BLOOD/ RAC Narrative [facility] [employer] [facility] - 07/01/2012 11:46 AM CDT X 2 15 MIN APART, 2 DIFFERENT SITES Johny Muniz DO MICROBIOLOGY - GENER AL ORDERABLES [facility] [facility]# [id number] [address] [place] [address] * (ABNORMAL) COMPREHENSIVE METABOLIC PANEL (06/26/2012 1:00 AM CDT) SODIUM 141 135 - 145 mmol/L [facility] - [facility] POTASSIUM 3.6 3.5 - 4.9 mmol/L [facility] CHLORIDE 104 96 - 108 mmol/L [facility] CO2 24 22 - 30 mmol/L [facility] CALCIUM 8.5(L) 8.6 - 10.2 mg/dL [facility] LABORATORY [facility] BUN 17 6 - 20 mg/dL [facility] LABORATORY [facility]. [facility] CREATININE 1.04 0.67 - 1.17 mg/dL [facility] GLUCOSE 113(H) 65 - 99 mg/dL [facility] TOTAL PROTEIN 6.7 6.3 - 8.6 g/dL [facility] LABORATORY [facility] ALBUMIN 3.9 3.4 - 4.8 g/dL [facility] LABORATORY [facility] BILIRUBIN TOTAL 0.4 0.2 - 1.0 mg/dL [facility] LABORAT[facility] ALKALINE PHOSPHATASE 71 40 - 129 U/L [facility] LAB[facility] AST 28 12 - 38 U/L [facility] LAB[facility] ALT 34 0 - 41 U/L [facility] LAB[facility]AT[facility] GFR, >60 >=60 mL/min/1. 7 sq meter [facility] LABORATORY SERVICES [facility] GFR >60 >=60 mL/min/1. 7 sq meter [facility] LABORATORY SERVICES [facility] Comment: GFR is calculated using the IDMS-Traceable Modification of Diet in Renal Disease (MDRD) Study formula and is only valid for patients 18 years or older. Further interpretative information is available in the Laboratory Services Policy Manual on the [facility] [place], [place] Intranet at: http://[facility]-intranet.[facility]/ Blood specimen (specimen) 06/26/2012 1:00 AM CDT 06/26/2012 1:08 AM CDT Johny Muniz DO CHEMISTRY ORDERABLES [facility]# [id number] [address] [place] [address] * (ABNORMAL) CBC WITH DIFFERENTIAL (06/26/2012 1:00 AM CDT) WBC 7.6 4.0 - 9.8 K/uL [facility] RBC 4.61 4.50 - 5.40 M/uL [facility] HEMOGLOBIN 13.0(L) 13.6 - 16.5 g/dL [facility] LABORAT[facility] HEMATOCRIT 40.4 40.0 - 48.0 % [facility] MCV 87.6 82.0 - 99.0 fL [facility] MCH 28.2 27.2 - 32.6 pg [facility] MCHC 32.2 31.5 - 35.5 % [facility] PLATELETS 299 140 - 350 K/uL [facility] MPV 9.9 9.3 - 12.4 HI [facility] RDW 14.5 11.5 - 14.5 % [facility] RDW-STDEV 46.4 37.1 - 48.7 [facility] - [facility] NEUTROPHILS 70 45 - 70 % [facility] LYMPHOCYTES 10(L) 16 - 45 % [facility] MONOCYTES 18(H) 3 - 13 % [facility] EOSINOPHILS 1 0 - 7 % [facility] BASOPHILS 0 0 - 2 % [facility] NEUTROPHIL ABSOLUTE 5.31 1.90 - 7.00 K/uL [facility] LYMPHOCYTE ABSOLUTE 0.74 0.70 - 4.50 K/uL [facility] MONOCYTE ABSOLUTE 1.39(H) 0.10 - 1.30 K/uL [facility] EOSINOPHIL ABSOLUTE 0.09 0.00 - 0.70 K/uL [facility] BASOPHILS ABSOLUTE 0.03 0.00 - 0.20 K/uL [facility] Blood specimen (specimen) 06/26/2012 1:00 AM CDT 06/26/2012 1:08 AM CDT Johny Muniz DO HEMATOLOGY ORDERABLE S [facility] LABORATORY SERVICES [facility]# [id number] [address] [place] [address] * (ABNORMAL) C-REACTIVE PROTEIN (06/26/2012 1:00 AM CDT) CRP 8.0(H) 0.0 - 0.8 mg/dL [facility] LABORATORY SERVICES [facility] Blood specimen (specimen) 06/26/2012 1:00 AM CDT 06/26/2012 1:08 AM CDT Johny Muniz DO CHEMISTRY ORDERABLES [facility] SERVICES [facility]# [id number] [address] [place] [address] documented in this encounter Visit Diagnoses Diagnosis [...] 0045, Routine 0057 (Given - Provider: Tess Amro RN) morphine 5 mg/mL injection 5 mg [...] RN) documented in this encounter Care Teams Floor Clerk Relationship Specialty Start Date End Date Martin Kelley MD PCP - General Internal Medicine 02/16/12 08/14/17 documented as of this encounter
--- OUTSIDE RECORDS SUMMARY | 2024-10-24 06:42 | XMS_ITS | Encounter Summary ---
Author Organization [facility] Address [address] [place] [address] Care Team Providers Care Propeller Inspector Name Role Phone Martin Kelley MD Primary Care Provider [phone] Reason for Referral * Eval and Treat (Routine) - Closed Specialty Diagnoses / Procedures Referred By Contac t Referred To Contact Gastroenterology Diagnoses Ulcerative colitis Lane Ryan MD NO ADDRESS ON FILE Lane Ryan MD NO ADDRESS ON FILE Referral ID Status Reason Start Date Expiration Date V isits Requested Visits Authorized [id number] Closed CRS To Schedule (STL) 04/11/2012 04/11/2013 1 1 Reason for Visit * Reason Comments Ulcerative Colitis Encounter Details Date Type Department Care Team (Latest Contact Info) Description 04/11/2012 10:00 AM CDT Office Visit [facility] GASTROENTEROLOGY [address] [facility] [address] [place] [phone] Lane Ryan MD NO ADDRESS ON FILE [...] System [facility] IBD [facility] Gastroenterology [facility] [place] [address] [place] [address] Kitty Dover, MIRTA [address] [place] [address] Scheduled Referrals Name Type Priority Associated Diagnoses Order Schedule AMB REFERRAL TO GASTROENTEROLOGY Outpatient Referral Routine Ulcerative colitis Ordered: 04/11/2012 documented as of this encounter Results * CLOSTRIDIUM DIFFICILE TOXIN (04/11/2012 12:58 PM CDT) C DIFF TOXIN PCR RESULT Negative Negative [facility] LABORATORY [facility] C DIFF TOXIN PCR SOURCE Stool [facility] LAB[facility] Stool specimen (specimen) 04/11/2012 12:58 PM CDT 04/11/2012 1:20 PM CDT Comment:STOOL Lane Ryan MD MICROBIOLOGY - GENER AL ORDERABLES [facility] LABORATORY [facility] CLIA# [id number] [address] [place] [address] * (ABNORMAL) COMPREHENSIVE METABOLIC PANEL (04/11/2012 12:58 PM CDT) SODIUM 138 135 - 145 mmol/L [facility] LABORATORY [facility] POTASSIUM 4.1 3.5 - 4.9 mmol/L [facility] LAB[facility]ATORY [facility] Comment: Moderate hemolysis present. Can cause significant falsely elevated result. Clinical judgement necessary. Redraw if indicated. CHLORIDE 101 96 - 108 mmol/L [facility] LABORATORY [facility] CO2 20(L) 22 - 30 mmol/L [facility] LABORAT[facility] CALCIUM 9.1 8.6 - 10.2 mg/dL [facility] LABORATORY [facility] BUN 12 6 - 20 mg/dL [facility] LABORATORY [facility] CREATININE 0.87 0.67 - 1.17 mg/dL [facility] LABORATORY [facility] GLUCOSE 138(H) 65 - 99 mg/dL [facility] LABORATORY [facility] TOTAL PROTEIN 7.4 6.3 - 8.6 g/dL [facility] ALBUMIN 3.9 3.4 - 4.8 g/dL [facility] BILIRUBIN TOTAL 0.3 0.2 - 1.0 mg/dL [facility] ALKALINE PHOSPHATASE 68 40 - 129 U/L [facility] AST 35 12 - 38 U/L [facility] LABORATORY [facility] Comment:Hemolyzed: Result ma y be falsely elevated. ALT 41 0 - 41 U/L [facility] GFR, >60 >=60 mL/min/1. 7 sq meter [facility] LABORATORY [facility] GFR >60 >=60 mL/min/1. 7 sq meter [facility] LABORATORY [facility] Comment: GFR is calculated using the IDMS-Traceable Modification of Diet in Renal Disease (MDRD) Study formula and is only valid for patients 18 years or older. Further interpretative information is available in the Laboratory Services Policy Manual on the [facility] Intranet at: [email or web address]-arch[facility] memorial hospitalet.[facility]/ Blood specimen (specimen) 04/11/2012 12:58 PM CDT 04/11/2012 1:[address] Ryan MD CHEMISTRY ORDERABLES [facility] CLIA# [id number] [address] [place] [address] * (ABNORMAL) CBC WITH DIFFERENTIAL (04/11/2012 12:58 PM CDT) WBC 10.6(H) 4.0 - 9.8 K/uL [facility] RBC 4.77 4.50 - 5.40 M/uL [facility] HEMOGLOBIN 13.6 13.6 - 16.5 g/dL [facility] HEMATOCRIT 42.0 40.0 - 48.0 % [facility] MCV 88.1 82.0 - 99.0 fL [facility] MCH 28.5 27.2 - 32.6 pg [facility] MCHC 32.4 31.5 - 35.5 % [facility] PLATELETS 368(H) 140 - 350 K/uL [facility] MPV 9.3 9.3 - 12.4 fL [facility] RDW 13.2 11.5 - 14.5 % [facility] RDW-STDEV 42.6 37.1 - 48.7 fL [facility] NEUTROPHILS, SEG 92(H) 45 - 70 % [facility]AT[facility] SERVICES - . [facility] LYMPHOCYTES 5(L) 16 - 45 % [facility] MONOCYTES 2(L) 3 - 13 % [facility] EOSINOPHILS 0 0 - 7 % [facility] BASOPHILS 0 0 - 2 % [facility] METAMYELOCYTE 1(H) <=0 % [facility] PLATELET EST. Consistent w/ count Normal [facility] NEUTROPHIL ABSOLUTE 9.75(H) 1.90 - 7.00 K/uL [facility] . [facility] LYMPHOCYTE ABSOLUTE 0.53(L) 0.70 - 4.50 K/uL [facility] MONOCYTE ABSOLUTE 0.21 0.10 - 1.30 K/uL [facility] EOSINOPHIL ABSOLUTE 0.00 0.00 - 0.70 K/uL [facility] BASOPHILS ABSOLUTE 0.00 0.00 - 0.20 K/uL [facility] ANISOCYTOSIS Slight [facility] POIKILOCYTES Slight [facility] MICROCYTES Slight [facility] MACROCYTES Slight [facility] POLYCHROMASIA Slight [facility] HYPOCHROMIA Slight [facility] OVALOCYTES Slight [facility] ACANTHOCYTES Slight [facility] REVIEWED ON SMEAR WBC & Plt Reviewed [facility] Blood specimen (specimen) 04/11/2012 12:58 PM CDT 04/11/2012 1:[address] Ryan MD HEMATOLOGY ORDERABLE S Performing Organization Address City/[facility]/ZIP Co de Phone Number [facility]# [id number] [address] [place] [address] * C-REACTIVE PROTEIN (04/11/2012 12:58 PM CDT) CRP 0.2 0.0 - 0.8 mg/dL [facility] Blood specimen (specimen) 04/11/2012 12:58 PM CDT 04/11/2012 1:[address] Ryan MD CHEMISTRY ORDERABLES Performing Organization Address [facility] Co de Phone Number [facility]# [id number] [address] [place] [address] documented in this encounter Visit Diagnoses Diagnosis Ulcerative colitis- Primary Ulcerative colitis, unspecified Ulcerative colitis Ulcerative colitis, unspecified documented in this encounter Care Teams Propeller Inspector Relationship Specialty Start Date End Date Martin Kelley MD PCP - General Internal Medicine 02/16/12 08/14/17 documented as of this encounter
--- OUTSIDE RECORDS SUMMARY | 2024-10-24 06:42 | XMS_ITS | Encounter Summary ---
Author Organization [facility] Address [address] [place] [address] Care Team Providers Care Kiln Burner Helper Name Role Phone Martin Kelley MD Primary Care Provider [phone] Reason for Visit * Reason Onset Date Comments Ulcerative Colitis 07/16/2012 Encounter Details Date Type Department Care Team (Late st Contact Info) Description 07/16/2012 Telephone [facility] GASTROENTEROLOGY [address] [facility] [address] [place] [address] Lane Ryan MD NO ADDRESS [...] [facility] [place] [address] [facility] [address] [place] [address] Kitty Dover, [facility] [address] [facility] [address] [place] [address] documented as of this encounter Visit Diagnoses Diagnosis Ulcerative colitis- Primary Ulcerative colitis, unspecified documented in this encounter Care Teams Kiln Burner Helper Relationship Specialty Start Date End Date Martin Kelley MD PCP - General Internal Medicine 02/16/12 08/14/17 documented as of this encounter
--- OUTSIDE RECORDS SUMMARY | 2024-10-24 06:42 | XMS_ITS | Encounter Summary ---
Author Organization [facility] Address [address] [place] [address] Care Team Providers Care Coastal Tug Mate Name Role Phone Martin Kelley MD Primary Care Provider [phone] Reason for Visit * Outpatient Services (Routine) - Closed Specialty Diagnoses / Procedures Referred By Contac t Referred To Contact Oncology Diagnoses REMICADE Procedures REMICADE/INFUSION Lane Ryan MD NO ADDRESS ON FILE Referral ID Status Reason Start Date Expiration Date Visits Re quested Visits Authorized [id number] Closed 04/09/2012 05/08/2012 1 1 Encounter Details Date Type Department Care Team (Latest Contact Info) Description 04/11/2012 11:00 AM CDT - 04/11/2012 11:59 PM CDT Hospital Encounter [facility] Infusion [facility] [address] [place] [phone] [address] Ryan MD NO ADDRESS ON FILE [...] - 04/11/2012 12:45 PM CDT Admit to [facility] ambulatory for Remicade. Received first dose in hospital. Had second dose here and hadreaction. Pt refused premeds at prior visit. Agrees to take premeds today. Saw Dr. Ryan earlier today. Labs entered in [facility]. Pt has stool specimen at [facility]. Orders reviewed. OK for po Tylenol and IV Benadryl prior to Remicade per Dr. Ryna's office. documented in this encounter Miscellaneous Notes [...] / [facility] IBD [facility] Gastroenterology [facility] [place] [address] [place] [address] Kitty Dover, ANP [address] [place] [address] documented as of this encounter Procedures Procedure [...] CDT) SODIUM 138 135 - 145 mmol/L [facility] LABORATORY [facility] POTASSIUM 4.1 3.5 - 4.9 mmol/L [facility] LABORATORY [facility] Comment: Moderate hemolysis present. Can cause significant falsely elevated result. Clinical judgement necessary. Redraw if indicated. CHLORIDE 101 96 - 108 mmol/L [facility] LABORATORY [facility] CO2 20(L) 22 - 30 mmol/L [facility] LABORATORY [facility] CALCIUM 9.1 8.6 - 10.2 mg/dL [facility] LABORATORY [facility] BUN 12 6 - 20 mg/dL [facility] LABORATORY [facility] CREATININE 0.87 0.67 - 1.17 mg/dL [facility] LABORATORY [facility] GLUCOSE 138(H) 65 - 99 mg/dL [facility] LABORATORY [facility] TOTAL PROTEIN 7.4 6.3 - 8.6 g/dL [facility] LABORATORY [facility] ALBUMIN 3.9 3.4 - 4.8 g/dL [facility] LABORATORY [facility] BILIRUBIN TOTAL 0.3 0.2 - 1.0 mg/dL [facility] LABORATORY [facility] ALKALINE PHOSPHATASE 68 40 - 129 U/L [facility] LABORATORY [facility] AST 35 12 - 38 U/L [facility] LABORATORY [facility] Comment:Hemolyzed: Result ma y be falsely elevated. ALT 41 0 - 41 U/L [employer] LABORATORY [facility] GFR, >60 >=60 mL/min/1. 7 sq meter [facility] LABORATORY SERVICES - [facility] GFR >60 >=60 mL/min/1. 7 sq meter [facility] LABORATORY [facility] Comment: GFR is calculated using the IDMS-Traceable Modification of Diet in Renal Disease (MDRD) Study formula and is only valid for patients 18 years or older. Further interpretative information is available in the Laboratory Services Policy Manual on the [facility] Intranet at: [email or web address]-intranet.[facility]/ Blood specimen (specimen) 04/11/2012 12:58 PM CDT 04/11/2012 1:[address] Ryan MD CHEMISTRY ORDERABLES Performing Organization Address City/[facility]/ZIP Co de Phone Number [facility] CLIA# [id number] [address] [place] [address] * CLOSTRIDIUM DIFFICILE TOXIN (04/11/2012 12:58 PM CDT) C DIFF TOXIN PCR RESULT Negative Negative [facility] LABORATORY [facility] C DIFF TOXIN PCR SOURCE Stool [facility] LABORATORY [facility] Stool specimen (specimen) 04/11/2012 12:58 PM CDT 04/11/2012 1:20 PM CDT Comment:STOOL Lane Ryan MD MICROBIOLOGY - GENER AL ORDERABLES [facility] LABORATORY [facility] CLIA# [id number] [address] [place] [place] [address] * (ABNORMAL) CBC WITH DIFFERENTIAL (04/11/2012 12:58 PM CDT) WBC 10.6(H) 4.0 - 9.8 K/uL [facility] LABORATORY [facility] RBC 4.77 4.50 - 5.40 M/uL [facility] LABORATORY [facility] HEMOGLOBIN 13.6 13.6 - 16.5 g/dL [facility] LABORATORY [facility] HEMATOCRIT 42.0 40.0 - 48.0 % [facility] MCV 88.1 82.0 - 99.0 fL [facility] MCH 28.5 27.2 - 32.6 pg [facility] MCHC 32.4 31.5 - 35.5 % [facility] PLATELETS 368(H) 140 - 350 K/uL [facility] MPV 9.3 9.3 - 12.4 fL [facility] RDW 13.2 11.5 - 14.5 % [facility] RDW-STDEV 42.6 37.1 - 48.7 fL [facility] NEUTROPHILS, SEG 92(H) 45 - 70 % [facility] - . [facility] LYMPHOCYTES 5(L) 16 - 45 % [facility] MONOCYTES 2(L) 3 - 13 % [facility] EOSINOPHILS 0 0 - 7 % [facility] BASOPHILS 0 0 - 2 % [facility] METAMYELOCYTE 1(H) <=0 % [facility] PLATELET EST. Consistent w/ count Normal [facility] NEUTROPHIL ABSOLUTE 9.75(H) 1.90 - 7.00 K/uL [facility] LYMPHOCYTE ABSOLUTE 0.53(L) 0.70 - 4.50 K/uL [facility] . [facility] MONOCYTE ABSOLUTE 0.21 0.10 - 1.30 [...] MACROCYTES Slight [facility] POLYCHROMASIA Slight [facility] HYPOCHROMIA Slight [facility] OVALOCYTES Slight [facility] ACANTHOCYTES Slight [facility] REVIEWED ON SMEAR WBC & Plt Reviewed [facility] Blood specimen (specimen) 04/11/2012 12:58 PM CDT 04/11/2012 1:[address] Ryan MD HEMATOLOGY ORDERABLE S Performing Organization Address [facility]/ZIP Co de Phone Number [facility] CLIA# [id number] [address] [place] [address] * C-REACTIVE PROTEIN (04/11/2012 12:58 PM CDT) CRP 0.2 0.0 - 0.8 mg/dL [facility] Blood specimen (specimen) 04/11/2012 12:58 PM CDT 04/11/2012 1:[address] Ryan MD CHEMISTRY ORDERABLES Performing Organization Address [facility] Co de Phone Number [facility]# [id number] [address] [place] [address] documented in this encounter Visit Diagnoses Diagnosis [...] mL/hr documented in this encounter Care Teams Coastal Tug Mate Relationship Specialty Start Date End Date Martin Kelley MD PCP - General Internal Medicine 02/16/12 08/14/17 documented as of this encounter
--- OUTSIDE RECORDS SUMMARY | 2024-10-24 06:42 | XMS_ITS | Encounter Summary ---
Author Organization [facility] Address [address] [place] [address] Care Team Providers Care Tax Collection Coordinator Name Role Phone Martin Kelley MD Primary Care Provider [phone] Encounter Details Date Type Department Care Team (Late st Contact Info) Description 03/12/2012 Abstract [facility] GASTROENTEROLOGY [address] [place] [address] Lane yRan MD NO ADDRESS ON FILE Social History [...] [facility] Gastro[facility]ology [facility] [place] [address] [place] [address] Kitty Dover ANP [address] [facility] [address] [place] [address] documented as of this encounter Visit Diagnoses Not on filedocumented in this encounter Care Teams Tax Collection Coordinator Relationship Specialty Start Date End Date Martin Kelley MD PCP - General Internal Medicine 02/16/12 08/14/17 documented as of this encounter
--- OUTSIDE RECORDS SUMMARY | 2024-10-24 06:42 | XMS_ITS | Encounter Summary ---
Author Organization [facility] Address [address] [place] [address] Care Team Providers Care Grooving Machine Operator Name Role Phone Martin Kelley MD Primary Care Provider [phone] Encounter Details Date Type Department Care Team (Late st Contact Info) Description 02/29/2012 Abstract [facility] GASTROENTEROLOGY [address] [place] [address] Lane Ryan MD NO ADDRESS [...] Visit [facility] IBD and Gastroenterology Center [place] [address] [place] [address] Kitty Dover ANP [address] [facility] [address] [place] [address] documented as of this encounter Visit Diagnoses Not on filedocumented in this encounter Care Teams Grooving Machine Operator Relationship Specialty Start Date End Date Martin Kelley MD PCP - General Internal Medicine 02/16/12 08/14/17 documented as of this encounter
--- OUTSIDE RECORDS SUMMARY | 2024-10-24 06:42 | XMS_ITS | Encounter Summary ---
Author Organization [facility] Address [address] [place] [address] Care Team Providers Care Curtain Drier Name Role Phone Martin Kelley MD Primary Care Provider [phone] Reason for Visit * Auth/Cert - Closed Specialty Diagnoses / Procedures Referred By Lambert t Referred To Contact Gastroenterology Diagnoses UC (ULCERATIVE COLITIS) [556.9] Procedures ILEOSCOPY [facility] [address] [place] [address] Referral ID Status Reason Start Date Expiration Date Visits Re quested Visits Authorized [id number] Closed 1 1 Encounter Details Date Type Department Care Team (Late st Contact Info) Description 06/12/2012 8:40 AM CDT - 06/12/2012 9:20 AM CDT [facility] [address] [place] [address] [address] [facility] [place] [address] Katie Steele MD NO ADDRESS [...] 12/08/2009 COLONOSCOPY performed by LOUISE SOTELO at [facility] GI LAB ??? Pr sigmoidoscopy,diagnostic 02/16/2012 SIGMOIDOSCOPY FLEXIBLE performed by Louise Sotelo MD at [facility] GI LAB ??? Pr endoscopy of bowel pouch 02/16/2012 POUCHOSCOPY performed by Louise Sotelo MD at [facility] GI LAB ??? Pr upper gi endoscopy,diagnosis 02/28/2012 ESOPHAGOGASTRODUODENOSCOPY performed by Katie Steele MD at [facility] GI LAB ??? Pr small bowel endoscopy,biopsy 02/28/2012 BOWEL SMALL BIOPSY ENDOSCOPIC performed by Katie Steele MD at [facility] GI LAB Prescriptions prior to admission [...] this encounter Procedure Notes * Sebastian Alejandro [facility] - 06/14/2012 8:01 PM CDTAssociated Order(s): GI REPORT * Katie Steele MD - 06/12/2012 6:21 PM CDTAssociated Order(s): GI REPORT [place], [place] [address] Gastroenterology CSN: [id number] DATE OF SERVICE: SMALL BOWEL ENDOSCOPY INDICATIONS [...] the office in 1 month. JSF:MEDQ DID: [id number] Dictated by: Katie Steele MD * Sebastian Scanning, [facility] - 06/12/2012 9:24 AM CDTAssociated Order(s): GI REPORT * Katie Steele MD - 06/12/2012 9:24 AM CDTAssociated Order(s): GI REPORT [facility] Endoscopy Patient Name: Mukul Huber Procedure Date No Time: 06/12/2012 Date of : 1970 Admit Type: Outpatient Attending MD: Katie Steele MD Procedure: Images Only-Procedure Report in [facility] Providers: Katie Steele MD Submitted Katie Steele MD Number of Addenda: [address]; [place] [address] documented in this encounter OR Notes * OR Anesthesia - Stl Scanning, [facility] - 06/14/2012 8:01 PM CDT Electronically signed by Reggie, [facility] Stl Cartridge Assembler Incoming at 06/14/2012 8:01 PM CDT * Anesthesia Post Evaluation - Isacc Perez, [place] - 06/12/2012 10:36 AM CDT Phase II Postanesthesia Evaluation Including [facility] Modified Rebekah Score Patient seen and [...] Mukul Huber Age: 41 y.o. Sex: male [facility]: [id number] Procedure: Procedure(s): ILEOSCOPY Surgeons/Assistants: Surgeon(s) and Role: [...] 12/08/2009 COLONOSCOPY performed by LOUISE SOTELO at [facility] GI LAB ??? Pr sigmoidoscopy,diagnostic 02/16/2012 SIGMOIDOSCOPY FLEXIBLE performed by Louise Sotelo MD at [facility] GI LAB ??? Pr endoscopy of bowel pouch 02/16/2012 POUCHOSCOPY performed by Louise Sotelo MD at [facility] GI LAB ??? Pr upper gi endoscopy,diagnosis 02/28/2012 ESOPHAGOGASTRODUODENOSCOPY performed by Katie Steele MD at [facility] GI LAB ??? Pr small bowel endoscopy,biopsy 02/28/2012 BOWEL SMALL BIOPSY ENDOSCOPIC performed by Katie Steele MD at [facility] GI LAB History Substance Use Topics [...] Notes * Scanned Form - Stl Scanning, [facility] - 06/14/2012 8:01 PM CDT Electronically signed by [facility] Stl Cartridge Assembler Incoming at 06/14/2012 8:01 PM CDT * Scanned Form - Stl Scanning, [facility] - 06/14/2012 8:01 PM CDT Electronically signed by Interface [facility] Stl Cartridge Assembler Incoming at 06/14/2012 8:01 PM CDT * Patient Instructions - Stl Scanning, [facility] - 06/14/2012 8:01 PM CDT Electronically signed by Interface [facility] Stl Cartridge Assembler Incoming at 06/14/2012 8:01 PM CDT documented in this encounter Plan of Treatment Upcoming Encounters Date Type Department Care Team (Late st Contact Info) Description 02/13/2025 10:30 AM CDT Office Visit [facility] IBD and Gastroenterology Center [place] [address] [place] [phone] Kitty Dover, ANP [address] [place] [address] documented as of this encounter Procedures Procedure [...] Steele MD - 06/12/2012 6:21 PM CDT [place], [place] [address] Gastroenterology CSN: [id number] DATE OF SERVICE: SMALL BOWEL ENDOSCOPY INDICATIONS [...] [facility] He is advised to see me back in the officein 1 month. JSF:MEDAllison DID:[id number] Dictated by: Katie Steele MD [facility], [facility] - 06/14/2012 8:01 PM CDT Katie Steele MD GI PROCEDURE [facility] * PATHOLOGY (06/12/2012 12:15 PM CDT) SURGICAL PATHOLOGY ?[facility] ?[address] ? [place], [place] ??[address] ? Patient: ??MUKUL HUBER S ? : ??1970 ? Procedure Date: ??06/12/2012 ? Accession Date: ??06/12/2012 ? Case No: ??[id number] ? Ordering Dr: ??KATIE STEELE ? Case type SW is performed by [facility], [address], ? [place], [place] ??[address]; all other case types are performed by [facility] ? [facility], [address] [facility], [place] ??[address] ?SURGICAL PATHOLOGY & NON-GYNECOLOGIC CYTOPATHOLOGY REPORT ? [...] ? Microscopic: ? The slides are labeled [id number], Mukul Huber. ? Sections of the ileum [...] appearance is compared to the previous biopsies ([id number]) from February ? 2011, and both show similar histologic features. ? CJ/PJS 06.13.2012 10:14 am ? Staging Form: ? No ? ELECTRONIC SIGNATURE FOR SHANNAN CEDENO MD- 06/13/12 03:01 pm [facility] 06/12/2012 12:1 5 PM CDT Katie Steele MD PATHOLOGY/CYTOLOGY O RDERABLES Performing Organization Address [facility] Co de Phone Number [facility]# [id number] [address] [place] [address] * CLOSTRIDIUM DIFFICILE TOXIN (06/12/2012 9:25 AM CDT) C DIFF TOXIN PCR RESULT Negative Negative [facility] C DIFF TOXIN PCR SOURCE Stool [facility] Stool specimen (specimen) 06/12/2012 9:25 AM CDT 06/12/2012 12:11 PM CDT Comment:STOOL Katie Steele MD MICROBIOLOGY - GENER AL ORDERABLES Performing Organization Address [facility] Co de Phone Number [facility]# [id number] [address] [place] [address] documented in this encounter Visit Diagnoses Diagnosis [...] RN) documented in this encounter Care Teams Curtain Drier Relationship Specialty Start Date End Date Martin Kelley MD PCP - General Internal Medicine 02/16/12 08/14/17 documented as of this encounter
--- OUTSIDE RECORDS SUMMARY | 2024-10-24 06:42 | XMS_ITS | Encounter Summary ---
Author Organization [facility] Address [address] [place] [address] Care Team Providers Care Seismograph Operator Name Role Phone Martin Kelley MD Primary Care Provider [phone] Encounter Details Date Type Department Care Team (Late st Contact Info) Description 06/21/2012 Abstract [facility] GASTROENTEROLOGY [address] [facility] [address] [place] [address] Lane Ryan MD NO ADDRESS [...] [facility] IBD and Gastroenterology [facility] [place] [address] [facility] [address] [place] [address] Kitty Dover ANP [address] [facility] [address] [place] [address] documented as of this encounter Visit Diagnoses Not on filedocumented in this encounter Care Teams Seismograph Operator Relationship Specialty Start Date End Date Martin Kelley MD PCP - General Internal Medicine 02/16/12 08/14/17 documented as of this encounter
--- OUTSIDE RECORDS SUMMARY | 2024-10-24 06:42 | XMS_ITS | Encounter Summary ---
Author Organization [facility] Address [address] [place] [address] Care Team Providers Care Technical Sales Representatives Name Role Phone Martin Kelley MD Primary Care Provider [phone] Reason for Visit * Outpatient Services (Routine) - Closed Specialty Diagnoses / Procedures Referred By Contac t Referred To Contact Oncology Diagnoses Ulcerative colitis Procedures Lane Madsen MD NO ADDRESS ON FILE [facility] 2nd Floor [place] [address] [place] [address] Referral ID Status Reason Start Date Expiration Date Visits Re quested Visits Authorized [id number] Closed 03/14/2012 04/14/2012 1 1 Encounter Details Date Type Department Care Team (Latest Contact Info) Description 03/15/2012 11:30 AM CDT - 03/15/2012 11:59 PM CDT Hospital Encounter [facility] 2nd Fl [address] [place] [address] Lane Ryan MD NO ADDRESS [...] Visit [facility] IBD and Gastroenterology Center [place] [address] [facility] [address] [place] [address] Kitty Dover, [facility] [address] [facility] [address] [place] [address] documented as of this encounter [...] CDT) CRP <0.1 0.0 - 0.8 mg/dL [facility] Blood specimen (specimen) 03/15/2012 1:05 PM CDT 03/15/2012 1:[address] Ryan MD CHEMISTRY ORDERABLES Performing Organization Address City/[facility] Co de Phone Number [facility] CLIA# [id number] [address] [place] [address] * MAGNESIUM LEVEL (03/15/2012 1:05 PM CDT) Pathologist [facility] MAGNESIUM 1.9 1.5 - 2.5 mg/dL [facility] Blood specimen (specimen) 03/15/2012 1:05 PM CDT 03/15/2012 1:[address] Ryan MD CHEMISTRY ORDERABLES Performing Organization Address [facility] Phone Number [facility]# [id number] [address] [facility] [place] [address] * (ABNORMAL) COMPREHENSIVE METABOLIC PANEL (03/15/2012 1:05 PM CDT) SODIUM 138 135 - 145 mmol/L [facility] POTASSIUM 3.4(L) 3.5 - 4.9 mmol/L [facility] CHLORIDE 106 96 - 108 mmol/L [facility] CO2 17(L) 22 - 30 mmol/L [facility] CALCIUM 8.3(L) 8.6 - 10.2 mg/dL [facility] BUN 19 6 - 20 mg/dL [facility] CREATININE 0.83 0.67 - 1.17 mg/dL [facility] GLUCOSE 160(H) 65 - 99 mg/dL [facility]. [facility] TOTAL PROTEIN 6.0(L) 6.3 - 8.6 g/dL [facility] ALBUMIN 3.4 3.4 - 4.8 g/dL [facility] BILIRUBIN TOTAL 0.3 0.2 - 1.0 mg/dL [facility] ALKALINE PHOSPHATASE 75 40 - 129 U/L [facility] AST 19 12 - 38 U/L [facility] ALT 39 0 - 41 U/L [facility] GFR, >60 >=60 mL/min/1. 7 sq meter [facility] GFR >60 >=60 mL/min/1. 7 sq meter [facility] Comment: GFR is calculated using the IDMS-Traceable Modification of Diet in Renal Disease (MDRD) Study formula and is only valid for patients 18 years or older. Further interpretative information is available in the Laboratory Services Policy Manual on the [facility] Intranet at: http://[facility]-intranet.[facility] centerX2TV[facility]/ Blood specimen (specimen) 03/15/2012 1:05 PM CDT 03/15/2012 1:[address] Ryan MD CHEMISTRY ORDERABLES [facility] CLIA# [id number] [address] [place] [address] * (ABNORMAL) CBC WITH DIFFERENTIAL (03/15/2012 1:05 PM CDT) WBC 11.8(H) 4.0 - 9.8 K/uL [facility] RBC 4.39(L) 4.50 - 5.40 M/uL [facility] HEMOGLOBIN 12.9(L) 13.6 - 16.5 g/dL [facility] HEMATOCRIT 40.0 40.0 - 48.0 % [facility] MCV 91.1 82.0 - 99.0 fL [facility] MCH 29.4 27.2 - 32.6 pg [facility] MCHC 32.3 31.5 - 35.5 % [facility] PLATELETS 336 140 - 350 K/uL [facility] MPV 9.1(L) 9.3 - 12.4 fL [facility] - [facility] RDW 14.6(H) 11.5 - 14.5 % [facility] RDW-STDEV 49.8(H) 37.1 - 48.7 fL [facility] NEUTROPHILS 86(H) 45 - 70 % [facility] LYMPHOCYTES 7(L) 16 - 45 % [facility] MONOCYTES 6 3 - 13 % [facility] EOSINOPHILS 0 0 - 7 % [facility] - . [facility] BASOPHILS 0 0 - 2 % [facility] NEUTROPHIL ABSOLUTE 10.20(H) 1.90 - 7.00 K/uL [facility] LYMPHOCYTE ABSOLUTE 0.87 0.70 - 4.50 K/uL [facility] MONOCYTE ABSOLUTE 0.70 0.10 - 1.30 K/uL [facility] EOSINOPHIL ABSOLUTE 0.03 0.00 - 0.70 K/uL [facility] - . [facility] BASOPHILS ABSOLUTE 0.01 0.00 - 0.20 K/uL [facility] - [facility] Blood specimen (specimen) 03/15/2012 1:05 PM CDT 03/15/2012 1:55 PM CDT Laen Ryan MD HEMATOLOGY ORDERABLE S [facility]# [id number] [address] [facility] [address] documented in this encounter Visit Diagnoses Not [...] mL/hr documented in this encounter Care Teams Technical Sales Representatives Relationship Specialty Start Date End Date Martin Kelley MD PCP - General Internal Medicine 02/16/12 08/14/17 documented as of this encounter
--- OUTSIDE RECORDS SUMMARY | 2024-10-24 06:42 | XMS_ITS | Encounter Summary ---
Author Organization [facility] Address [address] [place] [address] Care Team Providers Care Hospice Music Therapist Name Role Phone Martin Kelley MD Primary Care Provider [phone] Encounter Details Date Type Department Care Team (Late st Contact Info) Description 04/02/2012 Abstract [facility] GASTROENTEROLOGY [address] [place] [address] Lane Ryan MD NO ADDRESS [...] / [facility] IBD and Gastroenterology Center [place] [address] [place] [address] Kitty Dover ANP [address] [facility] [address] [place] [address] documented as of this encounter Visit Diagnoses Not on filedocumented in this encounter Care Teams Hospice Music Therapist Relationship Specialty Start Date End Date Martin Kelley MD PCP - General Internal Medicine 02/16/12 08/14/17 documented as of this encounter
--- OUTSIDE RECORDS SUMMARY | 2024-10-24 06:42 | XMS_ITS | Encounter Summary ---
Author Organization [facility] Address [address] [place] [address] Care Team Providers Care Human Services Case Manager Name Role Phone Martin Kelley MD Primary Care Provider [phone] Reason for Visit * Reason Comments Follow Up Encounter Details Date Type Department Care Team (Latest Contact Info) Description 03/15/2012 10:15 AM CDT Office Visit [facility] GASTROENTEROLOGY [address] [facility] [facility] [address] [place] [address] Lane Ryan MD NO ADDRESS [...] - [place] [facility] G[facility]ology [facility] [place] [address] [place] [address] Kitty Dover [facility] [address] [place] [address] Scheduled Orders Name Type Priority [...] unspecified documented in this encounter Care Teams Human Services Case Manager Relationship Specialty Start Date End Date Martin Kelley MD PCP - General Internal Medicine 02/16/12 08/14/17 documented as of this encounter
--- OUTSIDE RECORDS SUMMARY | 2024-10-24 06:43 | XMS_ITS | Encounter Summary ---
Author Organization [facility] Address [address] [place] [address] Care Team Providers Care Dental Sales Representative Name Role Phone Jasiel Freeman MD [...] [facility] [place] [address] [facility] [address] [place] [address] Kitty Dover ANP [address] [facility] [address] [place] [address] documented as of this encounter Visit Diagnoses Diagnosis Digestive system complication- Primary documented in this encounter Additional Health Concerns Infection Onset Date Last Indicated Resolved Time R/O C. diff 08/11/2022 08/10/2022 08/11/2022 2:45 PM CDT R/O C. diff 12/11/2022 12/09/2022 12/11/2022 1:26 PM GLAUCOMA SPECIALIST R/O C. diff 10/17/2024 10/17/2024 10/17/2024 6:55 PM GLAUCOMA SPECIALIST documented as of this encounter Care Teams Dental Sales Representative Relationship Specialty Start Date End Date Jasiel Freeman MD [address] [place] [address] PCP - General Family Practice 08/15/17 documented as of this encounter
--- OUTSIDE RECORDS SUMMARY | 2024-10-24 06:43 | XMS_ITS | Encounter Summary ---
Author Organization [facility] Address [address] [place] [address] Care Team Providers Care Generation Technician Name Role Phone Jasiel Freeman MD [...] 10:30 AM CDT Office Visit [facility] IBD and Gastroenterology Center [place] [address] [facility] [address] [facility] [address] [place] [address] Kitty Dover ANP [address] [facility] [address] [place] [address] documented as of this encounter Visit Diagnoses Diagnosis Attention to ileostomy- Primary documented in this encounter Additional Health Concerns Infection Onset Date Last Indicated Resolved Time R/O C. diff 08/11/2022 08/10/2022 08/11/2022 2:45 PM CDT R/O C. diff 12/11/2022 12/09/2022 12/11/2022 1:26 PM DEALER ACCOUNT MANAGER R/O C. diff 10/17/2024 10/17/2024 10/17/2024 6:55 PM DEALER ACCOUNT MANAGER documented as of this encounter Care Teams Generation Technician Relationship Specialty Start Date End Date Jasiel Freeman MD [address] [place] [address] PCP - General Family Practice 08/15/17 documented as of this encounter
--- OUTSIDE RECORDS SUMMARY | 2024-10-24 06:43 | XMS_ITS | Encounter Summary ---
Author Organization [facility] Address [address] [place] [address] Care Team Providers Care Sidehand Name Role Phone Unavailable Primary Care Provider Unavailabl e Encounter Details Date Type Department Care Team (Late st Contact Info) Description 12/08/2009 9:00 AM COMPUTER SOFTWARE ENGINEER - 12/08/2009 9:40 AM COMPUTER SOFTWARE ENGINEER Surgery [facility] [address] [place] [address] [place] [address] Louise Rizo MD NO ADDRESS ON FILE COLONOSCOPY Surgery Details Date/Time Status Location OR Service Patient Class Case Class Case Type Trauma Case? 12/08/2009 9:[address] GI LAB GI 03 Gastroenterology Outpatient Elective No Panel 1 Procedure LRB Anes Op Region Wound Class Comments COLONOSCOPY N/A General Anus Clean Contaminated -II Surgeon Surgeon Role Service Panel oLuise Rizo MD Primary Gastroenterology 1 documented in [...] Comments Blood Pressure 126/80 12/08/2009 9:32 AM COMPUTER SOFTWARE ENGINEER Pulse 104 12/08/2009 9:32 AM COMPUTER SOFTWARE ENGINEER Temperature 36.8 ??C (98.3 ??F) 12/08/2009 9:32 AM CS T Respiratory Rate 20 12/08/2009 9:32 AM COMPUTER SOFTWARE ENGINEER Oxygen Saturation 94% 12/08/2009 9:32 AM COMPUTER SOFTWARE ENGINEER Inhaled Oxygen Concentration - - Weight 77.1 kg (170 lb) 12/04/2009 4:18 PM COMPUTER SOFTWARE ENGINEER Height 175.3 cm (5' 9 ) 12/04/2009 4:18 PM COMPUTER SOFTWARE ENGINEER Body Mass Index 25.1 12/04/2009 4:18 PM COMPUTER SOFTWARE ENGINEER documented in this encounter Discharge Instructions * Discharge Instructions* Dayana Miranda RN - 12/08/2009 10:17 AM COMPUTER SOFTWARE ENGINEER If you should experience: Severe abdominal [...] call the physician who prescribed the medication. UTER SOFTWARE ENGINEER documented in this encounter Medications at Time of Discharge Medication Sig Dispensed Refills Start Date End Date mesalamine (ASACOL) 400 mg Oral TbEC Take 400 mg by mouth 2 times daily. 03/03/2012 documented as of this encounter Procedure Notes * Louise Rizo MD - 12/08/2009 10:53 AM CSTAssociated Order(s): GI REPORT [place], [place] [address] Gastroenterology CSN: [id number] DATE OF SERVICE: 12/08/2009 PROCEDURE PERFORMED 1. [...] office again in a month. PLR:MEDQ DID: [id number] Dictated by: Louise Rizo MD cc: Osman Plata MD UTER SOFTWARE ENGINEER documented in this encounter OR Notes * OR Anesthesia - Sherwin Medina - 12/13/2009 9:08 AM COMPUTER SOFTWARE ENGINEER * Operative Report - Louise Rizo MD - 12/08/2009 10:01 AM CST Brief Postoperative Note Full note dict Mukul Elkins [id number] Pre-operative Diagnosis: ? pouchitis Post-operative Diagnosis: Same Procedure/Anesthesia: Procedure(s) and Anesthesia Type: * COLONOSCOPY - General Surgeons/Assistants: Surgeon(s) and Role: * Louise Rizo MD - Primary Specimens Removed: bx Estimated Blood Loss: Minimal Complications:none Louise Rizo MD UTER SOFTWARE ENGINEER * Operative Report - Louise Rizo MD - 12/08/2009 10:00 AM CST Samples taken. Call my office within 5 days for results and further instructions. Biopsies taken. Call my office within 5 days for results and further instructions. UTER SOFTWARE ENGINEER * OR Anesthesia - Alexis Holloway MD - 12/08/2009 9:26 AM CST Pre-Anesthesia Evaluation - Long Form 12/08/2009 9:27 AM Name: Mukul Elkins Age: 39 y.o. Sex: male CSN: [id number] Procedure: Procedure(s): COLONOSCOPY Surgeons/Assistants: Surgeon(s) and Role: [...] solicited and answered. Yes Alexis Holloway MD UTER SOFTWARE ENGINEER documented in this encounter Miscellaneous Notes * Scanned Form - Stl Scanning, Provider - 12/13/2009 9:07 AM COMPUTER SOFTWARE ENGINEER * Scanned Form - Stl Scanning, Provider - 12/13/2009 9:07 AM COMPUTER SOFTWARE ENGINEER * Patient Instructions - Stl Scanning, Provider - 12/13/2009 8:54 AM COMPUTER SOFTWARE ENGINEER documented in this encounter Plan of Treatment Upcoming Encounters Date Type Department Care Team (Late st Contact Info) Description 02/13/2025 10:30 AM CDT Office Visit [facility] [place] [address] [place] [address] Kitty Dover ANP [address] [place] [address] documented as of this encounter Procedures Procedure Name Priority Date/Time Associated Diagnosis Comments PATHOLOGY Routine 12/08/2009 11:19 AM COMPUTER SOFTWARE ENGINEER GI REPORT 12/08/2009 10:54 AM COMPUTER SOFTWARE ENGINEER C. DIFFICILE DETECTION Routine 12/08/2009 10:15 AM COMPUTER SOFTWARE ENGINEER STOOL CULTURE W/SHIGA TOXIN Routine 12/08/2009 10:15 AM COMPUTER SOFTWARE ENGINEER COLONOSCOPY 12/08/2009 9:35 AM COMPUTER SOFTWARE ENGINEER ABDOMINAL PAIN documented in this encounter Results * PATHOLOGY (12/08/2009 11:19 AM COMPUTER SOFTWARE ENGINEER) SURGICAL PATHOLOGY ?[facility] ?[address] ? [place], [place] ??[address] ? Patient: ??CECILE, MUKUL S ? : ??1970 ? Procedure Date: ??12/08/2009 ? Accession Date: ??12/08/2009 ? Case No: ??[id number] ? Ordering Dr: ??LOUISE RIZO ? Case type SW is performed by [facility], [place], [place]; ? all other case types are performed by [facility], [place], ? [place] ?SURGICAL PATHOLOGY & NON-GYNECOLOGIC CYTOPATHOLOGY [...] ? Microscopic: ? The slides are labeled [id number] and Mukul Elkins. ? Both biopsies display [...] FOR LUIS EVANS M.D.- 12/09/09 10:08 pm [facility] 12/08/2009 11:1 9 AM COMPUTER SOFTWARE ENGINEER Louise Rizo MD PATHOLOGY/CYTOLOGY O RDERABLES [facility] CLIA# [id number] [address] [place] [address] * GI REPORT (12/08/2009 10:54 AM COMPUTER SOFTWARE ENGINEER) Narrative 12/08/2009 10:54 AM COMPUTER SOFTWARE ENGINEER [place], [place] ??[address] ?? Gastroenterology CSN: [id number] DATE OF SERVICE: ??12/08/2009 PROCEDURE PERFORMED 1. [...] again in a month. PLR:MEDQ ? DID: [id number] Dictated by: Louise Rizo MD ?? cc: Osman Plata MD Procedure Note Louise Rizo MD - 12/08/2009 10:53 AM CST [place], [place] [address] Gastroenterology CSN: [id number] DATE OF SERVICE: 12/08/2009 PROCEDURE PERFORMED 1. [...] my office again in a month. PLR:MEDQ DID:[id number] Dictated by: Louise Rizo MD cc: Osman Plata MD Louise Rizo MD GI PROCEDURE ORDERAB LES * STOOL CULTURE (12/08/2009 10:15 AM COMPUTER SOFTWARE ENGINEER) PRELIMINARY REPORT No Salmonella isolated. No Shigella isolated. No Escherichia coli serogroup O157:H7 isolated. [facility] FINAL REPORT No Salmonella isolated. No Shigella isolated. No Escherichia coli serogroup O157:H7 isolated. No Campylobacter isolated. [facility] 12/08/2009 10:1 5 AM COMPUTER SOFTWARE ENGINEER 12/08/2009 11:46 AM COMPUTER SOFTWARE ENGINEER Narrative [facility] - 12/11/2009 8:12 AM COMPUTER SOFTWARE ENGINEER SPECIMEN ENCLOSED Louise Rizo MD MICROBIOLOGY - GENER AL ORDERABLES Performing Organization Address [facility] Co de Phone Number [facility] CLIA# [id number] [address] [place] [address] * CLOSTRIDIUM DIFFICILE TOXIN (12/08/2009 10:15 AM COMPUTER SOFTWARE ENGINEER) FINAL REPORT NO Clostridium difficile Toxin A or B detected by EIA. A negative result does not rule out C. difficile associated diarrhea or colitis. [facility] 12/08/2009 10:1 5 AM COMPUTER SOFTWARE ENGINEER 12/08/2009 11:46 AM COMPUTER SOFTWARE ENGINEER Narrative [facility] - 12/08/2009 3:19 PM COMPUTER SOFTWARE ENGINEER Specimen enclosed Louise Rizo MD MICROBIOLOGY - [employer] AL ORDERABLES Performing Organization Address [facility] Co de Phone Number [facility] CLIA# [id number] [address] [place] [address] documented in this encounter Visit Diagnoses Not on filedocumented in this encounter Administered Medications Inactive Administered Medications - up to 3 most recent administrations Medication Order MAR Action Action Date Dose Rate Site lactated ringers solution IV, at 125 mL/hr, PRE-PROCEDURE CONTINUOUS, Starting on Mon12/08/09 at 0930, Until Mon12/09/09 at 0201, Routine New Bag 12/08/2009 9:30 AM COMPUTER SOFTWARE ENGINEER 125 mL /hr documented in this encounter Active and Recently Administered Medications Times are shown in COMPUTER SOFTWARE ENGINEER. Continuous Medication Order 12/06/2009 12/07/2009 12/08/2009 lactated ringers solution (CANCELED) IV, at 125 mL/hr, PRE-PROCEDURE CONTINUOUS, Starting on Mon12/08/09 at 0930, Until Mon12/09/09 at 0201, Routine 0930 (New Bag - Prov ider: aRjni Delvalle)[id number] (Stopped - Provider: Dayana Miranda RN) documented in this encounter
--- OUTSIDE RECORDS SUMMARY | 2024-10-24 06:43 | XMS_ITS | Encounter Summary ---
Author Organization [facility] Address [address] [place] [address] Care Team Providers Care Hot Punch Press Operator Name Role Phone Jasiel Freeman MD Primary Care Provider [phone] Encounter Details Date Type Department Care Team [...] [facility] [place] [address] [facility] [address] [place] [address] Kitty Dover ANP [address] [facility] [address] [place] [address] documented as of this encounter Visit Diagnoses Diagnosis Ulcerative colitis, unspecified- Primary documented in this encounter Additional Health Concerns Infection Onset Date Last Indicated Resolved Time R/O C. diff 08/11/2022 08/10/2022 08/11/2022 2:45 PM CDT R/O C. diff 12/11/2022 12/09/2022 12/11/2022 1:26 PM ARMHOLE FELLER HANDSTITCHING MACHINE R/O C. diff 10/17/2024 10/17/2024 10/17/2024 6:55 PM ARMHOLE FELLER HANDSTITCHING MACHINE documented as of this encounter Care Teams Hot Punch Press Operator Relationship Specialty Start Date End Date Jasiel Freeman MD [address] [place] [phone] PCP - General Family Practice 08/15/17 documented as of this encounter
--- OUTSIDE RECORDS SUMMARY | 2024-10-24 06:43 | XMS_ITS | Encounter Summary ---
Author Organization [facility] Address [address] [place] [address] Care Team Providers Care Celery Stripper Name Role Phone Jasiel Freeman MD [...] [facility] [place] [address] [facility] [address] [place] [address] Kitty Dover ANP [address] [facility] [address] [place] [address] documented as of this encounter Visit Diagnoses Diagnosis Digestive system complication- Primary documented in this encounter Additional Health Concerns Infection Onset Date Last Indicated Resolved Time R/O C. diff 08/11/2022 08/10/2022 08/11/2022 2:45 PM CDT R/O C. diff 12/11/2022 12/09/2022 12/11/2022 1:26 PM ADMINISTRATIVE SPECIALIST R/O C. diff 10/17/2024 10/17/2024 10/17/2024 6:55 PM ADMINISTRATIVE SPECIALIST documented as of this encounter Care Teams Celery Stripper Relationship Specialty Start Date End Date Jasiel Freeman MD [address] [place] [phone] PCP - General Family Practice 08/15/17 documented as of this encounter
--- OUTSIDE RECORDS SUMMARY | 2024-10-24 06:43 | XMS_ITS | Encounter Summary ---
Author Organization [facility] Address [address] [place] [address] Care Team Providers Care Claim Processor Name Role Phone Martin Kelley MD Primary Care Provider [phone] Reason for Visit * Reason Comments Abdominal Pain Pt states he had a c olonoscopy last . Started having fever and chills on Monday. States he went to [facility] on Monday and was treated for dehydration after developing diarrhea on Monday. Continues to have diarrhea, abdominal pain and nausea. States his PMD told him today that his XR report showed an obstruction. * Auth/Cert (Routine) - Closed Specialty Diagnoses / Procedures Referred By Lambert pizarro Referred To Contact Emergency Medicine [facility] [address] [place] [address] Referral ID Status Reason Start Date Expiration Date Visits Re quested Visits Authorized [id number] Closed 1 1 Encounter Details Date Type Department Care Team (Latest Contact Info) Description 02/28/2012 8:40 AM CDT - 02/28/2012 9:20 AM CDT Surgery [facility] GI Lab S [facility] [address] [place] [address] Katie Ryan MD NO ADDRESS ON FILE ESOPHAGOGASTRODUODENOSCOPY Surgery Details Date/Time Status Location OR Service Patient Class Case Class Case Type Trauma Case? 02/28/2012 8:40 AM Posted [facility] GI 04 Gastroenterology Inpatient N o Panel 1 Procedure LRB Anes Op Region Wound Class Comments ESOPHAGOGASTRODUODENOSCOPY N/A General Mouth Sean an Contaminated-II Panel 2 Procedure LRB Anes Op Region Wound Class Comments RETIRED BOWEL SMALL BIOPSY ENDOSCOPIC N/A General Abdomen Clean Contaminated-II Surgeon Surgeon Role Service Panel Katie Ryan MD Primary Gastroenterology 1 Katie Ryan MD Primary Gastroenterology 2 documented in this encounter Social History Tobacco [...] Sign Reading Time Taken Comments Blood Pressure 102/63 02/28/2012 7:59 AM CDT Pulse 90 02/28/2012 6:55 AM CDT Temperature 36.8 ??C (98.2 ??F) 02/28/2012 7:59 AM CD T Respiratory Rate 16 02/28/2012 7:59 AM CDT Oxygen Saturation 95% 02/28/2012 7:59 AM CDT Inhaled Oxygen Concentration - - Weight 75.3 kg (166 lb) 02/22/2012 11:41 PM CDT Height 175.3 cm (5' 9 ) 02/22/2012 4:23 PM CDT Body Mass Index 24.51 02/22/2012 4:23 PM CDT documented in this encounter Discharge Summaries * Rachell Reyna MD - 03/03/2012 7:35 AM CDT [facility] Adult Hospitalist Discharge Summary Mukul Huber 41 y.o. male 1970 CSN: [id number] Date of Admission: 02/22/2012 Date of Discharge: [...] Nichole MD - 03/03/2012 7:35 AM CDT [facility] I have independently seen and examined [...] days . Cont oral steroids Gladys Nichole [phone] documented in this encounter Discharge Instructions * Discharge Instructions* Germania Farmer RN - 03/03/2012 9:57 AM CDT Your discharging physician is Gladys Nichole MD and may be reached at [phone] for any questions or concerns until you see your doctor. FOLLOW-UP Follow up with Martin Kelley MD in 2 Week(s) and follow up with Dr. Ryan in 10 days, call to make appointment [phone] Prescriptions given? Yes Please continue to take [...] people smoke in your home. Please call [phone], our pulmonary rehabilitation department, to learn more [...] as of this encounter Progress Notes * Stalka Scanning, [facility] - 03/07/2012 1:59 PM CDT * Dony Aguilera RN - 03/03/2012 9:58 AM CDT [facility]. I talked with patient and he declines home health at this time. He is eating now and no further needs. For questions or concerns [phone] * Lora Pérez MD - 03/02/2012 6:24 [...] Lora Pérez MD PGY-1, Internal Medicine Pager: [phone] * Trevor Toledo MD - 03/02/2012 4:53 [...] Owens RN - 03/02/2012 4:39 PM CDT [facility] Referral received for potential [...] Sotelo MD - 03/02/2012 1:04 PM CDT [place], [place] [address] Initial Progress Note CSN: [id number] DATE OF SERVICE: I have been seeing [...] to follow the patient peripherally. PLR:MEDQ DID: [id number] Dictated by: Willian Sotelo MD * Rachell [...] AAOx3, no focal motor or sensory deficits, resource technician 2-12 grossly intact Data Base: Results for orders placed during the hospital encounter of 02/22/12 (from the past 24 hour(s)) POC GLUCOSE Component Value Range POC GLUCOSE 189 (*) 65 - 99 (mg/dL) CLIA LICENSE [id number] CLOSTRIDIUM DIFFICILE TOXIN Component Value Range C DIFF TOXIN PCR RESULT Negative Negative C DIFF TOXIN PCR SOURCE Stool POC GLUCOSE Component Value Range POC GLUCOSE 298 (*) 65 - 99 (mg/dL) CLIA LICENSE [id number] POC GLUCOSE Component Value Range POC GLUCOSE 256 (*) 65 - 99 (mg/dL) CLIA LICENSE [id number] CBC WITH DIFFERENTIAL Component Value Range WBC [...] (*) 65 - 99 (mg/dL) CLIA LICENSE [id number] Lab Results Component Value Date CRP 4.7* [...] Nichole MD - 03/02/2012 9:13 AM CDT [facility] I have independently seen and examined [...] d/c at am per surgery Gladys Nichole [id number] D/w at bedside . * Trevor Toledo [...] AAOx3, no focal motor or sensory deficits, resource technician 2-12 grossly intact Data Base: Results for orders placed during the hospital encounter of 02/22/12 (from the past 24 hour(s)) POC GLUCOSE Component Value Range POC GLUCOSE 240 (*) 65 - 99 (mg/dL) CLIA LICENSE [id number] POC GLUCOSE Component Value Range POC GLUCOSE 231 (*) 65 - 99 (mg/dL) CLIA LICENSE [id number] C-REACTIVE PROTEIN Component Value Range CRP 4.7 [...] (*) 65 - 99 (mg/dL) CLIA LICENSE [id number] POC GLUCOSE Component Value Range POC GLUCOSE 189 (*) 65 - 99 (mg/dL) CLIA LICENSE [id number] Lab Results Component Value Date CRP 4.7* [...] Nichole MD - 03/01/2012 1:18 PM CDT [facility] I have independently seen and examined [...] Vanco po ? Follow CRP. Gladys Nichole [id number] * Willian Sotelo MD - 02/29/2012 2:34 PM CDT [place], [place] [address] Initial Progress Note CSN: [id number] DATE OF SERVICE: 02/29/2012 I was present for the endoscopy of the distal ileal and pouch performed by Dr. Ryan yesterday and we have been in consultation since that time. The findings, which I was able to compare with my recollection of a prior endoscopic procedure on the 15 of February showed a dramatic worsening of the condition. The prior inflammation was a hrm-nv-kqwyhkqa mucosal inflammation with no evidence of ulcers. [...] him closely with Dr. Ryan. PLR:MEDQ DID: [id number] Dictated by: Willian Sotelo MD * Rachell [...] AAOx3, no focal motor or sensory deficits, resource technician 2-12 grossly intact Data Base: Results for orders placed during the hospital encounter of 02/22/12 (from the past 24 hour(s)) POC GLUCOSE Component Value Range POC GLUCOSE 218 (*) 65 - 99 (mg/dL) CLIA LICENSE [id number] POC GLUCOSE Component Value Range POC GLUCOSE 205 (*) 65 - 99 (mg/dL) CLIA LICENSE [id number] CBC WITH DIFFERENTIAL Component Value Range WBC [...] (*) 65 - 99 (mg/dL) CLIA LICENSE [id number] POC GLUCOSE Component Value Range POC GLUCOSE 225 (*) 65 - 99 (mg/dL) CLIA LICENSE [id number] Lab Results Component Value Date CRP 8.8* [...] Yin MD - 02/29/2012 1:14 PM CDT [facility] Attending Note Patient seen and examined [...] ones OK with GI. Sierra Yin MD [facility] Page [phone] * Katie Ryan MD - 02/29/2012 11:09 [...] AAOx3, no focal motor or sensory deficits, resource technician 2-12 grossly intact Data Base: Results for orders placed during the hospital encounter of 02/22/12 (from the past 24 hour(s)) POC GLUCOSE Component Value Range POC GLUCOSE 221 (*) 65 - 99 (mg/dL) CLIA LICENSE [id number] POC GLUCOSE Component Value Range POC GLUCOSE 394 (*) 65 - 99 (mg/dL) CLIA LICENSE [id number] CBC WITH MANUAL DIFFERENTIAL Component Value Range [...] (*) 65 - 99 (mg/dL) CLIA LICENSE [id number] POC GLUCOSE Component Value Range POC GLUCOSE 249 (*) 65 - 99 (mg/dL) CLIA LICENSE [id number] Lab Results Component Value Date CRP 8.8* [...] in future. Pain control - fair. Continue [place]. Possibility of using biological agents discussed with [...] Yin MD - 02/28/2012 3:12 PM CDT [facility] Attending Note Patient seen and examined [...] need TPN at home Sierra Yin MD [facility] Hospitalist Page [phone] * Ammy Adams - 02/28/2012 2:17 PM CDT Home Health referral received from [facility]. Thank you Ammy Adams * Trevor Toledo [...] (36.4 ??C) Oral 105 20 97 % 02/26/12 2016 - - - - 16 - Intake/Output Summary (Last 24 hours) at 02/27/12 1701 Last data filed at 02/27/12 1500 Gross per 24 hour Intake 1780 ml Output 2450 ml Net -670 ml Trevor Toledo MD 02/27/2012 * Pito Andrade MD - 02/27/2012 10:48 AM CDT [facility] Med Progress Note Admit Date: [...] AAOx3, no focal motor or sensory deficits, resource technician 2-12 grossly intact Data Base: Results for [...] in future. Pain control - fair. Continue [place]. Plan to do inpatient colonoscopy by GI [...] Yin MD - 02/27/2012 10:48 AM CDT [facility] Attending Note Patient seen and examined with [...] A/P as written by Sierra Christian MD [facility] Page [phone] * Katie Ryan MD - 02/26/2012 2:31 [...] Yin MD - 02/26/2012 8:48 AM CDT [facility] Med Progress Note Admit Date: [...] PICC line inserted 5/ Stool - GNR Abdominal pain is better although had some cramping episode last night and thinks it is due to advancement to full liquid diet. [place] tolerated with very little perspiration. Valium works [...] AAOx3, no focal motor or sensory deficits, resource technician 2-12 grossly intact Data Base: Results for [...] in future. Pain control - fair. Continue [place]. Plan to do inpatient colonoscopy by GI. [...] Andrade MD - 02/25/2012 7:48 AM CDT [facility] Progress Note Admit Date: 02/22/2012 [...] AAOx3, no focal motor or sensory deficits, resource technician 2-12 grossly intact Data Base: Results for [...] Yin MD - 02/25/2012 7:48 AM CDT [facility] Attending Note Patient seen and examined [...] both Percocet and Dilaudid. Will change to [place] and observe. 2. Malnutrition- mild to moderate. Pre-albumin is low. Start TPN until adequate diet allowed by GI and tolerated. 3. Disposition: home some time next week depends upon clinical progress. Sierra Yin MD [facility] Hospitalist Page [phone] * Magy Short RN - 02/24/2012 3:08 [...] Sotelo MD - 02/24/2012 3:04 PM CDT [place], [place] [address] Initial Progress Note CSN: [id number] DATE OF SERVICE: 02/24/2012 Vital signs are [...] will be covering for me. PLR:MEDQ DID: [id number] Dictated by: Willian Sotelo MD * Rachell [...] AAOx3, no focal motor or sensory deficits, resource technician 2-12 grossly intact Data Base: Results for [...] Yin MD - 02/24/2012 8:54 AM CDT [facility] Attending Note Patient seen and examined [...] nutrition. Consult nutrition. . Sierra Yin MD [facility] Page [phone] * Trevor Toledo MD - 02/24/2012 8:42 [...] support during this acute phase. 3. Consider JOB SITE SUPERINTENDENT for pain management given frequency of narcotic [...] Reyna MD - 02/23/2012 1:34 PM CDT [facility] Progress Note Admit [...] AAOx3, no focal motor or sensory deficits, resource technician 2-12 grossly intact Data Base: Results for [...] Yin MD - 02/23/2012 1:34 PM CDT [facility] Attending Note Patient seen and examined [...] from GI and surgery. Sierra Yin MD [facility] Hospitalist Page [phone] * David Donna Devon - 02/23/2012 10:27 AM CDT The lab support technician has clarified the prior to [...] Butler DO - 02/23/2012 2:06 AM CDT [facility] Resident H&P Patient Name: Mukul Huber Courtesy [...] 12/08/2009 COLONOSCOPY performed by WILLIAN SOTELO at [facility] GI LAB ??? Pr sigmoidoscopy,diagnostic 02/16/2012 SIGMOIDOSCOPY FLEXIBLE performed by Willian Sotelo MD at [facility] GI LAB ??? Pr endoscopy of bowel pouch 02/16/2012 POUCHOSCOPY performed by Willian Sotelo MD at [facility] GI LAB Outpt Meds: Prior to Admission [...] conference, nursing conference and discussion with any consultants. Plan d/w Dr. Immanuel Butler D.O. PGY1 [phone] * Richelle Gambino MD - 02/23/2012 2:06 AM CDT Agree-see my note Discussed with resident * Richelle Gambino MD - 02/23/2012 12:47 AM CDT [facility] Hospitalist Admission H & P Patient Name: Mukul Georgette Huber Primary Care Doctor: Martin Kelley MD Admitting [...] and shaking chills. He continued to have abdominalcramping, nausea with 2 episodes of vomiting, loose stools with mucus. As well, 2-3 days prior to admission, he noted dry cough, intermittent wheezing and fleeting upper bilateral chest pains. He denies hemoptysis. 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 Medication Allergies:No Known Allergies Current Medications: Prescriptions [...] 12/08/2009 COLONOSCOPY performed by WILLIAN SOTELO at [facility] GI LAB ??? Pr sigmoidoscopy,diagnostic 02/16/2012 SIGMOIDOSCOPY FLEXIBLE performed by Willian Sotelo MD at [facility] GI LAB ??? Pr endoscopy of bowel pouch 02/16/2012 POUCHOSCOPY performed by Willian Sotelo MD at [facility] GI LAB Social History: ; works as [...] Constitutional: see HPI HEENT: Denies vision loss, EEK, dental work, No trouble swallowing Resp: see HPI CV: denies previous UT, palpitations, syncope, PND, orthopnea, or LE edema, [...] in this encounter Procedure Notes * Stl Scanning [facility] - 03/21/2012 9:12 AM CDTAssociated Order(s): GI REPORT * Katie Ryan MD - 03/21/2012 9:11 AM CDTAssociated Order(s): GI REPORT [facility] Endoscopy Patient Name: Mukul Huber Procedure Date No Time: 02/28/2012 Date of : 1970 Attending MD: Katie Ryan MD Procedure: Images Only-Procedure Report in [facility] Providers: Katie Ryan MD Cyber Systems Operations Specialist Override Katie Ryan MD Number of Addenda: [phone]; [place] [address] * Stl Javon, [facility] - 03/07/2012 1:59 PM CDTAssociated Order(s): GI REPORT * Sebastian AlejandroFaizan - 02/28/2012 3:53 PM CDTAssociated Order(s): EKG 12-LEAD * Katie Ryan MD - 02/28/2012 1:57 PM CDTAssociated Order(s): GI REPORT [place], [place] [address] Gastroenterology CSN: [id number] DATE OF SERVICE: 02/28/2012 ENDOSCOPIC PROCEDURE HISTORY [...] approximately 40 cm, which shows similar appearances. Thesmall intestine is markedly inflamed with multiple ulcerations extending as far as we could see. There was an angle, and I could visualize the small intestine to an approximately another 15 cm, whichis completely abnormal with multiple ulcers. Photographs are obtained. Biopsies of the distal smallintestine and the pouch are obtained. Overall, the [...] and the possibility that C. diff could be present, although stool for C. diff is negative. JSF:MEDQ DID: [id number] Dictated by: Katie Ryan MD * Stalka Scanning, [facility] - 02/28/2012 9:37 AM CDTAssociated Order(s): GI REPORT * Katie Ryan MD - 02/28/2012 9:36 AM CDTAssociated Order(s): GI REPORT [facility] Endoscopy Patient Name: Mukul Huber Procedure Date No Time: 02/28/2012 Date of : 1970 Attending MD: Katie Ryan MD Procedure: Colonoscopy Providers: Katie Ryan MD Procedure: Informed consent was obtained for the procedure, including moderate sedation after risks were discussed. Based on the pre-procedure assessment, including review of the patient?s medical history, medications, allergies, and review of systems, the patient was deemed to be an appropriate candidate for sedation. A timeout was performed. Continuous ECG monitoring, pulse oximetry, blood pressure monitoring, and direct observation were performed. Submitted Katie Ryan MD Number of Addenda: [phone] ; [place] [address] documented in this encounter Consult Notes * [...] able to get himself positioned comfortably. Notify market asset protection manager if skin condition deteriorates. GI following, Surg following. * Naomie Blum RD - 02/24/2012 3:10 PM CDTAssociated Order(s): IP CONSULT TO NUTRITION SERVICES Nutrition Consult:assessment A: Ht: 5'9 Wt: 166# Br: 20 BM: 5/ Skin: intact Labs:Na 128, gluc 114 Diet: [...] Physician requesting Consult: Reason for consult: Pouchitis. KAW Patient: Mukul Huber is a 41 yo [...] and he seen in the ED at [facility] where he was treated for dehydration and was sent home with pain killers and a PPI. After going home he began having subjective fevers, chills. He denies any sick contacts. He does report some blood in his stool every time he stools now. He reports that his frequency of stools has also increased. He was seen in [facility] Ed where he had a CT [...] 12/08/2009 COLONOSCOPY performed by WILLIAN SOTELO at [facility] GI LAB ??? Pr sigmoidoscopy,diagnostic 02/16/2012 SIGMOIDOSCOPY FLEXIBLE performed by Willian Sotelo MD at [facility] GI LAB ??? Pr endoscopy of bowel pouch 02/16/2012 POUCHOSCOPY performed by Willian Sotelo MD at [facility] GI LAB Family History Problem Relation Age [...] 18 94 % 75.297 kg (166 lb) 02/22/12 2202 135/74 mmHg 100.6 ??F (38.1 ??C) - 117 18 95 % - 02/22/122028 122/75 mmHg - - 110 18 95 % - 02/22/121913 132/79 mmHg 100.3 ??F (37.9 ??C) Oral [...] has been discussed with Dr. Ryan. Tiburcio Toleod MD Internal Medicine R2 ([facility]) [phone] * Willian Sotelo MD - 02/23/2012 2:50 PM CDT [place], [place] [address] Consultation CSN: [id number] DATE OF SERVICE: REASON FOR CONSULTATION Abdominal [...] at that point, but he went to [facility] ER where he was told that [...] The abdomen is generally soft. There is hfmh-ao-qmkethej tenderness to deep palpation in both lower [...] without having to resort to this option. PLR:SHWETHA DID: [id number] Dictated by: Willian Sotelo MD documented in this encounter OR Notes * OR Anesthesia - Stl Scanning, [facility] - 03/07/2012 1:59 PM CDT * OR Anesthesia - Quynh Winter CRNA - 02/29/2012 10:38 AM CDT 02/29/2012 10:39 AM Mukulisaiah Huber No apparent Anesthesia related complications Quynh [...] CARDIOVASCULAR FUNCTION: Heart Rate (Monitored): 101 bpm (02/28/12758) BP: 79/54 mmHg (02/28/12950) Circulation: BP within [...] supine] TEMPERATURE: Temp: 96.8 ??F (36 ??C) (02/28/12941) PAIN: Pain Rating: Rest: 3 (02/28/12 030) Presence of Pain: denies pain/discomfort (02/28/12944) Pain: pain free (02/28/12946) [2=pain free, 1=pain [...] Mukul Huber Age: 41 y.o. Sex: male [facility]: [id number] Procedure: Procedure(s): COLONOSCOPY ESOPHAGOGASTRODUODENOSCOPY Surgeons/Assistants: Surgeon(s) and [...] min Katie Ryan MD 34 Gram at 02/27/12 2115 ??? DISCONTD: ADULT TPN - CENTRAL IV [...] QID Katie Ryan MD 5 mg at 02/27/124 ??? DISCONTD: ADULT TPN - CENTRAL IV [...] Sierra Yin MD 10 mL at 02/28/12 06 ??? heparin, porcine (pf) 100 unit/mL injection 300 Units 300 Units IV Daily EARLY Sierra Yin MD 300 Units at 02/28/12 0606 ??? sodium chloride 0.9 % flush injection 10 mL 10 mL IV See Admin Notes Sierra Yin MD 10 mL at 02/27/122145 ??? heparin, porcine (pf) 100 unit/mL injection 300 Units 300 Units IV See Admin Notes Sierra Yin MD 300 Units at 02/27/122145 ??? mesalamine (ASACOL) tablet 800 mg 800 mg Oral TID Bo Butler DO 800 mg at 02/27/12 1721 ??? naloxone (NARCAN) 0.4 mg/mL injection 0.1 mg 0.1 mg IV See Admin Notes Luke, Bo, DO ??? ondansetron (ZOFRAN ODT) tablet 4 mg 4 mg Sublingual q 8 hour PRN Bo Butler, DO 4 mg at 02/24/12 0439 ??? acetaminophen (TYLENOL) tablet 650 mg 650 mg Oral q 4 hour PRN Bo Butler DO 650 mg at 02/24/12 0826 ??? enoxaparin (LOVENOX) injection 40 mg 40 mg subCUT q 24 hour (daily) Bo Butler DO ??? metroNIDAZOLE (FLAGYL) IVPB 500 mg 500 mg IV q 8 hour Bo Butler, DO 500 mg at 02/28/12 0431 ??? fluticasone [...] 12/08/2009 COLONOSCOPY performed by WILLIAN SOTELO at [facility] GI LAB ??? Pr sigmoidoscopy,diagnostic 02/16/2012 SIGMOIDOSCOPY FLEXIBLE performed by Willian Sotelo MD at [facility] GI LAB ??? Pr endoscopy of bowel pouch 02/16/2012 POUCHOSCOPY performed by Willian Sotelo MD at [facility] GI LAB History Substance Use Topics ??? [...] 12/08/2009 COLONOSCOPY performed by WILLIAN SOTELO at [facility] GI LAB ??? Pr sigmoidoscopy,diagnostic 02/16/2012 SIGMOIDOSCOPY FLEXIBLE performed by Willian Sotelo MD at [facility] GI LAB ??? Pr endoscopy of bowel pouch 02/16/2012 POUCHOSCOPY performed by Willian Sotelo MD at [facility] GI LAB Family History Problem Relation Age [...] Abdominal pain ??? 276.1 Hyponatremia CASE DISCUSSED [facility] Domitila Carter PATIENT COUNSELING Diagnostics reviewed and questions answered. [...] it was mucus. Pt was seen at [facility] 2 days ago and tx for dehydration. Reports nausea and diarrhea villareal s persisted, denies vomiting. Pt was seen by PCP and had XR done which showed possible bowel obstruction. Pt nauseated at this time, reports bile like emesis 30 minutes ago. States last normal BM wasyeday. Reports mucus like diarrhea every 30 minutes today, also reports occasional muscle cramps. Abdomen is flat, slightly tender. No distention noted. Bowel sounds present throughout. Skin is warm, slightly diaphoretic. Pt reports pain 8/10 documented in this encounter Miscellaneous Notes * Scanned Form - Stl Scanning, Him - 03/07/2012 1:59 PM CDT Electronically signed by Interface, [facility] Stl Bulk Mail Clerk Incoming at 03/07/2012 1:59 PM CDT * Scanned Form - Stl Scanning, [facility] - 03/07/2012 1:59 PM CDT Electronically signed by Interface, [facility] Stl Bulk Mail Clerk Incoming at 03/07/2012 1:59 PM CDT * Patient Instructions - Stl Scanning, [facility] - 03/07/2012 1:59 PM CDT Electronically signed by Interface, [facility] Stl Bulk Mail Clerk Incoming at 03/07/2012 1:59 PM CDT * Scanned Form - Stl Scanning, [facility] - 03/07/2012 1:59 PM CDT Electronically signed by Interface, [facility] Stl Bulk Mail Clerk Incoming at 03/07/2012 1:59 PM CDT * Care Plan - Germania Farmer RN - 03/03/2012 9:55 AM CDT Problem: General Plan of Care (Adult, Obstetrics) Goal: Plan of Care Review (Adult, Obstetrics) The patient and/or their personal financial representative will communicate an understanding of their [...] to be DC tomorrow morning before pt MD SABINO ok with not changing dressing today. Problem: [...] Review (Adult, Obstetrics) The patient and/or their personal financial representative will communicate an understanding of their [...] Level Patient will demonstrate the desired outcomes. [place] given for pain this shift, verbalizes relief [...] Goal (Adult, Obstetrics) The patient and/or their personal financial representative will achieve their patient-specific goals related [...] Review (Adult, Obstetrics) The patient and/or their personal financial representative will communicate an understanding of their [...] Patient lives with . 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 Potential for home TPN discussed. Notified Ammy with [facility] [id number] to follow for possiblehome TPN need. * [...] Review (Adult, Obstetrics) The patient and/or their personal financial representative will communicate an understanding of their [...] glucose elevated, insulin given per sliding scale, parts person notified no new orders received, will monitor, blood glucose ordered Q6. Results for MUKUL HUBER ( ) as of 02/28/2012 06:38 Ref. Range 02/28/2012 05:58 POC GLUCOSE Latest Range: 65-99 mg/dL 189 (H) 5 units novolog given * Care Plan - Naomie Blum, RD - 02/27/2012 10:02 AM CDT Problem: [...] Review (Adult, Obstetrics) The patient and/or their personal financial representative will communicate an understanding of their [...] Review (Adult, Obstetrics) The patient and/or their personal financial representative will communicate an understanding of their [...] If patient's respiratory condition changes, please call [phone]. * Care Plan - Nils Dover (Two), Student Respiratory - 02/26/2012 9:03 AM CDT Problem: General Plan of Care (Adult, Obstetrics) Goal: Individualization/Patient-Specific Goal (Adult, Obstetrics) The patient and/or their personal financial representative will achieve their patient-specific goals related [...] Goal (Adult, Obstetrics) The patient and/or their personal financial representative will achieve their patient-specific goals related [...] Goal (Adult, Obstetrics) The patient and/or their personal financial representative will achieve their patient-specific goals related [...] Goal (Adult, Obstetrics) The patient and/or their personal financial representative will achieve their patient-specific goals related [...] percocet makes me sweat just like the otherpill did, and it doesn't seem to work [...] Goal (Adult, Obstetrics) The patient and/or their personal financial representative will achieve their patient-specific goals related [...] communication barriers observed. * Scanned Form - Sebastian Alejandro, Faizan - 02/24/2012 11:03 AM CDT * Care Plan - Philly Mccoy RN - 02/24/2012 4:53 AM CDT Problem: General Plan of Care (Adult, Obstetrics) Goal: Individualization/Patient-Specific Goal (Adult, Obstetrics) The patient and/or their personal financial representative will achieve their patient-specific goals related [...] Review (Adult, Obstetrics) The patient and/or their personal financial representative will communicate an understanding of their plan of care. Outcome: Progressing RT Assess & Treat Note Plan: Patient will remain on Duoneb Q6prn for bronchodilation and deep breathe and cough for airwayclearance and lung expansion. Patient will have follow up in 72 hours per protocol. 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 2. Only licensed [...] usage 3. Other indications stated in the [employer]???s Clinical Practice Guidelines [...] Actual/Predicted % % % 3. Respiratory Therapist Leather Production Machine Operator is to evaluate and score the patient???s [...] regimen will be reassessed after 72 hours [place] the patient???s home frequency and if possible [...] Pharmacy Policy, Section: APPROVED THERAPEUTIC INTERCHANGES FOR [facility], Title: Beta Agonists Patients taking home regimen [...] Goal (Adult, Obstetrics) The patient and/or their personal financial representative will achieve their patient-specific goals related [...] [facility] [place] [address] [place] [address] Kitty Dover, ANP [address] [place] [address] [place] [address] documented as of this encounter [...] Ryan MD - 02/28/2012 1:57 PM CDT [place], [place] [address] Gastroenterology CSN: [id number] DATE OF SERVICE: 02/28/2012 ENDOSCOPIC PROCEDURE HISTORY [...] although stool for C. diff is negative. ZANEF:MEDAllison DID:[id number] Dictated by: Katie Ryan MD [facility], [facility] - 03/07/2012 1:59 PM CDT Katie Ryan MD GI PROCEDURE [facility]AB [facility] * (ABNORMAL) CBC WITH DIFFERENTIAL (03/03/2012 4:25 AM CDT) WBC 16.5(H) 4.0 - 9.8 K/uL [facility] RBC 4.07(L) 4.50 - 5.40 M/uL [facility] HEMOGLOBIN 11.4(L) 13.6 - 16.5 g/dL [facility] HEMATOCRIT 36.1(L) 40.0 - 48.0 % [facility] MCV 88.7 82.0 - 99.0 fL [facility] MCH 28.0 27.2 - 32.6 pg [facility] MCHC 31.6 31.5 - 35.5 % [facility] PLATELETS 574(H) 140 - 350 K/uL [facility] MPV 9.1(L) 9.3 - 12.4 fL [facility] RDW 13.9 11.5 - 14.5 % [facility] RDW-STDEV 45.5 37.1 - 48.7 fL [facility] NEUTROPHILS, SEG 93(H) 45 - 70 % [facility] BANDS 1 0 - 5 % [facility] LYMPHOCYTES 2(L) 16 - 45 % [facility] MONOCYTES 4 3 - 13 % [facility] EOSINOPHILS 0 0 - 7 % [facility] BASOPHILS 0 0 - 2 % [facility] PLATELET EST. Consistent w/ count Normal [facility] NEUTROPHIL ABSOLUTE 15.51(H) 1.90 - 7.00 K/uL [facility] LYMPHOCYTE ABSOLUTE 0.33(L) 0.70 - 4.50 K/uL [facility] MONOCYTE ABSOLUTE 0.66 0.10 - 1.30 K/uL [facility] EOSINOPHIL ABSOLUTE 0.00 0.00 - 0.70 K/uL [facility] - [facility] BASOPHILS ABSOLUTE 0.00 0.00 - 0.20 K/uL [facility] - [facility] RBC MORPHOLOGY Normal Normal [facility] Blood specimen (specimen) 03/03/2012 4:25 AM CDT 03/03/2012 5:30 AM CDT Gladys Calvo MD HEMATOLOGY O RDERABLES [facility] CLIA# [id number] [address] [place] [place] [address] * (ABNORMAL) POC GLUCOSE (03/02/2012 8:48 PM CDT) GLUCOSE POC 129(H) 65 - 99 mg/dL [facility] CLIA LICENSE [id number] [facility] Blood specimen (specimen) 03/02/2012 8:48 PM CDT 03/02/2012 8:48 PM CDT Gladys Calvo MD POINT OF CAR E TESTING Performing Organization Address [facility]/ZIP Co de Phone Number [facility] CLIA# [id number] [address] [place] [address] * (ABNORMAL) POC GLUCOSE (03/02/2012 5:56 PM CDT) GLUCOSE POC 129(H) 65 - 99 mg/dL [facility] CLIA LICENSE [id number] [facility] Blood specimen (specimen) 03/02/2012 5:56 PM CDT 03/02/2012 5:56 PM CDT Gladys Calvo MD POINT OF CAR E TESTING [facility] CLIA# [id number] [address] [place] [address] * (ABNORMAL) POC GLUCOSE (03/02/2012 12:17 PM CDT) [facility] GLUCOSE POC 302(H) 65 - 99 mg/dL [facility] CLIA LICENSE [id number] [facility] Blood specimen (specimen) 03/02/2012 12:17 PM CDT 03/02/2012 12:17 PM CDT Gladys Calvo MD POINT OF CAR E TESTING [facility]# [id number] [address] [place] [address] * (ABNORMAL) C-REACTIVE PROTEIN (03/02/2012 11:00 AM CDT) [facility] CRP 1.9(H) 0.0 - 0.8 mg/dL [facility] Blood specimen (specimen) 03/02/2012 11:00 AM CDT 03/02/2012 3:23 PM CDT Gladys Calvo MD CHEMISTRY OR DERABLES [facility]# [id number] [address] [place] [address] * (ABNORMAL) BASIC METABOLIC PANEL (03/02/2012 11:00 AM CDT) [facility] SODIUM 133(L) 135 - 145 mmol/L [facility] POTASSIUM 4.8 3.5 - 4.9 mmol/L [facility] SERVICES [facility] CHLORIDE 97 96 - 108 mmol/L [facility] CO2 28 22 - 30 mmol/L [facility] CALCIUM 8.5(L) 8.6 - 10.2 mg/dL [facility] BUN 18 6 - 20 mg/dL [facility] CREATININE 0.60(L) 0.67 - 1.17 mg/dL [facility] GLUCOSE 283(H) 65 - 99 mg/dL [facility] GFR, >60 >=60 mL/min/1. 7 sq meter [facility] - [facility] GFR >60 >=60 mL/min/1. 7 sq meter [facility] Comment: GFR is calculated using the IDMS-Traceable Modification of Diet in Renal Disease (MDRD) Study formula and is only valid for patients 18 years or older. Further interpretative information is available in the Laboratory Services Policy Manual on the [facility] Intranet at: http://[facility] city hospitalet.[facility]/ Blood specimen (specimen) 03/02/2012 11:00 AM CDT 03/02/2012 11:09 AM CDT Gladys Calvo MD CHEMISTRY OR DERABLES Performing Organization Address City/[facility]/ZIP Co de Phone Number [facility] CLIA# [id number] [address] [place] [address] * (ABNORMAL) POC GLUCOSE (03/02/2012 6:01 AM CDT) GLUCOSE POC 160(H) 65 - 99 mg/dL [facility] CLIA LICENSE [id number] [facility] Blood specimen (specimen) 03/02/2012 6:01 AM CDT 03/02/2012 6:01 AM CDT Gladys Calvo MD POINT OF CAR E TESTING Performing Organization Address [facility]/ZIP Co de Phone Number [facility] CLIA# [id number] [address] [place] [address] * (ABNORMAL) CBC WITH DIFFERENTIAL (03/02/2012 6:00 AM CDT) WBC 16.0(H) 4.0 - 9.8 K/uL [facility] RBC 3.72(L) 4.50 - 5.40 M/uL [facility] HEMOGLOBIN 10.5(L) 13.6 - 16.5 g/dL [facility] HEMATOCRIT 32.9(L) 40.0 - 48.0 % [facility] MCV 88.4 82.0 - 99.0 fL [facility] MCH 28.2 27.2 - 32.6 pg [facility] MCHC 31.9 31.5 - 35.5 % [facility] PLATELETS 503(H) 140 - 350 K/uL [facility] MPV 9.0(L) 9.3 - 12.4 fL [facility] RDW 13.9 11.5 - 14.5 % [facility] RDW-STDEV 45.1 37.1 - 48.7 fL [facility] NEUTROPHILS, SEG 87(H) 45 - 70 % [facility] LYMPHOCYTES 5(L) 16 - 45 % [facility] MONOCYTES 5 3 - 13 % [facility] EOSINOPHILS 0 0 - 7 % [facility] BASOPHILS 0 0 - 2 % [facility] METAMYELOCYTE 2(H) <=0 % [facility] MYELOCYTES 1(H) <=0 % [facility] PLATELET EST. Consistent w/ count Normal [facility] NEUTROPHIL ABSOLUTE 13.92(H) 1.90 - 7.00 K/uL [facility] LYMPHOCYTE ABSOLUTE 0.80 0.70 - 4.50 K/uL [facility] MONOCYTE ABSOLUTE 0.80 0.10 - 1.30 K/uL [facility] EOSINOPHIL ABSOLUTE 0.00 0.00 - 0.70 K/uL [facility] BASOPHILS ABSOLUTE 0.00 0.00 - 0.20 K/uL [facility] ANISOCYTOSIS Slight [facility] POIKILOCYTES Slight [facility] Blood specimen (specimen) 03/02/2012 6:00 AM CDT 03/02/2012 6:13 AM CDT Sierra Yin MD HEMATOLOGY ORDERABLE S [facility] CLIA# [id number] [address] [place] [address] * (ABNORMAL) POC GLUCOSE (03/01/2012 11:48 PM CDT) GLUCOSE POC 256(H) 65 - 99 mg/dL [facility] CLIA LICENSE [id number] [facility] Blood specimen (specimen) 03/01/2012 11:48 PM CDT 03/01/2012 11:48 PM CDT Gladys Calvo MD POINT OF CAR E TESTING Performing Organization Address [facility]/ZIP Co de Phone Number [facility] CLIA# [id number] [address] [place] [address] * (ABNORMAL) POC GLUCOSE (03/01/2012 5:38 PM CDT) GLUCOSE POC 298(H) 65 - 99 mg/dL [facility] CLIA LICENSE [id number] [facility] Blood specimen (specimen) 03/01/2012 5:38 PM CDT 03/01/2012 5:38 PM CDT Gladys Calvo MD POINT OF CAR E TESTING [facility] [place] CLIA# [id number] [address] [place] [address] * CLOSTRIDIUM DIFFICILE TOXIN (03/01/2012 2:51 PM CDT) C DIFF TOXIN PCR RESULT Negative Negative [facility] C DIFF TOXIN PCR SOURCE Stool [facility] Stool specimen (specimen) 03/01/2012 2:51 PM CDT 03/01/2012 2:55 PM CDT Comment:STOOL Gladys Calvo MD MICROBIOLOGY - GENERAL ORDERABLES Performing Organization Address [facility]/ZIP Co de Phone Number [facility]# [id number] [address] [facility] [place] [address] * (ABNORMAL) POC GLUCOSE (03/01/2012 11:45 AM CDT) GLUCOSE POC 189(H) 65 - 99 mg/dL [facility] CLIA LICENSE [id number] [facility] Blood specimen (specimen) 03/01/2012 11:45 AM CDT 03/01/2012 11:45 AM CDT Gladys Calvo MD POINT OF CAR E TESTING Performing Organization Address [facility] Co de Phone Number [facility]# [id number] [address] [facility] [place] [address] * IP CONSULT TO WOUND CARE (03/01/2012 [...] able to get himself positioned comfortably. ??Notify market asset protection manager if skin condition deteriorates. ??GI following, ??Surg [...] is able to gethimself positioned comfortably. Notify market asset protection manager if skin conditiondeteriorates. GI following, Surg following. Katie Ryan MD INPATIENT CONSULT OR DERABLES * (ABNORMAL) POC GLUCOSE (03/01/2012 5:53 AM CDT) [facility] GLUCOSE POC 229(H) 65 - 99 mg/dL [facility] [place] CLIA LICENSE [id number] [facility] [place] [facility] Blood specimen (specimen) 03/01/2012 5:53 AM CDT 03/01/2012 5:53 AM CDT Sierra Yin MD POINT OF CARE TESTIN G [facility]# [id number] [address] [facility] [place] [address] * (ABNORMAL) CBC WITH DIFFERENTIAL (03/01/2012 1:40 AM CDT) WBC 23.8(H) 4.0 - 9.8 K/uL [facility] [place] RBC 3.97(L) 4.50 - 5.40 M/uL [facility] [place] [facility] HEMOGLOBIN 11.5(L) 13.6 - 16.5 g/dL [facility] [place] [facility] HEMATOCRIT 34.6(L) 40.0 - 48.0 % [facility] LAB[facility]ORY [facility] MCV 87.2 82.0 - 99.0 fL [facility] MCH 29.0 27.2 - 32.6 pg [facility] MCHC 33.2 31.5 - 35.5 % [facility] PLATELETS 374(H) 140 - 350 K/uL [facility] MPV 9.1(L) 9.3 - 12.4 fL [facility] RDW 13.6 11.5 - 14.5 % [facility] RDW-STDEV 43.7 37.1 - 48.7 fL [facility] NEUTROPHILS 93(H) 45 - 70 % [facility] LYMPHOCYTES 4(L) 16 - 45 % [facility] MONOCYTES 3 3 - 13 % [facility] EOSINOPHILS 0 0 - 7 % [facility] BASOPHILS 0 0 - 2 % [facility] NEUTROPHIL ABSOLUTE 22.12(H) 1.90 - 7.00 K/uL [facility] LYMPHOCYTE ABSOLUTE 1.07 0.70 - 4.50 K/uL [facility] MONOCYTE ABSOLUTE 0.62 0.10 - 1.30 K/uL [facility] EOSINOPHIL ABSOLUTE 0.00 0.00 - 0.70 K/uL [facility] BASOPHILS ABSOLUTE 0.02 0.00 - 0.20 K/uL [employer] [facility] Blood specimen (specimen) 03/01/2012 1:40 AM CDT 03/01/2012 1:54 AM CDT Katie Ryan MD HEMATOLOGY ORDERABLE S [facility] CLIA# [id number] [address] [facility] [facility] [address] [place] [address] * (ABNORMAL) COMPREHENSIVE METABOLIC PANEL (03/01/2012 1:40 AM CDT) SODIUM 132(L) 135 - 145 mmol/L [employer] [facility]ATORY SERVICES - [facility] POTASSIUM 4.5 3.5 - 4.9 mmol/L [facility] CHLORIDE 96 96 - 108 mmol/L [facility] CO2 29 22 - 30 mmol/L [facility] CALCIUM 8.5(L) 8.6 - 10.2 mg/dL [facility] BUN 18 6 - 20 mg/dL [facility] CREATININE 0.68 0.67 - 1.17 mg/dL [facility] GLUCOSE 258(H) 65 - 99 mg/dL [facility] TOTAL PROTEIN 5.7(L) 6.3 - 8.6 g/dL [facility] ALBUMIN 2.7(L) 3.4 - 4.8 g/dL [facility] BILIRUBIN TOTAL 0.2 0.2 - 1.0 mg/dL [facility] ALKALINE PHOSPHATASE 181(H) 40 - 129 U/L [facility] AST 31 12 - 38 U/L [facility] ALT 45(H) 0 - 41 U/L [facility] GFR, >60 >=60 mL/min/1. 7 sq meter [facility] GFR >60 >=60 mL/min/1. 7 sq meter [facility] Comment: GFR is calculated using the IDMS-Traceable Modification of Diet in Renal Disease (MDRD) Study formula and is only valid for patients 18 years or older. Further interpretative information is available in the Laboratory Services Policy Manual on the [facility] Intranet at: http://[facility]-intranet.[facility]/ Blood specimen (specimen) 03/01/2012 1:40 AM CDT 03/01/2012 1:54 AM CDT Katie Ryan MD CHEMISTRY ORDERABLES [facility] LAB[facility] CLIA# [id number] [address] [facility] [facility] [place] [address] * (ABNORMAL) C-REACTIVE PROTEIN (03/01/2012 1:40 AM CDT) CRP 4.7(H) 0.0 - 0.8 mg/dL [facility] Blood specimen (specimen) 03/01/2012 1:40 AM CDT 03/01/2012 1:54 AM CDT Katie Ryan MD CHEMISTRY ORDERABLES [facility] CLIA# [id number] [address] [place] [address] * (ABNORMAL) POC GLUCOSE (03/01/2012 12:11 AM CDT) GLUCOSE POC 231(H) 65 - 99 mg/dL [facility] CLIA LICENSE [id number] [facility] Blood specimen (specimen) 03/01/2012 12:11 AM CDT 03/01/2012 12:11 AM CDT Sierra Yin MD POINT OF CARE TESTELIE Barron Performing Organization Address [facility] Co de Phone Number [facility] [place] CLIA# [id number] [address] [place] [address] * (ABNORMAL) POC GLUCOSE (02/29/2012 6:04 PM CDT) GLUCOSE POC 240(H) 65 - 99 mg/dL [facility] [place] [facility] CLIA LICENSE [id number] [facility] [place] [facility] Blood specimen (specimen) 02/29/2012 6:04 PM CDT 02/29/2012 6:04 PM CDT Sierra Yin MD POINT OF CARE TESTELIE Barron Performing Organization Address City/[facility]/ZIP Co de Phone Number [facility] [place] [facility] CLIA# [id number] [address] [place] [address] * (ABNORMAL) POC GLUCOSE (02/29/2012 11:49 AM CDT) GLUCOSE POC 225(H) 65 - 99 mg/dL [facility] CLIA LICENSE [id number] [facility] Blood specimen (specimen) 02/29/2012 11:49 AM CDT 02/29/2012 11:49 AM CDT Sierra Yin MD POINT OF CARE TESTIN Beat[place] [facility] CLIA# [id number] [address] [place] [address] * (ABNORMAL) POC GLUCOSE (02/29/2012 5:10 AM CDT) GLUCOSE POC 171(H) 65 - 99 mg/dL [facility] CLIA LICENSE [id number] [facility] Blood specimen (specimen) 02/29/2012 5:10 AM CDT 02/29/2012 5:10 AM CDT Sierra Yin MD POINT OF CARE TESTIN G [facility] CLIA# [id number] [address] [place] [address] * (ABNORMAL) CBC WITH DIFFERENTIAL (02/29/2012 3:00 AM CDT) WBC 26.1(H) 4.0 - 9.8 K/uL [facility] [facility] RBC 4.09(L) 4.50 - 5.40 M/uL [facility] HEMOGLOBIN 12.1(L) 13.6 - 16.5 g/dL [facility] HEMATOCRIT 35.8(L) 40.0 - 48.0 % [facility] MCV 87.5 82.0 - 99.0 fL [facility] MCH 29.6 27.2 - 32.6 pg [facility] MCHC 33.8 31.5 - 35.5 % [facility] PLATELETS 354(H) 140 - 350 K/uL [facility] MPV 9.4 9.3 - 12.4 fL [employer] [facility] RDW 13.7 11.5 - 14.5 % [facility] RDW-STDEV 44.0 37.1 - 48.7 fL [facility] NEUTROPHILS 93(H) 45 - 70 % [facility] LYMPHOCYTES 2(L) 16 - 45 % [facility] MONOCYTES 6 3 - 13 % [facility] EOSINOPHILS 0 0 - 7 % [facility] BASOPHILS 0 0 - 2 % [facility] NEUTROPHIL ABSOLUTE 24.23(H) 1.90 - 7.00 K/uL [facility] LYMPHOCYTE ABSOLUTE 0.40(L) 0.70 - 4.50 K/uL [facility] MONOCYTE ABSOLUTE 1.45(H) 0.10 - 1.30 K/uL [facility] EOSINOPHIL ABSOLUTE 0.00 0.00 - 0.70 K/uL [facility] BASOPHILS ABSOLUTE 0.03 0.00 - 0.20 K/uL [facility] [employer] [facility] Blood specimen (specimen) 02/29/2012 3:00 AM CDT 02/29/2012 5:50 AM CDT Sierra Yin MD HEMATOLOGY ORDERABLE S [employer] [facility] CLIA# [id number] [address] [address] * (ABNORMAL) BASIC METABOLIC PANEL (02/29/2012 3:00 AM CDT) SODIUM 130(L) 135 - 145 mmol/L [facility] [employer] [facility] POTASSIUM 4.1 3.5 - 4.9 mmol/L [facility] CHLORIDE 94(L) 96 - 108 mmol/L [facility] CO2 27 22 - 30 mmol/L [facility] CALCIUM 8.6 8.6 - 10.2 mg/dL [facility] BUN 17 6 - 20 mg/dL [facility] CREATININE 0.65(L) 0.67 - 1.17 mg/dL [facility] GLUCOSE 177(H) 65 - 99 mg/dL [facility] GFR, >60 >=60 mL/min/1. 7 sq meter [facility] GFR >60 >=60 mL/min/1. 7 sq meter [facility] Comment: GFR is calculated using the IDMS-Traceable Modification of Diet in Renal Disease (MDRD) Study formula and is only valid for patients 18 years or older. Further interpretative information is available in the Laboratory Services Policy Manual on the [facility] Intranet at: http://[facility]-Swrveet.[facility]/ Blood specimen (specimen) 02/29/2012 3:00 AM CDT 02/29/2012 5:50 AM CDT Sierra Yin MD CHEMISTRY ORDERABLES Performing Organization Address City/[facility]/ZIP Co de Phone Number [facility] CLIA# [id number] [address] [place] [address] * (ABNORMAL) POC GLUCOSE (02/29/2012 12:10 AM CDT) GLUCOSE POC 205(H) 65 - 99 mg/dL [facility] CLIA LICENSE [id number] [facility] Blood specimen (specimen) 02/29/2012 12:10 AM CDT 02/29/2012 12:10 AM CDT Sierra Yin MD POINT OF CARE TESTIN G [facility] CLIA# [id number] [address] [place] [address] * (ABNORMAL) POC GLUCOSE (02/28/2012 6:08 PM CDT) GLUCOSE POC 218(H) 65 - 99 mg/dL [facility] [id number] [facility] Blood specimen (specimen) 02/28/2012 6:08 PM CDT 02/28/2012 6:08 PM CDT Sierra Yin MD POINT OF LASHELL Barron Performing Organization Address [facility]/ZIP Co de Phone Number [facility]# [id number] [address] [place] [address] * EKG 12-LEAD (02/28/2012 3:53 PM CDT) Narrative Transcriptions Stl Scanning, [facility] - 02/28/2012 3:53 PM CDT Sierra Yin MD ECG ORDERABLES * (ABNORMAL) POC GLUCOSE (02/28/2012 12:56 PM CDT) GLUCOSE POC 249(H) 65 - 99 mg/dL [facility] [id number] [facility] [place] [facility] Blood specimen (specimen) 02/28/2012 12:56 PM CDT 02/28/2012 12:56 PM CDT Sierra [place] Barron Performing Organization Address City/[facility]/ZIP Co de Phone Number [facility] [place] [facility] [id number] [address] [place] [address] * PATHOLOGY (02/28/2012 11:20 AM CDT) SURGICAL PATHOLOGY ?[facility] ?[address] ? [place], [place] ??[address] ? Patient: ??MUKUL HUBER S ? : ??1970 ? Procedure Date: ??02/28/2012 ? Accession Date: ??02/28/2012 ? Case No: ??[id number] ? Ordering Dr: ??KATIE RYAN ? Case type SW is performed by [address], ? [place], [place] ??[address]; all other case types are performed by [facility] ? [facility], [address], [place], [place] ??[address] ?SURGICAL PATHOLOGY & NON-GYNECOLOGIC CYTOPATHOLOGY REPORT ? [...] Gross: ? Receive are four containers labeled Mukulisaiah Huber. Received in the first ? container [...] specimen is completely submitted labeled D1. ? [facility] 02.29.2012 05:10 am ? Microscopic: ? The slides are labeled [id number] and Mukul Huber. ? 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 ? The slides from the original colectomy [...] and ? its performance characteristic determined by [facility], ? Department of Laboratory Medicine. [...] FOR LUIS EVANS M.D.- 03/01/12 03:15 pm [facility] 02/28/2012 11:2 0 AM CDT Katie Ryan MD PATHOLOGY/CYTOLOGY O RDERABLES Performing Organization Address [facility]/ZIP Co de Phone Number [facility] CLIA# [id number] [address] [place] [address] * (ABNORMAL) POC GLUCOSE (02/28/2012 5:58 AM CDT) [facility] GLUCOSE POC 189(H) 65 - 99 mg/dL [facility] CLIA LICENSE [id number] [facility] Blood specimen (specimen) 02/28/2012 5:58 AM CDT 02/28/2012 5:58 AM CDT Sierra Yin MD POINT OF CARE TESTIN G Performing Organization Address [facility]/ZIP Co de Phone Number [facility] CLIA# [id number] [address] [place] [address] * (ABNORMAL) C-REACTIVE PROTEIN (02/28/2012 4:35 AM CDT) [facility] CRP 8.8(H) 0.0 - 0.8 mg/dL [facility] Blood specimen (specimen) 02/28/2012 4:35 AM CDT 02/28/2012 9:33 AM CDT Sierra Yin MD CHEMISTRY ORDERABLES [facility] CLIA# [id number] [address] [place] [address] * (ABNORMAL) COMPREHENSIVE METABOLIC PANEL (02/28/2012 4:35 AM CDT) SODIUM 133(L) 135 - 145 mmol/L [facility] POTASSIUM 4.4 3.5 - 4.9 mmol/L [facility] CHLORIDE 95(L) 96 - 108 mmol/L [facility] CO2 28 22 - 30 mmol/L [facility] CALCIUM 8.8 8.6 - 10.2 mg/dL [facility] BUN 18 6 - 20 mg/dL [facility] CREATININE 0.70 0.67 - 1.17 mg/dL [facility] GLUCOSE 160(H) 65 - 99 mg/dL [facility] TOTAL PROTEIN 6.4 6.3 - 8.6 g/dL [facility] ALBUMIN 3.0(L) 3.4 - 4.8 g/dL [facility] BILIRUBIN TOTAL 0.3 0.2 - 1.0 mg/dL [facility] ALKALINE PHOSPHATASE 200(H) 40 - 129 U/L [facility] AST 28 12 - 38 U/L [facility] ALT 61(H) 0 - 41 U/L [facility] GFR, >60 >=60 mL/min/1. 7 sq meter [facility] GFR >60 >=60 mL/min/1. 7 sq meter [facility] Comment: GFR is calculated using the IDMS-Traceable Modification of Diet in Renal Disease (MDRD) Study formula and is only valid for patients 18 years or older. Further interpretative information is available in the Laboratory Services Policy Manual on the [facility] Intranet at: http://[facility]-intranet.[facility] health centerCompufirstacmc healthcare system.[facility]/ Blood specimen (specimen) 02/28/2012 4:35 AM CDT 02/28/2012 4:58 AM CDT Sierra Yin MD CHEMISTRY ORDERABLES [facility] CLIA# [id number] [address] [place] [address] * (ABNORMAL) CBC WITH MANUAL DIFFERENTIAL (02/28/2012 4:35 AM CDT) WBC 21.2(H) 4.0 - 9.8 K/uL [facility] RBC 4.35(L) 4.50 - 5.40 M/uL [facility] HEMOGLOBIN 12.9(L) 13.6 - 16.5 g/dL [facility] HEMATOCRIT 37.8(L) 40.0 - 48.0 % [facility] MCV 86.9 82.0 - 99.0 fL [facility] MCH 29.7 27.2 - 32.6 pg [facility] MCHC 34.1 31.5 - 35.5 % [facility] PLATELETS 347 140 - 350 K/uL [facility] MPV 9.6 9.3 - 12.4 fL [facility] RDW 13.6 11.5 - 14.5 % [employer] [facility]ATORY [facility] RDW-STDEV 43.2 37.1 - 48.7 fL [facility] NEUTROPHILS 87(H) 45 - 70 % [employer] [facility]ATORY [facility] LYMPHOCYTES 3(L) 16 - 45 % [employer] LABORATORY SERVICES [facility] MONOCYTES 10 3 - 13 % [employer] [facility]ATORY SERVICES - [facility] EOSINOPHILS 0 0 - 7 % [facility] BASOPHILS 0 0 - 2 % [facility] - . [facility] NEUTROPHIL ABSOLUTE 18.56(H) 1.90 - 7.00 K/uL [facility] . [facility] LYMPHOCYTE ABSOLUTE 0.60(L) 0.70 - 4.50 K/uL [facility] - . [facility] MONOCYTE ABSOLUTE 2.03(H) 0.10 - 1.30 K/uL [facility] . [facility] EOSINOPHIL ABSOLUTE 0.01 0.00 - 0.70 K/uL [facility] BASOPHILS ABSOLUTE 0.04 0.00 - 0.20 K/uL [facility] Blood specimen (specimen) 02/28/2012 4:35 AM CDT 02/28/2012 4:58 AM CDT Sierra Yin MD HEMATOLOGY ORDERABLE S [facility] CLIA# [id number] [address] [place] [address] * (ABNORMAL) POC GLUCOSE (02/28/2012 12:41 AM CDT) GLUCOSE POC 394(H) 65 - 99 mg/dL [facility] CLIA LICENSE [id number] [facility] Blood specimen (specimen) 02/28/2012 12:41 AM CDT 02/28/2012 12:41 AM CDT Sierra Yin MD POINT OF CARE TESTIN G [facility] [place] [facility] CLIA# [id number] [address] [place] [address] * (ABNORMAL) POC GLUCOSE (02/27/2012 5:37 PM CDT) GLUCOSE POC 221(H) 65 - 99 mg/dL [facility] LAB[facility]AT[facility] CLIA LICENSE [id number] [facility] Blood specimen (specimen) 02/27/2012 5:37 PM CDT 02/27/2012 5:37 PM CDT Sierra Yin MD POINT OF CARE TESTELIE Barron Performing Organization Address [facility]/ZIP Co de Phone Number [facility] CLIA# [id number] [address] [place] [address] * (ABNORMAL) POC GLUCOSE (02/27/2012 1:46 PM CDT) [facility] GLUCOSE POC 286(H) 65 - 99 mg/dL [facility] CLIA LICENSE [id number] [facility] Blood specimen (specimen) 02/27/2012 1:46 PM CDT 02/27/2012 1:46 PM CDT Sierra Yin MD POINT OF CARE DICK Barron Performing Organization Address [facility] Co de Phone Number [facility] LABORATORY SERVICES [facility]# [id number] [address] [place] [address] * (ABNORMAL) COMPREHENSIVE METABOLIC PANEL (02/27/2012 6:05 AM CDT) Pathologist [facility] SODIUM 131(L) 135 - 145 mmol/L [facility] POTASSIUM 3.9 3.5 - 4.9 mmol/L [facility]ATORY SERVICES [facility] CHLORIDE 93(L) 96 - 108 mmol/L [facility] CO2 25 22 - 30 mmol/L [facility] CALCIUM 8.7 8.6 - 10.2 mg/dL [facility] SERVICES [facility] BUN 15 6 - 20 mg/dL [facility] CREATININE 0.87 0.67 - 1.17 mg/dL [facility] GLUCOSE 203(H) 65 - 99 mg/dL [facility] TOTAL PROTEIN 6.9 6.3 - 8.6 g/dL [facility] ALBUMIN 3.1(L) 3.4 - 4.8 g/dL [facility] LABORATORY [facility] BILIRUBIN TOTAL 0.3 0.2 - 1.0 mg/dL [facility] ALKALINE PHOSPHATASE 214(H) 40 - 129 U/L [facility] AST 31 12 - 38 U/L [facility] ALT 55(H) 0 - 41 U/L [facility] GFR, >60 >=60 mL/min/1. 7 sq meter [facility]AT[facility] GFR >60 >=60 mL/min/1. 7 sq meter [facility] Comment: GFR is calculated using the IDMS-Traceable Modification of Diet in Renal Disease (MDRD) Study formula and is only valid for patients 18 years or older. Further interpretative information is available in the Laboratory Services Policy Manual on the [facility] Intranet at: [email or web address]://[facility] state hospitalintranet.[facility]/ Blood specimen (specimen) 02/27/2012 6:05 AM CDT 02/27/2012 6:12 AM CDT Katie Ryan MD CHEMISTRY ORDERABLES Performing Organization Address [facility] Co de Phone Number [facility] CLIA# [id number] [address] [place] [address] * (ABNORMAL) C-REACTIVE PROTEIN (02/27/2012 6:05 AM CDT) Pathologist [facility] CRP 13.2(H) 0.0 - 0.8 mg/dL [facility] Blood specimen (specimen) 02/27/2012 6:05 AM CDT 02/27/2012 6:12 AM CDT Katie Ryan MD CHEMISTRY ORDERABLES Performing Organization Address [facility] Co de Phone Number [facility] CLIA# [id number] [address] [place] [address] * PHOSPHORUS (02/27/2012 6:05 AM CDT) PHOSPHORUS 4.5 2.5 - 4.5 mg/dL [facility] LAB[facility]ATORY [facility] Blood specimen (specimen) 02/27/2012 6:05 AM CDT 02/27/2012 6:12 AM CDT Sierra Yin MD CHEMISTRY ORDERABLES Performing Organization Address [facility]/ZIP Co de Phone Number [facility] CLIA# [id number] [address] [place] [address] * MAGNESIUM LEVEL (02/27/2012 6:05 AM CDT) Pathologist [facility] MAGNESIUM 2.5 1.5 - 2.5 mg/dL [facility] Blood specimen (specimen) 02/27/2012 6:05 AM CDT 02/27/2012 6:12 AM CDT Sierra Yin MD CHEMISTRY ORDERABLES Performing Organization Address [facility] Co de Phone Number [facility] [place] [facility] CLIA# [id number] [address] [place] [address] * (ABNORMAL) C-REACTIVE PROTEIN (02/26/2012 6:20 AM CDT) Pathologist [facility] CRP 18.0(H) 0.0 - 0.8 mg/dL [facility] Blood specimen (specimen) 02/26/2012 6:20 AM CDT 02/26/2012 6:32 AM CDT Katie Ryan MD CHEMISTRY ORDERABLES Performing Organization Address [facility] Co de Phone Number [facility] CLIA# [id number] [address] [place] [place], [place] [address] * (ABNORMAL) CBC WITH DIFFERENTIAL (02/26/2012 6:20 AM CDT) Pathologist [facility] WBC 20.5(H) 4.0 - 9.8 K/uL [facility] LABORATORY [facility] RBC 3.99(L) 4.50 - 5.40 M/uL [facility] LABORATORY SERVICES - [facility] HEMOGLOBIN 11.4(L) 13.6 - 16.5 g/dL [facility] LABORATORY SERVICES - [facility] HEMATOCRIT 34.4(L) 40.0 - 48.0 % [facility] MCV 86.2 82.0 - 99.0 fL [facility] LABORATORY SERVICES - [facility] MCH 28.6 27.2 - 32.6 pg [facility]ATORY SERVICES - [facility] MCHC 33.1 31.5 - 35.5 % [facility] RDW 13.4 11.5 - 14.5 % [facility] LABORATORY SERVICES - [facility] RDW-STDEV 42.5 37.1 - 48.7 fL [facility] LABORATORY SERVICES - [facility] NEUTROPHILS, SEG 89(H) 45 - 70 % [facility] LABORATORY SERVICES - [facility] BANDS 8(H) 0 - 5 % [facility] - [facility] LYMPHOCYTES 1(L) 16 - 45 % [facility] LABORATORY SERVICES - [facility] MONOCYTES 1(L) 3 - 13 % [facility] LABORATORY SERVICES - [facility] EOSINOPHILS 0 0 - 7 % [facility] BASOPHILS 0 0 - 2 % [facility] MYELOCYTES 1(H) <=0 % [facility] PLATELET EST. Consistent w/ count Normal [facility] LABORATORY SERVICES [facility] NEUTROPHIL ABSOLUTE 19.88(H) 1.90 - 7.00 K/uL [facility] LABORATORY SERVICES - [facility] LYMPHOCYTE ABSOLUTE 0.20(L) 0.70 - 4.50 K/uL [facility] MONOCYTE ABSOLUTE 0.20 0.10 - 1.30 K/uL [facility] - [facility] EOSINOPHIL ABSOLUTE 0.00 0.00 - 0.70 K/uL [facility] BASOPHILS ABSOLUTE 0.00 0.00 - 0.20 K/uL [facility] ANISOCYTOSIS Slight [facility] POIKILOCYTES Slight [facility] REVIEWED ON SMEAR WBC & Plt Reviewed [facility] LABORATORY SERVICES - [facility] PLATELETS 319 140 - 350 K/uL [facility] Comment:WBC and Platelets ve rified by smear review. MPV 9.5 9.3 - 12.4 fL [facility] Blood specimen (specimen) 02/26/2012 6:20 AM CDT 02/26/2012 6:32 AM CDT Katie Ryan MD HEMATOLOGY ORDERABLE S [facility] CLIA# [id number] [address] [place], [place] [address] * SKIN TEST TB (02/26/2012) PPD REACTION [...] CDT) WBC 18.5(H) 4.0 - 9.8 K/uL [employer] LABORATORY SERVICES [facility] RBC 4.20(L) 4.50 - 5.40 M/uL [facility] HEMOGLOBIN 12.3(L) 13.6 - 16.5 g/dL [employer] LABORATORY SERVICES [facility] HEMATOCRIT 36.6(L) 40.0 - 48.0 % [facility] MCV 87.1 82.0 - 99.0 fL [facility] MCH 29.3 27.2 - 32.6 pg [facility] MCHC 33.6 31.5 - 35.5 % [facility] PLATELETS 316 140 - 350 K/uL [facility] MPV 9.5 9.3 - 12.4 fL [facility] RDW 13.5 11.5 - 14.5 % [facility] RDW-STDEV 43.1 37.1 - 48.7 fL [facility] NEUTROPHILS 87(H) 45 - 70 % [facility] LYMPHOCYTES 2(L) 16 - 45 % [facility] MONOCYTES 10 3 - 13 % [facility] EOSINOPHILS 0 0 - 7 % [facility] BASOPHILS 0 0 - 2 % [facility] NEUTROPHIL ABSOLUTE 16.08(H) 1.90 - 7.00 K/uL [facility] LYMPHOCYTE ABSOLUTE 0.47(L) 0.70 - 4.50 K/uL [facility] MONOCYTE ABSOLUTE 1.88(H) 0.10 - 1.30 K/uL [facility] EOSINOPHIL ABSOLUTE 0.00 0.00 - 0.70 K/uL [facility] BASOPHILS ABSOLUTE 0.03 0.00 - 0.20 K/uL [facility] Blood specimen (specimen) 02/25/2012 6:10 AM CDT 02/25/2012 6:41 AM CDT Sierra Yin MD HEMATOLOGY ORDERABLE S [facility] CLIA# [id number] [place] [id number] * (ABNORMAL) COMPREHENSIVE METABOLIC PANEL (02/25/2012 6:10 AM CDT) SODIUM 130(L) 135 - 145 mmol/L [facility] [facility] POTASSIUM 4.4 3.5 - 4.9 mmol/L [facility] [facility] CHLORIDE 95(L) 96 - 108 mmol/L [facility] [facility] CO2 24 22 - 30 mmol/L [facility] [facility] CALCIUM 9.2 8.6 - 10.2 mg/dL [facility] [facility] BUN 8 6 - 20 mg/dL [employer] [facility] CREATININE 0.85 0.67 - 1.17 mg/dL [employer] [facility] GLUCOSE 118(H) 65 - 99 mg/dL [facility] TOTAL PROTEIN 6.7 6.3 - 8.6 g/dL [employer] [facility] ALBUMIN 3.2(L) 3.4 - 4.8 g/dL [facility] BILIRUBIN TOTAL 0.5 0.2 - 1.0 mg/dL [facility] ALKALINE PHOSPHATASE 78 40 - 129 U/L [facility] [employer] [facility] AST 14 12 - 38 U/L [employer] [facility] [employer] [facility] ALT 16 0 - 41 U/L [facility] GFR, >60 >=60 mL/min/1. 7 sq meter [facility] GFR >60 >=60 mL/min/1. 7 sq meter [facility] Comment: GFR is calculated using the IDMS-Traceable Modification of Diet in Renal Disease (MDRD) Study formula and is only valid for patients 18 years or older. Further interpretative information is available in the Laboratory Services Policy Manual on the [facility] Intranet at: http://[facility]-Swrveet.[facility]/ Blood specimen (specimen) 02/25/2012 6:10 AM CDT 02/25/2012 6:41 AM CDT Sierra Yin MD CHEMISTRY ORDERABLES [facility]# [id number] [address] [place] [place] [address] * XR CHEST PA OR AP (02/24/2012 [...] Ht: 5'9 Wt: 166# Br: 20 BM: 54 Skin: intact Labs:Na 128, gluc 114 Diet: [...] skin 2.f/u q4days/PRN Procedure Note Naomie Blum, TONIE - 02/24/2012 12:24 PM CDT Nutrition Consult:assessment A: Ht: 5'9 Wt: 166# Br: 20 BM: 5 Skin: intact Labs:Na 128, gluc 114 Diet: [...] CDT) PREALBUMIN 14(L) 20 - 40 mg/dL [facility] Blood specimen (specimen) 02/24/2012 4:40 AM CDT 02/24/2012 11:24 AM CDT Narrative [facility] - 02/24/2012 11:36 AM CDT Blood in lab Sierra Yin MD CHEMISTRY ORDERABLES Performing Organization Address City/[facility]/ZIP Co de Phone Number [facility]# [id number] [address] [facility] [place] [address] * TSH REFLEXIVE (02/24/2012 4:40 AM CDT) TSH 0.30 0.27 - 4.20 uU/mL [facility] Blood specimen (specimen) 02/24/2012 4:40 AM CDT 02/24/2012 9:18 AM CDT Sierra Yin MD CHEMISTRY ORDERABLES Performing Organization Address City/[facility]/ZIP Co de Phone Number [facility] CLIA# [id number] [address] [facility] [place] [address] * (ABNORMAL) CBC WITH DIFFERENTIAL (02/24/2012 4:40 AM CDT) WBC 10.6(H) 4.0 - 9.8 K/uL [facility] RBC 4.60 4.50 - 5.40 M/uL [facility] HEMOGLOBIN 13.2(L) 13.6 - 16.5 g/dL [facility] HEMATOCRIT 40.0 40.0 - 48.0 % [facility] MCV 87.0 82.0 - 99.0 fL [facility] MCH 28.7 27.2 - 32.6 pg [facility] MCHC 33.0 31.5 - 35.5 % [facility] PLATELETS 370(H) 140 - 350 K/uL [facility] MPV 9.8 9.3 - 12.4 fL [facility] RDW 13.3 11.5 - 14.5 % [facility] RDW-STDEV 42.5 37.1 - 48.7 fL [facility] NEUTROPHILS 84(H) 45 - 70 % [facility] LYMPHOCYTES 4(L) 16 - 45 % [facility] MONOCYTES 11 3 - 13 % [facility] EOSINOPHILS 0 0 - 7 % [facility] BASOPHILS 0 0 - 2 % [facility] NEUTROPHIL ABSOLUTE 8.90(H) 1.90 - 7.00 K/uL [facility] LYMPHOCYTE ABSOLUTE 0.48(L) 0.70 - 4.50 K/uL [facility] MONOCYTE ABSOLUTE 1.17 0.10 - 1.30 K/uL [facility] EOSINOPHIL ABSOLUTE 0.05 0.00 - 0.70 K/uL [facility] BASOPHILS ABSOLUTE 0.02 0.00 - 0.20 K/uL [facility] Blood specimen (specimen) 02/24/2012 4:40 AM CDT 02/24/2012 5:12 AM CDT Sierra Yin MD HEMATOLOGY ORDERABLE S [facility] CLIA# [id number] [address] [place], [place] [address] * (ABNORMAL) INFLAMMATORY BOWEL DISEASE PANEL (02/24/2012 4:40 AM CDT) IBD PANEL INTEPRETATION Pattern Consistent with IBD: Ulcerative Colitis [facility] Comment: Patient test results are based on the Smart Diagnostic Algorithm which interprets complex patterns among assay values from a combination of serologic, genetic, and inflammatory markers. ?? This test was developed and its performance characteristics determined by [employer]. ??It has not been cleared or approved by the U.S. Food and Drug Administration. ?? Test performed by [facility] [employer], [address] [place] [address], [place] [address] SACCHAROMYCES CEREVISIAE IGA <3.1 <=8.4 EU/mL [facility] SACCHAROMYCES CEREVISIAE IGG <3.1 <=17.7 EU/mL [facility] IBD OMPC AB <3.1 <=10.8 EU/mL [facility] IBD CBIR1 AB 19.8 <=78.3 EU/mL [facility] [id number] IgG 12.8 <=44.7 EU/mL [facility] Anti-FlaX IgG 16.9 <=33.3 EU/mL [facility] IBD PANCA AUTO AB 76.7(H) <=19.7 EU/mL [facility] IBD PANCA PERINUCLEAR PATTERN Detected(A) Not Detected [facility] IBD PANCA DNASE SENSITIVITY DNAse Sensitive(A) Not Detected [facility] [id number] Heterozygous A/G(A) No Mutation Detected [facility] Comment:Tested SNP location is [id number] No Mutation Detected No Mutation Detected [facility] Comment:Tested SNP location is [id number] No Mutation Detected No Mutation Detected [facility] Comment:Tested SNP location is [id number] Mutation Detected Mutation Detected [facility] Comment:Tested SNP location is [id number] ICAM-1 0.73(H) <=0.53 ug/mL [facility] VCAM-1 0.92(H) <=0.67 ug/mL [facility] . [facility] VEGF 1354(H) <=344 pg/mL [facility] - . [facility] CRP, Ref Lab 168.4(H) <=13.1 mg/L [facility] - . [facility] ROBERT >181.6(H) <=10.8 mg/L [facility] - . [facility] Blood specimen (specimen) 02/24/2012 4:40 AM CDT 02/24/2012 5:12 AM CDT Sierra Yin MD CHEMISTRY ORDERABLES Performing Organization Address City/[facility] Co de Phone Number [facility] SERVICES - [facility] CLIA# [id number] [address] [facility] [place] [address] * (ABNORMAL) C-REACTIVE PROTEIN (02/24/2012 4:40 AM CDT) CRP 16.3(H) 0.0 - 0.8 mg/dL [facility] Blood specimen (specimen) 02/24/2012 4:40 AM CDT 02/24/2012 5:12 AM CDT Sierra Yin MD CHEMISTRY ORDERABLES Performing Organization Address City/[facility]/ZIP Co de Phone Number [facility] SERVICES - [facility]# [id number] [address] [facility] [place] [address] * (ABNORMAL) BASIC METABOLIC PANEL (02/24/2012 4:40 AM CDT) SODIUM 128(L) 135 - 145 mmol/L [facility] POTASSIUM 4.8 3.5 - 4.9 mmol/L [facility] - . [facility] CHLORIDE 96 96 - 108 mmol/L [facility] CO2 26 22 - 30 mmol/L [facility] CALCIUM 8.6 8.6 - 10.2 mg/dL [facility] BUN 12 6 - 20 mg/dL [facility] CREATININE 0.94 0.67 - 1.17 mg/dL [facility] GLUCOSE 114(H) 65 - 99 mg/dL [facility] GFR, >60 >=60 mL/min/1. 7 sq meter [facility] GFR >60 >=60 mL/min/1. 7 sq meter [facility] Comment: GFR is calculated using the IDMS-Traceable Modification of Diet in Renal Disease (MDRD) Study formula and is only valid for patients 18 years or older. Further interpretative information is available in the Laboratory Services Policy Manual on the [facility] Intranet at: http://[facility] hospitalRenaissance Learningintranet.[facility] health centerCompufirstacmc healthcare system.[facility]/ Blood specimen (specimen) 02/24/2012 4:40 AM CDT 02/24/2012 5:12 AM CDT Sierra Yin MD CHEMISTRY ORDERABLES [facility]# [id number] [address] [facility] [place] [address] * IP CONSULT TO GI (02/23/2012 9:34 PM CDT) Narrative [facility] - 02/23/2012 9:34 PM CDT Trevor Toledo MD ? 02/23/2012 ??5:47 PM Admit Date: 02/22/2012 Hospital day: ??LOS: 1 day Physician requesting Consult: Reason for consult: Pouchitis. KAW Patient: Mukul Huber is a 41 yo [...] and he seen in the ED at [facility] where he was treated for dehydration and was sent home with pain killers and a PPI. ??After going home he began having ?? subjective fevers, chills. He denies any sick contacts. He does report some blood in his stool every time he stools now. He reports that his frequency of stools has also increased. ??He was seen in [facility] Ed where he had a CT [...] 12/08/2009 ??COLONOSCOPY performed by WILLIAN SOTELO at [facility] GI LAB ? ? Pr sigmoidoscopy,diagnostic 02/16/2012 ??SIGMOIDOSCOPY FLEXIBLE performed by Willian Sotelo MD at [facility] GI [facility] ? ? Pr endoscopy of bowel pouch 02/16/2012 ??POUCHOSCOPY performed by Willian Sotelo MD at [facility] GI LAB Family History Problem Relation Age [...] Ryan. Tiburcio Toledo MD Internal Medicine R2 ([facility]) [phone] Sierra Yin MD INPATIENT CONSULT OR DERABLES [facility] * CORTISOL LEVEL (02/23/2012 8:28 AM CDT) CORTISOL LEVEL 43.0 ug/dL [facility] Comment: Cortisol Reference Range: 7 - 10 AM: ?? 6.2 - 19.4 ug/dL 4 - ??8 PM: ?? 2.3 - 11.9 ug/dL Blood specimen (specimen) 02/23/2012 8:28 AM CDT 02/23/2012 8:54 AM CDT Richelle Gambino MD CHEMISTRY ORDERABLES [facility] CLIA# [id number] [address] [place] [address] * (ABNORMAL) C-REACTIVE PROTEIN (02/23/2012 7:50 AM CDT) CRP 21.7(H) 0.0 - 0.8 mg/dL [facility] Blood specimen (specimen) 02/23/2012 7:50 AM CDT 02/23/2012 8:33 AM CDT Sierra Yin MD CHEMISTRY ORDERABLES Performing Organization Address [facility] de Phone Number [facility] CLIA# [id number] [address] [place] [address] * LACTIC ACID (02/23/2012 7:10 AM CDT) Pathologist [facility] LACTIC ACID 0.9 0.5 - 2.2 mmol/L [facility] Blood specimen (specimen) 02/23/2012 7:10 AM CDT 02/23/2012 7:21 AM CDT Richelle Gambino MD CHEMISTRY ORDERABLES Performing Organization Address [facility] de Phone Number [facility]# [id number] [address] [place] [address] * (ABNORMAL) BASIC METABOLIC PANEL (02/23/2012 7:10 AM CDT) Pathologist [facility] SODIUM 126(L) 135 - 145 mmol/L [facility] POTASSIUM 4.3 3.5 - 4.9 mmol/L [facility] CHLORIDE 95(L) 96 - 108 mmol/L [facility] CO2 18(L) 22 - 30 mmol/L [facility] CALCIUM 9.1 8.6 - 10.2 mg/dL [facility] BUN 17 6 - 20 mg/dL [facility] CREATININE 1.06 0.67 - 1.17 mg/dL [facility] GLUCOSE 104(H) 65 - 99 mg/dL [facility] GFR, >60 >=60 mL/min/1. 7 sq meter [facility] GFR >60 >=60 mL/min/1. 7 sq meter [facility] Comment: GFR is calculated using the IDMS-Traceable Modification of Diet in Renal Disease (MDRD) Study formula and is only valid for patients 18 years or older. Further interpretative information is available in the Laboratory Services Policy Manual on the [facility] Intranet at: http://[facility] massachusetts hospitalMetrasenset.[facility]ian health centerCompufirstacmc healthcare system.[facility]/ Blood specimen (specimen) 02/23/2012 7:10 AM CDT 02/23/2012 7:21 AM CDT Richelle Gambino MD CHEMISTRY ORDERABLES [facility] SERVICES [facility] CLIA# [id number] [address] [address] [place] [address] * (ABNORMAL) CBC WITH DIFFERENTIAL (02/23/2012 7:10 AM CDT) WBC 12.1(H) 4.0 - 9.8 K/uL [facility] RBC 4.98 4.50 - 5.40 M/uL [facility] HEMOGLOBIN 14.6 13.6 - 16.5 g/dL [facility] HEMATOCRIT 42.8 40.0 - 48.0 % [facility] MCV 85.9 82.0 - 99.0 fL [facility] MCH 29.3 27.2 - 32.6 pg [facility] MCHC 34.1 31.5 - 35.5 % [facility] PLATELETS 370(H) 140 - 350 K/uL [facility] MPV 9.8 9.3 - 12.4 fL [facility] RDW 13.3 11.5 - 14.5 % [facility] RDW-STDEV 41.5 37.1 - 48.7 fL [facility] NEUTROPHILS, SEG 34(L) 45 - 70 % [facility] - . [facility] BANDS 33(H) 0 - 5 % [facility] - . [facility] LYMPHOCYTES 13(L) 16 - 45 % [facility] - . [facility] MONOCYTES 14(H) 3 - 13 % [facility] EOSINOPHILS 2 0 - 7 % [facility] - [facility] BASOPHILS 0 0 - 2 % [facility] . [facility] METAMYELOCYTE 4(H) <=0 % [facility] PLATELET EST. Consistent w/ count Normal [facility] NEUTROPHIL ABSOLUTE 8.11(H) 1.90 - 7.00 K/uL [facility] LYMPHOCYTE ABSOLUTE 1.57 0.70 - 4.50 K/uL [facility] - . [facility] MONOCYTE ABSOLUTE 1.69(H) 0.10 - 1.30 K/uL [facility] EOSINOPHIL ABSOLUTE 0.24 0.00 - 0.70 K/uL [facility] - . [facility] BASOPHILS ABSOLUTE 0.00 0.00 - 0.20 K/uL [facility] - . [facility] RBC MORPHOLOGY Normal Normal [facility] Blood specimen (specimen) 02/23/2012 7:10 AM CDT 02/23/2012 7:21 AM CDT Richelle Gambino MD HEMATOLOGY ORDERABLE S Performing Organization Address City/[facility]/ZIP Co de Phone Number [facility] CLIA# [id number] [address] [place] [address] * URINE CULTURE (02/23/2012 3:46 AM CDT) FINAL MICRO REPORT No growth 24 hours [facility] 02/23/2012 3:46 AM CDT 02/23/2012 4:46 AM CDT Comment:URINE VOIDED Richelle Gambino MD MICROBIOLOGY - GENER AL ORDERABLES [facility] CLIA# [id number] [address] [place] [address] * (ABNORMAL) URINALYSIS (02/23/2012 3:46 AM CDT) COLOR UA Yellow [facility] CLARITY UA Clear Clear [facility] SPECIFIC GRAVITY UA 1.060(H) 1.001 - 1.035 [facility] Comment: Quantitated by dilution. Results confirmed by 2nd methodology. PH UA 6.5 5.0 - 8.0 [facility] LAB[facility]AT[facility] LEUKOCYTE ESTERASE UA Negative Negative [facility] NITRITE UA Negative Negative [facility] PROTEIN UA 1+(A) Negative [facility] GLUCOSE UA Negative Negative [facility] KETONES UA 2+(A) Negative [facility] UROBILINOGEN UA <1 <=1 mg/dL [facility]AT[facility] SERVICES [facility] BILIRUBIN UA Negative Negative [facility] BLOOD UA Trace(A) Negative [facility] WBC UA 1 0 - 3 /HPF [facility] RBC UA 4(H) 0 - 3 /HPF [facility]ORY [facility] HYALINE CAST 27(H) 0 - 2 /LPF [facility] 02/23/2012 3:46 AM CDT 02/23/2012 4:26 AM CDT Comment:URINE VOIDED Richelle Gambino MD URINE ORDERABLES [facility]# [id number] [address] [place] [address] * URINALYSIS WITH REFLEX CULTURE (02/23/2012 3:46 AM CDT) Pathologist [facility] URINE CULTURE ORDER Culture ordered [facility] Comment: Criteria for a reflex culture [...] Gambino MD URINE ORDERABLES Performing Organization Address [facility] de Phone Number [facility] [id number] [address] [place] [address] * CLOSTRIDIUM DIFFICILE TOXIN (02/23/2012 3:42 AM CDT) C DIFF TOXIN PCR RESULT Negative Negative [facility] C DIFF TOXIN PCR SOURCE Stool [facility] Stool specimen (specimen) 02/23/2012 3:42 AM CDT 02/23/2012 4:26 AM CDT Comment:STOOL Richelle Gambino MD MICROBIOLOGY - [facility] AL ORDERABLES Performing Organization Address [facility] Phone Number [facility] LAB[facility]AT[facility]# [id number] [address] [facility] [place] [address] * (ABNORMAL) STOOL CULTURE (02/23/2012 3:42 AM CDT) E. COLI SHIGA TOXIN REPORT Negative E. coli Shiga toxin 1 by ICT assay. Negative E. coli Shiga toxin 2 by ICT assay. --Note: ??A negative does not rule out infection with enterohemorrhagic E. coli.(A) [facility]AT[facility] FINAL MICRO REPORT Heavy growth Escherichia coli No Salmonella isolated. No Shigella isolated. No Escherichia coli serogroup O157:H7 isolated. No Campylobacter isolated.(A) [facility] SUSCEPTIBILITY PERFORMED ON ESCHERICHIA COLI(A) [facility] Stool specimen (specimen) 02/23/2012 3:42 AM [...] <=20: Susceptible Richelle Gambino MD MICROBIOLOGY - GENER AL ORDERABLES Performing Organization Address [facility] de Phone Number [facility]# [id number] [address] [facility] [place] [address] * INFLUENZA VIRUS A AND B ANTIGEN (02/23/2012 3:02 AM CDT) FINAL MICRO REPORT Influenza A Antigen: Negative by ICT assay. Influenza B Antigen: Negative by ICT assay. -- Note: ??A negative does not rule out infection. [facility] Specimen from respiratory system (specimen) NASOPHARYNGEAL SWAB / Unknown 02/23/2012 3:02 AM CDT 02/23/2012 3:12 AM CDT Comment:NASOPHARYNGEAL Richelle Gambino MD MICROBIOLOGY - GENER AL ORDERABLES Performing Organization Address [facility] de Phone Number [facility]# [id number] [address] [facility] [place] [address] * XR CHEST PA OR AP (02/23/2012 [...] clear. Bony structures appear normal. Procedure Note Emily Jacome MD - 02/23/2012 PORTABLE CHEST 02/23/2012 2:05 [...] - 9.8 K/uL [facility] RBC 5.08 4.50 - 5.40 M/uL [facility] HEMOGLOBIN 14.9 13.6 - 16.5 g/dL [facility] HEMATOCRIT 43.3 40.0 - 48.0 % [facility] MCV 85.2 82.0 - 99.0 fL [facility] MCH 29.3 27.2 - 32.6 pg [facility] MCHC 34.4 31.5 - 35.5 % [facility] PLATELETS 343 140 - 350 K/uL [facility] MPV 9.8 9.3 - 12.4 fL [facility] RDW 12.9 11.5 - 14.5 % [facility] RDW-STDEV 40.4 37.1 - 48.7 fL [facility] NEUTROPHILS 79(H) 45 - 70 % [facility] LYMPHOCYTES 10(L) 16 - 45 % [facility] MONOCYTES 10 3 - 13 % [facility] EOSINOPHILS 0 0 - 7 % [facility] BASOPHILS 0 0 - 2 % [facility] NEUTROPHIL ABSOLUTE 10.89(H) 1.90 - 7.00 K/uL [facility] LYMPHOCYTE ABSOLUTE 1.38 0.70 - 4.50 K/uL [facility] MONOCYTE ABSOLUTE 1.37(H) 0.10 - 1.30 K/uL [facility] EOSINOPHIL ABSOLUTE 0.06 0.00 - 0.70 K/uL [facility] [facility] BASOPHILS ABSOLUTE 0.04 0.00 - 0.20 K/uL [facility] Blood specimen (specimen) 02/22/2012 7:57 PM CDT 02/22/2012 7:57 PM CDT Reji Noel MD HEMATOLOGY OR DERABLES Performing Organization Address [facility]/ZIP Co de Phone Number [facility] CLIA# [id number] [address] [facility] [facility] [place] [address] * LIPASE (02/22/2012 7:24 PM CDT) Pathologist [facility] LIPASE 40 13 - 60 U/L [facility] Blood specimen (specimen) 02/22/2012 7:24 PM CDT 02/22/2012 7:33 PM CDT Reji Noel MD CHEMISTRY ORD ERABLES Performing Organization Address [facility] Co de Phone Number [facility] CLIA# [id number] [address] [facility] [place] [address] * (ABNORMAL) COMPREHENSIVE METABOLIC PANEL (02/22/2012 7:24 PM CDT) SODIUM 126(L) 135 - 145 mmol/L [facility] POTASSIUM 5.3(H) 3.5 - 4.9 mmol/L [facility] Comment: Moderate hemolysis present. Can cause significant falsely elevated result. Clinical judgement necessary. Redraw if indicated. CHLORIDE 92(L) 96 - 108 mmol/L [facility] CO2 18(L) 22 - 30 mmol/L [facility] CALCIUM 10.2 8.6 - 10.2 mg/dL [facility] BUN 18 6 - 20 mg/dL [facility] CREATININE 1.23(H) 0.67 - 1.17 mg/dL [facility] GLUCOSE 123(H) 65 - 99 mg/dL [facility] TOTAL PROTEIN 8.5 6.3 - 8.6 g/dL [facility] ALBUMIN 4.2 3.4 - 4.8 g/dL [facility] BILIRUBIN TOTAL 0.7 0.2 - 1.0 mg/dL [facility] ALKALINE PHOSPHATASE 100 40 - 129 U/L [facility] AST 24 12 - 38 U/L [facility] Comment:Hemolyzed: Result ma y be falsely elevated. ALT 35 0 - 41 U/L [facility] GFR, >60 >=60 mL/min/1. 7 sq meter [facility] GFR >60 >=60 mL/min/1. 7 sq meter [facility] Comment: GFR is calculated using the IDMS-Traceable Modification of Diet in Renal Disease (MDRD) Study formula and is only valid for patients 18 years or older. Further interpretative information is available in the Laboratory Services Policy Manual on the [facility] Intranet at: http://western massachusetts hospitalMetrasenset.[facility] health centerCompufirstacmc healthcare system.[facility]/ Blood specimen (specimen) 02/22/2012 7:24 PM CDT 02/22/2012 7:33 PM CDT Reji Noel MD CHEMISTRY ORD ERABLES [facility]# [id number] [address] [place] [address] documented in this encounter Visit Diagnoses Not on filedocumented in this encounter Active and Recently Administered [...] Cullen, JIE)1742 (Given - Provider: Ada Cullen RN)1800 (Canceled Entry - Provider: Ada Cullen RN)2345 (Given - Provider: Rachell Waterman RN) 0551 (Given - Provider: Rachell Waterman RN)0802 (Given - Provider: Ashanti Carter Student Nurse)1300 (Refused - Provider: Ashanti Carter [...] (Canceled Entry - Provider: Riya Flowers RN) inFLIXimab (REMICADE) 376.5 mg in sodium chloride 0.9 % 250 mL IVPB (COMPLETED) 376.5 mg (5 mg/kg ? 75.3 kg), IV, ONE TIME ONLY, 1 dose, On Rach 03/01/12 at 1730, Stat 1816 (Given - Provider: Ada Cullen, JIE) insulin aspart (NOVOLOG) 100 unit/mL variable dose (CANCELED) subCUT, EVERY 6 HOURS, First dose on Mon02/28/12 at 1200, Until Discontinued, Routine 0011 (Given - Provider: Rachell Waterman RN - Comment: [phone] (Given - Provider: Rachell Bejarano V RN - Comment: 229)1214 (Given - Provider: Ada Cullen RN)1742 (Given - Provider: Ada Cullen RN - Comment: bs 298)2348 (Given - Provider: Rachell Waterman RN - Comment: 256) 0601 (Given - Provider: Rachell Waterman RN - Comment: 160)1224 (Given - Provider: [...] glucose 129) 0700 (Refused - Provider: Germania Farmer RN) insulin glargine (LANTUS) 100 unit/mL injection 15 [...] Routine 0851 (Given - Provider: Ada Cullen RN - Comment: stopped at 0951) 0801 (Given - Provider: Ashanti Carter, Student Nurse) mesalamine (ASACOL) tablet 800 mg (CANCELED) 800 mg, Oral, THREE TIMES DAILY, First dose on Mon02/23/12 at 0900, Until Discontinued, Routine 0851 (Given - Provider: Ada Cullen RN)1214 (Given - Provider: Ada Cullen RN)1703 (Given - Provider: Ada Cullen RN) 0801 (Given - Provider: Ashanti Carter, Student Nurse)1213 (Given - Provider: Ashanti Carter Student Nurse) methylPREDNISolone sodium succinate (SOLU-MEDROL) injection 20 mg (CANCELED) 20 mg, IV, EVERY 8 HOURS, First dose on Mon02/24/12 at 0845, Until Discontinued, Routine 0555 (Given - Provider: Rachell Waterman RN)1214 (Given - Provider: Ada Cullen RN)213 (Given - Provider: Rachell Waterman RN) 0552 (Given - Provider: Rachell Waterman RN)1215 (Given - Provider: Ashanti Carter Student Nurse) metroNIDAZOLE (FLAGYL) IVPB 500 mg (CANCELED) 500 mg, IV, EVERY 8 HOURS, First dose on Mon02/23/12 at 0500, Until Discontinued, Routine 0555 (Given - Provider: Rachell Waterman RN)1214 (Given - Provider: Ada Cullen RN - Comment: stopped at 1314)213 (Given - Provider: Rachell Waterman RN) 0552 (Given - Provider: Rachell Waterman RN)1213 (Given - Provider: Fernanda Martin Nurse) pantoprazole (PROTONIX) tablet 40 mg 40 [...] Discontinued, Routine 0843 (Given - Provider: Germania Farmer, JIE) saccharomyces boulardii (FLORASTOR) capsule 250 mg (CANCELED) 250 mg, Oral, TWO TIMES DAILY, First dose on Mon02/24/12 at 0915, Until Discontinued, Routine 0851 (Given - Provider: Ada Cullen, JIE)2132 (Given - Provider: Rachell Waterman RN) 0801 (Given - Provider: Ashanti Carter, Student Nurse)2023 (Given - Provider: Riya Flowers, JIE) 0843 (Given - Provider: Germania Farmer, JIE) sodium chloride 0.9 % flush injection 10 [...] Rachell Waterman RN)1214 (Given - Provider: Ada Cullen, RN)1703 (Given - Provider: Ada Cullen, RN)2345 (Given - Provider: Rachell Bejarano V, JIE) 0553 (Given - Provider: Rachell Waterman RN)1214 (Given - Provider: Ashanti Carter, Student Nurse)1805 (Given - Provider: Ashanti Carter, Student Nurse) 0009 (Given - Provider: Carrie Alonzo, RN)0615 (Given - Provider: Carrie Alonzo, RN) Continuous Medication Order 03/01/2012 03/02/2012 03/03/2012 ADULT [...] Waterman RN)1022 (Rate Verify - Provider: Ada Cullen, JIE) ADULT TPN - CENTRAL (CANCELED) IV, CONTINUOUS, Starting on Rach 03/01/12 at 2000, Until 03/02/12 at 1428, Administer over 24 Hours 2152 (New Bag - Provider: Rachell Waterman RN) 1128 (Rate Verify - Provider: Ashanti Carter, Student Nurse) sodium chloride 0.9 % infusion [...] 0555 (Given - Provider: Rachell Bejarano V, JIE)1742 (Given - Provider: Ada Cullen, JIE)2133 (Given - Provider: Rachell Bejarano V, JIE) 0551 (Given - Provider: Rachell Bejarano V, RN)2023 (Given - Provider: Riya Flowers, JIE) 0011 (Given - Provider: Carrie Alonzo, JIE)0442 (Given - Provider: Carrie Alonzo, JIE)0842 (Given - Provider: Germania Farmer RN) hyoscyamine (LEVSIN) sublingual tablet 0.125 mg 0.125 mg, Sublingual, EVERY 4 HOURS PRN, Starting on 03/02/12 at 1724, Until 03/03/12 at 1216, Spasm, Routine No Frequency Medication Order 03/01/2012 03/02/2012 03/03/2012 [id number] TOP. PACKET (COMPLETED) 1 dose, Starting on 03/02/12 at 1754, Until 03/02/12 at 1756, [place] OMNICELL: cabinet override 1756 (Given - Provider: Ashanti Carter, Student Nurse - Comment: Picc Site) documented in this encounter Care Teams Claim Processor Relationship Specialty Start Date End Date Martin Kelley MD PCP - General Internal Medicine 02/16/12 08/14/17 documented as of this encounter
--- OUTSIDE RECORDS SUMMARY | 2024-10-24 06:43 | XMS_ITS | Encounter Summary ---
Author Organization [facility] Address [address] [place] [address] Care Team Providers Care Electrician Refinery Name Role Phone Unavailable Primary Care Provider Unavailabl e Encounter Details Date Type Department Care Team (Latest Contact Info) Description 12/08/2009 7:51 AM AIR ANALYST - 12/08/2009 11:35 PM AIR ANALYST Hospital Encounter [facility] [address] [place] [address] Louise Rizo MD NO ADDRESS [...] Comments Blood Pressure 125/71 12/08/2009 10:21 AM AIR ANALYST Pulse 88 12/08/2009 10:21 AM AIR ANALYST Temperature 36.6 ??C (97.9 ??F) 12/08/2009 10:[address] Respiratory Rate 18 12/08/2009 10:21 AM AIR ANALYST Oxygen Saturation 94% 12/08/2009 10:21 AM AIR ANALYST Inhaled Oxygen Concentration - - Weight 77.1 kg (170 lb) 12/04/2009 4:18 PM AIR ANALYST Height 175.3 cm (5' 9 ) 12/04/2009 4:18 PM AIR ANALYST Body Mass Index 25.1 12/04/2009 4:18 PM AIR ANALYST documented in this encounter Discharge Instructions * Discharge Instructions* Dayana Miranda RN - 12/08/2009 10:17 AM AIR ANALYST If you should experience: Severe abdominal pain, [...] call the physician who prescribed the medication. ANALYST documented in this encounter Medications at Time of Discharge Medication Sig Dispensed Refills Start Date End Date mesalamine (ASACOL) 400 mg Oral TbEC Take 400 mg by mouth 2 times daily. 03/03/2012 documented as of this encounter Procedure Notes * Louise Rizo MD - 12/08/2009 10:53 AM CSTAssociated Order(s): GI REPORT [place], [place] [address] Gastroenterology CSN: [id number] DATE OF SERVICE: 12/08/2009 PROCEDURE PERFORMED 1. [...] office again in a month. PLR:MEDQ DID: [id number] Dictated by: Louise Rizo MD cc: Osman Plata MD ANALYST documented in this encounter OR Notes * OR Anesthesia - Sherwin Medina - 12/13/2009 9:08 AM AIR ANALYST * Operative Report - Louise Rizo MD - 12/08/2009 10:01 AM CST Brief Postoperative Note Full note dict Mukul Elkins [id number] Pre-operative Diagnosis: ? pouchitis Post-operative Diagnosis: Same Procedure/Anesthesia: Procedure(s) and Anesthesia Type: * COLONOSCOPY - General Surgeons/Assistants: Surgeon(s) and Role: * Louise Rizo MD - Primary Specimens Removed: bx Estimated Blood Loss: Minimal Complications:none Louise Rizo MD ANALYST * Operative Report - Louise Rizo MD - 12/08/2009 10:00 AM CST Samples taken. Call my office within 5 days for results and further instructions. Biopsies taken. Call my office within 5 days for results and further instructions. ANALYST * OR Anesthesia - Alexis Holloway MD - 12/08/2009 9:26 AM CST Pre-Anesthesia Evaluation - Long Form 12/08/2009 9:27 AM Name: Mukul Elkins Age: 39 y.o. Sex: male CSN: [id number] Procedure: Procedure(s): COLONOSCOPY Surgeons/Assistants: Surgeon(s) and Role: [...] solicited and answered. Yes Alexis Holloway MD ANALYST documented in this encounter Miscellaneous Notes * Scanned Form - Stl Scanning, Provider - 12/13/2009 9:07 AM AIR ANALYST * Scanned Form - Stl Scanning, Provider - 12/13/2009 9:07 AM AIR ANALYST * Patient Instructions - Stl Scanning, Provider - 12/13/2009 8:54 AM AIR ANALYST documented in this encounter Plan of Treatment Upcoming Encounters Date Type Department Care Team (Late st Contact Info) Description 02/13/2025 10:30 AM CDT Office Visit [facility] [place] [address] [facility] [address] [place] [address] Kitty Dover, MIRTA [address] [facility] [address] [place] [address] documented as of this encounter Procedures Procedure Name Priority Date/Time Associated Diagnosis Comments PATHOLOGY Routine 12/08/2009 11:19 AM AIR ANALYST GI REPORT 12/08/2009 10:54 AM AIR ANALYST C. DIFFICILE DETECTION Routine 12/08/2009 10:15 AM AIR ANALYST STOOL CULTURE W/SHIGA TOXIN Routine 12/08/2009 10:15 AM AIR ANALYST COLONOSCOPY 12/08/2009 9:35 AM AIR ANALYST ABDOMINAL PAIN documented in this encounter Results * PATHOLOGY (12/08/2009 11:19 AM AIR ANALYST) SURGICAL PATHOLOGY ?[facility] ?[address] ? [place], [place] ??[address] ? Patient: ??MUKUL ELKINS S ? : ??1970 ? Procedure Date: ??12/08/2009 ? Accession Date: ??12/08/2009 ? Case No: ??[id number] ? Ordering Dr: ??LOUISE RIZO ? Case type SW is performed by [facility], [place], [place]; ? all other case types are performed by [facility], ? [place] ?SURGICAL PATHOLOGY & NON-GYNECOLOGIC CYTOPATHOLOGY [...] ? Microscopic: ? The slides are labeled [id number] and Mukul Elkins. ? Both biopsies display [...] FOR LUIS EVANS M.D.- 12/09/09 10:08 pm [facility] 12/08/2009 11:1 9 AM AIR ANALYST Louise Rizo MD PATHOLOGY/CYTOLOGY O RDERABLES Performing Organization Address City/State/[facility] Co de Phone Number [facility] CLIA# [id number] [address] [place] [address] * GI REPORT (12/08/2009 10:54 AM AIR ANALYST) Narrative 12/08/2009 10:54 AM AIR ANALYST [place], [place] ??[address] ?? Gastroenterology CSN: [id number] DATE OF SERVICE: ??12/08/2009 PROCEDURE PERFORMED 1. [...] again in a month. PLR:MEDQ ? DID: [id number] Dictated by: Louise Rizo MD ?? cc: Osman Plata MD Procedure Note Louise Rizo MD - 12/08/2009 10:53 AM CST [place], [place] [address] Gastroenterology CSN: [id number] DATE OF SERVICE: 12/08/2009 PROCEDURE PERFORMED 1. [...] my office again in a month. PLR:MEDQ DID:[id number] Dictated by: Louise Rizo MD cc: Osman Plata MD Louise Rizo MD GI PROCEDURE ORDERAB LES * STOOL CULTURE (12/08/2009 10:15 AM AIR ANALYST) PRELIMINARY REPORT No Salmonella isolated. No Shigella isolated. No Escherichia coli serogroup O157:H7 isolated. [facility] FINAL REPORT No Salmonella isolated. No Shigella isolated. No Escherichia coli serogroup O157:H7 isolated. No Campylobacter isolated. [facility] 12/08/2009 10:1 5 AM AIR ANALYST 12/08/2009 11:46 AM AIR ANALYST Narrative [facility] - 12/11/2009 8:12 AM AIR ANALYST SPECIMEN ENCLOSED Louise Rizo MD MICROBIOLOGY - GENER AL ORDERABLES Performing Organization Address [facility] Co de Phone Number [facility] CLIA# [id number] [address] [place], [place] [address] * CLOSTRIDIUM DIFFICILE TOXIN (12/08/2009 10:15 AM AIR ANALYST) FINAL REPORT NO Clostridium difficile Toxin A or B detected by EIA. A negative result does not rule out C. difficile associated diarrhea or colitis. [facility] 12/08/2009 10:1 5 AM AIR ANALYST 12/08/2009 11:46 AM AIR ANALYST Narrative [facility] - 12/08/2009 3:19 PM AIR ANALYST Specimen enclosed Louise Rizo MD MICROBIOLOGY - GENER AL ORDERABLES Performing Organization Address [facility] de Phone Number [facility] CLIA# [id number] [address] [place] [address] documented in this encounter Visit Diagnoses Not on filedocumented in this encounter Administered Medications Inactive Administered Medications - up to 3 most recent administrations Medication Order MAR Action Action Date Dose Rate Site lactated ringers solution IV, at 125 mL/hr, PRE-PROCEDURE CONTINUOUS, Starting on Mon12/08/09 at 0930, Until Mon12/09/09 at 0201, Routine New Bag 12/08/2009 9:30 AM AIR ANALYST 125 mL /hr documented in this encounter Active and Recently Administered Medications Times are shown in AIR ANALYST. Continuous Medication Order 12/06/2009 12/07/2009 12/08/2009 lactated ringers solution (CANCELED) IV, at 125 mL/hr, PRE-PROCEDURE CONTINUOUS, Starting on 12/08/09 at 0930, Until Mon12/09/09 at 0201, Routine 0930 (New Bag - Prov ider: Rajni Delvalle)1019 (Stopped - Provider: Dayana Miranda RN) documented in this encounter
--- OUTSIDE RECORDS SUMMARY | 2024-10-24 06:43 | XMS_ITS | Encounter Summary ---
Author Organization [facility] Address [address] [place] [address] Care Team Providers Care Executive Vice President And Chief Financial Officer Name Role Phone Jasile Freeman MD Primary [...] [facility] [place] [address] [place] [address] Kitty [place] ANP [address] [facility] [address] [place] [address] documented as of this encounter Visit Diagnoses Diagnosis Attention to ileostomy- Primary documented in this encounter Additional Health Concerns Infection Onset Date Last Indicated Resolved Time R/O C. diff 08/11/2022 08/10/2022 08/11/2022 2:45 PM CDT R/O C. diff 12/11/2022 12/09/2022 12/11/2022 1:26 PM UNIVERSITY RELATIONS DIRECTOR R/O C. diff 10/17/2024 10/17/2024 10/17/2024 6:55 PM UNIVERSITY RELATIONS DIRECTOR documented as of this encounter Care Teams Executive Vice President And Chief Financial Officer Relationship Specialty Start Date End Date Jasiel Freeman MD [address] [place] [address] PCP - General Family Practice 08/15/17 documented as of this encounter
--- OUTSIDE RECORDS SUMMARY | 2024-10-24 06:43 | XMS_ITS | Encounter Summary ---
Author Organization [facility] Address [address] [place] [address] Care Team Providers Care Oil Rag Washer Name Role Phone Martin Kelley MD Primary Care Provider [phone] Reason for Visit * Auth/Cert (Routine) - Closed Specialty Diagnoses / Procedures Referred By Contac t Referred To Contact Gastroenterology Procedures COLONOSCOPY [facility] [address] [place] [address] Referral ID Status Reason Start Date Expiration Date Visits Re quested Visits Authorized [id number] Closed 02/02/2012 02/01/2013 1 1 Encounter Details Date Type Department Care Team (Latest Contact Info) Description 02/16/2012 6:05 AM CDT - 02/16/2012 11:35 PM CDT Hospital Encounter [facility] [address] [place] [address] Louise Rizo MD NO ADDRESS [...] 02/16/2012 8:47 AM CDTAssociated Order(s): GI REPORT [place], [place] [address] Gastroenterology CSN: [id number] DATE OF SERVICE: 02/16/2012 PROCEDURE Flexible endoscopy [...] Ileal pouch anal anastomosis stricture. PLR:MEDQ DID: [id number] Dictated by: Louise Rizo MD cc: Martin Corral MD documented in this encounter OR Notes * OR Anesthesia - Stl Scanning, [facility] - 02/18/2012 4:59 PM CDT [...] Elkins Age: 41 y.o. Sex: male CSN: [id number] Procedure: Procedure(s): COLONOSCOPY Surgeons/Assistants: Surgeon(s) and Role: [...] COLONOSCOPY performed by LOUISE RIZO at [facility] History Substance Use Topics [...] Notes * Scanned Form - Stl Scanning, [facility] - 02/18/2012 4:59 PM CDT Electronically signed by Reggie [facility] Stl Chronometer Assembler And Adjuster Incoming at 02/18/2012 4:59 PM CDT * Scanned Form - Stl Scanning, [facility] - 02/18/2012 4:59 PM CDT Electronically signed by Reggie [facility] Stl Chronometer Assembler And Adjuster Incoming at 02/18/2012 4:59 PM CDT * Patient Instructions - Stl Scanning, [facility] - 02/18/2012 4:59 PM CDT Electronically signed by QuanDx [facility] Stl Chronometer Assembler And Adjuster Incoming at 02/18/2012 4:59 PM CDT documented in this encounter Plan of Treatment Upcoming Encounters Date Type Department Care Team (Late st Contact Info) Description 02/13/2025 10:30 AM CDT Office Visit [facility] [place] [address] [facility] [address] [place] [address] Kitty [place], ANP [address] [address] [place] [address] documented as of this encounter Procedures Procedure Name Priority Date/Time Associated Diagnosis Comments POUCHOSCOPY 02/16/2012 3:00 PM CDT SIGMOIDOSCOPY FLEXIBLE 2 3:00 PM CDT GI REPORT 02/16/2012 11:17 AM CDT PATHOLOGY Routine 02/16/2012 10:17 AM CDT documented in this encounter Results * GI REPORT (02/16/2012 11:17 AM CDT) Narrative Transcriptions Louise Rizo MD - 02/16/2012 8:47 AM CDT [place], [place] [address] Gastroenterology CSN: [id number] DATE OF SERVICE: 02/16/2012 PROCEDURE Flexible endoscopy [...] Pouchitis. Ileal pouch anal anastomosis stricture. PLR:MEDQ DID:[id number] Dictated by: Louise Rizo MD cc: Martin Corral MD Louise Rizo MD GI PROCEDURE ORDERAB LES * PATHOLOGY (02/16/2012 10:17 AM CDT) SURGICAL PATHOLOGY ?[facility] ?[address] [facility] ? [place], [place] ??[address] ? Patient: ??MUKUL ELKINS S ? : ??1970 ? Procedure Date: ??02/16/2012 ? Accession Date: ??02/16/2012 ? Case No: ??[id number] ? Ordering Dr: ??LOUISE RIZO ? Case type SW is performed by [facility], [address] [place] [address], ? [place], [place] ??[address]; all other case types are performed by [facility] ? [facility], [address] [facility] [address] [place], [place] ??[address] ?SURGICAL PATHOLOGY & NON-GYNECOLOGIC CYTOPATHOLOGY REPORT ? DIAGNOSIS ? SMALL INTESTINE, ILEAL POUCH, BIOPSIES: ? - ACTIVE ILEITIS (POUCHITIS) WITH MODERATE ACTIVITY. ? Specimen Description: ? Ileal pouch biopsy. ? Operative Procedure: ? Colonoscopy. ? Patient Information/Histo ry/Diagnosis: ? 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 ? Gross: ? Received in one container labeled Mukul Elkins., colon ileal pouch ? biopsy are eleven pieces of newman tissue ranging from 0.1 cm to 0.3 cm in ? greatest dimension. All are submitted in block A1. ? [facility] 02.16.2012 03:51 pm ? Microscopic: ? The slides are labeled Mukul Elkins and [id number]. ? The biopsies from the ileal pouch [...] FOR KATIE MICHELE M.D.- 02/17/12 07:26 pm [facility] 02/16/2012 10:1 7 AM CDT Louise Rizo MD PATHOLOGY/CYTOLOGY O RDERABLES Performing Organization Address City/State/[facility] Co de Phone Number [facility]# [id number] [address] [facility] [place] [address] documented in this encounter Visit Diagnoses Not [...] RN) documented in this encounter Care Teams Oil Rag Washer Relationship Specialty Start Date End Date Martin Kelley MD PCP - General Internal Medicine 02/16/12 08/14/17 documented as of this encounter
--- OUTSIDE RECORDS SUMMARY | 2024-10-24 06:43 | XMS_ITS | Encounter Summary ---
Author Organization [facility] Address [address] [place] [address] Care Team Providers Care Ring Stamper Name Role Phone Jasiel Freeman MD Primary [...] [facility] [place] [address] [facility] [address] [place] [address] Kitty Dover, MIRTA [address] [facility] [address] [place] [address] documented as of this encounter [...] MD HEMATOLOGY ORDERABLE S Performing Organization Address City/[facility] de Phone Number INTERFACE SYSTEM Refer to clinic/hospital department * (ABNORMAL) C-REACTIVE PROTEIN (06/26/2006 8:50 PM CDT) CRP 15.9(H) 0.0 - 0.8 mg/dL INTERFACE SYSTEM 06/26/2006 8:50 PM CDT Gertrude Yost MD CHEMISTRY ORDERABLES Performing Organization Address [facility] Co nm Phone Number INTERFACE SYSTEM Refer to clinic/hospital department documented in this encounter Visit Diagnoses Diagnosis Urinary tract infection, site not specified- Primary documented in this encounter Additional Health Concerns Infection Onset Date Last Indicated Resolved Time R/O C. diff 08/11/2022 08/10/2022 08/11/2022 2:45 PM CDT R/O C. diff 12/11/2022 12/09/2022 12/11/2022 1:26 PM SERVICE AGENT R/O C. diff 10/17/2024 10/17/2024 10/17/2024 6:55 PM SERVICE AGENT documented as of this encounter Care Teams Ring Stamper Relationship Specialty Start Date End Date Jasiel Freeman MD [address] [place] [phone] PCP - General Family Practice 08/15/17 documented as of this encounter
--- OUTSIDE RECORDS SUMMARY | 2024-10-24 06:43 | XMS_ITS | Encounter Summary ---
Author Organization [facility] Address [address] [place] [address] Care Team Providers Care Dorr Operator Name Role Phone Jasiel Freeman MD Primary Care Provider Encounter Details Date Type Department Care Team (Late st Contact Info) Description 02/27/2003 Outpatient Historical [facility] Willian Rioz MD NO ADDRESS ON FILE COMPLIC-DIGESTIVE SYSTEM [...] [facility] [place] [address] [facility] [address] [place] [address] Kitty Dover [facility]P [address] [facility] [address] [place] [address] documented as of this encounter Visit Diagnoses Diagnosis Digestive system complication- Primary documented in this encounter Additional Health Concerns Infection Onset Date Last Indicated Resolved Time R/O C. diff 08/11/2022 08/10/2022 08/11/2022 2:45 PM CDT R/O C. diff 12/11/2022 12/09/2022 12/11/2022 1:26 PM DITCH REPAIRER R/O C. diff 10/17/2024 10/17/2024 10/17/2024 6:55 PM DITCH REPAIRER documented as of this encounter Care Teams Dorr Operator Relationship Specialty Start Date End Date Jasiel Freeman MD [address] [place] [phone] PCP - General Family Practice 08/15/17 documented as of this encounter
--- OUTSIDE RECORDS SUMMARY | 2024-10-24 06:43 | XMS_ITS | Encounter Summary ---
Author Organization [facility] Address [address] [place] [address] Care Team Providers Care Packager Machine Name Role Phone Jasiel Freeman MD [...] [facility] [place] [address] [facility] [address] [place] [address] Kitty Dover ANP [address] [facility] [address] [place] [address] documented as of this encounter Visit Diagnoses Diagnosis Incisional hernia without mention of obstruction or gangrene- Primary documented in this encounter Additional Health Concerns Infection Onset Date Last Indicated Resolved Time R/O C. diff 08/11/2022 08/10/2022 08/11/2022 2:45 PM CDT R/O C. diff 12/11/2022 12/09/2022 12/11/2022 1:26 PM OVEREDGE MACHINE OPERATOR R/O C. diff 10/17/2024 10/17/2024 10/17/2024 6:55 PM OVEREDGE MACHINE OPERATOR documented as of this encounter Care Teams Packager Machine Relationship Specialty Start Date End Date Jasiel Freeman MD [address] [place] [phone] PCP - General Family Practice 08/15/17 documented as of this encounter
--- OUTSIDE RECORDS SUMMARY | 2024-10-24 06:43 | XMS_ITS | Encounter Summary ---
Author Organization [facility] Address [address] [place] [address] Care Team Providers Care Fashion Journalist Name Role Phone Jasiel Freeman MD Primary [...] [facility] [place] [address] [facility] [address] [place] [address] Kitty Dover ANP [address] [facility] [address] [place] [address] documented as of this encounter Visit Diagnoses Diagnosis Ulcerative colitis, unspecified- Primary documented in this encounter Additional Health Concerns Infection Onset Date Last Indicated Resolved Time R/O C. diff 08/11/2022 08/10/2022 08/11/2022 2:45 PM CDT R/O C. diff 12/11/2022 12/09/2022 12/11/2022 1:26 PM RATING SPECIALIST R/O C. diff 10/17/2024 10/17/2024 10/17/2024 6:55 PM RATING SPECIALIST documented as of this encounter Care Teams Fashion Journalist Relationship Specialty Start Date End Date Jasiel Freeman MD [address] [place] [phone] PCP - General Family Practice 08/15/17 documented as of this encounter
== END 2024-10-17 11:10 | disposition short-term general hospital (02) ==
PROVIDERS: Emergency Provider Emergency Medicine; PCP Family Medicine
DX: K56.0 Paralytic ileus (principal); K50.90 Crohn's disease, unspecified, without complications
CPT/HCPCS: 36415; 74177; 80053; 83605; 83690; 85025; 85610; 85730; 87040; 96374; 96375; 99284; J1885; J2270; J7030; Q9967